=== PATIENT | female | born 1970 | race African-American/Black ===

== ENCOUNTER 2021-02-22 07:36 | Outpatient (CLI) | payer OTHER, SELFPAY | END 2021-02-22 07:37 | disposition home or self-care (01) | LOC: ANHAUDIO 07:39 | PROVIDERS: Visit Provider Nurse Practitioner Family | DX: H91.90 Unspecified hearing loss, unspecified ear (principal) | CPT/HCPCS: 92537; 92540; 92546; 92557; 92567 ==

== ENCOUNTER 2024-09-20 11:52 | Outpatient (CLI) | payer MEDICARE, MEDICAID, SELFPAY ==
--- NOTE | ~2024-09-20 | XR_ITS ---
Lumbosacral Spine: AP and lateral views Clinical History: Pain Findings: The normal lordotic curve is maintained. The vertebral bodies and posterior elements are i ntact. The intervertebral disc spaces are preserved. There is mild to moderate facet arthropathy at the lower lumbar spine. The sacroiliac joints are normally outlined. Impression: Facet arthropathy at the lower lumbar spine, as above. Reviewed, dictated and finalized at location . Impression: Facet arthropathy at the lower lumbar spine, as above.
--- OUTSIDE RECORDS SUMMARY | 2024-09-20 11:58 | XMS_ITS | Encounter Summary ---
Author Organization [facility] Address [address] [place] [address] Phone Care Team Providers Care Mammographer Name Role Phone Jackeline Dimas PROSTHETIC AIDES TEACHER, CORPORATE STRATEGY ASSOCIATE Primary Care Provider Fiona Martinez REVOLVING INVENTORY CLERK Unavailable Unavailab Phil Ellis MD Unavailable [phone] Rajiv Mccormack NP Unavailable Unavailable Renita Quezada RN Unavailable Unavailable Alize Acosta PROSTHETIC AIDES TEACHER, CORPORATE STRATEGY ASSOCIATE Unavailable [phone] Dayo Chaney MD Unavailable Juanita Hauser RN Unavailable Unavaila David Martinez MD Unavailable Emilia Tang MD Primary Care Provider [phone] Maurilio Farley MD Unavailable Candida Turner MD Unavailable Rebeka Trinidad MD Primary Care Provider + [phone] Dom Quiñonez MD Unavailable Rachelle Nava PROSTHETIC AIDES TEACHER, SHEET METAL FORMER Unavailable + [phone] Irais Naylor PROSTHETIC AIDES TEACHER, CORPORATE STRATEGY ASSOCIATE Unavailable + [phone] AhmetAngélicamando Littlejohn PROSTHETIC AIDES TEACHER, CORPORATE STRATEGY ASSOCIATE Primary Care Provider + [phone] Rebeka Trinidad MD Primary Care Provider + [phone] Lorri Leo PROSTHETIC AIDES TEACHER, CORPORATE STRATEGY ASSOCIATE Primary Care Provider [phone] Sharri Gaspar MD Unavailable Tani Biggs [facility] Primary Care Provider + [phone] Amber Aldrich PROSTHETIC AIDES TEACHER, CORPORATE STRATEGY ASSOCIATE Unavailable Reason for Visit * Reason Comments Medication Refill Encounter Details Date Type Department Care Team (Late Contact Info) Description 07/09/2020 Refill [facility] Primary [facility] - [place] [address] [place] [address] Jackeline Dimas, PROSTHETIC AIDES TEACHER, [facility] [address] [place] [address] Medication Refill Social History Tobacco Use Types Packs/Day Years Used Date Smoking Tobacco: Every Day Cigarettes 0.5 15 Smokeless Tobacco: Never Alcohol Use Standard Drinks/Week Comments Yes 0 (1 standard drink = 0.6 oz pur e alcohol) occasionally PHQ-2 Answer Date Recorded Total Score - Questions 1-9 0 08/09 Comments No Sex and Gender Information Value Date Recorded Sex Assigned at Female 10/21/2022 4:24 PM CDT Legal Sex Female 10:38 PM CDT Gender Identity Female 10/21/2022 4:24 PM CDT Sexual Orientation Not on file 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 No / Unsure 06/19/2020 1:57 PM CDT documented as of this encounter Plan of Treatment Upcoming Encounters Date Type Department Care Team (Late Contact Info) Description 09/21/2024 3:20 PM CDT Office Visit [facility] Oncology Services [address] [place] [id number] Melony Asif, ESTRELLITA [address] [place] [address] Discharge Disposition: Discharged to home or Selfcare 10/18/2024 1:00 PM CDT Office Visit [facility] - Pulmonology & Sleep Medicine - [place] [address] [place] [phone] Dom Quiñonez MD [address] [place] [address] 10/26/2024 1:00 PM CDT Office Visit [facility] - Cardiology - [place] [address] [place] [address] Amber Aldrich, PROSTHETIC AIDES TEACHER, CORPORATE STRATEGY ASSOCIATE [address] [place] [phone] 11/09/2024 2:00 PM CDT Telemedicine [facility] [address] [place] [address] Alize Acosta, PROSTHETIC AIDES TEACHER, CORPORATE STRATEGY ASSOCIATE [address] [place] [address] 11/18/2024 3:45 PM CDT Office Visit [facility] - Endocrinology - [place] [address] [place] [address] David Salmon MD [address] [address] 03/04/2025 3:10 PM TRANSPORTATION OFFICER Lab [facility] - Primary Care - [place] [facility] [place] [address] [place] [facility] 03/04/2025 3:30 PM TRANSPORTATION OFFICER [facility] - [facility] - [place] [address] [place] [address] Tani Biggs PAC [address] [place] [address] documented as of this encounter Visit Diagnoses Not on filedocumented in this encounter Additional Health Concerns Infection Onset Date Last Indicated Resolved Time COVID - 19 01/08/2021 01/08/2021 01/28/2021 12:1 6 AM TRANSPORTATION OFFICER COVID - 19 03/12/2021 03/12/2021 04/01/2021 12:1 6 AM TRANSPORTATION OFFICER COVID - 19 12/15/2021 12/15/2021 12/15/2021 7:26 PM CDT COVID - 19 Confirmed 12/15/2021 12/15/2021 022 12:16 AM CDT COVID - 19 04/18/2024 04/18/2024 04/18/2024 10:4 7 PM TRANSPORTATION OFFICER Respiratory Rule-Out 05/06/2024 05/06/2024 025 9:20 AM TRANSPORTATION OFFICER COVID - 19 05/06/2024 05/06/2024 05/06/2024 9:19 AM TRANSPORTATION OFFICER Assessment Noted Time PHQ-9 Depression Total Score: 0 09/01/19 20 11:58 AM CDT documented as of this encounter Care Teams Mammographer Relationship Specialty Start Date End Date Jackeline Dimas, PROSTHETIC AIDES TEACHER, CORPORATE STRATEGY ASSOCIATE [address] [place] [address] PCP - General Advanced Practice Nurse 07/31/17 Emilia Tang MD [address] [place], [place] [id number] PCP - General Family Medicine 06/07/22 03/25/23 Rebeka Trinidad MD [address] [place] [address] PCP - General Family Medicine 03/26/23 03/29/24 Lorri Leo APRN, CORPORATE STRATEGY ASSOCIATE [address] [place] [address] PCP - General Certified Nurse Practitioner 03/30/24 04/20/24 Rebeka Trinidad MD [address] [place] [address] PCP - General Family Medicine 04/21/24 04/21/24 Lorri Leo APRN, CORPORATE STRATEGY ASSOCIATE [address] [place] [address] PCP - General Certified Nurse Practitioner 04/22/24 05/30/24 Tani Biggs PAC [address] [place] [phone] PCP - General Physician Design Agent 05/31/24 Fiona Martinez LSW [place] Sales And Customer Relations Rep 03/01/21 08/23/21 Phil Jacobo MD [address] [place] [address] Consulting Physician Neurology 03/07/21 Rajiv Mccormack, INSTRUCTIONAL RESOURCE TEACHER [address] [place] [address] Nurse Practitioner Gastroenterology 03/07/21 Renita Quezada RN [place] Sales And Customer Relations Rep 05/09/21 08/23/21 Alize Acosta, PROSTHETIC AIDES TEACHER, CORPORATE STRATEGY ASSOCIATE [address] [place] [address] [facility] AIRCRAFT LANDING GEAR INSPECTOR Advanced Practice Nurse 08/30/21 Dayo Chaney MD [address] [place] [address] Tennis Director Cardiovascular Disease - Cardiology 09/20/21 02/12/24 Juanita Mercado RN [place] Registered Nurse Cardiology 12/24/21 02/12/24 David Salmon MD [address] [phone] Consulting Physician Endocrinology 01/15/22 Maurilio Farley MD [address] [address] Consulting Physician Colon and Rectal Surgery 09/20/22 Physician, Candida Davis MD [address] [place] [address] Family Medicine 01/25/22 03/18/23 Dom Quiñonez MD [address] [place] [phone] Consulting Physician Pulmonary Disease 11/19/21 Rachelle Nava, PROSTHETIC AIDES TEACHER, SHEET METAL FORMER [address] [place] [address] Nurse Practitioner Advanced Practice Nurse 07/19/22 Irais Naylor PROSTHETIC AIDES TEACHER, CORPORATE STRATEGY ASSOCIATE [address] [facility] [address] [place] [address] Nurse Practitioner Cardiology 06/27/23 07/29/24 Sharri Gaspar MD [address] [facility] [place] [address] Consulting Physician Cardiology 04/26/24 Amber Aldrich APRN, CORPORATE STRATEGY ASSOCIATE [address] [place] [address] Nurse Practitioner Cardiology 07/30/24 documented as of this encounter
--- OUTSIDE RECORDS SUMMARY | 2024-09-20 11:58 | XMS_ITS | Encounter Summary ---
Author Organization [facility] Address [address] [place] [address] Phone Care Team Providers Care Tool And Die Maker/Designer Name Role Phone Phil Jacobo MD Unavailable [phone] Rajiv Mccormack NP Unavailable Unavailable Alize Acosta APRN, JACKER Unavailable David Salmon MD Unavailable Maurilio Farley MD Unavailable Dom Quiñonez MD Unavailable Rachelle Nava TASSEL MAKER, INTERVENTION ANALYST Unavailable + [phone] Irais Naylor TASSEL MAKER, JACKER Unavailable + [phone] Lorri Leo APRN, JACKER Primary Care Provider + [phone] Rebeka Trinidad MD Primary Care Provider + [phone] Lorri Leo TASSEL MAKER, JACKER Primary Care Provider + [phone] Sharri Gaspar MD Unavailable Tani Biggs PAC Primary Care Provider [phone] Amber Aldrich TASSEL MAKER, JACKER Unavailable Reason for Referral * PT/OT/ST (Routine) - Open Specialty Diagnoses / Procedures Referred By Harika t Referred To Contact Physical Therapy Diagnoses Spinal stenosis, lumbar region without neurogenic claudication Li Castañeda APN, JACKER [address] [place] [address] Phone: tel: fax: [facility] [address] [facility], [address] [address] Phone: tel: fax: Referral ID Status Reason Start Date Expiration Date Visits Re quested Visits Authorized [id number] Open 04/08/2024 50 10 Scheduling Instructions RVISOR DELIVERY DEPARTMENT Encounter Details Date Type Department Care Team (Latest Contact Info) Description 04/08/2024 Transcribe Orders [facility] [address] [place] [id number] Li Castañeda APN, JACKER [address] [place] [address] Spinal stenosis, lumbar region without neurogenic claudication (Primary Dx) Social History Tobacco Use Types Packs/Day Years Used Date Smoking Tobacco: Every Day Cigarettes 1 37.1 Started: 1984; Last attempted to quit: 04/12/2021 Smokeless Tobacco: Never Alcohol Use Standard Drinks/Week Comments Not Currently 0 (1 standard drink = 0.6 oz pur e alcohol) Last drink in 2020 [facility] Utilities Answer Date Recorded In the past 12 months has [employer], gas, oil, or water Shock Treatment Management threatened to shut off services in your home? No 03/22/2024 Social Connection and Isolation Panel Answer Date Recorded In a typical week, how many times do you talk on the phone with family, friends, or neighbors? Once a week 03/22/19 How often do you get togethe r with friends or relatives? Never 03/22/2024 How often do you attend chur ch or alevism services? 1 to 4 times per year 03/22/2024 Do you belong to any clubs o r organizations such as mosque groups, unions, fraternal or athletic groups, or school groups? No 03/22/2024 How often do you attend meet ings of the clubs or organizations you belong to? Never 03/22/2024 Are you , , di vorced, , never , or living with a partner? 03/22/2024 AUDIT-C Answer Date Recorded Q1: How often do you have a drink containing alcohol? Never 03/22/2024 Q2: How many drinks containi ng alcohol do you have on a typical day when you are drinking? Patient does not drink Q3: How often do you have si x or more drinks on one occasion? Never 03/22/2024 Overall Financial Resource Strain (CARDIA) Answe r Date Recorded How hard is it for you to pa y for the very basics like food, housing, medical care, and heating? Very hard 03/22/2024 PHQ-2 Answer Date Recorded Total Score - Questions 1-9 21 03/10 [facility] - Occupational Stress Questionnaire Answer Date Recorded Do you feel stress - tense, restless, nervous, or anxious, or unable to sleep at night because your mind is troubled all the time - these days? Very much 03/22/2024 Exercise Vital Sign Answer Date Recorde d On average, how many days pe r week do you engage in moderate to strenuous exercise (like a brisk walk)? 7 days 03/22/2024 On average, how many minutes do you engage in exercise at this level? 20 min 03/22/2024 Hunger Vital Sign Answer Date Recorded Within the past 12 months, y ou worried that your food would run out before you got the money to buy more. Often true 03/22/19 25 Within the past 12 months, t he food you bought just didn't last and you didn't have money to get more. Often true 03/22/2024 PRAPARE - Transportation Answer Date Re corded In the past 12 months, has l ack of transportation kept you from medical appointments or from getting medications? Yes 03/10 In the past 12 months, has l ack of transportation kept you from meetings, work, or from getting things needed for daily living? Yes 03/22/2024 Housing Stability Vital Sign Answer Jovany e Recorded In the last 12 months, was t here a time when you were not able to pay the mortgage or rent on time? Yes 03/24/2023 In the last 12 months, how many places have you lived? 1 03/24/2023 In the last 12 months, was t here a time when you did not have a steady place to sleep or slept in a halfway (including now)? No 03/24/2023 Housing Stability Vital Sign Answer Jovany e Recorded In the last 12 months, was t here a time when you were not able to pay the mortgage or rent on time? Yes 03/22/2024 In the past 12 months, how m any times have you moved where you were living? 0 03/22/2024 At any time in the past 12 m [facility], were you homeless or living in a halfway (including now)? No 03/22/2024 Education Answer Date Recorded What is the highest level of school you have completed or the highest degree you have received? 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 [employer] Not on file Not on file Not on file documented as of this encounter Plan of Treatment Upcoming Encounters Date Type Department Care Team (Late st Contact Info) Description 09/21/2024 3:20 PM CDT [facility] [address] [place] [id number] Melony Asif Stacey, PAC [address] [place] [address] Discharge Disposition: Discharged to home or Selfcare 10/18/2024 1:00 PM CDT Office Visit [facility] - Pulmonology & [facility] Medicine - [address] [place] [phone] Dom Quiñonez MD [address] [place] [address] 10/26/2024 1:00 PM CDT [facility] [address] [place] [address] Amber Aldrich, TASSEL MAKER, JACKER [address] [place] [address] 11/09/2024 2:00 PM CDT Telemedicine [facility] [address] [place] [address] Alize Acosta, TASSEL MAKER, JACKER [address] [place] [address] 11/18/2024 3:45 PM CDT Office Visit [facility] - Endocrinology - [address] [place] [address] David Salmon MD [address] [address] 03/04/2025 3:10 PM SUPERVISOR DELIVERY DEPARTMENT Lab [facility] Primary Care - [place] [address] [place] [address] [place] Colon [facility] 03/04/2025 3:30 PM SUPERVISOR DELIVERY DEPARTMENT Office Visit [facility] Primary [facility] - [place] [address] [place] [address] Tani Biggs PAC [address] [place] [address] Scheduled Referrals Name Type Priority Associated Diagnoses Orde r Schedule PHYSICAL THERAPY REFERRAL Outpatient Referral Routine Spinal stenosis, lumbar region without neurogenic claudication Expected: 04/08/2024, Expires: 04/08/2025 documented as of this encounter Goals Goal Patient Goal Type Associated Problems Recent Progress Patient-Stated? Author ACTIVITY Activity No change(08/08 2:42 PM CDT) Yes Maritza Vanegas RN Note: Bonny will walk five days a week. Goal Reviewed with: Bonny Readiness to change: Department associated with goal: [facility] Steps to achieve goal: Walking 5 days a week I want to be able to be around people and feel less depressed. Behavioral Health Worsening(0 09/22/2023 3:12 PM CDT) Yes Hilda Tinajero [facility] Note: Goal/Objective: Decrease symptoms of depression and anxiety. Anticipated Time Frame for Goal Completion: 3 months Goal Reviewed with: patient Readiness to change: Thinking about making a change Department associated with goal: [facility] Steps to achieve goal: will attend counseling/psychotherapy sessions at least once monthly, at least 6 sessions, utilizing individual and/or group sessions to express thoughts and feelings. to identify, verbalize and process at least three contributing factors/triggers to anxiety and depression. to identify and verbalize at least three actions/skills to prevent and/or cope with anxiety and depression. to put into action, at least one time weekly, for one month, an action/skill to prevent and or cope with anxiety and depression. Chronic Disease Management Chronic Disease Management Improving(0 12/08/2023 2:39 PM CDT) No Renita Quezada RN Note: Goal: To manage my high blood pressure with medications and lower salt intake to prevent any setbacks. Anticipated Completion Date: August Patient's Preferred Goal: Standard Challenges/Barriers: Not watching salt intake. Readiness to change: Thinking about making a change Notify Care Team if: You develop a severe headache, nosebleed, dizziness, confusion, or drowsiness. You have chest pain/discomfort or shortness of breath. Your BP has been running high consistently. Short Term Goals: 1. I will take my Cardizem, Losartan, and Lasix as directed by my doctor. 2. I will report any symptoms of high blood pressure to my doctor as listed above. 3. I will decrease my salt (sodium) intake in my diet and avoid adding salt to my foods. 4. I will avoid processed foods and fried foods. 5. I will follow up with my doctors as recommended. Chronic Disease Management Chronic Disease Management On track(12/21 2:27 PM CDT) Xiomy Gunderson, RN Note: Goal: To effectively manage hypertension at <130/80 to reduce risk of ED usage and hospitalization [facility] Provider Review date: 02/06/23 Challenges/Barriers: Lack of Education Readiness to change: Ready to change Notify Care Team if: If systolic (top number) blood pressure is greater than 150 Any vision changes such as blurry or double vision; any headaches, any chest pain High blood pressure increases your risk of stroke: signs and symptoms of stroke such as: Sudden onset of numbness, tingling, weakness, or loss of movement on one side Sudden vision changes; trouble speaking, confusion Short Term Goals: I will check my blood pressure daily, and record my results in my tablet I will take my blood pressure and heart medications daily and as needed as ordered by my provider I will not add salt to my plated food. I will not eat foods that have a lot of salt. These include olives, pickles, smoked meats, and salted potato chips. I will limit how much caffeine I get in my diet. I will switch to caffeine-free products. I will reduce my weight by increasing exercise to 20 minutes at least twice a day, three times a week. I will eat fruits and vegetables at least twice a day I will reduce my salt intake by reading food labels and selecting reduced sodium labeled items that have 140 mg or less per serving I will keep my lipids at goal LDL <70 I will engage with healthy diet/exercise/sleep I will reduce stress by increasing activity Chronic Disease Management Chronic Disease Management Worsening(0 08/30/2024 1:58 PM CDT) Xiomy Gunderson RN Note: Goal: To manage my chronic heart failure by taking my medications, making healthy choices, and monitoring my vital signs to avoid ED use and hospitalization for heart failure [facility] Provider Review Date: 09/23/23 Challenges/Barriers: Lack of Education Readiness to change: Ready to change Notify Care Team if: I become shorter of breath with exertion or rest. I gain more than 3 lbs. in 1 day, and 5 lbs. in a week. Shortness of breath that wakes you up at night or when you are laying down. Shortness of breath that wakes you up at night or when you are laying down Short Term Goals: I will take my heart failure medications daily and as needed as my provider has ordered I will weigh myself daily at the same time, in the same clothes, and record my results in my tablet I will check my body daily for increased swelling and tightness, and if swollen more than usual, I will call my [facility] nurse. I will avoid NSAIDs (ibuprofen, Naproxen, Aleve, Advil, Motrin, Celebrex, Vioxx, Meloxicam) I will maintain a healthy weight I will avoid alcohol I will follow a 2000mg Low Sodium diet Depression Depression Improving(0 03/15/2022 2:27 PM SUPERVISOR DELIVERY DEPARTMENT) No Breanne Saldana, BOAT CLEANING SUPERVISOR Note: Goal/Objective: Decrease symptoms of depression associated with grief and loss as well as the increase of anxiety and panic with follow up with out patient counseling. Anticipated Time Frame for Goal Completion: 2 week Constipation General Improving(0 12/08/2023 2:41 PM CDT) Yes Xiomy Linda, RN Note: She has taken Senna, Colace, and Miralax (1 capful daily)--all daily for the past week and no bowel movement in the past 4 days. Recommended she increase her Miralax to 2 capfuls daily until she starts having regular bowel movements and then can titrate back if needed Advanced Care Goals Goal: I will decrease my risk of constipation by eating more fiber, increasing my activity, taking my medications, and avoiding dehydrating drinks. Provider Review Date: 02/06/23 Challenges/Barriers: I continue to be constipated though I take my medications for constipation Readiness to change: Ready to change Notify Care Team if: I see blood in my stool, I am losing weight unintentionally, I have constipation lasting more than 3 weeks, or I have severe pain outside of my baseline when having bowel movements Short Term Goals: I will eat a well balanced diet with lots of fiber- fruits, vegetables, legumes d whole grain breads and cereals. - Fiber and water help the colon pass stool. Most of the fiber in fruits is found in the skins, such as apples. Fruits with seeds you can eat, like strawberries, have the most fiber. I will exercise regularly by doing at least 15 minutes of either chair exercises or walking 3 times a day. I will avoid caffeine containing drinks and alcohol, which can cause dehydration. I will continue to take Miralax daily increasing my amount to 2 capfuls daily until I start having regular bowel movements, and then I can reduce back to 1 capful once my bowel movements are regular. 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 [facility] Program Engagement Healthy Lifestyle Improving(0 08/16/2024 1:04 PM CDT) No Meli Rosenthal, RN Note: Goal: monitor vitals 3 times per week and if symptomatic with [facility] supplied equipment Anticipated Completion Date: duration of program enrollment Patient's Preferred Goal: Standard Challenges/Barriers: technical issues Readiness to change: Making a change Notify Care Team if: technical issues arise Short Term Goals: monitor vitals 3 times per week and if symptomatic with [facility] supplied equipment 2000mg Sodium Daily Sodium Intake On track(08/24 2:42 PM CDT) No Xiomy Linda, SEBASTIAN Note: Goal: I will reduce my sodium intake by following a low sodium diet [facility] Provider Review Date: 02/06/23 Challenges/Barriers: Lack of Education Readiness to change: Ready to change Notify Care Team if: If systolic (top number) blood pressure is greater than 150 Any vision changes such as blurry or double vision; any headaches, any chest pain High blood pressure increases your risk of stroke: signs and symptoms of stroke such as: Sudden onset of numbness, tingling, weakness, or loss of movement on one side Sudden vision changes; trouble speaking, confusion Short Term Goals: I will read food labels for the amount of sodium also known a salt per serving I will choose foods that have less than 140 mg of sodium in each serving I will not eat more than 2,000 mg of sodium in a day I will look for foods that are labeled as sodium free. very low sodium or low sodium I will avoid adding salt when cooking by using salt free seasonings, spices, and herbs I will check the label of seasoning mixes to make sure they do not contain salt. I will limit my intake of processed, canned, or prepackaged foods as many of these foods are high I sodium which is salt. documented as of this encounter Visit Diagnoses Diagnosis Spinal stenosis, lumbar region without neurogenic claudication- Primary documented in this encounter Additional Health Concerns Infection Onset Date Last Indicated Resolved Time COVID - 19 04/18/2024 04/18/2024 04/18/2024 10:4 7 PM SUPERVISOR DELIVERY DEPARTMENT Respiratory Rule-Out 05/06/2024 05/06/2024 025 9:20 AM SUPERVISOR DELIVERY DEPARTMENT COVID - 05/06/2024 05/06/2024 05/06/2024 9:19 AM SUPERVISOR DELIVERY DEPARTMENT Assessment Noted Time PHQ-9 Depression Total Score: 21 025 4:05 PM SUPERVISOR DELIVERY DEPARTMENT documented as of this encounter Care Teams Tool And Die Maker/Designer Relationship Specialty Start Date End Date Lorri Leo APRN, JACKER [address] [place] [address] PCP - General Certified Nurse Practitioner 03/30/24 04/20/24 Rebeka Trinidad MD [address] [place] [address] PCP - General Family Medicine 04/21/24 04/21/24 Lorri Leo APRN, JACKER [address] [place], [place] [id number] PCP - General Certified Nurse Practitioner 04/22/24 05/30/24 Tani Biggs, PAC [address] [place] [address] PCP - General Physician Registered Representative 05/31/24 Phil Jacobo MD [address] [place] [address] Consulting Physician Neurology 03/07/21 Rajiv Mccormack, OPERATOR [address] [place] [address] Nurse Practitioner Gastroenterology 03/07/21 Alize Acosta APRN, JACKER [facility] [place] [address] [facility] ([facility] VISITOR SERVICES ASSOCIATE Advanced Practice Nurse 08/30/21 David Salmon MD [address] [address] Consulting Physician Endocrinology 01/15/22 Maurilio Farley MD [address] [id number] Consulting Physician Colon and Rectal Surgery 09/20/22 Dom Quiñonez MD [address] [place] [address] Consulting Physician Pulmonary Disease 11/19/21 Rachelle Nava APRN, INTERVENTION ANALYST [address] [facility] [address] Nurse Practitioner Advanced Practice Nurse 07/19/22 Irais Naylor APRN, JACKER [address] [facility] [address] [place] [address] Nurse Practitioner Cardiology 06/27/23 07/29/24 Sharri Gaspar MD [address] [place] [address] Consulting Physician Cardiology 04/26/24 Amber Aldrich APRN, JACKER [address] [facility] [place] [address] Nurse Practitioner Cardiology 07/30/24 documented as of this encounter
--- OUTSIDE RECORDS SUMMARY | 2024-09-20 11:58 | XMS_ITS | Encounter Summary ---
Author Organization [facility] Address [address] [place] [address] Phone Care Team Providers Care Landfill Grader Name Role Phone Jackeline Dimas SUPPLY CHAIN TECHNICIAN, CORPORATE PHYSICAL SECURITY SUPERVISOR Primary Care Provider Fiona Martinez PHOTOSTATIC COPY MAKER Unavailable Unavailab Phil Ellis MD Unavailable [phone] Rajiv Mccormack NP Unavailable Unavailable Renita Quezada RN Unavailable Unavailable Alize Acosta SUPPLY CHAIN TECHNICIAN, CORPORATE PHYSICAL SECURITY SUPERVISOR Unavailable [phone] Dayo Chaney MD Unavailable Juanita Hauser RN Unavailable Unavaila David Martinez MD Unavailable Emilia Tang MD Primary Care Provider [phone] Maurilio Farley MD Unavailable Candida Turner MD Unavailable Rebeka Trinidad MD Primary Care Provider + [phone] Dom Quiñonez MD Unavailable Rachelle Nava SUPPLY CHAIN TECHNICIAN, SENIOR SQL SERVER DBA Unavailable + [phone] Irais Naylor SUPPLY CHAIN TECHNICIAN, CORPORATE PHYSICAL SECURITY SUPERVISOR Unavailable + [phone] Lorri Leo Annetta SUPPLY CHAIN TECHNICIAN, CORPORATE PHYSICAL SECURITY SUPERVISOR Primary Care Provider + [phone] Rebeka Trinidad MD Primary Care Provider [phone] AhmetAngélicamando Littlejohn SUPPLY CHAIN TECHNICIAN, CORPORATE PHYSICAL SECURITY SUPERVISOR Primary Care Provider [phone] Sharri Gaspar MD Unavailable Tani Biggs [facility] Primary Care Provider + [phone] Amber Aldrich SUPPLY CHAIN TECHNICIAN, CORPORATE PHYSICAL SECURITY SUPERVISOR Unavailable Reason for Visit * Reason Comments Medication Refill Encounter Details Date Type Department Care Team (Late st Contact Info) Description 07/12/2020 Refill [facility] - [facility] - [place] [address] [place] [address] Jackeline Dimas, SUPPLY CHAIN TECHNICIAN, [facility] [address] [place] [address] Medication Refill Social History Tobacco [...] 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 No / Unsure 06/19/2020 1:57 PM CDT documented as of this encounter Miscellaneous Notes * Telephone Encounter - Yesi Sheth RN - 07/12/2020 9:21 AM CDT Medication approved and signed per standing order protocol. documented in this encounter Plan of Treatment Upcoming Encounters Date Type Department Care Team (Late st Contact Info) Description 09/21/2024 3:20 PM CDT [facility] [address] [place] [address] Melony Asif Stacey, PAC [address] [place] [address] Discharge Disposition: Discharged to home or Selfcare 10/18/2024 1:00 PM CDT Office Visit [facility] - Pulmonology & Sleep Medicine [facility] [address] [place] [address] Dom Quiñonez MD [address] [place] [address] 10/26/2024 1:00 PM CDT Office Visit [facility] - Cardiology - [place] [address] [place] [address] Amber Aldrich APRN, CORPORATE PHYSICAL SECURITY SUPERVISOR [address] [place] [address] 11/09/2024 2:00 PM CDT Telemedicine [facility] [address] [place] [address] Alize Acosta, SUPPLY CHAIN TECHNICIAN, CORPORATE PHYSICAL SECURITY SUPERVISOR [address] [place] [address] 11/18/2024 3:45 PM CDT Office Visit [facility] - Endocrinology - [place] [address] [place] [address] David Salmon MD #[address] [address] 03/04/2025 3:10 PM INVESTMENT BANKING ASSOCIATE [facility] [place] [address] [place] [address] [facility], [facility] 03/04/2025 3:30 PM INVESTMENT BANKING ASSOCIATE [facility] [place] [address] [place] [address] Tani Biggs PAC [address] [place] [address] documented as of this encounter Visit Diagnoses Not on filedocumented in this encounter Additional Health Concerns Infection Onset Date Last Indicated Resolved Time COVID - 19 01/08/2021 01/08/2021 01/28/2021 12:1 6 AM INVESTMENT BANKING ASSOCIATE COVID - 19 03/12/2021 03/12/2021 04/01/2021 12:1 6 AM INVESTMENT BANKING ASSOCIATE COVID - 19 12/15/2021 12/15/2021 12/15/2021 7:26 PM CDT COVID - 19 Confirmed 12/15/2021 12/15/2021 022 12:16 AM CDT COVID - 19 04/18/2024 04/18/2024 04/18/2024 10:4 7 PM INVESTMENT BANKING ASSOCIATE Respiratory Rule-Out 05/06/2024 05/06/2024 025 9:20 AM INVESTMENT BANKING ASSOCIATE COVID - 19 05/06/2024 05/06/2024 05/06/2024 9:19 AM INVESTMENT BANKING ASSOCIATE Assessment Noted Time PHQ-9 Depression Total Score: 0 09/01/19 20 11:58 AM CDT documented as of this encounter Care Teams Landfill Grader Relationship Specialty Start Date End Date Jackeline Dimas, SUPPLY CHAIN TECHNICIAN, CORPORATE PHYSICAL SECURITY SUPERVISOR [address] [place] [address] PCP - General Advanced Practice Nurse 07/31/17 Emilia Tang MD [address] [place] [address] PCP - General Family Medicine 06/07/22 03/25/23 Rebeka Trinidad MD [address] [place] [address] PCP - General Family Medicine 03/26/23 03/29/24 Lorri Loe APRN, CORPORATE PHYSICAL SECURITY SUPERVISOR [address] [place] [address] PCP - General Certified Nurse Practitioner 03/30/24 04/20/24 Rebeka Trinidad MD [address] [place] [address] PCP - General Family Medicine 04/21/24 04/21/24 Lorri Leo APRN, CORPORATE PHYSICAL SECURITY SUPERVISOR [address] [place] [address] PCP - General Certified Nurse Practitioner 04/22/24 05/30/24 Tani Biggs PAC [address] [place] [address] PCP - General Physician Hvac Tech 05/31/24 Fiona Martinez, PHOTOSTATIC COPY MAKER [place] Marketing Budget Analyst 03/01/21 08/23/21 Phil Jacobo MD [address] [place] [address] Consulting Physician Neurology 03/07/21 Rajiv Mccormack, RE RECORDING MIXER [address] [place] [address] Nurse Practitioner Gastroenterology 03/07/21 Renita Quezada, RN [place] Marketing Budget Analyst 05/09/21 08/23/21 Alize Acosta, SUPPLY CHAIN TECHNICIAN, CORPORATE PHYSICAL SECURITY SUPERVISOR [address] [place] [address] Virtual [facility] (VAC) HEALTH AND WELLNESS COORDINATOR Advanced Practice Nurse 08/30/21 Dayo Chaney MD [address] [place] [address] Milk Route Supervisor Cardiovascular Disease - Cardiology 09/20/21 02/12/24 Juanita Mercado RN [place] Registered Nurse Cardiology 12/24/21 02/12/24 David Salmon MD #[address] [phone] Consulting Physician Endocrinology 01/15/22 Maurilio Farley MD #[address] [address] Consulting Physician Colon and Rectal Surgery 09/20/22 Physician, Candida Davis MD [address] [place] [address] Family Medicine 01/25/22 03/18/23 Dom Quiñonez MD [address] [place] [address] Consulting Physician Pulmonary Disease 11/19/21 Rachelle Nava, SUPPLY CHAIN TECHNICIAN, SENIOR SQL SERVER DBA [address] [place] [address] Nurse Practitioner Advanced Practice Nurse 07/19/22 Irais Naylor APRN, CORPORATE PHYSICAL SECURITY SUPERVISOR [address] [facility], [facility] [address] [place] [address] Nurse Practitioner Cardiology 06/27/23 07/29/24 Sharri Gaspar MD 2 [facility] [place] [facility], [place] [place] [address] Consulting Physician Cardiology 04/26/24 Amber Aldrich APRN, CORPORATE PHYSICAL SECURITY SUPERVISOR [address] [facility] [place] [address] Nurse Practitioner Cardiology 07/30/24 documented as of this encounter
--- OUTSIDE RECORDS SUMMARY | 2024-09-20 11:58 | XMS_ITS | Encounter Summary ---
Author Organization [facility] Address [address] [place] [address] Phone Care Team Providers Care Digital Media Associate Name Role Phone Phil Jacobo MD Unavailable [phone] Rajiv Mccormack NP Unavailable Unavailable Alize Acosta COMPUTER EDUCATION TEACHER, VICE PRESIDENT TALENT MANAGEMENT Unavailable [phone] David Salmon MD Unavailable Maurilio Farley MD Unavailable Dom Quiñonez MD Unavailable Rachelle Nava COMPUTER EDUCATION TEACHER, AGRICULTURAL CONSULTANT Unavailable + [phone] Irais Naylor COMPUTER EDUCATION TEACHER, VICE PRESIDENT TALENT MANAGEMENT Unavailable + [phone] Rebeka Trinidad MD Primary Care Provider + [phone] Lorri Leo COMPUTER EDUCATION TEACHER, VICE PRESIDENT TALENT MANAGEMENT Primary Care Provider + [phone] Sharri Gaspar MD Unavailable Tani Biggs PAC Primary Care Provider [phone] Amber Aldrich COMPUTER EDUCATION TEACHER, VICE PRESIDENT TALENT MANAGEMENT Unavailable Encounter Details Date Type Department Care Team (Late st Contact Info) Description 04/21/2024 Telephone [facility] - Cancer Center Oncology Services [address] [place] [address] Melony Asif Stacey, PAC [address] [place] [address] Social History Tobacco Use Types Packs/Day Years Used Date Smoking Tobacco: Every Day Cigarettes 1 37.1 Started: 1984; Last attempted to quit: 04/12/2021 Smokeless Tobacco: Never Alcohol Use Standard Drinks/Week Comments Not Currently 0 (1 standard drink = 0.6 oz pur e alcohol) Last drink in 2020 [facility] Utilities Answer Date Recorded In the past 12 months has e electric, gas, oil, or water company threatened to shut off services in your home? No 03/22/2024 Social Connection and Isolation Panel Answer Date Recorded In a typical week, how many times do you talk on the phone with family, friends, or neighbors? Once a week 03/22/19 How often do you get togethe r with friends or relatives? Never 03/22/2024 How often do you attend chur ch or cheondoism services? 1 to 4 times per year 03/22/2024 Do you belong to any clubs o r organizations such as tenriism groups, unions, fraternal or athletic groups, or [...] Date Recorded Total Score - Questions 1-9 19 /0 06/2024 [facility] - Occupational Stress Questionnaire Answer Date Recorded [...] place to sleep or slept in a usp (including now)? No 03/24/2023 Housing Stability Vital Sign Answer Jovany e Recorded In the last 12 months, was t here a time when you were not able to pay the mortgage or rent on time? Yes 03/22/2024 In the past 12 months, how m any times have you moved where you were living? 0 03/22/2024 At any time in the past 12 m [facility], were you homeless or living in a usp (including now)? 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 I reached out to the patient after the PA reviewed her chart informing her to please complete ordered labs. The patient will contact the office to schedule a follow up 3-5 days after lab work. PSYCHIATRIC documented in this encounter Plan of Treatment Upcoming Encounters Date Type Department Care Team (Late st Contact Info) Description 09/21/2024 3:20 PM CDT Office Visit [facility] Oncology Services [address] [place] [address] Melony Asif, [facility] [address] [place] [address] Discharge Disposition: Discharged to home or Selfcare 10/18/2024 1:00 PM CDT Office Visit [facility] - Pulmonology & Sleep Medicine [facility] [address] [place] [address] Dom Quiñonez MD [address] [place] [address] 10/26/2024 1:00 PM CDT [facility] [place] [address] [place] [address] Amber Aldrich, COMPUTER EDUCATION TEACHER, VICE PRESIDENT TALENT MANAGEMENT [address] [place] [address] 11/09/2024 2:00 PM CDT [facility] [address] [place] [phone] Alize Acosta, COMPUTER EDUCATION TEACHER, VICE PRESIDENT TALENT MANAGEMENT [address] [place] [address] 11/18/2024 3:45 PM CDT Office Visit [facility] - Endocrinology - [place] [address] [place] [address] David Salmon MD [address] [address] 03/04/2025 3:10 PM RN PSYCHIATRIC Lab [facility] [place] [address] [place] [address] [facility] 03/04/2025 3:30 PM RN PSYCHIATRIC Office Visit [facility] - [place] [address] [place] [address] Tani Biggs PAC [address] [place] [address] documented as of this encounter Goals Goal Patient Goal Type Associated Problems Recent Progress Patient-Stated? Author ACTIVITY Activity No change(08/08 2:42 PM CDT) Yes Maritza Vanegas, RN Note: Bonny will walk five days a week. Goal Reviewed with: Bonny Readiness to change: Department associated with goal[facility] Steps to achieve goal: Walking 5 days a week I want to be able to be around people and feel less depressed. Behavioral Health Worsening(0 09/22/2023 3:12 PM CDT) Yes Hilda Tinajero [facility] Note: Goal/Objective: Decrease symptoms of depression and anxiety. Anticipated Time Frame for Goal Completion: 3 months Goal Reviewed with: patient Readiness to change: Thinking about making a change Department associated with goal: [facility] Steps to achieve goal: [...] Disease Management Improving(0 12/08/2023 2:39 PM CDT) Renita Spann, SEBASTIAN Note: Goal: To manage my high blood [...] Management On track(12/21 2:27 PM CDT) Xiomy Gunderson RN Note: Goal: To effectively manage hypertension [...] Management Worsening(0 08/30/2024 1:58 PM CDT) Xiomy Gunderson, RN Note: Goal: To manage my chronic [...] diet Depression Depression Improving(0 03/15/2022 2:27 PM RN PSYCHIATRIC) No Breanne Saldana, CARD FOLDER Note: Goal/Objective: Decrease symptoms of depression associated [...] Infection Onset Date Last Indicated Resolved Time Respiratory Rule-Out 05/06/2024 05/06/2024 025 9:20 AM RN PSYCHIATRIC COVID - 19 05/06/2024 05/06/2024 05/06/2024 9:19 AM RN PSYCHIATRIC Assessment Noted Time PHQ-9 Depression Total Score: 025 1:00 PM RN PSYCHIATRIC documented as of this encounter Care Teams Digital Media Associate Relationship Specialty Start Date End Date Rebeka Trinidad MD [address] [place] [address] PCP - General Family Medicine 04/21/24 04/21/24 Lorri Leo APRN, VICE PRESIDENT TALENT MANAGEMENT [address] [place], [place] [address] PCP - General Certified Nurse Practitioner 04/22/24 05/30/24 Tani Biggs, PAC [address] [place] [address] PCP - General Physician Bucket Pusher 05/31/24 Phil Jacobo MD [address] [place] [address] Consulting Physician Neurology 03/07/21 Rajiv Mccormack, PLANER STONE [address] [place] [address] Nurse Practitioner Gastroenterology 03/07/21 Alize Acosta, COMPUTER EDUCATION TEACHER, VICE PRESIDENT TALENT MANAGEMENT [address] [place] [address] Virtual [facility] (VAC) AUTOMATIC MACHINES SUPERVISOR Advanced Practice Nurse 08/30/21 David Salmon MD [address] [phone] Consulting Physician Endocrinology 01/15/22 Maurilio Farley MD #[address] [address] Consulting Physician Colon and Rectal Surgery 09/20/22 Dom Quiñonez MD [address] [place] [address] Consulting Physician Pulmonary Disease 11/19/21 Rachelle Nava, COMPUTER EDUCATION TEACHER, AGRICULTURAL CONSULTANT [address] [place] [address] Nurse Practitioner Advanced Practice Nurse 07/19/22 Irais Naylor, COMPUTER EDUCATION TEACHER, VICE PRESIDENT TALENT MANAGEMENT #[address] [address] Nurse Practitioner Cardiology 06/27/23 07/29/24 Sharri Gaspar MD [address] [address] Consulting Physician Cardiology 04/26/24 Amber Aldrich APRN, VICE PRESIDENT TALENT MANAGEMENT [address] [place] [address] Nurse Practitioner Cardiology 07/30/24 documented as of this encounter
--- OUTSIDE RECORDS SUMMARY | 2024-09-20 11:58 | XMS_ITS | Encounter Summary ---
Author Organization [facility] Address [address] [place] [address] Phone Care Team Providers Care Chlorobutadiene Scrubber Operator Name Role Phone Phil Jacobo MD Unavailable [phone] Rajiv Mccormack NP Unavailable Unavailable Alize Acosta APRN, TURBINE ATTENDANT Unavailable [phone] Dayo Chaney MD Unavailable Juanita Hauser RN Unavailable UnavailDavid Alexandre MD Unavailable Maurilio Farley MD Unavailable Rebeka Trinidad MD Primary Care Provider + [phone] Dom Quiñonez MD Unavailable Rachelle Nava QUALITY REP, BUSINESS LOAN PROCESSOR Unavailable + [phone] Irais Naylor QUALITY REP, TURBINE ATTENDANT Unavailable + [phone] Lorri Leo QUALITY REP, TURBINE ATTENDANT Primary Care Provider + [phone] Rebeka Trinidad MD Primary Care Provider + [phone] Lorri Leo QUALITY REP, TURBINE ATTENDANT Primary Care Provider + [phone] Sharri Gaspar MD Unavailable Tani Biggs PAC Primary Care Provider [phone] Amber Aldrich APRN, TURBINE ATTENDANT Unavailable Reason for Visit * Reason Comments Medication Refill Encounter Details Date Type Department Care Team (Late st Contact Info) Description 10/31/2023 Refill [facility] - Neurology [facility] [address] [place] [address] Rachelle Nava, RUSSELL, BUSINESS LOAN PROCESSOR [address] [place] [address] Medication Refill Social History Tobacco Use Types Packs/Day Years Used Date Smoking Tobacco: Former Cigarettes 1 37.1 1 985 - 04/12/2021 Smokeless Tobacco: Never Alcohol Use Standard Drinks/Week Comments Not Currently 0 (1 standard drink = 0.6 oz pur e alcohol) last drank 2020 [facility] Utilities Answer Date Recorded In the past 12 months has [employer] electric, gas, oil, or water company threatened to shut off services in your home? No 09/08/2023 Social Connection and Isolation Panel Answer Date Recorded In a typical week, how many times do you talk on the phone with family, friends, or neighbors? Once a week 09/08/19 24 How often do you get togethe r with friends or relatives? Never 09/08/2023 How often do you attend [facility] or episcopal services? 1 to 4 times per year 09/08/2023 Do you belong to any clubs o r organizations such as yazidi groups, unions, fraternal or athletic groups, or school groups? No 09/08/2023 How often do you attend meet ings of the clubs or organizations you belong to? Never 09/08/2023 Are you , , di vorced, , never , or living with a partner? Patient declined 09/08/2023 AUDIT-C Answer Date Recorded Q1: How often do you have a drink containing alcohol? Never 09/08/2023 Q2: How many drinks containi ng alcohol do you have on a typical day when you are drinking? Patient does not drink Q3: How often do you have si x or more drinks on one occasion? Never 09/08/2023 Overall Financial Resource Strain (CARDIA) Answe r Date Recorded How hard is it for you to pa y for the very basics like food, housing, medical care, and heating? Very hard 09/08/2023 PHQ-2 Answer Date Recorded Total Score - Questions 1-9 18 08/3 [facility] - Occupational Stress Questionnaire Answer Date Recorded Do you feel stress - tense, restless, nervous, or anxious, or unable to sleep at night because your mind is troubled all the time - these days? Very much 09/08/2023 Exercise Vital Sign Answer Date Recorde d On average, how many days pe r week do you engage in moderate to strenuous exercise (like a brisk walk)? 1 day 09/08/2023 On average, how many minutes do you engage in exercise at this level? 10 min 09/08/2023 Hunger Vital Sign Answer Date Recorded Within the past 12 months, y ou worried that your food would run out before you got the money to buy more. Often true 09/08/19 24 Within the past 12 months, t he food you bought just didn't last and you didn't have money to get more. Often true 09/08/2023 PRAPARE - Transportation Answer Date Re corded In the past 12 months, has l ack of transportation kept you from medical appointments or from getting medications? No 03/2023 In the past 12 months, has l ack of transportation kept you from meetings, work, or from getting things needed for daily living? Yes 09/08/2023 Housing Stability Vital Sign Answer Jovany e [...] place to sleep or slept in a long term (including now)? No 03/24/2023 Housing Stability Vital Sign Answer Jovany e Recorded In the last 12 months, was t here a time when you were not able to pay the mortgage or rent on time? Yes 09/08/2023 In the past 12 months, how m any times have you moved where you were living? 0 09/08/2023 At any time in the past 12 m onths, were you homeless or living in a long term (including now)? No 09/08/2023 Education Answer Date Recorded What is the [...] Industry Job Start Date Job End Date [employer] SAND[employer] Not on file Not on file Not on file documented as of this encounter Plan of Treatment Upcoming Encounters Date Type Department Care Team (Late st Contact Info) Description 09/21/2024 3:20 PM CDT [facility] [address] [place] [phone] Melony Asif, ESTRELLITA [address] [place], [place] [id number] Discharge Disposition: Discharged to home or Selfcare 10/18/2024 1:00 PM CDT Office Visit [facility] - Pulmonology & Sleep Medicine [facility] [address] [place] [address] Dom Quiñonez MD [address] [place] [address] 10/26/2024 1:00 PM CDT Office Visit [facility] - Cardiology - [place] [address] [place] [address] Amber Aldrich APRN, TURBINE ATTENDANT [address] [place] [address] 11/09/2024 2:00 PM CDT Telemedicine [facility] [address] [place] [address] Alize Acosta APRN, TURBINE ATTENDANT [address] [place] [address] 11/18/2024 3:45 PM CDT Office Visit [facility] Medical [facility] - Endocrinology - [place] [address] [place] [address] David Salmon MD [address] [address] 03/04/2025 3:10 PM FUNERAL HOME ASSISTANT [facility] Primary [facility] - [place] [address] [place] [address] [facility] 03/04/2025 3:30 PM FUNERAL HOME ASSISTANT Office Visit [facility] [place] [address] [place] [address] Tani Biggs PAC [address] [place] [address] documented as of this encounter Goals Goal Patient Goal Type Associated Problems Recent Progress Patient-Stated? Author ACTIVITY Activity No change(08/08 2:42 PM CDT) Yes Maritza Vanegas, RN Note: Bonny will walk five days a week. Goal Reviewed with: Bonny Readiness to change: Department associated with goal: [facility] Steps to achieve goal: Walking 5 days a week I want to be able to be around people and feel less depressed. Behavioral Health Worsening(0 09/22/2023 3:12 PM CDT) Yes Hilda Tinajero LCPC Note: Goal/Objective: Decrease symptoms of depression and anxiety. Anticipated Time Frame for Goal Completion: 3 months Goal Reviewed with: patient Readiness to change: Thinking about making a change Department associated with goal: [facility] Steps to achieve goal: [...] Improving(0 12/08/2023 2:39 PM CDT) Renita Spann, RN Note: Goal: To manage my high [...] diet Depression Depression Improving(0 03/15/2022 2:27 PM FUNERAL HOME ASSISTANT) No Breanne Saldana LCSW Note: Goal/Objective: Decrease symptoms of depression associated [...] On track(08/24 2:42 PM CDT) No Xiomy Linda RN Note: Goal: I will reduce my sodium [...] 19 04/18/2024 04/18/2024 04/18/2024 10:4 7 PM FUNERAL HOME ASSISTANT Respiratory Rule-Out 05/06/2024 05/06/2024 025 9:20 AM FUNERAL HOME ASSISTANT COVID - 19 05/06/2024 05/06/2024 05/06/2024 9:19 AM FUNERAL HOME ASSISTANT Assessment Noted Time PHQ-9 Depression Total Score: 18 023 9:24 AM CDT documented as of this encounter Care Teams Chlorobutadiene Scrubber Operator Relationship Specialty Start Date End Date Rebeka Trinidad MD [address] [place] [address] PCP - General Family Medicine 03/26/23 03/29/24 Lorri Leo APRN, TURBINE ATTENDANT [address] [place] [address] PCP - General Certified Nurse Practitioner 03/30/24 04/20/24 Rebeka Trinidad MD [address] [place] [address] PCP - General Family Medicine 04/21/24 04/21/24 Lorri Leo APRN, TURBINE ATTENDANT [address] [place] [address] PCP - General Certified Nurse Practitioner 04/22/24 05/30/24 Tani Biggs PAC [address] [place] [address] PCP - General Physician Information Systems Administrator 05/31/24 Phil Jacobo MD [address] [place] [address] Consulting Physician Neurology 03/07/21 Rajiv Mccormack, KELI [address] [place] [address] Nurse Practitioner Gastroenterology 03/07/21 Alize Acosta, RUSSELL, TURBINE ATTENDANT [address] [place] [address] [facility] ([facility]) CORPORATE LEARNING CONSULTANT Advanced Practice Nurse 08/30/21 Dayo Chaney MD [address] [place] [address] Deep Fat Cook Fry Cardiovascular Disease - Cardiology 09/20/21 02/12/24 Juanita Mercado RN [place] Registered Nurse Cardiology 12/24/21 02/12/24 David Salmon MD #[address] [address] Consulting Physician Endocrinology 01/15/22 Maurilio Farley MD #[address] [address] Consulting Physician Colon and Rectal Surgery 09/20/22 Dom Quiñonez MD [address] [place] [address] Consulting Physician Pulmonary Disease 11/19/21 Rachelle Nava APRN, BUSINESS LOAN PROCESSOR [address] [place] [address] Nurse Practitioner Advanced Practice Nurse 07/19/22 Irais Naylor APRN, TURBINE ATTENDANT [address]2 [facility] [address] [place] [address] Nurse Practitioner Cardiology 06/27/23 07/29/24 Sharri Gaspar MD 2 [facility] MAILE [address], LENI. [address] [place] [address] Consulting Physician Cardiology 04/26/24 Amber Aldrich APRN, TURBINE ATTENDANT [address] [place] [address] Nurse Practitioner Cardiology 07/30/24 documented as of this encounter
--- OUTSIDE RECORDS SUMMARY | 2024-09-20 11:58 | XMS_ITS | Encounter Summary ---
Author Organization [facility] Address [address] [place] [address] Phone Care Team Providers Care Molded Goods Operator Name Role Phone Jackeline Dimas FACILITATOR, ORE BRIDGE OPERATOR Primary Care Provider Fiona Martinez TOMBSTONE CARVER Unavailable Unavailab Phil Ellis MD Unavailable [phone] Rajiv Mccormack NP Unavailable Unavailable Renita Quezada RN Unavailable Unavailable Alize Acosta FACILITATOR, ORE BRIDGE OPERATOR Unavailable [phone] Dayo Chaney MD Unavailable Juanita Hauser RN Unavailable Unavaila David Martinez MD Unavailable Emilia Tang MD Primary Care Provider [phone] Maurilio Farley MD Unavailable Candida Turner MD Unavailable Rebeka Trinidad MD Primary Care Provider + [phone] Dom Quiñonez MD Unavailable Rachelle Nava FACILITATOR, PRINTING SUPERVISOR Unavailable + [phone] Irais Naylor FACILITATOR, ORE BRIDGE OPERATOR Unavailable + [phone] AhmetAngélicamando Littlejohn FACILITATOR, ORE BRIDGE OPERATOR Primary Care Provider + [phone] Rebeka Trinidad MD Primary Care Provider + [phone] Lorri Leo FACILITATOR, ORE BRIDGE OPERATOR Primary Care Provider [phone] Sharri Gaspar MD Unavailable Tani Biggs 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 No / Unsure 06/15/2020 6:45 PM CDT documented as of this encounter Plan of Treatment Upcoming Encounters Date Type Department Care Team (Late Contact Info) Description 09/21/2024 3:20 PM CDT Office Visit [facility] Cancer Center Oncology Services [address] [place] [address] Melony Asif, ESTRELLITA [address] [place] [address] Discharge Disposition: Discharged to home or Selfcare 10/18/2024 1:00 PM CDT Office Visit [facility] - Pulmonology & Sleep Medicine - [place] [address] [place] [address] Dom Quiñonez MD [address] [place] [address] 10/26/2024 1:00 PM CDT Office Visit [facility] - Cardiology - [place] [address] [place] [address] Amber Aldrich, FACILITATOR, ORE BRIDGE OPERATOR [address] [place] [address] 11/09/2024 2:00 PM CDT Telemedicine [facility] [address] [place] [address] Alize Acosta, FACILITATOR, ORE BRIDGE OPERATOR [address] [place] [address] 11/18/2024 3:45 PM CDT Office Visit [facility] - Endocrinology - [place] [address] [place] [address] David Salmon MD [address] [address] 03/04/2025 3:10 PM EVENT PLANNING MANAGER Lab [facility] - [facility] [place] [address] [place] [facility] 03/04/2025 3:30 PM EVENT PLANNING MANAGER [facility] - [place] [address] [place] [address] Tani Biggs PAC [address] [place] [address] documented as of this encounter Visit Diagnoses Not on filedocumented in this encounter Additional Health Concerns Infection Onset Date Last Indicated Resolved Time COVID - 19 01/08/2021 01/08/2021 01/28/2021 12:1 6 AM EVENT PLANNING MANAGER COVID - 19 03/12/2021 03/12/2021 04/01/2021 12:1 6 AM EVENT PLANNING MANAGER COVID - 19 12/15/2021 12/15/2021 12/15/2021 7:26 PM CDT COVID - 19 Confirmed 12/15/2021 12/15/2021 022 12:16 AM CDT COVID - 19 04/18/2024 04/18/2024 04/18/2024 10:4 7 PM EVENT PLANNING MANAGER Respiratory Rule-Out 05/06/2024 05/06/2024 025 9:20 AM EVENT PLANNING MANAGER COVID - 19 05/06/2024 05/06/2024 05/06/2024 9:19 AM EVENT PLANNING MANAGER Assessment Noted Time PHQ-9 Depression Total Score: 0 09/01/19 20 11:58 AM CDT documented as of this encounter Care Teams Molded Goods Operator Relationship Specialty Start Date End Date Jackeline Dimas, FACILITATOR, ORE BRIDGE OPERATOR [address] [place] [address] PCP - General Advanced Practice Nurse 07/31/17 Emilia Tang MD [address] [place], [place] [address] PCP - General Family Medicine 06/07/22 03/25/23 Rebeka Trinidad MD [address] [place] [address] PCP - General Family Medicine 03/26/23 03/29/24 Lorri Leo APRN, ORE BRIDGE OPERATOR [address] [place] [address] PCP - General Certified Nurse Practitioner 03/30/24 04/20/24 Rebeka Trinidad MD [address] [place] [address] PCP - General Family Medicine 04/21/24 04/21/24 Lorri Leo APRN, ORE BRIDGE OPERATOR [address] [place] [address] PCP - General Certified Nurse Practitioner 04/22/24 05/30/24 Tani Biggs PAC [address] [place] [address] PCP - General Physician Tin Pourer 05/31/24 Fiona Martinez LSW [place] Tub Operator 03/01/21 08/23/21 Phil Jacobo MD [address] [place] [address] Consulting Physician Neurology 03/07/21 Rajiv Mccormack, REGISTRATION COORDINATOR [address] [place] [address] Nurse Practitioner Gastroenterology 03/07/21 Renita Quezdaa RN [place] Tub Operator 05/09/21 08/23/21 Alize Acosta, FACILITATOR, ORE BRIDGE OPERATOR [address] [place] [address] Virtual [facility] (VAC) RADIOTELEGRAPH OPERATOR SERVICER Advanced Practice Nurse 08/30/21 Dayo Chaney MD [address] [place] [address] Coating Line Worker Cardiovascular Disease - Cardiology 09/20/21 02/12/24 Juanita Mercado RN [place] Registered Nurse Cardiology 12/24/21 02/12/24 Davdi Salmon MD #[address] [phone] Consulting Physician Endocrinology 01/15/22 Maurilio Farley MD #[address] [address] Consulting Physician Colon and Rectal Surgery 09/20/22 Physician, Candida Davis MD [address] [place] [address] Family Medicine 01/25/22 03/18/23 Dom Quiñonez MD [address] [place] [address] Consulting Physician Pulmonary Disease 11/19/21 Rachelle Nava, FACILITATOR, PRINTING SUPERVISOR [address] [place] [address] Nurse Practitioner Advanced Practice Nurse 07/19/22 Irais Naylor FACILITATOR, ORE BRIDGE OPERATOR [address]2 [facility] [address] [place] [address] Nurse Practitioner Cardiology 06/27/23 07/29/24 Sharri Gaspar MD 2 [facility] [address] [address] Consulting Physician Cardiology 04/26/24 Amber Aldrich APRN, ORE BRIDGE OPERATOR [address] [place] [address] Nurse Practitioner Cardiology 07/30/24 documented as of this encounter
--- OUTSIDE RECORDS SUMMARY | 2024-09-20 11:59 | XMS_ITS | Encounter Summary ---
Author Organization [facility] Address [address] [place] [address] Phone Care Team Providers Care Logistics And Planning Manager Name Role Phone Phil Jacobo MD Unavailable [phone] Rajiv Mccormack NP Unavailable Unavailable Alize Acosta APRN, CUSTOMER AGENT Unavailable [phone] Dayo Chaney MD Unavailable Juanita Hauser RN Unavailable UnavailDavid Alexandre MD Unavailable Maurilio Farley MD Unavailable Rebeka Trinidad MD Primary Care Provider + [phone] Dom Quiñonez MD Unavailable Rachelle Nava MECHANIC CHIEF, INSIDE SALES COORDINATOR Unavailable + [phone] Irais Naylor MECHANIC CHIEF, CUSTOMER AGENT Unavailable + [phone] Lorri Leo MECHANIC CHIEF, CUSTOMER AGENT Primary Care Provider + [phone] Rebeka Trinidad MD Primary Care Provider + [phone] Lorri Leo MECHANIC CHIEF, CUSTOMER AGENT Primary Care Provider + [phone] Sharri Gaspar MD Unavailable Tani Biggs [facility] Primary Care Provider + [phone] Amber Aldrich APRN, CNP Unavailable Reason for Visit * Reason Comments Medication Refill Encounter Details Date Type Department Care Team (Late st Contact Info) Description 07/18/2023 Refill [facility] - Primary Care - [place] [address] [place] [address] Rebeka Trinidad MD [address] [place] [address] Medication Refill Social History Tobacco Use Types Packs/Day Years Used Date Smoking Tobacco: Former Cigarettes 1 37.1 1 985 - 04/12/2021 Smokeless Tobacco: Never Alcohol Use Standard Drinks/Week Comments Not Currently 0 (1 standard drink = 0.6 oz pur e alcohol) last drank 2020 [facility] Utilities Answer Date Recorded In the past 12 months has [email or web address] electric, gas, oil, or water [place] threatened to shut off services in your home? No 03/24/2023 Social Connection and Isolation Panel Answer Date Recorded In a typical week, how many times do you talk on the phone with family, friends, or neighbors? Once a week 03/24/2023 How often do you get togethe r with friends or relatives? Never 03/24/2023 How often do you attend [facility] or rastafarian services? More than 4 times per year 03/24/2023 Do you belong to any clubs o r organizations such as sikh groups, unions, fraternal or athletic groups, or school groups? No 03/24/2023 How often do you attend meet ings of the clubs or organizations you belong to? Never 03/24/2023 Are you , , di vorced, , never , or living with a partner? 03/24/2023 AUDIT-C Answer Date Recorded Q1: How often do you have a drink containing alcohol? Never 03/24/2023 Q2: How many drinks containi ng alcohol do you have on a typical day when you are drinking? Patient does not drink Q3: How often do you have si x or more drinks on one occasion? Never 03/24/2023 Overall Financial Resource Strain (CARDIA) Answe r Date Recorded How hard is it for you to pa y for the very basics like food, housing, medical care, and heating? Somewhat hard 03/24/2023 PHQ-2 Answer Date Recorded Total Score - Questions 1-9 18 10/10 [facility] - Occupational Stress Questionnaire Answer Date Recorded Do you feel stress - tense, restless, nervous, or anxious, or unable to sleep at night because your mind is troubled all the time - these days? Very much 03/24/2023 Exercise Vital Sign Answer Date Recorde d On average, how many days pe r week do you engage in moderate to strenuous exercise (like a brisk walk)? 0 days 03/24/2023 On average, how many minutes do you engage in exercise at this level? 10 min 03/24/2023 Hunger Vital Sign Answer Date Recorded Within the past 12 months, y ou worried that your food would run out before you got the money to buy more. Never true 03/24/19 24 Within the past 12 months, t he food you bought just didn't last and you didn't have money to get more. Never true 03/24/2023 PRAPARE - Transportation Answer Date Re corded In the past 12 months, has l ack of transportation kept you from medical appointments or from getting medications? No 03/10 In the past 12 months, has l ack of transportation kept you from meetings, work, or from getting things needed for daily living? No 03/24/2023 Housing Stability Vital Sign Answer [...] place to sleep or slept in a nursing home (including now)? 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 documented in this encounter Plan of Treatment Upcoming Encounters Date Type Department Care Team (Late st Contact Info) Description 09/21/2024 3:20 PM CDT [facility] [address] [place] [address] Melony Asif Stacey, PAC [address] [place] [address] Discharge Disposition: Discharged to home or Selfcare 10/18/2024 1:00 PM CDT [facility] - Pulmonology & [facility] Medicine [facility] [address] [place] [address] Dom Quiñonez MD [address] [place] [address] 10/26/2024 1:00 PM CDT Office Visit [facility] - Cardiology - [place] [address] [place] [phone] Amber Aldrich APRN, CUSTOMER AGENT [address] [place] [address] 11/09/2024 2:00 PM CDT Telemedicine [facility] [address] [place] [address] Alize Acosta, MECHANIC CHIEF, CUSTOMER AGENT [address] [place] [address] 11/18/2024 3:45 PM CDT Office Visit [facility] - Endocrinology - [place] [address] [place] [address] David Salmon MD [address] [address] 03/04/2025 3:10 PM LATHER APPRENTICE Lab [facility] - [place] [address] [place] [address] [facility] 03/04/2025 3:30 PM LATHER APPRENTICE Office Visit [facility] - [place] [address] [place] [address] Tani Biggs, [facility] [address] [place] [address] documented as of this encounter [...] making a change Department associated with goal: [facility] Steps to achieve goal: [...] diet Depression Depression Improving(0 03/15/2022 2:27 PM LATHER APPRENTICE) No Breanne Saldana LCSW Note: Goal/Objective: Decrease [...] Improving(0 08/16/2024 1:04 PM CDT) No Meli Rosenthal RN Note: Goal: monitor vitals 3 times [...] as of this encounter Visit Diagnoses Diagnosis Depression, unspecified depression type documented in this encounter Additional Health Concerns Infection Onset Date Last Indicated Resolved Time COVID - 19 04/18/2024 04/18/2024 04/18/2024 10:4 7 PM LATHER APPRENTICE Respiratory Rule-Out 05/06/2024 05/06/2024 025 9:20 AM LATHER APPRENTICE COVID - 19 05/06/2024 05/06/2024 05/06/2024 9:19 AM LATHER APPRENTICE Assessment Noted Time PHQ-9 Depression Total Score: 18 023 9:24 AM CDT documented as of this encounter Care Teams Logistics And Planning Manager Relationship Specialty Start Date End Date Rebeka Trinidad MD [address] [place] [address] PCP - General Family Medicine 03/26/23 03/29/24 Lorri Leo APRN, CUSTOMER AGENT [address] [place] [address] PCP - General Certified Nurse Practitioner 03/30/24 04/20/24 Rebeka Trinidad MD [address] [place] [address] PCP - General Family Medicine 04/21/24 04/21/24 Lorri Leo APRN, CUSTOMER AGENT [address] [place] [address] PCP - General Certified Nurse Practitioner 04/22/24 05/30/24 Tani Biggs PAC [address] [place] [address] PCP - General Physician Axminster Rug Setter 05/31/24 Phil Jacobo MD [address] [place] [address] Consulting Physician Neurology 03/07/21 Rajiv Mccormack, KELI [address] [place] [address] Nurse Practitioner Gastroenterology 03/07/21 Alize Acosta APRN, CUSTOMER AGENT [address] [place] [address] [facility] ([facility]) LIAISON PLANNER Advanced Practice Nurse 08/30/21 Dayo Chaney MD [address] [place] [address] Machine Packager Cardiovascular Disease - Cardiology 09/20/21 02/12/24 Juanita Mercado RN [place] Registered Nurse Cardiology 12/24/21 02/12/24 David Salmon MD #[address] [address] Consulting Physician Endocrinology 01/15/22 Maurilio Farley MD #[address] [address] Consulting Physician Colon and Rectal Surgery 09/20/22 Dom Quiñonez MD [address] [place] [address] Consulting Physician Pulmonary Disease 11/19/21 Rachelle Nava APRN, INSIDE SALES COORDINATOR [address] [place] [address] Nurse Practitioner Advanced Practice Nurse 07/19/22 Irais Naylor APRN, CUSTOMER AGENT [address] [place] [address] Nurse Practitioner Cardiology 06/27/23 07/29/24 Sharri Gaspar MD 2 [facility] [address], [address] [place] [address] Consulting Physician Cardiology 04/26/24 Amber Aldrich APRN, CUSTOMER AGENT [address] [place] [address] Nurse Practitioner Cardiology 07/30/24 documented as of this encounter
--- OUTSIDE RECORDS SUMMARY | 2024-09-20 11:59 | XMS_ITS | Encounter Summary ---
Author Organization [facility] Address [address] [place] [address] Phone Care Team Providers Care Director Of Safety And Security Name Role Phone Phil Jacobo MD Unavailable [phone] Rajiv Mccormack NP Unavailable Unavailable Alize Acosta ACCOUNTING CLERKS SUPERVISOR, HARDWOOD FLOOR INSTALLER Unavailable [phone] Dayo Chaney MD Unavailable Juanita Hauser RN Unavailable Unavaila David Martinez MD Unavailable Emilia Tang MD Primary Care Provider [phone] Maurilio Farley MD Unavailable PhysicianCandida MD Unavailable Rebeka Trinidad MD Primary Care Provider + [phone] Dom Quiñonez MD Unavailable Rachelle Nava ACCOUNTING CLERKS SUPERVISOR, HOSTAGE NEGOTIATOR Unavailable + [phone] Irais Naylor ACCOUNTING CLERKS SUPERVISOR, HARDWOOD FLOOR INSTALLER Unavailable + [phone] Lorri Leo ACCOUNTING CLERKS SUPERVISOR, HARDWOOD FLOOR INSTALLER Primary Care Provider + [phone] Rebeka Trinidad MD Primary Care Provider + [phone] Lorri Leo ACCOUNTING CLERKS SUPERVISOR, HARDWOOD FLOOR INSTALLER Primary Care Provider + [phone] Sharri Gaspar MD Unavailable Tani Biggs Primary Care Provider + [phone] Valdemar Amber Louise ACCOUNTING CLERKS SUPERVISOR, HARDWOOD FLOOR INSTALLER Unavailable Reason for Visit * Reason Comments Medication Refill Encounter Details Date Type Department Care Team (Late st Contact Info) Description 10/21/2022 Refill [facility] - Primary Care - [place] [address] [place] [address] Jackeline Dimas, ACCOUNTING CLERKS SUPERVISOR, [facility] [address] [place] [address] Medication Refill Social History Tobacco Use Types Packs/Day Years Used Date Smoking Tobacco: Former Cigarettes 1 37.1 1 985 - 04/12/2021 Smokeless Tobacco: Never Alcohol Use Standard Drinks/Week Comments Not Currently 0 (1 standard drink = 0.6 oz pur e alcohol) last drank 2020 PHQ-2 Answer Date Recorded Total Score - Questions 1-9 24 10/2021 Education Answer Date Recorded What is the [...] 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 No / Unsure 10/24/2022 3:19 PM CDT documented as of this encounter Miscellaneous Notes * Telephone Encounter - Adina Barrientos RN - 10/21/2022 9:20 AM CDT Duplicate request. documented in this encounter Plan of Treatment Upcoming Encounters Date Type Department Care Team (Late st Contact Info) Description 09/21/2024 3:20 PM CDT [facility] [address] [place] [address] Melony Asif Stacey, PAC [address] [place] [address] Discharge Disposition: Discharged to home or Selfcare 10/18/2024 1:00 PM CDT [facility] - Pulmonology & Sleep Medicine - [place] [address] [place] [address] Dom Quiñonez MD [address] [place] [address] 10/26/2024 1:00 PM CDT Office Visit [facility] - Cardiology - [place] [address] [place] [address] Amber Aldrich APRN, HARDWOOD FLOOR INSTALLER [address] [place] [address] 11/09/2024 2:00 PM CDT Telemedicine [facility] [address] [place] [address] Alize Acosta, ACCOUNTING CLERKS SUPERVISOR, HARDWOOD FLOOR INSTALLER [address] [place] [address] 11/18/2024 3:45 PM CDT Office Visit [facility] - Endocrinology - [place] [address] [place] [address] David Salmon MD [address] [address] 03/04/2025 3:10 PM SIZER HAND Lab [facility] - [place] [address] [place] [address] Lab, [facility] 03/04/2025 3:30 PM SIZER HAND Office Visit [facility] - [place] [address] [place] [address] Tani Biggs, ESTRELLITA [address] [place] [address] documented as of this encounter Goals Goal Patient Goal Type Associated Problems Recent Progress Patient-Stated? Author Chronic Disease Management Chronic Disease Management Improving(0 [...] diet Depression Depression Improving(0 03/15/2022 2:27 PM SIZER HAND) No Breanne Saldana, SIX SIGMA BLACK TRAINER Note: Goal/Objective: Decrease symptoms of depression associated with grief and loss as well as the increase of anxiety and panic with follow up with out patient counseling. Anticipated Time Frame for Goal Completion: 2 week Constipation General Improving(0 12/08/2023 2:41 PM CDT) Yes Xiomy Linda RN Note: She has taken Senna, Colace, [...] capful once my bowel movements are regular. 2000mg Sodium Daily Sodium Intake On track(08/24 2:42 PM CDT) Xiomy Gunderson RN Note: Goal: I will reduce my [...] 19 04/18/2024 04/18/2024 04/18/2024 10:4 7 PM SIZER HAND Respiratory Rule-Out 05/06/2024 05/06/2024 025 9:20 AM SIZER HAND COVID - 19 05/06/2024 05/06/2024 05/06/2024 9:19 AM SIZER HAND Assessment Noted Time PHQ-9 Depression Total Score: 24 022 3:31 PM SIZER HAND documented as of this encounter Care Teams Director Of Safety And Security Relationship Specialty Start Date End Date Emilia Tang MD [address] [place] [address] PCP - General Family Medicine 06/07/22 03/25/23 Rebeka Trinidad MD [address] [place] [address] PCP - General Family Medicine 03/26/23 03/29/24 Lorri Leo APRN, HARDWOOD FLOOR INSTALLER [address] [place], [place] [address] PCP - General Certified Nurse Practitioner 03/30/24 04/20/24 Rebeka Trinidad MD [address] [place] [address] PCP - General Family Medicine 04/21/24 04/21/24 Lorri Leo APRN, HARDWOOD FLOOR INSTALLER [address] [place] [address] PCP - General Certified Nurse Practitioner 04/22/24 05/30/24 Tani Biggs, PAC [address] [place] [address] PCP - General Physician Mud Analysis Well Logging Operator 05/31/24 Phil Jacobo MD [address] [place] [address] Consulting Physician Neurology 03/07/21 Rjaiv Mccormack, OBSERVER GRAVITY PROSPECTING [address] [place] [address] Nurse Practitioner Gastroenterology 03/07/21 Alize Acosta, ACCOUNTING CLERKS SUPERVISOR, HARDWOOD FLOOR INSTALLER [address] [place] [address] [facility] ([facility]) C.O.D. BILLER Advanced Practice Nurse 08/30/21 Dayo Chaney MD [address] [place] [address] Elevated Guard Cardiovascular Disease - Cardiology 09/20/21 02/12/24 Juanita Mercado RN [place] Registered Nurse Cardiology 12/24/21 02/12/24 David Salmon MD [address] [phone] Consulting Physician Endocrinology 01/15/22 Maurilio Farley MD #[address] [address] Consulting Physician Colon and Rectal Surgery 09/20/22 Physician, Candida Davis MD [address] [place], [place] [address] Family Medicine 01/25/22 03/18/23 Dom Quiñonez MD [address] [place] [address] Consulting Physician Pulmonary Disease 11/19/21 Rachelle Nava, ACCOUNTING CLERKS SUPERVISOR, HOSTAGE NEGOTIATOR [address] [place] [address] Nurse Practitioner Advanced Practice Nurse 07/19/22 Irais Naylor, ACCOUNTING CLERKS SUPERVISOR, HARDWOOD FLOOR INSTALLER [address] [address] Nurse Practitioner Cardiology 06/27/23 07/29/24 Sharri Gaspar MD [address] [address] Consulting Physician Cardiology 04/26/24 Amber Aldrich APRN, HARDWOOD FLOOR INSTALLER [address] [place] [address] Nurse Practitioner Cardiology 07/30/24 documented as of this encounter
--- OUTSIDE RECORDS SUMMARY | 2024-09-20 11:59 | XMS_ITS ---
Author Organization [facility] Address [address] [place] [address] Care Team Providers Care Lead Rider Name Role Phone Tani Biggs Primary Care Provider [phone] Active Problems Problem Noted Date Diagnosed Date History of kidney cancer 10/06/2023 Overview (10/06/2023): Images from the original note were not included. 03/27/23: NC. Renal lesion. CT + MRI () - right kidney mass ([facility] in [place]). Creatinine 1.1. Hx of post-menopausal bleeding s/p endometrial bx. Hx of HTN, CHF, GERD, erosive gastritis, gastroparesis, constipation. 04/28/23: RP. S/p R robotic nephrectomy (04/15/23) [upper pole heminephrectomy, 37 min clamp time]; path - pT1b, ccRCC, margins negative. Post-operative course c/b bleeding, pain control. Plan - pain mgmt, 3m surveillance imaging (CXR, CT A w/). 10/06/23: RP. Imaging. Surveillance Schedule: Cancer of kidney 10/06/2023 Overview (04/12/2024): 03/27/23: NC. Renal lesion. CT + MRI () - right kidney mass ([facility] in [place]). Creatinine 1.1. Hx of post-menopausal bleeding s/p endometrial bx. Hx of HTN, CHF, GERD, erosive gastritis, gastroparesis, constipation. 04/28/23: RP. S/p R robotic nephrectomy (04/15/23) [upper pole heminephrectomy, 37 min clamp time]; path - pT1b, ccRCC, margins negative. Post-operative course c/b bleeding, pain control. Plan - pain mgmt, 3m surveillance imaging (CXR, CT A w/). 10/06/23: RP. 04/12/24: RP. CT A w/wo, CXR (04/12/24) - [facility]. Plan - 1y surveillance imaging. Surveillance Schedule: Renal mass 03/31/2023 Renal lesion 03/27/2023 Overview (04/12/2024): Images from the original note were not included. 03/27/23: NC. Renal lesion. CT + MRI () - right kidney mass ([facility] in [place]). Creatinine 1.1. Hx of post-menopausal bleeding s/p endometrial bx. Hx of HTN, CHF, GERD, erosive gastritis, gastroparesis, constipation. 04/28/23: RP. S/p R robotic nephrectomy (04/15/23) [upper pole heminephrectomy, 37 min clamp time]; path - pT1b, ccRCC, margins negative. Post-operative course c/b bleeding, pain control. Plan - pain mgmt, 3m surveillance imaging (CXR, CT A w/). 10/06/23: RP. Imaging. Surveillance Schedule: Red blood cell morphology abnormality 03/27/2023 Lupus 03/27/2023 Anxiety 01/21/2023 Abnormal 01/06/2023 Irritable bowel syndrome wit h both constipation and diarrhea 10/25/2022 Slow transit constipation 10/25/2022 Dysphagia 04/29/2022 Overview (04/29/2022): Added automatically from request for surgery [id number] Internal hemorrhoids 04/25/2022 Gastroparesis 05/23/2021 Erosive gastritis with hemorrhage 05/23/2021 Chronic superficial gastritis without bleeding 0 03/27/2021 Hypercalcemia 03/27/2021 ALT (SGPT) level raised 03/27/2021 Neck swelling 01/25/2021 Gastroesophageal reflux disease 01/25/2021 Nausea and vomiting 01/25/2021 Chronic constipation 01/25/2021 Bloating 01/25/2021 Dyspepsia 01/25/2021 Non morbid obesity 05/14/2018 EDDI (obstructive sleep apnea) 05/14/2018 Tobacco use disorder 05/14/2018 Diverticulosis 11/06/2017 Chronic combined systolic an d diastolic CHF (congestive heart failure) 11/06/2017 Acute diastolic CHF (congestive heart failure) 0 07/16/2017 Elevated liver enzymes 07/16/2017 Epigastric pain 07/16/2017 Hypertension, essential 07/16/2017 Microcytic anemia 07/16/2017 Neuropathy 07/16/2017 Non-intractable vomiting with nausea 07/16/2017 Type 2 diabetes mellitus wit h hyperglycemia, without long-term current use of insulin 07/16/2017 Precordial pain 07/16/2017 Current Treatment and Therapy Plans No current plan information found. Past Treatment and Therapy Plans No past plan information found. Lifetime Dose Tracking * Chemical Lifetime Dose Automatic Entry Manual Entr y Fluoro Time 0.39 minutes 0.39 minutes 0 minutes Air kerma at the reference point (Ka,r) 6.2 mGy 6 .2 mGy 0 mGy DLP 2,427 mGycm 2,427 mGycm 0 mGycm
--- OUTSIDE RECORDS SUMMARY | 2024-09-20 11:59 | XMS_ITS | Encounter Summary ---
Author Organization [facility] Address [address] [place] [address] Phone Care Team Providers Care Manager Bakery Name Role Phone Phil Jacobo MD Unavailable [phone] Rajiv Mccormack NP Unavailable Unavailable Alize Acosta APRN, OCCUPATIONAL HYGIENIST Unavailable [phone] Dayo Chaney MD Unavailable Juanita Hauser RN Unavailable UnavailDavid Alexandre MD Unavailable Maurilio Farley MD Unavailable Rebeka Trinidad MD Primary Care Provider + [phone] Dom Quiñonez MD Unavailable Rachelle Nava SALES OPERATIONS COORDINATOR, PROJECT DESIGN ENGINEER Unavailable + [phone] Irais Naylor SALES OPERATIONS COORDINATOR, OCCUPATIONAL HYGIENIST Unavailable + [phone] Lorri Leo SALES OPERATIONS COORDINATOR, OCCUPATIONAL HYGIENIST Primary Care Provider + [phone] Rebeka Trinidad MD Primary Care Provider + [phone] Lorri Leo SALES OPERATIONS COORDINATOR, OCCUPATIONAL HYGIENIST Primary Care Provider + [phone] Sharri Gaspar MD Unavailable Tani Biggs PAC Primary Care Provider + [phone] Amber Aldrich APRN, CNP Unavailable Encounter Details Date Type Department Care Team (Late st Contact Info) Description 07/23/2023 Telephone [facility] [address] [place] [address] Rebeka Trinidad MD [address] [place] [address] Social History Tobacco Use Types Packs/Day Years Used Date Smoking Tobacco: Former Cigarettes 1 37.1 1 985 - 04/12/2021 Smokeless Tobacco: Never Alcohol Use Standard Drinks/Week Comments Not Currently 0 (1 standard drink = 0.6 oz pur e alcohol) last drank 2020 [facility] Utilities Answer Date Recorded In the past 12 months has [employer], gas, oil, or water [employer] threatened to shut off services in your home? No 03/24/2023 Social Connection and Isolation Panel Answer Date Recorded In a typical week, how many times do you talk on the phone with family, friends, or neighbors? Once a week 03/24/2023 How often do you get togethe r with friends or relatives? Never 03/24/2023 How often do you attend [facility] or christianity services? More than 4 times per year 03/24/2023 Do you belong to any clubs o r organizations such as latter-day groups, unions, fraternal or athletic groups, or [...] Total Score - Questions 1-9 18 08/3 [facility] - Occupational Stress Questionnaire Answer Date [...] place to sleep or slept in a assisted (including now)? 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 Not on file Not on file documented as of this encounter Plan of Treatment Upcoming Encounters Date Type Department Care Team (Late st Contact Info) Description 09/21/2024 3:20 PM CDT [facility] [address] [place] [phone] Melony Asif, PAC [address] [place] [address] Discharge Disposition: Discharged to home or Selfcare 10/18/2024 1:00 PM CDT [facility] [address] [place] [phone] Dom Quiñonez MD [address] [place] [phone] 10/26/2024 1:00 PM CDT Office Visit [facility] - Cardiology [facility] [address] [place] [address] Amber Aldrich, SALES OPERATIONS COORDINATOR, OCCUPATIONAL HYGIENIST [address] [place] [address] 11/09/2024 2:00 PM CDT Telemedicine [facility] [address] [place] [address] Alize Acosta, SALES OPERATIONS COORDINATOR, OCCUPATIONAL HYGIENIST [address] [place] [phone] 11/18/2024 3:45 PM CDT [facility] - [place] [address] [place] [phone] David Salmon MD [address] [place] [phone] 03/04/2025 3:10 PM STUDENT ACCOUNTS COORDINATOR Lab [facility] [address] [place] [address] [facility] 03/04/2025 3:30 PM STUDENT ACCOUNTS COORDINATOR Office Visit [facility] [address] [place] [address] Tani Biggs PAC [address] [place] [address] documented as of this encounter Goals Goal Patient Goal Type Associated Problems Recent Progress Patient-Stated? Author ACTIVITY Activity No change(08/08 2:42 PM CDT) Yes Maritza Vanegas, RN Note: Bonny will walk five days a week. Goal Reviewed with: Bonny Readiness to change: Department associated with goal: [facility] Steps to achieve goal: Walking [...] making a change Department associated with goal: [facility] Steps to achieve [...] Management Improving(0 12/08/2023 2:39 PM CDT) Renita Spann RN Note: Goal: To manage my high [...] Disease Management Worsening(0 08/30/2024 1:58 PM CDT) No Xiomy Linda, RN Note: Goal: To manage my chronic [...] diet Depression Depression Improving(0 03/15/2022 2:27 PM STUDENT ACCOUNTS COORDINATOR) Breanne Barragan LCSW Note: Goal/Objective: Decrease symptoms of depression [...] to change Department associated with goal: [facility] Steps to achieve goal: Bonny [...] 19 04/18/2024 04/18/2024 04/18/2024 10:4 7 PM STUDENT ACCOUNTS COORDINATOR Respiratory Rule-Out 05/06/2024 05/06/2024 025 9:20 AM STUDENT ACCOUNTS COORDINATOR COVID - 19 05/06/2024 05/06/2024 05/06/2024 9:19 AM STUDENT ACCOUNTS COORDINATOR Assessment Noted Time PHQ-9 Depression Total Score: 18 023 9:24 AM CDT documented as of this encounter Care Teams Manager Bakery Relationship Specialty Start Date End Date Rebeka Trinidad MD [address] [place] [address] PCP - General Family Medicine 03/26/23 03/29/24 Lorri Leo APRN, OCCUPATIONAL HYGIENIST [address] [place] [address] PCP - General Certified Nurse Practitioner 03/30/24 04/20/24 Rebeka Trinidad MD [address] [place] [address] PCP - General Family Medicine 04/21/24 04/21/24 Lorri Leo APRN, OCCUPATIONAL HYGIENIST [address] [place] [address] PCP - General Certified Nurse Practitioner 04/22/24 05/30/24 Tani Biggs, [facility] [address] [place] [phone] PCP - General Physician Vice President Of Compliance 05/31/24 Phil Jacobo MD [address] [place] [phone] Consulting Physician Neurology 03/07/21 Rajiv Mccormack, KELI [address] [place] [address] Nurse Practitioner Gastroenterology 03/07/21 Alize Acosta APRN, OCCUPATIONAL HYGIENIST [address] [place] [place] [address] [facility] HOME STAGER Advanced Practice Nurse 08/30/21 Dayo Chaney MD [address] [place] [address] Sprayer Operator Cardiovascular Disease - Cardiology 09/20/21 02/12/24 Juanita Mercado RN [place] Registered Nurse Cardiology 12/24/21 02/12/24 David Salmon MD [address] [address] Consulting Physician Endocrinology 01/15/22 Maurilio Farley MD [address] [address] Consulting Physician Colon and Rectal Surgery 09/20/22 Dom Quiñonez MD [address] [place] [address] Consulting Physician Pulmonary Disease 11/19/21 Rachelle Nava APRN, PROJECT DESIGN ENGINEER [address] [place] [address] Nurse Practitioner Advanced Practice Nurse 07/19/22 Irais Naylor APRN, OCCUPATIONAL HYGIENIST [address] [address] Nurse Practitioner Cardiology 06/27/23 07/29/24 Sharri Gaspar MD [address] [address] Consulting Physician Cardiology 04/26/24 Amber Aldrich APRN, OCCUPATIONAL HYGIENIST [address] [place] [address] Nurse Practitioner Cardiology 07/30/24 documented as of this encounter
--- OUTSIDE RECORDS SUMMARY | 2024-09-20 11:59 | XMS_ITS | Clinical Summary ---
Author Organization [facility] Address [address] [place] [address] Care Team Providers Care Evp And Chief Operating Officer Name Role Phone Tani Biggs Primary Care Provider [phone] Allergies Active Allergy Reactions Criticality Noted Date Comments Venom-Honey Bee Swelling Medium 2022 Cephalexin Itching Low 04/30/2022 Patient denies swelling Patient denies swelling Patient denies swelling Hanson Swelling Medium 03/21/2020 Duloxetine Dizziness Low 10/25/2022 Ketorolac Tromethamine Rash Medium 12/07/2020 Meclizine Swelling Medium 12/08/2020 Meclizine Hcl Swelling Medium 12/12/2020 Nsaids (Non-Steroidal Anti-Inflammatory Drug) Other (See comments) Low 12/15/2021 Pt states GI doctor said she cant have them due to gastritis. Nutritional Supplements Swelling Medium 03/21/2020 Other Anaphylaxis High 01/12/2021 Mountain Dew Phenylephrine-Acetamino phen Hives Medium 03/07/2022 Shrimp Other (See comments) Low 2022 Tongue tingling Tongue tingling Medications ASPIRIN LOW DOSE ORAL Take 81 mg by mouth every morning Active atorvastatin (LIPITOR) 80 mg tablet Take 1 tablet (80 mg total) by mouth every morning 07/18/19 21 Active furosemide (LASIX) 20 mg tablet Take 1 tablet (20 mg total) by mouth daily 07/15/19 21 Active glimepiride (AMARYL) 2 mg tablet Take 1 tablet (2 mg total) by mouth designer before breakfast 08/01/19 21 Active allopurinoL (ZYLOPRIM) 100 mg tablet Take 1 tablet (100 mg total) by mouth every morning 12/02/19 21 Active azelastine (ASTELIN) 137 mcg (0.1 %) nasal spray Administer 2 sprays into each nostril 2 (two) times a day as needed for rhinitis or allergies 02/15/20 21 Active BD Ultra-Fine Short Pen Needle 31 gauge x 5/16 needle USE WITH BYETTA PEN TWICE DAILY 02/11/20 21 Active empagliflozin (JARDIANCE) 25 mg tablet Take 1 tablet (25 mg total) by mouth every morning 10/19/19 22 Active ferrous sulfate 325 mg (65 mg of elemental iron) tablet Take 1 tablet (325 mg total) by mouth daily with breakfast Active EPINEPHrine 0.3 mg/0.3 mL auto-injection syringe ADMINISTER 0.3 ML IN THE MUSCLE 1 TIME FOR UP TO 1 DAY NEEDED FOR ANAPHYLAXIS 02/07/20 22 Active albuterol HFA (PROVENTIL HFA,VENTOLIN HFA,PROAIR HFA) 90 mcg/actuation inhaler INHALE 2 PUFFS BY MOUTH EVERY 4 HOURS NEEDED FOR WHEEZING OR COUGH 04/23/19 23 Active montelukast (SINGULAIR) 10 mg tablet Take 1 tablet (10 mg total) by mouth nightly 03/11/19 23 Active spironolactone (ALDACTONE) 25 mg tablet Take 1 tablet (25 mg total) by mouth every morning 03/28/19 23 Active ascorbic acid (VITAMIN C) 500 mg tablet,chewable Take 1 tablet/chew tab (500 mg total) by mouth 2 (two) times a day Active cholecalciferol (VITAMIN D-3) 1,000 unit capsule Take 1 capsule (1,000 Units total) by mouth every morning Active hydrocortisone (ANUSOL-HC) 2.5 % rectal cream Insert small amount into rectum using applicator nightly to help with bleeding hemorrhoids. 30 g 5 04/25/19 23 Active Additional Information Patient taking differently: 1 Application rectal Daily PRN, hemorrhoids, Insert small amount into rectum using applicator nightly to help with bleeding hemorrhoids., Informant: Self, Reported on 09/09/2024 hydrOXYzine (ATARAX) 25 mg tablet Take 1 tablet (25 mg total) by mouth 2 (two) times a day 06/04/19 23 Active Qulipta 60 mg tablet Take 1 tablet by mouth nightly Active acetaminophen (TYLENOL) 500 mg tablet Take 2 tablets (1,000 mg total) by mouth every 4 (four) hours as needed Active OneTouch Verio test strips strip 2 (two) times a day TEST BLOOD SUGAR 09/25/19 23 Active buPROPion XL (WELLBUTRIN XL) 150 mg 24 hr tablet Take 1 tablet (150 mg total) by mouth nightly 09/07/19 23 Active carvediloL (COREG) 12.5 mg tablet Take 1 tablet (12.5 mg total) by mouth 2 (two) times a day 10/11/19 23 Active senna-docusate (PERICOLACE) 8.6-50 mg Take 1-2 pills up to twice daily as needed for problematic constipation. 360 tablet 3 12/07/19 23 Active venlafaxine XR (EFFEXOR-XR) 150 mg 24 hr capsule Take 1 capsule (150 mg total) by mouth nightly 11/07/19 Active polyethylene glycol (MIRALAX) 17 gram/dose bulk powderIndications: constipation Take 17 g by mouth daily 510 g 04/19/19 24 Active Additional Information Patient taking differently:17 g oralDaily PRN, constipation, Indications: constipation, Reported on 09/09/2024 budesonide-formote roL (SYMBICORT) 160-4.5 mcg/actuation inhaler Inhale 2 puffs 2 (two) times a day 06/23/19 24 Active ondansetron ODT (ZOFRAN-ODT) 4 mg disintegrating tablet Take 1 tablet (4 mg total) by mouth every 6 (six) hours as needed for nausea or vomiting 20 tablet 3 08/19/19 25 Active simethicone (MYLICON) 125 mg chewable tablet Take one tablet up to 4 times daily as needed for problematic gas issues and upper abdominal pain. 120 tablet 3 08/19/[address] (PROTONIX) 40 mg EC tablet Take 1 tablet (40 mg total) by mouth daily 90 tablet 3 08/24/19 25 Active Additional Information Patient taking differently:40 mg oralEvery morning, Informant: Self, Reported on 09/09/2024 famotidine (PEPCID) 40 mg tablet Take 1 tablet (40 mg total) by mouth daily 90 tablet 3 08/24/19 25 Active Additional Information Patient taking differently:40 mg oralEvery morning, Informant: Self, Reported on 09/09/2024 lubiprostone (AMITIZA) 24 mcg capsule Take 1 capsule (24 mcg total) by mouth 2 (two) times a day with meals 180 capsule 3 08/24/19 25 025 Active Mounjaro 15 mg/0.5 mL pen injector injection Inject 0.5 mL (15 mg total) under the skin every 7 days Q Friday07/16/19 25 Active insulin glargine (LANTUS) 100 unit/mL (3 mL) pen for injection Inject 30 Units under the skin designer before breakfast 04/17/19 22 025 Discontin ued(Thera py completed ) losartan (COZAAR) 50 mg tablet Take 1 tablet (50 mg total) by mouth daily 10/12/19 23 025 Discontin ued(Thera py completed ) olopatadine (PATANOL) 0.1 % ophthalmic solutionIndication s:Allergic Conjunctivitis Administer 1 drop into both eyes 2 (two) times a day 5 mL 1 04/19/19 24 025 Discontin ued(Thera py completed ) lubiprostone (AMITIZA) 24 mcg capsule Take 1 capsule (24 mcg total) by mouth 2 (two) times a day with meals 180 capsule 3 12/16/19 24 025 Discontin ued(Reord er) famotidine (PEPCID) 40 mg tablet Take 1 tablet (40 mg total) by mouth daily 90 tablet 3 05/11/19 25 025 Discontin ued(Reord er) pantoprazole DR (PROTONIX) 40 mg EC tablet Take 1 tablet (40 mg total) by mouth daily 90 tablet 3 08/19/19 25 025 Discontin ued(Reord er) Active Problems Problem Noted Date Diagnosed Date History of kidney cancer 10/06/2023 Overview (10/06/2023): Images from the original note were not included. 03/27/23: NC. Renal lesion. CT + MRI () - right kidney mass ([facility] [place]). Creatinine 1.1. Hx of post-menopausal bleeding s/p [...] + MRI () - right kidney mass ([facility] [place]). Creatinine 1.1. Hx of post-menopausal bleeding s/p [...] + MRI () - right kidney mass ([facility] [place]). Creatinine 1.1. Hx of post-menopausal bleeding s/p [...] (04/29/2022): Added automatically from request for surgery [id number] Internal hemorrhoids 04/25/2022 Gastroparesis 05/23/2021 Erosive gastritis [...] use of insulin 07/16/2017 Precordial pain 07/16/2017 Encounters Date Type Department Care Team Description 08/18/2024 2:30 PM CDT Office Visit [facility] at [address] [place] [address] Rajiv Sauceda NP Chronic superficial gastritis without bleeding (Primary Dx); Gastroesophageal reflux disease without esophagitis; History of GI bleed; Irritable bowel syndrome with both constipation and diarrhea; Slow transit constipation; Gastroparesis; Former smoker 07/01/2024 2:40 PM CDT Office Visit [facility] [address] [facility] Medical Office Building [address] [place] [address] Meli Dukes MD EDDI (obstructive sleep apnea) (Primary Dx); Intolerance of continuous positive airway pressure (CPAP) ventilation; Chronic combined systolic and diastolic CHF (congestive heart failure) (HCC); Type 2 diabetes mellitus with hyperglycemia, without long-term current use of insulin (HCC) from Last 3 Months Immunizations Immunization Administration Dates Next Due Influenza, Quadrivalent, Spl it, Preservative Free, Intramuscular 02/06/2023,11/13/2021,11/30/2020,12/15 Influenza, Trivalent, IM (MDV) 12/23/2019 Influenza, Unspecified 12/23/2019 Pneumococcal Conjugate Pcv20 06/07/2022 Pneumococcal Polysaccharide PPV23 05/29/2021 Tdap 06/07/2022 ZOSTER Recombinant 07/13/2022 Surgical History Surgery Date Site/Laterality Comments NEPHRECTOMY Right partial right removed VASCULAR SURGERY Left foot stent due to PVD Medical History Medical History Date Comments Asthma CHF (congestive heart failure) (HCC) Depression Type 2 diabetes mellitus (HCC) Hypertension GERD (gastroesophageal reflux disease) Arthritis Migraines Heart disease Sleep apnea Lymphoma (HCC) Anemia Coronary artery disease Chronic kidney disease COPD (chronic obstructive pulmonary disease) (HC C) PONV (postoperative nausea and vomiting) Motion sickness Arrhythmia Lung disease Irritable bowel syndrome Gastroparesis Chronic pain disorder History of kidney cancer removed part of right kidney Lupus (systemic lupus erythematosus) (HCC) Neuropathy Anxiety EDDI (obstructive sleep apnea) PVD (peripheral vascular disease) Family History Medical History Relation Name Comments Heart attack Father Heart disease Father Arthritis Mother Helensantos drew Asthma Mother Helensantos drew Diabetes Mother Helens[place]os drew Heart disease Mother Helens[place]os drew Hypertension Mother Helens[place]os drew Depression Sister Dariela yang Relation Name Status Comments Father Mother Helen drew Sister Dariela yang Social History Tobacco Use Types Packs/Day Years Used Date Smoking Tobacco: Former Cigarettes 0.3 36 0 03/10/1985 - 03/10/2021 Smokeless Tobacco: Former Quit: 05/07/2021 Tobacco Cessation:Counseling Given: Not Answered AUDIT-C Answer Date Recorded Q1: How often do you have a drink containing alc ohol? Never 08/18/2024 Average Number of Drinks Not on file 025 Frequency of Binge Drinking Not on file 08/08 Personal Safety Answer Date Recorded Have you ever been in or are you currently in a harmful physical or emotional relationship or is someone making you feel afraid or unsafe? Denies 04/16/2023 Comments No Sex and Gender Information Value Date Recorded Sex Assigned at Not on file Legal Sex Female 9:19 AM [facility] Gender Identity Female 06/03/2023 11:21 AM CDT Sexual Orientation Villegas 01/18/2021 9: 53 AM [facility] [facility] Obstetrics History Last Filed Vital Signs Vital Sign Reading Time Taken Comments Blood Pressure 115/78 08/18/2024 2:27 PM CDT Pulse 99 08/18/2024 2:27 PM CDT Temperature 36.6 C (97.9 F) 04/19/2023 11:55 AM [facility] Respiratory Rate 19 04/19/2023 8:16 AM [facility] [employer] [facility] Oxygen Saturation 96% 08/18/2024 2:27 PM CDT Inhaled Oxygen Concentration - - Weight 73.7 kg (162 lb 6.4 oz) 08/18/2024 2:27 P M CDT Height 160 cm (5' 3) 08/18/2024 2:27 PM CDT Body Mass Index 28.77 08/18/2024 2:27 PM CDT Plan of Treatment Upcoming Encounters Date Type Department Care Team (Late st Contact Info) Description 09/21/2024 8:00 AM CDT Hospital Encounter [facility] Operating Room [address] [place] [address] [place] [address] [facility] [address] [place] [address] 09/21/2024 8:00 AM CDT Anesthesia Event [facility] Operating Room [address] [place] [address] Serenity Nicole MD PhD [address] [place] [address] [place] [address] [facility] [address] [place] [address] 09/21/2024 8:00 AM CDT - 09/21/2024 8:30 AM CDT Surgery [facility] Operating Room [address] [place] [address] [place] [address] [facility] [address] [place] [address] DRUG INDUCED SLEEP ENDOSCOPY/15MIN Scheduled Procedures Name Priority Associated Diagnoses Date/Ti me DRUG INDUCED SLEEP ENDOSCOPY EVAL FLEX DIAG EDDI (obstructive sleep apnea) 09/21/2024 8:00 AM CDT Health Maintenance Due Date Last Done Comments Albumin Creatinine Ratio, Urine 1969 Colon Cancer Screening-Colonoscopy 1969 Depression Screening 1969 Hepatitis C Screening 1969 Dilated Eye Exam 1969 Foot Exam 1969 Meningococcal B Vaccine (1 o f 5 - Increased Risk) 06/01/1979 Hepatitis B Screening 06/01/1987 Regular Well Visit/Exam 18-64 06/01/1987 Zoster Vaccine (2 of 2) 09/07/2022 07/13/2022 Breast Cancer Screening-Mammogram 01/25/2024 01/24/2023, 06/19/2022, 06/19/2022, Additional history exists Lipid Panel 02/07/2024 02/06/2023, 02/07, 08/31/2016, Additional history exists Cervical Cancer Screening 02/14/2024 02/13/2023, 09/2022 eGFR 04/18/2024 04/18/2023, 02/0 10/2023, 04/16/2023, Additional history exists Hemoglobin A1C 07/24/2024 01/25/2024, 02/0 08/2023, 08/31/2016 Influenza Vaccine (#1) 2024 , 11/13/2021, 11/30/2020, Additional history exists DTaP/Tdap/Td Vaccine (2 - Td or Tdap) 06/07/2032 06/07/2022 Pneumococcal vaccine <65 Completed 06/07/2022, 05/09 Goals Goal Patient Goal Type Associated Problems Recent Progress Patient-Stated? Author CCM Chronic Pain Care Plan Chronic Care Management No Kelli Judd, RN Note: Problem: Chronic Pain Goals: 1. Minimize further functional decline 2. Maximize quality of life 3. Control pain Strategies: - Activity/exercise program recommendation - Conservative stepwise pain medicine strategy with multi-disciplinary approach - Recommend healthy lifestyle strategies and compensatory methods as needed Reduce the likelihood of falling Lifestyle No Kelli Judd, RN Note: Below are four things you can do to prevent falls: Begin an exercise program to improve your leg strength & balance Ask your doctor or pharmacist to review your medicines Get annual eye check-ups & update your eyeglasses Make your home safer by: Removing clutter & tripping hazards Putting railings on all stairs & adding grab bars in the bathroom Having good lighting, especially on stairs Contact your local community or [facility] for information on exercise, fall prevention programs, or options for improving home safety. Procedures Procedure Name Priority Date/Time Associated Diagnosis Comments EGFR Timed 04/18/2023 11:04 PM [facility] HEMOGLOBIN A1C STAT 04/15/2023 10:25 PM [facility] [employer] [facility] HIGH RISK HPV DNA DETECTION WITH GENOTYPING Routine 02/13/2023 1:39 PM [facility] [facility] Postmenopausal bleeding LIPID PANEL Routine 08/31/2016 6:28 AM CDT from Last 3 Months or Most Recently Relevant to Health Maintenance Results * eGFR (04/18/2023 11:04 PM [facility] [employer]) eGFR 65 >=60 mL/min/1. 73 m2 [facility] Comment: Interpretive Data Reference Interval Normal >/= 90 mL/min/1.73m2 Mildly decreased* 60 - 89 mL/min/1.73m2 Mildly to moderately decreased 45 - 59 mL/min/1.73m2 Moderately to severely decreased 30 - 44 mL/min/1.73m2 Severely decreased 15 - 29 mL/min/1.73m2 Kidney Failure < 15 mL/min/1.73m2 *Relative to young adult level Estimated glomerular filtration rate is determined by the 2020 CKD-EPI equation recommended by the National Kidney Foundation (A Unifying Approach to GFR Estimation: Recommendations of the NKF-ASK Task Force on Reassessing the Inclusion of Race in Diagnosing Kidney Disease, JASN 2020). The CKD-EPI equation should not be used for patients with unstable renal function and has not been validated in children and those over 70. Current interpretive data was last reviewed 2021. Blood 04/18/2023 11:0 4 PM [facility] 04/19/2023 12:33 AM [facility] Gerard Rodriguez MD LAB BLOOD ORDERABLES Fin al Result Performing Organization Address [facility] de Phone Number [facility] [place] [address] * (ABNORMAL) Hemoglobin A1c (04/15/2023 10:25 PM [facility] [employer]) Pathologist [facility] Hgb A1C 5.8(H) 4.0 - 5.6 % [facility] Estimated Average Glucose 120 mg/dL [facility] Comment: The ADA recommends reporting an estimated Average Glucose (eAG) with all Hemoglobin A1c results using the equation derived from a study of 507 normal and diabetic adults. Minority populations were underrepresented and children were not included. (Diabetes Care 2020; 43(S1): S66-S76). The eAG is not equivalent to a fasting glucose. Blood 04/15/2023 10:2 5 PM [facility] 04/15/2023 11:38 PM [facility] [employer] [facility] Gerard Rodriguez MD LAB BLOOD ORDERABLES Fin al Result Performing Organization Address [facility] Co de Phone Number [facility] [place] [address] * High Risk HPV DNA Detection with Genotyping (Molecular component) (02/13/2023 1:39 PM [facility] [employer]) [facility] HPV HR 16 Not Detected Not Detected [facility] HPV HR 18 Not Detected Not Detected [facility] HPV HR Non 16/18 Not Detected Not Detected [facility] Comment: Interpretive Data Nucleic acid amplification for detection of high-risk Human Papilloma virus (HPV) is performed by the Lu Theodore 6800 HPV test. This assay specifically detects HPV-16 and HPV-18 genotypes. The following HPV genotypes are detected as high-risk HPV: HPV-31, 33, 35, ,39, 45, 51, 52, 56, 58, 59, 66, and 68. This assay has been approved by the [place] Food and Drug Administration for detection of HPV in cervical specimens collected by a physician using an endocervical brush/spatula or cervical broom and placed in the ThinPrep Pap Test PreservCyt collection containers. The performance characteristics of this test have been verified by the [facility] laboratory. Correlate with separately reported cytology results, as applicable. Interpretive data last revised 22 Endocervical 02/13/2023 1:39 PM [facility] 02/14/2023 7:00 AM [facility]ative [facility] 02/15/2023 2:10 AM [facility] [facility] Clinical history and diagnosis->screening pap Testing type->Screening Last menstrual period (date if known)->2019 Maty Gilbert MD LAB BODY FLUIDS AND STOOLS OR DERABLES Final Result [facility] [address] [facility] Department [place] [address] * (ABNORMAL) Lipid panel (08/31/2016 6:28 AM CDT) Cholesterol 157 40 - 199 mg/dL [facility] ([place]) Comment: Interpretive Data Desirable: Less than 200 mg/dl Borderline High: 200 - 239 mg/dl High: Greater than 239 mg/dl Current interpretive data was last revised on 2014. Triglycerides 334.0(H) <=150.0 mg/dL [facility] ([place]) Comment: Interpretive Data Normal: Less than 150 mg/dl Borderline high: 150-199 mg/dl High: 200-499 mg/dl Very high: Greater than or equal to 500 mg/dl Current interpretive data was last revised on 2016. HDL 52 40 - 60 mg/dL [facility] ([place]) Comment: Interpretive Data Low HDL Cholesterol: Less than 40 mg/dl Normal HDL Cholesterol: 40-60 mg/dl High HDL Cholesterol: Greater than 60 mg/dl Current interpretive data was last revised on 2014. LDL, calculated 38 mg/dL [facility] ([place]) Comment: Interpretive Data Optimal Less than 100 mg/dL Near optimal/Above optimal 100 - 129 mg/dL Borderline high 130 - 159 mg/dL High 160 - 189 mg/dL Very high Greater than or = 190 mg/dL LDL values are not valid when the total Triglyceride is greater than 300 mg/dL. Current interpretive data was last revised on 2014. Non-HDL Cholesterol 105 mg/dL [facility] ([place]) Comment: Interpretive Data Optimal Less than 130 mg/dL Low Risk 130 - 159 mg/dL Moderate Risk 160 - 189 mg/dL High Risk Greater than or equal to 190 mg/dL Current interpretive data was last revised on 2014. Blood specimen (specimen) 08/31/2016 6:28 AM CDT 08/31/2016 6:47 AM CDT us Abdirahman Ball MD LAB BLOOD ORDERABLES Final Re sult [facility] ([place]) [address] [facility] Department [place] [address] from Last 3 Months or Most Recently Relevant to Health Maintenance Insurance [facility] MEDICARE ADVANTAGE [facility] Address: [facility] [id number] [place] [phone] [employer] [facility] MEDICARE ADVANTAGE [facility] Address: [facility] [address] [place] [address] [employer] [facility] MEDICARE ADVANTAGE [facility] Address: [facility] [address] [place] [address] Advance Directives For more information, please contact: [phone] * Full Code (Latest Code Status on File) Date Activated Date Inactivated Comments 04/15/2023 8:47 PM 04/19/2023 6:08 PM * Full Code Date Activated Date Inactivated Comments 05/07/2022 9:10 AM 05/07/2022 3:09 PM * Full Code Date Activated Date Inactivated Comments 05/07/2022 9:10 AM 05/07/2022 9:10 AM * Full Code Date Activated Date Inactivated Comments 02/27/2021 11:00 AM 02/27/2021 5:55 PM * Full Code Date Activated Date Inactivated Comments 02/27/2021 11:00 AM 02/27/2021 11:00 AM Care Teams Evp And Chief Operating Officer Relationship Specialty Start Date End Date Tani Biggs PA [address] [place] [address] PCP - General Orthopedic Surgery 09/13/24
--- OUTSIDE RECORDS SUMMARY | 2024-09-20 11:59 | XMS_ITS | Encounter Summary ---
Author Organization [facility] Address [address] [place] [address] Phone Care Team Providers Care Varnishing Unit Operator Name Role Phone Jackeline Dimas PUBLISHING MANAGER, BURN OUT SCARFING OPERATOR Primary Care Provider Fiona Martinez [facility] CENTER DIRECTOR Unavailable Unavailab Phil Ellis MD Unavailable +[phone] Rajiv Mccormack NP Unavailable Unavailable Renita Quezada RN Unavailable Unavailable Alize Acosta PUBLISHING MANAGER, BURN OUT SCARFING OPERATOR Unavailable +[phone] Dayo Chaney MD Unavailable Juanita Hauser RN Unavailable Unavaila David Martinez MD Unavailable Emilia Tang MD Primary Care Provider [phone] Maurilio Farley MD Unavailable Candida Turner MD Unavailable Rebeka Trinidad MD Primary Care Provider + [phone] Dom Quiñonez MD Unavailable Rachelle Nava PUBLISHING MANAGER, PORTFOLIO ARCHITECT Unavailable + [phone] Irais Naylor PUBLISHING MANAGER, BURN OUT SCARFING OPERATOR Unavailable + [phone] AhmetAngélica morrismando Littlejohn PUBLISHING MANAGER, BURN OUT SCARFING OPERATOR Primary Care Provider +[phone] Rebeka Trinidad MD Primary Care Provider [phone] Lorri Leo PUBLISHING MANAGER, BURN OUT SCARFING OPERATOR Primary Care Provider +[phone] Sharri Gaspar MD Unavailable Tani Biggs [facility] Primary Care Provider + [phone] Amber Aldrich PUBLISHING MANAGER, BURN OUT SCARFING OPERATOR Unavailable Reason for Visit * Reason Comments Medication Refill Encounter Details Date Type Department Care Team (Late st Contact Info) Description 09/25/2020 Refill [facility] Medical [facility] - Primary Care - [place] [address] [place] [address] Jackeline Dimas, PUBLISHING MANAGER, [facility] [address] [place] [address] Medication Refill Social History Tobacco [...] 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 No / Unsure 09/26/2020 7:30 AM CDT documented as of this encounter Miscellaneous Notes * Telephone Encounter - Adina Barrientos RN - 09/25/2020 4:07 PM CDT The original prescription was discontinued on 08/24/2020 by Jackeline Dimas APN, BURN OUT SCARFING OPERATOR for the following reason: Alternate therapy documented in this encounter Plan of Treatment Upcoming Encounters Date Type Department Care Team (Late st Contact Info) Description 09/21/2024 3:20 PM CDT [facility] [address] [place] [address] Melony Asif Stacey, PAC [address] [place], [place] [id number] Discharge Disposition: Discharged to home or Selfcare 10/18/2024 1:00 PM CDT [facility] #[address] [place] [address] Dom Quiñonez MD #[address] [place] [address] 10/26/2024 1:00 PM CDT Office Visit [facility] - Cardiology - [place] [address] [place] [address] Amber Aldrich APRN, BURN OUT SCARFING OPERATOR #[address] [place] [address] 11/09/2024 2:00 PM CDT Telemedicine [facility] [address] [place] [address] Alize Acosta APRN, BURN OUT SCARFING OPERATOR [address] [place] [address] 11/18/2024 3:45 PM CDT Office Visit [facility] - Endocrinology - [place] [address] [place] [address] David Salmon MD #[address] [facility] [address] [facility] [address] [place] [address] 03/04/2025 3:10 PM VETERINARY DENTIST Lab [facility] - [place] [address] [place] [address] [facility] 03/04/2025 3:30 PM VETERINARY DENTIST Office Visit [facility] [place] [address] [place] [address] Tani Biggs PAC [address] [place] [address] documented as of this encounter Visit Diagnoses Diagnosis Hypertension, essential Unspecified essential hypertension documented in this encounter Additional Health Concerns Infection Onset Date Last Indicated Resolved Time COVID - 19 01/08/2021 01/08/2021 01/28/2021 12:1 6 AM VETERINARY DENTIST COVID - 19 03/12/2021 03/12/2021 04/01/2021 12:1 6 AM VETERINARY DENTIST COVID - 19 12/15/2021 12/15/2021 12/15/2021 7:26 PM CDT COVID - 19 Confirmed 12/15/2021 12/15/2021 022 12:16 AM CDT COVID - 19 04/18/2024 04/18/2024 04/18/2024 10:4 7 PM VETERINARY DENTIST Respiratory Rule-Out 05/06/2024 05/06/2024 025 9:20 AM VETERINARY DENTIST COVID - 19 05/06/2024 05/06/2024 05/06/2024 9:19 AM VETERINARY DENTIST Assessment Noted Time PHQ-9 Depression Total Score: 0 09/01/19 20 11:58 AM CDT documented as of this encounter Care Teams Varnishing Unit Operator Relationship Specialty Start Date End Date Jackeline Dimas, PUBLISHING MANAGER, BURN OUT SCARFING OPERATOR [address] [place] [address] PCP - General Advanced Practice Nurse 07/31/17 Emilia Tang MD [address] [place] [address] PCP - General Family Medicine 06/07/22 03/25/23 Rebeka Trniidad MD [address] [place] [address] PCP - General Family Medicine 03/26/23 03/29/24 Lorri Leo APRN, BURN OUT SCARFING OPERATOR [address] [place] [address] PCP - General Certified Nurse Practitioner 03/30/24 04/20/24 Rebeka Trinidad MD [address] [place] [address] PCP - General Family Medicine 04/21/24 04/21/24 Lorri Leo, PUBLISHING MANAGER, BURN OUT SCARFING OPERATOR [address] [place] [address] PCP - General Certified Nurse Practitioner 04/22/24 05/30/24 Tani Biggs, PAC [address] [place] [address] PCP - General Physician Mds Coordinator 05/31/24 Fiona Martinez, MAR[place] Security Messenger 03/01/21 08/23/21 Phil Jacobo MD #[address] [place] [address] Consulting Physician Neurology 03/07/21 Rajiv Mccormack, KELI [address] [place] [address] Nurse Practitioner Gastroenterology 03/07/21 Renita Quezada RN [place] Security Messenger 05/09/21 08/23/21 Alize Acosta, PUBLISHING MANAGER, BURN OUT SCARFING OPERATOR [address] [place] [address] Virtual Advanced Care (VAC) CLINIC OFFICE ASSISTANT Advanced Practice Nurse 08/30/21 Dayo Chaney MD [address] [place] [address] Ribbon Cutter Cardiovascular Disease - Cardiology 09/20/21 02/12/24 Juanita Mercado RN [place] Registered Nurse Cardiology 12/24/21 02/12/24 David Salmon MD #[address] [address] Consulting Physician Endocrinology 01/15/22 Maurilio Farley MD #[address] [address] Consulting Physician Colon and Rectal Surgery 09/20/22 PhysicianCandida MD [address] [place] [address] Family Medicine 01/25/22 03/18/23 Dom Quiñonez MD #[address] [place] [address] Consulting Physician Pulmonary Disease 11/19/21 Rachelle Nava APRN, PORTFOLIO ARCHITECT #[address] [place] [address] Nurse Practitioner Advanced Practice Nurse 07/19/22 Irais Naylor APRN, BURN OUT SCARFING OPERATOR #2 [facility] [address] [place] [address] Nurse Practitioner Cardiology 06/27/23 07/29/24 Sharri Gaspar MD 2 [facility], [place] [place] [address] Consulting Physician Cardiology 04/26/24 Amber Aldrich APRN, BURN OUT SCARFING OPERATOR #[address] [place] [address] Nurse Practitioner Cardiology 07/30/24 documented as of this encounter
--- OUTSIDE RECORDS SUMMARY | 2024-09-20 11:59 | XMS_ITS | Encounter Summary ---
Author Organization [facility] Address [address] [place] [address] Phone Care Team Providers Care Stock Saw Operator Name Role Phone Phil Jacobo MD Unavailable [phone] Rajiv Mccormack NP Unavailable Unavailable Alize Acosta BUYER BROKER, POULTRY DRESSING WORKER Unavailable +[phone] Dayo Chaney MD Unavailable Juanita Hauser RN Unavailable Unavaila David Martinez MD Unavailable Emilia Tang MD Primary Care Provider [phone] Maurilio Farley MD Unavailable PhysicianCandida MD Unavailable Rebeka Trinidad MD Primary Care Provider + [phone] Dom Quiñonez MD Unavailable Rachelle Nava BUYER BROKER, OFFICE SYSTEM ANALYST Unavailable + [phone] Irais Naylor BUYER BROKER, POULTRY DRESSING WORKER Unavailable + [phone] Lorri Leo BUYER BROKER, POULTRY DRESSING WORKER Primary Care Provider + [phone] Rebeka Trinidad MD Primary Care Provider + [phone] Lorri Leo BUYER BROKER, POULTRY DRESSING WORKER Primary Care Provider + [phone] Sharri Gaspar MD Unavailable Tani Biggs Primary Care Provider + [phone] Valdemar Amber Dinora WELLS, POULTRY DRESSING WORKER Unavailable Reason for Visit * Reason Comments Medication Refill Encounter Details Date Type Department Care Team (Late st Contact Info) Description 09/04/2022 Refill [facility] - Endocr[facility]ology - [place] [address] [place] [address] David Salmon MD #[address] [address] Medication Refill Social History Tobacco Use Types Packs/Day Years Used Date Smoking Tobacco: Former Cigarettes 0.5 15 0 04/12/2006 - 04/12/2021 Smokeless Tobacco: Never Alcohol Use Standard Drinks/Week Comments Not Currently 0 (1 standard drink = 0.6 oz pur e alcohol) last drank 2 years ago PHQ-2 Answer Date Recorded Total Score - Questions 1-9 24 10/2021 Education Answer Date Recorded What is the highest level of school you have completed or the highest degree you have received? 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 No / Unsure 09/06/2022 8:44 AM CDT documented as of this encounter Miscellaneous Notes * Telephone Encounter - Yesi Leggett, RN - 09/04/2022 9:28 AM CDT Requested Prescriptions Pending Prescriptions Disp Refills ??? TRUEplus 5-Bevel Pen Baldwin 32G X 4 MM Misc [Pharmacy Med Name: TRUEPLUS 5- BEVEL PEN NEEDLE [id number]] 100 Each 1 Sig: USE DAILY DIRECTED. Next appt: 10/31/2022 documented in this encounter Plan of Treatment Upcoming Encounters Date Type Department Care Team (Late st Contact Info) Description 09/21/2024 3:20 PM CDT Office Visit [facility] Oncology Services [address] [place] [address] Melony Asif, [facility] [address] [place] [address] Discharge Disposition: Discharged to home or Selfcare 10/18/2024 1:00 PM CDT [facility] - Pulmonology & Sleep Medicine [facility] #[address] [place] [address] Dom Quiñonez MD #[address] [place] [address] 10/26/2024 1:00 PM CDT [facility] - Cardiology - [place] [address] [place] [address] Amber Aldrich, BUYER BROKER, POULTRY DRESSING WORKER #[address] [place] [address] 11/09/2024 2:00 PM CDT Telemedicine [facility] [address] [place] [address] Alize Acosta, BUYER BROKER, POULTRY DRESSING WORKER [address] [place] [address] 11/18/2024 3:45 PM CDT Office Visit [facility] - Endocrinology - [place] [address] [place] [address] David Salmon MD #[address] [address] 03/04/2025 3:10 PM CASING WORKER Lab [facility] [place] [address] [place] [address] [facility], [facility] 03/04/2025 3:30 PM CASING WORKER Office Visit [facility] [address] [place] [address] Tani Biggs PAC [address] [place] [address] documented as of this encounter [...] diet Depression Depression Improving(0 03/15/2022 2:27 PM CASING WORKER) No Breanne Saldana, FIRE EXTINGUISHER MECHANIC Note: Goal/Objective: Decrease symptoms of depression associated [...] 19 04/18/2024 04/18/2024 04/18/2024 10:4 7 PM CASING WORKER Respiratory Rule-Out 05/06/2024 05/06/2024 025 9:20 AM CASING WORKER COVID - 19 05/06/2024 05/06/2024 05/06/2024 9:19 AM CASING WORKER Assessment Noted Time PHQ-9 Depression Total Score: 24 022 3:31 PM CASING WORKER documented as of this encounter Care Teams Stock Saw Operator Relationship Specialty Start Date End Date Emilia Tang MD [address] [place] [address] PCP - General Family Medicine 06/07/22 03/25/23 Rebeka Trinidad MD [address] [place] [address] PCP - General Family Medicine 03/26/23 03/29/24 Lorri Leo APRN, POULTRY DRESSING WORKER [address] [place] [address] PCP - General Certified Nurse Practitioner 03/30/24 04/20/24 Rebeka Trinidad MD [address] [place] [address] PCP - General Family Medicine 04/21/24 04/21/24 Lorri Leo APRN, POULTRY DRESSING WORKER [address] [place] [address] PCP - General Certified Nurse Practitioner 04/22/24 05/30/24 Tani Biggs PAC [address] [place] [address] PCP - General Physician Skiagrapher 05/31/24 Phil Jacobo MD #[address] [place] [address] Consulting Physician Neurology 03/07/21 Rajiv Mccormack, HOG ROOM SUPERVISOR [address] [place] [address] Nurse Practitioner Gastroenterology 03/07/21 Alize Acosta, BUYER BROKER, POULTRY DRESSING WORKER [address] [place] [address] Virtual Advanced Care (VAC) CARD CHECKER Advanced Practice Nurse 08/30/21 Dayo Chaney MD [address] [place] [address] Shrink Pit Operator Cardiovascular Disease - Cardiology 09/20/21 02/12/24 Juanita Mercado RN [place] Registered Nurse Cardiology 12/24/21 02/12/24 David Salmon MD #[address] [address] Consulting Physician Endocrinology 01/15/22 Maurilio Farley MD #[address] [address] Consulting Physician Colon and Rectal Surgery 09/20/22 PhysicianCandida MD [address] [place] [address] Family Medicine 01/25/22 03/18/23 Dom Quiñonez MD #[address] [place] [address] Consulting Physician Pulmonary Disease 11/19/21 Rachelle Nava, BUYER BROKER, OFFICE SYSTEM ANALYST #[address] [place] [address] Nurse Practitioner Advanced Practice Nurse 07/19/22 Irais Naylor APRN, POULTRY DRESSING WORKER #2 [facility], [facility] [address] [place] [address] Nurse Practitioner Cardiology 06/27/23 07/29/24 Sharri Gaspar MD 2 [facility], [place]. [address] [place] [address] Consulting Physician Cardiology 04/26/24 Amber Aldrich APRN, POULTRY DRESSING WORKER #[address] [place] [address] Nurse Practitioner Cardiology 07/30/24 documented as of this encounter
--- OUTSIDE RECORDS SUMMARY | 2024-09-20 11:59 | XMS_ITS | Encounter Summary ---
Author Organization [facility] Address [address] [place] [address] Phone Care Team Providers Care Moss Gatherer Name Role Phone Jackeline Dimas MANAGER ACTION, SENIOR ANALYST MARKET INTELLIGENCE Primary Care Provider Phil Jacobo MD Unavailable [phone] Rajiv Mccormack NP Unavailable Unavailable Alize Acosta MANAGER ACTION, SENIOR ANALYST MARKET INTELLIGENCE Unavailable [phone] Dayo Chaney MD Unavailable Juanita Hauser RN Unavailable UnavailDavid Alexandre MD Unavailable Emilia Tang MD Primary Care Provider [phone] Maurilio Farley MD Unavailable Physician, Candida Davis MD Unavailable Rebeka Trinidad MD Primary Care Provider + [phone] Dom Quiñonez MD Unavailable Rachelle Nava MANAGER ACTION, WAREHOUSE ORDER PULLER Unavailable + [phone] Irais Naylor MANAGER ACTION, SENIOR ANALYST MARKET INTELLIGENCE Unavailable + [phone] Lorri Leo MANAGER ACTION, SENIOR ANALYST MARKET INTELLIGENCE Primary Care Provider [phone] Rebeka Trinidad MD Primary Care Provider + [phone] AhmetLorri Annetta MANAGER ACTION, [facility] Primary Care Provider + [phone] Sharri Gaspar MD Unavailable Tani Biggs [facility] Primary Care Provider [phone] Amber Aldrich MANAGER ACTION, [facility] Unavailable Reason for Visit * Reason Comments Medication Refill Encounter Details Date Type Department Care Team (Late st Contact Info) Description 01/13/2022 Refill [facility] - Primary Care - [place] [address] [place] [address] Jackeline Dimas MANAGER ACTION, [facility] [address] [place] [address] Medication Refill Social History Tobacco Use Types Packs/Day Years Used Date Smoking Tobacco: Former Cigarettes 0.5 15 0 04/12/2006 - 04/12/2021 Smokeless Tobacco: Never Alcohol Use Standard Drinks/Week Comments Not Currently 0 (1 standard drink = 0.6 oz pur e alcohol) last drank 2 years ago PHQ-2 Answer Date Recorded Total Score - Questions 1-9 24 10/2021 Sexually Active Control Partners Comments Not Currently Comments No Sex and Gender Information Value Date Recorded Sex Assigned at Female 10/21/2022 4:24 PM CDT Legal Sex Female 10:38 PM CDT Gender Identity Female 10/21/2022 4:24 PM CDT Sexual Orientation Not on file 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 Unable to assess 01/16/2022 3:15 PM SENIOR SSIS DEVELOPER documented as of this encounter Miscellaneous Notes * Telephone Encounter - Elizabeth Cabrales RN - 01/14/2022 10:14 AM CST Medication was discontinued on 11/13/21 OR SSIS DEVELOPER documented in this encounter Plan of Treatment Upcoming Encounters Date Type Department Care Team (Late st Contact Info) Description 09/21/2024 3:20 PM CDT [facility] [address] [place] [address] Melony Asif Stacey, PAC [address] [place] [address] Discharge Disposition: Discharged to home or Selfcare 10/18/2024 1:00 PM CDT Office Visit [facility] Medical [facility] - Pulmonology & Sleep Medicine [facility] #2 [place] [address] Dom Quiñonez MD #[address] [place] [address] 10/26/2024 1:00 PM CDT Office Visit [facility] - Cardiology - [place] [address] [place] [address] Amber Aldrich APRN, SENIOR ANALYST MARKET INTELLIGENCE #[address] [place] [address] 11/09/2024 2:00 PM CDT Telemedicine [facility] [address] [place] [address] Alize Acosta, MANAGER ACTION, SENIOR ANALYST MARKET INTELLIGENCE [address] [place] [address] 11/18/2024 3:45 PM CDT Office Visit [facility] - Endocrinology - [place] [address] [place] [address] David Salmon MD #[address] [address] 03/04/2025 3:10 PM SENIOR SSIS DEVELOPER Lab [facility] - [place] [address] [place] [address] Lab, [facility] 03/04/2025 3:30 PM SENIOR SSIS DEVELOPER Office [facility] [place] [address] [place] [address] Tani Biggs PAC [address] [place] [address] documented as of this encounter Goals Goal Patient Goal Type Associated Problems Recent Progress Patient-Stated? Author Chronic Disease Management Chronic Disease Management Improving( 2:39 PM CDT) Renita Spann RN Note: [...] follow up with my doctors as recommended. Depression Depression Improving( 2:27 PM SENIOR SSIS DEVELOPER) Breanne Barragan, OIL PROSPECTING OBSERVER Note: Goal/Objective: Decrease symptoms of depression associated with grief and loss as well as the increase of anxiety and panic with follow up with out patient counseling. Anticipated Time Frame for Goal Completion: 2 week Constipation General Improving( 2:41 PM CDT) Yes Xiomy Linda, RN [...] regular. 2000mg Sodium Daily Sodium Intake On track(2023 2:42 PM CDT) No Xiomy Linda, RN Note: Goal: I will reduce my [...] 19 04/18/2024 04/18/2024 04/18/2024 10:4 7 PM SENIOR SSIS DEVELOPER Respiratory Rule-Out 05/06/2024 05/06/2024 025 9:20 AM SENIOR SSIS DEVELOPER COVID - 19 05/06/2024 05/06/2024 05/06/2024 9:19 AM SENIOR SSIS DEVELOPER Assessment Noted Time PHQ-9 Depression Total Score: 0 09/01/19 20 11:58 AM CDT documented as of this encounter Care Teams Moss Gatherer Relationship Specialty Start Date End Date Jackeline Dimas, MANAGER ACTION, SENIOR ANALYST MARKET INTELLIGENCE [address] [place] [address] PCP - General Advanced Practice Nurse 07/31/17 Emilia Tang MD [address] [place] [address] PCP - General Family Medicine 06/07/22 03/25/23 Rebeka Trinidad [place] [address] [address] PCP - General Family Medicine 03/26/23 03/29/24 Lorri Leo APRN, SENIOR ANALYST MARKET INTELLIGENCE [address] [place] [address] PCP - General Certified Nurse Practitioner 03/30/24 04/20/24 Rebeka Trinidad MD [address] [place] [address] PCP - General Family Medicine 04/21/24 04/21/24 Lorri Leo APRN, SENIOR ANALYST MARKET INTELLIGENCE [address] [place] [address] PCP - General Certified Nurse Practitioner 04/22/24 05/30/24 Tani Biggs PAC [address] [place] [address] PCP - General Physician Elevator Installer Apprentice 05/31/24 Phil Jacobo MD #[address] [place] [address] Consulting Physician Neurology 03/07/21 Rajiv Mccormack, CULLET CRUSHER #[address] [place] [address] Nurse Practitioner Gastroenterology 03/07/21 Alize Acosta APRN, SENIOR ANALYST MARKET INTELLIGENCE [address] [place] [address] [place] [address] Virtual Advanced Care (VAC) PRODUCTION STAGE MANAGER Advanced Practice Nurse 08/30/21 Dayo Chaney MD [address] [place] [address] Oil Pipeline Dispatcher Cardiovascular Disease - Cardiology 09/20/21 02/12/24 Juanita Mercado, SEBASTIAN [place] Registered Nurse Cardiology 12/24/21 02/12/24 David Salmon MD #[address] [address] Consulting Physician Endocrinology 01/15/22 Maurilio Farley MD #[address] [address] Consulting Physician Colon and Rectal Surgery 09/20/22 PhysicianCandida MD [address] [place] [address] Family Medicine 01/25/22 03/18/23 Dom Quiñonez MD #[address] [place] [address] Consulting Physician Pulmonary Disease 11/19/21 Rachelle Nava APRN, WAREHOUSE ORDER PULLER #[address] [place] [address] Nurse Practitioner Advanced Practice Nurse 07/19/22 Irais Naylor APRN, SENIOR ANALYST MARKET INTELLIGENCE #[address] [address] Nurse Practitioner Cardiology 06/27/23 07/29/24 Sharri Gaspar MD [address] [address] Consulting Physician Cardiology 04/26/24 Amber Aldrich APRN, SENIOR ANALYST MARKET INTELLIGENCE #[address] [place] [address] Nurse Practitioner Cardiology 07/30/24 documented as of this encounter
--- OUTSIDE RECORDS SUMMARY | 2024-09-20 11:59 | XMS_ITS | Encounter Summary ---
Author Organization [facility] Address [address] [place] [address] Phone Care Team Providers Care Legal Secretary Receptionist Name Role Phone Jackeline Dimas TECHNICAL PRODUCER, CLAY PIGEON LOADER Primary Care Provider Fiona Martinez PREPARATOR Unavailable Unavailab Phil Ellis MD Unavailable [phone] Rajiv Mccormack NP Unavailable Unavailable Renita Quezada RN Unavailable Unavailable Alize Acosta TECHNICAL PRODUCER, CLAY PIGEON LOADER Unavailable +[phone] Dayo Chaney MD Unavailable Juanita Hauser RN Unavailable Unavaila David Martinez MD Unavailable Emilia Tang MD Primary Care Provider [phone] Maurilio Farley MD Unavailable Candida Turner MD Unavailable Rebeka Trinidad MD Primary Care Provider + [phone] Dom Quiñonez MD Unavailable Rachelle Nava TECHNICAL PRODUCER, MORTGAGE BRANCH MANAGER Unavailable + [phone] Irais Naylor TECHNICAL PRODUCER, CLAY PIGEON LOADER Unavailable + [phone] AhmetAngélicamando Littlejohn TECHNICAL PRODUCER, CLAY PIGEON LOADER Primary Care Provider + [phone] Rebeka Trinidad MD Primary Care Provider + [phone] Lorri Leo TECHNICAL PRODUCER, CLAY PIGEON LOADER Primary Care Provider [phone] Sharri Gaspar MD Unavailable Tani Biggs [facility] Primary Care Provider + [phone] Amber Aldrich TECHNICAL PRODUCER, CLAY PIGEON LOADER Unavailable Reason for Visit * Reason Comments Medication Refill Encounter Details Date Type Department Care Team (Late Contact Info) Description 10/12/2020 Refill [facility] Primary Care - [place] [address] [place] [address] Jackeline Dimas, TECHNICAL PRODUCER, [facility] [address] [place] [address] Medication Refill Social History Tobacco [...] 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 No / Unsure 09/26/2020 7:30 AM CDT documented as of this encounter Plan of Treatment Upcoming Encounters Date Type Department Care Team (Late Contact Info) Description 09/21/2024 3:20 PM CDT Office Visit [facility] On[facility] Services [address] [place] [phone] Melony Asif, ESTRELLITA [address] [place] [address] Discharge Disposition: Discharged to home or Selfcare 10/18/2024 1:00 PM CDT Office Visit [facility] - Pulmonology & Sleep Medicine - [place] [address] [place] [address] Dom Quiñonez MD [address] [place] [address] 10/26/2024 1:00 PM CDT Office Visit [facility] - Cardiology - [place] [address] [place] [address] Amber Aldrich, TECHNICAL PRODUCER, CLAY PIGEON LOADER [address] [place] [address] 11/09/2024 2:00 PM CDT Telemedicine [facility] [address] [place] [address] Alize Acosta, TECHNICAL PRODUCER, CLAY PIGEON LOADER [address] [place] [address] 11/18/2024 3:45 PM CDT Office Visit [facility] - Endocrinology - [place] [address] [place] [address] David Salmon MD [address] [address] 03/04/2025 3:10 PM GLUER MACHINE OPERATOR Lab [facility] - Primary Care - [place] [facility] [place] [address] [place] 03/04/2025 3:30 PM GLUER MACHINE OPERATOR Office Visit [facility] - Primary Care - [place] [address] [place] [address] Tani Biggs PAC [address] [place] [address] documented as of this encounter Visit Diagnoses Diagnosis Type 2 diabetes mellitus with hyperglycemia, without long-term current use of insulin (HCC) documented in this encounter Additional Health Concerns Infection Onset Date Last Indicated Resolved Time COVID - 19 01/08/2021 01/08/2021 01/28/2021 12:1 6 AM GLUER MACHINE OPERATOR COVID - 19 03/12/2021 03/12/2021 04/01/2021 12:1 6 AM GLUER MACHINE OPERATOR COVID - 19 12/15/2021 12/15/2021 12/15/2021 7:26 PM CDT COVID - 19 Confirmed 12/15/2021 12/15/2021 022 12:16 AM CDT COVID - 19 04/18/2024 04/18/2024 04/18/2024 10:4 7 PM GLUER MACHINE OPERATOR Respiratory Rule-Out 05/06/2024 05/06/2024 025 9:20 AM GLUER MACHINE OPERATOR COVID - 19 05/06/2024 05/06/2024 05/06/2024 9:19 AM GLUER MACHINE OPERATOR Assessment Noted Time PHQ-9 Depression Total Score: 0 09/01/19 20 11:58 AM CDT documented as of this encounter Care Teams Legal Secretary Receptionist Relationship Specialty Start Date End Date Jackeline Dimas, TECHNICAL PRODUCER, CLAY PIGEON LOADER [address] [place] [address] PCP - General Advanced Practice Nurse 07/31/17 Emilia Tang MD [address] [place], [place] [id number] PCP - General Family Medicine 06/07/22 03/25/23 Rebeka Trinidad MD [address] [place] [address] PCP - General Family Medicine 03/26/23 03/29/24 Lorri Leo APRN, CLAY PIGEON LOADER [address] [place] [address] PCP - General Certified Nurse Practitioner 03/30/24 04/20/24 Rebeka Trinidad MD [address] [place] [address] PCP - General Family Medicine 04/21/24 04/21/24 Lorri Leo APRN, CLAY PIGEON LOADER [address] [place] [address] PCP - General Certified Nurse Practitioner 04/22/24 05/30/24 Tani Biggs, PAC [address] [place] [address] PCP - General Physician Inspector Type 05/31/24 Fiona Martinez, MARSHA [place] Agronomist 03/01/21 08/23/21 Phil Jacobo MD [address] [place] [address] Consulting Physician Neurology 03/07/21 Rajiv Mccormack, PLANT CULTURE MANAGER [address] [place] [address] Nurse Practitioner Gastroenterology 03/07/21 Renita Quezada, SEBASTIAN [place] Agronomist 05/09/21 08/23/21 Alize Acosta, TECHNICAL PRODUCER, CLAY PIGEON LOADER [address] [place] [address] Virtual Advanced Care (VAC) MALE INFERTILITY SPECIALIST Advanced Practice Nurse 08/30/21 Dayo Chaney MD [address] [place] [address] Brim Flexer Cardiovascular Disease - Cardiology 09/20/21 02/12/24 Juanita Mercado RN [place] Registered Nurse Cardiology 12/24/21 02/12/24 David Salmon MD #[address] [phone] Consulting Physician Endocrinology 01/15/22 Maurilio Farley MD #[address] [address] Consulting Physician Colon and Rectal Surgery 09/20/22 Physician, Candida Davis MD [address] [place], [place] [address] Family Medicine 01/25/22 03/18/23 Dom Quiñonez MD [address] [place] [address] Consulting Physician Pulmonary Disease 11/19/21 Rachelle Nava APRN, MORTGAGE BRANCH MANAGER [address] [place] [address] Nurse Practitioner Advanced Practice Nurse 07/19/22 Irais Naylor APRN, CLAY PIGEON LOADER [address] [address] Nurse Practitioner Cardiology 06/27/23 07/29/24 Sharri Gaspar MD [address] [address] Consulting Physician Cardiology 04/26/24 Amber Aldrich APRN, CLAY PIGEON LOADER [address] [place] [address] Nurse Practitioner Cardiology 07/30/24 documented as of this encounter
--- OUTSIDE RECORDS SUMMARY | 2024-09-20 11:59 | XMS_ITS | Referral Summary ---
Author Organization [facility] Address [address] [place] [address] Care Team Providers Care Industrial Sweeper Cleaner Name Role Phone Tani Biggs Primary Care Provider [phone] Encounters Date Type Department Care Team Description 08/18/2024 2:30 PM CDT Office Visit [facility] Gastroenterology at [address] [place] [address] Rajiv Sauceda NP Chronic superficial gastritis without bleeding (Primary Dx); Gastroesophageal reflux disease without esophagitis; History of GI bleed; Irritable bowel syndrome with both constipation and diarrhea; Slow transit constipation; Gastroparesis; Former smoker 07/01/2024 2:40 PM CDT Office Visit [facility] ENT [address] [facility] Building [address] [place] [address] Meli Dukes MD EDDI (obstructive sleep apnea) (Primary Dx); Intolerance of continuous positive airway pressure (CPAP) ventilation; Chronic combined systolic and diastolic CHF (congestive heart failure) (HCC); Type 2 diabetes mellitus with hyperglycemia, without long-term current use of insulin (HCC) from Last 3 Months Allergies Active Allergy Reactions Criticality Noted Date [...] 1 tablet (2 mg total) by mouth diabetic educator before breakfast 08/01/19 21 Active allopurinoL (ZYLOPRIM) [...] (150 mg total) by mouth nightly 11/07/19 23 Active polyethylene glycol (MIRALAX) 17 gram/dose bulk [...] day with meals 180 capsule 3 08/24/19 025 Active Mounjaro 15 mg/0.5 mL pen injector injection Inject 0.5 mL (15 mg total) under the skin every 7 days Q Friday07/16/19 25 Active insulin glargine (LANTUS) 100 unit/mL (3 mL) pen for injection Inject 30 Units under the skin diabetic educator before breakfast 04/17/19 22 025 Discontin ued(Thera [...] + MRI () - right kidney mass ([facility] [place]). Creatinine 1.1. Hx of post-menopausal bleeding s/p [...] + MRI () - right kidney mass ([facility] [place]). Creatinine 1.1. Hx of post-menopausal bleeding s/p [...] + MRI () - right kidney mass ([facility] [place]). Creatinine 1.1. Hx of post-menopausal bleeding s/p [...] (04/29/2022): Added automatically from request for surgery [id number] Internal hemorrhoids 04/25/2022 Gastroparesis 05/23/2021 Erosive gastritis [...] use of insulin 07/16/2017 Precordial pain 07/16/2017 Immunizations Immunization Administration Dates Next Due Influenza, Quadrivalent, Spl it, Preservative Free, Intramuscular 02/06/2023,11/13/2021,11/30/2020,12/15 Influenza, Trivalent, IM (MDV) 12/23/2019 Influenza, Unspecified 12/23/2019 Pneumococcal Conjugate Pcv20 06/07/2022 Pneumococcal Polysaccharide PPV23 05/29/2021 Tdap 06/07/2022 ZOSTER Recombinant 07/13/2022 Social History Tobacco Use Types Packs/Day Years [...] on file Legal Sex Female 9:19 AM POLICE SUPERINTENDENT Gender Identity Female 06/03/2023 11:21 AM CDT Sexual Orientation Villegas 01/18/2021 9: 53 AM POLICE SUPERINTENDENT Last Filed Vital Signs Vital Sign Reading Time Taken Comments Blood Pressure 115/78 08/18/2024 2:27 PM CDT Pulse 99 08/18/2024 2:27 PM CDT Temperature 36.6 C (97.9 F) 04/19/2023 11:55 AM POLICE SUPERINTENDENT Respiratory Rate 19 04/19/2023 8:16 AM POLICE SUPERINTENDENT Oxygen Saturation 96% 08/18/2024 2:27 PM CDT Inhaled Oxygen Concentration - - Weight 73.7 kg (162 lb 6.4 oz) 08/18/2024 2:27 P M CDT Height 160 cm (5' 3) 08/18/2024 2:27 PM CDT Body Mass Index 28.77 08/18/2024 2:27 PM CDT Plan of Treatment Upcoming Encounters Date Type Department Care Team (Late st Contact Info) Description 09/21/2024 8:00 AM CDT Hospital Encounter [facility] Operating Room [id number] [place] [address] [place] [id number] [place] [address] 09/21/2024 8:00 AM CDT Anesthesia Event [facility] Operating Room [address] [place] [address] Serenity Nicole MD PhD [address] [place] [address] [place] [address] [address] 09/21/2024 8:00 AM CDT - 09/21/2024 8:30 AM CDT Surgery [facility] Operating Room [address] [place] [address] [place] [id number] [place] [address] [id number] DRUG INDUCED SLEEP ENDOSCOPY/15MIN Scheduled Procedures Name Priority Associated Diagnoses Date/Ti me DRUG INDUCED SLEEP ENDOSCOPY EVAL FLEX DIAG EDDI (obstructive sleep apnea) 09/21/2024 8:00 AM CDT Goals Goal Patient Goal Type Associated Problems Recent Progress Patient-Stated? Author CCM Chronic Pain Care Plan Chronic Care Management Kelli Rolle, RN Note: Problem: Chronic Pain Goals: 1. Minimize further functional decline 2. Maximize quality of life 3. Control pain Strategies: - Activity/exercise program recommendation - Conservative stepwise pain medicine strategy with multi-disciplinary approach - Recommend healthy lifestyle strategies and compensatory methods as needed Reduce the likelihood of falling Lifestyle Kelli Rolle, SEBASTIAN Note: Below are four things you can [...] on stairs Contact your local community or [facility] for information on exercise, fall prevention programs, or options for improving home safety. Procedures Procedure Name Priority Date/Time Associated Diagnosis Comments EGFR Timed 04/18/2023 11:04 PM POLICE SUPERINTENDENT HEMOGLOBIN A1C STAT 04/15/2023 10:25 PM POLICE SUPERINTENDENT HIGH RISK HPV DNA DETECTION WITH GENOTYPING Routine 02/13/2023 1:39 PM POLICE SUPERINTENDENT Postmenopausal bleeding LIPID PANEL Routine 08/31/2016 6:28 AM CDT from Last 3 Months or Most Recently Relevant to Health Maintenance Results * eGFR (04/18/2023 11:04 PM POLICE SUPERINTENDENT) eGFR 65 >=60 mL/min/1. 73 m2 [facility] Comment: Interpretive Data Reference Interval Normal >/= [...] reviewed 2021. Blood 04/18/2023 11:0 4 PM POLICE SUPERINTENDENT 04/19/2023 12:33 AM POLICE SUPERINTENDENT Gerard Rodriguez MD LAB BLOOD ORDERABLES Fin al Result Performing Organization Address [facility] [place] [address] * (ABNORMAL) Hemoglobin A1c (04/15/2023 10:25 PM POLICE SUPERINTENDENT) Hgb A1C 5.8(H) 4.0 - 5.6 % [facility] Estimated Average Glucose 120 mg/dL [facility] Comment: The ADA recommends reporting an estimated Average Glucose (eAG) with all Hemoglobin A1c results using the equation derived from a study of 507 normal and diabetic adults. Minority populations were underrepresented and children were not included. (Diabetes Care 2020; 43(S1): S66-S76). The eAG is not equivalent to a fasting glucose. Blood 04/15/2023 10:2 5 PM POLICE SUPERINTENDENT 04/15/2023 11:38 PM POLICE SUPERINTENDENT Gerard Rodriguez MD LAB BLOOD ORDERABLES Fin al Result Performing Organization Address [facility] [place] [address] * High Risk HPV DNA Detection with Genotyping (Molecular component) (02/13/2023 1:39 PM POLICE SUPERINTENDENT) HPV HR 16 Not Detected Not Detected [facility] HPV HR 18 Not Detected Not Detected [facility] HPV HR Non 16/18 Not Detected Not Detected [facility] Comment: Interpretive Data Nucleic acid amplification for [...] this test have been verified by the [facility] Molecular Infectious Disease laboratory. Correlate with separately reported cytology results, as applicable. Interpretive data last revised 22 [facility] 02/13/2023 1:39 PM POLICE SUPERINTENDENT 02/14/2023 7:00 AM POLICE SUPERINTENDENT Narrative [facility] 02/15/2023 2:10 AM POLICE SUPERINTENDENT Clinical history and diagnosis->screening pap Testing type->Screening Last menstrual period (date if known)->2020 Maty Gilbert MD LAB BODY FLUIDS AND STOOLS OR DERABLES Final Result [facility] Department [place] [address] * (ABNORMAL) Lipid panel (08/31/2016 6:28 AM [...] 6:28 AM CDT 08/31/2016 6:47 AM CDT Abdirahman Ball MD LAB BLOOD ORDERABLES Final Re sult [facility] ([place]) [facility] [place] [address] from Last 3 Months or Most Recently Relevant to Health Maintenance Insurance [facility] MEDICARE ADVANTAGE [facility] MEDICARE Address: [facility] [address] [place] [address] IDPA [facility] MEDICARE ADVANTAGE [facility] MEDICARE Address: [facility] [address] [place] [address] IDPA [facility] [place] [address] Advance Directives For more information, please contact: [phone] * Full Code (Latest Code Status on [...] 11:00 AM 02/27/2021 11:00 AM Care Teams Industrial Sweeper Cleaner Relationship Specialty Start Date End Date Tani Biggs PA [address] [place] [address] PCP - General Orthopedic Surgery 09/13/24
--- OUTSIDE RECORDS SUMMARY | 2024-09-20 11:59 | XMS_ITS | Encounter Summary ---
Author Organization [facility] Address [address] [place] [address] Phone Care Team Providers Care Load Manager Name Role Phone Phil Jacobo MD Unavailable [phone] Rajiv Mccormack NP Unavailable Unavailable Alize Acosta APRN, BOX SEALING MACHINE OPERATOR Unavailable [phone] Dayo Chaney MD Unavailable Juanita Hauser RN Unavailable UnavailDavid Alexandre MD Unavailable Maurilio Farley MD Unavailable Rebeka Trinidad MD Primary Care Provider + [phone] Dom Quiñonez MD Unavailable Rachelle Nava CHEMICAL PLANT WORKER, NETWORK INFRASTRUCTURE ARCHITECT Unavailable + [phone] Irais Naylor CHEMICAL PLANT WORKER, BOX SEALING MACHINE OPERATOR Unavailable + [phone] Lorri Leo CHEMICAL PLANT WORKER, BOX SEALING MACHINE OPERATOR Primary Care Provider + [phone] Rebeka Trinidad MD Primary Care Provider + [phone] Lorri Leo CHEMICAL PLANT WORKER, BOX SEALING MACHINE OPERATOR Primary Care Provider + [phone] Sharri Gaspar MD Unavailable Tani Biggs [facility] Primary Care Provider [phone] Amber Aldrich APRN, CNP Unavailable Reason for Visit * Reason Comments Medication Refill Encounter Details Date Type Department Care Team (Late st Contact Info) Description 06/20/2023 Refill [facility] - Endocrinology - [place] [address] [place] [address] David Salmon MD [address] [address] Medication Refill Social History Tobacco Use Types Packs/Day Years Used Date Smoking Tobacco: Former Cigarettes 1 37.1 1 985 - 04/12/2021 Smokeless Tobacco: Never Alcohol Use Standard Drinks/Week Comments Not Currently 0 (1 standard drink = 0.6 oz pur e alcohol) last drank 2020 [facility] Utilities Answer Date Recorded In the past 12 months has [employer] electric, gas, oil, or water company threatened [...] you attend [facility] or [facility] services? More than 4 times per year 03/24/2023 Do you belong to any clubs o r organizations such as episcopalian groups, unions, fraternal or athletic groups, or [...] Total Score - Questions 1-9 18 10/10 [facility] of Occupat ional [facility] - Occupational Stress Questionnaire Answer Date [...] place to sleep or slept in a residential (including now)? 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 documented in this encounter Plan of Treatment Upcoming Encounters Date Type Department Care Team (Late st Contact Info) Description 09/21/2024 3:20 PM CDT [facility] [address] [place] [address] Melony Asif, PAC [address] [place] [address] Discharge Disposition: Discharged to home or Selfcare 10/18/2024 1:00 PM CDT [facility] - Pulmonology & Sleep Medicine [facility] [address] [place] [address] Dom Quiñonez MD [address] [place] [address] 10/26/2024 1:00 PM CDT Office Visit [facility] - Cardiology - [place] [address] [place] [address] Amber Aldrich APRN, BOX SEALING MACHINE OPERATOR [address] [place] [address] 11/09/2024 2:00 PM CDT Telemedicine [facility] [address] [place] [address] Alize Acosta APRN, BOX SEALING MACHINE OPERATOR [address] [place] [address] 11/18/2024 3:45 PM CDT Office Visit [facility] Medical [facility] - Endocrinology - [place] [address] [place] [address] David Salmon MD [address] [address] 03/04/2025 3:10 PM CHIEF MATE Lab [facility] Primary [facility] - [address] [address] [place] [address] [facility] 03/04/2025 3:30 PM CHIEF MATE Office Visit [facility] - [place] [address] [place] [address] Tani Biggs PAC [address] [place] [address] documented as of this encounter [...] making a change Department associated with goal: [facility] Steps to achieve [...] diet Depression Depression Improving(0 03/15/2022 2:27 PM CHIEF MATE) No Breanne Saldana LCSW Note: Goal/Objective: Decrease [...] 19 04/18/2024 04/18/2024 04/18/2024 10:4 7 PM CHIEF MATE Respiratory Rule-Out 05/06/2024 05/06/2024 025 9:20 AM CHIEF MATE COVID - 19 05/06/2024 05/06/2024 05/06/2024 9:19 AM CHIEF MATE Assessment Noted Time PHQ-9 Depression Total Score: 18 023 9:24 AM CDT documented as of this encounter Care Teams Load Manager Relationship Specialty Start Date End Date Rebeka Trinidad MD [address] [place] [address] PCP - General Family Medicine 03/26/23 03/29/24 Lorri Leo APRN, BOX SEALING MACHINE OPERATOR [address] [place] [address] PCP - General Certified Nurse Practitioner 03/30/24 04/20/24 Rebeka Trinidad MD [address] [place] [address] PCP - General Family Medicine 04/21/24 04/21/24 Lorri Leo APRN, BOX SEALING MACHINE OPERATOR [address] [place] [address] PCP - General Certified Nurse Practitioner 04/22/24 05/30/24 Tani Biggs PAC [address] [place] [address] PCP - General Physician Drum Dyeing Machine Operator 05/31/24 Phil Jacobo MD [address] [place] [address] Consulting Physician Neurology 03/07/21 Rajiv Mccormack, KELI [address] [place] [address] Nurse Practitioner Gastroenterology 03/07/21 Alize Acosta, RUSSELL, BOX SEALING MACHINE OPERATOR [address] [place] [address] Virtual [facility] (VAC) ENTERPRISE MANAGER Advanced Practice Nurse 08/30/21 Dayo Chaney MD [address] [place] [address] Engine Testing Supervisor Cardiovascular Disease - Cardiology 09/20/21 02/12/24 Juanita Mercado RN [place] Registered Nurse Cardiology 12/24/21 02/12/24 David Salmon MD [address] [address] Consulting Physician Endocrinology 01/15/22 Maurilio Farley MD #[address] [address] Consulting Physician Colon and Rectal Surgery 09/20/22 Dom Quiñonez MD [address] [place] [address] Consulting Physician Pulmonary Disease 11/19/21 Rachelle Nava APRN, NETWORK INFRASTRUCTURE ARCHITECT [address] [place] [address] Nurse Practitioner Advanced Practice Nurse 07/19/22 Irais Naylor APRN, BOX SEALING MACHINE OPERATOR [address]2 [facility] [address] [place] [address] Nurse Practitioner Cardiology 06/27/23 07/29/24 Sharri Gaspar MD 2 [facility] [address] [place] [address] Consulting Physician Cardiology 04/26/24 Amber Aldrich APRN, BOX SEALING MACHINE OPERATOR [address] [place] [address] Nurse Practitioner Cardiology 07/30/24 documented as of this encounter
--- OUTSIDE RECORDS SUMMARY | 2024-09-20 11:59 | XMS_ITS | Encounter Summary ---
Author Organization [facility] Address [address] [place] [address] Phone Care Team Providers Care Saddle Maker Name Role Phone Phil Jacobo MD Unavailable [phone] Rajiv Mccormack NP Unavailable Unavailable Alize Acosta HOUSEKEEPING ASSOCIATE, OPERATIONS MGR Unavailable David Salmon MD Unavailable Maurilio Farley MD Unavailable Rebeka Trinidad MD Primary Care Provider + [phone] Dom Quiñonez MD Unavailable Rachelle Nava HOUSEKEEPING ASSOCIATE, SENIOR CYTOGENETICS LABORATORY DIRECTOR Unavailable + [phone] Irais Naylor HOUSEKEEPING ASSOCIATE, OPERATIONS MGR Unavailable + [phone] Lorri Leo APRN, OPERATIONS MGR Primary Care Provider + [phone] Rebeka Trinidad MD Primary Care Provider + [phone] Lorri Leo APRN, OPERATIONS MGR Primary Care Provider + [phone] Sharri Gaspar MD Unavailable Tani Biggs [facility] Primary Care Provider Amber Aldrichsweetie MOJICAN, OPERATIONS MGR Unavailable Encounter Details Date Type Department Care Team (Late st Contact Info) Description 02/25/2024 Telephone [facility] [address] [place] [address] Rebeka Trinidad MD [address] [place] [address] Social History Tobacco Use Types Packs/Day Years Used Date Smoking Tobacco: Every Day Cigarettes 1 37.1 Started: 1984; Last attempted to quit: 04/12/2021 Smokeless Tobacco: Never Alcohol Use Standard Drinks/Week Comments Not Currently 0 (1 standard drink = 0.6 oz pur e alcohol) Last drink in 2020 [facility] Utilities Answer Date Recorded In the past 12 months has [employer], gas, oil, or water company threatened to [...] Never 09/08/2023 How often do you attend [facility] or orthodox services? 1 to 4 times per year 09/08/2023 Do you belong to any clubs o r organizations such as denominational groups, unions, fraternal or athletic groups, or [...] Date Recorded Total Score - Questions 1-9 17 01/08 [facility] - Occupational Stress Questionnaire Answer Date Recorded [...] a nursing home (including now)? No 03/24/2023 Housing Stability Vital Sign Answer Jovany e Recorded In the last 12 months, was t here a time when you were not able to pay the mortgage or rent on time? Yes 09/08/2023 In the past 12 months, how m any times have you moved where you were living? 0 09/08/2023 At any time in the past 12 m [facility], were you homeless or living in a nursing home (including now)? 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 [address] [place] [phone] Melony Asif, ESTRELLITA [address] [place] [address] Discharge Disposition: Discharged to home or Selfcare 10/18/2024 1:00 PM CDT [facility] - [place] [address] [place] [address] Dom Quiñonez MD [address] [place] [address] 10/26/2024 1:00 PM CDT [facility] - [place] [address] [place] [address] Amber Aldrich APRN, OPERATIONS MGR [address] [place] [address] 11/09/2024 2:00 PM CDT Telemedicine [facility] [address] [place] [phone] Alize Acosta, HOUSEKEEPING ASSOCIATE, OPERATIONS MGR [address] [place] [address] 11/18/2024 3:45 PM CDT Office Visit [facility] - Endocrinology - [place] [address] [place] [address] David Salmon MD [address] [address] 03/04/2025 3:10 PM ORDER MANAGEMENT SPECIALIST Lab [facility] [address] [address] [place] [address] [facility] 03/04/2025 3:30 PM ORDER MANAGEMENT SPECIALIST Office Visit [facility] [place] [address] [place] [address] Tani Biggs, [facility] [address] [place] [address] documented as of this encounter Goals Goal Patient Goal Type Associated Problems Recent Progress Patient-Stated? Author ACTIVITY Activity No change(08/08 2:42 PM CDT) Yes Maritza Vanegas, RN Note: Bonny will walk five days a week. Goal Reviewed with: Bonny Readiness to change: Department associated with goal: [facility] Steps to achieve goal: [...] making a change Department associated with goal: [facility] Steps to achieve [...] diet Depression Depression Improving(0 03/15/2022 2:27 PM ORDER MANAGEMENT SPECIALIST) No Breanne Saldana LCSW Note: Goal/Objective: Decrease [...] Healthy Lifestyle Improving(0 08/16/2024 1:04 PM CDT) Meli Cotter, RN Note: Goal: monitor vitals 3 times [...] Intake On track(08/24 2:42 PM CDT) Xiomy Gundesron, RN Note: Goal: I will reduce my [...] 19 04/18/2024 04/18/2024 04/18/2024 10:4 7 PM ORDER MANAGEMENT SPECIALIST Respiratory Rule-Out 05/06/2024 05/06/2024 025 9:20 AM ORDER MANAGEMENT SPECIALIST COVID - 19 05/06/2024 05/06/2024 05/06/2024 9:19 AM ORDER MANAGEMENT SPECIALIST Assessment Noted Time PHQ-9 Depression Total Score: 17 024 9:00 AM ORDER MANAGEMENT SPECIALIST documented as of this encounter Care Teams Saddle Maker Relationship Specialty Start Date End Date Rebeka Trinidad MD [address] [place] [address] PCP - General Family Medicine 03/26/23 03/29/24 Lorri Leo APRN, OPERATIONS MGR [address] [place] [address] PCP - General Certified Nurse Practitioner 03/30/24 04/20/24 Rebeka Trinidad MD [address] [place] [address] PCP - General Family Medicine 04/21/24 04/21/24 Lorri Leo HOUSEKEEPING ASSOCIATE, OPERATIONS MGR [address] [place] [address] PCP - General Certified Nurse Practitioner 04/22/24 05/30/24 Tani Biggs PAC [address] [place] [address] PCP - General Physician Engineering Technical Analyst 05/31/24 Phil Jaocbo MD [address] [place] [address] Consulting Physician Neurology 03/07/21 Rajiv Mccormack, TUBE BLOWER [address] [place] [address] Nurse Practitioner Gastroenterology 03/07/21 Alize Acosta, HOUSEKEEPING ASSOCIATE, OPERATIONS MGR [address] [facility] [place] [address] Virtual Advanced Care (VAC) IRON ERECTOR Advanced Practice Nurse 08/30/21 David Salmon MD #[address] [address] Consulting Physician Endocrinology 01/15/22 Maurilio Farley MD #[address] [address] Consulting Physician Colon and Rectal Surgery 09/20/22 Dom Quiñonez MD [address] [place] [address] Consulting Physician Pulmonary Disease 11/19/21 Rachelle Nava, HOUSEKEEPING ASSOCIATE, SENIOR CYTOGENETICS LABORATORY DIRECTOR [address] [place] [address] Nurse Practitioner Advanced Practice Nurse 07/19/22 Irais Naylor, HOUSEKEEPING ASSOCIATE, OPERATIONS MGR [address] [address] Nurse Practitioner Cardiology 06/27/23 07/29/24 Sharri Gaspar MD [address] [address] Consulting Physician Cardiology 04/26/24 Amber Aldrich APRN, OPERATIONS MGR [address] [place] [address] Nurse Practitioner Cardiology 07/30/24 documented as of this encounter
--- OUTSIDE RECORDS SUMMARY | 2024-09-20 11:59 | XMS_ITS | Encounter Summary ---
Author Organization [facility] Address [address] [place] [address] Phone Care Team Providers Care Boat Hop Name Role Phone Jackeline Dimas PROGRAM TRAINER, EXTRACTOR MACHINE OPERATOR Primary Care Provider Fiona Martinez MATERNAL FETAL PHYSICIAN Unavailable Unavailab Phil Ellis MD Unavailable +[phone] Rajiv Mccormack NP Unavailable Unavailable Renita Quezada RN Unavailable Unavailable Alize Acosta PROGRAM TRAINER, EXTRACTOR MACHINE OPERATOR Unavailable +[phone] Dayo Chaney MD Unavailable Juanita Hauser RN Unavailable Unavaila David Martinez MD Unavailable Emilia Tang MD Primary Care Provider [phone] Maurilio Farley MD Unavailable Candida Turner MD Unavailable Rebeka Trinidad MD Primary Care Provider + [phone] Dom Quiñonez MD Unavailable Rachelle Nava PROGRAM TRAINER, FOUNDRY SUPERINTENDANT Unavailable + [phone] Irais Naylor PROGRAM TRAINER, EXTRACTOR MACHINE OPERATOR Unavailable + [phone] Lorri Leo PROGRAM TRAINER, EXTRACTOR MACHINE OPERATOR Primary Care Provider + [phone] Rebeka Trinidad MD Primary Care Provider [phone] Lorri Leo PROGRAM TRAINER, EXTRACTOR MACHINE OPERATOR Primary Care Provider [phone] Sharri Gaspar MD Unavailable Tani Biggs Primary Care Provider + [phone] Amber Aldrich PROGRAM TRAINER, EXTRACTOR MACHINE OPERATOR Unavailable Reason for Visit * Reason Comments Medication Refill Encounter Details Date Type Department Care Team ([facility] Contact Info) Description [facility] [place] [address] Jackeline Dimas, PROGRAM TRAINER, EXTRACTOR MACHINE OPERATOR [address] [place] [address] Medication Refill Social History Tobacco Use Types Packs/Day Years Used Date Smoking Tobacco: Every Day Cigarettes 0.5 15 Smokeless Tobacco: Never Alcohol Use Standard Drinks/Week Comments Yes 0 (1 standard drink = 0.6 oz pur e alcohol) occasionally PHQ-2 Answer Date Recorded Total Score - Questions 1-9 1 04/2021 Comments No Sex and Gender Information Value Date Recorded Sex Assigned at Female 10/21/2022 4:24 PM CDT Legal Sex Female 10:38 PM CDT Gender Identity Female 10/21/2022 4:24 PM CDT Sexual Orientation Not on file 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 No / Unsure 05/07/2021 2:03 PM RN CASE MANAGEMENT documented as of this encounter Plan of Treatment Upcoming Encounters Date Type Department Care Team ([facility] Contact Info) Description 09/21/2024 3:20 PM CDT Office Visit [facility] Oncology Services [address] [place] [address] Melony Asif, [facility] [address] [place], [place] [id number] Discharge Disposition: Discharged to home or Selfcare 10/18/2024 1:00 PM CDT Office Visit [facility] - Pulmonology & Sleep Medicine - [place] [address] [place] [address] Dom Quiñonez MD [address] [place] [address] 10/26/2024 1:00 PM CDT Office Visit [facility] - Cardiology - [place] [address] [place] [address] Amber Aldrich, PROGRAM TRAINER, EXTRACTOR MACHINE OPERATOR [address] [place] [address] 11/09/2024 2:00 PM CDT Telemedicine [facility] [address] [place] [address] Alize Acosta, PROGRAM TRAINER, EXTRACTOR MACHINE OPERATOR [address] [place] [address] 11/18/2024 3:45 PM CDT Office Visit [facility] - Endocrinology - [place] [address] [place] [address] David Salmon MD #[address] [address] 03/04/2025 3:10 PM RN CASE MANAGEMENT Lab [facility] - Primary Care - [place] [address] [place] [address] [facility] [place] 03/04/2025 3:30 PM RN CASE MANAGEMENT Office Visit [facility] - Primary Care - [place] [address] [place] [address] Tain Biggs, ESTRELLITA [address] [place] [address] documented as of this encounter Goals Goal Patient Goal Type Associated Problems Recent Progress Patient-Stated? Author Chronic Disease Management Chronic Disease Management Improving( 2:39 PM CDT) Renita Spann, RN Note: [...] follow up with my doctors as recommended. documented as of this encounter Visit Diagnoses Not on filedocumented in this encounter Additional Health Concerns Infection Onset Date Last Indicated Resolved Time COVID - 19 12/15/2021 12/15/2021 12/15/2021 7:26 PM CDT COVID - 19 Confirmed 12/15/2021 12/15/2021 022 12:16 AM CDT COVID - 19 04/18/2024 04/18/2024 04/18/2024 10:4 7 PM RN CASE MANAGEMENT Respiratory Rule-Out 05/06/2024 05/06/2024 025 9:20 AM RN CASE MANAGEMENT COVID - 19 05/06/2024 05/06/2024 05/06/2024 9:19 AM RN CASE MANAGEMENT Assessment Noted Time PHQ-9 Depression Total Score: 0 09/01/19 20 11:58 AM CDT documented as of this encounter Care Teams Boat Hop Relationship Specialty Start Date End Date Jackeline Dimas APRN, EXTRACTOR MACHINE OPERATOR [address] [place] [address] PCP - General Advanced Practice Nurse 07/31/17 Emilia Tang MD [address] [place] [address] PCP - General Family Medicine 06/07/22 03/25/23 Rebeka Trinidad MD [address] [place] [address] PCP - General Family Medicine 03/26/23 03/29/24 Lorri Leo APRN, EXTRACTOR MACHINE OPERATOR [address] [place] [address] PCP - General Certified Nurse Practitioner 03/30/24 04/20/24 Rebeka Trinidad MD [address] [place] [address] PCP - General Family Medicine 04/21/24 04/21/24 Lorri Leo APRN, EXTRACTOR MACHINE OPERATOR [address] [place] [address] PCP - General Certified Nurse Practitioner 04/22/24 05/30/24 Tani Biggs, PAC [address] [place] [address] PCP - General Physician Illuminator 05/31/24 Fiona Martinez, MAR[place] Embossing Tool Setter 03/01/21 08/23/21 Phil Jacobo MD [address] [place] [address] Consulting Physician Neurology 03/07/21 Rajiv Mccormack, KELI [address] [place] [address] Nurse Practitioner Gastroenterology 03/07/21 Renita Quezada, SEBASTIAN [place] Embossing Tool Setter 05/09/21 08/23/21 Alize Acosta APRN, EXTRACTOR MACHINE OPERATOR [address] [place] [address] Virtual Advanced Care (VAC) AUTOMATIC THREAD WINDER Advanced Practice Nurse 08/30/21 Dayo Chaney MD [address] [place] [address] Metal Stamper Cardiovascular Disease - Cardiology 09/20/21 02/12/24 Juanita Mercado, SEBAST[place] Registered Nurse Cardiology 12/24/21 02/12/24 David Salmon MD #[address] [address] Consulting Physician Endocrinology 01/15/22 Maurilio Farley MD #[address] [address] Consulting Physician Colon and Rectal Surgery 09/20/22 PhysicianCandida MD [address] [place] [address] Family Medicine 01/25/22 03/18/23 Dom Quiñonez MD [address] [facility] [place] [place] [address] Consulting Physician Pulmonary Disease 11/19/21 Rachelle Nava, PROGRAM TRAINER, FOUNDRY SUPERINTENDANT [address] [facility] [place] [place] [address] Nurse Practitioner Advanced Practice Nurse 07/19/22 Irais Naylor, PROGRAM TRAINER, EXTRACTOR MACHINE OPERATOR #2 [facility] [address] [facility] [address] [place] [address] Nurse Practitioner Cardiology 06/27/23 07/29/24 Sharri Gaspar MD [address] [facility] [place] [facility] [address] [place] [address] Consulting Physician Cardiology 04/26/24 Amber Aldrich, PROGRAM TRAINER, EXTRACTOR MACHINE OPERATOR [address] [place] [address] Nurse Practitioner Cardiology 07/30/24 documented as of this encounter
--- OUTSIDE RECORDS SUMMARY | 2024-09-20 11:59 | XMS_ITS | Encounter Summary ---
Author Organization [facility] Address [address] [place] [address] Phone Care Team Providers Care Sales Inspector Name Role Phone Phil Jacobo MD Unavailable [phone] Rajiv Mccormack NP Unavailable Unavailable Alize Acosta LEGAL ADMINISTRATOR, TOLL GATE TENDER Unavailable +[phone] Dayo Chaney MD Unavailable Juanita Hauser RN Unavailable Unavaila David Martinez MD Unavailable Emilia Tang MD Primary Care Provider [phone] Maurilio Farley MD Unavailable PhysicianaCndida MD Unavailable Rebeka Trinidad MD Primary Care Provider + [phone] Dom Quiñonez MD Unavailable Rachelle Nava LEGAL ADMINISTRATOR, IMPORT/EXPORT FREIGHT FORWARDER Unavailable + [phone] Irais Naylor LEGAL ADMINISTRATOR, TOLL GATE TENDER Unavailable + [phone] Lorri Leo LEGAL ADMINISTRATOR, TOLL GATE TENDER Primary Care Provider + [phone] Rebeka Trinidad MD Primary Care Provider + [phone] Lorri Leo LEGAL ADMINISTRATOR, TOLL GATE TENDER Primary Care Provider + [phone] Sharri Gaspar MD Unavailable Tani Biggs Primary Care Provider + [phone] Valdemar Amber Louise LEGAL ADMINISTRATOR, TOLL GATE TENDER Unavailable Reason for Visit * Reason Comments Medication Refill Encounter Details Date Type Department Care Team (Late st Contact Info) Description 07/25/2022 Refill 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 Unable to assess 07/25/2022 3:59 PM CDT documented as of this encounter Miscellaneous Notes * Telephone Encounter - Adina Barrientos RN - 07/25/2022 7:59 AM CDT The original prescription was discontinued on 05/05/2022 by David Salmon MD for the following reason:Med List Clean Up documented in this encounter Plan of Treatment Upcoming Encounters Date Type Department Care Team (Late st Contact Info) Description 09/21/2024 3:20 PM CDT [facility] [address] [place] [address] Melony Asif Stacey, PAC [address] [place], [place] [address] Discharge Disposition: Discharged to home or Selfcare 10/18/2024 1:00 PM CDT [facility] [address] [place] [address] Dom Quiñonez MD [address] [place] [address] 10/26/2024 1:00 PM CDT Office Visit [facility] - Cardiology [facility] [address] [place] [address] Amber Aldrich APRN, TOLL GATE TENDER [address] [place] [address] 11/09/2024 2:00 PM CDT Telemedicine [facility] [address] [place] [address] Alize Acosta, LEGAL ADMINISTRATOR, TOLL GATE TENDER [address] [place] [address] 11/18/2024 3:45 PM CDT Office Visit [facility] - Endocrinology - [place] [address] [place] [address] David Salmon MD #[address] [address] 03/04/2025 3:10 PM TIMBER SUPERVISOR Lab [facility] [place] [address] [place] [address] [facility] 03/04/2025 3:30 PM TIMBER SUPERVISOR Office Visit [facility] [place] [address] [place] [address] Tani Biggs PAC [address] [place] [address] documented as of this encounter [...] as recommended. Depression Depression Improving( 2:27 PM TIMBER SUPERVISOR) Breanne Barragan LCSW Note: Goal/Objective: Decrease symptoms [...] 19 04/18/2024 04/18/2024 04/18/2024 10:4 7 PM TIMBER SUPERVISOR Respiratory Rule-Out 05/06/2024 05/06/2024 025 9:20 AM TIMBER SUPERVISOR COVID - 19 05/06/2024 05/06/2024 05/06/2024 9:19 AM TIMBER SUPERVISOR Assessment Noted Time PHQ-9 Depression Total Score: 24 022 3:31 PM TIMBER SUPERVISOR documented as of this encounter Care Teams Sales Inspector Relationship Specialty Start Date End Date Emilia Tang MD [address] [place] [address] PCP - General Family Medicine 06/07/22 03/25/23 Rebeka Trinidad MD [address] [place] [address] PCP - General Family Medicine 03/26/23 03/29/24 Lorri Leo APRN, TOLL GATE TENDER [address] [place] [address] PCP - General Certified Nurse Practitioner 03/30/24 04/20/24 Rebeka Trinidad MD [address] [place] [address] PCP - General Family Medicine 04/21/24 04/21/24 Lorri Leo APRN, TOLL GATE TENDER [address] [place] [address] PCP - General Certified Nurse Practitioner 04/22/24 05/30/24 Tani Biggs, [facility] [address] [place] [address] PCP - General Physician Product Info Specialist 05/31/24 Phil Jacobo MD [address] [place] [address] Consulting Physician Neurology 03/07/21 Rajiv Mccormack, CONSTRUCTION CHECKER [address] [place] [address] Nurse Practitioner Gastroenterology 03/07/21 Alize Acosta APRN, TOLL GATE TENDER [address] [place] [address] Virtual Advanced Care (VAC) HARDWARE INSTALLER Advanced Practice Nurse 08/30/21 Dayo Chaney MD [address] [place] [address] Chief Order Dispatcher Cardiovascular Disease - Cardiology 09/20/21 02/12/24 Juanita Mercado RN [place] Registered Nurse Cardiology 12/24/21 02/12/24 David Salmon MD #[address] [address] Consulting Physician Endocrinology 01/15/22 Maurilio Farley MD #[address] [address] Consulting Physician Colon and Rectal Surgery 09/20/22 Physician, Candida Davis MD [address] [place] [address] Family Medicine 01/25/22 03/18/23 Dom Quiñonez MD #[address] [place] [address] Consulting Physician Pulmonary Disease 11/19/21 Rachelle Nava APRN, IMPORT/EXPORT FREIGHT FORWARDER [address] [place] [address] Nurse Practitioner Advanced Practice Nurse 07/19/22 Irais Naylor APRN, TOLL GATE TENDER #[address] [address] Nurse Practitioner Cardiology 06/27/23 07/29/24 Sharri Gaspar MD [address] [address] Consulting Physician Cardiology 04/26/24 Amber Aldrich LEGAL ADMINISTRATOR, TOLL GATE TENDER [address] [place] [address] Nurse Practitioner Cardiology 07/30/24 documented as of this encounter
--- OUTSIDE RECORDS SUMMARY | 2024-09-20 11:59 | XMS_ITS | Encounter Summary ---
Author Organization [facility] Address [address] [place] [address] Phone Care Team Providers Care Food Production Manager Name Role Phone Jackeline Dimas COUNTER CLERK FARM EQUIPMENT PARTS, CHARTER REPRESENTATIVE Primary Care Provider Phil Jacobo MD Unavailable [phone] Rajiv Mccormack NP Unavailable Unavailable Alize Acosta COUNTER CLERK FARM EQUIPMENT PARTS, CHARTER REPRESENTATIVE Unavailable +[phone] Dayo Chaney MD Unavailable Juanita Hauser RN Unavailable UnavailDavid Alexandre MD Unavailable Emilia Tang MD Primary Care Provider [phone] Maurilio Farley MD Unavailable Physician, Candida Davis MD Unavailable Rebeka Trinidad MD Primary Care Provider + [phone] Dom Quiñonez MD Unavailable Rachelle Nava COUNTER CLERK FARM EQUIPMENT PARTS, TIRE SHOP MANAGER Unavailable + [phone] Irais Naylor COUNTER CLERK FARM EQUIPMENT PARTS, CHARTER REPRESENTATIVE Unavailable + [phone] Lorri Leo COUNTER CLERK FARM EQUIPMENT PARTS, CHARTER REPRESENTATIVE Primary Care Provider [phone] Rebeka Trinidad MD Primary Care Provider + [phone] Ahmet Lorri Annetta COUNTER CLERK FARM EQUIPMENT PARTS, [facility] Primary Care Provider + [phone] Sharri Gaspar MD Unavailable Tani Biggs [facility] Primary Care Provider [phone] Amber Aldrich COUNTER CLERK FARM EQUIPMENT PARTS, [facility] Unavailable Reason for Visit * Reason Comments Medication Refill Encounter Details Date Type Department Care Team (Late Contact Info) Description 01/14/2022 [facility] [place] [address] [place] [address] Jackeline Dimas COUNTER CLERK FARM EQUIPMENT PARTS, [facility] [address] [place] [address] Medication Refill Social History Tobacco Use Types Packs/Day Years Used Date Smoking Tobacco: Former Cigarettes 0.5 15 0 04/12/2006 - 04/12/2021 Smokeless Tobacco: Never Alcohol Use Standard Drinks/Week Comments Not Currently 0 (1 standard drink = 0.6 oz pur e alcohol) last drank 2 years ago PHQ-2 Answer Date Recorded Total Score - Questions 1-9 24 1110/2021 Sexually Active Control Partners Comments Not Currently Comments No Sex and Gender Information Value Date Recorded Sex Assigned at Female 10/21/2022 4:24 PM CDT Legal Sex Female 10:38 PM CDT Gender Identity Female 10/21/2022 4:24 PM CDT Sexual Orientation Not on file 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 Unable to assess 01/16/2022 3:15 PM MACHINIST SUPERVISOR documented as of this encounter Plan of Treatment Upcoming Encounters Date Type Department Care Team (Late Contact Info) Description 09/21/2024 3:20 PM CDT Office Visit [facility] Oncology Services [address] [place] [phone] Melony Asif, [facility] [address] [place] [address] Discharge Disposition: Discharged to home or Selfcare 10/18/2024 1:00 PM CDT Office Visit [facility] - Pulmonology & Sleep Medicine - [place] [address] [place] [address] Dom Quiñonez MD [address] [place] [address] 10/26/2024 1:00 PM CDT Office Visit [facility] - Cardiology - [place] [address] [place] [address] Amber Aldrich, COUNTER CLERK FARM EQUIPMENT PARTS, CHARTER REPRESENTATIVE [address] [place] [address] 11/09/2024 2:00 PM CDT Telemedicine [facility] [address] [place] [address] Alize Acosta, COUNTER CLERK FARM EQUIPMENT PARTS, CHARTER REPRESENTATIVE [address] [place] [address] 11/18/2024 3:45 PM CDT Office Visit [facility] - Endocrinology - [place] [address] [place] [address] David Salmon MD #[address] [address] 03/04/2025 3:10 PM MACHINIST SUPERVISOR [facility] [place] [address] [place] [address] [facility] 03/04/2025 3:30 PM MACHINIST SUPERVISOR Office Visit [facility] - Primary Care - [place] [address] [place] [address] Tani Biggs, PAC [address] [place] [address] documented as of this encounter Goals Goal Patient Goal Type Associated Problems Recent Progress Patient-Stated? Author Chronic Disease Management Chronic Disease Management Improving( 2:39 PM CDT) No Renita Quezada, RN Note: Goal: To manage my high [...] as recommended. Depression Depression Improving( 2:27 PM MACHINIST SUPERVISOR) No Breanne Saldana LCSW Note: Goal/Objective: Decrease symptoms of depression associated with grief and loss as well as the increase of anxiety and panic with follow up with out patient counseling. Anticipated Time Frame for Goal Completion: 2 week Constipation General Improving( 2:41 PM CDT) Yes Xioym Linda, RN Note: She has taken Senna, [...] Sodium Intake On track(2023 2:42 PM CDT) Xiomy Gunderson, RN Note: Goal: I will reduce my [...] 19 04/18/2024 04/18/2024 04/18/2024 10:4 7 PM MACHINIST SUPERVISOR Respiratory Rule-Out 05/06/2024 05/06/2024 025 9:20 AM MACHINIST SUPERVISOR COVID - 05/06/2024 05/06/2024 05/06/2024 9:19 AM MACHINIST SUPERVISOR Assessment Noted Time PHQ-9 Depression Total Score: 0 09/01/19 11:58 AM CDT documented as of this encounter Care Teams Food Production Manager Relationship Specialty Start Date End Date Jackeline Dimas APRN, CHARTER REPRESENTATIVE [address] [place] [address] PCP - General Advanced Practice Nurse 07/31/17 Emilia Tang MD [address] [place] [address] PCP - General Family Medicine 06/07/22 03/25/23 Rebeka Trinidad MD [address] [place] [address] PCP - General Family Medicine 03/26/23 03/29/24 Lorri Leo APRN, CHARTER REPRESENTATIVE [address] [place] [address] PCP - General Certified Nurse Practitioner 03/30/24 04/20/24 Rebeka Trinidad MD [address] [place], [place] [id number] PCP - General Family Medicine 04/21/24 04/21/24 Lorri Leo APRN, CHARTER REPRESENTATIVE [address] [place] [address] PCP - General Certified Nurse Practitioner 04/22/24 05/30/24 Tani Biggs, ESTRELLITA [address] [place] [address] PCP - General Physician Custom Seamstress 05/31/24 Phil Jacobo MD [address] [place] [address] Consulting Physician Neurology 03/07/21 Rajiv Mccormack, KELI [address] [place] [address] Nurse Practitioner Gastroenterology 03/07/21 Alize Acosta, RUSSELL, CHARTER REPRESENTATIVE [address] [place] [address] Virtual Advanced Care (VAC) CLIENT EXECUTIVE Advanced Practice Nurse 08/30/21 Dayo Chaney MD [address] [place] [address] Title Agent Cardiovascular Disease - Cardiology 09/20/21 02/12/24 Juanita Mercado RN [place] Registered Nurse Cardiology 12/24/21 02/12/24 David Salmon MD #[address] [phone] Consulting Physician Endocrinology 01/15/22 Maurilio Farley MD #[address] [address] Consulting Physician Colon and Rectal Surgery 09/20/22 Physician, Candida Davis MD [address] [place] [address] Family Medicine 01/25/22 03/18/23 Dom Quiñonez MD #[address] [place] [address] Consulting Physician Pulmonary Disease 11/19/21 Rachelle Nava APRN, TIRE SHOP MANAGER #[address] [place] [address] Nurse Practitioner Advanced Practice Nurse 07/19/22 Irais Naylor APRN, CHARTER REPRESENTATIVE #[address] [address] Nurse Practitioner Cardiology 06/27/23 07/29/24 Sharri Gaspar MD 2 [facility] [place] [address] [address] Consulting Physician Cardiology 04/26/24 Amber Aldrich APRN, CHARTER REPRESENTATIVE [address] [place] [address] Nurse Practitioner Cardiology 07/30/24 documented as of this encounter
--- OUTSIDE RECORDS SUMMARY | 2024-09-20 11:59 | XMS_ITS | Encounter Summary ---
Author Organization [facility] Address [address] [place] [address] Phone Care Team Providers Care Senior Director Marketing Name Role Phone Phil Jacobo MD Unavailable [phone] Rajiv Mccormack NP Unavailable Unavailable Alize Acosta APRN, IUSS ANALYST Unavailable [phone] Dayo Chaney MD Unavailable Juanita Hauser RN Unavailable UnavailDavid Alexandre MD Unavailable Maurilio Farley MD Unavailable Rebeka Trinidad MD Primary Care Provider + [phone] Dom Quiñonez MD Unavailable Rachelle Nava FINAL FINISHER FORGING DIES, HEATING AND COOLING SYSTEMS ENGINEER Unavailable + [phone] Irais Naylor FINAL FINISHER FORGING DIES, IUSS ANALYST Unavailable + [phone] Lorri Leo FINAL FINISHER FORGING DIES, IUSS ANALYST Primary Care Provider + [phone] Rebeka Trinidad MD Primary Care Provider + [phone] Lorri Leo FINAL FINISHER FORGING DIES, IUSS ANALYST Primary Care Provider + [phone] Sharri Gaspar MD Unavailable Tani Biggs PAC Primary Care Provider [phone] Amber Aldrich APRN, IUSS ANALYST Unavailable Reason for Visit * Reason Comments Medication Refill Encounter Details Date Type Department Care Team (Late st Contact Info) Description 04/18/[address] - Neurology [facility] [address] [place] [address] Rachelle Nava, RUSSELL, HEATING AND COOLING SYSTEMS ENGINEER [address] [place] [address] Medication Refill Social History Tobacco Use Types Packs/Day Years Used Date Smoking Tobacco: Former Cigarettes 1 37.1 1 985 - 04/12/2021 Smokeless Tobacco: Never Alcohol Use Standard Drinks/Week Comments Not Currently 0 (1 standard drink = 0.6 oz pur e alcohol) last drank 2020 [facility] Utilities Answer Date Recorded In the past 12 months has [employer] electric, gas, oil, or water company threatened [...] Never 03/24/2023 How often do you attend [facility] or jehovah's witness services? 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 Requested Prescriptions Pending Prescriptions Disp Refills Qulipta 60 MG Tablet [Pharmacy Med Name: QULIPTA 60MG TABLETS] 30 Tablet 3 Sig: TAKE 1 TABLET BY MOUTH DAILY Not Delegated - Off Protocol Failed - 04/18/2023 3:32 AM Failed - This refill cannot be delegated Passed - Visit with relevant provider in past 12 months or upcoming 90 days Recent Visits Date Type Provider Dept 03/26/23 Office Visit Rebeka Trinidad MD [facility] 03/19/23 Office Visit Rachelle Nava APRN, CNS [facility] Neurology [facility] 02/06/23 Office Visit Emilia Tang MD [facility] 11/06/22 Office Visit Emilia Tang MD [facility] 10/10/22 Office Visit Emilia Tang MD [facility] 09/16/22 Office Visit Rachelle Nava APRN, CNS [facility] Neurology [facility] 09/06/22 Office Visit Emilia Tang MD [facility] 07/19/22 Office Visit Rachelle Nava APRN, CNS [facility] 06/07/22 Office Visit Emilia Tang MD [facility] Showing recent visits within past 365 days and meeting all other requirements Future Appointments Date Type Provider Dept 06/19/23 Appointment Phil Jacobo MD [facility] Neurology [facility] Showing future appointments within next 90 days and meeting all other requirements ONHOLE MAKER documented in this encounter Plan of Treatment Upcoming Encounters Date Type Department Care Team (Late st Contact Info) Description 09/21/2024 3:20 PM CDT Office Visit [facility] Oncology Services [address] [place] [phone] Melony Asif Stacey, PAC [address] [place] [address] Discharge Disposition: Discharged to home or Selfcare 10/18/2024 1:00 PM CDT Office Visit [facility] - Pulmonology & Sleep Medicine - [place] [address] [place] [address] Dom Quiñonez MD [address] [place] [address] 10/26/2024 1:00 PM CDT Office Visit [facility] - Cardiology - [place] [address] [place] [address] Amber Aldrich APRN, IUSS ANALYST [address] [place] [address] 11/09/2024 2:00 PM CDT Telemedicine [facility] [address] [place] [address] Alize Acosta, FINAL FINISHER FORGING DIES, IUSS ANALYST [address] [place] [address] 11/18/2024 3:45 PM CDT [facility] - Endocrinology - [place] [address] [place] [address] David Salmon MD [address] [address] 03/04/2025 3:10 PM BUTTONHOLE MAKER Lab [facility] [place] [address] [place] [address] Lab, [facility] 03/04/2025 3:30 PM BUTTONHOLE MAKER Office Visit [facility] [place] [address] [place] [address] Tani Biggs, [facility] [address] [place] [address] documented as of this encounter Goals Goal Patient Goal Type Associated Problems Recent Progress Patient-Stated? Author ACTIVITY Activity No change(08/08 2:42 PM CDT) Yes Maritza Vanegas, RN Note: Bonny will walk five days a week. Goal Reviewed with: Bonny Readiness to change: Department associated with goal: [facility] ADVANCED CARE Steps to achieve goal: Walking [...] making a change Department associated with goal: [facility] Steps to [...] On track(12/21 2:27 PM CDT) Xiomy Gunderson, SEBASTIAN Note: Goal: To effectively manage hypertension at [...] diet Depression Depression Improving(0 03/15/2022 2:27 PM BUTTONHOLE MAKER) No Breanne Saldana LCSW Note: Goal/Objective: Decrease [...] 19 04/18/2024 04/18/2024 04/18/2024 10:4 7 PM BUTTONHOLE MAKER Respiratory Rule-Out 05/06/2024 05/06/2024 025 9:20 AM BUTTONHOLE MAKER COVID - 19 05/06/2024 05/06/2024 05/06/2024 9:19 AM BUTTONHOLE MAKER Assessment Noted Time PHQ-9 Depression Total Score: 18 023 9:24 AM CDT documented as of this encounter Care Teams Senior Director Marketing Relationship Specialty Start Date End Date Rebeka Trinidad MD [address] [place] [address] PCP - General Family Medicine 03/26/23 03/29/24 Lorri Leo APRN, IUSS ANALYST [address] [place] [address] PCP - General Certified Nurse Practitioner 03/30/24 04/20/24 Rebeka Trinidad MD [address] [place] [address] PCP - General Family Medicine 04/21/24 04/21/24 Lorri Leo APRN, IUSS ANALYST [address] [place] [address] PCP - General Certified Nurse Practitioner 04/22/24 05/30/24 Tani Biggs PAC [address] [place] [address] PCP - General Physician Lacrosse Player 05/31/24 Phil Jacobo MD [address] [place] [address] Consulting Physician Neurology 03/07/21 Rajiv Mccormack, KELI [address] [place] [address] Nurse Practitioner Gastroenterology 03/07/21 Alize Acosta APRN, IUSS ANALYST [facility] [place] [address] Virtual Advanced Care (VAC) AUTOMOTIVE GENERAL SALES MANAGER Advanced Practice Nurse 08/30/21 Dayo Chaney MD [address] [place] [address] Melter Helper Cardiovascular Disease - Cardiology 09/20/21 02/12/24 Juanita Mercado, RN [place] Registered Nurse Cardiology 12/24/21 02/12/24 David Salmon MD #[address] [address] Consulting Physician Endocrinology 01/15/22 Maurilio Farley MD #[address] [address] Consulting Physician Colon and Rectal Surgery 09/20/22 Dom Quiñonez MD [address] [place] [address] Consulting Physician Pulmonary Disease 11/19/21 Rachelle Nava APRN, HEATING AND COOLING SYSTEMS ENGINEER [address] [place] [address] Nurse Practitioner Advanced Practice Nurse 07/19/22 Irais Naylor APRN, IUSS ANALYST #[address] [address] Nurse Practitioner Cardiology 06/27/23 07/29/24 Sharri Gaspar MD [address] [address] Consulting Physician Cardiology 04/26/24 Abmer Aldrich APRN, IUSS ANALYST [address] [place] [address] Nurse Practitioner Cardiology 07/30/24 documented as of this encounter
--- OUTSIDE RECORDS SUMMARY | 2024-09-20 11:59 | XMS_ITS | Encounter Summary ---
Author Organization [facility] Address [address] [place] [address] Phone Care Team Providers Care Variety Saw Operator Name Role Phone Phil Jacobo MD Unavailable [phone] Rajiv Mccormack NP Unavailable Unavailable Alize Acosta APRN, ENROLLED NURSE Unavailable Dayo Chaney MD Unavailable Juanita Hauser RN Unavailable UnavailDavid Alexandre MD Unavailable Maurilio Farley MD Unavailable Rebeka Trinidad MD Primary Care Provider + [phone] Dom Quiñonez MD Unavailable Rachelle Nava AUTOMOBILE UPHOLSTERER APPRENTICE, NEEDLE VALVE OPERATOR Unavailable + [phone] Irais Naylor AUTOMOBILE UPHOLSTERER APPRENTICE, ENROLLED NURSE Unavailable + [phone] Lorri Leo AUTOMOBILE UPHOLSTERER APPRENTICE, ENROLLED NURSE Primary Care Provider + [phone] Rebeka Trinidad MD Primary Care Provider + [phone] Lorri Leo AUTOMOBILE UPHOLSTERER APPRENTICE, ENROLLED NURSE Primary Care Provider + [phone] Sharri Gaspar MD Unavailable Tani Biggs [facility] Primary Care Provider + [phone] Amber Aldrich APRN, CNP Unavailable Reason for Visit * Reason Comments Medication Refill Encounter Details Date Type Department Care Team (Late st Contact Info) Description 07/18/2023 Refill [facility] - Primary Care - [place] [address] [place] [address] Emilia Tang MD [address] [place] [address] Medication Refill Social History Tobacco Use Types Packs/Day Years Used Date Smoking Tobacco: Former Cigarettes 1 37.1 1 985 - 04/12/2021 Smokeless Tobacco: Never Alcohol Use Standard Drinks/Week Comments Not Currently 0 (1 standard drink = 0.6 oz pur e alcohol) last drank 2020 [facility] Utilities Answer Date Recorded In the past 12 months has [employer] electric, gas, oil, or water company threatened [...] Never 03/24/2023 How often do you attend [facility] or confucianism services? More than 4 times per year 03/24/2023 Do you belong to any clubs o r organizations such as christian groups, unions, fraternal or athletic groups, or [...] Total Score - Questions 1-9 18 08/ [facility] of Occupat [facility] - Occupational Stress Questionnaire Answer Date [...] place to sleep or slept in a jail (including now)? 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 Not on file Not on file documented as of this encounter Plan of Treatment Upcoming Encounters Date Type Department Care Team (Late st Contact Info) Description 09/21/2024 3:20 PM CDT [facility] [address] [place] [address] Melony Asif, PAC [address] [place] [address] Discharge Disposition: Discharged to home or Selfcare 10/18/2024 1:00 PM CDT [facility] - Pul[facility]ology & [facility] #[address] [place] [address] Dom Quiñonez MD [address] [place] [address] 10/26/2024 1:00 PM CDT Office Visit [facility] - Cardiology - [place] [address] [place] [address] Amber Aldrich, AUTOMOBILE UPHOLSTERER APPRENTICE, ENROLLED NURSE [address] [place] [address] 11/09/2024 2:00 PM CDT Telemedicine [facility] [address] [place] [address] Alize Acosta, AUTOMOBILE UPHOLSTERER APPRENTICE, ENROLLED NURSE [address] [place] [address] 11/18/2024 3:45 PM CDT Office Visit [facility] Endocrinology - [place] [address] [place] [address] David Salmon MD #[address] [address] 03/04/2025 3:10 PM AUTOMOBILE DESIGNER Lab [facility] [place] [address] [place] [address] [facility], [facility] 03/04/2025 3:30 PM AUTOMOBILE DESIGNER Office Visit [facility] [place] [address] [place] [address] Tani Biggs PAC [address] [place] [address] documented as of this encounter Goals Goal Patient Goal Type Associated Problems Recent Progress Patient-Stated? Author ACTIVITY Activity No change(08/08 2:42 PM CDT) Yes Maritza Vanegas, RN Note: Bonny will walk five days a week. Goal Reviewed with: Bonny Readiness to change: Department associated with goal[facility] Steps to achieve [...] making a change Department associated with goal: [facility] Steps to achieve goal: [...] Management Worsening(0 08/30/2024 1:58 PM CDT) No Xioym Linda, RN Note: Goal: To manage my [...] diet Depression Depression Improving(0 03/15/2022 2:27 PM AUTOMOBILE DESIGNER) No Breanne Saldana LCSW Note: Goal/Objective: Decrease [...] Intake On track(08/24 2:42 PM CDT) Xiomy Gunderson, RN Note: [...] 19 04/18/2024 04/18/2024 04/18/2024 10:4 7 PM AUTOMOBILE DESIGNER Respiratory Rule-Out 05/06/2024 05/06/2024 025 9:20 AM AUTOMOBILE DESIGNER COVID - 19 05/06/2024 05/06/2024 05/06/2024 9:19 AM AUTOMOBILE DESIGNER Assessment Noted Time PHQ-9 Depression Total Score: 18 11/06/ 023 9:24 AM CDT documented as of this encounter Care Teams Variety Saw Operator Relationship Specialty Start Date End Date Rebeka Trinidad MD [address] [place] [address] PCP - General Family Medicine 03/26/23 03/29/24 Lorri Leo APRN, ENROLLED NURSE [address] [place] [address] PCP - General Certified Nurse Practitioner 03/30/24 04/20/24 Rebeka Trinidad MD [address] [place] [address] PCP - General Family Medicine 04/21/24 04/21/24 Lorri Leo APRN, ENROLLED NURSE [address] [place], [place] [id number] PCP - General Certified Nurse Practitioner 04/22/24 05/30/24 Tani Biggs, PAC [address] [place] [address] PCP - General Physician User Support Analyst 05/31/24 Phil Jacobo MD [address] [place] [address] Consulting Physician Neurology 03/07/21 Rajiv Mccormack, KELI [address] [place] [address] Nurse Practitioner Gastroenterology 03/07/21 Alize Acosta APRN, ENROLLED NURSE [address] [place] [address] Virtual Advanced Care (VAC) CUT AND COVER LINE WORKER Advanced Practice Nurse 08/30/21 Dayo Chaney MD [address] [place] [address] Maternity Nurse Cardiovascular Disease - Cardiology 09/20/21 02/12/24 Juanita Mercado, SEBAST[place] Registered Nurse Cardiology 12/24/21 02/12/24 David Salmon MD #[address] [phone] Consulting Physician Endocrinology 01/15/22 Maurilio Farley MD #[address] [address] Consulting Physician Colon and Rectal Surgery 09/20/22 Dom Quiñonez MD #[address] [place] [address] Consulting Physician Pulmonary Disease 11/19/21 Rachelle Nava, AUTOMOBILE UPHOLSTERER APPRENTICE, NEEDLE VALVE OPERATOR [address] [place] [address] Nurse Practitioner Advanced Practice Nurse 07/19/22 Irais Naylor, AUTOMOBILE UPHOLSTERER APPRENTICE, ENROLLED NURSE #2 [facility] [address] [place] [address] Nurse Practitioner Cardiology 06/27/23 07/29/24 Sharri Gaspar MD 2 [facility] [address] [place] [address] Consulting Physician Cardiology 04/26/24 Amber Aldrich APRN, ENROLLED NURSE [address] [place] [address] Nurse Practitioner Cardiology 07/30/24 documented as of this encounter
--- OUTSIDE RECORDS SUMMARY | 2024-09-20 11:59 | XMS_ITS | Encounter Summary ---
Author Organization [facility] Address [address] [place] [address] Phone Care Team Providers Care Public Address Servicer Name Role Phone Phil Jacobo MD Unavailable [phone] Rajiv Mccormack NP Unavailable Unavailable Alize Acosta PANTOGRAPH OPERATOR, CONTRACT AGENT Unavailable +[phone] Dayo Chaney MD Unavailable Juanita Hauser RN Unavailable Unavaila David Martinez MD Unavailable Emilia Tang MD Primary Care Provider +[phone] Maurilio Farley MD Unavailable PhysicianCandida MD Unavailable Rebeka Trinidad MD Primary Care Provider + [phone] Dom Quiñonez MD Unavailable Rachelle Nava PANTOGRAPH OPERATOR, INSPECTOR PENETRANT Unavailable + [phone] Irais Naylor PANTOGRAPH OPERATOR, CONTRACT AGENT Unavailable + [phone] Lorri Leo PANTOGRAPH OPERATOR, CONTRACT AGENT Primary Care Provider + [phone] Rebeka Trinidad MD Primary Care Provider + [phone] Lorri Leo PANTOGRAPH OPERATOR, CONTRACT AGENT Primary Care Provider + [phone] Sharri Gaspar MD Unavailable Tani Biggs Primary Care Provider + [phone] Amber Aldrich PANTOGRAPH OPERATOR, CONTRACT AGENT Unavailable Reason for Visit * Reason Comments Medication Refill Encounter Details Date Type Department Care Team (Late st Contact Info) Description 06/18/2022 Refill [facility] [address] [place] [address] Jackeline Dimas, PANTOGRAPH OPERATOR, CONTRACT AGENT [address] [place] [address] Medication Refill Social History Tobacco Use Types [...] Industry Job Start Date Job End Date [employer] Not on file Not on file Not on 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 No / Unsure 06/19/2022 2:31 PM CDT documented as of this encounter Miscellaneous Notes * Telephone Encounter - Adina Barrientos RN - 06/19/2022 8:10 AM CDT The original prescription was discontinued on 06/07/2022 by Emilia Tang MD documented in this encounter Plan of Treatment Upcoming Encounters Date Type Department Care Team (Late st Contact Info) Description 09/21/2024 3:20 PM CDT [facility] [address] [place] [address] Melony Asif Stacey, PAC [address] [place], [place] [id number] Discharge Disposition: Discharged to home or Selfcare 10/18/2024 1:00 PM CDT [facility] - Pulmonology & Sleep Medicine - [place] [address] [place] [address] Dom Quiñonez MD [address] [place] [address] 10/26/2024 1:00 PM CDT Office Visit [facility] - Cardiology - [place] [address] [place] [address] Amber Aldrich APRN, CONTRACT AGENT [address] [place] [address] 11/09/2024 2:00 PM CDT Telemedicine [facility] [address] [place] [address] Alize Acosta APRN, CONTRACT AGENT [address] [place] [phone] 11/18/2024 3:45 PM CDT Office Visit [facility] - Endocrinology - [place] [address] [place] [address] David Salmon MD [address] [place] [address] 03/04/2025 3:10 PM CLOTH SHRINKING TESTER [facility] [place] [facility] [address] [address] [facility], [facility] 03/04/2025 3:30 PM CLOTH SHRINKING TESTER Office Visit [facility] [place] [address] [place] [address] Tani Biggs PAC [address] [place] [address] documented as of this encounter [...] as recommended. Depression Depression Improving( 2:27 PM CLOTH SHRINKING TESTER) Breanne Barragan, SANDEEP Note: Goal/Objective: Decrease symptoms of depression associated [...] as of this encounter Visit Diagnoses Diagnosis Depression with anxiety Dysthymic disorder documented in this encounter Additional Health Concerns Infection Onset Date Last Indicated Resolved Time COVID - 19 04/18/2024 04/18/2024 04/18/2024 10:4 7 PM CLOTH SHRINKING TESTER Respiratory Rule-Out 05/06/2024 05/06/2024 025 9:20 AM CLOTH SHRINKING TESTER COVID - 19 05/06/2024 05/06/2024 05/06/2024 9:19 AM CLOTH SHRINKING TESTER Assessment Noted Time PHQ-9 Depression Total Score: 24 022 3:31 PM CLOTH SHRINKING TESTER documented as of this encounter Care Teams Public Address Servicer Relationship Specialty Start Date End Date Emilia Tang MD [address] [place] [address] PCP - General Family Medicine 06/07/22 03/25/23 Rebeka Trinidad MD [address] [place] [address] PCP - General Family Medicine 03/26/23 03/29/24 Lorri Leo APRN, CONTRACT AGENT [address] [place] [address] PCP - General Certified Nurse Practitioner 03/30/24 04/20/24 Rebeka Trinidad MD [address] [place], [place] [id number] PCP - General Family Medicine 04/21/24 04/21/24 Lorri Leo, PANTOGRAPH OPERATOR, CONTRACT AGENT [address] [place], [place] [id number] PCP - General Certified Nurse Practitioner 04/22/24 05/30/24 Tani Biggs [facility] [address] [place] [address] PCP - General Physician Military Police Officer 05/31/24 Phil Jacobo MD [address] [place] [address] Consulting Physician Neurology 03/07/21 Rajiv Mccormack, TOMOGRAPHY TECHNOLOGIST [address] [place] [address] Nurse Practitioner Gastroenterology 03/07/21 Alize Acosta, PANTOGRAPH OPERATOR, CONTRACT AGENT [address] [place] [address] Virtual [facility] (V[facility]) MARINE WELDER Advanced Practice Nurse 08/30/21 Dyao Chaney MD [address] [place] [address] Channel Cementer Cardiovascular Disease - Cardiology 09/20/21 02/12/24 Juanita Mercado RN [place] Registered Nurse Cardiology 12/24/21 02/12/24 David Salmon MD [address] [phone] Consulting Physician Endocrinology 01/15/22 Maurilio Farley MD #[address] [address] Consulting Physician Colon and Rectal Surgery 09/20/22 Physician, Candida Davis MD [address] [place] [address] Family Medicine 01/25/22 03/18/23 Dmo Quiñonez MD [address] [place] [address] Consulting Physician Pulmonary Disease 11/19/21 Rachelle Nava, PANTOGRAPH OPERATOR, INSPECTOR PENETRANT [address] [place] [address] Nurse Practitioner Advanced Practice Nurse 07/19/22 Irais Naylor, PANTOGRAPH OPERATOR, CONTRACT AGENT [address] [address] Nurse Practitioner Cardiology 06/27/23 07/29/24 Sharri Gaspar MD [address] [address] Consulting Physician Cardiology 04/26/24 Amber Aldrich APRN, CONTRACT AGENT [address] [place] [address] Nurse Practitioner Cardiology 07/30/24 documented as of this encounter
--- OUTSIDE RECORDS SUMMARY | 2024-09-20 11:59 | XMS_ITS | Encounter Summary ---
Author Organization [facility] Address [address] [place] [address] Phone Care Team Providers Care Preschool Lead Teacher Name Role Phone Phil Jacobo MD Unavailable [phone] Rajiv Mccormack NP Unavailable Unavailable Alize Acosta APRN, RN NEW GRAD Unavailable [phone] Dayo Chaney MD Unavailable Juanita Hauser RN Unavailable UnavailDavid Alexandre MD Unavailable Maurilio Farley MD Unavailable Rebeka Trinidad MD Primary Care Provider + [phone] Dom Quiñonez MD Unavailable Rachelle Nava FOOD WRITER, OB/GYN DOCTOR Unavailable + [phone] Irais Naylor FOOD WRITER, RN NEW GRAD Unavailable + [phone] Lorri Leo FOOD WRITER, RN NEW GRAD Primary Care Provider + [phone] Rebeka Trinidad MD Primary Care Provider + [phone] Lorri Leo FOOD WRITER, RN NEW GRAD Primary Care Provider + [phone] Sharri Gaspar MD Unavailable Tani Biggs PAC Primary Care Provider [phone] Amber Aldrich APRN, RN NEW GRAD Unavailable Reason for Visit * Reason Comments Medication Refill Encounter Details Date Type Department Care Team (Late st Contact Info) Description 07/07/2023 Refill [facility] - [facility]rology [facility] [address] [place] [address] Rachelle Nava, RUSSELL, OB/GYN DOCTOR [address] [place] [address] Medication Refill Social History Tobacco Use Types Packs/Day Years Used Date Smoking Tobacco: Former Cigarettes 1 37.1 1 985 - 04/12/2021 Smokeless Tobacco: Never Alcohol Use Standard Drinks/Week Comments Not Currently 0 (1 standard drink = 0.6 oz pur e alcohol) last drank 2020 [facility] Utilities Answer Date Recorded In the past 12 months has [employer] electric, gas, oil, or water company threatened [...] Never 03/24/2023 How often do you attend [facility] or [facility]? More than 4 times per year 03/24/2023 Do you belong to any clubs o r organizations such as yarsani groups, unions, fraternal or athletic groups, or [...] Total Score - Questions 1-9 18 08/ 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 Requested Prescriptions Pending Prescriptions Disp Refills Qulipta 60 MG Tablet [Pharmacy Med Name: QULIPTA 60MG TABLETS] 30 Tablet 3 Sig: TAKE 1 TABLET BY MOUTH DAILY Not Delegated - Off Protocol Failed - 07/07/2023 12:21 PM Failed - This refill cannot be delegated Passed - Visit with relevant provider in past 12 months or upcoming 90 days Recent Visits Date Type Provider Dept 06/19/23 Office Visit Phil Jacobo MD [facility] Neurology [facility] 06/04/23 Office Visit Rebeka Trinidad MD [facility] 05/09/23 Office Visit Rebeka Trinidad MD [facility] 03/26/23 Office Visit Rebeka Trinidad MD [facility] 03/19/23 Office Visit Rachelle Nava APRN, OB/GYN DOCTOR [facility] Neurology [facility] 02/06/23 Office Visit Emilia Tang MD [facility] 11/06/22 Office Visit Emilia Tang MD [facility] 10/10/22 Office Visit Emilia Tang MD [facility] 09/16/22 Office Visit Rachelle Nava APRN, OB/GYN DOCTOR [facility] Neurology [facility] 09/06/22 Office Visit [facility] Showing recent visits within past 365 days and meeting all other requirements Future Appointments No visits were found meeting these conditions. Showing future appointments within next 90 days and meeting all other requirements documented in this encounter Plan of Treatment Upcoming Encounters Date Type Department Care Team (Late st Contact Info) Description 09/21/2024 3:20 PM CDT [facility] [address] [place] [address] Melony Asif Stacey, PAC [address] [place], [place] [phone] Discharge Disposition: Discharged to home or Selfcare 10/18/2024 1:00 PM CDT Office Visit [facility] - Pulmonology & Sleep Medicine - [place] [address] [place] [address] Dom Quiñonez MD [address] [place] [address] 10/26/2024 1:00 PM CDT Office Visit [facility] - Cardiology - [place] [address] [place] [address] Amber Aldrich APRN, RN NEW GRAD [address] [place] [address] 11/09/2024 2:00 PM CDT Telemedicine [facility] [address] [place] [address] Alize Acosta APRN, RN NEW GRAD [address] [place] [address] 11/18/2024 3:45 PM CDT Office Visit [facility] - Endocrinology - [place] [address] [place] [address] David Salmon MD [address] [address] 03/04/2025 3:10 PM ANIMAL CAREGIVER Lab [facility] [place] [address] [place] [address] Lab, [facility] 03/04/2025 3:30 PM ANIMAL CAREGIVER Office Visit [facility] [place] [address] [place] [address] Tani Biggs PAC [address] [place] [address] documented as of this encounter Goals Goal Patient Goal Type Associated Problems Recent Progress Patient-Stated? Author ACTIVITY Activity No change(08/08 2:42 PM CDT) Yes Maritza Vanegas, RN Note: Bonny will walk five days a week. Goal Reviewed with: Bonny Readiness to change: Department associated with goal: [facility] AD[facility] Steps to achieve goal: Walking 5 days a week I want to be able to be around people and feel less depressed. Behavioral Health Worsening(0 09/22/2023 3:12 PM CDT) Yes Hilda Tinajero COMPUTER SYSTEMS AUDITOR Note: Goal/Objective: Decrease symptoms of depression and anxiety. Anticipated Time Frame for Goal Completion: 3 months Goal Reviewed with: patient Readiness to change: Thinking about making a change Department associated with goal: [facility] Steps to achieve goal: [...] diet Depression Depression Improving(0 03/15/2022 2:27 PM ANIMAL CAREGIVER) No Breanne Saldana LCSW Note: Goal/Objective: Decrease [...] 19 04/18/2024 04/18/2024 04/18/2024 10:4 7 PM ANIMAL CAREGIVER Respiratory Rule-Out 05/06/2024 05/06/2024 025 9:20 AM ANIMAL CAREGIVER COVID - 19 05/06/2024 05/06/2024 05/06/2024 9:19 AM ANIMAL CAREGIVER Assessment Noted Time PHQ-9 Depression Total Score: 18 023 9:24 AM CDT documented as of this encounter Care Teams Preschool Lead Teacher Relationship Specialty Start Date End Date Rebeka Trinidad MD [address] [place] [address] PCP - General Family Medicine 03/26/23 03/29/24 Lorri Leo APRN, RN NEW GRAD [address] [place] [address] PCP - General Certified Nurse Practitioner 03/30/24 04/20/24 Rebeka Trinidad MD [address] [place] [address] PCP - General Family Medicine 04/21/24 04/21/24 Lorri Leo APRN, RN NEW GRAD [address] [place] [address] PCP - General Certified Nurse Practitioner 04/22/24 05/30/24 Tani Biggs PAC [address] [place] [address] PCP - General Physician Cheese Cook 05/31/24 Phil Jacobo MD [address] [place] [address] Consulting Physician Neurology 03/07/21 Rajiv Mccormack, KELI [address] [place] [address] Nurse Practitioner Gastroenterology 03/07/21 Alize Acosta APRN, RN NEW GRAD [facility] [place] [address] Virtual Advanced Care (VAC) ENGRAVER APPRENTICE DECORATIVE Advanced Practice Nurse 08/30/21 Dayo Chaney MD [address] [place] [address] Waterproof Material Folder Cardiovascular Disease - Cardiology 09/20/21 02/12/24 Juanita Mercado, [place] Registered Nurse Cardiology 12/24/21 02/12/24 David Salmon MD [address] [address] Consulting Physician Endocrinology 01/15/22 Maurilio Farley MD #[address] [address] Consulting Physician Colon and Rectal Surgery 09/20/22 Dom Quiñonez MD [address] [place] [address] Consulting Physician Pulmonary Disease 11/19/21 Rachelle Nava APRN, OB/GYN DOCTOR [address] [place] [address] Nurse Practitioner Advanced Practice Nurse 07/19/22 Irais Naylor APRN, RN NEW GRAD #[address] [address] Nurse Practitioner Cardiology 06/27/23 07/29/24 Sharri Gaspar MD [address] [address] Consulting Physician Cardiology 04/26/24 Amber Aldrich APRN, RN NEW GRAD [address] [place] [address] Nurse Practitioner Cardiology 07/30/24 documented as of this encounter
--- OUTSIDE RECORDS SUMMARY | 2024-09-20 11:59 | XMS_ITS | Encounter Summary ---
Author Organization [facility] Address [address] [place] [address] Phone Care Team Providers Care Vein Access Technician Name Role Phone Phil Jacobo MD Unavailable [phone] Rajiv Mccormack NP Unavailable Unavailable Alize Acosta APRN, PRODUCTION SUPERINTENDENT Unavailable [phone] Dayo Chaney MD Unavailable Juanita Hauser RN Unavailable UnavailDavid Alexandre MD Unavailable Maurilio Farley MD Unavailable Rebeka Trinidad MD Primary Care Provider + [phone] Dom Quiñonez MD Unavailable Rachelle Nava CERTIFIED TEACHER ASSISTANT, WELT STITCH CLEANER Unavailable + [phone] Irais Naylor CERTIFIED TEACHER ASSISTANT, PRODUCTION SUPERINTENDENT Unavailable + [phone] Lorri Leo CERTIFIED TEACHER ASSISTANT, PRODUCTION SUPERINTENDENT Primary Care Provider + [phone] Rebeka Trinidad MD Primary Care Provider + [phone] Lorri Leo CERTIFIED TEACHER ASSISTANT, PRODUCTION SUPERINTENDENT Primary Care Provider + [phone] Sharri Gaspar MD Unavailable Tani Biggs PAC Primary Care Provider + [phone] Amber Aldrich APRN, PRODUCTION SUPERINTENDENT Unavailable Reason for Visit * Reason Comments Medication Refill Encounter Details Date Type Department Care Team (Late st Contact Info) Description 06/23/2023 Refill [facility] [address] [place] [address] Belkis Mcnair APRN, PRODUCTION SUPERINTENDENT [address] [place] [address] Medication Refill Social History Tobacco Use Types Packs/Day Years Used Date Smoking Tobacco: Former Cigarettes 1 37.1 1 985 - 04/12/2021 Smokeless Tobacco: Never Alcohol Use Standard Drinks/Week Comments Not Currently 0 (1 standard drink = 0.6 oz pur e alcohol) last drank 2020 [facility] Utilities Answer Date Recorded In the past 12 months has [employer] electric, gas, oil, or water [facility] threatened to shut off services in your home? No 03/24/2023 Social Connection and Isolation Panel Answer Date Recorded In a typical week, how many times do you talk on the phone with family, friends, or neighbors? Once a week 03/24/2023 How often do you get togethe r with friends or relatives? Never 03/24/2023 How often do you attend [facility] or adventist services? More than 4 times per year 03/24/2023 Do you belong to any clubs o r organizations such as confucianism groups, unions, fraternal or athletic groups, or [...] Total Score - Questions 1-9 18 10/10 [facility] - Occupational Stress Questionnaire Answer Date [...] place to sleep or slept in a detention (including now)? 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 Requested Prescriptions Pending Prescriptions Disp Refills EPINEPHrine (EPIPEN) 0.3 MG/0.3ML Solution Auto-injector [Pharmacy Med Name: EPINEPHRINE 0.3MG INJ 2 PACK] 2 mL 0 Sig: ADMINISTER 0.3 ML IN THE MUSCLE 1 TIME NEEDED FOR ANAPHYLAXIS Not Delegated - Anaphylaxis Therapy Agents Protocol Failed - 06/23/2023 2:01 PM Failed - This refill cannot be delegated Passed - Visit with relevant provider in past 12 months or upcoming 90 days Recent Visits Date Type Provider Dept 06/16/23 Appointment [facility] 06/04/23 Appointment [facility] 06/04/23 Office Visit Rebeka Trinidad MD [facility] 05/29/23 Appointment [facility] 05/19/23 App[facility] 05/09/23 Office Visit Rebeka Trinidad MD [facility] 05/05/23 Appointment [facility] 04/28/23 App[facility] 04/21/23 App[facility] 04/14/23 App[facility]ment [facility] Showing recent visits within past 365 days and meeting all other requirements Today's Visits Date Type Provider Dept 06/23/23 Appointment [facility] Show[facility] today's visits and meeting all other requirements Future Appointments Date Type Provider Dept 06/30/23 Appointment [facility] 07/14/23 Appointment [facility] 07/21/23 Appointment [facility] 07/28/23 App[facility]ment [facility] 08/11/23 Appointment [facility] 08/20/23 Appointment [facility] 08/25/23 Appointment Alize Acosta APRN, PRODUCTION SUPERINTENDENT [facility] 09/01/23 Appointment [facility] 09/08/23 Appointment [facility] 09/15/23 Appointment [facility] Showing future appointments within next 90 days and meeting all other requirements documented in this encounter Plan of Treatment Upcoming Encounters Date Type Department Care Team (Late st Contact Info) Description 09/21/2024 3:20 PM CDT Office Visit [facility] [address] [place] [phone] Melony Asif, PAC [address] [place] [address] Discharge Disposition: Discharged to home or Selfcare 10/18/2024 1:00 PM CDT Office Visit [facility] - Pulmonology & Sleep Medicine - [place] [address] [place] [phone] Dom Quiñonez MD [address] [place] [phone] 10/26/2024 1:00 PM CDT Office Visit [facility] - Cardiology - [place] [address] [place] [phone] Amber Aldrich APRN, PRODUCTION SUPERINTENDENT [address] [place] [phone] 11/09/2024 2:00 PM CDT Telemedicine [facility] [address] [place] [address] Alize Acosta, CERTIFIED TEACHER ASSISTANT, PRODUCTION SUPERINTENDENT [address] [place] [address] 11/18/2024 3:45 PM CDT Office Visit [facility] - Endocrinology - [place] [address] [place] [address] David Salmon MD [address] [phone] 03/04/2025 3:10 PM JET BLADE POLISHER Lab [facility] [address] [place] [address] [facility] 03/04/2025 3:30 PM JET BLADE POLISHER Office Visit [facility] [place] [address] [place] [address] Tani Biggs, [facility] [address] [place] [address] documented as of this encounter Goals Goal Patient Goal Type Associated Problems Recent Progress Patient-Stated? Author ACTIVITY Activity No change(08/08 2:42 PM CDT) Yes Maritza Vanegas, RN Note: Bonny will walk five days a week. Goal Reviewed with: Bonny Readiness to change: Department associated with goal: [facility] Steps to achieve goal: Walking 5 days a week I want to be able to be around people and feel less depressed. Behavioral Health Worsening(0 09/22/2023 3:12 PM CDT) [place] [facility] Note: Goal/Objective: Decrease symptoms of depression and anxiety. Anticipated Time Frame for Goal Completion: 3 months Goal Reviewed with: patient Readiness to change: Thinking about making a change Department associated with goal: [facility] Steps [...] diet Depression Depression Improving(0 03/15/2022 2:27 PM JET BLADE POLISHER) No Breanne Saldana LCSW Note: Goal/Objective: Decrease [...] track(08/24 2:42 PM CDT) No Xiomy Linda, RN [...] 19 04/18/2024 04/18/2024 04/18/2024 10:4 7 PM JET BLADE POLISHER Respiratory Rule-Out 05/06/2024 05/06/2024 025 9:20 AM JET BLADE POLISHER COVID - 19 05/06/2024 05/06/2024 05/06/2024 9:19 AM JET BLADE POLISHER Assessment Noted Time PHQ-9 Depression Total Score: 18 023 9:24 AM CDT documented as of this encounter Care Teams Vein Access Technician Relationship Specialty Start Date End Date Rebeka Trinidad MD [address] [place] [address] PCP - General Family Medicine 03/26/23 03/29/24 Lorri Leo APRN, PRODUCTION SUPERINTENDENT [address] [place] [address] PCP - General Certified Nurse Practitioner 03/30/24 04/20/24 Rebeka Trinidad MD [address] [place] [address] PCP - General Family Medicine 04/21/24 04/21/24 Lorri Leo APRN, PRODUCTION SUPERINTENDENT [address] [place] [address] PCP - General Certified Nurse Practitioner 04/22/24 05/30/24 Tani Biggs PAC [address] [place] [address] PCP - General Physician Loan Inspector 05/31/24 Phil Jacobo MD [address] [place] [address] Consulting Physician Neurology 03/07/21 Rajiv Mccormack, ADVERTISING STRATEGIST [address] [place] [address] Nurse Practitioner Gastroenterology 03/07/21 Alize Acosta, CERTIFIED TEACHER ASSISTANT, PRODUCTION SUPERINTENDENT [address] [place] [address] [facility] ONLINE ADVERTISING MANAGER Advanced Practice Nurse 08/30/21 Dayo Chaney MD [address] [place] [address] Sponge Press Operator Cardiovascular Disease - Cardiology 09/20/21 02/12/24 Juanita Mercado RN [place] Registered Nurse Cardiology 12/24/21 02/12/24 David Salmon MD [address] [phone] Consulting Physician Endocrinology 01/15/22 Maurilio Farley MD [address] [address] Consulting Physician Colon and Rectal Surgery 09/20/22 Dom Quiñonez MD [address] [place] [address] Consulting Physician Pulmonary Disease 11/19/21 Rachelle Nava, CERTIFIED TEACHER ASSISTANT, WELT STITCH CLEANER [address] [place] [address] Nurse Practitioner Advanced Practice Nurse 07/19/22 Irais Naylor, CERTIFIED TEACHER ASSISTANT, PRODUCTION SUPERINTENDENT [address] [facility] [address] [place] [address] Nurse Practitioner Cardiology 06/27/23 07/29/24 Sharri Gaspar MD [address] [facility] [place] [facility] [place] [place] [address] Consulting Physician Cardiology 04/26/24 Amber Aldrich APRN, PRODUCTION SUPERINTENDENT [address] [facility] [place] [address] Nurse Practitioner Cardiology 07/30/24 documented as of this encounter
--- OUTSIDE RECORDS SUMMARY | 2024-09-20 11:59 | XMS_ITS | Clinical Summary ---
Author Organization [facility] Address [address] [place] [address] Phone Care Team Providers Care Computational Linguist Name Role Phone Unavailable Primary Care Provider Unavailabl e Allergies Active Allergy Reactions Criticality Noted Date Comments Bee Venom Protein (Honey Bee) Hives High 01/25/2024 Cephalexin Itching Low 01/24/2024 Hanson Rash High 01/25/2024 Ketorolac Hives High 01/25/2024 Meclizine Swelling Low 01/24/2024 Nsaids (Non-Steroidal Anti-Inflammatory Drug) Other (See Comments) 01/24/2024 Gastritis Shrimp Nausea and Vomiting Low 01/25/2024 Tylenol Max Strength Sinus Rash Low 01/25/2024 Allergy to specific medication - ok to take tylenol Medications ALBUTEROL SULFATE INHALATION Take 2 Puffs by inhalation every 4 hours as needed for Other (See Comment) (wheezing). Active losartan (COZAAR) 100 mg tablet Take 1 Tablet by mouth daily. Active lubiprostone (AMITIZA) 24 mcg Capsule Take 24 mcg by mouth 2 times daily with meals. 4 Active montelukast (SINGULAIR) 10 mg tablet Take 10 mg by mouth daily at bedtime. 3 Active olopatadine (PATANOL) 0.1 % solution 1 Drop by Ophthalmic route 2 times daily. 4 Active oxyCODONE (ROXICODONE) 5 mg tablet Take 10 mg by mouth every 8 hours as needed. 4 Active pantoprazole (PROTONIX) 20 mg Tablet, Delayed Release (E.C.) Take 1 Tablet by mouth 2 times daily. Active Insulin [place], Disposable, (BD Ultra-Fine Short Pen Needle) 31 gauge x 5/16 Needle Inject 1 Each by subcutaneous injection every 4 hours as needed. 1 Active cetirizine-pse udoephedrine sr 12 hour (ZyrTEC-D) 5-120 mg tablet Take 1 Tablet by mouth 2 times daily. Active fluticasone propion-salmet Rosi (ADVAIR HFA) 230-21 mcg/actuation HFA Aerosol Inhaler Take 2 Puffs by inhalation every 12 hours. Active tamsulosin (FLOMAX) 0.4 mg capsule Take 0.4 mg by mouth daily. Active empagliflozin (JARDIANCE) 10 mg tablet Take 10 mg by mouth daily in the morning. Active ASCORBIC ACID, VITAMIN C, ORAL Take by mouth. Activ e galcanezumab-g nlm (Emgality Syringe) 120 mg/mL Syringe Inject 120 mg by subcutaneous injection every 28 days. Active ipratropium bromide (ATROVENT) 0.02 % Solution Take 0.5 mg by inhalation every 6 hours as needed for Shortness of Breath. Active tirzepatide (Mounjaro) 15 mg/0.5 mL Pen Injector Inject by subcutaneous injection. Active tiZANidine (ZANAFLEX) 2 mg Tablet Take 2 mg by mouth nightly as needed for Spasm. Active EPINEPHrine (EPIPEN) 0.3 mg/0.3 mL Auto-Injector Inject 0.3 mg by intramuscular injection 1 time daily as needed for Anaphylaxis. Active azelastine HCl (AZELASTINE BOTH NOSTRIL) Administer in each nostril 2 times daily. Active atorvastatin (LIPITOR) 80 mg tablet Take 80 mg by mouth daily. Active furosemide (LASIX) 40 mg tablet Take 40 mg by mouth daily. Active spironolactone (ALDACTONE) 25 mg tablet Take 25 mg by mouth daily. Active allopurinoL (ZYLOPRIM) 100 mg tablet Take 100 mg by mouth daily. Active buPROPion HCL (WELLBUTRIN XL) 150 mg Extended Release 24 hour tablet Take 150 mg by mouth daily in the morning. Active carvediloL (COREG) 12.5 mg tablet Take 12.5 mg by mouth 2 times daily with meals. Active venlafaxine 150 mg Extended Release 24 hour tablet Take 150 mg by mouth daily with breakfast. Active naloxone (NARCAN) 4 mg/spray [place], Non-Aerosol Administer 4 mg in one nostril (alternate nostril with each dose) one time as needed for Respiration. Push plunger to administer. Call 911. May repeat dose, every 2-3 minutes, if the person does not wake up or breathing is not improved. Active cetirizine (ZyrTEC) 10 mg tablet Take 10 mg by mouth 2 times daily. Active insulin glargine (LANTUS) 100 unit/mL injection Inject 40 Units by subcutaneous injection nightly as needed. Active multivitamin (DAILY-ALON) tablet Take 1 Tablet by mouth daily. Active fexofenadine (RAUL) 180 mg tablet Take 180 mg by mouth daily. Active aspirin (ECOTRIN EC) 81 mg Tablet, Delayed Release (E.C.) Take 81 mg by mouth daily. Active ondansetron (ZOFRAN) 4 mg Tablet Take 4 mg by mouth every 8 hours as needed for Nausea/Emesis. Active cholecalcifero l, Vitamin D3, (VITAMIN D3) 25 mcg (1,000 unit) Capsule Take 25 mcg by mouth daily. Active polyethylene glycol (MIRALAX) 17 gram Powder in Packet Take 17 Grams by mouth 1 time daily as needed for Constipation. Active famotidine (PEPCID) 40 mg tablet Take 40 mg by mouth daily. Active docusate sodium (COLACE) 100 mg capsule Take 100 mg by mouth nightly as needed for Constipation. Active Active Problems Problem Noted Date Diagnosed Date Acute blood loss anemia 01/25/2024 UGIB (upper gastrointestinal bleed) 01/25/2024 Melena 01/25/2024 Nausea and vomiting 01/25/2024 Beta thalassemia trait 01/12/2024 Migraine 07/29/2022 Internal hemorrhoids 04/25/2022 Erosive gastritis with hemorrhage 05/23/2021 Irritable bowel syndrome with constipation 01/25 Chronic combined systolic an d diastolic CHF (congestive heart failure) 11/06/2017 Hypertension, essential 07/16/2017 Microcytic anemia 07/16/2017 Type 2 diabetes mellitus wit h hyperglycemia, without long-term current use of insulin 07/16/2017 Encounters Date Type Department Care Team Description 08/10/2024 External Device Data [facility] Provider, Abstract 07/29/2024 External Device Data [facility] Provider, Abstract 07/27/2024 External Device Data [facility] Provider, Abstract 06/22/2024 External Device Data [facility] Provider, Abstract from Last 3 Months Social History Tobacco Use Types Packs/Day Years Used Date Smoking Tobacco: Never Assessed Feeling Safe Answer Date Recorded Are you in a relationship wi th someone who hurts you emotionally and/or physically? No 01/26/2024 Food Insecurity Answer Date Recorded Patient needs follow up regardin 07/17/2024 Transportation Needs Answer Date Record ed Patient needs follow up regardin 07/17/2024 Housing Stability Answer Date Recorded Social/Environmental Concerns No concerns Utility Needs Answer Date Recorded Patient needs follow up regardin 07/17/2024 Comments Unknown Sex and Gender Information Value Date Recorded Sex Assigned at Not on file Legal Sex Female 11:49 AM CDT Gender Identity Not on file Sexual Orientation Not on file Last Filed Vital Signs Vital Sign Reading Time Taken Comments Blood Pressure 115/66 01/28/2024 4:25 AM CHAR CONVEYOR TENDER CELLAR Pulse 79 01/28/2024 4:25 AM CHAR CONVEYOR TENDER CELLAR Temperature 36.9 C (98.4 F) 01/28/2024 4:25 AM CHAR CONVEYOR TENDER CELLAR Respiratory Rate 16 01/28/2024 4:25 AM CHAR CONVEYOR TENDER CELLAR Oxygen Saturation 100% 01/28/2024 4:25 AM CHAR CONVEYOR TENDER CELLAR Inhaled Oxygen Concentration - - Weight 77.9 kg (171 lb 11.2 oz) 01/25/2024 2:00 AM CHAR CONVEYOR TENDER CELLAR Height 162.6 cm (5' 4) 01/25/2024 2:00 AM CHAR CONVEYOR TENDER CELLAR Body Mass Index 29.47 01/25/2024 2:00 AM CHAR CONVEYOR TENDER CELLAR Plan of Treatment Health Maintenance Due Date Last Done Comments DIABETES MICROALBUMIN ANNUAL SCREEN 06/01/1987 LDL CHOLESTEROL ANNUAL 06/01/1987 HEPATITIS B VACCINES (1 of 3 - 19+ 3-dose series) 1988 HPV/Cotest (21-29) 1990 HPV/Cotest (30-65) 06/01/1999 FIT-DNA Q 3 years 2014 FIT/FOBT Q 1 year 2014 Flex Sig/CT Colonography Q 5 years 2014 ZOSTER VACCINE (2 of 2) 09/07/2022 07/13/2022 BREAST CANCER SCREENING 01/25/2024 01/25/20 23, 06/19/2022, 06/19/2022, Additional history exists DIABETES HBA1C Q 6 MONTHS 07/24/20244, 11/14/2023, 04/15/2023 CERVICAL CANCER SCREENING 09/26/2024 PAP SMEAR 09/26/2024 09/26/2021 INFLUENZA VACCINE (#1) 2024 , 11/13/2021, 11/30/2020, Additional history exists DIABETES ANNUAL FOOT EXAM 11/13/2024 11/14/2023 DIABETES ANNUAL RETINAL EXAM 11/30/2024 12/01/2023 DTAP/TDAP/TD VACCINES (2 - T d or Tdap) 06/07/2032 06/07/2022 COLORECTAL SCREENING 01/26/2034 01/27/2024, 01/27/2024, 10/29/2017 Colorectal Cancer Screening 01/26/2034 Procedures Procedure Name Priority Date/Time Associated Diagnosis Comments COLONOSCOPY REPORT 01/27/2024 10 :31 AM CHAR CONVEYOR TENDER CELLAR HEMOGLOBIN A1C Stat 01/25/2024 8:08 AM CHAR CONVEYOR TENDER CELLAR from Last 3 Months or Most Recently Relevant to Health Maintenance Results * COLONOSCOPY REPORT (01/27/2024 10:31 AM CHAR CONVEYOR TENDER CELLAR) Narrative Procedure Note Roman Pang MD - 01/27/2024 10:31 AM CST [facility] Endoscopy Patient Name: Jodie Sutton Procedure Date: 01/27/2024 Date of : 1970 Attending MD: Roman Pang , , Procedure: Colonoscopy Indications: Melena, Iron deficiency anemia secondary to chronic blood loss Providers: Roman Pang Referring MD: Medicines: See the Anesthesia note for documentation of the administered medications Complications: No immediate complications. Procedure: Informed consent was obtained for the procedure, including moderate sedation after risks were discussed. Based on the pre-procedure assessment, including review of the patient's medical history, medications, allergies, and review of systems, the patient was deemed to be an appropriate candidate for sedation. A timeout was performed. Continuous ECG monitoring, pulse oximetry, blood pressure monitoring, and direct observation were performed. The was introduced through the anus and advanced to the cecum, identified by appendiceal orifice and ileocecal valve. The colonoscopy was performed without difficulty. The quality of the bowel preparation was good. Estimated Blood Loss: Estimated blood loss: none. Findings: Multiple diverticula were found in the sigmoid colon. The exam was otherwise normal throughout the examined colon. Impression: - Diverticulosis in the sigmoid colon. - No specimens collected. Recommendation: Monitor Hgb. No additional inpatient GI investigation. Wait a week to resume Eliquis. Roman Pang, 01/27/2024 10:29:57 AM Number of Addenda: [address]; [place] [address] Roman Pang MD GI PROCEDURE ORDERABLES Final Re sult * HEMOGLOBIN A1C (01/25/2024 8:08 AM CHAR CONVEYOR TENDER CELLAR) HEMOGLOBIN A1C 5.3 <5.7 % 01/25/2024 2:20 PM CHAR CONVEYOR TENDER CELLAR [facility] EST. AVG GLUCOSE, A1C 105 mg/dL 01/25/2024 2:20 PM [facility] Blood Venipuncture / Unknown 01/25/2024 8:08 AM CHAR CONVEYOR TENDER CELLAR 01/25/2024 8:12 AM CHAR CONVEYOR TENDER CELLAR Narrative [facility] - 01/25/2024 2:20 PM CHAR CONVEYOR TENDER CELLAR HGB A1C INTERPRETATION NORMAL: <5.7% PRE-DIABETES: 5.7 - 6.4% DIABETES: 6.5% OR GREATER Scooter Whitley MD CHEMISTRY ORDERABLES Final Re sult [facility] [employer] CLIA# [id number] [address] [place] [address] from Last 3 Months or Most Recently Relevant to Health Maintenance Insurance [facility] MEDICAID [place] Advance Directives For more information, please contact: [phone] * Full Code (Latest Code Status on File) Date Activated Date Inactivated Comments 01/24/2024 11:01 PM 01/28/2024 4:29 PM
--- OUTSIDE RECORDS SUMMARY | 2024-09-20 11:59 | XMS_ITS | Encounter Summary ---
Author Organization [facility] Address [address] [place] [address] Phone Care Team Providers Care Employee Relations Advisor Name Role Phone Phil Jacobo MD Unavailable [phone] Rajiv Mccormack NP Unavailable Unavailable Alize Acosta SHOE SHINER, MECHANICAL EQUIPMENT SALES ENGINEER Unavailable [phone] David Salmon MD Unavailable Maurilio Farley MD Unavailable Dom Quiñonez MD Unavailable Rachelle Nava APRN, HARVEST SUPERVISOR Unavailable + [phone] Irais Naylor SHOE SHINER, MECHANICAL EQUIPMENT SALES ENGINEER Unavailable + [phone] Sharri Gaspar MD Unavailable Tani Biggs PAC Primary Care Provider [phone] Amber Aldrich SHOE SHINER, MECHANICAL EQUIPMENT SALES ENGINEER Unavailable Reason for Visit * Reason Onset Date Comments Medication Management 07/20/2024 Encounter Details Date Type Department Care Team (Late st Contact Info) Description 07/20/2024 Results Follow-Up [facility] - Cardiology - [place] [address]2 [place] [address] Amber Aldrich APRN, MECHANICAL EQUIPMENT SALES ENGINEER #2 [place] [address] THYROID STIMULATING HORMONE (TSH), THYROXINE (T4) FREE, MAGNESIUM (MG), Additional followed-up results: 2 Social History Tobacco Use Types Packs/Day Years Used Date Smoking Tobacco: Some Days Cigarettes 1 37.1 Started: 1984; Last attempted to quit: 04/12/2021 Passive Smoke Exposure: Never Smokeless Tobacco: Never Alcohol Use Standard Drinks/Week Comments Not Currently 0 (1 standard drink = 0.6 oz pur e alcohol) Last drink in [address] [facility] Utilities Answer Date Recorded In the [...] Never 03/22/2024 How often do you attend [facility] or [facility]astaf[facility] services? 1 to 4 times per year 03/22/2024 Do you belong to any clubs o r organizations such as congregation groups, unions, fraternal or athletic groups, or [...] Recorded Total Score - Questions 1-9 19 08/09 [facility] - Occupational Stress Questionnaire Answer Date [...] in a detention (including now)? No 03/24/2023 Housing Stability Vital Sign Answer Jovany e Recorded In the last 12 months, was t here a time when you were not able to pay the mortgage or rent on time? Yes 03/22/2024 In the past 12 months, how m any times have you moved where you were living? 0 03/22/2024 At any time in the past 12 m [facility], were you homeless or living in a detention (including now)? 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 Question Answer Date of Assessment Author Patient Health Questionnaire -2 Score 3 09/01/2024 3:55 PM CDT Angelic Phelan, Student documented as of this encounter Progress Notes * Amber Aldrich APRN, CNP - 07/27/2024 4:00 PM CDT May resume lasix. documented in this encounter Miscellaneous Notes * Telephone Encounter - Tonia Williamson RN - 07/27/2024 3:41 PM CDT See previous messages Patient calling States ever since stopping the lasix her BLE have been moderately swollen, leaving heath from her ankle socks and has went from 156-164lbs Elevates her feet, don't go all the way down in the morning No other symptoms Talked to PCP today and told her to call cardiology to see if she could go back on lasix Please advise documented in this encounter Plan of Treatment Upcoming Encounters Date Type Department Care Team (Late st Contact Info) Description 09/21/2024 3:20 PM CDT Office Visit [facility] Oncology Services [address] [place] [address] Melony Asif Stacey, PAC [address] [place] [address] Discharge Disposition: Discharged to home or Selfcare 10/18/2024 1:00 PM CDT Office Visit [facility] - Pulmonology & Sleep Medicine - [place] [address] [place] [address] Dom Quiñonez MD [address] [place] [address] 10/26/2024 1:00 PM CDT Office Visit [facility] - Cardiology - [place] [address] [place] [address] Ambre Aldrich, SHOE SHINER, MECHANICAL EQUIPMENT SALES ENGINEER [address] [place] [address] 11/09/2024 2:00 PM CDT Telemedicine [facility] [address] [place] [address] Alize Acosta, SHOE SHINER, MECHANICAL EQUIPMENT SALES ENGINEER [address] [place] [address] 11/18/2024 3:45 PM CDT Office Visit [facility] - Endocrinology - [place] [address] [place] [address] David Salmon MD #[address] [address] 03/04/2025 3:10 PM CUSTOMER EXPERIENCE ASSOCIATE Lab [facility] [place] [address] [place] [address] Lab, [facility] 03/04/2025 3:30 PM CUSTOMER EXPERIENCE ASSOCIATE Office Visit [facility] - [place] [address] [place] [address] Tani Biggs PAC [address] [address] Scheduled Orders Name Type Priority Associated Diagnoses Orde r Schedule BASIC METABOLIC PANEL W/ CALCIUM TOTAL Lab Routine Decreased GFR Expected: 09/20/2024, Expires: 11/21/2024 documented as of this encounter Goals Goal Patient Goal Type Associated Problems Recent Progress Patient-Stated? Author ACTIVITY Activity No change(08/08 2:42 PM CDT) Yes Maritza Vanegas, RN Note: Bonny will walk five days a week. Goal Reviewed with: Bonny Readiness to change: Department associated with goal[facility] Steps to achieve [...] change Department associated with goal: [facility] Steps to [...] diet Depression Depression Improving(0 03/15/2022 2:27 PM CUSTOMER EXPERIENCE ASSOCIATE) No Breanne Saldana LCSW Note: Goal/Objective: Decrease symptoms of depression associated with grief and loss as well as the increase of anxiety and panic with follow up with out patient counseling. Anticipated Time Frame for Goal Completion: 2 week Depression and Anxiety Depression On track(07/13 4:30 PM CDT) Yes Ariela Hurtado LCPC Note: I don't have no energy Goal/Objective: Decrease depression. Anticipated Time Frame for Goal Completion: 6 months Goal Reviewed with: patient Readiness to change: Ready to change Department associated with goal: [facility] Steps to [...] and or cope with anxiety and depression. Constipation General Improving(0 12/08/2023 2:41 PM CDT) [...] On track(05/18 1:50 PM CDT) Yes Maritza Vanegas, RN Note: Goal Reviewed with: Bonny Readiness [...] as of this encounter Visit Diagnoses Diagnosis Decreased GFR- Primary Nonspecific abnormal results of kidney function study documented in this encounter Additional Health Concerns Assessment Noted Time PHQ-9 Depression Total Score: 24 025 9:22 AM CDT documented as of this encounter Care Teams Employee Relations Advisor Relationship Specialty Start Date End Date Tani Biggs, [facility] [address] [place] [address] PCP - General Physician Hospital Clinic Assistant 05/31/24 Phil Jacobo MD [address] [place] [address] Consulting Physician Neurology 03/07/21 Rajiv Mccormack, KELI [address] [place] [address] Nurse Practitioner Gastroenterology 03/07/21 Alize Acosta APRN, MECHANICAL EQUIPMENT SALES ENGINEER [address] [place], [place] [address] [facility] (VAC) STRAIGHT TRUCK DRIVER Advanced Practice Nurse 08/30/21 David Salmon MD #[address] [phone] Consulting Physician Endocrinology 01/15/22 Maurilio Farley MD #[address] [id number] Consulting Physician Colon and Rectal Surgery 09/20/22 Dom Quiñonez MD #[address] [place] [address] Consulting Physician Pulmonary Disease 11/19/21 Rachelle Nava APRN, HARVEST SUPERVISOR [address] [place] [address] Nurse Practitioner Advanced Practice Nurse 07/19/22 Irais Naylor APRN, MECHANICAL EQUIPMENT SALES ENGINEER #2 [facility] [address] [place] [address] Nurse Practitioner Cardiology 06/27/23 07/29/24 Sharri Gaspar MD 2 [facility] [address] [place] [address] Consulting Physician Cardiology 04/26/24 Amber Aldrich APRN, MECHANICAL EQUIPMENT SALES ENGINEER [address] [place] [address] Nurse Practitioner Cardiology 07/30/24 documented as of this encounter
--- OUTSIDE RECORDS SUMMARY | 2024-09-20 11:59 | XMS_ITS | Encounter Summary ---
Author Organization [facility] Address [address] [place] [address] Phone Care Team Providers Care Biological Engineer Name Role Phone Jackeline Dimas BANBURY MIXER OPERATOR, MECHANICS SUPERVISOR Primary Care Provider Phil Jacobo MD Unavailable [phone] Rajiv Mccormack NP Unavailable Unavailable Alize Acosta [place] MIXER OPERATOR, MECHANICS SUPERVISOR Unavailable [phone] Dayo Chaney MD Unavailable Juanita Hauser RN Unavailable UnavailDavid Alexandre MD Unavailable Emilia Tang MD Primary Care Provider [phone] Maurilio Farley MD Unavailable Physician, Candida Davis MD Unavailable Rebeka Trinidad MD Primary Care Provider + [phone] Dom Quiñonez MD Unavailable Rachelle Nava [place] MIXER OPERATOR, HR ASSISTANT Unavailable + [phone] Irais Naylor [place] MIXER OPERATOR, MECHANICS SUPERVISOR Unavailable + [phone] Lorri Leo [place] MIXER OPERATOR, MECHANICS SUPERVISOR Primary Care Provider [phone] Rebeka Trinidad MD Primary Care Provider + [phone] Ahmet Lorri M [place]AN[place]Y MIXER OPERATOR, [facility] Primary Care Provider + [phone] Sharri Gaspar MD Unavailable Tani Biggs [facility] Primary Care Provider [phone] Amber Aldrich BANBURY MIXER OPERATOR, [facility] Unavailable Reason for Visit * Reason Comments Medication Refill Encounter Details Date Type Department Care Team (Late st Contact Info) Description 11/08/2021 Refill [facility] - Primary Care - [place] [address] [place] [address] Jackeline Dimas BANBURY MIXER OPERATOR, [facility] [address] [place] [address] Medication Refill Social History Tobacco Use Types Packs/Day Years Used Date Smoking Tobacco: Former Cigarettes 0.5 15 0 04/12/2006 - 04/12/2021 Smokeless Tobacco: Never Alcohol Use Standard Drinks/Week Comments Not Currently 0 (1 standard drink = 0.6 oz pur e alcohol) last drank 2 years ago PHQ-2 Answer Date Recorded Total Score - Questions 1-9 1 04/2021 Sexually Active Control Partners Comments Not Currently Comments No Sex and Gender Information Value Date Recorded Sex Assigned at Female 10/21/2022 4:24 PM CDT Legal Sex Female 10:38 PM CDT Gender Identity Female 10/21/2022 4:24 PM CDT Sexual Orientation Not on file 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 No / Unsure 10/18/2021 1:42 PM CDT documented as of this encounter Miscellaneous Notes * Telephone Encounter - Indira Lopez RN - 11/08/2021 9:36 AM CDT Medication discontinued 05/29/2021 documented in this encounter Plan of Treatment Upcoming Encounters Date Type Department Care Team (Late st Contact Info) Description 09/21/2024 3:20 PM CDT [facility] [address] [place] [address] Melony Asif Stacey, PAC [address] [place] [address] Discharge Disposition: Discharged to home or Selfcare 10/18/2024 1:00 PM CDT Office Visit [facility] - Pulmonology & Sleep Medicine - [place] [address] [place] [address] Dom Quiñonez MD [address] [place] [address] 10/26/2024 1:00 PM CDT [facility] - [facility]iology - [place] [address] [place] [address] Amber Aldrich APRN, MECHANICS SUPERVISOR [address] [place] [address] 11/09/2024 2:00 PM CDT Telemedicine [facility] [address] [place] [address] Alize Acosta APRN, MECHANICS SUPERVISOR [address] [place] [address] 11/18/2024 3:45 PM CDT Office Visit [facility] - Endocrinology - [place] [address] [place] [address] David Salmon MD [address] [address] 03/04/2025 3:[address] GRADER OPERATOR Lab [facility] [place] [address] [place] [address] [facility] 03/04/2025 3:[address] GRADER OPERATOR Office Visit [facility] [place] [address] [place] [address] Tani Biggs, ESTRELLITA [address] [place] [address] documented as of this encounter [...] 19 04/18/2024 04/18/2024 04/18/2024 10:[address] GRADER OPERATOR Respiratory Rule-Out 05/06/2024 05/06/2024 025 9:[address] GRADER OPERATOR COVID - 19 05/06/2024 05/06/2024 05/06/2024 9:[address] GRADER OPERATOR Assessment Noted Time PHQ-9 Depression Total Score: 0 09/01/19 20 11:58 AM CDT documented as of this encounter Care Teams Biological Engineer Relationship Specialty Start Date End Date Jackeline Dimas APRN, MECHANICS SUPERVISOR [address] [place] [address] PCP - General Advanced Practice Nurse 07/31/17 Emilia Tang MD [address] [place] [address] PCP - General Family Medicine 06/07/22 03/25/23 Rebeka Trinidad MD [address] [place] [address] PCP - General Family Medicine 03/26/23 03/29/24 Lorri Leo APRN, MECHANICS SUPERVISOR [address] [place] [address] PCP - General Certified Nurse Practitioner 03/30/24 04/20/24 Rebeka Trinidad MD [address] [place] [address] PCP - General Family Medicine 04/21/24 04/21/24 Lorri Leo APRN, MECHANICS SUPERVISOR [address] [place], [place] [phone] PCP - General Certified Nurse Practitioner 04/22/24 05/30/24 Tani Biggs, PAC [address] [place] [address] PCP - General Physician Draw Tender 05/31/24 Phil Jacobo MD [address] [place] [address] Consulting Physician Neurology 03/07/21 Rajiv Mccormack, KELI [address] [place] [address] Nurse Practitioner Gastroenterology 03/07/21 Alize Acosta, BANBURY MIXER OPERATOR, MECHANICS SUPERVISOR [address] [place] [address] Virtual [facility] Care (VAC) WEIGHT CALLER Advanced Practice Nurse 08/30/21 Dayo Chaney MD [address] [place] [address] Interior Systems Carpenter Cardiovascular Disease - Cardiology 09/20/21 02/12/24 Juanita Mercado RN [place] Registered Nurse Cardiology 12/24/21 02/12/24 David Salmon MD #[address] [address] Consulting Physician Endocrinology 01/15/22 Maurilio Farley MD #[address] [address] Consulting Physician Colon and Rectal Surgery 09/20/22 Physician, Candida Davis MD [address] [place] [address] Family Medicine 01/25/22 03/18/23 Dom Quiñonez MD #[address] [place] [address] Consulting Physician Pulmonary Disease 11/19/21 Rachelle Nava APRN, HR ASSISTANT [address] [place] [address] Nurse Practitioner Advanced Practice Nurse 07/19/22 Irais Naylor APRN, MECHANICS SUPERVISOR #[address] [address] Nurse Practitioner Cardiology 06/27/23 07/29/24 Sharri Gaspar MD [address] [address] Consulting Physician Cardiology 04/26/24 Amber Aldrich APRN, MECHANICS SUPERVISOR [address] [place] [address] Nurse Practitioner Cardiology 07/30/24 documented as of this encounter
--- OUTSIDE RECORDS SUMMARY | 2024-09-20 11:59 | XMS_ITS ---
Author Organization [facility] Address [address] [place] [address] Phone Care Team Providers Care Data Management Engineer Name Role Phone Phil Jacobo MD Unavailable [phone] Rajiv Mccormack NP Unavailable Unavailable Alize Acosta APRN, MEDICAL ASSISTANT DERMATOLOGY Unavailable David Salmon MD Unavailable Maurilio Farley MD Unavailable Dom Quiñonez MD Unavailable Rachelle Nava APRN, POOL INSTALLER Unavailable + [phone] Sharri Gaspar MD Unavailable Tani Biggs Primary Care Provider Amber Aldrich APRN, MEDICAL ASSISTANT DERMATOLOGY Unavailable [facility] Status:Enrolled (Active) Start date:01/25/2022 Enrollment date:02/19/2023 Continued Care and Services Coordination
--- OUTSIDE RECORDS SUMMARY | 2024-09-20 11:59 | XMS_ITS | Encounter Summary ---
Author Organization [facility] Address [address] [place] [address] Phone Care Team Providers Care Fire Extinguisher Technician Name Role Phone Phil Jacobo MD Unavailable [phone] Rajiv Mccormack NP Unavailable Unavailable Alize Acosta SUPERINTENDENT PIPELINES, COMMUNITY LEADER Unavailable [phone] Dayo Chaney MD Unavailable Juanita Hauser RN Unavailable Unavaila David Martinez MD Unavailable Emilia Tang MD Primary Care Provider [phone] Maurilio Farley MD Unavailable PhysicianCandida MD Unavailable Rebeka Trinidad MD Primary Care Provider + [phone] Dom Quiñonez MD Unavailable Rachelle Nava SUPERINTENDENT PIPELINES, NURSE EMERGENCY Unavailable + [phone] Irais Naylor SUPERINTENDENT PIPELINES, COMMUNITY LEADER Unavailable + [phone] Lorri Leo SUPERINTENDENT PIPELINES, COMMUNITY LEADER Primary Care Provider + [phone] Rebeka Trinidad MD Primary Care Provider + [phone] Lorri Leo SUPERINTENDENT PIPELINES, COMMUNITY LEADER Primary Care Provider + [phone] Sharri Gaspar MD Unavailable Tani Biggs Primary Care Provider + [phone] Valdemar Amber Dinora WELLS, COMMUNITY LEADER Unavailable Reason for Visit * Reason Comments Medication Refill Encounter Details Date Type Department Care Team (Late st Contact Info) Description 09/04/2022 Refill [facility] - Endocrinology - [place] [address] [place] [address] David Salmon MD [address] [address] Medication Refill Social History Tobacco [...] 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 No / Unsure 09/06/2022 8:44 AM CDT documented as of this encounter Miscellaneous Notes * Telephone Encounter - Yesi Leggett, RN - 09/04/2022 10:26 AM CDT Requested Prescriptions Pending Prescriptions Disp Refills ??? TRUEplus 5-Bevel Pen Curlew 32G X 4 MM Misc [Pharmacy Med Name: TRUEPLUS 5- BEVEL PEN NEEDLE [id number]] 100 Each 1 Sig: USE DAILY DIRECTED. Next appt: 10/31/2022 documented in this encounter Plan of Treatment Upcoming Encounters Date Type Department Care Team (Late st Contact Info) Description 09/21/2024 3:20 PM CDT Office Visit [facility] Oncology Services [address] [place] [address] Melony Asif, [facility] [address] [place] [address] Discharge Disposition: Discharged to home or Selfcare 10/18/2024 1:00 PM CDT [facility] - Pulmonology & Sleep Medicine [facility] [address] [place] [address] Dom Quiñonez MD [address] [place] [address] 10/26/2024 1:00 PM CDT [facility] - [facility] - [place] [address] [place] [address] Amber Aldrich, SUPERINTENDENT PIPELINES, COMMUNITY LEADER [address] [place] [address] 11/09/2024 2:00 PM CDT Telemedicine [facility] [address] [place] [address] Alize Acosta, SUPERINTENDENT PIPELINES, COMMUNITY LEADER [address] [place] [address] 11/18/2024 3:45 PM CDT Office Visit [facility] - Endocrinology - [place] [address] [place] [address] David Salmon MD #[address] [address] 03/04/2025 3:10 PM JOURNEYMAN MOLDER Lab [facility] [address] [place] [address] [facility] 03/04/2025 3:30 PM JOURNEYMAN MOLDER Office Visit [facility] [address] [place] [address] Tani Biggs PAC [address] [place] [address] documented as of this encounter [...] diet Depression Depression Improving(0 03/15/2022 2:27 PM JOURNEYMAN MOLDER) No Breanne Saldana, GROUNDSKEEPING MAINTENANCE Note: Goal/Objective: Decrease symptoms of depression associated [...] 19 04/18/2024 04/18/2024 04/18/2024 10:4 7 PM JOURNEYMAN MOLDER Respiratory Rule-Out 05/06/2024 05/06/2024 025 9:20 AM JOURNEYMAN MOLDER COVID - 19 05/06/2024 05/06/2024 05/06/2024 9:19 AM JOURNEYMAN MOLDER Assessment Noted Time PHQ-9 Depression Total Score: 24 022 3:31 PM JOURNEYMAN MOLDER documented as of this encounter Care Teams Fire Extinguisher Technician Relationship Specialty Start Date End Date Emilia Tang MD [address] [place] [address] PCP - General Family Medicine 06/07/22 03/25/23 Rebeka Trinidad MD [address] [place] [address] PCP - General Family Medicine 03/26/23 03/29/24 Lorri Leo APRN, COMMUNITY LEADER [address] [place] [address] PCP - General Certified Nurse Practitioner 03/30/24 04/20/24 Rebeka Trinidad MD [address] [place] [address] PCP - General Family Medicine 04/21/24 04/21/24 Lorri Leo APRN, COMMUNITY LEADER [address] [place] [address] PCP - General Certified Nurse Practitioner 04/22/24 05/30/24 Tani Biggs PAC [address] [place] [address] PCP - General Physician Reinforced Steel Placing Supervisor 05/31/24 Phil Jacobo MD [address] [place] [address] Consulting Physician Neurology 03/07/21 Rajiv Mccormack, CLAY MILLER [address] [place] [address] Nurse Practitioner Gastroenterology 03/07/21 Alize Acosta, SUPERINTENDENT PIPELINES, COMMUNITY LEADER [address] [place] [address] Virtual Advanced Care (VAC) LEATHER BELT MAKER Advanced Practice Nurse 08/30/21 Dayo Chaney MD [address] [place] [address] Thermostat Machine Tender Cardiovascular Disease - Cardiology 09/20/21 02/12/24 Juanita Mercado RN [place] Registered Nurse Cardiology 12/24/21 02/12/24 David Salmon MD #[address] [address] Consulting Physician Endocrinology 01/15/22 Maurilio Farley MD #[address] [address] Consulting Physician Colon and Rectal Surgery 09/20/22 PhysicianCandida MD [address] [place] [address] Family Medicine 01/25/22 03/18/23 Dom Quiñonez MD #[address] [place] [address] Consulting Physician Pulmonary Disease 11/19/21 Rachelle Nava, SUPERINTENDENT PIPELINES, NURSE EMERGENCY [address] [place] [address] Nurse Practitioner Advanced Practice Nurse 07/19/22 Irais Naylor APRN, COMMUNITY LEADER #2 [facility] [address] [place] [address] Nurse Practitioner Cardiology 06/27/23 07/29/24 Sharri Gaspar MD 2 [facility] [place] [place] [address] Consulting Physician Cardiology 04/26/24 Amber Aldrich APRN, COMMUNITY LEADER [address] [place] [address] Nurse Practitioner Cardiology 07/30/24 documented as of this encounter
--- OUTSIDE RECORDS SUMMARY | 2024-09-20 11:59 | XMS_ITS | Encounter Summary ---
Author Organization [facility] Address [address] [place] [address] Phone Care Team Providers Care Clother In Name Role Phone Jackeline Dimas SNACK BAR CASHIER, FIELD TECHNICAL SUPPORT CONSULTANT Primary Care Provider Fiona Martinez COAL TRIMMER Unavailable Unavailab Phil Ellis MD Unavailable [phone] Rajiv Mccormack NP Unavailable Unavailable Renita Quezada RN Unavailable Unavailable Alize Acosta SNACK BAR CASHIER, FIELD TECHNICAL SUPPORT CONSULTANT Unavailable +[phone] Dayo Chaney MD Unavailable Juanita Hauser RN Unavailable Unavaila David Martinez MD Unavailable Emilia Tang MD Primary Care Provider [phone] Maurilio Farley MD Unavailable Candida Turner MD Unavailable Rebeka Trinidad MD Primary Care Provider + [phone] Dom Quiñonez MD Unavailable Rachelle Nava SNACK BAR CASHIER, CAPTAIN WAITER Unavailable + [phone] Irais Naylor SNACK BAR CASHIER, FIELD TECHNICAL SUPPORT CONSULTANT Unavailable + [phone] AhmetAngélicamando Littlejohn SNACK BAR CASHIER, FIELD TECHNICAL SUPPORT CONSULTANT Primary Care Provider + [phone] Rebeka Trinidad MD Primary Care Provider + [phone] Lorri Leo SNACK BAR CASHIER, FIELD TECHNICAL SUPPORT CONSULTANT Primary Care Provider +[phone] Sharri Gaspar MD Unavailable Tani Biggs [facility] Primary Care Provider + [phone] Amber Aldrich SNACK BAR CASHIER, FIELD TECHNICAL SUPPORT CONSULTANT Unavailable Reason for Visit * Reason Comments Medication Refill Encounter Details Date Type Department Care Team (Late Contact Info) Description 10/12/2020 Refill [facility] Primary Care - [place] [address] [place] [address] Jackeline Dimas, SNACK BAR CASHIER, [facility] [address] [place] [address] Medication Refill Social History Tobacco [...] 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 Not [...] Description 09/21/2024 3:20 PM CDT Office Visit [facility] Oncology Services [address] [place] [phone] Melony Asif, ESTRELLITA [address] [place] [address] Discharge Disposition: Discharged to home or Selfcare 10/18/2024 1:00 PM CDT Office Visit [facility] - Pulmonology & Sleep Medicine - [place] #2 [place] [address] Dom Quiñonez MD #2 [place] [address] 10/26/2024 1:00 PM CDT Office Visit [facility] - Cardiology - [place] #2 [place] [address] Amber Aldrich, SNACK BAR CASHIER, FIELD TECHNICAL SUPPORT CONSULTANT #2 [place] [address] 11/09/2024 2:00 PM CDT Telemedicine [facility] [address] [place] [address] Alize Acosta, SNACK BAR CASHIER, FIELD TECHNICAL SUPPORT CONSULTANT [address] [place] [address] 11/18/2024 3:45 PM CDT Office Visit [facility] - Endocrinology - [place] #2 [place] [address] David Salmon MD #[address] [address] 03/04/2025 3:10 PM CAUSTIC PURIFICATION OPERATOR Lab [facility] - Primary Care - [place] [facility] [place] [address] [place] Colon [facility] 03/04/2025 3:30 PM CAUSTIC PURIFICATION OPERATOR [facility] - [place] [address] [place] [address] Tani Biggs PAC [address] [place] [address] documented as of this encounter Visit Diagnoses Not on filedocumented in this encounter Additional Health Concerns Infection Onset Date Last Indicated Resolved Time COVID - 19 01/08/2021 01/08/2021 01/28/2021 12:1 6 AM CAUSTIC PURIFICATION OPERATOR COVID - 19 03/12/2021 03/12/2021 04/01/2021 12:1 6 AM CAUSTIC PURIFICATION OPERATOR COVID - 19 12/15/2021 12/15/2021 12/15/2021 7:26 PM CDT COVID - 19 Confirmed 12/15/2021 12/15/2021 022 12:16 AM CDT COVID - 19 04/18/2024 04/18/2024 04/18/2024 10:4 7 PM CAUSTIC PURIFICATION OPERATOR Respiratory Rule-Out 05/06/2024 05/06/2024 025 9:20 AM CAUSTIC PURIFICATION OPERATOR COVID - 19 05/06/2024 05/06/2024 05/06/2024 9:19 AM CAUSTIC PURIFICATION OPERATOR Assessment Noted Time PHQ-9 Depression Total Score: 0 09/01/19 20 11:58 AM CDT documented as of this encounter Care Teams Clother In Relationship Specialty Start Date End Date Jackeline Dimas, SNACK BAR CASHIER, FIELD TECHNICAL SUPPORT CONSULTANT [address] [place] [address] PCP - General Advanced Practice Nurse 07/31/17 Emilia Tang MD [address] [place], [place] [id number] PCP - General Family Medicine 06/07/22 03/25/23 Rebeka Trinidad MD [address] [place] [address] PCP - General Family Medicine 03/26/23 03/29/24 Lorri Leo APRN, FIELD TECHNICAL SUPPORT CONSULTANT [address] [place] [address] PCP - General Certified Nurse Practitioner 03/30/24 04/20/24 Rebeka Trinidad MD [address] [place] [address] PCP - General Family Medicine 04/21/24 04/21/24 Lorri Leo APRN, FIELD TECHNICAL SUPPORT CONSULTANT [address] [place] [address] PCP - General Certified Nurse Practitioner 04/22/24 05/30/24 Tani Biggs PAC [address] [place] [address] PCP - General Physician Dominatrix 05/31/24 Fiona Martinez LSW [place] Commissioner Of Relocation Services 03/01/21 08/23/21 Phil Jacobo MD #[address] [place] [address] Consulting Physician Neurology 03/07/21 Rajiv Mccormack, DEPALLETIZER OPERATOR #[address] [place] [address] Nurse Practitioner Gastroenterology 03/07/21 Renita Quezada RN [place] Commissioner Of Relocation Services 05/09/21 08/23/21 Alize Acosta, SNACK BAR CASHIER, FIELD TECHNICAL SUPPORT CONSULTANT [address] [place] [address] Virtual Advanced Care (VAC) SOLE LAYER Advanced Practice Nurse 08/30/21 Dayo Chaney MD [address] [place] [address] Dance Critic Cardiovascular Disease - Cardiology 09/20/21 02/12/24 Juanita Mercado RN [place] Registered Nurse Cardiology 12/24/21 02/12/24 David Salmon MD #[address] [phone] Consulting Physician Endocrinology 01/15/22 Maurilio Farley MD #[address] [address] Consulting Physician Colon and Rectal Surgery 09/20/22 Physician, Candida Davis MD [address] [place] [address] Family Medicine 01/25/22 03/18/23 Dom Quiñonez MD #2 [place] [address] Consulting Physician Pulmonary Disease 11/19/21 Rachelle Nava, SNACK BAR CASHIER, CAPTAIN WAITER #[address] [place] [address] Nurse Practitioner Advanced Practice Nurse 07/19/22 Irais Naylor SNACK BAR CASHIER, FIELD TECHNICAL SUPPORT CONSULTANT #2 [facility] [address] [place] [address] Nurse Practitioner Cardiology 06/27/23 07/29/24 Sharri Gaspar MD 2 [facility] [address] [address] Consulting Physician Cardiology 04/26/24 Amber Aldrich APRN, FIELD TECHNICAL SUPPORT CONSULTANT #[address] [place] [address] Nurse Practitioner Cardiology 07/30/24 documented as of this encounter
--- OUTSIDE RECORDS SUMMARY | 2024-09-20 11:59 | XMS_ITS | Encounter Summary ---
Author Organization [facility] Address [address] [place] [address] Phone Care Team Providers Care Radio Director Name Role Phone Phil Jacobo MD Unavailable [phone] Rajiv Mccormack NP Unavailable Unavailable Alize Acosta TUB MENDER, LOSS PREVENTION AND SAFETY MANAGER Unavailable +[phone] Dayo Chaney MD Unavailable Juanita Hauser RN Unavailable Unavaila David Martinez MD Unavailable Emilia Tang MD Primary Care Provider [phone] Maurilio Farley MD Unavailable PhysicianCandida MD Unavailable Rebeka Trinidad MD Primary Care Provider + [phone] Dom Quiñonez MD Unavailable Rachelle Nava TUB MENDER, FLOOR SERVICE WORKER SPRING Unavailable + [phone] Irais Naylor TUB MENDER, LOSS PREVENTION AND SAFETY MANAGER Unavailable + [phone] Lorri Leo TUB MENDER, LOSS PREVENTION AND SAFETY MANAGER Primary Care Provider + [phone] Rebeka Trinidad MD Primary Care Provider + [phone] Lorri Leo TUB MENDER, LOSS PREVENTION AND SAFETY MANAGER Primary Care Provider + [phone] Sharri Gaspar MD Unavailable Tani Biggs Primary Care Provider + [phone] Valdemar Amber Dinora WELLS, LOSS PREVENTION AND SAFETY MANAGER Unavailable Reason for Visit * Reason Comments Medication Refill Encounter Details Date Type Department Care Team (Late st Contact Info) Description 09/09/2022 Refill [facility] - Endocrinology - [place] #[address] [place] [address] David Salmon MD #[address] [address] Medication Refill Social History Tobacco [...] 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 No / Unsure 09/06/2022 8:44 AM CDT documented as of this encounter Miscellaneous Notes * Telephone Encounter - Yesi Leggett, RN - 09/09/2022 9:10 AM CDT Requested Prescriptions Pending Prescriptions Disp Refills ??? glimepiride (AMARYL) 2 MG Tablet [Pharmacy Med Name: GLIMEPIRIDE 2MG TABLETS] 180 Tablet 1 Sig: TAKE 2 TABLETS BY MOUTH EVERY MORNING Next appt: 10/31/2022 documented in this encounter Plan of Treatment Upcoming Encounters Date Type Department Care Team (Late st Contact Info) Description 09/21/2024 3:20 PM CDT [facility] [address] [place] [address] Melony Asif Stacey, [facility] [address] [place] [address] Discharge Disposition: Discharged to home or Selfcare 10/18/2024 1:00 PM CDT [facility] - Pulmonology & [facility] Medicine [facility] #2 [place] [address] Dom Quiñonez MD #[address] [place] [address] 10/26/2024 1:00 PM CDT [facility] - [facility]iology - [place] #[address] [place] [address] Amber Aldrich, TUB MENDER, LOSS PREVENTION AND SAFETY MANAGER #[address] [place] [address] 11/09/2024 2:00 PM CDT Telemedicine [facility] [address] [place] [address] Alize Acosta, TUB MENDER, LOSS PREVENTION AND SAFETY MANAGER [address] [place] [address] 11/18/2024 3:45 PM CDT Office Visit [facility] - Endocrinology - [place] [address] [place] [address] David Salmon MD #[address] [address] 03/04/2025 3:10 PM PARTS SALESMAN Lab [facility] [place] [address] [place] [address] [facility], [facility] 03/04/2025 3:30 PM PARTS SALESMAN Office Visit [facility] - [place] [address] [place] [address] Tani Biggs, ESTRELLITA [address] [place] [address] documented as of this encounter [...] diet Depression Depression Improving(0 03/15/2022 2:27 PM PARTS SALESMAN) No Breanne Saldana, DIRECTOR OF REGULATORY AFFAIRS Note: Goal/Objective: Decrease symptoms of depression associated [...] 19 04/18/2024 04/18/2024 04/18/2024 10:4 7 PM PARTS SALESMAN Respiratory Rule-Out 05/06/2024 05/06/2024 025 9:20 AM PARTS SALESMAN COVID - 19 05/06/2024 05/06/202405/06/2024 9:19 AM PARTS SALESMAN Assessment Noted Time PHQ-9 Depression Total Score: 24 022 3:31 PM PARTS SALESMAN documented as of this encounter Care Teams Radio Director Relationship Specialty Start Date End Date Emilia Tang MD [address] [place] [address] PCP - General Family Medicine 06/07/22 03/25/23 Rebeka Trinidad MD [address] [place] [address] PCP - General Family Medicine 03/26/23 03/29/24 Lorri Leo APRN, LOSS PREVENTION AND SAFETY MANAGER [address] [place] [address] PCP - General Certified Nurse Practitioner 03/30/24 04/20/24 Rebeka Trinidad MD [address] [place] [address] PCP - General Family Medicine 04/21/24 04/21/24 Lorri Leo TUB MENDER, LOSS PREVENTION AND SAFETY MANAGER [address] [place] [address] PCP - General Certified Nurse Practitioner 04/22/24 05/30/24 Tani Biggs PAC [address] [place] [address] PCP - General Physician Inside Sales Trainer 05/31/24 Phil Jacobo MD #[address] [place] [address] Consulting Physician Neurology 03/07/21 Rajiv Mccormack, CONTINUOUS MINER OPERATOR HELPER #[address] [place] [address] Nurse Practitioner Gastroenterology 03/07/21 Alize Acosta, RUSSELL, LOSS PREVENTION AND SAFETY MANAGER [address] [place] [address] Virtual Advanced Care (VAC) BRINE PLANT OPERATOR Advanced Practice Nurse 08/30/21 Dayo Chaney MD [address] [place] [address] Casino Surveillance Officer Cardiovascular Disease - Cardiology 09/20/21 02/12/24 Juanita Mercado RN [place] Registered Nurse Cardiology 12/24/21 02/12/24 David Salmon MD #[address] [address] Consulting Physician Endocrinology 01/15/22 Maurilio Farley MD #[address] [address] Consulting Physician Colon and Rectal Surgery 09/20/22 Physician, Candida Davis MD [address] [place] [address] Family Medicine 01/25/22 03/18/23 Dom Quiñonez MD #[address] [place] [address] Consulting Physician Pulmonary Disease 11/19/21 Rachelle Nava APRN, FLOOR SERVICE WORKER [place] #[address] [place] [address] Nurse Practitioner Advanced Practice Nurse 07/19/22 Irais Naylor APRN, LOSS PREVENTION AND SAFETY MANAGER #2 [facility] [address] [place] [address] Nurse Practitioner Cardiology 06/27/23 07/29/24 Sharri Gaspar MD 2 [facility] [place] [facility], [place] [place] [address] Consulting Physician Cardiology 04/26/24 Amber Aldrich APRN, LOSS PREVENTION AND SAFETY MANAGER #[address] [place] [address] Nurse Practitioner Cardiology 07/30/24 documented as of this encounter
--- OUTSIDE RECORDS SUMMARY | 2024-09-20 12:00 | XMS_ITS | Encounter Summary ---
Author Organization [facility] Address [address] [place] [address] Phone Care Team Providers Care Escalator Installer Name Role Phone Phil Jacobo MD Unavailable [phone] Rajiv Mccormack NP Unavailable Unavailable Alize Acosta APRN, CHAINSTITCH ZIPPER SETTER Unavailable [phone] Dayo Chaney MD Unavailable Juanita Hauser RN Unavailable UnavailDavid Alexandre MD Unavailable Maurilio Farley MD Unavailable Rebeka Trinidad MD Primary Care Provider + [phone] Dom Quiñonez MD Unavailable Rachelle Nava RESTAURANT AREA DIRECTOR, INDUSTRIAL CLEANING TECHNICIAN Unavailable + [phone] Irais Naylor RESTAURANT AREA DIRECTOR, CHAINSTITCH ZIPPER SETTER Unavailable + [phone] Lorri Leo RESTAURANT AREA DIRECTOR, CHAINSTITCH ZIPPER SETTER Primary Care Provider + [phone] Rebeka Trinidad MD Primary Care Provider + [phone] Lorri Leo RESTAURANT AREA DIRECTOR, CHAINSTITCH ZIPPER SETTER Primary Care Provider + [phone] Sharri Gaspar MD Unavailable Tani Biggs PAC Primary Care Provider + [phone] Amber Aldrich APRN, CNP Unavailable Encounter Details Date Type Department Care Team (Late st Contact Info) Description 09/12/2023 Transcribe Orders [facility] Central Scheduling [address] [place] [address] Rebeka Trinidad MD [address] [place] [address] Social History Tobacco Use Types Packs/Day Years Used Date Smoking Tobacco: Former Cigarettes 1 37.1 1 985 - 04/12/2021 Smokeless Tobacco: Never Alcohol Use Standard Drinks/Week Comments Not Currently 0 (1 standard drink = 0.6 oz pur e alcohol) last drank [address] [facility] Utilities Answer Date Recorded In the past 12 months has [employer] electric, gas, oil, or water Prad[employer] threatened to shut off services in your home? No 09/08/2023 Social Connection and Isolation Panel Answer Date Recorded In a typical week, how many times do you talk on the phone with family, friends, or neighbors? Once a week 09/08/19 How often do you get togethe r with friends or relatives? Never 09/08/2023 How often do you attend [facility] or jehovah's witness services? 1 to 4 times per year 09/08/2023 Do you belong to any clubs o r organizations such as hoahaoism groups, unions, fraternal or athletic groups, or [...] Recorded Total Score - Questions 1-9 18 / [facility] - Occupational Stress Questionnaire Answer Date [...] place to sleep or slept in a fdc (including now)? No 03/24/2023 Housing Stability Vital Sign Answer Jovany e Recorded In the last 12 months, was t here a time when you were not able to pay the mortgage or rent on time? Yes 09/08/2023 In the past 12 months, how m any times have you moved where you were living? 0 09/08/2023 At any time in the past 12 m [facility], were you homeless or living in a fdc (including now)? 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 on file Not on file documented as of this encounter Plan of Treatment Upcoming Encounters Date Type Department Care Team (Late st Contact Info) Description 09/21/2024 3:20 PM CDT [facility] [address] [place] [address] Melony Asif Stacey, [facility] [address] [place] [address] Discharge Disposition: Discharged to home or Selfcare 10/18/2024 1:00 PM CDT [facility] - Pulmonology & Sleep Medicine - [place] [address] [place] [address] Dom Quiñonez MD #[address] [place] [address] 10/26/2024 1:00 PM CDT Office Visit [facility] - Cardiology - [place] [address] [place] [address] Amber Aldrich APRN, CHAINSTITCH ZIPPER SETTER #[address] [place] [address] 11/09/2024 2:00 PM CDT Telemedicine [facility] [address] [place] [address] Alize Acosta, RUSSELL, CHAINSTITCH ZIPPER SETTER [address] [place] [address] 11/18/2024 3:45 PM CDT Office Visit [facility] - Endocrinology - [place] #[address] [place] [address] David Salmon MD #[address] [address] 03/04/2025 3:10 PM PARLOR CHAPERONE Lab [facility] - [place] [address] [place] [address] Lab, [facility] 03/04/2025 3:30 PM PARLOR CHAPERONE Office [facility] - [place] [address] [place] [address] Tani Biggs PAC [address] [place] [address] documented as of this encounter [...] making a change Department associated with goal: [facility] [place] Steps to achieve goal: [...] diet Depression Depression Improving(0 03/15/2022 2:27 PM PARLOR CHAPERONE) No Breanne Saldana LCSW Note: Goal/Objective: Decrease [...] Lifestyle On track(05/18 1:50 PM CDT) Yes Vanegas, Maritza L, RN Note: Goal Reviewed with: Bonny Readiness [...] 19 04/18/2024 04/18/2024 04/18/2024 10:4 7 PM PARLOR CHAPERONE Respiratory Rule-Out 05/06/2024 05/06/2024 025 9:20 AM PARLOR CHAPERONE COVID - 19 05/06/2024 05/06/2024 05/06/2024 9:19 AM PARLOR CHAPERONE Assessment Noted Time PHQ-9 Depression Total Score: 18 023 9:24 AM CDT documented as of this encounter Care Teams Escalator Installer Relationship Specialty Start Date End Date Rebeka Trinidad MD [address] [place] [address] PCP - General Family Medicine 03/26/23 03/29/24 Lorri Leo APRN, CHAINSTITCH ZIPPER SETTER [address] [place] [address] PCP - General Certified Nurse Practitioner 03/30/24 04/20/24 Rebeka Trinidad MD [address] [place] [address] PCP - General Family Medicine 04/21/24 04/21/24 Lorri Leo APRN, CHAINSTITCH ZIPPER SETTER [address] [place] [address] PCP - General Certified Nurse Practitioner 04/22/24 05/30/24 Tani Biggs PAC [address] [place] [phone] PCP - General Physician Crematorium Operator 05/31/24 Phil Jacobo MD #[address] [place] [address] Consulting Physician Neurology 03/07/21 Rajiv Mccormack NP #[address] [place] [address] Nurse Practitioner Gastroenterology 03/07/21 Alize Acosta APRN, CHAINSTITCH ZIPPER SETTER [address] [place] [address] Virtual Advanced Care (VAC) VBA DEVELOPER Advanced Practice Nurse 08/30/21 Dayo Chaney MD [address] [place] [address] Study Director Cardiovascular Disease - Cardiology 09/20/21 02/12/24 Juanita Mercado RN [place] Registered Nurse Cardiology 12/24/21 02/12/24 David Salmon MD #[address] [address] Consulting Physician Endocrinology 01/15/22 Maurilio Farley MD #[address] [address] Consulting Physician Colon and Rectal Surgery 09/20/22 Dom Quiñonez MD #[address] [place] [address] Consulting Physician Pulmonary Disease 11/19/21 Rachelle Nava APRN, INDUSTRIAL CLEANING TECHNICIAN #[address] [place] [address] Nurse Practitioner Advanced Practice Nurse 07/19/22 Irais Naylor APRN, CHAINSTITCH ZIPPER SETTER #[address] [address] Nurse Practitioner Cardiology 06/27/23 07/29/24 Sharri Gaspar MD 2 [facility] [place] [address] [address] Consulting Physician Cardiology 04/26/24 Amber Aldrich APRN, CHAINSTITCH ZIPPER SETTER #[address] [place] [address] Nurse Practitioner Cardiology 07/30/24 documented as of this encounter
--- OUTSIDE RECORDS SUMMARY | 2024-09-20 12:00 | XMS_ITS | Encounter Summary ---
Author Organization [facility] Address [address] [place] [address] Phone Care Team Providers Care Cost Accounting Analyst Name Role Phone Jackeline Dimas CUSTOMS OFFICER, SERVER SECURITY ADMINISTRATOR Primary Care Provider Phil Jacobo MD Unavailable +[phone] Rajiv Mccormack NP Unavailable Unavailable Alize Acosta CUSTOMS OFFICER, SERVER SECURITY ADMINISTRATOR Unavailable +[phone] Dayo Chaney MD Unavailable Juanita Hauser RN Unavailable UnavailDavid Alexandre MD Unavailable Emilia Tang MD Primary Care Provider [phone] Maurilio Farley MD Unavailable Physician, Candida Davis MD Unavailable Rebeka Trinidad MD Primary Care Provider + [phone] Dom Quiñonez MD Unavailable Rachelle Nava CUSTOMS OFFICER, SLEEVE IRONER Unavailable + [phone] Irais Naylor CUSTOMS OFFICER, SERVER SECURITY ADMINISTRATOR Unavailable + [phone] Lorri Leo CUSTOMS OFFICER, SERVER SECURITY ADMINISTRATOR Primary Care Provider +[phone] Rebeka Trinidad MD Primary Care Provider + [phone] Ahmet Lorri M CUSTOMS OFFICER, [facility] Primary Care Provider + [phone] Sharri Gaspar MD Unavailable Tani Biggs [facility] Primary Care Provider + [phone] Amber Aldrich CUSTOMS OFFICER, [facility] Unavailable Reason for Visit * Reason Comments Medication Refill Encounter Details Date Type Department Care Team (Late st Contact Info) Description 03/30/2022 Refill [facility] - Primary Care - [place] [address] [place] [address] Jackeline Dimas CUSTOMS OFFICER, [facility] [address] [place] [address] Medication Refill Social History Tobacco Use Types Packs/Day Years Used Date Smoking Tobacco: Former Cigarettes 0.5 15 0 04/12/2006 - 04/12/2021 Smokeless Tobacco: Never Alcohol Use Standard Drinks/Week Comments Not Currently 0 (1 standard drink = 0.6 oz pur e alcohol) last drank 2 years ago PHQ-2 Answer Date Recorded Total Score - Questions 1-9 24 11/0 10/2021 Sexually Active Control Partners Comments Not Currently Comments No Sex and Gender Information Value Date Recorded Sex Assigned at Female 10/21/2022 4:24 PM CDT Legal Sex Female 10:38 PM CDT Gender Identity Female 10/21/2022 4:24 PM CDT Sexual Orientation Not on file 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 No / Unsure 04/01/2022 1:35 PM INDUSTRIAL ARTS PUBLIC SCHOOL TEACHER documented as of this encounter Miscellaneous Notes * Telephone Encounter - Indira Lopez RN - 04/01/2022 8:58 AM INDUSTRIAL ARTS PUBLIC SCHOOL TEACHER Refill requested too soon. STRIAL [employer]S PUBLIC SCHOOL TEACHER documented in this encounter Plan of Treatment Upcoming Encounters Date Type Department Care Team (Late st Contact Info) Description 09/21/2024 3:20 PM CDT [facility] [address] [place] [address] Melony Asif Stacey, PAC [address] [place] [address] Discharge Disposition: Discharged to home or Selfcare 10/18/2024 1:00 PM CDT [facility] - Pulmonology & Sleep Medicine [facility] [address] [place] [address] Dom Quiñonez MD #[address] [place] [address] 10/26/2024 1:00 PM CDT Office Visit [facility] - Cardiology - [place] #[address] [place] [address] Amber Aldrich APRN, SERVER SECURITY ADMINISTRATOR [address] [place] [address] 11/09/2024 2:00 PM CDT Telemedicine [facility] [address] [place] [address] Alize Acosta, CUSTOMS OFFICER, SERVER SECURITY ADMINISTRATOR [address] [place] [address] 11/18/2024 3:45 PM CDT Office Visit [facility] - Endocrinology - [place] [address] [place] [address] David Salmon MD #[address] [address] 03/04/2025 3:10 PM INDUSTRIAL ARTS PUBLIC SCHOOL TEACHER Lab [facility] [address] [place] [address] Lab, [facility] 03/04/2025 3:30 PM INDUSTRIAL ARTS PUBLIC SCHOOL TEACHER Office Visit [facility] [place] [address] [place] [address] Tani Biggs, ESTRELLITA [address] [place] [address] documented as of this encounter [...] as recommended. Depression Depression Improving( 2:27 PM INDUSTRIAL [employer]S PUBLIC SCHOOL TEACHER) Breanne Barragan, GRIPS Note: Goal/Objective: Decrease symptoms of depression associated [...] 19 04/18/2024 04/18/2024 04/18/2024 10:4 7 PM INDUSTRIAL ARTS PUBLIC SCHOOL TEACHER Respiratory Rule-Out 05/06/2024 05/06/2024 025 9:20 AM INDUSTRIAL ARTS PUBLIC SCHOOL TEACHER COVID - 19 05/06/2024 05/06/2024 05/06/2024 9:19 AM INDUSTRIAL ARTS PUBLIC SCHOOL TEACHER Assessment Noted Time PHQ-9 Depression Total Score: 24 022 3:31 PM INDUSTRIAL [employer]S PUBLIC SCHOOL TEACHER documented as of this encounter Care Teams Cost Accounting Analyst Relationship Specialty Start Date End Date Jackeline Dimas, CUSTOMS OFFICER, SERVER SECURITY ADMINISTRATOR [address] [place] [address] PCP - General Advanced Practice Nurse 07/31/17 Emilia Tang MD [address] [place] [address] PCP - General Family Medicine 06/07/22 03/25/23 Rebeka Trinidad [place] [address] [place] [address] [address] PCP - General Family Medicine 03/26/23 03/29/24 Lorri Leo APRN, SERVER SECURITY ADMINISTRATOR [address] [place] [address] PCP - General Certified Nurse Practitioner 03/30/24 04/20/24 Rebeka Trinidad MD [address] [place] [address] PCP - General Family Medicine 04/21/24 04/21/24 Lorri Leo APRN, SERVER SECURITY ADMINISTRATOR [address] [place] [address] PCP - General Certified Nurse Practitioner 04/22/24 05/30/24 Tani Biggs, PAC [address] [place] [address] PCP - General Physician Inventory Representative 05/31/24 Phil Jacobo MD #[address] [place] [address] Consulting Physician Neurology 03/07/21 Rajiv Mccormack, STITCHDOWN THREAD LASTER [address] [place] [address] Nurse Practitioner Gastroenterology 03/07/21 Alize Acosta APRN, SERVER SECURITY ADMINISTRATOR [address] [place] [address] [place] [address] Virtual Advanced Care (VAC) RESOLUTION ANALYST Advanced Practice Nurse 08/30/21 Dayo Chaney MD [address] [place] [address] Line Analyst Cardiovascular Disease - Cardiology 09/20/21 02/12/24 Juanita Mercado, [place] Registered Nurse Cardiology 12/24/21 02/12/24 David Salmon MD #[address] [address] Consulting Physician Endocrinology 01/15/22 Maurilio Farley MD #[address] [address] Consulting Physician Colon and Rectal Surgery 09/20/22 PhysicianCandida MD [address] [place] [address] Family Medicine 01/25/22 03/18/23 Dom Quiñonez MD #[address] [place] [address] Consulting Physician Pulmonary Disease 11/19/21 Rachelle Nava APRN, SLEEVE IRONER #[address] [place] [address] Nurse Practitioner Advanced Practice Nurse 07/19/22 Irais Naylor APRN, SERVER SECURITY ADMINISTRATOR #[address] [address] Nurse Practitioner Cardiology 06/27/23 07/29/24 Sharri Gaspar MD [address] [address] Consulting Physician Cardiology 04/26/24 Amber Aldrich APRN, SERVER SECURITY ADMINISTRATOR [address] [place] [address] Nurse Practitioner Cardiology 07/30/24 documented as of this encounter
--- OUTSIDE RECORDS SUMMARY | 2024-09-20 12:00 | XMS_ITS | Encounter Summary ---
Author Organization [facility] Address [address] [place] [address] Phone Care Team Providers Care Ammonium Sulfate Operator Name Role Phone Jackeline Dimas PATIENT PORTAL REPRESENTATIVE, AERIAL PHOTOGRAPHER Primary Care Provider Phil Jacobo MD Unavailable [phone] Rajiv Mccormack NP Unavailable Unavailable Alize Acosta PATIENT PORTAL REPRESENTATIVE, AERIAL PHOTOGRAPHER Unavailable +[phone] Dayo Chaney MD Unavailable Juanita Hauser RN Unavailable UnavailDavid Alexandre MD Unavailable Emilia Tang MD Primary Care Provider [phone] Maurilio Farley MD Unavailable Physician, Candida Davis MD Unavailable Rebeka Trinidad MD Primary Care Provider + [phone] Dom Quiñonez MD Unavailable Rachelle Nava PATIENT PORTAL REPRESENTATIVE, AIRCRAFT INSTRUMENT MECHANIC Unavailable + [phone] Irais Naylor PATIENT PORTAL REPRESENTATIVE, AERIAL PHOTOGRAPHER Unavailable + [phone] Lorri Leo PATIENT PORTAL REPRESENTATIVE, AERIAL PHOTOGRAPHER Primary Care Provider [phone] Rebeka Trinidad MD Primary Care Provider + [phone] AhmetLorri Annetta PATIENT PORTAL REPRESENTATIVE, [facility] Primary Care Provider + [phone] Sharri Gaspar MD Unavailable Kalyan Tani B [facility] Primary Care Provider [phone] Amber Aldrich APRN, [facility] Unavailable Reason for Visit * Reason Comments Medication Refill Encounter Details Date Type Department Care Team (Late st Contact Info) Description 05/18/2022 Refill [facility] - [facility]ocrinology - [place] [address] [place] [address] David Salmon MD #[address] [address] Medication Refill Social History Tobacco Use Types Packs/Day Years Used Date Smoking Tobacco: Former Cigarettes 0.5 15 0 04/12/2006 - 04/12/2021 Smokeless Tobacco: Never Alcohol Use Standard Drinks/Week Comments Not Currently 0 (1 standard drink = 0.6 oz pur e alcohol) last drank 2 years ago PHQ-2 Answer Date Recorded Total Score - Questions 1-9 24 11/10/2021 Sexually Active Control Partners Comments Not Currently Comments No Sex and Gender Information Value Date Recorded Sex Assigned at Female 10/21/2022 4:24 PM CDT Legal Sex Female 10:38 PM CDT Gender Identity Female 10/21/2022 4:24 PM CDT Sexual Orientation Not on file 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 Unable to assess 05/01/2022 2:58 PM ZONE MANAGER documented as of this encounter Miscellaneous Notes * Telephone Encounter - Yesi Leggett RN - 05/20/2022 8:26 AM CDT Requested Prescriptions Pending Prescriptions Disp Refills ??? Lancets (OneTouch Delica Plus [id number]) Misc [Pharmacy Med Name: ONE TOUCH DELICA PLUS 33G LANCETS] 200 Each Sig: USE TO TEST BLOOD GLUCOSE TWICE DAILY Next appt: 07/30/2022 documented in this encounter Plan of Treatment Upcoming Encounters Date Type Department Care Team (Late st Contact Info) Description 09/21/2024 3:20 PM CDT [facility] [address] [place] [address] Melony Asif, PAC [address] [place] [address] Discharge Disposition: Discharged to home or Selfcare 10/18/2024 1:00 PM CDT [facility] - Pulmonology & Sleep Medicine [facility] [address] [place] [address] Dom Quiñonez MD [address] [place] [address] 10/26/2024 1:00 PM CDT Office Visit [facility] - Cardiology - [place] #[address] [place] [address] Amber Aldrich, PATIENT PORTAL REPRESENTATIVE, AERIAL PHOTOGRAPHER [address] [place] [address] 11/09/2024 2:00 PM CDT Telemedicine [facility] [address] [place] [address] Alize Acosta, PATIENT PORTAL REPRESENTATIVE, AERIAL PHOTOGRAPHER [address] [place] [address] 11/18/2024 3:45 PM CDT Office Visit [facility] - Endocrinology - [place] #[address] [place] [address] David Salmon MD #[address] [address] 03/04/2025 3:10 PM ZONE MANAGER Lab [facility] [address] [place] [address] [facility], [facility] 03/04/2025 3:30 PM ZONE MANAGER Office Visit [facility] [place] [address] [place] [address] Tani Biggs PAC [address] [place] [address] documented as of this encounter [...] as recommended. Depression Depression Improving( 2:27 PM ZONE MANAGER) No Breanne Saldana LCSW Note: Goal/Objective: Decrease symptoms of depression associated with grief and loss as well as the increase of anxiety and panic with follow up with out patient counseling. Anticipated Time Frame for Goal Completion: 2 week Constipation General Improving( 2:41 PM CDT) Yes Xiomy Linda RN [...] On track(2023 2:42 PM CDT) No Xiomy Linda RN [...] 19 04/18/2024 04/18/2024 04/18/2024 10:4 7 PM ZONE MANAGER Respiratory Rule-Out 05/06/2024 05/06/2024 025 9:20 AM ZONE MANAGER COVID - 19 05/06/2024 05/06/2024 05/06/2024 9:19 AM ZONE MANAGER Assessment Noted Time PHQ-9 Depression Total Score: 24 022 3:31 PM ZONE MANAGER documented as of this encounter Care Teams Ammonium Sulfate Operator Relationship Specialty Start Date End Date Jackeline Dimas, PATIENT PORTAL REPRESENTATIVE, AERIAL PHOTOGRAPHER [address] [place] [address] PCP - General Advanced Practice Nurse 07/31/17 Emilia Tang MD [address] [place] [address] PCP - General Family Medicine 06/07/22 03/25/23 Rebeka Trinidad MD [address] [place] [address] PCP - General Family Medicine 03/26/23 03/29/24 Lorri Leo APRN, AERIAL PHOTOGRAPHER [address] [place] [address] PCP - General Certified Nurse Practitioner 03/30/24 04/20/24 Rebeka Trinidad MD [address] [place] [address] PCP - General Family Medicine 04/21/24 04/21/24 Lorri Leo APRN, AERIAL PHOTOGRAPHER [address] [place] [address] PCP - General Certified Nurse Practitioner 04/22/24 05/30/24 Tani Biggs PAC [address] [place] [address] PCP - General Physician Brasswind Instrument Repairer 05/31/24 Phil Jacobo MD #[address] [place] [address] Consulting Physician Neurology 03/07/21 Rajiv Mccormack, SPUD DRILLER [address] [place] [address] Nurse Practitioner Gastroenterology 03/07/21 Alize Acosta APRN, AERIAL PHOTOGRAPHER [address] [facility] [place] [address] Virtual Advanced Care (VAC) SLICE PLUG CUTTER OPERATOR HELPER Advanced Practice Nurse 08/30/21 Dayo Chaney MD [address] [place] [address] Guest Experience Representative Cardiovascular Disease - Cardiology 09/20/21 02/12/24 Juanita Mercado, [place] Registered Nurse Cardiology 12/24/21 02/12/24 David Salmon MD #[address] [address] Consulting Physician Endocrinology 01/15/22 Maurilio Farley MD #[address] [address] Consulting Physician Colon and Rectal Surgery 09/20/22 Physician, Candida Davis MD [address] [place] [address] Family Medicine 01/25/22 03/18/23 Dom Quiñonez MD #[address] [place] [address] Consulting Physician Pulmonary Disease 11/19/21 Rachelle Nava APRN, AIRCRAFT INSTRUMENT MECHANIC #[address] [place] [address] Nurse Practitioner Advanced Practice Nurse 07/19/22 Irais Naylor APRN, AERIAL PHOTOGRAPHER #[address] [address] Nurse Practitioner Cardiology 06/27/23 07/29/24 Sharri Gaspar MD [address] [address] Consulting Physician Cardiology 04/26/24 Amber lAdrich APRN, AERIAL PHOTOGRAPHER #[address] [place] [address] Nurse Practitioner Cardiology 07/30/24 documented as of this encounter
--- OUTSIDE RECORDS SUMMARY | 2024-09-20 12:00 | XMS_ITS | Encounter Summary ---
Author Organization [facility] Address [address] [place] [address] Phone Care Team Providers Care Admissions Specialist Name Role Phone Jackeline Dimas GROCERY SACKER, FINANCIAL MANAGEMENT ANALYST Primary Care Provider Phil Jacobo MD Unavailable [phone] Rajiv Mccormack NP Unavailable Unavailable Alize Acosta GROCERY SACKER, FINANCIAL MANAGEMENT ANALYST Unavailable [phone] Dayo Chaney MD Unavailable Juanita Hauser RN Unavailable UnavailDavid Alexandre MD Unavailable Emilia Tang MD Primary Care Provider [phone] Maurilio Farley MD Unavailable Physician, Candida Davis MD Unavailable Rebeka Trinidad MD Primary Care Provider + [phone] Dom Quiñonez MD Unavailable Rachelle Nava GROCERY SACKER, COMMAND AND CONTROL Unavailable + [phone] Irais Naylor GROCERY SACKER, FINANCIAL MANAGEMENT ANALYST Unavailable + [phone] Lorri Leo GROCERY SACKER, FINANCIAL MANAGEMENT ANALYST Primary Care Provider [phone] Rebeka Trinidad MD Primary Care Provider + [phone] Ahmet Lorri Annetta GROCERY SACKER, [facility] Primary Care Provider + [phone] Sharri Gaspar MD Unavailable Kalyan Tani B [facility] Primary Care Provider [phone] Amber Aldrich APRN, [facility] Unavailable Reason for Visit * Reason Comments Medication Refill Encounter Details Date Type Department Care Team (Late st Contact Info) Description 04/01/2022 Refill [facility] - [place] [address] [place] [address] David Salmon MD #[address] [address] Medication Refill Social History Tobacco [...] 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 No / Unsure 04/04/2022 4:01 PM ROLL MACHINE OPERATOR documented as of this encounter Miscellaneous Notes * Telephone Encounter - Yesi Leggett RN - 04/01/2022 1:19 PM ROLL MACHINE OPERATOR Requested Prescriptions Pending Prescriptions Disp Refills ??? Glucose Blood (OneTouch Verio) Strip [Pharmacy Med Name: ONE TOUCH VERIO TEST ST(NEW)100S] 200 Strip Sig: TEST BLOOD SUGAR TWICE DAILY Next appt: 04/30/2022 MACHINE OPERATOR documented in this encounter Plan of Treatment Upcoming Encounters Date Type Department Care Team (Late st Contact Info) Description 09/21/2024 3:20 PM CDT [facility] [address] [place] [address] Melony Asif, ESTRELLITA [address] [place] [address] Discharge Disposition: Discharged to home or Selfcare 10/18/2024 1:00 PM CDT [facility] - Pulmonology & [facility] [address] [place] [address] Dom Quiñonez MD [address] [place] [address] 10/26/2024 1:00 PM CDT Office Visit [facility] - Cardiology - [place] [address] [place] [address] Amber Aldrich, GROCERY SACKER, FINANCIAL MANAGEMENT ANALYST [address] [place] [address] 11/09/2024 2:00 PM CDT Telemedicine [facility] [address] [place] [address] Alize Aocsta, GROCERY SACKER, FINANCIAL MANAGEMENT ANALYST [address] [place] [address] 11/18/2024 3:45 PM CDT Office Visit [facility] - Endocrinology - [place] [address] [place] [address] David Salmon MD #[address] [phone] 03/04/2025 3:10 PM ROLL MACHINE OPERATOR Lab [facility] [place] [facility] [place] [address] [place] [address] [facility] 03/04/2025 3:30 PM ROLL MACHINE OPERATOR Office Visit [facility] [facility] [place] [address] [place] [address] Tani Biggs PAC [address] [place] [address] documented as of this encounter [...] as recommended. Depression Depression Improving( 2:27 PM ROLL MACHINE OPERATOR) No Breanne Saldana LCSW Note: Goal/Objective: Decrease [...] 19 04/18/2024 04/18/2024 04/18/2024 10:4 7 PM ROLL MACHINE OPERATOR Respiratory Rule-Out 05/06/2024 05/06/2024 025 9:20 AM ROLL MACHINE OPERATOR COVID - 19 05/06/2024 05/06/2024 05/06/2024 9:19 AM ROLL MACHINE OPERATOR Assessment Noted Time PHQ-9 Depression Total Score: 24 022 3:31 PM ROLL MACHINE OPERATOR documented as of this encounter Care Teams Admissions Specialist Relationship Specialty Start Date End Date Jackeline Dimas, GROCERY SACKER, FINANCIAL MANAGEMENT ANALYST [address] [place] [address] PCP - General Advanced Practice Nurse 07/31/17 Emilia Tang MD [address] [place] [address] PCP - General Family Medicine 06/07/22 03/25/23 Rebeka Trinidad MD [address] [place] [address] PCP - General Family Medicine 03/26/23 03/29/24 Lorri Leo APRN, FINANCIAL MANAGEMENT ANALYST [address] [place] [address] PCP - General Certified Nurse Practitioner 03/30/24 04/20/24 Rebeka Trinidad MD [address] [place] [address] PCP - General Family Medicine 04/21/24 04/21/24 Lorri Leo APRN, FINANCIAL MANAGEMENT ANALYST [address] [place] [address] PCP - General Certified Nurse Practitioner 04/22/24 05/30/24 Tani Biggs, [facility] [address] [place] [address] PCP - General Physician Chain Sales Consultant 05/31/24 Phil Jacobo MD [address] [place] [address] Consulting Physician Neurology 03/07/21 Rajiv Mccormack, KELI [address] [place] [address] Nurse Practitioner Gastroenterology 03/07/21 Alize Acosta APRN, FINANCIAL MANAGEMENT ANALYST [address] [place] [address] Virtual Advanced Care (VAC) MEDIA BUYER Advanced Practice Nurse 08/30/21 Dayo Chaney MD [address] [place] [address] Protective Signal Installer Cardiovascular Disease - Cardiology 09/20/21 02/12/24 Juanita Mercado, [place] Registered Nurse Cardiology 12/24/21 02/12/24 David Salmon MD #[address] [address] Consulting Physician Endocrinology 01/15/22 Maruilio Farley MD #[address] [address] Consulting Physician Colon and Rectal Surgery 09/20/22 Physician, Candida Davis MD [address] [place] [address] Family Medicine 01/25/22 03/18/23 Dom Quiñonez MD #[address] [place] [address] Consulting Physician Pulmonary Disease 11/19/21 Rachelle Nava APRN, COMMAND AND CONTROL [address] [place] [address] Nurse Practitioner Advanced Practice Nurse 07/19/22 Irais Naylor APRN, FINANCIAL MANAGEMENT ANALYST #[address] [address] Nurse Practitioner Cardiology 06/27/23 07/29/24 Sharri Gaspar MD [address] [address] Consulting Physician Cardiology 04/26/24 Amber Aldrich APRN, FINANCIAL MANAGEMENT ANALYST [address] [place] [address] Nurse Practitioner Cardiology 07/30/24 documented as of this encounter
--- OUTSIDE RECORDS SUMMARY | 2024-09-20 12:00 | XMS_ITS | Clinical Summary ---
Author Organization [facility] Address [address] [place] [address] Phone Care Team Providers Care Scraper Tender Name Role Phone Phil Jacobo MD Unavailable [phone] Rajiv Mccormack HEALTH PROMOTION SPECIALIST Unavailable Unavailable Alize Acosta APRN, WINE CELLAR STOCK CLERK Unavailable [phone] David Salmon MD Unavailable Maurilio Farley MD Unavailable Dom Quiñonez MD Unavailable Rachelle Nava LANDSCAPE DRAFTER, POT FIRER Unavailable + [phone] Sharri Gaspar MD Unavailable Tani Biggs PAC Primary Care Provider Amber Aldrich LANDSCAPE DRAFTER, WINE CELLAR STOCK CLERK Unavailable Allergies Active Allergy Reactions Criticality Noted Date Comments Jony Itching,Other (see Comments) Low 02/24/2024 Sneezing Bee Venom Swelling Medium 2022 Cephalexin Itching Low 04/30/2022 Patient denies swelling Patient denies swelling Patient denies swelling Patient denies swelling Patient denies swelling Hanson Swelling,Rash High 03/21/2020 Duloxetine Other (see Comments) Low 10/25/2022 Meclizine Hcl Swelling Medium 12/12/2020 Nsaids Other (see Comments) 12/15/2021 Pt states GI doctor said she cant have them due to gastritis. Other-Environmental Allergen (Not Found In Search) Other (see Comments) 05/09/2023 Dogs and Cats Other-Food Allergen (Not Found In Search) Anaphylaxis Medium 01/12/2021 Mountain Dew Shrimp Extract Other (see Comments) Low 2022 Tongue tingling Tongue tingling Tongue tingling Ketorolac Tromethamine Rash Medium 12/07/2020 Phenylephrine-Acetamino phen Hives Medium 03/07/2022 Medications docusate sodium 100 MG Capsule Take 1-2 pills every evening for management of chronic constipation Active famotidine (PEPCID) 40 MG Tablet Take 40 mg by mouth every morning. 022 Active polyethylene glycol (GLYCOLAX) 17 GM/SCOOP Powder Take 17 g by mouth daily as needed for Constipation - 1st line. 022 Active Vitamin D, Cholecalciferol, 25 MCG (1000 UT) Capsule Take 1 Capsule by mouth daily. Active TRUEplus 5-Bevel Pen Levering 32G X 4 MM Misc USE DAILY DIRECTED. 100 Each 1 023 Active aspirin EC 81 MG Tablet Delayed Response Aspirin Adult Low Dose 81 MG Oral Tablet Delayed Release QTY: 0 tablet Days: 0 Refills: 0 Written: 11/26/22 Patient Instructions: 023 Active insulin glargine (Lantus SoloStar) 100 UNIT/ML Solution Pen-injector 25 Units by Subcutaneous route daily as needed for Other (elevated glucose when on steroids). Active Multiple Vitamin (MULTI-VITAMIN PO) Take by mouth daily. Active Fluticasone-Salme terol (Advair HFA) 230-21 MCG/ACT Aerosol take 1 Puff by inhalation in the morning and at bedtime. 36 g 3 024 Active montelukast (SINGULAIR) 10 MG Tablet Take 1 Tablet by mouth every evening. 90 Tablet 3 024 Active azelastine (ASTELIN) 0.1 % SolutionIndicatio ns:Chronic pansinusitis 2 Sprays by Nasal route 2 times daily. 30 mL 6 024 Active lubiprostone (AMITIZA) 24 MCG Capsule Take 24 mcg by mouth 2 times daily (with meals). Active ipratropium (ATROVENT) 0.02 % Solution INHALE THE CONTENTS OF 1 VIAL VIA NEBULIZER EVERY 6 HOURS NEEDED FOR WHEEZING. 900 mL 024 Active Ascorbic Acid (VITAMIN C PO) Take by mouth daily. Active tamsulosin (FLOMAX) 0.4 MG CapsuleIndication s:Obstruction of right ureteropelvic junction (UPJ) due to stone TAKE 1 CAPSULE EVERY DAY 90 Capsule 3 Active Accu-Chek Softclix Lancets MiscIndications:T ype 2 diabetes mellitus with hyperglycemia, without long-term current use of insulin ([facility]) 1 Lancet by Does not apply route in the morning and at bedtime. Test blood glucose 2x daily, E11.65, insulin dependent 200 Each 3 Active Glucose Blood (Accu-Chek Guide) StripIndications: Type 2 diabetes mellitus with hyperglycemia, without long-term current use of insulin ([facility]) Test blood glucose 2x daily. E11.65, insulin dependent 200 Strip 3 Active cetirizine-pseudo ephedrine (ZYRTEC-D) 5-120 MG TABLET SR 12 HR Take 1 Tablet by mouth 2 times daily. Active naloxone HCl (Narcan) 4 MG/0.1ML Liquid 1 Quinby by Nasal route as needed for Opioid Reversal. Administer in one nostril for symptoms of overdose (severe sleepiness, breathing problems, not responsive). Call 911. May repeat 1 spray in alternate nostril in 2-3 minutes if needed. 2 Each Active metoprolol Succinate (TOPROL-XL) 25 MG TABLET SR 24 HR Take 1 Tablet by mouth daily. 90 Tablet 3 Active spironolactone (ALDACTONE) 25 MG Tablet Take 0.5 Tablets by mouth daily. 90 Tablet 3 025 Active atorvastatin (LIPITOR) 80 MG TabletIndications :Hyperlipidemia, unspecified hyperlipidemia type Take 1 Tablet by mouth daily. 90 Tablet 3 025 Active Emgality 120 MG/ML Solution Auto-injector INJECT THE CONTENTS OF 1 PEN UNDER THE SKIN ONE TIME MONTHLY 3 mL 3 025 Active metoclopramide (REGLAN) 10 MG Tablet Take 10 mg by mouth every 6 hours as needed for Nausea - 1st line. 025 Active buPROPion (WELLBUTRIN) 75 MG TabletIndications :Encounter for smoking cessation counseling TAKE 1 TABLET BY MOUTH TWICE DAILY AFTER BREAKFAST AND LUNCH 180 Tablet 025 Active pantoprazole (PROTONIX) 40 MG Tablet Delayed Response TAKE 1 TABLET BY MOUTH DAILY 30 Tablet 2 025 Active Blood Glucose Monitoring Suppl (Accu-Chek Guide) w/Device KitIndications:Ty pe 2 diabetes mellitus with hyperglycemia, without long-term current use of insulin (HCC) 1 Kit by Does not apply route 2 times daily. Test blood glucose 2x daily. E11.65, insulin dependent 1 Kit 3 025 Active albuterol 108 (90 Base) MCG/ACT Aerosol SolutionIndicatio ns:Subcutaneous emphysema resulting from a procedure, subsequent encounter INHALE 2 PUFFS EVERY 4 HOURS NEEDED FOR COUGH OR WHEEZING. 18 g 1 025 Active DULoxetine (CYMBALTA) [address] ParticlesIndicati ons:MDD (major depressive disorder), recurrent episode, moderate ([facility]) Take 1 Capsule by mouth daily. 90 Capsule 025 Active EPINEPHrine (EPIPEN) 0.3 MG/0.3ML Solution Auto-injectorIndi cations:Anaphylax is, subsequent encounter 0.3 mL by Intramuscular route once as needed for Anaphylaxis for up to 16 doses. 1.2 mL 3 025 Active glimepiride (AMARYL) 2 MG Tablet Take 1 Tablet by mouth every morning. 90 Tablet 1 025 Active ondansetron (ZOFRAN-ODT) 4 MG TABLET DISPERSIBLE Take 1 Tablet by mouth every 8 hours as needed for Nausea - 1st line. 10 Tablet 025 Active empagliflozin (Jardiance) 25 MG Tablet Take 1 Tablet by mouth daily. 100 Tablet 1 025 Active Tirzepatide (Mounjaro) 12.5 MG/0.5ML Solution Auto-injector 12.5 mg by Subcutaneous route once a week. 6 mL 025 Active allopurinol (ZYLOPRIM) 100 MG TabletIndications :Hyperuricemia TAKE 1 TABLET BY MOUTH DAILY 90 Tablet 025 Active allopurinol (ZYLOPRIM) 100 MG TabletIndications :Hyperuricemia Take 1 Tablet by mouth daily for 360 days. 90 Tablet 3 025 2024 Discontinued traMADol (ULTRAM) 50 MG TabletIndications :Osteoarthritis of right hand, unspecified osteoarthritis type Take 1 Tablet by mouth every 6 hours as needed for Severe pain. 10 Tablet 025 2024 Discontinued(T herapy completed) predniSONE (DELTASONE) 20 MG Tablet Take 2 Tablets by mouth daily for 5 days. 10 Tablet 025 2024 empagliflozin (Jardiance) 25 MG Tablet TAKE 1 TABLET BY MOUTH DAILY 100 Tablet 1 025 2024 Discontinued(R eorder) Tirzepatide (Mounjaro) 15 MG/0.5ML Solution Auto-injector 15 mg by Subcutaneous route once a week. 6 mL 1 025 2024 Discontinued(R eorder) Tirzepatide (Mounjaro) 15 MG/0.5ML Solution Auto-injector 15 mg by Subcutaneous route once a week. 6 mL 1 025 2024 Discontinued(R eorder) Tirzepatide (Mounjaro) 15 MG/0.5ML Solution Auto-injector 15 mg by Subcutaneous route once a week. 6 mL 1 025 2024 Discontinued(R eorder) Tirzepatide (Mounjaro) 15 MG/0.5ML Solution Auto-injector 15 mg by Subcutaneous route once a week. 6 mL 1 025 2024 Discontinued(D ose adjustment) Tirzepatide (Mounjaro) 12.5 MG/0.5ML Solution Auto-injector 12.5 mg by Subcutaneous route once a week. 6 mL 025 2024 Discontinued(R eorder) Active Problems Problem Noted Date Diagnosed Date MDD (major depressive disord er), recurrent episode, moderate 05/11/2024 JASKARAN (generalized anxiety disorder) 05/11/2024 Cardiomyopathy 04/23/2024 Hyperlipidemia 04/23/2024 Heart failure with mid-range ejection fraction ( HFmEF) 04/23/2024 PAD (peripheral artery disease) 04/23/2024 Beta thalassemia trait 01/12/2024 Cancer of kidney 10/06/2023 Overview (04/05/2024): 03/27/23: NC. Renal lesion. CT + MRI () - right kidney mass ([facility] in [place]). Creatinine 1.1. Hx of post-menopausal bleeding s/p endometrial bx. Hx of HTN, CHF, GERD, erosive gastritis, gastroparesis, constipation. 04/28/23: RP. S/p R robotic nephrectomy (04/15/23) [upper pole heminephrectomy, 37 min clamp time]; path - pT1b, ccRCC, margins negative. Post-operative course c/b bleeding, pain control. Plan - pain mgmt, 3m surveillance imaging (CXR, CT A w/). 10/06/23: RP. Imaging. Surveillance Schedule: History of kidney cancer 10/06/2023 Overview (04/05/2024): 03/27/23: NC. Renal lesion. CT + MRI () - right kidney mass ([facility] in [place]). Creatinine 1.1. Hx of post-menopausal bleeding s/p endometrial bx. Hx of HTN, CHF, GERD, erosive gastritis, gastroparesis, constipation. 04/28/23: RP. S/p R robotic nephrectomy (04/15/23) [upper pole heminephrectomy, 37 min clamp time]; path - pT1b, ccRCC, margins negative. Post-operative course c/b bleeding, pain control. Plan - pain mgmt, 3m surveillance imaging (CXR, CT A w/). 10/06/23: RP. Imaging. Surveillance Schedule: Lupus 03/27/2023 Hyperparathyroidism 03/27/2023 Migraine 07/29/2022 Internal hemorrhoids 04/25/2022 02/17/2023 Asthma 09/05/2021 Erosive gastritis with hemorrhage 05/23/2021 Gastroparesis 05/23/2021 Chronic superficial gastritis without bleeding 0 03/27/2021 Hypercalcemia 03/27/2021 Chronic right-sided low back pain with right-damir ed sciatica 02/28/2021 Irritable bowel syndrome with constipation 01/25 Gastroesophageal reflux disease 01/25/2021 Non morbid obesity 05/14/2018 EDDI (obstructive sleep apnea) 05/14/2018 Chronic combined systolic an d diastolic CHF (congestive heart failure) 11/06/2017 Diverticulosis 11/06/2017 Neuropathy 07/16/2017 Hypertension, essential 07/16/2017 Type 2 diabetes mellitus wit hout complication, without long-term current use of insulin 07/16/2017 Microcytic anemia 07/16/2017 Resolved Problems Problem Noted Date Diagnosed Date Resolved Date ALT (SGPT) level raised 03/27/2021 0611/2021 Bloating 01/25/2021 2024 Neck swelling 01/25/2021 09/05/2021 Nausea and vomiting 01/25/2021 06/01/19 Tobacco use disorder 05/14/2018 022 Precordial pain 07/16/2017 2024 Elevated liver enzymes 07/16/201709/05 Epigastric pain 07/16/2017 2024 Non-intractable vomiting with nausea 07/16/2017 2024 Type 2 diabetes mellitus wit h hyperglycemia, without long-term current use of insulin 07/16/2017 2024 Encounters Date Type Department Care Team Description 09/16/2024 Results Follow-Up [facility] [address] [place] [address] Melony Asif Stacey, PAC VITAMIN B12, FERRITIN, IRON,TRANSFERN,CALC. TIBC,%SAT, Additional followed-up results: 4 09/13/2024 10:30 AM CDT Lab [facility] [address] [place] [address] Melony Asif Stacey, PAC Anemia, unspecified type Discharge Disposition: Discharged to home or Selfcare 09/13/2024 Travel 09/06/2024 Travel 09/03/2024 11:00 AM CDT - 09/03/2024 11:59 PM CDT Hospital Encounter [facility] Ul[facility] [address] [facility] [place] [address] Tani Biggs, ESTRELLITA Discharge Disposition: Discharged to home or Selfcare 09/03/2024 Results Follow-Up [facility] [address] [place] [address] Tani Biggs, PAC US LEFT DUPLEX LOWER EXTREMITY VEINS 09/03/2024 Travel 09/03/2024 Telephone [facility] Central Call Center [address] [place] [phone] Tani Biggs, PAC Results 09/01/2024 4:00 PM CDT Office Visit [facility] [place] [place] [address] Tani Biggs, PAC Pain of left lower leg (Primary Dx); Chronic combined systolic and diastolic CHF (congestive heart failure) (HCC); Hypertension, essential; Hyperlipidemia, unspecified hyperlipidemia type; Type 2 diabetes mellitus without complication, without long-term current use of insulin; Chronic right-sided low back pain with right-sided sciatica Discharge Disposition: Discharged to home or Selfcare 09/01/2024 3:10 PM CDT Lab [facility] [place] [place] [phone] [address] [place] [facility] Chronic combined systolic and diastolic CHF (congestive heart failure) (HCC); Hypertension, essential; Type 2 diabetes mellitus without complication, without long-term current use of insulin; Hyperparathyroidism (HCC); Hyperlipidemia, unspecified hyperlipidemia type Discharge Disposition: Discharged to home or Selfcare 08/31/[address] [facility] [place] [address] [place] [phone] Lorri Leo APRN, WINE CELLAR STOCK CLERK Medication Refill 08/31/2024 Refill [facility] [address] [place] [address] David Salmon MD Medication Refill 08/30/2024 Telephone [facility] [address] [address] Cecilia Aguila, RN Patient Outreach ([facility] Every 2 Week Scheduled Call/) 08/30/2024 Travel 08/29/2024 Telephone [facility] [address] [address] Jodee Montoya, RN Weight Gain 08/27/2024 [facility] [place] [address] [place] [address] Tani Biggs, PAC 08/24/2024 [facility] [place] [address] [place] [address] David Salmon MD Medication Renewal Reviewed 08/23/2024 Travel 08/22/2024 [facility] [address] [place] [address] David Salmon MD Medication Renewal Reviewed 08/20/2024 Patient Outreach [facility] [address] [address] Patricia Dimas lab animal technician of Care 08/18/2024 9:17 PM CDT - 08/19/2024 12:57 AM CDT [facility] [address] [place] [phone] Zacarias Arellano MD Nausea and vomiting, unspecified vomiting type Discharge Disposition: Discharged to home or Selfcare 08/18/2024 Travel 08/18/2024 [facility] [place] [address] [place] [address] David Salmon MD Medication Refill 08/18/2024 MyChart RX Renewal [facility] [address] [place] [address] David Salmon MD Medication Renewal Declined 08/18/2024 Patient Outreach [address] [address] Patricia Dimas RN Transition of Care 08/17/2024 4:28 PM CDT - 08/17/2024 6:37 PM CDT Emergency [facility] Emergency [address] [place] [address] Donna Frost APRN, LIDA Osteoarthritis of right hand, unspecified osteoarthritis type Discharge Disposition: Discharged to home or Selfcare 08/17/2024 3:45 PM CDT Office Visit [facility] [address] [place] [address] David Salmon MD Type 2 diabetes mellitus with hyperglycemia, without long-term current use of insulin (HCC) (Primary Dx); New medication added; Medication dose changed; Overweight Discharge Disposition: Discharged to home or Selfcare 08/17/2024 Travel 08/16/[address] [address] Ayla Conte, RN Patient Outreach ([facility] Intentional Call) 08/15/2024 Travel 08/04/2024 [facility] [place] [address] [place] [phone] Tani Biggs, ESTRELLITA Medication Refill 08/03/2024 Refill [facility] [address] [place] [phone] David Salmon MD Medication Refill 07/27/2024 2:30 PM CDT Telemedicine [address] [address] Alize Acosta APRN, WINE CELLAR STOCK CLERK Hypertension, essential (Primary Dx); Chronic combined systolic and diastolic CHF (congestive heart failure) (HCC); Type 2 diabetes mellitus without complication, without long-term current use of insulin Discharge Disposition: Discharged to home or Selfcare 07/27/2024 Telephone [facility] Endocrinology - [place] [address] [place] [address] David Salmon MD Medication Management 07/27/2024 Documentation Only [address] [address] Alize Acosta APRN, CNP 07/26/2024 Travel 07/26/2024 Refill [facility] Endocrinology - [place] [address] [place] [address] David Salmon MD Medication Refill 07/23/2024 Refill [facility] [address] [place] [address] David Salmon MD Medication Refill 07/20/2024 3:30 PM CDT Telemedicine [address] [address] Alize Acosta APRN, CNP Hypertension, essential (Primary Dx); Chronic combined systolic and diastolic CHF (congestive heart failure) (HCC); Type 2 diabetes mellitus without complication, without long-term current use of insulin Discharge Disposition: Discharged to home or Selfcare 07/20/2024 11:00 AM CDT Office Visit [facility] Cardiology [facility] [address] [place] [address] Amber Aldrich APRN, CNP Palpitations (Primary Dx); Hypertension, essential; Chronic combined systolic and diastolic CHF (congestive heart failure) (HCC); Hyperlipidemia, unspecified hyperlipidemia type; Type 2 diabetes mellitus without complication, without long-term current use of insulin; EDDI (obstructive sleep apnea) Discharge Disposition: Discharged to home or Selfcare 07/20/2024 Results Follow-Up [facility] Cardiology - [place] [address] [place] [address] Amber Aldrich APRN, WINE CELLAR STOCK CLERK THYROID STIMULATING HORMONE (TSH), THYROXINE (T4) FREE, MAGNESIUM (MG), Additional followed-up results: 2 07/20/2024 Travel 07/14/2024 MyChart RX Renewal [facility] Endocrinology - [place] [address] [place] [phone] David Salmon MD Medication Renewal Reviewed 07/13/2024 3:00 PM CDT Telemedicine [facility] [address] [place] [phone] Ariela Hurtado, ONLINE USER EXPERIENCE STRATEGIST MDD (major depressive disorder), recurrent episode, moderate (HCC) (Primary Dx) Discharge Disposition: Discharged to home or Selfcare 07/11/2024 Travel 07/07/2024 1:45 PM CDT Office Visit [facility] [place] [address] [place] [address] Tani Biggs, PAC MDD (major depressive disorder), recurrent episode, moderate (HCC) (Primary Dx); Spinal stenosis of lumbar region with neurogenic claudication; Cervicalgia; Anaphylaxis, subsequent encounter Discharge Disposition: Discharged to home or Selfcare 07/07/2024 Telephone [facility] [place] [address] [place] [address] Tani Biggs PAC Medication Management 07/07/2024 Travel 07/06/2024 Telephone [facility] [address] [place] [address] Ayla Conte, RN Depression (PHQ9 survey elevated) 07/05/2024 MyChart RX Renewal [facility] [address] Tani Biggs, PAC Medication Renewal Reviewed 07/05/2024 Telephone [facility] [address] [address] Ayla Conte, RN Patient Outreach ([facility] Intentional Call) 07/03/2024 6:35 AM CDT - 07/03/2024 11:59 PM CDT Hospital Encounter [facility] MRI [address] [place] [phone] Tani Biggs, PAC Discharge Disposition: Discharged to home or Selfcare 07/02/2024 Refill [facility] [address] [place] [address] David Salmon MD Medication Refill 07/01/2024 Travel 06/29/2024 Telephone [facility] [address] [place] [phone] Maritza Vanegas, SEBASTIAN CH Scale ([facility] /) 06/29/2024 [facility] [address] [phone] Hue Balbuena, SEBASTIAN Smoking Cessation 06/23/2024 Patient Outreach [facility] [address] [address] Len Martino RN Social Concerns (Calling pt. To schedule appointment for new equipment set up.) 06/23/2024 Nurse Triage [facility] [address] [address] Patricia Dimas RN Weight Gain 06/21/2024 Telephone [facility] [address] [place] [phone] Jaylyn Mosqueda RN Patient Outreach ([facility] Scheduled Call/) 06/21/2024 Telephone [facility] Weight Management [address] [place] [address] Hue Balbuena RN Smoking Cessation from Last 3 Months Immunizations Immunization Administration Dates Next Due Influenza Vaccine greater than 3 yrs 12/23/2019 Influenza Vaccine, Quadrivalent, PF 11/,11/13/2021,11/30/2020,12/15 Influenza, Seasonal, Injecta ble, Undefined 12/23/2019 Pneumococcal Vaccine Adult - 23 Valent Pneumococcal conjugate PCV20 , polysaccharide [id number] conjugate, adjuvant, PF 06/07/2022 TDAP Vaccine 06/07/2022 Zoster Vaccine Recombinant 07/13/2022 Family History Medical History Relation Name Comments No Known Problems Brother 1 No Known Problems Brother 2 No Known Problems Brother 3 Heart Disease Father Hypertension Father No Known Problems Maternal Grandfather No Known Problems Maternal Grandmother Diabetes Mother Hypertension Mother No Known Problems Paternal Grandfather No Known Problems Paternal Grandmother Diabetes Sister 1 Hypertension Sister 1 Diabetes Sister 2 Hypertension Sister 2 Hypertension Sister 3 No Known Problems Sister 4 Relation Name Status Comments Brother 1 Brother 2 Alive Brother 3 Alive Father Maternal Grandfather Maternal Grandmother Mother Paternal Grandfather Paternal Grandmother Sister 1 Sister 2 Alive Sister 3 Alive Sister 4 Alive Social History Tobacco Use Types Packs/Day Years Used Date Smoking Tobacco: Some Days Cigarettes 1 37.1 Started: 1984; Last attempted to quit: 04/12/2021 Passive Smoke Exposure: Never Smokeless Tobacco: Never Tobacco Cessation:Ready to Q uit: Not Asked; Counseling Given: Not Answered Alcohol Use Standard Drinks/Week Comments Not Currently 0 (1 standard drink = 0.6 oz pur e alcohol) Last drink in 2020 [facility] Utilities Answer Date Recorded In the past 12 months has e Borqs, gas, oil, or water K121 threatened to shut off services in your home? No 03/22/2024 Social Connection and Isolation Panel Answer Date Recorded In a typical week, how many times do you talk on the phone with family, friends, or neighbors? Once a week 03/22/19 How often do you get togethe r with friends or relatives? Never 03/22/2024 How often do you attend chur ch or bahai services? 1 to 4 times per year 03/22/2024 Do you belong to any clubs o r organizations such as jehovah's witness groups, unions, fraternal or athletic groups, or [...] Total Score - Questions 1-9 19 08/09 [facility] - Occupational Stress Questionnaire Answer Date Recorded [...] money to buy more. Often true 03/22/19 Within the past 12 months, t he [...] place to sleep or slept in a mcc (including now)? No 03/24/2023 Housing Stability Vital Sign Answer Jovany e Recorded In the last 12 months, was t here a time when you were not able to pay the mortgage or rent on time? Yes 03/22/2024 In the past 12 months, how m any times have you moved where you were living? 0 03/22/2024 At any time in the past [address] [facility], were you homeless or living in a mcc (including now)? No 03/22/2024 Education Answer Date [...] Industry Job Start Date Job End Date [employer] Not on file Not on file Not on file Last Filed Vital Signs Vital Sign Reading Time Taken Comments Blood Pressure 120/70 09/01/2024 3:54 PM CDT Pulse 82 09/01/2024 3:54 PM CDT Temperature 36.4 C (97.5 F) 09/01/2024 3:54 PM CDT Respiratory Rate 18 09/01/2024 3:54 PM CDT Oxygen Saturation 97% 09/01/2024 3:54 PM CDT Inhaled Oxygen Concentration - - Weight 76.3 kg (168 lb 3.2 oz) 09/01/2024 3:54 P M CDT Height 160 cm (5' 3) 09/01/2024 3:54 PM CDT Body Mass Index 29.8 09/01/2024 3:54 PM CDT Plan of Treatment Upcoming Encounters Date Type Department Care Team (Late st Contact Info) Description 09/21/2024 3:20 PM CDT [facility] [address] [place] [address] Melony Asif, PAC [address] [place] [address] Discharge Disposition: Discharged to home or Selfcare 10/18/2024 1:00 PM CDT [facility] - Pul[facility]ology & [facility] Medicine - [address] [place] [address] Dom Quiñonez MD [address] [place] [address] 10/26/2024 1:00 PM CDT Office Visit [facility] - Cardiology - [address] [place] [address] Amber Aldrich LANDSCAPE DRAFTER, WINE CELLAR STOCK CLERK [address] [place] [address] 11/09/2024 2:00 PM CDT Telemedicine [facility] [address] [place] [address] Alize Acosta, LANDSCAPE DRAFTER, WINE CELLAR STOCK CLERK [address] [place] [address] 11/18/2024 3:45 PM CDT Office Visit [facility] - Endocrinology - [address] [place] [address] David Salmon MD [address] [address] 03/04/2025 3:10 PM MANAGER ENGLISH Lab [facility] [place] [address] [facility] 03/04/2025 3:30 PM MANAGER ENGLISH [facility] [place] [address] Tani Biggs, PAC [address] [place] [address] Health Maintenance Due Date Last Done Comments Meningococcal Immunization (ACWY) (1 - Risk 2-dose series) 06/01/1971 HPV/Cotest 06/01/1999 Cologuard 2014 Immunochemical Fecal Occult Blood 2014 Zoster Immunization (2 of 2) 09/07/2022 07/13/2022 Mammogram 06/20/2023 06/19/2022, 02/16/2020 Cervical Cancer Screening (CCS) 09/26/2024 Pap Smear 09/26/2024 09/26/2021, 03/29/2020 Lung Cancer Screening 10/21/2024 10/22/2023 , 10/22/2023, 06/18/2023 Influenza Immunization (#1) 11/08/202401/10, 11/13/2021, 11/30/2020, Additional history exists Diabetes: Foot Exam 11/13/2024 11/14/2023, 10/30/2022, 06/07/2022 Diabetes: Eye Exam 11/30/2024 12/01/2023, 0 10/19/2021, 10/09/2021 Diabetes: Hemoglobin A1c 02/16/2025 025, 01/25/2024, 11/14/2023, Additional history exists Diabetes: Nephropathy Screening 09/13/2025 09/13/2024, 08/18/2024, 07/20/2024, Additional history exists Colonoscopy 10/30/2027 10/29/2017, 10/29/2017 Colorectal Cancer Screening 10/30/2027 Td Immunization Every 10 Years (Adults With 1 Tdap) 06/07/2032 06/07/2022 Respiratory Syncytial Virus (RSV) Immunization (Adult) (1 - 1-dose 75+ series) 2044 Diabetes: Celiac Disease Screening Discontinued 11/30/2020, 11/30/2020 DTaP/Tdap/Td Immunization Discontinued 06/07/2022 Pneumococcal Immunization (50+ years) Completed 06/07/2022, 05/29/2021 Pneumococcal Immunization Combined Discontinued 06/07/2022, 05/29/2021 Hepatitis C Virus (HCV) Screening Completed 08/19/2022, 09/26/2020, 07/17/2017 SARS-COV-2 Immunization Discontinued 12/18/19 23, 10/11/2022, 06/20/2022 Hepatitis B Immunization Discontinued Human Papillomavirus (HPV) Immunization Aged Out No longer eligible based on patient's age to complete this topic Rotavirus Immunization Aged Out No lo nger eligible based on patient's age to complete this topic Goals Goal Patient Goal Type Associated Problems Recent Progress Patient-Stated? Author ACTIVITY Activity No change(08/08 2:42 PM CDT) Yes Maritza Vanegas, RN Note: Bonny will walk five days a week. Goal Reviewed with: Bonny Readiness to change: Department associated with goal: [facility] Steps to achieve goal: Walking 5 days a week I want to be able to be around people and feel less depressed. Behavioral Health Worsening(0 09/22/2023 3:12 PM CDT) Yes Hilda Tinajero [facility] Note: Goal/Objective: Decrease symptoms of depression and anxiety. Anticipated Time Frame for Goal Completion: 3 months Goal Reviewed with: patient Readiness to change: Thinking about making a change Department associated with goal: [facility] Steps to achieve goal: [...] diet Depression Depression Improving(0 03/15/2022 2:27 PM MANAGER ENGLISH) No Breanne Saldana LCSW Note: Goal/Objective: Decrease [...] Ready to change Department associated with goal: [facility] Steps to achieve goal: [...] Sodium Intake On track(08/24 2:42 PM CDT) Xioym Gunderson, RN Note: Goal: I will reduce [...] are high I sodium which is salt. Medical Devices Implanted Type Area Dental Specialist Device Identifier Shelf Expiration Date Model / Serial / Lot Device Clsr 6-7fr Mynxgrip Machine Straw Hat Presser Vasc Bln Cath Lock Syr Integrate Sealant 10ml Lf Disp - [id number] Implanted:Qty : 1 on 11/07/2017 by Divina Xie MD at [facility] IMPLANT Right: [employer] 10/08/2019 [id number] / / [id number] Procedures Procedure Name Priority Date/Time Associated Diagnosis Comments CBC WITH AUTO DIFFERENTIAL Routine 09/13/2024 10:54 AM CDT Anemia, unspecified type FREE KAPPA & LAMBDA LIGHT CHAINS SERUM Routine 09/13/2024 10:54 AM CDT Anemia, unspecified type IMMUNOFIXATION W/ ELECTROPHORESIS SERUM Routine 09/13/2024 10:54 AM CDT Anemia, unspecified type CMP (COMPREHENSIVE METABOLIC PANEL) Routine 09/13/2024 10:54 AM CDT Anemia, unspecified type IRON,TRANSFERN,CALC. TIBC,%SAT Routine 09/13/2024 10:54 AM CDT Anemia, unspecified type FERRITIN Routine 09/13/2024 10:54 AM CDT Anemia, unspecified type VITAMIN B12 Routine 09/13/2024 10:54 AM CDT Anemia, unspecified type COMPLETE BLOOD COUNT (CBC) WITH DIFF Routine 09/13/2024 10:54 AM CDT Anemia, unspecified type US LEFT DUPLEX LOWER EXTREMITY VEINS Stat with Interpretation 09/03/2024 11:42 AM CDT Pain of left lower leg THYROID SCREEN WITH REFLEX Routine 09/01/2024 3:21 PM CDT Hypertension, essential CBC WITH AUTO DIFFERENTIAL Routine 09/01/2024 3:21 PM CDT Chronic combined systolic and diastolic CHF (congestive heart failure) (HCC) Hypertension, essential THYROID SCREEN WITH REFLEX Routine 09/01/2024 3:21 PM CDT Hypertension, essential LIPID PANEL Routine 09/01/2024 3:21 PM CDT Hyperlipidemia, unspecified hyperlipidemia type BASIC METABOLIC PANEL W/ CALCIUM TOTAL Routine 09/01/2024 3:21 PM CDT Chronic combined systolic and diastolic CHF (congestive heart failure) (HCC) Hypertension, essential Type 2 diabetes mellitus without complication, without long-term current use of insulin Hyperparathyroidis m (HCC) COMPLETE BLOOD COUNT (CBC) WITH DIFF Routine 09/01/2024 3:21 PM CDT Chronic combined systolic and diastolic CHF (congestive heart failure) (HCC) Hypertension, essential EXTERNAL PAIN REFERRAL Routine 08/26/2024 12:[address] ABDOMEN PELVIS W/ CONTRAST Stat with Interpretation 08/18/2024 11:51 PM CDT CBC WITH AUTO DIFFERENTIAL STAT 08/18/2024 9:35 PM CDT LIPASE STAT 08/18/2024 9:35 PM CDT MAGNESIUM (MG) STAT 08/18/2024 9:35 PM CDT CMP (COMPREHENSIVE METABOLIC PANEL) STAT 08/18/2024 9:35 PM CDT COMPLETE BLOOD COUNT (CBC) WITH DIFF STAT 08/18/2024 9:35 PM CDT XR HAND 2 VIEWS RIGHT STAT 08/17/2024 4:54 PM CDT POCT GLYCOSYLATED HEMOGLOBIN Routine 08/17/2024 3:40 PM CDT Type 2 diabetes mellitus with hyperglycemia, without long-term current use of insulin (HCC) FAMILY MEDICINE CONSULT 07/27/2024 12:00 AM CDT NEUROSURGY CONSULT 07/21/2024 12:00 AM CDT CBC WITH AUTO DIFFERENTIAL Routine 07/20/2024 11:58 AM CDT Palpitations CMP (COMPREHENSIVE METABOLIC PANEL) Routine 07/20/2024 11:58 AM CDT Palpitations COMPLETE BLOOD COUNT (CBC) WITH DIFF Routine 07/20/2024 11:58 AM CDT Palpitations MAGNESIUM (MG) Routine 07/20/2024 11:58 AM CDT Palpitations THYROXINE (T4) FREE Routine 07/20/2024 11:58 AM CDT Palpitations THYROID STIMULATING HORMONE (TSH) Routine 07/20/2024 11:58 AM CDT Palpitations MRI C-SPINE W/O CONTRAST Routine 07/03/2024 7:11 AM CDT Chronic neck pain Cervical radiculopathy HM DILATED EYE EXAM 12/01/2023 12:[address] CHEST SCREENING WO Routine 06/18/2023 12:34 PM CDT Ground glass opacity present on imaging of lung HEPATITIS C ANTIBODY Routine 08/19/2022 12:26 PM CDT Gout, unspecified cause, unspecified chronicity, unspecified site Other specified abnormal immunological findings in serum Osteoarthritis of multiple joints, unspecified osteoarthritis type Allergy, initial encounter Other specified counseling Other custodial (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 YAZAN SCREENING BILATERAL DIGITAL W CAD W ROSEANN Routine 06/19/2022 3:15 PM CDT Encounter for screening mammogram for breast cancer PATHOLOGY CYTOLOGY ECDIS N NAVIGATION OPERATOR Routine 09/26/2021 9:23 AM CDT Vaginal odor CELIAC ANTIBODY PANEL Routine 11/30/2020 8:41 AM CDT SI (sacroiliac) pain Acute bilateral low back pain with bilateral sciatica Low lying conus medullaris (HCC) from Last 3 Months or Most Recently Relevant to Health Maintenance Results * IRON,TRANSFERN,CALC.TIBC,%SAT (09/13/2024 10:54 AM CDT) Pathologist [facility] IRON 74 25 - 156 mcg/dL 09/13/2024 11:40 AM CDT [facility] TRANSFERRIN 317 180 - 382 mg/dL 09/13/2024 11:40 AM CDT [facility] TIBC, CALCULATED 396 265 - 497 mcg/dL 09/13/2024 11:40 AM CDT [facility] % SATURATION * 19 15 - 62 % 09/13/2024 11:40 AM CDT [facility] Blood Venipuncture / Unknown 09/13/2024 10:54 AM CDT 09/13/2024 10:54 AM CDT Melony Asif PAC CHEMISTRY ORDERABLES Donna correa Result [facility] [address] [place] [address] * (ABNORMAL) CBC WITH AUTO DIFFERENTIAL (09/13/2024 10:54 AM CDT) Only the most recent of4 resultswithin the time period is included. Pathologist [facility] WBC 6.81 4.00 - 12.00 10(3)/mcL 09/13/2024 11:18 AM CDT [facility] RBC 5.56(H) 3.80 - 5.30 10(6)/mcL 09/13/2024 11:18 AM CDT [facility] HEMOGLOBIN (HGB) 13.5 12.0 - 15.8 g/dL 09/13/2024 11:18 AM CDT [facility] HEMATOCRIT (HCT) 43.0 36.0 - 47.0 % 09/13/2024 11:18 AM CDT [facility] MCV 77.3(L) 82.0 - 96.0 fL 09/13/2024 11:18 AM CDT [facility] MCH 24.3(L) 26.0 - 34.0 pg 09/13/2024 11:18 AM CDT [facility] MCHC 31.4 31.0 - 36.0 g/dL 09/13/2024 11:18 AM CDT [facility] PLATELET COUNT 237 140 - 440 10(3)/mcL 09/13/2024 11:18 AM CDT [facility] RDW 18.2(H) 11.8 - 15.5 % 09/13/2024 11:18 AM CDT [facility] MPV 11.8 9.7 - 12.4 fL 09/13/2024 11:18 AM CDT [facility] NEUTROPHILS 61.8 47.0 - 73.0 % 09/13/2024 11:18 AM CDT [facility] LYMPHOCYTES 25.4 18.0 - 42.0 % 09/13/2024 11:18 AM CDT [facility] MONOCYTES 7.9 4.0 - 12.0 % 09/13/2024 11:18 AM CDT [facility] EOSINOPHILS 3.7 0.0 - 5.0 % 09/13/2024 11:18 AM CDT [facility] BASOPHILS 0.6 0.0 - 1.0 % 09/13/2024 11:18 AM CDT [facility] IMMATURE GRANULOCYTE 0.6(H) 0.0 - 0.4 % 09/13/2024 11:18 AM CDT [facility] Comment:Immature Granulocyte s includes Metamyelocytes, Myelocytes, and Promyelocytes. ABSOLUTE NEUTROPHILS 4.21 1.60 - 7.70 10(3)/mcL 09/13/2024 11:18 AM CDT [facility] ABSOLUTE LYMPHOCYTES 1.73 1.30 - 3.20 10(3)/mcL 09/13/2024 11:18 AM CDT [facility] ABSOLUTE MONOCYTES 0.54 0.20 - 1.00 10(3)/mcL 09/13/2024 11:18 AM CDT [facility] ABSOLUTE EOSINOPHIL 0.25 0.00 - 0.40 10(3)/mcL 09/13/2024 11:18 AM CDT [facility] ABSOLUTE BASOPHILS 0.04 0.00 - 0.10 10(3)/mcL 09/13/2024 11:18 AM CDT [facility] ABSOLUTE IMMATURE GRANULOCYTE 0.04(H) 0.00 - 0.03 10 (3) mcL. 09/13/2024 11:18 AM CDT [facility] NRBC PER 100 WBC 0 09/14/19 25 11:18 AM CDT [facility] Blood Venipuncture / Unknown 09/13/2024 10:54 AM CDT 09/13/2024 10:54 AM CDT Melony Asif PAC HEMATOLOGY ORDERABLES Fin al Result [facility] [address] [place] [address] * (ABNORMAL) FREE KAPPA & LAMBDA LIGHT CHAINS SERUM (09/13/2024 10:54 AM CDT) Free [place] Lt Chn 26.34(H) 3.30 - 19.40 mg/L 09/15/2024 10:19 AM CDT [facility] Free Lambda Lt Chn 28.92(H) 5.71 - 26.30 mg/L 09/15/2024 10:19 AM CDT [facility] free toan pinto ratio 0.91 0.26 - 1.65 09/15/2024 10:19 AM CDT [facility] Blood Venipuncture / Unknown 09/13/2024 10:54 AM CDT 09/13/2024 10:54 AM CDT Melony Asif PAC CHEMISTRY ORDERABLES Donna l Result [facility] [address] [place] [address], [place] * VITAMIN B12 (09/13/2024 10:54 AM CDT) VITAMIN B12 451 213 - 816 pg/mL 09/13/2024 12:02 PM CDT [facility] Blood Venipuncture / Unknown 09/13/2024 10:54 AM CDT 09/13/2024 10:54 AM CDT Melony Asif PAC CHEMISTRY ORDERABLES Donna l Result [facility] [address] [place] [address] * (ABNORMAL) IMMUNOFIXATION W/ ELECTROPHORESIS SERUM (09/13/2024 10:54 AM CDT) Pathologist [facility] TOTAL PROTEIN 7.3 6.0 - 8.0 g/dL 09/15/2024 2:01 PM CDT [facility] % ALBUMIN 51.7(L) 55.8 - 66.7 % 09/15/2024 2:01 PM CDT [facility] ALBUMIN SERUM 3.8 2.5 - 5.4 g/dL 09/15/2024 2:01 PM CDT [facility] % ALPHA 1 GLOBULIN 3.2 2.9 - 4.9 % 09/15/2024 2:01 PM CDT [facility] ALPHA 1 0.2 0.2 - 0.4 g/dL 09/15/2024 2:01 PM CDT [facility] % ALPHA 2 GLOBULIN 12.2(H) 7.1 - 11.8 % 09/15/2024 2:01 PM CDT [facility] ALPHA 2 0.9 0.5 - 1.0 g/dL 09/15/2024 2:01 PM CDT [facility] % BETA 16.5(H) 8.4 - 13.1 % 09/15/2024 2:01 PM CDT [facility] BETA-GLOBULIN 1.2(H) 0.5 - 1.1 g/dL 09/15/2024 2:01 PM CDT [facility] % GAMMA GLOBULIN 16.4 11.1 - 18.8 % 09/15/2024 2:01 PM CDT [facility] GAMMA 1.2 0.7 - 1.5 g/dL 09/15/2024 2:01 PM CDT [facility] IMMUNOGLOBULIN G 1,113 552 - 1,631 mg/dL 09/15/2024 2:01 PM CDT [facility] IMMUNOGLOBULIN A 281 65 - 421 mg/dL 09/15/2024 2:01 PM CDT [facility] IMMUNOGLOBULIN M 140 33 - 293 mg/dL 09/15/2024 2:01 PM CDT [facility] INTERPRETATION SERUM No abnormal protein band is detected by serum protein electrophoresis. Serum immunofixation electrophoresis is negative for monoclonal immunoglobulins. Reviewed by Laura Nicholas, Ph.D. 09/15/2024 2:01 PM CDT [facility] A/G RATIO, SERUM 1.1 09/16/19 2:01 PM CDT [facility] Blood Venipuncture / Unknown 09/13/2024 10:54 AM CDT 09/13/2024 10:54 AM CDT Narrative [facility] - 09/15/2024 2:01 PM CDT Reviewed by Terrance Ellsworth Jr., M.D. [facility] PAC CHEMISTRY ORDERABLES Donna l Result Performing Organization Address City/[facility]/ZIP Co de Phone Number [facility] [address] [place] [address], * FERRITIN (09/13/2024 10:54 AM CDT) FERRITIN 31 5 - 204 ng/mL 09/13/2024 11:56 AM CDT [facility] Blood Venipuncture / Unknown 09/13/2024 10:54 AM CDT 09/13/2024 10:54 AM CDT [facility] PAC CHEMISTRY ORDERABLES Donna l Result [facility] [address] [place] [address] * (ABNORMAL) CMP (COMPREHENSIVE METABOLIC PANEL) (09/13/2024 10:54 AM CDT) Only the most recent of3 resultswithin the time period is included. SODIUM 137 136 - 145 mmol/L 09/13/2024 11:40 AM CDT [facility] POTASSIUM 4.6 3.5 - 5.1 mmol/L 09/13/2024 11:40 AM CDT [facility] CHLORIDE 112(H) 98 - 107 mmol/L 09/13/2024 11:40 AM CDT [facility] CO2, VENOUS 16(L) 22 - 30 mmol/L 09/13/2024 11:40 AM CDT [facility] ANION GAP 13.6 <18.0 mmol/L 09/13/2024 11:40 AM CDT [facility] GLUCOSE 150(H) 70 - 99 mg/dL 09/13/2024 11:40 AM CDT [facility] BUN 24(H) 10 - 20 mg/dL 09/13/2024 11:40 AM CDT [facility] CREATININE, BLOOD 1.13(H) 0.60 - 1.00 mg/dL 09/13/2024 11:40 AM CDT [facility] BUN/CREATININE RATIO 21(H) 12 - 20 ratio 09/13/2024 11:40 AM CDT [facility] TOTAL PROTEIN 7.7 6.0 - 8.0 g/dL 09/13/2024 11:40 AM CDT [facility] ALBUMIN 4.3 3.5 - 5.0 g/dL 09/13/2024 11:40 AM CDT [facility] A/G RATIO 1.3 1.0 - 2.2 09/13/2024 11:40 AM CDT [facility] CALCIUM 10.5 8.7 - 10.5 mg/dL 09/13/2024 11:40 AM CDT [facility] T BILI 0.3 0.2 - 1.2 mg/dL 09/13/2024 11:40 AM CDT [facility] SGOT (AST) 34 <43 U/L 09/13/2024 11:40 AM CDT [facility] SGPT (ALT) 26 <56 U/L 09/13/2024 11:40 AM CDT [facility] ALKALINE PHOSPHATASE 88 40 - 150 U/L 09/13/2024 11:40 AM CDT [facility] IS THE PATIENT REQUIRED TO BE FASTING? No 09/13/2024 11:40 AM CDT [facility] GFR, ESTIMATED 57(L) >=60 09/13/2024 11:40 AM CDT [facility] Comment: Creatinine Clearance is the preferred criteria for selecting drug dose adjustments in renally impaired patients. The GFR is provided as additional pertinent clinical information. GFR is reported in mL/min/1.73 sq m. Calculation based on the Chronic Kidney Disease Epidemiology Collaboration (CKD- EPI) equation refit without adjustment for race. GFR, EST. >60 >=60 025 11:40 AM CDT [facility] GFR, EST. NONAFRICAN 50(L) >=60 09/13/2024 11:40 AM CDT [facility] Blood Venipuncture / Unknown 09/13/2024 10:54 AM CDT 09/13/2024 10:54 AM CDT Melony Asif PAC CHEMISTRY ORDERABLES Donna l Result [facility] [address] [place] [address] * US LEFT DUPLEX LOWER EXTREMITY VEINS (09/03/2024 11:42 AM CDT) Anatomical Region Laterality Modality vascular Left Ultrasound 09/03/2024 1:07 PM CDT Impressions 09/03/2024 1:09 PM CDT IMPRESSION: 1. No lower extremity deep venous thrombosis. Narrative 09/03/2024 1:09 PM CDT EXAM DESCRIPTION: US LEFT DUPLEX LOWER EXTREMITY VEINS REASON FOR STUDY: pain and swelling in left lower leg . Left lower extremity pain for 1 week. TECHNIQUE: Duplex scan using the B-mode, spectral Doppler, and color-flow Doppler of the deep venous system of the left lower extremity was performed. Images stored on PACS. COMPARISON: None FINDINGS: The left common femoral, superficial femoral, and popliteal veins are readily compressible with no intraluminal thrombus on huerta scale images. There is normal color and spectral Doppler signal, including augmentation. The left greater saphenous vein appears patent. Visualized calf veins are patent. THIS IS AN ELECTRONICALLY VERIFIED FINAL REPORT 09/03/2024 1:07 PM - Electronically signed by Milagros Morris D.O. PS: PS Report ID: [id number] Reading Location: [id number] Procedure Note Milagros Morris DO - 09/03/2024 EXAM DESCRIPTION: US LEFT DUPLEX LOWER EXTREMITY VEINS REASON FOR STUDY: pain and swelling in left lower leg . Left lower extremity pain for 1 week. TECHNIQUE: Duplex scan using the B-mode, spectral Doppler, and color-flow Doppler of the deep venous system of the left lower extremity was performed. Images stored on PACS. COMPARISON: None FINDINGS: The left common femoral, superficial femoral, and popliteal veins are readily compressible with no intraluminal thrombus on huerta scale images. There is normal color and spectral Doppler signal, including augmentation. The left greater saphenous vein appears patent. Visualized calf veins are patent. THIS IS AN ELECTRONICALLY VERIFIED FINAL REPORT 09/03/2024 1:07 PM - Electronically signed by Milagros Morris D.O. PS: PS Report ID: [id number] Reading Location: [id number] IMPRESSION: 1. No lower extremity deep venous thrombosis. us Tani Biggs PAC IMG US ORDERABLES Final Resu lt * THYROID SCREEN WITH REFLEX (09/01/2024 3:21 PM CDT) TSH 2.167 0.300 - 5.000 mIU/L 09/02/2024 9:55 AM CDT [facility] Blood Venipuncture / Unknown 09/01/2024 3:21 PM CDT 09/01/2024 3:21 PM CDT us Tani Biggs PAC CHEMISTRY ORDERABLES Final R esult [facility] [address] [place] [address] * (ABNORMAL) LIPID PANEL (09/01/2024 3:21 PM CDT) CHOLESTEROL 151 <200 mg/dL 09/02/2024 9:31 AM CDT [facility] TRIGLYCERIDES 184(H) <150 mg/dL 09/02/2024 9:31 AM CDT [facility] HDL CHOLESTEROL 68 >40 mg/dL 9:31 AM CDT [facility] LDL 46 <130 mg/dL 09/02/2024 9:31 AM CDT [facility] VLDL 37 10 - 50 mg/dL 09/02/2024 9:31 AM CDT [facility] CHOL/HDL RATIO 2.2 0.0 - 4.4 09/02/2024 9:31 AM CDT [facility] NON-HDL CHOLESTEROL 83 <130 mg/dL 09/02/2024 9:31 AM CDT [facility] IS THE PATIENT REQUIRED TO BE FASTING? Yes 09/02/2024 9:31 AM CDT [facility] HAS THE PATIENT BEEN FASTING? Yes 09/02/2024 9:31 AM CDT [facility] Blood Venipuncture / Unknown 09/01/2024 3:21 PM CDT 09/01/2024 3:21 PM CDT us Tani Zepeda Kalyan PAC CHEMISTRY ORDERABLES Final R esult [facility] [address] [place] [address] * (ABNORMAL) BASIC METABOLIC PANEL W/ CALCIUM TOTAL (09/01/2024 3:21 PM CDT) SODIUM 138 136 - 145 mmol/L 09/02/2024 9:31 AM CDT [facility] POTASSIUM 4.9 3.5 - 5.1 mmol/L 09/02/2024 9:31 AM CDT [facility] CHLORIDE 106 98 - 107 mmol/L 09/02/2024 9:31 AM CDT [facility] CO2, VENOUS 26 22 - 30 mmol/L 09/02/2024 9:31 AM CDT [facility] ANION GAP 10.9 <18.0 mmol/L 09/02/2024 9:31 AM CDT [facility] GLUCOSE 108(H) 70 - 99 mg/dL 09/02/2024 9:31 AM CDT [facility] BUN 10 10 - 20 mg/dL 09/02/2024 9:31 AM CDT [facility] CREATININE, BLOOD 0.88 0.60 - 1.00 mg/dL 09/02/2024 9:31 AM CDT [facility] BUN/CREATININE RATIO 11(L) 12 - 20 ratio 09/02/2024 9:31 AM CDT [facility] CALCIUM 9.9 8.7 - 10.5 mg/dL 09/02/2024 9:31 AM CDT [facility] IS THE PATIENT REQUIRED TO BE FASTING? No 09/02/2024 9:31 AM CDT [facility] GFR, ESTIMATED >60 >=60 09/02/2024 9:31 AM CDT [facility] Comment: Creatinine Clearance is the preferred criteria for selecting drug dose adjustments in renally impaired patients. The GFR is provided as additional pertinent clinical information. GFR is reported in mL/min/1.73 sq m. Calculation based on the Chronic Kidney Disease Epidemiology Collaboration (CKD- EPI) equation refit without adjustment for race. GFR, EST. >60 >=60 025 9:31 AM CDT [facility] GFR, EST. NONAFRICAN >60 >=60 09/02/2024 9:31 AM CDT [facility] Blood Venipuncture / Unknown 09/01/2024 3:21 PM CDT 09/01/2024 3:21 PM CDT us Tani Biggs PAC CHEMISTRY ORDERABLES Final R esult Performing Organization Address City/[facility] Co de Phone Number [facility] [address] [place] [address] * EXTERNAL PAIN REFERRAL (08/26/2024 12:00 AM CDT) 08/26/2024 us Phil Jacobo MD OUTPT REFERRALS EXT/INT Donna l Result Performing Organization Address City/[facility] Co de Phone Number SCAN * CT ABDOMEN PELVIS W/ CONTRAST (08/18/2024 11:51 PM CDT) Anatomical Region Laterality Modality Abdomen N/A Computed Tomogra phy 08/19/2024 12:3 3 AM CDT Impressions 08/19/2024 12:36 AM CDT IMPRESSION: 1. Fatty infiltration of the liver. 2. Postoperative changes partial right nephrectomy. 3. Nonobstructing bilateral renal stones. 4. Diverticulosis. No evidence of diverticulitis. Narrative 08/19/2024 12:36 AM CDT EXAM DESCRIPTION: CT ABDOMEN PELVIS W/ CONTRAST REASON FOR STUDY: c/o epigastric burning/ pain with N/V x 1 day. HX: HTN, DM, GERD, Rt renal carcinoma, Rt partial nephrectomy TECHNIQUE: CT scan of the abdomen and pelvis performed with intravenous and without oral contrast using helical scanning technique with dynamic intravenous contrast injection. Reconstructed coronal and sagittal MPR images reviewed. All images stored on PACS. Automated exposure control was used as a dose optimization technique for this examination. CONTRAST TYPE/DOSE: 100mL of IOPAMIDOL 76 % IV SOLN injected via Intravenous COMPARISON: 01/24/2024 FINDINGS: LOWER CHEST: No significant pulmonary abnormalities. No effusion. LIVER: Decreased attenuation as seen with fibrofatty changes. GALLBLADDER: No stones identified. No wall thickening or inflammatory changes. BILE DUCTS: No intrahepatic or extrahepatic ductal dilatation. SPLEEN: Normal size. No focal lesions. PANCREAS: No identified cystic or solid masses. No significant calcifications. No adjacent inflammation or peripancreatic fluid collections. Pancreatic duct not dilated. ADRENALS: Normal. KIDNEYS/URINARY TRACT: Postoperative changes partial right nephrectomy. There are nonobstructing bilateral renal stones. No obstructing renal or ureteral calculus. Urinary bladder is unremarkable. GI: No dilated bowel loops. No obvious wall thickening. Normal appendix. Scattered diverticular disease without diverticulitis. PERITONEUM: No ascites or free air. RETROPERITONEUM: No mass or adenopathy. REPRODUCTIVE: No significant abnormality. VASCULATURE: No abdominal aortic aneurysm. MUSCULOSKELETAL: No significant abnormality. OTHER: No other abnormality. THIS IS AN ELECTRONICALLY VERIFIED FINAL REPORT 08/19/2024 12:33 AM - Electronically signed by Yury Rowe M.D. KT: ARASH Report ID: [id number] Reading Location: [place] [id number] Procedure Note Yury Rowe MD - 08/19/2024 EXAM DESCRIPTION: CT ABDOMEN PELVIS W/ CONTRAST REASON FOR STUDY: c/o epigastric burning/ pain with N/V x 1 day. HX: HTN, DM, GERD, Rt renal carcinoma, Rt partial nephrectomy TECHNIQUE: CT scan of the abdomen and pelvis performed with intravenous and without oral contrast using helical scanning technique with dynamic intravenous contrast injection. Reconstructed coronal and sagittal MPR images reviewed. All images stored on PACS. Automated exposure control was used as a dose optimization technique for this examination. CONTRAST TYPE/DOSE: 100mL of IOPAMIDOL 76 % IV SOLN injected via Intravenous COMPARISON: 01/24/2024 FINDINGS: LOWER CHEST: No significant pulmonary abnormalities. No effusion. LIVER: Decreased attenuation as seen with fibrofatty changes. GALLBLADDER: No stones identified. No wall thickening or inflammatory changes. BILE DUCTS: No intrahepatic or extrahepatic ductal dilatation. SPLEEN: Normal size. No focal lesions. PANCREAS: No identified cystic or solid masses. No significant calcifications. No adjacent inflammation or peripancreatic fluid collections. Pancreatic duct not dilated. ADRENALS: Normal. KIDNEYS/URINARY TRACT: Postoperative changes partial right nephrectomy. There are nonobstructing bilateral renal stones. No obstructing renal or ureteral calculus. Urinary bladder is unremarkable. GI: No dilated bowel loops. No obvious wall thickening. Normal appendix. Scattered diverticular disease without diverticulitis. PERITONEUM: No ascites or free air. RETROPERITONEUM: No mass or adenopathy. REPRODUCTIVE: No significant abnormality. VASCULATURE: No abdominal aortic aneurysm. MUSCULOSKELETAL: No significant abnormality. OTHER: No other abnormality. THIS IS AN ELECTRONICALLY VERIFIED FINAL REPORT 08/19/2024 12:33 AM - Electronically signed by Yury Rowe M.D. KT: ARASH Report ID: [id number] Reading Location: [id number] IMPRESSION: 1. Fatty infiltration of the liver. 2. Postoperative changes partial right nephrectomy. 3. Nonobstructing bilateral renal stones. 4. Diverticulosis. No evidence of diverticulitis. Zacarias rAellano MD IMG CT ORDERABLES Final R esult * Magnesium (08/18/2024 9:35 PM CDT) Only the most recent of2 resultswithin the time period is included. MAGNESIUM 2.3 1.6 - 2.6 mg/dL 08/18/2024 10:10 PM CDT [facility] Blood Venipuncture / Unknown 08/18/2024 9:35 PM CDT 08/18/2024 9:47 PM CDT Zacarias Arellano MD CHEMISTRY ORDERABLES Donna l Result [facility] [address] [place] [address] * Lipase (08/18/2024 9:35 PM CDT) LIPASE 59 8 - 78 U/L 08/18/2024 10:10 PM CDT [facility] Blood Venipuncture / Unknown 08/18/2024 9:35 PM CDT 08/18/2024 9:47 PM CDT us Zacarias Arellano MD CHEMISTRY ORDERABLES Donna l Result [facility] [address] [place] [address] * XR HAND 2 VIEWS RIGHT (08/17/2024 4:54 PM CDT) Anatomical Region Laterality Modality UPPER EXTREMITY, hand Right Digital Ra diography 08/17/2024 5:16 PM CDT Impressions 08/17/2024 5:19 PM CDT IMPRESSION: 1. Polyarticular osteoarthritis. Known erosive change at the head of the 3rd metacarpal on prior study is less well demonstrated on the current examination. 2. No acute fracture or dislocation. 3. Mild soft tissue swelling about the distal 3rd digit. No radiopaque foreign body Narrative 08/17/2024 5:19 PM CDT EXAM DESCRIPTION: XR HAND 2 VIEWS RIGHT REASON FOR STUDY: pain in right 3rd digit x 2 months, worse x 1 week. NKI. limited ROM. denies swelling TECHNIQUE: 2 radiographic view(s) of the right hand . COMPARISON: 08/19/2022. FINDINGS: There is no acute fracture or dislocation. Known erosive change at the head of the 3rd metacarpal is less well demonstrated on this study. There is polyarticular osteoarthritis involving the triscaphe and the interphalangeal joints. Involvement of the metacarpophalangeal joints, greatest at the 1st. The soft tissue structures reveal mild swelling about the distal 3rd digit. No radiopaque foreign body THIS IS AN ELECTRONICALLY VERIFIED FINAL REPORT 08/17/2024 5:16 PM - Electronically signed by Salima Smith M.D. TW: TW Report ID: [id number] Reading Location: [id number] Procedure Note Salima Smith MD - 08/17/2024 EXAM DESCRIPTION: XR HAND 2 VIEWS RIGHT REASON FOR STUDY: pain in right 3rd digit x 2 months, worse x 1 week. NKI. limited ROM. denies swelling TECHNIQUE: 2 radiographic view(s) of the right hand . COMPARISON: 08/19/2022. FINDINGS: There is no acute fracture or dislocation. Known erosive change at the head of the 3rd metacarpal is less well demonstrated on this study. There is polyarticular osteoarthritis involving the triscaphe and the interphalangeal joints. Involvement of the metacarpophalangeal joints, greatest at the 1st. The soft tissue structures reveal mild swelling about the distal 3rd digit. No radiopaque foreign body THIS IS AN ELECTRONICALLY VERIFIED FINAL REPORT 08/17/2024 5:16 PM - Electronically signed by Salima Smith M.D. TW: TW Report ID: [id number] Reading Location: [id number] IMPRESSION: 1. Polyarticular osteoarthritis. Known erosive change at the head of the 3rd metacarpal on prior study is less well demonstrated on the current examination. 2. No acute fracture or dislocation. 3. Mild soft tissue swelling about the distal 3rd digit. No radiopaque foreign body Donna Frost APRN, LIDA IMG DIAGNOSTIC ORD ERABLES Final Result * (ABNORMAL) POCT GLYCOSYLATED HEMOGLOBIN (08/17/2024 3:40 PM CDT) HGB-A1C 8.7(A) 4 - 6 % Blood 08/17/2024 3:40 PM CDT David Salmon MD POINT OF CARE TESTING (MANUAL) F inal Result * FAMILY MEDICINE CONSULT (07/27/2024 12:00 AM CDT) 07/27/2024 Provider Scan GENERIC SCAN ORDERS CONSULT Donna l Result SCAN * NEUROSURGY CONSULT (07/21/2024 12:00 AM CDT) 07/21/2024 Provider Scan GENERIC SCAN ORDERS CONSULT Donna l Result Performing Organization Address City/[facility]/ZIP Co de Phone Number SCAN * THYROXINE (T4) FREE (07/20/2024 11:58 AM CDT) T4 FREE 1.0 0.7 - 1.9 ng/dL 07/20/2024 1:43 PM CDT [facility] Blood Venipuncture / Unknown 07/20/2024 11:58 AM CDT 07/20/2024 12:27 PM CDT Amber Aldrich APRN, WINE CE[employer] STOCK CLERK CHEMISTRY ORDE RABLES Final Result Performing Organization Address [facility] de Phone Number [facility] [address] [place] [address] * THYROID STIMULATING HORMONE (TSH) (07/20/2024 11:58 AM CDT) TSH 1.466 0.300 - 5.000 mIU/L 07/20/2024 1:43 PM CDT [facility] Blood Venipuncture / Unknown 07/20/2024 11:58 AM CDT 07/20/2024 12:27 PM CDT Amber Aldrich APRN, WINE CELLAR STOCK CLERK CHEMISTRY ORDE RABLES Final Result Performing Organization Address City/[facility] Co de Phone Number [facility] [address] [place] [address] * MRI C-SPINE W/O CONTRAST (07/03/2024 7:11 AM CDT) Anatomical Region Laterality Modality Spine, C-spine N/A Magnetic Resonan ce 07/05/2024 9:00 AM CDT Impressions 07/05/2024 9:02 AM CDT IMPRESSION: Constellation of spondylolisthesis with straightening of the cervical lordosis, spondylosis, and degenerative disc disease of the cervical spine as detailed level by level above. Narrative 07/05/2024 9:02 AM CDT EXAM DESCRIPTION: MRI CERVICAL SPINE WITHOUT CONTRAST REASON FOR STUDY: Chronic nontraumatic predominantly right-sided neck pain radiating down the right arm since March 2024. No provided history of inciting and/or aggravating events. History of rheumatoid arthritis, asthma, CAD, diabetes, and hypertension. Per MRI screening form, history of unspecified cancer of unspecified date of diagnosis, therapeutic interventions, and metastatic, to include osseous metastatic, disease burden. No intracranial, vascular, or spinal surgeries. TECHNIQUE: Sagittal and axial imaging of the cervical spine includes T1, T2, STIR and gradient echo sequences. Images saved to PACS. COMPARISON: Cervical spine radiograph 2024 and 02/06/2023 FINDINGS: ALIGNMENT: Redemonstration of variable minimal to mild stair step anterolisthesis C3 on C4 and C4 on C5 in association with straightening of the cervical lordosis. VERTEBRAE: No MR evidence of acute-subacute fracture. Vertebral body heights maintained. Spondylosis. Marrow signal within normal limits. DISCS: Multilevel variable intervertebral disc desiccation without significant loss of intervertebral disc height. HARDWARE: None in the cervical spine. CORD: Normal in size and signal intensity. INDIVIDUAL LEVELS: C1-C2: No spinal canal stenosis. C2-C3: No diffuse disc bulge or focal herniation. No spinal canal stenosis. No neural foraminal stenosis C3-C4: Small central disc protrusion slightly indenting the ventral thecal sac. Bilateral facet arthropathy. No spinal canal stenosis. No neural foraminal stenosis. C4-C5: Tiny central disc protrusion slightly indenting the ventral thecal sac. Bilateral hypertrophic facet arthropathy. No spinal canal stenosis. No neural foraminal stenosis. C5-C6: Tiny central disc protrusion slightly indenting the ventral thecal sac. Bilateral hypertrophic facet arthropathy. No spinal canal stenosis. No neural foraminal stenosis. C6-C7: Tiny central disc protrusion slightly indenting the ventral thecal sac. Bilateral facet arthropathy. No spinal canal stenosis. No neural foraminal stenosis. C7-T1: No diffuse disc bulge or focal herniation. BASE OF BRAIN: There is mild patchy pontine T2/FLAIR hyperintense white matter disease, nonspecific, though can be seen secondary to chronic microvascular ischemia. UPPER THORACIC: Incompletely imaged. No significant spinal stenosis or foraminal stenosis. OTHER: No other significant finding. THIS IS AN ELECTRONICALLY VERIFIED FINAL REPORT 07/05/2024 9:00 AM - Electronically signed by Gerard Coyle M.D. MATTIE: MATTIE Report ID: [id number] Reading Location: [place] [id number] Procedure Note Gerard Coyle MD - 07/05/2024 EXAM DESCRIPTION: MRI CERVICAL SPINE WITHOUT CONTRAST REASON FOR STUDY: Chronic nontraumatic predominantly right-sided neck pain radiating down the right arm since March 2024. No provided history of inciting and/or aggravating events. History of rheumatoid arthritis, asthma, CAD, diabetes, and hypertension. Per MRI screening form, history of unspecified cancer of unspecified date of diagnosis, therapeutic interventions, and metastatic, to include osseous metastatic, disease burden. No intracranial, vascular, or spinal surgeries. TECHNIQUE: Sagittal and axial imaging of the cervical spine includes T1, T2, STIR and gradient echo sequences. Images saved to PACS. COMPARISON: Cervical spine radiograph 2024 and 02/06/2023 FINDINGS: ALIGNMENT: Redemonstration of variable minimal to mild stair step anterolisthesis C3 on C4 and C4 on C5 in association with straightening of the cervical lordosis. VERTEBRAE: No MR evidence of acute-subacute fracture. Vertebral body heights maintained. Spondylosis. Marrow signal within normal limits. DISCS: Multilevel variable intervertebral disc desiccation without significant loss of intervertebral disc height. HARDWARE: None in the cervical spine. CORD: Normal in size and signal intensity. INDIVIDUAL LEVELS: C1-C2: No spinal canal stenosis. C2-C3: No diffuse disc bulge or focal herniation. No spinal canal stenosis. No neural foraminal stenosis C3-C4: Small central disc protrusion slightly indenting the ventral thecal sac. Bilateral facet arthropathy. No spinal canal stenosis. No neural foraminal stenosis. C4-C5: Tiny central disc protrusion slightly indenting the ventral thecal sac. Bilateral hypertrophic facet arthropathy. No spinal canal stenosis. No neural foraminal stenosis. C5-C6: Tiny central disc protrusion slightly indenting the ventral thecal sac. Bilateral hypertrophic facet arthropathy. No spinal canal stenosis. No neural foraminal stenosis. C6-C7: Tiny central disc protrusion slightly indenting the ventral thecal sac. Bilateral facet arthropathy. No spinal canal stenosis. No neural foraminal stenosis. C7-T1: No diffuse disc bulge or focal herniation. BASE OF BRAIN: There is mild patchy pontine T2/FLAIR hyperintense white matter disease, nonspecific, though can be seen secondary to chronic microvascular ischemia. UPPER THORACIC: Incompletely imaged. No significant spinal stenosis or foraminal stenosis. OTHER: No other significant finding. THIS IS AN ELECTRONICALLY VERIFIED FINAL REPORT 07/05/2024 9:00 AM - Electronically signed by Gerard Coyle M.D. MATTIE: MATTIE Report ID: [id number] Reading Location: [id number] IMPRESSION: Constellation of spondylolisthesis with straightening of the cervical lordosis, spondylosis, and degenerative disc disease of the cervical spine as detailed level by level above. Tani Biggs [facility] IMG MR ORDERABLES Final Resu lt * HM DILATED EYE EXAM (12/01/2023 12:00 AM CDT) 12/01/2023 Provider Scan PROCEDURE/MINOR SURGICAL ORDERAB LES Final Result SCAN * CT CHEST SCREENING WO (06/18/2023 12:34 PM CDT) Anatomical Region Laterality Modality Chest N/A Computed Tomogra phy 06/21/2023 9:43 AM CDT Impressions 06/21/2023 9:46 AM CDT IMPRESSION: Unchanged bilateral patchy ground-glass opacities, greatest in the left upper lobe. No focal consolidation or suspicious pulmonary nodule. Lung-RADS category 2S: Benign appearance or behavior. Finding other than a pulmonary nodule which is potentially clinically significant. Recommendation: Low dose CT of chest in 3 months. Narrative 06/21/2023 9:46 AM CDT EXAM DESCRIPTION: CT CHEST SCREENING WO REASON FOR STUDY: Screening CT of the chest in a former smoker with a 27.75 pack year smoking history. Additional history: None. TECHNIQUE: Low dose CT scan of the chest was performed without intravenous contrast using helical scanning technique. The exam extends from the lung apices through the lung bases. Automatic exposure control was used as a dose optimization technique. NOTE: This study was performed for the specific purposes of lung cancer screening and is not an alternative to diagnostic chest CT. RADIATION DOSE: CT dose index volume (CTDIvol) = 3.62 mGy COMPARISON: 03/17/[address] FINDINGS: SMOKING RELATED LUNG DISEASE: Mild emphysema LUNG NODULES: No suspicious pulmonary nodule. CORONARY ARTERY CALCIFICATION: Multivessel coronary artery calcifications. OTHER: Redemonstration of bilateral ground-glass opacities, largest in the left upper lobe, unchanged from prior study. No focal consolidation, pleural effusion or pneumothorax. No acute findings in the visualized upper abdomen. THIS IS AN ELECTRONICALLY VERIFIED FINAL REPORT 06/21/2023 9:43 AM - Electronically signed by Pavithra Ledbetter M.D. FT: FT Report ID: [id number] Reading Location: [id number] Procedure Note Pavithra Pollock MD - 06/21/2023 EXAM DESCRIPTION: CT CHEST SCREENING WO REASON FOR STUDY: Screening CT of the chest in a former smoker with a 27.75 pack year smoking history. Additional history: None. TECHNIQUE: Low dose CT scan of the chest was performed without intravenous contrast using helical scanning technique. The exam extends from the lung apices through the lung bases. Automatic exposure control was used as a dose optimization technique. NOTE: This study was performed for the specific purposes of lung cancer screening and is not an alternative to diagnostic chest CT. RADIATION DOSE: CT dose index volume (CTDIvol) = 3.62 mGy COMPARISON: 03/17/[address] FINDINGS: SMOKING RELATED LUNG DISEASE: Mild emphysema LUNG NODULES: No suspicious pulmonary nodule. CORONARY ARTERY CALCIFICATION: Multivessel coronary artery calcifications. OTHER: Redemonstration of bilateral ground-glass opacities, largest in the left upper lobe, unchanged from prior study. No focal consolidation, pleural effusion or pneumothorax. No acute findings in the visualized upper abdomen. THIS IS AN ELECTRONICALLY VERIFIED FINAL REPORT 06/21/2023 9:43 AM - Electronically signed by Pavithra Ledbetter M.D. FT: FT Report ID: [id number] Reading Location: [id number] IMPRESSION: Unchanged bilateral patchy ground-glass opacities, greatest in the left upper lobe. No focal consolidation or suspicious pulmonary nodule. Lung-RADS category 2S: Benign appearance or behavior. Finding other than a pulmonary nodule which is potentially clinically significant. Recommendation: Low dose CT of chest in 3 months. Belkis Mcnair APRN, CNP IMNancy CT ORDERABL ES Final Result * HEPATITIS C ANTIBODY (08/19/2022 12:26 PM CDT) hepatitis C antibody 0.07 <1 S/CO [facility] ARCH [id number] 08/19/2022 9:49 PM CDT [facility] Comment: Signal/Cutoff ratio < 0.79 is Nondetected Signal/Cutoff ratio 0.80-0.99 is Grayzone Signal/Cutoff ratio > 0.99 is Detected Supplemental assays are recommended if signal/cutoff ratio is >/=1.00. Signal/cutoff ratio result >/= 5.00 is 97% predictive of positivity for recombinant immunoblot assay (RIBA) and will be reported to the [place] Department of Public Health as required. Blood Venipuncture / Unknown 08/19/2022 12:26 PM CDT 08/19/2022 12:38 PM CDT Tarsha Fernandez MD CHEMISTRY ORDERABLES Final Res ult [facility] [address] [place] [address], [place] * YAZAN SCREENING BILATERAL DIGITAL W CAD W ROSEANN (06/19/2022 3:15 PM CDT) Anatomical Region Laterality Modality breast Bilateral Mammography 06/19/2022 2:45 PM CDT Narrative 06/20/2022 2:44 PM CDT - YAZAN SCREENING BILATERAL DIGITAL W CAD W ROSEANN BILATERAL DIGITAL SCREENING MAMMOGRAM 3D/2D WITH CAD WITH MEDIOLATERAL OBLIQUE CRANIOCAUDAL: 06/19/2022 The study was acquired using digital technology and interpreted from soft copy. Current study was also evaluated with ICAD version 7.2. 2D digital mammographic views, as well as 3D digital tomosynthesis were performed in the CC and MLO projections. CLINICAL: Routine screening. Patient has no complaints. No personal history of cancer. No family history of breast cancer. COMPARISONS: Comparison is made to exam dated: 02/16/2020 [facility]. BREAST TISSUE:There are scattered fibroglandular densities in both breasts. FINDINGS: No significant masses, calcifications, or other findings are seen in either breast. There has been no significant interval change. IMPRESSION: BI-RAD 1 NEGATIVE There is no mammographic evidence of malignancy. A 1 year screening mammogram is recommended. A letter will be sent to the patient with these results. The patient will be entered into a reminder system with a target due date of 1 year for her next screening exam. Electronically signed by: Solange huynh/jeff:06/19/2022 16:18:35 Trauma Doctor(s): RT Tawny(R)(M), [facility] letter sent: Normal Exam Reading location: [facility] BI-RADS: 1 Negative Procedure Note Solange Evangelista MD - 06/20/2022 - YAZAN SCREENING BILATERAL DIGITAL W CAD W ROSEANN BILATERAL DIGITAL SCREENING MAMMOGRAM 3D/2D WITH CAD WITH MEDIOLATERAL OBLIQUE CRANIOCAUDAL: 06/19/2022 The study was acquired using digital technology and interpreted from soft copy. Current study was also evaluated with ICAD version 7.2. 2D digital mammographic views, as well as 3D digital tomosynthesis were performed in the CC and MLO projections. CLINICAL: Routine screening. Patient has no complaints. No personal history of cancer. No family history of breast cancer. COMPARISONS: Comparison is made to exam dated: 02/16/2020 [facility]. BREAST TISSUE:There are scattered fibroglandular densities in both breasts. FINDINGS: No significant masses, calcifications, or other findings are seen in either breast. There has been no significant interval change. IMPRESSION: BI-RAD 1 NEGATIVE There is no mammographic evidence of malignancy. A 1 year screening mammogram is recommended. A letter will be sent to the patient with these results. The patient will be entered into a reminder system with a target due date of 1 year for her next screening exam. Electronically signed by: Solange Evangelista M.D. ab/penrad:06/19/2022 16:18:35 Trauma Doctor(s): RT Tawny(R)(M), [facility] letter sent: Normal Exam Reading location: [facility] BI-RADS: 1 Negative us Emilia Tang MD IMG MAMMO ORDERABLES Final R esult * PATHOLOGY CYTOLOGY ECDIS N NAVIGATION OPERATOR (09/26/2021 9:23 AM CDT) SPECIMEN ADEQUACY Satisfactory for evaluation. Endocervical/transf ormation zone component is absent. 09/28/2021 9:05 AM CDT [facility] DESCRIPTIVE DIAGNOSIS NEGATIVE FOR INTRAEPITHELIAL LESIONS OR MALIGNANCY. 09/28/2021 9:05 AM CDT [facility] at 0905 CDT OTHER FINDINGS Fungal organisms present, morphologically consistent with Kristen species. 09/28/2021 9:05 AM CDT [facility] HPV Reflex if ASCUS? Yes 09/28/2021 9:05 AM CDT [facility] Automated Examination Analysis of this sample has been assisted by an automated imaging and review system ([employer], [employer], [place], [place]). This case is further evaluated and finalized by a event services manager and/or pathologist. 09/28/2021 9:05 AM CDT [facility] Disclaimer The PAP smear is a screening test designed to detect cancerous or precancerous cells of the uterine cervix. It is one of the best means available for detection of cervical cancer but still carries an inherent false-negative rate. The consequences of a false-negative PAP result can be minimized by adhering to current screening guidelines. The following are general guidelines recommended by the ACS, ASCP, ASCCP, and ACOG: PAP testing is recommended every three years for women 21-29, Co-Testing, a PAP test in conjunction with an HPV (Human Papillomavirus) test for women ages 30-65, and no PAP or HPV testing for women under the age of 21 or older than 65 unless clinically indicated. 09/28/2021 9:05 AM CDT [facility] Other SPECIMEN FROM CERVIX OR VAGINA / Unknown Non-Phlebotomy Collection / Unknown 09/26/2021 9:23 AM CDT 09/26/2021 9:23 AM CDT Jackeline Dimas APRN, CNP PATHOLOGY/CYTOLOGY ORDAlisa HAMMER Final Result Performing Organization Address City/State/[facility] Co de Phone Number [facility] [address] [place] [address], [place] from Last 3 Months or Most Recently Relevant to Health Maintenance Insurance MEDICAID [place] MEDICARE C [employer] MEDICARE C [facility] Advance Directives Documents on File Type Date Recorded Patient Sr Risk Management Consultant Expl anation Power of Build Technician for Health Care 05/23/2021 2:13 PM POA-HC 05/23/21 Advance Care Planning Discussion 05/23/2021 2:13 PM ACP Discussion Recor / 05/23/21 * Full Code (Latest Code Status on File) Date Activated Date Inactivated Comments 11/06/2017 12:44 PM 11/07/2017 7:47 PM CPR-Full Tr eatment: FULL ARREST: Attempt Resuscitation/CPR wit intubation and mechanical ventilation. PRE-ARREST: Use entire range of life support measures to stabilize the patient. * Full Code Date Activated Date Inactivated Comments 07/16/2017 1:11 PM 07/18/2017 8:21 PM CPR-Full Asiya tment: FULL ARREST: Attempt Resuscitation/CPR wit intubation and mechanical ventilation. PRE-ARREST: Use entire range of life support measures to stabilize the patient. Care Teams Scraper Tender Relationship Specialty Start Date End Date Tani Biggs, PAC [address] [place] [phone] PCP - General Physician Knocker Out 05/31/24 Phil Jacobo MD [address] [place] [address] Consulting Physician Neurology 03/07/21 Rajiv Mccormack, KELI [address] [place] [address] Nurse Practitioner Gastroenterology 03/07/21 Alize Acosta, RUSSELL, WINE CELLAR STOCK CLERK [address] [place] [address] Virtual Advanced Care (VAC) ROPE CUTTER Advanced Practice Nurse 08/30/21 David Salmon MD #[address] [phone] Consulting Physician Endocrinology 01/15/22 Maurilio Farley MD #[address] [id number] Consulting Physician Colon and Rectal Surgery 09/20/22 Dom Quiñonez MD #2 [place] [address] Consulting Physician Pulmonary Disease 11/19/21 Rachelle Nava APRN, POT FIRER [address] [place] [address] Nurse Practitioner Advanced Practice Nurse 07/19/22 Sharri Gaspar MD [address] [address] Consulting Physician Cardiology 04/26/24 Amber Aldrich APRN, WINE CELLAR STOCK CLERK [address] [place] [address] Nurse Practitioner Cardiology 07/30/24
--- OUTSIDE RECORDS SUMMARY | 2024-09-20 12:00 | XMS_ITS | Encounter Summary ---
Author Organization [facility] Address [address] [place] [address] Phone Care Team Providers Care Coding Compliance Manager Name Role Phone Phil Jacobo MD Unavailable [phone] Rajiv Mccormack NP Unavailable Unavailable Alize Acosta EDITORIAL CLERK, VICE PRESIDENT MEDICAL AFFAIRS Unavailable +[phone] Dayo Chaney MD Unavailable Juanita Hauser RN Unavailable Unavaila David Martinez MD Unavailable Emilia Tang MD Primary Care Provider +[phone] Maurilio Farley MD Unavailable PhysicianCandida MD Unavailable Rebeka Trinidad MD Primary Care Provider + [phone] Dom Quiñonez MD Unavailable Rachelle Nava EDITORIAL CLERK, BUNGHOLE BORER Unavailable + [phone] Irais Naylor EDITORIAL CLERK, VICE PRESIDENT MEDICAL AFFAIRS Unavailable + [phone] Lorri Leo EDITORIAL CLERK, VICE PRESIDENT MEDICAL AFFAIRS Primary Care Provider + [phone] Rebeka Trinidad MD Primary Care Provider +[phone] Lorri Leo EDITORIAL CLERK, VICE PRESIDENT MEDICAL AFFAIRS Primary Care Provider + [phone] Sharri Gaspar MD Unavailable Tani Biggs Primary Care Provider + [phone] Valdemar Amber Burnettee EDITORIAL CLERK, VICE PRESIDENT MEDICAL AFFAIRS Unavailable Reason for Visit * Reason Comments Medication Refill Encounter Details Date Type Department Care Team (Late st Contact Info) Description 12/19/2022 Refill [facility] - Neurology - [place] [address] [place] [address] Rachelle Nava, EDITORIAL CLERK, BUNGHOLE BORER [address] [place] [address] Medication Refill Social History Tobacco Use Types Packs/Day Years Used Date Smoking Tobacco: Former Cigarettes 1 37.1 1 985 - 04/12/2021 Smokeless Tobacco: Never Alcohol Use Standard Drinks/Week Comments Not Currently 0 (1 standard drink = 0.6 oz pur e alcohol) last drank 2020 PHQ-2 Answer Date Recorded Total Score - Questions 1-9 18 10/10 Education Answer Date Recorded What is the [...] Industry 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 No / Unsure 12/20/2022 9:44 AM CDT documented as of this encounter Miscellaneous Notes * Telephone Encounter - Renee Germain RN - 12/19/2022 10:30 AM CDT Medication failed the protocol, provider to review and approve the medication order if appropriate. Requested Prescriptions Pending Prescriptions Disp Refills Qulipta 60 MG Tablet [Pharmacy Med Name: QULIPTA 60MG TABLETS] 30 Tablet 3 Sig: TAKE 1 TABLET BY MOUTH DAILY Not Delegated - Off Protocol Failed - 12/19/2022 10:23 AM Failed - This refill cannot be delegated Passed - Visit with relevant provider in past 12 months or upcoming 90 days Recent Visits Date Type Provider Dept 11/06/22 Office Visit Emilia Tang MD [facility] 10/10/22 Office Visit Emilia Tang MD [facility] 09/16/22 Office Visit Rachelle Nava APRN, BUNGHOLE BORER [facility] 09/06/22 Office Visit Emilia Tang MD [facility] 07/19/22 Office Visit Rachelle Nava APRN, JUANITO [facility] 06/07/22 Office Visit Emilia Tang MD [facility] Showing recent visits within past 365 days and meeting all other requirements Future Appointments Date Type Provider Dept 02/06/23 Appointment Emilia Tang MD [facility] 03/19/23 Appointment Rachelle Nava APRN, [facility] Showing future appointments within next 90 days and meeting all other requirements documented in this encounter Plan of Treatment Upcoming Encounters Date Type Department Care Team (Late st Contact Info) Description 09/21/2024 3:20 PM CDT Office Visit [facility] Cancer Center Oncology Services [address] [place] [address] Melony Asif Stacey, PAC [address] [place] [address] Discharge Disposition: Discharged to home or Selfcare 10/18/2024 1:00 PM CDT Office Visit [facility] - Pulmonology & Sleep Medicine - [place] [address] [place] [address] Dom Quiñonez MD [address] [place] [address] 10/26/2024 1:00 PM CDT [facility] - [place] [address] [place] [address] Amber Aldrich APRN, VICE PRESIDENT MEDICAL AFFAIRS [address] [place] [address] 11/09/2024 2:00 PM CDT Telemedicine [facility] [address] [place] [address] Alize Acosta APRN, VICE PRESIDENT MEDICAL AFFAIRS [address] [place] [address] 11/18/2024 3:45 PM CDT Office Visit [facility] - Endocrinology - [place] [address] [place] [address] David Salmon MD #[address] [address] 03/04/2025 3:10 PM OUTPATIENT CASE MANAGER Lab [facility] [place] [address] [facility] 03/04/2025 3:30 PM OUTPATIENT CASE MANAGER Office Visit [facility] [place] [address] Tani Biggs, [facility] [address] [place] [address] documented as of this encounter Goals [...] diet Depression Depression Improving(0 03/15/2022 2:27 PM OUTPATIENT CASE MANAGER) No Breanne Saldana LCSW Note: Goal/Objective: [...] 19 04/18/2024 04/18/2024 04/18/2024 10:4 7 PM OUTPATIENT CASE MANAGER Respiratory Rule-Out 05/06/2024 05/06/2024 025 9:20 AM OUTPATIENT CASE MANAGER COVID - 19 05/06/2024 05/06/2024 05/06/2024 9:19 AM OUTPATIENT CASE MANAGER Assessment Noted Time PHQ-9 Depression Total Score: 18 023 9:24 AM CDT documented as of this encounter Care Teams Coding Compliance Manager Relationship Specialty Start Date End Date Emilia Tang MD [address] [place] [address] PCP - General Family Medicine 06/07/22 03/25/23 Rebeka Trinidad MD [address] [place] [address] PCP - General Family Medicine 03/26/23 03/29/24 Lorri Leo EDITORIAL CLERK, VICE PRESIDENT MEDICAL AFFAIRS [address] [address] [address] PCP - General Certified Nurse Practitioner 03/30/24 04/20/24 Rebeka Trinidad MD [address] [place] [employer], [place] [phone] PCP - General Family Medicine 04/21/24 04/21/24 Lorri Leo APRN, VICE PRESIDENT MEDICAL AFFAIRS [address] [place] [employer] [place] [place], [place] [phone] PCP - General Certified Nurse Practitioner 04/22/24 05/30/24 Tani Biggs PAC [address] [place] [address] PCP - General Physician Analytics Architect 05/31/24 Phil Jacobo MD [address] [place] [address] Consulting Physician Neurology 03/07/21 Rajiv Mccormack, KELI [address] [place] [address] Nurse Practitioner Gastroenterology 03/07/21 Alize Acosta APRN, VICE PRESIDENT MEDICAL AFFAIRS [address] [place] [address] Virtual Advanced Care (VAC) ACROBATIC DANCER Advanced Practice Nurse 08/30/21 Dayo Chaney MD [address] [place] [address] Engineering Leader Cardiovascular Disease - Cardiology 09/20/21 02/12/24 Juanita Mercado RN [place] Registered Nurse Cardiology 12/24/21 02/12/24 David Salmon MD #[address] [phone] Consulting Physician Endocrinology 01/15/22 Maurilio Farley MD #[address] [address] Consulting Physician Colon and Rectal Surgery 09/20/22 PhysicianCandida MD [address] [place] [address] Family Medicine 01/25/22 03/18/23 Dom Quiñonez MD [address] [place] [address] Consulting Physician Pulmonary Disease 11/19/21 Rachelle Nava APRN, BUNGHOLE BORER [address] [place] [address] Nurse Practitioner Advanced Practice Nurse 07/19/22 Irais Naylor APRN, VICE PRESIDENT MEDICAL AFFAIRS #[address] [address] Nurse Practitioner Cardiology 06/27/23 07/29/24 Sharri Gaspar MD [address] [address] Consulting Physician Cardiology 04/26/24 Amber Aldrich APRN, VICE PRESIDENT MEDICAL AFFAIRS [address] [place] [address] Nurse Practitioner Cardiology 07/30/24 documented as of this encounter
--- OUTSIDE RECORDS SUMMARY | 2024-09-20 12:00 | XMS_ITS | Encounter Summary ---
Author Organization [facility] Address [address] [place] [address] Phone Care Team Providers Care Patcher Wood Welder Name Role Phone Phil Jacobo MD Unavailable [phone] Rajiv Mccormack NP Unavailable Unavailable Alize Acosta APRN, CANDLES POURER Unavailable [phone] Dayo Chaney MD Unavailable Juanita Hauser RN Unavailable UnavailDavid Alexandre MD Unavailable Maurilio Farley MD Unavailable Rebeka Trinidad MD Primary Care Provider + [phone] Dom Quiñonez MD Unavailable Rachelle Nava BOMB SQUAD COMMANDER, TRIMMING INSPECTOR Unavailable + [phone] Irais Naylor BOMB SQUAD COMMANDER, CANDLES POURER Unavailable + [phone] Lorri Leo BOMB SQUAD COMMANDER, CANDLES POURER Primary Care Provider + [phone] Rebeka Trinidad MD Primary Care Provider + [phone] Lorri Leo BOMB SQUAD COMMANDER, CANDLES POURER Primary Care Provider + [phone] Sharri Gaspar MD Unavailable Tani Biggs [facility] Primary Care Provider + [phone] Amber Aldrich APRN, CNP Unavailable Reason for Visit * Reason Comments Medication Refill Encounter Details Date Type Department Care Team (Late st Contact Info) Description 08/05/2023 Refill [facility] - Primary Care - [place] [address] [place] [address] Rebeka Trinidad MD [address] [place] [address] Medication Refill Social History Tobacco Use Types Packs/Day Years Used Date Smoking Tobacco: Former Cigarettes 1 37.1 1 985 - 04/12/2021 Smokeless Tobacco: Never Alcohol Use Standard Drinks/Week Comments Not Currently 0 (1 standard drink = 0.6 oz pur e alcohol) last drank 2020 [facility] Utilities Answer Date Recorded In the past 12 months has [employer] electric, gas, oil, or water [employer] threatened to shut off services in your home? No 03/24/2023 Social Connection and Isolation Panel Answer Date Recorded In a typical week, how many times do you talk on the phone with family, friends, or neighbors? Once a week 03/24/2023 How often do you get togethe r with friends or relatives? Never 03/24/2023 How often do you attend [facility] or anglican services? More than 4 times per year 03/24/2023 Do you belong to any clubs o r organizations such as buddhism groups, unions, fraternal or athletic groups, or [...] Total Score - Questions 1-9 18 10/10 [facility] of Occupat ional [facility] - Occupational Stress Questionnaire Answer Date [...] place to sleep or slept in a half-way (including now)? 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 Requested Prescriptions Pending Prescriptions Disp Refills buPROPion (WELLBUTRIN) 150 MG XL tablet [Pharmacy Med Name: BUPROPION XL 150MG TABLETS (24 H)] 90 Tablet 0 Sig: Take 1 Tablet by mouth every morning. Bupropion (6 Month Refill Only) Protocol Failed - 08/05/2023 1:19 PM Failed - Patient has established therapy with Bupropion for at least 6 months Passed - No test in the past 12 months or most recent test was negative Passed - No active on record Passed - Visit with relevant provider in past 6 months or upcoming 90 days Recent Visits Date Type Provider Dept 06/04/23 Office Visit Rebeka Trinidad MD [facility] 05/09/23 Office Visit Rebeka Trinidad MD [facility] 03/26/23 Office Visit Rebeka Trinidad MD [facility] 02/06/23 Office Visit Emilia Tang MD [facility] Showing recent visits within past 182 days and meeting all other requirements Future Appointments No visits were found meeting these conditions. Showing future appointments within next 90 days and meeting all other requirements Passed - Has an encounter in the past 6 months with a depression or anxiety visit diagnosis documented in this encounter Plan of Treatment Upcoming Encounters Date Type Department Care Team (Late st Contact Info) Description 09/21/2024 3:20 PM CDT Office Visit [facility] Oncology Services [address] [place] [phone] Melony Asif, ESTRELLITA [address] [place] [address] Discharge Disposition: Discharged to home or Selfcare 10/18/2024 1:00 PM CDT Office Visit [facility] - Pulmonology & Sleep Medicine [facility] [address] [place] [address] Dom Quiñonez MD [address] [place] [address] 10/26/2024 1:00 PM CDT Office Visit [facility] - Cardiology - [place] [address] [place] [address] Amber Aldrich, BOMB SQUAD COMMANDER, CANDLES POURER [address] [place] [address] 11/09/2024 2:00 PM CDT Telemedicine [facility] [address] [place] [address] Alize Acosta, BOMB SQUAD COMMANDER, CANDLES POURER [address] [place] [address] 11/18/2024 3:45 PM CDT Office Visit [facility] - Endocrinology - [place] [address] [place] [address] David Salmon MD #[address] [address] 03/04/2025 3:10 PM STARTING GATE DRIVER [facility] [place] [place] [address] [place] Colon [place] 03/04/2025 3:30 PM STARTING GATE DRIVER Office Visit [facility] - Primary Care - [place] [address] [place] [address] Tani Biggs, PAC [address] [place] [address] documented as of this encounter Goals Goal Patient Goal Type Associated Problems Recent Progress Patient-Stated? Author ACTIVITY Activity No change(08/08 2:42 PM CDT) Yes Maritza Vanegas, RN Note: Bonny will walk five days a week. Goal Reviewed with: Bonny Readiness to change: Department associated with goal: [facility] Steps to achieve goal: Walking 5 days a week I want to be able to be around people and feel less depressed. Behavioral Health Worsening(0 09/22/2023 3:12 PM CDT) Yes Hilda Tinajero [facility] Note: Goal/Objective: Decrease symptoms of depression and anxiety. Anticipated Time Frame for Goal Completion: 3 months Goal Reviewed with: patient Readiness to change: Thinking about making a change Department associated with goal: [facility] Steps to achieve [...] Improving(0 12/08/2023 2:39 PM CDT) No Renita Quezada, RN [...] diet Depression Depression Improving(0 03/15/2022 2:27 PM STARTING GATE DRIVER) No Breanne Saldana LCSW Note: Goal/Objective: Decrease [...] 19 04/18/2024 04/18/2024 04/18/2024 10:4 7 PM STARTING GATE DRIVER Respiratory Rule-Out 05/06/2024 05/06/2024 025 9:20 AM STARTING GATE DRIVER COVID - 19 05/06/2024 05/06/2024 05/06/2024 9:19 AM STARTING GATE DRIVER Assessment Noted Time PHQ-9 Depression Total Score: 18 023 9:24 AM CDT documented as of this encounter Care Teams Patcher Wood Welder Relationship Specialty Start Date End Date Rebeka Trinidad MD [address] [place] [address] PCP - General Family Medicine 03/26/23 03/29/24 Lorri Leo, BOMB SQUAD COMMANDER, CANDLES POURER [address] [address] PCP - General Certified Nurse Practitioner 03/30/24 04/20/24 Rebeka Trinidad MD [address] [place], [place] [phone] PCP - General Family Medicine 04/21/24 04/21/24 Lorri Leo APRN, CANDLES POURER [address] [place], [place] [phone] PCP - General Certified Nurse Practitioner 04/22/24 05/30/24 Tani Biggs PAC [address] [place] [address] PCP - General Physician Sock Ironer 05/31/24 Phil Jacobo MD [address] [place] [address] Consulting Physician Neurology 03/07/21 Rajiv Mccormack, KELI [address] [place] [address] Nurse Practitioner Gastroenterology 03/07/21 Alize Acosta APRN, CANDLES POURER [address] [place] [address] Virtual Advanced Care (VAC) PHLEBOTOMY SERVICES REPRESENTATIVE Advanced Practice Nurse 08/30/21 Dayo Chaney MD [address] [place] [address] Microbiology Lab Technician Cardiovascular Disease - Cardiology 09/20/21 02/12/24 Juanita Mercado RN [place] Registered Nurse Cardiology 12/24/21 02/12/24 David Salmon MD [address] [facility] [address] [place] [address] Consulting Physician Endocrinology 01/15/22 Maurilio Farlye MD #[address] [facility] [address] [place] [address] Consulting Physician Colon and Rectal Surgery 09/20/22 Dom Quiñonez MD [address] [place] [address] Consulting Physician Pulmonary Disease 11/19/21 Rachelle Nava, BOMB SQUAD COMMANDER, TRIMMING INSPECTOR [address] [place] [address] Nurse Practitioner Advanced Practice Nurse 07/19/22 Irais Naylor, BOMB SQUAD COMMANDER, CANDLES POURER [address]2 [facility] [address] [place] [address] Nurse Practitioner Cardiology 06/27/23 07/29/24 Sharri Gaspar MD 2 [facility] [address] [place] [address] Consulting Physician Cardiology 04/26/24 Amber Aldrich, BOMB SQUAD COMMANDER, CANDLES POURER [address] [place] [address] Nurse Practitioner Cardiology 07/30/24 documented as of this encounter
--- OUTSIDE RECORDS SUMMARY | 2024-09-20 12:00 | XMS_ITS | Encounter Summary ---
Author Organization [facility] Address [address] [place] [address] Phone Care Team Providers Care Pile Driving Setter Name Role Phone Jackeline Dimas ADJUNCT BUSINESS INSTRUCTOR, EMBROIDERY DESIGNER Primary Care Provider Fiona Martinez MONOTYPE SETTER Unavailable Unavailab Phil Ellis MD Unavailable +[phone] Rajiv Mccormack NP Unavailable Unavailable Renita Quezada RN Unavailable Unavailable Alize Acosta ADJUNCT BUSINESS INSTRUCTOR, EMBROIDERY DESIGNER Unavailable +[phone] Dayo Chaney MD Unavailable Juanita Hauser RN Unavailable Unavaila David Martinez MD Unavailable Emilia Tang MD Primary Care Provider +[phone] Maurilio Farley MD Unavailable Candida Turner MD Unavailable Rebeka Trinidad MD Primary Care Provider + [phone] Dom Quiñonez MD Unavailable Rachelle Nava ADJUNCT BUSINESS INSTRUCTOR, MANAGER STORAGE Unavailable + [phone] Irais Naylor ADJUNCT BUSINESS INSTRUCTOR, EMBROIDERY DESIGNER Unavailable + [phone] Lorri Leo Annetta ADJUNCT BUSINESS INSTRUCTOR, EMBROIDERY DESIGNER Primary Care Provider + [phone] Rebeka Trinidad MD Primary Care Provider + [phone] AhmetAngélicamando Littlejohn ADJUNCT BUSINESS INSTRUCTOR, EMBROIDERY DESIGNER Primary Care Provider +[phone] Sharri Gaspar MD Unavailable Tani Biggs [facility] Primary Care Provider + [phone] Amber Aldrich ADJUNCT BUSINESS INSTRUCTOR, EMBROIDERY DESIGNER Unavailable Reason for Visit * Reason Comments Medication Refill Encounter Details Date Type Department Care Team (Late Contact Info) Description 02/02/2020 Refill [facility] - Primary Care - [place] [address] [place] [address] Belkis Mcnair APRN, [facility] [address] [place] [address] Medication Refill Social History Tobacco Use Types Packs/Day Years Used Date Smoking Tobacco: Every Day Cigarettes 0.5 15 Smokeless Tobacco: Never Comments:quit september 2016 Alcohol Use Standard Drinks/Week Comments Yes 0 (1 standard drink = 0.6 oz pure alcohol) drinks about once a week - 6 + drinks at a time PHQ-2 Answer Date Recorded Total Score - Questions 1-9 0 08/09 Comments No Sex and Gender Information Value Date Recorded Sex Assigned at Female 10/21/2022 4:24 PM CDT Legal Sex Female 10:38 PM CDT Gender Identity Female 10/21/2022 4:24 PM CDT Sexual Orientation Not on file 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 Yes 02/01/2020 11:29 AM TAPPER HAND documented as of this encounter Plan of Treatment Upcoming Encounters Date Type Department Care Team (Late st Contact Info) Description 09/21/2024 3:20 PM CDT Office Visit [facility] Oncology Services [address] [place] [address] Melony Asif, PAC [address] [place] [address] Discharge Disposition: Discharged to home or Selfcare 10/18/2024 1:00 PM CDT Office Visit [facility] - Pulmonology & Sleep Medicine - [place] [address] [place] [address] Dom Quioñnez MD [address] [place] [address] 10/26/2024 1:00 PM CDT Office Visit [facility] - Cardiology - [place] [address] [place] [address] Amber Aldrich, ADJUNCT BUSINESS INSTRUCTOR, EMBROIDERY DESIGNER [address] [place] [address] 11/09/2024 2:00 PM CDT Telemedicine [facility] [address] [place] [address] Alize Acosta, ADJUNCT BUSINESS INSTRUCTOR, EMBROIDERY DESIGNER [address] [place] [address] 11/18/2024 3:45 PM CDT Office Visit [facility] - Endocrinology - [place] [address] [place] [address] David Salmon MD #[address] [address] 03/04/2025 3:10 PM TAPPER HAND [facility] [place] [facility] [place] [address] Dwaine Colon [facility] 03/04/2025 3:30 PM TAPPER HAND Office Visit [facility] - Primary Care - [place] [address] [place] [address] Tani Biggs PAC [address] [place] [address] documented as of this encounter Visit Diagnoses Not on filedocumented in this encounter Additional Health Concerns Infection Onset Date Last Indicated Resolved Time COVID - 19 01/08/2021 01/08/2021 01/28/2021 12:1 6 AM TAPPER HAND COVID - 19 03/12/2021 03/12/2021 04/01/2021 12:1 6 AM TAPPER HAND COVID - 19 12/15/2021 12/15/2021 12/15/2021 7:26 PM CDT COVID - 19 Confirmed 12/15/2021 12/15/2021 022 12:16 AM CDT COVID - 19 04/18/2024 04/18/2024 04/18/2024 10:4 7 PM TAPPER HAND Respiratory Rule-Out 05/06/2024 05/06/2024 025 9:20 AM TAPPER HAND COVID - 19 05/06/2024 05/06/2024 05/06/2024 9:19 AM TAPPER HAND Assessment Noted Time PHQ-9 Depression Total Score: 0 09/01/19 20 11:58 AM CDT documented as of this encounter Care Teams Pile Driving Setter Relationship Specialty Start Date End Date Jackeline Dimas APRN, EMBROIDERY DESIGNER [address] [place], [place] [id number] PCP - General Advanced Practice Nurse 07/31/17 Emilia Tang MD [address] [place], [place] [id number] PCP - General Family Medicine 06/07/22 03/25/23 Rebeka Trinidad MD [address] [place] [address] PCP - General Family Medicine 03/26/23 03/29/24 Lorri Leo APRN, EMBROIDERY DESIGNER [address] [place] [address] PCP - General Certified Nurse Practitioner 03/30/24 04/20/24 Rebeka Trinidad MD [address] [place] [address] PCP - General Family Medicine 04/21/24 04/21/24 Lorri Leo APRN, EMBROIDERY DESIGNER [address] [place] [address] PCP - General Certified Nurse Practitioner 04/22/24 05/30/24 Tani Biggs, PAC [address] [place] [address] PCP - General Physician Accounts Receivable Clerk 05/31/24 Fiona Martinez, [place] Gang Ripsaw Operator 03/01/21 08/23/21 Phil Jacobo MD [address] [place] [address] Consulting Physician Neurology 03/07/21 Rajiv Mccormack, SOLUTIONS SPECIALIST [address] [place] [address] Nurse Practitioner Gastroenterology 03/07/21 Renita Quezada, [place] Gang Ripsaw Operator 05/09/21 08/23/21 Alize Acosta, ADJUNCT BUSINESS INSTRUCTOR, EMBROIDERY DESIGNER [address] [place] [address] Virtual Advanced Care (VAC) RESEARCH GEOLOGIST Advanced Practice Nurse 08/30/21 Dayo Chaney MD [address] [place] [address] Transformer Shop Supervisor Cardiovascular Disease - Cardiology 09/20/21 02/12/24 Juanita Mercado RN [place] Registered Nurse Cardiology 12/24/21 02/12/24 David Salmon MD #[address] [address] Consulting Physician Endocrinology 01/15/22 Maurilio Farley MD #[address] [address] Consulting Physician Colon and Rectal Surgery 09/20/22 Physician, Candida Davis MD [address] [place] [address] Family Medicine 01/25/22 03/18/23 Dom Quiñonez MD [address] [place] [address] Consulting Physician Pulmonary Disease 11/19/21 Rachelle Nava APRN, MANAGER STORAGE [address] [place] [address] Nurse Practitioner Advanced Practice Nurse 07/19/22 Irais Naylor APRN, EMBROIDERY DESIGNER #[address] [address] Nurse Practitioner Cardiology 06/27/23 07/29/24 Sharri Gaspar MD [address] [id number] Consulting Physician Cardiology 04/26/24 Amber Aldrich APRN, EMBROIDERY DESIGNER [address] [place] [address] Nurse Practitioner Cardiology 07/30/24 documented as of this encounter
--- OUTSIDE RECORDS SUMMARY | 2024-09-20 12:00 | XMS_ITS | Encounter Summary ---
Author Organization [facility] Address [address] [place] [address] Phone Care Team Providers Care Supervisor Fusing Room Name Role Phone Jackeline Dimas SPRING BENDER, LARD RENDERER Primary Care Provider Phil Jacobo MD Unavailable [phone] Rajiv Mccormack NP Unavailable Unavailable lAize Acosta SPRING BENDER, LARD RENDERER Unavailable +[phone] Dayo Chaney MD Unavailable Juanita Hauser RN Unavailable UnavailDavid Alexandre MD Unavailable Emilia Tang MD Primary Care Provider [phone] Maurilio Farley MD Unavailable Physician, Candida Davis MD Unavailable Rebeka Trinidad MD Primary Care Provider + [phone] Dom Quiñonez MD Unavailable Rachelle Nava SPRING BENDER, PRINTED CIRCUIT BOARD REWORKER Unavailable + [phone] Irais Naylor SPRING BENDER, LARD RENDERER Unavailable + [phone] Lorri Leo SPRING BENDER, LARD RENDERER Primary Care Provider [phone] Rebeka Trinidad MD Primary Care Provider + [phone] Ahmet Lorri Annetta SPRING BENDER, [facility] Primary Care Provider + [phone] Sahrri Gaspar MD Unavailable Kalyan Tani B [facility] Primary Care Provider [phone] Amber Aldrich APRN, [facility] Unavailable Reason for Visit * Reason Comments Medication Refill Encounter Details Date Type Department Care Team (Late st Contact Info) Description 03/31/2022 Refill [facility] - Endocrinology - [place] [address] [place] [address] David Salmon MD [address] [address] Medication Refill Social History Tobacco [...] 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 No / Unsure 04/01/2022 1:35 PM BRAZING MACHINE OPERATOR documented as of this encounter Miscellaneous Notes * Telephone Encounter - Yesi Leggett RN - 04/01/2022 9:43 AM BRAZING MACHINE OPERATOR Requested Prescriptions Pending Prescriptions Disp Refills ??? Glucose Blood (OneTouch Verio) Strip [Pharmacy Med Name: ONE TOUCH VERIO TEST ST(NEW)100S] 200 Strip Sig: TEST BLOOD SUGAR TWICE DAILY Next appt: 04/30/2022 ING MACHINE OPERATOR documented in this encounter Plan of Treatment Upcoming Encounters Date Type Department Care Team (Late st Contact Info) Description 09/21/2024 3:20 PM CDT [facility] [address] [place] [address] Melony Asif, ESTRELLITA [address] [place] [address] Discharge Disposition: Discharged to home or Selfcare 10/18/2024 1:00 PM CDT [facility] - Pulmonology & Sleep Medicine [facility] [address] [place] [address] Dom Quiñonez MD [address] [place] [address] 10/26/2024 1:00 PM CDT Office Visit [facility] - Cardiology - [place] [address] [place] [address] Amber Aldrich, SPRING BENDER, LARD RENDERER [address] [place] [address] 11/09/2024 2:00 PM CDT Telemedicine [facility] [address] [place] [address] Alize Acosta, SPRING BENDER, LARD RENDERER [address] [place] [address] 11/18/2024 3:45 PM CDT Office Visit [facility] - Endocrinology - [place] [address] [place] [address] David Salmon MD #[address] [phone] 03/04/2025 3:10 PM BRAZING MACHINE OPERATOR Lab [facility] [address] [place] [address] [facility] 03/04/2025 3:30 PM BRAZING MACHINE OPERATOR Office Visit [facility] [address] [place] [address] Tani Biggs PAC [address] [place] [address] documented as of this encounter [...] as recommended. Depression Depression Improving( 2:27 PM BRAZING MACHINE OPERATOR) No Breanne Saldana LCSW Note: [...] 19 04/18/2024 04/18/2024 04/18/2024 10:4 7 PM BRAZING MACHINE OPERATOR Respiratory Rule-Out 05/06/2024 05/06/2024 025 9:20 AM BRAZING MACHINE OPERATOR COVID - 19 05/06/2024 05/06/2024 05/06/2024 9:19 AM BRAZING MACHINE OPERATOR Assessment Noted Time PHQ-9 Depression Total Score: 24 022 3:31 PM BRAZING MACHINE OPERATOR documented as of this encounter Care Teams Supervisor Fusing Room Relationship Specialty Start Date End Date Jackeline Dimas, SPRING BENDER, LARD RENDERER [address] [place] [address] PCP - General Advanced Practice Nurse 07/31/17 Emilia Tang MD [address] [place] [address] PCP - General Family Medicine 06/07/22 03/25/23 Rebeka Trinidad MD [address] [place] [address] PCP - General Family Medicine 03/26/23 03/29/24 Lorri Leo APRN, LARD RENDERER [address] [place] [address] PCP - General Certified Nurse Practitioner 03/30/24 04/20/24 Rebeka Trinidad MD [address] [place] [address] PCP - General Family Medicine 04/21/24 04/21/24 Lorri Leo APRN, LARD RENDERER [address] [place] [address] PCP - General Certified Nurse Practitioner 04/22/24 05/30/24 Tani Biggs, [facility] [address] [place] [address] PCP - General Physician Nitro Worker 05/31/24 Phil Jacobo MD [address] [place] [address] Consulting Physician Neurology 03/07/21 Rajiv Mccormack, KELI [address] [place] [address] Nurse Practitioner Gastroenterology 03/07/21 Alize Acosta APRN, LARD RENDERER [address] [place] [address] Virtual Advanced Care (VAC) KINDER TEACHER Advanced Practice Nurse 08/30/21 Dayo Chaney MD [address] [place] [address] Community Health Worker Cardiovascular Disease - Cardiology 09/20/21 02/12/24 Juanita Mercado, [place] Registered Nurse Cardiology 12/24/21 02/12/24 David Salmon MD #[address] [address] Consulting Physician Endocrinology 01/15/22 Maurilio Farley MD #[address] [address] Consulting Physician Colon and Rectal Surgery 09/20/22 Physician, Candida Davis MD [address] [place] [address] Family Medicine 01/25/22 03/18/23 Dom Quiñonez MD [address] [place] [address] Consulting Physician Pulmonary Disease 11/19/21 Rachelle Nava APRN, PRINTED CIRCUIT BOARD REWORKER [address] [place] [address] Nurse Practitioner Advanced Practice Nurse 07/19/22 Irais Naylor APRN, LARD RENDERER #[address] [address] Nurse Practitioner Cardiology 06/27/23 07/29/24 Sharri Gaspar MD [address] [address] Consulting Physician Cardiology 04/26/24 Amber Aldrich APRN, LARD RENDERER [address] [place] [address] Nurse Practitioner Cardiology 07/30/24 documented as of this encounter
--- OUTSIDE RECORDS SUMMARY | 2024-09-20 12:00 | XMS_ITS | Encounter Summary ---
Author Organization [facility] Address [address] [place] [address] Phone Care Team Providers Care Cream Beater Name Role Phone Jackeline Dimas SIGNALLING AND COMMUNICATIONS ENGINEER, PIER MASTER Primary Care Provider Fiona Martinez RESTAURANT SERVICE MANAGER Unavailable Unavailab Phil Ellis MD Unavailable [phone] Rajiv Mccormack NP Unavailable Unavailable Renita Quezada RN Unavailable Unavailable Alize Acosta SIGNALLING AND COMMUNICATIONS ENGINEER, PIER MASTER Unavailable +[phone] Dayo Chaney MD Unavailable Juanita Hauser RN Unavailable Unavaila David Martinez MD Unavailable Emilia Tang MD Primary Care Provider [phone] Maurilio Farley MD Unavailable Candida Turner MD Unavailable Rebeka Triniadd MD Primary Care Provider + [phone] Dom Quiñonez MD Unavailable Rachelle Nava SIGNALLING AND COMMUNICATIONS ENGINEER, FRANCHISE SALES REPRESENTATIVE Unavailable + [phone] Irais Naylor SIGNALLING AND COMMUNICATIONS ENGINEER, PIER MASTER Unavailable + [phone] Lorri Leo Annetta SIGNALLING AND COMMUNICATIONS ENGINEER, PIER MASTER Primary Care Provider + [phone] Rebeka Trinidad MD Primary Care Provider + [phone] AhmetAngélicamando Littlejohn SIGNALLING AND COMMUNICATIONS ENGINEER, PIER MASTER Primary Care Provider [phone] Sharri Gaspar MD Unavailable Tani Biggs Primary Care Provider + [phone] Amber Aldrich SIGNALLING AND COMMUNICATIONS ENGINEER, PIER MASTER Unavailable Reason for Visit * Reason Comments Medication Refill Encounter Details Date Type Department Care Team (Late Contact Info) Description 02/08/2020 Refill [facility] - Primary Care - [place] [address] [place] [address] Jackeline Dimas, SIGNALLING AND COMMUNICATIONS ENGINEER, [facility] [address] [place] [address] Medication Refill Social History Tobacco [...] 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 No / Unsure 02/08/2020 7:30 AM BRANCH CREDIT COUNSELOR documented as of this encounter Plan of Treatment Upcoming Encounters Date Type Department Care Team (Late Contact Info) Description 09/21/2024 3:20 PM CDT Office Visit [facility] Oncology Services [address] [place] [address] Melony Asif, PAC [address] [place] [address] Discharge Disposition: Discharged to home or Selfcare 10/18/2024 1:00 PM CDT Office Visit [facility] - Pulmonology & Sleep Medicine - [place] [address] [place] [address] Dom Quiñonez MD [address] [place] [address] 10/26/2024 1:00 PM CDT Office Visit [facility] - Cardiology - [address] [place] [address] Amber Aldrich, SIGNALLING AND COMMUNICATIONS ENGINEER, PIER MASTER [address] [place] [address] 11/09/2024 2:00 PM CDT Telemedicine [facility] [address] [place] [address] Alize Acosta, SIGNALLING AND COMMUNICATIONS ENGINEER, PIER MASTER [address] [place] [address] 11/18/2024 3:45 PM CDT Office Visit [facility] - Endocrinology - [place] [address] [place] [address] David Salmon MD #[address] [address] 03/04/2025 3:10 PM BRANCH CREDIT COUNSELOR Lab [facility] - Primary Care - [place] [address] [place] [address] [place] Colon [facility] 03/04/2025 3:30 PM BRANCH CREDIT COUNSELOR Office Visit [facility] - Primary Care - [place] [address] [place] [address] Tani Biggs PAC [address] [place] [address] documented as of this encounter Visit Diagnoses Not on filedocumented in this encounter Additional Health Concerns Infection Onset Date Last Indicated Resolved Time COVID - 19 01/08/2021 01/08/2021 01/28/2021 12:1 6 AM BRANCH CREDIT COUNSELOR COVID - 19 03/12/2021 03/12/2021 04/01/2021 12:1 6 AM BRANCH CREDIT COUNSELOR COVID - 19 12/15/2021 12/15/2021 12/15/2021 7:26 PM CDT COVID - 19 Confirmed 12/15/2021 12/15/2021 022 12:16 AM CDT COVID - 19 04/18/2024 04/18/2024 04/18/2024 10:4 7 PM BRANCH CREDIT COUNSELOR Respiratory Rule-Out 05/06/2024 05/06/2024 025 9:20 AM BRANCH CREDIT COUNSELOR COVID - 19 05/06/2024 05/06/2024 05/06/2024 9:19 AM BRANCH CREDIT COUNSELOR Assessment Noted Time PHQ-9 Depression Total Score: 0 09/01/19 20 11:58 AM CDT documented as of this encounter Care Teams Cream Beater Relationship Specialty Start Date End Date Jackeline Dimas, SIGNALLING AND COMMUNICATIONS ENGINEER, PIER MASTER [address] [place], [place] [address] PCP - General Advanced Practice Nurse 07/31/17 Emilia Tang MD [address] [place], [place] [phone] PCP - General Family Medicine 06/07/22 03/25/23 Rebeka Trinidad MD [address] [place] [address] PCP - General Family Medicine 03/26/23 03/29/24 Lorri Leo APRN, PIER MASTER [address] [place] [address] PCP - General Certified Nurse Practitioner 03/30/24 04/20/24 Rebeka Trinidad MD [address] [place] [address] PCP - General Family Medicine 04/21/24 04/21/24 Lorri Leo APRN, PIER MASTER [address] [place] [address] PCP - General Certified Nurse Practitioner 04/22/24 05/30/24 Tani Biggs, PAC [address] [place] [address] PCP - General Physician Publications Distribution Clerk 05/31/24 Fiona Martinez, [place] Animal Husbandry Manager 03/01/21 08/23/21 Phil Jacobo MD [address] [place] [address] Consulting Physician Neurology 03/07/21 Rajiv Mccormack, HEAD MVA REACTOR OPERATOR [address] [place] [address] Nurse Practitioner Gastroenterology 03/07/21 Renita Quezada, [place] Animal Husbandry Manager 05/09/21 08/23/21 Alize Acosta, SIGNALLING AND COMMUNICATIONS ENGINEER, PIER MASTER [address] [place] [address] Virtual Advanced Care (VAC) PROCUREMENT PROFESSIONAL Advanced Practice Nurse 08/30/21 Dayo Chaney MD [address] [place] [address] Software Configuration Specialist Cardiovascular Disease - Cardiology 09/20/21 02/12/24 Juanita Mercado RN [place] Registered Nurse Cardiology 12/24/21 02/12/24 David Salmon MD #[address] [phone] Consulting Physician Endocrinology 01/15/22 Maurilio Farley MD #[address] [address] Consulting Physician Colon and Rectal Surgery 09/20/22 Physician, Candida Davis MD [address] [place], [place] [address] Family Medicine 01/25/22 03/18/23 Dom Quiñonez MD [address] [place] [address] Consulting Physician Pulmonary Disease 11/19/21 Rachelle Nava APRN, FRANCHISE SALES REPRESENTATIVE [address] [place] [address] Nurse Practitioner Advanced Practice Nurse 07/19/22 Irais Naylor APRN, PIER MASTER [address] [address] Nurse Practitioner Cardiology 06/27/23 07/29/24 Sharri Gaspar MD [address] [address] Consulting Physician Cardiology 04/26/24 Amber Aldrich APRN, PIER MASTER [address] [place] [address] Nurse Practitioner Cardiology 07/30/24 documented as of this encounter
--- OUTSIDE RECORDS SUMMARY | 2024-09-20 12:00 | XMS_ITS | Encounter Summary ---
Author Organization [facility] Address [address] [place] [address] Phone Care Team Providers Care Room Service Food Service Attendant Name Role Phone Jackeline Dimas CONSTRUCTION AREA MANAGER, COMMERCIAL INTERNSHIP Primary Care Provider Phil Jacobo MD Unavailable +[phone] Rajiv Mccormack NP Unavailable Unavailable Alize Acosta CONSTRUCTION AREA MANAGER, COMMERCIAL INTERNSHIP Unavailable +[phone] Dayo Chaney MD Unavailable Juanita Hauser RN Unavailable UnavailDavid Alexandre MD Unavailable Emilia Tang MD Primary Care Provider [phone] Maurilio Farley MD Unavailable Physician, Candida Davis MD Unavailable Rebeka Trinidad MD Primary Care Provider + [phone] Dom Quiñonez MD Unavailable Rachelle Nava CONSTRUCTION AREA MANAGER, MEAT SOAKER Unavailable + [phone] Irais Naylor CONSTRUCTION AREA MANAGER, COMMERCIAL INTERNSHIP Unavailable + [phone] Lorri Leo CONSTRUCTION AREA MANAGER, COMMERCIAL INTERNSHIP Primary Care Provider [phone] Rebeka Trinidad MD Primary Care Provider + [phone] Lorri Leo CONSTRUCTION AREA MANAGER, COMMERCIAL INTERNSHIP Primary Care Provider + [phone] Sharri Gaspar MD Unavailable Tani Biggs [facility] Primary Care Provider + [phone] Amber Aldrich CONSTRUCTION AREA MANAGER, COMMERCIAL INTERNSHIP Unavailable Reason for Visit * Reason Comments Medication Refill Encounter Details Date Type Department Care Team (Late st Contact Info) Description 05/22/2022 Refill [facility] [address] [place] [address] Jackeline Dimas, CONSTRUCTION AREA MANAGER, COMMERCIAL INTERNSHIP [address] [place] [address] Medication Refill Social History Tobacco [...] 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 Unable to assess 05/01/2022 2:58 PM PLANT OPERATOR/SHIFT SUPERVISOR documented as of this encounter Miscellaneous Notes * Telephone Encounter - Adina Barrientos RN - 05/22/2022 10:08 AM CDT Medication failed the protocol, provider to review and approve the medication order if appropriate. Requested Prescriptions Pending Prescriptions Disp Refills busPIRone (BUSPAR) 5 MG Tablet [Pharmacy Med Name: BUSPIRONE 5MG TABLETS] 90 Tablet 0 Sig: TAKE 1 TABLET BY MOUTH THREE TIMES DAILY Buspirone (6 Month Refill Only) Protocol Failed - 05/22/2022 9:59 AM Failed - Patient has established therapy with Buspirone for at least 6 months Passed - No test in the past 12 months or most recent test was negative Passed - No active on record Passed - Visit with relevant provider in past 6 months or upcoming 90 days Recent Visits Date Type Provider Dept 05/21/22 Appointment Alize Acosta APRN, LIDA [facility] 05/20/22 Appointment VIRTUAL ADVANCED CARE NURSE [facility] 05/13/22 Appointment VIRTUAL ADVANCED CARE NURSE [facility] 05/06/22 Appointment VIRTUAL ADVANCED CARE NURSE [facility] 05/01/22 Appointment Alize Acosta APRN, CNP [facility] 04/29/22 Appointment Alize Acosta APRN, LIDA [facility] 04/29/22 Appointment VIRTUAL ADVANCED CARE NURSE [facility] 04/22/22 Appointment VIRTUAL ADVANCED CARE NURSE [facility] 04/15/22 Appointment VIRTUAL ADVANCED CARE NURSE [facility] 04/11/22 Appointment VIRTUAL ADVANCED CARE NURSE [facility] Showing recent visits within past 182 days and meeting all other requirements Future Appointments Date Type Provider Dept 05/27/22 Appointment VIRTUAL ADVANCED CARE NURSE [facility] 06/03/22 Appointment VIRTUAL ADVANCED CARE NURSE [facility] 06/10/22 Appointment VIRTUAL ADVANCED CARE NURSE [facility] 06/17/22 Appointment VIRTUAL ADVANCED CARE NURSE [facility] Showing future appointments within next 90 days and meeting all other requirements Passed - Has an encounter in the past 6 months with a depression or anxiety visit diagnosis documented in this encounter Plan of Treatment Upcoming Encounters Date Type Department Care Team (Late st Contact Info) Description 09/21/2024 3:20 PM CDT Office Visit [facility] Services [address] [place] [address] Melony Asif, [facility] [address] [place] [address] Discharge Disposition: Discharged to home or Selfcare 10/18/2024 1:00 PM CDT [facility] [place] [address] [place] [phone] Dom Quiñonez MD [address] [place] [address] 10/26/2024 1:00 PM CDT [facility] [place] [address] [place] [address] Amber Aldrich, CONSTRUCTION AREA MANAGER, COMMERCIAL INTERNSHIP [address] [place] [address] 11/09/2024 2:00 PM CDT Telemedicine [facility] [address] [place] [address] Alize Acosta, CONSTRUCTION AREA MANAGER, COMMERCIAL INTERNSHIP [address] [place] [address] 11/18/2024 3:45 PM CDT Office Visit [facility] - Endocrinology - [place] [address] [place] [phone] David Salmon MD #[address] [address] 03/04/2025 3:10 PM PLANT OPERATOR/SHIFT SUPERVISOR Lab [facility] - Primary Care - [place] [facility] [place] [address] [facility] 03/04/2025 3:30 PM PLANT OPERATOR/SHIFT SUPERVISOR Office Visit [facility] - Primary Care - [place] [address] [place] [address] Tani Biggs, ESTRELLITA [address] [place] [address] documented as of this encounter Goals Goal Patient Goal Type Associated Problems Recent Progress Patient-Stated? Author Chronic Disease Management Chronic Disease Management Improving( 2:39 PM CDT) No Rneita Quezada, RN Note: Goal: To manage my [...] as recommended. Depression Depression Improving( 2:27 PM PLANT OPERATOR/SHIFT SUPERVISOR) No Breanne Saldana, TELECOMMUNICATIONS NETWORK ENGINEER Note: Goal/Objective: Decrease symptoms of depression associated [...] Intake On track(2023 2:42 PM CDT) Xiomy Gunderson RN Note: [...] 19 04/18/2024 04/18/2024 04/18/2024 10:4 7 PM PLANT OPERATOR/SHIFT SUPERVISOR Respiratory Rule-Out 05/06/2024 05/06/2024 025 9:20 AM PLANT OPERATOR/SHIFT SUPERVISOR COVID - 05/06/2024 05/06/2024 05/06/2024 9:19 AM PLANT OPERATOR/SHIFT SUPERVISOR Assessment Noted Time PHQ-9 Depression Total Score: 24 022 3:31 PM PLANT OPERATOR/SHIFT SUPERVISOR documented as of this encounter Care Teams Room Service Food Service Attendant Relationship Specialty Start Date End Date Jackeline Dimas APRN, COMMERCIAL INTERNSHIP [address] [place] [address] PCP - General Advanced Practice Nurse 07/31/17 Emilia Tang MD [address] [place] [address] PCP - General Family Medicine 06/07/22 03/25/23 Rebeka Trinidad MD [address] [place] [address] PCP - General Family Medicine 03/26/23 03/29/24 Lorri Leo APRN, COMMERCIAL INTERNSHIP [address] [place] [address] PCP - General Certified Nurse Practitioner 03/30/24 04/20/24 Rebeka Trinidad MD [address] [place], [place] [id number] PCP - General Family Medicine 04/21/24 04/21/24 Lorri Leo CONSTRUCTION AREA MANAGER, COMMERCIAL INTERNSHIP [address] [place], [place] [id number] PCP - General Certified Nurse Practitioner 04/22/24 05/30/24 Tani Biggs PAC [address] [place] [address] PCP - General Physician Safety Security Officer 05/31/24 Phil Jacobo MD [address] [place] [address] Consulting Physician Neurology 03/07/21 Rajiv Mccormack, KELI [address] [place] [address] Nurse Practitioner Gastroenterology 03/07/21 Alize Acosta APRN, COMMERCIAL INTERNSHIP [address] [place] [address] Virtual [facility] (VAC) WASHERY BOSS Advanced Practice Nurse 08/30/21 Dayo Chaney MD [address] [place] [address] Furnace Caretaker Cardiovascular Disease - Cardiology 09/20/21 02/12/24 Juanita Mercado, [place] Registered Nurse Cardiology 12/24/21 02/12/24 David Salmon MD #[address] [phone] Consulting Physician Endocrinology 01/15/22 Maurilio Farley MD [address] [address] Consulting Physician Colon and Rectal Surgery 09/20/22 Physician, Candida Davis MD [address] [place] [address] Family Medicine 01/25/22 03/18/23 Dmo Quiñonez MD [address] [place] [address] Consulting Physician Pulmonary Disease 11/19/21 Rachelle Nava CONSTRUCTION AREA MANAGER, MEAT SOAKER [address] [place] [address] Nurse Practitioner Advanced Practice Nurse 07/19/22 Irais Naylor, CONSTRUCTION AREA MANAGER, COMMERCIAL INTERNSHIP [address]2 [facility] [address] [address] Nurse Practitioner Cardiology 06/27/23 07/29/24 Sharri Gaspar MD 2 [facility] [address] [address] Consulting Physician Cardiology 04/26/24 Amber Aldrich, CONSTRUCTION AREA MANAGER, COMMERCIAL INTERNSHIP [address] [place] [address] Nurse Practitioner Cardiology 07/30/24 documented as of this encounter
--- OUTSIDE RECORDS SUMMARY | 2024-09-20 12:00 | XMS_ITS | Encounter Summary ---
Author Organization [facility] Address [address] [place] [address] Phone Care Team Providers Care Paper Maker Name Role Phone Phil Jacobo MD Unavailable [phone] Rajiv Mccormack NP Unavailable Unavailable Alize Acosta DIMENSION STONE QUARRY SUPERVISOR, INSPECTOR MISSILE Unavailable [phone] Dayo Chaney MD Unavailable Juanita Hauser RN Unavailable Unavaila David Martinez MD Unavailable Emilia Tang MD Primary Care Provider [phone] Maurilio Farley MD Unavailable PhysicianCandida MD Unavailable Rebeka Trinidad MD Primary Care Provider + [phone] Dom Quiñonez MD Unavailable Rachelle Nava DIMENSION STONE QUARRY SUPERVISOR, CDA TEACHER Unavailable + [phone] Irais Naylor DIMENSION STONE QUARRY SUPERVISOR, INSPECTOR MISSILE Unavailable + [phone] Lorri Leo DIMENSION STONE QUARRY SUPERVISOR, INSPECTOR MISSILE Primary Care Provider + [phone] Rebeka Trinidad MD Primary Care Provider + [phone] Lorri Leo DIMENSION STONE QUARRY SUPERVISOR, INSPECTOR MISSILE Primary Care Provider + [phone] Sharri Gaspar MD Unavailable Tani Biggs Primary Care Provider + [phone] ValdemarAmber Dinora WELLS, INSPECTOR MISSILE Unavailable Reason for Visit * Reason Comments Medication Refill Encounter Details Date Type Department Care Team (Late st Contact Info) Description 12/01/2022 Refill [facility] - Primary Care - [place] [address] [place] [address] Emilia Tang MD [address] [place] [address] Medication Refill Social History Tobacco [...] 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 Unable to assess 12/03/2022 1:23 PM CDT documented as of this encounter Miscellaneous Notes * Telephone Encounter - Adina Barrientos RN - 12/02/2022 8:48 AM CDT The original prescription was discontinued on 09/30/2022 by Tani Biggs PAC for the following reason: Alternate therapy. documented in this encounter Plan of Treatment Upcoming Encounters Date Type Department Care Team (Late st Contact Info) Description 09/21/2024 3:20 PM CDT [facility] [address] [place] [address] Melony Asif PAC [address] [place] [address] Discharge Disposition: Discharged to home or Selfcare 10/18/2024 1:00 PM CDT Office Visit [facility] - Pulmonology & Sleep Medicine - [place] [address] [place] [address] Dom Quiñonez MD [address] [place] [address] 10/26/2024 1:00 PM CDT [facility] - [place] [address] [place] [address] Amber Aldrich APRN, INSPECTOR MISSILE [address] [place] [address] 11/09/2024 2:00 PM CDT Telemedicine [facility] [address] [place] [address] Alize Acosta APRN, INSPECTOR MISSILE [address] [place] [address] 11/18/2024 3:45 PM CDT Office Visit [facility] - Endocrinology - [place] [address] [place] [address] David Salmon MD [address] [address] 03/04/2025 3:10 PM EMBEDDED PROCESSOR Lab [facility] [place] [address] [place] [address] [facility] 03/04/2025 3:30 PM EMBEDDED PROCESSOR Office [facility] [place] [address] [place] [address] Tani Biggs PAC [address] [place] [address] documented as of this encounter [...] Worsening(0 08/30/2024 1:58 PM CDT) Xiomy Gunderson, SEBASTIAN Note: Goal: To manage my chronic heart [...] diet Depression Depression Improving(0 03/15/2022 2:27 PM EMBEDDED PROCESSOR) No Breanne Saldana, ELECTRICIAN SHOP Note: Goal/Objective: Decrease symptoms of depression associated [...] as of this encounter Visit Diagnoses Diagnosis Anxiety and depression Dysthymic disorder documented in this encounter Additional Health Concerns Infection Onset Date Last Indicated Resolved Time COVID - 19 04/18/2024 04/18/2024 04/18/2024 10:4 7 PM EMBEDDED PROCESSOR Respiratory Rule-Out 05/06/2024 05/06/2024 025 9:20 AM EMBEDDED PROCESSOR COVID - 19 05/06/2024 05/06/2024 05/06/2024 9:19 AM EMBEDDED PROCESSOR Assessment Noted Time PHQ-9 Depression Total Score: 18 08/30/2 023 9:24 AM CDT documented as of this encounter Care Teams Paper Maker Relationship Specialty Start Date End Date Emilia Tang MD [address] [place] [address] PCP - General Family Medicine 06/07/22 03/25/23 Rebeka Trinidad MD [address] [place] [address] PCP - General Family Medicine 03/26/23 03/29/24 Lorri Leo APRN, INSPECTOR MISSILE [address] [place] [address] PCP - General Certified Nurse Practitioner 03/30/24 04/20/24 Rebeka Trinidad MD [address] [place] [address] PCP - General Family Medicine 04/21/24 04/21/24 Lorri Leo APRN, INSPECTOR MISSILE [address] [place] [address] PCP - General Certified Nurse Practitioner 04/22/24 05/30/24 aTni Biggs, PAC [address] [place] [address] PCP - General Physician Indoor Landscape Architect 05/31/24 Phil Jacobo MD [address] [place] [address] Consulting Physician Neurology 03/07/21 Rajiv Mccormack, RN HOUSE SUPERVISOR [address] [place] [address] Nurse Practitioner Gastroenterology 03/07/21 Alize Acosta APRN, INSPECTOR MISSILE [address] [place] [address] Virtual [facility] (VAC) REGIONAL INTERMODAL TRUCK DRIVER Advanced Practice Nurse 08/30/21 Dayo Chaney MD [address] [place] [address] Pbx Wire Chief Cardiovascular Disease - Cardiology 09/20/21 02/12/24 Juanita Mercado RN [place] Registered Nurse Cardiology 12/24/21 02/12/24 David Salmon MD #[address] [address] Consulting Physician Endocrinology 01/15/22 Maurilio Farley MD #[address] [address] Consulting Physician Colon and Rectal Surgery 09/20/22 Physician, Candida Davis MD [address] [place] [address] Family Medicine 01/25/22 03/18/23 Dom Quiñonez MD [address] [place] [address] Consulting Physician Pulmonary Disease 11/19/21 Rachelle Nava APRN, CDA TEACHER [address] [place] [address] Nurse Practitioner Advanced Practice Nurse 07/19/22 Irais Naylor APRN, INSPECTOR MISSILE [address] [address] Nurse Practitioner Cardiology 06/27/23 07/29/24 Sharri Gaspar MD 2 [facility] [address] [address] Consulting Physician Cardiology 04/26/24 Amber Aldrich APRN, INSPECTOR MISSILE [address] [place] [address] Nurse Practitioner Cardiology 07/30/24 documented as of this encounter
--- OUTSIDE RECORDS SUMMARY | 2024-09-20 12:00 | XMS_ITS | Encounter Summary ---
Author Organization [facility] Address [address] [place] [address] Phone Care Team Providers Care Special Effects Designer Name Role Phone Jackeline Dimas FINAL FINISHER, ACID ADJUSTER Primary Care Provider Phil Jacobo MD Unavailable [phone] Rajiv Mccormack NP Unavailable Unavailable Alize Acosta FINAL FINISHER, ACID ADJUSTER Unavailable [phone] Dayo Chaney MD Unavailable Juanita Hauser RN Unavailable UnavailDavid Alexandre MD Unavailable Emilia Tang MD Primary Care Provider [phone] Maurilio Farley MD Unavailable Physician, Candida Davis MD Unavailable Rebeka Trinidad MD Primary Care Provider + [phone] Dom Quiñonez MD Unavailable Rachelle Nava FINAL FINISHER, PHYSICIAN/ALLERGY/IMMUNOLOGY Unavailable + [phone] Irais Naylor FINAL FINISHER, ACID ADJUSTER Unavailable + [phone] Lorri Leo FINAL FINISHER, ACID ADJUSTER Primary Care Provider [phone] Rebeka Trinidad MD Primary Care Provider + [phone] Ahmet Lorri Annetta FINAL FINISHER, [facility] Primary Care Provider + [phone] Sharri Gaspar MD Unavailable Tani Biggs [facility] Primary Care Provider [phone] Amber Aldrich FINAL FINISHER, [facility] Unavailable Reason for Visit * Reason Comments Medication Refill Encounter Details Date Type Department Care Team (Late st Contact Info) Description 02/19/2022 [facility]ill 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 No / Unsure 02/22/2022 2:34 PM SENIOR TECHNOLOGIST documented as of this encounter Miscellaneous Notes * Telephone Encounter - Yoana Rojas, RN - 02/19/2022 2:49 PM CST Dosing changed to 50 mg 01/15/22. OR TECHNOLOGIST documented in this encounter Plan of Treatment Upcoming Encounters Date Type Department Care Team (Late st Contact Info) Description 09/21/2024 3:20 PM CDT [facility] [address] [place] [address] Melony Asif Stacey, PAC [address] [place] [address] Discharge Disposition: Discharged to home or Selfcare 10/18/2024 1:00 PM CDT [facility] - Pulmonology & Sleep Medicine - [place] [address] [place] [address] Dom Quiñonez MD [address] [place] [address] 10/26/2024 1:00 PM CDT Office Visit [facility] - Cardiology - [place] [address] [place] [address] Amber Aldrich APRN, ACID ADJUSTER [address] [place] [address] 11/09/2024 2:00 PM CDT Telemedicine [facility] [address] [place] [address] Alize Acosta APRN, ACID ADJUSTER [address] [place] [address] 11/18/2024 3:45 PM CDT Office Visit [facility] - Endocrinology - [place] [address] [place] [address] Dvaid Salmon MD #[address] [address] 03/04/2025 3:10 PM SENIOR TECHNOLOGIST Lab [facility] [place] [address] [place] [address] Lab, [facility] 03/04/2025 3:30 PM SENIOR TECHNOLOGIST Office Visit [facility] - [place] [address] [place] [address] Tani Biggs, ESTRELLITA [address] [place] [address] documented as of this encounter [...] recommended. Depression Depression Improving( 2:27 PM SENIOR TECHNOLOGIST) Breanne Barragan, PRIVATE HOUSEHOLD WORKER Note: Goal/Objective: Decrease symptoms of depression associated [...] 04/18/2024 04/18/2024 04/18/2024 10:4 7 PM SENIOR TECHNOLOGIST Respiratory Rule-Out 05/06/2024 05/06/2024 025 9:20 AM SENIOR TECHNOLOGIST COVID - 19 05/06/2024 05/06/2024 05/06/2024 9:19 AM SENIOR TECHNOLOGIST Assessment Noted Time PHQ-9 Depression Total Score: 24 022 3:31 PM SENIOR TECHNOLOGIST documented as of this encounter Care Teams Special Effects Designer Relationship Specialty Start Date End Date Jackeline Dimas, FINAL FINISHER, ACID ADJUSTER [address] [place] [address] PCP - General Advanced Practice Nurse 07/31/17 Emilia Tang MD [address] [place] [address] PCP - General Family Medicine 06/07/22 03/25/23 Rebeka Trinidad MD [address] [address] PCP - General Family Medicine 03/26/23 03/29/24 Lorri Leo APRN, ACID ADJUSTER [address] [place] [address] PCP - General Certified Nurse Practitioner 03/30/24 04/20/24 Rebeka Trinidad MD [address] [place] [address] PCP - General Family Medicine 04/21/24 04/21/24 Lorri Leo APRN, ACID ADJUSTER [address] [place] [address] PCP - General Certified Nurse Practitioner 04/22/24 05/30/24 Tani Biggs, PAC [address] [place] [address] PCP - General Physician Service Or Work Dispatcher 05/31/24 Phil Jacobo MD [address] [place] [address] Consulting Physician Neurology 03/07/21 Rajiv Mccormack, SCRAPER OPERATOR [address] [place] [address] Nurse Practitioner Gastroenterology 03/07/21 Alize Acosta APRN, ACID ADJUSTER [address] [place] [address] [place] [address] Virtual Advanced Care (VAC) TRUCKMAN Advanced Practice Nurse 08/30/21 Dayo Chaney MD [address] [place] [address] Regulatory Affairs Assistant Cardiovascular Disease - Cardiology 09/20/21 02/12/24 Juanita Mercado, [place] Registered Nurse Cardiology 12/24/21 02/12/24 David Salmon MD #[address] [address] Consulting Physician Endocrinology 01/15/22 Maurilio Farley MD #[address] [address] Consulting Physician Colon and Rectal Surgery 09/20/22 PhysicianCandida MD [address] [place] [address] Family Medicine 01/25/22 03/18/23 Dom Quiñonez MD [address] [place] [address] Consulting Physician Pulmonary Disease 11/19/21 Rachelle Nava APRN, PHYSICIAN/ALLERGY/IMMUNOLOGY [address] [place] [address] Nurse Practitioner Advanced Practice Nurse 07/19/22 Irais Naylor APRN, ACID ADJUSTER #[address] [address] Nurse Practitioner Cardiology 06/27/23 07/29/24 Sharri Gaspar MD [address] [address] Consulting Physician Cardiology 04/26/24 Amber Aldrich APRN, ACID ADJUSTER [address] [place] [address] Nurse Practitioner Cardiology 07/30/24 documented as of this encounter
--- OUTSIDE RECORDS SUMMARY | 2024-09-20 12:00 | XMS_ITS | Encounter Summary ---
Author Organization [facility] Address [address] [place] [address] Phone Care Team Providers Care Accountant Machine Processing Name Role Phone Phil Jacobo MD Unavailable [phone] Rajiv Mccormack NP Unavailable Unavailable Alize Acosta APRN, FAMILY PHYSICIAN Unavailable David Salmon MD Unavailable Maurilio Farley MD Unavailable Dom Quiñonez MD Unavailable Rachelle Nava APRN, FURNACE TENDER Unavailable + [phone] Sharri Gaspar MD Unavailable Tani Biggs PAC Primary Care Provider [phone] Amber Adlrich WEIGHMASTER LEAD, FAMILY PHYSICIAN Unavailable Encounter Details Date Type Department Care Team (Late st Contact Info) Description 09/16/2024 Results Follow-Up [facility] Oncology Services [address] [place] [address] Melony Asif Stacey, PAC [address] [place] [address] VITAMIN B12, FERRITIN, IRON,TRANSFERN,CALC. TIBC,%SAT, Additional followed-up results: 4 Social History Tobacco Use Types Packs/Day Years Used Date Smoking Tobacco: Some Days Cigarettes 1 37.1 Started: 1984; Last attempted to quit: 04/12/2021 Passive Smoke Exposure: Never Smokeless Tobacco: Never Alcohol Use Standard Drinks/Week Comments Not Currently 0 (1 standard drink = 0.6 oz pur e alcohol) Last drink in 2020 [facility] Utilities Answer Date Recorded In the [...] 03/22/2024 How often do you attend chur or yarsanism services? 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 on file Not on file documented as of this encounter Plan of Treatment Upcoming Encounters Date Type Department Care Team (Late st Contact Info) Description 09/21/2024 3:20 PM CDT [facility] [address] [place] [address] Melony Asif PAC [address] [place] [address] Discharge Disposition: Discharged to home or Selfcare 10/18/2024 1:00 PM CDT [facility] - Pulmonology & Sleep Medicine - [place] [employer] [address] [place] [address] Dom Quiñonez MD [address] [place] [address] 10/26/2024 1:00 PM CDT Office Visit [facility] - Cardiology - [place] [employer] [address] [place] [address] Amber Aldrich, WEIGHMASTER LEAD, FAMILY PHYSICIAN [address] [place] [address] 11/09/2024 2:00 PM CDT Telemedicine [facility] [address] [place] [address] Alize Acosta, WEIGHMASTER LEAD, FAMILY PHYSICIAN [address] [place] [address] 11/18/2024 3:45 PM CDT Office Visit [facility] - Endocrinology - [place] [employer] [address] [place] [address] David Salmon MD #[address] [place] [address] 03/04/2025 3:10 PM BINDER FIXER Lab [facility] Primary [facility] [place] [address] [place] [address] [facility], [facility] 03/04/2025 3:30 PM BINDER FIXER Office Visit [facility] - [place] [address] [place] [address] Tani Biggs PAC [address] [place] [address] documented as of this encounter Goals Goal Patient Goal Type Associated Problems Recent Progress Patient-Stated? Author ACTIVITY Activity No change(08/08 2:42 PM CDT) Yes Maritza Vanegas, RN Note: Bonny will walk five days a week. Goal Reviewed with: Bonny Readiness to change: Department associated with goal: [facility] Steps to achieve goal: [...] making a change Department associated with goal: [facility] Steps to [...] diet Depression Depression Improving(0 03/15/2022 2:27 PM BINDER FIXER) No Breanne Saldana LCSW Note: Goal/Objective: Decrease symptoms of depression associated with grief and loss as well as the increase of anxiety and panic with follow up with out patient counseling. Anticipated Time Frame for Goal Completion: 2 week Depression and Anxiety Depression On track(07/13 4:30 PM CDT) Yes rAiela Hurtado, DIET AID Note: I don't have no energy Goal/Objective: Decrease depression. Anticipated Time Frame for Goal Completion: 6 months Goal Reviewed with: patient Readiness to change: Ready to change Department associated with goal: [facility] Steps to [...] filedocumented in this encounter Additional Health Concerns Assessment Noted Time PHQ-9 Depression Total Score: 19 025 3:55 PM CDT documented as of this encounter Care Teams Accountant Machine Processing Relationship Specialty Start Date End Date Tani Biggs, PAC [address] [place] [address] PCP - General Physician Senior Web Services Developer 05/31/24 Phil Jacobo MD [address] [place] [address] Consulting Physician Neurology 03/07/21 Rajiv Mccormack, KELI [address] [place] [address] Nurse Practitioner Gastroenterology 03/07/21 Alize Acosta APRN, FAMILY PHYSICIAN [address] [place], [place] [address] Virtual Advanced Care (VAC) POLYMERIZATION ENGINEER Advanced Practice Nurse 08/30/21 David Salmon MD #[address] [address] Consulting Physician Endocrinology 01/15/22 Maurilio Farley MD #[address] [address] Consulting Physician Colon and Rectal Surgery 09/20/22 Dom Quiñonez MD [address] [place] [address] Consulting Physician Pulmonary Disease 11/19/21 Rachelle Nava APRN, FURNACE TENDER [address] [place] [address] Nurse Practitioner Advanced Practice Nurse 07/19/22 Sharri Gaspar MD [address] [address] Consulting Physician Cardiology 04/26/24 Amber Aldrich APRN, [facility] [address] [place] [address] Nurse Practitioner Cardiology 07/30/24 documented as of this encounter
--- OUTSIDE RECORDS SUMMARY | 2024-09-20 12:00 | XMS_ITS | Encounter Summary ---
Author Organization [facility] Address [address] [place] [address] Phone Care Team Providers Care Senior Software Manager Name Role Phone Jackeline Dimas PUBLIC POLICY ASSOCIATE, DIRECTOR OF CASINO Primary Care Provider Phil Jacobo MD Unavailable [phone] Rajiv Mccormack NP Unavailable Unavailable Alize Acosta PUBLIC POLICY ASSOCIATE, DIRECTOR OF CASINO Unavailable +[phone] Dayo Chaney MD Unavailable Juanita Hauser RN Unavailable UnavailDavid Alexadnre MD Unavailable Emilia Tang MD Primary Care Provider [phone] Maurilio Farley MD Unavailable Physician, Candida Davis MD Unavailable Rebeka Trinidad MD Primary Care Provider + [phone] Dom Quiñonez MD Unavailable Rachelle Nava PUBLIC POLICY ASSOCIATE, LEGAL PARAPROFESSIONAL Unavailable + [phone] Irais Naylor PUBLIC POLICY ASSOCIATE, DIRECTOR OF CASINO Unavailable + [phone] Lorri Leo PUBLIC POLICY ASSOCIATE, DIRECTOR OF CASINO Primary Care Provider [phone] Rebeka Trinidad MD Primary Care Provider + [phone] Ahmet Lorri M PUBLIC POLICY ASSOCIATE, [facility] Primary Care Provider + [phone] Sharri Gaspar MD Unavailable Kalyan Tani B [facility] Primary Care Provider [phone] Amber Aldrich APRN, [facility] Unavailable Reason for Visit * Reason Onset Date Comments Medication Refill 04/19/2022 Encounter Details Date Type Department Care Team (Late st Contact Info) Description 04/19/2022 Refill [facility] Advanced Care [address] [place] [phone] Meli Rosenthal, RN [place] Medication Refill Social History Tobacco Use Types [...] 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 No / Unsure 04/11/2022 12:32 PM WARHEAD MAINTENANCE SPECIALIST documented as of this encounter Miscellaneous Notes * Telephone Encounter - Meli Rosenthal, RN - 04/19/2022 4:27 PM WARHEAD MAINTENANCE SPECIALIST Patient requesting refill of hydroxyzine 25mg. Last filled on 03/23/22 for #60 with 0 refills. Last routine visit: 04/11/22 with [facility]/testin02/23/22 Upcoming visits: none currently scheduled with [facility] PUBLIC POLICY ASSOCIATE Refill pending for your review and approval. All questions and concerns were answered. Will await recommendations. EAD MAINTENANCE SPECIALIST documented in this encounter Plan of Treatment Upcoming Encounters Date Type Department Care Team (Late st Contact Info) Description 09/21/2024 3:20 PM CDT [facility] [address] [place] [address] Melony Asif PAC [address] [place] [address] Discharge Disposition: Discharged to home or Selfcare 10/18/2024 1:00 PM CDT [facility] - Pulmonology & Sleep Medicine - [place] [address] [place] [address] Dom Quiñonez MD [address] [place] [address] 10/26/2024 1:00 PM CDT Office Visit [facility] - Cardiology - [place] [address] [place] [address] Amber Aldrich, PUBLIC POLICY ASSOCIATE, DIRECTOR OF CASINO [address] [place] [address] 11/09/2024 2:00 PM CDT Telemedicine [facility] [address] [place] [address] Alize Acosta, PUBLIC POLICY ASSOCIATE, DIRECTOR OF CASINO [address] [place] [address] 11/18/2024 3:45 PM CDT Office Visit [facility] - Endocrinology - [place] [address] [place] [address] David Salmon MD #[address] [address] 03/04/2025 3:10 PM WARHEAD MAINTENANCE SPECIALIST Lab [facility] [place] [address] [place] [address] [facility], [facility] 03/04/2025 3:30 PM WARHEAD MAINTENANCE SPECIALIST Office Visit [facility] - [place] [address] [place] [address] Tani Biggs PAC [address] [place] [address] documented as of this encounter [...] as recommended. Depression Depression Improving( 2:27 PM WARHEAD MAINTENANCE SPECIALIST) No Breanne Saldana LCSW Note: Goal/Objective: [...] as of this encounter Visit Diagnoses Diagnosis Primary insomnia Persistent disorder of initiating or maintaining sleep documented in this encounter Additional Health Concerns Infection Onset Date Last Indicated Resolved Time COVID - 19 04/18/2024 04/18/2024 04/18/2024 10:4 7 PM WARHEAD MAINTENANCE SPECIALIST Respiratory Rule-Out 05/06/2024 05/06/2024 025 9:20 AM WARHEAD MAINTENANCE SPECIALIST COVID - 19 05/06/2024 05/06/2024 05/06/2024 9:19 AM WARHEAD MAINTENANCE SPECIALIST Assessment Noted Time PHQ-9 Depression Total Score: 24 022 3:31 PM WARHEAD MAINTENANCE SPECIALIST documented as of this encounter Care Teams Senior Software Manager Relationship Specialty Start Date End Date Jackeline Dimas, PUBLIC POLICY ASSOCIATE, DIRECTOR OF CASINO [address] [place] [address] PCP - General Advanced Practice Nurse 07/31/17 Emilia Tang MD [address] [place] [address] PCP - General Family Medicine 06/07/22 03/25/23 Rebeka Trinidad MD [address] [place] [address] PCP - General Family Medicine 03/26/23 03/29/24 Lorri Leo APRN, DIRECTOR OF CASINO [address] [place] [address] PCP - General Certified Nurse Practitioner 03/30/24 04/20/24 Rebeka Trinidad MD [address] [place] [address] PCP - General Family Medicine 04/21/24 04/21/24 Lorri Leo APRN, DIRECTOR OF CASINO [address] [place] [address] PCP - General Certified Nurse Practitioner 04/22/24 05/30/24 Tani Biggs, [facility] [address] [place] [address] PCP - General Physician Guide Plant 05/31/24 Phil Jacobo MD [address] [place] [address] Consulting Physician Neurology 03/07/21 Rajiv Mccormack, KELI [address] [place] [address] Nurse Practitioner Gastroenterology 03/07/21 Alize Acosta APRN, DIRECTOR OF CASINO [address] [place] [address] Virtual Advanced Care (VAC) ACID CONDENSER Advanced Practice Nurse 08/30/21 Dayo Chaney MD [address] [place] [address] Gas Line Servicer Cardiovascular Disease - Cardiology 09/20/21 02/12/24 Juanita Mercado, [place] Registered Nurse Cardiology 12/24/21 02/12/24 David Salmon MD #[address] [address] Consulting Physician Endocrinology 01/15/22 Maurilio Farley MD #[address] [address] Consulting Physician Colon and Rectal Surgery 09/20/22 PhysicianCandida MD [address] [place] [address] Family Medicine 01/25/22 03/18/23 Dom Quiñonez MD #[address] [place] [address] Consulting Physician Pulmonary Disease 11/19/21 Rachelle Nava APRN, LEGAL PARAPROFESSIONAL [address] [place] [address] Nurse Practitioner Advanced Practice Nurse 07/19/22 Irais Naylor APRN, DIRECTOR OF CASINO #[address] [address] Nurse Practitioner Cardiology 06/27/23 07/29/24 Sharri Gaspar MD 2 [facility] [address] [address] Consulting Physician Cardiology 04/26/24 Amber Aldrich APRN, DIRECTOR OF CASINO [address] [place] [address] Nurse Practitioner Cardiology 07/30/24 documented as of this encounter
--- OUTSIDE RECORDS SUMMARY | 2024-09-20 12:00 | XMS_ITS | Encounter Summary ---
Author Organization [facility] Address [address] [place] [address] Phone Care Team Providers Care Railroad Construction Director Name Role Phone Jcakeline Dimas GEAR HOBBER SET UP OPERATOR, FACE HARDENER Primary Care Provider Phil Jacobo MD Unavailable [phone] Rajiv Mccormack NP Unavailable Unavailable Alize Acosta GEAR HOBBER SET UP OPERATOR, FACE HARDENER Unavailable [phone] Dayo Chaney MD Unavailable Juanita Hauser RN Unavailable UnavailDavid Alexandre MD Unavailable Emilia Tang MD Primary Care Provider [phone] Maurilio Farley MD Unavailable Physician, Candida Davis MD Unavailable Rebeka Trinidad MD Primary Care Provider + [phone] Dom Quiñonez MD Unavailable Rachelle Nava GEAR HOBBER SET UP OPERATOR, NEUROPSYCHOLOGY SERVICE DIRECTOR Unavailable + [phone] Irais Naylor GEAR HOBBER SET UP OPERATOR, FACE HARDENER Unavailable + [phone] Lorri Leo GEAR HOBBER SET UP OPERATOR, FACE HARDENER Primary Care Provider [phone] Rebeka Trinidad MD Primary Care Provider + [phone] AhmetLorri Annetta GEAR HOBBER SET UP OPERATOR, [facility] Primary Care Provider + [phone] Sharri Gaspar MD Unavailable Kalyan Tani B [facility] Primary Care Provider [phone] Amber Aldrich APRN, [facility] Unavailable Reason for Visit * Reason Comments Medication Refill Encounter Details Date Type Department Care Team (Late st Contact Info) Description 02/09/2022 Refill [facility] - [facility] - [place] [address] [place] [address] David Salmon MD #[address] [address] Medication Refill Social History Tobacco [...] 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 No / Unsure 02/06/2022 3:43 PM ASSISTANT DEAN documented as of this encounter Miscellaneous Notes * Telephone Encounter - Yesi Leggett RN - 02/11/2022 8:37 AM ASSISTANT DEAN Requested Prescriptions Pending Prescriptions Disp Refills ??? TRUEplus 5-Bevel Pen [place] 32G X 4 MM Misc [Pharmacy Med Name: TRUEPLUS 5- BEVEL PEN NEEDLE [id number]] 100 Each 1 Sig: USE DAILY DIRECTED Next appt: 04/30/2022 STANT DEAN documented in this encounter Plan of Treatment Upcoming Encounters Date Type Department Care Team (Late st Contact Info) Description 09/21/2024 3:20 PM CDT [facility] [address] [place] [address] Melony Asif, PAC [address] [place] [address] Discharge Disposition: Discharged to home or Selfcare 10/18/2024 1:00 PM CDT [facility] - Pul[facility]ology & Sleep Medicine [facility] [address] [place] [address] Dom Quiñonez MD [address] [place] [address] 10/26/2024 1:00 PM CDT Office Visit [facility] - Cardiology - [place] [address] [place] [address] Amber Aldrich, GEAR HOBBER SET UP OPERATOR, FACE HARDENER [address] [place] [address] 11/09/2024 2:00 PM CDT Telemedicine [facility] [address] [place] [address] Alize Acosta, GEAR HOBBER SET UP OPERATOR, FACE HARDENER [address] [place] [address] 11/18/2024 3:45 PM CDT Office Visit [facility] - Endocrinology - [place] [address] [place] [address] David Salmon MD #[address] [address] 03/04/2025 3:10 PM ASSISTANT DEAN Lab [facility] [place] [address] [place] [address] [facility], [facility] 03/04/2025 3:30 PM ASSISTANT DEAN Office Visit [facility] [place] [address] [place] [address] Tani Biggs PAC [address] [place] [address] documented as of this encounter [...] as recommended. Depression Depression Improving( 2:27 PM ASSISTANT DEAN) No Breanne Saldana LCSW Note: Goal/Objective: Decrease [...] 19 04/18/2024 04/18/2024 04/18/2024 10:4 7 PM ASSISTANT DEAN Respiratory Rule-Out 05/06/2024 05/06/2024 025 9:20 AM ASSISTANT DEAN COVID - 19 05/06/2024 05/06/2024 05/06/2024 9:19 AM ASSISTANT DEAN Assessment Noted Time PHQ-9 Depression Total Score: 24 022 3:31 PM ASSISTANT DEAN documented as of this encounter Care Teams Railroad Construction Director Relationship Specialty Start Date End Date Jackeline Dimas, GEAR HOBBER SET UP OPERATOR, FACE HARDENER [address] [place] [address] PCP - General Advanced Practice Nurse 07/31/17 Emilia Tang MD [address] [place] [address] PCP - General Family Medicine 06/07/22 03/25/23 Rebeka Trinidad MD [address] [place] [address] PCP - General Family Medicine 03/26/23 03/29/24 Lorri Leo APRN, FACE HARDENER [address] [place] [address] PCP - General Certified Nurse Practitioner 03/30/24 04/20/24 Rebeka Trinidad MD [address] [place] [address] PCP - General Family Medicine 04/21/24 04/21/24 Lorri Leo APRN, FACE HARDENER [address] [place] [address] PCP - General Certified Nurse Practitioner 04/22/24 05/30/24 Tani Biggs PAC [address] [place] [address] PCP - General Physician Customs And Border Protection Officer 05/31/24 Phil Jacobo MD [address] [place] [address] Consulting Physician Neurology 03/07/21 Rajiv Mccormack, SOLAR SYSTEMS DESIGNER [address] [place] [address] Nurse Practitioner Gastroenterology 03/07/21 Alize Acosta, [place], FACE HARDENER [address] [place] [address] Virtual Advanced Care (VAC) CELL TENDER Advanced Practice Nurse 08/30/21 Dayo Chaney MD [address] [place] [address] Motor Equipment Sergeant Cardiovascular Disease - Cardiology 09/20/21 02/12/24 Juanita Mercado, [place] Registered Nurse Cardiology 12/24/21 02/12/24 David Salmon MD #[address] [address] Consulting Physician Endocrinology 01/15/22 Maurilio Farley MD #[address] [address] Consulting Physician Colon and Rectal Surgery 09/20/22 Physician, Candida Davis MD [address] [place] [address] Family Medicine 01/25/22 03/18/23 Dom Quiñonez MD [address] [place] [address] Consulting Physician Pulmonary Disease 11/19/21 Rachelle Nava APRN, NEUROPSYCHOLOGY SERVICE DIRECTOR [address] [place] [address] Nurse Practitioner Advanced Practice Nurse 07/19/22 Irais Naylor APRN, FACE HARDENER #[address] [address] Nurse Practitioner Cardiology 06/27/23 07/29/24 Sharri Gaspar MD 2 [facility] [address] [address] Consulting Physician Cardiology 04/26/24 Amber Aldrich APRN, FACE HARDENER [address] [place] [address] Nurse Practitioner Cardiology 07/30/24 documented as of this encounter
== END 2024-09-20 11:53 | disposition home or self-care (01) ==
PROVIDERS: Visit Provider Nurse Practitioner Adult Health
DX: M47.816 Spondylosis without myelopathy or radiculopathy, lumbar region (principal); M48.061 Spinal stenosis, lumbar region without neurogenic claudication
CPT/HCPCS: 72110

== ENCOUNTER 2024-11-11 14:34 | Outpatient (CLI) | payer MEDICARE, SELFPAY ==
--- NOTE | ~2024-11-11 | CT_ITS ---
EXAMINATION: [id number] DATE: 11/11/2024 14:55 INDICATION: Spinal stenosis, lumbar region. Surgical planning. TECHNIQUE: Computed tomography (CT) of the lumbar spine was performed without intravenous contrast. Automated exposure control and iterative reconstruction technique were employed. The dose-length product was 1010.80 mGy-cm. COMPARISON: Lumbar spine radiographs 09/20/2024 FINDINGS: There is a 3 mm stone in left kidney. There are surgical changes of right kidney. There is a 4 mm stone in right kidney. Alignment is normal. Vertebral body heights are normal. Intervertebral disc heights are normal. The following disc levels are specifically discussed: L1-L2: The disc does not extend beyond the endplate margin. There is mild bilateral facet joint osteoarthritis. There is no neural foraminal stenosis. There is no central canal stenosis. L2-L3: The disc does not extend beyond the endplate margin. There is mild bilateral facet joint osteoarthritis. There is no neural foraminal stenosis. There is no central canal stenosis. L3-L4: The disc is bulging. There is mild right and moderate left facet joint osteoarthritis. There is mild bilateral neural foraminal stenosis. There is mild central canal stenosis. L4-L5: The disc is bulging. There is severe bilateral facet joint osteoarthritis. There is mild bilateral neural foraminal stenosis. There is mild central canal stenosis. L5-S1: The disc is bulging. There is severe bilateral facet joint osteoarthritis. There is moderate bilateral neural foraminal stenosis. There is mild central canal stenosis. IMPRESSION: 1. Moderate lower lumbar spondylosis. Reviewed, dictated and finalized at location E.
--- OUTSIDE RECORDS SUMMARY | 2024-11-11 14:43 | XMS_ITS | Encounter Summary ---
Author Organization [facility] Address [address] [place] [address] Phone Care Team Providers Care Commander Internal Affairs Name Role Phone Jackeline Dimas SIMONIZER, BOILER ATTENDANT Primary Care Provider Fiona Martinez VIRTUAL ASSISTANT Unavailable Unavailab Phil Ellis MD Unavailable +[phone] Rajiv Mccormack NP Unavailable Unavailable Renita Quezada RN Unavailable Unavailable Alize Acosta SIMONIZER, BOILER ATTENDANT Unavailable +[phone] Dayo Chaney MD Unavailable Juanita Hauser RN Unavailable Unavaila David Martinez MD Unavailable Emilia Tang MD Primary Care Provider [phone] Maurilio Farley MD Unavailable Candida Turner MD Unavailable Rebeka Trinidad MD Primary Care Provider + [phone] Dom Quiñonez MD Unavailable Rachelle Nava SIMONIZER, WET INSPECTOR OPTICAL GLASS Unavailable + [phone] Irais Naylor SIMONIZER, BOILER ATTENDANT Unavailable +[phone] Lorri Leo SIMONIZER, BOILER ATTENDANT Primary Care Provider + [phone] Rebeka Trinidad MD Primary Care Provider [phone] Lorri Leo SIMONIZER, BOILER ATTENDANT Primary Care Provider +[phone] Sharri Gaspar MD Unavailable Tani Biggs Primary Care Provider + [phone] Amber Aldrich SIMONIZER, BOILER ATTENDANT Unavailable Reason for Visit * Reason Comments Medication Refill Encounter Details Date Type Department Care Team (Late st Contact Info) Description 05/09/2021 [facility] [place] #2 [place] [id number] Jackeline Dimas, SIMONIZER, BOILER ATTENDANT [address] [place] [address] Medication Refill Social History Tobacco Use Types [...] 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 No / Unsure 05/07/2021 2:03 PM PRODUCT TRANSFER PUMPER documented as of this encounter Plan of Treatment Upcoming Encounters Date Type Department Care Team (Latest Contact Info) Description 11/12/2024 9:00 AM CDT [facility] 1 [place] [address] Amber Aldrich APRN, BOILER ATTENDANT #2 [place] [address] Discharge Disposition: Discharged to home or Selfcare 11/12/2024 9:15 AM CDT [facility]ment [facility] 1 [place] [address] Amber Aldrich APRN, BOILER ATTENDANT #2 [place] [address] Discharge Disposition: Discharged to home or Selfcare 11/12/2024 9:30 AM CDT Hospital [facility] Cardiology Stress 1 [place] [address] Amber Aldrich APRN, BOILER ATTENDANT #2 [place] [address] 11/12/2024 10:00 AM CDT Appointment [facility] Nuclear Medicine 1 [place] [address] Amber Aldrich APRN, BOILER ATTENDANT #2 [place] [address] Discharge Disposition: Discharged to home or Selfcare 11/17/2024 2:00 PM CDT Telemedicine [facility] [address] [place] [address] Alize Acosta, SIMONIZER, BOILER ATTENDANT [address] [place] [address] 11/18/2024 3:45 PM CDT Office Visit [facility] - Endocrinology - [place] #2 [facility] [address] David Salmon MD #2 [facility] [address] [place] [address] 01/03/2025 11:30 AM CDT Office Visit [facility] - Neurology - [place] #2 [facility] [place] [address] Rachelle Nava, SIMONIZER, WET INSPECTOR OPTICAL GLASS #2 [place] [address] 03/04/2025 3:10 PM PRODUCT TRANSFER PUMPER Lab [facility] Primary Care - [place] [facility] [place] [address] [facility] 03/04/2025 3:30 PM PRODUCT TRANSFER PUMPER Office Visit [facility] Primary Care - [place] [address] [place] [address] Tani Biggs, ESTRELLITA [address] [place] [address] 03/17/2025 1:30 PM PRODUCT TRANSFER PUMPER [facility] [address] [place] [address] Melony Asif, PAC [address] [place] [address] Discharge Disposition: Discharged to home or Selfcare 03/25/2025 1:20 PM PRODUCT TRANSFER PUMPER [facility] [address] [place] [address] Melony Asif, PAC [address] [place] [address] Discharge Disposition: Discharged to home or Selfcare 04/25/2025 2:00 PM PRODUCT TRANSFER PUMPER Office [facility] Medical [facility] - Cardiology - [place] #[address] [place] [address] Laisha Griffin, DO 2 [facility] RA[address] [address] 07/18/2025 1:00 PM CDT Office Visit [facility] - Pulmonology & Sleep Medicine - [place] #2 [place] [address] Dom Quiñonez MD #2 [place] [address] documented as of this encounter Goals Goal [...] 19 04/18/2024 04/18/2024 04/18/2024 10:4 7 PM PRODUCT TRANSFER PUMPER Respiratory Rule-Out 05/06/2024 05/06/2024 025 9:20 AM PRODUCT TRANSFER PUMPER COVID - 19 05/06/2024 05/06/2024 05/06/2024 9:19 AM PRODUCT TRANSFER PUMPER Assessment Noted Time PHQ-9 Depression Total Score: 0 09/01/19 20 11:58 AM CDT documented as of this encounter Care Teams Commander Internal Affairs Relationship Specialty Start Date End Date Jackeline Dimas SIMONIZER, BOILER ATTENDANT [address] [place] [address] PCP - General Advanced Practice Nurse 07/31/17 Emilia Tang MD [address] [place] [address] PCP - General Family Medicine 06/07/22 03/25/23 Rebeka Trinidad MD [address] [place] [address] PCP - General Family Medicine 03/26/23 03/29/24 Lorri Leo APRN, BOILER ATTENDANT [address] [place] [address] PCP - General Certified Nurse Practitioner 03/30/24 04/20/24 Rebeka Trinidad MD [address] [place] [address] PCP - General Family Medicine 04/21/24 04/21/24 Lorri Leo, SIMONIZER, BOILER ATTENDANT [address] [place] [address] PCP - General Certified Nurse Practitioner 04/22/24 05/30/24 Tani Biggs, PAC [address] [place] [address] PCP - General Physician Program Administrator 05/31/24 Fiona Martinez, MAR[place] Eye Clinic Manager 03/01/21 08/23/21 Phil Jacobo MD #2 [place] [address] Consulting Physician Neurology 03/07/21 Rajiv Mccormack, KELI #2 [place] [address] Nurse Practitioner Gastroenterology 03/07/21 Renita Quezada, SEBA[place] Eye Clinic Manager 05/09/21 08/23/21 Alize Acosta, SIMONIZER, BOILER ATTENDANT [address] [place] [address] Virtual Advanced Care (VAC) DELIVERY DEPARTMENT SUPERVISOR Advanced Practice Nurse 08/30/21 Dayo Chaney MD [address] [place] [address] Category Manager Cardiovascular Disease - Cardiology 09/20/21 02/12/24 Juanita Mercado, [place] Registered Nurse Cardiology 12/24/21 02/12/24 David Salmon MD #[address] [address] Consulting Physician Endocrinology 01/15/22 Maurilio Farley MD #[address] [address] Consulting Physician Colon and Rectal Surgery 09/20/22 PhysicianCandida MD [address] [place] [address] Family Medicine 01/25/22 03/18/23 Dom Quiñonez MD #2 [place] [address] Consulting Physician Pulmonary Disease 11/19/21 Rachelle Nava APRN, WET INSPECTOR OPTICAL GLASS #2 [place] [address] Nurse Practitioner Advanced Practice Nurse 07/19/22 Irais Naylor, SIMONIZER, BOILER ATTENDANT #[address] [address] Nurse Practitioner Cardiology 06/27/23 07/29/24 Sharri Gaspar MD [address] [address] Consulting Physician Cardiology 04/26/24 Amber Aldrich APRN, BOILER ATTENDANT #2 [place] [address] Nurse Practitioner Cardiology 07/30/24 documented as of this encounter
--- OUTSIDE RECORDS SUMMARY | 2024-11-11 14:44 | XMS_ITS | Encounter Summary ---
Author Organization [facility] Address [address] [place] [address] Phone Care Team Providers Care Spent Grain Dryer Name Role Phone Phil Jacobo MD Unavailable [phone] Rajiv Mccormack NP Unavailable Unavailable Alize Acosta LINK ASSEMBLER, MUSEUM LIBRARIAN Unavailable [phone] Dayo Chaney MD Unavailable Juanita Hauser RN Unavailable Unavaila David Martinez MD Unavailable Emilia Tang MD Primary Care Provider [phone] Maurilio Farley MD Unavailable PhysicianCandida MD Unavailable Rebeka Trinidad MD Primary Care Provider + [phone] Dom Quiñonez MD Unavailable Rachelle Nava LINK ASSEMBLER, MED PEDS Unavailable + [phone] Irais Naylor LINK ASSEMBLER, MUSEUM LIBRARIAN Unavailable + [phone] Lorri Leo LINK ASSEMBLER, MUSEUM LIBRARIAN Primary Care Provider + [phone] Rebeka Trinidad MD Primary Care Provider + [phone] Lorri Leo LINK ASSEMBLER, MUSEUM LIBRARIAN Primary Care Provider + [phone] Sharri Gaspar MD Unavailable Tani Biggs Primary Care Provider + [phone] Valdemar Amber Louise LINK ASSEMBLER, MUSEUM LIBRARIAN Unavailable Reason for Visit * Reason Comments Medication Refill Encounter Details Date Type Department Care Team (Late st Contact Info) Description 07/25/2022 Refill [facility] Medical [facility] - Primary Care - [place] [address] [place] [address] Jackeline Dimas, LINK ASSEMBLER, [facility] [address] [place] [address] Medication Refill Social History Tobacco [...] 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 Nuclear Medicine [address] [place] [address] Amber Aldrich APRN, MUSEUM LIBRARIAN #2 [place] [address] Discharge Disposition: Discharged to home or Selfcare 11/12/2024 9:30 AM CDT Hospital Encounter [facility] Cardiology Stress [address] [place] [address] Amber Aldrich APRN, MUSEUM LIBRARIAN #2 [place] [address] 11/12/2024 10:00 AM CDT Appointment [facility] Nuclear Medicine [address] [place] [address] Amber Aldrich APRN, MUSEUM LIBRARIAN #[address] [place] [address] Discharge Disposition: Discharged to home or Selfcare 11/17/2024 2:00 PM CDT Telemedicine [facility] [address] [place] [address] Alize Acosta, RUSSELL, MUSEUM LIBRARIAN [address] [place] [address] 11/18/2024 3:45 PM CDT Office Visit [facility] Endocrinology [facility] #2 [place] [address] David Salmon MD #[address] [address] 01/03/2025 11:30 AM CDT Office Visit [facility] Neurology [facility] #2 [place] [address] Rachelle Nava, LINK ASSEMBLER, MED PEDS #2 [place] [address] 03/04/2025 3:10 PM EXTRUDER OPERATOR MULTIPLE Lab [facility] [place] [address] [place] [address] [facility] 03/04/2025 3:30 PM EXTRUDER OPERATOR MULTIPLE Office Visit [facility] - [place] [address] [place] [address] Tani Biggs, ESTRELLITA [address] [place] [address] 03/17/2025 1:30 PM EXTRUDER OPERATOR MULTIPLE Lab [facility] Oncology Services [address] [place] [address] Melony Asif PAC [address] [place] [address] Discharge Disposition: Discharged to home or Selfcare 03/25/2025 1:20 PM EXTRUDER OPERATOR MULTIPLE Office Visit [facility] Oncology Services [address] [place] [address] Melony Asif August, PAC [address] [place] [address] Discharge Disposition: Discharged to home or Selfcare 04/25/2025 2:00 PM EXTRUDER OPERATOR MULTIPLE Office Visit [facility] - Cardiology - [place] #2 [place] [address] Laisha Griffin, DO [address] [address] 07/18/2025 1:00 PM CDT Office Visit [facility] - Pulmonology & Sleep Medicine [facility] #2 [place] [address] Dom Quiñonez MD #2 [place] [address] documented as of this encounter Goals Goal [...] as recommended. Depression Depression Improving( 2:27 PM EXTRUDER OPERATOR MULTIPLE) No Breanne Saldana LCSW Note: Goal/Objective: Decrease [...] 19 04/18/2024 04/18/2024 04/18/2024 10:4 7 PM EXTRUDER OPERATOR MULTIPLE Respiratory Rule-Out 05/06/2024 05/06/2024 025 9:20 AM EXTRUDER OPERATOR MULTIPLE COVID - 19 05/06/2024 05/06/2024 05/06/2024 9:19 AM EXTRUDER OPERATOR MULTIPLE Assessment Noted Time PHQ-9 Depression Total Score: 24 022 3:31 PM EXTRUDER OPERATOR MULTIPLE documented as of this encounter Care Teams Spent Grain Dryer Relationship Specialty Start Date End Date Emilia Tang MD [address] [place] [address] PCP - General Family Medicine 06/07/22 03/25/23 Rebeka Trinidad MD [address] [place] [address] PCP - General Family Medicine 03/26/23 03/29/24 Lorri Leo APRN, MUSEUM LIBRARIAN [address] [place] [address] PCP - General Certified Nurse Practitioner 03/30/24 04/20/24 Rebeka Trinidad MD [address] [place] [address] PCP - General Family Medicine 04/21/24 04/21/24 Lorri Leo APRN, MUSEUM LIBRARIAN [address] [place] [address] PCP - General Certified Nurse Practitioner 04/22/24 05/30/24 Tani Biggs PAC [address] [place] [address] PCP - General Physician Rn Post Partum 05/31/24 Phil Jacobo MD #2 [place] [address] Consulting Physician Neurology 03/07/21 Rajiv Mccormack, GUIDE DOG MOBILITY INSTRUCTOR #[address] [place] [address] Nurse Practitioner Gastroenterology 03/07/21 Alize Acosta, RUSSELL, MUSEUM LIBRARIAN [address] [place] [address] Virtual Advanced Care (VAC) SHRIMP POND LABORER Advanced Practice Nurse 08/30/21 Dayo Chaney MD [address] [place] [address] Employee Communications Intern Cardiovascular Disease - Cardiology 09/20/21 02/12/24 Juanita Mercado, [place] Registered Nurse Cardiology 12/24/21 02/12/24 David Salmon MD #[address] [address] Consulting Physician Endocrinology 01/15/22 Maurilio Farley MD #[address] [address] Consulting Physician Colon and Rectal Surgery 09/20/22 Physician, Candida Davis MD [address] [place] [address] Family Medicine 01/25/22 03/18/23 Dom Quiñonez MD #2 [place] [address] Consulting Physician Pulmonary Disease 11/19/21 Rachelle Nava APRN, MED PEDS #2 [place] [address] Nurse Practitioner Advanced Practice Nurse 07/19/22 Irais Naylor APRN, MUSEUM LIBRARIAN #2 [facility] [address] [place] [address] Nurse Practitioner Cardiology 06/27/23 07/29/24 Sharri Gaspar, MD 2 [facility] [address] [address] Consulting Physician Cardiology 04/26/24 Amber Aldrich APRN, LIDA #2 [place] [address] Nurse Practitioner Cardiology 07/30/24 documented as of this encounter
--- OUTSIDE RECORDS SUMMARY | 2024-11-11 14:44 | XMS_ITS | Encounter Summary ---
Author Organization [facility] Address [address] [place] [address] Phone Care Team Providers Care Photo Tech Name Role Phone Jackeline Dimas BUSINESS OWNER/ENGINEER, CARPENTER ASSISTANT INSTALLER Primary Care Provider Fiona Martinez HAND IRONER Unavailable Unavailab Phil Ellis MD Unavailable [phone] Rajiv Mccormack NP Unavailable Unavailable Renita Quezada RN Unavailable Unavailable Alize Acosta BUSINESS OWNER/ENGINEER, CARPENTER ASSISTANT INSTALLER Unavailable [phone] Dayo Chaney MD Unavailable Juanita Hauser RN Unavailable Unavaila David Martinez MD Unavailable Emilia Tang MD Primary Care Provider [phone] Maurilio Farley MD Unavailable Candida Turner MD Unavailable Rebeka Trinidad MD Primary Care Provider + [phone] Dom Quiñonez MD Unavailable Rachelle Nava BUSINESS OWNER/ENGINEER, INSURANCE CLAIMS ADJUSTER Unavailable + [phone] Irais Naylor BUSINESS OWNER/ENGINEER, CARPENTER ASSISTANT INSTALLER Unavailable +[phone] Lorri Leo Annetta BUSINESS OWNER/ENGINEER, CARPENTER ASSISTANT INSTALLER Primary Care Provider + [phone] Rebeka Trinidad MD Primary Care Provider + [phone] AhmetAngélicamando Littlejohn BUSINESS OWNER/ENGINEER, CARPENTER ASSISTANT INSTALLER Primary Care Provider [phone] Sharri Gaspar MD Unavailable Tani Biggs [facility] Primary Care Provider + [phone] Amber Aldrich BUSINESS OWNER/ENGINEER, CARPENTER ASSISTANT INSTALLER Unavailable Reason for Visit * Reason Comments Medication Refill Encounter Details Date Type Department Care Team (Late st Contact Info) Description 02/08/2020 Refill [facility] - Primary Care - [place] [address] [place] [address] Jackeline Dimas, BUSINESS OWNER/ENGINEER, [facility] [address] [place] [address] Medication Refill Social History Tobacco [...] 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 No / Unsure 02/08/2020 7:30 AM PERSONAL COMPUTER NETWORK ENGINEER documented as of this encounter Plan of Treatment Upcoming Encounters Date Type Department Care Team (Latest Contact Info) Description 11/12/2024 9:00 AM CDT [facility] [address] [place] [address] Amber Aldrich APRN, CARPENTER ASSISTANT INSTALLER #[address] [place] [address] Discharge Disposition: Discharged to home or Selfcare 11/12/2024 9:15 AM CDT [facility] [address] [place] [address] Amber Aldrich APRN, CARPENTER ASSISTANT INSTALLER #2 [place] [address] Discharge Disposition: Discharged to home or Selfcare 11/12/2024 9:30 AM CDT [facility] Cardiology Stress [address] [place] [address] Amber Aldrich APRN, CARPENTER ASSISTANT INSTALLER #[address] [place] [address] 11/12/2024 10:00 AM CDT [facility] Nuclear Medicine [address] [place] [address] Amber Aldrich APRN, CARPENTER ASSISTANT INSTALLER #[address] [place] [address] Discharge Disposition: Discharged to home or Selfcare 11/17/2024 2:00 PM CDT Telemedicine [facility] [address] [place] [address] Alize Acosta, BUSINESS OWNER/ENGINEER, CARPENTER ASSISTANT INSTALLER [address] [place] [address] 11/18/2024 3:45 PM CDT Office Visit [facility] - Endocrinology - [place] [address] [place] [address] David Salmon MD #[address] [address] 01/03/2025 11:30 AM CDT Office Visit [facility] - Neurology - [place] [address] [place] [address] Rachelle Nava, BUSINESS OWNER/ENGINEER, INSURANCE CLAIMS ADJUSTER #[address] [place] [address] 03/04/2025 3:10 PM PERSONAL COMPUTER NETWORK ENGINEER Lab [facility] Primary Care - [place] [facility] [place] [address] [facility] 03/04/2025 3:30 PM PERSONAL COMPUTER NETWORK ENGINEER Office Visit [facility] Primary Care - [place] [address] [place] [address] Tani Biggs PAC [address] [place] [address] [address] 03/17/2025 1:30 PM PERSONAL COMPUTER NETWORK ENGINEER [facility] [address] [place] [address] Melony Asif PAC [address] [place] [address] Discharge Disposition: Discharged to home or Selfcare 03/25/2025 1:20 PM PERSONAL COMPUTER NETWORK ENGINEER [facility] [address] [place] [address] Melony Asif, PAC [address] [place] [address] Discharge Disposition: Discharged to home or Selfcare 04/25/2025 2:00 PM PERSONAL COMPUTER NETWORK ENGINEER [facility] - Cardiology - [place] #[address] [place] [address] Laisha Griffin, DO [address] [address] 07/18/2025 1:00 PM CDT Office Visit [facility] - Pulmonology & Sleep Medicine [facility] #2 [place] [address] Dom Quiñonez MD #2 [place] [address] documented as of this encounter Visit Diagnoses Not on filedocumented in this encounter Additional Health Concerns Infection Onset Date Last Indicated Resolved Time COVID - 19 01/08/2021 01/08/2021 01/28/2021 12:1 6 AM PERSONAL COMPUTER NETWORK ENGINEER COVID - 19 03/12/2021 03/12/2021 04/01/2021 12:1 6 AM PERSONAL COMPUTER NETWORK ENGINEER COVID - 19 12/15/2021 12/15/2021 12/15/2021 7:26 PM CDT COVID - 19 Confirmed 12/15/2021 12/15/2021 022 12:16 AM CDT COVID - 19 04/18/2024 04/18/2024 04/18/2024 10:4 7 PM PERSONAL COMPUTER NETWORK ENGINEER Respiratory Rule-Out 05/06/2024 05/06/2024 025 9:20 AM PERSONAL COMPUTER NETWORK ENGINEER COVID - 19 05/06/2024 05/06/2024 05/06/2024 9:19 AM PERSONAL COMPUTER NETWORK ENGINEER Assessment Noted Time PHQ-9 Depression Total Score: 0 09/01/19 20 11:58 AM CDT documented as of this encounter Care Teams Photo Tech Relationship Specialty Start Date End Date Jackeline Dimas, BUSINESS OWNER/ENGINEER, CARPENTER ASSISTANT INSTALLER [address] [place] [address] PCP - General Advanced Practice Nurse 07/31/17 Emilia Tang MD [address] [place] [address] PCP - General Family Medicine 06/07/22 03/25/23 Rebeka Trinidad MD [address] [place] [address] PCP - General Family Medicine 03/26/23 03/29/24 Lorri Leo, BUSINESS OWNER/ENGINEER, CARPENTER ASSISTANT INSTALLER [address] [place] [address] PCP - General Certified Nurse Practitioner 03/30/24 04/20/24 Rebeka Trinidad MD [address] [place] [address] PCP - General Family Medicine 04/21/24 04/21/24 Lorri Leo BUSINESS OWNER/ENGINEER, CARPENTER ASSISTANT INSTALLER [address] [place] [address] PCP - General Certified Nurse Practitioner 04/22/24 05/30/24 Tani Biggs, PAC [address] [place] [address] PCP - General Physician Clinical Education Specialist 05/31/24 Fiona Martinez, MARSHA [place] Floor Molder 03/01/21 08/23/21 Phil Jacobo MD #2 [place] [address] Consulting Physician Neurology 03/07/21 Rajiv Mccormack, SUBSTATION OPERATOR TRANSFORMING #2 [place] [address] Nurse Practitioner Gastroenterology 03/07/21 Renita Quezada, RN [place] Floor Molder 05/09/21 08/23/21 Alize Acosta, BUSINESS OWNER/ENGINEER, CARPENTER ASSISTANT INSTALLER [address] [place] [address] Virtual Advanced Care (VAC) PRESS HELPER Advanced Practice Nurse 08/30/21 Dayo Chaney MD [address] [place] [address] Specification Manager Cardiovascular Disease - Cardiology 09/20/21 02/12/24 Juanita Mercado RN [place] Registered Nurse Cardiology 12/24/21 02/12/24 David Salmon MD #[address] [address] Consulting Physician Endocrinology 01/15/22 Maurilio Farley MD #[address] [address] Consulting Physician Colon and Rectal Surgery 09/20/22 PhysicianCandida MD [address] [place], [place] [address] Family Medicine 01/25/22 03/18/23 Dom Quiñonez MD #2 [place] [address] Consulting Physician Pulmonary Disease 11/19/21 Rachelle Nava APRN, INSURANCE CLAIMS ADJUSTER #2 [place] [address] Nurse Practitioner Advanced Practice Nurse 07/19/22 Irais Naylor APRN, CARPENTER ASSISTANT INSTALLER #2 [facility] [address] [facility] [address] [place] [address] Nurse Practitioner Cardiology 06/27/23 07/29/24 Sharri Gaspar MD [address] [place] [address] Consulting Physician Cardiology 04/26/24 Amber Aldrich APRN, CARPENTER ASSISTANT INSTALLER #[address] [place] [address] Nurse Practitioner Cardiology 07/30/24 documented as of this encounter
--- OUTSIDE RECORDS SUMMARY | 2024-11-11 14:44 | XMS_ITS | Encounter Summary ---
Author Organization [facility] Address [address] [place] [address] Phone Care Team Providers Care Bilingual Inside Sales Representative Name Role Phone Jackeline Dimas TERMINAL MANAGER, STAFF TOXICOLOGIST Primary Care Provider Fiona Martinez LABORER VINEYARD Unavailable Unavailab Phil Ellis MD Unavailable +[phone] Rajiv Mccormack NP Unavailable Unavailable Renita Quezada RN Unavailable Unavailable Alize Acosta TERMINAL MANAGER, STAFF TOXICOLOGIST Unavailable +[phone] Dayo Chaney MD Unavailable Juanita Hauser RN Unavailable Unavaila David Martinez MD Unavailable Emilia Tang MD Primary Care Provider [phone] Maurilio Farley MD Unavailable Candida Turner MD Unavailable Rebeka Trinidad MD Primary Care Provider + [phone] Dom Quiñonez MD Unavailable Rachelle Nava TERMINAL MANAGER, BROOM HANDLE DIPPER Unavailable + [phone] Irais Naylor TERMINAL MANAGER, STAFF TOXICOLOGIST Unavailable +[phone] Lorri Leo Annetta TERMINAL MANAGER, STAFF TOXICOLOGIST Primary Care Provider + [phone] Rebeka Trinidad MD Primary Care Provider +[phone] AhmetAngélicamando Littlejohn TERMINAL MANAGER, STAFF TOXICOLOGIST Primary Care Provider +[phone] Sharri Gaspar MD Unavailable Tani Biggs 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 on file Not [...] Info) Description 11/12/2024 9:00 AM CDT [facility] [address] [place] [address] Amber Aldrich APRN, STAFF TOXICOLOGIST #2 [place] [address] Discharge Disposition: Discharged to home or Selfcare 11/12/2024 9:15 AM CDT Appointment [facility] Nuclear Medicine [address] [place] [address] Amber Aldrich APRN, STAFF TOXICOLOGIST #[address] [place] [address] Discharge Disposition: Discharged to home or Selfcare 11/12/2024 9:30 AM CDT Hospital Encounter [facility] Cardiology Stress [address] [place] [address] Amber Aldrich APRN, STAFF TOXICOLOGIST #[address] [place] [address] 11/12/2024 10:00 AM CDT Appointment [facility] Nuclear Medicine [address] [place] [address] Amber Aldrich APRN, STAFF TOXICOLOGIST #[address] [place] [address] Discharge Disposition: Discharged to home or Selfcare 11/17/2024 2:00 PM CDT Telemedicine [facility] [address] [place] [address] Alize Acosta, TERMINAL MANAGER, STAFF TOXICOLOGIST [address] [place] [address] 11/18/2024 3:45 PM CDT Office Visit [facility] - Endocrinology - [place] [address] [place] [address] David Salmon MD #[address] [address] 01/03/2025 11:30 AM CDT Office Visit [facility] Neurology - [place] [address] [place] [address] Rachelle Nava APRN, BROOM HANDLE DIPPER #2 [place] [address] 03/04/2025 3:10 PM CONTRACT ASSOCIATE MANAGER Lab [facility] Primary Care - [place] [address] [place] [address] [facility] 03/04/2025 3:30 PM CONTRACT ASSOCIATE MANAGER Office Visit [facility] Primary [facility] - [place] [address] [place] [address] Tani Biggs PAC [address] [place] [address] 03/17/2025 1:30 PM CONTRACT ASSOCIATE MANAGER Lab [facility] - Cancer Center Oncology Services [address] [place] [address] Melony Asif PAC [address] [place] [address] Discharge Disposition: Discharged to home or Selfcare 03/25/2025 1:20 PM CONTRACT ASSOCIATE MANAGER [facility] [address] [place] [address] Hanna Asife Stacey, [facility] [address] [place] [address] Discharge Disposition: Discharged to home or Selfcare 04/25/2025 2:00 PM CONTRACT ASSOCIATE MANAGER Office Visit [facility] Cardiology [facility] #2 [place] [address] Laisha Griffin, DO [address] [address] 07/18/2025 1:00 PM CDT Office Visit [facility] Pulmonology & Sleep Medicine [facility] #2 [place] [address] Dom Quiñonez MD #2 [place] [address] documented as of this encounter Visit Diagnoses Not on filedocumented in this encounter Additional Health Concerns Infection Onset Date Last Indicated Resolved Time COVID - 19 01/08/2021 01/08/2021 01/28/2021 12:1 6 AM CONTRACT ASSOCIATE MANAGER COVID - 19 03/12/2021 03/12/2021 04/01/2021 12:1 6 AM CONTRACT ASSOCIATE MANAGER COVID - 19 12/15/2021 12/15/2021 12/15/2021 7:26 PM CDT COVID - 19 Confirmed 12/15/2021 12/15/2021 022 12:16 AM CDT COVID - 19 04/18/2024 04/18/2024 04/18/2024 10:4 7 PM CONTRACT ASSOCIATE MANAGER Respiratory Rule-Out 05/06/2024 05/06/2024 025 9:20 AM CONTRACT ASSOCIATE MANAGER COVID - 19 05/06/2024 05/06/2024 05/06/2024 9:19 AM CONTRACT ASSOCIATE MANAGER Assessment Noted Time PHQ-9 Depression Total Score: 0 09/01/19 20 11:58 AM CDT documented as of this encounter Care Teams Bilingual Inside Sales Representative Relationship Specialty Start Date End Date Jackeline Dimas APRN, STAFF TOXICOLOGIST [address] [place] [address] PCP - General Advanced Practice Nurse 07/31/17 Emilia Tang MD [address] [place] [address] PCP - General Family Medicine 06/07/22 03/25/23 Rebeka Trinidad MD [address] [place] [address] PCP - General Family Medicine 03/26/23 03/29/24 Lorri Leo APRN, STAFF TOXICOLOGIST [address] [place] [address] PCP - General Certified Nurse Practitioner 03/30/24 04/20/24 Rebeka Trinidad MD [address] [place] [address] PCP - General Family Medicine 04/21/24 04/21/24 Lorri Leo APRN, STAFF TOXICOLOGIST [address] [place] [address] PCP - General Certified Nurse Practitioner 04/22/24 05/30/24 Tani Biggs, PAC [address] [place] [address] PCP - General Physician Food Services Manager 05/31/24 Fiona Martinez LSW [place] Real Estate Investor 03/01/21 08/23/21 Phil Jacobo MD #2 [place] [address] Consulting Physician Neurology 03/07/21 Rajiv Mccormack, KELI #[address] [place] [address] Nurse Practitioner Gastroenterology 03/07/21 Renita Quezada RN [place] Real Estate Investor 05/09/21 08/23/21 Alize Acosta APRN, STAFF TOXICOLOGIST [address] [place] [address] Virtual Advanced Care (VAC) MACHINE CHAIN MAKER Advanced Practice Nurse 08/30/21 Dayo Chaney MD [address] [place] [address] Supply Chain Manager Cardiovascular Disease - Cardiology 09/20/21 02/12/24 Juanita Mercado, SEBASTIAN [place] Registered Nurse Cardiology 12/24/21 02/12/24 David Salmon MD #[address] [address] Consulting Physician Endocrinology 01/15/22 Maurilio Farley MD #[address] [address] Consulting Physician Colon and Rectal Surgery 09/20/22 PhysicianCandida MD [address] [place] [address] Family Medicine 01/25/22 03/18/23 Dom Quiñonez MD #2 [place] [address] Consulting Physician Pulmonary Disease 11/19/21 Rachelle Nava, TERMINAL MANAGER, BROOM HANDLE DIPPER #2 [place] [address] Nurse Practitioner Advanced Practice Nurse 07/19/22 Irais Naylor, TERMINAL MANAGER, STAFF TOXICOLOGIST #2 [facility] [address] [place] [address] Nurse Practitioner Cardiology 06/27/23 07/29/24 Sharri Gaspar MD 2 [facility] [address] [place] [address] Consulting Physician Cardiology 04/26/24 Amber Aldrich, TERMINAL MANAGER, STAFF TOXICOLOGIST #[address] [place] [address] Nurse Practitioner Cardiology 07/30/24 documented as of this encounter
--- OUTSIDE RECORDS SUMMARY | 2024-11-11 14:44 | XMS_ITS | Encounter Summary ---
Author Organization [facility] Address [address] [place] [address] Phone Care Team Providers Care Splicing Machine Operator Automatic Name Role Phone Jackeline Dimas BUFFER MACHINE, SHOW JUMPING INSTRUCTOR Primary Care Provider Phil Jacobo MD Unavailable [phone] Rajiv Mccormack NP Unavailable Unavailable Alize Acosta BUFFER MACHINE, SHOW JUMPING INSTRUCTOR Unavailable [phone] Dayo Chaney MD Unavailable Juanita Hauser RN Unavailable UnavailDavid Alexandre MD Unavailable Emilia Tang MD Primary Care Provider [phone] Maurilio Farley MD Unavailable Physician, Candida Davis MD Unavailable Rebeka Trinidad MD Primary Care Provider + [phone] Dom Quiñonez MD Unavailable Rachelle Nava BUFFER MACHINE, INFANT LEAD TEACHER Unavailable + [phone] Irais Naylor BUFFER MACHINE, SHOW JUMPING INSTRUCTOR Unavailable + [phone] Lorri Leo BUFFER MACHINE, SHOW JUMPING INSTRUCTOR Primary Care Provider [phone] Rebeka Trinidad MD Primary Care Provider + [phone] AhmetLorri Annetta BUFFER MACHINE, [facility] Primary Care Provider + [phone] Sharri Gaspar MD Unavailable Tani Biggs [facility] Primary Care Provider [phone] Amber Aldrich BUFFER MACHINE, [facility] Unavailable Reason for Visit * Reason Comments Medication Refill Encounter Details Date Type Department Care Team (Late st Contact Info) Description 01/13/2022 Refill [facility] - Primary Care - [place] [address] [place] [address] Jackeline Dimas BUFFER MACHINE, [facility] [address] [place] [address] Medication Refill Social History Tobacco [...] 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 Unable to assess 01/16/2022 3:15 PM MANAGER VOICE documented as of this encounter Miscellaneous Notes * Telephone Encounter - Elizabeth Cabrales RN - 01/14/2022 10:14 AM CST Medication was discontinued on 11/13/21 GER VOICE documented in this encounter Plan of Treatment Upcoming Encounters Date Type Department Care Team (Latest Contact Info) Description 11/12/2024 9:00 AM CDT [facility] [address] [place] [address] Amber Aldrich APRN, SHOW JUMPING INSTRUCTOR [address] [place] [address] Discharge Disposition: Discharged to home or Selfcare 11/12/2024 9:15 AM CDT Appointment [facility] Nuclear Medicine [address] [place] [address] Amber Aldrich APRN, SHOW JUMPING INSTRUCTOR [address] [place] [address] Discharge Disposition: Discharged to home or Selfcare 11/12/2024 9:30 AM CDT Hospital Encounter [facility] Cardiology Stress [address] [place] [address] Amber Aldrich APRN, SHOW JUMPING INSTRUCTOR [address] [place] [address] 11/12/2024 10:00 AM CDT Appointment [facility] Nuclear Medicine [address] [place] [address] Amber Aldrich APRN, SHOW JUMPING INSTRUCTOR [address] [place] [address] Discharge Disposition: Discharged to home or Selfcare 11/17/2024 2:00 PM CDT Telemedicine [facility] [address] [place] [address] Alize Acosta, BUFFER MACHINE, SHOW JUMPING INSTRUCTOR [address] [place] [address] 11/18/2024 3:45 PM CDT Office Visit [facility] - Endocrinology - [place] [address] [place] [address] David Salmon MD #[address] [address] 01/03/2025 11:30 AM CDT Office Visit [facility] Neurology - [place] [address] [place] [address] Rachelle Nava APRN, INFANT LEAD TEACHER #[address] [place] [address] 03/04/2025 3:10 PM MANAGER VOICE Lab [facility] Primary Care - [place] [address] [place] [address] [facility] 03/04/2025 3:30 PM MANAGER VOICE Office Visit [facility] Primary [facility] - [place] [address] [place] [address] Tani Biggs PAC [address] [place] [address] 03/17/2025 1:30 PM MANAGER VOICE Lab [facility] - Cancer Center Oncology Services [address] [place] [address] Melony Asif PAC [address] [place] [address] Discharge Disposition: Discharged to home or Selfcare 03/25/2025 1:20 PM MANAGER VOICE Office Visit [facility] Cancer Center Oncology Services [address] [place] [address] Melony Asif Stacey, PAC [address] [place] [address] Discharge Disposition: Discharged to home or Selfcare 04/25/2025 2:00 PM MANAGER VOICE Office Visit [facility] Cardiology [facility] #2 [place] [address] Laisha Griffin, DO [address] [address] 07/18/2025 1:00 PM CDT Office Visit [facility] Pulmonology & Sleep Medicine [facility] #[address] [place] [address] Dom Quiñonez MD #[address] [place] [address] documented as of this encounter Goals Goal [...] as recommended. Depression Depression Improving( 2:27 PM MANAGER VOICE) No Breanne Saldana LCSW Note: Goal/Objective: Decrease [...] 19 04/18/2024 04/18/2024 04/18/2024 10:4 7 PM MANAGER VOICE Respiratory Rule-Out 05/06/2024 05/06/2024 025 9:20 AM MANAGER VOICE COVID - 19 05/06/2024 05/06/2024 05/06/2024 9:19 AM MANAGER VOICE Assessment Noted Time PHQ-9 Depression Total Score: 0 09/01/19 20 11:58 AM CDT documented as of this encounter Care Teams Splicing Machine Operator Automatic Relationship Specialty Start Date End Date Jackeline Dimas, BUFFER MACHINE, SHOW JUMPING INSTRUCTOR [address] [place] [address] PCP - General Advanced Practice Nurse 5/24/18 3/30/ 23 Emilia Tang MD [address] [place] [address] PCP - General Family Medicine 06/07/22 03/25/23 Rebeka Trinidad MD [address] [place] [address] PCP - General Family Medicine 03/26/23 03/29/24 Lorri Leo APRN, SHOW JUMPING INSTRUCTOR [address] [place] [address] PCP - General Certified Nurse Practitioner 03/30/24 04/20/24 Rebeka Trinidad MD [address] [place] [address] PCP - General Family Medicine 04/21/24 04/21/24 Lorri Leo APRN, SHOW JUMPING INSTRUCTOR [address] [place] [address] PCP - General Certified Nurse Practitioner 04/22/24 05/30/24 Tani Biggs, PAC [address] [place] [address] PCP - General Physician Explosives Engineer 05/31/24 Phil Jacobo MD #[address] [place] [address] Consulting Physician Neurology 03/07/21 Rajiv Mccormack, HOGSHEAD DUMPER #[address] [place] [address] Nurse Practitioner Gastroenterology 03/07/21 Alize Acosta, RUSSELL, SHOW JUMPING INSTRUCTOR [address] [place] [address] Virtual Advanced Care (VAC) CERTIFIED COURT/MEDICAL INTERPRETER Advanced Practice Nurse 08/30/21 Dayo Chaney MD [address] [place] [address] Blast Furnace Helper Cardiovascular Disease - Cardiology 09/20/21 02/12/24 Juanita Mercado RN [place] Registered Nurse Cardiology 12/24/21 02/12/24 David Salmon MD #[address] [address] Consulting Physician Endocrinology 01/15/22 Maurilio Farley MD #[address] [address] Consulting Physician Colon and Rectal Surgery 09/20/22 Physician, Candida Davis MD [address] [place] [address] Family Medicine 01/25/22 03/18/23 Dom Quiñonez MD #[address] [place] [address] Consulting Physician Pulmonary Disease 11/19/21 Rachelle Nava APRN, INFANT LEAD TEACHER #[address] [place] [address] Nurse Practitioner Advanced Practice Nurse 07/19/22 Irais Naylor APRN, SHOW JUMPING INSTRUCTOR #[address] [address] Nurse Practitioner Cardiology 06/27/23 07/29/24 Sharri Gaspar MD [address] [address] Consulting Physician Cardiology 04/26/24 Amber Aldrich APRN, SHOW JUMPING INSTRUCTOR #[address] [place] [address] Nurse Practitioner Cardiology 07/30/24 documented as of this encounter
--- OUTSIDE RECORDS SUMMARY | 2024-11-11 14:44 | XMS_ITS | Encounter Summary ---
Author Organization [facility] Address [address] [place] [address] Phone Care Team Providers Care Para Operator Name Role Phone Phil Jacobo MD Unavailable [phone] Rajiv Mccormack NP Unavailable Unavailable Alize Acosta OUTER DIAMETER TECHNICIAN, [employer] Unavailable [phone] Dayo Chaney MD Unavailable Junaita Hauser RN Unavailable Unavaila David Martinez MD Unavailable Emilia Tang MD Primary Care Provider [phone] Maurilio Farley MD Unavailable PhysicianCandida MD Unavailable Rebeka Trinidad MD Primary Care Provider + [phone] Dom Quiñonez MD Unavailable Rachelle Nava OUTER DIAMETER TECHNICIAN, PARTY PLAN DEMONSTRATOR Unavailable + [phone] Irais Naylor OUTER DIAMETER TECHNICIAN, [employer] Unavailable + [phone] Lorri Leo OUTER DIAMETER TECHNICIAN, [employer] Primary Care Provider + [phone] Rebeka Trinidad MD Primary Care Provider + [phone] Lorri Leo OUTER DIAMETER TECHNICIAN, [employer] Primary Care Provider + [phone] Sharri Gaspar MD Unavailable Tani Biggs Primary Care Provider + [phone] Valdemar Amber Dinora WELLS, [employer] Unavailable Reason for Visit * Reason Comments Medication Refill Encounter Details Date Type Department Care Team (Late st Contact Info) Description 09/04/2022 Refill [facility] - Endocrinology - [place] [address] [place] [address] David Salmon MD #[address] [address] Medication Refill Social History Tobacco [...] 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 TRUEplus 5-Bevel Pen [place] 32G X 4 MM Misc [Pharmacy Med Name: TRUEPLUS 5- BEVEL PEN NEEDLE 19KG1CE] 100 Each 1 Sig: USE DAILY DIRECTED. Next appt: 10/31/2022 documented in this encounter Plan of Treatment Upcoming Encounters Date Type Department Care Team (Latest Contact Info) Description 11/12/2024 9:00 AM CDT [facility] [address] [place] [address] Amber Aldrich APRN, [employer] [address] [place] [address] Discharge Disposition: Discharged to home or Selfcare 11/12/2024 9:15 AM CDT Appointment [facility] Nuclear Medicine [address] [place] [address] Amber Aldrich APRN, [employer] [address] [place] [address] Discharge Disposition: Discharged to home or Selfcare 11/12/2024 9:30 AM CDT [facility] Card[facility] Stress [address] [place] [address] Amber Aldrich APRN, [employer] [address] [place] [address] 11/12/2024 10:00 AM CDT [facility] Nuclear Medicine [address] [place] [address] Amber Aldrich, OUTER DIAMETER TECHNICIAN, [employer] [address] [place] [address] Discharge Disposition: Discharged to home or Selfcare 11/17/2024 2:00 PM CDT Telemedicine [facility] [address] [place] [address] Alize Acosta, OUTER DIAMETER TECHNICIAN, [employer] [address] [place] [address] 11/18/2024 3:45 PM CDT Office Visit [facility] - Endocrinology - [place] [address] [place] [address] David Salmon MD #[address] [address] 01/03/2025 11:30 AM CDT Office Visit [facility] Neurology - [place] [address] [place] [address] Rachelle Nava, OUTER DIAMETER TECHNICIAN, PARTY PLAN DEMONSTRATOR #[address] [place] [address] 03/04/2025 3:10 PM WHEELCHAIR DRIVER Lab [facility] Primary Care - [place] [address] [place] [address] [facility] 03/04/2025 3:30 PM WHEELCHAIR DRIVER Office Visit [facility] Primary [facility] - [place] [address] [place] [address] Tani Biggs PAC [address] [place] [address] 03/17/2025 1:30 PM WHEELCHAIR DRIVER [facility] [address] [place] [address] Melony Asif August, PAC [address] [place] [address] Discharge Disposition: Discharged to home or Selfcare 03/25/2025 1:20 PM WHEELCHAIR DRIVER Office Visit [facility] Oncology Services [address] [place] [address] Melony Asif August, PAC [address] [place] [address] Discharge Disposition: Discharged to home or Selfcare 04/25/2025 2:00 PM WHEELCHAIR DRIVER Office Visit [facility] - Cardiology - [place] [address] [place] [address] Laisha Griffin, DO [address] [address] 07/18/2025 1:00 PM CDT Office Visit [facility] - Pulmonology & Sleep Medicine [facility] #2 [place] [address] Dom Quiñonez MD #[address] [place] [address] documented as of this encounter Goals Goal [...] Worsening(0 08/30/2024 1:58 PM CDT) Xiomy Gunderson M, RN Note: Goal: To manage my chronic [...] diet Depression Depression Improving(0 03/15/2022 2:27 PM WHEELCHAIR DRIVER) No Breanne Saldana, CANVAS GOODS FABRICATOR Note: Goal/Objective: Decrease symptoms of depression associated [...] 19 04/18/2024 04/18/2024 04/18/2024 10:4 7 PM WHEELCHAIR DRIVER Respiratory Rule-Out 05/06/2024 05/06/2024 025 9:20 AM WHEELCHAIR DRIVER COVID - 19 05/06/2024 05/06/2024 05/06/2024 9:19 AM WHEELCHAIR DRIVER Assessment Noted Time PHQ-9 Depression Total Score: 24 022 3:31 PM WHEELCHAIR DRIVER documented as of this encounter Care Teams Para Operator Relationship Specialty Start Date End Date Emilia Tang MD [address] [place] [address] PCP - General Family Medicine 06/07/22 03/25/23 eRbeka Trinidad MD [address] [place] [address] PCP - General Family Medicine 03/26/23 03/29/24 Lorri Leo APRN, [employer] [address] [place] [address] PCP - General Certified Nurse Practitioner 03/30/24 04/20/24 Rebeka Trinidad MD [address] [place] [address] PCP - General Family Medicine 04/21/24 04/21/24 Lorri Leo APRN, [employer] [address] [place] [address] PCP - General Certified Nurse Practitioner 04/22/24 05/30/24 Tani Biggs, PAC [address] [place] [address] PCP - General Physician Circular Saw Filer 05/31/24 Phil Jacobo MD #[address] [place] [address] Consulting Physician Neurology 03/07/21 Rajiv Mccormack, AUSTRALIAN RULES FOOTBALLER #[address] [place] [address] Nurse Practitioner Gastroenterology 03/07/21 Alize Acosta, OUTER DIAMETER TECHNICIAN, [employer] [address] [place] [address] Virtual Advanced Care (VAC) EVAPORATOR SUPERVISOR Advanced Practice Nurse 08/30/21 Dayo Chaney MD [address] [place] [address] Campground Cleaning Attendant Cardiovascular Disease - Cardiology 09/20/21 02/12/24 Juanita Mercado, [place] Registered Nurse Cardiology 12/24/21 02/12/24 David Salmon MD #[address] [address] Consulting Physician Endocrinology 01/15/22 Maurilio Farley MD #[address] [address] Consulting Physician Colon and Rectal Surgery 09/20/22 PhysicianCandida MD [address] [place] [address] Family Medicine 01/25/22 03/18/23 Dom Quiñonez MD #2 [facility] [place] [address] Consulting Physician Pulmonary Disease 11/19/21 Rachelle Nava, OUTER DIAMETER TECHNICIAN, PARTY PLAN DEMONSTRATOR #[address] [place] [address] Nurse Practitioner Advanced Practice Nurse 07/19/22 Irais Naylor, OUTER DIAMETER TECHNICIAN, [employer] #2 [facility] [address] [place] [address] Nurse Practitioner Cardiology 06/27/23 07/29/24 Sharri Gaspar MD 2 [facility] [address] [place] [address] Consulting Physician Cardiology 04/26/24 Amber Aldrich, OUTER DIAMETER TECHNICIAN, [employer] #[address] [place] [address] Nurse Practitioner Cardiology 07/30/24 documented as of this encounter
--- OUTSIDE RECORDS SUMMARY | 2024-11-11 14:44 | XMS_ITS | Clinical Summary ---
Author Organization [facility] Address [address] [place] [address] Care Team Providers Care Mirror Fabrication Supervisor Name Role Phone Tani Biggs Primary Care Provider [phone] Allergies Active Allergy Reactions Criticality Noted Date [...] 1 tablet (2 mg total) by mouth business intelligence manager before breakfast 08/01/19 21 Active allopurinoL (ZYLOPRIM) [...] times a day TEST BLOOD SUGAR 09/25/19 Active buPROPion XL (WELLBUTRIN XL) 150 mg [...] mg oralEvery morning, Informant: Self, Reported on 09/21/2024 famotidine (PEPCID) 40 mg tablet Take 1 tablet (40 mg total) by mouth daily 90 tablet 3 08/24/19 25 Active Additional Information Patient taking differently:40 mg oralEvery morning, Informant: Self, Reported on 09/21/2024 lubiprostone (AMITIZA) 24 mcg capsule Take 1 capsule (24 mcg total) by mouth 2 (two) times a day with meals 180 capsule 3 08/24/19 25 Active Mounjaro 15 mg/0.5 mL pen injector injection Inject 0.5 mL (15 mg total) under the skin every 7 days Q Friday07/16/19 25 Active Active Problems Problem Noted Date Diagnosed Date History of kidney cancer 10/06/2023 Overview (10/06/2023): Images from the original note were not included. 03/27/23: NC. Renal lesion. CT + MRI () - right kidney mass ([facility] [place]). Creatinine 1.1. Hx of post-menopausal bleeding s/p [...] + MRI () - right kidney mass ([facility]). Creatinine 1.1. Hx of post-menopausal bleeding s/p [...] + MRI () - right kidney mass ([facility] [place]). Creatinine 1.1. Hx of post-menopausal bleeding s/p [...] (04/29/2022): Added automatically from request for surgery [id number] Internal hemorrhoids 04/25/2022 Gastroparesis 05/23/2021 Erosive gastritis [...] Encounters Date Type Department Care Team Description 10/04/2024 11:40 AM CDT Office Visit [facility] Medicine ENT [address] [facility] [address] [place] [phone] Meli Campos MD EDDI (obstructive sleep apnea) (Primary Dx); Intolerance of continuous positive airway pressure (CPAP) ventilation 09/21/2024 8:00 AM CDT - 09/21/2024 8:30 AM CDT Surgery [facility] Operating Room [id number] [place] [address] Meli Campos MD DRUG INDUCED SLEEP ENDOSCOPY 09/21/2024 7:43 AM CDT Anesthesia Event [facility] Operating Room [id number] [place] [address] Eryn Epstein MD PhD Oliva White NP 09/21/2024 6:12 AM CDT - 09/21/2024 10:27 AM CDT Hospital Encounter [facility] Operating Room [id number] [place] [address] Meli Campos MD EDDI (obstructive sleep apnea) (Primary Dx) Discharge Disposition: Discharge to home or self care 08/18/2024 2:30 PM CDT Office Visit [facility] Gastroenterology at [address] [place] [address] Rajiv Sauceda NP Chronic superficial gastritis without bleeding (Primary Dx); Gastroesophageal reflux disease without esophagitis; History of GI bleed; Irritable bowel syndrome with both constipation and diarrhea; Slow transit constipation; Gastroparesis; Former smoker from Last 3 Months Immunizations Immunization Administration [...] failure) (HCC) Depression Type 2 diabetes mellitus Hypertension GERD (gastroesophageal reflux disease) Arthritis Migraines Heart disease Sleep apnea Lymphoma (HCC) Anemia Coronary artery disease Chronic kidney disease COPD (chronic obstructive pulmonary disease) PONV (postoperative nausea and vomiting) Motion sickness Arrhythmia Lung disease Irritable bowel syndrome Gastroparesis Chronic pain disorder History of kidney cancer removed part of right kidney Lupus (systemic lupus erythematosus) (HCC) Neuropathy Anxiety EDDI (obstructive sleep apnea) PVD (peripheral vascular disease) Family History Medical History Relation Name Comments Heart attack Father Heart disease Father Arthritis Mother Helen drew Asthma Mother Helen drew Diabetes Mother Helen drew Heart disease Mother Helen drew Hypertension Mother Helen drew Depression Sister Dariela yang Relation Name Status Comments Father Mother Helen yang Social History Tobacco Use Types Packs/Day Years Used Date Smoking Tobacco: Former Cigarettes 0.3 36 0 03/10/1985 - 03/10/2021 Smokeless Tobacco: Former Quit: 05/07/2021 Tobacco Cessation:Counseling Given: Not Answered AUDIT-C Answer Date Recorded Q1: How often do you have a drink containing alcohol? Never 09/21/2024 Q2: How many drinks containi ng alcohol do you have on a typical day when you are drinking? Patient does not drink Q3: How often do you have si x or more drinks on one occasion? Never 09/21/2024 Personal Safety Answer Date Recorded Have you ever been in or are you currently in a harmful physical or emotional relationship or is someone making you feel afraid or unsafe? Denies 09/21/2024 Comments No Sex and Gender Information Value Date Recorded Sex Assigned at Not on file Legal Sex Female 9:19 AM STATION CAPTAIN Gender Identity Female 06/03/2023 11:21 AM CDT Sexual Orientation Villegas 01/18/2021 9: 53 AM STATION CAPTAIN Obstetrics History Last Filed Vital Signs Vital Sign Reading Time Taken Comments Blood Pressure 115/80 09/21/2024 8:47 AM CDT Pulse 80 09/21/2024 8:47 AM CDT Temperature 36.4 C (97.5 F) 09/21/2024 8:30 AM CDT Respiratory Rate 14 09/21/2024 8:30 AM CDT Oxygen Saturation 96% 09/21/2024 8:47 AM CDT Inhaled Oxygen Concentration - - Weight 75.3 kg (166 lb) 10/04/2024 12:00 PM CDT Height 162.6 cm (5' 4) 10/04/2024 12:00 PM CDT Body Mass Index 28.49 10/04/2024 12:00 PM CDT Plan of Treatment Upcoming Encounters Date Type Department Care Team (Latest Contact Info) Description 01/25/2025 9:30 AM STATION CAPTAIN Hospital Encounter [facility] Operating Room [address] [place] [address] [place]pos [place] [id number] [place] [address] 01/25/2025 9:30 AM STATION CAPTAIN - 01/25/2025 12:30 PM STATION CAPTAIN Surgery [facility] Operating Room [address] [place] [address] [place] [id number] [address] TONSILLECTOMY & UVULOPHARYNGOPLASTY/1 50 min Scheduled Procedures Name Priority Associated Diagnoses Date/Ti me TONSILLECTOMY. EDDI (obstructive sleep apnea) 01/25/2025 9:30 AM STATION CAPTAIN UVULOPHARYNGOPLASTY EDDI (obstructive sleep apnea) 01/25/2025 9:30 AM STATION CAPTAIN Health Maintenance Due Date Last Done Comments Albumin Creatinine Ratio, Urine 1969 Colon Cancer Screening-Colonoscopy 1969 Depression Screening 1969 Hepatitis C Screening 1969 Dilated Eye Exam 1969 Foot Exam 1969 Meningococcal B Vaccine (1 o f 4 - Increased Risk) 06/01/1979 Hepatitis B Screening 06/01/1987 Regular Well Visit/Exam 18-64 06/01/1987 Zoster Vaccine (2 of 2) 09/07/2022 07/13/2022 Breast Cancer Screening-Mammogram 01/25/2024 01/24/2023, 06/19/2022, 06/19/2022, Additional history exists Cervical Cancer Screening 02/14/2024 02/13/2023, 09/2022 eGFR 04/18/2024 04/18/2023, 02/0 10/2023, 04/16/2023, Additional history exists Hemoglobin A1C 07/24/2024 01/25/2024, 02/0 08/2023, 08/31/2016 Influenza Vaccine (#1) 2024 , 11/13/2021, 11/30/2020, Additional history exists Lipid Panel 09/01/2025 09/01/2024, 01/10, 02/23/2022, Additional history exists DTaP/Tdap/Td Vaccine (2 - [...] on stairs Contact your local community or senior center for information on exercise, fall prevention programs, or options for improving home safety. Procedures Procedure Name Priority Date/Time Associated Diagnosis Comments DRUG INDUCED SLEEP ENDOSCOPY. 09/21/2024 7:43 AM CDT EDDI (obstructive sleep apnea) Case Notes 07/03: Portal message sent. Special Needs DR CAMPOS REQUESTS 5 MINS FOR CASE/2 WEEK POST OP POCT HCG, URINE Routine 09/21/2024 7:02 AM CDT POCT GLUCOSE DEVICE Routine 09/21/2024 7:01 AM CDT EGFR Timed 04/18/2023 11:04 PM STATION CAPTAIN HEMOGLOBIN A1C STAT 04/15/2023 10:25 PM STATION CAPTAIN HIGH RISK HPV DNA DETECTION WITH GENOTYPING Routine 02/13/2023 1:39 PM STATION CAPTAIN Postmenopausal bleeding LIPID PANEL Routine 08/31/2016 6:28 AM CDT from Last 3 Months or Most Recently Relevant to Health Maintenance Results * POCT hCG, urine (09/21/2024 7:02 AM CDT) HCG, ur, POC Negative Negative Lot Number [id number] QC Backgroud Clear Acceptable QC Control Line Acceptable Urine 09/21/2024 7:02 AM CDT us Serenity Nicole MD PhD POINT OF CARE TEST ORD ERABLES Final Result * POCT glucose (09/21/2024 7:01 AM CDT) Glucose, POC 132 70 - 199 mg/dL POC Performer [id number] ERI WELCH Blood 09/21/2024 7:01 AM CDT 09/21/2024 7:01 AM CDT us Meli Campos MD LAB POCT ORDERABLES - DEVICE Final Result ERI [id number] [address] Department [place] [address] * eGFR (04/18/2023 11:04 PM STATION CAPTAIN) eGFR 65 >=60 mL/min/1. 73 m2 [facility] Comment: Interpretive Data Reference Interval Normal [...] reviewed 2021. Blood 04/18/2023 11:0 4 PM STATION CAPTAIN 04/19/2023 12:33 AM STATION CAPTAIN Gerard Rodriguez MD LAB BLOOD ORDERABLES Fin al Result [facility] Department [place] [address] * (ABNORMAL) Hemoglobin A1c (04/15/2023 10:25 PM STATION CAPTAIN) Hgb A1C 5.8(H) 4.0 - 5.6 % [facility] Estimated Average Glucose 120 mg/dL [facility] Comment: The ADA recommends reporting an estimated Average Glucose (eAG) with all Hemoglobin A1c results using the equation derived from a study of 507 normal and diabetic adults. Minority populations were underrepresented and children were not included. (Diabetes Care 2020; 43(S1): S66-S76). The eAG is not equivalent to a fasting glucose. Blood 04/15/2023 10:2 5 PM STATION CAPTAIN 04/15/2023 11:38 PM STATION CAPTAIN Gerard Rodriguez MD LAB BLOOD ORDERABLES Fin al Result [facility] Department [place] [address] * High Risk HPV DNA Detection with Genotyping (Molecular component) (02/13/2023 1:39 PM STATION CAPTAIN) HPV HR 16 Not Detected Not Detected [facility] HPV HR 18 Not Detected Not Detected [facility] HPV HR Non 16/18 Not Detected Not Detected [facility] Comment: Interpretive Data Nucleic acid amplification [...] this test have been verified by the [facility] Molecular Infectious Disease laboratory. Correlate with separately reported cytology results, as applicable. Interpretive data last revised 22 Endocervical 02/13/2023 1:39 PM STATION CAPTAIN 02/14/2023 7:00 AM STATION CAPTAIN Narrative [facility] - 02/15/2023 2:10 AM STATION CAPTAIN Clinical history and diagnosis->screening pap Testing type->Screening Last menstrual period (date if known)->2019 us Maty Gilbert MD LAB BODY FLUIDS AND STOOLS OR DERABLES Final Result Performing Organization Address [facility]/ZIP Co de Phone Number [facility] Department [place] [address] * (ABNORMAL) Lipid panel (08/31/2016 6:28 AM [...] Final Re sult ERI VANEGAS (DAIANA) 1 [facility] Department [place] [address] from Last 3 Months or Most Recently Relevant to Health Maintenance Insurance [facility] MEDICARE ADVANTAGE IDPA [facility] MEDICARE ADVANTAGE IDPA [facility] MEDICARE ADVANTAGE Advance Directives For more information, please contact: [phone] * Full Code (Latest Code Status on [...] 11:00 AM 02/27/2021 11:00 AM Care Teams Mirror Fabrication Supervisor Relationship Specialty Start Date End Date Tani Biggs PA [address] [place] [address] PCP - General Orthopedic Surgery 09/13/24
--- OUTSIDE RECORDS SUMMARY | 2024-11-11 14:44 | XMS_ITS | Encounter Summary ---
Author Organization [facility] Address [address] [place] [address] Phone Care Team Providers Care Signwriter Name Role Phone Phil Jacobo MD Unavailable [phone] Rajiv Mccormack NP Unavailable Unavailable Alize Acosta APRN, ANDROID PROGRAMMER Unavailable [phone] Dayo Chaney MD Unavailable Juanita Hauser RN Unavailable UnavailDavid Alexandre MD Unavailable Maurilio Farley MD Unavailable Rebeka Trinidad MD Primary Care Provider + [phone] Dom Quiñonez MD Unavailable Rachelle Nava GRINDER DRESSER, GRAPE CUTTER Unavailable + [phone] Irais Naylor GRINDER DRESSER, ANDROID PROGRAMMER Unavailable + [phone] Lorri Leo GRINDER DRESSER, ANDROID PROGRAMMER Primary Care Provider + [phone] Rebeka Trinidad MD Primary Care Provider + [phone] Lorri Leo GRINDER DRESSER, ANDROID PROGRAMMER Primary Care Provider + [phone] Sharri Gaspar MD Unavailable Tani Biggs PAC Primary Care Provider [phone] Amber Aldrich APRN, ANDROID PROGRAMMER Unavailable Reason for Visit * Reason Comments Medication Refill Encounter Details Date Type Department Care Team (Late st Contact Info) Description 04/18/2023 Refill [facility] - Neurology [facility] [address] [place] [address] Rachelle Nava, RUSSELL, GRAPE CUTTER [address] [place] [address] Medication Refill Social History Tobacco Use Types Packs/Day Years Used Date Smoking Tobacco: Former Cigarettes 1 37.1 1 985 - 04/12/2021 Smokeless Tobacco: Never Alcohol Use Standard Drinks/Week Comments Not Currently 0 (1 standard drink = 0.6 oz pur e alcohol) last drank 2020 [facility] Utilities Answer Date Recorded In the past 12 months has [employer], gas, oil, or water company threatened [...] Never 03/24/2023 How often do you attend [facility]? More than 4 times per year 03/24/2023 Do you belong to any clubs o r organizations such as bahai groups, unions, fraternal or athletic groups, or [...] Total Score - Questions 1-9 18 08/ [facility] Occupat critical access hospitalal [facility] - Occupational Stress Questionnaire Answer Date [...] place to sleep or slept in a intermediate (including now)? 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 file [...] Dept 03/26/23 Office Visit Rebeka Trinidad MD [facility] 03/19/23 Office Visit Rachelle Nava APRN, CNS [facility] 02/06/23 Office Visit Emilia Tang MD [facility] 11/06/22 Office Visit Emilia Tang MD [facility] 10/10/22 Office Visit Emilia Tang MD [facility] 09/16/22 Office Visit Rachelle Nava APRN, CNS [facility] Neu[facility] 09/06/22 Office Visit Emilia Tang MD [facility] 07/19/22 Office Visit Rachelle Nava APRN, CNS [facility] 06/07/22 Office Visit Emilia Tang MD [facility] Showing recent visits within past 365 days and meeting all other requirements Future Appointments Date Type Provider Dept 06/19/23 Appointment Phil Jacobo MD [facility] Showing future appointments within next 90 days and meeting all other requirements NALISM TEACHER documented in this encounter Plan of Treatment Upcoming Encounters Date Type Department Care Team (Latest Contact Info) Description 11/12/2024 9:00 AM CDT Appointment [facility] Nuclear Medicine [address] [place] [address] Amber Aldrich APRN, ANDROID PROGRAMMER [address] [place] [phone] Discharge Disposition: Discharged to home or Selfcare 11/12/2024 9:15 AM CDT Appointment [facility] Nuclear Medicine [address] [place] [address] Amber Aldrich APRN, ANDROID PROGRAMMER [address] [place] [address] Discharge Disposition: Discharged to home or Selfcare 11/12/2024 9:30 AM CDT Hospital Encounter [facility] Cardiology Stress [address] [place] [address] Amber Aldrich APRN, ANDROID PROGRAMMER [address] [place] [address] 11/12/2024 10:00 AM CDT Appointment [facility] Nuclear Medicine [address] [place] [address] Amber Aldrich APRN, ANDROID PROGRAMMER [address] [place] [phone] Discharge Disposition: Discharged to home or Selfcare 11/17/2024 2:00 PM CDT Telemedicine [facility] [address] [place] [address] Alize Acosta, GRINDER DRESSER, ANDROID PROGRAMMER [address] [place] [address] 11/18/2024 3:45 PM CDT Office Visit [facility] Endocrinology - [place] [address] [place] [address] David Salmon MD [address] [phone] 01/03/2025 11:30 AM CDT Office Visit [facility] Neurology [facility] [address] [place] [address] Rachelle Nava, GRINDER DRESSER, GRAPE CUTTER [address] [place] [address] 03/04/2025 3:10 PM JOURNALISM TEACHER Lab [facility] [place] [address] [place] [phone] [facility] 03/04/2025 3:30 PM JOURNALISM TEACHER Office Visit [facility] [place] [address] [place] [address] Tani Biggs PAC [address] [place] [address] 03/17/2025 1:30 PM JOURNALISM TEACHER Lab [facility] Oncology Services [address] [place] [address] Melony Asif PAC [address] [place] [address] Discharge Disposition: Discharged to home or Selfcare 03/25/2025 1:20 PM JOURNALISM TEACHER Office Visit [facility] Oncology Services [address] [place] [address] Melony Asif August, PAC [address] [place] [address] Discharge Disposition: Discharged to home or Selfcare 04/25/2025 2:00 PM JOURNALISM TEACHER Office Visit [facility] Cardiology - [place] [address] [place] [address] Laisha rGiffin, DO [address] [address] 07/18/2025 1:00 PM CDT Office Visit [facility] - Pulmonology & Sleep Medicine [facility] [address] [place] [address] Dom Quiñonez MD [address] [place] [address] documented as of this encounter Goals Goal [...] diet Depression Depression Improving(0 03/15/2022 2:27 PM JOURNALISM TEACHER) No Breanne Saldana LCSW Note: Goal/Objective: Decrease [...] 19 04/18/2024 04/18/2024 04/18/2024 10:4 7 PM JOURNALISM TEACHER Respiratory Rule-Out 05/06/2024 05/06/2024 025 9:20 AM JOURNALISM TEACHER COVID - 19 05/06/2024 05/06/2024 05/06/2024 9:19 AM JOURNALISM TEACHER Assessment Noted Time PHQ-9 Depression Total Score: 18 023 9:24 AM CDT documented as of this encounter Care Teams Signwriter Relationship Specialty Start Date End Date Rebeka Trinidad MD [address] [place] [address] PCP - General Family Medicine 03/26/23 03/29/24 Lorri Leo GRINDER DRESSER, ANDROID PROGRAMMER [address] [place] [address] PCP - General Certified Nurse Practitioner 03/30/24 04/20/24 Rebeka Trinidad MD [address] [place] [address] PCP - General Family Medicine 04/21/24 04/21/24 Lorri Leo GRINDER DRESSER, ANDROID PROGRAMMER [address] [place] [address] PCP - General Certified Nurse Practitioner 04/22/24 05/30/24 Tani Biggs PAC [address] [place] [phone] PCP - General Physician Inclusion Special Educator 05/31/24 Phil Jacobo MD [address] [place] [address] Consulting Physician Neurology 03/07/21 Rajiv Mccormack, KELI [address] [place] [address] Nurse Practitioner Gastroenterology 03/07/21 Alize Acosta, RUSSELL, ANDROID PROGRAMMER [address] [place] [address] [facility] EARLY LEARNING TEACHER Advanced Practice Nurse 08/30/21 Dayo Chaney MD [address] [place] [address] Android Architect Cardiovascular Disease - Cardiology 09/20/21 02/12/24 Juanita Mercado RN [place] Registered Nurse Cardiology 12/24/21 02/12/24 David Salmon MD #[address] [phone] Consulting Physician Endocrinology 01/15/22 Maurilio Farley MD #[address] [address] Consulting Physician Colon and Rectal Surgery 09/20/22 Dom Quiñonez MD [address] [place] [address] Consulting Physician Pulmonary Disease 11/19/21 Rachelle Nava, GRINDER DRESSER, GRAPE CUTTER [address] [place] [address] Nurse Practitioner Advanced Practice Nurse 07/19/22 Irais Naylor APRN, ANDROID PROGRAMMER [address] [address] Nurse Practitioner Cardiology 06/27/23 07/29/24 Sharri Gaspar MD [address] [facility] [facility] [address] [address] Consulting Physician Cardiology 04/26/24 Amber Aldrich APRN, ANDROID PROGRAMMER [address] [place] [address] Nurse Practitioner Cardiology 07/30/24 documented as of this encounter
--- OUTSIDE RECORDS SUMMARY | 2024-11-11 14:44 | XMS_ITS | Encounter Summary ---
Author Organization [facility] Address [address] [place] [address] Phone Care Team Providers Care Dietician Name Role Phone Jackeline Dimas ADULT SCHOOL TEACHER, NURSE WOUND CARE Primary Care Provider Fiona Martinez STONE HAND Unavailable Unavailab Phil Ellis MD Unavailable [phone] Rajiv Mccormack NP Unavailable Unavailable Renita Quezada RN Unavailable Unavailable Alize Acosta ADULT SCHOOL TEACHER, NURSE WOUND CARE Unavailable [phone] Dayo Chaney MD Unavailable Juanita Hauser RN Unavailable Unavaila David Martinez MD Unavailable Emilia Tang MD Primary Care Provider [phone] Maurilio Farley MD Unavailable Candida Turner MD Unavailable Rebeka Trinidad MD Primary Care Provider + [phone] Dom Quiñonez MD Unavailable Rachelle Nava ADULT SCHOOL TEACHER, SEALANT MIXER Unavailable + [phone] Irais Naylor ADULT SCHOOL TEACHER, NURSE WOUND CARE Unavailable [phone] AhmetAngélicamando Littlejohn ADULT SCHOOL TEACHER, NURSE WOUND CARE Primary Care Provider + [phone] Rebeka Trinidad MD Primary Care Provider [phone] Lorri Leo ADULT SCHOOL TEACHER, NURSE WOUND CARE Primary Care Provider [phone] Sharri Gaspar MD Unavailable Tani Biggs [facility] Primary Care Provider + [phone] Amber Aldrich ADULT SCHOOL TEACHER, NURSE WOUND CARE Unavailable Reason for Visit * Reason Comments Medication Refill Encounter Details Date Type Department Care Team (Late Contact Info) Description 06/15/2020 Refill [facility] Primary Care - [place] [address] [place] [address] Jackeline Dimas, ADULT SCHOOL TEACHER, [facility] [address] [place] [address] Medication Refill Social History Tobacco [...] 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 [...] Description 11/12/2024 9:00 AM CDT [facility] [address] [place] [address] Amber Aldrich APRN, NURSE WOUND CARE #[address] [place] [address] Discharge Disposition: Discharged to home or Selfcare 11/12/2024 9:15 AM CDT [facility] [address] [place] [address] Amber Aldrich APRN, NURSE WOUND CARE #2 [place] [address] Discharge Disposition: Discharged to home or Selfcare 11/12/2024 9:30 AM CDT [facility] Card[facility] Stress [address] [place] [address] Amber Aldrich APRN, NURSE WOUND CARE #[address] [place] [address] 11/12/2024 10:00 AM CDT Appointment [facility] Nuclear Medicine [address] [place] [address] Amber Aldrich APRN, NURSE WOUND CARE #[address] [place] [address] Discharge Disposition: Discharged to home or Selfcare 11/17/2024 2:00 PM CDT Telemedicine [facility] [address] [place] [address] Alize Acosta, ADULT SCHOOL TEACHER, NURSE WOUND CARE [address] [place] [address] 11/18/2024 3:45 PM CDT Office Visit [facility] - Endocrinology - [place] #[address] [facility] [facility] [place] [address] David Salmon MD #2 [facility] [address] [place] [address] 01/03/2025 11:30 AM CDT Office Visit [facility] - Neurology - [place] #2 [place] [address] Rachelle Nava, ADULT SCHOOL TEACHER, SEALANT MIXER #2 [facility] [address] 03/04/2025 3:10 PM REHAB TRAINER Lab [facility] Primary Care - [place] [address] [place] [address] [facility] 03/04/2025 3:30 PM REHAB TRAINER Office Visit [facility] Primary Care - [place] [address] [place] [address] Tani Biggs, ESTRELLITA [address] [place] [phone] 03/17/2025 1:30 PM REHAB TRAINER [facility] [address] [place] [address] Melony Asif, PAC [address] [place] [address] Discharge Disposition: Discharged to home or Selfcare 03/25/2025 1:20 PM REHAB TRAINER [facility] [address] [place] [address] Melony Asif, PAC [address] [place] [address] Discharge Disposition: Discharged to home or Selfcare 04/25/2025 2:00 PM REHAB TRAINER Office Visit [facility] Medical [facility] - Cardiology - [place] #2 [place] [address] Laisha Griffin, DO [address] [address] 07/18/2025 1:00 PM CDT [facility] - [place] #2 [place] [address] Dom Quiñonez MD #2 [place] [address] documented as of this encounter Visit Diagnoses Not on filedocumented in this encounter Additional Health Concerns Infection Onset Date Last Indicated Resolved Time COVID - 19 01/08/2021 01/08/2021 01/28/2021 12:1 6 AM REHAB TRAINER COVID - 19 03/12/2021 03/12/2021 04/01/2021 12:1 6 AM REHAB TRAINER COVID - 19 12/15/2021 12/15/2021 12/15/2021 7:26 PM CDT COVID - 19 Confirmed 12/15/2021 12/15/2021 022 12:16 AM CDT COVID - 19 04/18/2024 04/18/2024 04/18/2024 10:4 7 PM REHAB TRAINER Respiratory Rule-Out 05/06/2024 05/06/2024 025 9:20 AM REHAB TRAINER COVID - 19 05/06/2024 05/06/2024 05/06/2024 9:19 AM REHAB TRAINER Assessment Noted Time PHQ-9 Depression Total Score: 0 09/01/19 20 11:58 AM CDT documented as of this encounter Care Teams Dietician Relationship Specialty Start Date End Date Jackeline Dimas, ADULT SCHOOL TEACHER, NURSE WOUND CARE [address] [place] [address] PCP - General Advanced Practice Nurse 07/31/17 Emilia Tang MD [address] [place] [address] PCP - General Family Medicine 06/07/22 03/25/23 Rebeka Trinidad MD [address] [place] [address] PCP - General Family Medicine 03/26/23 03/29/24 Lorri Leo APRN, NURSE WOUND CARE [address] [place] [address] PCP - General Certified Nurse Practitioner 03/30/24 04/20/24 Rebeka Trinidad MD [address] [place] [address] PCP - General Family Medicine 04/21/24 04/21/24 Lorri Leo ADULT SCHOOL TEACHER, NURSE WOUND CARE [address] [place] [address] PCP - General Certified Nurse Practitioner 04/22/24 05/30/24 Tani Biggs, PAC [address] [place] [address] PCP - General Physician Utilization Review Coordinator 05/31/24 Fiona Martinez, STONE HAND [place] [facility] Home 03/01/21 08/23/21 Phil Jacobo MD #2 [place] [address] Consulting Physician Neurology 03/07/21 Rajiv Mccormack, KELI #2 [place] [address] Nurse Practitioner Gastroenterology 03/07/21 Renita Quezada RN [place] [facility] Home 05/09/21 08/23/21 Alize Acosta APRN, NURSE WOUND CARE [address] [place] [address] [facility] ([facility]) VP [employer]ANNING Advanced Practice Nurse 08/30/21 Dayo Chaney MD [address] [place] [address] White Metal Corrosion Proofer Cardiovascular Disease - Cardiology 09/20/21 02/12/24 Juanita Mercado RN [place] Registered Nurse Cardiology 12/24/21 02/12/24 David Salmon MD #[address] [address] Consulting Physician Endocrinology 01/15/22 Maurilio Farley MD #[address] [address] Consulting Physician Colon and Rectal Surgery 09/20/22 PhysicianCandida MD [address] [place], [place] [address] Family Medicine 01/25/22 03/18/23 Dom Quiñonez MD #2 [place] [address] Consulting Physician Pulmonary Disease 11/19/21 Rachelle Nava APRN, SEALANT MIXER #[address] [place] [address] Nurse Practitioner Advanced Practice Nurse 07/19/22 Irais Naylor APRN, NURSE WOUND CARE #[address] [facility] [place] [address] [place] [address] Nurse Practitioner Cardiology 06/27/23 07/29/24 Sharri Gaspar MD [address] [place] [address] Consulting Physician Cardiology 04/26/24 Amber Aldrich APRN, NURSE WOUND CARE #[address] [place] [address] Nurse Practitioner Cardiology 07/30/24 documented as of this encounter
--- OUTSIDE RECORDS SUMMARY | 2024-11-11 14:44 | XMS_ITS | Encounter Summary ---
Author Organization [facility] Address [address] [place] [address] Phone Care Team Providers Care Video Operator Name Role Phone Jackeline Dimas THREAD MILLING MACHINE SET UP OPERATOR, RIPRAP PLACING SUPERVISOR Primary Care Provider Fiona Martinez WEIGH MACHINE OPERATOR Unavailable Unavailab Phil Ellis MD Unavailable [phone] Rajiv Mccormack NP Unavailable Unavailable Renita Quezada RN Unavailable Unavailable Alize Acosta THREAD MILLING MACHINE SET UP OPERATOR, RIPRAP PLACING SUPERVISOR Unavailable [phone] Dayo Chaney MD Unavailable Juanita Hauser RN Unavailable Unavaila David Martinez MD Unavailable Emilia Tang MD Primary Care Provider [phone] Maurilio Farley MD Unavailable Candida Turner MD Unavailable Rebeka Trinidad MD Primary Care Provider + [phone] Dom Quiñonez MD Unavailable Rachelle Nava THREAD MILLING MACHINE SET UP OPERATOR, HOURLY SHIFT MANAGER Unavailable + [phone] Irais Naylor THREAD MILLING MACHINE SET UP OPERATOR, RIPRAP PLACING SUPERVISOR Unavailable [phone] AhmetAngélicamando Littlejohn THREAD MILLING MACHINE SET UP OPERATOR, RIPRAP PLACING SUPERVISOR Primary Care Provider + [phone] Rebeka Trinidad MD Primary Care Provider [phone] Lorri Leo THREAD MILLING MACHINE SET UP OPERATOR, RIPRAP PLACING SUPERVISOR Primary Care Provider [phone] Sharri Gaspar MD Unavailable Tani Biggs [facility] Primary Care Provider + [phone] Amber Aldrich THREAD MILLING MACHINE SET UP OPERATOR, RIPRAP PLACING SUPERVISOR Unavailable Reason for Visit * Reason Comments Medication Refill Encounter Details Date Type Department Care Team (Late Contact Info) Description 07/09/2020 Refill [facility] Primary Care - [place] [address] [place] [address] Jackeline Dimas, THREAD MILLING MACHINE SET UP OPERATOR, [facility] [address] [place] [address] Medication Refill Social History Tobacco [...] 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 [...] Info) Description 11/12/2024 9:00 AM CDT [facility] [address] [place] [address] Amber Aldrich APRN, RIPRAP PLACING SUPERVISOR #[address] [place] [address] Discharge Disposition: Discharged to home or Selfcare 11/12/2024 9:15 AM CDT [facility] [address] [place] [address] Amber Aldrich APRN, RIPRAP PLACING SUPERVISOR #[address] [place] [address] Discharge Disposition: Discharged to home or Selfcare 11/12/2024 9:30 AM CDT [facility] Stress [address] [place] [address] Amber Aldrich APRN, RIPRAP PLACING SUPERVISOR #[address] [place] [address] 11/12/2024 10:00 AM CDT Appointment [facility] Nuclear Medicine [address] [place] [address] Amber Aldrich APRN, RIPRAP PLACING SUPERVISOR #[address] [place] [address] Discharge Disposition: Discharged to home or Selfcare 11/17/2024 2:00 PM CDT Telemedicine [facility] [address] [place] [address] Alize Acosta, THREAD MILLING MACHINE SET UP OPERATOR, RIPRAP PLACING SUPERVISOR [address] [place] [address] 11/18/2024 3:45 PM CDT Office Visit [facility] - Endocrinology - [place] #[address] [facility] [address] David Salmon MD #2 [facility] [address] [place] [address] 01/03/2025 11:30 AM CDT Office Visit [facility] - Neurology - [place] #2 [facility] [place] [address] Racehlle Nava, THREAD MILLING MACHINE SET UP OPERATOR, HOURLY SHIFT MANAGER #2 [facility] [place] [address] 03/04/2025 3:10 PM UNDERWRITING SALES REPRESENTATIVE Lab [facility] Primary Care - [place] [address] [place] [address] [facility] 03/04/2025 3:30 PM UNDERWRITING SALES REPRESENTATIVE Office Visit [facility] Primary Care - [place] [address] [place] [address] Tani Biggs, ESTRELLITA [address] [place] [phone] 03/17/2025 1:30 PM UNDERWRITING SALES REPRESENTATIVE [facility] [address] [place] [address] Melony Asif, PAC [address] [place] [address] Discharge Disposition: Discharged to home or Selfcare 03/25/2025 1:20 PM UNDERWRITING SALES REPRESENTATIVE [facility] [address] [place] [address] Melony Asif, PAC [address] [place] [address] Discharge Disposition: Discharged to home or Selfcare 04/25/2025 2:00 PM UNDERWRITING SALES REPRESENTATIVE Office Visit [facility] Medical [facility] - Cardiology - [place] #2 [place] [address] Laisha Griffin, DO [address] [address] 07/18/2025 1:00 PM CDT [facility] - [place] #2 [place] [address] Dom Quiñonez MD #2 [place] [address] documented as of this encounter Visit Diagnoses Not on filedocumented in this encounter Additional Health Concerns Infection Onset Date Last Indicated Resolved Time COVID - 19 01/08/2021 01/08/2021 01/28/2021 12:1 6 AM UNDERWRITING SALES REPRESENTATIVE COVID - 19 03/12/2021 03/12/2021 04/01/2021 12:1 6 AM UNDERWRITING SALES REPRESENTATIVE COVID - 19 12/15/2021 12/15/2021 12/15/2021 7:26 PM CDT COVID - 19 Confirmed 12/15/2021 12/15/2021 022 12:16 AM CDT COVID - 19 04/18/2024 04/18/2024 04/18/2024 10:4 7 PM UNDERWRITING SALES REPRESENTATIVE Respiratory Rule-Out 05/06/2024 05/06/2024 025 9:20 AM UNDERWRITING SALES REPRESENTATIVE COVID - 19 05/06/2024 05/06/2024 05/06/2024 9:19 AM UNDERWRITING SALES REPRESENTATIVE Assessment Noted Time PHQ-9 Depression Total Score: 0 09/01/19 20 11:58 AM CDT documented as of this encounter Care Teams Video Operator Relationship Specialty Start Date End Date Jackeline Dimas, THREAD MILLING MACHINE SET UP OPERATOR, RIPRAP PLACING SUPERVISOR [address] [place] [address] PCP - General Advanced Practice Nurse 07/31/17 Emilia Tang MD [address] [place] [address] PCP - General Family Medicine 06/07/22 03/25/23 Rebeka Trinidad MD [address] [place] [address] PCP - General Family Medicine 03/26/23 03/29/24 Lorri Leo APRN, RIPRAP PLACING SUPERVISOR [address] [place] [address] PCP - General Certified Nurse Practitioner 03/30/24 04/20/24 Rebeka Trinidad MD [address] [place] [address] PCP - General Family Medicine 04/21/24 04/21/24 Lorri Leo THREAD MILLING MACHINE SET UP OPERATOR, RIPRAP PLACING SUPERVISOR [address] [place] [address] PCP - General Certified Nurse Practitioner 04/22/24 05/30/24 Tani Biggs, PAC [address] [place] [address] PCP - General Physician Employee Welfare Manager 05/31/24 Fiona Martinez, WEIGH MACHINE OPERATOR [place] Repairer Controller Tester 03/01/21 08/23/21 Phil Jacobo MD #[address] [place] [address] Consulting Physician Neurology 03/07/21 Rajiv Mccormack, KELI #[address] [place] [address] Nurse Practitioner Gastroenterology 03/07/21 Renita Quezada RN [place] Repairer Controller Tester 05/09/21 08/23/21 Alize Acosta APRN, RIPRAP PLACING SUPERVISOR [address] [place] [address] [facility] ([facility]) BEADING INSTALLER Advanced Practice Nurse 08/30/21 Dayo Chaney MD [address] [place] [address] Facial Operator Cardiovascular Disease - Cardiology 09/20/21 02/12/24 Juanita Mercado RN [place] Registered Nurse Cardiology 12/24/21 02/12/24 David Salmon MD #[address] [address] Consulting Physician Endocrinology 01/15/22 Maurilio Farley MD #[address] [address] Consulting Physician Colon and Rectal Surgery 09/20/22 PhysicianCandida MD [address] [place], [place] [address] Family Medicine 01/25/22 03/18/23 Dom Quiñonez MD #2 [place] [address] Consulting Physician Pulmonary Disease 11/19/21 Rachelle Nava APRN, HOURLY SHIFT MANAGER #[address] [place] [address] Nurse Practitioner Advanced Practice Nurse 07/19/22 Irais Naylor APRN, RIPRAP PLACING SUPERVISOR #[address] [facility] [address] [place] [address] Nurse Practitioner Cardiology 06/27/23 07/29/24 Sharri Gaspar MD [address] [place] [address] Consulting Physician Cardiology 04/26/24 Amber Aldrich APRN, RIPRAP PLACING SUPERVISOR #[address] [place] [address] Nurse Practitioner Cardiology 07/30/24 documented as of this encounter
--- OUTSIDE RECORDS SUMMARY | 2024-11-11 14:44 | XMS_ITS | Encounter Summary ---
Author Organization [facility] Address [address] [place] [address] Phone Care Team Providers Care Tire Center Manager Name Role Phone Phil Jacobo MD Unavailable [phone] Rajiv Mccormack NP Unavailable Unavailable Alize Acosta APRN, SCRAP KETTLE TENDER Unavailable [phone] Dayo Chaney MD Unavailable Juanita Hauser RN Unavailable UnavailDavid Alexandre MD Unavailable Maurilio Farley MD Unavailable Rebeka Trinidad MD Primary Care Provider + [phone] Dom Quiñonez MD Unavailable Rachelle Nava VIDEO CONTROL OPERATOR, COMMUNITY RELATIONS OFFICER Unavailable + [phone] Irais Naylor VIDEO CONTROL OPERATOR, SCRAP KETTLE TENDER Unavailable + [phone] Lorri Leo VIDEO CONTROL OPERATOR, SCRAP KETTLE TENDER Primary Care Provider + [phone] Rebeka Trinidad MD Primary Care Provider + [phone] Lorri Leo VIDEO CONTROL OPERATOR, SCRAP KETTLE TENDER Primary Care Provider + [phone] Sharri Gaspar MD Unavailable Tani Biggs PAC Primary Care Provider + [phone] Amber Aldrich APRN, CNP Unavailable Encounter Details Date Type Department Care Team (Late st Contact Info) Description 09/12/2023 Transcribe Orders [facility] Central Scheduling [address] [place] [address] Rebeka Trinidad MD [address] [place] [address] Social History Tobacco Use Types Packs/Day Years Used Date Smoking Tobacco: Former Cigarettes 1 37.1 1 985 - 04/12/2021 Smokeless Tobacco: Never Alcohol Use Standard Drinks/Week Comments Not Currently 0 (1 standard drink = 0.6 oz pur e alcohol) last drank 2020 [facility] Utilities Answer Date Recorded In the past 12 months has [employer] electric, gas, oil, or water [employer] threatened to shut off services in your home? No 09/08/2023 Social Connection and Isolation Panel Answer Date Recorded In a typical week, how many times do you talk on the phone with family, friends, or neighbors? Once a week 09/08/19 How often do you get togethe r with friends or relatives? Never 09/08/2023 How often do you attend [facility] or [facility] services? 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 file Not on file documented as of this encounter Plan of Treatment Upcoming Encounters Date Type Department Care Team (Latest Contact Info) Description 11/12/2024 9:00 AM CDT [facility] [address] [place] [address] Amber Aldrich APRN, SCRAP KETTLE TENDER [address] [place] [address] Discharge Disposition: Discharged to home or Selfcare 11/12/2024 9:15 AM CDT [facility]ment [facility] [address] [place] [address] Amber Aldrich APRN, SCRAP KETTLE TENDER [address] [place] [address] Discharge Disposition: Discharged to home or Selfcare 11/12/2024 9:30 AM CDT Hospital [facility] Cardiology Stress [address] [place] [address] Amber Aldrich APRN, SCRAP KETTLE TENDER [address] [place] [address] 11/12/2024 10:00 AM CDT [facility]ment [facility] Nuclear Medicine [address] [place] [address] Amber Aldrich, VIDEO CONTROL OPERATOR, SCRAP KETTLE TENDER [address] [place] [address] Discharge Disposition: Discharged to home or Selfcare 11/17/2024 2:00 PM CDT Telemedicine [facility] [address] [place] [address] Alize Acosta, VIDEO CONTROL OPERATOR, SCRAP KETTLE TENDER [address] [place] [address] 11/18/2024 3:45 PM CDT Office Visit [facility] - Endocrinology - [place] [address] [place] [address] David Salmon MD #[address] [address] 01/03/2025 11:30 AM CDT [facility] [place] [address] [place] [address] Rachelle Nava, VIDEO CONTROL OPERATOR, COMMUNITY RELATIONS OFFICER [address] [place] [address] 03/04/2025 3:10 PM OIL AGENT Lab [facility] [place] [place] [address] Lab, [facility] 03/04/2025 3:30 PM OIL AGENT Office Visit [facility] [place] [phone] Tani Biggs, [facility] [address] [place] [address] 03/17/2025 1:30 PM OIL AGENT Lab [facility] [address] [place] [address] AsifMelony Stacey, [facility] [address] [place] [address] Discharge Disposition: Discharged to home or Selfcare 03/25/2025 1:20 PM OIL AGENT Office Visit [facility] [address] [place] [address] [place] Melony June, [facility] [address] [place] [address] Discharge Disposition: Discharged to home or Selfcare 04/25/2025 2:00 PM OIL AGENT Office Visit [facility] - Cardiology - [place] [address] [place] [address] Laisha Griffin, DO [address] [address] 07/18/2025 1:00 PM CDT Office Visit [facility] - Pulmonology & Sleep Medicine [facility] #2 [place] [address] Dom Quiñonez MD #2 [place] [address] documented as of this encounter Goals Goal Patient Goal Type Associated Problems Recent Progress Patient-Stated? Author ACTIVITY Activity No change(08/08 2:42 PM CDT) Yes Maritza Vanegas, RN Note: Bonny will walk five days a week. Goal Reviewed with: Bonny Readiness to change: Department associated with goal: [facility] Steps to achieve goal: Walking 5 days a week I want to be able to be around people and feel less depressed. Behavioral Health Worsening(0 09/22/2023 3:12 PM CDT) Hilda Mesa, [facility] Note: Goal/Objective: Decrease symptoms of depression and anxiety. Anticipated Time Frame for Goal Completion: 3 months Goal Reviewed with: patient Readiness to change: Thinking about making a change Department associated with goal: [facility] Steps to achieve goal: [...] diet Depression Depression Improving(0 03/15/2022 2:27 PM OIL AGENT) No Breanne Saldana LCSW Note: Goal/Objective: Decrease [...] 19 04/18/2024 04/18/2024 04/18/2024 10:4 7 PM OIL AGENT Respiratory Rule-Out 05/06/2024 05/06/2024 025 9:20 AM OIL AGENT COVID - 05/06/2024 05/06/2024 05/06/2024 9:19 AM OIL AGENT Assessment Noted Time PHQ-9 Depression Total Score: 18 023 9:24 AM CDT documented as of this encounter Care Teams Tire Center Manager Relationship Specialty Start Date End Date Rebeka Trinidad MD [address] [place] [address] PCP - General Family Medicine 03/26/23 03/29/24 Lorri Leo APRN, SCRAP KETTLE TENDER [address] [place] [address] PCP - General Certified Nurse Practitioner 03/30/24 04/20/24 Rebeka Trinidad MD [address] [place] [address] PCP - General Family Medicine 04/21/24 04/21/24 Lorri Leo APRN, SCRAP KETTLE TENDER [address] [place] [address] PCP - General Certified Nurse Practitioner 04/22/24 05/30/24 Tani Biggs, PAC [address] [place] [address] PCP - General Physician Patient Care Associate 05/31/24 Phil Jacobo MD [address] [place] [address] Consulting Physician Neurology 03/07/21 Rajiv Mccormack, SHINGLE GRADER [address] [place] [address] Nurse Practitioner Gastroenterology 03/07/21 Alize Acosta, VIDEO CONTROL OPERATOR, SCRAP KETTLE TENDER [address] [place], [place] [phone] [facility] ([facility]) OIL WELL SERVICES DISPATCHER Advanced Practice Nurse 08/30/21 Dayo Chaney MD [address] [place] [address] Product Safety Engineer Cardiovascular Disease - Cardiology 09/20/21 02/12/24 Juanita Mercado, [place] Registered Nurse Cardiology 12/24/21 02/12/24 David Salmon MD #[address] [phone] Consulting Physician Endocrinology 01/15/22 Maurilio Farley MD #[address] [phone] Consulting Physician Colon and Rectal Surgery 09/20/22 Dom Quiñonez MD #[address] [place] [address] Consulting Physician Pulmonary Disease 11/19/21 Rachelle Nava, VIDEO CONTROL OPERATOR, COMMUNITY RELATIONS OFFICER [address] [place] [address] Nurse Practitioner Advanced Practice Nurse 07/19/22 Irais Naylor APRN, SCRAP KETTLE TENDER #2 [facility] [address] [place] [address] Nurse Practitioner Cardiology 06/27/23 07/29/24 Sharri Gaspar MD 2 [facility] [place] [facility] [address] [place] [address] Consulting Physician Cardiology 04/26/24 Amber Aldrich APRN, SCRAP KETTLE TENDER [address] [place] [address] Nurse Practitioner Cardiology 07/30/24 documented as of this encounter
--- OUTSIDE RECORDS SUMMARY | 2024-11-11 14:44 | XMS_ITS | Encounter Summary ---
Author Organization [facility] Address [address] [place] [address] Phone Care Team Providers Care Language Instructor Name Role Phone Jackeline Dimas FOOD SERVICE HOTEL RUNNER, BILLBOARD ERECTOR HELPER Primary Care Provider Phil Jacobo MD Unavailable [phone] Rajiv Mccormack NP Unavailable Unavailable Alize Acosta FOOD SERVICE HOTEL RUNNER, BILLBOARD ERECTOR HELPER Unavailable [phone] Dayo Chaney MD Unavailable Juanita Hauser RN Unavailable UnavailDavid Alexandre MD Unavailable Emilia Tang MD Primary Care Provider [phone] Maurilio Farley MD Unavailable Physician, Candida Davis MD Unavailable Rebeka Trinidad MD Primary Care Provider + [phone] Dom Quiñonez MD Unavailable Rachelle Nava FOOD SERVICE HOTEL RUNNER, CUSTOMS APPRAISER Unavailable + [phone] Irais Naylor FOOD SERVICE HOTEL RUNNER, BILLBOARD ERECTOR HELPER Unavailable + [phone] Lorri Leo FOOD SERVICE HOTEL RUNNER, BILLBOARD ERECTOR HELPER Primary Care Provider [phone] Rebeka Trinidad MD Primary Care Provider + [phone] Ahmet Lorri M FOOD SERVICE HOTEL RUNNER, [facility] Primary Care Provider + [phone] Sharri Gaspar MD Unavailable Tani Biggs [facility] Primary Care Provider [phone] Amber Aldrich FOOD SERVICE HOTEL RUNNER, [facility] Unavailable Reason for Visit * Reason Comments Medication Refill Encounter Details Date Type Department Care Team (Late st Contact Info) Description 11/08/2021 Refill [facility] - Primary Care - [place] [address] [place] [address] Jackeline Dimas FOOD SERVICE HOTEL RUNNER, [facility] [address] [place] [address] Medication Refill Social History Tobacco [...] 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 file [...] Info) Description 11/12/2024 9:00 AM CDT [facility] 1 [place] [address] Amber Aldrich APRN, BILLBOARD ERECTOR HELPER [address] [place] [address] Discharge Disposition: Discharged to home or Selfcare 11/12/2024 9:15 AM CDT Appointment [facility] Nuclear Medicine [address] [place] [address] Amber Aldrich APRN, BILLBOARD ERECTOR HELPER #[address] [place] [address] Discharge Disposition: Discharged to home or Selfcare 11/12/2024 9:30 AM CDT Hospital Encounter [facility] Cardiology Stress [address] [place] [address] Amber Aldrich APRN, BILLBOARD ERECTOR HELPER [address] [place] [address] 11/12/2024 10:00 AM CDT Appointment [facility] Nuclear Medicine [address] [place] [address] Amber Aldrich APRN, BILLBOARD ERECTOR HELPER [address] [place] [address] Discharge Disposition: Discharged to home or Selfcare 11/17/2024 2:00 PM CDT Telemedicine [facility] [address] [place] [phone] Alize Acosta, RUSSELL, BILLBOARD ERECTOR HELPER [address] [place] [address] 11/18/2024 3:45 PM CDT Office Visit [facility] Endocrinology - [place] [address] [place] [address] David Salmon MD #[address] [address] 01/03/2025 11:30 AM CDT Office Visit [facility] Neurology - [place] [address] [place] [address] Rachelle Nava APRN, CUSTOMS APPRAISER [address] [place] [address] 03/04/2025 3:10 PM RETAIL MAINTENANCE TECHNICIAN Lab [facility] Primary [facility] - [place] [address] [place] [address] [place] Colon [facility] 03/04/2025 3:30 PM RETAIL MAINTENANCE TECHNICIAN Office Visit [facility] Primary [facility] - [place] [address] [place] [address] Tani Biggs PAC [address] [place] [address] 03/17/2025 1:30 PM RETAIL MAINTENANCE TECHNICIAN Lab [facility] Oncology Services [address] [place] [address] Melony Asif PAC [address] [place] [address] Discharge Disposition: Discharged to home or Selfcare 03/25/2025 1:20 PM RETAIL MAINTENANCE TECHNICIAN Office Visit [facility] Oncology Services [address] [place] [address] Melony Asif Stacey, PAC [address] [place] [address] Discharge Disposition: Discharged to home or Selfcare 04/25/2025 2:00 PM RETAIL MAINTENANCE TECHNICIAN Office Visit [facility] Cardiology - [place] [address] [place] [address] Laisha Griffin, DO [address] [address] 07/18/2025 1:00 PM CDT Office Visit [facility] Pulmonology & Sleep Medicine [facility] #[address] [place] [address] Dom Quiñonez MD #[address] [place] [address] documented as of this encounter Goals Goal [...] 19 04/18/2024 04/18/2024 04/18/2024 10:4 7 PM RETAIL MAINTENANCE TECHNICIAN Respiratory Rule-Out 05/06/2024 05/06/2024 025 9:20 AM RETAIL MAINTENANCE TECHNICIAN COVID - 19 05/06/2024 05/06/2024 05/06/2024 9:19 AM RETAIL MAINTENANCE TECHNICIAN Assessment Noted Time PHQ-9 Depression Total Score: 0 09/01/19 20 11:58 AM CDT documented as of this encounter Care Teams Language Instructor Relationship Specialty Start Date End Date Jackeline Dimas APRN, BILLBOARD ERECTOR HELPER [address] [place] [address] PCP - General Advanced Practice Nurse 07/31/17 Emilia Tang MD [address] [place] [address] PCP - General Family Medicine 06/07/22 03/25/23 Rebeka Trinidad MD [address] [place] [address] PCP - General Family Medicine 03/26/23 03/29/24 Lorri Leo APRN, BILLBOARD ERECTOR HELPER [address] [place] [address] PCP - General Certified Nurse Practitioner 03/30/24 04/20/24 Rebeka Trinidad MD [address] [place], [place] [phone] PCP - General Family Medicine 04/21/24 04/21/24 Lorri Leo APRN, BILLBOARD ERECTOR HELPER [address] [place] [address] [place], [place] [phone] PCP - General Certified Nurse Practitioner 04/22/24 05/30/24 Tani Biggs PAC [address] [place] [address] PCP - General Physician 05/31/24 Phil Jacobo MD #[address] [place] [address] Consulting Physician Neurology 03/07/21 Rajiv Mccormack, KELI [address] [place] [address] Nurse Practitioner Gastroenterology 03/07/21 Alize Acosta APRN, BILLBOARD ERECTOR HELPER [address] [place] [address] [facility] ([facility]) [employer] Advanced Practice Nurse 08/30/21 Dayo Chaney MD [address] [place] [address] High [employer] Admissions Representative Cardiovascular Disease - Cardiology 09/20/21 02/12/24 Juanita Mercado RN [place] Registered Nurse Cardiology 12/24/21 02/12/24 David Salmon MD #2 [facility] [address] Consulting Physician Endocrinology 01/15/22 Maurilio Farley MD #[address] [address] Consulting Physician Colon and Rectal Surgery 09/20/22 Physician, Candida Davis MD [address] [place] [address] Family Medicine 01/25/22 03/18/23 Dom Quiñonez MD #[address] [place] [address] Consulting Physician Pulmonary Disease 11/19/21 Rachelle Nava APRN, CUSTOMS APPRAISER #[address] [place] [address] Nurse Practitioner Advanced Practice Nurse 07/19/22 Irais Naylor APRN, BILLBOARD ERECTOR HELPER #2 [facility] [place] [address] Nurse Practitioner Cardiology 06/27/23 07/29/24 Sharri Gaspar MD 2 [facility] [place] [address] [address] Consulting Physician Cardiology 04/26/24 Amber Aldrich APRN, BILLBOARD ERECTOR HELPER [address] [place] [address] Nurse Practitioner Cardiology 07/30/24 documented as of this encounter
--- OUTSIDE RECORDS SUMMARY | 2024-11-11 14:44 | XMS_ITS ---
Author Organization [facility] Address [address] [place] [address] Care Team Providers Care Commercial Review Appraiser Name Role Phone Tani Biggs Primary Care Provider [phone] Active Problems Problem Noted Date Diagnosed Date History of kidney cancer 10/06/2023 Overview (10/06/2023): Images from the original note were not included. 03/27/23: NC. Renal lesion. CT + MRI () - right kidney mass ([facility] [place]). Creatinine 1.1. Hx of post-menopausal bleeding s/p [...] + MRI () - right kidney mass ([facility] [place]). Creatinine 1.1. Hx of post-menopausal bleeding s/p [...] + MRI () - right kidney mass ([facility] [place]). Creatinine 1.1. Hx of post-menopausal bleeding s/p [...] (04/29/2022): Added automatically from request for surgery [id number] Internal hemorrhoids 04/25/2022 Gastroparesis 05/23/2021 Erosive gastritis [...]
--- OUTSIDE RECORDS SUMMARY | 2024-11-11 14:44 | XMS_ITS | Encounter Summary ---
Author Organization [facility] Address [address] [place] [address] Phone Care Team Providers Care Oil Well Service Operator Helper Name Role Phone Phil Jacobo MD Unavailable [phone] Rajiv Mccormack NP Unavailable Unavailable Alize Acosta CERTIFIED PERFORMANCE TECHNOLOGIST, FLORAL ARRANGER Unavailable +[phone] Dayo Chaney MD Unavailable Juanita Hauser RN Unavailable Unavaila David Martinez MD Unavailable Emilia Tang MD Primary Care Provider [phone] Maurilio Farley MD Unavailable PhysicianCandida MD Unavailable Rebeka Trinidad MD Primary Care Provider + [phone] Dom Quiñonez MD Unavailable Rachelle Nava CERTIFIED PERFORMANCE TECHNOLOGIST, TIRE MOLDER Unavailable + [phone] Irais Naylor CERTIFIED PERFORMANCE TECHNOLOGIST, FLORAL ARRANGER Unavailable + [phone] Lorri Leo CERTIFIED PERFORMANCE TECHNOLOGIST, FLORAL ARRANGER Primary Care Provider + [phone] Rebeka Trinidad MD Primary Care Provider + [phone] Lorri Leo CERTIFIED PERFORMANCE TECHNOLOGIST, FLORAL ARRANGER Primary Care Provider + [phone] Sharri Gaspar MD Unavailable Tani Biggs Primary Care Provider + [phone] Valdemar Amber Dinora WELLS, FLORAL ARRANGER Unavailable Reason for Visit * Reason Comments Medication Refill Encounter Details Date Type Department Care Team (Late st Contact Info) Description 09/09/2022 Refill [facility] - Endocrinology - [place] #2 [place] [address] David Salmon MD #[address] [address] Medication Refill Social History Tobacco [...] 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 [...] Info) Description 11/12/2024 9:00 AM CDT [facility] 1 [place] [address] Amber Aldrich APRN, FLORAL ARRANGER #2 [place] [address] Discharge Disposition: Discharged to home or Selfcare 11/12/2024 9:15 AM CDT [facility] 1 [place] [address] Amber Aldrich APRN, FLORAL ARRANGER #2 [place] [address] Discharge Disposition: Discharged to home or Selfcare 11/12/2024 9:30 AM CDT [facility] Cardiology Stress 1 [place] [address] Amber Aldrich APRN, FLORAL ARRANGER [address] [place] [address] 11/12/2024 10:00 AM CDT [facility] 1 [place] [address] Amber Aldrich CERTIFIED PERFORMANCE TECHNOLOGIST, FLORAL ARRANGER #2 [place] [address] Discharge Disposition: Discharged to home or Selfcare 11/17/2024 2:00 PM CDT Telemedicine [facility] [address] [place] [address] [phone] Alize Acosta, CERTIFIED PERFORMANCE TECHNOLOGIST, FLORAL ARRANGER [address] [place] [address] 11/18/2024 3:45 PM CDT Office Visit [facility] - Endocrinology - [place] #2 [place] [address] David Salmon MD #[address] [address] 01/03/2025 11:30 AM CDT Office Visit [facility] Neurology - [place] #2 [place] [address] Rachelle Nava, CERTIFIED PERFORMANCE TECHNOLOGIST, TIRE MOLDER #[address] [place] [address] 03/04/2025 3:10 PM CARDIAC TECH Lab [facility] Primary Care - [place] [address] [place] [address] [facility] 03/04/2025 3:30 PM CARDIAC TECH Office Visit [facility] Primary Care - [place] [address] [place] [address] Tani Biggs PAC [address] [place] [address] 03/17/2025 1:30 PM CARDIAC TECH Lab [facility] - Cancer Center Oncology Services [address] [place] [address] Melony Asif August, PAC [address] [place] [address] Discharge Disposition: Discharged to home or Selfcare 03/25/2025 1:20 PM CARDIAC TECH [facility] [address] [place] [address] Melony Asif August, PAC [address] [place] [address] Discharge Disposition: Discharged to home or Selfcare 04/25/2025 2:00 PM CARDIAC TECH Office Visit [facility] - Cardiology - [place] [address] [place] [address] Laisha Griffin, DO [address] [address] 07/18/2025 1:00 PM CDT Office Visit [facility] - Pulmonology & Sleep Medicine [facility] #2 [place] [address] Dom Quiñonez MD #2 [place] [address] documented as of this encounter Goals Goal [...] diet Depression Depression Improving(0 03/15/2022 2:27 PM CARDIAC TECH) No Breanne Saldana, TYPEWRITER MECHANIC Note: Goal/Objective: Decrease symptoms of depression [...] 19 04/18/2024 04/18/2024 04/18/2024 10:4 7 PM CARDIAC TECH Respiratory Rule-Out 05/06/2024 05/06/2024 025 9:20 AM CARDIAC TECH COVID - 05/06/2024 05/06/2024 05/06/2024 9:19 AM CARDIAC TECH Assessment Noted Time PHQ-9 Depression Total Score: 24 022 3:31 PM CARDIAC TECH documented as of this encounter Care Teams Oil Well Service Operator Helper Relationship Specialty Start Date End Date Emilia Tang MD [address] [place] [address] PCP - General Family Medicine 06/07/22 03/25/23 Rebeka Trinidad MD [address] [place] [address] PCP - General Family Medicine 03/26/23 03/29/24 Lorri Leo APRN, FLORAL ARRANGER [address] [place] [address] PCP - General Certified Nurse Practitioner 03/30/24 04/20/24 Rebeka Trinidad MD [address] [place] [address] PCP - General Family Medicine 04/21/24 04/21/24 Lorri Leo APRN, FLORAL ARRANGER [address] [place] [address] PCP - General Certified Nurse Practitioner 04/22/24 05/30/24 Tani Biggs, PAC [address] [place] [address] PCP - General Physician Buckle Sewer 05/31/24 Phil Jacobo MD #2 [place] [address] Consulting Physician Neurology 03/07/21 Rajiv Mccormack, KELI [address] [place] [address] Nurse Practitioner Gastroenterology 03/07/21 Alize Acosta, CERTIFIED PERFORMANCE TECHNOLOGIST, FLORAL ARRANGER [address] [place] [address] Virtual Advanced Care (VAC) SLINGER SEQUINS Advanced Practice Nurse 08/30/21 Dayo Chaney MD [address] [place] [address] Shop Supervisor Cardiovascular Disease - Cardiology 09/20/21 02/12/24 Juanita Mercado, [place] Registered Nurse Cardiology 12/24/21 02/12/24 David Salmon MD #[address] [address] Consulting Physician Endocrinology 01/15/22 Maurilio Farley MD #[address] [address] Consulting Physician Colon and Rectal Surgery 09/20/22 PhysicianCandida MD [address] [place] [address] Family Medicine 01/25/22 03/18/23 Dom Quiñonez MD #2 [place] [address] Consulting Physician Pulmonary Disease 11/19/21 Rachelle Nava, CERTIFIED PERFORMANCE TECHNOLOGIST, TIRE MOLDER #2 [place] [address] Nurse Practitioner Advanced Practice Nurse 07/19/22 Irais Naylor, CERTIFIED PERFORMANCE TECHNOLOGIST, FLORAL ARRANGER #2 [facility] [address] [place] [address] Nurse Practitioner Cardiology 06/27/23 07/29/24 Sharri Gaspar MD 2 [facility] [place] [facility] [address] [place] [address] Consulting Physician Cardiology 04/26/24 Amber Aldrich APRN, FLORAL ARRANGER [address] [place] [address] Nurse Practitioner Cardiology 07/30/24 documented as of this encounter
--- OUTSIDE RECORDS SUMMARY | 2024-11-11 14:44 | XMS_ITS | Encounter Summary ---
Author Organization [facility] Address [address] [place] [address] Phone Care Team Providers Care Commissary Manager Name Role Phone Phil Jacobo MD Unavailable [phone] Rajiv Mccormack NP Unavailable Unavailable Alize Acosta APRN, CALKER Unavailable David Salmon MD Unavailable Maurilio Farley MD Unavailable Dom Quiñonez MD Unavailable Rachelle Nava APRN, SOLAR FABRICATION TECHNICIAN Unavailable + [phone] Sharri Gaspar MD Unavailable Tani Biggs PAC Primary Care Provider [phone] Amber Aldrich SCRAPPER, CALKER Unavailable Encounter Details Date Type Department Care Team (Late st Contact Info) Description 09/16/2024 Results Follow-Up [facility] - Cancer Center Oncology Services [address] [place] [address] Melony Asif Stacey, PAC [address] [place] [address] VITAMIN B12, FERRITIN, IRON,TRANSFERN,CALC. TIBC,%SAT, Additional followed-up results: 4 Social History Tobacco Use Types Packs/Day Years Used Date Smoking Tobacco: Some Days Cigarettes 1 37.1 Started: 1984; Last attempted to quit: 04/12/2021 Passive Smoke Exposure: Never Smokeless Tobacco: Never Alcohol Use Standard Drinks/Week Comments Not Currently 0 (1 standard drink = 0.6 oz pur e alcohol) Last drink in 2020 [facility] Utilities Answer Date Recorded In the [...] How often do you attend chur or nondenominational services? 1 to 4 times per year 03/22/2024 Do you belong to any clubs o r organizations such as gnosticism groups, unions, fraternal or athletic groups, or [...] Total Score - Questions 1-9 19 08/09 [facility] - Occupational Stress [...] place to sleep or slept in a care home (including now)? No 03/24/2023 Housing Stability [...] any time in the past 12 [facility], were you homeless or living in a care home (including now)? 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 on file Not on file documented as of this encounter Plan of Treatment Upcoming Encounters Date Type Department Care Team (Latest Contact Info) Description 11/12/2024 9:00 AM CDT [facility] 1 [place] [address] Amber Aldrich APRN, CALKER [address] [place] [address] Discharge Disposition: Discharged to home or Selfcare 11/12/2024 9:15 AM CDT [facility] 1 [place] [address] Amber Aldrich APRN, CALKER [address] [place] [address] Discharge Disposition: Discharged to home or Selfcare 11/12/2024 9:30 AM CDT Hospital Encounter [facility] Cardiology Stress [address] [place] [address] Amber Aldrich APRN, CALKER [address] [place] [address] 11/12/2024 10:00 AM CDT Appointment [facility] Nuclear Medicine 1 [place] [address] Amber Aldrich APRN, CALKER [address] [place] [address] Discharge Disposition: Discharged to home or Selfcare 11/17/2024 2:00 PM CDT Telemedicine [facility] [address] [place] [address] Alize Acosta, SCRAPPER, CALKER [address] [place] [address] 11/18/2024 3:45 PM CDT Office Visit [facility] Endocrinology - [place] #[address] [place] [address] David Salmon MD #[address] [address] 01/03/2025 11:30 AM CDT Office Visit [facility] Neurology - [place] [address] [place] [address] Rachelle Nava, SCRAPPER, SOLAR FABRICATION TECHNICIAN #[address] [place] [address] 03/04/2025 3:10 PM SEAMSTRESS FITTER Lab [facility] - [place] [address] [place] [address] [facility] 03/04/2025 3:30 PM SEAMSTRESS FITTER Office Visit [facility] Primary [facility] - [place] [address] [place] [address] Tani Biggs PAC [address] [place] [address] 03/17/2025 1:30 PM SEAMSTRESS FITTER Lab [facility] - Cancer Center Oncology Services [address] [place] [address] Melony Asif August, PAC [address] [place] [address] Discharge Disposition: Discharged to home or Selfcare 03/25/2025 1:20 PM SEAMSTRESS FITTER Office Visit [facility] Cancer Center Oncology Services [address] [place] [address] Melony Asif Stacey, PAC [address] [place] [address] Discharge Disposition: Discharged to home or Selfcare 04/25/2025 2:00 PM SEAMSTRESS FITTER Office Visit [facility] - Cardiology - [place] #[address] [place] [address] Laisha Griffin, DO [address] [address] 07/18/2025 1:00 PM CDT Office Visit [facility] - Pulmonology & Sleep Medicine [facility] #2 [place] [address] Dom Quiñonez MD #2 [place] [address] documented as of this encounter Goals Goal [...] making a change Department associated with goal: [facility] Steps [...] diet Depression Depression Improving(0 03/15/2022 2:27 PM SEAMSTRESS FITTER) No Breanne Saldana LCSW Note: Goal/Objective: Decrease symptoms of depression associated with grief and loss as well as the increase of anxiety and panic with follow up with out patient counseling. Anticipated Time Frame for Goal Completion: 2 week Depression and Anxiety Depression On track(07/13 4:30 PM CDT) Yes Ariela Hurtado SOCIAL WORKER Note: I don't have no energy Goal/Objective: Decrease depression. Anticipated Time Frame for Goal Completion: 6 months Goal Reviewed with: patient Readiness to change: Ready to change Department associated with goal: [facility] Steps [...] On track(08/24 2:42 PM CDT) No Xiomy Lidna RN Note: Goal: I will reduce my [...] documented as of this encounter Care Teams Commissary Manager Relationship Specialty Start Date End Date Tani Biggs, PAC [address] [place] [address] PCP - General Physician Contact Clerk 05/31/24 Phil Jacobo MD #2 [place] [address] Consulting Physician Neurology 03/07/21 Rajiv Mccormack, KELI [address] [place] [address] Nurse Practitioner Gastroenterology 03/07/21 Alize Acosta APRN, CALKER [address] [place] [address] Virtual Advanced Care (VAC) LINEN ROOM CUSTODIAN Advanced Practice Nurse 08/30/21 David Salmon MD [address] [place] [address] Consulting Physician Endocrinology 01/15/22 Maurilio Farley MD #[address] [address] Consulting Physician Colon and Rectal Surgery 09/20/22 Dom Quiñonez MD #2 [facility] [place] [address] Consulting Physician Pulmonary Disease 11/19/21 Rachelle Nava APRN, SOLAR FABRICATION TECHNICIAN #[address] [place] [address] Nurse Practitioner Advanced Practice Nurse 07/19/22 Sharri Gaspar MD 2 [facility] [place] [address] [address] Consulting Physician Cardiology 04/26/24 Amber Aldrich APRN, CALKER [address] [place] [address] Nurse Practitioner Cardiology 07/30/24 documented as of this encounter
--- OUTSIDE RECORDS SUMMARY | 2024-11-11 14:44 | XMS_ITS | Encounter Summary ---
Author Organization [facility] Address [address] [place] [address] Phone Care Team Providers Care Mortgage Loan Processing Clerk Name Role Phone Jackeline Dimas SALES DEVELOPMENT COORDINATOR, EDUCATION PROGRAM ASSOCIATE Primary Care Provider Fiona Martinez GASTROENTEROLOGY TEACHER Unavailable Unavailab Phil Ellis MD Unavailable [phone] Rajiv Mccormack NP Unavailable Unavailable Renita Quezada RN Unavailable Unavailable Alize Acosta SALES DEVELOPMENT COORDINATOR, EDUCATION PROGRAM ASSOCIATE Unavailable [phone] Dayo Chaney MD Unavailable Juanita Hauser RN Unavailable Unavaila David Martinez MD Unavailable Emilia Tang MD Primary Care Provider [phone] Maurilio Farley MD Unavailable Candida Turner MD Unavailable Rebeka Trinidad MD Primary Care Provider + [phone] Dom Quiñonez MD Unavailable Rachelle Nava SALES DEVELOPMENT COORDINATOR, SCOOP FILLER Unavailable + [phone] Irais Naylor SALES DEVELOPMENT COORDINATOR, EDUCATION PROGRAM ASSOCIATE Unavailable [phone] Lorri Leo Annetta SALES DEVELOPMENT COORDINATOR, EDUCATION PROGRAM ASSOCIATE Primary Care Provider + [phone] Rebeka Trinidad MD Primary Care Provider [phone] AhmetAngélicamando Littlejohn SALES DEVELOPMENT COORDINATOR, EDUCATION PROGRAM ASSOCIATE Primary Care Provider [phone] Sharri Gaspar MD Unavailable Tani Biggs [facility] Primary Care Provider + [phone] Amber Aldrich SALES DEVELOPMENT COORDINATOR, EDUCATION PROGRAM ASSOCIATE Unavailable Reason for Visit * Reason Comments Medication Refill Encounter Details Date Type Department Care Team (Late st Contact Info) Description 02/02/2020 Refill [facility] - Primary Care - [place] [address] [place] [address] Belkis Mcnair APRN, [facility] [address] [place] [address] Medication Refill Social History Tobacco Use Types [...] 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 Yes 02/01/2020 11:29 AM SERVICE NOW DEVELOPER documented as of this encounter Plan of Treatment Upcoming Encounters Date Type Department Care Team (Latest Contact Info) Description 11/12/2024 9:00 AM CDT [facility] 1 [place] [address] Amber Aldrich APRN, EDUCATION PROGRAM ASSOCIATE [address] [place] [address] Discharge Disposition: Discharged to home or Selfcare 11/12/2024 9:15 AM CDT [facility] 1 [place] [address] Amber Aldrich APRN, EDUCATION PROGRAM ASSOCIATE #[address] [place] [address] Discharge Disposition: Discharged to home or Selfcare 11/12/2024 9:30 AM CDT Hospital [facility] Cardiology Stress [address] [place] [address] Amber Aldrich APRN, EDUCATION PROGRAM ASSOCIATE #[address] [place] [address] 11/12/2024 10:00 AM CDT [facility] [address] [place] [address] Amber Aldrich APRN, EDUCATION PROGRAM ASSOCIATE [address] [place] [address] Discharge Disposition: Discharged to home or Selfcare 11/17/2024 2:00 PM CDT Telemedicine [facility] [address] [place] [address] Alize Acosta, SALES DEVELOPMENT COORDINATOR, EDUCATION PROGRAM ASSOCIATE [address] [place] [address] 11/18/2024 3:45 PM CDT Office Visit [facility] - Endocrinology - [place] #[address] [place] [address] David Salmon MD #[address] [address] 01/03/2025 11:30 AM CDT Office Visit [facility] - Neurology - [place] #[address] [place] [address] Rachelle Nava APRN, SCOOP FILLER #2 [place] [address] 03/04/2025 3:10 PM SERVICE NOW DEVELOPER Lab [facility] Primary Care - [place] [facility] [place] [address] [facility] 03/04/2025 3:30 PM SERVICE NOW DEVELOPER Office Visit [facility] Primary Care - [place] [address] [place] [address] Tani Biggs PAC [facility] [place] [address] 03/17/2025 1:30 PM SERVICE NOW DEVELOPER [facility] [address] [place] [address] Melony Asif PAC [address] [place] [address] Discharge Disposition: Discharged to home or Selfcare 03/25/2025 1:20 PM SERVICE NOW DEVELOPER [facility] [address] [place] [address] Melony Asif, PAC [address] [place] [address] Discharge Disposition: Discharged to home or Selfcare 04/25/2025 2:00 PM SERVICE NOW DEVELOPER Office Visit [facility] - Cardiology - [place] [address] [place] [address] Laisha Griffin, DO [address] [address] 07/18/2025 1:00 PM CDT [facility] - Pulmonology & [facility] #[address] [place] [address] Dom Quiñonez MD #2 [place] [address] documented as of this encounter Visit Diagnoses Not on filedocumented in this encounter Additional Health Concerns Infection Onset Date Last Indicated Resolved Time COVID - 19 01/08/2021 01/08/2021 01/28/2021 12:1 6 AM SERVICE NOW DEVELOPER COVID - 19 03/12/2021 03/12/2021 04/01/2021 12:1 6 AM SERVICE NOW DEVELOPER COVID - 19 12/15/2021 12/15/2021 12/15/2021 7:26 PM CDT COVID - 19 Confirmed 12/15/2021 12/15/2021 022 12:16 AM CDT COVID - 19 04/18/2024 04/18/2024 04/18/2024 10:4 7 PM SERVICE NOW DEVELOPER Respiratory Rule-Out 05/06/2024 05/06/2024 025 9:20 AM SERVICE NOW DEVELOPER COVID - 19 05/06/2024 05/06/2024 05/06/2024 9:19 AM SERVICE NOW DEVELOPER Assessment Noted Time PHQ-9 Depression Total Score: 0 09/01/19 20 11:58 AM CDT documented as of this encounter Care Teams Mortgage Loan Processing Clerk Relationship Specialty Start Date End Date Jackeline Dimas, SALES DEVELOPMENT COORDINATOR, EDUCATION PROGRAM ASSOCIATE [address] [place] [address] PCP - General Advanced Practice Nurse 07/31/17 Emilia Tang MD [address] [place] [address] PCP - General Family Medicine 06/07/22 03/25/23 Rebeka Trinidad MD [address] [place] [address] PCP - General Family Medicine 03/26/23 03/29/24 Lorri Leo SALES DEVELOPMENT COORDINATOR, EDUCATION PROGRAM ASSOCIATE [address] [place] [address] PCP - General Certified Nurse Practitioner 03/30/24 04/20/24 Rebeka Trinidad MD [address] [place] [address] PCP - General Family Medicine 04/21/24 04/21/24 Lorri Leo SALES DEVELOPMENT COORDINATOR, EDUCATION PROGRAM ASSOCIATE [address] [place] [address] PCP - General Certified Nurse Practitioner 04/22/24 05/30/24 Tani Biggs, PAC [address] [place] [address] PCP - General Physician Residence Life Director 05/31/24 Fiona Martinez, MARSHA [place] Planning Consultant 03/01/21 08/23/21 Phil Jacobo MD #2 [place] [address] Consulting Physician Neurology 03/07/21 Rajiv Mccormack, KELI [address] [place] [address] Nurse Practitioner Gastroenterology 03/07/21 Renita Quezada RN [place] Planning Consultant 05/09/21 08/23/21 Alize Acosta, SALES DEVELOPMENT COORDINATOR, EDUCATION PROGRAM ASSOCIATE [address] [place] [address] Virtual Advanced Care (VAC) RESIDENTIAL CONCIERGE Advanced Practice Nurse 08/30/21 Dayo Chaney MD [address] [place] [address] Engineering Research Manager Cardiovascular Disease - Cardiology 09/20/21 02/12/24 Juanita Mercado RN [place] Registered Nurse Cardiology 12/24/21 02/12/24 David Salmon MD #[address] [address] Consulting Physician Endocrinology 01/15/22 Maurilio Farley MD #[address] [address] Consulting Physician Colon and Rectal Surgery 09/20/22 PhysicianCandida MD [address] [place] [address] Family Medicine 01/25/22 03/18/23 Dom Quiñonez MD #2 [place] [address] Consulting Physician Pulmonary Disease 11/19/21 Rachelle Nava APRN, SCOOP FILLER #[address] [facility] [address] Nurse Practitioner Advanced Practice Nurse 07/19/22 Irais Naylor, SALES DEVELOPMENT COORDINATOR, EDUCATION PROGRAM ASSOCIATE [address] [facility] [address] [place] [address] Nurse Practitioner Cardiology 06/27/23 07/29/24 Sharri Gaspar MD [address] [place] [address] Consulting Physician Cardiology 04/26/24 Amber Aldrich APRN, EDUCATION PROGRAM ASSOCIATE [address] [place] [address] Nurse Practitioner Cardiology 07/30/24 documented as of this encounter
--- OUTSIDE RECORDS SUMMARY | 2024-11-11 14:44 | XMS_ITS | Encounter Summary ---
Author Organization [facility] Address [address] [place] [address] Phone Care Team Providers Care Station Jailer Name Role Phone Phil Jacobo MD Unavailable [phone] Rajiv Mccormack NP Unavailable Unavailable Alize Acosta APRN, ROVING SIZER Unavailable [phone] Dayo Chaney MD Unavailable Juanita Hauser RN Unavailable UnavailDavid Alexandre MD Unavailable Maurilio Farley MD Unavailable Rebeka Trinidad MD Primary Care Provider + [phone] Dom Quiñonez MD Unavailable Rachelle Nava PARALEGALS, DRY ROOM OPERATOR Unavailable + [phone] Irais Naylor PARALEGALS, ROVING SIZER Unavailable + [phone] Lorri Leo PARALEGALS, ROVING SIZER Primary Care Provider + [phone] Rebeka Trinidad MD Primary Care Provider + [phone] Lorri Leo PARALEGALS, ROVING SIZER Primary Care Provider + [phone] Sharri Gaspar MD Unavailable Tani Biggs PAC Primary Care Provider [phone] Amber Aldrich APRN, ROVING SIZER Unavailable Reason for Visit * Reason Comments Medication Refill Encounter Details Date Type Department Care Team (Late st Contact Info) Description 10/31/2023 Refill [facility] - Neurology [facility] [address] [place] [address] Rachelle Nava, RUSSELL, DRY ROOM OPERATOR [address] [place] [address] Medication Refill Social History Tobacco Use Types Packs/Day Years Used Date Smoking Tobacco: Former Cigarettes 1 37.1 1 985 - 04/12/2021 Smokeless Tobacco: Never Alcohol Use Standard Drinks/Week Comments Not Currently 0 (1 standard drink = 0.6 oz pur e alcohol) last drank [facility] Utilities Answer Date Recorded In the past 12 months has [employer] electric, gas, oil, or water company threatened [...] Never 09/08/2023 How often do you attend [facility] or judaism services? 1 to 4 times per year 09/08/2023 Do you belong to any clubs o r organizations such as mu-ism groups, unions, fraternal or athletic groups, or [...] Total Score - Questions 1-9 18 08/3 [facility] Occupat community healthal [facility] - Occupational Stress Questionnaire Answer [...] place to sleep or slept in a fpc (including now)? No 03/24/2023 Housing Stability Vital [...] were you homeless or living in a fpc (including now)? 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 Not on file documented as of this encounter Plan of Treatment Upcoming Encounters Date Type Department Care Team (Latest Contact Info) Description 11/12/2024 9:00 AM CDT [facility] [address] [place] [address] Amber Aldrich APRN, ROVING SIZER [address] [place] [address] Discharge Disposition: Discharged to home or Selfcare 11/12/2024 9:15 AM CDT [facility] 1 [place] [address] Amber Aldrich APRN, ROVING SIZER [address] [place] [address] Discharge Disposition: Discharged to home or Selfcare 11/12/2024 9:30 AM CDT [facility] Card[facility] Stress 1 [place] [address] Amber Aldrich APRN, ROVING SIZER [address] [place] [address] 11/12/2024 10:00 AM CDT [facility] Nuclear Medicine 1 [place] [address] Amber Aldrich PARALEGALS, ROVING SIZER [address] [place] [address] Discharge Disposition: Discharged to home or Selfcare 11/17/2024 2:00 PM CDT Telemedicine [facility] [address] [place] [address] Alize Acosta, PARALEGALS, ROVING SIZER [address] [place] [address] 11/18/2024 3:45 PM CDT Office Visit [facility] - Endocrinology - [place] [address] [place] [address] David Salmon MD #[address] [address] 01/03/2025 11:30 AM CDT [facility] - [place] [address] [place] [address] Rachelle Nava PARALEGALS, DRY ROOM OPERATOR [address] [place] [address] 03/04/2025 3:10 PM RETURNED TELEPHONE EQUIPMENT APPRAISER Lab [facility] Primary Care - [address] [place] [address] [facility], [facility] 03/04/2025 3:30 PM RETURNED TELEPHONE EQUIPMENT APPRAISER [facility] [place] [address] Tani Biggs, [facility] [address] [place] [address] 03/17/2025 1:30 PM RETURNED TELEPHONE EQUIPMENT APPRAISER Lab [facility] Oncology Services [address] [place] [address] [facility], [facility] [address] [place] [address] Discharge Disposition: Discharged to home or Selfcare 03/25/2025 1:20 PM RETURNED TELEPHONE EQUIPMENT APPRAISER Office Visit [facility] Oncology Services [address] [place] [address] [facility], [facility] [address] [place] [address] Discharge Disposition: Discharged to home or Selfcare 04/25/2025 2:00 PM RETURNED TELEPHONE EQUIPMENT APPRAISER Office Visit [facility] - Cardiology - [place] [address] [place] [address] Laisha Griffin, DO [address] [address] 07/18/2025 1:00 PM CDT Office Visit [facility] - Pulmonology & Sleep Medicine [facility] [address] [place] [address] Dom Quiñonez MD [address] [place] [address] documented as of this encounter Goals Goal Patient Goal Type Associated Problems Recent Progress Patient-Stated? Author ACTIVITY Activity No change(08/08 2:42 PM CDT) Yes Maritza Vanegas, RN Note: Bonny will walk five days a week. Goal Reviewed with: Bonny Readiness to change: Department associated with goal: [facility] Steps to achieve goal: Walking 5 days a week I want to be able to be around people and feel less depressed. Behavioral Health Worsening(0 09/22/2023 3:12 PM CDT) Yes Hilda Tinajero [facility] Note: Goal/Objective: Decrease symptoms of depression and anxiety. Anticipated Time Frame for Goal Completion: 3 months Goal Reviewed with: patient Readiness to change: Thinking about making a change Department associated with goal: [facility] Steps to achieve goal: [...] diet Depression Depression Improving(0 03/15/2022 2:27 PM RETURNED TELEPHONE EQUIPMENT APPRAISER) No Breanne Saldana, LANDSCAPE LABORER Note: Goal/Objective: Decrease symptoms of depression associated [...] 19 04/18/2024 04/18/2024 04/18/2024 10:4 7 PM RETURNED TELEPHONE EQUIPMENT APPRAISER Respiratory Rule-Out 05/06/2024 05/06/2024 025 9:20 AM RETURNED TELEPHONE EQUIPMENT APPRAISER COVID - 05/06/2024 05/06/2024 05/06/2024 9:19 AM RETURNED TELEPHONE EQUIPMENT APPRAISER Assessment Noted Time PHQ-9 Depression Total Score: 18 023 9:24 AM CDT documented as of this encounter Care Teams Station Jailer Relationship Specialty Start Date End Date Rebeka Trinidad MD [address] [place] [address] PCP - General Family Medicine 03/26/23 03/29/24 Lorri Leo APRN, ROVING SIZER [address] [place] [address] PCP - General Certified Nurse Practitioner 03/30/24 04/20/24 Rebeka Trinidad MD [address] [place] [address] PCP - General Family Medicine 04/21/24 04/21/24 Lorri Leo APRN, ROVING SIZER [address] [place] [address] PCP - General Certified Nurse Practitioner 04/22/24 05/30/24 Tani Biggs, PAC [address] [place] [address] PCP - General Physician And Taxi Instructor Bus Trolley 05/31/24 Phil Jacobo MD [address] [place] [address] Consulting Physician Neurology 03/07/21 Rajiv Mccormack, KELI [address] [place] [address] Nurse Practitioner Gastroenterology 03/07/21 Alize Acosta, PARALEGALS, ROVING SIZER [address] [place] [address] [facility] (VAC) RESOURCE DEVELOPMENT MANAGER Advanced Practice Nurse 08/30/21 Dayo Chaney MD [address] [place] [address] Asl Interpreter Cardiovascular Disease - Cardiology 09/20/21 02/12/24 Juanita Mercado RN [place] Registered Nurse Cardiology 12/24/21 02/12/24 David Salmon MD #[address] [phone] Consulting Physician Endocrinology 01/15/22 Maurilio Farley MD #[address] [id number] Consulting Physician Colon and Rectal Surgery 09/20/22 Dom Quiñonez MD [address] [place] [address] Consulting Physician Pulmonary Disease 11/19/21 Rachelle Nava APRN, DRY ROOM OPERATOR [address] [place] [address] Nurse Practitioner Advanced Practice Nurse 07/19/22 Irais Naylor APRN, ROVING SIZER [address]2 [facility] [address] [place] [address] Nurse Practitioner Cardiology 06/27/23 07/29/24 Sharri Gaspar MD [address] [facility] [address] [place] [address] Consulting Physician Cardiology 04/26/24 Amber Aldrich APRN, ROVING SIZER [address] [place] [address] Nurse Practitioner Cardiology 07/30/24 documented as of this encounter
--- OUTSIDE RECORDS SUMMARY | 2024-11-11 14:44 | XMS_ITS ---
Author Organization [facility] Address [address] [place] [address] Phone Care Team Providers Care Agricultural Services Director Name Role Phone Phil Jacobo MD Unavailable [phone] Rajiv Mccormack NP Unavailable Unavailable Alize Acosta APRN, APPLICATIONS DEVELOPER Unavailable David Salmon MD Unavailable Maurilio Farley MD Unavailable Dom Quiñonez MD Unavailable Rachelle Nava APRN, HUMAN GEOGRAPHY INSTRUCTOR Unavailable + [phone] Sharri Gaspar MD Unavailable Tani Biggs Primary Care Provider [phone] Amber Aldrich APRN, APPLICATIONS DEVELOPER Unavailable [facility] Status:Enrolled (Active) Start date:01/25/2022 Enrollment date:02/19/2023 Continued Care and Services Coordination
--- OUTSIDE RECORDS SUMMARY | 2024-11-11 14:44 | XMS_ITS | Encounter Summary ---
Author Organization [facility] Address [address] [place] [address] Phone Care Team Providers Care Land Surveyor Name Role Phone Phil Jacobo MD Unavailable [phone] Rajiv Mccormack NP Unavailable Unavailable Alize Acosta STAFF RESEARCH SCIENTIST, CUTTER DOWN Unavailable [phone] Dayo Chaney MD Unavailable Juanita Hauser RN Unavailable Unavaila David Martinez MD Unavailable Emilia Tang MD Primary Care Provider [phone] Maurilio Farley MD Unavailable PhysicianCandida MD Unavailable Rebeka Trinidad MD Primary Care Provider + [phone] Dom Quiñonez MD Unavailable Rachelle Nava STAFF RESEARCH SCIENTIST, RCIS Unavailable + [phone] Irais Naylor STAFF RESEARCH SCIENTIST, CUTTER DOWN Unavailable + [phone] Lorri Leo STAFF RESEARCH SCIENTIST, CUTTER DOWN Primary Care Provider + [phone] Rebeka Trinidad MD Primary Care Provider + [phone] Lorri Leo STAFF RESEARCH SCIENTIST, CUTTER DOWN Primary Care Provider + [phone] Sharri Gaspar MD Unavailable Tani Biggs Primary Care Provider + [phone] ValdemarAmber Dinora WELLS, CUTTER DOWN Unavailable Reason for Visit * Reason Comments Medication Refill Encounter Details Date Type Department Care Team (Late st Contact Info) Description 12/01/2022 Refill [facility] - Primary Care - [place] [address] [place] [address] Emilia Tang MD [address] [place] [address] Medication Refill Social History Tobacco [...] 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 Nuclear Medicine [address] [place] [address] Amber Aldrich APRN, CUTTER DOWN [address] [place] [address] Discharge Disposition: Discharged to home or Selfcare 11/12/2024 9:30 AM CDT Hospital Encounter [facility] Cardiology Stress [address] [place] [address] Amber Aldrich APRN, CUTTER DOWN [address] [place] [address] 11/12/2024 10:00 AM CDT Appointment [facility] Nuclear Medicine [address] [place] [address] Amber Aldrich APRN, CUTTER DOWN [address] [place] [address] Discharge Disposition: Discharged to home or Selfcare 11/17/2024 2:00 PM CDT Telemedicine [facility] [address] [place] [address] Alize Acosta, STAFF RESEARCH SCIENTIST, CUTTER DOWN [address] [place] [address] 11/18/2024 3:45 PM CDT Office Visit [facility] Endocrinology - [place] [address] [place] [address] David Salmon MD #[address] [address] 01/03/2025 11:30 AM CDT Office [facility] Neurology [facility] [address] [place] [address] Rachelle Nava, STAFF RESEARCH SCIENTIST, RCIS [address] [place] [address] 03/04/2025 3:10 PM SPECIAL EDUCATION CURRICULUM SPECIALIST Lab [facility] - [place] [address] [place] [address] [facility] 03/04/2025 3:30 PM SPECIAL EDUCATION CURRICULUM SPECIALIST Office Visit [facility] - [place] [address] [place] [address] Tani Biggs [facility] [address] [place] [address] 03/17/2025 1:30 PM SPECIAL EDUCATION CURRICULUM SPECIALIST Lab [facility] - Cancer Center Oncology Services [address] [place] [address] Melony Asif PAC [address] [place] [address] Discharge Disposition: Discharged to home or Selfcare 03/25/2025 1:20 PM SPECIAL EDUCATION CURRICULUM SPECIALIST Office Visit [facility] Oncology Services [address] [place] [address] Melony Asif August, PAC [address] [place] [address] Discharge Disposition: Discharged to home or Selfcare 04/25/2025 2:00 PM SPECIAL EDUCATION CURRICULUM SPECIALIST Office Visit [facility] - Cardiology - [place] [address] [place] [address] Laisha Griffin, DO [address] [address] 07/18/2025 1:00 PM CDT Office Visit [facility] - Pulmonology & Sleep Medicine [facility] [address] [place] [address] Dom Quiñonez MD [address] [place] [address] documented as of this encounter Goals Goal [...] diet Depression Depression Improving(0 03/15/2022 2:27 PM SPECIAL EDUCATION CURRICULUM SPECIALIST) No Breanne Saldana LCSW Note: Goal/Objective: [...] 19 04/18/2024 04/18/2024 04/18/2024 10:4 7 PM SPECIAL EDUCATION CURRICULUM SPECIALIST Respiratory Rule-Out 05/06/2024 05/06/2024 025 9:20 AM SPECIAL EDUCATION CURRICULUM SPECIALIST COVID - 19 05/06/2024 05/06/2024 05/06/2024 9:19 AM SPECIAL EDUCATION CURRICULUM SPECIALIST Assessment Noted Time PHQ-9 Depression Total Score: 18 023 9:24 AM CDT documented as of this encounter Care Teams Land Surveyor Relationship Specialty Start Date End Date Emilia Tang MD [address] [place] [address] PCP - General Family Medicine 06/07/22 03/25/23 Rebeka Trinidad MD [address] [place] [address] PCP - General Family Medicine 03/26/23 03/29/24 Lorri Leo APRN, CUTTER DOWN [address] [place] [address] PCP - General Certified Nurse Practitioner 03/30/24 04/20/24 Rebeka Trinidad MD [address] [place] [address] PCP - General Family Medicine 04/21/24 04/21/24 Lorri Leo APRN, CUTTER DOWN [address] [place] [address] PCP - General Certified Nurse Practitioner 04/22/24 05/30/24 Tani Biggs PAC [address] [place] [address] PCP - General Physician Chief Quality Officer 05/31/24 Phil Jacobo MD #[address] [place] [address] Consulting Physician Neurology 03/07/21 Rajiv Mccormack, KELI [address] [place] [address] Nurse Practitioner Gastroenterology 03/07/21 Alize Acosta, STAFF RESEARCH SCIENTIST, CUTTER DOWN [address] [place], [place] [address] Virtual Advanced Care (VAC) BONE CHAR OPERATOR Advanced Practice Nurse 08/30/21 Dayo Chaney MD [address] [place] [address] Financial Sales Professional Cardiovascular Disease - Cardiology 09/20/21 02/12/24 Juanita Mercado RN [place] Registered Nurse Cardiology 12/24/21 02/12/24 Daivd Salmno MD #[address] [address] Consulting Physician Endocrinology 01/15/22 Maurilio Farley MD #[address] [address] Consulting Physician Colon and Rectal Surgery 09/20/22 Physician, Candida Davis MD [address] [place], [place] [address] Family Medicine 01/25/22 03/18/23 Dom Qiuñonez MD #[address] [place] [address] Consulting Physician Pulmonary Disease 11/19/21 Rachelle Nava APRN, RCIS [address] [place] [address] Nurse Practitioner Advanced Practice Nurse 07/19/22 Irais Naylor APRN, CUTTER DOWN [address]2 [facility] [address] [place] [address] Nurse Practitioner Cardiology 06/27/23 07/29/24 Sharri Gaspar MD 2 [facility] [address] [place] [address] Consulting Physician Cardiology 04/26/24 Amber Aldrich APRN, CUTTER DOWN [address] [place] [address] Nurse Practitioner Cardiology 07/30/24 documented as of this encounter
--- OUTSIDE RECORDS SUMMARY | 2024-11-11 14:44 | XMS_ITS | Encounter Summary ---
Author Organization [employer] Address [address] [place] [address] Care Team Providers Care Bowling Pin Setters Installer Name Role Phone Unavailable Primary Care Provider Unavailabl e Encounter Details Date Type Department Care Team (Late st Contact Info) Description 11/09/2024 External Device Data [place] ABSTRACTION Provider, Abstract NO ADDRESS ON FILE Social History Tobacco Use Types Packs/Day Years [...] on file Sexual Orientation Not on file documented as of this encounter Plan of Treatment Not on file documented as of this encounter Visit Diagnoses Not on filedocumented in this encounter
--- OUTSIDE RECORDS SUMMARY | 2024-11-11 14:44 | XMS_ITS | Encounter Summary ---
Author Organization [facility] Address [address] [place] [address] Phone Care Team Providers Care Logistics Team Lead Name Role Phone Phil Jacobo MD Unavailable [phone] Rajiv Mccormack NP Unavailable Unavailable Alize Acosta SPORTING GOODS SALES ASSOCIATE, HEAD CONTROL CLERK Unavailable +[phone] Dayo Chaney MD Unavailable Juanita Hauser RN Unavailable Unavaila David Martinez MD Unavailable Emilia Tang MD Primary Care Provider [phone] Maurilio Farley MD Unavailable PhysicianCandida MD Unavailable Rebeka Trinidad MD Primary Care Provider + [phone] Dom Quiñonez MD Unavailable Rachelle Nava SPORTING GOODS SALES ASSOCIATE, CONTENT STRATEGIST Unavailable + [phone] Irais Naylor SPORTING GOODS SALES ASSOCIATE, HEAD CONTROL CLERK Unavailable + [phone] Lorri Leo SPORTING GOODS SALES ASSOCIATE, HEAD CONTROL CLERK Primary Care Provider + [phone] Rebeka Trinidad MD Primary Care Provider + [phone] Lorri Leo SPORTING GOODS SALES ASSOCIATE, HEAD CONTROL CLERK Primary Care Provider + [phone] Sharri Gaspar MD Unavailable Tani Biggs Primary Care Provider + [phone] Valdemar Amber Louise SPORTING GOODS SALES ASSOCIATE, HEAD CONTROL CLERK Unavailable Reason for Visit * Reason Comments Medication Refill Encounter Details Date Type Department Care Team (Late st Contact Info) Description 10/21/2022 Refill [facility] - Primary Care - [place] [address] [place] [address] Jackeline Dimas, SPORTING GOODS SALES ASSOCIATE, [facility] [address] [place] [address] Medication Refill Social History Tobacco [...] 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 [...] Info) Description 11/12/2024 9:00 AM CDT [facility] [address] [place] [address] Amber Aldrich APRN, HEAD CONTROL CLERK [address] [place] [address] Discharge Disposition: Discharged to home or Selfcare 11/12/2024 9:15 AM CDT Appointment [facility] Nuclear Medicine [address] [place] [address] Amber Aldrich APRN, HEAD CONTROL CLERK [address] [place] [address] Discharge Disposition: Discharged to home or Selfcare 11/12/2024 9:30 AM CDT Hospital Encounter [facility] Cardiology Stress [address] [place] [address] Amber Aldrich APRN, HEAD CONTROL CLERK [address] [place] [address] 11/12/2024 10:00 AM CDT Appointment [facility] Nuclear Medicine [address] [place] [address] Amber Aldrich APRN, HEAD CONTROL CLERK [address] [place] [address] Discharge Disposition: Discharged to home or Selfcare 11/17/2024 2:00 PM CDT [facility] [address] [place] [address] Alize Acosta, RUSSELL, HEAD CONTROL CLERK [address] [place] [address] 11/18/2024 3:45 PM CDT Office Visit [facility] - Endocrinology - [place] [address] [place] [address] David Salmon MD #[address] [address] 01/03/2025 11:30 AM CDT Office Visit [facility] Neurology - [place] [address] [place] [address] Rachelle Nava, SPORTING GOODS SALES ASSOCIATE, CONTENT STRATEGIST #[address] [place] [address] 03/04/2025 3:10 PM FIRE INVESTIGATION LIEUTENANT Lab [facility] Primary Care - [place] [address] [place] [address] [place] Colon [facility] 03/04/2025 3:30 PM FIRE INVESTIGATION LIEUTENANT Office Visit [facility] Primary [facility] - [place] [address] [place] [address] Tani Biggs PAC [address] [place] [address] 03/17/2025 1:30 PM FIRE INVESTIGATION LIEUTENANT Lab [facility] - Cancer Center Oncology Services [address] [place] [address] Melony Asif, ESTRELLITA [address] [place] [address] Discharge Disposition: Discharged to home or Selfcare 03/25/2025 1:20 PM FIRE INVESTIGATION LIEUTENANT Office Visit [facility] Oncology Services [address] [place] [address] Melony Asif Stacey, PAC [address] [place] [address] Discharge Disposition: Discharged to home or Selfcare 04/25/2025 2:00 PM FIRE INVESTIGATION LIEUTENANT Office Visit [facility] Cardiology [facility] [address] [place] [address] Laisha Griffin, DO [address] [address] 07/18/2025 1:00 PM CDT Office Visit [facility] Pulmonology & Sleep Medicine [facility] #[address] [place] [address] Dom Quiñonez MD #[address] [place] [address] documented as of this encounter Goals Goal [...] diet Depression Depression Improving(0 03/15/2022 2:27 PM FIRE INVESTIGATION LIEUTENANT) No Breanne Saldana, EXECUTIVE RECRUITER Note: Goal/Objective: Decrease symptoms of depression associated [...] 19 04/18/2024 04/18/2024 04/18/2024 10:4 7 PM FIRE INVESTIGATION LIEUTENANT Respiratory Rule-Out 05/06/2024 05/06/2024 025 9:20 AM FIRE INVESTIGATION LIEUTENANT COVID - 19 05/06/2024 05/06/2024 05/06/2024 9:19 AM FIRE INVESTIGATION LIEUTENANT Assessment Noted Time PHQ-9 Depression Total Score: 24 022 3:31 PM FIRE INVESTIGATION LIEUTENANT documented as of this encounter Care Teams Logistics Team Lead Relationship Specialty Start Date End Date Emilia Tang MD [address] [place] [address] PCP - General Family Medicine 06/07/22 03/25/23 Rebeka Trinidad MD [address] [place] [address] PCP - General Family Medicine 03/26/23 03/29/24 Lorri Leo APRN, HEAD CONTROL CLERK [address] [place] [address] PCP - General Certified Nurse Practitioner 03/30/24 04/20/24 Rebeka Trinidad MD [address] [place] [address] PCP - General Family Medicine 04/21/24 04/21/24 Lorri Leo SPORTING GOODS SALES ASSOCIATE, HEAD CONTROL CLERK [address] [place] [address] PCP - General Certified Nurse Practitioner 04/22/24 05/30/24 Tani Biggs, PAC [address] [place] [address] PCP - General Physician Sales Executive 05/31/24 Phil Jacobo MD #[address] [place] [address] Consulting Physician Neurology 03/07/21 Rajiv Mccormack, DATA INTEGRATION ARCHITECT #[address] [place] [address] Nurse Practitioner Gastroenterology 03/07/21 Alize Acosta, SPORTING GOODS SALES ASSOCIATE, HEAD CONTROL CLERK [address] [place] [address] [facility] (VAC) PILE DRIVER OPERATOR Advanced Practice Nurse 08/30/21 Dayo Chaney MD [address] [place] [address] Elevator Technician Cardiovascular Disease - Cardiology 09/20/21 02/12/24 Juanita Mercado RN [place] Registered Nurse Cardiology 12/24/21 02/12/24 David Salmon MD #[address] [address] Consulting Physician Endocrinology 01/15/22 Maurilio Farley MD #[address] [address] Consulting Physician Colon and Rectal Surgery 09/20/22 PhysicianCandida MD [address] [place], [place] [phone] Family Medicine 01/25/22 03/18/23 Dom Quiñonez MD #[address] [place] [address] Consulting Physician Pulmonary Disease 11/19/21 Rachelle Nava APRN, CONTENT STRATEGIST #2 [facility] [place] [address] Nurse Practitioner Advanced Practice Nurse 07/19/22 Irais Naylor APRN, HEAD CONTROL CLERK #2 [facility] RAJ BROOKE, [facility] [address] [place] [address] Nurse Practitioner Cardiology 06/27/23 07/29/24 Sharri Gaspar MD [address] [place] [address] Consulting Physician Cardiology 04/26/24 Amber Aldrich APRN, HEAD CONTROL CLERK #2 [facility] [place] [address] Nurse Practitioner Cardiology 07/30/24 documented as of this encounter
--- OUTSIDE RECORDS SUMMARY | 2024-11-11 14:44 | XMS_ITS | Encounter Summary ---
Author Organization [facility] Address [address] [place] [address] Phone Care Team Providers Care Jalousies Installer Name Role Phone Phil Jacobo MD Unavailable [phone] Rajiv Mccormack NP Unavailable Unavailable Alize Acosta SUSTAINABILITY PROJECT COORDINATOR, CHIEF LEARNING OFFICER Unavailable David Salmon MD Unavailable Maurilio Farley MD Unavailable Rebeka Trinidad MD Primary Care Provider + [phone] Dom Quiñonez MD Unavailable Rachelle Nava SUSTAINABILITY PROJECT COORDINATOR, LINE OUT MAN Unavailable + [phone] Irais Naylor SUSTAINABILITY PROJECT COORDINATOR, CHIEF LEARNING OFFICER Unavailable + [phone] Lorri Leo APRN, CHIEF LEARNING OFFICER Primary Care Provider + [phone] Rebeka Trinidad MD Primary Care Provider + [phone] Lorri Leo APRN, CHIEF LEARNING OFFICER Primary Care Provider + [phone] Sharri Gaspar MD Unavailable Tani Biggs [facility] Primary Care Provider Amber Aldrichsweetie MOJICAN, CHIEF LEARNING OFFICER Unavailable Encounter Details Date Type Department Care Team (Late st Contact Info) Description 02/25/2024 Telephone [facility] [address] [place] [address] Rebeka Trinidad MD [address] [place] [address] Social History Tobacco Use Types Packs/Day Years Used Date Smoking Tobacco: Every Day Cigarettes 1 37.1 Started: 1984; Last attempted to quit: 04/12/2021 Smokeless Tobacco: Never Alcohol Use Standard Drinks/Week Comments Not Currently 0 (1 standard drink = 0.6 oz pur e alcohol) Last drink in 2020 [facility] Utilities Answer Date Recorded In the past 12 months has [employer], gas, oil, or water company threatened to [...] often do you attend [facility] or faith services? 1 to 4 times per year 09/08/2023 Do you belong to any clubs o r organizations such as oriental orthodox groups, unions, fraternal or athletic groups, or [...] Total Score - Questions 1-9 17 01/08 [facility] - Occupational Stress Questionnaire Answer [...] place to sleep or slept in a penitentiary (including now)? No 03/24/2023 Housing Stability Vital [...] time in the past 12 m [facility], were you homeless or living in a penitentiary (including now)? 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 on file Not on file documented as of this encounter Plan of Treatment Upcoming Encounters Date Type Department Care Team (Latest Contact Info) Description 11/12/2024 9:00 AM CDT [facility] [address] [place] [address] Amber Aldrich APRN, CHIEF LEARNING OFFICER [address] [place] [address] Discharge Disposition: Discharged to home or Selfcare 11/12/2024 9:15 AM CDT [facility] [address] [place] [address] Amber Aldrich APRN, CHIEF LEARNING OFFICER [address] [place] [address] Discharge Disposition: Discharged to home or Selfcare 11/12/2024 9:30 AM CDT [facility] Card[facility] Stress [address] [place] [address] Amber Aldrich APRN, CHIEF LEARNING OFFICER [address] [place] [address] 11/12/2024 10:00 AM CDT [facility] Nuclear [facility] [address] [place] [address] Amber Aldrich APRN, CHIEF LEARNING OFFICER [address] [place] [address] Discharge Disposition: Discharged to home or Selfcare 11/17/2024 2:00 PM CDT Telemedicine [facility] [address] [place] [address] Alize Acosta, RUSSELL, CHIEF LEARNING OFFICER [address] [place] [address] 11/18/2024 3:45 PM CDT Office Visit [facility] - Endocrinology - [place] [address] [place] [address] David Salmon MD #[address] [address] 01/03/2025 11:30 AM CDT Office Visit [facility] Neurology - [place] [address] [place] [address] Rachelle Nava, RUSSELL, LINE OUT MAN [address] [place] [address] 03/04/2025 3:10 PM PROJECT OFFICER Lab [facility] Primary [facility] - [place] [address] [place] [address] [place] Colon [facility] 03/04/2025 3:30 PM PROJECT OFFICER Office Visit [facility] Primary Care - [place] [address] [place] [address] Tani Biggs PAC [address] [place] [address] 03/17/2025 1:30 PM PROJECT OFFICER Lab [facility] Oncology Services [address] [place] [address] AsifMelony kumari August, PAC [address] [place] [address] Discharge Disposition: Discharged to home or Selfcare 03/25/2025 1:20 PM PROJECT OFFICER Office Visit [facility] Oncology Services [address] [place] [address] [place], Arlene August, PAC [address] [place] [address] Discharge Disposition: Discharged to home or Selfcare 04/25/2025 2:00 PM PROJECT OFFICER Office Visit [facility] Medical [facility] - Cardiology - [place] [address] [place] [address] Laisha Griffin, DO [address] [address] 07/18/2025 1:00 PM CDT Office Visit [facility] - Pulmonology & Sleep Medicine [facility] #[address] [place] [address] Dom Quiñonez MD #[address] [place] [address] documented as of this encounter Goals Goal [...] Worsening(0 09/22/2023 3:12 PM CDT) Hilda [place] [facility] Note: Goal/Objective: Decrease symptoms of depression and anxiety. Anticipated Time Frame for Goal Completion: 3 months Goal Reviewed with: patient Readiness to change: Thinking about making a change Department associated with goal: [facility] Steps to achieve goal: [...] diet Depression Depression Improving(0 03/15/2022 2:27 PM PROJECT OFFICER) No Breanne Saldana LCSW Note: Goal/Objective: Decrease [...] 19 04/18/2024 04/18/2024 04/18/2024 10:4 7 PM PROJECT OFFICER Respiratory Rule-Out 05/06/2024 05/06/2024 025 9:20 AM PROJECT OFFICER COVID - 05/06/2024 05/06/2024 05/06/2024 9:19 AM PROJECT OFFICER Assessment Noted Time PHQ-9 Depression Total Score: 17 024 9:00 AM PROJECT OFFICER documented as of this encounter Care Teams Jalousies Installer Relationship Specialty Start Date End Date Rebeka Trinidad MD [address] [place] [address] PCP - General Family Medicine 03/26/23 03/29/24 Lorri Leo APRN, CHIEF LEARNING OFFICER [address] [place] [address] PCP - General Certified Nurse Practitioner 03/30/24 04/20/24 Rebeka Trinidad MD [address] [place] [address] PCP - General Family Medicine 04/21/24 04/21/24 Lorri Leo APRN, CHIEF LEARNING OFFICER [address] [place] [address] PCP - General Certified Nurse Practitioner 04/22/24 05/30/24 Tani Biggs PAC [address] [place] [address] PCP - General Physician Change Analyst 05/31/24 Phil Jacobo MD #[address] [place] [address] Consulting Physician Neurology 03/07/21 Rajiv Mccormack, COMMUNICATIONS PLANNER #[address] [place] [address] Nurse Practitioner Gastroenterology 03/07/21 Alize Acosta APRN, CHIEF LEARNING OFFICER [facility] [place] [address] Virtual Advanced Care (VAC) SUPERVISOR AIRPLANE FLIGHT ATTENDANT Advanced Practice Nurse 08/30/21 David Salmon MD #[address] [address] Consulting Physician Endocrinology 01/15/22 Maurilio Farley MD #[address] [address] Consulting Physician Colon and Rectal Surgery 09/20/22 Dom Quiñonez MD #2 [place] [address] Consulting Physician Pulmonary Disease 11/19/21 Rachelle Nava APRN, LINE OUT MAN #[address] [place], [place] [address] Nurse Practitioner Advanced Practice Nurse 07/19/22 Irais Naylor APRN, CHIEF LEARNING OFFICER #[address] [address] Nurse Practitioner Cardiology 06/27/23 07/29/24 Sharri Gaspar MD [address] [place] [address] Consulting Physician Cardiology 04/26/24 Amber Aldrich APRN, CHIEF LEARNING OFFICER [address] [place] [address] Nurse Practitioner Cardiology 07/30/24 documented as of this encounter
--- OUTSIDE RECORDS SUMMARY | 2024-11-11 14:44 | XMS_ITS | Encounter Summary ---
Author Organization [facility] Address [address] [place] [address] Phone Care Team Providers Care Dental Biller Name Role Phone Jackeline Dimas PLATING TANK OPERATOR, LABOR MEDIATOR Primary Care Provider Phil Jacobo MD Unavailable [phone] Rajiv Mccormack NP Unavailable Unavailable Alize Acosta PLATING TANK OPERATOR, LABOR MEDIATOR Unavailable [phone] Dayo Chaney MD Unavailable Juanita Hauser RN Unavailable UnavailDavid Alexandre MD Unavailable Emilia Tang MD Primary Care Provider [phone] Maurilio Farley MD Unavailable Physician, Candida Davis MD Unavailable Rebeka Trinidad MD Primary Care Provider + [phone] Dom Quiñonez MD Unavailable Rachelle Nava PLATING TANK OPERATOR, OFFICE RN Unavailable + [phone] Irais Naylor PLATING TANK OPERATOR, LABOR MEDIATOR Unavailable + [phone] Lorri Leo PLATING TANK OPERATOR, LABOR MEDIATOR Primary Care Provider [phone] Rebeka Trinidad MD Primary Care Provider + [phone] AhmetLorri Annetta PLATING TANK OPERATOR, [facility] Primary Care Provider + [phone] Sharri Gaspar MD Unavailable Kalyan Tani B [facility] Primary Care Provider [phone] Amber Aldrich APRN, [facility] Unavailable Reason for Visit * Reason Comments Medication Refill Encounter Details Date Type Department Care Team (Late st Contact Info) Description 02/09/2022 Refill [facility] - Endocrinology - [place] [address] [place] [address] David Salmon MD [address] [address] Medication Refill Social History Tobacco [...] 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 No / Unsure 02/06/2022 3:43 PM APPAREL MANUFACTURE INSTRUCTOR documented as of this encounter Miscellaneous Notes * Telephone Encounter - Yesi Leggett RN - 02/11/2022 8:37 AM APPAREL MANUFACTURE INSTRUCTOR Requested Prescriptions Pending Prescriptions Disp Refills ??? TRUEplus 5-Bevel Pen [place] 32G X 4 MM Misc [Pharmacy Med Name: TRUEPLUS 5- BEVEL PEN NEEDLE 11EX5SN] 100 Each 1 Sig: USE DAILY DIRECTED Next appt: 04/30/2022 REL MANUFACTURE INSTRUCTOR documented in this encounter Plan of Treatment Upcoming Encounters Date Type Department Care Team (Latest Contact Info) Description 11/12/2024 9:00 AM CDT [facility] [address] [place] [address] Amber Aldrich APRN, LABOR MEDIATOR [address] [place] [address] Discharge Disposition: Discharged to home or Selfcare 11/12/2024 9:15 AM CDT [facility] [address] [place] [address] Amber Aldrich APRN, LABOR MEDIATOR [address] [place] [address] Discharge Disposition: Discharged to home or Selfcare 11/12/2024 9:30 AM CDT [facility] Cardiology Stress [address] [place] [address] Amber Aldrich APRN, LABOR MEDIATOR [address] [place] [phone] 11/12/2024 10:00 AM CDT [facility] [address] [place] [address] Amber Aldrich APRN, LABOR MEDIATOR [address] [place] [address] Discharge Disposition: Discharged to home or Selfcare 11/17/2024 2:00 PM CDT Telemedicine [facility] [address] [place] [address] Alize Acosta APRN, LABOR MEDIATOR [address] [place] [address] 11/18/2024 3:45 PM CDT Office Visit [facility] - Endocrinology - [place] [address] [place] [address] David Salmon MD #[address] [address] 01/03/2025 11:30 AM CDT Office Visit [facility] Neurology - [place] [address] [place] [address] Rachelle Nava, PLATING TANK OPERATOR, OFFICE RN [address] [place] [address] 03/04/2025 3:10 PM APPAREL MANUFACTURE INSTRUCTOR Lab [facility] Primary [facility] [place] [address] [place] [address] [facility] 03/04/2025 3:30 PM APPAREL MANUFACTURE INSTRUCTOR Office Visit [facility] Primary [facility] - [place] [address] [place] [address] Tani Biggs PAC [address] [place] [address] 03/17/2025 1:30 PM APPAREL MANUFACTURE INSTRUCTOR Lab [facility] Oncology Services [address] [place] [address] Melony Asif August, PAC [address] [place] [address] Discharge Disposition: Discharged to home or Selfcare 03/25/2025 1:20 PM APPAREL MANUFACTURE INSTRUCTOR Office Visit [facility] Oncology Services [address] [place] [address] Melony Asif August, PAC [address] [place] [address] Discharge Disposition: Discharged to home or Selfcare 04/25/2025 2:00 PM APPAREL MANUFACTURE INSTRUCTOR Office Visit [facility] - Cardiology - [place] [address] [place] [address] Laisha Griffin, DO [address] [address] 07/18/2025 1:00 PM CDT Office Visit [facility] - Pulmonology & Sleep Medicine [facility] #[address] [place] [address] Dom Quiñonez MD #[address] [place] [address] documented as of this encounter Goals Goal [...] as recommended. Depression Depression Improving( 2:27 PM APPAREL MANUFACTURE INSTRUCTOR) No Breanne Saldana LCSW Note: Goal/Objective: Decrease [...] 19 04/18/2024 04/18/2024 04/18/2024 10:4 7 PM APPAREL MANUFACTURE INSTRUCTOR Respiratory Rule-Out 05/06/2024 05/06/2024 025 9:20 AM APPAREL MANUFACTURE INSTRUCTOR COVID - 19 05/06/2024 05/06/2024 05/06/2024 9:19 AM APPAREL MANUFACTURE INSTRUCTOR Assessment Noted Time PHQ-9 Depression Total Score: 24 022 3:31 PM APPAREL MANUFACTURE INSTRUCTOR documented as of this encounter Care Teams Dental Biller Relationship Specialty Start Date End Date Jackeline Dimas, PLATING TANK OPERATOR, LABOR MEDIATOR [address] [place] [address] PCP - General Advanced Practice Nurse 07/31/17 Emilia Tang MD [address] [place] [address] PCP - General Family Medicine 06/07/22 03/25/23 Rebeka Trinidad MD [address] [place] [address] PCP - General Family Medicine 03/26/23 03/29/24 Lorri Leo APRN, LABOR MEDIATOR [address] [place] [address] PCP - General Certified Nurse Practitioner 03/30/24 04/20/24 Rebeka Trinidad MD [address] [place] [address] PCP - General Family Medicine 04/21/24 04/21/24 Lorri Leo PLATING TANK OPERATOR, LABOR MEDIATOR [address] [place] [address] PCP - General Certified Nurse Practitioner 04/22/24 05/30/24 Tani Biggs PAC [address] [place] [address] PCP - General Physician Adjunct Psychology Instructor 05/31/24 Phil Jacobo MD #[address] [place] [address] Consulting Physician Neurology 03/07/21 Rajiv Mccormack, KELI [address] [place] [address] Nurse Practitioner Gastroenterology 03/07/21 Alize Acosta, PLATING TANK OPERATOR, LABOR MEDIATOR [address] [place], [place] [address] [facility] (VAC) WORKERS' COMPENSATION COMMISSIONER Advanced Practice Nurse 08/30/21 Dayo Chaney MD [address] [place] [address] Forestry Pilot Cardiovascular Disease - Cardiology 09/20/21 02/12/24 Juanita Mercado RN [place] Registered Nurse Cardiology 12/24/21 02/12/24 David Salmon MD #[address] [address] Consulting Physician Endocrinology 01/15/22 Maurilio Farley MD #[address] [address] Consulting Physician Colon and Rectal Surgery 09/20/22 Physician, Candida Davis MD [address] [place] [address] Family Medicine 01/25/22 03/18/23 Dom Quiñonez MD #[address] [place] [address] Consulting Physician Pulmonary Disease 11/19/21 Rachelle Nava APRN, OFFICE RN #[address] [place] [address] Nurse Practitioner Advanced Practice Nurse 07/19/22 Irais Naylor APRN, LABOR MEDIATOR #2 [facility] [address] [place] [address] Nurse Practitioner Cardiology 06/27/23 07/29/24 Sharri Gaspar MD 2 [facility] [place] [facility], [place] [place] [address] Consulting Physician Cardiology 04/26/24 Amber Aldrich APRN, LABOR MEDIATOR [address] [place] [address] Nurse Practitioner Cardiology 07/30/24 documented as of this encounter
--- OUTSIDE RECORDS SUMMARY | 2024-11-11 14:44 | XMS_ITS | Encounter Summary ---
Author Organization [facility] Address [address] [place] [address] Phone Care Team Providers Care Computer Analyst Name Role Phone Jackeline Dimas SHUTTLE PREPARATION SUPERVISOR, OCCUPATIONAL HEALTH COORDINATOR Primary Care Provider Phil Jacobo MD Unavailable [phone] Rajiv Mccormack NP Unavailable Unavailable Alize Acosta SHUTTLE PREPARATION SUPERVISOR, OCCUPATIONAL HEALTH COORDINATOR Unavailable [phone] Dayo Chaney MD Unavailable Juanita Hauser RN Unavailable UnavailDavid Alexandre MD Unavailable Emilia Tang MD Primary Care Provider [phone] Maurilio Farley MD Unavailable Physician, Candida Davis MD Unavailable Rebeka Trinidad MD Primary Care Provider + [phone] Dom Quiñonez MD Unavailable Rachelle Nava SHUTTLE PREPARATION SUPERVISOR, HEALTH FACILITIES SURVEYOR Unavailable + [phone] Irais Naylor SHUTTLE PREPARATION SUPERVISOR, OCCUPATIONAL HEALTH COORDINATOR Unavailable + [phone] Lorri Leo SHUTTLE PREPARATION SUPERVISOR, OCCUPATIONAL HEALTH COORDINATOR Primary Care Provider [phone] Rebeka Trinidad MD Primary Care Provider + [phone] Ahmet Lorri M SHUTTLE PREPARATION SUPERVISOR, [facility] Primary Care Provider + [phone] Sharri Gaspar MD Unavailable Tani Biggs [facility] Primary Care Provider + [phone] Amber Aldrich SHUTTLE PREPARATION SUPERVISOR, [facility] Unavailable Reason for Visit * Reason Comments Medication Refill Encounter Details Date Type Department Care Team (Late st Contact Info) Description 01/14/2022 Refill [facility] - Primary Care - [place] [address] [place] [address] Jackeline Dimas SHUTTLE PREPARATION SUPERVISOR, [facility] [address] [place] [address] Medication Refill Social History Tobacco [...] 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 Unable to assess 01/16/2022 3:15 PM UNDERWRITING OPERATIONS MANAGER documented as of this encounter Plan of Treatment Upcoming Encounters Date Type Department Care Team (Latest Contact Info) Description 11/12/2024 9:00 AM CDT [facility] 1 [place] [address] Amber Aldrich APRN, OCCUPATIONAL HEALTH COORDINATOR [address] [place] [address] Discharge Disposition: Discharged to home or Selfcare 11/12/2024 9:15 AM CDT [facility] [address] [place] [address] Amber Aldrich APRN, OCCUPATIONAL HEALTH COORDINATOR [address] [place] [address] Discharge Disposition: Discharged to home or Selfcare 11/12/2024 9:30 AM CDT [facility] Stress [address] [place] [address] mAber Aldrich APRN, OCCUPATIONAL HEALTH COORDINATOR #[address] [place] [address] 11/12/2024 10:00 AM CDT Appointment [facility] Nuclear Medicine 1 [place] [address] Amber Aldrich APRN, OCCUPATIONAL HEALTH COORDINATOR [address] [place] [address] Discharge Disposition: Discharged to home or Selfcare 11/17/2024 2:00 PM CDT Telemedicine [facility] [address] [place] [address] [phone] Alize Acosta, SHUTTLE PREPARATION SUPERVISOR, OCCUPATIONAL HEALTH COORDINATOR [address] [place] [address] 11/18/2024 3:45 PM CDT Office Visit [facility] - Endocrinology - [place] [address] [place] [address] David Salmon MD #[address] [address] 01/03/2025 11:30 AM CDT Office Visit [facility] - Neurology - [place] [address] [place] [address] Rachelle Nava APRN, HEALTH FACILITIES SURVEYOR [address] [place] [address] 03/04/2025 3:10 PM UNDERWRITING OPERATIONS MANAGER Lab [facility] Primary Care - [place] [facility] [place] [address] [facility] 03/04/2025 3:30 PM UNDERWRITING OPERATIONS MANAGER Office Visit [facility] Primary [facility] - [place] [address] [place] [address] Tani Biggs PAC [facility] [place] [address] 03/17/2025 1:30 PM UNDERWRITING OPERATIONS MANAGER Lab [facility] On[facility] Services [address] [place] [address] Melony Asif PAC [address] [place] [address] Discharge Disposition: Discharged to home or Selfcare 03/25/2025 1:20 PM UNDERWRITING OPERATIONS MANAGER [facility] On[facility] [address] [place] [address] Melony Asif, PAC [address] [place] [address] Discharge Disposition: Discharged to home or Selfcare 04/25/2025 2:00 PM UNDERWRITING OPERATIONS MANAGER Office Visit [facility] Medical [facility] - Cardiology - [place] [address] [place] [address] Laisha Griffin, DO [address] [address] 07/18/2025 1:00 PM CDT Office Visit [facility] - Pulmonology & Sleep Medicine [facility] #[address] [place] [address] Dom Quiñonez MD [address] [place] [address] documented as of this encounter [...] as recommended. Depression Depression Improving( 2:27 PM UNDERWRITING OPERATIONS MANAGER) Breanne Barragan LCSW Note: Goal/Objective: Decrease symptoms [...] 04/18/2024 04/18/2024 04/18/2024 10:4 7 PM UNDERWRITING OPERATIONS MANAGER Respiratory Rule-Out 05/06/2024 05/06/2024 025 9:20 AM UNDERWRITING OPERATIONS MANAGER COVID - 19 05/06/2024 05/06/2024 05/06/2024 9:19 AM UNDERWRITING OPERATIONS MANAGER Assessment Noted Time PHQ-9 Depression Total Score: 0 09/01/19 20 11:58 AM CDT documented as of this encounter Care Teams Computer Analyst Relationship Specialty Start Date End Date Jackeline Dimas, SHUTTLE PREPARATION SUPERVISOR, OCCUPATIONAL HEALTH COORDINATOR [address] [place] [address] PCP - General Advanced Practice Nurse 07/31/17 Emilia Tang MD [address] [place] [address] PCP - General Family Medicine 06/07/22 03/25/23 Rebeka Trinidad MD [address] [place] [address] PCP - General Family Medicine 03/26/23 03/29/24 Lorri Leo APRN, OCCUPATIONAL HEALTH COORDINATOR [address] [place] [address] PCP - General Certified Nurse Practitioner 03/30/24 04/20/24 Rebeka Trinidad MD [address] [place] [address] PCP - General Family Medicine 04/21/24 04/21/24 Lorri Leo APRN, OCCUPATIONAL HEALTH COORDINATOR [address] [place] [address] PCP - General Certified Nurse Practitioner 04/22/24 05/30/24 Tani Biggs PAC [address] [place] [address] PCP - General Physician Sheriff 05/31/24 Phil Jacobo MD [address] [place] [address] Consulting Physician Neurology 03/07/21 Rajiv Mccormack, KELI [address] [place] [address] Nurse Practitioner Gastroenterology 03/07/21 Alize Acosta APRN, OCCUPATIONAL HEALTH COORDINATOR [address] [place] [address] [place] [address] Virtual Advanced Care (VAC) PLASTIC MOULD MAKER Advanced Practice Nurse 08/30/21 Dayo Chaney MD [address] [place] [address] Scrap Charger Cardiovascular Disease - Cardiology 09/20/21 02/12/24 Juanita Mercado, [place] Registered Nurse Cardiology 12/24/21 02/12/24 David Salmon MD #[address] [address] Consulting Physician Endocrinology 01/15/22 Maurilio Farley MD #[address] [address] Consulting Physician Colon and Rectal Surgery 09/20/22 Physician, Candida Davis MD [address] [place] [address] Family Medicine 01/25/22 03/18/23 Dom Quiñonez MD #[address] [place] [address] Consulting Physician Pulmonary Disease 11/19/21 Rachelle Nava APRN, HEALTH FACILITIES SURVEYOR #[address] [place] [address] Nurse Practitioner Advanced Practice Nurse 07/19/22 Irais Naylor, SHUTTLE PREPARATION SUPERVISOR, OCCUPATIONAL HEALTH COORDINATOR #2 [facility] [address] [place] [address] Nurse Practitioner Cardiology 06/27/23 07/29/24 Sharri Gaspar MD 2 [facility] [address] [place] [address] Consulting Physician Cardiology 04/26/24 Amber Aldrich APRN, OCCUPATIONAL HEALTH COORDINATOR [address] [place] [address] Nurse Practitioner Cardiology 07/30/24 documented as of this encounter
--- OUTSIDE RECORDS SUMMARY | 2024-11-11 14:44 | XMS_ITS | Encounter Summary ---
Author Organization [facility] Address [address] [place] [address] Phone Care Team Providers Care Evp Chief Exploration Officer Name Role Phone Phil Jacobo MD Unavailable [phone] Rajiv Mccormack NP Unavailable Unavailable Alize Acosta REDUCER, FINANCIAL PLANNING ASSISTANT Unavailable [phone] Dayo Chaney MD Unavailable Juanita Hauser RN Unavailable Unavaila David Martinez MD Unavailable Emilia Tang MD Primary Care Provider [phone] Maurilio Farley MD Unavailable PhysicianCandida MD Unavailable Rebeka Trinidad MD Primary Care Provider + [phone] Dmo Quiñonez MD Unavailable Rachelle Nava REDUCER, ETYMOLOGY TEACHER Unavailable + [phone] Irais Naylor REDUCER, FINANCIAL PLANNING ASSISTANT Unavailable + [phone] Lorri Leo REDUCER, FINANCIAL PLANNING ASSISTANT Primary Care Provider + [phone] Rebeka Trinidad MD Primary Care Provider [phone] Lorri Leo REDUCER, FINANCIAL PLANNING ASSISTANT Primary Care Provider + [phone] Sharri Gaspar MD Unavailable Tani Biggs Primary Care Provider + [phone] Valdemar Amber Burnettee REDUCER, FINANCIAL PLANNING ASSISTANT Unavailable Reason for Visit * Reason Comments Medication Refill Encounter Details Date Type Department Care Team (Late st Contact Info) Description 12/19/2022 Refill [facility] - Neurology - [place] [address] [place] [address] Rachelle Nava, REDUCER, ETYMOLOGY TEACHER [address] [place] [address] Medication Refill Social History Tobacco Use Types [...] Industry Job Start Date Job End Date [employer] Not on file Not on file Not [...] Dept 11/06/22 Office Visit Emilia Tang MD [facility] 10/10/22 Office Visit Emilia Tang MD [facility] 09/16/22 Office Visit Rachelle Nava APRN, ETYMOLOGY TEACHER [facility] Neurology [facility] 09/06/22 Office Visit Emilia Tang MD [facility] 07/19/22 Office Visit Rachelle Nava APRN, ETYMOLOGY TEACHER [facility] Neurology [facility] 06/07/22 Office Visit Emilia Tang MD [facility] Showing recent visits within past 365 days and meeting all other requirements Future Appointments Date Type Provider Dept 02/06/23 Appointment Emilia Tang MD [facility] 03/19/23 Appointment Rachelle Nava APRN, [facility] Showing future appointments within next 90 days and meeting all other requirements documented in this encounter Plan of Treatment Upcoming Encounters Date Type Department Care Team (Latest Contact Info) Description 11/12/2024 9:00 AM CDT [facility] Nuclear Medicine [address] [place] [address] Amber Aldrich APRN, FINANCIAL PLANNING ASSISTANT [address] [place] [address] Discharge Disposition: Discharged to home or Selfcare 11/12/2024 9:15 AM CDT Appointment [facility] Nuclear Medicine [address] [place] [address] Amber Aldrich APRN, FINANCIAL PLANNING ASSISTANT [address] [place] [address] Discharge Disposition: Discharged to home or Selfcare 11/12/2024 9:30 AM CDT Hospital Encounter [facility] Cardiology Stress [address] [place] [address] Amber Aldrich APRN, FINANCIAL PLANNING ASSISTANT [address] [place] [address] 11/12/2024 10:00 AM CDT Appointment [facility] Nuclear Medicine [address] [place] [address] Amber Aldrich APRN, FINANCIAL PLANNING ASSISTANT [address] [place] [address] Discharge Disposition: Discharged to home or Selfcare 11/17/2024 2:00 PM CDT Telemedicine [facility] [address] [place] [address] [phone] Alize Acosta, REDUCER, FINANCIAL PLANNING ASSISTANT [address] [place] [address] 11/18/2024 3:45 PM CDT [facility] - Endocrinology - [place] [address] [place] [address] David Salmon MD #[address] [phone] 01/03/2025 11:30 AM CDT Office Visit [facility] - Neurology - [place] [address] [place] [address] Rachelle Nava, REDUCER, ETYMOLOGY TEACHER [address] [place] [address] 03/04/2025 3:10 PM SHELTER SUPERVISOR Lab [facility] - [place] [address] [place] [address] [facility] 03/04/2025 3:30 PM SHELTER SUPERVISOR Office Visit [facility] - [place] [address] [place] [address] Tani Biggs, PAC [address] [place] [address] 03/17/2025 1:30 PM SHELTER SUPERVISOR [facility] [address] [place] [address] Melony Asif, PAC [address] [place] [address] Discharge Disposition: Discharged to home or Selfcare 03/25/2025 1:20 PM SHELTER SUPERVISOR Office Visit [facility] Oncology Services [address] [place] [phone] Melony Asif, PAC [address] [place] [address] Discharge Disposition: Discharged to home or Selfcare 04/25/2025 2:00 PM SHELTER SUPERVISOR Office Visit [facility] Cardiology - [place] [address] [place] [address] Laisha Griffin, DO [address] [address] 07/18/2025 1:00 PM CDT Office Visit [facility] - Pulmonology & Sleep Medicine - [place] [address] [place] [address] Dom Quiñonez MD #[address] [place] [address] documented as of this encounter Goals Goal [...] diet Depression Depression Improving(0 03/15/2022 2:27 PM SHELTER SUPERVISOR) No Breanne Saldana LCSW Note: Goal/Objective: [...] capful once my bowel movements are regular. 1999mg Sodium Daily Sodium Intake On track(08/24 2:42 [...] 19 04/18/2024 04/18/2024 04/18/2024 10:4 7 PM SHELTER SUPERVISOR Respiratory Rule-Out 05/06/2024 05/06/2024 025 9:20 AM SHELTER SUPERVISOR COVID - 19 05/06/2024 05/06/2024 05/06/2024 9:1 9 AM SHELTER SUPERVISOR Assessment Noted Time PHQ-9 Depression Total Score: 18 023 9:24 AM CDT documented as of this encounter Care Teams Evp Chief Exploration Officer Relationship Specialty Start Date End Date Emilia Tang MD [address] [place] [address] PCP - General Family Medicine 06/07/22 03/25/23 Rebeka Trinidad MD [address] [place] [address] PCP - General Family Medicine 03/26/23 03/29/24 Lorri Leo APRN, FINANCIAL PLANNING ASSISTANT [address] [place] [address] PCP - General Certified Nurse Practitioner 03/30/24 04/20/24 Rebeka Trinidad MD [address] [place] [address] PCP - General Family Medicine 04/21/24 04/21/24 Lorri Leo APRN, FINANCIAL PLANNING ASSISTANT [address] [place] [address] PCP - General Certified Nurse Practitioner 04/22/24 05/30/24 Tani Biggs, [facility] [address] [place] [address] PCP - General Physician Furniture Associate 05/31/24 Phil Jacobo MD [address] [place] [address] Consulting Physician Neurology 03/07/21 Rajiv Mccormack, KELI [address] [place] [address] Nurse Practitioner Gastroenterology 03/07/21 Alize Acosta APRN, FINANCIAL PLANNING ASSISTANT [address] [place] [address] [facility] (VAC) SIDE PANEL PADDER Advanced Practice Nurse 08/30/21 Dayo Chaney MD [address] [place] [address] Steel Division Supervisor Cardiovascular Disease - Cardiology 09/20/21 02/12/24 Juanita Mercado, [place] Registered Nurse Cardiology 12/24/21 02/12/24 David Salmon MD #[address] [address] Consulting Physician Endocrinology 01/15/22 Maurilio Farley MD #[address] [address] Consulting Physician Colon and Rectal Surgery 09/20/22 Physician, Candida Davis MD [address] [place] [address] Family Medicine 01/25/22 03/18/23 Dom Quiñonez MD #[address] [place] [address] Consulting Physician Pulmonary Disease 11/19/21 Rachelle Nava APRN, ETYMOLOGY TEACHER [address] [place] [address] Nurse Practitioner Advanced Practice Nurse 07/19/22 Irais Naylor APRN, FINANCIAL PLANNING ASSISTANT #[address] [address] Nurse Practitioner Cardiology 06/27/23 07/29/24 Sharri Gaspar MD [address] [address] Consulting Physician Cardiology 04/26/24 Amber Aldrich APRN, FINANCIAL PLANNING ASSISTANT [address] [place] [address] Nurse Practitioner Cardiology 07/30/24 documented as of this encounter
--- OUTSIDE RECORDS SUMMARY | 2024-11-11 14:44 | XMS_ITS | Encounter Summary ---
Author Organization [facility] Address [address] [place] [address] Phone Care Team Providers Care Right Of Way Agent Name Role Phone Phil Jacobo MD Unavailable [phone] Rajiv Mccormack NP Unavailable Unavailable Alize Acosta POSTULANT, MODEL MAKER SCALE Unavailable [phone] Dayo Chaney MD Unavailable Juanita Hauser RN Unavailable Unavaila David Martinez MD Unavailable Emilia Tang MD Primary Care Provider [phone] Maurilio Farley MD Unavailable PhysicianCandida MD Unavailable Rebeka Trinidad MD Primary Care Provider + [phone] Dom Quiñonez MD Unavailable Rachelle Nava POSTULANT, INCIDENT RESPONSE LEAD Unavailable + [phone] Irais Naylor POSTULANT, MODEL MAKER SCALE Unavailable + [phone] Lorri Leo POSTULANT, MODEL MAKER SCALE Primary Care Provider + [phone] Rebeka Trinidad MD Primary Care Provider + [phone] Lorri Leo POSTULANT, MODEL MAKER SCALE Primary Care Provider + [phone] Sharri Gaspar MD Unavailable Tani Biggs Primary Care Provider + [phone] Valdemar Amber Dinoar WELLS, MODEL MAKER SCALE Unavailable Reason for Visit * Reason Comments Medication Refill Encounter Details Date Type Department Care Team (Late st Contact Info) Description 09/04/2022 Refill [facility] - Endocrinology - [place] [address] [place] [address] David Salmon MD [address] [address] Medication Refill Social History Tobacco [...] 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 TRUEplus 5-Bevel Pen [place] 32G X 4 MM Misc [Pharmacy Med Name: TRUEPLUS 5- BEVEL PEN NEEDLE [id number]] 100 Each 1 Sig: USE DAILY DIRECTED. Next appt: 10/31/2022 documented in this encounter Plan of Treatment Upcoming Encounters Date Type Department Care Team (Latest Contact Info) Description 11/12/2024 9:00 AM CDT [facility]ment [facility] Nuclear Medicine [address] [place] [address] Amber Aldrich APRN, MODEL MAKER SCALE [address] [place] [address] Discharge Disposition: Discharged to home or Selfcare 11/12/2024 9:15 AM CDT Appointment [facility] Nuclear Medicine [address] [place] [address] Amber Aldrich APRN, MODEL MAKER SCALE [address] [place] [address] Discharge Disposition: Discharged to home or Selfcare 11/12/2024 9:30 AM CDT Hospital [facility] Cardiology Stress [address] [place] [address] Amber Aldrich APRN, MODEL MAKER SCALE [address] [place] [address] 11/12/2024 10:00 AM CDT [facility]ment [facility] Nuclear Medicine [address] [place] [address] Amber Aldrich, POSTULANT, MODEL MAKER SCALE [address] [place] [address] Discharge Disposition: Discharged to home or Selfcare 11/17/2024 2:00 PM CDT Telemedicine [facility] [address] [place] [address] Alize Acosta, POSTULANT, MODEL MAKER SCALE [address] [place] [address] 11/18/2024 3:45 PM CDT Office Visit [facility] - Endocrinology - [place] [address] [place] [address] David Salmon MD #[address] [address] 01/03/2025 11:30 AM CDT Office Visit [facility] Neurology - [place] [address] [place] [address] Rachelle Nava, POSTULANT, INCIDENT RESPONSE LEAD [address] [place] [address] 03/04/2025 3:10 PM INSULATION WORKER APPRENTICE Lab [facility] Primary Care - [place] [address] [place] [address] [facility] 03/04/2025 3:30 PM INSULATION WORKER APPRENTICE Office Visit [facility] Primary [facility] - [place] [address] [place] [address] Tani Biggs PAC [address] [place] [address] 03/17/2025 1:30 PM INSULATION WORKER APPRENTICE [facility] [address] [place] [address] Melony Asif August, PAC [address] [place] [address] Discharge Disposition: Discharged to home or Selfcare 03/25/2025 1:20 PM INSULATION WORKER APPRENTICE Office Visit [facility] Oncology Services [address] [place] [address] Melony Asif August, PAC [address] [place] [address] Discharge Disposition: Discharged to home or Selfcare 04/25/2025 2:00 PM INSULATION WORKER APPRENTICE Office Visit [facility] - Cardiology - [place] [address] [place] [address] Laisha Griffin, DO [address] [address] 07/18/2025 1:00 PM CDT Office Visit [facility] - Pulmonology & Sleep Medicine [facility] [address] [place] [address] Dom Quiñonez MD [address] [place] [address] documented as of this encounter Goals Goal [...] diet Depression Depression Improving(0 03/15/2022 2:27 PM INSULATION WORKER APPRENTICE) No Breanne Saldana, AUTOMATION ARCHITECT Note: Goal/Objective: Decrease symptoms of depression associated [...] 19 04/18/2024 04/18/2024 04/18/2024 10:4 7 PM INSULATION WORKER APPRENTICE Respiratory Rule-Out 05/06/2024 05/06/2024 025 9:20 AM INSULATION WORKER APPRENTICE COVID - 19 05/06/2024 05/06/2024 05/06/2024 9:19 AM INSULATION WORKER APPRENTICE Assessment Noted Time PHQ-9 Depression Total Score: 24 022 3:31 PM INSULATION WORKER APPRENTICE documented as of this encounter Care Teams Right Of Way Agent Relationship Specialty Start Date End Date Emilia Tang MD [address] [place] [address] PCP - General Family Medicine 06/07/22 03/25/23 Rebeka Trinidad MD [address] [place] [address] PCP - General Family Medicine 03/26/23 03/29/24 Lorri Leo APRN, MODEL MAKER SCALE [address] [place] [address] PCP - General Certified Nurse Practitioner 03/30/24 04/20/24 Rebeka Trinidad MD [address] [place] [address] PCP - General Family Medicine 04/21/24 04/21/24 Lorri Leo APRN, MODEL MAKER SCALE [address] [place] [address] PCP - General Certified Nurse Practitioner 04/22/24 05/30/24 Tani Biggs, PAC [address] [place] [address] PCP - General Physician Shank Tapper 05/31/24 Phil Jacobo MD #[address] [place] [address] Consulting Physician Neurology 03/07/21 Rajiv Mccormack, ABSTRACTER [address] [place] [address] Nurse Practitioner Gastroenterology 03/07/21 Alize Acosta, POSTULANT, MODEL MAKER SCALE [address] [place] [address] Virtual [facility] Care (VAC) ACADEMIC ADMINISTRATOR Advanced Practice Nurse 08/30/21 Dayo Chaney MD [address] [place] [address] Tank Insulator Rubber Cardiovascular Disease - Cardiology 09/20/21 02/12/24 Juanita Mercado, [place] Registered Nurse Cardiology 12/24/21 02/12/24 David Salmon MD #[address] [address] Consulting Physician Endocrinology 01/15/22 Maurilio Farley MD #[address] [address] Consulting Physician Colon and Rectal Surgery 09/20/22 PhysicianCandida MD [address] [place] [address] Family Medicine 01/25/22 03/18/23 Dom Quiñonez MD #2 [facility] [place] [address] Consulting Physician Pulmonary Disease 11/19/21 Rachelle Nava, POSTULANT, INCIDENT RESPONSE LEAD [address] [place] [address] Nurse Practitioner Advanced Practice Nurse 07/19/22 Irais Naylor, POSTULANT, MODEL MAKER SCALE #2 [facility] [address] [place] [address] Nurse Practitioner Cardiology 06/27/23 07/29/24 Sharri Gaspar MD 2 [facility] [address] [place] [address] Consulting Physician Cardiology 04/26/24 Amber Aldrich, POSTULANT, MODEL MAKER SCALE [address] [place] [address] Nurse Practitioner Cardiology 07/30/24 documented as of this encounter
--- OUTSIDE RECORDS SUMMARY | 2024-11-11 14:45 | XMS_ITS | Encounter Summary ---
Author Organization [facility] Address [address] [place] [address] Phone Care Team Providers Care Orthopedics Nurse Name Role Phone Jackeline Dimas SEXUAL ASSAULT COUNSELOR, PIE CRIMPING MACHINE OPERATOR Primary Care Provider Phil Jacobo MD Unavailable [phone] Rajiv Mccormack NP Unavailable Unavailable Alize Acosta SEXUAL ASSAULT COUNSELOR, PIE CRIMPING MACHINE OPERATOR Unavailable [phone] Dayo Chaney MD Unavailable Juanita Hauser RN Unavailable UnavailDavid Alexandre MD Unavailable Emilia Tang MD Primary Care Provider [phone] Maurilio Farley MD Unavailable Physician, Candida Davis MD Unavailable Rebeka Trinidad MD Primary Care Provider + [phone] Dom Quiñonez MD Unavailable Rachelle Nava SEXUAL ASSAULT COUNSELOR, SECOND CUTTER Unavailable + [phone] Irais Naylor SEXUAL ASSAULT COUNSELOR, PIE CRIMPING MACHINE OPERATOR Unavailable + [phone] Lorri Leo SEXUAL ASSAULT COUNSELOR, PIE CRIMPING MACHINE OPERATOR Primary Care Provider [phone] Rebeka Trinidad MD Primary Care Provider + [phone] Ahmet Lorri Annetta SEXUAL ASSAULT COUNSELOR, [facility] Primary Care Provider + [phone] Sharri Gaspar MD Unavailable Kalyan Tani B [facility] Primary Care Provider [phone] Amber Aldrich APRN, [facility] Unavailable Reason for Visit * Reason Comments Medication Refill Encounter Details Date Type Department Care Team (Late st Contact Info) Description 04/01/2022 Refill [facility] - Endocrinology - [place] #[address] [place] [address] David Salmon MD #[address] [address] Medication Refill Social History Tobacco [...] Industry Job Start Date Job End Date [employer] Not on file Not on file Not on 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 No / Unsure 04/04/2022 4:01 PM BUSINESS ANALYST documented as of this encounter Miscellaneous Notes * Telephone Encounter - Yesi Leggett RN - 04/01/2022 1:19 PM BUSINESS ANALYST Requested Prescriptions Pending Prescriptions Disp Refills ??? Glucose Blood (OneTouch Verio) Strip [Pharmacy Med Name: ONE TOUCH VERIO TEST ST(NEW)100S] 200 Strip Sig: TEST BLOOD SUGAR TWICE DAILY Next appt: 04/30/2022 NESS ANALYST documented in this encounter Plan of Treatment Upcoming Encounters Date Type Department Care Team (Latest Contact Info) Description 11/12/2024 9:00 AM CDT [facility]ointment [facility] Nuclear Medicine [address] [place] [address] Amber Aldrich APRN, PIE CRIMPING MACHINE OPERATOR [address] [place] [address] Discharge Disposition: Discharged to home or Selfcare 11/12/2024 9:15 AM CDT Appointment [facility] Nuclear Medicine [address] [place] [address] Amber Aldrich APRN, PIE CRIMPING MACHINE OPERATOR #[address] [place] [address] Discharge Disposition: Discharged to home or Selfcare 11/12/2024 9:30 AM CDT Hospital Encounter [facility] Cardiology Stress [address] [place] [address] Amber Aldrich APRN, PIE CRIMPING MACHINE OPERATOR [address] [place] [address] 11/12/2024 10:00 AM CDT Appointment [facility] Nuclear Medicine [address] [place] [address] Amber Aldrich APRN, PIE CRIMPING MACHINE OPERATOR [address] [place] [address] Discharge Disposition: Discharged to home or Selfcare 11/17/2024 2:00 PM CDT Telemedicine [facility] [address] [place] [address] Alize Acosta, RUSSELL, PIE CRIMPING MACHINE OPERATOR [address] [place] [address] 11/18/2024 3:45 PM CDT Office Visit [facility] - Endocrinology - [place] [address] [place] [address] David Salmon MD #[address] [address] 01/03/2025 11:30 AM CDT Office Visit [facility] Neurology - [place] [address] [place] [address] Rachelle Nava, SEXUAL ASSAULT COUNSELOR, SECOND CUTTER [address] [place] [address] 03/04/2025 3:10 PM BUSINESS ANALYST Lab [facility] Primary [facility] [place] [address] [place] [address] [facility] 03/04/2025 3:30 PM BUSINESS ANALYST Office Visit [facility] Primary [facility] [place] [address] [place] [address] Tani Biggs PAC [address] [place] [address] 03/17/2025 1:30 PM BUSINESS ANALYST [facility] [address] [place] [address] Melony Asif August, PAC [address] [place] [address] Discharge Disposition: Discharged to home or Selfcare 03/25/2025 1:20 PM BUSINESS ANALYST Office Visit [facility] Oncology Services [address] [place] [address] Melony Asif August, PAC [address] [place] [address] Discharge Disposition: Discharged to home or Selfcare 04/25/2025 2:00 PM BUSINESS ANALYST Office Visit [facility] - Cardiology - [place] [address] [place] [address] Laisha Griffin, DO [address] [address] 07/18/2025 1:00 PM CDT Office Visit [facility] - Pulmonology & Sleep Medicine [facility] #2 [place] [address] Dom Quiñonez MD #2 [place] [address] documented as of this encounter Goals Goal [...] as recommended. Depression Depression Improving( 2:27 PM BUSINESS ANALYST) No Breanne Saldana, SANDEEP Note: Goal/Objective: Decrease symptoms of depression [...] 19 04/18/2024 04/18/2024 04/18/2024 10:4 7 PM BUSINESS ANALYST Respiratory Rule-Out 05/06/2024 05/06/2024 025 9:20 AM BUSINESS ANALYST COVID - 19 05/06/2024 05/06/2024 05/06/2024 9:19 AM BUSINESS ANALYST Assessment Noted Time PHQ-9 Depression Total Score: 24 022 3:31 PM BUSINESS ANALYST documented as of this encounter Care Teams Orthopedics Nurse Relationship Specialty Start Date End Date Jackeline Dimas, SEXUAL ASSAULT COUNSELOR, PIE CRIMPING MACHINE OPERATOR [address] [place] [address] PCP - General Advanced Practice Nurse 07/31/17 Emilia Tang MD [address] [place] [address] PCP - General Family Medicine 06/07/22 03/25/23 Rebeka Trinidad MD [address] [place] [address] PCP - General Family Medicine 03/26/23 03/29/24 Lorri Leo SEXUAL ASSAULT COUNSELOR, PIE CRIMPING MACHINE OPERATOR [address] [place] [address] PCP - General Certified Nurse Practitioner 03/30/24 04/20/24 Rebeka Trinidad MD [address] [place] [address] PCP - General Family Medicine 04/21/24 04/21/24 Lorri Leo SEXUAL ASSAULT COUNSELOR, PIE CRIMPING MACHINE OPERATOR [address] [place] [address] PCP - General Certified Nurse Practitioner 04/22/24 05/30/24 Tani Biggs, PAC [address] [place] [address] PCP - General Physician Crepe Box Tender 05/31/24 Phil Jacobo MD #[address] [place] [address] Consulting Physician Neurology 03/07/21 Rajiv Mccormack, KELI #[address] [place] [address] Nurse Practitioner Gastroenterology 03/07/21 Alize Acosta, SEXUAL ASSAULT COUNSELOR, PIE CRIMPING MACHINE OPERATOR [address] [place] [address] [facility] ([facility]) GEOSPATIAL INFORMATION TECHNOLOGIST Advanced Practice Nurse 08/30/21 Dayo Chaney MD [address] [place] [address] Managing Partner Cardiovascular Disease - Cardiology 09/20/21 02/12/24 Juanita Mercado RN [place] Registered Nurse Cardiology 12/24/21 02/12/24 David Salmon MD #[address] [address] Consulting Physician Endocrinology 01/15/22 Maurilio Farley MD #[address] [address] Consulting Physician Colon and Rectal Surgery 09/20/22 Physician, Candida Davis MD [address] [place] [address] Family Medicine 01/25/22 03/18/23 Dom Quiñonez MD #2 [place] [address] Consulting Physician Pulmonary Disease 11/19/21 Rachelle Nava, SEXUAL ASSAULT COUNSELOR, SECOND CUTTER #[address] [place] [address] Nurse Practitioner Advanced Practice Nurse 07/19/22 Irais Naylor APRN, PIE CRIMPING MACHINE OPERATOR #2 [facility] [address] [place] [address] Nurse Practitioner Cardiology 06/27/23 07/29/24 Sharri Gaspar MD [address] [place] [address] Consulting Physician Cardiology 04/26/24 Amber Aldrich APRN, PIE CRIMPING MACHINE OPERATOR #[address] [facility] [place] [address] Nurse Practitioner Cardiology 07/30/24 documented as of this encounter
--- OUTSIDE RECORDS SUMMARY | 2024-11-11 14:45 | XMS_ITS | Encounter Summary ---
Author Organization [facility] Address [address] [place] [address] Phone Care Team Providers Care Senior Counsel Name Role Phone Jackeline Dimas CASH OFFICE WORKER, AUTO BODY MECHANIC APPRENTICE Primary Care Provider Phil Jacobo MD Unavailable [phone] Rajiv Mccormack NP Unavailable Unavailable Alize Acosta CASH OFFICE WORKER, AUTO BODY MECHANIC APPRENTICE Unavailable [phone] Dayo Chaney MD Unavailable Juanita Hauser RN Unavailable UnavailDavid Alexandre MD Unavailable Emilia Tang MD Primary Care Provider [phone] Maurilio Farley MD Unavailable Physician, Candida Davis MD Unavailable Rebeka Trinidad MD Primary Care Provider + [phone] Dom Quiñonez MD Unavailable Rachelle Nava CASH OFFICE WORKER, OPTICS TECHNICAL OFFICER Unavailable + [phone] Irais Naylor CASH OFFICE WORKER, AUTO BODY MECHANIC APPRENTICE Unavailable + [phone] Lorri Leo CASH OFFICE WORKER, AUTO BODY MECHANIC APPRENTICE Primary Care Provider [phone] Rebeka Trinidad MD Primary Care Provider + [phone] AhmetLorri Annetta CASH OFFICE WORKER, [facility] Primary Care Provider + [phone] Sharri Gaspar MD Unavailable Kalyan Tani B [facility] Primary Care Provider [phone] Amber Aldrich APRN, [facility] Unavailable Reason for Visit * Reason Comments Medication Refill Encounter Details Date Type Department Care Team (Late st Contact Info) Description 05/18/2022 Refill [facility] - Endocrinology - [place] [address] [place] [address] David Salmon MD #[address] [address] Medication Refill Social History Tobacco [...] 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 Unable to assess 05/01/2022 2:58 PM FISCAL ANALYST documented as of this encounter Miscellaneous Notes * Telephone Encounter - Yesi Leggett RN - 05/20/2022 8:26 AM CDT Requested Prescriptions Pending Prescriptions Disp Refills ??? Lancets (OneTouch Delica Plus [id number]) Misc [Pharmacy Med Name: ONE TOUCH DELICA PLUS 33G LANCETS] 200 Each Sig: USE TO TEST BLOOD GLUCOSE TWICE DAILY Next appt: 07/30/2022 documented in this encounter Plan of Treatment Upcoming Encounters Date Type Department Care Team (Latest Contact Info) Description 11/12/2024 9:00 AM CDT [facility] Nuclear Medicine [address] [place] [address] Amber Aldrich APRN, AUTO BODY MECHANIC APPRENTICE #[address] [place] [address] Discharge Disposition: Discharged to home or Selfcare 11/12/2024 9:15 AM CDT Appointment [facility] Nuclear Medicine [address] [place] [address] Amber Aldrich APRN, AUTO BODY MECHANIC APPRENTICE #[address] [place] [address] Discharge Disposition: Discharged to home or Selfcare 11/12/2024 9:30 AM CDT Hospital [facility] Cardiology Stress [address] [place] [address] Amber Aldrich APRN, AUTO BODY MECHANIC APPRENTICE #[address] [place] [address] 11/12/2024 10:00 AM CDT Appointment [facility] Nuclear Medicine [address] [place] [address] Amber Aldrich APRN, AUTO BODY MECHANIC APPRENTICE #[address] [place] [address] Discharge Disposition: Discharged to home or Selfcare 11/17/2024 2:00 PM CDT Telemedicine [facility] [address] [place] [address] Alize Acosta, RUSSELL, AUTO BODY MECHANIC APPRENTICE [address] [place] [address] 11/18/2024 3:45 PM CDT Office Visit [facility] - Endocrinology - [place] [address] [place] [address] David Salmon MD #[address] [address] 01/03/2025 11:30 AM CDT Office Visit [facility] Neurology - [place] [address] [place] [address] Rachelle Nava, CASH OFFICE WORKER, OPTICS TECHNICAL OFFICER #[address] [place] [address] 03/04/2025 3:10 PM FISCAL ANALYST Lab [facility] Primary Care - [place] [address] [place] [address] [facility] 03/04/2025 3:30 PM FISCAL ANALYST Office Visit [facility] Primary [facility] - [place] [address] [place] [address] Tani Biggs PAC [address] [place] [address] 03/17/2025 1:30 PM FISCAL ANALYST [facility] Oncology Services [address] [place] [address] Melony Asif August, PAC [address] [place] [address] Discharge Disposition: Discharged to home or Selfcare 03/25/2025 1:20 PM FISCAL ANALYST Office Visit [facility] Oncology Services [address] [place] [address] Melony Asif August, PAC [address] [place] [address] Discharge Disposition: Discharged to home or Selfcare 04/25/2025 2:00 PM FISCAL ANALYST Office Visit [facility] - Cardiology [facility] #2 [place] [address] Laisha Griffin, DO [address] [address] 07/18/2025 1:00 PM CDT Office Visit [facility] - Pulmonology & Sleep Medicine [facility] #2 [place] [address] Dom Quiñonez MD #[address] [place] [address] documented as of this encounter Goals Goal [...] as recommended. Depression Depression Improving( 2:27 PM FISCAL ANALYST) No Breanne Saldana LCSW Note: Goal/Objective: Decrease [...] 19 04/18/2024 04/18/2024 04/18/2024 10:4 7 PM FISCAL ANALYST Respiratory Rule-Out 05/06/2024 05/06/2024 025 9:20 AM FISCAL ANALYST COVID - 19 05/06/2024 05/06/2024 05/06/2024 9:19 AM FISCAL ANALYST Assessment Noted Time PHQ-9 Depression Total Score: 24 022 3:31 PM FISCAL ANALYST documented as of this encounter Care Teams Senior Counsel Relationship Specialty Start Date End Date Jackeline Dimas, CASH OFFICE WORKER, AUTO BODY MECHANIC APPRENTICE [address] [place] [address] PCP - General Advanced Practice Nurse 07/31/17 Emilia Tang MD [address] [place] [address] PCP - General Family Medicine 06/07/22 03/25/23 Rebeka Trinidad MD [address] [place] [address] PCP - General Family Medicine 03/26/23 03/29/24 Lorri Leo APRN, AUTO BODY MECHANIC APPRENTICE [address] [place] [address] PCP - General Certified Nurse Practitioner 03/30/24 04/20/24 Rebeka Trinidad MD [address] [place] [address] PCP - General Family Medicine 04/21/24 04/21/24 Lorri Leo APRN, AUTO BODY MECHANIC APPRENTICE [address] [place] [address] PCP - General Certified Nurse Practitioner 04/22/24 05/30/24 Tani Biggs PAC [address] [place] [address] PCP - General Physician Kaiako Kohanga Reo 05/31/24 Phil Jacobo MD #[address] [place] [address] Consulting Physician Neurology 03/07/21 Rajiv Mccormack, KELI [address] [place] [address] Nurse Practitioner Gastroenterology 03/07/21 Alize Acosta, CASH OFFICE WORKER, AUTO BODY MECHANIC APPRENTICE [address] [place] [address] [facility] ([facility]) ORACLE ETL DEVELOPER Advanced Practice Nurse 08/30/21 Dayo Chaney MD [address] [place] [address] Sharepoint Application Developer Cardiovascular Disease - Cardiology 09/20/21 02/12/24 Juanita Mercado RN [place] Registered Nurse Cardiology 12/24/21 02/12/24 David Salmon MD #[address] [address] Consulting Physician Endocrinology 01/15/22 Maurilio Farley MD #[address] [address] Consulting Physician Colon and Rectal Surgery 09/20/22 Physician, Candida Davis MD [address] [place] [address] Family Medicine 01/25/22 03/18/23 Dom Quiñonez MD #[address] [place] [address] Consulting Physician Pulmonary Disease 11/19/21 Rachelle Nava, CASH OFFICE WORKER, OPTICS TECHNICAL OFFICER #[address] [place] [address] Nurse Practitioner Advanced Practice Nurse 07/19/22 Irais Naylor APRN, AUTO BODY MECHANIC APPRENTICE #[address] [facility] [address] [place] [address] Nurse Practitioner Cardiology 06/27/23 07/29/24 Sharri Gaspar MD 2 [facility] [address] [facility], [address] [place] [address] Consulting Physician Cardiology 04/26/24 Amber Aldrich APRN, AUTO BODY MECHANIC APPRENTICE #[address] [facility] [place] [address] Nurse Practitioner Cardiology 07/30/24 documented as of this encounter
--- OUTSIDE RECORDS SUMMARY | 2024-11-11 14:45 | XMS_ITS | Encounter Summary ---
Author Organization [facility] Address [address] [place] [address] Phone Care Team Providers Care Metal Fabricator Name Role Phone Phil Jacobo MD Unavailable [phone] Rajiv Mccormack NP Unavailable Unavailable Alize Acosta APRN, DIRECTOR OF CONSERVATION Unavailable [phone] Dayo Chaney MD Unavailable Juanita Hauser RN Unavailable UnavailDavid Alexandre MD Unavailable Maurilio Farley MD Unavailable Rebeka Trinidad MD Primary Care Provider + [phone] Dom Quiñonez MD Unavailable Rachelle Nava BLAST FURNACE HELPER, CORONER TRANSPORT TECHNICIAN Unavailable + [phone] Irais Naylor BLAST FURNACE HELPER, DIRECTOR OF CONSERVATION Unavailable + [phone] Lorri Leo BLAST FURNACE HELPER, DIRECTOR OF CONSERVATION Primary Care Provider + [phone] Rebeka Trinidad MD Primary Care Provider + [phone] Lorri Leo BLAST FURNACE HELPER, DIRECTOR OF CONSERVATION Primary Care Provider + [phone] Sharri Gaspar MD Unavailable Tani Biggs PAC Primary Care Provider + [phone] Amber Aldrich APRN, CNP Unavailable Encounter Details Date Type Department Care Team (Late st Contact Info) Description 07/23/2023 Telephone [facility] [address] [place] [address] Rebeka Trinidad MD [address] [place] [address] Social History Tobacco Use Types Packs/Day Years Used Date Smoking Tobacco: Former Cigarettes 1 37.1 1 985 - 04/12/2021 Smokeless Tobacco: Never Alcohol Use Standard Drinks/Week Comments Not Currently 0 (1 standard drink = 0.6 oz pur e alcohol) last drank 2020 [facility] Utilities Answer Date Recorded In the past 12 months has [employer]lectual [employer]ments, gas, oil, or water [employer] threatened to shut off services in your home? No 03/24/2023 Social Connection and Isolation Panel Answer Date Recorded In a typical week, how many times do you talk on the phone with family, friends, or neighbors? Once a week 03/24/2023 How often do you get togethe r with friends or relatives? Never 03/24/2023 How often do you attend [facility] or gnosticism services? More than 4 times per year 03/24/2023 Do you belong to any clubs o r organizations such as protestant groups, unions, fraternal or athletic groups, or [...] Total Score - Questions 1-9 18 08/3 [facility] - Occupational Stress Questionnaire Answer Date [...] place to sleep or slept in a senior care (including now)? 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 Medicine [address] [place] [address] Amber Aldrich APRN, DIRECTOR OF CONSERVATION [address] [place] [address] Discharge Disposition: Discharged to home or Selfcare 11/12/2024 9:15 AM CDT [facility]ment [facility] Nuclear Medicine [address] [place] [address] Amber Aldrich APRN, DIRECTOR OF CONSERVATION [address] [place] [address] Discharge Disposition: Discharged to home or Selfcare 11/12/2024 9:30 AM CDT Hospital Encounter [facility] Stress [address] [place] [address] Amber Aldrich APRN, DIRECTOR OF CONSERVATION [address] [place] [address] 11/12/2024 10:00 AM CDT [facility] Nuclear Medicine [address] [place] [address] Amber Aldrich APRN, DIRECTOR OF CONSERVATION [address] [place] [address] Discharge Disposition: Discharged to home or Selfcare 11/17/2024 2:00 PM CDT Telemedicine [facility] [address] [place] [address] Alize Acosta, BLAST FURNACE HELPER, DIRECTOR OF CONSERVATION [address] [place] [address] 11/18/2024 3:45 PM CDT Office Visit [facility] Endocrinology [facility] #[address] [place] [address] David Salmon MD #[address] [address] 01/03/2025 11:30 AM CDT Office Visit [facility] Neurology [facility] #[address] [place] [address] Rachelle Nava, BLAST FURNACE HELPER, CORONER TRANSPORT TECHNICIAN [address] [place] [address] 03/04/2025 3:10 PM RISK MODELER Lab [facility] [place] [address] [place] [address] [facility] 03/04/2025 3:30 PM RISK MODELER Office Visit [facility] [place] [address] [place] [address] Tani Biggs PAC [address] [place] [address] 03/17/2025 1:30 PM RISK MODELER Lab [facility] Oncology Services [address] [place] [address] Melony Asif, PAC [address] [place] [address] Discharge Disposition: Discharged to home or Selfcare 03/25/2025 1:20 PM RISK MODELER Office Visit [facility] Oncology Services [address] [place] [place] [address] Melony Asif August, PAC [address] [facility] [place] [address] Discharge Disposition: Discharged to home or Selfcare 04/25/2025 2:00 PM RISK MODELER Office Visit [facility] - Cardiology - [place] #[address] [place] [address] Laisha Griffin, DO [address] [address] 07/18/2025 1:00 PM CDT Office Visit [facility] - Pulmonology & Sleep Medicine [facility] #[address] [place] [address] Dom Quiñonez MD #[address] [place] [address] documented as of this encounter Goals Goal [...] a change Department associated with goal: [facility] Steps to achieve [...] diet Depression Depression Improving(0 03/15/2022 2:27 PM RISK MODELER) No Breanne Saldana LCSW Note: Goal/Objective: Decrease [...] 19 04/18/2024 04/18/2024 04/18/2024 10:4 7 PM RISK MODELER Respiratory Rule-Out 05/06/2024 05/06/2024 025 9:20 AM RISK MODELER COVID - 19 05/06/2024 05/06/2024 05/06/2024 9:19 AM RISK MODELER Assessment Noted Time PHQ-9 Depression Total Score: 18 023 9:24 AM CDT documented as of this encounter Care Teams Metal Fabricator Relationship Specialty Start Date End Date Rebeka Trinidad MD [address] [place] [address] PCP - General Family Medicine 03/26/23 03/29/24 Lorri Leo BLAST FURNACE HELPER, DIRECTOR OF CONSERVATION [address] [place] [address] PCP - General Certified Nurse Practitioner 03/30/24 04/20/24 Rebeka Trinidad MD [address] [place] [address] PCP - General Family Medicine 04/21/24 04/21/24 Lorri Leo BLAST FURNACE HELPER, DIRECTOR OF CONSERVATION [address] [place] [address] PCP - General Certified Nurse Practitioner 04/22/24 05/30/24 Tani Biggs PAC [address] [place] [address] PCP - General Physician Jewish History Professor 05/31/24 Phil Jacobo MD #[address] [place] [address] Consulting Physician Neurology 03/07/21 Rajiv Mccormack NP #[address] [place] [address] Nurse Practitioner Gastroenterology 03/07/21 Alize Acosta APRN, DIRECTOR OF CONSERVATION [address] [place] [address] Virtual Advanced Care (VAC) SODA ROOM OPERATOR Advanced Practice Nurse 08/30/21 Dayo Chaney MD [address] [place] [address] Edge Bander Operator Cardiovascular Disease - Cardiology 09/20/21 02/12/24 Juanita Mercado RN [place] Registered Nurse Cardiology 12/24/21 02/12/24 David Salmon MD #[address] [address] Consulting Physician Endocrinology 01/15/22 Maurilio Farley MD #[address] [address] Consulting Physician Colon and Rectal Surgery 09/20/22 Dom Quiñonez MD #[address] [place] [address] Consulting Physician Pulmonary Disease 11/19/21 Rachelle Nava APRN, CORONER TRANSPORT TECHNICIAN #[address] [place] [address] Nurse Practitioner Advanced Practice Nurse 07/19/22 Irais Naylor APRN, DIRECTOR OF CONSERVATION #[address] [address] Nurse Practitioner Cardiology 06/27/23 07/29/24 Sharri Gaspar MD 2 [facility]. [address] [place] [address] Consulting Physician Cardiology 04/26/24 Amber Aldrich APRN, DIRECTOR OF CONSERVATION [address] [place] [address] Nurse Practitioner Cardiology 07/30/24 documented as of this encounter
--- OUTSIDE RECORDS SUMMARY | 2024-11-11 14:45 | XMS_ITS | Encounter Summary ---
Author Organization [facility] Address [address] [place] [address] Phone Care Team Providers Care Chief Merchandising Officer Name Role Phone Jackeline Dimas OIL AND GAS SUPERINTENDENT, LINUX UNIX ADMINISTRATOR Primary Care Provider Phil Jacobo MD Unavailable [phone] Rajiv Mccormack NP Unavailable Unavailable Alize Acosta OIL AND GAS SUPERINTENDENT, LINUX UNIX ADMINISTRATOR Unavailable [phone] Dayo Chaney MD Unavailable Juanita Hauser RN Unavailable UnavailDavid Alexandre MD Unavailable Emilia Tang MD Primary Care Provider [phone] Maurilio Farley MD Unavailable Physician, Candida Davis MD Unavailable Rebeka Trinidad MD Primary Care Provider + [phone] Dom Quiñonez MD Unavailable Rachelle Nava OIL AND GAS SUPERINTENDENT, CEMENT SACK BREAKER Unavailable + [phone] Irais Naylor OIL AND GAS SUPERINTENDENT, LINUX UNIX ADMINISTRATOR Unavailable + [phone] Lorri Leo OIL AND GAS SUPERINTENDENT, LINUX UNIX ADMINISTRATOR Primary Care Provider [phone] Rebeka Trinidad MD Primary Care Provider + [phone] Ahmet Lorri M OIL AND GAS SUPERINTENDENT, [facility] Primary Care Provider + [phone] Sharri Gaspar MD Unavailable Tani Biggs 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 No / Unsure 04/01/2022 1:35 PM STRUCTURAL STEEL TRADES WORKER documented as of this encounter Miscellaneous Notes * Telephone Encounter - Indira Lopez RN - 04/01/2022 8:58 AM STRUCTURAL STEEL TRADES WORKER Refill requested too soon. CTURAL STEEL TRADES WORKER documented in this encounter Plan of Treatment Upcoming Encounters Date Type Department Care Team (Latest Contact Info) Description 11/12/2024 9:00 AM CDT [facility] [address] [place] [address] Amber Aldrich APRN, LINUX UNIX ADMINISTRATOR [address] [place] [address] Discharge Disposition: Discharged to home or Selfcare 11/12/2024 9:15 AM CDT Appointment [facility] Nuclear Medicine [address] [place] [address] Amber Aldrich APRN, LINUX UNIX ADMINISTRATOR [address] [place] [address] Discharge Disposition: Discharged to home or Selfcare 11/12/2024 9:30 AM CDT Hospital Encounter [facility] Cardiology Stress [address] [place] [address] Amber Aldrich APRN, LINUX UNIX ADMINISTRATOR [address] [place] [address] 11/12/2024 10:00 AM CDT Appointment [facility] Nuclear Medicine [address] [place] [address] Amber Aldrich APRN, LINUX UNIX ADMINISTRATOR [address] [place] [address] Discharge Disposition: Discharged to home or Selfcare 11/17/2024 2:00 PM CDT [facility] [address] [place] [address] Alize Acosta, RUSSELL, LINUX UNIX ADMINISTRATOR [address] [place] [address] 11/18/2024 3:45 PM CDT Office Visit [facility] Endocrinology - [place] #[address] [place] [address] David Salmon MD #[address] [address] 01/03/2025 11:30 AM CDT Office Visit [facility] Neurology - [place] [address] [place] [address] Rachelle Nava APRN, CEMENT SACK BREAKER #[address] [place] [address] 03/04/2025 3:10 PM STRUCTURAL STEEL TRADES WORKER Lab [facility] [place] [address] [place] [address] [facility] 03/04/2025 3:30 PM STRUCTURAL STEEL TRADES WORKER Office Visit [facility] [place] [address] [place] [address] Tani Biggs PAC [address] [place] [address] 03/17/2025 1:30 PM STRUCTURAL STEEL TRADES WORKER Lab [facility] Oncology Services [address] [place] [address] Melony Asif PAC [address] [place] [address] Discharge Disposition: Discharged to home or Selfcare 03/25/2025 1:20 PM STRUCTURAL STEEL TRADES WORKER Office Visit [facility] Oncology Services [address] [place] [address] Melony Asif Stacey, PAC [address] [place] [address] Discharge Disposition: Discharged to home or Selfcare 04/25/2025 2:00 PM STRUCTURAL STEEL TRADES WORKER Office Visit [facility] Cardiology [facility] #[address] [place] [address] Laisha Griffin, DO [address] [address] 07/18/2025 1:00 PM CDT Office Visit [facility] Pulmonology & Sleep Medicine [facility] #[address] [place] [address] Dom Quiñonez MD #[address] [place] [address] documented as of this encounter Goals Goal [...] as recommended. Depression Depression Improving( 2:27 PM STRUCTURAL STEEL TRADES WORKER) No Breanne Saldana, TUBING TESTER Note: Goal/Objective: Decrease symptoms of depression associated [...] regular. 1999mg Sodium Daily Sodium Intake On track(2023 2:42 [...] 19 04/18/2024 04/18/2024 04/18/2024 10:4 7 PM STRUCTURAL STEEL TRADES WORKER Respiratory Rule-Out 05/06/2024 05/06/2024 025 9:20 AM STRUCTURAL STEEL TRADES WORKER COVID - 19 05/06/2024 05/06/2024 05/06/2024 9:19 AM STRUCTURAL STEEL TRADES WORKER Assessment Noted Time PHQ-9 Depression Total Score: 24 022 3:31 PM STRUCTURAL STEEL TRADES WORKER documented as of this encounter Care Teams Chief Merchandising Officer Relationship Specialty Start Date End Date Jackeline Dimas, OIL AND GAS SUPERINTENDENT, LINUX UNIX ADMINISTRATOR [address] [place] [address] PCP - General Advanced Practice Nurse 07/31/17 Emilia Tang MD [address] [place] [address] PCP - General Family Medicine 06/07/22 03/25/23 Rebeka Trinidad MD [address] [place] [address] PCP - General Family Medicine 03/26/23 03/29/24 Lorri Leo APRN, LINUX UNIX ADMINISTRATOR [address] [place] [address] PCP - General Certified Nurse Practitioner 03/30/24 04/20/24 Rebeka Trinidad MD [address] [place] [address] PCP - General Family Medicine 04/21/24 04/21/24 Lorri Leo APRN, LINUX UNIX ADMINISTRATOR [address] [place] [address] PCP - General Certified Nurse Practitioner 04/22/24 05/30/24 Tani Biggs, PAC [address] [place] [address] PCP - General Physician Concreting Supervisor 05/31/24 Phil Jacobo MD #[address] [place] [address] Consulting Physician Neurology 03/07/21 Rajiv Mccormack, CLINICAL NURSING INSTRUCTOR #[address] [place] [address] Nurse Practitioner Gastroenterology 03/07/21 Alize Acosta APRN, LINUX UNIX ADMINISTRATOR [address] [place] [address] Virtual Advanced Care (VAC) BRIM AND CROWN PRESSER Advanced Practice Nurse 08/30/21 Dayo Chaney MD [address] [place] [address] Parachute Accessories Attacher Cardiovascular Disease - Cardiology 09/20/21 02/12/24 Juanita Mercado RN [place] Registered Nurse Cardiology 12/24/21 02/12/24 David Salmon MD #[address] [address] Consulting Physician Endocrinology 01/15/22 Maurilio Farley MD #[address] [address] Consulting Physician Colon and Rectal Surgery 09/20/22 Physician, Candida Davis MD [address] [place] [address] Family Medicine 01/25/22 03/18/23 Dom Quiñonez MD #[address] [place] [address] Consulting Physician Pulmonary Disease 11/19/21 Rachelle Nava APRN, CEMENT SACK BREAKER #[address] [place] [address] Nurse Practitioner Advanced Practice Nurse 07/19/22 Irais Naylor APRN, LINUX UNIX ADMINISTRATOR #[address] [address] Nurse Practitioner Cardiology 06/27/23 07/29/24 Sharri Gaspar MD 2 [facility] [place] [address] [address] Consulting Physician Cardiology 04/26/24 Amber Aldrich APRN, LINUX UNIX ADMINISTRATOR #[address] [place] [address] Nurse Practitioner Cardiology 07/30/24 documented as of this encounter
--- OUTSIDE RECORDS SUMMARY | 2024-11-11 14:45 | XMS_ITS | Encounter Summary ---
Author Organization [facility] Address [address] [place] [address] Phone Care Team Providers Care Head Charrer Name Role Phone Phil Jacobo MD Unavailable [phone] Rajiv Mccormack NP Unavailable Unavailable Alize Acosta APRN, NITRATOR OPERATOR Unavailable [phone] Dayo Chaney MD Unavailable Juanita Hauser RN Unavailable UnavailDavid Alexandre MD Unavailable Maurilio Farley MD Unavailable Rebeka Trinidad MD Primary Care Provider + [phone] Dom Quiñonez MD Unavailable Rachelle Nava CONDITIONING YARD SUPERVISOR, LINE INSTALLER TROLLEY Unavailable + [phone] Irais Naylor CONDITIONING YARD SUPERVISOR, NITRATOR OPERATOR Unavailable + [phone] Lorri Leo CONDITIONING YARD SUPERVISOR, NITRATOR OPERATOR Primary Care Provider + [phone] Rebeka Trinidad MD Primary Care Provider + [phone] Lorri Leo CONDITIONING YARD SUPERVISOR, NITRATOR OPERATOR Primary Care Provider + [phone] Sharri Gaspar MD Unavailable Tani Biggs [facility] Primary Care Provider + [phone] Amber Aldrich APRN, CNP Unavailable Reason for Visit * Reason Comments Medication Refill Encounter Details Date Type Department Care Team (Late st Contact Info) Description 07/18/2023 Refill [facility] - Primary Care - [place] [address] [place] [address] Rebeka Trinidad MD [address] [place] [address] Medication Refill Social History Tobacco Use Types Packs/Day Years Used Date Smoking Tobacco: Former Cigarettes 1 37.1 1 985 - 04/12/2021 Smokeless Tobacco: Never Alcohol Use Standard Drinks/Week Comments Not Currently 0 (1 standard drink = 0.6 oz pur e alcohol) last drank 2020 [facility] Utilities Answer Date Recorded In the past 12 months has [employer] electric, gas, oil, or water [employer] threatened to shut off services in your home? No 03/24/2023 Social Connection and Isolation Panel Answer Date Recorded In a typical week, how many times do you talk on the phone with family, friends, or neighbors? Once a week 03/24/2023 How often do you get togethe r with friends or relatives? Never 03/24/2023 How often do you attend [facility] or mandaeism services? More than 4 times per year 03/24/2023 Do you belong to any clubs o r organizations such as scientologist groups, unions, fraternal or athletic groups, or [...] Total Score - Questions 1-9 18 10/10 [facility] of Occupat ional [facility] - Occupational Stress Questionnaire Answer Date Recorded [...] in a fdc (including now)? 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 [...] Info) Description 11/12/2024 9:00 AM CDT [facility]ment [facility] Nuclear Medicine [address] [place] [address] Amber Aldrich APRN, NITRATOR OPERATOR [address] [place] [address] Discharge Disposition: Discharged to home or Selfcare 11/12/2024 9:15 AM CDT [facility]ointment [facility] Nuclear Medicine [address] [place] [address] Amber Aldrich APRN, NITRATOR OPERATOR [address] [place] [address] Discharge Disposition: Discharged to home or Selfcare 11/12/2024 9:30 AM CDT Hospital [facility] Cardiology Stress [address] [place] [address] Amber Aldrich APRN, NITRATOR OPERATOR [address] [place] [address] 11/12/2024 10:00 AM CDT [facility]ment [facility] Nuclear Medicine [address] [place] [address] Amber Aldrich, CONDITIONING YARD SUPERVISOR, NITRATOR OPERATOR [address] [place] [address] Discharge Disposition: Discharged to home or Selfcare 11/17/2024 2:00 PM CDT Telemedicine [facility] [address] [place] [address] Alize Acosta, CONDITIONING YARD SUPERVISOR, NITRATOR OPERATOR [address] [place] [address] 11/18/2024 3:45 PM CDT Office Visit [facility] - Endocrinology - [place] [address] [place] [address] David Salmon MD #[address] [address] 01/03/2025 11:30 AM CDT Office Visit [facility] - Neurology - [place] [address] [place] [address] Rachelle Nava, CONDITIONING YARD SUPERVISOR, LINE INSTALLER TROLLEY [address] [place] [address] 03/04/2025 3:[address] SCAN SPECIAL PROCEDURES TECHNOLOGIST Lab [facility] [place] [phone] [facility] 03/04/2025 3:[address] SCAN SPECIAL PROCEDURES TECHNOLOGIST Office Visit [facility] [place] [phone] Tani Biggs, [facility] [address] [facility] [place] [address] 03/17/2025 1:[address] SCAN SPECIAL PROCEDURES TECHNOLOGIST Lab [facility] Oncology Services [address] [place] [address] Melony Asif Stacey, [facility] [address] [place] [address] Discharge Disposition: Discharged to home or Selfcare 03/25/2025 1:[address] SCAN SPECIAL PROCEDURES TECHNOLOGIST Office Visit [facility] Oncology Services [address] [place] [address] Melony Asif St[place], [facility] [address] [place] [address] Discharge Disposition: Discharged to home or Selfcare 04/25/2025 2:[address] SCAN SPECIAL PROCEDURES TECHNOLOGIST Office Visit [facility] - Cardiology - [place] [address] [place] [address] Laisha Griffin, DO [address] [address] 07/18/2025 1:00 PM CDT Office Visit [facility] - Pulmonology & Sleep Medicine [facility] [address] [place] [address] Dom Quiñonez MD [address] [place] [address] documented as of this encounter Goals Goal Patient Goal Type Associated Problems Recent Progress Patient-Stated? Author ACTIVITY Activity No change(08/08 2:42 PM CDT) Yes Maritza Vanegas, RN Note: Bonny will walk five days a week. Goal Reviewed with: Bonny Readiness to change: Department associated with goal: [facility] Steps to achieve goal: Walking 5 days a week I want to be able to be around people and feel less depressed. Behavioral Health Worsening(0 09/22/2023 3:12 PM CDT) Hilda Mesa, [facility] Note: Goal/Objective: Decrease symptoms of depression and anxiety. Anticipated Time Frame for Goal Completion: 3 months Goal Reviewed with: patient Readiness to change: Thinking about making a change Department associated with goal: [facility] Steps to achieve [...] diet Depression Depression Improving(0 03/15/2022 2:[address] SCAN SPECIAL PROCEDURES TECHNOLOGIST) No Breanne Saldana LCSW Note: Goal/Objective: Decrease [...] 19 04/18/2024 04/18/2024 04/18/2024 10:[address] SCAN SPECIAL PROCEDURES TECHNOLOGIST Respiratory Rule-Out 05/06/2024 05/06/2024 025 9:[address] SCAN SPECIAL PROCEDURES TECHNOLOGIST COVID - 05/06/2024 05/06/2024 05/06/2024 9:[address] SCAN SPECIAL PROCEDURES TECHNOLOGIST Assessment Noted Time PHQ-9 Depression Total Score: 18 023 9:24 AM CDT documented as of this encounter Care Teams Head Charrer Relationship Specialty Start Date End Date Rebeka Trinidad MD [address] [place] [address] PCP - General Family Medicine 03/26/23 03/29/24 Lorri Leo APRN, NITRATOR OPERATOR [address] [place] [address] [address] PCP - General Certified Nurse Practitioner 03/30/24 04/20/24 Rebeka Trinidad MD [address] [place] [address] PCP - General Family Medicine 04/21/24 04/21/24 Lorri Leo APRN, NITRATOR OPERATOR [address] [place] [address] [address] PCP - General Certified Nurse Practitioner 04/22/24 05/30/24 Tani Biggs, PAC [address] [place] [address] PCP - General Physician Kettle Fry Cook Operator 05/31/24 Phil Jacobo MD [address] [place] [address] Consulting Physician Neurology 03/07/21 Rajiv Mccormack, KELI [address] [place] [address] Nurse Practitioner Gastroenterology 03/07/21 Alize Acosta, CONDITIONING YARD SUPERVISOR, NITRATOR OPERATOR [address] [place] [address] [facility] ([facility]) PLAYER SERVICES REPRESENTATIVE Advanced Practice Nurse 08/30/21 Dayo Chaney MD [address] [place] [address] Magistrate Cardiovascular Disease - Cardiology 09/20/21 02/12/24 Juainta Mercado RN [place] Registered Nurse Cardiology 12/24/21 02/12/24 David Salmon MD #[address] [address] Consulting Physician Endocrinology 01/15/22 Maurilio Farley MD #[address] [id number] Consulting Physician Colon and Rectal Surgery 09/20/22 Dom Quiñonez MD #[address] [place] [address] Consulting Physician Pulmonary Disease 11/19/21 Rachelle Nava APRN, LINE INSTALLER TROLLEY [address] [place] [address] Nurse Practitioner Advanced Practice Nurse 07/19/22 Irais Naylor APRN, NITRATOR OPERATOR #2 [facility] [address] [place] [address] Nurse Practitioner Cardiology 06/27/23 07/29/24 Sharri Gaspar MD 2 [facility] [place] [facility] [address] [place] [address] Consulting Physician Cardiology 04/26/24 Amber Aldrich APRN, NITRATOR OPERATOR [address] [place] [address] Nurse Practitioner Cardiology 07/30/24 documented as of this encounter
--- OUTSIDE RECORDS SUMMARY | 2024-11-11 14:45 | XMS_ITS | Encounter Summary ---
Author Organization [facility] Address [address] [place] [address] Phone Care Team Providers Care Talent Acquisition Assistant Name Role Phone Jackeline Dimas CUSTODIAN SUPERVISOR, WIRE TINNER Primary Care Provider Phil Jacobo MD Unavailable [phone] Rajiv Mccormack NP Unavailable Unavailable Alize Acosta CUSTODIAN SUPERVISOR, WIRE TINNER Unavailable [phone] Dayo Chaney MD Unavailable Juanita Hauser RN Unavailable UnavailDavid Alexandre MD Unavailable Emilia Tang MD Primary Care Provider [phone] Maurilio Farley MD Unavailable Physician, Candida Davis MD Unavailable Rebeka Trinidad MD Primary Care Provider + [phone] Dom Quiñonez MD Unavailable Rachelle Nava CUSTODIAN SUPERVISOR, ENGAGEMENT LEAD Unavailable + [phone] Irais Naylor CUSTODIAN SUPERVISOR, WIRE TINNER Unavailable + [phone] Lorri Leo CUSTODIAN SUPERVISOR, WIRE TINNER Primary Care Provider [phone] Rebeka Trinidad MD Primary Care Provider + [phone] Ahmet Lorri Annetta CUSTODIAN SUPERVISOR, [facility] Primary Care Provider + [phone] Sharri Gaspar MD Unavailable Tani Biggs [facility] Primary Care Provider [phone] Amber Aldrich CUSTODIAN SUPERVISOR, [facility] Unavailable Reason for Visit * Reason Comments Medication Refill Encounter Details Date Type Department Care Team (Late st Contact Info) Description 02/19/2022 Refill [facility] - Primary Care - [place] [address] [place] [address] Jackleine Dimas CUSTODIAN SUPERVISOR, [facility] [address] [place] [address] Medication Refill Social History Tobacco [...] 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 No / Unsure 02/22/2022 2:34 PM CARTOGRAPHY/MAPPING TECHNICIAN documented as of this encounter Miscellaneous Notes * Telephone Encounter - Yoana Rojas, RN - 02/19/2022 2:49 PM CST Dosing changed to 50 mg 01/15/22. OGRAPHY/MAPPING TECHNICIAN documented in this encounter Plan of Treatment Upcoming Encounters Date Type Department Care Team (Latest Contact Info) Description 11/12/2024 9:00 AM CDT [facility]ointment [facility] Nuclear Medicine [address] [place] [address] Amber Aldrich APRN, WIRE TINNER [address] [place] [address] Discharge Disposition: Discharged to home or Selfcare 11/12/2024 9:15 AM CDT Appointment [facility] Nuclear Medicine [address] [place] [address] Amber Aldrich APRN, WIRE TINNER [address] [place] [address] Discharge Disposition: Discharged to home or Selfcare 11/12/2024 9:30 AM CDT Hospital Encounter [facility] Cardiology Stress [address] [place] [address] Amber Aldrich APRN, WIRE TINNER [address] [place] [address] 11/12/2024 10:00 AM CDT Appointment [facility] Nuclear Medicine [address] [place] [address] Amber Aldrich APRN, WIRE TINNER [address] [place] [address] Discharge Disposition: Discharged to home or Selfcare 11/17/2024 2:00 PM CDT Telemedicine [facility] [address] [place] [address] Alize Acosta, RUSSELL, WIRE TINNER [address] [place] [address] 11/18/2024 3:45 PM CDT Office Visit [facility] Endocrinology - [place] [address] [place] [address] David Salmon MD #[address] [address] 01/03/2025 11:30 AM CDT Office Visit [facility] Neurology - [place] [address] [place] [address] Rachelle Nava APRN, ENGAGEMENT LEAD [address] [place] [address] 03/04/2025 3:10 PM CARTOGRAPHY/MAPPING TECHNICIAN Lab [facility] Primary [facility] - [place] [address] [place] [address] [facility] 03/04/2025 3:30 PM CARTOGRAPHY/MAPPING TECHNICIAN Office Visit [facility] Primary [facility] - [place] [address] [place] [address] Tani Biggs PAC [address] [place] [address] 03/17/2025 1:30 PM CARTOGRAPHY/MAPPING TECHNICIAN Lab [facility] Oncology Services [address] [place] [address] Melony Asif PAC [address] [place] [address] Discharge Disposition: Discharged to home or Selfcare 03/25/2025 1:20 PM CARTOGRAPHY/MAPPING TECHNICIAN Office Visit [facility] Oncology Services [address] [place] [address] Melony Asif Stacey, PAC [address] [place] [address] Discharge Disposition: Discharged to home or Selfcare 04/25/2025 2:00 PM CARTOGRAPHY/MAPPING TECHNICIAN Office Visit [facility] Cardiology [facility] #[address] [place] [address] Laisha Griffin, DO [address] [address] 07/18/2025 1:00 PM CDT Office Visit [facility] Pulmonology & Sleep Medicine [facility] #[address] [place] [address] Dom Quiñonez MD [address] [place] [address] documented as of this encounter Goals Goal [...] as recommended. Depression Depression Improving( 2:27 PM CARTOGRAPHY/MAPPING TECHNICIAN) No Breanne Saldnaa, TREATING PLANT OPERATOR Note: Goal/Objective: Decrease symptoms of depression associated [...] 19 04/18/2024 04/18/2024 04/18/2024 10:4 7 PM CARTOGRAPHY/MAPPING TECHNICIAN Respiratory Rule-Out 05/06/2024 05/06/2024 025 9:20 AM CARTOGRAPHY/MAPPING TECHNICIAN COVID - 19 05/06/2024 05/06/2024 05/06/2024 9:19 AM CARTOGRAPHY/MAPPING TECHNICIAN Assessment Noted Time PHQ-9 Depression Total Score: 24 022 3:31 PM CARTOGRAPHY/MAPPING TECHNICIAN documented as of this encounter Care Teams Talent Acquisition Assistant Relationship Specialty Start Date End Date Jackeline Dimas, CUSTODIAN SUPERVISOR, WIRE TINNER [address] [place] [address] PCP - General Advanced Practice Nurse 07/31/17 Emilia Tang MD [address] [place] [address] PCP - General Family Medicine 06/07/22 03/25/23 Rebeka Trinidad MD [address] [place] [address] PCP - General Family Medicine 03/26/23 03/29/24 Lorri Leo APRN, WIRE TINNER [address] [place] [address] PCP - General Certified Nurse Practitioner 03/30/24 04/20/24 Rebeka Trinidad MD [address] [place] [address] PCP - General Family Medicine 04/21/24 04/21/24 Lorri Leo APRN, WIRE TINNER [address] [place] [address] PCP - General Certified Nurse Practitioner 04/22/24 05/30/24 Tani Biggs, PAC [address] [place] [address] PCP - General Physician Burner Tender 05/31/24 Phil Jacobo MD #[address] [place] [address] Consulting Physician Neurology 03/07/21 Rajiv Mccormack, INTERMODAL OWNER OPERATOR TRUCK DRIVER [address] [place] [address] Nurse Practitioner Gastroenterology 03/07/21 Alize Acosta APRN, WIRE TINNER [address] [place] [address] [facility] ([facility]AC) TYPING SECRETARY Advanced Practice Nurse 08/30/21 Dayo Chaney MD [address] [place] [address] Auto Battery Builder Cardiovascular Disease - Cardiology 09/20/21 02/12/24 Juanita Mercado RN [place] Registered Nurse Cardiology 12/24/21 02/12/24 David Salmon MD #[address] [address] Consulting Physician Endocrinology 01/15/22 Maurilio Farley MD #[address] [address] Consulting Physician Colon and Rectal Surgery 09/20/22 Physician, Candida Davis MD [address] [place] [address] Family Medicine 01/25/22 03/18/23 Dom Quiñonez MD #[address] [place] [address] Consulting Physician Pulmonary Disease 11/19/21 Rachelle Nava APRN, ENGAGEMENT LEAD #[address] [place] [address] Nurse Practitioner Advanced Practice Nurse 07/19/22 Irais Naylor APRN, WIRE TINNER #[address] [address] Nurse Practitioner Cardiology 06/27/23 07/29/24 Sharri Gaspar MD 2 [facility] [address] [address] Consulting Physician Cardiology 04/26/24 Amber Aldrich APRN, WIRE TINNER [address] [place] [address] Nurse Practitioner Cardiology 07/30/24 documented as of this encounter
--- OUTSIDE RECORDS SUMMARY | 2024-11-11 14:45 | XMS_ITS | Encounter Summary ---
Author Organization [facility] Address [address] [place] [address] Phone Care Team Providers Care Yard Engineer Name Role Phone Phil Jacobo MD Unavailable [phone] Rajiv Mccormack NP Unavailable Unavailable Alize Acosta SLATE CUTTER, NURSE WOUND Unavailable [phone] Dayo Chaney MD Unavailable Juanita Hauser RN Unavailable Unavaila David Martinez MD Unavailable Emilia Tang MD Primary Care Provider [phone] Maurilio Farley MD Unavailable PhysicianCandida MD Unavailable Rebeka Trinidad MD Primary Care Provider + [phone] Dom Quiñonez MD Unavailable Rachelle Nava SLATE CUTTER, INTRANET SPECIALIST Unavailable + [phone] Irais Naylor SLATE CUTTER, NURSE WOUND Unavailable + [phone] Lorri Leo SLATE CUTTER, NURSE WOUND Primary Care Provider + [phone] Rebeka Trinidad MD Primary Care Provider + [phone] Lorri Leo SLATE CUTTER, NURSE WOUND Primary Care Provider + [phone] Sharri Gaspar MD Unavailable Tani Biggs Primary Care Provider + [phone] Amber Adlrich SLATE CUTTER, NURSE WOUND Unavailable Reason for Visit * Reason Comments Medication Refill Encounter Details Date Type Department Care Team (Late st Contact Info) Description 06/18/2022 Refill [facility] [address] [place] [address] Jackeline Dimas, SLATE CUTTER, NURSE WOUND [address] [place] [address] Medication Refill Social History Tobacco Use Types [...] Industry Job Start Date Job End Date [employer] Not on file Not on file Not [...] 11/12/2024 9:00 AM CDT [facility] [address] [place] [address] Amber Aldrich APRN, NURSE WOUND #[address] [place] [phone] Discharge Disposition: Discharged to home or Selfcare 11/12/2024 9:15 AM CDT Appointment [facility] Nuclear Medicine [address] [place] [address] Amber Aldrich APRN, NURSE WOUND #[address] [place] [address] Discharge Disposition: Discharged to home or Selfcare 11/12/2024 9:30 AM CDT Hospital Encounter [facility] Cardiology Stress [address] [place] [address] Amber Aldrich APRN, NURSE WOUND [address] [place] [address] 11/12/2024 10:00 AM CDT Appointment [facility] Nuclear Medicine [address] [place] [address] Amber Aldrich APRN, NURSE WOUND [address] [place] [address] Discharge Disposition: Discharged to home or Selfcare 11/17/2024 2:00 PM CDT Telemedicine [facility] [address] [place] [address] Alize Acosta, SLATE CUTTER, NURSE WOUND [address] [place] [address] 11/18/2024 3:45 PM CDT Office Visit [facility] Endocrinology - [place] [address] [place] [address] David Salmon MD #[address] [address] 01/03/2025 11:30 AM CDT Office Visit [facility] Neurology - [place] [address] [place] [address] Rachelle Nava, SLATE CUTTER, INTRANET SPECIALIST [address] [place] [address] 03/04/2025 3:10 PM CONCRETE LAYER Lab [facility] Primary [facility] [address] [place] [address] [facility] 03/04/2025 3:30 PM CONCRETE LAYER Office Visit [facility] Primary [facility] [place] [address] [place] [address] Tani Biggs [facility] [address] [place] [address] 03/17/2025 1:30 PM CONCRETE LAYER Lab [facility] - Cancer Center Oncology Services [address] [place] [address] Melony Asif PAC [address] [place] [address] Discharge Disposition: Discharged to home or Selfcare 03/25/2025 1:20 PM CONCRETE LAYER Office Visit [facility] Cancer Center Oncology Services [address] [place] [address] Melony Asif Stacey, [facility] [address] [place] [address] Discharge Disposition: Discharged to home or Selfcare 04/25/2025 2:00 PM CONCRETE LAYER Office Visit [facility] Cardiology - [place] [address] [place] [address] Laisha Griffin, DO [address] [address] 07/18/2025 1:00 PM CDT Office Visit [facility] Pulmonology & Sleep Medicine [facility] #[address] [place] [address] Dom Quiñonez MD [address] [place] [address] documented as of this encounter Goals Goal [...] as recommended. Depression Depression Improving( 2:27 PM CONCRETE LAYER) No Breanne Saldana LCSW Note: Goal/Objective: Decrease [...] 19 04/18/2024 04/18/2024 04/18/2024 10:4 7 PM CONCRETE LAYER Respiratory Rule-Out 05/06/2024 05/06/2024 025 9:20 AM CONCRETE LAYER COVID - 19 05/06/2024 05/06/2024 05/06/2024 9:19 AM CONCRETE LAYER Assessment Noted Time PHQ-9 Depression Total Score: 24 022 3:31 PM CONCRETE LAYER documented as of this encounter Care Teams Yard Engineer Relationship Specialty Start Date End Date Emilia Tang MD [address] [place] [address] PCP - General Family Medicine 06/07/22 03/25/23 Rebeka Trinidad MD [address] [place] [address] PCP - General Family Medicine 03/26/23 03/29/24 Lorri Leo APRN, NURSE WOUND [address] [place] [address] PCP - General Certified Nurse Practitioner 03/30/24 04/20/24 Rebeka Trinidad MD [address] [place] [address] PCP - General Family Medicine 04/21/24 04/21/24 Lorri Leo APRN, NURSE WOUND [address] [place] [address] PCP - General Certified Nurse Practitioner 04/22/24 05/30/24 Tani Biggs, [facility] [address] [place] [address] PCP - General Physician Csm Consultant 05/31/24 Phil Jacobo MD [address] [place] [address] Consulting Physician Neurology 03/07/21 Rajiv Mccormack, JEWELRY SALES ASSOCIATE #[address] [place] [address] Nurse Practitioner Gastroenterology 03/07/21 Alize Acosta APRN, NURSE WOUND [address] [place] [address] Virtual [facility] (VAC) GASOLINE ENGINE INSPECTOR Advanced Practice Nurse 08/30/21 Dayo Chaney MD [address] [place] [address] [facility] Cardiovascular Disease - Cardiology 09/20/21 02/12/24 Juanita Mercado, [place] Registered Nurse Cardiology 12/24/21 02/12/24 David Salmon MD #[address] [address] Consulting Physician Endocrinology 01/15/22 Maurilio Farley MD #[address] [address] Consulting Physician Colon and Rectal Surgery 09/20/22 PhysicianCandida MD [address] [place] [address] Family Medicine 01/25/22 03/18/23 Dom Quiñonez MD #[address] [place] [address] Consulting Physician Pulmonary Disease 11/19/21 Rachelle Nava APRN, INTRANET SPECIALIST #[address] [place] [address] Nurse Practitioner Advanced Practice Nurse 07/19/22 Irais Naylor APRN, NURSE WOUND #[address] [address] Nurse Practitioner Cardiology 06/27/23 07/29/24 Sharri Gaspar MD [address] [address] Consulting Physician Cardiology 04/26/24 Amber Aldrich APRN, NURSE WOUND #[address] [place] [address] Nurse Practitioner Cardiology 07/30/24 documented as of this encounter
--- OUTSIDE RECORDS SUMMARY | 2024-11-11 14:45 | XMS_ITS | Encounter Summary ---
Author Organization [facility] Address [address] [place] [address] Phone Care Team Providers Care Job Analysis Manager Name Role Phone Phil Jacobo MD Unavailable [phone] Rajiv Mccormack NP Unavailable Unavailable Alize Acosta APRN, SHUTTLE CAR OPERATOR Unavailable [phone] Dayo Chaney MD Unavailable Juanita Hauser RN Unavailable UnavailDavid Alexandre MD Unavailable Maurilio Farley MD Unavailable Rebeka Trinidad MD Primary Care Provider + [phone] Dom Quiñonez MD Unavailable Rachelle Nava NETBACKUP ADMINISTRATOR, KILN LABOURER Unavailable + [phone] Irais Naylor NETBACKUP ADMINISTRATOR, SHUTTLE CAR OPERATOR Unavailable + [phone] Lorri Leo NETBACKUP ADMINISTRATOR, SHUTTLE CAR OPERATOR Primary Care Provider + [phone] Rebeka Trinidad MD Primary Care Provider + [phone] Lorri Leo NETBACKUP ADMINISTRATOR, SHUTTLE CAR OPERATOR Primary Care Provider + [phone] Sharri Gaspar MD Unavailable Tani Biggs [facility] Primary Care Provider [phone] Amber Aldrich APRN, CNP Unavailable Reason for Visit * Reason Comments Medication Refill Encounter Details Date Type Department Care Team (Late st Contact Info) Description 06/20/2023 Refill [facility] - Endocrinology - [place] [address] [place] [address] David Salmon MD #[address] [address] Medication Refill Social History Tobacco Use Types Packs/Day Years Used Date Smoking Tobacco: Former Cigarettes 1 37.1 1 985 - 04/12/2021 Smokeless Tobacco: Never Alcohol Use Standard Drinks/Week Comments Not Currently 0 (1 standard drink = 0.6 oz pur e alcohol) last drank [address] [facility] Utilities Answer Date Recorded In the past 12 months has [employer] electric, gas, oil, or water company threatened [...] Never 03/24/2023 How often do you attend [facility] or congregational services? More than 4 times per year 03/24/2023 Do you belong to any clubs o r organizations such as congregational groups, unions, fraternal or athletic groups, or [...] Total Score - Questions 1-9 18 10/10 [facility] - Occupational Stress Questionnaire Answer [...] place to sleep or slept in a longterm (including now)? 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 documented in this encounter Plan of Treatment Upcoming Encounters Date Type Department Care Team (Latest Contact Info) Description 11/12/2024 9:00 AM CDT [facility] Nuclear Medicine [address] [place] [address] Amber Aldrich APRN, SHUTTLE CAR OPERATOR [address] [place] [address] Discharge Disposition: Discharged to home or Selfcare 11/12/2024 9:15 AM CDT Appointment [facility] Nuclear Medicine [address] [place] [address] Amber Aldrich APRN, SHUTTLE CAR OPERATOR [address] [place] [address] Discharge Disposition: Discharged to home or Selfcare 11/12/2024 9:30 AM CDT Hospital Encounter [facility] Cardiology Stress [address] [place] [address] Amber Aldrich APRN, SHUTTLE CAR OPERATOR [address] [place] [address] 11/12/2024 10:00 AM CDT Appointment [facility] Nuclear Medicine [address] [place] [address] Amber Aldrich NETBACKUP ADMINISTRATOR, SHUTTLE CAR OPERATOR [address] [place] [address] Discharge Disposition: Discharged to home or Selfcare 11/17/2024 2:00 PM CDT Telemedicine [facility] [address] [place] [address] Alize Acosta, NETBACKUP ADMINISTRATOR, SHUTTLE CAR OPERATOR [address] [place] [address] 11/18/2024 3:45 PM CDT Office Visit [facility] - Endocrinology - [place] [address] [place] [address] David Salmon MD #[address] [address] 01/03/2025 11:30 AM CDT [facility] [place] [address] [place] [address] Rachelle Nava NETBACKUP ADMINISTRATOR, KILN LABOURER [address] [place] [address] 03/04/2025 3:10 PM PIECE JOBBER Lab [facility] Primary Care - [place] [address] [place] [address] [facility], [facility] 03/04/2025 3:30 PM PIECE JOBBER [facility] [place] [address] Tani Biggs, [facility] [address] [place] [address] 03/17/2025 1:30 PM PIECE JOBBER Lab [facility] Oncology Services [address] [place] [address] Melony Asif [facility], [facility] [address] [place] [address] Discharge Disposition: Discharged to home or Selfcare 03/25/2025 1:20 PM PIECE JOBBER Office Visit [facility] Oncology Services [address] [place] [address] Melony Asif [facility], [facility] [address] [place] [address] Discharge Disposition: Discharged to home or Selfcare 04/25/2025 2:00 PM PIECE JOBBER Office Visit [facility] - Cardiology - [place] [address] [place] [address] Laisha Griffin, DO [address] [address] 07/18/2025 1:00 PM CDT Office Visit [facility] - Pulmonology & Sleep Medicine [facility] #[address] [place] [address] Dom Quiñonez MD [address] [place] [address] documented as of this encounter Goals Goal Patient Goal Type Associated Problems Recent Progress Patient-Stated? Author ACTIVITY Activity No change(08/08 2:42 PM CDT) Yes Maritza Vanegas, RN Note: Bonny will walk five days a week. Goal Reviewed with: Bonny Readiness to change: Department associated with goal: [facility] Steps to achieve goal: Walking 5 days a week I want to be able to be around people and feel less depressed. Behavioral Health Worsening(0 09/22/2023 3:12 PM CDT) Yes Hilda Tinajero [facility] Note: Goal/Objective: Decrease symptoms of depression and anxiety. Anticipated Time Frame for Goal Completion: 3 months Goal Reviewed with: patient Readiness to change: Thinking about making a change Department associated with goal: [facility] Steps to achieve [...] diet Depression Depression Improving(0 03/15/2022 2:27 PM PIECE JOBBER) No Breanne Saldana, LENDING MANAGER Note: Goal/Objective: Decrease symptoms of depression associated [...] 19 04/18/2024 04/18/2024 04/18/2024 10:4 7 PM PIECE JOBBER Respiratory Rule-Out 05/06/2024 05/06/2024 025 9:20 AM PIECE JOBBER COVID - 05/06/2024 05/06/2024 05/06/2024 9:19 AM PIECE JOBBER Assessment Noted Time PHQ-9 Depression Total Score: 18 023 9:24 AM CDT documented as of this encounter Care Teams Job Analysis Manager Relationship Specialty Start Date End Date Rebeka Trinidad MD [address] [place] [address] PCP - General Family Medicine 03/26/23 03/29/24 Lorri Leo APRN, SHUTTLE CAR OPERATOR [address] [place] [address] PCP - General Certified Nurse Practitioner 03/30/24 04/20/24 Rebeka Trinidad MD [address] [place] [address] PCP - General Family Medicine 04/21/24 04/21/24 Lorri Leo APRN, SHUTTLE CAR OPERATOR [address] [place] [address] PCP - General Certified Nurse Practitioner 04/22/24 05/30/24 Tani Biggs, PAC [address] [place] [address] PCP - General Physician Double Needle Stitcher 05/31/24 Pihl Jacobo MD [address] [place] [address] Consulting Physician Neurology 03/07/21 Rajiv Mccormack, KELI [address] [place] [address] Nurse Practitioner Gastroenterology 03/07/21 lAize Acosta, NETBACKUP ADMINISTRATOR, SHUTTLE CAR OPERATOR [address] [place] [address] Virtual [facility] (VAC) CUFFER Advanced Practice Nurse 08/30/21 Dayo Chaney MD [address] [place] [address] Specification Consultant Cardiovascular Disease - Cardiology 09/20/21 02/12/24 Juanita Mercado RN [place] Registered Nurse Cardiology 12/24/21 02/12/24 David Salmon MD #[address] [address] Consulting Physician Endocrinology 01/15/22 Maurilio Farley MD #[address] [phone] Consulting Physician Colon and Rectal Surgery 09/20/22 Dom Quiñonez MD #[address] [place] [address] Consulting Physician Pulmonary Disease 11/19/21 Rachelle Nava APRN, KILN LABOURER [address] [place] [address] Nurse Practitioner Advanced Practice Nurse 07/19/22 Irais Naylor APRN, SHUTTLE CAR OPERATOR #2 [facility] [address] [place] [address] Nurse Practitioner Cardiology 06/27/23 07/29/24 Sharri Gaspar MD 2 [facility] [place] [address] [place] [address] Consulting Physician Cardiology 04/26/24 Amber Aldrich APRN, SHUTTLE CAR OPERATOR [address] [place] [address] Nurse Practitioner Cardiology 07/30/24 documented as of this encounter
--- OUTSIDE RECORDS SUMMARY | 2024-11-11 14:45 | XMS_ITS | Encounter Summary ---
Author Organization [facility] Address [address] [place] [address] Phone Care Team Providers Care School Library Media Program Director Name Role Phone Jackeline Dimas BIOLOGY ADJUNCT INSTRUCTOR, ETCH OPERATOR SEMICONDUCTOR WAFERS Primary Care Provider Fiona Martinez LETTER SORTING MACHINE OPERATOR Unavailable Unavailab Phil Ellis MD Unavailable [phone] Rajiv Mccormack NP Unavailable Unavailable Renita Quezada RN Unavailable Unavailable Alize Acosta BIOLOGY ADJUNCT INSTRUCTOR, ETCH OPERATOR SEMICONDUCTOR WAFERS Unavailable +[phone] Dayo Chaney MD Unavailable Juanita Hauser RN Unavailable Unavaila David Martinez MD Unavailable Emilia Tang MD Primary Care Provider [phone] Maurilio Farley MD Unavailable Candida Turner MD Unavailable Rebeka Trinidad MD Primary Care Provider + [phone] Dom Quiñonez MD Unavailable Rachelle Nava BIOLOGY ADJUNCT INSTRUCTOR, LABOR SPECIALIST Unavailable + [phone] Irais Naylor BIOLOGY ADJUNCT INSTRUCTOR, ETCH OPERATOR SEMICONDUCTOR WAFERS Unavailable [phone] AhmetAngélica morrismando Littlejohn BIOLOGY ADJUNCT INSTRUCTOR, ETCH OPERATOR SEMICONDUCTOR WAFERS Primary Care Provider [phone] Rebeka Trinidad MD Primary Care Provider [phone] Lorri Leo BIOLOGY ADJUNCT INSTRUCTOR, ETCH OPERATOR SEMICONDUCTOR WAFERS Primary Care Provider [phone] Sharri Gaspar MD Unavailable Tani Biggs [facility] Primary Care Provider + [phone] Amber Aldrich BIOLOGY ADJUNCT INSTRUCTOR, ETCH OPERATOR SEMICONDUCTOR WAFERS Unavailable Reason for Visit * Reason Comments Medication Refill Encounter Details Date Type Department Care Team (Late st Contact Info) Description 09/25/2020 Refill 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 Nuclear Medicine [address] [place] [address] Amber Aldrich APRN, ETCH OPERATOR SEMICONDUCTOR WAFERS [address] [place] [address] Discharge Disposition: Discharged to home or Selfcare 11/12/2024 9:15 AM CDT Appointment [facility] Nuclear Medicine [address] [place] [address] Amber Aldrich APRN, ETCH OPERATOR SEMICONDUCTOR WAFERS [address] [place] [address] Discharge Disposition: Discharged to home or Selfcare 11/12/2024 9:30 AM CDT Hospital Encounter [facility] Cardiology Stress [address] [place] [address] Amber Aldrich APRN, ETCH OPERATOR SEMICONDUCTOR WAFERS [address] [place] [address] 11/12/2024 10:00 AM CDT Appointment [facility] Nuclear Medicine [address] [place] [address] Amber Aldrich APRN, ETCH OPERATOR SEMICONDUCTOR WAFERS [address] [place] [address] Discharge Disposition: Discharged to home or Selfcare 11/17/2024 2:00 PM CDT Telemedicine [facility] [address] [place] [address] Alize Acosta, BIOLOGY ADJUNCT INSTRUCTOR, ETCH OPERATOR SEMICONDUCTOR WAFERS [address] [place] [address] 11/18/2024 3:45 PM CDT Office Visit [facility] Endocrinology - [place] [address] [place] [address] David Salmon MD #[address] [address] 01/03/2025 11:30 AM CDT Office Visit [facility] Neurology - [place] [address] [place] [address] Rachelle Nava, BIOLOGY ADJUNCT INSTRUCTOR, LABOR SPECIALIST [address] [place] [address] 03/04/2025 3:10 PM SENIOR UI DESIGNER Lab [facility] Primary [place] [facility] - [place] [address] [place] [address] [facility] 03/04/2025 3:30 PM SENIOR UI DESIGNER Office Visit [facility] Primary [place] [facility] - [place] [address] [place] [address] Tani Biggs [facility] [address] [place] [address] 03/17/2025 1:30 PM SENIOR UI DESIGNER Lab [facility] - Cancer Center Oncology Services [address] [place] [address] Mleony Asif PAC [address] [place] [address] Discharge Disposition: Discharged to home or Selfcare 03/25/2025 1:20 PM SENIOR UI DESIGNER [facility] [address] [place] [address] Melony Asif Stacey, [facility] [address] [place] [address] Discharge Disposition: Discharged to home or Selfcare 04/25/2025 2:00 PM SENIOR UI DESIGNER Office Visit [facility] - Cardiology - [place] [address] [place] [address] Laisha Griffin, DO [address] [address] 07/18/2025 1:00 PM CDT Office Visit [facility] - Pulmonology & Sleep Medicine [facility] [address] [place] [address] Dom Quiñonez MD [address] [place] [address] documented as of this encounter Visit Diagnoses Diagnosis Hypertension, essential Unspecified essential hypertension documented in this encounter Additional Health Concerns Infection Onset Date Last Indicated Resolved Time COVID - 19 01/08/2021 01/08/2021 01/28/2021 12:1 6 AM SENIOR UI DESIGNER COVID - 19 03/12/2021 03/12/2021 04/01/2021 12:1 6 AM SENIOR UI DESIGNER COVID - 19 12/15/2021 12/15/2021 12/15/2021 7:26 PM CDT COVID - 19 Confirmed 12/15/2021 12/15/2021 022 12:16 AM CDT COVID - 19 04/18/2024 04/18/2024 04/18/2024 10:4 7 PM SENIOR UI DESIGNER Respiratory Rule-Out 05/06/2024 05/06/2024 025 9:20 AM SENIOR UI DESIGNER COVID - 19 05/06/2024 05/06/2024 05/06/2024 9:19 AM SENIOR UI DESIGNER Assessment Noted Time PHQ-9 Depression Total Score: 0 09/01/19 20 11:58 AM CDT documented as of this encounter Care Teams School Library Media Program Director Relationship Specialty Start Date End Date Jackeline Dimas APRN, ETCH OPERATOR SEMICONDUCTOR WAFERS [address] [place] [address] PCP - General Advanced Practice Nurse 07/31/17 Emilia Tang MD [address] [place] [address] PCP - General Family Medicine 06/07/22 03/25/23 Rebeka Trinidad MD [address] [place] [address] PCP - General Family Medicine 03/26/23 03/29/24 Lorri Leo APRN, ETCH OPERATOR SEMICONDUCTOR WAFERS [address] [place] [address] PCP - General Certified Nurse Practitioner 03/30/24 04/20/24 Rebeka Trinidad MD [address] [place] [address] PCP - General Family Medicine 04/21/24 04/21/24 Lorri Leo APRN, ETCH OPERATOR SEMICONDUCTOR WAFERS [address] [place] [address] PCP - General Certified Nurse Practitioner 04/22/24 05/30/24 Tani Biggs, PAC [address] [place] [address] PCP - General Physician Solar Mechanical Engineer 05/31/24 Fiona Martinez, MARSHA [place] Solar Mechanical Engineer 03/01/21 08/23/21 Phil Jacobo MD [address] [place] [address] Consulting Physician Neurology 03/07/21 Rajiv Mccormack, KELI [address] [place] [address] Nurse Practitioner Gastroenterology 03/07/21 Renita Quezada, [place] Solar Mechanical Engineer 05/09/21 08/23/21 Alize Acosta, BIOLOGY ADJUNCT INSTRUCTOR, ETCH OPERATOR SEMICONDUCTOR WAFERS [facility] [place] [address] Virtual Advanced Care (VAC) EPIC ANALYST Advanced Practice Nurse 08/30/21 Dayo Chaney MD [address] [place] [address] Financial Service Professional Cardiovascular Disease - Cardiology 09/20/21 02/12/24 Juanita Mercado RN [place] Registered Nurse Cardiology 12/24/21 02/12/24 David Salmon MD #[address] [phone] Consulting Physician Endocrinology 01/15/22 Maurilio Farley MD #[address] [address] Consulting Physician Colon and Rectal Surgery 09/20/22 Physician, Candida Davis MD [address] [place], [place] [address] Family Medicine 01/25/22 03/18/23 Dom Quiñonez MD [address] [place] [address] Consulting Physician Pulmonary Disease 11/19/21 Rachelle Nava, BIOLOGY ADJUNCT INSTRUCTOR, LABOR SPECIALIST [address] [place] [address] Nurse Practitioner Advanced Practice Nurse 07/19/22 Irais Naylor, BIOLOGY ADJUNCT INSTRUCTOR, ETCH OPERATOR SEMICONDUCTOR WAFERS [address]2 [facility] [address] [address] Nurse Practitioner Cardiology 06/27/23 07/29/24 Sharri Gaspar MD [address] [address] Consulting Physician Cardiology 04/26/24 Amber Aldrich, BIOLOGY ADJUNCT INSTRUCTOR, ETCH OPERATOR SEMICONDUCTOR WAFERS [address] [place] [address] Nurse Practitioner Cardiology 07/30/24 documented as of this encounter
--- OUTSIDE RECORDS SUMMARY | 2024-11-11 14:45 | XMS_ITS | Encounter Summary ---
Author Organization [facility] Address [address] [place] [address] Phone Care Team Providers Care Broadband Engineer Name Role Phone Phil Jacobo MD Unavailable [phone] Rajiv Mccormack NP Unavailable Unavailable Alize Acosta APRN, CARBON GRINDER Unavailable Dayo Chaney MD Unavailable Juanita Hauser RN Unavailable UnavailDavid Alexandre MD Unavailable Maurilio Farley MD Unavailable Rebeka Trinidad MD Primary Care Provider + [phone] Dom Quiñonez MD Unavailable Rachelle Nava SKIDDER, FURNACE OPERATOR Unavailable + [phone] Irais Naylor SKIDDER, CARBON GRINDER Unavailable + [phone] Lorri Leo SKIDDER, CARBON GRINDER Primary Care Provider + [phone] Rebeka Trinidad MD Primary Care Provider + [phone] Lorri Leo SKIDDER, CARBON GRINDER Primary Care Provider + [phone] Sharri Gaspar MD Unavailable Tani Biggs PAC Primary Care Provider [phone] Amber Aldrich APRN, CARBON GRINDER Unavailable Reason for Visit * Reason Comments Medication Refill Encounter Details Date Type Department Care Team (Late st Contact Info) Description 07/07/2023 Refill [facility] - Neurology [facility] [address] [place] [address] Rachelle Nava, RUSSELL, FURNACE OPERATOR [address] [place] [address] Medication Refill Social History Tobacco Use Types Packs/Day Years Used Date Smoking Tobacco: Former Cigarettes 1 37.1 1 985 - 04/12/2021 Smokeless Tobacco: Never Alcohol Use Standard Drinks/Week Comments Not Currently 0 (1 standard drink = 0.6 oz pur e alcohol) last drank 2020 [facility] Utilities Answer Date Recorded In the past 12 months has [employer] electric, gas, oil, or water company threatened [...] Never 03/24/2023 How often do you attend [facility] or catholic services? More than 4 times per year 03/24/2023 Do you belong to any clubs o r organizations such as temple groups, unions, fraternal or athletic groups, or [...] Total Score - Questions 1-9 18 08/ [facility] - Occupational Stress Questionnaire Answer [...] a long term (including now)? 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 Not [...] Dept 06/19/23 Office Visit Phil Jacobo MD [facility] Neurology [facility] 06/04/23 Office Visit Rebeka Trinidad MD [facility] 05/09/23 Office Visit Rebeka Trinidad MD [facility] 03/26/23 Office Visit Rebeka Trinidad MD [facility] 03/19/23 Office Visit Rachelle Nava APRN, FURNACE OPERATOR [facility] Neurology [facility] 02/06/23 Office Visit Emilia Tang MD [facility] 11/06/22 Office Visit Emilia Tang MD [facility] 10/10/22 Office Visit Emilia Tang MD [facility] 09/16/22 Office Visit Rachelle Nava APRN, FURNACE OPERATOR [facility] Neurology [facility] 09/06/22 [facility] Showing recent visits within past 365 days and meeting all other requirements Future Appointments No visits were found meeting these conditions. Showing future appointments within next 90 days and meeting all other requirements documented in this encounter Plan of Treatment Upcoming Encounters Date Type Department Care Team (Latest Contact Info) Description 11/12/2024 9:00 AM CDT [facility] Nuclear Medicine [address] [place] [address] Amber Aldrich APRN, CARBON GRINDER [address] [place] [address] Discharge Disposition: Discharged to home or Selfcare 11/12/2024 9:15 AM CDT Appointment [facility] Nuclear Medicine [address] [place] [address] Amber Aldrich APRN, CARBON GRINDER [address] [place] [address] Discharge Disposition: Discharged to home or Selfcare 11/12/2024 9:30 AM CDT Hospital Encounter [facility] Cardiology Stress [address] [place] [address] Amber Aldrich APRN, CARBON GRINDER [address] [place] [address] 11/12/2024 10:00 AM CDT Appointment [facility] Nuclear Medicine [address] [place] [address] Amber Aldrich APRN, CARBON GRINDER [address] [place] [address] Discharge Disposition: Discharged to home or Selfcare 11/17/2024 2:00 PM CDT Telemedicine [facility] [address] [place] [address] Alize Acosta, SKIDDER, CARBON GRINDER [address] [place] [address] 11/18/2024 3:45 PM CDT Office Visit [facility] Endocrinology - [place] [address] [place] [address] David Salmon MD #[address] [address] 01/03/2025 11:30 AM CDT Office Visit [facility] Neurology - [place] [address] [place] [address] Rachelle Nava, SKIDDER, FURNACE OPERATOR [address] [place] [address] 03/04/2025 3:10 PM FINGERPRINT CLASSIFIER Lab [facility] Primary [facility] - [place] [address] [place] [address] [facility] 03/04/2025 3:30 PM FINGERPRINT CLASSIFIER Office Visit [facility] Primary [facility] - [place] [address] [place] [address] Tani Biggs PAC [address] [place] [address] 03/17/2025 1:30 PM FINGERPRINT CLASSIFIER Lab [facility] - Cancer Center Oncology Services [address] [place] [address] Melony Asif PAC [address] [place] [address] Discharge Disposition: Discharged to home or Selfcare 03/25/2025 1:20 PM FINGERPRINT CLASSIFIER Office Visit [facility] Cancer Center Oncology Services [address] [place] [address] Melony Asif Stacey, PAC [address] [place] [address] Discharge Disposition: Discharged to home or Selfcare 04/25/2025 2:00 PM FINGERPRINT CLASSIFIER Office Visit [facility] Cardiology - [place] [address] [place] [address] Laisha Griffin, DO [address] [address] 07/18/2025 1:00 PM CDT Office Visit [facility] Pulmonology & Sleep Medicine - [place] [address] [place] [address] Dom Quiñonez MD #[address] [place] [address] documented as of this encounter Goals Goal [...] 09/22/2023 3:12 PM CDT) Yes Hilda Tinajero PBX INSPECTOR Note: Goal/Objective: Decrease symptoms of depression and anxiety. Anticipated Time Frame for Goal Completion: 3 months Goal Reviewed with: patient Readiness to change: Thinking about making a change Department associated with goal: [facility] Steps to achieve goal: [...] diet Depression Depression Improving(0 03/15/2022 2:27 PM FINGERPRINT CLASSIFIER) No Breanne Saldana LCSW Note: Goal/Objective: Decrease [...] 19 04/18/2024 04/18/2024 04/18/2024 10:4 7 PM FINGERPRINT CLASSIFIER Respiratory Rule-Out 05/06/2024 05/06/2024 025 9:20 AM FINGERPRINT CLASSIFIER COVID - 05/06/2024 05/06/2024 05/06/2024 9:19 AM FINGERPRINT CLASSIFIER Assessment Noted Time PHQ-9 Depression Total Score: 18 023 9:24 AM CDT documented as of this encounter Care Teams Broadband Engineer Relationship Specialty Start Date End Date Rebeka Trinidad MD [address] [place] [address] PCP - General Family Medicine 03/26/23 03/29/24 Lorri Leo APRN, CARBON GRINDER [address] [place] [address] PCP - General Certified Nurse Practitioner 03/30/24 04/20/24 Rebeka Trinidad MD [address] [place] [address] PCP - General Family Medicine 04/21/24 04/21/24 Lorri Leo, SKIDDER, CARBON GRINDER [address] [place] [address] PCP - General Certified Nurse Practitioner 04/22/24 05/30/24 Tani Biggs PAC [address] [place] [address] PCP - General Physician Boat Outfitter 05/31/24 Phil Jacobo MD [address] [place] [address] Consulting Physician Neurology 03/07/21 Rajiv Mccormack, KELI [address] [place] [address] Nurse Practitioner Gastroenterology 03/07/21 Alize Acosta APRN, CARBON GRINDER [address] [place], [place] [address] Virtual Advanced Care (VAC) SALES DRIVER Advanced Practice Nurse 08/30/21 Dayo Chaney MD [address] [place] [address] Frame Cleaner Cardiovascular Disease - Cardiology 09/20/21 02/12/24 Juanita Mercado RN [place] Registered Nurse Cardiology 12/24/21 02/12/24 David Salmon MD #[address] [address] Consulting Physician Endocrinology 01/15/22 Maurilio Farley MD #[address] [address] Consulting Physician Colon and Rectal Surgery 09/20/22 Dom Quiñonez MD #[address] [place] [address] Consulting Physician Pulmonary Disease 11/19/21 Rachelle Nava APRN, FURNACE OPERATOR [address] [place] [address] Nurse Practitioner Advanced Practice Nurse 07/19/22 Irais Naylor APRN, CARBON GRINDER #[address] [address] Nurse Practitioner Cardiology 06/27/23 07/29/24 Sharri Gaspar MD [facility] [address] [place] [address] Consulting Physician Cardiology 04/26/24 Amber Aldrich APRN, CARBON GRINDER [address] [place] [address] Nurse Practitioner Cardiology 07/30/24 documented as of this encounter
--- OUTSIDE RECORDS SUMMARY | 2024-11-11 14:45 | XMS_ITS | Encounter Summary ---
Author Organization [facility] Address [address] [place] [address] Phone Care Team Providers Care Installation Drafter Name Role Phone Jackeline Dimas BAT PERSON, GRADE FOREMAN Primary Care Provider Phil Jacobo MD Unavailable [phone] Rajiv Mccormack NP Unavailable Unavailable Alize Acosta BAT PERSON, GRADE FOREMAN Unavailable +[phone] Dayo Chaney MD Unavailable Juanita Hauser RN Unavailable UnavailDavid Alexandre MD Unavailable Emilia Tang MD Primary Care Provider [phone] Maurilio Farley MD Unavailable Physician, Candida Davis MD Unavailable Rebeka Trinidad MD Primary Care Provider + [phone] Dom Quiñonez MD Unavailable Rachelle Nava BAT PERSON, AQUATICS MANAGER Unavailable + [phone] Irais Naylor BAT PERSON, GRADE FOREMAN Unavailable + [phone] Lorri Leo BAT PERSON, GRADE FOREMAN Primary Care Provider [phone] Rebeka Trinidad MD Primary Care Provider + [phone] Lorri Leo BAT PERSON, GRADE FOREMAN Primary Care Provider + [phone] Sharri Gaspar MD Unavailable Tani Biggs [facility] Primary Care Provider + [phone] Amber Aldrich BAT PERSON, GRADE FOREMAN Unavailable Reason for Visit * Reason Comments Medication Refill Encounter Details Date Type Department Care Team (Late st Contact Info) Description 05/22/2022 Refill [facility] [address] [place] [phone] Jackeline Dimas, BAT PERSON, GRADE FOREMAN [address] [place] [address] Medication Refill Social History Tobacco [...] 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 Unable to assess 05/01/2022 2:58 PM CABLE ARMORER OPERATOR documented as of this encounter Miscellaneous [...] Provider Dept 05/21/22 Appointment Alize Acosta APRN, CNP [facility] 05/20/22 Appointment VIRTUAL ADVANCED CARE NURSE [facility] 05/13/22 Appointment VIRTUAL ADVANCED CARE NURSE [facility] 05/06/22 Appointment VIRTUAL ADVANCED CARE NURSE [facility] 05/01/22 Appointment Alize Acosta APRN, CNP [facility] 04/29/22 Appointment Alize Acosta APRN, CNP [facility] 04/29/22 Appointment VIRTUAL [...] [facility]ment [facility] Nuclear Medicine [address] [place] [address] Amber Aldrich APRN, GRADE FOREMAN [address] [place] [address] Discharge Disposition: Discharged to home or Selfcare 11/12/2024 9:15 AM CDT [facility]ointment [facility] Nuclear Medicine [address] [place] [phone] Amber Aldrich APRN, GRADE FOREMAN [address] [place] [address] Discharge Disposition: Discharged to home or Selfcare 11/12/2024 9:30 AM CDT Hospital [facility] Cardiology Stress [address] [place] [phone] Amber Aldrich APRN, GRADE FOREMAN [address] [place] [address] 11/12/2024 10:00 AM CDT [facility]ment [facility] Nuclear Medicine [address] [place] [address] Amber Aldrich APRN, GRADE FOREMAN [address] [place] [address] Discharge Disposition: Discharged to home or Selfcare 11/17/2024 2:00 PM CDT [facility]medicine [facility] [address] [place] [phone] Alize Acosta APRN, GRADE FOREMAN [address] [place] [address] 11/18/2024 3:45 PM CDT [facility] #2 [place] [phone] David Salmon MD #[address] [phone] 01/03/2025 11:30 AM CDT [facility] [place] [address]2 [place] [address] Rachelle Nava, BAT PERSON, AQUATICS MANAGER [address] [place] [address] 03/04/2025 3:10 PM CABLE ARMORER OPERATOR Lab [facility] Primary Care - [place] [address] [place] [address] [facility] 03/04/2025 3:30 PM CABLE ARMORER OPERATOR Office Visit [facility] Primary Care - [place] [address] [place] [phone] Tani Biggs, [facility] [address] [place] [address] 03/17/2025 1:30 PM CABLE ARMORER OPERATOR Lab [facility] Oncology Services [address] [place] [phone] Melony Asif, PAC [address] [place] [address] Discharge Disposition: Discharged to home or Selfcare 03/25/2025 1:20 PM CABLE ARMORER OPERATOR [facility] [address] [place] [address] Melony Asif, PAC [address] [place] [address] Discharge Disposition: Discharged to home or Selfcare 04/25/2025 2:00 PM CABLE ARMORER OPERATOR Office Visit [facility] Medical [facility] - Cardiology - [place] [address] [place] [phone] Laisha Griffin, DO 2 [facility] [address] [id number] 07/18/2025 1:00 PM CDT [facility] - [facility]monology [facility] [place] #2 [facility] [place] [address] Dom Quiñonez MD #[address] [place] [address] documented as of this encounter [...] as recommended. Depression Depression Improving( 2:27 PM CABLE ARMORER OPERATOR) No Breanne Saldana LCSW Note: Goal/Objective: [...] 19 04/18/2024 04/18/2024 04/18/2024 10:4 7 PM CABLE ARMORER OPERATOR Respiratory Rule-Out 05/06/2024 05/06/2024 025 9:20 AM CABLE ARMORER OPERATOR COVID - 19 05/06/2024 05/06/2024 05/06/2024 9:19 AM CABLE ARMORER OPERATOR Assessment Noted Time PHQ-9 Depression Total Score: 24 022 3:31 PM CABLE ARMORER OPERATOR documented as of this encounter Care Teams Installation Drafter Relationship Specialty Start Date End Date Jackeline Dimas, RUSSELL, GRADE FOREMAN [address] [place] [address] PCP - General Advanced Practice Nurse 07/31/17 Emilia Tang MD [address] [place] [address] PCP - General Family Medicine 06/07/22 03/25/23 Rebeka Trinidad MD [address] [place] [address] PCP - General Family Medicine 03/26/23 03/29/24 Lorri Leo, BAT PERSON, GRADE FOREMAN [address] [place], [place] [phone] PCP - General Certified Nurse Practitioner 03/30/24 04/20/24 Rebeka Trinidad MD [address] [place], [place] [phone] PCP - General Family Medicine 04/21/24 04/21/24 Lorri Leo, BAT PERSON, GRADE FOREMAN [address] [place] [address] PCP - General Certified Nurse Practitioner 04/22/24 05/30/24 Tani Biggs PAC [address] [place] [address] PCP - General Physician Bricklayer Tender 05/31/24 Phil Jacobo MD [address] [place] [address] Consulting Physician Neurology 03/07/21 Rajiv Mccormack, WASHING MACHINE STRIPER [address] [place] [address] Nurse Practitioner Gastroenterology 03/07/21 Alize Acosta, BAT PERSON, GRADE FOREMAN [address] [place] [place] [address] Virtual Advanced Care (VAC) SECRET CODE EXPERT Advanced Practice Nurse 08/30/21 Dayo Chaney MD [address] [place] [address] Tape Recorder Mechanic Cardiovascular Disease - Cardiology 09/20/21 02/12/24 Juanita Mercado, [place] Registered Nurse Cardiology 12/24/21 02/12/24 David Salmon MD #[address] [phone] Consulting Physician Endocrinology 01/15/22 Maurilio Farley MD #[address] [address] Consulting Physician Colon and Rectal Surgery 09/20/22 PhysicianCandida MD [address] [place] [address] Family Medicine 01/25/22 03/18/23 Dom Quiñonez MD #2 [place] [address] Consulting Physician Pulmonary Disease 11/19/21 Rachelle Nava, BAT PERSON, AQUATICS MANAGER [address] [place] [address] Nurse Practitioner Advanced Practice Nurse 07/19/22 Irais Naylor, BAT PERSON, GRADE FOREMAN #2 [facility] [address] [place] [address] Nurse Practitioner Cardiology 06/27/23 07/29/24 Sharri Gaspar MD 2 [facility] [address] [place] [address] Consulting Physician Cardiology 04/26/24 Amber Aldrich APRN, LIDA [address] [place] [address] Nurse Practitioner Cardiology 07/30/24 documented as of this encounter
--- OUTSIDE RECORDS SUMMARY | 2024-11-11 14:45 | XMS_ITS | Encounter Summary ---
Author Organization [facility] Address [address] [place] [address] Phone Care Team Providers Care Confectionery Maker Name Role Phone Phil Jacobo MD Unavailable [phone] Rajiv Mccormack NP Unavailable Unavailable Alize Acosta APRN, YOUTH SERVICES LIBRARIAN Unavailable David Salmon MD Unavailable Maurilio Farley MD Unavailable Dom Quiñonez MD Unavailable Rachelle Nava BULL GANG SUPERVISOR, HADOOP ADMIN Unavailable + [phone] Irais Naylor BULL GANG SUPERVISOR, YOUTH SERVICES LIBRARIAN Unavailable + [phone] Lorri Leo APRN, YOUTH SERVICES LIBRARIAN Primary Care Provider + [phone] Rebeka Trinidad MD Primary Care Provider + [phone] Lorri Leo BULL GANG SUPERVISOR, YOUTH SERVICES LIBRARIAN Primary Care Provider + [phone] Sharri Gaspar MD Unavailable Tani Biggs PAC Primary Care Provider [phone] Amber Aldrich BULL GANG SUPERVISOR, YOUTH SERVICES LIBRARIAN Unavailable Reason for Referral * PT/OT/ST (Routine) - Open Specialty Diagnoses / Procedures Referred By Harika t Referred To Contact Physical Therapy Diagnoses Spinal stenosis, lumbar region without neurogenic claudication Li Castañeda APN, YOUTH SERVICES LIBRARIAN [address] [place] [address] Phone: tel: fax: [facility] [address] [facility], [address] [address] Phone: tel: fax: Referral ID Status Reason Start Date Expiration Date Visits Re quested Visits Authorized [id number] Open 04/08/2024 50 10 Scheduling Instructions ESS MAINTENANCE TECHNICIAN Encounter Details Date Type Department Care Team (Latest Contact Info) Description 04/08/2024 Transcribe Orders [facility] [address] [place] [phone] Li Castañeda APN, YOUTH SERVICES LIBRARIAN [address] [place] [address] Spinal stenosis, lumbar region without neurogenic claudication (Primary Dx) Social History Tobacco Use Types Packs/Day Years Used Date Smoking Tobacco: Every Day Cigarettes 1 37.1 Started: 1984; Last attempted to quit: 04/12/2021 Smokeless Tobacco: Never Alcohol Use Standard Drinks/Week Comments Not Currently 0 (1 standard drink = 0.6 oz pur e alcohol) Last drink in 2020 [facility] Utilities Answer Date Recorded In the past 12 months has [employer], gas, oil, or water [employer] threatened to shut off services in your home? No 03/22/2024 Social Connection and Isolation Panel Answer Date Recorded In a typical week, how many times do you talk on the phone with family, friends, or neighbors? Once a week 03/22/19 How often do you get togethe r with friends or relatives? Never 03/22/2024 How often do you attend chur ch or restoration services? 1 to 4 times per year 03/22/2024 Do you belong to any clubs o r organizations such as anabaptist groups, unions, fraternal or athletic groups, or [...] Total Score - Questions 1-9 21 03/10 [facility] - Occupational Stress Questionnaire Answer Date [...] place to sleep or slept in a retirement (including now)? No 03/24/2023 Housing Stability Vital Sign Answer Jovany e Recorded In the last 12 months, was t here a time when you were not able to pay the mortgage or rent on time? Yes 03/22/2024 In the past 12 months, how m any times have you moved where you were living? 0 03/22/2024 At any time in the past 12 m [facility], were you homeless or living in a retirement (including now)? 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 Not on file Not on file documented as of this encounter Plan of Treatment Upcoming Encounters Date Type Department Care Team (Latest Contact Info) Description 11/12/2024 9:00 AM CDT Appointment [facility] Nuclear Medicine [address] [place] [phone] Amber Aldrich, BULL GANG SUPERVISOR, YOUTH SERVICES LIBRARIAN [address] [place] [phone] Discharge Disposition: Discharged to home or Selfcare 11/12/2024 9:15 AM CDT [facility] [address] [place] [address] Amber Aldrich APRN, YOUTH SERVICES LIBRARIAN [address] [place] [address] Discharge Disposition: Discharged to home or Selfcare 11/12/2024 9:30 AM CDT [facility] Card[facility] Stress [address] [place] [address] Amber Aldrich APRN, YOUTH SERVICES LIBRARIAN [address] [place] [address] 11/12/2024 10:00 AM CDT Appointment [facility] Nuclear Medicine [address] [place] [phone] Amber Aldrich APRN, YOUTH SERVICES LIBRARIAN [address] [place] [address] Discharge Disposition: Discharged to home or Selfcare 11/17/2024 2:00 PM CDT Telemedicine [facility] [address] [place] [address] Alize Acosta, BULL GANG SUPERVISOR, YOUTH SERVICES LIBRARIAN [address] [place] [address] 11/18/2024 3:45 PM CDT Office Visit [facility] #[address] [place] [address] David Salmon MD #[address] [address] 01/03/2025 11:30 AM CDT [facility] - [facility]rology - [place] #[address] [place] [address] Rachelle Nava, BULL GANG SUPERVISOR, HADOOP ADMIN [address] [place] [address] 03/04/2025 3:10 PM PROCESS MAINTENANCE TECHNICIAN Lab [facility] Primary Care - [place] [address] [place] [address] [facility], [place] [facility] 03/04/2025 3:30 PM PROCESS MAINTENANCE TECHNICIAN Office Visit [facility] Primary [facility] - [place] [address] [place] [phone] Tani Biggs, ESTRELLITA [address] [place] [address] 03/17/2025 1:30 PM PROCESS MAINTENANCE TECHNICIAN Lab [facility] Oncology Services [address] [place] [phone] Melony Asif, PAC [address] [place] [address] Discharge Disposition: Discharged to home or Selfcare 03/25/2025 1:20 PM PROCESS MAINTENANCE TECHNICIAN [facility] [address] [place] [address] Melony Asif, PAC [address] [place] [address] Discharge Disposition: Discharged to home or Selfcare 04/25/2025 2:00 PM PROCESS MAINTENANCE TECHNICIAN Office Visit [facility] - Cardiology - [place] #[address] [place] [phone] Laisha Griffin, DO [address] [address] 07/18/2025 1:00 PM CDT Office Visit [facility] - Pulmonology & [facility] #[address] [place] [address] Dom Quiñonez MD [address] [place] [address] Scheduled Referrals Name Type Priority Associated Diagnoses [...] Readiness to change: Department associated with goal: [facility] ADVANCED CARE Steps to achieve goal: Walking 5 days a week I want to be able to be around people and feel less depressed. Behavioral Health Worsening(0 09/22/2023 3:12 PM CDT) Yes Hilda Tinajero INSPECTOR MATERIAL DISPOSITION Note: Goal/Objective: Decrease symptoms of depression and anxiety. Anticipated Time Frame for Goal Completion: 3 months Goal Reviewed with: patient Readiness to change: Thinking about making a change Department associated with goal: [facility] Steps to achieve goal: [...] diet Depression Depression Improving(0 03/15/2022 2:27 PM PROCESS MAINTENANCE TECHNICIAN) No Breanne Saldana LCSW Note: Goal/Objective: Decrease [...] 19 04/18/2024 04/18/2024 04/18/2024 10:4 7 PM PROCESS MAINTENANCE TECHNICIAN Respiratory Rule-Out 05/06/2024 05/06/2024 025 9:20 AM PROCESS MAINTENANCE TECHNICIAN COVID - 19 05/06/2024 05/06/2024 05/06/2024 9:19 AM PROCESS MAINTENANCE TECHNICIAN Assessment Noted Time PHQ-9 Depression Total Score: 21 025 4:05 PM PROCESS MAINTENANCE TECHNICIAN documented as of this encounter Care Teams Confectionery Maker Relationship Specialty Start Date End Date Lorri Leo, BULL GANG SUPERVISOR, YOUTH SERVICES LIBRARIAN [address] [place] [address] PCP - General Certified Nurse Practitioner 03/30/24 04/20/24 Rebeka Trinidad MD [address] [place] [address] PCP - General Family Medicine 04/21/24 04/21/24 Lorri Leo BULL GANG SUPERVISOR, YOUTH SERVICES LIBRARIAN [address] [place] [address] PCP - General Certified Nurse Practitioner 04/22/24 05/30/24 Tani Biggs PAC [address] [place] [phone] PCP - General Physician Vendor Relationship Manager 05/31/24 Pihl Jacobo MD [address] [place] [address] Consulting Physician Neurology 03/07/21 Rajiv Mccormack, CLAY CARMAN [address] [place] [address] Nurse Practitioner Gastroenterology 03/07/21 Alize Acosta, RUSSELL, YOUTH SERVICES LIBRARIAN [address] [place] [address] [place] [address] Virtual Advanced Care (VAC) LEGISLATIVE CORRESPONDENT Advanced Practice Nurse 08/30/21 David Salmon MD #[address] [phone] Consulting Physician Endocrinology 01/15/22 Maurilio Farley MD #[address] [phone] Consulting Physician Colon and Rectal Surgery 09/20/22 Dom Quiñonez MD [address] [place] [address] Consulting Physician Pulmonary Disease 11/19/21 Rachelle Nava, BULL GANG SUPERVISOR, HADOOP ADMIN [address] [place] [address] Nurse Practitioner Advanced Practice Nurse 07/19/22 Irais Naylor, BULL GANG SUPERVISOR, YOUTH SERVICES LIBRARIAN #2 [facility] [address] [place] [address] Nurse Practitioner Cardiology 06/27/23 07/29/24 Sharri Gaspar MD 2 [facility] [address] [place] [address] Consulting Physician Cardiology 04/26/24 Amber Aldrich APRN, YOUTH SERVICES LIBRARIAN [address] [place] [address] Nurse Practitioner Cardiology 07/30/24 documented as of this encounter
--- OUTSIDE RECORDS SUMMARY | 2024-11-11 14:45 | XMS_ITS | Encounter Summary ---
Author Organization [facility] Address [address] [place] [address] Phone Care Team Providers Care Clinical Medical Transcriptionist Name Role Phone Phil Jacobo MD Unavailable [phone] Rajiv Mccormack NP Unavailable Unavailable Alize Acosta APRN, TESTING CONSULTANT Unavailable [phone] Dayo Chaney MD Unavailable Juanita Hauser RN Unavailable UnavailDavid Alexandre MD Unavailable Maurilio Farley MD Unavailable Rebeka Trinidad MD Primary Care Provider + [phone] Dom Quiñonez MD Unavailable Rachelle Nava DIVISION ENGINEER, MATERIALS ANALYST Unavailable + [phone] Irais Naylor DIVISION ENGINEER, TESTING CONSULTANT Unavailable + [phone] Lorri Leo DIVISION ENGINEER, TESTING CONSULTANT Primary Care Provider + [phone] Rebeka Trinidad MD Primary Care Provider + [phone] Lorri Leo DIVISION ENGINEER, TESTING CONSULTANT Primary Care Provider + [phone] Sharri Gaspar MD Unavailable Tani Biggs [facility] Primary Care Provider + [phone] Amber Aldrich APRN, CNP Unavailable Reason for Visit * Reason Comments Medication Refill Encounter Details Date Type Department Care Team (Late st Contact Info) Description 07/18/2023 Refill [facility] - Primary Care - [place] [address] [place] [address] Emilia Tang MD [address] [place] [address] Medication Refill Social History Tobacco Use Types Packs/Day Years Used Date Smoking Tobacco: Former Cigarettes 1 37.1 1 985 - 04/12/2021 Smokeless Tobacco: Never Alcohol Use Standard Drinks/Week Comments Not Currently 0 (1 standard drink = 0.6 oz pur e alcohol) last drank 2020 [facility] Utilities Answer Date Recorded In the past 12 months has [employer] electric, gas, oil, or water company threatened [...] Never 03/24/2023 How often do you attend [facility] or holiness services? More than 4 times per year [...] Total Score - Questions 1-9 18 08/ [facility] - Occupational Stress Questionnaire Answer Date [...] place to sleep or slept in a skilled nursing (including now)? 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 on file Not on file documented as of this encounter Plan of Treatment Upcoming Encounters Date Type Department Care Team (Latest Contact Info) Description 11/12/2024 9:00 AM CDT Appointment [facility] Nuclear Medicine [address] [place] [address] Amber Aldrich APRN, TESTING CONSULTANT [address] [place] [phone] Discharge Disposition: Discharged to home or Selfcare 11/12/2024 9:15 AM CDT Appointment [facility] Nuclear Medicine [address] [place] [address] Amber Aldrich APRN, TESTING CONSULTANT [address] [place] [phone] Discharge Disposition: Discharged to home or Selfcare 11/12/2024 9:30 AM CDT Hospital Encounter [facility] Cardiology Stress [address] [place] [address] Amber Aldrich APRN, TESTING CONSULTANT [address] [place] [address] 11/12/2024 10:00 AM CDT Appointment [facility] Nuclear Medicine [address] [place] [address] Amber Aldrich APRN, TESTING CONSULTANT [address] [place] [address] Discharge Disposition: Discharged to home or Selfcare 11/17/2024 2:00 PM CDT Telemedicine [facility] [address] [place] [address] Alize Acosta APRN, TESTING CONSULTANT [address] [place] [address] 11/18/2024 3:45 PM CDT Office Visit [facility] - Endocrinology - [place] [address] [place] [address] David Salmon MD #[address] [address] 01/03/2025 11:30 AM CDT Office Visit [facility] Neurology - [place] [address] [place] [address] Rachelle Nava, RUSSELL, MATERIALS ANALYST [address] [place] [address] 03/04/2025 3:10 PM TRACTOR SWEEPER DRIVER Lab [facility] Primary [facility] - [place] [address] [place] [address] [facility] 03/04/2025 3:30 PM TRACTOR SWEEPER DRIVER Office Visit [facility] Primary [facility] - [place] [address] [place] [address] Tani Biggs PAC [address] [place] [address] 03/17/2025 1:30 PM TRACTOR SWEEPER DRIVER Lab [facility] - Cancer Center Oncology Services [address] [place] [address], [place] [phone] Melony Asif August, PAC [address] [place] [address] Discharge Disposition: Discharged to home or Selfcare 03/25/2025 1:20 PM TRACTOR SWEEPER DRIVER Office Visit [facility] Oncology Services [address] [place] [address] AsifMelony August, PAC [address] [place] [address] Discharge Disposition: Discharged to home or Selfcare 04/25/2025 2:00 PM TRACTOR SWEEPER DRIVER Office Visit [facility] Medical [facility] - Cardiology - [place] [address] [place] [address] Laisha Griffin, DO [address] [address] 07/18/2025 1:00 PM CDT Office Visit [facility] - Pulmonology & Sleep Medicine [facility] [address] [place] [address] Dom Quiñonez MD [address] [place] [address] documented as of this encounter Goals Goal [...] diet Depression Depression Improving(0 03/15/2022 2:27 PM TRACTOR SWEEPER DRIVER) No Breanne Saldana LCSW Note: Goal/Objective: [...] 19 04/18/2024 04/18/2024 04/18/2024 10:4 7 PM TRACTOR SWEEPER DRIVER Respiratory Rule-Out 05/06/2024 05/06/2024 025 9:20 AM TRACTOR SWEEPER DRIVER COVID - 19 05/06/2024 05/06/2024 05/06/2024 9:19 AM TRACTOR SWEEPER DRIVER Assessment Noted Time PHQ-9 Depression Total Score: 18 023 9:24 AM CDT documented as of this encounter Care Teams Clinical Medical Transcriptionist Relationship Specialty Start Date End Date Rebeka Trinidad MD [address] [place] [address] PCP - General Family Medicine 03/26/23 03/29/24 Lorri Leo APRN, TESTING CONSULTANT [address] [place] [address] PCP - General Certified Nurse Practitioner 03/30/24 04/20/24 Rebeka Trinidad MD [address] [place] [address] PCP - General Family Medicine 04/21/24 04/21/24 Lorri Leo APRN, TESTING CONSULTANT [address] [place] [address] PCP - General Certified Nurse Practitioner 04/22/24 05/30/24 Tani Biggs PAC [address] [place] [address] PCP - General Physician Hand Stamper 05/31/24 Phil Jacobo MD #[address] [place] [address] Consulting Physician Neurology 03/07/21 Rajiv Mccormack NP #[address] [place] [address] Nurse Practitioner Gastroenterology 03/07/21 Alize Acosta APRN, TESTING CONSULTANT [address] [place] [address] Virtual Advanced Care (VAC) REFINERY OPERATOR POLYMERIZATION PLANT Advanced Practice Nurse 08/30/21 Dayo Chaney MD [address] [place] [address] Pipe Crew Foreman Cardiovascular Disease - Cardiology 09/20/21 02/12/24 Juanita Mercado RN [place] Registered Nurse Cardiology 12/24/21 02/12/24 David Salmon MD #[address] [address] Consulting Physician Endocrinology 01/15/22 Maurilio Farley MD #[address] [address] Consulting Physician Colon and Rectal Surgery 09/20/22 Dom Quiñonez MD #[address] [place] [address] Consulting Physician Pulmonary Disease 11/19/21 Rachelle Nava APRN, MATERIALS ANALYST #[address] [place] [address] Nurse Practitioner Advanced Practice Nurse 07/19/22 Irais Naylor APRN, TESTING CONSULTANT #[address] [facility], [address] [place] [address] Nurse Practitioner Cardiology 06/27/23 07/29/24 Sharri Gaspar MD [address] [place] [address] Consulting Physician Cardiology 04/26/24 Amber Aldrich APRN, CNP [address] [place] [address] Nurse Practitioner Cardiology 07/30/24 documented as of this encounter
--- OUTSIDE RECORDS SUMMARY | 2024-11-11 14:45 | XMS_ITS | Encounter Summary ---
Author Organization [facility] Address [address] [place] [address] Phone Care Team Providers Care Legal Investigator Name Role Phone Jackeline Dimas BLANKET WINDER HELPER, CSR Primary Care Provider Fiona Martinez SIGNALER Unavailable Unavailab Phil Ellis MD Unavailable [phone] Rajiv Mccormack NP Unavailable Unavailable Renita Quezada RN Unavailable Unavailable Alize Acosta BLANKET WINDER HELPER, CSR Unavailable [phone] Dayo Chaney MD Unavailable Juanita Hauser RN Unavailable Unavaila David Martinez MD Unavailable Emilia Tang MD Primary Care Provider [phone] Maurilio Farley MD Unavailable Candida Turner MD Unavailable Rebeka Trinidad MD Primary Care Provider + [phone] Dom Quiñonez MD Unavailable Rachelle Nava BLANKET WINDER HELPER, NET WEB DEVELOPER Unavailable + [phone] Irais Naylor BLANKET WINDER HELPER, CSR Unavailable [phone] AhmetAngélicamando Littlejohn BLANKET WINDER HELPER, CSR Primary Care Provider + [phone] Rebeka Trinidad MD Primary Care Provider [phone] Lorri Leo BLANKET WINDER HELPER, CSR Primary Care Provider [phone] Sharri Gaspar MD Unavailable Tani Biggs [facility] Primary Care Provider + [phone] Amber Aldrich BLANKET WINDER HELPER, CSR Unavailable Reason for Visit * Reason Comments Medication Refill Encounter Details Date Type Department Care Team (Late Contact Info) Description 10/12/2020 Refill [facility] - [place] [address] [place] [address] Jackeline Dimas, BLANKET WINDER HELPER, [facility] [address] [place] [address] Medication Refill Social History Tobacco [...] 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 on file Not [...] Info) Description 11/12/2024 9:00 AM CDT [facility]ment [facility] Nuclear Medicine [address] [place] [address] Amber Aldrich APRN, CSR [address] [place] [address] Discharge Disposition: Discharged to home or Selfcare 11/12/2024 9:15 AM CDT [facility]ment [facility] Nuclear Medicine [address] [place] [address] Amber Aldrich APRN, CSR [address] [place] [address] Discharge Disposition: Discharged to home or Selfcare 11/12/2024 9:30 AM CDT Hospital [facility] Cardiology Stress [address] [place] [address] Amber Aldrich APRN, CSR [address] [place] [address] 11/12/2024 10:00 AM CDT Appointment [facility] Nuclear Medicine [address] [place] [address] Amber Aldrich APRN, CSR [address] [place] [address] Discharge Disposition: Discharged to home or Selfcare 11/17/2024 2:00 PM CDT Telemedicine [facility] [address] [place] [address] Alize Acosta, BLANKET WINDER HELPER, CSR [address] [place] [address] 11/18/2024 3:45 PM CDT Office Visit [facility] - Endocrinology - [place] [address]2 [facility] [place] [address] David Salmon MD #2 [facility] [address] [place] [address] 01/03/2025 11:30 AM CDT Office Visit [facility] - Neurology - [place] [address]2 [place] [address] Rachelle Nava, BLANKET WINDER HELPER, NET WEB DEVELOPER [address] [place] [address] 03/04/2025 3:10 PM INFECTION PREVENTION PRACTITIONER Lab [facility] Primary Care - [place] [address] [place] [address] [facility] 03/04/2025 3:30 PM INFECTION PREVENTION PRACTITIONER Office Visit [facility] Primary Care - [place] [address] [place] [address] Tani Biggs, ESTRELLITA [address] [place] [address] 03/17/2025 1:30 PM INFECTION PREVENTION PRACTITIONER Lab [facility] [address] [place] [address] Melony Asif, PAC [address] [place] [address] Discharge Disposition: Discharged to home or Selfcare 03/25/2025 1:20 PM INFECTION PREVENTION PRACTITIONER [facility] [address] [place] [address] Melony Asif, PAC [address] [place] [address] Discharge Disposition: Discharged to home or Selfcare 04/25/2025 2:00 PM INFECTION PREVENTION PRACTITIONER Office [facility] Medical [facility] - Cardiology - [place] [address] [place] [address] Laisha Griffin, DO [address] [address] 07/18/2025 1:00 PM CDT [facility] - [place] [address] [place] [address] Dom Quiñonez MD #[address] [place] [address] documented as of this encounter Visit Diagnoses Diagnosis Type 2 diabetes mellitus with hyperglycemia, without long-term current use of insulin (HCC) documented in this encounter Additional Health Concerns Infection Onset Date Last Indicated Resolved Time COVID - 19 01/08/2021 01/08/2021 01/28/2021 12:1 6 AM INFECTION PREVENTION PRACTITIONER COVID - 19 03/12/2021 03/12/2021 04/01/2021 12:1 6 AM INFECTION PREVENTION PRACTITIONER COVID - 19 12/15/2021 12/15/2021 12/15/2021 7:26 PM CDT COVID - 19 Confirmed 12/15/2021 12/15/2021 022 12:16 AM CDT COVID - 19 04/18/2024 04/18/2024 04/18/2024 10:4 7 PM INFECTION PREVENTION PRACTITIONER Respiratory Rule-Out 05/06/2024 05/06/2024 025 9:20 AM INFECTION PREVENTION PRACTITIONER COVID - 19 05/06/2024 05/06/2024 05/06/2024 9:19 AM INFECTION PREVENTION PRACTITIONER Assessment Noted Time PHQ-9 Depression Total Score: 0 09/01/19 20 11:58 AM CDT documented as of this encounter Care Teams Legal Investigator Relationship Specialty Start Date End Date Jackeline Dimas, BLANKET WINDER HELPER, CSR [address] [place] [address] PCP - General Advanced Practice Nurse 07/31/17 Emilia Tang MD [address] [place] [address] PCP - General Family Medicine 06/07/22 03/25/23 Rebeka Trinidad MD [address] [place] [address] PCP - General Family Medicine 03/26/23 03/29/24 Lorri Leo BLANKET WINDER HELPER, CSR [address] [place] [address] PCP - General Certified Nurse Practitioner 03/30/24 04/20/24 Rebeka Trinidad MD [address] [place] [address] PCP - General Family Medicine 04/21/24 04/21/24 Lorri Leo BLANKET WINDER HELPER, CSR [address] [place] [address] PCP - General Certified Nurse Practitioner 04/22/24 05/30/24 Tani Biggs, PAC [address] [place] [address] PCP - General Physician Machine Filler 05/31/24 Fiona Martinez, MARSHA [place] Software Test Manager 03/01/21 08/23/21 Phil Jacobo MD #[address] [place] [address] Consulting Physician Neurology 03/07/21 Rajiv Mccormack, KELI [address] [place] [address] Nurse Practitioner Gastroenterology 03/07/21 Renita Quezada RN [place] Software Test Manager 05/09/21 08/23/21 Alize Acosta, BLANKET WINDER HELPER, CSR [address] [place] [address] Virtual Advanced Care (VAC) PERFORMING ARTIST Advanced Practice Nurse 08/30/21 Dayo Chaney MD [address] [place] [address] Head Wood Grinder Cardiovascular Disease - Cardiology 09/20/21 02/12/24 Juanita Mercado RN [place] Registered Nurse Cardiology 12/24/21 02/12/24 David Salmon MD #[address] [address] Consulting Physician Endocrinology 01/15/22 Maurilio Farley MD #[address] [address] Consulting Physician Colon and Rectal Surgery 09/20/22 PhysicianCandida MD [address] [place], [place] [address] Family Medicine 01/25/22 03/18/23 Dom Quiñonez MD #[address] [place] [address] Consulting Physician Pulmonary Disease 11/19/21 Rachelle Nava APRN, NET WEB DEVELOPER #[address] [place] [address] Nurse Practitioner Advanced Practice Nurse 07/19/22 Irais Naylor APRN, CSR [address] [facility] [address] [address] [place] [address] Nurse Practitioner Cardiology 06/27/23 07/29/24 Sharri Gaspar MD [address] [facility] [address] [place] [address] Consulting Physician Cardiology 04/26/24 Amber Aldrich APRN, CSR #[address] [place] [address] Nurse Practitioner Cardiology 07/30/24 documented as of this encounter
--- OUTSIDE RECORDS SUMMARY | 2024-11-11 14:45 | XMS_ITS | Encounter Summary ---
Author Organization [facility] Address [address] [place] [address] Phone Care Team Providers Care Printed Circuit Boards Router Name Role Phone Jackeline Dimas HARBOR DEPARTMENT MANAGER, MANAGER TRAVEL Primary Care Provider Phil Jacobo MD Unavailable [phone] Rajiv Mccormack NP Unavailable Unavailable Alize Acosta HARBOR DEPARTMENT MANAGER, MANAGER TRAVEL Unavailable [phone] Dayo Chaney MD Unavailable Juanita Hauser RN Unavailable UnavailDavid Alexandre MD Unavailable Emilia Tang MD Primary Care Provider [phone] Maurilio Farley MD Unavailable Physician, Candida Davis MD Unavailable Rebeka Trinidad MD Primary Care Provider + [phone] Dom Quiñonez MD Unavailable Rachelle Nava HARBOR DEPARTMENT MANAGER, CERAMIC COATER Unavailable + [phone] Irais Naylor HARBOR DEPARTMENT MANAGER, MANAGER TRAVEL Unavailable + [phone] Lorri Leo HARBOR DEPARTMENT MANAGER, MANAGER TRAVEL Primary Care Provider [phone] Rebeka Trinidad MD Primary Care Provider + [phone] Ahmet Lorri Annetta HARBOR DEPARTMENT MANAGER, [facility] Primary Care Provider + [phone] Sharri Gaspar MD Unavailable Kalyan Tani B [facility] Primary Care Provider [phone] Amber Aldrich APRN, [facility] Unavailable Reason for Visit * Reason Comments Medication Refill Encounter Details Date Type Department Care Team (Late st Contact Info) Description 03/31/2022 Refill [facility] - Endocrinology - [place] [address] [place] [address] David Salmon MD [address] [address] Medication Refill Social History Tobacco [...] 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 No / Unsure 04/01/2022 1:35 PM MATHS TUTOR documented as of this encounter Miscellaneous Notes * Telephone Encounter - Yesi Leggett RN - 04/01/2022 9:43 AM MATHS TUTOR Requested Prescriptions Pending Prescriptions Disp Refills ??? Glucose Blood (OneTouch Verio) Strip [Pharmacy Med Name: ONE TOUCH VERIO TEST ST(NEW)100S] 200 Strip Sig: TEST BLOOD SUGAR TWICE DAILY Next appt: 04/30/2022 S TUTOR documented in this encounter Plan of Treatment Upcoming Encounters Date Type Department Care Team (Latest Contact Info) Description 11/12/2024 9:00 AM CDT [facility] [address] [place] [address] Amber Aldrich APRN, MANAGER TRAVEL [address] [place] [address] Discharge Disposition: Discharged to home or Selfcare 11/12/2024 9:15 AM CDT Appointment [facility] Nuclear Medicine [address] [place] [address] Amber Aldrich APRN, MANAGER TRAVEL #[address] [place] [address] Discharge Disposition: Discharged to home or Selfcare 11/12/2024 9:30 AM CDT [facility] Cardiology Stress [address] [place] [address] Amber Aldrich APRN, MANAGER TRAVEL [address] [place] [address] 11/12/2024 10:00 AM CDT Appointment [facility] Nuclear Medicine [address] [place] [address] Amber Aldrich APRN, MANAGER TRAVEL [address] [place] [address] Discharge Disposition: Discharged to home or Selfcare 11/17/2024 2:00 PM CDT Telemedicine [facility] [address] [place] [address] Alize Acosta, RUSSELL, MANAGER TRAVEL [address] [place] [address] 11/18/2024 3:45 PM CDT Office Visit [facility] - Endocrinology - [place] [address] [place] [address] David Salmon MD #[address] [phone] 01/03/2025 11:30 AM CDT Office Visit [facility] Neurology - [place] [address] [place] [address] Rachelle Nava, HARBOR DEPARTMENT MANAGER, CERAMIC COATER [address] [place] [address] 03/04/2025 3:10 PM MATHS TUTOR Lab [facility] Primary [facility] - [place] [address] [place] [address] [facility] 03/04/2025 3:30 PM MATHS TUTOR Office Visit [facility] Primary [facility] - [place] [address] [place] [address] Tani Biggs PAC [address] [place] [address] 03/17/2025 1:30 PM MATHS TUTOR Lab [facility] On[facility] [address] [place] [address] Melony Asif August, PAC [address] [place] [address] Discharge Disposition: Discharged to home or Selfcare 03/25/2025 1:20 PM MATHS TUTOR [facility] Oncology Services [address] [place] [address] Melony Asif August, PAC [address] [place] [address] Discharge Disposition: Discharged to home or Selfcare 04/25/2025 2:00 PM MATHS TUTOR Office Visit [facility] - Cardiology - [place] [address] [place] [address] Laisha Griffin, DO [address] [address] 07/18/2025 1:00 PM CDT Office Visit [facility] - Pulmonology & Sleep Medicine [facility] [address] [place] [address] Dom Quiñonez MD [address] [place] [address] documented as of this encounter Goals Goal [...] as recommended. Depression Depression Improving( 2:27 PM MATHS TUTOR) No Breanne Saldana, SANDEEP Note: Goal/Objective: Decrease [...] 19 04/18/2024 04/18/2024 04/18/2024 10:4 7 PM MATHS TUTOR Respiratory Rule-Out 05/06/2024 05/06/2024 025 9:20 AM MATHS TUTOR COVID - 19 05/06/2024 05/06/2024 05/06/2024 9:19 AM MATHS TUTOR Assessment Noted Time PHQ-9 Depression Total Score: 24 022 3:31 PM MATHS TUTOR documented as of this encounter Care Teams Printed Circuit Boards Router Relationship Specialty Start Date End Date Jackeline Dimas, HARBOR DEPARTMENT MANAGER, MANAGER TRAVEL [address] [place] [address] PCP - General Advanced Practice Nurse 07/31/17 Emilia Tang MD [address] [place] [address] PCP - General Family Medicine 06/07/22 03/25/23 Rebeka Trinidad MD [address] [place] [address] PCP - General Family Medicine 03/26/23 03/29/24 Lorri Leo HARBOR DEPARTMENT MANAGER, MANAGER TRAVEL [address] [place] [address] PCP - General Certified Nurse Practitioner 03/30/24 04/20/24 Rebeka Trinidad MD [address] [place] [address] PCP - General Family Medicine 04/21/24 04/21/24 Lorri Leo HARBOR DEPARTMENT MANAGER, MANAGER TRAVEL [address] [place] [address] PCP - General Certified Nurse Practitioner 04/22/24 05/30/24 Tani Biggs, PAC [address] [place] [address] PCP - General Physician Airframe And Power Plant Mechanic 05/31/24 Phil Jacobo MD #[address] [place] [address] Consulting Physician Neurology 03/07/21 Rajiv Mccormack, KELI [address] [place] [address] Nurse Practitioner Gastroenterology 03/07/21 Alize Acosta, HARBOR DEPARTMENT MANAGER, MANAGER TRAVEL [address] [place] [address] Virtual Advanced Care (VAC) CULINARY MANAGER Advanced Practice Nurse 08/30/21 Dayo Chaney MD [address] [place] [address] Survey Research Analyst Cardiovascular Disease - Cardiology 09/20/21 02/12/24 Juanita Mercado RN [place] Registered Nurse Cardiology 12/24/21 02/12/24 David Salmon MD #[address] [address] Consulting Physician Endocrinology 01/15/22 Maurilio Farley MD #[address] [address] Consulting Physician Colon and Rectal Surgery 09/20/22 Physician, Candida Davis MD [address] [place] [address] Family Medicine 01/25/22 03/18/23 Dom Quiñonez MD #[address] [place] [address] Consulting Physician Pulmonary Disease 11/19/21 Rachelle Nava, HARBOR DEPARTMENT MANAGER, CERAMIC COATER [address] [place] [address] Nurse Practitioner Advanced Practice Nurse 07/19/22 Irais Naylor APRN, MANAGER TRAVEL #2 [facility] [address] [place] [address] Nurse Practitioner Cardiology 06/27/23 07/29/24 Sharri Gaspar MD [address], [address] [place] [address] Consulting Physician Cardiology 04/26/24 Amber Aldrich APRN, MANAGER TRAVEL #2 [facility] [place] [place] [address] Nurse Practitioner Cardiology 07/30/24 documented as of this encounter
--- OUTSIDE RECORDS SUMMARY | 2024-11-11 14:45 | XMS_ITS | Clinical Summary ---
Author Organization [facility] Address [address] [place] [address] Phone Care Team Providers Care Electrical Instrument Technician Name Role Phone Unavailable Primary Care Provider [...] by mouth 2 times daily. Active Insulin [place], Disposable, (BD Ultra-Fine Short Pen Needle) 31 [...] with breakfast. Active naloxone (NARCAN) 4 mg/spray [place], Non-Aerosol Administer 4 mg in one nostril [...] Encounters Date Type Department Care Team Description 11/09/2024 External Device Data STL ABSTRACTION Provider, Abstract 11/09/2024 External Device Data STL ABSTRACTION Provider, Abstract 10/26/2024 External Device Data STL ABSTRACTION Provider, Abstract 10/19/2024 External Device Data STL ABSTRACTION Provider, Abstract 10/13/2024 External Device Data STL ABSTRACTION Provider, Abstract 10/12/2024 External Device Data STL ABSTRACTION Provider, Abstract 09/22/2024 External Device Data STL ABSTRACTION Provider, Abstract 09/21/2024 External Device Data STL ABSTRACTION Provider, Abstract [...] Comments Blood Pressure 115/66 01/28/2024 4:25 AM PRODUCT DEVELOPMENT WORKER Pulse 79 01/28/2024 4:25 AM PRODUCT DEVELOPMENT WORKER Temperature 36.9 C (98.4 F) 01/28/2024 4:25 AM PRODUCT DEVELOPMENT WORKER Respiratory Rate 16 01/28/2024 4:25 AM PRODUCT DEVELOPMENT WORKER Oxygen Saturation 100% 01/28/2024 4:25 AM PRODUCT DEVELOPMENT WORKER Inhaled Oxygen Concentration - - Weight 77.9 kg (171 lb 11.2 oz) 01/25/2024 2:00 AM PRODUCT DEVELOPMENT WORKER Height 162.6 cm (5' 4) 01/25/2024 2:00 AM PRODUCT DEVELOPMENT WORKER Body Mass Index 29.47 01/25/2024 2:00 AM PRODUCT DEVELOPMENT WORKER Plan of Treatment Health Maintenance Due Date [...] history exists DIABETES HBA1C Q 6 MONTHS 07/24/20242023, 11/14/2023, 04/15/2023 CERVICAL CANCER SCREENING 09/26/2024 PAP SMEAR 09/26/2024 09/26/2021 INFLUENZA VACCINE (#1) 2024 3, 11/13/2021, 11/30/2020, Additional history exists DIABETES ANNUAL FOOT EXAM 11/13/2024 11/14/2023 DIABETES ANNUAL RETINAL EXAM 11/30/2024 12/01/2023 DTAP/TDAP/TD VACCINES (2 - T d or Tdap) 06/07/2032 06/07/2022 COLORECTAL SCREENING 01/26/2034 01/27/2024, 01/27/2024, 10/29/2017 Colorectal Cancer Screening 01/26/2034 Procedures Procedure Name Priority Date/Time Associated Diagnosis Comments COLONOSCOPY REPORT 01/27/2024 10 :31 AM PRODUCT DEVELOPMENT WORKER HEMOGLOBIN A1C Stat 01/25/2024 8:08 AM PRODUCT DEVELOPMENT WORKER from Last 3 Months or Most Recently Relevant to Health Maintenance Results * COLONOSCOPY REPORT (01/27/2024 10:31 AM PRODUCT DEVELOPMENT WORKER) Narrative Procedure Note Roman Pang MD - 01/27/2024 10:31 AM CST [facility] Endoscopy Patient Name: Jodie Sutton Procedure Date: [...] of Addenda: [address]; [place] [address] Roman Pang MD GI PROCEDURE ORDERABLES Final Re sult * HEMOGLOBIN A1C (01/25/2024 8:08 AM PRODUCT DEVELOPMENT WORKER) HEMOGLOBIN A1C 5.3 <5.7 % 01/25/2024 2:20 PM PRODUCT DEVELOPMENT WORKER [facility] EST. AVG GLUCOSE, A1C 105 mg/dL 01/25/2024 2:20 PM [facility] Blood Venipuncture / Unknown 01/25/2024 8:08 AM PRODUCT DEVELOPMENT WORKER 01/25/2024 8:12 AM PRODUCT DEVELOPMENT WORKER Narrative [facility] - 01/25/2024 2:20 PM PRODUCT DEVELOPMENT WORKER HGB A1C INTERPRETATION NORMAL: <5.7% PRE-DIABETES: 5.7 - 6.4% DIABETES: 6.5% OR GREATER Scooter Whitley MD CHEMISTRY ORDERABLES Final Re sult [facility] CLIA# [id number] [address] [place] [address] from Last 3 Months or Most Recently Relevant to Health Maintenance Insurance MEDICAID [place] [facility] Advance Directives For more information, please contact: [phone] * Full Code (Latest Code Status on File) Date Activated Date Inactivated Comments 01/24/2024 11:01 PM 01/28/2024 4:29 PM
--- OUTSIDE RECORDS SUMMARY | 2024-11-11 14:45 | XMS_ITS | Encounter Summary ---
Author Organization [facility] Address [address] [place] [address] Phone Care Team Providers Care Training Engineer Name Role Phone Phil Jacobo MD Unavailable [phone] Rajiv Mccormack NP Unavailable Unavailable Alize Acosta APRN, HOSPITAL CHIEF EXECUTIVE OFFICER Unavailable [phone] Dayo Chaney MD Unavailable Juanita Hauser RN Unavailable UnavailDavid Alexandre MD Unavailable Maurilio Farley MD Unavailable Rebeka Trinidad MD Primary Care Provider + [phone] Dom Quiñonez MD Unavailable Rachelle Nava POWERTRAIN CALIBRATION ENGINEER, DONOR SERVICES MANAGER Unavailable + [phone] Irais Naylor POWERTRAIN CALIBRATION ENGINEER, HOSPITAL CHIEF EXECUTIVE OFFICER Unavailable + [phone] Lorri Leo POWERTRAIN CALIBRATION ENGINEER, HOSPITAL CHIEF EXECUTIVE OFFICER Primary Care Provider + [phone] Rebeka Trinidad MD Primary Care Provider + [phone] Lorri Leo POWERTRAIN CALIBRATION ENGINEER, HOSPITAL CHIEF EXECUTIVE OFFICER Primary Care Provider + [phone] Sharri Gaspar MD Unavailable Tani Biggs PAC Primary Care Provider + [phone] Amber Aldrich APRN, HOSPITAL CHIEF EXECUTIVE OFFICER Unavailable Reason for Visit * Reason Comments Medication Refill Encounter Details Date Type Department Care Team (Late st Contact Info) Description 06/23/2023 Refill [facility] [address] [place] [address] Belkis Mcnair APRN, HOSPITAL CHIEF EXECUTIVE OFFICER [address] [place] [address] Medication Refill Social History Tobacco Use Types Packs/Day Years Used Date Smoking Tobacco: Former Cigarettes 1 37.1 1 985 - 04/12/2021 Smokeless Tobacco: Never Alcohol Use Standard Drinks/Week Comments Not Currently 0 (1 standard drink = 0.6 oz pur e alcohol) last drank 2020 [facility] Utilities Answer Date Recorded In the past 12 months has [employer] electric, gas, oil, or water Up[employer] threatened to shut off services in your home? No 03/24/2023 Social Connection and Isolation Panel Answer Date Recorded In a typical week, how many times do you talk on the phone with family, friends, or neighbors? Once a week 03/24/2023 How often do you get togethe r with friends or relatives? Never 03/24/2023 How often do you attend memorial healthcare or jainism services? 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 Not [...] Care 06/04/23 Appointment [facility] NURSE [facility] 06/04/23 Office Visit Rebeka Trinidad MD [facility] 05/29/23 Appointment [facility] ADVANCED C[facility] NURSE [facility] 05/19/23 Appointment [facility] ADV[facility]ED [facility] NURSE [facility] 05/09/23 Office Visit Rebeka Trinidad MD [facility] 05/05/23 Appointment [facility] [...] 06/23/23 Appointment [facility] ADV[facility] NURSE [facility] Showing today's visits and meeting all other requirements Future Appointments Date Type Provider Dept 06/30/23 Appointment [facility] NURSE [facility] 07/14/23 Appointment ON[facility] AD[facility]ED CARE NURSE [facility] 07/21/23 Appointment ON[facility]ED C[facility] NURSE [facility] 07/28/23 Appointment [facility] NURSE [facility] 08/11/23 Appointment ONCALL AD[facility]ED CARE NURSE [facility] 08/20/23 Appointment [facility] PHARMACIST [facility] 08/25/23 Appointment Alize Acosta APRN, HOSPITAL CHIEF EXECUTIVE OFFICER [facility] 09/01/23 Appointment [facility] NURSE [facility] 09/08/23 Appointment ON[facility] NURSE [facility] 09/15/23 Appointment ON[facility] NURSE [facility] Showing future appointments within next 90 days and meeting all other requirements documented in this encounter Plan of Treatment Upcoming Encounters Date Type Department Care Team (Latest Contact Info) Description 11/12/2024 9:00 AM CDT Appointment [facility] Nuclear Medicine [address] [place] [address] Amber Aldrich APRN, HOSPITAL CHIEF EXECUTIVE OFFICER [address] [place] [address] Discharge Disposition: Discharged to home or Selfcare 11/12/2024 9:15 AM CDT [facility] [address] [place] [address] Amber Aldrich APRN, HOSPITAL CHIEF EXECUTIVE OFFICER [address] [place] [address] Discharge Disposition: Discharged to home or Selfcare 11/12/2024 9:30 AM CDT Hospital Encounter [facility] Cardiology Stress [address] [place] [address] Amber Aldrich, POWERTRAIN CALIBRATION ENGINEER, HOSPITAL CHIEF EXECUTIVE OFFICER [address] [place] [address] 11/12/2024 10:00 AM CDT [facility] [address] [place] [address] Amber Aldrich APRN, HOSPITAL CHIEF EXECUTIVE OFFICER #[address] [place] [address] Discharge Disposition: Discharged to home or Selfcare 11/17/2024 2:00 PM CDT Telemedicine [facility] [address] [place] [address] Alize Acosta APRN, HOSPITAL CHIEF EXECUTIVE OFFICER [address] [place] [address] 686- 11/18/2024 3:45 PM CDT Office Visit [facility] Medical [facility] - Endocrinology - [place] [address] [place] [address] David Salmon MD #[address] [address] 01/03/2025 11:30 AM CDT Office Visit [facility] - Neurology - [place] [address] [place] [address] Rachelle Nava APRN, DONOR SERVICES MANAGER [address] [place] [address] 03/04/2025 3:10 PM SPECIAL CLIENT BUS DRIVER Lab [facility] - Primary Care - [address] [place] [address] Lab, [facility] 03/04/2025 3:30 PM SPECIAL CLIENT BUS DRIVER Office Visit [facility] - Primary Care - [place] [address] [place] [address] Tani Biggs, ESTRELLITA [address] [place] [address] 03/17/2025 1:30 PM SPECIAL CLIENT BUS DRIVER [facility] [address] [place] [address] Melony Asif Stacey, [facility] [address] [place] [address] Discharge Disposition: Discharged to home or Selfcare 03/25/2025 1:20 PM SPECIAL CLIENT BUS DRIVER Office Visit [facility] Oncology Services [address] [place] [address] Melony Asif Stacey, [facility] [address] [place] [address] Discharge Disposition: Discharged to home or Selfcare 04/25/2025 2:00 PM SPECIAL CLIENT BUS DRIVER Office Visit [facility] - Cardiology - [place] [address] [place] [address] Laisha Griffin, DO [address] [address] 07/18/2025 1:00 PM CDT Office Visit [facility] - Pulmonology & Sleep Medicine [facility] #[address] [place] [address] Dom Quiñonez MD [address] [place] [address] documented as of this encounter Goals Goal Patient Goal Type Associated Problems Recent Progress Patient-Stated? Author ACTIVITY Activity No change(08/08 2:42 PM CDT) Yes Maritza Vanegas, RN Note: Bonny will walk five days a week. Goal Reviewed with: Bonny Readiness to change: Department associated with goal: [facility] ADVANCED CARE Steps to achieve goal: Walking 5 days a week I want to be able to be around people and feel less depressed. Behavioral Health Worsening(0 09/22/2023 3:12 PM CDT) Yes Hilda Tinajero [facility] Note: Goal/Objective: Decrease symptoms of [...] Depression Depression Improving(0 03/15/2022 2:27 PM SPECIAL CLIENT BUS DRIVER) No Breanne Saldana, TESTING AND REGULATING CHIEF Note: Goal/Objective: Decrease symptoms of depression associated [...] to change Department associated with goal: [facility] Steps to achieve goal: Bonny [...] 04/18/2024 04/18/2024 04/18/2024 10:4 7 PM SPECIAL CLIENT BUS DRIVER Respiratory Rule-Out 05/06/2024 05/06/2024 025 9:20 AM SPECIAL CLIENT BUS DRIVER COVID - 05/06/2024 05/06/2024 05/06/2024 9:19 AM SPECIAL CLIENT BUS DRIVER Assessment Noted Time PHQ-9 Depression Total Score: 18 023 9:24 AM CDT documented as of this encounter Care Teams Training Engineer Relationship Specialty Start Date End Date Rebeka Trinidad MD [address] [place] [address] PCP - General Family Medicine 03/26/23 03/29/24 Lorri Leo APRN, HOSPITAL CHIEF EXECUTIVE OFFICER [address] [address] PCP - General Certified Nurse Practitioner 03/30/24 04/20/24 Rebeka Trinidad MD [address] [place] [address] PCP - General Family Medicine 04/21/24 04/21/24 Lorri Leo APRN, HOSPITAL CHIEF EXECUTIVE OFFICER [address] [place] [id number] PCP - General Certified Nurse Practitioner 04/22/24 05/30/24 Tani Biggs, [facility] [address] [place] [address] PCP - General Physician Dirt Bike Mechanic 05/31/24 Phil Jacobo MD [address] [place] [address] Consulting Physician Neurology 03/07/21 Rajiv Mccormack, KELI [address] [place] [address] Nurse Practitioner Gastroenterology 03/07/21 Alize Acosta, POWERTRAIN CALIBRATION ENGINEER, HOSPITAL CHIEF EXECUTIVE OFFICER [address] [place] [address] Virtual Advanced Care (VAC) LOOP TACKER Advanced Practice Nurse 08/30/21 Dayo Chaney MD [facility] [place] [address] Equity Structurer Cardiovascular Disease - Cardiology 09/20/21 02/12/24 Juanita Mercado RN [place] Registered Nurse Cardiology 12/24/21 02/12/24 David Salmon MD #[address] [address] Consulting Physician Endocrinology 01/15/22 Maurilio Farley MD #[address] [address] Consulting Physician Colon and Rectal Surgery 09/20/22 Dom Quiñonez MD #2 [place] [address] Consulting Physician Pulmonary Disease 11/19/21 Rachelle Nava, POWERTRAIN CALIBRATION ENGINEER, DONOR SERVICES MANAGER [address] [place] [address] Nurse Practitioner Advanced Practice Nurse 07/19/22 Irais Naylor, POWERTRAIN CALIBRATION ENGINEER, HOSPITAL CHIEF EXECUTIVE OFFICER #2 [facility] [address] [place] [address] Nurse Practitioner Cardiology 06/27/23 07/29/24 Sharri Gaspar MD 2 [facility] [address] [place] [address] Consulting Physician Cardiology 04/26/24 Amber Aldrich APRN, HOSPITAL CHIEF EXECUTIVE OFFICER [address] [place] [address] Nurse Practitioner Cardiology 07/30/24 documented as of this encounter
--- OUTSIDE RECORDS SUMMARY | 2024-11-11 14:45 | XMS_ITS | Clinical Summary ---
Author Organization [facility] Address [address] [place] [address] Phone Care Team Providers Care Histology Specialist Name Role Phone Phil Jacobo MD Unavailable [phone] Rajiv Mccormack WASTE WATER WORKER Unavailable Unavailable Alize Acosta APRN, UNDERWRITING TECHNICIAN Unavailable [phone] David Salmon MD Unavailable Maurilio Farley MD Unavailable Dom Quiñonez MD Unavailable Rachelle Nava APPLIANCE FIXER, PLANE TENDER Unavailable + [phone] Sharri Gaspar MD Unavailable Tani Biggs PAC Primary Care Provider Amber Aldrich APPLIANCE FIXER, UNDERWRITING TECHNICIAN Unavailable Allergies Active Allergy Reactions Criticality Noted [...] In Search) Anaphylaxis Medium 01/12/2021 Mountain Dew Rivaroxaban Unknown High 10/18/2024 Shrimp Extract Other (see Comments) Low 2022 Tongue tingling Tongue tingling Tongue tingling Ketorolac Tromethamine Rash Medium 12/07/2020 Phenylephrine-Acetamino phen Hives Medium 03/07/2022 Medications famotidine (PEPCID) 40 MG Tablet Take 40 mg by mouth every morning. 09/27/19 22 Active polyethylene glycol (GLYCOLAX) 17 GM/SCOOP Powder Take 17 g by mouth daily as needed for Constipation - 1st line. 10/24/19 22 Active Vitamin D, Cholecalciferol, 25 MCG (1000 UT) Capsule Take 1 Capsule by mouth daily. Active TRUEplus 5-Bevel [place] 32G X 4 MM Misc USE DAILY DIRECTED. 100 Each 1 09/05/19 23 Active aspirin EC 81 MG Tablet Delayed Response Aspirin Adult Low Dose 81 MG Oral Tablet Delayed Release QTY: 0 tablet Days: 0 Refills: 0 Written: 11/26/22 Patient Instructions: 11/27/19 23 Active insulin glargine (Lantus SoloStar) 100 UNIT/ML Solution Pen-injector 25 Units by Subcutaneous route daily as needed for Other (elevated glucose when on steroids). Active Multiple Vitamin (MULTI-VITAMIN PO) Take by mouth daily. Active azelastine (ASTELIN) 0.1 % SolutionIndicatio ns:Chronic pansinusitis 2 Sprays by Nasal route 2 times daily. 30 mL 6 09/04/19 24 Active lubiprostone (AMITIZA) 24 MCG Capsule Take 24 mcg by mouth 2 times daily (with meals). Active ipratropium (ATROVENT) 0.02 % Solution INHALE THE CONTENTS OF 1 VIAL VIA NEBULIZER EVERY 6 HOURS NEEDED FOR WHEEZING. 900 mL 10/22/19 24 Active tamsulosin (FLOMAX) 0.4 MG CapsuleIndication s:Obstruction of right ureteropelvic junction (UPJ) due to stone TAKE 1 CAPSULE EVERY DAY 90 Capsule 3 01/02/20 24 Active Accu-Chek Softclix Lancets MiscIndications:T ype 2 diabetes mellitus with hyperglycemia, without long-term current use of insulin ([facility]) 1 Lancet by Does not apply route in the morning and at bedtime. Test blood glucose 2x daily, E11.65, insulin dependent 200 Each 3 01/19/20 24 Active Glucose Blood (Accu-Chek Guide) StripIndications: Type 2 diabetes mellitus with hyperglycemia, without long-term current use of insulin ([facility]) Test blood glucose 2x daily. E11.65, insulin dependent 200 Strip 3 01/19/20 Active cetirizine-pseudo ephedrine (ZYRTEC-D) 5-120 MG TABLET SR 12 HR Take 1 Tablet by mouth 2 times daily. Active naloxone HCl (Narcan) 4 MG/0.1ML Liquid 1 [place] by Nasal route as needed for Opioid Reversal. Administer in one nostril for symptoms of overdose (severe sleepiness, breathing problems, not responsive). Call 911. May repeat 1 spray in alternate nostril in 2-3 minutes if needed. 2 Each 02/24/20 24 Active metoprolol Succinate (TOPROL-XL) 25 MG TABLET SR 24 HR Take 1 Tablet by mouth daily. 90 Tablet 3 04/23/19 25 Active spironolactone (ALDACTONE) 25 MG Tablet Take 0.5 Tablets by mouth daily. 90 Tablet 3 04/23/19 25 Active atorvastatin (LIPITOR) 80 MG TabletIndications :Hyperlipidemia, unspecified hyperlipidemia type Take 1 Tablet by mouth daily. 90 Tablet 3 04/23/19 25 Active Emgality 120 MG/ML Solution Auto-injector INJECT THE CONTENTS OF 1 PEN UNDER THE SKIN ONE TIME MONTHLY 3 mL 3 05/04/19 25 Active metoclopramide (REGLAN) 10 MG Tablet Take 10 mg by mouth every 6 hours as needed for Nausea - 1st line. 03/25/19 25 Active pantoprazole (PROTONIX) 40 MG Tablet Delayed Response TAKE 1 TABLET BY MOUTH DAILY 30 Tablet 2 05/11/19 25 Active Blood Glucose Monitoring Suppl (Accu-Chek Guide) w/Device KitIndications:Ty pe 2 diabetes mellitus with hyperglycemia, without long-term current use of insulin (HCC) 1 Kit by Does not apply route 2 times daily. Test blood glucose 2x daily. E11.65, insulin dependent 1 Kit 3 05/28/19 25 Active albuterol 108 (90 Base) MCG/ACT Aerosol SolutionIndicatio ns:Subcutaneous emphysema resulting from a procedure, subsequent encounter INHALE 2 PUFFS EVERY 4 HOURS NEEDED FOR COUGH OR WHEEZING. 18 g 1 05/28/19 25 Active EPINEPHrine (EPIPEN) 0.3 MG/0.3ML Solution Auto-injectorIndi cations:Anaphylax is, subsequent encounter 0.3 mL by Intramuscular route once as needed for Anaphylaxis for up to 16 doses. 1.2 mL 3 07/08/19 25 Active glimepiride (AMARYL) 2 MG Tablet Take 1 Tablet by mouth every morning. 90 Tablet 1 08/18/19 25 Active ondansetron (ZOFRAN-ODT) 4 MG TABLET DISPERSIBLE Take 1 Tablet by mouth every 8 hours as needed for Nausea - 1st line. 10 Tablet 08/20/19 25 Active Tirzepatide (Mounjaro) 12.5 MG/0.5ML Solution Auto-injector 12.5 mg by Subcutaneous route once a week. 6 mL 09/01/19 25 Active allopurinol (ZYLOPRIM) 100 MG TabletIndications :Hyperuricemia TAKE 1 TABLET BY MOUTH DAILY 90 Tablet 09/01/19 25 Active buPROPion (WELLBUTRIN) 75 MG TabletIndications :Encounter for smoking cessation counseling Take 1 Tablet by mouth 2 times daily. 180 Tablet 10/01/19 25 Active DULoxetine (CYMBALTA) [address] Carranza ons:MDD (major depressive disorder), recurrent episode, moderate (HCC) TAKE 1 CAPSULE BY MOUTH DAILY 90 Capsule 10/05/19 25 Active ferrous sulfate 325 (65 Fe) MG Tablet Take 325 mg by mouth. Active methocarbamol (ROBAXIN) 500 MG Tablet TAKE 1 TABLET BY MOUTH THREE TIMES DAILY NEEDED Active simethicone (MYLICON) 125 MG Chewable Tablet CHEW ONE TABLET BY MOUTH UP TO FOUR TIMES DAILY NEEDED FOR PROBLEMATIC GAS AND UPPER ABDOMINAL PAIN Active nicotine (NICODERM CQ) 21 MG/24HR PATCH 24 HRIndications:Enc ounter for smoking cessation counseling 1 Patch by Transdermal route every 24 hours. 30 Patch 10/20/19 25 Active empagliflozin (Jardiance) 25 MG Tablet Take 1 Tablet by mouth daily. 100 Tablet 1 10/21/19 25 Active cyclobenzaprine (FLEXERIL) 10 MG Tablet Take 10 mg by mouth 3 times daily. 10/08/19 25 Active furosemide (LASIX) 20 MG Tablet Take 1 Tablet by mouth daily. 30 Tablet 10/27/19 25 Active montelukast (SINGULAIR) 10 MG Tablet Take 1 Tablet by mouth every evening. 90 Tablet 3 11/04/19 25 Active Fluticasone-Salme terol (Advair HFA) 230-21 MCG/ACT Aerosol take 1 Puff by inhalation every 12 hours. 36 g 3 11/04/19 25 Active docusate sodium 100 MG Capsule Take 1 Capsule by mouth 2 times daily as needed for Constipation - 1st line. 180 Capsule 1 11/04/19 25 Active ascorbic acid (VITAMIN C) 100 MG Tablet Take 1 Tablet by mouth daily. 90 Tablet 3 11/04/19 25 Active magnesium oxide (MAG-OX) 400 MG Tablet Take 1 Tablet by mouth daily. 90 Tablet 11/05/19 25 Active albuterol (PROVENTIL, VENTOLIN) (2.5 MG/3ML) 0.083% Nebulizer SolnIndications:U ncomplicated asthma, unspecified asthma severity, unspecified whether persistent 3 mL by Nebulization route every 4 hours as needed for Wheezing, Shortness of Breath or Cough. 75 mL 1 11/12/19 25 Active docusate sodium 100 MG Capsule Take 1-2 pills every evening for management of chronic constipation 01/26/20 21 025 Discontin ued(Reord er) Fluticasone-Salme terol (Advair HFA) 230-21 MCG/ACT Aerosol take 1 Puff by inhalation in the morning and at bedtime. 36 g 3 07/21/19 24 025 Discontin ued(Reord er) montelukast (SINGULAIR) 10 MG Tablet Take 1 Tablet by mouth every evening. 90 Tablet 3 08/15/19 24 025 Discontin ued(Reord er) Ascorbic Acid (VITAMIN C PO) Take by mouth daily. 025 Discontin ued(Reord er) empagliflozin (Jardiance) 25 MG Tablet Take 1 Tablet by mouth daily. 100 Tablet 1 09/01/19 25 025 Discontin ued(Reord er) Active Problems [...] + MRI () - right kidney mass ([facility] [place]). Creatinine 1.1. Hx of post-menopausal bleeding s/p [...] + MRI () - right kidney mass ([facility] [place]). Creatinine 1.1. Hx of post-menopausal bleeding s/p [...] Resolved Date ALT (SGPT) level raised 03/27/2021 06/2 11/2021 Bloating 01/25/2021 2024 Neck swelling 01/25/2021 09/05/2021 Nausea and vomiting 01/25/2021 06/01/19 25 Tobacco use disorder 05/14/2018 022 Precordial pain 07/16/2017 2024 Elevated liver enzymes 07/16/201709/05 Epigastric pain 07/16/2017 2024 Non-intractable vomiting with nausea 07/16/2017 2024 Type 2 diabetes mellitus wit h hyperglycemia, without long-term current use of insulin 07/16/2017 2024 Encounters Date Type Department Care Team Description 11/09/2024 2:00 PM CDT Telemedicine [facility] [address] [place] [address] Alize Acosta, APPLIANCE FIXER, UNDERWRITING TECHNICIAN Hypertension, essential (Primary Dx); Chronic combined systolic and diastolic CHF (congestive heart failure) (HCC); Type 2 diabetes mellitus without complication, without long-term current use of insulin; Uncomplicated asthma, unspecified asthma severity, unspecified whether persistent 11/07/2024 Travel 11/02/2024 Travel 11/01/2024 [facility] [address] [place] [address] Tani Biggs, PAC Medication Management 11/01/2024 [facility]ation [facility] [address], [place] [address] [phone] Gisell Espinoza, PT 10/26/2024 1:00 PM CDT [facility] [address] [place] [address] Amber Aldrich APRN, LIDA Chronic combined systolic and diastolic CHF (congestive heart failure) (HCC) (Primary Dx); Dyspnea on exertion Discharge Disposition: Discharged to home or Selfcare 10/25/2024 Travel 10/25/2024 Nurse Triage [facility] [address] [place] [address] Jodee Montoya RN High Blood Pressure 10/20/2024 [facility] [address] [place] [address] David Salmon MD Medication Refill 10/18/2024 1:00 PM CDT [facility] [address] [place] [phone] Dom Quiñonez MD EDDI (obstructive sleep apnea) (Primary Dx); Mild intermittent asthma without complication; Hypertension, essential; Non morbid obesity Discharge Disposition: Discharged to home or Selfcare 10/18/2024 Telephone [facility] [address] [place] [address] Patricia Dimas RN Hypertension 10/16/2024 Travel 10/11/2024 Patient Outreach [facility] [address] [place] [address] Navigator, Digital Health Patient Outreach; [facility] Equipment 10/07/[address] [facility] [address] [place] [address] Tani Biggs, PAC Medication Refill 10/06/2024 Patient Outreach [facility] [address] [place] [phone] Navigator, Digital Health Patient Outreach 10/03/[address] [facility] [address] [place] [address] Tani Biggs, PAC Medication Refill 10/01/2024 Telephone [facility] [address] [address] Jaylyn Mosqueda RN Alert for CHF survey score ([facility] ); Cough 09/30/2024 12:45 PM CDT E-Visit [facility] [address] [place] [address] Tani Biggs, PAC E-Visit for Back Pain 09/30/2024 Nurse Triage [facility] [address] [place] [phone] Tani Biggs, PAC Appointment 09/30/2024 Travel 09/30/2024 MyChart RX Renewal [facility] [address] [place] [address] Rebeka Trinidad MD Medication Renewal Reviewed 09/21/2024 3:20 PM CDT Office Visit [facility] Oncology Services [address] [place] [phone] Melony Asif, ESTRELLITA Anemia, unspecified type (Primary Dx); Beta thalassemia trait Discharge Disposition: Discharged to home or Selfcare 09/21/2024 Travel 09/20/2024 Travel 09/16/2024 Results Follow-Up [facility] On[facility] Services [address] [place] [address] Melony Asif, PAC VITAMIN B12, FERRITIN, IRON,TRANSFERN,CALC. TIBC,%SAT, Additional followed-up results: 4 09/13/2024 10:30 AM CDT [facility] [address] [place] [address] Melony Asif, PAC Anemia, unspecified type Discharge Disposition: Discharged to home or Selfcare 09/13/2024 Travel 09/06/2024 Travel 09/03/2024 11:00 AM CDT - 09/03/2024 11:59 PM CDT Hospital Encounter [facility] Ultrasound [address] [place] [address] Tani Biggs, PAC Discharge Disposition: Discharged to home or Selfcare 09/03/2024 Results Follow-Up [facility] [address] [place] [address] Tani Biggs, PAC US LEFT DUPLEX LOWER EXTREMITY VEINS 09/03/2024 Travel 09/03/2024 Telephone [facility] Call Center [address] [place] [phone] Tani Biggs, PAC Results 09/01/2024 4:00 PM CDT Office Visit [facility] [address] [place] [address] Tani Biggs, PAC Pain of left lower leg (Primary Dx); Chronic combined systolic and diastolic CHF (congestive heart failure) (HCC); Hypertension, essential; Hyperlipidemia, unspecified hyperlipidemia type; Type 2 diabetes mellitus without complication, without long-term current use of insulin; Chronic right-sided low back pain with right-sided sciatica Discharge Disposition: Discharged to home or Selfcare 09/01/2024 3:10 PM CDT Lab [facility] [address] [place] [address] [facility] Chronic combined systolic and diastolic CHF (congestive heart failure) (HCC); Hypertension, essential; Type 2 diabetes mellitus without complication, without long-term current use of insulin; Hyperparathyroidism (HCC); Hyperlipidemia, unspecified hyperlipidemia type Discharge Disposition: Discharged to home or Selfcare 08/31/2024 [facility] [address] [place] [phone] Lorri Leo APRN, LIDA Medication Refill 08/31/2024 [facility] [place] [address] [place] [phone] David Salmon MD Medication Refill 08/30/[address] [phone] Cecilia Aguila RN Patient Outreach ([facility] Every 2 Week Scheduled Call/) 08/30/2024 Travel 08/29/[address] [phone] Jodee Montoya RN Weight Gain 08/27/2024 [facility]phone [facility] [address] [place] [address] Tani Biggs, PAC 08/24/2024 MyChart [facility] [address] [place] [address] David Salmon MD Medication Renewal Reviewed 08/23/2024 Travel 08/22/2024 MyChart RX Renewal [facility] [place] [address] David Salmon MD Medication Renewal Reviewed 08/20/2024 Patient Outreach [facility] [address] Patricia Dimas, net trainer of Care 08/18/2024 9:17 PM CDT - 08/19/2024 12:57 AM CDT [facility] [address] [place] [address] Zacarias Arellano MD Nausea and vomiting, unspecified vomiting type Discharge Disposition: Discharged to home or Selfcare 08/18/2024 Travel 08/18/2024 [facility] [place] [address] David Salmon MD Medication Refill 08/18/2024 MyChart RX Renewal [facility] [address] [place] [address] David Salmon MD Medication Renewal Declined 08/18/2024 Patient Outreach [facility] [address] [address] Patricia Dimas RN Transition of Care 08/17/2024 4:28 PM CDT - 08/17/2024 6:37 PM CDT Emergency [facility] Emergency [address] [place] [address] Donna Frost APRN, CNP Osteoarthritis of right hand, unspecified osteoarthritis type Discharge Disposition: Discharged to home or Selfcare 08/17/2024 3:45 PM CDT Office Visit [facility] [address] [place] [phone] David Samlon MD Type 2 diabetes mellitus with hyperglycemia, without long-term current use of insulin (HCC) (Primary Dx); New medication added; Medication dose changed; Overweight Discharge Disposition: Discharged to home or Selfcare 08/17/2024 Travel 08/16/2024 Telephone [facility] [address] [place] [phone] Ayla Conte, RN Patient Outreach ([facility] Intentional Call) 08/15/2024 Travel from Last 3 Months Immunizations Immunization Administration Dates Next Due Influenza Vaccine greater than 3 yrs 12/23/2019 Influenza Vaccine, Quadrivalent, PF 11/3 ,11/13/2021,11/30/2020,12/15 Influenza, Seasonal, Injecta ble, Undefined 12/23/2019 Pneumococcal Vaccine Adult - 23 Valent Pneumococcal conjugate PCV20 , polysaccharide OXV106 conjugate, adjuvant, PF 06/07/2022 TDAP Vaccine 06/07/2022 [...] Tobacco: Never Tobacco Cessation:Ready to Q uit: No; Counseling Given: Yes Alcohol Use Standard Drinks/Week Comments Not Currently 0 (1 standard drink = 0.6 oz pur e alcohol) Last drink in 2020 [facility] Utilities Answer Date Recorded In the past 12 months has [employer], [place], oil, or water [employer] threatened to shut off services in your home? No 03/22/2024 Social Connection and Isolation Panel Answer Date Recorded In a typical week, how many times do you talk on the phone with family, friends, or neighbors? Once a week 03/22/19 How often do you get togethe r with friends or relatives? Never 03/22/2024 How often do you attend chur or protestant services? 1 to 4 times per year [...] Total Score - Questions 1-9 19 08/09 [facility] Occupat ional [facility] - Occupational Stress Questionnaire Answer [...] place to sleep or slept in a long-term (including now)? No 03/24/2023 Housing Stability Vital [...] in the past 12 m [facility], were you homeless or living in a long-term (including now)? 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 Not on file Not on file Last Filed Vital Signs Vital Sign Reading Time Taken Comments Blood Pressure 132/72 10/26/2024 1:20 PM CDT Pulse 88 10/26/2024 1:20 PM CDT Temperature 36.7 C (98 F) 10/26/2024 1:20 PM CDT Respiratory Rate 20 10/26/2024 1:20 PM CDT Oxygen Saturation 98% 10/26/2024 1:20 PM CDT Inhaled Oxygen Concentration - - Weight 78.1 kg (172 lb 3.2 oz) 10/26/2024 1:20 P M CDT Height 160 cm (5' 3) 10/18/2024 1:06 PM CDT Body Mass Index 30.5 10/18/2024 1:06 PM CDT Plan of Treatment Upcoming Encounters Date Type Department Care Team (Latest Contact Info) Description 11/12/2024 9:00 AM CDT [facility] [address] [place] [address] Amber Aldrich APRN, UNDERWRITING TECHNICIAN [address] [place] [phone] Discharge Disposition: Discharged to home or Selfcare 11/12/2024 9:15 AM CDT [facility] [address] [place] [address] Amber Aldrich APRN, UNDERWRITING TECHNICIAN [address] [place] [phone] Discharge Disposition: Discharged to home or Selfcare 11/12/2024 9:30 AM CDT [facility] Stress [address] [place] [address] Amber Aldrich APRN, UNDERWRITING TECHNICIAN [address] [place] [address] 11/12/2024 10:00 AM CDT Appointment [facility] Nuclear Medicine [address] [place] [address] Amber Aldrich APRN, UNDERWRITING TECHNICIAN [address] [place] [address] Discharge Disposition: Discharged to home or Selfcare 11/17/2024 2:00 PM CDT Telemedicine [facility] [address] [place] [phone] Alize Acosta, RUSSELL, UNDERWRITING TECHNICIAN [address] [place] [address] 11/18/2024 3:45 PM CDT [facility] [address] [place] [address] David Salmon MD [address] [phone] 01/03/2025 11:30 AM CDT Office Visit [facility] - Neurology - [place] [address] [place] [address] Rachelle Nava, APPLIANCE FIXER, PLANE TENDER [address] [place] [address] 03/04/2025 3:10 PM SPRINKLER FITTER HELPER Lab [facility] [place] [address] [place] [phone] [facility] 03/04/2025 3:30 PM SPRINKLER FITTER HELPER Office Visit [facility] - [place] [address] [place] [phone] Tani Biggs, PAC [address] [place] [address] 03/17/2025 1:30 PM SPRINKLER FITTER HELPER [facility] [address] [place] [phone] Melony Asif, PAC [address] [place] [address] Discharge Disposition: Discharged to home or Selfcare 03/25/2025 1:20 PM SPRINKLER FITTER HELPER [facility] [address] [place] [phone] Melony Asif, PAC [address] [place] [address] Discharge Disposition: Discharged to home or Selfcare 04/25/2025 2:00 PM SPRINKLER FITTER HELPER [facility] - [place] [address] [place] [phone] GriffinDebbie baezjali, DO [address] [address] 07/18/2025 1:00 PM CDT [facility] [place] [address] [place] [address] Dom Quiñonez MD [address] [place] [address] Health Maintenance Due Date Last Done Comments HPV/Cotest 06/01/1999 Cologuard 2014 Immunochemical Fecal Occult [...] Completed 08/19/2022, 09/26/2020, 07/17/2017 SARS-COV-2 Immunization Discontinued 12/18/19, 10/11/2022, 06/20/2022 Hepatitis B Immunization Discontinued Human Papillomavirus (HPV) Immunization Aged Out No longer eligible based on patient's age to complete this topic Meningococcal Immunization (ACWY) Aged Out No longer eligible based on [...] change: Department associated with goal: [facility] Steps to achieve [...] making a change Department associated with goal: [facility] Steps to achieve [...] diet Depression Depression Improving(0 03/15/2022 2:27 PM SPRINKLER FITTER HELPER) Breanne Barragan LCSW Note: Goal/Objective: Decrease symptoms [...] Ready to change Department associated with goal: [facility] Steps to achieve [...] Ready to change Department associated with goal: [facility] Steps to achieve goal: [...] is salt. Medical Devices Implanted Type Area Crab Picker Device Identifier Shelf Expiration Date Model / Serial / Lot Device Clsr 6-7fr Mynxgrip New Business Clerk Vasc Bln Cath Lock Syr Integrate Sealant 10ml Lf Disp - [id number] Implanted:Qty : 1 on 11/07/2017 by Divina Xie MD at [facility] IMPLANT Right: [employer] 10/08/2019 [id number] / / [id number] Procedures Procedure Name Priority Date/Time Associated Diagnosis Comments PAIN CONSULT 10/13/2024 12:00 AM CDT NEUROSURGY CONSULT 10/01/2024 12:00 AM CDT XR - SPINE 09/20/2024 12:00 AM CDT CBC WITH AUTO DIFFERENTIAL Routine 09/13/2024 10:54 [...] without long-term current use of insulin (HCC) HM DILATED EYE EXAM 12/01/2023 12:[address] CHEST SCREENING WO Routine 06/18/2023 12:34 PM CDT Ground glass opacity present on imaging of lung HEPATITIS C ANTIBODY Routine 08/19/2022 12:26 PM CDT Gout, unspecified cause, unspecified chronicity, unspecified site Other specified abnormal immunological findings in serum Osteoarthritis of multiple joints, unspecified osteoarthritis type Allergy, initial encounter Other specified counseling Other long term care pharmacist (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 YAZAN SCREENING BILATERAL DIGITAL W CAD W ROSEANN Routine 06/19/2022 3:15 PM CDT Encounter for screening mammogram for breast cancer PATHOLOGY CYTOLOGY DEBIT AGENT Routine 09/26/2021 9:23 AM CDT Vaginal odor CELIAC ANTIBODY PANEL Routine 11/30/2020 8:41 AM CDT SI (sacroiliac) pain Acute bilateral low back pain with bilateral sciatica Low lying conus medullaris (HCC) from Last 3 Months or Most Recently Relevant to Health Maintenance Results * PAIN CONSULT (10/13/2024 12:00 AM CDT) 10/13/2024 us Provider Scan GENERIC SCAN ORDERS CONSULT Donna l Result SCAN * NEUROSURGY CONSULT (10/01/2024 12:00 AM CDT) 10/01/2024 us Provider Scan GENERIC SCAN ORDERS CONSULT Donna l Result Performing Organization Address [facility]/ZIP Co de Phone Number SCAN * XR - SPINE (09/20/2024 12:00 AM CDT) 09/20/2024 Provider Scan IMG DIAGNOSTIC ORDERABLES Final Result Performing Organization Address [facility]/ZIP Co de Phone Number SCAN * IRON,TRANSFERN,CALC.TIBC,%SAT (09/13/2024 10:54 AM CDT) IRON 74 25 - 156 mcg/dL 09/13/2024 11:40 AM CDT [facility] TRANSFERRIN 317 180 - 382 mg/dL 09/13/2024 11:40 AM CDT [facility] TIBC, CALCULATED 396 265 - 497 mcg/dL 09/13/2024 11:40 AM CDT [facility] % SATURATION * 19 15 - 62 % 09/13/2024 11:40 AM CDT [facility] Blood Venipuncture / Unknown 09/13/2024 10:54 AM CDT 09/13/2024 10:54 AM CDT Melony Asif PAC CHEMISTRY ORDERABLES Donna l Result Performing Organization Address [facility] Co de Phone Number [facility] [address] [place] [address] * (ABNORMAL) CBC WITH AUTO DIFFERENTIAL (09/13/2024 10:54 AM CDT) Only the most recent of3 resultswithin the time period is included. WBC 6.81 4.00 - 12.00 10(3)/mcL 09/13/2024 11:18 AM CDT [facility] RBC 5.56(H) 3.80 - 5.30 10(6)/mcL 09/13/2024 11:18 AM CDT [facility] HEMOGLOBIN (HGB) 13.5 12.0 - 15.8 g/dL 09/13/2024 11:18 AM CDT [facility] HEMATOCRIT (HCT) 43.0 36.0 - 47.0 % 09/13/2024 11:18 AM CDT [facility] MCV 77.3(L) 82.0 - 96.0 fL 09/13/2024 11:18 AM CDT [facility] MCH 24.3(L) 26.0 - 34.0 pg 09/13/2024 11:18 AM CDT [facility] MCHC 31.4 31.0 - 36.0 g/dL 09/13/2024 11:18 AM CDT [facility] PLATELET COUNT 237 140 - 440 10(3)/[facility] 09/13/2024 11:18 AM CDT [facility] RDW 18.2(H) 11.8 - 15.5 % 09/13/2024 11:18 AM CDT [facility] MPV 11.8 9.7 - 12.4 fL 09/13/2024 11:18 AM CDT [facility] NEUTROPHILS 61.8 47.0 - 73.0 % 09/13/2024 11:18 AM CDT [facility] LYMPHOCYTES 25.4 18.0 - 42.0 % 09/13/2024 11:18 AM CDT [facility] MONOCYTES 7.9 4.0 - 12.0 % 09/13/2024 11:18 AM CDT [facility] EOSINOPHILS 3.7 0.0 - 5.0 % 09/13/2024 11:18 AM CDT [facility] BASOPHILS 0.6 0.0 - 1.0 % 09/13/2024 11:18 AM CDT [facility] IMMATURE GRANULOCYTE 0.6(H) 0.0 - 0.4 % 09/13/2024 11:18 AM CDT [facility] Comment:Immature Granulocyte s includes Metamyelocytes, Myelocytes, and Promyelocytes. ABSOLUTE NEUTROPHILS 4.21 1.60 - 7.70 10(3)/[facility] 09/13/2024 11:18 AM CDT [facility] ABSOLUTE LYMPHOCYTES 1.73 1.30 - 3.20 10(3)/[facility] 09/13/2024 11:18 AM CDT [facility] ABSOLUTE MONOCYTES 0.54 0.20 - 1.00 10(3)/[facility] 09/13/2024 11:18 AM CDT [facility] ABSOLUTE EOSINOPHIL 0.25 0.00 - 0.40 10(3)/[facility] 09/13/2024 11:18 AM CDT [facility] ABSOLUTE BASOPHILS 0.04 0.00 - 0.10 10(3)/[facility] 09/13/2024 11:18 AM CDT [facility] ABSOLUTE IMMATURE GRANULOCYTE 0.04(H) 0.00 - 0.03 10 (3) mcL. 09/13/2024 11:18 AM CDT [facility] NRBC PER 100 WBC 0 09/14/19 25 11:18 AM CDT [facility] Blood Venipuncture / Unknown 09/13/2024 10:54 AM CDT 09/13/2024 10:54 AM CDT Melony Asif PAC HEMATOLOGY ORDERABLES Fin al Result [facility] [address] [place] [address] * (ABNORMAL) FREE KAPPA & LAMBDA LIGHT CHAINS SERUM (09/13/2024 10:54 AM CDT) Free Trimountain Lt Chn 26.34(H) 3.30 - 19.40 mg/L 09/15/2024 10:19 AM CDT [facility] Free Lambda Lt Chn 28.92(H) 5.71 - 26.30 mg/L 09/15/2024 10:19 AM CDT [facility] free toan pinto ratio 0.91 0.26 - 1.65 09/15/2024 10:19 AM CDT [facility] Blood Venipuncture / Unknown 09/13/2024 10:54 AM CDT 09/13/2024 10:54 AM CDT [facility] PAC CHEMISTRY ORDERABLES Donna l Result [facility] [address] [place] [address], * VITAMIN B12 (09/13/2024 10:54 AM CDT) Pathologist [facility] [place] VITAMIN B12 451 213 - 816 pg/mL 09/13/2024 12:02 PM CDT [facility] Blood Venipuncture / Unknown 09/13/2024 10:54 AM CDT 09/13/2024 10:54 AM CDT [facility] PAC CHEMISTRY ORDERABLES Donna l Result [facility] [address] [place] [address] * (ABNORMAL) IMMUNOFIXATION W/ ELECTROPHORESIS SERUM (09/13/2024 10:54 AM CDT) TOTAL PROTEIN 7.3 6.0 - 8.0 g/dL 09/15/2024 2:01 PM CDT [facility] % ALBUMIN 51.7(L) 55.8 - 66.7 % 09/15/2024 2:01 PM CDT [facility] ALBUMIN SERUM 3.8 2.5 - 5.4 g/dL 09/15/2024 2:01 PM CDT [facility] % ALPHA 1 GLOBULIN 3.2 2.9 - 4.9 % 09/15/2024 2:01 PM CDT [facility] ALPHA 1 0.2 0.2 - 0.4 g/dL 09/15/2024 2:01 PM CDT [facility] % ALPHA 2 GLOBULIN 12.2(H) 7.1 - 11.8 % 09/15/2024 2:01 PM CDT [facility] ALPHA 2 0.9 0.5 - 1.0 g/dL 09/15/2024 2:01 PM CDT [facility] % BETA 16.5(H) 8.4 - 13.1 % 09/15/2024 2:01 PM CDT [facility] BETA-GLOBULIN 1.2(H) 0.5 - 1.1 g/dL 09/15/2024 2:01 PM CDT [facility] % GAMMA GLOBULIN 16.4 11.1 - 18.8 % 09/15/2024 2:01 PM CDT [facility] GAMMA 1.2 0.7 - 1.5 g/dL 09/15/2024 2:01 PM CDT [facility] IMMUNOGLOBULIN G 1,113 552 - 1,631 mg/dL 09/15/2024 2:01 PM CDT [facility] IMMUNOGLOBULIN A 281 65 - 421 mg/dL 09/15/2024 2:01 PM CDT [facility] IMMUNOGLOBULIN M 140 33 - 293 mg/dL 09/15/2024 2:01 PM CDT [facility] INTERPRETATION SERUM No abnormal protein band is detected by serum protein electrophoresis. Serum immunofixation electrophoresis is negative for monoclonal immunoglobulins. Reviewed by Laura Nicholas, Ph.D. 09/15/2024 2:01 PM T [facility] A/G RATIO, SERUM 1.1 09/16/19 25 2:01 PM [facility] Blood Venipuncture / Unknown 09/13/2024 10:54 AM CDT 09/13/2024 10:54 AM CDT [facility] - 09/15/2024 2:01 PM CDT Reviewed by Terrance Ellsworth Jr., M.D. Melony Asif PAC CHEMISTRY ORDERABLES Donna l Result [facility] [address] [place] [address], * FERRITIN (09/13/2024 10:54 AM CDT) FERRITIN 31 5 - 204 ng/mL 09/13/2024 11:56 AM CDT [facility] Blood Venipuncture / Unknown 09/13/2024 10:54 AM CDT 09/13/2024 10:54 AM CDT Melony Asif PAC CHEMISTRY ORDERABLES Donna l Result Performing Organization Address City/[facility]/ZIP Co de Phone Number [facility] [address] [place] [address] * (ABNORMAL) CMP (COMPREHENSIVE METABOLIC PANEL) (09/13/2024 10:54 AM CDT) Only the most recent of2 resultswithin the time period is included. Pathologist [facility] [place] SODIUM 137 136 - 145 mmol/L 09/13/2024 11:40 AM CDT [facility] POTASSIUM 4.6 3.5 - 5.1 mmol/L 09/13/2024 11:40 AM CDT [facility] CHLORIDE 112(H) 98 - 107 mmol/L 09/13/2024 11:40 AM CDT [facility] CO2, VENOUS 16(L) 22 - 30 mmol/L 09/13/2024 11:40 AM CDT [facility] ANION GAP 13.6 <18.0 mmol/L 09/13/2024 11:40 AM CDT [facility] GLUCOSE 150(H) 70 - 99 mg/dL 09/13/2024 11:40 AM CDT [facility] BUN 24(H) 10 - 20 mg/dL 09/13/2024 11:40 AM CDT [facility] CREATININE, BLOOD 1.13(H) 0.60 - 1.00 mg/dL 09/13/2024 11:40 AM [facility] BUN/CREATININE RATIO 21(H) 12 - 20 ratio 09/13/2024 11:40 AM T [facility] TOTAL PROTEIN 7.7 6.0 - 8.0 g/dL 09/13/2024 11:40 AM [facility] ALBUMIN 4.3 3.5 - 5.0 g/dL 09/13/2024 11:40 AM [facility] A/G RATIO 1.3 1.0 - 2.2 09/13/2024 11:40 AM [facility] CALCIUM 10.5 8.7 - 10.5 mg/dL 09/13/2024 11:40 AM [facility] T BILI 0.3 0.2 - 1.2 mg/dL 09/13/2024 11:40 AM [facility] SGOT (AST) 34 <43 U/L 09/13/2024 11:40 AM [facility] SGPT (ALT) 26 <56 U/L 09/13/2024 11:40 AM [facility] ALKALINE PHOSPHATASE 88 40 - 150 U/L 09/13/2024 11:40 AM [facility] IS THE PATIENT REQUIRED TO BE FASTING? No 09/13/2024 11:40 AM [facility] GFR, ESTIMATED 57(L) >=60 09/13/2024 11:40 AM [facility] Comment: Creatinine Clearance is the preferred criteria for selecting drug dose adjustments in renally impaired patients. The GFR is provided as additional pertinent clinical information. GFR is reported in mL/min/1.73 sq m. Calculation based on the Chronic Kidney Disease Epidemiology Collaboration (CKD- EPI) equation refit without adjustment for race. GFR, EST. >60 >=60 025 11:40 AM [facility] GFR, EST. NONAFRICAN 50(L) >=60 09/13/2024 11:40 AM [facility] Blood Venipuncture / Unknown 09/13/2024 10:54 AM CDT 09/13/2024 10:54 AM CDT Melony Asif PAC CHEMISTRY ORDERABLES Donna l Result [facility] [address] [place] [address] * US LEFT DUPLEX LOWER EXTREMITY VEINS [...] Electronically signed by Milagros Morris D.O. PS: MOSES Report ID: [id number] Reading Location: [id number] Procedure Note Milagros Morris DO - 09/03/2024 [...] Milagros Morris D.O. PS: PS Report ID: [id number] Reading Location: [id number] IMPRESSION: 1. No lower extremity deep venous thrombosis. us Tani Biggs PAC IMG US ORDERABLES Final Resu lt * THYROID SCREEN WITH REFLEX (09/01/2024 3:21 PM CDT) Pathologist [facility] [place] TSH 2.167 0.300 - 5.000 mIU/L 09/02/2024 9:55 AM CDT [facility] Blood Venipuncture / Unknown 09/01/2024 3:21 PM CDT 09/01/2024 3:21 PM CDT us Tani Biggs PAC CHEMISTRY ORDERABLES Final R esult [facility] [address] [place] [address] * (ABNORMAL) LIPID PANEL (09/01/2024 3:21 PM CDT) CHOLESTEROL 151 <200 mg/dL 09/02/2024 9:31 AM CDT [facility] TRIGLYCERIDES 184(H) <150 mg/dL 09/02/2024 9:31 AM CDT [facility] HDL CHOLESTEROL 68 >40 mg/dL 9:31 AM CDT [facility] LDL 46 <130 mg/dL 09/02/2024 9:31 AM CDT [facility] VLDL 37 10 - 50 mg/dL 09/02/2024 9:31 AM CDT [facility] CHOL/HDL RATIO 2.2 0.0 - 4.4 09/02/2024 9:31 AM CDT [facility] NON-HDL CHOLESTEROL 83 <130 mg/dL 09/02/2024 9:31 AM CDT [facility] IS THE PATIENT REQUIRED TO BE FASTING? Yes 09/02/2024 9:31 AM CDT [facility] HAS THE PATIENT BEEN FASTING? Yes 09/02/2024 9:31 AM CDT [facility] Blood Venipuncture / Unknown 09/01/2024 3:21 PM CDT 09/01/2024 3:21 PM CDT us Tani Biggs PAC CHEMISTRY ORDERABLES Final R esult [facility] [address] [place] [address] * (ABNORMAL) BASIC METABOLIC PANEL W/ CALCIUM TOTAL (09/01/2024 3:21 PM CDT) SODIUM 138 136 - 145 mmol/L 09/02/2024 9:31 AM CDT [facility] POTASSIUM 4.9 3.5 - 5.1 mmol/L 09/02/2024 9:31 AM CDT [facility] CHLORIDE 106 98 - 107 mmol/L 09/02/2024 9:31 AM CDT [facility] CO2, VENOUS 26 22 - 30 mmol/L 09/02/2024 9:31 AM CDT [facility] ANION GAP 10.9 <18.0 mmol/L 09/02/2024 9:31 AM CDT [facility] GLUCOSE 108(H) 70 - 99 mg/dL 09/02/2024 9:31 AM CDT [facility] BUN 10 10 - 20 mg/dL 09/02/2024 9:31 AM CDT [facility] CREATININE, BLOOD 0.88 0.60 - 1.00 mg/dL 09/02/2024 9:31 AM CDT [facility] BUN/CREATININE RATIO 11(L) 12 - 20 ratio 09/02/2024 9:31 AM CDT [facility] CALCIUM 9.9 8.7 - 10.5 mg/dL 09/02/2024 9:31 AM CDT [facility] IS THE PATIENT REQUIRED TO BE FASTING? No 09/02/2024 9:31 AM CDT [facility] GFR, ESTIMATED >60 >=60 09/02/2024 9:31 AM CDT [facility] Comment: Creatinine Clearance is the preferred criteria for selecting drug dose adjustments in renally impaired patients. The GFR is provided as additional pertinent clinical information. GFR is reported in mL/min/1.73 sq m. Calculation based on the Chronic Kidney Disease Epidemiology Collaboration (CKD- EPI) equation refit without adjustment for race. GFR, EST. >60 >=60 025 9:31 AM CDT [facility] GFR, EST. NONAFRICAN >60 >=60 09/02/2024 9:31 AM CDT [facility] Blood Venipuncture / Unknown 09/01/2024 3:21 PM CDT 09/01/2024 3:21 PM CDT us Tani Biggs PAC CHEMISTRY ORDERABLES Final R esult Performing Organization Address City/[facility]/ZIP Co de Phone Number [facility] [address] [place] [address] * EXTERNAL PAIN REFERRAL (08/26/2024 12:00 AM CDT) 08/26/2024 us Phil Jacobo MD OUTPT REFERRALS EXT/INT Donna l Result SCAN * CT ABDOMEN PELVIS W/ CONTRAST [...] Yury Rowe M.D. KT: ARASH Report ID: [id number] Reading Location: [id number] Procedure Note Yuyr Rowe MD - 08/19/2024 EXAM DESCRIPTION: CT [...] Electronically signed by Yury Rowe M.D. KT: KT Report ID: [id number] Reading Location: [id number] IMPRESSION: 1. Fatty infiltration of the liver. 2. Postoperative changes partial right nephrectomy. 3. Nonobstructing bilateral renal stones. 4. Diverticulosis. No evidence of diverticulitis. us Zacarias Arellano MD IMG CT ORDERABLES Final R esult * Magnesium (08/18/2024 9:35 PM CDT) MAGNESIUM 2.3 1.6 - 2.6 mg/dL 08/18/2024 10:10 PM CDT [facility] Blood Venipuncture / Unknown 08/18/2024 9:35 PM CDT 08/18/2024 9:47 PM CDT Zacarias Arellano MD CHEMISTRY ORDERABLES Donna l Result Performing Organization Address City/[facility]/ZIP Co de Phone Number [facility] [address] [place] [address] * Lipase (08/18/2024 9:35 PM CDT) LIPASE 59 8 - 78 U/L 08/18/2024 10:10 PM CDT [facility] Blood Venipuncture / Unknown 08/18/2024 9:35 PM CDT 08/18/2024 9:47 PM CDT Zacarias Arellano MD CHEMISTRY ORDERABLES Donna l Result Performing Organization Address City/[facility] Co de Phone Number [facility] [address] [place] [address] * XR HAND 2 VIEWS RIGHT (08/17/2024 [...] Salima Smith M.D. TW: TW Report ID: [id number] Reading Location: [id number] Procedure Note Salima Smith MD - 08/17/2024 [...] Salima Smith M.D. TW: TW Report ID: [id number] Reading Location: [id number] IMPRESSION: 1. Polyarticular osteoarthritis. Known erosive change at the head of the 3rd metacarpal on prior study is less well demonstrated on the current examination. 2. No acute fracture or dislocation. 3. Mild soft tissue swelling about the distal 3rd digit. No radiopaque foreign body us Donna Frost APPLIANCE FIXER, UNDERWRITING TECHNICIAN IMG DIAGNOSTIC ORD ERABLES Final Result * (ABNORMAL) POCT GLYCOSYLATED HEMOGLOBIN (08/17/2024 3:40 PM CDT) HGB-A1C 8.7(A) 4 - 6 % Blood 08/17/2024 3:40 PM CDT David Salmon MD POINT OF CARE TESTING (MANUAL) F inal Result * HM DILATED EYE EXAM (12/01/2023 12:00 AM CDT) 12/01/2023 us Provider Scan PROCEDURE/MINOR SURGICAL ORDERAB LES Final [...] Pavithra Ledbetter M.D. FT: FT Report ID: [id number] Reading Location: [id number] Procedure Note Pavithra Pollock MD - 06/21/2023 [...] Pavithra Ledbetter M.D. FT: FT Report ID: [id number] Reading Location: [id number] IMPRESSION: Unchanged bilateral patchy ground-glass opacities, greatest in the left upper lobe. No focal consolidation or suspicious pulmonary nodule. Lung-RADS category 2S: Benign appearance or behavior. Finding other than a pulmonary nodule which is potentially clinically significant. Recommendation: Low dose CT of chest in 3 months. us Belkis Mcnair APRN, CNP IMG CT ORDERABL ES Final Result * HEPATITIS C ANTIBODY (08/19/2022 12:26 PM CDT) hepatitis C antibody 0.07 <1 S/CO [facility] ARCH [id number] B 08/19/2022 9:49 PM CDT [facility] Comment: Signal/Cutoff ratio < 0.79 is Nondetected Signal/Cutoff ratio 0.80-0.99 is Grayzone Signal/Cutoff ratio > 0.99 is Detected Supplemental assays are recommended if signal/cutoff ratio is >/=1.00. Signal/cutoff ratio result >/= 5.00 is 97% predictive of positivity for recombinant immunoblot assay (RIBA) and will be reported to the [place] Department of Public Health as required. Blood Venipuncture / Unknown 08/19/2022 12:26 PM CDT 08/19/2022 12:38 PM CDT us Tarsha Fernandez MD CHEMISTRY ORDERABLES Final Res ult [facility] [address] [place] [address], [place] * YAZAN SCREENING BILATERAL DIGITAL W [...] Comparison is made to exam dated: 02/16/2020 [facility]. BREAST TISSUE:There are scattered fibroglandular densities in [...] exam. Electronically signed by: Solange huynh/jeff:06/19/2022 16:18:35 Child Development Assistant(s): RT Tawny(R)(M), [facility] letter sent: Normal Exam Reading location: [facility] BI-RADS: 1 Negative Procedure Note Solange Evangelista [...] Comparison is made to exam dated: 02/16/2020 [facility]. BREAST TISSUE:There are scattered fibroglandular densities in [...] next screening exam. Electronically signed by: Solange huynh/penrad:06/19/2022 16:18:35 Child Development Assistant(s): Hue Yao, RT(R)(M), [facility] letter sent: Normal Exam Reading location: [facility] BI-RADS: 1 Negative Emilia Tang MD IMNancy MAMMO ORDERABLES Final R esult * PATHOLOGY CYTOLOGY DEBIT AGENT (09/26/2021 9:23 AM CDT) SPECIMEN ADEQUACY Satisfactory for evaluation. Endocervical/transf ormation zone component is absent. 09/28/2021 9:05 AM CDT [facility] DESCRIPTIVE DIAGNOSIS NEGATIVE FOR INTRAEPITHELIAL LESIONS OR MALIGNANCY. 09/28/2021 9:05 AM CDT [facility] at 0905 CDT OTHER FINDINGS Fungal organisms present, morphologically consistent with Kristen species. 09/28/2021 9:05 AM CDT [facility] HPV Reflex if ASCUS? Yes 09/28/2021 9:05 AM CDT [facility] Automated Examination Analysis of this sample has been assisted by an automated imaging and review system ([employer] Imaging System, [employer], [place], [place]). This case is further evaluated and finalized by a blasting coal miner and/or pathologist. 09/28/2021 9:05 AM CDT [facility] Disclaimer The PAP smear is a screening [...] unless clinically indicated. 09/28/2021 9:05 AM CDT [facility] Other SPECIMEN FROM CERVIX OR VAGINA / Unknown Non-Phlebotomy Collection / Unknown 09/26/2021 9:23 AM CDT 09/26/2021 9:23 AM CDT Jackeline Dimas APRN, CNP PATHOLOGY/CYTOLOGY MYLENE HAMMER Final Result [facility] [address] [place] [address], [place] from Last 3 Months or Most Recently Relevant to Health Maintenance Insurance MEDICARE C [employer] MEDICARE C [employer] Advance Directives Documents on File Type Date Recorded Patient Retort Pre Cooker Expl anation Power of Director Of Direct Marketing for Health Care 05/23/2021 2:13 PM POA-HC 05/23/21 Advance Care Planning Discussion 05/23/2021 2:13 PM ACP Discussion Recor d/ 05/23/21 * Full Code (Latest Code Status [...] measures to stabilize the patient. Care Teams Histology Specialist Relationship Specialty Start Date End Date Tani Biggs PAC [address] [place] [address] PCP - General Physician Outboard Motorboat Rigger 05/31/24 Phil Jacobo MD [address] [place] [address] Consulting Physician Neurology 03/07/21 Rajiv Mccormack NP [address] [place] [address] Nurse Practitioner Gastroenterology 03/07/21 Alize Acosta, APPLIANCE FIXER, UNDERWRITING TECHNICIAN [address] [place] [address] [facility] (VAC) UROLOGY SURGEON Advanced Practice Nurse 08/30/21 David Salmon MD [address] [phone] Consulting Physician Endocrinology 01/15/22 Maurilio Farley MD [address] [facility] [address] Consulting Physician Colon and Rectal Surgery 09/20/22 Dom Quiñonez MD [address] [place] [address] Consulting Physician Pulmonary Disease 11/19/21 Rachelle Nava APRN, PLANE TENDER [address] [place] [address] Nurse Practitioner Advanced Practice Nurse 07/19/22 Sharri Gaspar MD 2 [facility] [place] [address] [address] Consulting Physician Cardiology 04/26/24 Amber Aldrich APRN, UNDERWRITING TECHNICIAN [address] [place] [phone] Nurse Practitioner Cardiology 07/30/24
--- OUTSIDE RECORDS SUMMARY | 2024-11-11 14:45 | XMS_ITS | Encounter Summary ---
Author Organization [facility] Address [address] [place] [address] Phone Care Team Providers Care Director Of Alumni Relations Name Role Phone Phil Jacobo MD Unavailable [phone] Rajiv Mccormack NP Unavailable Unavailable Alize Acosta APRN, MIDDLE SCHOOL TUTOR Unavailable [phone] Dayo Chaney MD Unavailable Juanita Hauser RN Unavailable UnavailDavid Alexandre MD Unavailable Maurilio Farley MD Unavailable Rebeka Trinidad MD Primary Care Provider + [phone] Dom Quiñonez MD Unavailable Rachelle Nava ASSISTED LIVING MANAGER, PAINTER Unavailable + [phone] Irais Naylor ASSISTED LIVING MANAGER, MIDDLE SCHOOL TUTOR Unavailable + [phone] Lorri Leo ASSISTED LIVING MANAGER, MIDDLE SCHOOL TUTOR Primary Care Provider + [phone] Rebeka Trinidad MD Primary Care Provider + [phone] Lorri Leo ASSISTED LIVING MANAGER, MIDDLE SCHOOL TUTOR Primary Care Provider + [phone] Sharri Gaspar MD Unavailable Tani Biggs [facility] Primary Care Provider + [phone] Amber Aldrich APRN, CNP Unavailable Reason for Visit * Reason Comments Medication Refill Encounter Details Date Type Department Care Team (Late st Contact Info) Description 08/05/2023 Refill [facility] - Primary Care - [place] [address] [place] [address] Rebeka Trinidad MD [address] [place] [address] Medication Refill Social History Tobacco Use Types Packs/Day Years Used Date Smoking Tobacco: Former Cigarettes 1 37.1 1 985 - 04/12/2021 Smokeless Tobacco: Never Alcohol Use Standard Drinks/Week Comments Not Currently 0 (1 standard drink = 0.6 oz pur e alcohol) last drank 2020 [facility] Utilities Answer Date Recorded In the past 12 months has [employer] electric, gas, oil, or water [employer] threatened to shut off services in your home? No 03/24/2023 Social Connection and Isolation Panel Answer Date Recorded In a typical week, how many times do you talk on the phone with family, friends, or neighbors? Once a week 03/24/2023 How often do you get togethe r with friends or relatives? Never 03/24/2023 How often do you attend [facility] or [facility] services? More than 4 times per year 03/24/2023 Do you belong to any clubs o r organizations such as holiness groups, unions, fraternal or athletic groups, or [...] Total Score - Questions 1-9 18 10/10 [facility] Occupat ional [facility] - Occupational Stress Questionnaire Answer Date [...] place to sleep or slept in a snf (including now)? 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 Not on file [...] Dept 06/04/23 Office Visit Rebeka Trinidad MD [facility] 05/09/23 Office Visit Rebeka Trinidad MD [facility] 03/26/23 Office Visit Rebeka Trinidad MD [facility] 02/06/23 Office Visit Emilia Tang MD [facility] Showing recent visits within past 182 [...] [facility] [address] [place] [address] Amber Aldrich APRN, MIDDLE SCHOOL TUTOR [address] [place] [address] Discharge Disposition: Discharged to home or Selfcare 11/12/2024 9:15 AM CDT [facility] 1 [place] [address] Amber Aldrich APRN, MIDDLE SCHOOL TUTOR [address] [place] [address] Discharge Disposition: Discharged to home or Selfcare 11/12/2024 9:30 AM CDT [facility] [address] [place] [address] Amber Aldrich APRN, MIDDLE SCHOOL TUTOR [address] [place] [address] 11/12/2024 10:00 AM CDT Appointment [facility] Nuclear Medicine 1 [place] [address] Amber Aldrich APRN, MIDDLE SCHOOL TUTOR [address] [place] [address] Discharge Disposition: Discharged to home or Selfcare 11/17/2024 2:00 PM CDT Telemedicine [facility] [address] [place] [address] Alize Acosta, ASSISTED LIVING MANAGER, MIDDLE SCHOOL TUTOR [address] [place] [address] 11/18/2024 3:45 PM CDT Office Visit [facility] - Endocrinology - [place] [address]2 [place] [address] David Salmon MD #[address] [facility] [facility] [address] [place] [address] 01/03/2025 11:30 AM CDT Office Visit [facility] - Neurology - [place] [address]2 [place] [address] Rachelle Nava, ASSISTED LIVING MANAGER, PAINTER [address] [place] [address] 03/04/2025 3:10 PM SUPERVISOR STAVE CUTTING Lab [facility] Primary Care - [place] [address] [place] [address] [facility] 03/04/2025 3:30 PM SUPERVISOR STAVE CUTTING Office Visit [facility] Primary Care - [place] [address] [place] [address] Tani Biggs, ESTRELLITA [address] [place] [address] 03/17/2025 1:30 PM SUPERVISOR STAVE CUTTING [facility] [address] [place] [address] Melony Asif, PAC [address] [place] [address] Discharge Disposition: Discharged to home or Selfcare 03/25/2025 1:20 PM SUPERVISOR STAVE CUTTING [facility] [address] [place] [address] Melony Asif, PAC [address] [place] [address] Discharge Disposition: Discharged to home or Selfcare 04/25/2025 2:00 PM SUPERVISOR STAVE CUTTING Office Visit [facility] - Cardiology - [place] [address] [place] [address] Laisha Griffin, DO [address] [address] 07/18/2025 1:00 PM CDT Office Visit [facility] - Pulmonology & Sleep Medicine - [place] [address] [place] [address] Dom Quiñonez MD [address] [place] [address] documented as of this encounter Goals Goal Patient Goal Type Associated Problems Recent Progress Patient-Stated? Author ACTIVITY Activity No change(08/08 2:42 PM CDT) Yes Maritza Vanegas, RN Note: Bonny will walk five days a week. Goal Reviewed with: Bonny Readiness to change: Department associated with goal: [facility] Steps to achieve goal: [...] making a change Department associated with goal: [facility] Steps to achieve [...] Depression Depression Improving(0 03/15/2022 2:27 PM SUPERVISOR STAVE CUTTING) No Breanne Saldana LCSW Note: Goal/Objective: Decrease [...] to change Department associated with goal: [facility] Steps to achieve goal: [...] 04/18/2024 04/18/2024 04/18/2024 10:4 7 PM SUPERVISOR STAVE CUTTING Respiratory Rule-Out 05/06/2024 05/06/2024 025 9:20 AM SUPERVISOR STAVE CUTTING COVID - 19 05/06/2024 05/06/2024 05/06/2024 9:19 AM SUPERVISOR STAVE CUTTING Assessment Noted Time PHQ-9 Depression Total Score: 18 023 9:24 AM CDT documented as of this encounter Care Teams Director Of Alumni Relations Relationship Specialty Start Date End Date Rebeka Trinidad MD [address] [place] [address] PCP - General Family Medicine 03/26/23 03/29/24 Lorri Leo APRN, MIDDLE SCHOOL TUTOR [address] [place] [address] PCP - General Certified Nurse Practitioner 03/30/24 04/20/24 Rebeka Trinidad MD [address] [place] [address] PCP - General Family Medicine 04/21/24 04/21/24 Lorri Leo APRN, MIDDLE SCHOOL TUTOR [address] [place] [address] PCP - General Certified Nurse Practitioner 04/22/24 05/30/24 Tani Biggs, [facility] [address] [place] [address] PCP - General Physician Shipping And Receiving Material Handler 05/31/24 Phil Jacobo MD [address] [place] [address] Consulting Physician Neurology 03/07/21 Rajiv Mccormack, KELI [address] [place] [address] Nurse Practitioner Gastroenterology 03/07/21 Alize Acosta APRN, MIDDLE SCHOOL TUTOR [address] [place] [place] [address] Virtual [facility] (VAC) SECURITY AMBASSADOR Advanced Practice Nurse 08/30/21 Dayo Chaney MD [address] [place] [address] Transportation Department Supervisor Cardiovascular Disease - Cardiology 09/20/21 02/12/24 Juanita Mercado, [place] Registered Nurse Cardiology 12/24/21 02/12/24 David Salmon MD #[address] [address] Consulting Physician Endocrinology 01/15/22 Maurilio Farley MD #[address] [address] Consulting Physician Colon and Rectal Surgery 09/20/22 Dom Quiñonez MD #[address] [place] [address] Consulting Physician Pulmonary Disease 11/19/21 Rachelle Nava APRN, PAINTER [address] [place] [address] Nurse Practitioner Advanced Practice Nurse 07/19/22 Irais Naylor APRN, MIDDLE SCHOOL TUTOR #[address] [address] Nurse Practitioner Cardiology 06/27/23 07/29/24 Sharri Gaspar MD [address] [address] Consulting Physician Cardiology 04/26/24 Amber Aldrich APRN, MIDDLE SCHOOL TUTOR [address] [place] [address] Nurse Practitioner Cardiology 07/30/24 documented as of this encounter
--- OUTSIDE RECORDS SUMMARY | 2024-11-11 14:45 | XMS_ITS | Encounter Summary ---
Author Organization [facility] Address [address] [place] [address] Phone Care Team Providers Care Conversion Worker Name Role Phone Jackeline Dimas CLIENT DELIVERY MANAGER, ROUGH RICE TENDER Primary Care Provider Fiona Martinez VP PATIENT Unavailable Unavailab Phil Ellis MD Unavailable [phone] Rajiv Mccormack NP Unavailable Unavailable Renita Quezada RN Unavailable Unavailable Alize Acosta CLIENT DELIVERY MANAGER, ROUGH RICE TENDER Unavailable [phone] Dayo Chaney MD Unavailable Juanita Hauser RN Unavailable Unavaila David Martinez MD Unavailable Emilia Tang MD Primary Care Provider [phone] Maurilio Farley MD Unavailable Candida Turner MD Unavailable Rebeka Trinidad MD Primary Care Provider + [phone] Dom Quiñonez MD Unavailable Rachelle Nava CLIENT DELIVERY MANAGER, ACUTE CARE REGISTERED NURSE Unavailable + [phone] Irais Naylor CLIENT DELIVERY MANAGER, ROUGH RICE TENDER Unavailable [phone] AhmetAngélicamando Littlejohn CLIENT DELIVERY MANAGER, ROUGH RICE TENDER Primary Care Provider + [phone] Rebeka Trinidad MD Primary Care Provider [phone] Lorri Leo CLIENT DELIVERY MANAGER, ROUGH RICE TENDER Primary Care Provider [phone] Sharri Gaspar MD Unavailable Tani Biggs [facility] Primary Care Provider + [phone] Amber Aldrich CLIENT DELIVERY MANAGER, ROUGH RICE TENDER Unavailable Reason for Visit * Reason Comments Medication Refill Encounter Details Date Type Department Care Team (Late Contact Info) Description 10/12/2020 Refill [facility] Primary Care - [place] [address] [place] [address] Jackeline Dimas, CLIENT DELIVERY MANAGER, [facility] [address] [place] [address] Medication Refill Social History Tobacco [...] 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 on file Not [...] Info) Description 11/12/2024 9:00 AM CDT [facility] [address] [place] [address] Amber Aldrich APRN, ROUGH RICE TENDER [address] [place] [address] Discharge Disposition: Discharged to home or Selfcare 11/12/2024 9:15 AM CDT [facility] [address] [place] [address] Amber Aldrich APRN, ROUGH RICE TENDER [address] [place] [address] Discharge Disposition: Discharged to home or Selfcare 11/12/2024 9:30 AM CDT Hospital [facility] Stress [address] [place] [address] Amber Aldrich APRN, ROUGH RICE TENDER [address] [place] [address] 11/12/2024 10:00 AM CDT Appointment [facility] Nuclear Medicine [address] [place] [address] Amber Aldrich APRN, ROUGH RICE TENDER [address] [place] [address] Discharge Disposition: Discharged to home or Selfcare 11/17/2024 2:00 PM CDT Telemedicine [facility] [address] [place] [address] Alize Acosta, CLIENT DELIVERY MANAGER, ROUGH RICE TENDER [address] [place] [address] 11/18/2024 3:45 PM CDT Office Visit [facility] - Endocrinology - [place] [address] [facility] [address] David Salmon MD #2 [facility] [address] [place] [address] 01/03/2025 11:30 AM CDT Office Visit [facility] - Neurology - [place] [address]2 [place] [address] Rachelle Nava, CLIENT DELIVERY MANAGER, ACUTE CARE REGISTERED NURSE #2 [facility] [place] [address] 03/04/2025 3:10 PM HAND ASSEMBLER FOR PULLER OVER Lab [facility] Primary Care - [place] [address] [place] [address] [facility] 03/04/2025 3:30 PM HAND ASSEMBLER FOR PULLER OVER Office Visit [facility] Primary Care - [place] [address] [place] [address] Tani Biggs, ESTRELLITA [address] [place] [address] 03/17/2025 1:30 PM HAND ASSEMBLER FOR PULLER OVER [facility] [address] [place] [address] Melony Asif, PAC [address] [place] [address] Discharge Disposition: Discharged to home or Selfcare 03/25/2025 1:20 PM HAND ASSEMBLER FOR PULLER OVER [facility] [address] [place] [address] Melony Asif, PAC [address] [place] [address] Discharge Disposition: Discharged to home or Selfcare 04/25/2025 2:00 PM HAND ASSEMBLER FOR PULLER OVER Office Visit [facility] - Cardiology - [place] [address] [place] [address] Laisha Griffin, DO [address] [address] 07/18/2025 1:00 PM CDT [facility] - [place] #2 [place] [address] Dom Quiñonez MD #[address] [place] [address] documented as of this encounter Visit Diagnoses Not on filedocumented in this encounter Additional Health Concerns Infection Onset Date Last Indicated Resolved Time COVID - 19 01/08/2021 01/08/2021 01/28/2021 12:1 6 AM HAND ASSEMBLER FOR PULLER OVER COVID - 19 03/12/2021 03/12/2021 04/01/2021 12:1 6 AM HAND ASSEMBLER FOR PULLER OVER COVID - 19 12/15/2021 12/15/2021 12/15/2021 7:26 PM CDT COVID - 19 Confirmed 12/15/2021 12/15/2021 022 12:16 AM CDT COVID - 19 04/18/2024 04/18/2024 04/18/2024 10:4 7 PM HAND ASSEMBLER FOR PULLER OVER Respiratory Rule-Out 05/06/2024 05/06/2024 025 9:20 AM HAND ASSEMBLER FOR PULLER OVER COVID - 19 05/06/2024 05/06/2024 05/06/2024 9:19 AM HAND ASSEMBLER FOR PULLER OVER Assessment Noted Time PHQ-9 Depression Total Score: 0 09/01/19 20 11:58 AM CDT documented as of this encounter Care Teams Conversion Worker Relationship Specialty Start Date End Date Jackeline Dimas, CLIENT DELIVERY MANAGER, ROUGH RICE TENDER [address] [place] [address] PCP - General Advanced Practice Nurse 07/31/17 Emilia Tang MD [address] [place] [address] PCP - General Family Medicine 06/07/22 03/25/23 Rebeka Trinidad MD [address] [place] [address] PCP - General Family Medicine 03/26/23 03/29/24 Lorri Leo APRN, ROUGH RICE TENDER [address] [place] [address] PCP - General Certified Nurse Practitioner 03/30/24 04/20/24 Rebeka Trinidad MD [address] [place] [address] PCP - General Family Medicine 04/21/24 04/21/24 Lorri Leo CLIENT DELIVERY MANAGER, ROUGH RICE TENDER [address] [place] [address] PCP - General Certified Nurse Practitioner 04/22/24 05/30/24 Tani Biggs, PAC [address] [place] [address] PCP - General Physician Applications Support Engineer 05/31/24 Fiona Martinez, VP PATIENT [place] Hoop Riveting Machine Operator Helper 03/01/21 08/23/21 Phil Jacobo MD #[address] [place] [address] Consulting Physician Neurology 03/07/21 Rajiv Mccormack, KLEI [address] [place] [address] Nurse Practitioner Gastroenterology 03/07/21 Renita Quezada RN [place] Hoop Riveting Machine Operator Helper 05/09/21 08/23/21 Alize Acosta APRN, ROUGH RICE TENDER [address] [place] [address] Virtual Advanced Care (VAC) AUTOMOBILE ASSEMBLY SUPERVISOR Advanced Practice Nurse 08/30/21 Dayo Chaney MD [address] [place] [address] Dinkey Brakeman Cardiovascular Disease - Cardiology 09/20/21 02/12/24 Juanita Mercado RN [place] Registered Nurse Cardiology 12/24/21 02/12/24 David Salmon MD #[address] [address] Consulting Physician Endocrinology 01/15/22 Maurilio Farley MD #[address] [address] Consulting Physician Colon and Rectal Surgery 09/20/22 PhysicianCandida MD [address] [place], [place] [address] Family Medicine 01/25/22 03/18/23 Dom Quiñonez MD #2 [place] [address] Consulting Physician Pulmonary Disease 11/19/21 Rachelle Nava APRN, ACUTE CARE REGISTERED NURSE #[address] [place] [address] Nurse Practitioner Advanced Practice Nurse 07/19/22 Irais Naylor APRN, ROUGH RICE TENDER [address] [facility] [place] [address] [place] [address] Nurse Practitioner Cardiology 06/27/23 07/29/24 Sharri Gaspar MD [address] [place] [address] Consulting Physician Cardiology 04/26/24 Amber Aldrich APRN, ROUGH RICE TENDER [address] [place] [address] Nurse Practitioner Cardiology 07/30/24 documented as of this encounter
--- OUTSIDE RECORDS SUMMARY | 2024-11-11 14:46 | XMS_ITS | Encounter Summary ---
Author Organization [facility] Address [address] [place] [address] Phone Care Team Providers Care Associate Professor Of Mathematics Name Role Phone Jackeline Dimas PROCESSING ASSISTANT, TISSUE TECHNICIAN Primary Care Provider Phil Jacobo MD Unavailable [phone] Rajiv Mccormack NP Unavailable Unavailable Alize Acosta PROCESSING ASSISTANT, TISSUE TECHNICIAN Unavailable [phone] Dayo Chaney MD Unavailable Juanita Hauser RN Unavailable UnavailDavid Alexandre MD Unavailable Emilia Tang MD Primary Care Provider [phone] Maurilio Farley MD Unavailable Physician, Candida Davis MD Unavailable Rebeka Trinidad MD Primary Care Provider + [phone] Dmo Quiñonez MD Unavailable Rachelle Nava PROCESSING ASSISTANT, AUTOMATIC HEMMER Unavailable + [phone] Irais Naylor PROCESSING ASSISTANT, TISSUE TECHNICIAN Unavailable + [phone] Lorri Leo PROCESSING ASSISTANT, TISSUE TECHNICIAN Primary Care Provider [phone] Rebeka Trinidad MD Primary Care Provider + [phone] Ahmet Lorri M PROCESSING ASSISTANT, [facility] Primary Care Provider + [phone] Sharri Gaspar MD Unavailable Kalyan Tani B [facility] Primary Care Provider [phone] Amber Aldrich APRN, [facility] Unavailable Reason for Visit * Reason Onset Date Comments Medication Refill 04/19/2022 Encounter Details Date Type Department Care Team (Late st Contact Info) Description 04/19/2022 Refill [facility] Advanced Care [address] [place] [phone] Meli Rosenthal, RN [place] Medication Refill Social [...] 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 No / Unsure 04/11/2022 12:32 PM AIRVEYOR OPERATOR documented as of this encounter Miscellaneous Notes * Telephone Encounter - Meli Rosenthal, RN - 04/19/2022 4:27 PM AIRVEYOR OPERATOR Patient requesting refill of hydroxyzine 25mg. Last filled on 03/23/22 for #60 with 0 refills. Last routine visit: 04/11/22 with [facility]testin02/23/22 Upcoming visits: none currently scheduled with [facility] PROCESSING ASSISTANT Refill pending for your review and approval. All questions and concerns were answered. Will await recommendations. EYOR OPERATOR documented in this encounter Plan of Treatment Upcoming Encounters Date Type Department Care Team (Latest Contact Info) Description 11/12/2024 9:00 AM CDT [facility] Medicine [address] [place] [address] Amber Aldrich APRN, TISSUE TECHNICIAN [address] [place] [address] Discharge Disposition: Discharged to home or Selfcare 11/12/2024 9:15 AM CDT Appointment [facility] Nuclear Medicine [address] [place] [address] Amber Aldrich APRN, TISSUE TECHNICIAN [address] [place] [address] Discharge Disposition: Discharged to home or Selfcare 11/12/2024 9:30 AM CDT Hospital Encounter [facility] Cardiology Stress [address] [place] [address] Amber Aldrich APRN, TISSUE TECHNICIAN [address] [place] [address] 11/12/2024 10:00 AM CDT Appointment [facility] Nuclear Medicine [address] [place] [address] Amber Aldrich APRN, TISSUE TECHNICIAN [address] [place] [address] Discharge Disposition: Discharged to home or Selfcare 11/17/2024 2:00 PM CDT Telemedicine [facility] Advanced Care [address] [place] [phone] Alize Acosta, PROCESSING ASSISTANT, TISSUE TECHNICIAN [address] [place] [address] 11/18/2024 3:45 PM CDT Office Visit [facility] Endocrinology - [place] [address] [place] [address] David Salmon MD #[address] [phone] 01/03/2025 11:30 AM CDT Office Visit [facility] Neurology - [place] [address] [place] [address] Rachelle Nava, PROCESSING ASSISTANT, AUTOMATIC HEMMER [address] [place] [address] 03/04/2025 3:10 PM AIRVEYOR OPERATOR Lab [facility] - [place] [address] [place] [address] [facility] 03/04/2025 3:30 PM AIRVEYOR OPERATOR Office Visit [facility] Primary [facility] - [place] [address] [place] [address] Tani Biggs PAC [address] [place] [address] 03/17/2025 1:30 PM AIRVEYOR OPERATOR Lab [facility] - Cancer Center Oncology Services [address] [place] [phone] Melony Asif August, PAC [address] [place] [address] Discharge Disposition: Discharged to home or Selfcare 03/25/2025 1:20 PM AIRVEYOR OPERATOR Office Visit [facility] Cancer Center Oncology Services [address] [facility] [place] [phone] Melony Asif Stacey, PAC [address] [place] [address] Discharge Disposition: Discharged to home or Selfcare 04/25/2025 2:00 PM AIRVEYOR OPERATOR Office Visit [facility] - Cardiology - [place] [address] [place] [address] Laisha Griffin, DO [address] [address] 07/18/2025 1:00 PM CDT Office Visit [facility] - Pulmonology & Sleep Medicine [facility] #[address] [place] [address] Dom Quiñonez MD [address] [place] [address] documented as of this encounter Goals Goal [...] as recommended. Depression Depression Improving( 2:27 PM AIRVEYOR OPERATOR) No Breanne Saldana LCSW Note: Goal/Objective: [...] 19 04/18/2024 04/18/2024 04/18/2024 10:4 7 PM AIRVEYOR OPERATOR Respiratory Rule-Out 05/06/2024 05/06/2024 025 9:20 AM AIRVEYOR OPERATOR COVID - 19 05/06/2024 05/06/2024 05/06/2024 9:19 AM AIRVEYOR OPERATOR Assessment Noted Time PHQ-9 Depression Total Score: 24 022 3:31 PM AIRVEYOR OPERATOR documented as of this encounter Care Teams Associate Professor Of Mathematics Relationship Specialty Start Date End Date Jackeline Dimas, PROCESSING ASSISTANT, TISSUE TECHNICIAN [address] [place] [address] PCP - General Advanced Practice Nurse 07/31/17 Emilia Tang MD [address] [place] [address] PCP - General Family Medicine 06/07/22 03/25/23 Rebeka Trinidad MD [address] [place] [address] PCP - General Family Medicine 03/26/23 03/29/24 Lorri Leo PROCESSING ASSISTANT, TISSUE TECHNICIAN [address] [place] [address] PCP - General Certified Nurse Practitioner 03/30/24 04/20/24 Rebeka Trinidad MD [address] [place] [address] PCP - General Family Medicine 04/21/24 04/21/24 Lorri Leo PROCESSING ASSISTANT, TISSUE TECHNICIAN [address] [place] [address] PCP - General Certified Nurse Practitioner 04/22/24 05/30/24 Tani Biggs, PAC [address] [place] [address] PCP - General Physician Proposal Review Analyst 05/31/24 Phil Jacobo MD #[address] [place] [phone] Consulting Physician Neurology 03/07/21 Rajiv Mccormack, KELI [address] [place] [address] Nurse Practitioner Gastroenterology 03/07/21 Alize Acosta, PROCESSING ASSISTANT, TISSUE TECHNICIAN [address] [place] [address] Virtual Advanced Care (VAC) PARTS CHASER Advanced Practice Nurse 08/30/21 Dayo Chaney MD [address] [place] [address] Round Cutter Operator Cardiovascular Disease - Cardiology 09/20/21 02/12/24 Juanita Mercado RN [place] Registered Nurse Cardiology 12/24/21 02/12/24 David Salmon MD #[address] [phone] Consulting Physician Endocrinology 01/15/22 Maurilio Farley MD #[address] [address] Consulting Physician Colon and Rectal Surgery 09/20/22 Physician, Candida Davis MD [address] [place] [address] Family Medicine 01/25/22 03/18/23 Dom Quiñonez MD #[address] [place] [address] Consulting Physician Pulmonary Disease 11/19/21 Rachelle Nava APRN, AUTOMATIC HEMMER #[address] [place] [address] Nurse Practitioner Advanced Practice Nurse 07/19/22 Irais Naylor APRN, TISSUE TECHNICIAN #2 [facility] [address] [place] [address] Nurse Practitioner Cardiology 06/27/23 07/29/24 Sharri Gaspar MD 2 [facility] [place] [facility], [place]. [address] [place] [address] Consulting Physician Cardiology 04/26/24 Amber Aldrich APRN, TISSUE TECHNICIAN [address] [place] [address] Nurse Practitioner Cardiology 07/30/24 documented as of this encounter
--- OUTSIDE RECORDS SUMMARY | 2024-11-11 14:46 | XMS_ITS | Encounter Summary ---
Author Organization [facility] Address [address] [place] [address] Phone Care Team Providers Care Punchboard Assembler Name Role Phone Phil Jacobo MD Unavailable [phone] Rajiv Mccormack NP Unavailable Unavailable Alize Acosta MICROFILMER, ACID CUTTER Unavailable David Salmon MD Unavailable Maurilio Farley MD Unavailable Dom Quiñonez MD Unavailable Rachelle Nava MICROFILMER, SCHEDULE CHECKER Unavailable + [phone] Irais Naylor MICROFILMER, ACID CUTTER Unavailable + [phone] Rebeka Trinidad MD Primary Care Provider + [phone] Lorri Leo MICROFILMER, ACID CUTTER Primary Care Provider + [phone] Sharri Gaspar MD Unavailable Tani Biggs Primary Care Provider [phone] Amber Aldrich MICROFILMER, ACID CUTTER Unavailable Encounter Details Date Type Department Care Team (Late st Contact Info) Description 04/21/2024 Telephone [facility] - Cancer Center Oncology Services [address] [place] [address] Melony Asif Stacey, PAC [address] [place] [address] Social History Tobacco Use Types Packs/Day Years Used Date Smoking Tobacco: Every Day Cigarettes 1 37.1 Started: 1984; Last attempted to quit: 04/12/2021 Smokeless Tobacco: Never Alcohol Use Standard Drinks/Week Comments Not Currently 0 (1 standard drink = 0.6 oz pur e alcohol) Last drink in 2020 [facility] Utilities Answer Date Recorded In the [...] often do you attend chur ch or spiritism services? 1 to 4 times per year [...] Score - Questions 1-9 19 /0 06/2024 [facility] - Occupational Stress Questionnaire Answer Date [...] place to sleep or slept in a alf (including now)? No 03/24/2023 Housing Stability Vital [...] time in the past 12 m [facility], were you homeless or living in a alf (including now)? 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 I reached out to the patient after the PA reviewed her chart informing her to please complete ordered labs. The patient will contact the office to schedule a follow up 3-5 days after lab work. E GAME PROTECTOR documented in this encounter Plan of Treatment Upcoming Encounters Date Type Department Care Team (Latest Contact Info) Description 11/12/2024 9:00 AM CDT Appointment [facility] Nuclear Medicine [address] [place] [address] Amber Aldrich APRN, ACID CUTTER [address] [place] [address] Discharge Disposition: Discharged to home or Selfcare 11/12/2024 9:15 AM CDT Appointment [facility] Nuclear Medicine [address] [place] [address] Amber Aldrich APRN, ACID CUTTER [address] [place] [address] Discharge Disposition: Discharged to home or Selfcare 11/12/2024 9:30 AM CDT Hospital Encounter [facility] Cardiology Stress [address] [place] [address] Amber Aldrich APRN, ACID CUTTER [address] [place] [address] 11/12/2024 10:00 AM CDT Appointment [facility] Nuclear Medicine [address] [place] [address] Amber Aldrich APRN, ACID CUTTER [address] [place] [address] Discharge Disposition: Discharged to home or Selfcare 11/17/2024 2:00 PM CDT Telemedicine [facility] [address] [place] [address] Alize Acosta APRN, ACID CUTTER [address] [place] [address] 11/18/2024 3:45 PM CDT Office Visit [facility] Medical [facility] - Endocrinology - [place] [address] [place] [address] David Salmon MD #[address] [address] 01/03/2025 11:30 AM CDT Office Visit [facility] - Neurology - [place] [address] [place] [address] Rachelle Nava, MICROFILMER, SCHEDULE CHECKER [address] [place] [address] 03/04/2025 3:10 PM STATE GAME PROTECTOR Lab [facility] Primary Care - [place] [address] [place] [phone] [place] [facility] 03/04/2025 3:30 PM STATE GAME PROTECTOR Office Visit [facility] Primary Care - [place] [address] [place] [address] Tani Biggs, [facility] [address] [place] [address] 03/17/2025 1:30 PM STATE GAME PROTECTOR Lab [facility] Oncology Services [address] [place] [address] Melony Asif, PAC [address] [place] [address] Discharge Disposition: Discharged to home or Selfcare 03/25/2025 1:20 PM STATE GAME PROTECTOR Office Visit [facility] Oncology Services [address] [place] [address] Melony Asif, PAC [address] [place] [address] Discharge Disposition: Discharged to home or Selfcare 04/25/2025 2:00 PM STATE GAME PROTECTOR Office Visit [facility] - Cardiology - [place] [address] [place] [address] Laisha Griffin, DO [address] [address] 07/18/2025 1:00 PM CDT Office Visit [facility] - Pulmonology & Sleep Medicine - [place] [address] [place] [address] Dom Quiñonez MD #[address] [place] [address] documented as of this encounter Goals Goal Patient Goal Type Associated Problems Recent Progress Patient-Stated? Author ACTIVITY Activity No change(08/08 2:42 PM CDT) Yes Maritza Vanegas RN Note: Bonny will walk five days a week. Goal Reviewed with: Bonny Readiness to change: Department associated with goal: [facility] Steps to achieve goal: Walking 5 days a week I want to be able to be around people and feel less depressed. Behavioral Health Worsening(0 09/22/2023 3:12 PM CDT) Yes Hilda Tinajero [facility] Note: Goal/Objective: Decrease symptoms of depression and anxiety. Anticipated Time Frame for Goal Completion: 3 months Goal Reviewed with: patient Readiness to change: Thinking about making a change Department associated with goal: [facility] Steps to achieve [...] diet Depression Depression Improving(0 03/15/2022 2:27 PM STATE GAME PROTECTOR) No Breanne Saldana, CHAR FILTER OPERATOR HELPER Note: Goal/Objective: Decrease symptoms of depression associated [...] Respiratory Rule-Out 05/06/2024 05/06/2024 025 9:20 AM STATE GAME PROTECTOR COVID - 19 05/06/2024 05/06/2024 05/06/2024 9:19 AM STATE GAME PROTECTOR Assessment Noted Time PHQ-9 Depression Total Score: 19 025 1:00 PM STATE GAME PROTECTOR documented as of this encounter Care Teams Punchboard Assembler Relationship Specialty Start Date End Date Rebeka Trinidad MD [address] [place] [address] PCP - General Family Medicine 04/21/24 04/21/24 Lorri Leo, MICROFILMER, ACID CUTTER [address] [place] [address] PCP - General Certified Nurse Practitioner 04/22/24 05/30/24 Tain Biggs PAC [address] [place] [address] PCP - General Physician Gravel Machine Operator 05/31/24 Phil Jacobo MD #[address] [place] [address] Consulting Physician Neurology 03/07/21 Rajiv Mccormack, NUCLEAR ENGINEER #[address] [place] [address] Nurse Practitioner Gastroenterology 03/07/21 Alize Acosta, RUSSELL, ACID CUTTER [facility] [place] [address] Virtual Advanced Care (VAC) TIMEKEEPING SUPERVISOR Advanced Practice Nurse 08/30/21 David Salmon MD #[address] [address] Consulting Physician Endocrinology 01/15/22 Maurilio Farley MD #[address] [address] Consulting Physician Colon and Rectal Surgery 09/20/22 Dom Quiñonez MD #2 [place] [address] Consulting Physician Pulmonary Disease 11/19/21 Rachelle Nava APRN, SCHEDULE CHECKER #[address] [place] [address] Nurse Practitioner Advanced Practice Nurse 07/19/22 Irais Naylor APRN, ACID CUTTER #[address] [address] Nurse Practitioner Cardiology 06/27/23 07/29/24 Sharri Gaspar MD [address] [address] Consulting Physician Cardiology 04/26/24 Amber Aldrich APRN, ACID CUTTER [address] [place] [address] Nurse Practitioner Cardiology 07/30/24 documented as of this encounter
== END 2024-11-11 14:35 | disposition home or self-care (01) ==
PROVIDERS: Visit Provider Neurological Surgery
DX: Z01.818 Encounter for other preprocedural examination (principal)
CPT/HCPCS: 72131

== ENCOUNTER 2024-11-16 11:20 | Outpatient (CLI) | payer MEDICARE, MEDICAID, SELFPAY ==
--- NOTE | 2024-11-16 12:33 | ECG_ITS ---
Test Date: 2024-11-16 12:50:31 Measurements Intervals [place] Rate: 77 P: 49 ID: [id number] QRS: -13 QRSD: 99 T: 83 QT: 385 QTc: 438 Interpretive Statements SINUS RHYTHM WITH SINUS ARRHYTHMIA POOR R-WAVE PROGRESSION POSSIBLE LEFT ATRIAL ENLARGEMENT [-0.1mV P WAVE IN V1/V2] NONSPECIFIC T-WAVE ABNORMALITY ABNORMAL ELECTROCARDIOGRAM No previous ECG available for comparison Electronically Signed On 11-17-2024 15:46:55 CDT by Julian Watts M.D.
[2024-11-16 13:00] LABS: Add Urine Microscopic? NO; Appearance Urine Clear (Clear); Glucose Urine UA 3+ mg/dL (Negative); Leukocyte Esterase Ur Negative LEU/UL (Negative); Nitrate Urine Negative (Negative); Specific Grav Ur 1.036 (1.001-1.035)
[2024-11-16 13:00] LABS: Hematocrit 40.2 % (37.0-47.0); Hemoglobin 12.6 g/dL (12.0-15.0); Mean Corpuscular HGB Conc 31.3 g/dl (32-36); Mean Corpuscular Hemoglobin 23.6 pg (26-34); Mean Corpuscular Volume 75.4 fl (80-100); Platelet Count Result 204 k/mm3 (150-375); Red Blood Count 5.33 M/mm3 (4.2-5.4); White Blood Count 5.3 K/mm3 (4.5-10.0)
[2024-11-16 13:13] LABS: INR 1.2; Prothrombin Time 15.1 Seconds (11.1-14.7)
[2024-11-16 13:14] LABS: Partial Thromboplastin Time 34.1 Seconds (22.3-36.8)
[2024-11-16 13:21] LABS: Anion Gap 6 mmol/L (4-12); Blood Urea Nitrogen 17 mg/dL (7-17); Calcium 10.2 mg/dL (8.4-10.2); Carbon Dioxide 26 mmol/L (22-30); Chloride 103 mmol/L (98-107); Estimated Glomerular Filt Rate 57; Glucose 195 mg/dL (65-110); Potassium 4.7 mmol/L (3.4-5.0); Sodium 135 mmol/L (137-145)
--- OUTSIDE RECORDS SUMMARY | 2024-11-16 13:24 | XMS_ITS | Encounter Summary ---
Author Organization [facility] Address [address] [place] [address] Phone Care Team Providers Care Slat Grader Name Role Phone Phil Jacobo MD Unavailable [phone] Rajiv Mccormack NP Unavailable Unavailable Alize Acosta APRN, CLEANING STAFF SUPERVISOR Unavailable [phone] David Salmon MD Unavailable Maurilio Farley MD Unavailable Dom Quiñonez MD Unavailable Rachelle Nava APRN, SALES PROGRAM MANAGER Unavailable + [phone] Sharri Gaspar MD Unavailable Tani Biggs PAC Primary Care Provider [phone] Amber Aldrich SPORTS EQUIPMENT RACKER, CLEANING STAFF SUPERVISOR Unavailable Encounter Details Date Type Department Care Team (Late st Contact Info) Description 09/16/2024 Results Follow-Up [facility] - [facility] Center Oncology Services [address] [place] [address] Melony Asif Stacey, PAC [address] [place] [address] VITAMIN B12, FERRITIN, IRON,TRANSFERN,CALC. TIBC,%SAT, Additional followed-up results: 4 Social History Tobacco Use Types Packs/Day Years Used Date Smoking Tobacco: Some Days Cigarettes 1 37.1 Started: 1984; Last attempted to quit: 04/12/2021 Passive Smoke Exposure: Never Smokeless Tobacco: Never Alcohol Use Standard Drinks/Week Comments Not Currently 0 (1 standard drink = 0.6 oz pur e alcohol) Last drink in 2020 [facility] Utilities Answer Date Recorded In [...] How often do you attend chur or tenriism services? 1 to 4 times per year 03/22/2024 Do you belong to any clubs o r organizations such as uatsdin groups, unions, fraternal or athletic groups, or [...] Total Score - Questions 1-9 19 08/09 [facility] - Occupational [...] in a snf (including now)? No 03/24/2023 Housing Stability Vital [...] time in the past 12 m [facility], were you homeless or living in a snf (including now)? 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 Not on file Not on file documented as of this encounter Plan of Treatment Upcoming Encounters Date Type Department Care Team (Late st Contact Info) Description 11/17/2024 2:00 PM CDT Telemedicine [facility] [address] [place] [address] Alize Acosta, SPORTS EQUIPMENT RACKER, CLEANING STAFF SUPERVISOR [address] [place] [address] 11/18/2024 3:45 PM CDT Office Visit [facility] - Endocrinology - [place] [address] [place] [address] David Salmon MD #[address] [address] 11/24/2024 2:40 PM CDT Telemedicine [facility] [address] [place] [address] 01/03/2025 11:30 AM CDT Office Visit [facility] - Neurology - [place] [address] [place] [address] Rachelle Nava APRN, SALES PROGRAM MANAGER [address] [place] [address] 03/04/2025 3:10 PM PALEOLOGY TEACHER Lab [facility] Primary Care - [place] [phone] [facility], [facility] 03/04/2025 3:30 PM PALEOLOGY TEACHER Office Visit [facility] Primary [facility] [place] [address] Tani Biggs, [facility] [address] [place] [address] 03/17/2025 1:30 PM PALEOLOGY TEACHER [facility] [address] [place] [address] Melony Asif Stacey, [facility] [address] [place] [address] Discharge Disposition: Discharged to home or Selfcare 03/25/2025 1:20 PM PALEOLOGY TEACHER Office Visit [facility] Oncology Services [address] [place] [address] Melony Asif Stacey, [facility] [address] [place] [address] Discharge Disposition: Discharged to home or Selfcare 04/25/2025 2:00 PM PALEOLOGY TEACHER Office Visit [facility] - Cardiology - [place] [address] [place] [address] Laisha Griffin, DO [address] [address] 07/18/2025 1:00 PM CDT Office Visit [facility] - Pulmonology & Sleep Medicine [facility] [address] [place] [address] Dom Quiñonez MD [address] [place] [address] documented as of this encounter Goals Goal Patient Goal Type Associated Problems Recent Progress Patient-Stated? Author ACTIVITY Activity No change(08/08 2:42 PM CDT) Yes Maritza Vanegas, RN Note: Bonny will walk five days a week. Goal Reviewed with: Bonny Readiness to change: Department associated with goal: [facility] Steps to achieve goal: Walking 5 days a week I want to be able to be around people and feel less depressed. Behavioral Health Worsening(0 09/22/2023 3:12 PM CDT) Hilda Mesa, [facility] Note: Goal/Objective: Decrease symptoms of depression and anxiety. Anticipated Time Frame for Goal Completion: 3 months Goal Reviewed with: patient Readiness to change: Thinking about making a change Department associated with goal: [facility] Steps to [...] diet Depression Depression Improving(0 03/15/2022 2:27 PM PALEOLOGY TEACHER) No Breanne Saldana LCSW Note: Goal/Objective: [...] to change Department associated with goal: [facility] Steps to [...] documented as of this encounter Care Teams Slat Grader Relationship Specialty Start Date End Date Tani Biggs PAC [address] [place] [address] PCP - General Physician Stull Installer 05/31/24 Phil Jacobo MD [address] [place] [address] Consulting Physician Neurology 03/07/21 Rajiv Mccormack NP [address] [place] [address] Nurse Practitioner Gastroenterology 03/07/21 Alize Acosta APRN, CLEANING STAFF SUPERVISOR [facility] [place] [address] [facility] (VAC) RELIGIOUS EDUCATION DIRECTOR Advanced Practice Nurse 08/30/21 David Salmon MD #[address] [phone] Consulting Physician Endocrinology 01/15/22 Maurilio Farley MD #[address] [address] Consulting Physician Colon and Rectal Surgery 09/20/22 Dom Quiñonez MD [address] [place] [address] Consulting Physician Pulmonary Disease 11/19/21 Rachelle Nava APRN, SALES PROGRAM MANAGER [address] [place] [address] Nurse Practitioner Advanced Practice Nurse 07/19/22 Sharri Gaspar MD 2 [facility] [place] [address] [address] Consulting Physician Cardiology 04/26/24 Amber Aldrich APRN, CLEANING STAFF SUPERVISOR [address] [place] [address] Nurse Practitioner Cardiology 07/30/24 documented as of this encounter
--- OUTSIDE RECORDS SUMMARY | 2024-11-16 13:24 | XMS_ITS | Encounter Summary ---
Author Organization [facility] Address [address] [place] [address] Phone Care Team Providers Care Tank Cooper Name Role Phone Phil Jacobo MD Unavailable [phone] Rajiv Mccormack NP Unavailable Unavailable Alize Acosta DATABASE MARKETING SPECIALIST, CUTCH CLEANER Unavailable [phone] Dayo Chaney MD Unavailable Juanita Hauser RN Unavailable Unavaila David Martinez MD Unavailable Emilia Tang MD Primary Care Provider [phone] Maurilio Farley MD Unavailable PhysicianCandida MD Unavailable Rebeka Trinidad MD Primary Care Provider + [phone] Dom Quiñonez MD Unavailable Rachelle Nava DATABASE MARKETING SPECIALIST, HAIR BALER Unavailable + [phone] Irais Naylor DATABASE MARKETING SPECIALIST, CUTCH CLEANER Unavailable + [phone] Lorri Leo DATABASE MARKETING SPECIALIST, CUTCH CLEANER Primary Care Provider + [phone] Rebeka Trinidad MD Primary Care Provider + [phone] Lorri Leo DATABASE MARKETING SPECIALIST, CUTCH CLEANER Primary Care Provider + [phone] Sharri Gaspar MD Unavailable Tani Biggs Primary Care Provider + [phone] Valdemar Amber Louise DATABASE MARKETING SPECIALIST, CUTCH CLEANER Unavailable Reason for Visit * Reason Comments Medication Refill Encounter Details Date Type Department Care Team (Late st Contact Info) Description 07/25/2022 Refill [facility] Medical [facility] - Primary Care - [place] [address] [place] [address] Jackeline Dimas, DATABASE MARKETING SPECIALIST, [facility] [address] [place] [address] Medication Refill Social History Tobacco [...] 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 on file [...] CDT Telemedicine [facility] [address] [place] [address] Alize Acosta, DATABASE MARKETING SPECIALIST, CUTCH CLEANER [address] [place] [address] 11/18/2024 3:45 PM CDT Office Visit [facility] - Endocrinology - [place] [address] [place] [address] David Salmon MD #[address] [address] 11/24/2024 2:40 PM CDT Telemedicine [facility] [address] [place] [address] 01/03/2025 11:30 AM CDT [facility] [place] [address] [place] [address] Rachelle Nava, DATABASE MARKETING SPECIALIST, HAIR BALER [address] [place] [address] 03/04/2025 3:10 PM BRAND EXECUTIVE [facility] - [address] [place] [address] Lab, [facility] 03/04/2025 3:30 PM BRAND EXECUTIVE [facility] [place] [address] Tani Biggs, [facility] [address] [place] [phone] 03/17/2025 1:30 PM BRAND EXECUTIVE Lab [facility] Oncology Services [address] [place] [address] AsifMelony kumari Stacey, PAC [address] [place] [address] Discharge Disposition: Discharged to home or Selfcare 03/25/2025 1:20 PM BRAND EXECUTIVE Office Visit [facility] Oncology Services [address] [place] [address] Melony Asif Stacey, [facility] [address] [place] [address] Discharge Disposition: Discharged to home or Selfcare 04/25/2025 2:00 PM BRAND EXECUTIVE Office Visit [facility] - Cardiology - [place] [address] [place] [address] Laisha Griffin, DO [address] [address] 07/18/2025 1:00 PM CDT Office Visit [facility] - Pulmonology & Sleep Medicine [facility] [address] [place] [address] Dom Quiñonez MD [address] [place] [address] documented as of this encounter [...] as recommended. Depression Depression Improving( 2:27 PM BRAND EXECUTIVE) No Breanne Saldana, FINANCIAL UNDERWRITER Note: Goal/Objective: Decrease symptoms of depression associated [...] 19 04/18/2024 04/18/2024 04/18/2024 10:4 7 PM BRAND EXECUTIVE Respiratory Rule-Out 05/06/2024 05/06/2024 025 9:20 AM BRAND EXECUTIVE COVID - 19 05/06/2024 05/06/2024 05/06/2024 9:19 AM BRAND EXECUTIVE Assessment Noted Time PHQ-9 Depression Total Score: 24 022 3:31 PM BRAND EXECUTIVE documented as of this encounter Care Teams Tank Cooper Relationship Specialty Start Date End Date Emilia Tang MD [address] [place] [address] PCP - General Family Medicine 06/07/22 03/25/23 Rebeka Trinidad MD [address] [place] [address] PCP - General Family Medicine 03/26/23 03/29/24 Lorri Leo APRN, CUTCH CLEANER [address] [place] [address] PCP - General Certified Nurse Practitioner 03/30/24 04/20/24 Rebeka Trinidad MD [address] [place] [address] PCP - General Family Medicine 04/21/24 04/21/24 Lorri Leo APRN, CUTCH CLEANER [address] [place] [address] PCP - General Certified Nurse Practitioner 04/22/24 05/30/24 Tani Biggs PAC [address] [place] [id number] PCP - General Physician Machine Steak Tenderizer 05/31/24 Phil Jacobo MD [address] [place] [address] Consulting Physician Neurology 03/07/21 Rajiv Mccormack, KELI [address] [place] [address] Nurse Practitioner Gastroenterology 03/07/21 Alize Acosta, DATABASE MARKETING SPECIALIST, CUTCH CLEANER [address] [place] [address] Virtual [facility] (VAC) PIGS FEET CLEANER Advanced Practice Nurse 08/30/21 Dayo Chaney MD [address] [place] [address] Accounting File Clerk Cardiovascular Disease - Cardiology 09/20/21 02/12/24 Juanita Mercado RN ID Registered Nurse Cardiology 12/24/21 02/12/24 David Salmon MD #[address] [phone] Consulting Physician Endocrinology 01/15/22 Maurilio Farley MD #[address] [address] Consulting Physician Colon and Rectal Surgery 09/20/22 PhysicianCandida MD [address] [place], [place] [address] Family Medicine 01/25/22 03/18/23 Dom Quiñonez MD [address] [place] [address] Consulting Physician Pulmonary Disease 11/19/21 Rachelle Nava APRN, HAIR BALER [address] [place] [address] Nurse Practitioner Advanced Practice Nurse 07/19/22 Irais Naylor APRN, CUTCH CLEANER [address] [place] [address] [place] [address] Nurse Practitioner Cardiology 06/27/23 07/29/24 Sharri Gaspar MD [address] [place] [place] [address] Consulting Physician Cardiology 04/26/24 Amber Aldrich APRN, CUTCH CLEANER [address] [place] [address] Nurse Practitioner Cardiology 07/30/24 documented as of this encounter
--- OUTSIDE RECORDS SUMMARY | 2024-11-16 13:24 | XMS_ITS | Clinical Summary ---
Author Organization [facility] Address [address] [place] [address] Care Team Providers Care Material Distributor Name Role Phone Tani Biggs Primary Care Provider [phone] Allergies Active Allergy Reactions Criticality Noted Date [...] 1 tablet (2 mg total) by mouth rn testing before breakfast 08/01/19 21 Active allopurinoL (ZYLOPRIM) [...] + MRI () - right kidney mass ([facility] [place]). Creatinine 1.1. Hx of post-menopausal bleeding s/p [...] + MRI () - right kidney mass ([facility] Creatinine 1.1. Hx of post-menopausal [...] + MRI () - right kidney mass ([facility] [place]). Creatinine 1.1. Hx of post-menopausal bleeding s/p [...] (04/29/2022): Added automatically from request for surgery [id number] Internal hemorrhoids 04/25/2022 Gastroparesis 05/23/2021 Erosive gastritis [...] Description 10/04/2024 11:40 AM CDT Office Visit [facility] Medicine ENT [address] [facility] Medical Office Building [address] [place] [address] Meli Campos MD EDDI (obstructive sleep apnea) (Primary Dx); Intolerance of continuous positive airway pressure (CPAP) ventilation 09/21/2024 8:00 AM CDT - 09/21/2024 8:30 AM CDT Surgery [facility] Operating Room [address] [place] [address] Meli Campos MD DRUG INDUCED SLEEP ENDOSCOPY 09/21/2024 7:43 AM CDT Anesthesia Event [facility] Operating Room [address] [place] [address] Eryn Epstein MD PhD Oliva White NP 09/21/2024 6:12 AM CDT - 09/21/2024 10:27 AM CDT Hospital Encounter [facility] Operating Room [address] [place] [address] Meli Campos MD EDDI (obstructive sleep apnea) (Primary Dx) Discharge Disposition: Discharge to home or self care 08/18/2024 2:30 PM CDT Office Visit [facility] Gastroenterology at [address] [place] [address] Rajiv Sauceda NP Chronic superficial [...] on file Legal Sex Female 9:19 AM DIRECTOR OF INVESTIGATIONS Gender Identity Female 06/03/2023 11:21 AM CDT Sexual Orientation Villegas 01/18/2021 9: 53 AM DIRECTOR OF INVESTIGATIONS Obstetrics History Last Filed Vital Signs Vital [...] (Latest Contact Info) Description 01/25/2025 9:30 AM DIRECTOR OF INVESTIGATIONS Hospital Encounter [facility] Operating Room [address] [place] [address] [place]pos [place] [id number] [place] [address] 01/25/2025 9:30 AM DIRECTOR OF INVESTIGATIONS - 01/25/2025 12:30 PM DIRECTOR OF INVESTIGATIONS Surgery [facility] Operating Room [address] [place] [address] [place] [address] [address] TONSILLECTOMY & UVULOPHARYNGOPLASTY/1 50 min Scheduled Procedures Name Priority Associated Diagnoses Date/Ti me TONSILLECTOMY. EDDI (obstructive sleep apnea) 01/25/2025 9:30 AM DIRECTOR OF INVESTIGATIONS UVULOPHARYNGOPLASTY EDDI (obstructive sleep apnea) 01/25/2025 9:30 AM DIRECTOR OF INVESTIGATIONS Health Maintenance Due Date Last Done Comments [...] AM CDT EGFR Timed 04/18/2023 11:04 PM DIRECTOR OF INVESTIGATIONS HEMOGLOBIN A1C STAT 04/15/2023 10:25 PM DIRECTOR OF INVESTIGATIONS HIGH RISK HPV DNA DETECTION WITH GENOTYPING Routine 02/13/2023 1:39 PM DIRECTOR OF INVESTIGATIONS Postmenopausal bleeding LIPID PANEL Routine 08/31/2016 6:28 [...] 132 70 - 199 mg/dL POC Performer [id number] ERI WELCH Blood 09/21/2024 7:01 AM CDT 09/21/2024 7:01 AM CDT us Meli Campos MD LAB POCT ORDERABLES - DEVICE Final Result ERI [address] [address] Department [place] [address] * eGFR (04/18/2023 11:04 PM DIRECTOR OF INVESTIGATIONS) eGFR 65 >=60 mL/min/1. 73 m2 [facility] Comment: Interpretive Data Reference Interval Normal [...] reviewed 2021. Blood 04/18/2023 11:0 4 PM DIRECTOR OF INVESTIGATIONS 04/19/2023 12:33 AM DIRECTOR OF INVESTIGATIONS Gerard Rodriguez MD LAB BLOOD ORDERABLES Fin al Result [facility] [place] [address] * (ABNORMAL) Hemoglobin A1c (04/15/2023 10:25 PM DIRECTOR OF INVESTIGATIONS) Hgb A1C 5.8(H) 4.0 - 5.6 % [facility] Estimated Average Glucose 120 mg/dL [facility] Comment: The ADA recommends reporting an estimated Average Glucose (eAG) with all Hemoglobin A1c results using the equation derived from a study of 507 normal and diabetic adults. Minority populations were underrepresented and children were not included. (Diabetes Care 2020; 43(S1): S66-S76). The eAG is not equivalent to a fasting glucose. Blood 04/15/2023 10:2 5 PM DIRECTOR OF INVESTIGATIONS 04/15/2023 11:38 PM DIRECTOR OF INVESTIGATIONS Gerard Rodriguez MD LAB BLOOD ORDERABLES Fin al Result [facility] [place] [address] * High Risk HPV DNA Detection with Genotyping (Molecular component) (02/13/2023 1:39 PM DIRECTOR OF INVESTIGATIONS) HPV HR 16 Not Detected Not Detected [facility] HPV HR 18 Not Detected Not Detected [facility] HPV HR Non 16/18 Not Detected Not Detected [facility] Comment: Interpretive Data Nucleic acid amplification [...] this test have been verified by the [facility] Molecular Infectious Disease laboratory. Correlate with separately reported cytology results, as applicable. Interpretive data last revised 22 End[facility]ical 02/13/2023 1:39 PM DIRECTOR OF INVESTIGATIONS 02/14/2023 7:00 AM DIRECTOR OF INVESTIGATIONS Narrative [facility] - 02/15/2023 2:10 AM DIRECTOR OF INVESTIGATIONS Clinical history and diagnosis->screening pap Testing type->Screening Last menstrual period (date if known)->2019 us Maty Gilbert MD LAB BODY FLUIDS AND STOOLS OR DERABLES Final Result Performing Organization Address [facility]/ZIP Co de Phone Number [facility] Department [place] [address] * (ABNORMAL) Lipid panel (08/31/2016 6:28 AM [...] Final Re sult ERI VANEGAS (DAIANA) [facility] [place] [address] from Last 3 Months or Most Recently Relevant to Health Maintenance Insurance [facility] MEDICARE ADVANTAGE IDPA [facility] MEDIC[facility] ADVANTAGE IDPA [facility] MEDICARE ADVANTAGE Advance Directives For more information, please contact: [phone] * Full Code (Latest Code Status on [...] 11:00 AM 02/27/2021 11:00 AM Care Teams Material Distributor Relationship Specialty Start Date End Date Tani Biggs PA [address] [place] [address] PCP - General Orthopedic Surgery 09/13/24
--- OUTSIDE RECORDS SUMMARY | 2024-11-16 13:24 | XMS_ITS ---
Author Organization [facility] Address [address] [place] [address] Care Team Providers Care Automatic Presser Name Role Phone Tani Biggs Primary Care Provider [phone] Active Problems Problem Noted Date Diagnosed Date History of kidney cancer 10/06/2023 Overview (10/06/2023): Images from the original note were not included. 03/27/23: NC. Renal lesion. CT + MRI () - right kidney mass ([facility] [place]). Creatinine 1.1. Hx of post-menopausal bleeding s/p [...] + MRI () - right kidney mass ([facility] [place]). Creatinine 1.1. Hx of post-menopausal bleeding s/p [...] + MRI () - right kidney mass ([facility] [place]). Creatinine 1.1. Hx of post-menopausal bleeding s/p [...] (04/29/2022): Added automatically from request for surgery [id number] Internal hemorrhoids 04/25/2022 Gastroparesis 05/23/2021 Erosive gastritis [...]
--- OUTSIDE RECORDS SUMMARY | 2024-11-16 13:24 | XMS_ITS | Encounter Summary ---
Author Organization [facility] Address [address] [place] [address] Phone Care Team Providers Care Tobacco Wrapping Machine Tender Name Role Phone Phil Jacobo MD Unavailable [phone] Rajiv Mccormack NP Unavailable Unavailable Alize Acosta MANAGER RESORT, LUMBER PILER Unavailable David Salmon MD Unavailable Maurilio Farley MD Unavailable Rebeka Trinidad MD Primary Care Provider + [phone] Dom Quiñonez MD Unavailable Rachelle Nava MANAGER RESORT, CHANNEL ACCOUNT MANAGER Unavailable + [phone] Irais Naylor MANAGER RESORT, LUMBER PILER Unavailable + [phone] Lorri Leo APRN, LUMBER PILER Primary Care Provider + [phone] Rebeka Trinidad MD Primary Care Provider + [phone] Lorri Leo APRN, LUMBER PILER Primary Care Provider + [phone] Sharri Gaspar MD Unavailable Tani Biggs [facility] Primary Care Provider Amber Aldrichsweetie MOJICAN, LUMBER PILER Unavailable Encounter Details Date Type Department Care Team (Late st Contact Info) Description 02/25/2024 Telephone [facility] [address] [place] [address] Rebeka Trinidad MD [address] [place] [address] Social History Tobacco Use Types Packs/Day Years Used Date Smoking Tobacco: Every Day Cigarettes 1 37.1 Started: 1984; Last attempted to quit: 04/12/2021 Smokeless Tobacco: Never Alcohol Use Standard Drinks/Week Comments Not Currently 0 (1 standard drink = 0.6 oz pur e alcohol) Last drink in 2020 [facility] Utilities Answer Date Recorded In the past 12 months has [place], gas, oil, or water company threatened to [...] Never 09/08/2023 How often do you attend [facility] or yazidi services? 1 to 4 times per year 09/08/2023 Do you belong to any clubs o r organizations such as pentecostal groups, unions, fraternal or athletic groups, or [...] Total Score - Questions 1-9 17 01/08 [facility] - Occupational Stress Questionnaire Answer Date [...] place to sleep or slept in a group home (including now)? No 03/24/2023 Housing Stability [...] were you homeless or living in a group home (including now)? 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 Not on file Not on file documented as of this encounter Plan of Treatment Upcoming Encounters Date Type Department Care Team (Late st Contact Info) Description 11/17/2024 2:00 PM CDT Telemedicine [facility] [address] [place] [address] Alize Acosta APRN, LUMBER PILER [address] [place] [address] 11/18/2024 3:45 PM CDT [facility] - [place] [address] [place] [address] David Salmon MD #[address] [address] 11/24/2024 2:40 PM CDT Telemedicine [facility] [address] [place] [address] 01/03/2025 11:30 AM CDT [facility] - Neurology - [place] [address] [place] [address] Rachelle Nava APRN, CHANNEL ACCOUNT MANAGER [address] [place] [address] 03/04/2025 3:10 PM SENIOR TECHNOLOGIST Lab [facility] Primary [facility] - [place] [address] [place] [address] [place] [facility] 03/04/2025 3:30 PM SENIOR TECHNOLOGIST Office Visit [facility] Primary [facility] - [place] [address] [place] [address] Tani Biggs, [facility] [address] [place] [address] 03/17/2025 1:30 PM SENIOR TECHNOLOGIST Lab [facility] Oncology Services [address] [place] [address] Melony Asif, PAC [address] [place] [address] Discharge Disposition: Discharged to home or Selfcare 03/25/2025 1:20 PM SENIOR TECHNOLOGIST Office Visit [facility] Oncology Services [address] [place] [address] Melony Asif Stacey, PAC [address] [place] [address] Discharge Disposition: Discharged to home or Selfcare 04/25/2025 2:00 PM SENIOR TECHNOLOGIST Office Visit [facility] - Cardiology - [place] [address] [place] [address] Laisha Griffin, DO [address] [address] 07/18/2025 1:00 PM CDT Office Visit [facility] - Pulmonology & Sleep Medicine - [place] [address] [place] [phone] Dom Quiñonez MD [address] [place] [address] documented as of this encounter Goals Goal Patient Goal Type Associated Problems Recent Progress Patient-Stated? Author ACTIVITY Activity No change(08/08 2:42 PM CDT) Yes Maritza Vanegas RN Note: Bonny will walk five days a week. Goal Reviewed with: Bonny Readiness to change: Department associated with goal: [facility] Steps to achieve goal: Walking 5 days a week I want to be able to be around people and feel less depressed. Behavioral Health Worsening(0 09/22/2023 3:12 PM CDT) Yes Hilda Tinajero [facility] Note: Goal/Objective: Decrease symptoms of depression and anxiety. Anticipated Time Frame for Goal Completion: 3 months Goal Reviewed with: patient Readiness to change: Thinking about making a change Department associated with goal: [facility] Steps to [...] 12/08/2023 2:39 PM CDT) No Renita Quezada, SEBASTIAN Note: Goal: To manage my high [...] diet Depression Depression Improving(0 03/15/2022 2:27 PM SENIOR TECHNOLOGIST) No Breanne Saldana, AGRICULTURE PROFESSOR Note: Goal/Objective: Decrease symptoms of depression associated [...] Depression Total Score: 17 024 9:00 AM SENIOR TECHNOLOGIST documented as of this encounter Care Teams Tobacco Wrapping Machine Tender Relationship Specialty Start Date End Date Rebeka Trinidad MD [address] [place] [address] PCP - General Family Medicine 03/26/23 03/29/24 Lorri Leo, MANAGER RESORT, LUMBER PILER [address] [place] [address] PCP - General Certified Nurse Practitioner 03/30/24 04/20/24 Rebeka Trinidad MD [address] [place] [address] PCP - General Family Medicine 04/21/24 04/21/24 Lorri Leo, MANAGER RESORT, LUMBER PILER [address] [place] [place], [place] [id number] PCP - General Certified Nurse Practitioner 04/22/24 05/30/24 Tani Biggs, PAC [address] [place] [address] PCP - General Physician Workers Compensation Legal Secretary 05/31/24 Phil Jacobo MD [address] [place] [address] Consulting Physician Neurology 03/07/21 Rajiv Mccormack, KELI [address] [place] [address] Nurse Practitioner Gastroenterology 03/07/21 Alize Acosta, MANAGER RESORT, LUMBER PILER [address] [place] [place], [place] [address] Virtual Advanced Care (VAC) BEHAVIORAL GENETICIST Advanced Practice Nurse 08/30/21 David Salmon MD #[address] [phone] Consulting Physician Endocrinology 01/15/22 Maurilio Farley MD #[address] [address] Consulting Physician Colon and Rectal Surgery 09/20/22 Dom Quiñonez MD #[address] [place] [address] Consulting Physician Pulmonary Disease 11/19/21 Rachelle Nava APRN, CHANNEL ACCOUNT MANAGER [address] [place] [address] Nurse Practitioner Advanced Practice Nurse 07/19/22 Irais Naylor APRN, LUMBER PILER #2 [facility] [address] [place] [address] Nurse Practitioner Cardiology 06/27/23 07/29/24 Sharri Gaspar MD 2 [facility] [place] [facility] [address] [place] [address] Consulting Physician Cardiology 04/26/24 Amber Aldrich APRN, LUMBER PILER [address] [place] [address] Nurse Practitioner Cardiology 07/30/24 documented as of this encounter
--- OUTSIDE RECORDS SUMMARY | 2024-11-16 13:24 | XMS_ITS | Encounter Summary ---
Author Organization [facility] Address [address] [place] [address] Phone Care Team Providers Care Unix Architect Name Role Phone Jackeline Dimas PROPELLER ENGINEER, BENCH PATTERNMAKER METAL Primary Care Provider Fiona Martinez BEEHIVE KILN CHARCOAL BURNER Unavailable Unavailab Phil Ellis MD Unavailable +[phone] Rajiv Mccormack NP Unavailable Unavailable Renita Quezada RN Unavailable Unavailable Alize Acosta PROPELLER ENGINEER, BENCH PATTERNMAKER METAL Unavailable +[phone] Dayo Chaney MD Unavailable Juanita Hauser RN Unavailable Unavaila David Martinez MD Unavailable Emilia Tang MD Primary Care Provider +[phone] Maurilio Farley MD Unavailable Candida Turner MD Unavailable Rebeka Trinidad MD Primary Care Provider + [phone] Dom Quiñonez MD Unavailable Rachelle Nava PROPELLER ENGINEER, IMPLEMENTATION ADVISOR Unavailable + [phone] Irais Naylor PROPELLER ENGINEER, BENCH PATTERNMAKER METAL Unavailable + [phone] Lorri Leo Annetta PROPELLER ENGINEER, BENCH PATTERNMAKER METAL Primary Care Provider + [phone] Rebeka Trinidad MD Primary Care Provider + [phone] AhmetAngélicamando Littlejohn PROPELLER ENGINEER, BENCH PATTERNMAKER METAL Primary Care Provider [phone] Sharri Gaspar MD Unavailable Tani Biggs Primary Care Provider + [phone] Amber Aldrich PROPELLER ENGINEER, BENCH PATTERNMAKER METAL Unavailable Reason for Visit * Reason Comments Medication Refill Encounter Details Date Type Department Care Team (Late Contact Info) Description 02/08/2020 Refill [facility] - Primary Care - [place] [address] [place] [address] Jackeline Dimas, PROPELLER ENGINEER, [facility] [address] [place] [address] Medication Refill Social History Tobacco [...] 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 No / Unsure 02/08/2020 7:30 AM SLOT FLOORMAN documented as of this encounter Plan of Treatment Upcoming Encounters Date Type Department Care Team (Late Contact Info) Description 11/17/2024 2:00 PM CDT Telemedicine [facility] [address] [place] [address] Alize Acosta, PROPELLER ENGINEER, BENCH PATTERNMAKER METAL [address] [place] [address] 11/18/2024 3:45 PM CDT Office Visit [facility] - Endocrinology - [place] [address] [place] [address] David Salmon MD #[address] [address] 11/24/2024 2:40 PM CDT Telemedicine [facility] [address] [place] [address] 01/03/2025 11:30 AM CDT Office [facility] - [place] [address] [place] [address] Rachelle Nava, PROPELLER ENGINEER, IMPLEMENTATION ADVISOR #[address] [place] [address] 03/04/2025 3:10 PM SLOT FLOORMAN Lab [facility] Primary Care - [place] [address] [place] [address] [facility] 03/04/2025 3:30 PM SLOT FLOORMAN Office Visit [facility] Primary Care - [place] [address] [place] [address] Tani Biggs PAC [address] [place] [address] 03/17/2025 1:30 PM SLOT FLOORMAN Lab [facility] Oncology Services [address] [place] [phone] Melony Asif [place], PAC [address] [place] [address] Discharge Disposition: Discharged to home or Selfcare 03/25/2025 1:20 PM SLOT FLOORMAN [facility] [address] [place] [address] Melony Asif [place], PAC [address] [place] [address] Discharge Disposition: Discharged to home or Selfcare 04/25/2025 2:00 PM SLOT FLOORMAN Office Visit [facility] - Cardiology - [place] [address] [place] [address] Laisha Griffin, DO [address] [address] 07/18/2025 1:00 PM CDT Office Visit [facility] - Pulmonology & Sleep Medicine [facility] #[address] [place] [address] Dom Quiñonez MD #[address] [place] [address] documented as of this encounter Visit Diagnoses Not on filedocumented in this encounter Additional Health Concerns Infection Onset Date Last Indicated Resolved Time COVID - 19 01/08/2021 01/08/2021 01/28/2021 12:1 6 AM SLOT FLOORMAN COVID - 19 03/12/2021 03/12/2021 04/01/2021 12:1 6 AM SLOT FLOORMAN COVID - 19 12/15/2021 12/15/2021 12/15/2021 7:26 PM CDT COVID - 19 Confirmed 12/15/2021 12/15/2021 022 12:16 AM CDT COVID - 19 04/18/2024 04/18/2024 04/18/2024 10:4 7 PM SLOT FLOORMAN Respiratory Rule-Out 05/06/2024 05/06/2024 025 9:20 AM SLOT FLOORMAN COVID - 19 05/06/2024 05/06/2024 05/06/2024 9:19 AM SLOT FLOORMAN Assessment Noted Time PHQ-9 Depression Total Score: 0 09/01/19 20 11:58 AM CDT documented as of this encounter Care Teams Unix Architect Relationship Specialty Start Date End Date Jackeline Dimas APRN, BENCH PATTERNMAKER METAL [address] [place] [address] PCP - General Advanced Practice Nurse 07/31/17 Emilia Tang MD [address] [place] [address] PCP - General Family Medicine 06/07/22 03/25/23 Rebeka Trinidad MD [address] [place] [address] PCP - General Family Medicine 03/26/23 03/29/24 Lorri Leo APRN, BENCH PATTERNMAKER METAL [address] [place] [address] PCP - General Certified Nurse Practitioner 03/30/24 04/20/24 Rebeka Trinidad MD [address] [place] [address] PCP - General Family Medicine 04/21/24 04/21/24 Lorri Leo APRN, BENCH PATTERNMAKER METAL [address] [place] [address] PCP - General Certified Nurse Practitioner 04/22/24 05/30/24 Tani Biggs, PAC [address] [place] [address] PCP - General Physician Clinical Pathologist 05/31/24 Fiona Martinez LSW [place] Forklift Technician 03/01/21 08/23/21 Phil Jacobo MD #[address] [place] [address] Consulting Physician Neurology 03/07/21 Rajiv Mccormack, KELI [address] [place] [address] Nurse Practitioner Gastroenterology 03/07/21 Renita Quezada RN [place] Forklift Technician 05/09/21 08/23/21 Alize Acosta APRN, BENCH PATTERNMAKER METAL [address] [place] [address] Virtual Advanced Care (VAC) CONTRACT SERVICEMAN Advanced Practice Nurse 08/30/21 Dayo Chaney MD [address] [place] [address] Mechanical Energy Engineer Cardiovascular Disease - Cardiology 09/20/21 02/12/24 Juanita Mercado, SEBASTIAN [place] Registered Nurse Cardiology 12/24/21 02/12/24 David Salmon MD #[address] [address] Consulting Physician Endocrinology 01/15/22 Maurilio Farley MD #[address] [address] Consulting Physician Colon and Rectal Surgery 09/20/22 PhysicianCandida MD [address] [place] [address] Family Medicine 01/25/22 03/18/23 Dom Quiñonez MD #[address] [place] [address] Consulting Physician Pulmonary Disease 11/19/21 Rachelle Nava, PROPELLER ENGINEER, IMPLEMENTATION ADVISOR #[address] [place] [address] Nurse Practitioner Advanced Practice Nurse 07/19/22 Irais Naylor, PROPELLER ENGINEER, BENCH PATTERNMAKER METAL #[address] [address] Nurse Practitioner Cardiology 06/27/23 07/29/24 Sharri Gaspar MD 2 [facility] [address] [address] Consulting Physician Cardiology 04/26/24 Amber Aldrich APRN, BENCH PATTERNMAKER METAL [address] [place] [address] Nurse Practitioner Cardiology 07/30/24 documented as of this encounter
--- OUTSIDE RECORDS SUMMARY | 2024-11-16 13:24 | XMS_ITS | Encounter Summary ---
Author Organization [facility] Address [address] [place] [address] Phone Care Team Providers Care Oriental Rug Repairer Name Role Phone Phil Jacobo MD Unavailable +[phone] Rajiv Mccormack NP Unavailable Unavailable Alize Acosta HOT BOX OPERATOR, MARKETING EDITOR Unavailable +[phone] Dayo Chaney MD Unavailable Juanita Hauser RN Unavailable Unavaila David Martinez MD Unavailable Emilia Tang MD Primary Care Provider [phone] Maurilio Farley MD Unavailable PhysicianCandida MD Unavailable Rebeka Trinidad MD Primary Care Provider + [phone] Dom Quiñonez MD Unavailable Rachelle Nava HOT BOX OPERATOR, AUTOMOBILE INSURANCE CLAIM EXAMINER Unavailable + [phone] Irais Naylor HOT BOX OPERATOR, MARKETING EDITOR Unavailable + [phone] Lorri Leo HOT BOX OPERATOR, MARKETING EDITOR Primary Care Provider + [phone] Rebeka Trinidad MD Primary Care Provider + [phone] Lorri Leo HOT BOX OPERATOR, MARKETING EDITOR Primary Care Provider + [phone] Sharri Gaspar MD Unavailable Tani Biggs Primary Care Provider + [phone] Valdemar Amber Louise HOT BOX OPERATOR, MARKETING EDITOR Unavailable Reason for Visit * Reason Comments Medication Refill Encounter Details Date Type Department Care Team (Late st Contact Info) Description 10/21/2022 Refill [facility] - Primary Care - [place] [address] [place] [address] Jackeline Dimas, HOT BOX OPERATOR, [facility] [address] [place] [address] Medication Refill Social History Tobacco [...] 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 on 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 Not [...] CDT Telemedicine [facility] [address] [place] [address] Alize Acosta, HOT BOX OPERATOR, MARKETING EDITOR [address] [place] [address] 11/18/2024 3:45 PM CDT Office Visit [facility] - Endocrinology - [place] [address] [place] [address] David Salmon MD #[address] [address] 11/24/2024 2:40 PM CDT Telemedicine [facility] [address] [place] [address] 01/03/2025 11:30 AM CDT Office Visit [facility] - Neurology - [place] [address] [place] [address] Rachelle Nava, HOT BOX OPERATOR, AUTOMOBILE INSURANCE CLAIM EXAMINER [address] [place] [address] 03/04/2025 3:10 PM OIL FIELD ROUSTABOUT Lab [facility] Primary Care - [place] [address] [place] [address] [facility] 03/04/2025 3:30 PM OIL FIELD ROUSTABOUT Office Visit [facility] Primary Care - [place] [address] [place] [address] Tani Biggs PAC [address] [place] [address] 03/17/2025 1:30 PM OIL FIELD ROUSTABOUT Lab [facility] Oncology Services [address] [place] [address] AsifMelony [place], PAC [address] [place] [address] Discharge Disposition: Discharged to home or Selfcare 03/25/2025 1:20 PM OIL FIELD ROUSTABOUT Office Visit [facility] Oncology Services [address] [place] [address] AsifMelony [place], PAC [address] [place] [address] Discharge Disposition: Discharged to home or Selfcare 04/25/2025 2:00 PM OIL FIELD ROUSTABOUT Office Visit [facility] - Cardiology - [place] [address] [place] [address] Laisha Griffin, DO [address] [address] 07/18/2025 1:00 PM CDT Office Visit [facility] - Pulmonology & Sleep Medicine [facility] #[address] [place] [address] Dom Quiñonez MD [address] [place] [address] documented as of this encounter Goals Goal [...] Depression Depression Improving(0 03/15/2022 2:27 PM OIL FIELD ROUSTABOUT) No Breanne Saldana, METAL BURNISHER Note: Goal/Objective: Decrease symptoms of depression associated [...] 04/18/2024 04/18/2024 04/18/2024 10:4 7 PM OIL FIELD ROUSTABOUT Respiratory Rule-Out 05/06/2024 05/06/2024 025 9:20 AM OIL FIELD ROUSTABOUT COVID - 05/06/2024 05/06/2024 05/06/2024 9:19 AM OIL FIELD ROUSTABOUT Assessment Noted Time PHQ-9 Depression Total Score: 24 022 3:31 PM OIL FIELD ROUSTABOUT documented as of this encounter Care Teams Oriental Rug Repairer Relationship Specialty Start Date End Date Emilia Tang MD [address] [place] [address] PCP - General Family Medicine 06/07/22 03/25/23 Rebeka Trinidad MD [address] [place] [address] PCP - General Family Medicine 03/26/23 03/29/24 Lorri Leo APRN, MARKETING EDITOR [address] [place] [address] PCP - General Certified Nurse Practitioner 03/30/24 04/20/24 Rebeka Trinidad MD [address] [place] [address] PCP - General Family Medicine 04/21/24 04/21/24 Lorri Leo APRN, MARKETING EDITOR [address] [place], [place] [address] PCP - General Certified Nurse Practitioner 04/22/24 05/30/24 Tani Biggs PAC [address] [place] [address] PCP - General Physician Salvage Clerk 05/31/24 Phil Jacobo MD #[address] [place] [address] Consulting Physician Neurology 03/07/21 Rajiv Mccormack, KELI [address] [place] [address] Nurse Practitioner Gastroenterology 03/07/21 Alize Acosat APRN, MARKETING EDITOR [facility] [place] [address] Virtual Advanced Care (VAC) COORDINATOR VOLUNTEER SERVICES Advanced Practice Nurse 08/30/21 Dayo Chaney MD [facility] [place] [address] Textiles Sales Representative Cardiovascular Disease - Cardiology 09/20/21 02/12/24 Juanita Mercado RN [place] Registered Nurse Cardiology 12/24/21 02/12/24 David Salmon MD #[address] [address] Consulting Physician Endocrinology 01/15/22 Maurilio Farley MD #[address] [address] Consulting Physician Colon and Rectal Surgery 09/20/22 PhysicianCandida MD [address] [place] [address] Family Medicine 01/25/22 03/18/23 Dom Quiñonez MD #[address] [place] [address] Consulting Physician Pulmonary Disease 11/19/21 Rachelle Nava, HOT BOX OPERATOR, AUTOMOBILE INSURANCE CLAIM EXAMINER #[address] [place] [address] Nurse Practitioner Advanced Practice Nurse 07/19/22 Irais Naylor HOT BOX OPERATOR, MARKETING EDITOR #2 [facility] [address] Nurse Practitioner Cardiology 06/27/23 07/29/24 Sharri Gaspar MD 2 [facility] [place] [address] [address] Consulting Physician Cardiology 04/26/24 Amber Aldrich APRN, MARKETING EDITOR #[address] [place] [address] Nurse Practitioner Cardiology 07/30/24 documented as of this encounter
--- OUTSIDE RECORDS SUMMARY | 2024-11-16 13:24 | XMS_ITS | Encounter Summary ---
Author Organization [facility] Address [address] [place] [address] Phone Care Team Providers Care Loan Processor Name Role Phone Phil Jacobo MD Unavailable [phone] Rajiv Mccormack NP Unavailable Unavailable Alize Acosta APRN, DIANETICIST Unavailable [phone] Dayo Chaney MD Unavailable Juanita Hauser RN Unavailable UnavailDavid Alexandre MD Unavailable Maurilio Farley MD Unavailable Rebeka Trinidad MD Primary Care Provider + [phone] Dom Quiñonez MD Unavailable Rachelle Nava IMPORT COORDINATION AND PRODUCTION HEAD, FACILITIES CUSTODIAN Unavailable + [phone] Irais Naylor IMPORT COORDINATION AND PRODUCTION HEAD, DIANETICIST Unavailable + [phone] Lorri Leo IMPORT COORDINATION AND PRODUCTION HEAD, DIANETICIST Primary Care Provider + [phone] Rebeka Trinidad MD Primary Care Provider + [phone] Lorri Leo IMPORT COORDINATION AND PRODUCTION HEAD, DIANETICIST Primary Care Provider + [phone] Sharri Gaspar MD Unavailable Tani Biggs PAC Primary Care Provider [phone] Amber Aldrich APRN, DIANETICIST Unavailable Reason for Visit * Reason Comments Medication Refill Encounter Details Date Type Department Care Team (Late st Contact Info) Description 10/31/2023 Refill [facility] - [facility]rology [facility] #2 [place] [address] Rachelle Nava, RUSSELL, FACILITIES CUSTODIAN [address] [place] [address] Medication Refill Social History Tobacco Use Types Packs/Day Years Used Date Smoking Tobacco: Former Cigarettes 1 37.1 1 985 - 04/12/2021 Smokeless Tobacco: Never Alcohol Use Standard Drinks/Week Comments Not Currently 0 (1 standard drink = 0.6 oz pur e alcohol) last drank 2020 [facility] Utilities Answer Date Recorded In the past 12 months has [employer] electric, gas, oil, or water company threatened [...] Never 09/08/2023 How often do you attend [facility] or [facility]? 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 Not on file Not on file documented as of this encounter Plan of Treatment Upcoming Encounters Date Type Department Care Team (Late st Contact Info) Description 11/17/2024 2:00 PM CDT Telemedicine [facility] [address] [place] [address] [phone] Alize Acosta APRN, DIANETICIST [address] [place] [address] 11/18/2024 3:45 PM CDT [facility] - [place] [address] [place] [address] David Salmon MD #[address] [address] 11/24/2024 2:40 PM CDT Telemedicine [facility] [address] [place] [address] [phone] 01/03/2025 11:30 AM CDT [facility] - [place] [address] [place] [address] Rachelle Nava APRN, FACILITIES CUSTODIAN [address] [place] [address] 03/04/2025 3:10 PM TOWBOAT PILOT Lab [facility] Primary Care - [place] [address] [place] [address] [place] [facility] 03/04/2025 3:30 PM TOWBOAT PILOT [facility] - [place] [address] [place] [address] Tani Biggs, [facility] [address] [place] [address] 03/17/2025 1:30 PM TOWBOAT PILOT Lab [facility] On[facility] Services [address] [place] [address] Melony Asif, [facility] [address] [place] [address] Discharge Disposition: Discharged to home or Selfcare 03/25/2025 1:20 PM TOWBOAT PILOT Office Visit [facility] [address] [place] [address] Melony Asif, [facility] [address] [place] [address] Discharge Disposition: Discharged to home or Selfcare 04/25/2025 2:00 PM TOWBOAT PILOT Office Visit [facility] - Cardiology - [place] [address] [place] [address] Laisha Griffin DO [address] [address] 07/18/2025 1:00 PM CDT Office Visit [facility] - Pulmonology & Sleep Medicine - [place] [address] [place] [address] Dom Quiñonez MD [address] [place] [address] documented as of this encounter Goals Goal Patient Goal Type Associated Problems Recent Progress Patient-Stated? Author ACTIVITY Activity No change(08/08 2:42 PM CDT) Yes Maritza Vanegas, RN Note: Bonny will walk five days a week. Goal Reviewed with: Bonny Readiness to change: Department associated with goal: [facility] Steps to achieve goal: Walking 5 days a week I want to be able to be around people and feel less depressed. Behavioral Health Worsening(0 09/22/2023 3:12 PM CDT) Yes Hilda Tinajero HEATING AND AIR CONDITIONING MECHANIC Note: Goal/Objective: Decrease symptoms of depression and anxiety. Anticipated Time Frame for Goal Completion: 3 months Goal Reviewed with: patient Readiness to change: Thinking about making a change Department associated with goal: [facility] Steps to achieve [...] diet Depression Depression Improving(0 03/15/2022 2:27 PM TOWBOAT PILOT) No Breanne Saldana, SUPERVISOR INTELLIGENCE ANALYST Note: Goal/Objective: Decrease symptoms of depression associated [...] 19 04/18/2024 04/18/2024 04/18/2024 10:4 7 PM TOWBOAT PILOT Respiratory Rule-Out 05/06/2024 05/06/2024 025 9:20 AM TOWBOAT PILOT COVID - 05/06/2024 05/06/2024 05/06/2024 9:19 AM TOWBOAT PILOT Assessment Noted Time PHQ-9 Depression Total Score: 18 023 9:24 AM CDT documented as of this encounter Care Teams Loan Processor Relationship Specialty Start Date End Date Rebeka Trinidad MD [address] [place] [address] PCP - General Family Medicine 03/26/23 03/29/24 Lorri Leo APRN, DIANETICIST [address] [place] [address] PCP - General Certified Nurse Practitioner 03/30/24 04/20/24 Rebeka Trinidad MD [address] [place] [place], [place] [id number] PCP - General Family Medicine 04/21/24 04/21/24 Lorri Leo, IMPORT COORDINATION AND PRODUCTION HEAD, DIANETICIST [address] [place] [place], [place] [id number] PCP - General Certified Nurse Practitioner 04/22/24 05/30/24 Tani Biggs, PAC [address] [place] [address] PCP - General Physician Extractor Filler 05/31/24 Phil Jacobo MD [address] [place] [address] Consulting Physician Neurology 03/07/21 Rajiv Mccormack, MIDLEVEL PROVIDER [address] [place] [address] Nurse Practitioner Gastroenterology 03/07/21 Alize Acosta, RUSSELL, DIANETICIST [address] [place], [place] [address] Virtual [facility] Care (VAC) NOVELTY MAKER Advanced Practice Nurse 08/30/21 Dayo Chaney MD [address] [place] [address] Vice President Digital Strategist Cardiovascular Disease - Cardiology 09/20/21 02/12/24 Juanita Mercado, [place] Registered Nurse Cardiology 12/24/21 02/12/24 David Salmon MD #[address] [address] Consulting Physician Endocrinology 01/15/22 Maurilio Farley MD #[address] [address] Consulting Physician Colon and Rectal Surgery 09/20/22 Dom Quiñonez MD #2 [facility] [place] [address] Consulting Physician Pulmonary Disease 11/19/21 Rachelle Nava, IMPORT COORDINATION AND PRODUCTION HEAD, FACILITIES CUSTODIAN [address] [place] [address] Nurse Practitioner Advanced Practice Nurse 07/19/22 Irais Naylor, IMPORT COORDINATION AND PRODUCTION HEAD, DIANETICIST #2 [facility] [place] [address] Nurse Practitioner Cardiology 06/27/23 07/29/24 Sharri Gaspar MD 2 [facility] [place] [address] [address] Consulting Physician Cardiology 04/26/24 Amber Aldrich APRN, DIANETICIST #[address] [place] [address] Nurse Practitioner Cardiology 07/30/24 documented as of this encounter
--- OUTSIDE RECORDS SUMMARY | 2024-11-16 13:24 | XMS_ITS | Encounter Summary ---
Author Organization [facility] Address [address] [place] [address] Phone Care Team Providers Care Roll Shop Supervisor Name Role Phone Jackeline Dimas LAND EXAMINER, SET UP INSPECTOR Primary Care Provider Fiona Martinez SOFTWARE ENGINEER KERNEL Unavailable Unavailab Phil Ellis MD Unavailable [phone] Rajiv Mccormack NP Unavailable Unavailable Renita Quezada RN Unavailable Unavailable Alize Acosta LAND EXAMINER, SET UP INSPECTOR Unavailable +[phone] Dayo Chaney MD Unavailable Juanita Hauser RN Unavailable Unavaila David Martinez MD Unavailable Emilia Tang MD Primary Care Provider [phone] Maurilio Farley MD Unavailable Candida Turner MD Unavailable Rebeka Trinidad MD Primary Care Provider + [phone] Dom Quiñonez MD Unavailable Rachelle Nava LAND EXAMINER, MACHINERY MECHANIC Unavailable + [phone] Irais Naylor LAND EXAMINER, SET UP INSPECTOR Unavailable + [phone] Lorri Leo Annetta LAND EXAMINER, SET UP INSPECTOR Primary Care Provider + [phone] Rebeka Trinidad MD Primary Care Provider +[phone] AhmetAngélicamando Littlejohn LAND EXAMINER, SET UP INSPECTOR Primary Care Provider +[phone] Sharri Gaspar MD Unavailable Tani Biggs [facility] Primary Care Provider + [phone] Amber Aldrich LAND EXAMINER, SET UP INSPECTOR Unavailable Reason for Visit * Reason Comments Medication Refill Encounter Details Date Type Department Care Team (Late st Contact Info) Description 07/12/2020 Refill [facility] - Primary Care - [place] [address] [place] [address] Jackeline Dimas, LAND EXAMINER, [facility] [address] [place] [address] Medication Refill Social History Tobacco [...] 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 [...] CDT Telemedicine [facility] [address] [place] [address] Alize Acosta, LAND EXAMINER, SET UP INSPECTOR [address] [place] [address] 11/18/2024 3:45 PM CDT [facility] - [place] [address] [place] [address] David Salmon MD #[address] [phone] 11/24/2024 2:40 PM CDT Telemedicine [facility] [address] [place] [address] 01/03/2025 11:30 AM CDT [facility] - [place] [address] [place] [address] Rachelle Nava, LAND EXAMINER, MACHINERY MECHANIC [address] [place] [address] 03/04/2025 3:10 PM LOSS PREVENTION OFFICER Lab [facility] - Primary Care - [place] [address] [place] [address] [facility] 03/04/2025 3:30 PM LOSS PREVENTION OFFICER Office Visit [facility] - Primary Care - [place] [address] [place] [address] Tani Biggs PAC [address] [place] [address] 03/17/2025 1:30 PM LOSS PREVENTION OFFICER [facility] [address] [place] [address] AsifMelony kumari August, PAC [address] [place] [address] Discharge Disposition: Discharged to home or Selfcare 03/25/2025 1:20 PM LOSS PREVENTION OFFICER [facility] [address] [place] [address] Asif Melony August, PAC [address] [place] [address] Discharge Disposition: Discharged to home or Selfcare 04/25/2025 2:00 PM LOSS PREVENTION OFFICER [facility] Visit [facility]iology - [place] [address] [place] [address] Laisha Griffin DO [address] [address] 07/18/2025 1:00 PM CDT [facility] - Pulmonology & Sleep Medicine [facility] #[address] [place] [address] Dmo Quiñonez MD #[address] [place] [address] documented as of this encounter Visit Diagnoses Not on filedocumented in this encounter Additional Health Concerns Infection Onset Date Last Indicated Resolved Time COVID - 19 01/08/2021 01/08/2021 01/28/2021 12:1 6 AM LOSS PREVENTION OFFICER COVID - 19 03/12/2021 03/12/2021 04/01/2021 12:1 6 AM LOSS PREVENTION OFFICER COVID - 19 12/15/2021 12/15/2021 12/15/2021 7:26 PM CDT COVID - 19 Confirmed 12/15/2021 12/15/2021 022 12:16 AM CDT COVID - 19 04/18/2024 04/18/2024 04/18/2024 10:4 7 PM LOSS PREVENTION OFFICER Respiratory Rule-Out 05/06/2024 05/06/2024 025 9:20 AM LOSS PREVENTION OFFICER COVID - 19 05/06/2024 05/06/2024 05/06/2024 9:19 AM LOSS PREVENTION OFFICER Assessment Noted Time PHQ-9 Depression Total Score: 0 09/01/19 20 11:58 AM CDT documented as of this encounter Care Teams Roll Shop Supervisor Relationship Specialty Start Date End Date Jackeline Dimas APRN, SET UP INSPECTOR [address] [place] [address] PCP - General Advanced Practice Nurse 07/31/17 Emilia Tang MD [address] [place] [address] PCP - General Family Medicine 06/07/22 03/25/23 Rebeka Trinidad MD [address] [place] [address] PCP - General Family Medicine 03/26/23 03/29/24 Lorri Leo APRN, SET UP INSPECTOR [address] [place] [address] PCP - General Certified Nurse Practitioner 03/30/24 04/20/24 Rebeka Trinidad MD [address] [place] [address] PCP - General Family Medicine 04/21/24 04/21/24 Lorri Leo, LAND EXAMINER, SET UP INSPECTOR [address] [place] [address] PCP - General Certified Nurse Practitioner 04/22/24 05/30/24 Tani Biggs, PAC [address] [place] [address] PCP - General Physician Mother Baby Rn 05/31/24 Fiona Martinez, [place] Stringed Instrument Tuner 03/01/21 08/23/21 Phil Jacobo MD #[address] [place] [address] Consulting Physician Neurology 03/07/21 Rajiv Mccormack, KELI [address] [place] [address] Nurse Practitioner Gastroenterology 03/07/21 Renita Quezada RN [place] Stringed Instrument Tuner 05/09/21 08/23/21 Alize Acosta APRN, SET UP INSPECTOR [address] [place], [place] [address] Virtual [facility] Care (VAC) TEMPORARY STAFF ACCOUNTANT Advanced Practice Nurse 08/30/21 Dayo Chaney MD [address] [place] [address] Patient Safety Attendant Cardiovascular Disease - Cardiology 09/20/21 02/12/24 Juanita Mercado, [place] Registered Nurse Cardiology 12/24/21 02/12/24 David Salmon MD #[address] [address] Consulting Physician Endocrinology 01/15/22 Maurilio Farley MD #[address] [address] Consulting Physician Colon and Rectal Surgery 09/20/22 PhysicianCandida MD [address] [place] [address] Family Medicine 01/25/22 03/18/23 Dom Quiñonez MD #[address] [place] [address] Consulting Physician Pulmonary Disease 11/19/21 Rachelle Nava APRN, MACHINERY MECHANIC [address] [place] [address] Nurse Practitioner Advanced Practice Nurse 07/19/22 Irais Naylor, LAND EXAMINER, SET UP INSPECTOR #2 [facility] [address] [place] [address] Nurse Practitioner Cardiology 06/27/23 07/29/24 Sharri Gaspar MD 2 [facility] [address] [address] Consulting Physician Cardiology 04/26/24 Amber Aldrich APRN, SET UP INSPECTOR [address] [place] [address] Nurse Practitioner Cardiology 07/30/24 documented as of this encounter
--- OUTSIDE RECORDS SUMMARY | 2024-11-16 13:24 | XMS_ITS | Encounter Summary ---
Author Organization [facility] Address [address] [place] [address] Phone Care Team Providers Care Business Intern Name Role Phone Phil Jacobo MD Unavailable [phone] Rajiv Mccormack NP Unavailable Unavailable Alize Acosta HEALTH SOCIAL WORK PROFESSOR, FILM CRITIC Unavailable [phone] Dayo Chaney MD Unavailable Juanita Hauser RN Unavailable Unavaila David Martinez MD Unavailable Emilia Tang MD Primary Care Provider [phone] Maurilio Farley MD Unavailable PhysicianCandida MD Unavailable Rebeka Trinidad MD Primary Care Provider + [phone] Dom Quiñonez MD Unavailable Rachelle Nava HEALTH SOCIAL WORK PROFESSOR, COMMERCIAL PRINT SALESMAN Unavailable + [phone] Irais Naylor HEALTH SOCIAL WORK PROFESSOR, FILM CRITIC Unavailable + [phone] Lorri Leo HEALTH SOCIAL WORK PROFESSOR, FILM CRITIC Primary Care Provider + [phone] Rebeka Trinidad MD Primary Care Provider [phone] Lorri Leo HEALTH SOCIAL WORK PROFESSOR, FILM CRITIC Primary Care Provider + [phone] Sharri Gaspar MD Unavailable Tani Biggs Primary Care Provider + [phone] Valdemar Amber Burnettee HEALTH SOCIAL WORK PROFESSOR, FILM CRITIC Unavailable Reason for Visit * Reason Comments Medication Refill Encounter Details Date Type Department Care Team (Late st Contact Info) Description 12/19/2022 Refill [facility] - Neurology - [place] [address] [place] [address] Rachelle Nava, HEALTH SOCIAL WORK PROFESSOR, COMMERCIAL PRINT SALESMAN [address] [place] [address] Medication Refill Social History Tobacco Use Types [...] 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 [...] Dept 11/06/22 Office Visit Emilia Tang MD [facility] 10/10/22 Office Visit Emilia Tang MD [facility] 09/16/22 Office Visit Rachelle Nava APRN, [facility] 09/06/22 Office Visit Emilia Tang MD [facility] 07/19/22 Office Visit Rachelle Nava APRN, COMMERCIAL PRINT SALESMAN [facility] 06/07/22 Office Visit Emilia Tang MD [facility] Showing recent visits within past 365 days and meeting all other requirements Future Appointments Date Type Provider Dept 02/06/23 Appointment Emilia Tang MD [facility] 03/19/23 Appointment Rachelle Nava APRN, [facility] Showing future appointments within next 90 days and meeting all other requirements documented in this encounter Plan of Treatment Upcoming Encounters Date Type Department Care Team (Late st Contact Info) Description 11/17/2024 2:00 PM CDT Telemedicine [facility] [address] [place] [address] Alize Acosta, HEALTH SOCIAL WORK PROFESSOR, FILM CRITIC [address] [place] [address] 11/18/2024 3:45 PM CDT Office Visit [facility] - Endocrinology - [place] [address] [place] [address] David Salmon MD #[address] [address] 11/24/2024 2:40 PM CDT Telemedicine [facility] [address] [place] [address] 01/03/2025 11:30 AM CDT [facility] [place] [address] [place] [address] Rachelle Nava, HEALTH SOCIAL WORK PROFESSOR, COMMERCIAL PRINT SALESMAN [address] [place] [address] 03/04/2025 3:10 PM AUTOMATIC SHIRRING MACHINE OPERATOR Lab [facility] Primary Care - [place] [address] [place] [address] [facility] 03/04/2025 3:30 PM AUTOMATIC SHIRRING MACHINE OPERATOR Office Visit [facility] Primary Care - [place] [address] [place] [address] Tani Biggs, [place] [address] [place] [address] 03/17/2025 1:30 PM AUTOMATIC SHIRRING MACHINE OPERATOR Lab [facility] Services [address] [place] [address] Melony Asif, ESTRELLITA [address] [place] [address] Discharge Disposition: Discharged to home or Selfcare 03/25/2025 1:20 PM AUTOMATIC SHIRRING MACHINE OPERATOR [facility] [address] [place] [address] Melony Asif Stacey, PAC [address] [place] [address] Discharge Disposition: Discharged to home or Selfcare 04/25/2025 2:00 PM AUTOMATIC SHIRRING MACHINE OPERATOR Office Visit [facility] - Cardiology - [place] [address] [place] [address] Laisha Griffin, DO [address] [address] 07/18/2025 1:00 PM CDT Office Visit [facility] - Pulmonology & Sleep Medicine [facility] #[address] [place] [address] Dom Quiñonez MD [address] [place] [address] documented as of this encounter Goals Goal [...] diet Depression Depression Improving(0 03/15/2022 2:27 PM AUTOMATIC SHIRRING MACHINE OPERATOR) No Breanne Saldana, SUPERVISOR ALUM PLANT Note: Goal/Objective: Decrease symptoms of depression associated [...] 19 04/18/2024 04/18/2024 04/18/2024 10:4 7 PM AUTOMATIC SHIRRING MACHINE OPERATOR Respiratory Rule-Out 05/06/2024 05/06/2024 025 9:20 AM AUTOMATIC SHIRRING MACHINE OPERATOR COVID - 19 05/06/2024 05/06/2024 05/06/2024 9:19 AM AUTOMATIC SHIRRING MACHINE OPERATOR Assessment Noted Time PHQ-9 Depression Total Score: 18 11/06/ 023 9:24 AM CDT documented as of this encounter Care Teams Business Intern Relationship Specialty Start Date End Date Emilia Tang MD [address] [place] [address] PCP - General Family Medicine 06/07/22 03/25/23 Rebeka Trinidad MD [address] [place] [address] PCP - General Family Medicine 03/26/23 03/29/24 Lorri Leo APRN, FILM CRITIC [address] [place] [address] PCP - General Certified Nurse Practitioner 03/30/24 04/20/24 Rebeka Trinidad MD [address] [place] [address] PCP - General Family Medicine 04/21/24 04/21/24 Lorri Leo APRN, FILM CRITIC [address] [place] [address] PCP - General Certified Nurse Practitioner 04/22/24 05/30/24 Tani Biggs PAC [address] [place] [address] PCP - General Physician Tmh Teacher 05/31/24 Phil Jacobo MD [address] [place] [address] Consulting Physician Neurology 03/07/21 Rajiv Mccormack, KELI [address] [place] [address] Nurse Practitioner Gastroenterology 03/07/21 Alize Acosta, HEALTH SOCIAL WORK PROFESSOR, FILM CRITIC [address] [place] [address] Virtual Advanced Care (VAC) WASTEWATER TREATMENT PLANT ATTENDANT Advanced Practice Nurse 08/30/21 Dayo Chaney MD [address] [place] [address] Setter Out Cardiovascular Disease - Cardiology 09/20/21 02/12/24 Juanita Mercado RN [place] Registered Nurse Cardiology 12/24/21 02/12/24 David Salmon MD #[address] [address] Consulting Physician Endocrinology 01/15/22 Maurilio Farley MD #[address] [address] Consulting Physician Colon and Rectal Surgery 09/20/22 Physician, Candida Davis MD [address] [place] [address] Family Medicine 01/25/22 03/18/23 Dom Quiñonez MD #[address] [place] [address] Consulting Physician Pulmonary Disease 11/19/21 Rachelle Nava APRN, COMMERCIAL PRINT SALESMAN [address] [place] [address] Nurse Practitioner Advanced Practice Nurse 07/19/22 Irais Naylor APRN, FILM CRITIC #2 [facility] [address] [place] [address] Nurse Practitioner Cardiology 06/27/23 07/29/24 Sharri Gaspar MD [address] [place] [place] [place] [address] Consulting Physician Cardiology 04/26/24 Amber Aldrich APRN, FILM CRITIC #2 [facility] [address] Nurse Practitioner Cardiology 07/30/24 documented as of this encounter
--- OUTSIDE RECORDS SUMMARY | 2024-11-16 13:24 | XMS_ITS | Encounter Summary ---
Author Organization [facility] Address [address] [place] [address] Phone Care Team Providers Care Turfgrass Technician Name Role Phone Phil Jacobo MD Unavailable [phone] Rajiv Mccormack NP Unavailable Unavailable Alize Acosta WELLNESS SPECIALIST, MATERIALS MANAGEMENT CLERK Unavailable [phone] Dayo Chaney MD Unavailable Juanita Hauser RN Unavailable Unavaila David Martinez MD Unavailable Emilia Tang MD Primary Care Provider [phone] Maurilio Farley MD Unavailable PhysicianCandida MD Unavailable Rebeka Trinidad MD Primary Care Provider + [phone] Dom Quiñonez MD Unavailable Rachelle Nava WELLNESS SPECIALIST, CEREAL MAKER Unavailable + [phone] Irais Naylor WELLNESS SPECIALIST, MATERIALS MANAGEMENT CLERK Unavailable + [phone] Lorri Leo WELLNESS SPECIALIST, MATERIALS MANAGEMENT CLERK Primary Care Provider + [phone] Rebeka Trinidad MD Primary Care Provider + [phone] Lorri Leo WELLNESS SPECIALIST, MATERIALS MANAGEMENT CLERK Primary Care Provider + [phone] Sharri Gaspar MD Unavailable Tani Biggs Primary Care Provider + [phone] Valdemar Amber Dinora WELLS, MATERIALS MANAGEMENT CLERK Unavailable Reason for Visit * Reason Comments Medication Refill Encounter Details Date Type Department Care Team (Late st Contact Info) Description 09/09/2022 Refill [facility] - Endocrinology - [place] #2 [place] [address] David Salmon MD #[address] [address] Medication Refill Social History Tobacco [...] 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 [...] PM CDT Telemedicine [facility] [address] [place] [phone] Alize Acosta APRN, MATERIALS MANAGEMENT CLERK [address] [place] [address] 11/18/2024 3:45 PM CDT Office Visit [facility] - Endocrinology - [place] #2 [place] [address] David Salmon MD #[address] [address] 11/24/2024 2:40 PM CDT [facility]icine [facility] [address] [place] [phone] 01/03/2025 11:30 AM CDT [facility] [place] #2 [place] [address] Rachelle Nava APRN, CEREAL MAKER #2 [place] [address] 03/04/2025 3:10 PM LOGISTICS AND PLANNING MANAGER Lab [facility] - Primary Care - [address] [phone] Lab, [facility] 03/04/2025 3:30 PM LOGISTICS AND PLANNING MANAGER [facility] - [place] [address] [place] [address] Tani Biggs, [facility] [address] [place] [address] 03/17/2025 1:30 PM LOGISTICS AND PLANNING MANAGER [facility] [address] [place] [phone] Melony Asif Stacey, [facility] [address] [place] [address] Discharge Disposition: Discharged to home or Selfcare 03/25/2025 1:20 PM LOGISTICS AND PLANNING MANAGER [facility] [address] [place] [address] Melony Asif Stacey, [facility] [address] [place] [address] Discharge Disposition: Discharged to home or Selfcare 04/25/2025 2:00 PM LOGISTICS AND PLANNING MANAGER Office Visit [facility] - Cardiology - [place] [address] [place] [address] Laisha Griffin, DO [address] [address] 07/18/2025 1:00 PM CDT Office Visit [facility] - Pulmonology & Sleep Medicine [facility] #2 [place] [address] Dom Quiñonez MD #2 [place] [address] documented as of this encounter Goals Goal [...] diet Depression Depression Improving(0 03/15/2022 2:27 PM LOGISTICS AND PLANNING MANAGER) No Breanne Saldana LCSW Note: Goal/Objective: [...] Date Last Indicated Resolved Time COVID - 04/18/2024 04/18/2024 04/18/2024 10:4 7 PM LOGISTICS AND PLANNING MANAGER Respiratory Rule-Out 05/06/2024 05/06/2024 025 9:20 AM LOGISTICS AND PLANNING MANAGER COVID - 05/06/2024 05/06/2024 05/06/2024 9:19 AM LOGISTICS AND PLANNING MANAGER Assessment Noted Time PHQ-9 Depression Total Score: 24 022 3:31 PM LOGISTICS AND PLANNING MANAGER documented as of this encounter Care Teams Turfgrass Technician Relationship Specialty Start Date End Date Emilia Tang MD [address] [place] [address] PCP - General Family Medicine 06/07/22 03/25/23 Rebeka Trinidad MD [address] [place] [address] PCP - General Family Medicine 03/26/23 03/29/24 Lorri Leo APRN, MATERIALS MANAGEMENT CLERK [address] [place] [address] PCP - General Certified Nurse Practitioner 03/30/24 04/20/24 Rebeka Trinidad MD [address] [place] [id number] PCP - General Family Medicine 04/21/24 04/21/24 Lorri Leo APRN, MATERIALS MANAGEMENT CLERK [address] [place], [place] [id number] PCP - General Certified Nurse Practitioner 04/22/24 05/30/24 Tani Biggs, PAC [address] [place] [address] PCP - General Physician Ice Cutter 05/31/24 Phil Jacobo MD #2 [place] [address] Consulting Physician Neurology 03/07/21 Rajiv Mccormack, KELI #2 [place] [address] Nurse Practitioner Gastroenterology 03/07/21 Alize Acosta APRN, MATERIALS MANAGEMENT CLERK [address] [place] [address] Virtual [facility] (VAC) DIRECTOR GLOBAL DEVELOPMENT Advanced Practice Nurse 08/30/21 Dayo Chaney MD [facility] [place] [address] Corporate Administrative Assistant Cardiovascular Disease - Cardiology 09/20/21 02/12/24 Juanita Mercado RN [place] Registered Nurse Cardiology 12/24/21 02/12/24 David Salmon MD #[address] [phone] Consulting Physician Endocrinology 01/15/22 Maurilio Farley MD #[address] [address] Consulting Physician Colon and Rectal Surgery 09/20/22 PhysicianCandida MD [address] [place] [address] Family Medicine 01/25/22 03/18/23 Dom Quiñonez MD #2 [place] [address] Consulting Physician Pulmonary Disease 11/19/21 Rachelle Nava, WELLNESS SPECIALIST, CEREAL MAKER #2 [place] [address] Nurse Practitioner Advanced Practice Nurse 07/19/22 Irais Naylor WELLNESS SPECIALIST, MATERIALS MANAGEMENT CLERK #[address] [address] Nurse Practitioner Cardiology 06/27/23 07/29/24 Sharri Gaspar MD [address] [address] Consulting Physician Cardiology 04/26/24 Amber Aldrich WELLNESS SPECIALIST, MATERIALS MANAGEMENT CLERK #2 [place] [phone] Nurse Practitioner Cardiology 07/30/24 documented as of this encounter
--- OUTSIDE RECORDS SUMMARY | 2024-11-16 13:24 | XMS_ITS | Encounter Summary ---
Author Organization [facility] Address [address] [place] [address] Phone Care Team Providers Care Military Education Coordinator Name Role Phone Phil Jacobo MD Unavailable [phone] Rajiv Mccormack NP Unavailable Unavailable Alize Acosta COMMERCIAL TECHNICIAN, COURIER Unavailable +[phone] Dayo Chaney MD Unavailable Juanita Hauser RN Unavailable Unavaila David Martinez MD Unavailable Emilia Tang MD Primary Care Provider [phone] Maurilio Farley MD Unavailable PhysicianCandida MD Unavailable Rebeka Trinidad MD Primary Care Provider + [phone] Dom Quiñonez MD Unavailable Rachelle Nava COMMERCIAL TECHNICIAN, PAPER CONE DRYING MACHINE OPERATOR Unavailable + [phone] Irais Naylor COMMERCIAL TECHNICIAN, COURIER Unavailable + [phone] Lorri Leo COMMERCIAL TECHNICIAN, COURIER Primary Care Provider + [phone] Rebeka Trinidad MD Primary Care Provider + [phone] Lorri Leo COMMERCIAL TECHNICIAN, COURIER Primary Care Provider + [phone] Sharri Gaspar MD Unavailable Tani Biggs Primary Care Provider + [phone] ValdemarAmber Dinora WELLS, COURIER Unavailable Reason for Visit * Reason Comments Medication Refill Encounter Details Date Type Department Care Team (Late st Contact Info) Description 12/01/2022 Refill [facility] - Primary Care - [place] [address] [place] [address] Emilia Tang MD [address] [place] [address] Medication Refill Social History Tobacco [...] 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 [...] CDT Telemedicine [facility] [address] [place] [address] Alize Acosta, COMMERCIAL TECHNICIAN, COURIER [address] [place] [address] 11/18/2024 3:45 PM CDT Office Visit [facility] Medical [facility] - Endocrinology - [place] #[address] [place] [address] David Salmon MD #[address] [address] 11/24/2024 2:40 PM CDT Telemedicine [facility] [address] [place] [address] 01/03/2025 11:30 AM CDT [facility] [place] #[address] [place] [address] Rachelle Nava, COMMERCIAL TECHNICIAN, PAPER CONE DRYING MACHINE OPERATOR #[address] [place] [address] 03/04/2025 3:10 PM REAL ESTATE PHOTOGRAPHER Lab [facility] Primary [place] [address] [facility], [facility] 03/04/2025 3:30 PM REAL ESTATE PHOTOGRAPHER Office Visit [facility] Primary [facility] [place] [phone] Tani Biggs, [facility] [address] [place] [address] 03/17/2025 1:30 PM REAL ESTATE PHOTOGRAPHER Lab [facility] Oncology Services [address] [place] [phone] AsifMelony kumari Stacey, [facility] [address] [place] [address] Discharge Disposition: Discharged to home or Selfcare 03/25/2025 1:20 PM REAL ESTATE PHOTOGRAPHER Office Visit [facility] [address] [place] [address] DawsonMelony Stacey, [facility] [address] [place] [address] Discharge Disposition: Discharged to home or Selfcare 04/25/2025 2:00 PM REAL ESTATE PHOTOGRAPHER Office Visit [facility] - Cardiology - [place] [address] [place] [address] Laisha Griffin, DO [address] [address] 07/18/2025 1:00 PM CDT Office Visit [facility] - Pulmonology & Sleep Medicine [facility] #[address] [place] [address] Dom Quiñonez MD [address] [place] [address] documented as of this encounter [...] diet Depression Depression Improving(0 03/15/2022 2:27 PM REAL ESTATE PHOTOGRAPHER) No Breanne Saldana LCSW Note: Goal/Objective: Decrease [...] 19 04/18/2024 04/18/2024 04/18/2024 10:4 7 PM REAL ESTATE PHOTOGRAPHER Respiratory Rule-Out 05/06/2024 05/06/2024 025 9:20 AM REAL ESTATE PHOTOGRAPHER COVID - 05/06/2024 05/06/2024 05/06/2024 9:19 AM REAL ESTATE PHOTOGRAPHER Assessment Noted Time PHQ-9 Depression Total Score: 18 023 9:24 AM CDT documented as of this encounter Care Teams Military Education Coordinator Relationship Specialty Start Date End Date Emilia Tang MD [address] [place] [address] PCP - General Family Medicine 06/07/22 03/25/23 Rebeka Trinidad MD [address] [place] [address] PCP - General Family Medicine 03/26/23 03/29/24 Lorri Leo, COMMERCIAL TECHNICIAN, COURIER [address] [place] [address] PCP - General Certified Nurse Practitioner 03/30/24 04/20/24 Rebeka Trinidad MD [address] [place] [address] PCP - General Family Medicine 04/21/24 04/21/24 Lorri Leo, COMMERCIAL TECHNICIAN, COURIER [address] [place] [address] PCP - General Certified Nurse Practitioner 04/22/24 05/30/24 Tani Biggs, PAC [address] [place] [address] PCP - General Physician Logistics Technician 05/31/24 Phil Jacobo MD #[address] [place] [phone] Consulting Physician Neurology 03/07/21 Rajiv Mccormack, SHIFT SUPERVISOR FILM PROCESSING #[address] [place] [address] Nurse Practitioner Gastroenterology 03/07/21 Alize Acosta, COMMERCIAL TECHNICIAN, COURIER [address] [place] [address] Virtual Advanced Care (VAC) COAL WASHER Advanced Practice Nurse 08/30/21 Dayo Chaney MD [address] [place] [address] Surveyor Chain Helper Cardiovascular Disease - Cardiology 09/20/21 02/12/24 Juanita Mercado RN [place] Registered Nurse Cardiology 12/24/21 02/12/24 David Salmon MD #[address] [phone] Consulting Physician Endocrinology 01/15/22 Maurilio Farley MD #[address] [address] Consulting Physician Colon and Rectal Surgery 09/20/22 Physician, Candida Davis MD [address] [place] [address] Family Medicine 01/25/22 03/18/23 Dom Quiñonez MD #[address] [place] [address] Consulting Physician Pulmonary Disease 11/19/21 Rachelle Nava, COMMERCIAL TECHNICIAN, PAPER CONE DRYING MACHINE OPERATOR #[address] [place] [address] Nurse Practitioner Advanced Practice Nurse 07/19/22 Irais Naylor, COMMERCIAL TECHNICIAN, COURIER #[address] [address] Nurse Practitioner Cardiology 06/27/23 07/29/24 Sharri Gaspar MD [address] [address] Consulting Physician Cardiology 04/26/24 Amber Aldrich APRN, COURIER #2 [place] [address] Nurse Practitioner Cardiology 07/30/24 documented as of this encounter
--- OUTSIDE RECORDS SUMMARY | 2024-11-16 13:24 | XMS_ITS | Encounter Summary ---
Author Organization [facility] Address [address] [place] [address] Phone Care Team Providers Care Shrimp Packer Name Role Phone Phil Jacobo MD Unavailable [phone] Rajiv Mccormack NP Unavailable Unavailable Alize Acosta FIELD OBSERVER, SERVICE OR WORK DISPATCHER CHIEF Unavailable +[phone] Dayo Chaney MD Unavailable Juanita Hauser RN Unavailable Unavaila David Martinez MD Unavailable Emilia Tang MD Primary Care Provider [phone] Maurilio Farley MD Unavailable PhysicianCandida MD Unavailable Rebeka Trinidad MD Primary Care Provider + [phone] Dom Quiñonez MD Unavailable Rachelle Nava FIELD OBSERVER, KNOCK UP ASSEMBLER Unavailable + [phone] Irais Naylor FIELD OBSERVER, SERVICE OR WORK DISPATCHER CHIEF Unavailable + [phone] Lorri Leo FIELD OBSERVER, SERVICE OR WORK DISPATCHER CHIEF Primary Care Provider + [phone] Rebeka Trinidad MD Primary Care Provider + [phone] Lorri Leo FIELD OBSERVER, SERVICE OR WORK DISPATCHER CHIEF Primary Care Provider + [phone] Sharri Gaspar MD Unavailable Tani Biggs Primary Care Provider + [phone] Valdemar Amber Dinora WELLS, SERVICE OR WORK DISPATCHER CHIEF Unavailable Reason for Visit * Reason Comments Medication Refill Encounter Details Date Type Department Care Team (Late st Contact Info) Description 09/04/2022 Refill [facility] - Endocrinology - [place] #[address] [place] [address] David Salmon MD #[address] [address] Medication Refill Social History Tobacco [...] 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 TRUEplus 5-Bevel Pen [place] 32G X 4 MM Misc [Pharmacy Med Name: TRUEPLUS 5- BEVEL PEN NEEDLE [id number]] 100 Each 1 Sig: USE DAILY DIRECTED. Next appt: 10/31/2022 documented in this encounter Plan of Treatment Upcoming Encounters Date Type Department Care Team (Late st Contact Info) Description 11/17/2024 2:00 PM CDT Telemedicine [facility] [address] [place] [phone] Alize Acosta APRN, SERVICE OR WORK DISPATCHER CHIEF [address] [place] [address] 11/18/2024 3:45 PM CDT Office Visit [facility] - Endocrinology - [place] #[address] [place] [address] David Salmon MD #[address] [address] 11/24/2024 2:40 PM CDT Telemedicine [facility] [address] [place] [address] 01/03/2025 11:30 AM CDT [facility] [place] #[address] [place] [address] Rachelle Nava APRN, KNOCK UP ASSEMBLER #[address] [place] [address] 03/04/2025 3:10 PM PRODUCT DEVELOPMENT CHEMIST Lab [facility] - Primary Care - [address] [phone] [facility] 03/04/2025 3:30 PM PRODUCT DEVELOPMENT CHEMIST Office Visit [facility] - Primary Care - [place] [address] [place] [address] Tani Biggs, PAC [address] [place] [address] 03/17/2025 1:30 PM PRODUCT DEVELOPMENT CHEMIST Lab [facility] Oncology Services [address] [place] [address] Melony Asif Stacey, PAC [address] [place] [address] Discharge Disposition: Discharged to home or Selfcare 03/25/2025 1:20 PM PRODUCT DEVELOPMENT CHEMIST Office Visit [facility] Oncology Services [address] [place] [address] Melony Asif Stacey, PAC [address] [place] [address] Discharge Disposition: Discharged to home or Selfcare 04/25/2025 2:00 PM PRODUCT DEVELOPMENT CHEMIST Office Visit [facility] - Cardiology - [place] #[address] [place] [address] Laisha Griffin, DO [address] [address] 07/18/2025 1:00 PM CDT Office Visit [facility] - Pulmonology & Sleep Medicine [facility] #2 [place] [address] Dom Quiñonez MD #[address] [place] [address] documented as of this encounter [...] diet Depression Depression Improving(0 03/15/2022 2:27 PM PRODUCT DEVELOPMENT CHEMIST) No Breanne Saldana LCSW Note: Goal/Objective: Decrease [...] - 04/18/2024 04/18/2024 04/18/2024 10:4 7 PM PRODUCT DEVELOPMENT CHEMIST Respiratory Rule-Out 05/06/2024 05/06/2024 025 9:20 AM PRODUCT DEVELOPMENT CHEMIST COVID - 05/06/2024 05/06/2024 05/06/2024 9:19 AM PRODUCT DEVELOPMENT CHEMIST Assessment Noted Time PHQ-9 Depression Total Score: 24 022 3:31 PM PRODUCT DEVELOPMENT CHEMIST documented as of this encounter Care Teams Shrimp Packer Relationship Specialty Start Date End Date Emilia Tang MD [address] [place] [address] PCP - General Family Medicine 06/07/22 03/25/23 Rebeka Trinidad MD [address] [place] [address] PCP - General Family Medicine 03/26/23 03/29/24 Lorri Leo APRN, SERVICE OR WORK DISPATCHER CHIEF [address] [place] [address] PCP - General Certified Nurse Practitioner 03/30/24 04/20/24 Rebeka Trinidad MD [address] [place] [address] PCP - General Family Medicine 04/21/24 04/21/24 Lorri Leo APRN, SERVICE OR WORK DISPATCHER CHIEF [address] [place], [place] [phone] PCP - General Certified Nurse Practitioner 04/22/24 05/30/24 Tani Biggs, PAC [address] [place] [address] PCP - General Physician Hydroelectric Plant Electrical Engineer 05/31/24 Phil Jacobo MD #[address] [place] [address] Consulting Physician Neurology 03/07/21 Rajiv Mccormack, TURRET PRESS OPERATOR #[address] [place] [address] Nurse Practitioner Gastroenterology 03/07/21 Alize Acosta, RUSSELL, SERVICE OR WORK DISPATCHER CHIEF [address] [place] [address] Virtual Advanced Care (VAC) DANCE COACH Advanced Practice Nurse 08/30/21 Dayo Chaney MD [address] [place] [address] Green Promotions Specialist Cardiovascular Disease - Cardiology 09/20/21 02/12/24 Juanita Mercado RN [place] Registered Nurse Cardiology 12/24/21 02/12/24 David Salmon MD #[address] [address] Consulting Physician Endocrinology 01/15/22 Maurilio Farley MD #[address] [address] Consulting Physician Colon and Rectal Surgery 09/20/22 PhysicianCandida MD [address] [place] [address] Family Medicine 01/25/22 03/18/23 Dom Quiñonez MD #2 [place] [address] Consulting Physician Pulmonary Disease 11/19/21 Rachelle Nava, FIELD OBSERVER, KNOCK UP ASSEMBLER #[address] [place] [address] Nurse Practitioner Advanced Practice Nurse 07/19/22 Irais Naylor, FIELD OBSERVER, SERVICE OR WORK DISPATCHER CHIEF #[address] [address] Nurse Practitioner Cardiology 06/27/23 07/29/24 Sharri Gaspar MD [address] [address] Consulting Physician Cardiology 04/26/24 Amber Aldrich APRN, SERVICE OR WORK DISPATCHER CHIEF #2 [place] [address] Nurse Practitioner Cardiology 07/30/24 documented as of this encounter
--- OUTSIDE RECORDS SUMMARY | 2024-11-16 13:24 | XMS_ITS | Encounter Summary ---
Author Organization [facility] Address [address] [place] [address] Phone Care Team Providers Care Electron Beam Operator Name Role Phone Jackeline Dimas PROFESSIONAL DEVELOPMENT DIRECTOR, ROLL TENSION TESTER Primary Care Provider Fiona Martinez TRAFFIC OPERATOR Unavailable Unavailab Phil Ellis MD Unavailable +[phone] Rajiv Mccormack NP Unavailable Unavailable Renita Quezada RN Unavailable Unavailable Alize Acosta PROFESSIONAL DEVELOPMENT DIRECTOR, ROLL TENSION TESTER Unavailable +[phone] Dayo Chaney MD Unavailable Juanita Hauser RN Unavailable Unavaila David Martinez MD Unavailable Emilia Tang MD Primary Care Provider [phone] Maurilio Farley MD Unavailable Candida Turner MD Unavailable Rebeka Trinidad MD Primary Care Provider + [phone] Dom Quiñonez MD Unavailable Rachelle Nava PROFESSIONAL DEVELOPMENT DIRECTOR, FIELD SERVICE REPRESENTATIVE Unavailable + [phone] Irais Naylor PROFESSIONAL DEVELOPMENT DIRECTOR, ROLL TENSION TESTER Unavailable + [phone] Lorri Leo Annetta PROFESSIONAL DEVELOPMENT DIRECTOR, ROLL TENSION TESTER Primary Care Provider + [phone] Rebeka Trinidad MD Primary Care Provider + [phone] AhmetAngélicamando Littlejohn PROFESSIONAL DEVELOPMENT DIRECTOR, ROLL TENSION TESTER Primary Care Provider +[phone] Sharri Gaspar MD Unavailable Tani Biggs [facility] Primary Care Provider + [phone] Amber Aldrich PROFESSIONAL DEVELOPMENT DIRECTOR, ROLL TENSION TESTER Unavailable Reason for Visit * Reason Comments Medication Refill Encounter Details Date Type Department Care Team (Late Contact Info) Description 02/02/2020 Refill [facility] - Primary Care - [place] [address] [place] [address] Belkis Mcnair APRN, [facility] [address] [place] [address] Medication Refill Social History Tobacco Use Types [...] 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 Yes 02/01/2020 11:29 AM DIRECTOR ORACLE documented as of this encounter Plan of Treatment Upcoming Encounters Date Type Department Care Team (Late st Contact Info) Description 11/17/2024 2:00 PM CDT Telemedicine [facility] [address] [place] [address] Alize Acosta, PROFESSIONAL DEVELOPMENT DIRECTOR, ROLL TENSION TESTER [address] [place] [address] 11/18/2024 3:45 PM CDT Office Visit [facility] Medical [facility] - Endocrinology - [place] #2 [place] [address] David Salmon MD #[address] [address] 11/24/2024 2:40 PM CDT Telemedicine [facility] [address] [place] [address] 01/03/2025 11:30 AM CDT [facility] [place] [facility] [place] #[address] [place] [address] Rachelle Nava, PROFESSIONAL DEVELOPMENT DIRECTOR, FIELD SERVICE REPRESENTATIVE [address] [place] [address] 03/04/2025 3:10 PM DIRECTOR ORACLE Lab [facility] Primary Care - [place] [address] [place] [address] [facility] 03/04/2025 3:30 PM DIRECTOR ORACLE Office Visit [facility] Primary [facility] - [place] [address] [place] [address] Tani Biggs PAC [address] [place] [address] 03/17/2025 1:30 PM DIRECTOR ORACLE Lab [facility] Oncology Services [address] [place] [address] Melony Asif August, PAC [address] [place] [address] Discharge Disposition: Discharged to home or Selfcare 03/25/2025 1:20 PM DIRECTOR ORACLE [facility] [address] [place] [address] Melony Asif August, PAC [address] [place] [address] Discharge Disposition: Discharged to home or Selfcare 04/25/2025 2:00 PM DIRECTOR ORACLE Office Visit [facility] - Cardiology - [place] #2 [place] [address] Laisha Griffin, DO [address] [address] 07/18/2025 1:00 PM CDT Office Visit [facility] - Pulmonology & Sleep Medicine [facility] #2 [place] [address] Dom Quiñonez MD #2 [place] [address] documented as of this encounter Visit Diagnoses Not on filedocumented in this encounter Additional Health Concerns Infection Onset Date Last Indicated Resolved Time COVID - 19 01/08/2021 01/08/2021 01/28/2021 12:1 6 AM DIRECTOR ORACLE COVID - 19 03/12/2021 03/12/2021 04/01/2021 12:1 6 AM DIRECTOR ORACLE COVID - 19 12/15/2021 12/15/2021 12/15/2021 7:26 PM CDT COVID - 19 Confirmed 12/15/2021 12/15/2021 022 12:16 AM CDT COVID - 19 04/18/2024 04/18/2024 04/18/2024 10:4 7 PM DIRECTOR ORACLE Respiratory Rule-Out 05/06/2024 05/06/2024 025 9:20 AM DIRECTOR ORACLE COVID - 19 05/06/2024 05/06/2024 05/06/2024 9:19 AM DIRECTOR ORACLE Assessment Noted Time PHQ-9 Depression Total Score: 0 09/01/19 11:58 AM CDT documented as of this encounter Care Teams Electron Beam Operator Relationship Specialty Start Date End Date Jackeline Dimas PROFESSIONAL DEVELOPMENT DIRECTOR, ROLL TENSION TESTER [address] [place] [address] PCP - General Advanced Practice Nurse 07/31/17 Emilia Tang MD [address] [place] [address] PCP - General Family Medicine 06/07/22 03/25/23 Rebeka Trinidad MD [address] [place] [address] PCP - General Family Medicine 03/26/23 03/29/24 Lorri Leo APRN, ROLL TENSION TESTER [address] [place] [address] PCP - General Certified Nurse Practitioner 03/30/24 04/20/24 Rebeka Trinidad MD [address] [place] [address] PCP - General Family Medicine 04/21/24 04/21/24 Lorri Leo APRN, ROLL TENSION TESTER [address] [place] [address] PCP - General Certified Nurse Practitioner 04/22/24 05/30/24 Tani Biggs, PAC [address] [place] [address] PCP - General Physician Press Operator Instant Print Shop 05/31/24 Fiona Martinez LSW [place] City Dispatch Supervisor 03/01/21 08/23/21 Phil Jacobo MD #2 [place] [address] Consulting Physician Neurology 03/07/21 Rajiv Mccormack, KELI [address] [place] [address] Nurse Practitioner Gastroenterology 03/07/21 Renita Quezada RN [place] City Dispatch Supervisor 05/09/21 08/23/21 Alize Acosta, PROFESSIONAL DEVELOPMENT DIRECTOR, ROLL TENSION TESTER [address] [place] [address] Virtual Advanced Care (VAC) PARALEGAL SPECIALIST Advanced Practice Nurse 08/30/21 Dayo Chaney MD [address] [place] [address] Binder Folder Operator Cardiovascular Disease - Cardiology 09/20/21 02/12/24 Juanita Mercado, [place] Registered Nurse Cardiology 12/24/21 02/12/24 David Salmon MD #[address] [phone] Consulting Physician Endocrinology 01/15/22 Maurilio Farley MD #[address] [address] Consulting Physician Colon and Rectal Surgery 09/20/22 PhysicianCandida MD [address] [place] [address] Family Medicine 01/25/22 03/18/23 Dom Quiñonez MD #2 [place] [address] Consulting Physician Pulmonary Disease 11/19/21 Rachelle Nava, PROFESSIONAL DEVELOPMENT DIRECTOR, FIELD SERVICE REPRESENTATIVE #2 [place] [address] Nurse Practitioner Advanced Practice Nurse 07/19/22 Irais Naylor, PROFESSIONAL DEVELOPMENT DIRECTOR, ROLL TENSION TESTER #[address] [address] Nurse Practitioner Cardiology 06/27/23 07/29/24 Sharri Gaspar MD [address] [address] Consulting Physician Cardiology 04/26/24 Amber Aldrich APRN, ROLL TENSION TESTER #2 [place] [address] Nurse Practitioner Cardiology 07/30/24 documented as of this encounter
--- OUTSIDE RECORDS SUMMARY | 2024-11-16 13:24 | XMS_ITS | Encounter Summary ---
Author Organization [facility] Address [address] [place] [address] Phone Care Team Providers Care Grounds Person Name Role Phone Jackeline Dimas ASBESTOS MICROSCOPIST, SYSTEMS PROJECT MANAGER Primary Care Provider Fiona Martinez STAFF FORESTER Unavailable Unavailab Phil Ellis MD Unavailable [phone] Rajiv Mccormack NP Unavailable Unavailable Renita Quezada RN Unavailable Unavailable Alize Acosta ASBESTOS MICROSCOPIST, SYSTEMS PROJECT MANAGER Unavailable +[phone] Dayo Chaney MD Unavailable Juanita Hauser RN Unavailable Unavaila David Martinez MD Unavailable Emilia Tang MD Primary Care Provider [phone] Maurilio Farley MD Unavailable Candida Turner MD Unavailable Rebeka Trinidad MD Primary Care Provider + [phone] Dom Quiñonez MD Unavailable Rachelle Nava ASBESTOS MICROSCOPIST, SMASHER Unavailable + [phone] Irais Naylor ASBESTOS MICROSCOPIST, SYSTEMS PROJECT MANAGER Unavailable + [phone] AhmetAngélicamando Littlejohn ASBESTOS MICROSCOPIST, SYSTEMS PROJECT MANAGER Primary Care Provider + [phone] Rebeka Trinidad MD Primary Care Provider + [phone] Lorri Leo ASBESTOS MICROSCOPIST, SYSTEMS PROJECT MANAGER Primary Care Provider [phone] Sharri Gaspar MD Unavailable Tani Biggs 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 [...] Description 11/17/2024 2:00 PM CDT [facility]medicine [facility] [address] [place] [address] Alize Acosta, ASBESTOS MICROSCOPIST, SYSTEMS PROJECT MANAGER [address] [place] [address] 11/18/2024 3:45 PM CDT Office Visit [facility] - Endocrinology - [place] [address] [place] [address] David Salmon MD #[address] [address] 11/24/2024 2:40 PM CDT Telemedicine [facility] [address] [place] [address] 01/03/2025 11:30 AM CDT [facility] [place] [address] [place] [address] Rachelle Nava, ASBESTOS MICROSCOPIST, SMASHER [address] [place] [address] 03/04/2025 3:10 PM PRODUCTION INSPECTOR Lab [facility] Emergency Department - [place] [address] [place] [address] [facility] 03/04/2025 3:30 PM PRODUCTION INSPECTOR Office Visit [facility] Emergency Department - [place] [address] [place] [address] Tani Biggs, [facility] [address] [place] [address] 03/17/2025 1:30 PM PRODUCTION INSPECTOR Lab [facility] Oncology Services [address] [place] [address] Melony Asif, PAC [address] [place] [address] Discharge Disposition: Discharged to home or Selfcare 03/25/2025 1:20 PM PRODUCTION INSPECTOR [facility] [address] [place] [address] Melony sAif August, PAC [address] [place] [address] Discharge Disposition: Discharged to home or Selfcare 04/25/2025 2:00 PM PRODUCTION INSPECTOR Office Visit [facility] - Cardiology - [place] [address] [place] [address] Laisha Griffin, DO [address] [address] 07/18/2025 1:00 PM CDT Office Visit [facility] - Pulmonology & Sleep Medicine [facility] #[address] [place] [address] Dom Quiñonez MD [address] [place] [address] documented as of this encounter Visit Diagnoses Not on filedocumented in this encounter Additional Health Concerns Infection Onset Date Last Indicated Resolved Time COVID - 19 01/08/2021 01/08/2021 01/28/2021 12:1 6 AM PRODUCTION INSPECTOR COVID - 19 03/12/2021 03/12/2021 04/01/2021 12:1 6 AM PRODUCTION INSPECTOR COVID - 19 12/15/2021 12/15/2021 12/15/2021 7:26 PM CDT COVID - 19 Confirmed 12/15/2021 12/15/2021 022 12:16 AM CDT COVID - 19 04/18/2024 04/18/2024 04/18/2024 10:4 7 PM PRODUCTION INSPECTOR Respiratory Rule-Out 05/06/2024 05/06/2024 025 9:20 AM PRODUCTION INSPECTOR COVID - 19 05/06/2024 05/06/2024 05/06/2024 9:19 AM PRODUCTION INSPECTOR Assessment Noted Time PHQ-9 Depression Total Score: 0 09/01/19 11:58 AM CDT documented as of this encounter Care Teams Grounds Person Relationship Specialty Start Date End Date Jackeline Dimas, ASBESTOS MICROSCOPIST, SYSTEMS PROJECT MANAGER [address] [place] [address] PCP - General Advanced Practice Nurse 07/31/17 Emilia Tang MD [address] [place] [address] PCP - General Family Medicine 06/07/22 03/25/23 Rebeka Trinidad MD [address] [place] [address] PCP - General Family Medicine 03/26/23 03/29/24 Lorri Leo APRN, SYSTEMS PROJECT MANAGER [address] [place] [address] PCP - General Certified Nurse Practitioner 03/30/24 04/20/24 Rebeka Trinidad MD [address] [place] [address] PCP - General Family Medicine 04/21/24 04/21/24 Lorri Leo APRN, SYSTEMS PROJECT MANAGER [address] [place] [address] PCP - General Certified Nurse Practitioner 04/22/24 05/30/24 Tani Biggs, PAC [address] [place] [address] PCP - General Physician Consumer Loan Processor 05/31/24 Fiona Martinez, STAFF FORESTER [place] Principal Bioinformatics Specialist 03/01/21 08/23/21 Phil Jacobo MD #[address] [place] [address] Consulting Physician Neurology 03/07/21 Rajiv Mccormack, KELI [address] [place] [address] Nurse Practitioner Gastroenterology 03/07/21 Renita Quezada RN [place] Principal Bioinformatics Specialist 05/09/21 08/23/21 Alize Acosta, ASBESTOS MICROSCOPIST, SYSTEMS PROJECT MANAGER [facility] [place] [address] Virtual Advanced Care (VAC) INVENTORY MANAGER Advanced Practice Nurse 08/30/21 Dayo Chaney MD [address] [place] [address] Supervisor Photoengraving Cardiovascular Disease - Cardiology 09/20/21 02/12/24 Juanita Mercado, SEBA[place] Registered Nurse Cardiology 12/24/21 02/12/24 David Salmon MD #[address] [address] Consulting Physician Endocrinology 01/15/22 Maurilio Farley MD #[address] [address] Consulting Physician Colon and Rectal Surgery 09/20/22 PhysicianCandida MD [address] [place] [address] Family Medicine 01/25/22 03/18/23 Dom Quiñonez MD #[address] [place] [address] Consulting Physician Pulmonary Disease 11/19/21 Rachelle Nava APRN, SMASHER #[address] [place] [address] Nurse Practitioner Advanced Practice Nurse 07/19/22 Irais Naylor APRN, SYSTEMS PROJECT MANAGER #2 [facility] [address] [place] [address] Nurse Practitioner Cardiology 06/27/23 07/29/24 Sharri Gaspar MD 2 [facility] [address] [place] [address] Consulting Physician Cardiology 04/26/24 Amber Aldrich APRN, SYSTEMS PROJECT MANAGER #[address] [place] [address] Nurse Practitioner Cardiology 07/30/24 documented as of this encounter
--- OUTSIDE RECORDS SUMMARY | 2024-11-16 13:24 | XMS_ITS | Encounter Summary ---
Author Organization [facility] Address [address] [place] [address] Phone Care Team Providers Care Newswriter Name Role Phone Jackeline Dimas SUPERVISOR BEATER ROOM, ADVISORY INTERN Primary Care Provider Phil Jacobo MD Unavailable [phone] Rajiv Mccormack NP Unavailable Unavailable Alize Acosta SUPERVISOR BEATER ROOM, ADVISORY INTERN Unavailable +[phone] Dayo Chaney MD Unavailable Juanita Hauser RN Unavailable UnavailDavid Alexandre MD Unavailable Emilia Tang MD Primary Care Provider [phone] Maurilio Farley MD Unavailable Physician, Candida Davis MD Unavailable Rebeka Trinidad MD Primary Care Provider + [phone] Dom Quiñonez MD Unavailable Rachelle Nava SUPERVISOR BEATER ROOM, SWITCHBOARD TROUBLESHOOTER Unavailable + [phone] Irais Naylor SUPERVISOR BEATER ROOM, ADVISORY INTERN Unavailable + [phone] Lorri Leo SUPERVISOR BEATER ROOM, ADVISORY INTERN Primary Care Provider [phone] Rebeka Trinidad MD Primary Care Provider + [phone] Ahmet Lorri M SUPERVISOR BEATER ROOM, [facility] Primary Care Provider + [phone] Sharri Gaspar MD Unavailable Tani Biggs [facility] Primary Care Provider +[phone] Amber Aldrich SUPERVISOR BEATER ROOM, [facility] Unavailable Reason for Visit * Reason Comments Medication Refill Encounter Details Date Type Department Care Team (Late st Contact Info) Description 11/08/2021 Refill [facility] - Primary Care - [place] [address] [place] [address] Jackeline Dimas SUPERVISOR BEATER ROOM, [facility] [address] [place] [address] Medication Refill Social History Tobacco [...] 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 [...] CDT Telemedicine [facility] [address] [place] [address] 645- [phone] Alize Acosta, SUPERVISOR BEATER ROOM, ADVISORY INTERN [address] [place] [address] 11/18/2024 3:45 PM CDT Office Visit [facility] - Endocrinology - [place] [address] [place] [address] David Salmon MD #[address] [address] 11/24/2024 2:40 PM CDT Telemedicine [facility] [address] [place] [address] 01/03/2025 11:30 AM CDT Office Visit [facility] - Neurology - [place] [address] [place] [address] Rachelle Nava, SUPERVISOR BEATER ROOM, SWITCHBOARD TROUBLESHOOTER #[address] [place] [address] 03/04/2025 3:10 PM CHIEF MERCHANDISING OFFICER Lab [facility] - Primary Care - [place] [address] [place] [address] [facility] 03/04/2025 3:30 PM CHIEF MERCHANDISING OFFICER Office Visit [facility] - Primary Care - [place] [address] [place] [address] Tani Biggs PAC [address] [place] [address] 03/17/2025 1:30 PM CHIEF MERCHANDISING OFFICER [facility] [address] [place] [address] AsifMelony August, PAC [address] [place] [address] Discharge Disposition: Discharged to home or Selfcare 03/25/2025 1:20 PM CHIEF MERCHANDISING OFFICER Office Visit [facility] Oncology Services [address] [place] [address] [facility] August, [facility] [address] [place] [address] Discharge Disposition: Discharged to home or Selfcare 04/25/2025 2:00 PM CHIEF MERCHANDISING OFFICER Office Visit [facility] - Cardiology - [place] [address] [place] [address] Laisha Griffin DO [address] [address] 07/18/2025 1:00 PM CDT Office Visit [facility] - Pulmonology & Sleep Medicine [facility] #[address] [place] [address] Dom Quiñonez MD #[address] [place] [address] documented as of this encounter Goals Goal [...] 04/18/2024 04/18/2024 04/18/2024 10:4 7 PM CHIEF MERCHANDISING OFFICER Respiratory Rule-Out 05/06/2024 05/06/2024 025 9:20 AM CHIEF MERCHANDISING OFFICER COVID - 19 05/06/2024 05/06/2024 05/06/2024 9:19 AM CHIEF MERCHANDISING OFFICER Assessment Noted Time PHQ-9 Depression Total Score: 0 09/01/19 20 11:58 AM CDT documented as of this encounter Care Teams Newswriter Relationship Specialty Start Date End Date Jackeline Dimas APRN, ADVISORY INTERN [address] [place] [address] PCP - General Advanced Practice Nurse 07/31/17 Emilia Tang MD [address] [place] [address] PCP - General Family Medicine 06/07/22 03/25/23 Rebeka Trinidad MD [address] [place] [address] PCP - General Family Medicine 03/26/23 03/29/24 Lorri Leo APRN, ADVISORY INTERN [address] [place] [address] PCP - General Certified Nurse Practitioner 03/30/24 04/20/24 Rebeka Trinidad MD [address] [place] [address] PCP - General Family Medicine 04/21/24 04/21/24 Lorri Leo APRN, ADVISORY INTERN [address] [place] [address] PCP - General Certified Nurse Practitioner 04/22/24 05/30/24 Tani Biggs [facility] [address] [place] [address] PCP - General Physician Instant Powder Supervisor 05/31/24 Phil Jacobo MD #[address] [place] [address] Consulting Physician Neurology 03/07/21 Rajiv Mccormack, KELI [address] [place] [address] Nurse Practitioner Gastroenterology 03/07/21 Alize Acosta APRN, ADVISORY INTERN [address] [place] [place] [address] Virtual Advanced Care (VAC) TRACK WALKER Advanced Practice Nurse 08/30/21 Dayo Chaney MD [address] [place] [address] Kitchen Utility Associate Cardiovascular Disease - Cardiology 09/20/21 02/12/24 Juanita Mercado, SEBAST[place] Registered Nurse Cardiology 12/24/21 02/12/24 David Salmon MD #[address] [address] Consulting Physician Endocrinology 01/15/22 Maurilio Farley MD #[address] [address] Consulting Physician Colon and Rectal Surgery 09/20/22 PhysicianCandida MD [address] [place] [address] Family Medicine 01/25/22 03/18/23 Dom Quiñonez MD #2 [place] [address] Consulting Physician Pulmonary Disease 11/19/21 Rachelle Nava APRN, SWITCHBOARD TROUBLESHOOTER #[address] [place] [address] Nurse Practitioner Advanced Practice Nurse 07/19/22 Irais Naylor APRN, ADVISORY INTERN #[address] [address] Nurse Practitioner Cardiology 06/27/23 07/29/24 Sharri Gaspar MD [address] [address] Consulting Physician Cardiology 04/26/24 Amber Aldrich APRN, ADVISORY INTERN #[address] [place] [address] Nurse Practitioner Cardiology 07/30/24 documented as of this encounter
--- OUTSIDE RECORDS SUMMARY | 2024-11-16 13:24 | XMS_ITS | Encounter Summary ---
Author Organization [facility] Address [address] [place] [address] Phone Care Team Providers Care Wildlife Manager Name Role Phone Phil Jacobo MD Unavailable [phone] Rajiv Mccormack NP Unavailable Unavailable Alize Acosta WEAVING MACHINE OPERATOR, RECORDS AND INFORMATION MANAGER Unavailable +[phone] Dayo Chaney MD Unavailable Juanita Hauser RN Unavailable Unavaila David Martinez MD Unavailable Emilia Tang MD Primary Care Provider [phone] Maurilio Farley MD Unavailable PhysicianCandida MD Unavailable Rebeka Trinidad MD Primary Care Provider + [phone] Dom Quiñonez MD Unavailable Rachelle Nava WEAVING MACHINE OPERATOR, MOLD STACKER Unavailable + [phone] Irais Naylor WEAVING MACHINE OPERATOR, RECORDS AND INFORMATION MANAGER Unavailable + [phone] Lorri Leo WEAVING MACHINE OPERATOR, RECORDS AND INFORMATION MANAGER Primary Care Provider + [phone] Rebeka Trinidad MD Primary Care Provider + [phone] Lorri Leo WEAVING MACHINE OPERATOR, RECORDS AND INFORMATION MANAGER Primary Care Provider + [phone] Sharri Gaspar MD Unavailable Tani Biggs Primary Care Provider + [phone] Valdemar Amber Dinora WELLS, RECORDS AND INFORMATION MANAGER Unavailable Reason for Visit * Reason Comments Medication Refill Encounter Details Date Type Department Care Team (Late st Contact Info) Description 09/04/2022 Refill [facility] - Endocrinology - [place] [address] [place] [address] David Salmon MD #[address] [address] Medication Refill Social History Tobacco [...] 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 TRUEplus 5-Bevel Pen [place] 32G X 4 MM Misc [Pharmacy Med Name: TRUEPLUS 5- BEVEL PEN NEEDLE [id number]] 100 Each 1 Sig: USE DAILY DIRECTED. Next appt: 10/31/2022 documented in this encounter Plan of Treatment Upcoming Encounters Date Type Department Care Team (Late st Contact Info) Description 11/17/2024 2:00 PM CDT Telemedicine [facility] [address] [place] [address] Alize Acosta APRN, RECORDS AND INFORMATION MANAGER [address] [place] [address] 11/18/2024 3:45 PM CDT Office Visit [facility] - Endocrinology - [place] [address] [place] [address] David Salmon MD #[address] [address] 11/24/2024 2:40 PM CDT Telemedicine [facility] [address] [place] [address] 01/03/2025 11:30 AM CDT [facility] [place] [address] [place] [address] Rachelle Nava APRN, MOLD STACKER [address] [place] [address] 03/04/2025 3:10 PM ROD POINTER Lab [facility] - Primary Care - [address] [phone] [facility] 03/04/2025 3:30 PM ROD POINTER Office Visit [facility] - Primary Care - [place] [address] [place] [address] Tani Biggs, PAC [address] [facility] [place] [address] 03/17/2025 1:30 PM ROD POINTER Lab [facility] Oncology Services [address] [place] [address] Melony Asif Stacey, PAC 0 [place] [address] Discharge Disposition: Discharged to home or Selfcare 03/25/2025 1:20 PM ROD POINTER Office Visit [facility] Oncology Services [address] [place] [address] Melony Asif Stacey, PAC 0 [place] [address] Discharge Disposition: Discharged to home or Selfcare 04/25/2025 2:00 PM ROD POINTER Office Visit [facility] - Cardiology - [place] [address] [place] [address] Laisha Griffin, DO [address] [address] 07/18/2025 1:00 PM CDT Office Visit [facility] - Pulmonology & Sleep Medicine [facility] #2 [place] [address] Dom Quiñonez MD #2 [place] [address] documented as of this encounter [...] diet Depression Depression Improving(0 03/15/2022 2:27 PM ROD POINTER) No Breanne Saldana LCSW Note: Goal/Objective: Decrease [...] - 04/18/2024 04/18/2024 04/18/2024 10:4 7 PM ROD POINTER Respiratory Rule-Out 05/06/2024 05/06/2024 025 9:20 AM ROD POINTER COVID - 05/06/2024 05/06/2024 05/06/2024 9:19 AM ROD POINTER Assessment Noted Time PHQ-9 Depression Total Score: 24 022 3:31 PM ROD POINTER documented as of this encounter Care Teams Wildlife Manager Relationship Specialty Start Date End Date Emilia Tang MD [address] [place] [address] PCP - General Family Medicine 06/07/22 03/25/23 Rebeka Trinidad MD [address] [place] [address] PCP - General Family Medicine 03/26/23 03/29/24 Lorri Leo APRN, RECORDS AND INFORMATION MANAGER [address] [place] [address] PCP - General Certified Nurse Practitioner 03/30/24 04/20/24 Rebeka Trinidad MD [address] [place] [address] PCP - General Family Medicine 04/21/24 04/21/24 Lorri Leo APRN, RECORDS AND INFORMATION MANAGER [address] [place], [place] [address] PCP - General Certified Nurse Practitioner 04/22/24 05/30/24 Tani Biggs, PAC [address] [place] [address] PCP - General Physician Hims Coder 05/31/24 Phil Jacobo MD [address]2 [place] [address] Consulting Physician Neurology 03/07/21 Rajiv Mccormack, INFORMATION TECHNOLOGY MANAGER #[address] [place] [address] Nurse Practitioner Gastroenterology 03/07/21 Ailze Acosta, RUSSELL, RECORDS AND INFORMATION MANAGER [address] [place] [address] [facility] (VAC) SUPERINTENDENT SALES Advanced Practice Nurse 08/30/21 Dayo Chaney MD [address] [place] [address] Warehouse Puller Cardiovascular Disease - Cardiology 09/20/21 02/12/24 Juanita Mercado RN [place] Registered Nurse Cardiology 12/24/21 02/12/24 David Salmon MD #[address] [address] Consulting Physician Endocrinology 01/15/22 Maurilio Farley MD #[address] [address] Consulting Physician Colon and Rectal Surgery 09/20/22 PhysicianCandida MD [address] [place] [address] Family Medicine 01/25/22 03/18/23 Dom Quiñonez MD #2 [place] [address] Consulting Physician Pulmonary Disease 11/19/21 Rachelle Nava, WEAVING MACHINE OPERATOR, MOLD STACKER [address] [place] [address] Nurse Practitioner Advanced Practice Nurse 07/19/22 Irais Naylor, WEAVING MACHINE OPERATOR, RECORDS AND INFORMATION MANAGER #[address] [address] Nurse Practitioner Cardiology 06/27/23 07/29/24 Sharri Gaspar MD [address] [address] Consulting Physician Cardiology 04/26/24 Amber Aldrich APRN, RECORDS AND INFORMATION MANAGER #[address] [place] [address] Nurse Practitioner Cardiology 07/30/24 documented as of this encounter
--- OUTSIDE RECORDS SUMMARY | 2024-11-16 13:24 | XMS_ITS | Encounter Summary ---
Author Organization [facility] Address [address] [place] [address] Phone Care Team Providers Care Truck Driver Salesperson Name Role Phone Phil Jacobo MD Unavailable [phone] Rajiv Mccormack NP Unavailable Unavailable Alize Acosta APRN, MANAGER LOCATION Unavailable [phone] Dayo Chaney MD Unavailable Juanita Hauser RN Unavailable UnavailDavid Alexandre MD Unavailable Maurilio Farley MD Unavailable Rebeka Trinidad MD Primary Care Provider + [phone] Dom Quiñonez MD Unavailable Rachelle Nava AUDIOVISUAL EQUIPMENT OPERATOR, CLAM TREADER Unavailable + [phone] Irais Naylor AUDIOVISUAL EQUIPMENT OPERATOR, MANAGER LOCATION Unavailable + [phone] Lorri Leo AUDIOVISUAL EQUIPMENT OPERATOR, MANAGER LOCATION Primary Care Provider + [phone] Rebeka Trinidad MD Primary Care Provider + [phone] Lorri Leo AUDIOVISUAL EQUIPMENT OPERATOR, MANAGER LOCATION Primary Care Provider + [phone] Sharri Gaspar MD Unavailable Tani Biggs PAC Primary Care Provider + [phone] Amber Aldrich APRN, CNP Unavailable Encounter Details Date Type Department Care Team (Late st Contact Info) Description 09/12/2023 Transcribe Orders [facility] Central Scheduling [address] [place] [address] Rebeka Trinidad MD [address] [place] [address] Social History Tobacco Use Types Packs/Day Years Used Date Smoking Tobacco: Former Cigarettes 1 37.1 1 985 - 04/12/2021 Smokeless Tobacco: Never Alcohol Use Standard Drinks/Week Comments Not Currently 0 (1 standard drink = 0.6 oz pur e alcohol) last drank 2020 [facility] Utilities Answer Date Recorded In the past 12 months has [employer] electric, gas, oil, or water [employer] threatened to shut off services in your home? No 09/08/2023 Social Connection and Isolation Panel Answer Date Recorded In a typical week, how many times do you talk on the phone with family, friends, or neighbors? Once a week 09/08/19 How often do you get togethe r with friends or relatives? Never 09/08/2023 How often do you attend [facility] or taoist services? 1 to 4 times per year 09/08/2023 Do you belong to any clubs o r organizations such as mormonism groups, unions, fraternal or athletic groups, or [...] Total Score - Questions 1-9 18 / [facility] - Occupational Stress Questionnaire Answer Date Recorded [...] time in the past 12 m [facility], were you homeless or living in a halfway (including now)? 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 file Not on file documented as of this encounter Plan of Treatment Upcoming Encounters Date Type Department Care Team (Late st Contact Info) Description 11/17/2024 2:00 PM CDT Telemedicine [facility] [address] [place] [address] [phone] Alize Acosta, RUSSELL, MANAGER LOCATION [address] [place] [address] 728- 11/18/2024 3:45 PM CDT [facility] - End[facility]ology - [place] [address] [place] [address] David Salmon MD #[address] [address] 11/24/2024 2:40 PM CDT Telemedicine [facility] [address] [place] [address] 01/03/2025 11:30 AM CDT [facility] - Neurology - [place] [address] [place] [address] Rachelle Nava APRN, CLAM TREADER [address] [place] [address] 03/04/2025 3:10 PM TOY ELECTRIC TRAIN REPAIRER Lab [facility] Primary Care - [place] [address] [place] [address] [place] [facility] 03/04/2025 3:30 PM TOY ELECTRIC TRAIN REPAIRER Office Visit [facility] - [place] [address] [place] [address] Tani Biggs PAC [address] [place] [address] 03/17/2025 1:30 PM TOY ELECTRIC TRAIN REPAIRER Lab [facility] Oncology Services [address] [place] [address] Melony Asif, PAC [address] [place] [address] Discharge Disposition: Discharged to home or Selfcare 03/25/2025 1:20 PM TOY ELECTRIC TRAIN REPAIRER Office Visit [facility] Oncology Services [address] [place] [address] Melony Asif, [facility] [address] [place] [address] Discharge Disposition: Discharged to home or Selfcare 04/25/2025 2:00 PM TOY ELECTRIC TRAIN REPAIRER Office Visit [facility] - Cardiology - [place] [address] [place] [address] Laisha Griffin DO [address] [address] 07/18/2025 1:00 PM CDT Office Visit [facility] - Pulmonology & Sleep Medicine - [place] [address] [place] [address] Dom Quiñonez MD #[address] [place] [address] documented as of this encounter Goals Goal Patient Goal Type Associated Problems Recent Progress Patient-Stated? Author ACTIVITY Activity No change(08/08 2:42 PM CDT) Yes Maritza Vanegas, RN Note: Bonny will walk five days a week. Goal Reviewed with: Bonny Readiness to change: Department associated with goal: [facility] Steps to achieve goal: Walking 5 days a week I want to be able to be around people and feel less depressed. Behavioral Health Worsening(0 09/22/2023 3:12 PM CDT) Yes Hilda Tinajero, [facility] Note: Goal/Objective: Decrease symptoms of depression and anxiety. Anticipated Time Frame for Goal Completion: 3 months Goal Reviewed with: patient Readiness to change: Thinking about making a change Department associated with goal: [facility] Steps to [...] diet Depression Depression Improving(0 03/15/2022 2:27 PM TOY ELECTRIC TRAIN REPAIRER) No Breanne Saldana, RELATIONS COORDINATOR Note: Goal/Objective: Decrease symptoms of depression associated [...] Lifestyle Improving(0 08/16/2024 1:04 PM CDT) No Mlei Rosenthal, RN Note: Goal: monitor vitals 3 [...] 19 04/18/2024 04/18/2024 04/18/2024 10:4 7 PM TOY ELECTRIC TRAIN REPAIRER Respiratory Rule-Out 05/06/2024 05/06/2024 025 9:20 AM TOY ELECTRIC TRAIN REPAIRER COVID - 19 05/06/2024 05/06/2024 05/06/2024 9:19 AM TOY ELECTRIC TRAIN REPAIRER Assessment Noted Time PHQ-9 Depression Total Score: 18 023 9:24 AM CDT documented as of this encounter Care Teams Truck Driver Salesperson Relationship Specialty Start Date End Date Rebeka Trinidad MD [address] [place] [address] PCP - General Family Medicine 03/26/23 03/29/24 Lorri Leo APRN, MANAGER LOCATION [address] [place] [address] PCP - General Certified Nurse Practitioner 03/30/24 04/20/24 Rebeka Trinidad MD [address] [place] [address] PCP - General Family Medicine 04/21/24 04/21/24 Lorri Leo, AUDIOVISUAL EQUIPMENT OPERATOR, MANAGER LOCATION [address] [place], [place] [phone] PCP - General Certified Nurse Practitioner 04/22/24 05/30/24 Tani Biggs, PAC [address] [place] [address] PCP - General Physician Manager Of Learning 05/31/24 Phil Jacobo MD #[address] [place] [address] Consulting Physician Neurology 03/07/21 Rajiv Mccormcak, MULTIPLE SLIDE OPERATOR #[address] [place] [address] Nurse Practitioner Gastroenterology 03/07/21 Alize Acosta, RUSSELL, MANAGER LOCATION [facility] [place] [address] Virtual [facility] (VAC) MAT WEAVER Advanced Practice Nurse 08/30/21 Dayo Chaney MD [address] [place] [address] Development And Housing Director Cardiovascular Disease - Cardiology 09/20/21 02/12/24 Juanita Mercado RN [place] Registered Nurse Cardiology 12/24/21 02/12/24 David Salmon MD #[address] [address] Consulting Physician Endocrinology 01/15/22 Maurilio Farley MD [address] [address] Consulting Physician Colon and Rectal Surgery 09/20/22 Dom Quiñonez MD #[address] [place] [address] Consulting Physician Pulmonary Disease 11/19/21 Rachelle Nava, AUDIOVISUAL EQUIPMENT OPERATOR, CLAM TREADER #[address] [place] [address] Nurse Practitioner Advanced Practice Nurse 07/19/22 Irais Naylor, AUDIOVISUAL EQUIPMENT OPERATOR, MANAGER LOCATION #2 [facility] [place] [address] [address] Nurse Practitioner Cardiology 06/27/23 07/29/24 Sharri Gaspar MD 2 [facility] [place] [address] [address] Consulting Physician Cardiology 04/26/24 Amber Aldrich APRN, MANAGER LOCATION #[address] [place] [address] Nurse Practitioner Cardiology 07/30/24 documented as of this encounter
--- OUTSIDE RECORDS SUMMARY | 2024-11-16 13:24 | XMS_ITS | Encounter Summary ---
Author Organization [facility] Address [address] [place] [address] Phone Care Team Providers Care Domestic Maid Name Role Phone Jackeline Dimas HEAD CLEANING PORTER, LOW EMISSION AUTOMOBILE DESIGNER Primary Care Provider Fiona Martinez DIESEL TECHNOLOGY INSTRUCTOR Unavailable Unavailab Phil Ellis MD Unavailable [phone] Rajiv Mccormack NP Unavailable Unavailable Renita Quezada RN Unavailable Unavailable Alize Acosta HEAD CLEANING PORTER, LOW EMISSION AUTOMOBILE DESIGNER Unavailable [phone] Dayo Chaney MD Unavailable Juanita Hauser RN Unavailable Unavaila David Martinez MD Unavailable Emilia Tang MD Primary Care Provider [phone] Maurilio Farley MD Unavailable Candida Turner MD Unavailable Rebeka Trinidad MD Primary Care Provider + [phone] Dom Quiñonez MD Unavailable Rachelle Nava HEAD CLEANING PORTER, ESCORT PATIENTS Unavailable + [phone] Irais Naylor HEAD CLEANING PORTER, LOW EMISSION AUTOMOBILE DESIGNER Unavailable + [phone] Lorri Leo HEAD CLEANING PORTER, LOW EMISSION AUTOMOBILE DESIGNER Primary Care Provider + [phone] Rebeka Trinidad MD Primary Care Provider [phone] Lorri Leo HEAD CLEANING PORTER, LOW EMISSION AUTOMOBILE DESIGNER Primary Care Provider [phone] Sharri Gaspar MD Unavailable Tani Biggs Primary Care Provider + [phone] Amber Aldrich HEAD CLEANING PORTER, LOW EMISSION AUTOMOBILE DESIGNER Unavailable Reason for Visit * Reason Comments Medication Refill Encounter Details Date Type Department Care Team ([facility] Contact Info) Description 05/09/2021 Refill [facility] - Family [facility] #[address] [place] [address] Jackeline Dimas, HEAD CLEANING PORTER, LOW EMISSION AUTOMOBILE DESIGNER [address] [place] [address] Medication Refill Social History Tobacco Use Types [...] 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 No / Unsure 05/07/2021 2:03 PM DRIVER LICENSE REVIEWING OFFICER documented as of this encounter Plan of Treatment Upcoming Encounters Date Type Department Care Team (Late Contact Info) Description 11/17/2024 2:00 PM CDT Telemedicine [facility] [address] [place] [address] Alize Acosta, HEAD CLEANING PORTER, LOW EMISSION AUTOMOBILE DESIGNER [address] [place] [address] 11/18/2024 3:45 PM CDT Office Visit [facility] Endocrinology - [place] [address] [place] [address] David Salmon MD #[address] [address] 11/24/2024 2:40 PM CDT Telemedicine [facility] [address] [place] [address] 01/03/2025 11:30 AM CDT Office Visit [facility] Neurology - [place] [address] [place] [address] Rachelle Nava, HEAD CLEANING PORTER, ESCORT PATIENTS #[address] [place] [address] 03/04/2025 3:10 PM DRIVER LICENSE REVIEWING OFFICER Lab [facility] Primary [facility] - [place] [address] [place] [address] [facility] 03/04/2025 3:30 PM DRIVER LICENSE REVIEWING OFFICER Office Visit [facility] Primary [facility] - [place] [address] [place] [address] Tani Biggs PAC [address] [place] [address] 03/17/2025 1:30 PM DRIVER LICENSE REVIEWING OFFICER Lab [facility] Oncology Services [address] [place] [address] Melony Asif PAC [address] [place] [address] Discharge Disposition: Discharged to home or Selfcare 03/25/2025 1:20 PM DRIVER LICENSE REVIEWING OFFICER Office Visit [facility] Oncology Services [address] [place] [address] Melony Asif August, PAC [address] [place] [address] Discharge Disposition: Discharged to home or Selfcare 04/25/2025 2:00 PM DRIVER LICENSE REVIEWING OFFICER Office Visit [facility] - Cardiology - [place] [address] [place] [address] Laisha Griffin, DO [address] [address] 07/18/2025 1:00 PM CDT Office Visit [facility] - Pulmonology & Sleep Medicine [facility] #2 [place] [address] Dom Quiñonez MD #[address] [place] [address] documented as of this encounter Goals Goal [...] 19 04/18/2024 04/18/2024 04/18/2024 10:4 7 PM DRIVER LICENSE REVIEWING OFFICER Respiratory Rule-Out 05/06/2024 05/06/2024 025 9:20 AM DRIVER LICENSE REVIEWING OFFICER COVID - 19 05/06/2024 05/06/2024 05/06/2024 9:19 AM DRIVER LICENSE REVIEWING OFFICER Assessment Noted Time PHQ-9 Depression Total Score: 0 09/01/19 20 11:58 AM CDT documented as of this encounter Care Teams Domestic Maid Relationship Specialty Start Date End Date Jackeline Dimas APRN, LOW EMISSION AUTOMOBILE DESIGNER [address] [place] [address] PCP - General Advanced Practice Nurse 07/31/17 Emilia Tang MD [address] [place] [address] PCP - General Family Medicine 06/07/22 03/25/23 Rebeka Trinidad MD [address] [place] [address] PCP - General Family Medicine 03/26/23 03/29/24 Lorri Leo APRN, LOW EMISSION AUTOMOBILE DESIGNER [address] [place] [address] PCP - General Certified Nurse Practitioner 03/30/24 04/20/24 Rebeka Trinidad MD [address] [place], [place] [phone] PCP - General Family Medicine 04/21/24 04/21/24 Lorri Leo, HEAD CLEANING PORTER, LOW EMISSION AUTOMOBILE DESIGNER [address] [place], [place] [phone] PCP - General Certified Nurse Practitioner 04/22/24 05/30/24 Tani Biggs, PAC [address] [place] [address] PCP - General Physician Occupational Therapist'S Assistant 05/31/24 Fiona Martinez, MARSHA [place] Information Services Assistant 03/01/21 08/23/21 Phil Jacobo MD #[address] [place] [address] Consulting Physician Neurology 03/07/21 Rajiv Mccormack, PICKER OPERATOR [address] [place] [address] Nurse Practitioner Gastroenterology 03/07/21 Renita Quezada RN [place] Information Services Assistant 05/09/21 08/23/21 Alize Acosta, HEAD CLEANING PORTER, LOW EMISSION AUTOMOBILE DESIGNER [facility] [place] [address] Virtual [facility] Care (VAC) DISASTER DIRECTOR Advanced Practice Nurse 08/30/21 Dayo Chaney MD [address] [place] [address] English Language Arts Teacher Cardiovascular Disease - Cardiology 09/20/21 02/12/24 Juanita Mercado, [place] Registered Nurse Cardiology 12/24/21 02/12/24 David Salmon MD #[address] [address] Consulting Physician Endocrinology 01/15/22 Maurilio Farley MD #[address] [address] Consulting Physician Colon and Rectal Surgery 09/20/22 PhysicianCandida MD [address] [place] [address] Family Medicine 01/25/22 03/18/23 Dom Quiñonez MD #2 [place] [address] Consulting Physician Pulmonary Disease 11/19/21 Rachelle Nava APRN, ESCORT PATIENTS #2 [place] [address] Nurse Practitioner Advanced Practice Nurse 07/19/22 Irais Naylor APRN, LOW EMISSION AUTOMOBILE DESIGNER #[address] [address] Nurse Practitioner Cardiology 06/27/23 07/29/24 Sharri Gaspar MD 2 [facility] [place] [address] [address] Consulting Physician Cardiology 04/26/24 Amber Aldrich APRN, LOW EMISSION AUTOMOBILE DESIGNER #[address] [place] [address] Nurse Practitioner Cardiology 07/30/24 documented as of this encounter
--- OUTSIDE RECORDS SUMMARY | 2024-11-16 13:24 | XMS_ITS ---
Author Organization [facility] Address [address] [place] [address] Phone Care Team Providers Care Cloth Tester Quality Name Role Phone Phil Jacobo MD Unavailable [phone] Rajiv Mccormack NP Unavailable Unavailable Alize Acosta APRN, REMNANTS CUTTER Unavailable [phone] David Salmon MD Unavailable Maurilio Farley MD Unavailable Dom Quiñnoez MD Unavailable Rachelle Nava APRN, FOOD SCIENCE TECHNICIAN Unavailable + [phone] Sharri Gaspar MD Unavailable Tani Biggs Primary Care Provider [phone] Amber Aldrich APRN, REMNANTS CUTTER Unavailable [facility] Status:Enrolled (Active) Start date:01/25/2022 Enrollment date:02/19/2023 Continued Care and Services Coordination
--- OUTSIDE RECORDS SUMMARY | 2024-11-16 13:25 | XMS_ITS | Encounter Summary ---
Author Organization [facility] Address [address] [place] [address] Phone Care Team Providers Care Bus Info Consultant Name Role Phone Phil Jacobo MD Unavailable [phone] Rajiv Mccormack NP Unavailable Unavailable Alize Acosta APRN, LAST TRIMMER Unavailable [phone] Dayo Chaney MD Unavailable Juanita Hauser RN Unavailable UnavailDavid Alexandre MD Unavailable Maurilio Farley MD Unavailable Rebeka Trinidad MD Primary Care Provider + [phone] Dom Quiñonez MD Unavailable Rachelle Nava SHOPPING INVESTIGATOR, PIANO REGULATOR Unavailable + [phone] Irais Naylor SHOPPING INVESTIGATOR, LAST TRIMMER Unavailable + [phone] Lorri Leo SHOPPING INVESTIGATOR, LAST TRIMMER Primary Care Provider + [phone] Rebeka Trinidad MD Primary Care Provider + [phone] Lorri Leo SHOPPING INVESTIGATOR, LAST TRIMMER Primary Care Provider + [phone] Sharri Gaspar MD Unavailable Tani Biggs PAC Primary Care Provider [phone] Amber Aldrich APRN, LAST TRIMMER Unavailable Reason for Visit * Reason Comments Medication Refill Encounter Details Date Type Department Care Team (Late st Contact Info) Description 04/18/2023 Refill [facility] - Neurology [facility] [address] [place] [address] Rachelle Nava, RUSSELL, PIANO REGULATOR [address] [place] [address] Medication Refill Social History Tobacco Use Types Packs/Day Years Used Date Smoking Tobacco: Former Cigarettes 1 37.1 1 985 - 04/12/2021 Smokeless Tobacco: Never Alcohol Use Standard Drinks/Week Comments Not Currently 0 (1 standard drink = 0.6 oz pur e alcohol) last drank 2020 [facility] Utilities Answer Date Recorded In the past 12 months has [employer], gas, oil, or water company threatened [...] How often do you attend [facility] or pentecostalism services? 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 03/19/23 Office Visit Rachelle Nava APRN, CNS [facility] Neurology [facility] 02/06/23 Office Visit Emilia Tang MD [facility] 11/06/22 Office Visit Emilia Tang MD [facility] 10/10/22 Office Visit Emilia Tang MD [facility] 09/16/22 Office Visit Rachelle Nava APRN, CNS [facility] Neurology [facility] 09/06/22 Office Visit Emilia Tang MD [facility] 07/19/22 Office Visit Rachelle Nava APRN, CNS [facility] Neu[facility] 06/07/22 Office Visit Emilia Tang MD [facility] Showing recent visits within past 365 days and meeting all other requirements Future Appointments Date Type Provider Dept 06/19/23 Appointment Phil Jacobo MD [facility] Neurology [facility] Showing future appointments within next 90 days and meeting all other requirements NNA INSTALLER documented in this encounter Plan of Treatment Upcoming Encounters Date Type Department Care Team (Late st Contact Info) Description 11/17/2024 2:00 PM CDT Telemedicine [facility] [address] [place] [address] Alize Acosta, SHOPPING INVESTIGATOR, LAST TRIMMER [address] [place] [address] 11/18/2024 3:45 PM CDT Office Visit [facility] - Endocrinology - [place] [address] [place] [address] David Salmon MD [address] [address] 11/24/2024 2:40 PM CDT Telemedicine [facility] [address] [place] [address] 01/03/2025 11:30 AM CDT Office Visit [facility] - Neurology - [place] [address] [place] [address] Rachelle Nava, SHOPPING INVESTIGATOR, PIANO REGULATOR [address] [place] [address] 03/04/2025 3:10 PM ANTENNA INSTALLER Lab [facility] [address] [facility], [facility] 03/04/2025 3:30 PM ANTENNA INSTALLER Office Visit [facility] [phone] Tani Biggs, [facility] [address] [place] [address] 03/17/2025 1:30 PM ANTENNA INSTALLER Lab [facility] On[facility] Services [address] [place] [address], [facility] [address] [place] [address] Discharge Disposition: Discharged to home or Selfcare 03/25/2025 1:20 PM ANTENNA INSTALLER Office Visit [facility] [address] [place] [address] [facility], [facility] [address] [place] [address] Discharge Disposition: Discharged to home or Selfcare 04/25/2025 2:00 PM ANTENNA INSTALLER Office Visit [facility] - Cardiology - [place] [address] [place] [address] Laisha Griffin DO [address] [address] 07/18/2025 1:00 PM CDT Office Visit [facility] - Pulmonology & Sleep Medicine - [place] [address] [place] [address] Dom Quiñonez MD [address] [place] [address] documented as of this encounter Goals Goal Patient Goal Type Associated Problems Recent Progress Patient-Stated? Author ACTIVITY Activity No change(08/08 2:42 PM CDT) Yes Maritza Vanegas, RN Note: Bonny will walk five days a week. Goal Reviewed with: Bonny Readiness to change: Department associated with goal: [facility] Steps to achieve goal: Walking 5 days a week I want to be able to be around people and feel less depressed. Behavioral Health Worsening(0 09/22/2023 3:12 PM CDT) Hilda Mesa [facility] Note: Goal/Objective: Decrease symptoms of depression and anxiety. Anticipated Time Frame for Goal Completion: 3 months Goal Reviewed with: patient Readiness to change: Thinking about making a change Department associated with goal: [facility] Steps to achieve [...] diet Depression Depression Improving(0 03/15/2022 2:27 PM ANTENNA INSTALLER) No Breanne Saldana, SHIPPING ROOM SUPERVISOR Note: Goal/Objective: Decrease symptoms of depression [...] 19 04/18/2024 04/18/2024 04/18/2024 10:4 7 PM ANTENNA INSTALLER Respiratory Rule-Out 05/06/2024 05/06/2024 025 9:20 AM ANTENNA INSTALLER COVID - 05/06/2024 05/06/2024 05/06/2024 9:19 AM ANTENNA INSTALLER Assessment Noted Time PHQ-9 Depression Total Score: 18 023 9:24 AM CDT documented as of this encounter Care Teams Bus Info Consultant Relationship Specialty Start Date End Date Rebeka Trinidad MD [address] [place] [address] PCP - General Family Medicine 03/26/23 03/29/24 Lorri Leo APRN, LAST TRIMMER [address] [place] [address] PCP - General Certified Nurse Practitioner 03/30/24 04/20/24 Rebeka Trinidad MD [address] [place] [address] PCP - General Family Medicine 04/21/24 04/21/24 Lorri Leo APRN, LAST TRIMMER [address] [place] [address] PCP - General Certified Nurse Practitioner 04/22/24 05/30/24 Tani Biggs, PAC [address] [place] [address] PCP - General Physician Concrete Laborer 05/31/24 Phil Jacobo MD [address] [place] [address] Consulting Physician Neurology 03/07/21 Rajiv Mccormack, SALES AND MARKETING ASSOCIATE [address] [place] [address] Nurse Practitioner Gastroenterology 03/07/21 Alize Acosta, SHOPPING INVESTIGATOR, LAST TRIMMER [address] [place] [address] [facility] MOLECULAR BIOLOGY DIRECTOR Advanced Practice Nurse 08/30/21 Dayo Chaney MD [address] [place] [address] Supervisor Poultry Hatchery Cardiovascular Disease - Cardiology 09/20/21 02/12/24 Juanita Mercado, RN [place] Registered Nurse Cardiology 12/24/21 02/12/24 David Salmon MD #[address] [phone] Consulting Physician Endocrinology 01/15/22 Maurilio Farley MD #[address] [id number] Consulting Physician Colon and Rectal Surgery 09/20/22 Dom Quiñonez MD [address] [place] [address] Consulting Physician Pulmonary Disease 11/19/21 Rachelle Nava, SHOPPING INVESTIGATOR, PIANO REGULATOR [address] [place] [address] Nurse Practitioner Advanced Practice Nurse 07/19/22 Irais Naylor, SHOPPING INVESTIGATOR, LAST TRIMMER #2 [facility], [facility] [address] [place] [address] Nurse Practitioner Cardiology 06/27/23 07/29/24 Sharri Gaspar MD 2 [facility] [place] [facility] [address] [place] [address] Consulting Physician Cardiology 04/26/24 Amber Aldrich APRN, LAST TRIMMER [address] [place] [address] Nurse Practitioner Cardiology 07/30/24 documented as of this encounter
--- OUTSIDE RECORDS SUMMARY | 2024-11-16 13:25 | XMS_ITS | Encounter Summary ---
Author Organization [facility] Address [address] [place] [address] Phone Care Team Providers Care Acid Leveler Name Role Phone Phil Jacobo MD Unavailable [phone] Rajiv Mccormack NP Unavailable Unavailable Alize Acosta APRN, PANCAKE PROFESSIONAL Unavailable [phone] Dayo Chaney MD Unavailable Juanita Hauser RN Unavailable UnavailDavid Alexandre MD Unavailable Maurilio Farley MD Unavailable Rebeka Trinidad MD Primary Care Provider + [phone] Dom Quiñonez MD Unavailable Rachelle Nava PIPE CHIPPER, ANTI TANK MISSILEMAN Unavailable + [phone] Irais Naylor PIPE CHIPPER, PANCAKE PROFESSIONAL Unavailable + [phone] Lorri Leo PIPE CHIPPER, PANCAKE PROFESSIONAL Primary Care Provider + [phone] Rebeka Trinidad MD Primary Care Provider + [phone] Lorri Leo PIPE CHIPPER, PANCAKE PROFESSIONAL Primary Care Provider + [phone] Sharri Gaspar MD Unavailable Tani Biggs PAC Primary Care Provider + [phone] Amber Aldrich APRN, CNP Unavailable Encounter Details Date Type Department Care Team (Late st Contact Info) Description 07/23/2023 Telephone [facility] [address] [place] [address] Rebeka Trinidad MD [address] [place] [address] Social History Tobacco Use Types Packs/Day Years Used Date Smoking Tobacco: Former Cigarettes 1 37.1 1 985 - 04/12/2021 Smokeless Tobacco: Never Alcohol Use Standard Drinks/Week Comments Not Currently 0 (1 standard drink = 0.6 oz pur e alcohol) last drank 2020 [facility] Utilities Answer Date Recorded In the past 12 months has [employer], gas, oil, or water [employer] threatened to shut off services in your home? No 03/24/2023 Social Connection and Isolation Panel Answer Date Recorded In a typical week, how many times do you talk on the phone with family, friends, or neighbors? Once a week 03/24/2023 How often do you get togethe r with friends or relatives? Never 03/24/2023 How often do you attend [facility] or druze services? More than 4 times per year 03/24/2023 Do you belong to any clubs o r organizations such as islam groups, unions, fraternal or athletic groups, or [...] Total Score - Questions 1-9 18 08/3 [facility] - Occupational Stress Questionnaire Answer Date [...] in a long-term (including now)? 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 Not on file documented as of this encounter Plan of Treatment Upcoming Encounters Date Type Department Care Team (Late st Contact Info) Description 11/17/2024 2:00 PM CDT Telemedicine [facility] [address] [place] [address] Alize Acosta, PIPE CHIPPER, PANCAKE PROFESSIONAL [address] [place] [address] 11/18/2024 3:45 PM CDT Office Visit [facility] - Endocrinology - [place] [address] [place] [address] David Salmon MD [address] [address] 11/24/2024 2:40 PM CDT Telemedicine [facility] [address] [place] [address] 01/03/2025 11:30 AM CDT Office Visit [facility] - Neurology - [place] [address] [place] [address] Rachelle Nava, PIPE CHIPPER, ANTI TANK MISSILEMAN [address] [place] [address] 03/04/2025 3:10 PM RN LONG TERM CARE Lab [facility] [place] [address] [facility], [facility] 03/04/2025 3:30 PM RN LONG TERM CARE Office Visit [facility] [place] [address] Tani Biggs, [facility] [address] [place] [address] 03/17/2025 1:30 PM RN LONG TERM CARE Lab [facility] Oncology Services [address] [place] [address] AsifMelony kumari Stacey, [facility] [address] [place] [address] Discharge Disposition: Discharged to home or Selfcare 03/25/2025 1:20 PM RN LONG TERM CARE Office Visit [facility] Oncology Services [address] [place] [address] Melony Asif Stacey, [facility] [address] [place] [address] Discharge Disposition: Discharged to home or Selfcare 04/25/2025 2:00 PM RN LONG TERM CARE Office Visit [facility] - Cardiology - [place] [address] [place] [address] Laisha Griffin, DO [address] [address] 07/18/2025 1:00 PM CDT Office Visit [facility] - Pulmonology & Sleep Medicine [facility] [address] [place] [address] Dom Quiñonez MD [address] [place] [address] documented as of this encounter [...] Worsening(0 09/22/2023 3:12 PM CDT) Hilda Mesa SOAP CHIPPER Note: Goal/Objective: Decrease symptoms of depression and anxiety. Anticipated Time Frame for Goal Completion: 3 months Goal Reviewed with: patient Readiness to change: Thinking about making a change Department associated with goal: [facility] Steps to achieve [...] Depression Depression Improving(0 03/15/2022 2:27 PM RN LONG TERM CARE) No Breanne Saldana LCSW Note: Goal/Objective: Decrease [...] 04/18/2024 04/18/2024 04/18/2024 10:4 7 PM RN LONG TERM CARE Respiratory Rule-Out 05/06/2024 05/06/2024 025 9:20 AM RN LONG TERM CARE COVID - 05/06/2024 05/06/2024 05/06/2024 9:19 AM RN LONG TERM CARE Assessment Noted Time PHQ-9 Depression Total Score: 18 023 9:24 AM CDT documented as of this encounter Care Teams Acid Leveler Relationship Specialty Start Date End Date Rebeka Trinidad MD [address] [place] [address] PCP - General Family Medicine 03/26/23 03/29/24 Lorri Leo APRN, PANCAKE PROFESSIONAL [address] [place] [address] PCP - General Certified Nurse Practitioner 03/30/24 04/20/24 Rebeka Trinidad MD [address] [place] [address] [address] PCP - General Family Medicine 04/21/24 04/21/24 Lorri Leo APRN, PANCAKE PROFESSIONAL [address] [place] [address] PCP - General Certified Nurse Practitioner 04/22/24 05/30/24 Tani Biggs, PAC [address] [place] [address] PCP - General Physician Heeler Machine 05/31/24 Phil Jacoob MD [address] [place] [address] Consulting Physician Neurology 03/07/21 Rajiv Mccormack, KELI [address] [place] [address] Nurse Practitioner Gastroenterology 03/07/21 Alize Acosta, PIPE CHIPPER, PANCAKE PROFESSIONAL [address] [place], [place] [address] [facility]) AUXILIARY EQUIPMENT TENDER Advanced Practice Nurse 08/30/21 Dayo Chaney MD [address] [place] [address] Seismograph Operator Cardiovascular Disease - Cardiology 09/20/21 02/12/24 Juanita Mercado, [place] Registered Nurse Cardiology 12/24/21 02/12/24 David Salmon MD #[address] [address] Consulting Physician Endocrinology 01/15/22 Maurilio Farley MD #[address] [address] Consulting Physician Colon and Rectal Surgery 09/20/22 Dom Quiñonez MD [address] [place] [address] Consulting Physician Pulmonary Disease 11/19/21 Rachelle Nava APRN, ANTI TANK MISSILEMAN [address] [place] [address] Nurse Practitioner Advanced Practice Nurse 07/19/22 Irais aNylor APRN, PANCAKE PROFESSIONAL [address]2 [facility] [address] [place] [address] Nurse Practitioner Cardiology 06/27/23 07/29/24 Sharri Gaspar MD 2 [facility] [place] [address] [address] Consulting Physician Cardiology 04/26/24 Amber Aldrich APRN, PANCAKE PROFESSIONAL [address] [place] [address] Nurse Practitioner Cardiology 07/30/24 documented as of this encounter
--- OUTSIDE RECORDS SUMMARY | 2024-11-16 13:25 | XMS_ITS | Clinical Summary ---
Author Organization [facility] Address [address] [place] [address] Phone Care Team Providers Care Tableau Report Developer Name Role Phone Phil Jacobo MD Unavailable Rajiv Mccormack BACKHAUL DRIVER Unavailable Unavailable Alize Acosta APRN, PHARMACY MANAGER Unavailable [phone] David Salmon MD Unavailable Maurilio Farley MD Unavailable Dom Quiñonez MD Unavailable Rachelle Nava POWER PLANT ELECTRICIAN, THERMAL CUTTING MACHINE OPERATOR Unavailable + [phone] Sharri Gaspar MD Unavailable Tani Biggs PAC Primary Care Provider Amber Aldrich POWER PLANT ELECTRICIAN, PHARMACY MANAGER Unavailable Allergies Active Allergy Reactions Criticality Noted [...] by mouth daily. Active TRUEplus 5-Bevel Pen [place] 32G X 4 MM Misc USE DAILY [...] long-term current use of insulin ([facility]) 1 Lancet by Does not apply route in the morning and at bedtime. Test blood glucose 2x daily, E11.65, insulin dependent 200 Each 3 01/19/20 24 Active Glucose Blood (Accu-Chek Guide) StripIndications: Type 2 diabetes mellitus with hyperglycemia, without long-term current use of insulin ([facility]) Test blood glucose 2x daily. E11.65, insulin dependent 200 Strip 3 01/19/20 Active cetirizine-pseudo ephedrine (ZYRTEC-D) 5-120 MG TABLET SR 12 HR Take 1 Tablet by mouth 2 times daily. Active naloxone HCl (Narcan) 4 MG/0.1ML Liquid 1 [place] by Nasal route as needed for Opioid [...] Active Problems Problem Noted Date Diagnosed Date OLGA positive 11/12/2024 MDD (major depressive disord er), recurrent episode, moderate 05/11/2024 JASKARAN (generalized anxiety disorder) 05/11/2024 Cardiomyopathy 04/23/2024 Hyperlipidemia 04/23/2024 Heart failure with mid-range ejection fraction ( HFmEF) 04/23/2024 PAD (peripheral artery disease) 04/23/2024 Beta thalassemia trait 01/12/2024 Cancer of kidney 10/06/2023 Overview (04/05/2024): 03/27/23: NC. Renal lesion. CT + MRI () - right kidney mass ([facility] [place]). Creatinine 1.1. Hx of post-menopausal bleeding s/p [...] + MRI () - right kidney mass ([facility]). Creatinine 1.1. Hx of post-menopausal bleeding s/p [...] Encounters Date Type Department Care Team Description 11/16/2024 Documentation Only [facility] [address] [place] [address] Alize Acosta, POWER PLANT ELECTRICIAN, PHARMACY MANAGER 11/15/2024 Travel 11/13/2024 Telephone [facility] [address] [place] [address] Panda, Jaylyn A, RN HTN alert - 145/91, survey alert - coughing worse than norm ([facility] ) 11/12/2024 1:00 PM CDT Office Visit [facility] - Primary Care - [place] [address] [place] [address] Tani Biggs, PAC ERRONEOUS ENCOUNTER--DISREGARD (Primary Dx); Anaphylaxis, subsequent encounter Discharge Disposition: Discharged to home or Selfcare 11/12/2024 10:40 AM CDT Urgent Care Visit [facility] - [place] [address] [facility] [place] [address] Charmaine Cordova APRN, LIDA Primary osteoarthritis of right hand (Primary Dx); Heart failure with mid-range ejection fraction (HFmEF) (HCC); Type 2 diabetes mellitus without complication, without long-term current use of insulin Discharge Disposition: Discharged to home or Selfcare 11/12/2024 9:39 AM CDT - 11/12/2024 11:59 PM CDT [facility] [address] [place] [phone] Amber Aldrich APRN, LIDA Discharge Disposition: Discharged to home or Selfcare 11/12/2024 9:05 AM CDT - 11/12/2024 9:38 AM CDT [facility] [address] [place] [phone] Amber Aldrich APRN, LIDA Discharge Disposition: Discharged to home or Selfcare 11/12/2024 8:56 AM CDT - 11/12/2024 9:04 AM CDT [facility] [address] [place] [address] Amber Aldrich APRN, LIDA Discharge Disposition: Discharged to home or Selfcare 11/12/2024 8:40 AM CDT - 11/12/2024 8:55 AM CDT [facility] Card[facility] Stress [address] [place] [address] Amber Aldrich APRN, LIDA Discharge Disposition: Discharged to home or Selfcare 11/12/2024 Telephone [facility] [place] [facility] [address] [place] [address] Monica Dimas RN Hand Pain 11/12/2024 Travel 11/09/2024 2:00 PM CDT [facility] [address] [place] [address] Alize Acosta APRN, LIDA Hypertension, essential (Primary Dx); Chronic combined systolic and diastolic CHF (congestive heart failure) (HCC); Type 2 diabetes mellitus without complication, without long-term current use of insulin; Uncomplicated asthma, unspecified asthma severity, unspecified whether persistent 11/07/2024 Travel 11/02/2024 Travel 11/01/2024 [facility] [address] [place] [address] Tani Biggs, ESTRELLITA Medication Management 11/01/2024 Documentation Only [facility] at [address], [address] [phone] Gisell Espinoza, PT 10/26/2024 1:00 PM CDT Office Visit [facility] Cardiology [facility] [address] [place] [address] Amber Aldrich APRN, LIDA Chronic combined systolic and diastolic CHF (congestive heart failure) (HCC) (Primary Dx); Dyspnea on exertion Discharge Disposition: Discharged to home or Selfcare 10/25/2024 Travel 10/25/2024 Nurse [facility] [address] [place] [phone] Jodee Montoya RN High Blood Pressure 10/20/2024 [facility] [address] [place] [address] David Salmon MD Medication Refill 10/18/2024 1:00 PM CDT Office Visit [facility] Pulmonology & Sleep Medicine [facility] [address] [place] [address] Dom Quiñonez MD EDDI (obstructive sleep apnea) (Primary Dx); Mild intermittent asthma without complication; Hypertension, essential; Non morbid obesity Discharge Disposition: Discharged to home or Selfcare 10/18/[address] [phone] Patricia Dimas RN Hypertension 10/16/2024 Travel 10/11/2024 Patient Outreach [facility] [address] Navigator, Digital Health Patient Outreach; [facility] Equipment 10/07/2024 [facility] [place] [address] [place] [address] Tani Biggs, PAC Medication Refill 10/06/2024 Patient Outreach [facility] [address] [phone] Navigator, Digital Health Patient Outreach 10/03/2024 Refill [facility] [place] [address] [place] [address] Tani Biggs, PAC Medication Refill 10/01/[address] [address] Jaylyn Mosqueda RN Alert for CHF survey score ([facility] ); Cough 09/30/2024 12:45 PM CDT E-Visit [facility] [place] [address] [place] [address] Tani Biggs, PAC E-Visit for Back Pain 09/30/2024 Nurse Triage [facility] [address] [place] [address] Tani Biggs, PAC Appointment 09/30/2024 Travel 09/30/2024 MyChart RX Renewal [facility] Primary [place] [facility] - [place] [address] [place] [address] Rebeka Trinidad MD Medication Renewal Reviewed 09/21/2024 3:20 PM CDT Office Visit [facility] Oncology Services [address] [place] [address] Melony Asif, PAC Anemia, unspecified type (Primary Dx); Beta thalassemia trait Discharge Disposition: Discharged to home or Selfcare 09/21/2024 Travel 09/20/2024 Travel 09/16/2024 Results Follow-Up [facility] On[facility] [address] [place] [address] Melony Asif, PAC VITAMIN B12, FERRITIN, IRON,TRANSFERN,CALC. TIBC,%SAT, Additional followed-up results: 4 09/13/2024 10:30 AM CDT [facility] [address] [place] [address] Melony Asif, PAC Anemia, unspecified type Discharge Disposition: Discharged to home or Selfcare 09/13/2024 Travel 09/06/2024 Travel 09/03/2024 11:00 AM CDT - 09/03/2024 11:59 PM CDT Hospital Encounter [facility] Ultrasound [address] [place] [address] Tani Biggs, ESTRELLITA Discharge Disposition: Discharged to home or Selfcare 09/03/2024 Results Follow-Up [facility] Primary [place] [facility] - [place] [address] [place] [address] Tani Biggs, PAC US LEFT DUPLEX LOWER EXTREMITY VEINS 09/03/2024 Travel 09/03/2024 [facility] [address] [place] [phone] Tani Biggs, PAC Results 09/01/2024 4:00 PM CDT Office Visit [place] [address] [place] [address] Tani Biggs, PAC Pain of left lower leg (Primary Dx); Chronic combined systolic and diastolic CHF (congestive heart failure) (HCC); Hypertension, essential; Hyperlipidemia, unspecified hyperlipidemia type; Type 2 diabetes mellitus without complication, without long-term current use of insulin; Chronic right-sided low back pain with right-sided sciatica Discharge Disposition: Discharged to home or Selfcare 09/01/2024 3:10 PM CDT Lab [place] [address] [place] [phone] Lab, [facility] Chronic combined systolic and diastolic CHF (congestive heart failure) (HCC); Hypertension, essential; Type 2 diabetes mellitus without complication, without long-term current use of insulin; Hyperparathyroidism (HCC); Hyperlipidemia, unspecified hyperlipidemia type Discharge Disposition: Discharged to home or Selfcare 08/31/[address] [address] Lorri Leo APRN, LIDA Medication Refill 08/31/2024 Refill [facility] [address] [place] [address] David Salmon MD Medication Refill 08/30/2024 Telephone [facility] [address] [phone] Cecilia Aguila RN Patient Outreach ([facility] Every 2 Week Scheduled Call/) 08/30/2024 Travel 08/29/2024 Telephone [facility] [address] [phone] Jodee Montoya RN Weight Gain 08/27/2024 Telephone [facility] - [place] [address] [place] [address] Tani Biggs, PAC 08/24/2024 MyChart RX Renewal [facility] [address] [place] [phone] David Salmon MD Medication Renewal Reviewed 08/23/2024 Travel 08/22/2024 MyChart RX Renewal [facility] [address] [place] [phone] David Salmon MD Medication Renewal Reviewed 08/20/2024 Patient Outreach [address] [phone] Patricia Dimas RN Transition of Care 08/18/2024 9:17 PM CDT - 08/19/2024 12:57 AM CDT Emergency [facility] [address] [place] [phone] Zacarias Arellano MD Nausea and vomiting, unspecified vomiting type Discharge Disposition: Discharged to home or Selfcare 08/18/2024 Travel 08/18/2024 Refill [facility] [address] [place] [address] David Salmon MD Medication Refill 08/18/2024 MyChart RX Renewal [facility] [address] [place] [phone] David Salmon MD Medication Renewal Declined 08/18/2024 Patient Outreach [address] [phone] Patricia Dimas RN Transition of Care 08/17/2024 4:28 PM CDT - 08/17/2024 6:37 PM CDT Emergency [facility] [address] [place] [address] Donna Frost APRN, LIDA Osteoarthritis of right hand, unspecified osteoarthritis type Discharge Disposition: Discharged to home or Selfcare 08/17/2024 3:45 PM CDT [facility] [place] [address] [place] [address] David Salmon MD Type 2 diabetes mellitus with hyperglycemia, without long-term current use of insulin (HCC) (Primary Dx); New medication added; Medication dose changed; Overweight Discharge Disposition: Discharged to home or Selfcare 08/17/2024 Travel 08/16/2024 Telephone [facility] [address] [place] [address] Ayla Conte, RN Patient Outreach ([facility] Intentional Call) from Last 3 Months Immunizations Immunization Administration Dates Next Due Influenza Vaccine greater than 3 yrs 12/23/2019 Influenza Vaccine, Quadrivalent, PF 11/3 ,11/13/2021,11/30/2020,12/15 Influenza, Seasonal, Injecta ble, Undefined 12/23/2019 Pneumococcal Vaccine Adult - 23 Valent Pneumococcal conjugate PCV20 , polysaccharide [id number] conjugate, adjuvant, PF 06/07/2022 TDAP Vaccine 06/07/2022 [...] pur e alcohol) Last drink in 2020 [facility] Utilities Answer Date Recorded In the [...] often do you attend chur ch or temple services? 1 to 4 times per year 03/22/2024 Do you belong to any clubs o r organizations such as hindu groups, unions, fraternal or athletic groups, or [...] Recorded Total Score - Questions 1-9 24 09/0 07/2024 [facility] - Occupational Stress Questionnaire Answer [...] place to sleep or slept in a [place] health care facility (including now)? No 03/24/2023 Housing Stability Vital Sign Answer Jovany e Recorded In the last 12 months, was t here a time when you were not able to pay the mortgage or rent on time? Yes 03/22/2024 In the past 12 months, how m any times have you moved where you were living? 0 03/22/2024 At any time in the past 12 m [facility], were you homeless or living in a [place] health care facility (including now)? 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 Not on file Not on file Last Filed Vital Signs Vital Sign Reading Time Taken Comments Blood Pressure 122/81 11/12/2024 10:59 AM CDT Pulse 83 11/12/2024 10:59 AM CDT Temperature 36.4 C (97.5 F) 11/12/2024 10:59 AM CDT Respiratory Rate 17 11/12/2024 10:59 AM CDT Oxygen Saturation 100% 11/12/2024 10:59 AM CDT Inhaled Oxygen Concentration - - Weight 78 kg (172 lb) 11/12/2024 9:39 AM CDT Height 160 cm (5' 3) 11/12/2024 9:39 AM CDT Body Mass Index 30.47 11/12/2024 9:39 AM CDT Plan of Treatment Upcoming Encounters Date Type Department Care Team (Late st Contact Info) Description 11/17/2024 2:00 PM CDT Telemedicine [facility] [address] [place] [address] Alize Acosta APRN, PHARMACY MANAGER [address] [place] [address] 11/18/2024 3:45 PM CDT Office Visit [facility] - Endocrinology - [place] [address] [place] [address] David Salmon MD [address] [address] 11/24/2024 2:40 PM CDT Telemedicine [facility] [address] [place] [phone] 01/03/2025 11:30 AM CDT Office Visit [facility] - Neurology - [place] [address] [place] [address] Rachelle Nava APRN, THERMAL CUTTING MACHINE OPERATOR [address] [place] [address] 03/04/2025 3:10 PM HYDRAULIC PUNCH PRESS OPERATOR Lab [facility] - Primary Care - [place] [facility] [place] [phone] Dwaien Colon [facility] 03/04/2025 3:30 PM HYDRAULIC PUNCH PRESS OPERATOR [facility] [place] [address] [place] [phone] Tani Biggs, PAC [address] [place] [address] 03/17/2025 1:30 PM HYDRAULIC PUNCH PRESS OPERATOR Lab [facility] Oncology Services [address] [place] [phone] Melony Asif, PAC [address] [place] [address] Discharge Disposition: Discharged to home or Selfcare 03/25/2025 1:20 PM HYDRAULIC PUNCH PRESS OPERATOR [facility] [address] [place] [phone] Melony Asif, PAC [address] [place] [address] Discharge Disposition: Discharged to home or Selfcare 04/25/2025 2:00 PM HYDRAULIC PUNCH PRESS OPERATOR Office Visit [facility] - Cardiology - [place] [address] [place] [phone] Laisha Griffin, DO [address] [address] 07/18/2025 1:00 PM CDT Office Visit [facility] - Pulmonology & Sleep Medicine - [place] [address] [place] [phone] Dom Quiñonez MD [address] [place] [phone] Health Maintenance Due Date Last Done Comments [...] 3:12 PM CDT) Yes Hilda Tinajero [facility] Note: Goal/Objective: Decrease symptoms of depression and anxiety. Anticipated Time Frame for Goal Completion: 3 months Goal Reviewed with: patient Readiness to change: Thinking about making a change Department associated with goal: [facility] Steps to [...] Disease Management On track(12/21 2:27 PM CDT) No Xiomy Linda RN Note: Goal: To effectively manage hypertension [...] diet Depression Depression Improving(0 03/15/2022 2:27 PM HYDRAULIC PUNCH PRESS OPERATOR) No Breanne Saldana LCSW Note: Goal/Objective: [...] Ready to change Department associated with goal: [facility] Steps to [...] is salt. Medical Devices Implanted Type Area Technician Inventory Specialist Device Identifier Shelf Expiration Date Model / Serial / Lot Device Clsr 6-7fr Mynxgrip Director Of Oncology Vasc Bln Cath Lock Syr Integrate Sealant 10ml Lf Disp - [id number] Implanted:Qty : 1 on 11/07/2017 by Divina Xie MD at [facility] IMPLANT Right: Groin [employer] 10/08/2019 [id number] / / [id number] Procedures Procedure Name Priority Date/Time Associated Diagnosis Comments NM CARD MULTI SPECT WITH WALL MOTION AND EJECTION FRACTION Routine 11/12/2024 9:46 AM CDT Chronic combined systolic and diastolic CHF (congestive heart failure) (HCC) Dyspnea on exertion PAIN CONSULT 10/13/2024 12:00 AM CDT NEUROSURGY [...] Allergy, initial encounter Other specified counseling Other fpc (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 YAZAN SCREENING BILATERAL DIGITAL W CAD W ROSEANN Routine 06/19/2022 3:15 PM CDT Encounter for screening mammogram for breast cancer PATHOLOGY CYTOLOGY BUSINESS ADMINISTRATION INSTRUCTOR Routine 09/26/2021 9:23 AM CDT Vaginal odor CELIAC ANTIBODY PANEL Routine 11/30/2020 8:41 AM CDT SI (sacroiliac) pain Acute bilateral low back pain with bilateral sciatica Low lying conus medullaris (HCC) from Last 3 Months or Most Recently Relevant to Health Maintenance Results * NM CARD MULTI SPECT WITH WALL MOTION AND EJECTION FRACTION (11/12/2024 9:46 AM CDT) Anatomical Region Laterality Modality CARDIO N/A Nuclear Medicine Narrative 11/12/2024 3:36 PM CDT Nuclear stress test report Exam description: NM cardiac multi SPECT with wall motion and ejection fraction Reason for exam: Chest heaviness, CHF, exertional dyspnea, preoperative clearance Radiopharmaceutical: Rest: 11 mCi Myoview at 8:50 AM Stress: 32.6 mCi Myoview at 9:23 AM Injection site: Right AC vein Technique: Standard myocardial perfusion images were obtained after resting a tracer injection. Subsequently, an intravenous infusion of 0.4 mg Lexiscan was performed. Standard myocardial perfusion images were obtained after tracer injection at peak effect of the drug. Findings: Stress images with evidence of mild mid inferior defect with minimal changes at stress could be consistent with diaphragmatic attenuation artifact versus less likely true ischemia. Normal LV size and systolic function with calculated LVEF at 51%. Impression: 1. Normal LV size and systolic function. Calculated LVEF 51% 2. Mild defect in the mid inferior wall that is likely consistent with diaphragmatic attenuation artifact and less likely true ischemia. Sharri Gaspar MD, [facility] Interventional and Structural Cardiology [facility] Reflesherteen counselor [facility] [employer] Email: [email or web address] Office phone: [phone] [place] ([place]) Office: [phone]' us Amber Aldrich APRN, PHARMACY MANAGER IMG NM CARDIAC NI ORDERABLES Final Result * PAIN CONSULT (10/13/2024 12:00 AM CDT) 10/13/2024 us Provider Scan GENERIC SCAN ORDERS CONSULT Donna l Result Performing Organization Address [facility] Co de Phone Number SCAN * NEUROSURGY CONSULT (10/01/2024 12:00 AM CDT) 10/01/2024 us Provider Scan GENERIC SCAN ORDERS CONSULT Donna l Result Performing Organization Address [facility] Co de Phone Number SCAN * XR - SPINE (09/20/2024 12:00 AM CDT) 09/20/2024 us Provider Scan IMG DIAGNOSTIC ORDERABLES Final Result Performing Organization Address City/[facility] Co de Phone Number SCAN * IRON,TRANSFERN,CALC.TIBC,%SAT (09/13/2024 10:54 AM CDT) IRON 74 25 - 156 mcg/dL 09/13/2024 11:40 AM CDT [facility] TRANSFERRIN 317 180 - 382 mg/dL 09/13/2024 11:40 AM CDT [facility] TIBC, CALCULATED 396 265 - 497 mcg/dL 09/13/2024 11:40 AM CDT [facility] % SATURATION * 19 15 - 62 % 09/13/2024 11:40 AM CDT [facility] Blood Venipuncture / Unknown 09/13/2024 10:54 AM CDT 09/13/2024 10:54 AM CDT us Melony Asif PAC CHEMISTRY ORDERABLES Donna correa Result [facility] [address] [place] [address] * (ABNORMAL) CBC WITH AUTO DIFFERENTIAL (09/13/2024 10:54 AM CDT) Only the most recent of3 resultswithin the time period is included. WBC 6.81 4.00 - 12.00 10(3)/mcL 09/13/2024 11:18 AM CDT [facility] RBC 5.56(H) 3.80 - 5.30 10(6)/[facility] 09/13/2024 11:18 AM CDT [facility] HEMOGLOBIN (HGB) 13.5 12.0 - 15.8 g/dL 09/13/2024 11:18 AM CDT [facility] HEMATOCRIT (HCT) 43.0 36.0 - 47.0 % 09/13/2024 11:18 AM CDT [facility] MCV 77.3(L) 82.0 - 96.0 fL 09/13/2024 11:18 AM CDT [facility] MCH 24.3(L) 26.0 - 34.0 pg 09/13/2024 11:18 AM CDT [facility] MCHC 31.4 31.0 - 36.0 g/dL 09/13/2024 11:18 AM CDT [facility] PLATELET COUNT 237 140 - 440 10(3)/mcL 09/13/2024 11:18 AM CDT [facility] RDW 18.2(H) 11.8 - 15.5 % 09/13/2024 11:18 AM CDT [facility] MPV 11.8 9.7 - 12.4 fL 09/13/2024 11:18 AM CDT [facility] NEUTROPHILS 61.8 47.0 - 73.0 % 09/13/2024 11:18 AM CDT [facility] LYMPHOCYTES 25.4 18.0 - 42.0 % 09/13/2024 11:18 AM CDT [facility] MONOCYTES 7.9 4.0 - 12.0 % 09/13/2024 11:18 AM CDT [facility] EOSINOPHILS 3.7 0.0 - 5.0 % 09/13/2024 11:18 AM CDT [facility] BASOPHILS 0.6 0.0 - 1.0 % 09/13/2024 11:18 AM CDT [facility] IMMATURE GRANULOCYTE 0.6(H) 0.0 - 0.4 % 09/13/2024 11:18 AM CDT [facility] Comment:Immature Granulocyte s includes Metamyelocytes, Myelocytes, and Promyelocytes. ABSOLUTE NEUTROPHILS 4.21 1.60 - 7.70 10(3)/mcL 09/13/2024 11:18 AM CDT [facility] ABSOLUTE LYMPHOCYTES 1.73 1.30 - 3.20 10(3)/[facility] 09/13/2024 11:18 AM CDT [facility] ABSOLUTE MONOCYTES 0.54 0.20 - 1.00 10(3)/[facility] 09/13/2024 11:18 AM CDT [facility] ABSOLUTE EOSINOPHIL 0.25 0.00 - 0.40 10(3)/mcL 09/13/2024 11:18 AM CDT [facility] ABSOLUTE BASOPHILS 0.04 0.00 - 0.10 10(3)/[facility] 09/13/2024 11:18 AM CDT [facility] ABSOLUTE IMMATURE GRANULOCYTE 0.04(H) 0.00 - 0.03 10 (3) mcL. 09/13/2024 11:18 AM CDT [facility] NRBC PER 100 WBC 0 09/14/19 11:18 AM CDT [facility] Blood Venipuncture / Unknown 09/13/2024 10:54 AM CDT 09/13/2024 10:54 AM CDT [facility] PAC HEMATOLOGY ORDERABLES Fin al Result [facility] [address] [place] [address] * (ABNORMAL) FREE KAPPA & LAMBDA LIGHT CHAINS SERUM (09/13/2024 10:54 AM CDT) Free [place] [facility] 26.34(H) 3.30 - 19.40 mg/L 09/15/2024 10:19 AM CDT [facility] Free Lambda Lt Chn 28.92(H) 5.71 - 26.30 mg/L 09/15/2024 10:19 AM CDT [facility] free toan pinto ratio 0.91 0.26 - 1.65 09/15/2024 10:19 AM CDT [facility] Blood Venipuncture / Unknown 09/13/2024 10:54 AM CDT 09/13/2024 10:54 AM CDT [facility] PAC CHEMISTRY ORDERABLES Donna l Result [facility] [address] [place] [address], * VITAMIN B12 (09/13/2024 10:54 AM CDT) VITAMIN B12 451 213 - 816 pg/mL 09/13/2024 12:02 PM CDT [facility] Blood Venipuncture / Unknown 09/13/2024 10:54 AM CDT 09/13/2024 10:54 AM CDT Melony Asif PAC CHEMISTRY ORDERABLES Donna l Result [facility] [facility] [place] [address] * (ABNORMAL) IMMUNOFIXATION W/ ELECTROPHORESIS SERUM (09/13/2024 10:54 AM CDT) TOTAL PROTEIN 7.3 6.0 - 8.0 g/dL 09/15/2024 2:01 PM CDT [facility] % ALBUMIN 51.7(L) 55.8 - 66.7 % 09/15/2024 2:01 PM CDT [facility] ALBUMIN SERUM 3.8 2.5 - 5.4 g/dL 09/15/2024 2:01 PM CDT [facility] % ALPHA 1 GLOBULIN 3.2 2.9 - 4.9 % 09/15/2024 2:01 PM CDT [facility] ALPHA 1 0.2 0.2 - 0.4 g/dL 09/15/2024 2:01 PM CDT [facility] % ALPHA 2 GLOBULIN 12.2(H) 7.1 - 11.8 % 09/15/2024 2:01 PM CDT [facility] ALPHA 2 0.9 0.5 - 1.0 g/dL 09/15/2024 2:01 PM CDT [facility] % BETA 16.5(H) 8.4 - 13.1 % 09/15/2024 2:01 PM CDT [facility] BETA-GLOBULIN 1.2(H) 0.5 - 1.1 g/dL 09/15/2024 2:01 PM CDT [facility] % GAMMA GLOBULIN 16.4 11.1 - 18.8 % 09/15/2024 2:01 PM CDT [facility] GAMMA 1.2 0.7 - 1.5 g/dL 09/15/2024 2:01 PM CDT [facility] IMMUNOGLOBULIN G 1,113 552 - 1,631 mg/dL 09/15/2024 2:01 PM CDT [facility] IMMUNOGLOBULIN A 281 65 - 421 mg/dL 09/15/2024 2:01 PM CDT [facility] IMMUNOGLOBULIN M 140 33 - 293 mg/dL 09/15/2024 2:01 PM CDT [facility] INTERPRETATION SERUM No abnormal protein band is detected by serum protein electrophoresis. Serum immunofixation electrophoresis is negative for monoclonal immunoglobulins. Reviewed by Laura Nicholas, Ph.D. 09/15/2024 2:01 PM CDT [facility] A/G RATIO, SERUM 1.1 09/16/19 2:01 PM CDT [facility] Blood Venipuncture / Unknown 09/13/2024 10:54 AM CDT 09/13/2024 10:54 AM CDT Narrative [facility] - 09/15/2024 2:01 PM CDT Reviewed by Terrance Ellsworth Jr., M.D. [facility] PAC CHEMISTRY ORDERABLES Donna l Result [facility] [address] [place] [address], [place] * FERRITIN (09/13/2024 10:54 AM CDT) FERRITIN 31 5 - 204 ng/mL 09/13/2024 11:56 AM CDT [facility] Blood Venipuncture / Unknown 09/13/2024 10:54 AM CDT 09/13/2024 10:54 AM CDT [facility] PAC CHEMISTRY ORDERABLES Donna l Result [facility] [address] [place] [address] * (ABNORMAL) CMP (COMPREHENSIVE METABOLIC PANEL) (09/13/2024 10:54 AM CDT) Only the most recent of2 resultswithin the time period is included. SODIUM 137 136 - 145 mmol/L 09/13/2024 11:40 AM CDT [facility] POTASSIUM 4.6 3.5 - 5.1 mmol/L 09/13/2024 11:40 AM CDT [facility] CHLORIDE 112(H) 98 - 107 mmol/L 09/13/2024 11:40 AM CDT [facility] CO2, VENOUS 16(L) 22 - 30 mmol/L 09/13/2024 11:40 AM CDT [facility] ANION GAP 13.6 <18.0 mmol/L 09/13/2024 11:40 AM CDT [facility] GLUCOSE 150(H) 70 - 99 mg/dL 09/13/2024 11:40 AM CDT [facility] BUN 24(H) 10 - 20 mg/dL 09/13/2024 11:40 AM CDT [facility] CREATININE, BLOOD 1.13(H) 0.60 - 1.00 mg/dL 09/13/2024 11:40 AM CDT [facility] BUN/CREATININE RATIO 21(H) 12 - 20 ratio 09/13/2024 11:40 AM CDT [facility] TOTAL PROTEIN 7.7 6.0 - 8.0 g/dL 09/13/2024 11:40 AM CDT [facility] ALBUMIN 4.3 3.5 - 5.0 g/dL 09/13/2024 11:40 AM CDT [facility] A/G RATIO 1.3 1.0 - 2.2 09/13/2024 11:40 AM CDT [facility] CALCIUM 10.5 8.7 - 10.5 mg/dL 09/13/2024 11:40 AM CDT [facility] T BILI 0.3 0.2 - 1.2 mg/dL 09/13/2024 11:40 AM CDT [facility] SGOT (AST) 34 <43 U/L 09/13/2024 11:40 AM CDT [facility] SGPT (ALT) 26 <56 U/L 09/13/2024 11:40 AM CDT [facility] ALKALINE PHOSPHATASE 88 40 - 150 U/L 09/13/2024 11:40 AM CDT [facility] IS THE PATIENT REQUIRED TO BE FASTING? No 09/13/2024 11:40 AM CDT [facility] GFR, ESTIMATED 57(L) >=60 09/13/2024 11:40 AM CDT [facility] Comment: Creatinine Clearance is the preferred criteria for selecting drug dose adjustments in renally impaired patients. The GFR is provided as additional pertinent clinical information. GFR is reported in mL/min/1.73 sq m. Calculation based on the Chronic Kidney Disease Epidemiology Collaboration (CKD- EPI) equation refit without adjustment for race. GFR, EST. >60 >=60 025 11:40 AM CDT [facility] GFR, EST. NONAFRICAN 50(L) >=60 09/13/2024 11:40 AM CDT [facility] Blood Venipuncture / Unknown 09/13/2024 10:54 AM CDT 09/13/2024 10:54 AM CDT Melony Asif PAC CHEMISTRY ORDERABLES Donna l Result [facility] [address] [place] [address] * US LEFT DUPLEX LOWER EXTREMITY VEINS [...] Milagros Morris D.O. PS: PS Report ID: [id number] Reading Location: [id number] Procedure Note Milagros Morris DO - 09/03/2024 [...] Milagros Morris D.O. PS: MOSES Report ID: [id number] Reading Location: [id number] IMPRESSION: 1. No lower extremity deep venous thrombosis. Tani Biggs PAC IMG US ORDERABLES Final Resu lt * THYROID SCREEN WITH REFLEX (09/01/2024 3:21 PM CDT) TSH 2.167 0.300 - 5.000 mIU/L 09/02/2024 9:55 AM CDT [facility] Blood Venipuncture / Unknown 09/01/2024 3:21 PM CDT 09/01/2024 3:21 PM CDT Tani Biggs PAC CHEMISTRY ORDERABLES Final R esult Performing Organization Address City/[facility]/ZIP Co de Phone Number [facility] [address] [place] [address] * (ABNORMAL) LIPID PANEL (09/01/2024 3:21 PM CDT) CHOLESTEROL 151 <200 mg/dL 09/02/2024 9:31 AM CDT [facility] TRIGLYCERIDES 184(H) <150 mg/dL 09/02/2024 9:31 AM CDT [facility] HDL CHOLESTEROL 68 >40 mg/dL 9:31 AM CDT [facility] LDL 46 <130 mg/dL 09/02/2024 9:31 AM CDT [facility] VLDL 37 10 - 50 mg/dL 09/02/2024 9:31 AM CDT [facility] CHOL/HDL RATIO 2.2 0.0 - 4.4 09/02/2024 9:31 AM CDT [facility] NON-HDL CHOLESTEROL 83 <130 mg/dL 09/02/2024 9:31 AM CDT [facility] IS THE PATIENT REQUIRED TO BE FASTING? Yes 09/02/2024 9:31 AM CDT [facility] HAS THE PATIENT BEEN FASTING? Yes 09/02/2024 9:31 AM CDT [facility] Blood Venipuncture / Unknown 09/01/2024 3:21 PM CDT 09/01/2024 3:21 PM CDT Tani Biggs PAC CHEMISTRY ORDERABLES Final R esult [facility] [place] [address] * (ABNORMAL) BASIC METABOLIC PANEL W/ CALCIUM TOTAL (09/01/2024 3:21 PM CDT) SODIUM 138 136 - 145 mmol/L 09/02/2024 9:31 AM CDT [facility] POTASSIUM 4.9 3.5 - 5.1 mmol/L 09/02/2024 9:31 AM CDT [facility] CHLORIDE 106 98 - 107 mmol/L 09/02/2024 9:31 AM CDT [facility] CO2, VENOUS 26 22 - 30 mmol/L 09/02/2024 9:31 AM CDT [facility] ANION GAP 10.9 <18.0 mmol/L 09/02/2024 9:31 AM CDT [facility] GLUCOSE 108(H) 70 - 99 mg/dL 09/02/2024 9:31 AM CDT [facility] BUN 10 10 - 20 mg/dL 09/02/2024 9:31 AM CDT [facility] CREATININE, BLOOD 0.88 0.60 - 1.00 mg/dL 09/02/2024 9:31 AM T [facility] BUN/CREATININE RATIO 11(L) 12 - 20 ratio 09/02/2024 9:31 AM CDT [facility] CALCIUM 9.9 8.7 - 10.5 mg/dL 09/02/2024 9:31 AM CDT [facility] IS THE PATIENT REQUIRED TO BE FASTING? No 09/02/2024 9:31 AM CDT [facility] GFR, ESTIMATED >60 >=60 09/02/2024 9:31 AM CDT [facility] Comment: Creatinine Clearance is the preferred criteria for selecting drug dose adjustments in renally impaired patients. The GFR is provided as additional pertinent clinical information. GFR is reported in mL/min/1.73 sq m. Calculation based on the Chronic Kidney Disease Epidemiology Collaboration (CKD- EPI) equation refit without adjustment for race. GFR, EST. >60 >=60 025 9:31 AM CDT [facility] GFR, EST. NONAFRICAN >60 >=60 09/02/2024 9:31 AM CDT [facility] Blood Venipuncture / Unknown 09/01/2024 3:21 PM CDT 09/01/2024 3:21 PM CDT Tani Biggs PAC CHEMISTRY ORDERABLES Final R esult Performing Organization Address City/[facility]/ZIP Co de Phone Number [facility] [address] [place] [address] * EXTERNAL PAIN REFERRAL (08/26/2024 12:00 AM CDT) 08/26/2024 Phil Jacobo MD OUTPT REFERRALS EXT/INT Donna l Result Performing Organization Address City/[facility] Co de Phone Number SCAN * CT [...] Yury Rowe M.D. KT: ARASH Report ID: [id number] Reading Location: [id number] Procedure Note Yury Rowe MD - 08/19/2024 [...] Yury Rowe M.D. KT: KT Report ID: [id number] Reading Location: [place] [address] IMPRESSION: 1. Fatty infiltration of the liver. 2. Postoperative changes partial right nephrectomy. 3. Nonobstructing bilateral renal stones. 4. Diverticulosis. No evidence of diverticulitis. Zacarias Arellano MD IMG CT ORDERABLES Final R esult * Magnesium (08/18/2024 9:35 PM CDT) [facility] MAGNESIUM 2.3 1.6 - 2.6 mg/dL 08/18/2024 10:10 PM CDT [facility] Blood Venipuncture / Unknown 08/18/2024 9:35 PM CDT 08/18/2024 9:47 PM CDT Zacarias Arellano MD CHEMISTRY ORDERABLES Donna l Result [facility] [address] [place] [address] * Lipase (08/18/2024 9:35 PM CDT) Pathologist [facility] LIPASE 59 8 - 78 U/L 08/18/2024 10:10 PM CDT [facility] Blood Venipuncture / Unknown 08/18/2024 9:35 PM CDT 08/18/2024 9:47 PM CDT us Zacarias Arellano MD CHEMISTRY ORDERABLES Donna l Result [facility] [address] [place] [address] * XR HAND 2 VIEWS RIGHT (08/17/2024 [...] Electronically signed by Salima Smith M.D. TW: AIME Report ID: [id number] Reading Location: [id number] Procedure Note Salima Smith MD - 08/17/2024 [...] Salima Smith M.D. TW: TW Report ID: [id number] Reading Location: [id number] IMPRESSION: 1. Polyarticular osteoarthritis. Known erosive change [...] Pavithra Ledbetter M.D. FT: FT Report ID: [id number] Reading Location: [id number] Procedure Note Pavithra Pollock MD - 06/21/2023 [...] Pavithra Ledbetter M.D. FT: FT Report ID: [id number] Reading Location: [id number] IMPRESSION: Unchanged bilateral patchy ground-glass opacities, greatest in the left upper lobe. No focal consolidation or suspicious pulmonary nodule. Lung-RADS category 2S: Benign appearance or behavior. Finding other than a pulmonary nodule which is potentially clinically significant. Recommendation: Low dose CT of chest in 3 months. Belkis Mcnair APRN, CNP [facility] CT ORDERABL ES Final Result * HEPATITIS C ANTIBODY (08/19/2022 12:26 PM CDT) hepatitis C antibody 0.07 <1 S/CO [facility] ARCH [id number] B 08/19/2022 9:49 PM CDT [facility] Comment: Signal/Cutoff ratio < 0.79 is Nondetected Signal/Cutoff ratio 0.80-0.99 is Grayzone Signal/Cutoff ratio > 0.99 is Detected Supplemental assays are recommended if signal/cutoff ratio is >/=1.00. Signal/cutoff ratio result >/= 5.00 is 97% predictive of positivity for recombinant immunoblot assay (RIBA) and will be reported to the [place] Department of Public [facility] as required. Blood Venipuncture / Unknown 08/19/2022 12:26 PM CDT 08/19/2022 12:38 PM CDT us Tarsha Fernandez MD CHEMISTRY ORDERABLES Final Res ult [facility] [address] [place] [address], [place] * YAZAN SCREENING BILATERAL DIGITAL W [...] Comparison is made to exam dated: 02/16/2020 [facility]. BREAST TISSUE:There are scattered fibroglandular densities [...] exam. Electronically signed by: Solange huynh/jeff:06/19/2022 16:18:35 Manager Terminal(s): RT Tawny(R)(M), [facility] letter sent: Normal Exam Reading location: [facility] BI-RADS: 1 Negative Procedure Note [...] Comparison is made to exam dated: 02/16/2020 [facility]. BREAST TISSUE:There are scattered fibroglandular densities [...] exam. Electronically signed by: Solange huynh/jeff:06/19/2022 16:18:35 Manager Terminal(s): RT Tawny(R)(M), [facility] letter sent: Normal Exam Reading location: [facility] BI-RADS: 1 Negative Emilia Tang MD IMG MAMMO ORDERABLES Final R esult * PATHOLOGY CYTOLOGY BUSINESS ADMINISTRATION INSTRUCTOR (09/26/2021 9:23 AM CDT) SPECIMEN ADEQUACY Satisfactory for evaluation. Endocervical/transf ormation zone component is absent. 09/28/2021 9:05 AM CDT [facility] DESCRIPTIVE DIAGNOSIS NEGATIVE FOR INTRAEPITHELIAL LESIONS OR MALIGNANCY. 09/28/2021 9:05 AM CDT [facility] at 0905 CDT OTHER FINDINGS Fungal organisms present, morphologically consistent with Kristen species. 09/28/2021 9:05 AM CDT [facility] HPV Reflex if ASCUS? Yes 09/28/2021 9:05 AM CDT [facility] Automated Examination Analysis of this sample has been assisted by an automated imaging and review system ([employer] Imaging System, [employer], [place], [place]). This case is further evaluated and finalized by a television repairman and/or pathologist. 09/28/2021 9:05 AM CDT [facility] Disclaimer The PAP smear is a screening [...] unless clinically indicated. 09/28/2021 9:05 AM CDT [facility] Other SPECIMEN FROM CERVIX OR VAGINA / Unknown Non-Phlebotomy Collection / Unknown 09/26/2021 9:23 AM CDT 09/26/2021 9:23 AM CDT Jackeline Dimas APRN, CNP PATHOLOGY/CYTOLOGY MYLENE HAMMER Final Result [facility] [address] [place] [address], [place] from Last 3 Months or Most Recently Relevant to Health Maintenance Insurance MEDICARE C [facility] [employer] Advance Directives Documents on File Type Date Recorded Patient National Coverage Specialist Expl anation Power of Process Improvement Consultant for Health Care 05/23/2021 2:13 PM POA-HC [...] measures to stabilize the patient. Care Teams Tableau Report Developer Relationship Specialty Start Date End Date Kalyan Tani B, PAC [address] [place] [address] PCP - General Physician Screenplay Writer 05/31/24 Phil Jcaobo MD [address] [place] [address] Consulting Physician Neurology 03/07/21 Rajiv Mccormack, BACKHAUL DRIVER [address] [place] [address] Nurse Practitioner Gastroenterology 03/07/21 Alize Acosta APRN, PHARMACY MANAGER [facility] [place] [address] Virtual [facility] (VAC) MANAGER TRACK Advanced Practice Nurse 08/30/21 David Salmon MD #[address] [address] Consulting Physician Endocrinology 01/15/22 Maurilio Farley MD #[address] [id number] Consulting Physician Colon and Rectal Surgery 09/20/22 Dom Quiñonez MD [address] [place] [address] Consulting Physician Pulmonary Disease 11/19/21 Rachelle Nava APRN, THERMAL CUTTING MACHINE OPERATOR [address] [place] [address] Nurse Practitioner Advanced Practice Nurse 07/19/22 Sharri Gaspar MD 2 [facility] [address] [address] Consulting Physician Cardiology 04/26/24 Amber Aldrich APRN, PHARMACY MANAGER [address] [place] [address] Nurse Practitioner Cardiology 07/30/24
--- OUTSIDE RECORDS SUMMARY | 2024-11-16 13:25 | XMS_ITS | Encounter Summary ---
Author Organization [facility] Address [address] [place] [address] Phone Care Team Providers Care Chemical Engraver Name Role Phone Jackeline Dimas CONE WORKER, BONE CHAR OPERATOR Primary Care Provider Fiona Martinez CLOUD OPERATIONS ENGINEER Unavailable Unavailab Phil Ellis MD Unavailable [phone] Rajiv Mccormack NP Unavailable Unavailable Renita Quezada RN Unavailable Unavailable Alize Acosta CONE WORKER, BONE CHAR OPERATOR Unavailable [phone] Dayo Chaney MD Unavailable Juanita Hauser RN Unavailable Unavaila David Martinez MD Unavailable Emilia Tang MD Primary Care Provider [phone] Maurilio Farley MD Unavailable Candida Turner MD Unavailable Rebeka Trinidad MD Primary Care Provider + [phone] Dom Quiñonez MD Unavailable Rachelle Nava CONE WORKER, PHYSICAL SCIENCE AIDE Unavailable + [phone] Irais Naylor CONE WORKER, BONE CHAR OPERATOR Unavailable + [phone] AhmetAngélicamando Littlejohn CONE WORKER, BONE CHAR OPERATOR Primary Care Provider + [phone] Rebeka Trinidad MD Primary Care Provider + [phone] Lorri Leo CONE WORKER, BONE CHAR OPERATOR Primary Care Provider [phone] Sharri Gaspar MD Unavailable Tani Biggs [facility] Primary Care Provider + [phone] Amber Aldrich CONE WORKER, BONE CHAR OPERATOR Unavailable Reason for Visit * Reason Comments Medication Refill Encounter Details Date Type Department Care Team (Late Contact Info) Description 06/15/2020 Refill [facility] - Primary Care - [place] [address] [place] [address] Jackeline Dimas, CONE WORKER, [facility] [address] [place] [address] Medication Refill Social History Tobacco [...] 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 Not on file Not [...] Description 11/17/2024 2:00 PM CDT Telemedicine [facility] [address] [place] [address] Alize Acosta, CONE WORKER, BONE CHAR OPERATOR [address] [place] [address] 11/18/2024 3:45 PM CDT Office Visit [facility] - Endocrinology - [place] [address] [place] [address] David Salmon MD #[address] [address] 11/24/2024 2:40 PM CDT Telemedicine [facility] [address] [place] [address] 01/03/2025 11:30 AM CDT [facility] [place] [address] [place] [id number] Rachelle Nava, CONE WORKER, PHYSICAL SCIENCE AIDE [address] [place] [address] 03/04/2025 3:10 PM CREW TRAINER Lab [facility] Primary [facility] [place] [facility] [place] [address] [place] [address] [facility] 03/04/2025 3:30 PM CREW TRAINER Office Visit [facility] Primary [facility] [place] [facility] [place] [address] [place] [address] Tani Biggs, [facility] [address] [place] [address] 03/17/2025 1:30 PM CREW TRAINER Lab [facility] [address] [place] [phone] Melony Asif, PAC [address] [place] [address] Discharge Disposition: Discharged to home or Selfcare 03/25/2025 1:20 PM CREW TRAINER [facility] [address] [facility] [phone] Melony Asif August, PAC [address] [place] [address] Discharge Disposition: Discharged to home or Selfcare 04/25/2025 2:00 PM CREW TRAINER Office Visit [facility] - Cardiology - [place] [address] [place] [address] Laisha Griffin, DO [address] [address] 07/18/2025 1:00 PM CDT [facility] [address] [place] [address] Dom Quiñonez MD [address] [place] [address] documented as of this encounter Visit Diagnoses Not on filedocumented in this encounter Additional Health Concerns Infection Onset Date Last Indicated Resolved Time COVID - 19 01/08/2021 01/08/2021 01/28/2021 12:1 6 AM CREW TRAINER COVID - 19 03/12/2021 03/12/2021 04/01/2021 12:1 6 AM CREW TRAINER COVID - 19 12/15/2021 12/15/2021 12/15/2021 7:26 PM CDT COVID - 19 Confirmed 12/15/2021 12/15/2021 022 12:16 AM CDT COVID - 19 04/18/2024 04/18/2024 04/18/2024 10:4 7 PM CREW TRAINER Respiratory Rule-Out 05/06/2024 05/06/2024 025 9:20 AM CREW TRAINER COVID - 19 05/06/2024 05/06/2024 05/06/2024 9:19 AM CREW TRAINER Assessment Noted Time PHQ-9 Depression Total Score: 0 09/01/19 11:58 AM CDT documented as of this encounter Care Teams Chemical Engraver Relationship Specialty Start Date End Date Jackeline Dimas, CONE WORKER, BONE CHAR OPERATOR [address] [place] [address] PCP - General Advanced Practice Nurse 07/31/17 Emilia Tang MD [address] [place] [address] PCP - General Family Medicine 06/07/22 03/25/23 Rebeka Trinidad MD [address] [place] [address] PCP - General Family Medicine 03/26/23 03/29/24 Lorri Leo APRN, BONE CHAR OPERATOR [address] [place] [address] PCP - General Certified Nurse Practitioner 03/30/24 04/20/24 Rebeka Trinidad MD [address] [place] [address] PCP - General Family Medicine 04/21/24 04/21/24 Lorri Leo APRN, BONE CHAR OPERATOR [address] [place] [address] PCP - General Certified Nurse Practitioner 04/22/24 05/30/24 Tani Biggs, PAC [address] [place] [phone] PCP - General Physician Senior Mobile Web Developer 05/31/24 Fiona Martinez, CLOUD OPERATIONS ENGINEER [place] Calender Roll Operator 03/01/21 08/23/21 Phil Jacobo MD [address] [place] [phone] Consulting Physician Neurology 03/07/21 Rajiv Mccormack, KELI [address] [place] [address] Nurse Practitioner Gastroenterology 03/07/21 Renita Quezada RN [place] Calender Roll Operator 05/09/21 08/23/21 Alize Acosta, CONE WORKER, BONE CHAR OPERATOR [facility] [place] [address] Virtual Advanced Care (VAC) GLOBAL SECURITY ARCHITECT Advanced Practice Nurse 08/30/21 Dayo Chaney MD [address] [place] [address] Semiconductor Technician Cardiovascular Disease - Cardiology 09/20/21 02/12/24 Juanita Mercado, [place] Registered Nurse Cardiology 12/24/21 02/12/24 David Salmon MD #[address] [phone] Consulting Physician Endocrinology 01/15/22 Maurilio Farley MD #[address] [address] Consulting Physician Colon and Rectal Surgery 09/20/22 PhysicianCandida MD [address] [place] [address] Family Medicine 01/25/22 03/18/23 Dom Quiñonez MD [address] [place] [address] Consulting Physician Pulmonary Disease 11/19/21 Rachelle Nava APRN, PHYSICAL SCIENCE AIDE [address] [place] [address] Nurse Practitioner Advanced Practice Nurse 07/19/22 Irais Naylor APRN, BONE CHAR OPERATOR [address]2 [facility] [address] [place] [address] Nurse Practitioner Cardiology 06/27/23 07/29/24 Sharri Gaspar MD 2 [facility] [address] [place] [address] Consulting Physician Cardiology 04/26/24 Amber Aldrich APRN, BONE CHAR OPERATOR [address] [place] [address] Nurse Practitioner Cardiology 07/30/24 documented as of this encounter
--- OUTSIDE RECORDS SUMMARY | 2024-11-16 13:25 | XMS_ITS | Encounter Summary ---
Author Organization [facility] Address [address] [place] [address] Phone Care Team Providers Care Parts Designer Name Role Phone Jackeline Dimas BOATBUILDER SUPERVISOR, PUTTY AND PATCH WORKER Primary Care Provider Phil Jacobo MD Unavailable +[phone] Rajiv Mccormack NP Unavailable Unavailable Alize Acosta BOATBUILDER SUPERVISOR, PUTTY AND PATCH WORKER Unavailable +[phone] Dayo Chaney MD Unavailable Juanita Hauser RN Unavailable UnavailDavid Alexandre MD Unavailable Emilia Tang MD Primary Care Provider [phone] Maurilio Farley MD Unavailable Physician, Candida Davis MD Unavailable Rebeka Trinidad MD Primary Care Provider + [phone] Dom Quiñonez MD Unavailable Rachelle Nava BOATBUILDER SUPERVISOR, TOMBSTONE SETTER Unavailable + [phone] Irais Naylor BOATBUILDER SUPERVISOR, PUTTY AND PATCH WORKER Unavailable + [phone] Lorri Leo BOATBUILDER SUPERVISOR, PUTTY AND PATCH WORKER Primary Care Provider [phone] Rebeka Trinidad MD Primary Care Provider + [phone] AhmetLorri Annetta BOATBUILDER SUPERVISOR, [facility] Primary Care Provider + [phone] Sharri Gaspar MD Unavailable Kalyan Tani B [facility] Primary Care Provider [phone] Amber Aldrich APRN, [facility] Unavailable Reason for Visit * Reason Comments Medication Refill Encounter Details Date Type Department Care Team (Late st Contact Info) Description 02/09/2022 Refill [facility] - Endocrinology - [place] [address] [place] [address] David Salmon MD [address] [address] Medication Refill Social History Tobacco [...] 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 No / Unsure 02/06/2022 3:43 PM IT HELP DESK ANALYST documented as of this encounter Miscellaneous Notes * Telephone Encounter - Yesi Leggett RN - 02/11/2022 8:37 AM IT HELP DESK ANALYST Requested Prescriptions Pending Prescriptions Disp Refills ??? TRUEplus 5-Bevel Pen Blanchard 32G X 4 MM Misc [Pharmacy Med Name: TRUEPLUS 5- BEVEL PEN NEEDLE [id number]] 100 Each 1 Sig: USE DAILY DIRECTED Next appt: 04/30/2022 HELP DESK ANALYST documented in this encounter Plan of Treatment Upcoming Encounters Date Type Department Care Team (Late st Contact Info) Description 11/17/2024 2:00 PM CDT Telemedicine [facility] [address] [place] [address] Alize Acosta, BOATBUILDER SUPERVISOR, PUTTY AND PATCH WORKER [address] [place] [address] 11/18/2024 3:45 PM CDT Office Visit [facility] - Endocrinology - [place] [address] [place] [address] David Salmon MD #[address] [address] 11/24/2024 2:40 PM CDT [facility] [address] [place] [address] 01/03/2025 11:30 AM CDT [facility] [place] [address] [place] [address] Rachelle Nava APRN, TOMBSTONE SETTER #[address] [place] [address] 03/04/2025 3:10 PM IT HELP DESK ANALYST [facility] [address] [address] Lab, [facility] 03/04/2025 3:30 PM IT HELP DESK ANALYST Office Visit [facility] - Primary Care - [place] [address] [place] [address] Tani Bigsg, PAC [address] [place] [address] 03/17/2025 1:30 PM IT HELP DESK ANALYST [facility] [address] [place] [address] Melony Asif, PAC [address] [place] [address] Discharge Disposition: Discharged to home or Selfcare 03/25/2025 1:20 PM IT HELP DESK ANALYST [facility] [address] [place] [address] Melony Asif Stacey, PAC [address] [place] [address] Discharge Disposition: Discharged to home or Selfcare 04/25/2025 2:00 PM IT HELP DESK ANALYST Office Visit [facility] - Cardiology - [place] [address] [place] [address] Laisha Griffin, DO [address] [address] 07/18/2025 1:00 PM CDT Office Visit [facility] - Pulmonology & Sleep Medicine - [place] [address] [place] [address] Dom Quiñonez MD #2 [place] [address] documented as of this encounter Goals Goal [...] as recommended. Depression Depression Improving( 2:27 PM IT HELP DESK ANALYST) No Breanne Saldana, BASEBALL WINDER Note: Goal/Objective: Decrease symptoms of depression associated [...] 19 04/18/2024 04/18/2024 04/18/2024 10:4 7 PM IT HELP DESK ANALYST Respiratory Rule-Out 05/06/2024 05/06/2024 025 9:20 AM IT HELP DESK ANALYST COVID - 19 05/06/2024 05/06/2024 05/06/2024 9:19 AM IT HELP DESK ANALYST Assessment Noted Time PHQ-9 Depression Total Score: 24 022 3:31 PM IT HELP DESK ANALYST documented as of this encounter Care Teams Parts Designer Relationship Specialty Start Date End Date Jackeline Dimas, BOATBUILDER SUPERVISOR, PUTTY AND PATCH WORKER [address] [place] [address] PCP - General Advanced Practice Nurse 07/31/17 Emilia Tang MD [address] [place] [address] PCP - General Family Medicine 06/07/22 03/25/23 Rebeka Trinidad MD [address] [place] [address] PCP - General Family Medicine 03/26/23 03/29/24 Lorri Leo APRN, PUTTY AND PATCH WORKER [address] [place] [address] PCP - General Certified Nurse Practitioner 03/30/24 04/20/24 Rebeka Trinidad MD [address] [place] [address] PCP - General Family Medicine 04/21/24 04/21/24 Lorri Leo APRN, PUTTY AND PATCH WORKER [address] [place] [address] PCP - General Certified Nurse Practitioner 04/22/24 05/30/24 Tani Biggs, PAC [address] [place] [address] PCP - General Physician Technical Testing Engineer 05/31/24 hPil Jacobo MD #2 [place] [address] Consulting Physician Neurology 03/07/21 Rajiv Mccormack, KELI [address] [place] [address] Nurse Practitioner Gastroenterology 03/07/21 Alize Acosta, BOATBUILDER SUPERVISOR, PUTTY AND PATCH WORKER [address] [place] [address] Virtual Advanced Care (VAC) PARTY DIRECTOR Advanced Practice Nurse 08/30/21 Dayo Chaney MD [address] [place] [address] Containers Sales Representative Cardiovascular Disease - Cardiology 09/20/21 02/12/24 Juanita Mercado, [place] Registered Nurse Cardiology 12/24/21 02/12/24 David Salmon MD #[address] [address] Consulting Physician Endocrinology 01/15/22 Maurilio Farley MD #[address] [address] Consulting Physician Colon and Rectal Surgery 09/20/22 PhysicianCandida MD [address] [place], [place] [address] Family Medicine 01/25/22 03/18/23 Dom Quiñonez MD #2 [facility] [place] [address] Consulting Physician Pulmonary Disease 11/19/21 Rachelle Nava, BOATBUILDER SUPERVISOR, TOMBSTONE SETTER #[address] [facility] [place] [address] Nurse Practitioner Advanced Practice Nurse 07/19/22 Irais Naylor, BOATBUILDER SUPERVISOR, PUTTY AND PATCH WORKER #2 [facility] [address] [place] [address] Nurse Practitioner Cardiology 06/27/23 07/29/24 Sharri Gaspar MD 2 [facility] MAILE [facility] [address] [place] [address] Consulting Physician Cardiology 04/26/24 Amber Aldrich APRN, PUTTY AND PATCH WORKER #[address] [place] [address] Nurse Practitioner Cardiology 07/30/24 documented as of this encounter
--- OUTSIDE RECORDS SUMMARY | 2024-11-16 13:25 | XMS_ITS | Encounter Summary ---
Author Organization [facility] Address [address] [place] [address] Phone Care Team Providers Care Black Top Raker Name Role Phone Jackeline Dimas PAYROLL EXAMINER, SYSTEMS ARCHITECTURE ANALYST Primary Care Provider Fiona Martinez PAINT FACTORY WORKER Unavailable Unavailab Phil Ellis MD Unavailable [phone] Rajiv Mccormack NP Unavailable Unavailable Renita Quezada RN Unavailable Unavailable Alize Acosta PAYROLL EXAMINER, SYSTEMS ARCHITECTURE ANALYST Unavailable +[phone] Dayo Chaney MD Unavailable Juanita Hauser RN Unavailable Unavaila David Martinez MD Unavailable Emilia Tang MD Primary Care Provider [phone] Maurilio Farley MD Unavailable Candida Turner MD Unavailable Rebeka Trinidad MD Primary Care Provider + [phone] Dom Quiñonez MD Unavailable Rachelle Nava PAYROLL EXAMINER, SPINNING FRAME CHANGER Unavailable + [phone] Irais Naylor PAYROLL EXAMINER, SYSTEMS ARCHITECTURE ANALYST Unavailable + [phone] AhmetAngélica morrismando Littlejohn PAYROLL EXAMINER, SYSTEMS ARCHITECTURE ANALYST Primary Care Provider [phone] Rebeka Trinidad MD Primary Care Provider [phone] Lorri Leo PAYROLL EXAMINER, SYSTEMS ARCHITECTURE ANALYST Primary Care Provider +[phone] Sharri Gaspar MD Unavailable Tani Biggs [facility] Primary Care Provider + [phone] Amber Aldrich PAYROLL EXAMINER, SYSTEMS ARCHITECTURE ANALYST Unavailable Reason for Visit * Reason Comments Medication Refill Encounter Details Date Type Department Care Team (Late st Contact Info) Description 09/25/2020 Refill [facility] - [facility] Care - [place] [address] [place] [address] Jackeline Dimas, PAYROLL EXAMINER, [facility] [address] [place] [address] Medication Refill Social History Tobacco [...] 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 on 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 Not [...] prescription was discontinued on 08/24/2020 by Jackeline Dimas, LINUX SUPPORT ENGINEER, SYSTEMS ARCHITECTURE ANALYST for the following reason: Alternate therapy documented in this encounter Plan of Treatment Upcoming Encounters Date Type Department Care Team (Late st Contact Info) Description 11/17/2024 2:00 PM CDT Telemedicine [facility] [address] [place] [address] Alize Acosta, PAYROLL EXAMINER, SYSTEMS ARCHITECTURE ANALYST [address] [place] [address] 11/18/2024 3:45 PM CDT [facility] - [facility] - [place] [address] [place] [address] David Salmon MD #[address] [address] 11/24/2024 2:40 PM CDT Telemedicine [facility] [address] [place] [address] 01/03/2025 11:30 AM CDT Office Visit [facility] - Neurology - [place] [address] [place] [address] Rachelle Nava APRN, SPINNING FRAME CHANGER [address] [place] [address] 03/04/2025 3:[address] [facility] [place] [address] [facility] 03/04/2025 3:30 PM STEAMFITTER Office Visit [facility] Primary [facility] [place] [address] Tani Biggs, [facility] [address] [place] [address] 03/17/2025 1:30 PM STEAMFITTER [facility] [address] [place] [address] Asif, Melony Stacey, [facility] [address] [place] [address] Discharge Disposition: Discharged to home or Selfcare 03/25/2025 1:20 PM STEAMFITTER Office Visit [facility] Oncology Services [address] [place] [address] Melony Asif Stacey, [facility] [address] [place] [address] Discharge Disposition: Discharged to home or Selfcare 04/25/2025 2:00 PM STEAMFITTER [facility] - [place] [address] [place] [address] Laisha Griffin, DO [address] [address] 07/18/2025 1:00 PM CDT [facility] - [place] [address] [place] [address] Dom Quiñonez MD #[address] [place] [address] documented as of this encounter Visit Diagnoses Diagnosis Hypertension, essential Unspecified essential hypertension documented in this encounter Additional Health Concerns Infection Onset Date Last Indicated Resolved Time COVID - 19 01/08/2021 01/08/2021 01/28/2021 12:1 6 AM STEAMFITTER COVID - 19 03/12/2021 03/12/2021 04/01/2021 12:1 6 AM STEAMFITTER COVID - 19 12/15/2021 12/15/2021 12/15/2021 7:26 PM CDT COVID - 19 Confirmed 12/15/2021 12/15/2021 022 12:16 AM CDT COVID - 19 04/18/2024 04/18/2024 04/18/2024 10:4 7 PM STEAMFITTER Respiratory Rule-Out 05/06/2024 05/06/2024 025 9:20 AM STEAMFITTER COVID - 19 05/06/2024 05/06/2024 05/06/2024 9:19 AM STEAMFITTER Assessment Noted Time PHQ-9 Depression Total Score: 0 09/01/19 11:58 AM CDT documented as of this encounter Care Teams Black Top Raker Relationship Specialty Start Date End Date Jackeline Dimas PAYROLL EXAMINER, SYSTEMS ARCHITECTURE ANALYST [address] [place] [address] PCP - General Advanced Practice Nurse 07/31/17 Emilia Tang MD [address] [place] [address] PCP - General Family Medicine 06/07/22 03/25/23 Rebeka Trinidad MD [address] [place] [address] PCP - General Family Medicine 03/26/23 03/29/24 Lorri Leo APRN, SYSTEMS ARCHITECTURE ANALYST [address] [place] [address] PCP - General Certified Nurse Practitioner 03/30/24 04/20/24 Rebeka Trinidad MD [address] [place] [address] PCP - General Family Medicine 04/21/24 04/21/24 Lorri Leo, PAYROLL EXAMINER, SYSTEMS ARCHITECTURE ANALYST [address] [place], [place] [address] PCP - General Certified Nurse Practitioner 04/22/24 05/30/24 Tani Biggs, PAC [address] [place] [address] PCP - General Physician Cushion Padder 05/31/24 Fiona Martinez, [place] Methods And Procedures Analyst 03/01/21 08/23/21 Phil Jacobo MD #[address] [place] [address] Consulting Physician Neurology 03/07/21 Rajiv Mccormack, KELI [address] [place] [address] Nurse Practitioner Gastroenterology 03/07/21 Renita Quezada, RN [place] Methods And Procedures Analyst 05/09/21 08/23/21 Alize Acotsa APRN, SYSTEMS ARCHITECTURE ANALYST [address] [place] [address] Virtual Advanced Care (VAC) LINUX SUPPORT ENGINEER Advanced Practice Nurse 08/30/21 Dayo Chaney MD [address] [place] [address] Coin Machine Supervisor Cardiovascular Disease - Cardiology 09/20/21 02/12/24 Juanita Mercado, RN [place] Registered Nurse Cardiology 12/24/21 02/12/24 David Salmon MD #[address] [address] Consulting Physician Endocrinology 01/15/22 Maurilio Farley MD #2 [facility] [address] [address] Consulting Physician Colon and Rectal Surgery 09/20/22 Physician, Candida Davis MD [address] [place] [address] Family Medicine 01/25/22 03/18/23 Dom Quiñonez MD #2 [place] [address] Consulting Physician Pulmonary Disease 11/19/21 Rachelle Nava, PAYROLL EXAMINER, SPINNING FRAME CHANGER #[address] [place] [address] Nurse Practitioner Advanced Practice Nurse 07/19/22 Irais Naylor, PAYROLL EXAMINER, SYSTEMS ARCHITECTURE ANALYST #2 [facility] MAILENiko [address] [address] Nurse Practitioner Cardiology 06/27/23 07/29/24 Sharri Gaspar MD 2 [facility] MAILE [address] [address] Consulting Physician Cardiology 04/26/24 Amber Aldrich, PAYROLL EXAMINER, SYSTEMS ARCHITECTURE ANALYST #[address] [place] [address] Nurse Practitioner Cardiology 07/30/24 documented as of this encounter
--- OUTSIDE RECORDS SUMMARY | 2024-11-16 13:25 | XMS_ITS | Encounter Summary ---
Author Organization [facility] Address [address] [place] [address] Phone Care Team Providers Care Heat Treatment Technician Name Role Phone Phil Jacobo MD Unavailable [phone] Rajiv Mccormack NP Unavailable Unavailable Alize Acosta APRN, PULMONARY CARE NURSE Unavailable Dayo Chaney MD Unavailable Juanita Hauser RN Unavailable UnavailDavid Alexandre MD Unavailable Maurilio Farley MD Unavailable Rebeka Trinidad MD Primary Care Provider + [phone] Dom Quiñonez MD Unavailable Rachelle Nava SUPERVISOR CARBON ELECTRODES, VERIFYING MACHINE OPERATOR Unavailable + [phone] Irais Naylor SUPERVISOR CARBON ELECTRODES, PULMONARY CARE NURSE Unavailable + [phone] Lorri Leo SUPERVISOR CARBON ELECTRODES, PULMONARY CARE NURSE Primary Care Provider + [phone] Rebeka Trinidad MD Primary Care Provider + [phone] Lorri Leo SUPERVISOR CARBON ELECTRODES, PULMONARY CARE NURSE Primary Care Provider + [phone] Sharri Gaspar MD Unavailable Tani Biggs [facility] Primary Care Provider + [phone] Amber Aldrich APRN, CNP Unavailable Reason for Visit * Reason Comments Medication Refill Encounter Details Date Type Department Care Team (Late st Contact Info) Description 07/18/2023 Refill [facility] - Primary Care - [place] [address] [place] [address] Rebeka Trinidad MD [address] [place] [address] Medication Refill Social History Tobacco Use Types Packs/Day Years Used Date Smoking Tobacco: Former Cigarettes 1 37.1 1 985 - 04/12/2021 Smokeless Tobacco: Never Alcohol Use Standard Drinks/Week Comments Not Currently 0 (1 standard drink = 0.6 oz pur e alcohol) last drank 2020 [facility] Utilities Answer Date Recorded In the past 12 months has [employer] electric, gas, oil, or water [employer] threatened to shut off services in your home? No 03/24/2023 Social Connection and Isolation Panel Answer Date Recorded In a typical week, how many times do you talk on the phone with family, friends, or neighbors? Once a week 03/24/2023 How often do you get togethe r with friends or relatives? Never 03/24/2023 How often do you attend [facility] or hindu services? 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 [...] CDT Telemedicine [facility] [address] [place] [address] Alize Acosta, SUPERVISOR CARBON ELECTRODES, PULMONARY CARE NURSE [address] [place] [address] 11/18/2024 3:45 PM CDT [facility] - Endocrinology - [place] [address] [place] [address] David Salmon MD #[address] [address] 11/24/2024 2:40 PM CDT Telemedicine [facility] [address] [place] [address] 01/03/2025 11:30 AM CDT Office Visit [facility] - Neurology - [place] [address] [place] [address] Rachelle Nava APRN, VERIFYING MACHINE OPERATOR [address] [place] [address] 03/04/2025 3:10 PM TRANSLATOR/INTERPRETER [facility] - [place] [address] [place] [address] [place] [facility] 03/04/2025 3:30 PM TRANSLATOR/INTERPRETER [facility] [place] [address] [place] [address] Tani Biggs, [facility] [address] [place] [address] 03/17/2025 1:30 PM TRANSLATOR/INTERPRETER Lab [facility] Oncology Services [address] [place] [address] Melony Asif, PAC [address] [place] [address] Discharge Disposition: Discharged to home or Selfcare 03/25/2025 1:20 PM TRANSLATOR/INTERPRETER Office Visit [facility] Oncology Services [address] [place] [address] Melony Asif, [facility] [address] [place] [address] Discharge Disposition: Discharged to home or Selfcare 04/25/2025 2:00 PM TRANSLATOR/INTERPRETER Office Visit [facility] - Cardiology - [place] [address] [place] [address] Laisha Griffin DO [address] [address] 07/18/2025 1:00 PM CDT Office Visit [facility] - Pulmonology & Sleep Medicine - [place] [address] [place] [address] Dom Quiñonez MD [address] [place] [address] documented as of this encounter Goals Goal Patient Goal Type Associated Problems Recent Progress Patient-Stated? Author ACTIVITY Activity No change(08/08 2:42 PM CDT) Yes Maritza Vanegas, RN Note: Bonny will walk five days a week. Goal Reviewed with: Bonny Readiness to change: Department associated with goal: [facility] ADVANCED CARE Steps to achieve goal: Walking 5 days a week I want to be able to be around people and feel less depressed. Behavioral Health Worsening(0 09/22/2023 3:12 PM CDT) Yes Hilda Tinajero [facility] Note: Goal/Objective: Decrease symptoms of depression and anxiety. Anticipated Time Frame for Goal Completion: 3 months Goal Reviewed with: patient Readiness to change: Thinking about making a change Department associated with goal: [facility] BE[facility]AVIORAL HEALTH SERVICES Steps to [...] diet Depression Depression Improving(0 03/15/2022 2:27 PM TRANSLATOR/INTERPRETER) No Breanne Saldana LCSW Note: Goal/Objective: Decrease [...] Improving(0 08/16/2024 1:04 PM CDT) No Meli Rosnethal, RN Note: Goal: monitor vitals 3 times [...] 19 04/18/2024 04/18/2024 04/18/2024 10:4 7 PM TRANSLATOR/INTERPRETER Respiratory Rule-Out 05/06/2024 05/06/2024 025 9:20 AM TRANSLATOR/INTERPRETER COVID - 19 05/06/2024 05/06/2024 05/06/2024 9:19 AM TRANSLATOR/INTERPRETER Assessment Noted Time PHQ-9 Depression Total Score: 18 023 9:24 AM CDT documented as of this encounter Care Teams Heat Treatment Technician Relationship Specialty Start Date End Date Rebeka Trinidad MD [address] [place] [address] PCP - General Family Medicine 03/26/23 03/29/24 Lorri Leo APRN, PULMONARY CARE NURSE [address] [place] [address] PCP - General Certified Nurse Practitioner 03/30/24 04/20/24 Rebeka Trinidad MD [address] [place], [place] [address] PCP - General Family Medicine 04/21/24 04/21/24 Lorri Leo APRN, PULMONARY CARE NURSE [address] [place], [place] [address] PCP - General Certified Nurse Practitioner 04/22/24 05/30/24 Tani Biggs, PAC [address] [place] [address] PCP - General Physician Foreign Banknote Teller 05/31/24 Phil Jacobo MD [address] [place] [address] Consulting Physician Neurology 03/07/21 Rajiv Mccormack, KELI [address] [place] [address] Nurse Practitioner Gastroenterology 03/07/21 Alize Acosta, RUSSELL, PULMONARY CARE NURSE [address] [place], [place] [address] Virtual Advanced Care (VAC) CHILD NEUROLOGIST Advanced Practice Nurse 08/30/21 Dayo Chaney MD [address] [place] [address] Odd Job Laborer Cardiovascular Disease - Cardiology 09/20/21 02/12/24 Juanita Mercado, [place] Registered Nurse Cardiology 12/24/21 02/12/24 David Salmon MD #[address] [address] Consulting Physician Endocrinology 01/15/22 Maurilio Farley MD #[address] [address] Consulting Physician Colon and Rectal Surgery 09/20/22 Dom Quiñonez MD #[address] [place] [address] Consulting Physician Pulmonary Disease 11/19/21 Rachelle Nava SUPERVISOR CARBON ELECTRODES, VERIFYING MACHINE OPERATOR #[address] [place] [address] Nurse Practitioner Advanced Practice Nurse 07/19/22 Irais Naylor SUPERVISOR CARBON ELECTRODES, PULMONARY CARE NURSE #[address] [address] Nurse Practitioner Cardiology 06/27/23 07/29/24 Sharri Gaspar MD 2 [facility] MAILE [address] [address] Consulting Physician Cardiology 04/26/24 Amber Aldrich APRN, PULMONARY CARE NURSE [address] [place] [address] Nurse Practitioner Cardiology 07/30/24 documented as of this encounter
--- OUTSIDE RECORDS SUMMARY | 2024-11-16 13:25 | XMS_ITS | Encounter Summary ---
Author Organization [facility] Address [address] [place] [address] Phone Care Team Providers Care Hydraulic Miner Name Role Phone Jackeline Dimas MANAGER GARDEN, DRY WALL PLASTERER Primary Care Provider Phil Jacobo MD Unavailable [phone] Rajiv Mccormack NP Unavailable Unavailable Alize Acosta MANAGER GARDEN, DRY WALL PLASTERER Unavailable [phone] Dayo Chaney MD Unavailable Juanita Hauser RN Unavailable UnavailDavid Alexandre MD Unavailable Emilia Tang MD Primary Care Provider [phone] Maurilio Farley MD Unavailable Physician, Candida Davis MD Unavailable Rebeka Trinidad MD Primary Care Provider + [phone] Dom Quiñonez MD Unavailable Rachelle Nava MANAGER GARDEN, FOUNTAIN ROLLER ASSEMBLER Unavailable + [phone] Irais Naylor MANAGER GARDEN, DRY WALL PLASTERER Unavailable + [phone] Lorri Leo MANAGER GARDEN, DRY WALL PLASTERER Primary Care Provider [phone] Rebeka Trinidad MD Primary Care Provider + [phone] AhmetLorri Annetta MANAGER GARDEN, [facility] Primary Care Provider + [phone] Sharri Gaspar MD Unavailable Tani Biggs [facility] Primary Care Provider [phone] Amber Aldrich MANAGER GARDEN, [facility] Unavailable Reason for Visit * Reason Comments Medication Refill Encounter Details Date Type Department Care Team (Late st Contact Info) Description 01/13/2022 Refill [facility] - Primary Care - [place] [address] [place] [address] Jackeline Dimas MANAGER GARDEN, [facility] [address] [place] [address] Medication Refill Social History Tobacco [...] 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 Unable to assess 01/16/2022 3:15 PM TAKE OUT WAITER documented as of this encounter Miscellaneous Notes * Telephone Encounter - Elizabeth Cabrales RN - 01/14/2022 10:14 AM CST Medication was discontinued on 11/13/21 OUT WAITER documented in this encounter Plan of Treatment Upcoming Encounters Date Type Department Care Team (Late st Contact Info) Description 11/17/2024 2:00 PM CDT Telemedicine [facility] [address] [place] [address] Alize Acosta, MANAGER GARDEN, DRY WALL PLASTERER [address] [place] [address] 11/18/2024 3:45 PM CDT Office Visit [facility] Medical Group - Endocrinology - [place] [address] [place] [phone] David Salmon MD #[address] [phone] 11/24/2024 2:40 PM CDT Telemedicine [facility] [address] [place] [address] 01/03/2025 11:30 AM CDT [facility] [place] [address] [place] [address] Rachelle Nava, MANAGER GARDEN, FOUNTAIN ROLLER ASSEMBLER [address] [place] [address] 03/04/2025 3:10 PM TAKE OUT WAITER Lab [facility] - Primary Care - [place] [address] [place] [address] [facility] 03/04/2025 3:30 PM TAKE OUT WAITER [facility] [place] [address] [place] [address] Tani Biggs PAC [address] [place] [address] 03/17/2025 1:30 PM TAKE OUT WAITER [facility] [address] [place] [address] Melony Asif August, PAC [address] [place] [address] Discharge Disposition: Discharged to home or Selfcare 03/25/2025 1:20 PM TAKE OUT WAITER Office Visit [facility] Oncology Services [address] [place] [address] AsifMelony August, PAC [address] [place] [address] Discharge Disposition: Discharged to home or Selfcare 04/25/2025 2:00 PM TAKE OUT WAITER Office Visit [facility] Medical [facility] - Cardiology - [place] [address] [place] [address] Laisha Griffin, DO [address] [address] 07/18/2025 1:00 PM CDT Office Visit [facility] - Pulmonology & Sleep Medicine [facility] [address] [place] [address] Dom Quiñonez MD [address] [place] [address] documented as of this encounter Goals Goal [...] as recommended. Depression Depression Improving( 2:27 PM TAKE OUT WAITER) No Breanne Saldana LCSW Note: Goal/Objective: Decrease [...] 19 04/18/2024 04/18/2024 04/18/2024 10:4 7 PM TAKE OUT WAITER Respiratory Rule-Out 05/06/2024 05/06/2024 025 9:20 AM TAKE OUT WAITER COVID - 19 05/06/2024 05/06/2024 05/06/2024 9:19 AM TAKE OUT WAITER Assessment Noted Time PHQ-9 Depression Total Score: 0 09/01/19 20 11:58 AM CDT documented as of this encounter Care Teams Hydraulic Miner Relationship Specialty Start Date End Date Jackeline Dimas APRN, DRY WALL PLASTERER [address] [place] [address] PCP - General Advanced Practice Nurse 07/31/17 Emilia Tang MD [address] [place] [address] PCP - General Family Medicine 06/07/22 03/25/23 Rebeka Trinidad MD [address] [place] [address] PCP - General Family Medicine 03/26/23 03/29/24 Lorri Leo APRN, DRY WALL PLASTERER [address] [place] [address] PCP - General Certified Nurse Practitioner 03/30/24 04/20/24 Rebeka Trinidad MD [address] [place] [address] PCP - General Family Medicine 04/21/24 04/21/24 Lorri Leo APRN, DRY WALL PLASTERER [address] [place] [address] PCP - General Certified Nurse Practitioner 04/22/24 05/30/24 Tnai Biggs, PAC [address] [place] [address] PCP - General Physician Long Wall Shear Operator 05/31/24 Phil Jacobo MD [address] [place] [address] Consulting Physician Neurology 03/07/21 Rajiv Mccormack, KELI [address] [place] [address] Nurse Practitioner Gastroenterology 03/07/21 Alize Acosta, MANAGER GARDEN, DRY WALL PLASTERER [address] [place] [address] Virtual [facility] (VAC) MANAGER CULTURE Advanced Practice Nurse 08/30/21 Dayo Chaney MD [address] [place] [address] Floor Polisher Cardiovascular Disease - Cardiology 09/20/21 02/12/24 Juanita Mercado RN [place] Registered Nurse Cardiology 12/24/21 02/12/24 David Salmon MD #[address] [phone] Consulting Physician Endocrinology 01/15/22 Maurilio Farley MD #[address] [address] Consulting Physician Colon and Rectal Surgery 09/20/22 Physician, Candida Davis MD [address] [place] [address] Family Medicine 01/25/22 03/18/23 Dom Quiñonez MD [address] [place] [address] Consulting Physician Pulmonary Disease 11/19/21 Rachelle Nava APRN, FOUNTAIN ROLLER ASSEMBLER [address] [place] [address] Nurse Practitioner Advanced Practice Nurse 07/19/22 Irais Naylor APRN, DRY WALL PLASTERER #2 [facility] [address] [place] [address] Nurse Practitioner Cardiology 06/27/23 07/29/24 Sharri Gaspar MD 2 [facility] [place] [facility] [address] [place] [address] Consulting Physician Cardiology 04/26/24 Amber Aldrich APRN, DRY WALL PLASTERER [address] [place] [address] Nurse Practitioner Cardiology 07/30/24 documented as of this encounter
--- OUTSIDE RECORDS SUMMARY | 2024-11-16 13:25 | XMS_ITS | Encounter Summary ---
Author Organization [facility] Address [address] [place] [address] Phone Care Team Providers Care Desktop Architect Name Role Phone Phil Jacobo MD Unavailable [phone] Rajiv Mccormack NP Unavailable Unavailable Alize Acosta APRN, SUPERVISOR LABORATORY Unavailable [phone] Dayo Chaney MD Unavailable Juanita Hauser RN Unavailable UnavailDavid Alexandre MD Unavailable Maurilio Farley MD Unavailable Rebeka Trinidad MD Primary Care Provider + [phone] Dom Quiñonez MD Unavailable Rachelle Nava COMMERCIAL REAL ESTATE SALES MANAGER, MUTUAL FUND SALES AGENT Unavailable + [phone] Irais Naylor COMMERCIAL REAL ESTATE SALES MANAGER, SUPERVISOR LABORATORY Unavailable + [phone] Lorri Leo COMMERCIAL REAL ESTATE SALES MANAGER, SUPERVISOR LABORATORY Primary Care Provider + [phone] Rebeka Trinidad MD Primary Care Provider + [phone] Lorri Leo COMMERCIAL REAL ESTATE SALES MANAGER, SUPERVISOR LABORATORY Primary Care Provider + [phone] Sharri Gaspar MD Unavailable Tani Biggs PAC Primary Care Provider + [phone] Amber Aldrich APRN, SUPERVISOR LABORATORY Unavailable Reason for Visit * Reason Comments Medication Refill Encounter Details Date Type Department Care Team (Late st Contact Info) Description 06/23/2023 Refill [facility] [address] [place] [address] Belkis Mcnair APRN, SUPERVISOR LABORATORY [address] [place] [address] Medication Refill Social History Tobacco Use Types Packs/Day Years Used Date Smoking Tobacco: Former Cigarettes 1 37.1 1 985 - 04/12/2021 Smokeless Tobacco: Never Alcohol Use Standard Drinks/Week Comments Not Currently 0 (1 standard drink = 0.6 oz pur e alcohol) last drank 2020 [facility] Utilities Answer Date Recorded In the past 12 months has [employer] electric, gas, oil, or water deltamethod threatened to shut off services in your home? No 03/24/2023 Social Connection and Isolation Panel Answer Date Recorded In a typical week, how many times do you talk on the phone with family, friends, or neighbors? Once a week 03/24/2023 How often do you get togethe r with friends or relatives? Never 03/24/2023 How often do you attend [facility] or pentecostalism services? More than 4 times per year 03/24/2023 Do you belong to any clubs o r organizations such as moravian groups, unions, fraternal or athletic groups, or [...] Total Score - Questions 1-9 18 10/[address] 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.] Advanced Care 08/25/23 Appointment Alize Acosta APRN, SUPERVISOR LABORATORY [facility] 09/01/23 Appointment ONCALL ADVANCED CARE NURSE [facility] 09/08/23 Appointment ONCALL ADVANCED CARE NURSE [facility] 09/15/23 Appointment ONCALL ADVANCED CARE NURSE [facility] Advanced Care Showing future appointments within next 90 days and meeting all other requirements documented in this encounter Plan of Treatment Upcoming Encounters Date Type Department Care Team (Late st Contact Info) Description 11/17/2024 2:00 PM CDT Telemedicine [facility] [address] [place] [address] Alize Acosta APRN, SUPERVISOR LABORATORY [address] [place] [address] 11/18/2024 3:45 PM CDT Office Visit [facility] Group - Endocrinology - [place] [address] [place] [address] David Salmon MD #[address] [address] 11/24/2024 2:40 PM CDT Telemedicine [facility] [address] [place] [address] 01/03/2025 11:30 AM CDT [facility] - [place] [address] [place] [address] Rachelle Nava, COMMERCIAL REAL ESTATE SALES MANAGER, MUTUAL FUND SALES AGENT [address] [place] [address] 03/04/2025 3:10 PM CHANNEL PROCESS PLANT OPERATOR Lab [facility] - [place] [address] [place] [address] [facility] [place] [facility] 03/04/2025 3:30 PM CHANNEL PROCESS PLANT OPERATOR Office Visit [facility] - [place] [address] [place] [address] Tani Biggs, [facility] [address] [place] [address] 03/17/2025 1:30 PM CHANNEL PROCESS PLANT OPERATOR Lab [facility] Oncology Services [address] [place] [address] Melony Asif Stacey, PAC [address] [place] [address] Discharge Disposition: Discharged to home or Selfcare 03/25/2025 1:20 PM CHANNEL PROCESS PLANT OPERATOR Office Visit [facility] Oncology Services [address] [place] [address] Melony Asif Stacey, [facility] [address] [place] [address] Discharge Disposition: Discharged to home or Selfcare 04/25/2025 2:00 PM CHANNEL PROCESS PLANT OPERATOR Office Visit [facility] Cardiology [facility] [address] [place] [address] Laisha Griffin, DO [address] [address] 07/18/2025 1:00 PM CDT Office Visit [facility] Medical Group - Pulmonology & Sleep Medicine [facility] [address] [place] [address] Dom Quiñonez MD [address] [place] [address] documented as of this encounter Goals Goal Patient Goal Type Associated Problems Recent Progress Patient-Stated? Author ACTIVITY Activity No change(08/08 2:42 PM CDT) Yes Maritza Vanegas, RN Note: Bonny will walk five days a week. Goal Reviewed with: Bonny Readiness to change: Department associated with goal: [facility] ADVANCED CARE Steps to achieve goal: Walking 5 days a week I want to be able to be around people and feel less depressed. Behavioral Health Worsening(0 09/22/2023 3:12 PM CDT) Yes Hilda Tinajero [facility] Note: Goal/Objective: Decrease symptoms of depression and anxiety. Anticipated Time Frame for Goal Completion: 3 months Goal Reviewed with: patient Readiness to change: Thinking about making a change Department associated with goal: [facility] Steps to achieve [...] diet Depression Depression Improving(0 03/15/2022 2:27 PM CHANNEL PROCESS PLANT OPERATOR) No Breanne Saldana, PHYSICIAN SPECIALIST Note: Goal/Objective: Decrease symptoms of depression associated [...] 19 04/18/2024 04/18/2024 04/18/2024 10:4 7 PM CHANNEL PROCESS PLANT OPERATOR Respiratory Rule-Out 05/06/2024 05/06/2024 025 9:20 AM CHANNEL PROCESS PLANT OPERATOR COVID - 19 05/06/2024 05/06/2024 05/06/2024 9:19 AM CHANNEL PROCESS PLANT OPERATOR Assessment Noted Time PHQ-9 Depression Total Score: 18 023 9:24 AM CDT documented as of this encounter Care Teams Desktop Architect Relationship Specialty Start Date End Date Rebeka Trinidad MD [address] [place] [address] PCP - General Family Medicine 03/26/23 03/29/24 Lorri Leo COMMERCIAL REAL ESTATE SALES MANAGER, SUPERVISOR LABORATORY [address] [place] [address] PCP - General Certified Nurse Practitioner 03/30/24 04/20/24 Rebeka Trinidad MD [address] [place], [place] [id number] PCP - General Family Medicine 04/21/24 04/21/24 Lorri Leo APRN, SUPERVISOR LABORATORY [address] [place] [place], [place] [id number] PCP - General Certified Nurse Practitioner 04/22/24 05/30/24 Tani Biggs PAC [address] [place] [address] PCP - General Physician Ornamental Metal Worker Helper 05/31/24 Phil Jacobo MD [address] [place] [address] Consulting Physician Neurology 03/07/21 Rajiv Mccormack, KELI [address] [place] [address] Nurse Practitioner Gastroenterology 03/07/21 Alize Acosta APRN, SUPERVISOR LABORATORY [address] [place] [address] Virtual Advanced Care (VAC) FISH AND GAME CLUB MANAGER Advanced Practice Nurse 08/30/21 Dayo Chaney MD [address] [place] [address] Dairy Processing Supervisor Cardiovascular Disease - Cardiology 09/20/21 02/12/24 Juanita Mercado RN [place] Registered Nurse Cardiology 12/24/21 02/12/24 David Salmon MD #[address] [address] Consulting Physician Endocrinology 01/15/22 Maurilio Farley MD #[address] [address] Consulting Physician Colon and Rectal Surgery 09/20/22 Dom Quiñonez MD [address] [place] [address] Consulting Physician Pulmonary Disease 11/19/21 Rachelle Nava, COMMERCIAL REAL ESTATE SALES MANAGER, MUTUAL FUND SALES AGENT [address] [place] [address] Nurse Practitioner Advanced Practice Nurse 07/19/22 Irais Naylor COMMERCIAL REAL ESTATE SALES MANAGER, SUPERVISOR LABORATORY #[address] [address] Nurse Practitioner Cardiology 06/27/23 07/29/24 Sharri Gaspar MD [address] [address] Consulting Physician Cardiology 04/26/24 Amber Aldrich APRN, SUPERVISOR LABORATORY [address] [place] [address] Nurse Practitioner Cardiology 07/30/24 documented as of this encounter
--- OUTSIDE RECORDS SUMMARY | 2024-11-16 13:25 | XMS_ITS | Encounter Summary ---
Author Organization [facility] Address [address] [place] [address] Phone Care Team Providers Care New Car Get Ready Mechanic Name Role Phone Phil Jacobo MD Unavailable [phone] Rajiv Mccormack NP Unavailable Unavailable Alize Acosta APRN, BAG END SEWER Unavailable [phone] Dayo Chaney MD Unavailable Juanita Hauser RN Unavailable UnavailDavid Alexandre MD Unavailable Maurilio Farley MD Unavailable Rebeka Trinidad MD Primary Care Provider + [phone] Dom Quiñonez MD Unavailable Rachelle Nava ALMOND BLANCHER HAND, DEPARTMENT SALES MANAGER Unavailable + [phone] Irais Naylor ALMOND BLANCHER HAND, BAG END SEWER Unavailable + [phone] Lorri Leo ALMOND BLANCHER HAND, BAG END SEWER Primary Care Provider + [phone] Rebeka Trinidad MD Primary Care Provider + [phone] Lorri Leo ALMOND BLANCHER HAND, BAG END SEWER Primary Care Provider + [phone] Sharri Gaspar MD Unavailable Tani Biggs [facility] Primary Care Provider + [phone] Amber Aldrich APRN, CNP Unavailable Reason for Visit * Reason Comments Medication Refill Encounter Details Date Type Department Care Team (Late st Contact Info) Description 07/18/2023 Refill [facility] - Primary Care - [place] [address] [place] [address] Emilia Tang MD [address] [place] [address] Medication Refill Social History Tobacco Use Types Packs/Day Years Used Date Smoking Tobacco: Former Cigarettes 1 37.1 1 985 - 04/12/2021 Smokeless Tobacco: Never Alcohol Use Standard Drinks/Week Comments Not Currently 0 (1 standard drink = 0.6 oz pur e alcohol) last drank 2020 [facility] Utilities Answer Date Recorded In the past 12 months has [employer] electric, gas, oil, or water company threatened [...] Never 03/24/2023 How often do you attend [facility] or spiritism services? More than 4 times per year 03/24/2023 Do you belong to any clubs o r organizations such as jainism groups, unions, fraternal or athletic groups, or [...] Score - Questions 1-9 18 08/ 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 on file Not on file documented as of this encounter Plan of Treatment Upcoming Encounters Date Type Department Care Team (Late st Contact Info) Description 11/17/2024 2:00 PM CDT Telemedicine [facility] [address] [place] [address] Alize Acosta, ALMOND BLANCHER HAND, BAG END SEWER [address] [place] [address] 11/18/2024 3:45 PM CDT Office Visit [facility] - Endocrinology - [place] [address] [place] [address] David Salmon MD #[address] [address] 11/24/2024 2:40 PM CDT Telemedicine [facility] [address] [place] [address] 01/03/2025 11:30 AM CDT Office Visit [facility] - Neurology - [place] [address] [place] [address] Rachelle Nava APRN, DEPARTMENT SALES MANAGER [address] [place] [address] 03/04/2025 3:10 PM K9 HANDLER Lab [facility] - Primary Care - [address] [phone] [facility], [facility] 03/04/2025 3:30 PM K9 HANDLER Office Visit [facility] - Primary Care - [place] [address] [place] [address] Tani Biggs, PAC [address] [place] [address] 03/17/2025 1:30 PM K9 HANDLER [facility] [address] [place] [address] Melony Asif, PAC [address] [place] [address] Discharge Disposition: Discharged to home or Selfcare 03/25/2025 1:20 PM K9 HANDLER [facility] [address] [place] [address] Melony Asif Stacey, PAC [address] [place] [address] Discharge Disposition: Discharged to home or Selfcare 04/25/2025 2:00 PM K9 HANDLER Office Visit [facility] - Cardiology - [place] [address] [place] [address] Laisha Griffin, DO [address] [address] 07/18/2025 1:00 PM CDT Office Visit [facility] - Pulmonology & Sleep Medicine - [place] [address] [place] [address] Dom Quiñonez MD #2 [place] [address] documented as of this encounter Goals Goal Patient Goal Type Associated Problems Recent Progress Patient-Stated? Author ACTIVITY Activity No change(08/08 2:42 PM CDT) Yes Maritza Vanegas, RN Note: Bonny will walk five days a week. Goal Reviewed with: Bonny Readiness to change: Department associated with goal: [facility] ADV[facility]ED [facility] Steps to achieve goal: Walking 5 days a week I want to be able to be around people and feel less depressed. Behavioral Health Worsening(0 09/22/2023 3:12 PM CDT) Yes Hilda Tinajero [facility] Note: Goal/Objective: Decrease symptoms of depression and anxiety. Anticipated Time Frame for Goal Completion: 3 months Goal Reviewed with: patient Readiness to change: Thinking about making a change Department associated with goal: [facility] SERVICES Steps [...] diet Depression Depression Improving(0 03/15/2022 2:27 PM K9 HANDLER) No Breanne Saldana, BALLAST REGULATOR OPERATOR Note: Goal/Objective: Decrease symptoms of depression [...] 19 04/18/2024 04/18/2024 04/18/2024 10:4 7 PM K9 HANDLER Respiratory Rule-Out 05/06/2024 05/06/2024 025 9:20 AM K9 HANDLER COVID - 05/06/2024 05/06/2024 05/06/2024 9:19 AM K9 HANDLER Assessment Noted Time PHQ-9 Depression Total Score: 18 023 9:24 AM CDT documented as of this encounter Care Teams New Car Get Ready Mechanic Relationship Specialty Start Date End Date Rebeka Trinidad MD [address] [place] [address] PCP - General Family Medicine 03/26/23 03/29/24 Lorri Leo APRN, BAG END SEWER [address] [place] [address] PCP - General Certified Nurse Practitioner 03/30/24 04/20/24 Rebeka Trinidad MD [address] [place] [address] PCP - General Family Medicine 04/21/24 04/21/24 Lorri Leo APRN, BAG END SEWER [address] [place] [id number] PCP - General Certified Nurse Practitioner 04/22/24 05/30/24 Tani Biggs, PAC [address] [place] [address] PCP - General Physician Radiation Engineer 05/31/24 Phil Jacobo MD #[address] [place] [address] Consulting Physician Neurology 03/07/21 Rajiv Mccormack, KLEI [address] [place] [address] Nurse Practitioner Gastroenterology 03/07/21 Alize Acosta APRN, BAG END SEWER [address] [place] [address] Virtual [facility] (VAC) IN STORE MARKETING REPRESENTATIVE Advanced Practice Nurse 08/30/21 Dayo Chaney MD [facility] [place] [address] [place] Cardiovascular Disease - Cardiology 09/20/21 02/12/24 Juanita Mercado RN [place] Registered Nurse Cardiology 12/24/21 02/12/24 David Salmon MD #[address] [address] Consulting Physician Endocrinology 01/15/22 Maurilio Farley MD #[address] [address] Consulting Physician Colon and Rectal Surgery 09/20/22 Dom Quiñonez MD #2 [place] [address] Consulting Physician Pulmonary Disease 11/19/21 Rachelle Nava, ALMOND BLANCHER HAND, DEPARTMENT SALES MANAGER #[address] [place] [address] Nurse Practitioner Advanced Practice Nurse 07/19/22 Irais Naylor, ALMOND BLANCHER HAND, BAG END SEWER #2 [facility], [facility] [address] [place] [address] Nurse Practitioner Cardiology 06/27/23 07/29/24 Sharri Gaspar MD 2 [facility] [place] [facility] [place] [address] [place] [address] Consulting Physician Cardiology 04/26/24 Amber Aldrich, ALMOND BLANCHER HAND, BAG END SEWER [address] [place] [address] Nurse Practitioner Cardiology 07/30/24 documented as of this encounter
--- OUTSIDE RECORDS SUMMARY | 2024-11-16 13:25 | XMS_ITS | Encounter Summary ---
Author Organization [facility] Address [address] [place] [address] Phone Care Team Providers Care Wind Operations Manager Name Role Phone Jackeline Dimas STORM WINDOW INSTALLER, NEEDLE MAKER Primary Care Provider Phil Jacobo MD Unavailable [phone] Rajiv Mccormack NP Unavailable Unavailable Alize cAosta STORM WINDOW INSTALLER, NEEDLE MAKER Unavailable +[phone] Dayo Chaney MD Unavailable Juanita Hauser RN Unavailable UnavailDavid Alexandre MD Unavailable Emilia Tang MD Primary Care Provider [phone] Maurilio Farley MD Unavailable Physician, Candida Davis MD Unavailable Rebeka Trinidad MD Primary Care Provider + [phone] Dom Quiñonez MD Unavailable Rachelle Nava STORM WINDOW INSTALLER, WARE FINISHER Unavailable + [phone] Irais Naylor STORM WINDOW INSTALLER, NEEDLE MAKER Unavailable + [phone] Lorri Leo STORM WINDOW INSTALLER, NEEDLE MAKER Primary Care Provider [phone] Rebeka Trinidad MD Primary Care Provider + [phone] Lorri Leo STORM WINDOW INSTALLER, NEEDLE MAKER Primary Care Provider + [phone] Sharri Gaspar MD Unavailable Tani Biggs [facility] Primary Care Provider + [phone] Amber Aldrich STORM WINDOW INSTALLER, NEEDLE MAKER Unavailable Reason for Visit * Reason Comments Medication Refill Encounter Details Date Type Department Care Team (Late st Contact Info) Description 05/22/2022 Refill [facility] [address] [place] [address] Jackeline Dimas, STORM WINDOW INSTALLER, NEEDLE MAKER [address] [place] [address] Medication Refill Social History Tobacco [...] 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 Unable to assess 05/01/2022 2:58 PM INDUSTRIAL MAINTENANCE MANAGER documented as of this encounter Miscellaneous [...] Dept 05/21/22 Appointment Alize Acosta APRN, LIDA [facility] 05/20/22 Appointment VIRTUAL ADVANCED CARE NURSE [facility] 05/13/22 Appointment VIRTUAL ADVANCED CARE NURSE [facility] 05/06/22 Appointment VIRTUAL ADVANCED CARE NURSE [facility] 05/01/22 Appointment Alize Acosta APRN, LIDA [facility] 04/29/22 Appointment Alize [...] PM CDT Telemedicine [facility] [address] [place] [address] Alize Acosta, STORM WINDOW INSTALLER, NEEDLE MAKER [address] [place] [address] 11/18/2024 3:45 PM CDT Office Visit [facility] - Endocrinology - [place] [address] [place] [address] David Salmon MD #[address] [address] 11/24/2024 2:40 PM CDT Telemedicine [facility] [address] [place] [address] 01/03/2025 11:30 AM CDT Office Visit [facility] Neurology - [place] [address] [place] [address] Rachelle Nava, STORM WINDOW INSTALLER, WARE FINISHER [address] [place] [address] 03/04/2025 3:10 PM INDUSTRIAL MAINTENANCE MANAGER Lab [facility] Primary Care - [place] [address] [place] [address] [facility] 03/04/2025 3:30 PM INDUSTRIAL MAINTENANCE MANAGER Office Visit [facility] Primary Care - [place] [address] [place] [address] Tani Biggs [facility] [address] [place] [address] 03/17/2025 1:30 PM INDUSTRIAL MAINTENANCE MANAGER Lab [facility] Oncology Services [address] [place] [address] Melony Asif PAC [address] [place] [address] Discharge Disposition: Discharged to home or Selfcare 03/25/2025 1:20 PM INDUSTRIAL MAINTENANCE MANAGER Office Visit [facility] Oncology Services [address] [place] [address] Melony Asif Stacey, [facility] [address] [place] [address] Discharge Disposition: Discharged to home or Selfcare 04/25/2025 2:00 PM INDUSTRIAL MAINTENANCE MANAGER Office Visit [facility] Cardiology - [place] [address] [place] [address] Laisha Griffin, DO [address] [address] 07/18/2025 1:00 PM CDT Office Visit [facility] Pulmonology & Sleep Medicine [facility] [address] [place] [address] Dom Quiñonez MD [address] [place] [address] documented as of this encounter Goals Goal [...] recommended. Depression Depression Improving( 2:27 PM INDUSTRIAL MAINTENANCE MANAGER) No Breanne Saldana LCSW Note: Goal/Objective: [...] 04/18/2024 04/18/2024 04/18/2024 10:4 7 PM INDUSTRIAL MAINTENANCE MANAGER Respiratory Rule-Out 05/06/2024 05/06/2024 025 9:20 AM INDUSTRIAL MAINTENANCE MANAGER COVID - 19 05/06/2024 05/06/2024 05/06/2024 9:19 AM INDUSTRIAL MAINTENANCE MANAGER Assessment Noted Time PHQ-9 Depression Total Score: 24 022 3:31 PM INDUSTRIAL MAINTENANCE MANAGER documented as of this encounter Care Teams Wind Operations Manager Relationship Specialty Start Date End Date Jackeline Dimas, STORM WINDOW INSTALLER, NEEDLE MAKER [address] [place] [address] PCP - General Advanced Practice Nurse 07/31/17 Emilia Tang MD [address] [place] [address] PCP - General Family Medicine 06/07/22 03/25/23 Rebeka Trinidad MD [address] [place] [address] PCP - General Family Medicine 03/26/23 03/29/24 Lorri Leo APRN, NEEDLE MAKER [address] [place] [address] PCP - General Certified Nurse Practitioner 03/30/24 04/20/24 Rebeka Trinidad MD [address] [place] [address] PCP - General Family Medicine 04/21/24 04/21/24 Lorri Leo APRN, NEEDLE MAKER [address] [place] [address] PCP - General Certified Nurse Practitioner 04/22/24 05/30/24 Tani Biggs PAC [address] [place] [address] PCP - General Physician Finance Mgr 05/31/24 Phil Jacobo MD #[address] [place] [address] Consulting Physician Neurology 03/07/21 Rajiv Mccormack, KELI [address] [place] [address] Nurse Practitioner Gastroenterology 03/07/21 Alize Acosta, RUSSELL, NEEDLE MAKER [address] [place] [address] Virtual [facility] (VAC) MAIL PROCESSING MACHINE OPERATOR Advanced Practice Nurse 08/30/21 Dayo Chaney MD [address] [place] [address] Land Surveyor Assistant Cardiovascular Disease - Cardiology 09/20/21 02/12/24 Juanita Mercado RN [place] Registered Nurse Cardiology 12/24/21 02/12/24 David Salmon MD #[address] [address] Consulting Physician Endocrinology 01/15/22 Maurilio Farley MD #[address] [address] Consulting Physician Colon and Rectal Surgery 09/20/22 PhysicianCandida MD [address] [place] [address] Family Medicine 01/25/22 03/18/23 Dom Quiñonez MD #[address] [place] [address] Consulting Physician Pulmonary Disease 11/19/21 Rachelle Nava APRN, WARE FINISHER [address] [place] [address] Nurse Practitioner Advanced Practice Nurse 07/19/22 Irais Naylor APRN, NEEDLE MAKER #2 [facility] [address] [place] [address] Nurse Practitioner Cardiology 06/27/23 07/29/24 Sharri Gaspar MD 2 [facility] [place], [place] [place] [address] Consulting Physician Cardiology 04/26/24 Amber Aldrich APRN, NEEDLE MAKER [address] [place] [address] Nurse Practitioner Cardiology 07/30/24 documented as of this encounter
--- OUTSIDE RECORDS SUMMARY | 2024-11-16 13:25 | XMS_ITS | Encounter Summary ---
Author Organization [facility] Address [address] [place] [address] Phone Care Team Providers Care Job Honer Name Role Phone Phil Jacobo MD Unavailable [phone] Rajiv Mccormack NP Unavailable Unavailable Alize Acosta POLICY SERVICE COORDINATOR, COMMISSIONS SPECIALIST Unavailable +[phone] Dayo Chaney MD Unavailable Juanita Hauser RN Unavailable Unavaila David Martinez MD Unavailable Emilia Tang MD Primary Care Provider [phone] Maurilio Farley MD Unavailable PhysicianCandida MD Unavailable Rebeka Trinidad MD Primary Care Provider + [phone] Dom Quiñonez MD Unavailable Rachelle Nava POLICY SERVICE COORDINATOR, SHEEP OR CALF GRADER Unavailable + [phone] Irais Naylor POLICY SERVICE COORDINATOR, COMMISSIONS SPECIALIST Unavailable + [phone] Lorri Leo POLICY SERVICE COORDINATOR, COMMISSIONS SPECIALIST Primary Care Provider + [phone] Rebeka Trinidad MD Primary Care Provider + [phone] Lorri Leo POLICY SERVICE COORDINATOR, COMMISSIONS SPECIALIST Primary Care Provider + [phone] Sharri Gaspar MD Unavailable Tani Biggs Primary Care Provider + [phone] Amber Aldrich POLICY SERVICE COORDINATOR, COMMISSIONS SPECIALIST Unavailable Reason for Visit * Reason Comments Medication Refill Encounter Details Date Type Department Care Team (Late st Contact Info) Description 06/18/2022 Refill [facility] [address] [place] [address] Jackeline Dimas, POLICY SERVICE COORDINATOR, COMMISSIONS SPECIALIST [address] [place] [address] Medication Refill Social History Tobacco Use Types [...] 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 [...] CDT Telemedicine [facility] [address] [place] [address] Alize Acosta, POLICY SERVICE COORDINATOR, COMMISSIONS SPECIALIST [address] [place] [address] 11/18/2024 3:45 PM CDT [facility] - Endocrinology - [place] [address] [place] [address] David Salmon MD #[address] [address] 11/24/2024 2:40 PM CDT Telemedicine [facility] [address] [place] [address] 01/03/2025 11:30 AM CDT [facility] [place] [address] [place] [address] Rachelle Nava, POLICY SERVICE COORDINATOR, SHEEP OR CALF GRADER [address] [place] [address] 03/04/2025 3:10 PM COMBAT SYSTEMS OPERATOR [employer] Lab [facility] [place] [address] [facility] 03/04/2025 3:30 PM COMBAT SYSTEMS OPERATOR [employer] Office Visit [facility] [place] [address] Tani Biggs, [facility] [address] [place] [address] 03/17/2025 1:30 PM COMBAT SYSTEMS OPERATOR [employer] Lab [facility] Oncology Services [address] [place] [address] Asif, Melony Stacey, [facility] [address] [place] [address] Discharge Disposition: Discharged to home or Selfcare 03/25/2025 1:20 PM COMBAT SYSTEMS OPERATOR [employer] Office Visit [facility] Oncology Services [address] [place] [address] AsifMelony Stacey, [facility] [address] [place] [address] Discharge Disposition: Discharged to home or Selfcare 04/25/2025 2:00 PM COMBAT SYSTEMS OPERATOR [employer] Office Visit [facility] - Cardiology - [place] [address] [place] [address] Laisha Griffin, DO [address] [address] 07/18/2025 1:00 PM CDT Office Visit [facility] - Pulmonology & Sleep Medicine - [place] [address] [place] [address] Dom Quiñonez MD [address] [place] [address] documented as of this encounter [...] as recommended. Depression Depression Improving( 2:27 PM COMBAT SYSTEMS OPERATOR [employer]) No Breanne Saldana, MERCHANDISE PRESENTATION MANAGER Note: Goal/Objective: Decrease symptoms of depression [...] 19 04/18/2024 04/18/2024 04/18/2024 10:4 7 PM COMBAT SYSTEMS OPERATOR [employer] Respiratory Rule-Out 05/06/2024 05/06/2024 025 9:20 AM COMBAT SYSTEMS OPERATOR [employer] COVID - 19 05/06/2024 05/06/2024 05/06/2024 9:19 AM COMBAT SYSTEMS OPERATOR [employer] Assessment Noted Time PHQ-9 Depression Total Score: 24 022 3:31 PM COMBAT SYSTEMS OPERATOR [employer] documented as of this encounter Care Teams Job Honer Relationship Specialty Start Date End Date Emilia Tang MD [address] [place] [address] PCP - General Family Medicine 06/07/22 03/25/23 Rebeka Trinidad MD [address] [place] [address] PCP - General Family Medicine 03/26/23 03/29/24 Lorri Leo APRN, COMMISSIONS SPECIALIST [address] [place] [address] PCP - General Certified Nurse Practitioner 03/30/24 04/20/24 Rebeka Trinidad MD [address] [place] [address] PCP - General Family Medicine 04/21/24 04/21/24 Lorri Loe APRN, COMMISSIONS SPECIALIST [address] [place] [address] PCP - General Certified Nurse Practitioner 04/22/24 05/30/24 Tani Biggs [facility] [address] [place] [address] PCP - General Physician Warp Spinner 05/31/24 Phil Jacobo MD #[address] [place] [address] Consulting Physician Neurology 03/07/21 Rajiv Mccormack, SUPERVISOR CELL EFFICIENCY #[address] [place] [address] Nurse Practitioner Gastroenterology 03/07/21 Alize Acosta, POLICY SERVICE COORDINATOR, COMMISSIONS SPECIALIST [address] [place] [address] Virtual [facility] Care (VAC) NUCLEAR LOGGING ENGINEER Advanced Practice Nurse 08/30/21 Dayo Chaney MD [facility] [place] [address] Supervisor Tan Room Cardiovascular Disease - Cardiology 09/20/21 02/12/24 Juanita Mercado RN [place] Registered Nurse Cardiology 12/24/21 02/12/24 David Salmon MD #[address] [address] Consulting Physician Endocrinology 01/15/22 Maurilio Farley MD #[address] [address] Consulting Physician Colon and Rectal Surgery 09/20/22 Physician, Candida Davis MD [address] [place] [address] Family Medicine 01/25/22 03/18/23 Dom Quiñonez MD #[address] [place] [address] Consulting Physician Pulmonary Disease 11/19/21 Rachelle Nava APRN, SHEEP OR CALF GRADER [address] [place] [address] Nurse Practitioner Advanced Practice Nurse 07/19/22 Irais Naylor APRN, COMMISSIONS SPECIALIST #2 [facility] [address] [place] [address] Nurse Practitioner Cardiology 06/27/23 07/29/24 Sharri Gaspar MD 2 [facility], [place] [place] [address] Consulting Physician Cardiology 04/26/24 Amber Aldrich APRN, COMMISSIONS SPECIALIST [address] [place] [address] Nurse Practitioner Cardiology 07/30/24 documented as of this encounter
--- OUTSIDE RECORDS SUMMARY | 2024-11-16 13:25 | XMS_ITS | Encounter Summary ---
Author Organization [facility] Address [address] [place] [address] Phone Care Team Providers Care Shelter Director Name Role Phone Jackeline Dimas BUDGET SPECIALIST, COACH WIRER Primary Care Provider Fiona Martinez MANAGER MONEY Unavailable Unavailab Phil Ellis MD Unavailable +[phone] Rajiv Mccormack NP Unavailable Unavailable Renita Quezada RN Unavailable Unavailable Alize Acosta BUDGET SPECIALIST, COACH WIRER Unavailable +[phone] Dayo Chaney MD Unavailable Juanita Hauser RN Unavailable Unavaila David Martinez MD Unavailable Emilia Tang MD Primary Care Provider [phone] Maurilio Farley MD Unavailable Candida Turner MD Unavailable Rebeka Trinidad MD Primary Care Provider + [phone] Dom Quiñonez MD Unavailable Rachelle Nava BUDGET SPECIALIST, DIE CAST TECHNICIAN Unavailable + [phone] Irais Naylor BUDGET SPECIALIST, COACH WIRER Unavailable + [phone] AhmetAngélicamando Littlejohn BUDGET SPECIALIST, COACH WIRER Primary Care Provider + [phone] Rebeka Trinidad MD Primary Care Provider + [phone] Lorri Leo BUDGET SPECIALIST, COACH WIRER Primary Care Provider +[phone] Sharri Gaspar MD Unavailable Tani Biggs [facility] Primary Care Provider + [phone] Amber Aldrich BUDGET SPECIALIST, COACH WIRER Unavailable Reason for Visit * Reason Comments Medication Refill Encounter Details Date Type Department Care Team (Late Contact Info) Description 10/12/[address] 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 [...] Description 11/17/2024 2:00 PM CDT [facility]icine [facility] [address] [place] [address] Alize Acosta, BUDGET SPECIALIST, COACH WIRER [address] [place] [address] 11/18/2024 3:45 PM CDT Office Visit [facility] - Endocrinology - [place] [address] [place] [address] David Salmon MD #[address] [address] 11/24/2024 2:40 PM CDT Telemedicine [facility] [address] [place] [address] 01/03/2025 11:30 AM CDT Office [facility] Neurology - [place] [address] [place] [address] Rachelle Nava, BUDGET SPECIALIST, DIE CAST TECHNICIAN #[address] [place] [address] 03/04/2025 3:10 PM CASINO CASHIER MANAGER Lab [facility] Primary [facility] [place] [address] [place] [address] [facility] 03/04/2025 3:30 PM CASINO CASHIER MANAGER Office Visit [facility] Primary [facility] [place] [address] [place] [address] Tani Biggs, [facility] [address] [place] [address] 03/17/2025 1:30 PM CASINO CASHIER MANAGER Lab [facility] Oncology Services [address] [place] [address] Melony Asif, PAC [address] [place] [address] Discharge Disposition: Discharged to home or Selfcare 03/25/2025 1:20 PM CASINO CASHIER MANAGER [facility] [address] [place] [address] Melony Asif August, PAC [address] [place] [address] Discharge Disposition: Discharged to home or Selfcare 04/25/2025 2:00 PM CASINO CASHIER MANAGER Office Visit [facility] - Cardiology - [place] [address] [place] [address] Laisha Griffin, DO [address] [address] 07/18/2025 1:00 PM CDT Office Visit [facility] - Pulmonology & Sleep Medicine [facility] #2 [place] [address] Dom Quiñonez MD #2 [place] [address] documented as of this encounter Visit Diagnoses Diagnosis Type 2 diabetes mellitus with hyperglycemia, without long-term current use of insulin (HCC) documented in this encounter Additional Health Concerns Infection Onset Date Last Indicated Resolved Time COVID - 19 01/08/2021 01/08/2021 01/28/2021 12:1 6 AM CASINO CASHIER MANAGER COVID - 19 03/12/2021 03/12/2021 04/01/2021 12:1 6 AM CASINO CASHIER MANAGER COVID - 19 12/15/2021 12/15/2021 12/15/2021 7:26 PM CDT COVID - 19 Confirmed 12/15/2021 12/15/2021 022 12:16 AM CDT COVID - 19 04/18/2024 04/18/2024 04/18/2024 10:4 7 PM CASINO CASHIER MANAGER Respiratory Rule-Out 05/06/2024 05/06/2024 025 9:20 AM CASINO CASHIER MANAGER COVID - 19 05/06/2024 05/06/2024 05/06/2024 9:19 AM CASINO CASHIER MANAGER Assessment Noted Time PHQ-9 Depression Total Score: 0 09/01/19 11:58 AM CDT documented as of this encounter Care Teams Shelter Director Relationship Specialty Start Date End Date Jackeline Dimas BUDGET SPECIALIST, COACH WIRER [address] [place] [address] PCP - General Advanced Practice Nurse 07/31/17 Emilia Tang MD [address] [place] [address] PCP - General Family Medicine 06/07/22 03/25/23 Rebeka Trinidad MD [address] [place] [address] PCP - General Family Medicine 03/26/23 03/29/24 Lorri Leo APRN, COACH WIRER [address] [place] [address] PCP - General Certified Nurse Practitioner 03/30/24 04/20/24 Rebeka Trinidad MD [address] [place] [address] PCP - General Family Medicine 04/21/24 04/21/24 Lorri Leo APRN, COACH WIRER [address] [place] [address] PCP - General Certified Nurse Practitioner 04/22/24 05/30/24 Tani Biggs, PAC [address] [place] [address] PCP - General Physician River Boat Captain 05/31/24 Fiona Martinez LSW [place] Cdl A Driver 03/01/21 08/23/21 Phil Jacobo MD #2 [place] [address] Consulting Physician Neurology 03/07/21 Rajiv Mccormack, KELI [address] [place] [address] Nurse Practitioner Gastroenterology 03/07/21 Renita Quezada RN [place] Cdl A Driver 05/09/21 08/23/21 Alize Acosta, BUDGET SPECIALIST, COACH WIRER [address] [place] [address] Virtual Advanced Care (VAC) COMMUNITY RELATIONS REP Advanced Practice Nurse 08/30/21 Dayo Chaney MD [address] [place] [address] Insurance Follow Up Representative Cardiovascular Disease - Cardiology 09/20/21 02/12/24 Juanita Mercado, [place] Registered Nurse Cardiology 12/24/21 02/12/24 David Salmon MD #[address] [address] Consulting Physician Endocrinology 01/15/22 Maurilio Farley MD #[address] [address] Consulting Physician Colon and Rectal Surgery 09/20/22 PhysicianCandida MD [address] [place] [address] Family Medicine 01/25/22 03/18/23 Dom Quiñonez MD #2 [place] [address] Consulting Physician Pulmonary Disease 11/19/21 Rachelle Nava, BUDGET SPECIALIST, DIE CAST TECHNICIAN #[address] [place] [address] Nurse Practitioner Advanced Practice Nurse 07/19/22 Irais Naylor, BUDGET SPECIALIST, COACH WIRER #[address] [address] Nurse Practitioner Cardiology 06/27/23 07/29/24 Sharri Gaspar MD [address] [address] Consulting Physician Cardiology 04/26/24 Amber Aldrich APRN, COACH WIRER #[address] [place] [address] Nurse Practitioner Cardiology 07/30/24 documented as of this encounter
--- OUTSIDE RECORDS SUMMARY | 2024-11-16 13:25 | XMS_ITS | Encounter Summary ---
Author Organization [facility] Address [address] [place] [address] Phone Care Team Providers Care Tax Accountant Name Role Phone Phil Jacobo MD Unavailable [phone] Rajiv Mccormack NP Unavailable Unavailable Alize Acosta APRN, HEEL ATTACHER Unavailable [phone] Dayo Chaney MD Unavailable Juanita Hauser RN Unavailable UnavailDavid Alexandre MD Unavailable Maurilio Farley MD Unavailable Rebeka Trinidad MD Primary Care Provider + [phone] Dom Quiñonez MD Unavailable Rachelle Nava SOFTWARE SECURITY CONSULTANT, MEAT CUTTER Unavailable + [phone] Irais Naylor SOFTWARE SECURITY CONSULTANT, HEEL ATTACHER Unavailable + [phone] Lorri Leo SOFTWARE SECURITY CONSULTANT, HEEL ATTACHER Primary Care Provider + [phone] Rebeka Trinidad MD Primary Care Provider + [phone] Lorri Leo SOFTWARE SECURITY CONSULTANT, HEEL ATTACHER Primary Care Provider + [phone] Sharri Gaspar MD Unavailable Tani Biggs [facility] Primary Care Provider [phone] Amber Aldrich APRN, CNP Unavailable Reason for Visit * Reason Comments Medication Refill Encounter Details Date Type Department Care Team (Late st Contact Info) Description 06/20/2023 Refill [facility] - Endocrinology - [place] [address] [place] [address] David Salmon MD #[address] [address] Medication Refill Social History Tobacco Use Types Packs/Day Years Used Date Smoking Tobacco: Former Cigarettes 1 37.1 1 985 - 04/12/2021 Smokeless Tobacco: Never Alcohol Use Standard Drinks/Week Comments Not Currently 0 (1 standard drink = 0.6 oz pur e alcohol) last drank 2020 [facility] Utilities Answer Date Recorded In the past 12 months has [employer] electric, gas, oil, or water company threatened [...] Never 03/24/2023 How often do you attend [facility] or voodoo services? 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 documented in this encounter Plan of Treatment Upcoming Encounters Date Type Department Care Team (Late st Contact Info) Description 11/17/2024 2:00 PM CDT Telemedicine [facility] [address] [place] [address] [phone] Alize Acosta APRN, HEEL ATTACHER [address] [place] [address]- 11/18/2024 3:45 PM CDT [facility] - Endocrinology - [place] [address] [place] [address] David Salmon MD #[address] [address] 11/24/2024 2:40 PM CDT Telemedicine [facility] [address] [place] [address] 01/03/2025 11:30 AM CDT [facility] - Neurology - [place] [address] [place] [address] Rachelle Nava APRN, MEAT CUTTER [address] [place] [address] 03/04/2025 3:10 PM RECEPTION CENTRE MANAGER Lab [facility] Primary Care - [place] [address] [place] [address] [place] [facility] 03/04/2025 3:30 PM RECEPTION CENTRE MANAGER Office Visit [facility] [place] [address] [place] [address] Tani Biggs, [facility] [address] [place] [address] 03/17/2025 1:30 PM RECEPTION CENTRE MANAGER Lab [facility] Oncology Services [address] [place] [address] Melony Asif, [facility] [address] [place] [address] Discharge Disposition: Discharged to home or Selfcare 03/25/2025 1:20 PM RECEPTION CENTRE MANAGER Office Visit [facility] Oncology Services [address] [place] [address] Melony Asif, [facility] [address] [place] [address] Discharge Disposition: Discharged to home or Selfcare 04/25/2025 2:00 PM RECEPTION CENTRE MANAGER Office Visit [facility] - Cardiology - [place] [address] [place] [address] Laisha Griffin DO [address] [address] 07/18/2025 1:00 PM CDT Office Visit [facility] - Pulmonology & Sleep Medicine - [place] [address] [place] [address] Dom Quiñonez MD #[address] [place] [address] documented as of this encounter Goals Goal Patient Goal Type Associated Problems Recent Progress Patient-Stated? Author ACTIVITY Activity No change(08/08 2:42 PM CDT) Yes Maritza Vanegas, RN Note: Bonny will walk five days a week. Goal Reviewed with: Bonny Readiness to change: Department associated with goal: [facility] Steps to achieve goal: Walking 5 days a week I want to be able to be around people and feel less depressed. Behavioral Health Worsening(0 09/22/2023 3:12 PM CDT) Yes Hilda Tinajero BUSINESS EXCELLENCE LEADER Note: Goal/Objective: Decrease symptoms of depression and anxiety. Anticipated Time Frame for Goal Completion: 3 months Goal Reviewed with: patient Readiness to change: Thinking about making a change Department associated with goal: [facility] Steps to [...] diet Depression Depression Improving(0 03/15/2022 2:27 PM RECEPTION CENTRE MANAGER) No Breanne Saldana, DATA PROCESSING CONTROL CLERK Note: Goal/Objective: Decrease symptoms of depression associated [...] 19 04/18/2024 04/18/2024 04/18/2024 10:4 7 PM RECEPTION CENTRE MANAGER Respiratory Rule-Out 05/06/2024 05/06/2024 025 9:20 AM RECEPTION CENTRE MANAGER COVID - 05/06/2024 05/06/2024 05/06/2024 9:19 AM RECEPTION CENTRE MANAGER Assessment Noted Time PHQ-9 Depression Total Score: 18 023 9:24 AM CDT documented as of this encounter Care Teams Tax Accountant Relationship Specialty Start Date End Date Rebeka Trinidad MD [address] [place] [address] PCP - General Family Medicine 03/26/23 03/29/24 Lorri Leo APRN, HEEL ATTACHER [address] [place] [address] PCP - General Certified Nurse Practitioner 03/30/24 04/20/24 Rebeka Trinidad MD [address] [place] [place], [place] [id number] PCP - General Family Medicine 04/21/24 04/21/24 Lorri Leo, SOFTWARE SECURITY CONSULTANT, HEEL ATTACHER [address] [place], [place] [id number] PCP - General Certified Nurse Practitioner 04/22/24 05/30/24 Tani Biggs, PAC [address] [place] [address] PCP - General Physician Pumpman 05/31/24 Phil Jacobo MD #[address] [place] [address] Consulting Physician Neurology 03/07/21 Rajiv Mccormack, MILLED RICE BROKER [address] [place] [address] Nurse Practitioner Gastroenterology 03/07/21 Alize Acosta, RUSSELL, HEEL ATTACHER [address] [place], [place] [address] Virtual Advanced Care (VAC) WIND TURBINE ELECTRICAL ENGINEER Advanced Practice Nurse 08/30/21 Dayo Chaney MD [address] [place] [address] Piledriver Carpenter Cardiovascular Disease - Cardiology 09/20/21 02/12/24 Juanita Mercado, [place] Registered Nurse Cardiology 12/24/21 02/12/24 David Salmon MD #[address] [address] Consulting Physician Endocrinology 01/15/22 Maurilio Farley MD [address] [address] Consulting Physician Colon and Rectal Surgery 09/20/22 Dom Quiñonez MD #2 [facility] [place] [address] Consulting Physician Pulmonary Disease 11/19/21 Rachelle Nava, SOFTWARE SECURITY CONSULTANT, MEAT CUTTER #[address] [place] [address] Nurse Practitioner Advanced Practice Nurse 07/19/22 Irais Naylor, SOFTWARE SECURITY CONSULTANT, HEEL ATTACHER #2 [facility] [place] [address] Nurse Practitioner Cardiology 06/27/23 07/29/24 Sharri Gaspar MD [address] [address] Consulting Physician Cardiology 04/26/24 Amber Aldrich APRN, HEEL ATTACHER #[address] [place] [address] Nurse Practitioner Cardiology 07/30/24 documented as of this encounter
--- OUTSIDE RECORDS SUMMARY | 2024-11-16 13:25 | XMS_ITS | Encounter Summary ---
Author Organization [facility] Address [address] [place] [address] Phone Care Team Providers Care Overlay Plastician Name Role Phone Jackeline Dimas LIFT MECHANIC, SADDLE MECHANIC Primary Care Provider Phil Jacobo MD Unavailable [phone] Rajiv Mccormack NP Unavailable Unavailable Alize Acosta LIFT MECHANIC, SADDLE MECHANIC Unavailable [phone] Dayo Chaney MD Unavailable Juanita Hauser RN Unavailable UnavailDavid Alexandre MD Unavailable Emilia Tang MD Primary Care Provider [phone] Maurilio Farley MD Unavailable Physician, Candida Davis MD Unavailable Rebeka Trinidad MD Primary Care Provider + [phone] Dom Quiñonez MD Unavailable Rachelle Nava LIFT MECHANIC, DOG BEAUTICIAN Unavailable + [phone] Irais Naylor LIFT MECHANIC, SADDLE MECHANIC Unavailable + [phone] Lorri Leo LIFT MECHANIC, SADDLE MECHANIC Primary Care Provider [phone] Rebeka Trinidad MD Primary Care Provider + [phone] Ahmet Lorri Annetta LIFT MECHANIC, [facility] Primary Care Provider + [phone] Sharri Gaspar MD Unavailable Tani Biggs [facility] Primary Care Provider [phone] Amber Aldrich LIFT MECHANIC, [facility] Unavailable Reason for Visit * Reason Comments Medication Refill Encounter Details Date Type Department Care Team (Late st Contact Info) Description 02/19/2022 Refill [facility] - Primary Care - [place] [address] [place] [address] Jackeline Dimas LIFT MECHANIC, [facility] [address] [place] [address] Medication Refill Social History Tobacco [...] 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 No / Unsure 02/22/2022 2:34 PM PATIENT ACCESS MANAGER documented as of this encounter Miscellaneous Notes * Telephone Encounter - Yoana Rojas, RN - 02/19/2022 2:49 PM CST Dosing changed to 50 mg 01/15/22. ENT ACCESS MANAGER documented in this encounter Plan of Treatment Upcoming Encounters Date Type Department Care Team (Late st Contact Info) Description 11/17/2024 2:00 PM CDT Telemedicine [facility] [address] [place] [address] Alize Acosta, LIFT MECHANIC, SADDLE MECHANIC [address] [place] [address] 11/18/2024 3:45 PM CDT Office Visit [facility] Group - Endocrinology - [place] #[address] [place] [address] David Salmon MD #[address] [address] 11/24/2024 2:40 PM CDT Telemedicine [facility] [address] [place] [address] 01/03/2025 11:30 AM CDT Office Visit [facility] - Neurology - [place] [address] [place] [address] Rachelle Nava, LIFT MECHANIC, DOG BEAUTICIAN [address] [place] [address] 03/04/2025 3:10 PM PATIENT ACCESS MANAGER Lab [facility] - Primary Care - [place] [address] [place] [address] [facility] 03/04/2025 3:30 PM PATIENT ACCESS MANAGER Office Visit [facility] - Primary Care - [place] [address] [place] [address] Tani Biggs PAC [address] [place] [address] 03/17/2025 1:30 PM PATIENT ACCESS MANAGER Lab [facility] Oncology Services [address] [place] [address] AsifMelony August, PAC [address] [place] [address] Discharge Disposition: Discharged to home or Selfcare 03/25/2025 1:20 PM PATIENT ACCESS MANAGER Office Visit [facility] Oncology Services [address] [place] [address] AsifMelony August, PAC [address] [place] [address] Discharge Disposition: Discharged to home or Selfcare 04/25/2025 2:00 PM PATIENT ACCESS MANAGER Office Visit [facility] Medical [facility] - Cardiology - [place] [address] [place] [address] Laisha Griffin, DO [address] [address] 07/18/2025 1:00 PM CDT Office Visit [facility] - Pulmonology & Sleep Medicine [facility] #2 [place] [address] Dom Quiñonez MD #[address] [place] [address] documented as of this encounter Goals Goal [...] as recommended. Depression Depression Improving( 2:27 PM PATIENT ACCESS MANAGER) No Breanne Saldana LCSW Note: Goal/Objective: [...] 19 04/18/2024 04/18/2024 04/18/2024 10:4 7 PM PATIENT ACCESS MANAGER Respiratory Rule-Out 05/06/2024 05/06/2024 025 9:20 AM PATIENT ACCESS MANAGER COVID - 19 05/06/2024 05/06/2024 05/06/2024 9:19 AM PATIENT ACCESS MANAGER Assessment Noted Time PHQ-9 Depression Total Score: 24 022 3:31 PM PATIENT ACCESS MANAGER documented as of this encounter Care Teams Overlay Plastician Relationship Specialty Start Date End Date Jackeline Dimas APRN, SADDLE MECHANIC [address] [place] [address] PCP - General Advanced Practice Nurse 07/31/17 Emilia Tang MD [address] [place] [address] PCP - General Family Medicine 06/07/22 03/25/23 Rebeka Trinidad MD [address] [place] [address] PCP - General Family Medicine 03/26/23 03/29/24 Lorri Leo APRN, SADDLE MECHANIC [address] [place] [address] PCP - General Certified Nurse Practitioner 03/30/24 04/20/24 Rebeka Trinidad MD [address] [place] [address] PCP - General Family Medicine 04/21/24 04/21/24 Lorri Leo APRN, SADDLE MECHANIC [address] [place] [address] PCP - General Certified Nurse Practitioner 04/22/24 05/30/24 Tani Biggs, PAC [address] [place] [address] PCP - General Physician Music Autographer 05/31/24 Phil Jacobo MD #[address] [place] [address] Consulting Physician Neurology 03/07/21 Rajiv Mccormack, KELI [address] [place] [address] Nurse Practitioner Gastroenterology 03/07/21 Alize Acosta, LIFT MECHANIC, SADDLE MECHANIC [address] [place], [place] [address] Virtual Advanced Care (VAC) ELECTRICAL DISCHARGE MACHINE OPERATOR Advanced Practice Nurse 08/30/21 Dayo Chaney MD [address] [place] [address] Boat Operator Cardiovascular Disease - Cardiology 09/20/21 02/12/24 Juanita Mercado RN [place] Registered Nurse Cardiology 12/24/21 02/12/24 David Salmon MD #[address] [address] Consulting Physician Endocrinology 01/15/22 Maurilio Farley MD #[address] [address] Consulting Physician Colon and Rectal Surgery 09/20/22 Physician, Candida Davis MD [address] [place], [place] [phone] Family Medicine 01/25/22 03/18/23 Dom Quiñonez MD #2 [place] [address] Consulting Physician Pulmonary Disease 11/19/21 Rachelle Nava APRN, DOG BEAUTICIAN #[address] [place] [address] Nurse Practitioner Advanced Practice Nurse 07/19/22 Irais Naylor APRN, SADDLE MECHANIC #2 [facility] [facility] [address] [place] [address] Nurse Practitioner Cardiology 06/27/23 07/29/24 Sharri Gaspar MD 2 [facility] [address] [facility] [address] [place] [address] Consulting Physician Cardiology 04/26/24 Amber Aldrich APRN, SADDLE MECHANIC [address] [place] [address] Nurse Practitioner Cardiology 07/30/24 documented as of this encounter
--- OUTSIDE RECORDS SUMMARY | 2024-11-16 13:25 | XMS_ITS | Encounter Summary ---
Author Organization [facility] Address [address] [place] [address] Phone Care Team Providers Care Dispatch Clerk Name Role Phone Jackeline Dimas TRANSITIONAL LIVING SPECIALIST, DATA ENTRY EMAIL PROCESSOR Primary Care Provider Phil Jacobo MD Unavailable +[phone] Rajiv Mccormack NP Unavailable Unavailable Alize Acosta TRANSITIONAL LIVING SPECIALIST, DATA ENTRY EMAIL PROCESSOR Unavailable +[phone] Dayo Chaney MD Unavailable Juanita Hauser RN Unavailable UnavailDavid Alexandre MD Unavailable Emilia Tang MD Primary Care Provider [phone] Maurilio Farley MD Unavailable Physician, Candida Davis MD Unavailable Rebeka Trinidad MD Primary Care Provider + [phone] Dom Quiñonez MD Unavailable Rachelle Nava TRANSITIONAL LIVING SPECIALIST, FIRE WATCHMAN Unavailable + [phone] Irais Naylor TRANSITIONAL LIVING SPECIALIST, DATA ENTRY EMAIL PROCESSOR Unavailable + [phone] Lorri Leo TRANSITIONAL LIVING SPECIALIST, DATA ENTRY EMAIL PROCESSOR Primary Care Provider [phone] Rebeka Trinidad MD Primary Care Provider + [phone] AhmetLorri Annetta TRANSITIONAL LIVING SPECIALIST, [facility] Primary Care Provider + [phone] Sharri Gaspar MD Unavailable Kalyan Tani B [facility] Primary Care Provider [phone] Amber Aldrich APRN, [facility] Unavailable Reason for Visit * Reason Comments Medication Refill Encounter Details Date Type Department Care Team (Late st Contact Info) Description 05/18/2022 Refill [facility] - Endocrinology - [place] [address] [place] [address] David Salmon MD #[address] [address] Medication Refill Social History Tobacco [...] 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 Unable to assess 05/01/2022 2:58 PM FINANCIAL INSTITUTION PRESIDENT documented as of this encounter Miscellaneous Notes * Telephone Encounter - Yesi Leggett RN - 05/20/2022 8:26 AM CDT Requested Prescriptions Pending Prescriptions Disp Refills ??? Lancets (OneTouch Delica Plus [id number]) Misc [Pharmacy Med Name: ONE TOUCH DELICA PLUS 33G LANCETS] 200 Each Sig: USE TO TEST BLOOD GLUCOSE TWICE DAILY Next appt: 07/30/2022 documented in this encounter Plan of Treatment Upcoming Encounters Date Type Department Care Team (Late st Contact Info) Description 11/17/2024 2:00 PM CDT Telemedicine [facility] [address] [place] [address] Alize Acosta APRN, DATA ENTRY EMAIL PROCESSOR [address] [place] [address] 11/18/2024 3:45 PM CDT Office Visit [facility] - Endocrinology - [place] [address] [place] [address] David Salmon MD #[address] [address] 11/24/2024 2:40 PM CDT [facility] [address] [place] [address] 01/03/2025 11:30 AM CDT Office Visit [facility] - Neurology - [place] [address] [place] [address] Rachelle Nava APRN, FIRE WATCHMAN [address] [place] [address] 03/04/2025 3:10 PM FINANCIAL INSTITUTION PRESIDENT Lab [facility] - Primary Care - [address] [address] Lab, [facility] 03/04/2025 3:30 PM FINANCIAL INSTITUTION PRESIDENT Office Visit [facility] - Primary Care - [place] [address] [place] [address] Tani Biggs, [facility] [address] [place] [address] 03/17/2025 1:30 PM FINANCIAL INSTITUTION PRESIDENT Lab [facility] [address] [place] [address] Melony Asif, PAC [address] [place] [address] Discharge Disposition: Discharged to home or Selfcare 03/25/2025 1:20 PM FINANCIAL INSTITUTION PRESIDENT [facility] [address] [place] [address] Melony Asif Stacey, PAC [address] [place] [address] Discharge Disposition: Discharged to home or Selfcare 04/25/2025 2:00 PM FINANCIAL INSTITUTION PRESIDENT Office Visit [facility] - Cardiology - [place] [address] [place] [address] Laisha Griffin, DO [address] [address] 07/18/2025 1:00 PM CDT Office Visit [facility] - Pulmonology & Sleep Medicine - [place] [address] [place] [address] Dom Quiñonez MD #[address] [place] [address] documented as of this encounter [...] as recommended. Depression Depression Improving( 2:27 PM FINANCIAL INSTITUTION PRESIDENT) No Breanne Saldana LCSW Note: Goal/Objective: Decrease [...] 19 04/18/2024 04/18/2024 04/18/2024 10:4 7 PM FINANCIAL INSTITUTION PRESIDENT Respiratory Rule-Out 05/06/2024 05/06/2024 025 9:20 AM FINANCIAL INSTITUTION PRESIDENT COVID - 19 05/06/2024 05/06/2024 05/06/2024 9:19 AM FINANCIAL INSTITUTION PRESIDENT Assessment Noted Time PHQ-9 Depression Total Score: 24 022 3:31 PM FINANCIAL INSTITUTION PRESIDENT documented as of this encounter Care Teams Dispatch Clerk Relationship Specialty Start Date End Date Jackeline Dimas, TRANSITIONAL LIVING SPECIALIST, DATA ENTRY EMAIL PROCESSOR [address] [place] [address] PCP - General Advanced Practice Nurse 07/31/17 Emilia Tang MD [address] [place] [address] PCP - General Family Medicine 06/07/22 03/25/23 Rebeka Trinidad MD [address] [place] [address] PCP - General Family Medicine 03/26/23 03/29/24 Lorri Leo APRN, DATA ENTRY EMAIL PROCESSOR [address] [place] [address] PCP - General Certified Nurse Practitioner 03/30/24 04/20/24 Rebeka Trinidad MD [address] [place] [address] PCP - General Family Medicine 04/21/24 04/21/24 Lorri Leo APRN, DATA ENTRY EMAIL PROCESSOR [address] [place] [address] PCP - General Certified Nurse Practitioner 04/22/24 05/30/24 Tani Biggs, PAC [address] [place] [address] PCP - General Physician Scheduling Clerk 05/31/24 Phil Jacobo MD #[address] [place] [address] Consulting Physician Neurology 03/07/21 Rajiv Mccormack, KELI [address] [place] [address] Nurse Practitioner Gastroenterology 03/07/21 Alize Acosta, TRANSITIONAL LIVING SPECIALIST, DATA ENTRY EMAIL PROCESSOR [address] [place] [address] Virtual Advanced Care (VAC) ENDOSCOPY TECHNICAN Advanced Practice Nurse 08/30/21 Dayo Chaney MD [address] [place] [address] Service Restorer Emergency Cardiovascular Disease - Cardiology 09/20/21 02/12/24 Juanita Mercado RN [place] Registered Nurse Cardiology 12/24/21 02/12/24 David Salmon MD #[address] [address] Consulting Physician Endocrinology 01/15/22 Maurilio Farley MD #[address] [address] Consulting Physician Colon and Rectal Surgery 09/20/22 PhysicianCandida MD [address] [place], [place] [address] Family Medicine 01/25/22 03/18/23 Dom Quiñonez MD #[address] [facility] [place] [address] Consulting Physician Pulmonary Disease 11/19/21 Rachelle Nava, TRANSITIONAL LIVING SPECIALIST, FIRE WATCHMAN [address] [place] [address] Nurse Practitioner Advanced Practice Nurse 07/19/22 Irais Naylor, TRANSITIONAL LIVING SPECIALIST, DATA ENTRY EMAIL PROCESSOR #2 [facility] [address] [place] [address] Nurse Practitioner Cardiology 06/27/23 07/29/24 Sharri Gaspar MD 2 [facility] [address] [place] [address] Consulting Physician Cardiology 04/26/24 Amber Aldrich APRN, DATA ENTRY EMAIL PROCESSOR #[address] [place] [address] Nurse Practitioner Cardiology 07/30/24 documented as of this encounter
--- OUTSIDE RECORDS SUMMARY | 2024-11-16 13:25 | XMS_ITS | Encounter Summary ---
Author Organization [facility] Address [address] [place] [address] Phone Care Team Providers Care Technical Business Systems Analyst Name Role Phone Jackeline Dimas ONLINE EDUCATION MANAGER, GOVERNOR ASSEMBLER HYDRAULIC Primary Care Provider Fiona Martinez REGISTERED NURSE TEACHER Unavailable Unavailab Phil Ellis MD Unavailable [phone] Rajiv Mccormack NP Unavailable Unavailable Renita Quezada RN Unavailable Unavailable Alize Acosta ONLINE EDUCATION MANAGER, GOVERNOR ASSEMBLER HYDRAULIC Unavailable [phone] Dayo Chaney MD Unavailable Juanita Hauser RN Unavailable Unavaila David Martinez MD Unavailable Emilia Tang MD Primary Care Provider [phone] Maurilio Farley MD Unavailable Candida Turner MD Unavailable Rebeka Trinidad MD Primary Care Provider + [phone] Dom Quiñonez MD Unavailable Rachelle Nava ONLINE EDUCATION MANAGER, CHALK EXTRUDING MACHINE OPERATOR Unavailable + [phone] Irais Naylor ONLINE EDUCATION MANAGER, GOVERNOR ASSEMBLER HYDRAULIC Unavailable + [phone] AhmetAngélicamando Littlejohn ONLINE EDUCATION MANAGER, GOVERNOR ASSEMBLER HYDRAULIC Primary Care Provider + [phone] Rebeka Trinidad MD Primary Care Provider + [phone] Lorri Leo ONLINE EDUCATION MANAGER, GOVERNOR ASSEMBLER HYDRAULIC Primary Care Provider [phone] Sharri Gaspar MD Unavailable Tani Biggs [facility] Primary Care Provider + [phone] Amber Aldrich ONLINE EDUCATION MANAGER, GOVERNOR ASSEMBLER HYDRAULIC Unavailable Reason for Visit * Reason Comments Medication Refill Encounter Details Date Type Department Care Team (Late Contact Info) Description 10/12/2020 Refill [facility] - Primary Care - [place] [address] [place] [address] Jackeline Dimas, ONLINE EDUCATION MANAGER, [facility] [address] [place] [address] Medication Refill Social History Tobacco [...] 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 [...] Description 11/17/2024 2:00 PM CDT Telemedicine [facility] [address] [place] [address] Alize Acosta, ONLINE EDUCATION MANAGER, GOVERNOR ASSEMBLER HYDRAULIC [address] [place] [address] 11/18/2024 3:45 PM CDT Office Visit [facility] - Endocrinology - [place] [address] [place] [address] David Salmon MD #[address] [address] 11/24/2024 2:40 PM CDT Telemedicine [facility] [address] [place] [address] 01/03/2025 11:30 AM CDT [facility] [place] [address] [place] [address] Rachelle Nava, ONLINE EDUCATION MANAGER, CHALK EXTRUDING MACHINE OPERATOR [address] [place] [address] 03/04/2025 3:10 PM MUCK MINER Lab [facility] Primary [facility] Emergency Department - [place] [address] [place] [address] [facility] 03/04/2025 3:30 PM MUCK MINER Office Visit [facility] Primary [facility] Emergency Department - [place] [address] [place] [address] Tani Biggs, [facility] [address] [place] [address] 03/17/2025 1:30 PM MUCK MINER Lab [facility] Oncology Services [address] [place] [address] Melony Asif, PAC [address] [place] [address] Discharge Disposition: Discharged to home or Selfcare 03/25/2025 1:20 PM MUCK MINER [facility] [address] [facility] [place] [address] Melony Asif August, PAC [address] [place] [address] Discharge Disposition: Discharged to home or Selfcare 04/25/2025 2:00 PM MUCK MINER Office Visit [facility] - Cardiology - [place] [address] [place] [address] Laisha Griffin, DO [address] [address] 07/18/2025 1:00 PM CDT Office Visit [facility] - Pulmonology & Sleep Medicine [facility] #[address] [place] [address] Dom Quiñonez MD #[address] [place] [address] documented as of this encounter Visit Diagnoses Not on filedocumented in this encounter Additional Health Concerns Infection Onset Date Last Indicated Resolved Time COVID - 19 01/08/2021 01/08/2021 01/28/2021 12:1 6 AM MUCK MINER COVID - 19 03/12/2021 03/12/2021 04/01/2021 12:1 6 AM MUCK MINER COVID - 19 12/15/2021 12/15/2021 12/15/2021 7:26 PM CDT COVID - 19 Confirmed 12/15/2021 12/15/2021 022 12:16 AM CDT COVID - 19 04/18/2024 04/18/2024 04/18/2024 10:4 7 PM MUCK MINER Respiratory Rule-Out 05/06/2024 05/06/2024 025 9:20 AM MUCK MINER COVID - 19 05/06/2024 05/06/2024 05/06/2024 9:19 AM MUCK MINER Assessment Noted Time PHQ-9 Depression Total Score: 0 09/01/19 11:58 AM CDT documented as of this encounter Care Teams Technical Business Systems Analyst Relationship Specialty Start Date End Date Jackeline Dimas, ONLINE EDUCATION MANAGER, GOVERNOR ASSEMBLER HYDRAULIC [address] [place] [address] PCP - General Advanced Practice Nurse 07/31/17 Emilia Tang MD [address] [place] [address] PCP - General Family Medicine 06/07/22 03/25/23 Rebeka Trinidad MD [address] [place] [address] PCP - General Family Medicine 03/26/23 03/29/24 Lorri Leo APRN, GOVERNOR ASSEMBLER HYDRAULIC [address] [place] [address] PCP - General Certified Nurse Practitioner 03/30/24 04/20/24 Rebeka Trinidad MD [address] [place] [address] PCP - General Family Medicine 04/21/24 04/21/24 Lorri Leo APRN, GOVERNOR ASSEMBLER HYDRAULIC [address] [place] [address] PCP - General Certified Nurse Practitioner 04/22/24 05/30/24 Tani Biggs, PAC [address] [place] [address] PCP - General Physician Calibration Tester 05/31/24 Fiona Martinez, REGISTERED NURSE TEACHER [place] Rrt 03/01/21 08/23/21 Phil Jacobo MD #[address] [place] [address] Consulting Physician Neurology 03/07/21 Rajiv Mccormack, KELI [address] [place] [address] Nurse Practitioner Gastroenterology 03/07/21 Renita Quezada RN [place] Rrt 05/09/21 08/23/21 Alize Acosta, ONLINE EDUCATION MANAGER, GOVERNOR ASSEMBLER HYDRAULIC [facility] [place] [address] Virtual Advanced Care (VAC) BRICK WASHER Advanced Practice Nurse 08/30/21 Dayo Chaney MD [address] [place] [address] Conference Center Manager Cardiovascular Disease - Cardiology 09/20/21 02/12/24 Juanita Mercado, [place] Registered Nurse Cardiology 12/24/21 02/12/24 David Salmon MD #[address] [address] Consulting Physician Endocrinology 01/15/22 Maurilio Farley MD #[address] [address] Consulting Physician Colon and Rectal Surgery 09/20/22 PhysicianCandida MD [address] [place] [address] Family Medicine 01/25/22 03/18/23 Dom Quiñonez MD #[address] [place] [address] Consulting Physician Pulmonary Disease 11/19/21 Rachelle Nava APRN, CHALK EXTRUDING MACHINE OPERATOR #[address] [place] [address] Nurse Practitioner Advanced Practice Nurse 07/19/22 Irais Naylor APRN, GOVERNOR ASSEMBLER HYDRAULIC #2 [facility] [address] [place] [address] Nurse Practitioner Cardiology 06/27/23 07/29/24 Sharri Gaspar MD 2 [facility] [address] [place] [address] Consulting Physician Cardiology 04/26/24 Amber Aldrich APRN, GOVERNOR ASSEMBLER HYDRAULIC #[address] [place] [address] Nurse Practitioner Cardiology 07/30/24 documented as of this encounter
--- OUTSIDE RECORDS SUMMARY | 2024-11-16 13:25 | XMS_ITS | Encounter Summary ---
Author Organization [facility] Address [address] [place] [address] Phone Care Team Providers Care Aviation Safety Officer Name Role Phone Phil Jacobo MD Unavailable [phone] Rajiv Mccormack NP Unavailable Unavailable Alize Acosta APRN, SPECIAL CRIMES INVESTIGATOR Unavailable [phone] Dayo Chaney MD Unavailable Juanita Hauser RN Unavailable UnavailDavid Alexandre MD Unavailable Maurilio Farley MD Unavailable Rebeka Trinidad MD Primary Care Provider + [phone] Dom Quiñonez MD Unavailable Rachelle Nava PORCELAIN FINISH SPRAYER, IMPROVEMENT INTERN Unavailable + [phone] Irias Naylor PORCELAIN FINISH SPRAYER, SPECIAL CRIMES INVESTIGATOR Unavailable + [phone] Lorri Leo PORCELAIN FINISH SPRAYER, SPECIAL CRIMES INVESTIGATOR Primary Care Provider + [phone] Rebeka Trinidad MD Primary Care Provider + [phone] Lorri Leo PORCELAIN FINISH SPRAYER, SPECIAL CRIMES INVESTIGATOR Primary Care Provider + [phone] Sharri Gaspar MD Unavailable Tani Biggs PAC Primary Care Provider [phone] Amber Aldrich APRN, SPECIAL CRIMES INVESTIGATOR Unavailable Reason for Visit * Reason Comments Medication Refill Encounter Details Date Type Department Care Team (Late st Contact Info) Description 07/07/[address] [facility] - Neurology [facility] [address] [place] [address] Rachelle Nava, RUSSELL, IMPROVEMENT INTERN [address] [place] [address] Medication Refill Social History Tobacco Use Types Packs/Day Years Used Date Smoking Tobacco: Former Cigarettes 1 37.1 1 985 - 04/12/2021 Smokeless Tobacco: Never Alcohol Use Standard Drinks/Week Comments Not Currently 0 (1 standard drink = 0.6 oz pur e alcohol) last drank 2020 [facility] Utilities Answer Date Recorded In the past 12 months has [employer] electric, gas, oil, or water company threatened [...] you attend [facility] or scientology services? More than 4 times per year [...] 18 08/ [facility] - Occupational Stress [...] to sleep or slept in a senior living (including now)? 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 [...] Dept 06/19/23 Office Visit Phil Jacobo MD [facility] Neurology [facility] 06/04/23 Office Visit Rebeka Trinidad MD [facility] 05/09/23 Office Visit Rebeka Trinidad MD [facility] 03/26/23 Office Visit Rebeka Trinidad MD [facility] 03/19/23 Office Visit Rachelle Nava APRN, IMPROVEMENT INTERN [facility] Neurology [facility] 02/06/23 Office Visit Emilia Tang MD [facility] 11/06/22 Office Visit Emilia Tang MD [facility] 10/10/22 Office Visit Emilia Tang MD [facility] 09/16/22 Office Visit Rachelle Nava APRN, IMPROVEMENT INTERN [facility] Neurology [facility] 09/06/22 Office Visit [facility] Showing recent visits within past [...] CDT Telemedicine [facility] [address] [place] [address] Alize Acosta, RUSSELL, SPECIAL CRIMES INVESTIGATOR [address] [place] [address] 11/18/2024 3:45 PM CDT Office Visit [facility] Group - Endocrinology - [place] [address] [place] [address] David Salmon MD #[address] [address] 11/24/2024 2:40 PM CDT Telemedicine [facility] [address] [place] [address] 01/03/2025 11:30 AM CDT [facility] - [place] [address] [place] [address] Rachelle Nava APRN, IMPROVEMENT INTERN [address] [place] [address] 03/04/2025 3:10 PM RAILWAY EQUIPMENT OPERATOR Lab [facility] [place] [address] [facility] 03/04/2025 3:30 PM RAILWAY EQUIPMENT OPERATOR Office Visit [facility] Primary [facility] [place] [address] Tani Biggs, [facility] [address] [place] [address] 03/17/2025 1:30 PM RAILWAY EQUIPMENT OPERATOR Lab [facility] Oncology Services [address] [place] [address] [place] Melony Stacey, [facility] [address] [place] [address] Discharge Disposition: Discharged to home or Selfcare 03/25/2025 1:20 PM RAILWAY EQUIPMENT OPERATOR Office Visit [facility] Oncology Services [address] [place] [address] [facility], [facility] [address] [place] [address] Discharge Disposition: Discharged to home or Selfcare 04/25/2025 2:00 PM RAILWAY EQUIPMENT OPERATOR Office Visit [facility] - Cardiology - [place] [address] [place] [address] Laisha Griffin, DO [address] [address] 07/18/2025 1:00 PM CDT Office Visit [facility] - Pulmonology & Sleep Medicine - [place] [address] [place] [address] Dom Quiñonez MD [address] [place] [address] documented as of this encounter Goals Goal Patient Goal Type Associated Problems Recent Progress Patient-Stated? Author ACTIVITY Activity No change(08/08 2:42 PM CDT) Yes Maritza Vanegas, RN Note: Bonny will walk five days a week. Goal Reviewed with: Bonny Readiness to change: Department associated with goal: [facility] Steps to achieve goal: Walking 5 days a week I want to be able to be around people and feel less depressed. Behavioral Health Worsening(0 09/22/2023 3:12 PM CDT) Hilda Mesa [facility] Note: Goal/Objective: Decrease symptoms of depression and anxiety. Anticipated Time Frame for Goal Completion: 3 months Goal Reviewed with: patient Readiness to change: Thinking about making a change Department associated with goal: [facility] Steps to achieve [...] diet Depression Depression Improving(0 03/15/2022 2:27 PM RAILWAY EQUIPMENT OPERATOR) No Breanne Saldana LCSW Note: Goal/Objective: [...] 19 04/18/2024 04/18/2024 04/18/2024 10:4 7 PM RAILWAY EQUIPMENT OPERATOR Respiratory Rule-Out 05/06/2024 05/06/2024 025 9:20 AM RAILWAY EQUIPMENT OPERATOR COVID - 05/06/2024 05/06/2024 05/06/2024 9:19 AM RAILWAY EQUIPMENT OPERATOR Assessment Noted Time PHQ-9 Depression Total Score: 18 023 9:24 AM CDT documented as of this encounter Care Teams Aviation Safety Officer Relationship Specialty Start Date End Date Rebeka Trinidad MD [address] [place] [address] PCP - General Family Medicine 03/26/23 03/29/24 Lorri Leo APRN, SPECIAL CRIMES INVESTIGATOR [address] [place] [address] PCP - General Certified Nurse Practitioner 03/30/24 04/20/24 Rebeka Trinidad MD [address] [place] [address] PCP - General Family Medicine 04/21/24 04/21/24 Lorri Leo APRN, SPECIAL CRIMES INVESTIGATOR [address] [place] [address] PCP - General Certified Nurse Practitioner 04/22/24 05/30/24 Tani Biggs, PAC [address] [place] [address] PCP - General Physician Drive Man 05/31/24 Phil Jacobo MD #[address] [place] [address] Consulting Physician Neurology 03/07/21 Rajiv Mccormack, YELLOW PAGES SPACE SALESPERSON [address] [place] [address] Nurse Practitioner Gastroenterology 03/07/21 Alize Acosta, PORCELAIN FINISH SPRAYER, SPECIAL CRIMES INVESTIGATOR [address] [place] [address] Virtual Advanced Care (VAC) ETCH OPERATOR SEMICONDUCTOR WAFERS Advanced Practice Nurse 08/30/21 Dayo Chaney MD [address] [place] [address] Trainer Cardiovascular Disease - Cardiology 09/20/21 02/12/24 Juanita Mercado, [place] Registered Nurse Cardiology 12/24/21 02/12/24 David Salmon MD #[address] [address] Consulting Physician Endocrinology 01/15/22 Maurilio Farley MD #[address] [address] Consulting Physician Colon and Rectal Surgery 09/20/22 Dom Quiñonez MD #[address] [place] [address] Consulting Physician Pulmonary Disease 11/19/21 Rachelle Nava APRN, IMPROVEMENT INTERN #[address] [place] [address] Nurse Practitioner Advanced Practice Nurse 07/19/22 Irais Naylor APRN, SPECIAL CRIMES INVESTIGATOR #2 [facility] [address] [place] [address] Nurse Practitioner Cardiology 06/27/23 07/29/24 Sharri Gaspar MD [address] [facility] [address] [place] [address] Consulting Physician Cardiology 04/26/24 Amber Aldrich APRN, SPECIAL CRIMES INVESTIGATOR [address] [place] [address] Nurse Practitioner Cardiology 07/30/24 documented as of this encounter
--- OUTSIDE RECORDS SUMMARY | 2024-11-16 13:25 | XMS_ITS | Encounter Summary ---
Author Organization [employer] Care Team Providers Care Tag Maker Name Role Phone Phil Jacobo MD Unavailable [phone] Rajiv Mccormack NP Unavailable Unavailable Alize Acosta SANITATION WORKER HOSING MACHINERY, MONITORING MANAGER Unavailable David Salmon MD Unavailable Maurilio Farley MD Unavailable Dom Quiñonez MD Unavailable Rachelle Nava SANITATION WORKER HOSING MACHINERY, COMPACT ASSEMBLER Unavailable + [phone] Sharri Gaspar MD Unavailable Tani Biggs [facility] Primary Care Provider [phone] Amber Aldrich SANITATION WORKER HOSING MACHINERY, MONITORING MANAGER Unavailable Encounter Details Date Type Department Care Team (Latest Contact Info) Description 11/15/2024 Travel Social History Tobacco Use Types Packs/Day Years Used Date Smoking Tobacco: Some Days Cigarettes 1 37.1 Started: 1984; Last attempted to quit: 04/12/2021 Passive Smoke Exposure: Never Smokeless Tobacco: Never Alcohol Use Standard Drinks/Week Comments Not Currently 0 (1 standard drink = 0.6 oz pur e alcohol) Last drink in 2020 [facility] Utilities Answer Date Recorded In the past 12 months has th e electric, gas, oil, or water company [...] often do you attend chur ch or nondenominational services? 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 - Endocrinology - [place] [address] [place] [address] David Salmon MD #[address] [address] 11/24/2024 2:40 PM CDT Telemedicine [facility] [address] [place] [address] 01/03/2025 11:30 AM CDT Office Visit [facility] Neurology - [place] [address] [place] [address] Rachelle Nava, SANITATION WORKER HOSING MACHINERY, COMPACT ASSEMBLER [address] [place] [address] 03/04/2025 3:10 PM MINE EXPLORATION ENGINEER Lab [facility] Primary Care - [place] [address] [place] [address] [facility] 03/04/2025 3:30 PM MINE EXPLORATION ENGINEER Office Visit [facility] Primary Care - [place] [address] [place] [address] Tani Biggs, [facility] [address] [place] [address] 03/17/2025 1:30 PM MINE EXPLORATION ENGINEER [facility] [address] [place] [phone] Melony Asif PAC [address] [place] [address] Discharge Disposition: Discharged to home or Selfcare 03/25/2025 1:20 PM MINE EXPLORATION ENGINEER Office Visit [facility] Cancer Center Oncology Services [address] [place] [phone] Melony Asif Stacey, PAC [address] [place] [address] Discharge Disposition: Discharged to home or Selfcare 04/25/2025 2:00 PM MINE EXPLORATION ENGINEER Office Visit [facility] Cardiology - [place] [address] [place] [address] Laisha Griffin, DO [address] [address] 07/18/2025 1:00 PM CDT Office Visit [facility] Pulmonology & Sleep Medicine [facility] [address] [place] [address] Dom Quiñonez MD [address] [place] [address] documented as of this encounter Goals Goal [...] change Department associated with goal: [facility] Steps to achieve goal: [...] diet Depression Depression Improving(0 03/15/2022 2:27 PM MINE EXPLORATION ENGINEER) No Breanne Saldana LCSW Note: Goal/Objective: Decrease [...] change Department associated with goal: [facility] Steps to achieve goal: [...] PHQ-9 Depression Total Score: 025 1:00 PM CDT documented as of this encounter Care Teams Tag Maker Relationship Specialty Start Date End Date Tani Biggs, [facility] [address] [place] [address] PCP - General Physician Assistant Project Manager 05/31/24 Phil Jacobo MD [address] [place] [address] Consulting Physician Neurology 03/07/21 Rajiv Mccormack, KELI [address] [place] [address] Nurse Practitioner Gastroenterology 03/07/21 Alize Acosta APRN, MONITORING MANAGER [address] [place], [place] [phone] [facility] ([facility]AC) WOOL BROKER Advanced Practice Nurse 08/30/21 David Salmon MD #[address] [address] Consulting Physician Endocrinology 01/15/22 [facility] MD [facility] [address] [address] Consulting Physician Colon and Rectal Surgery 09/20/22 Dom Quiñonez MD [address] [place] [address] Consulting Physician Pulmonary Disease 11/19/21 Rachelle Nava APRN, COMPACT ASSEMBLER [address] [place] [address] Nurse Practitioner Advanced Practice Nurse 07/19/22 Sharri Gaspar MD 2 [facility] [place] [address] [address] Consulting Physician Cardiology 04/26/24 Amber Aldrich APRN, MONITORING MANAGER [address] [place] [address] Nurse Practitioner Cardiology 07/30/24 documented as of this encounter
--- OUTSIDE RECORDS SUMMARY | 2024-11-16 13:25 | XMS_ITS | Clinical Summary ---
Author Organization [facility] Address [address] [place] [address] Phone Care Team Providers Care Fish Butcher Name Role Phone Unavailable Primary Care Provider [...] by mouth 2 times daily. Active Insulin [place], Disposable, (BD Ultra-Fine Short Pen Needle) 31 [...] with breakfast. Active naloxone (NARCAN) 4 mg/spray [place], Non-Aerosol Administer 4 mg in one nostril [...] Comments Blood Pressure 115/66 01/28/2024 4:25 AM CASTING DIRECTOR Pulse 79 01/28/2024 4:25 AM CASTING DIRECTOR Temperature 36.9 C (98.4 F) 01/28/2024 4:25 AM CASTING DIRECTOR Respiratory Rate 16 01/28/2024 4:25 AM CASTING DIRECTOR Oxygen Saturation 100% 01/28/2024 4:25 AM CASTING DIRECTOR Inhaled Oxygen Concentration - - Weight 77.9 kg (171 lb 11.2 oz) 01/25/2024 2:00 AM CASTING DIRECTOR Height 162.6 cm (5' 4) 01/25/2024 2:00 AM CASTING DIRECTOR Body Mass Index 29.47 01/25/2024 2:00 AM CASTING DIRECTOR Plan of Treatment Health Maintenance Due Date [...] Comments COLONOSCOPY REPORT 01/27/2024 10 :31 AM CASTING DIRECTOR HEMOGLOBIN A1C Stat 01/25/2024 8:08 AM CASTING DIRECTOR from Last 3 Months or Most Recently Relevant to Health Maintenance Results * COLONOSCOPY REPORT (01/27/2024 10:31 AM CASTING DIRECTOR) Narrative Procedure Note Roman Pang MD - 01/27/2024 10:31 AM CST [facility] Endoscopy Patient Name: Jodie Sutton Procedure [...] of Addenda: [address]; [place] [address] Roman Pang MD GI PROCEDURE ORDERABLES Final Re sult * HEMOGLOBIN A1C (01/25/2024 8:08 AM CASTING DIRECTOR) HEMOGLOBIN A1C 5.3 <5.7 % 01/25/2024 2:20 PM CASTING DIRECTOR [facility] EST. AVG GLUCOSE, A1C 105 mg/dL 01/25/2024 2:20 PM [facility] Blood Venipuncture / Unknown 01/25/2024 8:08 AM CASTING DIRECTOR 01/25/2024 8:12 AM CASTING DIRECTOR Narrative [facility] - 01/25/2024 2:20 PM CASTING DIRECTOR HGB A1C INTERPRETATION NORMAL: <5.7% PRE-DIABETES: 5.7 - 6.4% DIABETES: 6.5% OR GREATER Scooter Whitley MD CHEMISTRY ORDERABLES Final Re sult [facility] CLIA# [id number] [address] [place] [address] from Last 3 Months or Most Recently Relevant to Health Maintenance Insurance MEDICAID [place] [facility] Advance Directives For more information, please contact: [phone] * Full Code (Latest Code Status on File) Date Activated Date Inactivated Comments 01/24/2024 11:01 PM 01/28/2024 4:29 PM
--- OUTSIDE RECORDS SUMMARY | 2024-11-16 13:25 | XMS_ITS | Encounter Summary ---
Author Organization [facility] Address [address] [place] [address] Phone Care Team Providers Care Radiation Control Worker Name Role Phone Jackeline Dimas TUBE BUILDING MACHINE OPERATOR, PRINCIPAL JAVA DEVELOPER Primary Care Provider Phil Jacobo MD Unavailable [phone] Rajiv Mccormack NP Unavailable Unavailable Alize Acosta TUBE BUILDING MACHINE OPERATOR, PRINCIPAL JAVA DEVELOPER Unavailable [phone] Dayo Chaney MD Unavailable Juanita Hauser RN Unavailable UnavailDavid Alexandre MD Unavailable Emilia Tang MD Primary Care Provider [phone] Maurilio Farley MD Unavailable Physician, Candida Davis MD Unavailable Rebeka Trinidad MD Primary Care Provider + [phone] Dom Quiñonez MD Unavailable Rachelle Nava TUBE BUILDING MACHINE OPERATOR, SPIN INSTRUCTOR Unavailable + [phone] Irais Naylor TUBE BUILDING MACHINE OPERATOR, PRINCIPAL JAVA DEVELOPER Unavailable + [phone] Lorri Leo TUBE BUILDING MACHINE OPERATOR, PRINCIPAL JAVA DEVELOPER Primary Care Provider [phone] Rebeka Trinidad MD Primary Care Provider + [phone] AhmetLorri Annetta TUBE BUILDING MACHINE OPERATOR, [facility] Primary Care Provider + [phone] Sharri Gaspar MD Unavailable Tani Biggs [facility] Primary Care Provider [phone] Amber Aldrich TUBE BUILDING MACHINE OPERATOR, [facility] Unavailable Reason for Visit * Reason Comments Medication Refill Encounter Details Date Type Department Care Team (Late Contact Info) Description 01/14/2022 Refill [facility] - Primary Care - [place] [address] [place] [address] Jackeline Dimas TUBE BUILDING MACHINE OPERATOR, [facility] [address] [place] [address] Medication Refill Social History Tobacco [...] 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 Unable to assess 01/16/2022 3:15 PM TONGUE AND GROOVE MACHINE FEEDER documented as of this encounter Plan of Treatment Upcoming Encounters Date Type Department Care Team (Late Contact Info) Description 11/17/2024 2:00 PM CDT Telemedicine [facility] [address] [place] [address] Alize Acosta, TUBE BUILDING MACHINE OPERATOR, PRINCIPAL JAVA DEVELOPER [address] [place] [address] 11/18/2024 3:45 PM CDT Office Visit [facility] - Endocrinology - [place] [address] [place] [address] David Salmon MD #[address] [address] 11/24/2024 2:40 PM CDT Telemedicine [facility] [address] [place] [address] 01/03/2025 11:30 AM CDT Office Visit [facility] Neurology - [place] [address] [place] [phone] Rachelle Nava, TUBE BUILDING MACHINE OPERATOR, SPIN INSTRUCTOR [address] [place] [address] 03/04/2025 3:10 PM TONGUE AND GROOVE MACHINE FEEDER Lab [facility] Primary [facility] - [place] [address] [place] [address] [facility] 03/04/2025 3:30 PM TONGUE AND GROOVE MACHINE FEEDER Office Visit [facility] Primary [facility] - [place] [address] [place] [address] Tani Biggs PAC [address] [place] [address] 03/17/2025 1:30 PM TONGUE AND GROOVE MACHINE FEEDER Lab [facility] Cancer Center Oncology Services [address] [place] [address] Melony Asif August, PAC [address] [place] [address] Discharge Disposition: Discharged to home or Selfcare 03/25/2025 1:20 PM TONGUE AND GROOVE MACHINE FEEDER Office Visit [facility] Cancer Center Oncology Services [address] [facility] [place] [address] Melony Asif Stacey, PAC [address] [place] [address] Discharge Disposition: Discharged to home or Selfcare 04/25/2025 2:00 PM TONGUE AND GROOVE MACHINE FEEDER Office Visit [facility] - Cardiology - [place] [address] [place] [address] Laisha Griffin, DO [address] [address] 07/18/2025 1:00 PM CDT Office Visit [facility] - Pulmonology & Sleep Medicine [facility] [address] [place] [address] Dom Quiñonez MD [address] [place] [address] documented as of this encounter Goals Goal [...] as recommended. Depression Depression Improving( 2:27 PM TONGUE AND GROOVE MACHINE FEEDER) No Breanne Saldana LCSW Note: Goal/Objective: Decrease [...] 19 04/18/2024 04/18/2024 04/18/2024 10:4 7 PM TONGUE AND GROOVE MACHINE FEEDER Respiratory Rule-Out 05/06/2024 05/06/2024 025 9:20 AM TONGUE AND GROOVE MACHINE FEEDER COVID - 19 05/06/2024 05/06/2024 05/06/2024 9:19 AM TONGUE AND GROOVE MACHINE FEEDER Assessment Noted Time PHQ-9 Depression Total Score: 0 09/01/19 20 11:58 AM CDT documented as of this encounter Care Teams Radiation Control Worker Relationship Specialty Start Date End Date Jackeline Dimas, TUBE BUILDING MACHINE OPERATOR, PRINCIPAL JAVA DEVELOPER [address] [place] [address] PCP - General Advanced Practice Nurse 07/31/17 Emilia Tang MD [address] [place] [address] PCP - General Family Medicine 06/07/22 03/25/23 Rebeka Trinidad MD [address] [place] [address] PCP - General Family Medicine 03/26/23 03/29/24 Lorri Leo APRN, PRINCIPAL JAVA DEVELOPER [address] [place] [address] PCP - General Certified Nurse Practitioner 03/30/24 04/20/24 Rebeka Trinidad MD [address] [place] [address] PCP - General Family Medicine 04/21/24 04/21/24 Lorri Leo TUBE BUILDING MACHINE OPERATOR, PRINCIPAL JAVA DEVELOPER [address] [place] [address] PCP - General Certified Nurse Practitioner 04/22/24 05/30/24 Tani Biggs PAC [address] [place] [address] PCP - General Physician Cvt Tech 05/31/24 Phil Jacobo MD [address] [place] [address] Consulting Physician Neurology 03/07/21 Rajiv Mccormack, LAMINATION OPERATOR [address] [place] [address] Nurse Practitioner Gastroenterology 03/07/21 Alize Acosta, TUBE BUILDING MACHINE OPERATOR, PRINCIPAL JAVA DEVELOPER [address] [place] [address] Virtual Advanced Care (VAC) MANAGER SALT Advanced Practice Nurse 08/30/21 Dayo Chaney MD [address] [place] [address] Baking Assistant Cardiovascular Disease - Cardiology 09/20/21 02/12/24 Juanita Mercado RN [place] Registered Nurse Cardiology 12/24/21 02/12/24 David Salmon MD #[address] [address] Consulting Physician Endocrinology 01/15/22 Maurilio Farley MD #[address] [address] Consulting Physician Colon and Rectal Surgery 09/20/22 Physician, Candida Davis MD [address] [place] [address] Family Medicine 01/25/22 03/18/23 Dom Quiñonez MD [address] [place] [address] Consulting Physician Pulmonary Disease 11/19/21 Rachelle Nava, TUBE BUILDING MACHINE OPERATOR, SPIN INSTRUCTOR [address] [place] [address] Nurse Practitioner Advanced Practice Nurse 07/19/22 Irais Naylor APRN, PRINCIPAL JAVA DEVELOPER #[address] [facility] [address] [place] [address] Nurse Practitioner Cardiology 06/27/23 07/29/24 Sharri Gaspar MD 2 [facility] [facility] [address] [place] [address] Consulting Physician Cardiology 04/26/24 Amber Aldrich APRN, PRINCIPAL JAVA DEVELOPER #2 [facility] [place] [address] Nurse Practitioner Cardiology 07/30/24 documented as of this encounter
--- OUTSIDE RECORDS SUMMARY | 2024-11-16 13:25 | XMS_ITS | Encounter Summary ---
Author Organization [facility] Address [address] [place] [address] Phone Care Team Providers Care Distribution Specialist Name Role Phone Phil Jacobo MD Unavailable [phone] Rajiv Mccormack ADVISOR TO COMMAND IN COMBAT Unavailable Unavailable Alize Acosta APRN, METAL RIVET MACHINE OPERATOR Unavailable David Salmon MD Unavailable Maurilio Farley MD Unavailable Dom Quiñonez MD Unavailable Rachelle Nava APRN, REFERRAL MANAGEMENT LIAISON Unavailable + [phone] Sharri Gaspar MD Unavailable Tani Biggs PAC Primary Care Provider [phone] Amber Aldrich RETAIL RECEIVING CLERK, METAL RIVET MACHINE OPERATOR Unavailable Encounter Details Date Type Department Care Team (Late st Contact Info) Description 11/16/2024 Documentation Only [facility] [address] [place] [address] Alize Acosta APRN, METAL RIVET MACHINE OPERATOR [address] [place] [address] Social History Tobacco Use Types Packs/Day Years Used Date Smoking Tobacco: Some Days Cigarettes 1 37.1 Started: 1984; Last attempted to quit: 04/12/2021 Passive Smoke Exposure: Never Smokeless Tobacco: Never Alcohol Use Standard Drinks/Week Comments Not Currently 0 (1 standard drink = 0.6 oz pur e alcohol) Last drink in 2020 [facility] Utilities Answer Date Recorded In the past 12 months has e [employer], gas, oil, or water [employer] threatened to shut off services in your home? No 03/22/2024 Social Connection and Isolation Panel Answer Date Recorded In a typical week, how many times do you talk on the phone with family, friends, or neighbors? Once a week 03/22/19 How often do you get togethe r with friends or relatives? Never 03/22/2024 How often do you attend chur ch or gnosticist services? 1 to 4 times per year 03/22/2024 Do you belong to any clubs o r organizations such as orthodoxy groups, unions, fraternal or athletic groups, or [...] Recorded Total Score - Questions 1-9 24 07/[address] [facility] of Occupat ional Health - Occupational Stress [...] any time in the past 12 m [facility], were you homeless or living in a group home (including now)? 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 Followed by Cardiology. CPM. Low-salt diet. Daily weights- to notify the office if 2-3lb weight gain overnight or 5lbs in a week. Importance of medication compliance and BP control. --Concern for recent weight gain/orthopnea. Cardiology aware. Furosemide recently restarted. Due for BMP (to get done cedrick). Upcoming tests as scheduled. --Can consider adding a BNP/chest xray for evaluation. Type 2 diabetes mellitus without complication, without long-term current use of insulin Last A1C uncontrolled. Recent blood sugars appear well-controlled. Followed by Endo--upcoming appt. CPM. Monitor for S&S of hypoglycemia. Healthy diet/exercise. Uncomplicated asthma, unspecified asthma severity, unspecified whether persistent - albuterol (PROVENTIL, VENTOLIN) (2.5 MG/3ML) 0.083% Nebulizer Soln; 3 mL by Nebulization route every 4 hours as needed for Wheezing, Shortness of Breath or Cough. Barriers/SDoH - none Concerns - none Vitals Parameters reviewed - yes Scheduled [facility] calls-- RN Calls occurring - Every other week ; IDT Meeting - 3 month documented in this encounter Plan of Treatment Upcoming Encounters Date Type Department Care Team (Late st Contact Info) Description 11/17/2024 2:00 PM CDT Telemedicine [facility] [address] [place] [address] Alize Acosta APRN, CNP [address] [place] [address] 11/18/2024 3:45 PM CDT Office Visit [facility] Medical [facility] - Endocrinology - [place] [address] [place] [address] David Salmon MD #[address] [phone] 11/24/2024 2:40 PM CDT Telemedicine [facility] [address] [place] [address] 01/03/2025 11:30 AM CDT [facility] [place] [address] [place] [address] Rachelle Nava, RETAIL RECEIVING CLERK, REFERRAL MANAGEMENT LIAISON [address] [place] [address] 03/04/2025 3:10 PM SENIOR BIOINFORMATICS SCIENTIST Lab [facility] Primary Care - [place] [address] [place] [address] [facility] 03/04/2025 3:30 PM SENIOR BIOINFORMATICS SCIENTIST Office Visit [facility] Primary Care - [place] [address] [place] [address] Tani Biggs, [place] [address] [place] [address] 03/17/2025 1:30 PM SENIOR BIOINFORMATICS SCIENTIST Lab [facility] Oncology Services [address] [place] [phone] Melony Asif, ESTRELLITA [address] [place] [address] Discharge Disposition: Discharged to home or Selfcare 03/25/2025 1:20 PM SENIOR BIOINFORMATICS SCIENTIST [facility] [address] [place] [address] Asif Melony Stacey, PAC [address] [place] [address] Discharge Disposition: Discharged to home or Selfcare 04/25/2025 2:00 PM SENIOR BIOINFORMATICS SCIENTIST Office Visit [facility] - Cardiology - [place] [address] [place] [address] Laisha Griffin, DO [address] [address] 07/18/2025 1:00 PM CDT Office Visit [facility] - Pulmonology & Sleep Medicine [facility] [address] [place] [address] Dom Quiñonez MD [address] [place] [address] documented as of this encounter Goals Goal Patient Goal Type Associated Problems Recent Progress Patient-Stated? Author ACTIVITY Activity No change(08/08 2:42 PM CDT) Yes Maritza Vanegas, RN Note: Bonny will walk five days a week. Goal Reviewed with: Bonny Readiness to change: Department associated with goal: [facility] ONCALL ADVANCED CARE Steps to achieve goal: Walking 5 days a week I want to be able to be around people and feel less depressed. Behavioral Health Worsening(0 09/22/2023 3:12 PM CDT) Yes Hilda Tinajero SCREEN TACKER Note: Goal/Objective: Decrease symptoms of depression and anxiety. Anticipated Time Frame for Goal Completion: 3 months Goal Reviewed with: patient Readiness to change: Thinking about making a change Department associated with goal: [facility] SERVICES Steps to [...] Depression Depression Improving(0 03/15/2022 2:27 PM SENIOR BIOINFORMATICS SCIENTIST) No Breanne Saldana LCSW Note: Goal/Objective: Decrease symptoms of depression associated with grief and loss as well as the increase of anxiety and panic with follow up with out patient counseling. Anticipated Time Frame for Goal Completion: 2 week Depression and Anxiety Depression On track(07/13 4:30 PM CDT) Yes Ariela Hurtado SCREEN TACKER Note: I don't have no energy Goal/Objective: Decrease depression. Anticipated Time Frame for Goal Completion: 6 months Goal Reviewed with: patient Readiness to change: Ready to change Department associated with goal: [facility] Steps to [...] documented as of this encounter Care Teams Distribution Specialist Relationship Specialty Start Date End Date Tani Biggs, PAC [address] [place] [phone] PCP - General Physician Business Operations Manager 05/31/24 Phil Jacobo MD #[address] [place] [address] Consulting Physician Neurology 03/07/21 Rajiv Mccormack NP #[address] [place] [address] Nurse Practitioner Gastroenterology 03/07/21 Alize Acosta, RETAIL RECEIVING CLERK, METAL RIVET MACHINE OPERATOR [facility] [place] [address] Virtual Advanced Care (VAC) CORRECTIONAL COUNSELOR Advanced Practice Nurse 08/30/21 David Salmon MD #[address] [phone] Consulting Physician Endocrinology 01/15/22 Maurilio Farley MD #[address] [phone] Consulting Physician Colon and Rectal Surgery 09/20/22 Dom Quiñonez MD #2 [place] [address] Consulting Physician Pulmonary Disease 11/19/21 Rachelle Nava APRN, REFERRAL MANAGEMENT LIAISON [address] [place] [address] Nurse Practitioner Advanced Practice Nurse 07/19/22 Sharri Gaspar MD [address] [address] Consulting Physician Cardiology 04/26/24 Amber Aldrich APRN, METAL RIVET MACHINE OPERATOR [address] [place] [address] Nurse Practitioner Cardiology 07/30/24 documented as of this encounter
--- OUTSIDE RECORDS SUMMARY | 2024-11-16 13:26 | XMS_ITS | Encounter Summary ---
Author Organization [facility] Address [address] [place] [address] Phone Care Team Providers Care Cutter Grind Tool Technician Name Role Phone Phil Jacobo MD Unavailable [phone] Rajiv Mccormack NP Unavailable Unavailable Alize Acosta APRN, CYLINDER BATCHER Unavailable [phone] David Salmon MD Unavailable Maurilio Farley MD Unavailable Dom Quiñonez MD Unavailable Rachelle Nava HAND BOBBIN CLEANER, AEROPHYSICIST Unavailable + [phone] Irais Naylor HAND BOBBIN CLEANER, CYLINDER BATCHER Unavailable + [phone] Lorri Leo APRN, CYLINDER BATCHER Primary Care Provider + [phone] Rebeka Trinidad MD Primary Care Provider + [phone] Lorri Leo HAND BOBBIN CLEANER, CYLINDER BATCHER Primary Care Provider + [phone] Sharri Gaspar MD Unavailable Tani Biggs PAC Primary Care Provider [phone] Amber Aldrich HAND BOBBIN CLEANER, CYLINDER BATCHER Unavailable Reason for Referral * PT/OT/ST (Routine) - Open Specialty Diagnoses / Procedures Referred By Harika t Referred To Contact Physical Therapy Diagnoses Spinal stenosis, lumbar region without neurogenic claudication Li Castañeda APN, CYLINDER BATCHER [address] [place] [address] Phone: tel: fax: [facility] [address] [facility], [address] [address] Phone: tel: fax: Referral ID Status Reason Start Date Expiration Date Visits Re quested Visits Authorized [id number] Open 04/08/2024 50 10 Scheduling Instructions EN MACHINERY MECHANIC Encounter Details Date Type Department Care Team (Latest Contact Info) Description 04/08/2024 Transcribe Orders [facility] [address] [place] [address] Li Castañeda APN, CYLINDER BATCHER [address] [place] [address] Spinal stenosis, lumbar region without neurogenic claudication (Primary Dx) Social History Tobacco Use Types Packs/Day Years Used Date Smoking Tobacco: Every Day Cigarettes 1 37.1 Started: 1984; Last attempted to quit: 04/12/2021 Smokeless Tobacco: Never Alcohol Use Standard Drinks/Week Comments Not Currently 0 (1 standard drink = 0.6 oz pur e alcohol) Last drink in 2020 [facility] Utilities Answer Date Recorded In the past 12 months has [employer], gas, oil, or water [employer] threatened to shut off services in your [...] any clubs o r organizations such as nondenominational groups, unions, fraternal or athletic groups, or [...] Total Score - Questions 1-9 21 03/10 [facility] - Occupational Stress Questionnaire Answer Date [...] in a longterm (including now)? No 03/24/2023 Housing Stability Vital Sign Answer Jovany e Recorded In the last 12 months, was t here a time when you were not able to pay the mortgage or rent on time? Yes 03/22/2024 In the past 12 months, how m any times have you moved where you were living? 0 03/22/2024 At any time in the past 12 m [facility], were you homeless or living in a longterm (including now)? 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 on file Not on file documented as of this encounter Plan of Treatment Upcoming Encounters Date Type Department Care Team (Late st Contact Info) Description 11/17/2024 2:00 PM CDT Telemedicine [facility] [address] [place] [address] Alize Acosta, RUSSELL, CYLINDER BATCHER [address] [place] [address] 11/18/2024 3:45 PM CDT [facility] - Endocrinology - [place] [address] [place] [address] David Salmon MD #[address] [phone] 11/24/2024 2:40 PM CDT Telemedicine [facility] [address] [place] [address] 01/03/2025 11:30 AM CDT [facility] #[address] [place] [address] Rachelle Nava APRN, AEROPHYSICIST [address] [place] [address] 03/04/2025 3:10 PM GARDEN MACHINERY MECHANIC Lab [facility] Primary Care - [place] [facility] [place] [address] [facility] 03/04/2025 3:30 PM GARDEN MACHINERY MECHANIC Office Visit [facility] Primary Care - [place] [address] [place] [address] Tani Biggs, ESTRELLITA [address] [place] [address] 03/17/2025 1:30 PM GARDEN MACHINERY MECHANIC [facility] [address] [place] [address] Melony Asif PAC [address] [place] [address] Discharge Disposition: Discharged to home or Selfcare 03/25/2025 1:20 PM GARDEN MACHINERY MECHANIC [facility] [address] [place] [address] Melony Asif, PAC [address] [place] [address] Discharge Disposition: Discharged to home or Selfcare 04/25/2025 2:00 PM GARDEN MACHINERY MECHANIC Office Visit [facility] Medical [facility] - Cardiology - [place] [address] [place] [address] Laisha Griffin, DO [address] [address] 07/18/2025 1:00 PM CDT Office Visit [facility] Pulmonology & Sleep Medicine [facility] [address] [place] [address] Dom Quiñonez MD [address] [place] [address] Scheduled Referrals Name Type Priority Associated Diagnoses [...] Readiness to change: Department associated with goal: [facility] ONCALL ADVANCED CARE Steps to achieve goal: [...] diet Depression Depression Improving(0 03/15/2022 2:27 PM GARDEN MACHINERY MECHANIC) No Les, Breanne A, BINDERY MACHINE SETTER Note: Goal/Objective: Decrease symptoms of depression associated [...] 19 04/18/2024 04/18/2024 04/18/2024 10:4 7 PM GARDEN MACHINERY MECHANIC Respiratory Rule-Out 05/06/2024 05/06/2024 025 9:20 AM GARDEN MACHINERY MECHANIC COVID - 19 05/06/2024 05/06/2024 05/06/2024 9:19 AM GARDEN MACHINERY MECHANIC Assessment Noted Time PHQ-9 Depression Total Score: 21 025 4:05 PM GARDEN MACHINERY MECHANIC documented as of this encounter Care Teams Cutter Grind Tool Technician Relationship Specialty Start Date End Date Lorri Leo APRN, CYLINDER BATCHER [address] [place] [address] PCP - General Certified Nurse Practitioner 03/30/24 04/20/24 Rebeka Trinidad MD [address] [place] [address] PCP - General Family Medicine 04/21/24 04/21/24 Lorri Leo APRN, CYLINDER BATCHER [address] [place] [address] PCP - General Certified Nurse Practitioner 04/22/24 05/30/24 Tani Biggs PAC [address] [place] [address] PCP - General Physician Director Of Digital Marketing 05/31/24 Phil Jacobo MD #[address] [place] [address] Consulting Physician Neurology 03/07/21 Rajiv Mccormack, KELI [address] [place] [address] Nurse Practitioner Gastroenterology 03/07/21 Alize Acosta APRN, CYLINDER BATCHER [address] [place] [address] Virtual Advanced Care (VAC) APPLICATION SPEC Advanced Practice Nurse 08/30/21 David Salmon MD #[address] [phone] Consulting Physician Endocrinology 01/15/22 Maurilio Farley MD [address] [address] Consulting Physician Colon and Rectal Surgery 09/20/22 Dom Quiñonez MD #2 [place] [address] Consulting Physician Pulmonary Disease 11/19/21 Rachelle Nava APRN, AEROPHYSICIST #[address] [place] [address] Nurse Practitioner Advanced Practice Nurse 07/19/22 Irais Naylor APRN, CYLINDER BATCHER #2 [facility] [address] Nurse Practitioner Cardiology 06/27/23 07/29/24 Sharri Gaspar MD 2 [facility] [address] [address] Consulting Physician Cardiology 04/26/24 Amber Aldrich APRN, CYLINDER BATCHER [address] [place] [address] Nurse Practitioner Cardiology 07/30/24 documented as of this encounter
--- OUTSIDE RECORDS SUMMARY | 2024-11-16 13:26 | XMS_ITS | Encounter Summary ---
Author Organization [facility] Address [address] [place] [address] Phone Care Team Providers Care District Resource Officer Name Role Phone Phil Jacobo MD Unavailable [phone] Rajiv Mccormack NP Unavailable Unavailable Alize Acosta APRN, SEWER CLEANER Unavailable [phone] Dayo Chaney MD Unavailable Juanita Hauser RN Unavailable UnavailDavid Alexandre MD Unavailable Maurilio Farley MD Unavailable Rebeka Trinidad MD Primary Care Provider + [phone] Dom Quiñonez MD Unavailable Rachelle Nava CHILD CARE DIRECTOR, POT FLUXER Unavailable + [phone] Irais Naylor CHILD CARE DIRECTOR, SEWER CLEANER Unavailable + [phone] Lorri Leo CHILD CARE DIRECTOR, SEWER CLEANER Primary Care Provider + [phone] Rebeka Trinidad MD Primary Care Provider + [phone] Lorri Leo CHILD CARE DIRECTOR, SEWER CLEANER Primary Care Provider + [phone] Sharri Gaspar MD Unavailable Tani Biggs [facility] Primary Care Provider + [phone] Amber Aldrich APRN, CNP Unavailable Reason for Visit * Reason Comments Medication Refill Encounter Details Date Type Department Care Team (Late st Contact Info) Description 08/05/2023 Refill [facility] - Primary Care - [place] [address] [place] [address] Rebeka Trinidad MD [address] [place] [address] Medication Refill Social History Tobacco Use Types Packs/Day Years Used Date Smoking Tobacco: Former Cigarettes 1 37.1 1 985 - 04/12/2021 Smokeless Tobacco: Never Alcohol Use Standard Drinks/Week Comments Not Currently 0 (1 standard drink = 0.6 oz pur e alcohol) last drank 2020 [facility] Utilities Answer Date Recorded In the past 12 months has [employer] electric, gas, oil, or water [employer] threatened to shut off services in your home? No 03/24/2023 Social Connection and Isolation Panel Answer Date Recorded In a typical week, how many times do you talk on the phone with family, friends, or neighbors? Once a week 03/24/2023 How often do you get togethe r with friends or relatives? Never 03/24/2023 How often do you attend [facility] or orthodoxy services? 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 file Not [...] Dept 06/04/23 Office Visit Rebeka Trinidad MD [facility] 05/09/23 Office Visit Rebeka Trinidad MD [facility] 03/26/23 Office Visit Rebeka Trinidad MD [facility] 02/06/23 Office Visit Eimlia Tang MD [facility] Showing recent visits within past 182 days [...] CDT Telemedicine [facility] [address] [place] [address] Alize Acosta, CHILD CARE DIRECTOR, SEWER CLEANER [address] [place] [address] 11/18/2024 3:45 PM CDT Office Visit [facility] - Endocrinology - [place] [address] [place] [address] David Salmon MD #[address] [address] 11/24/2024 2:40 PM CDT Telemedicine [facility] [address] [place] [address] 01/03/2025 11:30 AM CDT Office Visit [facility] Neurology - [place] [address] [place] [address] Rachelle Nava, CHILD CARE DIRECTOR, POT FLUXER [address] [place] [address] 03/04/2025 3:10 PM CW OPERATOR Lab [facility] Primary [facility] - [place] [address] [place] [address] [facility] 03/04/2025 3:30 PM CW OPERATOR Office Visit [facility] Primary [facility] - [place] [address] [place] [address] Tani Biggs PAC [address] [place] [address] 03/17/2025 1:30 PM CW OPERATOR Lab [facility] Oncology Services [address] [place] [address] Melony Asif PAC [address] [place] [address] Discharge Disposition: Discharged to home or Selfcare 03/25/2025 1:20 PM CW OPERATOR Office Visit [facility] Oncology Services [address] [place] [address] Melony Asif August, PAC [address] [place] [address] Discharge Disposition: Discharged to home or Selfcare 04/25/2025 2:00 PM CW OPERATOR Office Visit [facility] - Cardiology - [place] [address]2 [place] [address] Laisha Griffin, DO [address] [address] 07/18/2025 1:00 PM CDT Office Visit [facility] - Pulmonology & Sleep Medicine - [place] [address]2 [place] [address] Dom Quiñonez MD #2 [place] [address] documented as of this encounter Goals Goal [...] change Department associated with goal: [facility] Steps to achieve [...] diet Depression Depression Improving(0 03/15/2022 2:27 PM CW OPERATOR) No Breanne Saldana LCSW Note: Goal/Objective: [...] 19 04/18/2024 04/18/2024 04/18/2024 10:4 7 PM CW OPERATOR Respiratory Rule-Out 05/06/2024 05/06/2024 025 9:20 AM CW OPERATOR COVID - 19 05/06/2024 05/06/2024 05/06/2024 9:19 AM CW OPERATOR Assessment Noted Time PHQ-9 Depression Total Score: 18 023 9:24 AM CDT documented as of this encounter Care Teams District Resource Officer Relationship Specialty Start Date End Date Rebeka Trinidad MD [address] [place] [address] PCP - General Family Medicine 03/26/23 03/29/24 Lorri Leo CHILD CARE DIRECTOR, SEWER CLEANER [address] [place] [address] PCP - General Certified Nurse Practitioner 03/30/24 04/20/24 Rebeka Trinidad MD [address] [place] [address] PCP - General Family Medicine 04/21/24 04/21/24 Lorri Leo APRN, SEWER CLEANER [address] [place] [address] PCP - General Certified Nurse Practitioner 04/22/24 05/30/24 Tani Biggs PAC [address] [place] [address] PCP - General Physician Passenger Booking Clerk 05/31/24 Phil Jacobo MD #2 [place] [address] Consulting Physician Neurology 03/07/21 Rajiv Mccormack NP #2 [place] [address] Nurse Practitioner Gastroenterology 03/07/21 Alize Acosta APRN, SEWER CLEANER [address] [place] [address] Virtual Advanced Care (VAC) CONCILIATOR Advanced Practice Nurse 08/30/21 Dayo Chaney MD [address] [place] [address] Sweatband Separator Cardiovascular Disease - Cardiology 09/20/21 02/12/24 Juanita Mercado RN [place] Registered Nurse Cardiology 12/24/21 02/12/24 David Salmon MD #[address] [address] Consulting Physician Endocrinology 01/15/22 Maurilio Farley MD #[address] [address] Consulting Physician Colon and Rectal Surgery 09/20/22 Dom Quiñonez MD #2 [place] [address] Consulting Physician Pulmonary Disease 11/19/21 Rachelle Nava APRN, POT FLUXER #[address] [place] [address] Nurse Practitioner Advanced Practice Nurse 07/19/22 Irais Naylor APRN, SEWER CLEANER #[address] [address] Nurse Practitioner Cardiology 06/27/23 07/29/24 Sharri Gaspar MD 2 [facility] [place] [facility]. [address] [place] [address] Consulting Physician Cardiology 04/26/24 Amber Aldrich APRN, SEWER CLEANER [address] [place] [address] Nurse Practitioner Cardiology 07/30/24 documented as of this encounter
--- OUTSIDE RECORDS SUMMARY | 2024-11-16 13:26 | XMS_ITS | Encounter Summary ---
Author Organization [facility] Address [address] [place] [address] Phone Care Team Providers Care Makeup Editor Name Role Phone Jackeline Dimas SLICE PLUG CUTTER OPERATOR, MEDICAL INSURANCE VERIFIER Primary Care Provider Phil Jacobo MD Unavailable +[phone] Rajiv Mccormack NP Unavailable Unavailable Alize Acosta SLICE PLUG CUTTER OPERATOR, MEDICAL INSURANCE VERIFIER Unavailable +[phone] Dayo Chaney MD Unavailable Juanita Hauser RN Unavailable UnavailDavid Alexandre MD Unavailable Emilia Tang MD Primary Care Provider [phone] Maurilio Farley MD Unavailable Physician, Candida Davis MD Unavailable Rebeka Trinidad MD Primary Care Provider + [phone] Dom Quiñonez MD Unavailable Rachelle Nava SLICE PLUG CUTTER OPERATOR, LANGUAGE INSTRUCTOR Unavailable + [phone] Irais Naylor SLICE PLUG CUTTER OPERATOR, MEDICAL INSURANCE VERIFIER Unavailable + [phone] Lorri Leo SLICE PLUG CUTTER OPERATOR, MEDICAL INSURANCE VERIFIER Primary Care Provider [phone] Rebeka Trinidad MD Primary Care Provider + [phone] Ahmet Lorri Annetta SLICE PLUG CUTTER OPERATOR, [facility] Primary Care Provider + [phone] Sharri Gaspar MD Unavailable Kalyan Tani B [facility] Primary Care Provider [phone] Amber Aldrich APRN, [facility] Unavailable Reason for Visit * Reason Comments Medication Refill Encounter Details Date Type Department Care Team (Late st Contact Info) Description 03/31/2022 Refill [facility] - Endocrinology - [place] #[address] [place] [address] David Salmon MD #[address] [address] Medication Refill Social History Tobacco [...] 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 No / Unsure 04/01/2022 1:35 PM JACK WINDER documented as of this encounter Miscellaneous Notes * Telephone Encounter - Yesi Leggett RN - 04/01/2022 9:43 AM JACK WINDER Requested Prescriptions Pending Prescriptions Disp Refills ??? Glucose Blood (OneTouch Verio) Strip [Pharmacy Med Name: ONE TOUCH VERIO TEST ST(NEW)100S] 200 Strip Sig: TEST BLOOD SUGAR TWICE DAILY Next appt: 04/30/2022 WINDER documented in this encounter Plan of Treatment Upcoming Encounters Date Type Department Care Team (Late st Contact Info) Description 11/17/2024 2:00 PM CDT Telemedicine [facility] [address] [place] [address] Alize Acosta, SLICE PLUG CUTTER OPERATOR, MEDICAL INSURANCE VERIFIER [address] [place] [address] 11/18/2024 3:45 PM CDT Office Visit [facility] Medical [facility] - Endocrinology - [place] [address] [place] [address] David Salmon MD #[address] [address] 11/24/2024 2:40 PM CDT Telemedicine [facility] [address] [place] [address] 01/03/2025 11:30 AM CDT Office Visit [facility] - Neurology [facility] #2 [place] [address] Rachelle Nava APRN, LANGUAGE INSTRUCTOR #2 [place] [address] 03/04/2025 3:10 PM JACK WINDER Lab [facility] Primary Care - [address] [phone] Lab, [facility] 03/04/2025 3:30 PM JACK WINDER [facility] [place] [address] [place] [address] Tani Biggs, PAC [address] [place] [address] 03/17/2025 1:30 PM JACK WINDER Lab [facility] Oncology Services [address] [place] [address] Melony Asif Stacey, [facility] [address] [place] [address] Discharge Disposition: Discharged to home or Selfcare 03/25/2025 1:20 PM JACK WINDER Office Visit [facility] Oncology Services [address] [place] [address] Melony Asif Stacey, [facility] [address] [place] [address] Discharge Disposition: Discharged to home or Selfcare 04/25/2025 2:00 PM JACK WINDER Office Visit [facility] - Cardiology - [place] [address] [place] [address] Laisha Griffin, DO [address] [address] 07/18/2025 1:00 PM CDT Office Visit [facility] - Pulmonology & Sleep Medicine - [place] [address] [place] [address] Dom Quiñonez MD #2 [place] [address] documented as of this encounter Goals Goal [...] as recommended. Depression Depression Improving( 2:27 PM JACK WINDER) No Breanne Saldana LCSW Note: Goal/Objective: Decrease [...] 19 04/18/2024 04/18/2024 04/18/2024 10:4 7 PM JACK WINDER Respiratory Rule-Out 05/06/2024 05/06/2024 025 9:20 AM JACK WINDER COVID - 19 05/06/2024 05/06/2024 05/06/2024 9:19 AM JACK WINDER Assessment Noted Time PHQ-9 Depression Total Score: 24 022 3:31 PM JACK WINDER documented as of this encounter Care Teams Makeup Editor Relationship Specialty Start Date End Date Jackeline Dimas APRN, MEDICAL INSURANCE VERIFIER [address] [place] [address] PCP - General Advanced Practice Nurse 07/31/17 Emilia Tang MD [address] [place] [address] PCP - General Family Medicine 06/07/22 03/25/23 Rebeka Trinidad MD [address] [place] [address] PCP - General Family Medicine 03/26/23 03/29/24 Lorri Leo APRN, MEDICAL INSURANCE VERIFIER [address] [place] [address] PCP - General Certified Nurse Practitioner 03/30/24 04/20/24 Rebeka Trinidad MD [address] [place] [address] PCP - General Family Medicine 04/21/24 04/21/24 Lorri Leo APRN, MEDICAL INSURANCE VERIFIER [address] [place] [address] PCP - General Certified Nurse Practitioner 04/22/24 05/30/24 Tani Biggs, PAC [address] [place] [address] PCP - General Physician Viticulture Teacher 05/31/24 Phil Jacobo MD #2 [place] [address] Consulting Physician Neurology 03/07/21 Rajiv Mccormack, KELI #[address] [place] [address] Nurse Practitioner Gastroenterology 03/07/21 Alize Acosta, SLICE PLUG CUTTER OPERATOR, MEDICAL INSURANCE VERIFIER [address] [place] [address] Virtual [facility] Care (VAC) SENIOR MEDICAL DIRECTOR Advanced Practice Nurse 08/30/21 Dayo Chaney MD [address] [place] [address] Shingle Cutter Cardiovascular Disease - Cardiology 09/20/21 02/12/24 Juanita Mercado, [place] Registered Nurse Cardiology 12/24/21 02/12/24 David Salmon MD #[address] [phone] Consulting Physician Endocrinology 01/15/22 Maurilio Farley MD #[address] [address] Consulting Physician Colon and Rectal Surgery 09/20/22 PhysicianCandida MD [address] [place] [address] Family Medicine 01/25/22 03/18/23 Dom Quiñonez MD #2 [facility] [place] [address] Consulting Physician Pulmonary Disease 11/19/21 Rachelle Nava, SLICE PLUG CUTTER OPERATOR, LANGUAGE INSTRUCTOR #2 [facility] [place] [address] Nurse Practitioner Advanced Practice Nurse 07/19/22 Irais Naylor, SLICE PLUG CUTTER OPERATOR, MEDICAL INSURANCE VERIFIER #2 [facility], [place] [address] [place] [address] Nurse Practitioner Cardiology 06/27/23 07/29/24 Sharri Gaspar MD 2 [facility] [address] [place] [address] Consulting Physician Cardiology 04/26/24 Amber Aldrich, SLICE PLUG CUTTER OPERATOR, MEDICAL INSURANCE VERIFIER #[address] [place] [address] Nurse Practitioner Cardiology 07/30/24 documented as of this encounter
--- OUTSIDE RECORDS SUMMARY | 2024-11-16 13:26 | XMS_ITS | Encounter Summary ---
Author Organization [facility] Address [address] [place] [address] Phone Care Team Providers Care Night Filler Name Role Phone Jackeline Dimas OUTSIDE MEDICAL SALES REPRESENTATIVE, JOURNEYMAN GLAZIER Primary Care Provider Phil Jacobo MD Unavailable [phone] Rajiv Mccormack NP Unavailable Unavailable Alize Acosta OUTSIDE MEDICAL SALES REPRESENTATIVE, JOURNEYMAN GLAZIER Unavailable [phone] Dayo Chaney MD Unavailable Juanita Hauser RN Unavailable UnavailDavid Alexandre MD Unavailable Emilia Tang MD Primary Care Provider [phone] Maurilio Farley MD Unavailable Physician, Candida Davis MD Unavailable Rebeka Trinidad MD Primary Care Provider + [phone] Dom Quiñonez MD Unavailable Rachelle Nava OUTSIDE MEDICAL SALES REPRESENTATIVE, STUDENT DEVELOPMENT COORDINATOR Unavailable + [phone] Irais Naylor OUTSIDE MEDICAL SALES REPRESENTATIVE, JOURNEYMAN GLAZIER Unavailable + [phone] Lorri Leo OUTSIDE MEDICAL SALES REPRESENTATIVE, JOURNEYMAN GLAZIER Primary Care Provider [phone] Rebeka Trinidad MD Primary Care Provider + [phone] Ahmet Lorri M OUTSIDE MEDICAL SALES REPRESENTATIVE, [facility] Primary Care Provider + [phone] Sharri Gaspar MD Unavailable Tani Biggs [facility] Primary Care Provider + [phone] Amber Aldrich OUTSIDE MEDICAL SALES REPRESENTATIVE, [facility] Unavailable Reason for Visit * Reason Comments Medication Refill Encounter Details Date Type Department Care Team (Late st Contact Info) Description 03/30/[address] 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 No / Unsure 04/01/2022 1:35 PM RENEWABLE ENERGY TRADER documented as of this encounter Miscellaneous Notes * Telephone Encounter - Indira Lopez RN - 04/01/2022 8:58 AM RENEWABLE ENERGY TRADER Refill requested too soon. WABLE ENERGY TRADER documented in this encounter Plan of Treatment Upcoming Encounters Date Type Department Care Team (Late st Contact Info) Description 11/17/2024 2:00 PM CDT Telemedicine [facility] [address] [place] [address] Alize Acosta, OUTSIDE MEDICAL SALES REPRESENTATIVE, JOURNEYMAN GLAZIER [address] [place] [address] 11/18/2024 3:45 PM CDT [facility] - Endocrinology - [place] #[address] [place] [address] David Salmon MD #[address] [address] 11/24/2024 2:40 PM CDT Telemedicine [facility] [address] [place] [address] 01/03/2025 11:30 AM CDT [facility] [place] [address] [place] [address] Rachelle Nava, OUTSIDE MEDICAL SALES REPRESENTATIVE, STUDENT DEVELOPMENT COORDINATOR #[address] [place] [address] 03/04/2025 3:10 PM RENEWABLE ENERGY TRADER Lab [facility] - Primary Care - [place] [address] [place] [address] [facility] 03/04/2025 3:30 PM RENEWABLE ENERGY TRADER Office Visit [facility] - Primary Care - [place] [address] [place] [address] Tani Biggs PAC [address] [place] [address] 03/17/2025 1:30 PM RENEWABLE ENERGY TRADER Lab [facility] Oncology Services [address] [place] [address] AsifMelony August, PAC [address] [place] [address] Discharge Disposition: Discharged to home or Selfcare 03/25/2025 1:20 PM RENEWABLE ENERGY TRADER Office Visit [facility] Oncology Services [address] [place] [address] AsifMelony August, PAC [address] [place] [address] Discharge Disposition: Discharged to home or Selfcare 04/25/2025 2:00 PM RENEWABLE ENERGY TRADER Office Visit [facility] Medical [facility] - Cardiology - [place] [address] [place] [address] Laisha Griffin, DO [address] [address] 07/18/2025 1:00 PM CDT Office Visit [facility] - Pulmonology & Sleep Medicine [facility] #[address] [place] [address] Dom Quiñonez MD #2 [place] [address] documented as of this encounter Goals Goal [...] as recommended. Depression Depression Improving( 2:27 PM RENEWABLE ENERGY TRADER) No Breanne Saldana LCSW Note: Goal/Objective: Decrease [...] 19 04/18/2024 04/18/2024 04/18/2024 10:4 7 PM RENEWABLE ENERGY TRADER Respiratory Rule-Out 05/06/2024 05/06/2024 025 9:20 AM RENEWABLE ENERGY TRADER COVID - 19 05/06/2024 05/06/2024 05/06/2024 9:19 AM RENEWABLE ENERGY TRADER Assessment Noted Time PHQ-9 Depression Total Score: 24 022 3:31 PM RENEWABLE ENERGY TRADER documented as of this encounter Care Teams Night Filler Relationship Specialty Start Date End Date Jackeline Dimas APRN, JOURNEYMAN GLAZIER [address] [place] [address] PCP - General Advanced Practice Nurse 07/31/17 Emilia Tang MD [address] [place] [address] PCP - General Family Medicine 06/07/22 03/25/23 Rebeka Trinidad MD [address] [place] [address] PCP - General Family Medicine 03/26/23 03/29/24 Lorri Leo APRN, JOURNEYMAN GLAZIER [address] [place] [address] PCP - General Certified Nurse Practitioner 03/30/24 04/20/24 Rebeka Trinidad MD [address] [place] [address] PCP - General Family Medicine 04/21/24 04/21/24 Lorri Leo APRN, JOURNEYMAN GLAZIER [address] [place] [address] PCP - General Certified Nurse Practitioner 04/22/24 05/30/24 Tani Biggs, PAC [address] [place] [address] PCP - General Physician Property Assistant 05/31/24 Phil Jacobo MD #2 [place] [address] Consulting Physician Neurology 03/07/21 Rajiv Mccormack, KELI #[address] [place] [address] Nurse Practitioner Gastroenterology 03/07/21 Alize Acosta, OUTSIDE MEDICAL SALES REPRESENTATIVE, JOURNEYMAN GLAZIER [address] [place], [place] [address] Virtual Advanced Care (VAC) MUSIC PRODUCER Advanced Practice Nurse 08/30/21 Dayo Chaney MD [address] [place] [address] [facility]eder Thinner Cardiovascular Disease - Cardiology 09/20/21 02/12/24 Juanita Mercado RN [place] Registered Nurse Cardiology 12/24/21 02/12/24 David Salmon MD #[address] [address] Consulting Physician Endocrinology 01/15/22 Maurilio Farley MD #[address] [address] Consulting Physician Colon and Rectal Surgery 09/20/22 Physician, Candida Davis MD [address] [place] [address] Family Medicine 01/25/22 03/18/23 Dom Quiñonez MD #2 [place] [address] Consulting Physician Pulmonary Disease 11/19/21 Rachelle Nava APRN, STUDENT DEVELOPMENT COORDINATOR #[address] [place] [address] Nurse Practitioner Advanced Practice Nurse 07/19/22 Irais Naylor APRN, JOURNEYMAN GLAZIER #2 [facility] [address] [place] [address] Nurse Practitioner Cardiology 06/27/23 07/29/24 Sharri Gaspar MD 2 [facility] [address] [place] [address] Consulting Physician Cardiology 04/26/24 Amber Aldrich APRN, JOURNEYMAN GLAZIER #[address] [place] [address] Nurse Practitioner Cardiology 07/30/24 documented as of this encounter
--- OUTSIDE RECORDS SUMMARY | 2024-11-16 13:26 | XMS_ITS | Encounter Summary ---
Author Organization [facility] Address [address] [place] [address] Phone Care Team Providers Care Direct Marketing Executive Name Role Phone Phil Jacobo MD Unavailable [phone] Rajiv Mccormack NP Unavailable Unavailable Alize Acosta BLUEPRINT MAKER, PROP SAWYER Unavailable David Salmon MD Unavailable Maurilio Farley MD Unavailable Dom Quiñonez MD Unavailable Rachelle Nava BLUEPRINT MAKER, REMEDIAL READING TEACHER Unavailable + [phone] Irais Naylor BLUEPRINT MAKER, PROP SAWYER Unavailable + [phone] Rebeka Trinidad MD Primary Care Provider + [phone] Lorri Leo BLUEPRINT MAKER, PROP SAWYER Primary Care Provider + [phone] Sharri Gaspar MD Unavailable Tani Biggs Primary Care Provider [phone] Amber Aldrich BLUEPRINT MAKER, PROP SAWYER Unavailable Encounter Details Date Type Department Care Team (Late st Contact Info) Description 04/21/2024 Telephone [facility] Oncology Services [address] [place] [address] Melony Asif Stacey, PAC [address] [place] [address] Social History Tobacco Use Types Packs/Day Years Used Date Smoking Tobacco: Every Day Cigarettes 1 37.1 Started: 1984; Last attempted to quit: 04/12/2021 Smokeless Tobacco: Never Alcohol Use Standard Drinks/Week Comments Not Currently 0 (1 standard drink = 0.6 oz pur e alcohol) Last drink in 2020 [facility] Utilities Answer Date Recorded In the [...] often do you attend chur ch or mormonism services? 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 I reached out to the patient after the PA reviewed her chart informing her to please complete ordered labs. The patient will contact the office to schedule a follow up 3-5 days after lab work. HOUSE VAT WORKER documented in this encounter Plan of Treatment Upcoming Encounters Date Type Department Care Team (Late st Contact Info) Description 11/17/2024 2:00 PM CDT Telemedicine [facility] [address] [place] [address] [phone] Alize Acosta, BLUEPRINT MAKER, PROP SAWYER [address] [place] [address] 11/18/2024 3:45 PM CDT [facility] - End[facility]ology - [place] [address] [place] [address] David Salmon MD [facility] [address] 11/24/2024 2:40 PM CDT Telemedicine [facility] [address] [place] [address] 01/03/2025 11:30 AM CDT [facility] [place] #[address] [place] [address] Rachelle Nava, BLUEPRINT MAKER, REMEDIAL READING TEACHER #[address] [place] [address] 03/04/2025 3:10 PM DYE HOUSE VAT WORKER [facility] - [place] [address] [place] [address] [facility], [facility] 03/04/2025 3:30 PM DYE HOUSE VAT WORKER Office Visit [facility] Primary Care - [place] [address] [place] [address] Tani Biggs, [facility] [address] [place] [address] 03/17/2025 1:30 PM DYE HOUSE VAT WORKER [facility] [address] [place] [address] Melony Asif Stacey, PAC [address] [place] [address] Discharge Disposition: Discharged to home or Selfcare 03/25/2025 1:20 PM DYE HOUSE VAT WORKER [facility] [address] [place] [address] Melony Asif Stacey, PAC [address] [place] [address] Discharge Disposition: Discharged to home or Selfcare 04/25/2025 2:00 PM DYE HOUSE VAT WORKER [facility] [place] #[address] [place] [address] Laisha Griffin, DO [address] [address] 07/18/2025 1:00 PM CDT Office Visit [facility] - Pulmonology & Sleep Medicine [facility] #2 [place] [address] Dom Quiñonez MD #[address] [place] [address] documented as of this encounter Goals Goal Patient Goal Type Associated Problems Recent Progress Patient-Stated? Author ACTIVITY Activity No change(08/08 2:42 PM CDT) Yes Maritza Vanegas RN Note: Bonny will walk five days a week. Goal Reviewed with: Bonny Readiness to change: Department associated with goal: [facility] Steps to achieve goal: Walking 5 days a week I want to be able to be around people and feel less depressed. Behavioral Health Worsening(0 09/22/2023 3:12 PM CDT) Yes Hilda Tinajero HEAT PUMP INSTALLER Note: Goal/Objective: Decrease symptoms of depression and anxiety. Anticipated Time Frame for Goal Completion: 3 months Goal Reviewed with: patient Readiness to change: Thinking about making a change Department associated with goal: [facility] Steps to achieve goal: [...] diet Depression Depression Improving(0 03/15/2022 2:27 PM DYE HOUSE VAT WORKER) No Breanne Saldana, HEMODIALYSIS LAB TECHNICIAN Note: Goal/Objective: Decrease symptoms of depression associated [...] equipment 2000mg Sodium Daily Sodium Intake On track(06/17 /2024 2:42 PM CDT) Xiomy Gunderson, RN Note: [...] Respiratory Rule-Out 05/06/2024 05/06/2024 025 9:20 AM DYE HOUSE VAT WORKER COVID - 19 05/06/2024 05/06/2024 05/06/2024 9:19 AM DYE HOUSE VAT WORKER Assessment Noted Time PHQ-9 Depression Total Score: 025 1:00 PM DYE HOUSE VAT WORKER documented as of this encounter Care Teams Direct Marketing Executive Relationship Specialty Start Date End Date Rebeka Trinidad MD [address] [place] [address] PCP - General Family Medicine 04/21/24 04/21/24 Lorri Leo, BLUEPRINT MAKER, PROP SAWYER [address] [place] [address] PCP - General Certified Nurse Practitioner 04/22/24 05/30/24 Tani Biggs, PAC [address] [place] [address] PCP - General Physician Routeman 05/31/24 Phil Jacobo MD #[address] [place] [address] Consulting Physician Neurology 03/07/21 Rajiv Mccormack, GROUND SURVEILLANCE SYSTEMS OPERATOR #[address] [place] [address] Nurse Practitioner Gastroenterology 03/07/21 Alize Acosta, RUSSELL, PROP SAWYER [address] [place], [place] [address] Virtual Advanced Care (VAC) PIPE FITTER APPRENTICE Advanced Practice Nurse 08/30/21 David Salmon MD #[address] [address] Consulting Physician Endocrinology 01/15/22 Maurilio Farley MD #[address] [id number] Consulting Physician Colon and Rectal Surgery 09/20/22 Dom Quiñonez MD #[address] [place] [address] Consulting Physician Pulmonary Disease 11/19/21 Rachelle Nava APRN, REMEDIAL READING TEACHER #[address] [place], [place] [phone] Nurse Practitioner Advanced Practice Nurse 07/19/22 Irais Naylor APRN, PROP SAWYER #2 [facility] [address] [place] [address] Nurse Practitioner Cardiology 06/27/23 07/29/24 Sharri Gaspar MD [address] [facility] [place] [place] [address] Consulting Physician Cardiology 04/26/24 Amber Aldrich APRN, PROP SAWYER #[address] [place] [address] Nurse Practitioner Cardiology 07/30/24 documented as of this encounter
--- OUTSIDE RECORDS SUMMARY | 2024-11-16 13:26 | XMS_ITS | Encounter Summary ---
Author Organization [facility] Address [address] [place] [address] Phone Care Team Providers Care Armored Car Messenger Name Role Phone Jackeline Dimas QUALITY IMPROVEMENT ENGINEER, TRUST MAIL CLERK Primary Care Provider Phil Jacobo MD Unavailable +[phone] Rajiv Mccormack NP Unavailable Unavailable Alize Acosta QUALITY IMPROVEMENT ENGINEER, TRUST MAIL CLERK Unavailable +[phone] Dayo Chaney MD Unavailable Juanita Hauser RN Unavailable UnavailDavid Alexandre MD Unavailable Emilia Tang MD Primary Care Provider [phone] Maurilio Farley MD Unavailable Physician, Candida Davis MD Unavailable Rebeka Trinidad MD Primary Care Provider + [phone] Dom Quiñonez MD Unavailable Rachelle Nava QUALITY IMPROVEMENT ENGINEER, SQL SSIS DEVELOPER Unavailable + [phone] Irais Naylor QUALITY IMPROVEMENT ENGINEER, TRUST MAIL CLERK Unavailable + [phone] Lorri Leo QUALITY IMPROVEMENT ENGINEER, TRUST MAIL CLERK Primary Care Provider [phone] Rebeka Trinidad MD Primary Care Provider + [phone] Ahmet Lorri M QUALITY IMPROVEMENT ENGINEER, [facility] Primary Care Provider + [phone] Sharri Gaspar MD Unavailable Kalyan Tani B [facility] Primary Care Provider +[phone] Amber Aldrich APRN, [facility] Unavailable Reason for Visit * Reason Onset Date Comments Medication Refill 04/19/2022 Encounter Details Date Type Department Care Team (Late st Contact Info) Description 04/19/2022 Refill [facility] [address] [place] [phone] Meli Rosenthal, RN [place] Medication Refill Social [...] 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 No / Unsure 04/11/2022 12:32 PM SPOON MAKER documented as of this encounter Miscellaneous Notes * Telephone Encounter - Meli Rosenthal, RN - 04/19/2022 4:27 PM SPOON MAKER Patient requesting refill of hydroxyzine 25mg. Last filled on 03/23/22 for #60 with 0 refills. Last routine visit: 04/11/22 with [facility]/testin02/23/22 Upcoming visits: none currently scheduled with [facility] QUALITY IMPROVEMENT ENGINEER Refill pending for your review and approval. All questions and concerns were answered. Will await recommendations. N MAKER documented in this encounter Plan of Treatment Upcoming Encounters Date Type Department Care Team (Late st Contact Info) Description 11/17/2024 2:00 PM CDT Telemedicine [facility] [address] [place] [address] Alize Acosta APRN, TRUST MAIL CLERK [address] [place] [address] 11/18/2024 3:45 PM CDT Office Visit [facility] Medical [facility] - Endocrinology - [place] [address] [place] [address] David Salmon MD #[address] [address] 11/24/2024 2:40 PM CDT Telemedicine [facility] [address] [place] [address] 01/03/2025 11:30 AM CDT [facility] [place] #[address] [place] [address] Rachelle Nava APRN, SQL SSIS DEVELOPER #[address] [place] [address] 03/04/2025 3:10 PM SPOON MAKER Lab [facility] Primary Care - [place] [facility] [place] [address] [facility], [facility] 03/04/2025 3:30 PM SPOON MAKER [facility] [address] [place] [address] Tani Biggs, [facility] [address] [place] [address] 03/17/2025 1:30 PM SPOON MAKER Lab [facility] [address] [place] [address] [facility], [facility] [address] [place] [address] Discharge Disposition: Discharged to home or Selfcare 03/25/2025 1:20 PM SPOON MAKER Office Visit [facility] Oncology Services [address] [place] [address] [facility], [facility] [address] [place] [address] Discharge Disposition: Discharged to home or Selfcare 04/25/2025 2:00 PM SPOON MAKER Office Visit [facility] Medical [facility] - Cardiology - [place] [address] [place] [address] Laisha Griffin, DO [address] [address] 07/18/2025 1:00 PM CDT Office Visit [facility] - Pulmonology & Sleep Medicine [facility] #[address] [place] [address] Dom Quiñonez MD #[address] [place] [address] documented as of this encounter Goals Goal [...] as recommended. Depression Depression Improving( 2:27 PM SPOON MAKER) No Breanne Saldana LCSW Note: Goal/Objective: [...] Sodium Intake On track(2023 2:42 PM CDT) Ximoy Gunderson, RN Note: Goal: I will reduce [...] Indicated Resolved Time COVID - 19 04/18/2024 04/18/202404/18/2024 10:4 7 PM SPOON MAKER Respiratory Rule-Out 05/06/2024 05/06/2024 025 9:20 AM SPOON MAKER COVID - 19 05/06/2024 05/06/2024 05/06/2024 9:19 AM SPOON MAKER Assessment Noted Time PHQ-9 Depression Total Score: 24 022 3:31 PM SPOON MAKER documented as of this encounter Care Teams Armored Car Messenger Relationship Specialty Start Date End Date Jackeline Dimas, QUALITY IMPROVEMENT ENGINEER, TRUST MAIL CLERK [address] [place] [address] PCP - General Advanced Practice Nurse 07/31/17 Emilia Tang MD [address] [place] [address] PCP - General Family Medicine 06/07/22 03/25/23 Rebeka Trinidad MD [address] [place] [address] PCP - General Family Medicine 03/26/23 03/29/24 Lorri Leo APRN, TRUST MAIL CLERK [address] [place] [address] PCP - General Certified Nurse Practitioner 03/30/24 04/20/24 Rebeka Trinidad MD [address] [place] [address] PCP - General Family Medicine 04/21/24 04/21/24 Lorri Leo APRN, TRUST MAIL CLERK [address] [place] [address] PCP - General Certified Nurse Practitioner 04/22/24 05/30/24 Tani Biggs, PAC [address] [place] [address] PCP - General Physician Functional Consultant 05/31/24 Phil Jacobo MD #[address] [place] [address] Consulting Physician Neurology 03/07/21 Rajiv Mccormack, KELI #[address] [place] [address] Nurse Practitioner Gastroenterology 03/07/21 Alize Acosta APRN, TRUST MAIL CLERK [address] [place] [address] Virtual Advanced Care (VAC) CLASSIFICATION COUNSELOR Advanced Practice Nurse 08/30/21 Dayo Chaney MD [address] [place] [address] Mainframe Software Developer Cardiovascular Disease - Cardiology 09/20/21 02/12/24 Juanita Mercado, [place] Registered Nurse Cardiology 12/24/21 02/12/24 David Salmon MD #[address] [phone] Consulting Physician Endocrinology 01/15/22 Maurilio Farley MD #[address] [address] Consulting Physician Colon and Rectal Surgery 09/20/22 PhysicianCandida MD [address] [place], [place] [address] Family Medicine 01/25/22 03/18/23 Dom Quiñonez MD #[address] [place] [address] Consulting Physician Pulmonary Disease 11/19/21 Rachelle Nava, QUALITY IMPROVEMENT ENGINEER, SQL SSIS DEVELOPER #[address] [facility] [place] [address] Nurse Practitioner Advanced Practice Nurse 07/19/22 Irais Naylor, QUALITY IMPROVEMENT ENGINEER, TRUST MAIL CLERK #2 [facility] [address] [place] [address] Nurse Practitioner Cardiology 06/27/23 07/29/24 Sharri Gaspar MD 2 [facility] [address] [place] [address] Consulting Physician Cardiology 04/26/24 Amber Aldrich, QUALITY IMPROVEMENT ENGINEER, TRUST MAIL CLERK #[address] [place] [address] Nurse Practitioner Cardiology 07/30/24 documented as of this encounter
--- OUTSIDE RECORDS SUMMARY | 2024-11-16 13:26 | XMS_ITS | Encounter Summary ---
Author Organization [facility] Address [address] [place] [address] Phone Care Team Providers Care System Programmer Name Role Phone Jackeline Dimas LIME KILN WORKER, EXCHANGE TELLER Primary Care Provider Phil Jacobo MD Unavailable +[phone] Rajiv Mccormack NP Unavailable Unavailable Alize Acosta LIME KILN WORKER, EXCHANGE TELLER Unavailable +[phone] Dayo Chaney MD Unavailable Juanita Hauser RN Unavailable UnavailDavid Alexandre MD Unavailable Emilia Tang MD Primary Care Provider [phone] Maurilio Farley MD Unavailable Physician, Candida Davis MD Unavailable Rebeka Trinidad MD Primary Care Provider + [phone] Dom Quiñonez MD Unavailable Rachelle Nava LIME KILN WORKER, STUDENT MINISTRIES DIRECTOR Unavailable + [phone] Irais Naylor LIME KILN WORKER, EXCHANGE TELLER Unavailable + [phone] Lorri Leo LIME KILN WORKER, EXCHANGE TELLER Primary Care Provider [phone] Rebeka Trinidad MD Primary Care Provider + [phone] Ahmet Lorri Annetta LIME KILN WORKER, [facility] Primary Care Provider + [phone] Sharri Gaspar MD Unavailable Kalyan Tani B [facility] Primary Care Provider [phone] Amber Aldrich APRN, [facility] Unavailable Reason for Visit * Reason Comments Medication Refill Encounter Details Date Type Department Care Team (Late st Contact Info) Description 04/01/2022 Refill [facility] - Endocrinology - [place] [address] [place] [address] David Salmon MD #[address] [address] Medication Refill Social History Tobacco [...] 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 No / Unsure 04/04/2022 4:01 PM MINE SUPERVISOR documented as of this encounter Miscellaneous Notes * Telephone Encounter - Yesi Leggett RN - 04/01/2022 1:19 PM MINE SUPERVISOR Requested Prescriptions Pending Prescriptions Disp Refills ??? Glucose Blood (OneTouch Verio) Strip [Pharmacy Med Name: ONE TOUCH VERIO TEST ST(NEW)100S] 200 Strip Sig: TEST BLOOD SUGAR TWICE DAILY Next appt: 04/30/2022 SUPERVISOR documented in this encounter Plan of Treatment Upcoming Encounters Date Type Department Care Team (Late st Contact Info) Description 11/17/2024 2:00 PM CDT Telemedicine [facility] [address] [place] [address] Alize Acosta, LIME KILN WORKER, EXCHANGE TELLER [address] [place] [address] 11/18/2024 3:45 PM CDT Office [facility] Medical [facility] - Endocrinology - [place] [address] [place] [address] David Salmon MD #[address] [address] 11/24/2024 2:40 PM CDT [facility] [address] [place] [address] 01/03/2025 11:30 AM CDT Office Visit [facility] - Neurology [facility] #[address] [place] [address] Rachelle Nava APRN, STUDENT MINISTRIES DIRECTOR #[address] [place] [address] 03/04/2025 3:10 PM MINE SUPERVISOR Lab [facility] Primary Care - [address] [phone] Lab, [facility] 03/04/2025 3:30 PM MINE SUPERVISOR Office Visit [facility] - [place] [address] [place] [address] Tani Biggs, PAC [address] [place] [address] 03/17/2025 1:30 PM MINE SUPERVISOR Lab [facility] Oncology Services [address] [place] [address] Melony Asif Stacey, [facility] [address] [place] [address] Discharge Disposition: Discharged to home or Selfcare 03/25/2025 1:20 PM MINE SUPERVISOR Office Visit [facility] Oncology Services [address] [place] [address] Melony Asif Stacey, [facility] [address] [place] [address] Discharge Disposition: Discharged to home or Selfcare 04/25/2025 2:00 PM MINE SUPERVISOR Office Visit [facility] - Cardiology - [place] [address] [place] [address] Laisha Griffin, DO [address] [address] 07/18/2025 1:00 PM CDT Office Visit [facility] - Pulmonology & Sleep Medicine - [place] [address] [place] [address] Dom Quiñonez MD #[address] [place] [address] documented as of this encounter Goals Goal [...] as recommended. Depression Depression Improving( 2:27 PM MINE SUPERVISOR) No Breanne Saldana LCSW Note: Goal/Objective: [...] 19 04/18/2024 04/18/2024 04/18/2024 10:4 7 PM MINE SUPERVISOR Respiratory Rule-Out 05/06/2024 05/06/2024 025 9:20 AM MINE SUPERVISOR COVID - 19 05/06/2024 05/06/2024 05/06/2024 9:19 AM MINE SUPERVISOR Assessment Noted Time PHQ-9 Depression Total Score: 24 022 3:31 PM MINE SUPERVISOR documented as of this encounter Care Teams System Programmer Relationship Specialty Start Date End Date Jackeline Dimas APRN, EXCHANGE TELLER [address] [place] [address] PCP - General Advanced Practice Nurse 07/31/17 Emilia Tang MD [address] [place] [address] PCP - General Family Medicine 06/07/22 03/25/23 Rebeka Trinidad MD [address] [place] [address] PCP - General Family Medicine 03/26/23 03/29/24 Lorir Leo APRN, EXCHANGE TELLER [address] [place] [address] PCP - General Certified Nurse Practitioner 03/30/24 04/20/24 Rebeka Trinidad MD [address] [place] [address] PCP - General Family Medicine 04/21/24 04/21/24 Lorri Leo APRN, EXCHANGE TELLER [address] [place] [address] PCP - General Certified Nurse Practitioner 04/22/24 05/30/24 Tani Biggs, PAC [address] [place] [address] PCP - General Physician Induction Coordination Engineer 05/31/24 Phil Jacobo MD #[address] [place] [address] Consulting Physician Neurology 03/07/21 Rajiv Mccormack, KELI #[address] [place] [address] Nurse Practitioner Gastroenterology 03/07/21 Alize Acosta, LIME KILN WORKER, EXCHANGE TELLER [address] [place] [address] Virtual Advanced Care (VAC) POOL HAND Advanced Practice Nurse 08/30/21 Dayo Chaney MD [address] [place] [address] Microsoft Systems Engineer Cardiovascular Disease - Cardiology 09/20/21 02/12/24 Juanita Mercado, [place] Registered Nurse Cardiology 12/24/21 02/12/24 David Salmon MD #[address] [address] Consulting Physician Endocrinology 01/15/22 Maurilio Farley MD #[address] [address] Consulting Physician Colon and Rectal Surgery 09/20/22 PhysicianCandida MD [address] [place] [address] Family Medicine 01/25/22 03/18/23 Dom Quiñonez MD #2 [place] [address] Consulting Physician Pulmonary Disease 11/19/21 Rachelle Nava, LIME KILN WORKER, STUDENT MINISTRIES DIRECTOR #2 [place] [address] Nurse Practitioner Advanced Practice Nurse 07/19/22 Irais Naylor, LIME KILN WORKER, EXCHANGE TELLER #2 [facility] [address] [place] [address] Nurse Practitioner Cardiology 06/27/23 07/29/24 Sharri Gaspar MD 2 [facility] [address] [place] [address] Consulting Physician Cardiology 04/26/24 Amber Aldrich, LIME KILN WORKER, EXCHANGE TELLER #[address] [place] [address] Nurse Practitioner Cardiology 07/30/24 documented as of this encounter
[2024-11-16 14:34] LABS: Hemoglobin A1C 7.3 % (<5.7)
== END 2024-11-16 11:21 | disposition home or self-care (01) ==
PROVIDERS: Visit Provider Neurological Surgery
DX: Z01.818 Encounter for other preprocedural examination (principal); E78.5 Hyperlipidemia, unspecified; M48.061 Spinal stenosis, lumbar region without neurogenic claudication; R94.31 Abnormal electrocardiogram [ECG] [EKG]
CPT/HCPCS: 36415; 80048; 81003; 83036; 85027; 85610; 85730; 93005

== ENCOUNTER 2024-12-04 16:08 | Inpatient (IN) | payer MEDICARE, SELFPAY ==
[2024-11-16 12:05] VITALS: BP 110/72; PULSE 82; RESP 16; TEMP 36.7; O2SAT 100; BMI 30.5
--- NOTE | 2024-11-16 12:24 | PC.NURSE ---
Report to the Outpatient Waiting Room, entrance under the green pavilion located off [facility], at time ___0600am____ on date _12/03/24 . Planned Procedure Time: _0730am .? Time changes happen often and if your time is changed the preop area will call you the afternoon before. - You and your visitor will be asked to self-screen and do not enter if you have any COVID symptoms. Please call surgeon if you need to reschedule. - A mask is optional within the hospital at this time. Patients may have clear liquids (water, carbonated beverages, clear teas, apple juice) until 3 hours prior to surgery with a maximum of 20 ounces. - No food from midnight until time of surgery and no smoking, or chewing tobacco (or any form of nicotine). No chewing gum, candy or mints. (0430am) Take only the following medications with a SIP of water on the morning of surgery: __Bupropion, Gabapentin, Venlafaxine, Inhalers, and Tizanidine as needed. DO NOT STOP ANY OF YOUR OTHER PRESCRIPTION MEDICATIONS PRIOR TO SURGERY EXCEPT THE FOLLOWING Hold all vitamins and supplements for 3 days per anesthesiologist. Date of last dose is 11/29/24 Medications to discontinue per physician Hold Aspirin for [address] Beal Date to take last dose 11/25/24 Please no make-up, nail filipino, hairspray, perfume, deodorant, or body powder the day of surgery.? No jewelry (including any body piercings) or valuables the day of surgery, leave them at home.? Please take a shower or bath the night before, or the morning of, surgery with an antibacterial soap.? Wear comfortable, loose fitting clothing.? Overnight, good shoes, cell phone/revenue research analyst, Robe - Jewelry must be removed prior to entering the operating room.? Rings and piercings that are not removed may be cut off. - The hospital will not accept responsibility for valuables.? - Please leave all valuables, including medications, at home the day of surgery. If you are going home after surgery, a licensed otr flatbed driver must drive you home.? - NO public transportation without another adult if you receive anesthesia. - We recommend that an adult stay with you for 24 hours following discharge. - We also recommend that you do not drive, make important decision, drink alcoholic beverages, or take any drugs that were not prescribed by your health care provider for at least 24 hours after your discharge time. Follow any additional instructions given to you from your surgeon. Telephone instructions given to ___Patient and MITCHELL Swann and asked if any additional questions and then verbalized understanding. Patient advised to call surgeon office or pre surgery nurse liaison [phone] if any additional questions.
[2024-12-03] VITALS (18 sets, daily range): BP systolic 93–125; BP diastolic 66–84; PULSE 78–109; RESP 12–20; TEMP 36.1–37; O2SAT 90–100; BMI 29.7
--- OUTSIDE RECORDS SUMMARY | 2024-12-03 01:26 | XMS_ITS | Encounter Summary ---
Author Organization [facility] Address [address] [place] [address] Phone Care Team Providers Care Railroad Baggage Porter Name Role Phone Phil Jacobo MD Unavailable [phone] Rajiv Mccormack NP Unavailable Unavailable Alize Acosta ELECTRICIAN TELEPHONE, GLOVE TURNER AND FORMER AUTOMATIC Unavailable [phone] Dayo Chaney MD Unavailable Juanita Hauser RN Unavailable Unavaila David Martinez MD Unavailable Emilia Tang MD Primary Care Provider [phone] Maurilio Farley MD Unavailable PhysicianCandida MD Unavailable Rebeka Trinidad MD Primary Care Provider + [phone] Dom Quiñonez MD Unavailable Rachelle Nava ELECTRICIAN TELEPHONE, PLAYGROUND DIRECTOR Unavailable + [phone] Irais Naylor ELECTRICIAN TELEPHONE, GLOVE TURNER AND FORMER AUTOMATIC Unavailable + [phone] Lorri eLo ELECTRICIAN TELEPHONE, GLOVE TURNER AND FORMER AUTOMATIC Primary Care Provider + [phone] Rebeka Trinidad MD Primary Care Provider + [phone] Lorri Leo ELECTRICIAN TELEPHONE, GLOVE TURNER AND FORMER AUTOMATIC Primary Care Provider + [phone] Sharri Gaspar MD Unavailable Tani Biggs Primary Care Provider + [phone] Valdemar Amber Dinora WELLS, GLOVE TURNER AND FORMER AUTOMATIC Unavailable Reason for Visit * Reason Comments Medication Refill Encounter Details Date Type Department Care Team (Late st Contact Info) Description 09/04/2022 Refill [facility] - Endocrinology - [place] [address] [place] [address] David Salmon MD #[address] [address] Medication Refill Social History Tobacco [...] 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 TRUEplus 5-Bevel Pen [place] 32G X 4 MM Misc [Pharmacy Med Name: TRUEPLUS 5- BEVEL PEN NEEDLE 03TV3AT] 100 Each 1 Sig: USE DAILY DIRECTED. Next appt: 10/31/2022 documented in this encounter Plan of Treatment Upcoming Encounters Date Type Department Care Team (Late st Contact Info) Description 12/10/2024 2:40 PM CDT Telemedicine [facility] [address] [place] [address] 01/03/2025 11:30 AM CDT Office Visit [facility] - Neurology - [place] [address] [place] [address] Rachelle Nava APRN, PLAYGROUND DIRECTOR #[address] [place] [address] 02/11/2025 2:00 PM MACERATOR OPERATOR Telemedicine [facility] [address] [place] [address] 02/16/2025 2:00 PM MACERATOR OPERATOR Telemedicine [facility] [address] [place] [address] Alize Acosta, ELECTRICIAN TELEPHONE, GLOVE TURNER AND FORMER AUTOMATIC [address] [place] [address] 02/21/2025 3:45 PM MACERATOR OPERATOR Office Visit [facility] Medical [facility] - Endocrinology - [place] [address] [place] [address] David Salmon MD #[address] [address] 03/04/2025 3:10 PM MACERATOR OPERATOR Lab [facility] Primary Care - [place] [address] [place] [address] 03/04/2025 3:30 PM MACERATOR OPERATOR Office Visit [facility] Primary Care - [place] [address] [place] [address] Tani Biggs, [facility] [address] [place] [address] 03/17/2025 1:30 PM MACERATOR OPERATOR Lab [facility] Oncology Services [address] [place] [address] Melony Asif, PAC [address] [place] [address] Discharge Disposition: Discharged to home or Selfcare 03/25/2025 1:20 PM MACERATOR OPERATOR Office Visit [facility] Oncology Services [address] [place] [address] Melony Asif, PAC [address] [place] [address] Discharge Disposition: Discharged to home or Selfcare 04/25/2025 2:00 PM MACERATOR OPERATOR Office Visit [facility] - Cardiology - [place] [address] [place] [address] Laisha Griffin, DO [address] [address] 07/18/2025 1:00 PM CDT Office Visit [facility] - Pulmonology & Sleep Medicine - [place] [address] [place] [address] Dom Quiñonez MD #2 [place] [address] documented as of this encounter Goals Goal [...] diet Depression Depression Improving(0 03/15/2022 2:27 PM MACERATOR OPERATOR) No Breanne Saldana LCSW Note: Goal/Objective: [...] 19 04/18/2024 04/18/2024 04/18/2024 10:4 7 PM MACERATOR OPERATOR Respiratory Rule-Out 05/06/2024 05/06/2024 025 9:20 AM MACERATOR OPERATOR COVID - 19 05/06/2024 05/06/2024 05/06/2024 9:19 AM MACERATOR OPERATOR Assessment Noted Time PHQ-9 Depression Total Score: 24 022 3:31 PM MACERATOR OPERATOR documented as of this encounter Care Teams Railroad Baggage Porter Relationship Specialty Start Date End Date Emilia Tang MD [address] [place] [address] PCP - General Family Medicine 06/07/22 03/25/23 Rebeka Trinidad MD [address] [place] [address] PCP - General Family Medicine 03/26/23 03/29/24 Lorri Leo APRN, GLOVE TURNER AND FORMER AUTOMATIC [address] [place] [address] PCP - General Certified Nurse Practitioner 03/30/24 04/20/24 Rebeka Trinidad MD [address] [place], [place] [address] PCP - General Family Medicine 04/21/24 04/21/24 Lorri Leo ELECTRICIAN TELEPHONE, GLOVE TURNER AND FORMER AUTOMATIC [address] [place], [place] [address] PCP - General Certified Nurse Practitioner 04/22/24 05/30/24 Tani Biggs, PAC [address] [place] [address] PCP - General Physician Obstetrics Gynecology Physician 05/31/24 Phil Jacobo MD #[address] [place] [address] Consulting Physician Neurology 03/07/21 Rajiv Mccormack, KELI #[address] [place] [address] Nurse Practitioner Gastroenterology 03/07/21 Alize Acosta, RUSSELL, GLOVE TURNER AND FORMER AUTOMATIC [address] [place] [address] Virtual Advanced Care (VAC) INTERNAL MEDICINE VETERINARY TECHNICIAN Advanced Practice Nurse 08/30/21 Dayo Chaney MD [address] [facility] [address] Sales And Service Engineer Cardiovascular Disease - Cardiology 09/20/21 02/12/24 Juanita Mercado, [place] Registered Nurse Cardiology 12/24/21 02/12/24 David Salmon MD #[address] [address] Consulting Physician Endocrinology 01/15/22 Maurilio Farley MD #[address] [address] Consulting Physician Colon and Rectal Surgery 09/20/22 PhysicianCandida MD [address] [place] [address] Family Medicine 01/25/22 03/18/23 Dom Quiñonez MD #2 [place] [address] Consulting Physician Pulmonary Disease 11/19/21 Rachelle Nava, ELECTRICIAN TELEPHONE, PLAYGROUND DIRECTOR #[address] [place] [address] Nurse Practitioner Advanced Practice Nurse 07/19/22 Irais Naylor, ELECTRICIAN TELEPHONE, GLOVE TURNER AND FORMER AUTOMATIC #2 [facility] [address] [address] Nurse Practitioner Cardiology 06/27/23 07/29/24 Sharri Gaspar MD 2 [facility] MA[place] [address] [address] Consulting Physician Cardiology 04/26/24 Amber Aldrich, ELECTRICIAN TELEPHONE, GLOVE TURNER AND FORMER AUTOMATIC #[address] [place] [address] Nurse Practitioner Cardiology 07/30/24 documented as of this encounter
--- OUTSIDE RECORDS SUMMARY | 2024-12-03 01:26 | XMS_ITS | Encounter Summary ---
Author Organization [facility] Address [address] [place] [address] Phone Care Team Providers Care Garnett Machine Operator Helper Name Role Phone Phil Jacobo MD Unavailable [phone] Rajiv Mccormack NP Unavailable Unavailable Alize Acosta COLLEGE ADMISSIONS COUNSELOR, CERAMIC TILE INSTALLER Unavailable +[phone] Dayo Chaney MD Unavailable Juanita Hauser RN Unavailable Unavaila David Martinez MD Unavailable Emilia Tang MD Primary Care Provider +[phone] Maurilio Farley MD Unavailable PhysicianCandida MD Unavailable Rebeka Trinidad MD Primary Care Provider + [phone] Dom Quiñonez MD Unavailable Rachelle Nava COLLEGE ADMISSIONS COUNSELOR, DIRECTOR TREASURER Unavailable + [phone] Irais Naylor COLLEGE ADMISSIONS COUNSELOR, CERAMIC TILE INSTALLER Unavailable + [phone] Lorri Leo COLLEGE ADMISSIONS COUNSELOR, CERAMIC TILE INSTALLER Primary Care Provider + [phone] Rebeka Trinidad MD Primary Care Provider + [phone] Lorri Leo COLLEGE ADMISSIONS COUNSELOR, CERAMIC TILE INSTALLER Primary Care Provider + [phone] Sharri Gaspar MD Unavailable Tani Biggs Primary Care Provider + [phone] Valdemar Amber Dinora WELLS, CERAMIC TILE INSTALLER Unavailable Reason for Visit * Reason Comments Medication Refill Encounter Details Date Type Department Care Team (Late st Contact Info) Description 09/09/2022 Refill [facility] - Endocrinology - [place] [address] [place] [address] David Salmon MD #[address] [address] Medication Refill Social History Tobacco [...] 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 [...] PM CDT Telemedicine [facility] [address] [place] [address] 01/03/2025 11:30 AM CDT Office Visit [facility] - Neurology - [place] [address] [place] [address] Rachelle Nava APRN, DIRECTOR TREASURER [address] [place] [address] 02/11/2025 2:00 PM FAMILY CONSULTANT Telemedicine [facility] [address] [place] [address] 02/16/2025 2:00 PM FAMILY CONSULTANT Telemedicine [facility] [address] [place] [address] Alize Acosta, COLLEGE ADMISSIONS COUNSELOR, CERAMIC TILE INSTALLER [address] [place] [address] 02/21/2025 3:45 PM FAMILY CONSULTANT Office Visit [facility] Medical [facility] - Endocrinology - [place] [address] [place] [address] David Salmon MD #[address] [address] 03/04/2025 3:10 PM FAMILY CONSULTANT Lab [facility] - Primary Care - [place] [address] [place] [address] 03/04/2025 3:30 PM FAMILY CONSULTANT [facility] - Primary Care - [place] [address] [place] [address] Tani Biggs, PAC [address] [place] [address] 03/17/2025 1:30 PM FAMILY CONSULTANT [facility] [address] [place] [address] Melony Asif, PAC [address] [place] [address] Discharge Disposition: Discharged to home or Selfcare 03/25/2025 1:20 PM FAMILY CONSULTANT [facility] [address] [place] [address] Melony Asif Stacey, PAC [address] [place] [address] Discharge Disposition: Discharged to home or Selfcare 04/25/2025 2:00 PM FAMILY CONSULTANT [facility] [place] [address] [place] [address] Laisha Griffin, DO [address] [address] 07/18/2025 1:00 PM CDT Office [facility] - Pulmonology & Sleep Medicine - [place] [address] [place] [address] Dom Quiñonez MD #[address] [place] [address] documented as of this encounter Goals Goal [...] diet Depression Depression Improving(0 03/15/2022 2:27 PM FAMILY CONSULTANT) No Breanne Saldana LCSW Note: Goal/Objective: Decrease [...] 19 04/18/2024 04/18/2024 04/18/2024 10:4 7 PM FAMILY CONSULTANT Respiratory Rule-Out 05/06/2024 05/06/2024 025 9:20 AM FAMILY CONSULTANT COVID - 05/06/2024 05/06/2024 05/06/2024 9:19 AM FAMILY CONSULTANT Assessment Noted Time PHQ-9 Depression Total Score: 24 022 3:31 PM FAMILY CONSULTANT documented as of this encounter Care Teams Garnett Machine Operator Helper Relationship Specialty Start Date End Date Emilia Tang MD [address] [place] [address] PCP - General Family Medicine 06/07/22 03/25/23 Rebeka Trinidad MD [address] [place] [address] PCP - General Family Medicine 03/26/23 03/29/24 Lorri Leo APRN, CERAMIC TILE INSTALLER [address] [place] [address] PCP - General Certified Nurse Practitioner 03/30/24 04/20/24 Rebeka Trinidad MD [address] [place], [place] [id number] PCP - General Family Medicine 04/21/24 04/21/24 Lorri Leo COLLEGE ADMISSIONS COUNSELOR, CERAMIC TILE INSTALLER [address] [place] [place], [place] [address] PCP - General Certified Nurse Practitioner 04/22/24 05/30/24 Tani Biggs, ESTRELLITA [address] [place] [address] PCP - General Physician Press Tool Maker 05/31/24 Phil Jacobo MD #[address] [place] [address] Consulting Physician Neurology 03/07/21 Rajiv Mccormack, CLINICAL LEADER #[address] [place] [address] Nurse Practitioner Gastroenterology 03/07/21 Alize Acosta, COLLEGE ADMISSIONS COUNSELOR, CERAMIC TILE INSTALLER [address] [place] [address] Virtual [facility] (VAC) HYDROELECTRIC MACHINERY MECHANIC HELPER Advanced Practice Nurse 08/30/21 Dayo Chaney MD [address] [place] [address] It Application Administrator Cardiovascular Disease - Cardiology 09/20/21 02/12/24 Juanita Mercado, [place] Registered Nurse Cardiology 12/24/21 02/12/24 David Salmon MD #[address] [address] Consulting Physician Endocrinology 01/15/22 Maurilio Farley MD #2 [facility] [address] [address] Consulting Physician Colon and Rectal Surgery 09/20/22 Physician, Candida Davis MD [address] [place] [address] Family Medicine 01/25/22 03/18/23 Dom Quiñonez MD #[address] [place] [address] Consulting Physician Pulmonary Disease 11/19/21 Rachelle Nava COLLEGE ADMISSIONS COUNSELOR, DIRECTOR TREASURER #[address] [place] [address] Nurse Practitioner Advanced Practice Nurse 07/19/22 Irais Naylor, COLLEGE ADMISSIONS COUNSELOR, CERAMIC TILE INSTALLER #[address] [address] Nurse Practitioner Cardiology 06/27/23 07/29/24 Sharri Gaspar MD 2 [facility] [place] [address] [address] Consulting Physician Cardiology 04/26/24 Amber Aldrich, COLLEGE ADMISSIONS COUNSELOR, CERAMIC TILE INSTALLER #[address] [place] [address] Nurse Practitioner Cardiology 07/30/24 documented as of this encounter
--- OUTSIDE RECORDS SUMMARY | 2024-12-03 01:26 | XMS_ITS | Encounter Summary ---
Author Organization [facility] Address [address] [place] [address] Phone Care Team Providers Care Merchandising Specialist Name Role Phone Jackeline Dimas BROWNING PROCESSOR, SNOWMOBILE MECHANIC Primary Care Provider Fiona Martinez PIANO BENCH ASSEMBLER Unavailable Unavailab Phil Ellis MD Unavailable [phone] Rajiv Mccormack NP Unavailable Unavailable Renita Quezada RN Unavailable Unavailable Alize Acosta BROWNING PROCESSOR, SNOWMOBILE MECHANIC Unavailable [phone] Dayo Chaney MD Unavailable Juanita Hauser RN Unavailable Unavaila David [place] MD Unavailable Emilia Tang MD Primary Care Provider [phone] Maurilio Farley MD Unavailable Candida Turner MD Unavailable Rebeka Trinidad MD Primary Care Provider + [phone] Dom Quiñonez MD Unavailable Rachelle Nava BROWNING PROCESSOR, TANK ERECTOR Unavailable + [phone] Irais Naylor BROWNING PROCESSOR, SNOWMOBILE MECHANIC Unavailable + [phone] Lorri Leo Annetta BROWNING PROCESSOR, SNOWMOBILE MECHANIC Primary Care Provider + [phone] Rebeka Trinidad MD Primary Care Provider + [phone] AhmetAngélicamando Littlejohn BROWNING PROCESSOR, SNOWMOBILE MECHANIC Primary Care Provider [phone] Sharri Gaspar MD Unavailable Tani Biggs [facility] Primary Care Provider + [phone] Amber Aldrich BROWNING PROCESSOR, SNOWMOBILE MECHANIC Unavailable Reason for Visit * Reason Comments Medication Refill Encounter Details Date Type Department Care Team (Late Contact Info) Description 02/02/2020 Refill 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 Yes 02/01/2020 11:29 AM PEDIATRIC PHYSICAL THERAPY ASSISTANT documented as of this encounter Plan of Treatment Upcoming Encounters Date Type Department Care Team (Late st Contact Info) Description 12/10/2024 2:40 PM CDT Telemedicine [facility] [address] [place] [address] 01/03/2025 11:30 AM CDT [facility] - Neurology - [place] [address] [place] [address] Rachelle Nava, BROWNING PROCESSOR, TANK ERECTOR [address] [place] [address] 02/11/2025 2:00 PM PEDIATRIC PHYSICAL THERAPY ASSISTANT Telemedicine [facility] [address] [place] [address] 02/16/2025 2:00 PM PEDIATRIC PHYSICAL THERAPY ASSISTANT Telemedicine [facility] [address] [place] [address] Alize Acosta, BROWNING PROCESSOR, SNOWMOBILE MECHANIC [address] [place] [address] 02/21/2025 3:45 PM PEDIATRIC PHYSICAL THERAPY ASSISTANT Office Visit [facility] - Endocrinology - [place] [address] [place] [address] David Salmon MD #[address] [address] 03/04/2025 3:10 PM PEDIATRIC PHYSICAL THERAPY ASSISTANT Lab [facility] - [facility] Care - [place] [address] [place] [address] 03/04/2025 3:30 PM PEDIATRIC PHYSICAL THERAPY ASSISTANT Office Visit [facility] - Primary Care - [place] [address] [place] [address] Tani Biggs PAC [address] [place] [address] 03/17/2025 1:30 PM PEDIATRIC PHYSICAL THERAPY ASSISTANT [facility] [address] [place] [address] Melony Asif August, PAC [address] [place] [address] Discharge Disposition: Discharged to home or Selfcare 03/25/2025 1:20 PM PEDIATRIC PHYSICAL THERAPY ASSISTANT [facility] [address] [place] [address] Melony Asif August, PAC [address] [place] [address] Discharge Disposition: Discharged to home or Selfcare 04/25/2025 2:00 PM PEDIATRIC PHYSICAL THERAPY ASSISTANT Office Visit [facility] - Cardiology - [place] [address] [place] [address] Laisha Griffin, DO [address] [address] 07/18/2025 1:00 PM CDT Office [facility] - Pulmonology & Sleep Medicine [facility] #[address] [place] [address] Dom Quiñonez MD #[address] [place] [address] documented as of this encounter Visit Diagnoses Not on filedocumented in this encounter Additional Health Concerns Infection Onset Date Last Indicated Resolved Time COVID - 19 01/08/2021 01/08/2021 01/28/2021 12:1 6 AM PEDIATRIC PHYSICAL THERAPY ASSISTANT COVID - 19 03/12/2021 03/12/2021 04/01/2021 12:1 6 AM PEDIATRIC PHYSICAL THERAPY ASSISTANT COVID - 19 12/15/2021 12/15/2021 12/15/2021 7:26 PM CDT COVID - 19 Confirmed 12/15/2021 12/15/2021 022 12:16 AM CDT COVID - 04/18/2024 04/18/2024 04/18/2024 10:4 7 PM PEDIATRIC PHYSICAL THERAPY ASSISTANT Respiratory Rule-Out 05/06/2024 05/06/2024 025 9:20 AM PEDIATRIC PHYSICAL THERAPY ASSISTANT COVID - 19 05/06/2024 05/06/2024 05/06/2024 9:19 AM PEDIATRIC PHYSICAL THERAPY ASSISTANT Assessment Noted Time PHQ-9 Depression Total Score: 0 09/01/19 20 11:58 AM CDT documented as of this encounter Care Teams Merchandising Specialist Relationship Specialty Start Date End Date Jackeline Dimas, BROWNING PROCESSOR, SNOWMOBILE MECHANIC [address] [place] [address] PCP - General Advanced Practice Nurse 07/31/17 Emilia Tang MD [address] [place] [address] PCP - General Family Medicine 06/07/22 03/25/23 Rebeka Trinidad MD [address] [place] [address] PCP - General Family Medicine 03/26/23 03/29/24 Lorri Leo APRN, SNOWMOBILE MECHANIC [address] [place] [address] PCP - General Certified Nurse Practitioner 03/30/24 04/20/24 Rebeka Trinidad MD [address] [place] [address] PCP - General Family Medicine 04/21/24 04/21/24 Lorri Leo APRN, SNOWMOBILE MECHANIC [address] [place] [address] PCP - General Certified Nurse Practitioner 04/22/24 05/30/24 Tani Biggs PAC [address] [place] [address] PCP - General Physician Inventory Analyst 05/31/24 Fiona Martinez, MAR[place] Mine Analyst 03/01/21 08/23/21 Phil Jacobo MD #2 [place] [address] Consulting Physician Neurology 03/07/21 Rajiv Mccormack, KELI [address] [place] [address] Nurse Practitioner Gastroenterology 03/07/21 Renita Quezada, [place] Mine Analyst 05/09/21 08/23/21 Alize Acosta, BROWNING PROCESSOR, SNOWMOBILE MECHANIC [address] [place] [address] Virtual Advanced Care (VAC) MUCKER COFFERDAM Advanced Practice Nurse 08/30/21 Dayo hCaney MD [facility] [place] [address] Noodle Maker Cardiovascular Disease - Cardiology 09/20/21 02/12/24 Juanita Mercado RN [place] Registered Nurse Cardiology 12/24/21 02/12/24 David Salmon MD #[address] [address] Consulting Physician Endocrinology 01/15/22 Maurilio Farley MD #[address] [address] Consulting Physician Colon and Rectal Surgery 09/20/22 Physician, Candida Davis MD [address] [place] [address] Family Medicine 01/25/22 03/18/23 Dom Quiñonez MD #2 [place] [address] Consulting Physician Pulmonary Disease 11/19/21 Rachelle Nava APRN, TANK ERECTOR #2 [place] [address] Nurse Practitioner Advanced Practice Nurse 07/19/22 Irais Naylor APRN, SNOWMOBILE MECHANIC #[address] [address] Nurse Practitioner Cardiology 06/27/23 07/29/24 Sharri Gaspar MD [address] [address] Consulting Physician Cardiology 04/26/24 Amber Aldrich APRN, SNOWMOBILE MECHANIC #[address] [place] [address] Nurse Practitioner Cardiology 07/30/24 documented as of this encounter
--- OUTSIDE RECORDS SUMMARY | 2024-12-03 01:26 | XMS_ITS | Encounter Summary ---
Author Organization [facility] Address [address] [place] [address] Phone Care Team Providers Care Vp Information Technology Name Role Phone Jackeline Dimas SKIN CARE TECHNICIAN, DRY PAN OPERATOR Primary Care Provider Fiona Martinez TECHNICAL DESIGNER Unavailable Unavailab Phil Ellis MD Unavailable [phone] Rajiv Mccormack NP Unavailable Unavailable Renita Quezada RN Unavailable Unavailable Alize Acosta SKIN CARE TECHNICIAN, DRY PAN OPERATOR Unavailable +[phone] Dayo Chaney MD Unavailable Juanita Hauser RN Unavailable Unavaila David [place] MD Unavailable Emilia Tang MD Primary Care Provider [phone] Maurilio Farley MD Unavailable Candida Turner MD Unavailable Rebeka Trinidad MD Primary Care Provider + [phone] Dom Quiñonez MD Unavailable Rachelle Nava SKIN CARE TECHNICIAN, DATA WAREHOUSE ADMINISTRATOR Unavailable + [phone] Irais Naylor SKIN CARE TECHNICIAN, DRY PAN OPERATOR Unavailable + [phone] Lorri Leo Annetta SKIN CARE TECHNICIAN, DRY PAN OPERATOR Primary Care Provider + [phone] Rebeka Trinidad MD Primary Care Provider [phone] AhmetAngélicamando Littlejohn SKIN CARE TECHNICIAN, DRY PAN OPERATOR Primary Care Provider [phone] Sharri Gaspar MD Unavailable Tani Biggs [facility] Primary Care Provider + [phone] Amber Aldrich SKIN CARE TECHNICIAN, DRY PAN OPERATOR Unavailable Reason for Visit * Reason Comments Medication Refill Encounter Details Date Type Department Care Team (Late st Contact Info) Description 07/12/[address] 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 [...] CDT Telemedicine [facility] [address] [place] [address] 01/03/2025 11:30 AM CDT Office Visit [facility] - Neurology - [place] [address] [place] [address] Rachelle Nava APRN, DATA WAREHOUSE ADMINISTRATOR [address] [place] [address] 02/11/2025 2:00 PM STOCK ROLLER Telemedicine [facility] [address] [place] [address] 02/16/2025 2:00 PM STOCK ROLLER Telemedicine [facility] [address] [place] [address] Alize Acosta, RUSSELL, DRY PAN OPERATOR [address] [place] [address] 02/21/2025 3:45 PM STOCK ROLLER Office Visit [facility] - Endocrinology - [place] [address] [place] [address] David Salmon MD #[address] [address] 03/04/2025 3:10 PM STOCK ROLLER Lab [facility] [place] [address] 03/04/2025 3:30 PM STOCK ROLLER Office Visit [facility] [place] [address] Tani Biggs, PAC [address] [place] [address] 03/17/2025 1:30 PM STOCK ROLLER Lab [facility] [address] [place] [address] AsifMelony kumari August, PAC [address] [place] [address] Discharge Disposition: Discharged to home or Selfcare 03/25/2025 1:20 PM STOCK ROLLER Office Visit [facility] Oncology Services [address] [place] [address] AsifMelony kumari August, [facility] [address] [place] [address] Discharge Disposition: Discharged to home or Selfcare 04/25/2025 2:00 PM STOCK ROLLER Office Visit [facility] Medical [facility] - Cardiology - [place] [address] [place] [address] Laisha Griffin, DO [address] [address] 07/18/2025 1:00 PM CDT [facility] - Pulmonology & Sleep Medicine - [place] [address] [place] [address] Dom Quiñonez MD #[address] [place] [address] documented as of this encounter Visit Diagnoses Not on filedocumented in this encounter Additional Health Concerns Infection Onset Date Last Indicated Resolved Time COVID - 19 01/08/2021 01/08/2021 01/28/2021 12:1 6 AM STOCK ROLLER COVID - 19 03/12/2021 03/12/2021 04/01/2021 12:1 6 AM STOCK ROLLER COVID - 19 12/15/2021 12/15/2021 12/15/2021 7:26 PM CDT COVID - 19 Confirmed 12/15/2021 12/15/2021 022 12:16 AM CDT COVID - 19 04/18/2024 04/18/2024 04/18/2024 10:4 7 PM STOCK ROLLER Respiratory Rule-Out 05/06/2024 05/06/2024 025 9:20 AM STOCK ROLLER COVID - 19 05/06/2024 05/06/2024 05/06/2024 9:19 AM STOCK ROLLER Assessment Noted Time PHQ-9 Depression Total Score: 0 09/01/19 20 11:58 AM CDT documented as of this encounter Care Teams Vp Information Technology Relationship Specialty Start Date End Date Jackeline Dimas APRN, DRY PAN OPERATOR [address] [place] [address] PCP - General Advanced Practice Nurse 07/31/17 Emilia Tang MD [address] [place] [address] PCP - General Family Medicine 06/07/22 03/25/23 Rebeka Trinidad MD [address] [place] [address] PCP - General Family Medicine 03/26/23 03/29/24 Lorri Leo APRN, DRY PAN OPERATOR [address] [place] [address] PCP - General Certified Nurse Practitioner 03/30/24 04/20/24 Rebeka Trinidad MD [address] [place] [address] PCP - General Family Medicine 04/21/24 04/21/24 Lorri Leo APRN, DRY PAN OPERATOR [address] [place] [address] PCP - General Certified Nurse Practitioner 04/22/24 05/30/24 Tani Biggs, PAC [address] [place] [address] PCP - General Physician Bathhouse Keeper 05/31/24 Fiona Martinez LSW [place] Hvac Lead 03/01/21 08/23/21 Phil Jacobo MD #[address] [place] [address] Consulting Physician Neurology 03/07/21 Raijv Mccormack, KELI [address] [place] [address] Nurse Practitioner Gastroenterology 03/07/21 Renita Quezada RN [place] Hvac Lead 05/09/21 08/23/21 Alize Acosta, RUSSELL, DRY PAN OPERATOR [address] [place] [address] Virtual Advanced Care (VAC) JEEP MECHANIC Advanced Practice Nurse 08/30/21 Dayo Chaney MD [address] [place] [address] Invoice Clerk Cardiovascular Disease - Cardiology 09/20/21 02/12/24 Juanita Mercado RN [place] Registered Nurse Cardiology 12/24/21 02/12/24 David Salmon MD #[address] [address] Consulting Physician Endocrinology 01/15/22 Maurilio Farley MD #[address] [address] Consulting Physician Colon and Rectal Surgery 09/20/22 Physician, Candida Davis MD [address] [place] [address] Family Medicine 01/25/22 03/18/23 Dom Quiñonez MD #2 [place] [address] Consulting Physician Pulmonary Disease 11/19/21 Rachelle Nava APRN, DATA WAREHOUSE ADMINISTRATOR #[address] [place] [address] Nurse Practitioner Advanced Practice Nurse 07/19/22 Irais Naylor APRN, DRY PAN OPERATOR #[address] [address] Nurse Practitioner Cardiology 06/27/23 07/29/24 Sharri Gaspar MD 2 [facility] [address] [address] Consulting Physician Cardiology 04/26/24 Amber Aldrich APRN, DRY PAN OPERATOR [address] [place] [address] Nurse Practitioner Cardiology 07/30/24 documented as of this encounter
--- OUTSIDE RECORDS SUMMARY | 2024-12-03 01:26 | XMS_ITS | Encounter Summary ---
Author Organization [facility] Address [address] [place] [address] Phone Care Team Providers Care Global Director Air And Climate Change Name Role Phone Phil Jacobo MD Unavailable [phone] Rajiv Mccormack NP Unavailable Unavailable Alize Acosta RAG BOILER, ASSOCIATE FIELD SERVICE ENGINEER Unavailable +[phone] Dayo Chaney MD Unavailable Juanita Hauser RN Unavailable Unavaila David Martinez MD Unavailable Emilia Tang MD Primary Care Provider +[phone] Maurilio Farley MD Unavailable PhysicianCandida MD Unavailable Rebeka Trinidad MD Primary Care Provider + [phone] Dom Quiñonez MD Unavailable Rachelle Nava RAG BOILER, PERMIT REVIEW ASSISTANT Unavailable + [phone] Irais Naylor RAG BOILER, ASSOCIATE FIELD SERVICE ENGINEER Unavailable + [phone] Lorri Leo RAG BOILER, ASSOCIATE FIELD SERVICE ENGINEER Primary Care Provider + [phone] Rebeka Trinidad MD Primary Care Provider + [phone] Lorri Leo RAG BOILER, ASSOCIATE FIELD SERVICE ENGINEER Primary Care Provider + [phone] Sharri Gaspar MD Unavailable Tani Biggs Primary Care Provider + [phone] Valdemar Amber Louise RAG BOILER, ASSOCIATE FIELD SERVICE ENGINEER Unavailable Reason for Visit * Reason Comments Medication Refill Encounter Details Date Type Department Care Team (Late st Contact Info) Description 07/25/2022 Refill [facility] - Primary Care - [place] [address] [place] [address] Jackeline Dimas, RAG BOILER, [facility] [address] [place] [address] Medication Refill Social History Tobacco [...] 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 [...] CDT Telemedicine [facility] [address] [place] [address] 01/03/2025 11:30 AM CDT [facility] [place] #[address] [place] [address] Rachelle Nava APRN, PERMIT REVIEW ASSISTANT #2 [place] [address] 02/11/2025 2:00 PM ROUSTABOUT CREW Telemedicine [facility] [address] [place] [address] 02/16/2025 2:00 PM ROUSTABOUT CREW Telemedicine [facility] [address] [place] [address] Alize Acosta, RAG BOILER, ASSOCIATE FIELD SERVICE ENGINEER [address] [place] [address] 02/21/2025 3:45 PM ROUSTABOUT CREW Office Visit [facility] - Endocrinology - [place] #[address] [place] [address] David Salmon MD #[address] [address] 03/04/2025 3:10 PM ROUSTABOUT CREW [facility] [place] [facility] [place] [address] 03/04/2025 3:30 PM ROUSTABOUT CREW [facility] [place] [address] [place] [address] Tani Biggs, PAC [address] [place] [address] 03/17/2025 1:30 PM ROUSTABOUT CREW Lab [facility] Services [address] [place] [address] Melony Asif Stacey, [facility] [address] [place] [address] Discharge Disposition: Discharged to home or Selfcare 03/25/2025 1:20 PM ROUSTABOUT CREW [facility] [address] [place] [address] Melony Asif Stacey, [facility] [address] [place] [address] Discharge Disposition: Discharged to home or Selfcare 04/25/2025 2:00 PM ROUSTABOUT CREW Office Visit [facility] - Cardiology - [place] [address] [place] [address] Laisha Griffin, DO [address] [address] 07/18/2025 1:00 PM CDT Office Visit [facility] - Pulmonology & Sleep Medicine [facility] #[address] [place] [address] Dom Quiñonez MD #2 [place] [address] documented as of this encounter Goals Goal Patient Goal Type Associated Problems Recent Progress Patient-Stated? Author Chronic Disease Management Chronic Disease Management Improving( 2:39 PM CDT) No Renita Quezada RN [...] as recommended. Depression Depression Improving( 2:27 PM ROUSTABOUT CREW) No Breanne Saldana LCSW Note: Goal/Objective: Decrease [...] 19 04/18/2024 04/18/2024 04/18/2024 10:4 7 PM ROUSTABOUT CREW Respiratory Rule-Out 05/06/2024 05/06/2024 025 9:20 AM ROUSTABOUT CREW COVID - 19 05/06/2024 05/06/2024 05/06/2024 9:19 AM ROUSTABOUT CREW Assessment Noted Time PHQ-9 Depression Total Score: 24 022 3:31 PM ROUSTABOUT CREW documented as of this encounter Care Teams Global Director Air And Climate Change Relationship Specialty Start Date End Date Emilia Tang MD [address] [place] [address] PCP - General Family Medicine 06/07/22 03/25/23 Rebeka Trinidad MD [address] [place] [address] PCP - General Family Medicine 03/26/23 03/29/24 Lorri Leo APRN, ASSOCIATE FIELD SERVICE ENGINEER [address] [place] [address] PCP - General Certified Nurse Practitioner 03/30/24 04/20/24 Rebeka Trinidad MD [address] [place] [address] PCP - General Family Medicine 04/21/24 04/21/24 Lorri Leo APRN, ASSOCIATE FIELD SERVICE ENGINEER [address] [place] [address] PCP - General Certified Nurse Practitioner 04/22/24 05/30/24 Tani Biggs PAC [address] [place] [address] PCP - General Physician Sergeant Of Officers 05/31/24 Phil Jacobo MD #[address] [place] [address] Consulting Physician Neurology 03/07/21 Rajiv Mccormack, KELI [address] [place] [address] Nurse Practitioner Gastroenterology 03/07/21 Alize Acosta, RAG BOILER, ASSOCIATE FIELD SERVICE ENGINEER [address] [place] [address] Virtual Advanced Care (VAC) MACHINE PACKAGER Advanced Practice Nurse 08/30/21 Dayo Chaney MD [address] [place] [address] Vp Strategic Planning Cardiovascular Disease - Cardiology 09/20/21 02/12/24 Juanita Mercado RN [place] Registered Nurse Cardiology 12/24/21 02/12/24 David Salmon MD #[address] [address] Consulting Physician Endocrinology 01/15/22 Maurilio Farley MD #[address] [address] Consulting Physician Colon and Rectal Surgery 09/20/22 PhysicianCandida MD [address] [place] [address] Family Medicine 01/25/22 03/18/23 Dom Quiñonez MD #2 [place] [address] Consulting Physician Pulmonary Disease 11/19/21 Rachelle Nava APRN, PERMIT REVIEW ASSISTANT #[address] [place] [address] Nurse Practitioner Advanced Practice Nurse 07/19/22 Irais Naylor APRN, ASSOCIATE FIELD SERVICE ENGINEER #2 [facility] [address] [place] [address] Nurse Practitioner Cardiology 06/27/23 07/29/24 Sharri Gaspar MD 2 [facility] [address] [place] [address] Consulting Physician Cardiology 04/26/24 Amber Aldrich APRN, ASSOCIATE FIELD SERVICE ENGINEER #[address] [place] [address] Nurse Practitioner Cardiology 07/30/24 documented as of this encounter
--- OUTSIDE RECORDS SUMMARY | 2024-12-03 01:26 | XMS_ITS | Encounter Summary ---
Author Organization [facility] Address [address] [place] [address] Phone Care Team Providers Care Avionics Test Technician Name Role Phone Phil Jacobo MD Unavailable [phone] Rajiv Mccormack NP Unavailable Unavailable Alize Acosta GEAR STRAIGHTENER, CURTAIN DRIER Unavailable +[phone] Dayo Chaney MD Unavailable Juanita Hauser RN Unavailable Unavaila David Martinez MD Unavailable Emilia Tang MD Primary Care Provider [phone] Maurilio Farley MD Unavailable PhysicianCandida MD Unavailable Rebeka Trinidad MD Primary Care Provider + [phone] Dom Quiñonez MD Unavailable Rachelle Nava GEAR STRAIGHTENER, LINUX PROGRAMMER Unavailable + [phone] Irais Naylor GEAR STRAIGHTENER, CURTAIN DRIER Unavailable + [phone] Lorri Leo GEAR STRAIGHTENER, CURTAIN DRIER Primary Care Provider + [phone] Rebeka Trinidad MD Primary Care Provider [phone] Lorri Leo GEAR STRAIGHTENER, CURTAIN DRIER Primary Care Provider + [phone] Sharri Gaspar MD Unavailable Tani Biggs Primary Care Provider + [phone] Valdemar Amber Burnettee GEAR STRAIGHTENER, CURTAIN DRIER Unavailable Reason for Visit * Reason Comments Medication Refill Encounter Details Date Type Department Care Team (Late st Contact Info) Description 12/19/2022 Refill [facility] - Neurology - [place] [address] [place] [address] Rachelle Nava, GEAR STRAIGHTENER, LINUX PROGRAMMER #[address] [place] [address] Medication Refill Social History Tobacco Use Types [...] 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 [...] Dept 11/06/22 Office Visit Emilia Tang MD [facility] 10/10/22 Office Visit Emilia Tang MD [facility] 09/16/22 Office Visit Rachelle Nava APRN, LINUX PROGRAMMER [facility] Neurology [facility] 09/06/22 Office Visit Emilia Tang MD [facility] 07/19/22 Office Visit Rachelle Nava APRN, LINUX PROGRAMMER [facility] Neurology [facility] 06/07/22 Office Visit Emilia Tang MD [facility] Showing recent visits within past 365 days and meeting all other requirements Future Appointments Date Type Provider Dept 02/06/23 Appointment Emilia Tang MD [facility] 03/19/23 Appointment Rachelle Nava APRN, LINUX PROGRAMMER [facility] Neurology [facility] Showing future appointments within next 90 days and meeting all other requirements documented in this encounter Plan of Treatment Upcoming Encounters Date Type Department Care Team (Late st Contact Info) Description 12/10/2024 2:40 PM CDT Telemedicine [facility] [address] [place] [address] 01/03/2025 11:30 AM CDT Office Visit [facility] - Neurology - [place] [address] [place] [address] Rachelle Nava, GEAR STRAIGHTENER, LINUX PROGRAMMER #[address] [place] [address] 02/11/2025 2:00 PM DEPUTY SHERIFF CHIEF Telemedicine [facility] [address] [place] [address] 02/16/2025 2:00 PM DEPUTY SHERIFF CHIEF Telemedicine [facility] [address] [place] [address] Alize Acosta, GEAR STRAIGHTENER, CURTAIN DRIER [address] [place] [address] 02/21/2025 3:45 PM DEPUTY SHERIFF CHIEF Office [facility] #[address] [place] [address] David Salmon MD #[address] [address] 03/04/2025 3:10 PM DEPUTY SHERIFF CHIEF [facility] [place] [address] [place] [address] 03/04/2025 3:30 PM DEPUTY SHERIFF CHIEF Office Visit [facility] Primary Care - [place] [address] [place] [address] Tani Biggs, [facility] [address] [place] [address] 03/17/2025 1:30 PM DEPUTY SHERIFF CHIEF [facility] [address] [place] [address] Melony Asif, PAC [address] [place] [address] Discharge Disposition: Discharged to home or Selfcare 03/25/2025 1:20 PM DEPUTY SHERIFF CHIEF Office Visit [facility] Oncology Services [address] [place] [address] Melony Asif August, [address] [place] [address] Discharge Disposition: Discharged to home or Selfcare 04/25/2025 2:00 PM DEPUTY SHERIFF CHIEF Office Visit [facility] Card[facility] [address] [place] [address] Laisha Griffin, DO [address] [address] 07/18/2025 1:00 PM CDT Office Visit [facility] Pulmonology & Sleep Medicine [facility] [address] [place] [address] Dom Quiñonez MD #[address] [place] [address] documented as of this encounter Goals Goal [...] diet Depression Depression Improving(0 03/15/2022 2:27 PM DEPUTY SHERIFF CHIEF) No Breanne Saldana, ASSOCIATE ATTORNEY Note: Goal/Objective: Decrease symptoms of depression associated [...] 19 04/18/2024 04/18/2024 04/18/2024 10:4 7 PM DEPUTY SHERIFF CHIEF Respiratory Rule-Out 05/06/2024 05/06/2024 025 9:20 AM DEPUTY SHERIFF CHIEF COVID - 19 05/06/2024 05/06/2024 05/06/2024 9:19 AM DEPUTY SHERIFF CHIEF Assessment Noted Time PHQ-9 Depression Total Score: 18 023 9:24 AM CDT documented as of this encounter Care Teams Avionics Test Technician Relationship Specialty Start Date End Date Emilia Tang MD [address] [place] [address] PCP - General Family Medicine 06/07/22 03/25/23 Rebeka Trinidad MD [address] [place] [address] PCP - General Family Medicine 03/26/23 03/29/24 Lorri Leo APRN, CURTAIN DRIER [address] [place] [address] PCP - General Certified Nurse Practitioner 03/30/24 04/20/24 Rebeka Trinidad MD [address] [place] [address] PCP - General Family Medicine 04/21/24 04/21/24 Lorri Leo APRN, CURTAIN DRIER [address] [place] [address] PCP - General Certified Nurse Practitioner 04/22/24 05/30/24 Tani Biggs PAC [address] [place] [address] PCP - General Physician Travel Assistant 05/31/24 Phil Jacobo MD #[address] [place] [address] Consulting Physician Neurology 03/07/21 Rajiv Mccormack, KELI [address] [place] [address] Nurse Practitioner Gastroenterology 03/07/21 Alize Acosta, GEAR STRAIGHTENER, CURTAIN DRIER [address] [place] [address] Virtual Advanced Care (VAC) TOE PUNCHER Advanced Practice Nurse 08/30/21 Dayo Chaney MD [address] [place] [address] Ict Systems Test Engineer Cardiovascular Disease - Cardiology 09/20/21 02/12/24 Juanita Mercado RN [place] Registered Nurse Cardiology 12/24/21 02/12/24 David Salmon MD #[address] [address] Consulting Physician Endocrinology 01/15/22 Maurilio Farley MD #[address] [address] Consulting Physician Colon and Rectal Surgery 09/20/22 Physician, Candida Davis MD [address] [place], [place] [address] Family Medicine 01/25/22 03/18/23 Dom Quiñonez MD #[address] [place] [address] Consulting Physician Pulmonary Disease 11/19/21 Rachelle Nava APRN, LINUX PROGRAMMER #[address] [place] [address] Nurse Practitioner Advanced Practice Nurse 07/19/22 Irais Naylor APRN, CURTAIN DRIER [address] [facility] [address] [place] [address] Nurse Practitioner Cardiology 06/27/23 07/29/24 Sharri Gaspar MD [address] [place] [address] Consulting Physician Cardiology 04/26/24 Amber Aldrich APRN, CURTAIN DRIER #[address] [place] [address] Nurse Practitioner Cardiology 07/30/24 documented as of this encounter
--- OUTSIDE RECORDS SUMMARY | 2024-12-03 01:26 | XMS_ITS | Encounter Summary ---
Author Organization [facility] Address [address] [place] [address] Phone Care Team Providers Care Rn Mobile Name Role Phone Jackeline Dimas BODYWORK THERAPIST, ART PROFESSOR Primary Care Provider Phil Jacobo MD Unavailable [phone] Rajiv Mccormack NP Unavailable Unavailable Alize Acosta BODYWORK THERAPIST, ART PROFESSOR Unavailable [phone] Dayo Chaney MD Unavailable Juanita Hauser RN Unavailable UnavailDavid Alexandre MD Unavailable Emilia Tang MD Primary Care Provider [phone] Maurilio Farley MD Unavailable Physician, Candida Davis MD Unavailable Rebeka Trinidad MD Primary Care Provider + [phone] Dom Quiñonez MD Unavailable Rachelle Nava BODYWORK THERAPIST, PURCHASING MANAGER/SALES Unavailable + [phone] Irais Naylor BODYWORK THERAPIST, ART PROFESSOR Unavailable + [phone] Lorri Leo BODYWORK THERAPIST, ART PROFESSOR Primary Care Provider [phone] Rebeka Trinidad MD Primary Care Provider + [phone] Ahmet Lorri M BODYWORK THERAPIST, [facility] Primary Care Provider + [phone] Sharri Gaspar MD Unavailable Tani Biggs [facility] Primary Care Provider [phone] Amber Aldrich BODYWORK THERAPIST, [facility] Unavailable Reason for Visit * Reason Comments Medication Refill Encounter Details Date Type Department Care Team (Late st Contact Info) Description 11/08/2021 Refill [facility] - Primary Care - [place] [address] [place] [address] Jackeline Dimas BODYWORK THERAPIST, [facility] [address] [place] [address] Medication Refill Social History Tobacco [...] 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 Not [...] CDT Telemedicine [facility] [address] [place] [address] 01/03/2025 11:30 AM CDT Office Visit [facility] - Neurology - [place] [address] [place] [address] Rachelle Nava APRN, PURCHASING MANAGER/SALES [address] [place] [address] 02/11/2025 2:00 PM FLUTE GRINDER Telemedicine [facility] [address] [place] [address] 02/16/2025 2:00 PM FLUTE GRINDER Telemedicine [facility] [address] [place] [address] Alize Acosta, BODYWORK THERAPIST, ART PROFESSOR [address] [place] [address] 02/21/2025 3:45 PM FLUTE GRINDER Office Visit [facility] - Endocrinology - [place] [address] [place] [address] David Samlon MD #[address] [address] 03/04/2025 3:10 PM FLUTE GRINDER Lab [facility] [place] [address] 03/04/2025 3:30 PM FLUTE GRINDER Office Visit [facility] - Primary Care - [place] [address] [place] [address] Tani Biggs, [facility] [address] [place] [address] 03/17/2025 1:30 PM FLUTE GRINDER [facility] [address] [place] [address] Melony Asif Stacey, [facility] [address] [place] [address] Discharge Disposition: Discharged to home or Selfcare 03/25/2025 1:20 PM FLUTE GRINDER Office Visit [facility] Oncology Services [address] [place] [address] Melony Asif Stacey, [facility] [address] [place] [address] Discharge Disposition: Discharged to home or Selfcare 04/25/2025 2:00 PM FLUTE GRINDER Office Visit [facility] Medical [facility] - Cardiology - [place] [address] [place] [address] Laisha Griffin, DO [address] [address] 07/18/2025 1:00 PM CDT Office Visit [facility] - Pulmonology & Sleep Medicine [facility] #[address] [place] [address] Dom Quiñonez MD [address] [place] [address] documented as of this encounter [...] 19 04/18/2024 04/18/2024 04/18/2024 10:4 7 PM FLUTE GRINDER Respiratory Rule-Out 05/06/2024 05/06/2024 025 9:20 AM FLUTE GRINDER COVID - 19 05/06/2024 05/06/2024 05/06/2024 9:19 AM FLUTE GRINDER Assessment Noted Time PHQ-9 Depression Total Score: 0 09/01/19 20 11:58 AM CDT documented as of this encounter Care Teams Rn Mobile Relationship Specialty Start Date End Date Jackeline Dimas, BODYWORK THERAPIST, ART PROFESSOR [address] [place] [address] PCP - General Advanced Practice Nurse 07/31/17 Emilia Tang MD [address] [place] [address] PCP - General Family Medicine 06/07/22 03/25/23 Rebeka Trinidad MD [address] [place] [address] PCP - General Family Medicine 03/26/23 03/29/24 Lorri Leo APRN, ART PROFESSOR [address] [place] [address] PCP - General Certified Nurse Practitioner 03/30/24 04/20/24 Rebeka Trinidad MD [address] [place] [address] PCP - General Family Medicine 04/21/24 04/21/24 Lorri Leo APRN, ART PROFESSOR [address] [place] [address] PCP - General Certified Nurse Practitioner 04/22/24 05/30/24 Tani Biggs PAC [address] [place] [address] PCP - General Physician Stock Feeder 05/31/24 Phil Jcaobo MD #[address] [place] [address] Consulting Physician Neurology 03/07/21 Rajiv Mccormack, RN BARIATRIC #[address] [place] [address] Nurse Practitioner Gastroenterology 03/07/21 Alize Acosta, RUSSELL, ART PROFESSOR [address] [place] [address] Virtual Advanced Care (VAC) DOOR GLASS INSTALLER Advanced Practice Nurse 08/30/21 Dayo Chaney MD [address] [place] [address] Arbor Press Operator Cardiovascular Disease - Cardiology 09/20/21 02/12/24 Juanita Mercado, [place] Registered Nurse Cardiology 12/24/21 02/12/24 David Salmon MD #[address] [address] Consulting Physician Endocrinology 01/15/22 Maurilio Farley MD #[address] [address] Consulting Physician Colon and Rectal Surgery 09/20/22 Physician, Candida Davis MD [address] [place] [address] Family Medicine 01/25/22 03/18/23 Dom Quiñonez MD #[address] [place] [address] Consulting Physician Pulmonary Disease 11/19/21 Rachelle Nava APRN, PURCHASING MANAGER/SALES #[address] [place] [address] Nurse Practitioner Advanced Practice Nurse 07/19/22 Irais Naylor APRN, ART PROFESSOR #2 [facility] [address] [place] [address] Nurse Practitioner Cardiology 06/27/23 07/29/24 Sharri Gaspar, MD [address] [address] Consulting Physician Cardiology 04/26/24 Amber Aldrich APRN, ART PROFESSOR #[address] [place] [address] Nurse Practitioner Cardiology 07/30/24 documented as of this encounter
--- OUTSIDE RECORDS SUMMARY | 2024-12-03 01:26 | XMS_ITS | Encounter Summary ---
Author Organization [facility] Address [address] [place] [address] Phone Care Team Providers Care Plow Mechanic Name Role Phone Phil Jacobo MD Unavailable [phone] Rajiv Mccormack NP Unavailable Unavailable Alize Acosta MECHANICAL ENGINEERING PROFESSOR, BODY SHOP ESTIMATOR Unavailable +[phone] Dayo Chaney MD Unavailable Juanita Hauser RN Unavailable Unavaila David Martinez MD Unavailable Emilia Tang MD Primary Care Provider [phone] Maurilio Farley MD Unavailable PhysicianCandida MD Unavailable Rebeka Trinidad MD Primary Care Provider + [phone] Dom Quiñonez MD Unavailable Rachelle Nava MECHANICAL ENGINEERING PROFESSOR, PLATE AND FRAME FILTER OPERATOR Unavailable + [phone] Irais Naylor MECHANICAL ENGINEERING PROFESSOR, BODY SHOP ESTIMATOR Unavailable + [phone] Lorri Leo MECHANICAL ENGINEERING PROFESSOR, BODY SHOP ESTIMATOR Primary Care Provider + [phone] Rebeka Trinidad MD Primary Care Provider + [phone] Lorri Leo MECHANICAL ENGINEERING PROFESSOR, BODY SHOP ESTIMATOR Primary Care Provider + [phone] Sharri Gaspar MD Unavailable Tani Biggs Primary Care Provider + [phone] ValdemarAmber Dinora WELLS, BODY SHOP ESTIMATOR Unavailable Reason for Visit * Reason Comments Medication Refill Encounter Details Date Type Department Care Team (Late st Contact Info) Description 12/01/2022 Refill [facility] - Primary Care - [place] [address] [place] [address] Emilia Tang MD [address] [place] [address] Medication Refill Social History Tobacco [...] 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 Not [...] CDT Telemedicine [facility] [address] [place] [address] 01/03/2025 11:30 AM CDT [facility] [place] [address] [place] [address] Rachelle Nava APRN, PLATE AND FRAME FILTER OPERATOR #[address] [place] [address] 02/11/2025 2:00 PM OVEN DUMPER Telemedicine [facility] [address] [place] [address] 02/16/2025 2:00 PM OVEN DUMPER Telemedicine [facility] [address] [place] [address] Alize Acosta, MECHANICAL ENGINEERING PROFESSOR, BODY SHOP ESTIMATOR [address] [place] [address] 02/21/2025 3:45 PM OVEN DUMPER Office Visit [facility] - Endocrinology - [place] [address] [place] [address] David Salmon MD #[address] [phone] 03/04/2025 3:10 PM OVEN DUMPER [facility] [place] [address] [place] [address] 03/04/2025 3:30 PM OVEN DUMPER Office Visit [facility] - Primary Care - [place] [address] [place] [address] Tani Biggs, PAC [address] [place] [address] 03/17/2025 1:30 PM OVEN DUMPER [facility] [address] [place] [phone] Melony Asif, PAC [address] [place] [address] Discharge Disposition: Discharged to home or Selfcare 03/25/2025 1:20 PM OVEN DUMPER [facility] [address] [place] [address] Melony Asif Stacey, PAC [address] [place] [address] Discharge Disposition: Discharged to home or Selfcare 04/25/2025 2:00 PM OVEN DUMPER Office Visit [facility] - Cardiology - [place] [address] [place] [address] Laisha Griffin, DO [address] [address] 07/18/2025 1:00 PM CDT Office Visit [facility] - Pulmonology & Sleep Medicine - [place] [address] [place] [address] Dom Quiñonez MD #[address] [place] [address] documented as of this encounter [...] diet Depression Depression Improving(0 03/15/2022 2:27 PM OVEN DUMPER) No Breanne Saldana LCSW Note: Goal/Objective: Decrease [...] - 04/18/2024 04/18/2024 04/18/2024 10:4 7 PM OVEN DUMPER Respiratory Rule-Out 05/06/2024 05/06/2024 025 9:20 AM OVEN DUMPER COVID - 05/06/2024 05/06/2024 05/06/2024 9:19 AM OVEN DUMPER Assessment Noted Time PHQ-9 Depression Total Score: 18 023 9:24 AM CDT documented as of this encounter Care Teams Plow Mechanic Relationship Specialty Start Date End Date Emilia Tang MD [address] [place] [address] PCP - General Family Medicine 06/07/22 03/25/23 Rebeka Trinidad MD [address] [place] [address] PCP - General Family Medicine 03/26/23 03/29/24 Lorri Leo APRN, BODY SHOP ESTIMATOR [address] [place] [address] PCP - General Certified Nurse Practitioner 03/30/24 04/20/24 Rebeka Trinidad MD [address] [place] [address] PCP - General Family Medicine 04/21/24 04/21/24 Lorri Leo APRN, BODY SHOP ESTIMATOR [address] [place], [place] [phone] PCP - General Certified Nurse Practitioner 04/22/24 05/30/24 Tani Biggs, PAC [address] [place] [address] PCP - General Physician Residential Recycle Driver 05/31/24 Phil Jacobo MD [address] [place] [address] Consulting Physician Neurology 03/07/21 Rajiv Mccormack, RN PROCEDURES [address] [place] [address] Nurse Practitioner Gastroenterology 03/07/21 Alize Acosta APRN, BODY SHOP ESTIMATOR [address] [place] [address] Virtual Advanced Care (VAC) POWER STATION OPERATOR Advanced Practice Nurse 08/30/21 Dayo Chaney MD [facility] [place] [address] Director Of Player Personnel Cardiovascular Disease - Cardiology 09/20/21 02/12/24 Juanita Mercado, [place] Registered Nurse Cardiology 12/24/21 02/12/24 David Salmon MD #[address] [phone] Consulting Physician Endocrinology 01/15/22 Maurilio Farley MD #[address] [address] Consulting Physician Colon and Rectal Surgery 09/20/22 PhysicianCandida MD [address] [place] [address] Family Medicine 01/25/22 03/18/23 Dom Quiñonez MD #[address] [place] [address] Consulting Physician Pulmonary Disease 11/19/21 Rachelle Nava, MECHANICAL ENGINEERING PROFESSOR, PLATE AND FRAME FILTER OPERATOR [address] [place] [address] Nurse Practitioner Advanced Practice Nurse 07/19/22 Irais Naylor MECHANICAL ENGINEERING PROFESSOR, BODY SHOP ESTIMATOR #[address] [address] Nurse Practitioner Cardiology 06/27/23 07/29/24 Sharri Gaspar MD [address] [address] Consulting Physician Cardiology 04/26/24 Amber Aldrich APRN, BODY SHOP ESTIMATOR [address] [place] [address] Nurse Practitioner Cardiology 07/30/24 documented as of this encounter
--- OUTSIDE RECORDS SUMMARY | 2024-12-03 01:26 | XMS_ITS | Encounter Summary ---
Author Organization [facility] Address [address] [place] [address] Phone Care Team Providers Care Crepe Maker Name Role Phone Phil Jacobo MD Unavailable [phone] Rajiv Mccormack NP Unavailable Unavailable Alize Acosta FURNITURE AND BEDDING INSPECTOR, MACHINE ETCHER Unavailable [phone] Dayo Chaney MD Unavailable Juanita Hauser RN Unavailable Unavaila David Martinez MD Unavailable Emilia Tang MD Primary Care Provider [phone] Maurilio Farley MD Unavailable PhysicianCandida MD Unavailable Rebeka Trinidad MD Primary Care Provider + [phone] Dom Quiñonez MD Unavailable Rachelle Nava FURNITURE AND BEDDING INSPECTOR, MARKETING RESEARCHER Unavailable + [phone] Irais Naylor FURNITURE AND BEDDING INSPECTOR, MACHINE ETCHER Unavailable + [phone] Lorri Leo FURNITURE AND BEDDING INSPECTOR, MACHINE ETCHER Primary Care Provider + [phone] Rebeka Trinidad MD Primary Care Provider + [phone] Lorri Leo FURNITURE AND BEDDING INSPECTOR, MACHINE ETCHER Primary Care Provider + [phone] Sharri Gaspar MD Unavailable Tani Biggs Primary Care Provider + [phone] Valdemar Amber Dinora WELLS, MACHINE ETCHER Unavailable Reason for Visit * Reason Comments Medication Refill Encounter Details Date Type Department Care Team (Late st Contact Info) Description 09/04/2022 Refill [facility] - Endocrinology - [place] [address] [place] [address] David Salmon MD #[address] [address] Medication Refill Social History Tobacco [...] 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 TRUEplus 5-Bevel Pen Crab Orchard 32G X 4 MM Misc [Pharmacy Med Name: TRUEPLUS 5- BEVEL PEN NEEDLE [id number]] 100 Each 1 Sig: USE DAILY DIRECTED. Next appt: 10/31/2022 documented in this encounter Plan of Treatment Upcoming Encounters Date Type Department Care Team (Late st Contact Info) Description 12/10/2024 2:40 PM CDT Telemedicine [facility] [address] [place] [address] 01/03/2025 11:30 AM CDT Office Visit [facility] - Neurology - [place] [address] [place] [address] Rachelle Nava APRN, MARKETING RESEARCHER [address] [place] [address] 02/11/2025 2:00 PM PROFILE TRIMMER Telemedicine [facility] [address] [place] [address] 02/16/2025 2:00 PM PROFILE TRIMMER Telemedicine [facility] [address] [place] [address] Alize Acosta, FURNITURE AND BEDDING INSPECTOR, MACHINE ETCHER [address] [place] [address] 02/21/2025 3:45 PM PROFILE TRIMMER Office Visit [facility] - Endocrinology - [place] [address] [place] [address] David Salmon MD #[address] [address] 03/04/2025 3:10 PM PROFILE TRIMMER Lab [facility] Primary Care - [place] [address] [place] [address] 03/04/2025 3:30 PM PROFILE TRIMMER Office Visit [facility] Primary Care - [place] [address] [place] [address] Tani Biggs, [facility] [address] [place] [address] 03/17/2025 1:30 PM PROFILE TRIMMER Lab [facility] Oncology Services [address] [place] [address] Melony Asif, PAC [address] [place] [address] Discharge Disposition: Discharged to home or Selfcare 03/25/2025 1:20 PM PROFILE TRIMMER Office Visit [facility] Oncology Services [address] [place] [address] Melony Asif, PAC [address] [place] [address] Discharge Disposition: Discharged to home or Selfcare 04/25/2025 2:00 PM PROFILE TRIMMER Office Visit [facility] - Cardiology - [place] [address] [place] [address] Laisha Griffin, DO [address] [address] 07/18/2025 1:00 PM CDT Office Visit [facility] - Pulmonology & Sleep Medicine - [place] [address] [place] [address] Dom Quiñonez MD [address] [place] [address] documented as of this encounter Goals Goal [...] diet Depression Depression Improving(0 03/15/2022 2:27 PM PROFILE TRIMMER) No Breanne Saldana LCSW Note: Goal/Objective: Decrease [...] 19 04/18/2024 04/18/2024 04/18/2024 10:4 7 PM PROFILE TRIMMER Respiratory Rule-Out 05/06/2024 05/06/2024 025 9:20 AM PROFILE TRIMMER COVID - 19 05/06/2024 05/06/2024 05/06/2024 9:19 AM PROFILE TRIMMER Assessment Noted Time PHQ-9 Depression Total Score: 24 022 3:31 PM PROFILE TRIMMER documented as of this encounter Care Teams Crepe Maker Relationship Specialty Start Date End Date Emilia Tang MD [address] [place] [address] PCP - General Family Medicine 06/07/22 03/25/23 Rebeka Trinidad MD [address] [place] [address] PCP - General Family Medicine 03/26/23 03/29/24 Lorri Leo APRN, MACHINE ETCHER [address] [place] [address] PCP - General Certified Nurse Practitioner 03/30/24 04/20/24 Rebeka Trinidad MD [address] [place], [place] [phone] PCP - General Family Medicine 04/21/24 04/21/24 Lorri Leo FURNITURE AND BEDDING INSPECTOR, MACHINE ETCHER [address] [place], [place] [phone] PCP - General Certified Nurse Practitioner 04/22/24 05/30/24 Tani Biggs, PAC [address] [place] [address] PCP - General Physician Sustainable Development Policy Analyst 05/31/24 Phil Jacobo MD [address] [place] [address] Consulting Physician Neurology 03/07/21 Rajiv Mccormack, KELI [address] [place] [address] Nurse Practitioner Gastroenterology 03/07/21 Alize Acosta, RUSSELL, MACHINE ETCHER [address] [place] [address] Virtual Advanced Care (VAC) JET MECHANIC Advanced Practice Nurse 08/30/21 Dayo Chaney MD [address] [facility] [place] [address] Tractor Trailer Mechanic Cardiovascular Disease - Cardiology 09/20/21 02/12/24 Juanita Mercado, [place] Registered Nurse Cardiology 12/24/21 02/12/24 David Salmon MD #[address] [phone] Consulting Physician Endocrinology 01/15/22 Maurilio Farley MD #[address] [address] Consulting Physician Colon and Rectal Surgery 09/20/22 PhysicianCandida MD [address] [place] [address] Family Medicine 01/25/22 03/18/23 Dom Quiñonez MD #[address] [place] [address] Consulting Physician Pulmonary Disease 11/19/21 Rachelle Nava, FURNITURE AND BEDDING INSPECTOR, MARKETING RESEARCHER [address] [place] [address] Nurse Practitioner Advanced Practice Nurse 07/19/22 Irais Naylor, FURNITURE AND BEDDING INSPECTOR, MACHINE ETCHER #2 [facility] [address] [address] Nurse Practitioner Cardiology 06/27/23 07/29/24 Sharri Gaspar MD 2 [facility] [place] [address] [address] Consulting Physician Cardiology 04/26/24 Amber Aldrich, FURNITURE AND BEDDING INSPECTOR, MACHINE ETCHER [address] [place] [address] Nurse Practitioner Cardiology 07/30/24 documented as of this encounter
--- OUTSIDE RECORDS SUMMARY | 2024-12-03 01:26 | XMS_ITS | Encounter Summary ---
Author Organization [facility] Address [address] [place] [address] Phone Care Team Providers Care Fashion Design Professor Name Role Phone Phil Jacobo MD Unavailable [phone] Rajiv Mccormack NP Unavailable Unavailable Alize Acosta APRN, PEDIATRIC ANESTHESIOLOGIST Unavailable [phone] Dayo Chaney MD Unavailable Juanita Hauser RN Unavailable UnavailDavid Alexandre MD Unavailable Maurilio Farley MD Unavailable Rebeka Trinidad MD Primary Care Provider + [phone] Dom Quiñonez MD Unavailable Rachelle Nava SUPPLY AND DISTRIBUTION MANAGER, BREAKER MACHINE OPERATOR Unavailable + [phone] Irais Naylor SUPPLY AND DISTRIBUTION MANAGER, PEDIATRIC ANESTHESIOLOGIST Unavailable + [phone] Lorri Leo SUPPLY AND DISTRIBUTION MANAGER, PEDIATRIC ANESTHESIOLOGIST Primary Care Provider + [phone] Rebeka Trinidad MD Primary Care Provider + [phone] Lorri Leo SUPPLY AND DISTRIBUTION MANAGER, PEDIATRIC ANESTHESIOLOGIST Primary Care Provider + [phone] Sharri Gaspar MD Unavailable Tani Biggs PAC Primary Care Provider + [phone] Amber Aldrich APRN, CNP Unavailable Encounter Details Date Type Department Care Team (Late st Contact Info) Description 09/12/2023 Transcribe Orders [facility] Central Scheduling [address] [place] [address] Rebeka Trinidad MD [address] [place] [address] Social History Tobacco Use Types Packs/Day Years Used Date Smoking Tobacco: Former Cigarettes 1 37.1 1 985 - 04/12/2021 Smokeless Tobacco: Never Alcohol Use Standard Drinks/Week Comments Not Currently 0 (1 standard drink = 0.6 oz pur e alcohol) last drank 2020 [facility] Utilities Answer Date Recorded In the past 12 months has [employer] [place] electric, gas, oil, or water [place] threatened to shut off services in your home? No 09/08/2023 Social Connection and Isolation Panel Answer Date Recorded In a typical week, how many times do you talk on the phone with family, friends, or neighbors? Once a week 09/08/19 How often do you get togethe r with friends or relatives? Never 09/08/2023 How often do you attend [facility] or sikh services? 1 to 4 times per year 09/08/2023 Do you belong to any clubs o r organizations such as mandaen groups, unions, fraternal or athletic groups, or [...] Total Score - Questions 1-9 18 / [facility] - Occupational Stress Questionnaire Answer Date Recorded [...] in the past 12 m [facility], were you homeless or living in a detention (including now)? 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 Not on file documented as of this encounter Plan of Treatment Upcoming Encounters Date Type Department Care Team (Late st Contact Info) Description 12/10/2024 2:40 PM CDT Telemedicine [facility] [address] [place] [address] 01/03/2025 11:30 AM CDT [facility] - Neurology - [place] [address] [place] [address] Rachelle Nava APRN, BREAKER MACHINE OPERATOR [address] [place] [address] 02/11/2025 2:00 PM AUTO RENTAL CLERK Telemedicine [facility] [address] [place] [address] 02/16/2025 2:00 PM AUTO RENTAL CLERK Telemedicine [facility] [address] [place] [address] Alize Acosta, RUSSELL, PEDIATRIC ANESTHESIOLOGIST [address] [place] [address] 02/21/2025 3:45 PM AUTO RENTAL CLERK [facility] - Endocrinology - [place] [address] [place] [address] David Salmon MD #[address] [address] 03/04/2025 3:10 PM AUTO RENTAL CLERK Lab [facility] Primary Care - [place] [address] [place] [address] 03/04/2025 3:30 PM AUTO RENTAL CLERK Office Visit [facility] - [place] [address] [place] [address] Tani Biggs, PAC [address] [place] [address] 03/17/2025 1:30 PM AUTO RENTAL CLERK Lab [facility] Oncology Services [address] [place] [address] Melony Asif, PAC [address] [place] [address] Discharge Disposition: Discharged to home or Selfcare 03/25/2025 1:20 PM AUTO RENTAL CLERK Office Visit [facility] Oncology Services [address] [place] [address] Melony Asif Stacey, PAC [address] [place] [address] Discharge Disposition: Discharged to home or Selfcare 04/25/2025 2:00 PM AUTO RENTAL CLERK Office Visit [facility] Cardiology [facility] [address] [place] [phone] Laisha Griffin, DO [address] [address] 07/18/2025 1:00 PM CDT [facility] - Pulmonology & Sleep Medicine - [place] [address] [place] [address] Dom Quiñonez MD [address] [place] [address] documented as of this encounter Goals Goal Patient Goal Type Associated Problems Recent Progress Patient-Stated? Author ACTIVITY Activity No change(08/08 2:42 PM CDT) Yes Maritza Vanegas, RN Note: Bonny will walk five days a week. Goal Reviewed with: Bonny Readiness to change: Department associated with goal: [facility] ADVANCED CARE Steps to achieve goal: Walking 5 days a week I want to be able to be around people and feel less depressed. Behavioral Health Worsening(0 09/22/2023 3:12 PM CDT) Yes Hilda Tinajero [facility] Note: Goal/Objective: Decrease symptoms of depression and anxiety. Anticipated Time Frame for Goal Completion: 3 months Goal Reviewed with: patient Readiness to change: Thinking about making a change Department associated with goal: [facility] Steps to achieve [...] diet Depression Depression Improving(0 03/15/2022 2:27 PM AUTO RENTAL CLERK) No Breanne Saldana, COKE WORKER Note: Goal/Objective: Decrease symptoms of depression [...] 19 04/18/2024 04/18/2024 04/18/2024 10:4 7 PM AUTO RENTAL CLERK Respiratory Rule-Out 05/06/2024 05/06/2024 025 9:20 AM AUTO RENTAL CLERK COVID - 19 05/06/2024 05/06/2024 05/06/2024 9:19 AM AUTO RENTAL CLERK Assessment Noted Time PHQ-9 Depression Total Score: 18 023 9:24 AM CDT documented as of this encounter Care Teams Fashion Design Professor Relationship Specialty Start Date End Date Rebeka Trinidad MD [address] [place] [address] PCP - General Family Medicine 03/26/23 03/29/24 Lorri Leo SUPPLY AND DISTRIBUTION MANAGER, PEDIATRIC ANESTHESIOLOGIST [address] [place] [address] [address] PCP - General Certified Nurse Practitioner 03/30/24 04/20/24 Rebeka Trinidad MD [address] [place], [place] [id number] PCP - General Family Medicine 04/21/24 04/21/24 Lorri Leo APRN, PEDIATRIC ANESTHESIOLOGIST [address] [place], [place] [id number] PCP - General Certified Nurse Practitioner 04/22/24 05/30/24 Tani Biggs PAC [address] [place] [address] PCP - General Physician Trainmaster 05/31/24 Phil Jacobo MD [address] [place] [address] Consulting Physician Neurology 03/07/21 Rajiv Mccormack, KELI [address] [place] [address] Nurse Practitioner Gastroenterology 03/07/21 Alize Acosta APRN, PEDIATRIC ANESTHESIOLOGIST [address] [place] [address] Virtual Advanced Care (VAC) TECHNICAL ILLUSTRATIONS MAP INKER Advanced Practice Nurse 08/30/21 Dayo Chaney MD [address] [place] [address] Commercial Insurance Underwriter Cardiovascular Disease - Cardiology 09/20/21 02/12/24 Juanita Mercado RN [place] Registered Nurse Cardiology 12/24/21 02/12/24 David Salmon MD #[address] [address] Consulting Physician Endocrinology 01/15/22 Maurilio Farley MD #[address] [address] Consulting Physician Colon and Rectal Surgery 09/20/22 Dom Quiñonez MD #[address] [place] [address] Consulting Physician Pulmonary Disease 11/19/21 Rachelle Nava, SUPPLY AND DISTRIBUTION MANAGER, BREAKER MACHINE OPERATOR [address] [place] [address] Nurse Practitioner Advanced Practice Nurse 07/19/22 Irais Naylor, SUPPLY AND DISTRIBUTION MANAGER, PEDIATRIC ANESTHESIOLOGIST #[address] [address] Nurse Practitioner Cardiology 06/27/23 07/29/24 Sharri Gaspar MD 2 [facility] [place] [address] [address] Consulting Physician Cardiology 04/26/24 Amber Aldrich, SUPPLY AND DISTRIBUTION MANAGER, PEDIATRIC ANESTHESIOLOGIST [address] [place] [address] Nurse Practitioner Cardiology 07/30/24 documented as of this encounter
--- OUTSIDE RECORDS SUMMARY | 2024-12-03 01:26 | XMS_ITS | Clinical Summary ---
Author Organization [facility] Address [address] [place] [address] Care Team Providers Care Crystal Flat Grinder Name Role Phone Tani Biggs Primary Care Provider [phone] Allergies Active Allergy Reactions Criticality Noted Date [...] 1 tablet (2 mg total) by mouth sample sawyer before breakfast 08/01/19 21 Active allopurinoL (ZYLOPRIM) [...] + MRI () - right kidney mass ([facility] [place]). Creatinine 1.1. Hx of post-menopausal bleeding s/p [...] MRI () - right kidney mass ([facility] Creatinine 1.1. Hx of post-menopausal bleeding s/p [...] + MRI () - right kidney mass ([facility] [place]). Creatinine 1.1. Hx of post-menopausal bleeding s/p [...] (04/29/2022): Added automatically from request for surgery [id number] Internal hemorrhoids 04/25/2022 Gastroparesis 05/23/2021 Erosive gastritis [...] Description 10/04/2024 11:40 AM CDT Office Visit [facility] Medicine ENT [address] [facility] Medical Office Building [address] [place] [address] Meli Campos MD EDDI (obstructive sleep apnea) (Primary Dx); Intolerance of continuous positive airway pressure (CPAP) ventilation 09/21/2024 8:00 AM CDT - 09/21/2024 8:[address] [facility] Operating Room [address] [place] [address] Meli Capmos MD DRUG INDUCED SLEEP ENDOSCOPY 09/21/2024 7:43 AM CDT Anesthesia Event [facility] Operating Room [address] [place] [address] Eryn Epstein MD PhD Oliva White, WEIGHT INSPECTOR 09/21/2024 6:12 AM CDT - 09/21/2024 10:27 AM CDT Hospital Encounter [facility] Operating Room [address] [place] [address] Meli Campos MD EDDI (obstructive sleep apnea) (Primary Dx) Discharge Disposition: Discharge to home or self care from Last 3 Months Immunizations Immunization Administration [...] on file Legal Sex Female 9:19 AM SEX WORKER OR ESCORT Gender Identity Female 06/03/2023 11:21 AM CDT Sexual Orientation Villegas 01/18/2021 9: 53 AM SEX WORKER OR ESCORT Obstetrics History Last Filed Vital Signs Vital [...] (Latest Contact Info) Description 01/25/2025 9:30 AM SEX WORKER OR ESCORT Hospital Encounter [facility] Operating Room [id number] [place] [address] [place] [address] [address] 01/25/2025 9:30 AM SEX WORKER OR ESCORT - 01/25/2025 12:30 PM SEX WORKER OR ESCORT Surgery [facility] Operating Room [address] [place] [address] [place] [address] [id number] TONSILLECTOMY & UVULOPHARYNGOPLASTY/1 50 min Scheduled Procedures Name Priority Associated Diagnoses Date/Ti me TONSILLECTOMY. EDDI (obstructive sleep apnea) 01/25/2025 9:30 AM SEX WORKER OR ESCORT UVULOPHARYNGOPLASTY EDDI (obstructive sleep apnea) 01/25/2025 9:30 AM SEX WORKER OR ESCORT Health Maintenance Due Date Last Done Comments [...] Additional history exists Hemoglobin A1C 07/24/2024 01/25/2024, 02/08/2023, 08/31/2016 Influenza Vaccine (#1) 2024 , 11/13/2021, [...] AM CDT EGFR Timed 04/18/2023 11:04 PM SEX WORKER OR ESCORT HEMOGLOBIN A1C STAT 04/15/2023 10:25 PM SEX WORKER OR ESCORT HIGH RISK HPV DNA DETECTION WITH GENOTYPING Routine 02/13/2023 1:39 PM SEX WORKER OR ESCORT Postmenopausal bleeding LIPID PANEL Routine 08/31/2016 6:28 [...] 132 70 - 199 mg/dL POC Performer [id number] ERI WELCH Blood 09/21/2024 7:01 AM CDT 09/21/2024 7:01 AM CDT Meli Campos MD LAB POCT ORDERABLES - DEVICE Final Result ERI [id number] [address] Department [place] [address] * eGFR (04/18/2023 11:04 PM SEX WORKER OR ESCORT) eGFR 65 >=60 mL/min/1. 73 m2 ERI [facility] Comment: Interpretive Data Reference Interval Normal [...] reviewed 2021. Blood 04/18/2023 11:0 4 PM SEX WORKER OR ESCORT 04/19/2023 12:33 AM SEX WORKER OR ESCORT Gerard Rodriguez MD LAB BLOOD ORDERABLES Fin al Result Performing Organization Address [facility] de Phone Number [facility] [place] [address] * (ABNORMAL) Hemoglobin A1c (04/15/2023 10:25 PM SEX WORKER OR ESCORT) [facility] Hgb A1C 5.8(H) 4.0 - 5.6 % [facility] Estimated Average Glucose 120 mg/dL [facility] Comment: The ADA recommends reporting an estimated Average Glucose (eAG) with all Hemoglobin A1c results using the equation derived from a study of 507 normal and diabetic adults. Minority populations were underrepresented and children were not included. (Diabetes Care 2020; 43(S1): S66-S76). The eAG is not equivalent to a fasting glucose. Blood 04/15/2023 10:2 5 PM SEX WORKER OR ESCORT 04/15/2023 11:38 PM SEX WORKER OR ESCORT Gerard Rodriguez MD LAB BLOOD ORDERABLES Fin al Result Performing Organization Address [facility] de Phone Number [facility] [place] [address] * High Risk HPV DNA Detection with Genotyping (Molecular component) (02/13/2023 1:39 PM SEX WORKER OR ESCORT) HPV HR 16 Not Detected Not Detected [facility] HPV HR 18 Not Detected Not Detected [facility] HPV HR Non 16/18 Not Detected Not Detected [facility] Comment: Interpretive Data Nucleic acid [...] test have been verified by the [facility] Molecular Infectious Disease laboratory. Correlate with separately reported cytology results, as applicable. Interpretive data last revised 22 Endocervical 02/13/2023 1:39 PM SEX WORKER OR ESCORT 02/14/2023 7:00 AM SEX WORKER OR ESCORT Narrative [facility] - 02/15/2023 2:10 AM SEX WORKER OR ESCORT Clinical history and diagnosis->screening pap Testing type->Screening Last menstrual period (date if known)->2019 Maty Gilbert MD LAB BODY FLUIDS AND STOOLS OR DERABLES Final Result [facility] Department [place] [address] * (ABNORMAL) Lipid panel (08/31/2016 6:28 AM [...] Final Re sult ERI VANEGAS (DAIANA) 1 [facility] Department [place] [address] from Last 3 Months or Most Recently Relevant to Health Maintenance Insurance [facility] MEDICARE ADVANTAGE [facility] Address: [address] [address] [place] [address] [employer]PA [facility] MEDICARE ADVANTAGE ID[employer] [facility] MEDICARE ADVANTAGE [facility]IC[facility] Address: [address] [address] Advance Directives For more information, please contact: [phone] * Full Code (Latest Code Status on [...] 11:00 AM 02/27/2021 11:00 AM Care Teams Crystal Flat Grinder Relationship Specialty Start Date End Date Tani Biggs PA [address] [place] [address] PCP - General Orthopedic Surgery 09/13/24
--- OUTSIDE RECORDS SUMMARY | 2024-12-03 01:26 | XMS_ITS ---
Author Organization [facility] Address [address] [place] [address] Phone Care Team Providers Care Display Mechanic Name Role Phone Phil Jacobo MD Unavailable [phone] Rajiv Mccormack NP Unavailable Unavailable Alize Acosta APRN, PRECISION AGRICULTURE SPECIALIST Unavailable David Salmon MD Unavailable Maurilio Farley MD Unavailable Dom Quiñonez MD Unavailable Rachelle Nava APRN, WELT STITCHER Unavailable + [phone] Sharri Gaspar MD Unavailable Tani Biggs Primary Care Provider [phone] Amber Aldrich APRN, PRECISION AGRICULTURE SPECIALIST Unavailable [facility] Status:Enrolled (Active) Start date:01/25/2022 Enrollment date:02/19/2023 Continued Care and Services Coordination
--- OUTSIDE RECORDS SUMMARY | 2024-12-03 01:26 | XMS_ITS | Encounter Summary ---
Author Organization [facility] Address [address] [place] [address] Phone Care Team Providers Care Tutor Coordinator Name Role Phone Jackeline Dimas CHARTER COACH DRIVER, WINDOW MACHINE OPERATOR Primary Care Provider Fiona Martinez ETL ANALYST Unavailable Unavailab Phil Ellis MD Unavailable [phone] Rajiv Mccormack NP Unavailable Unavailable Renita Quezada RN Unavailable Unavailable Alize Acosta CHARTER COACH DRIVER, WINDOW MACHINE OPERATOR Unavailable [phone] Dayo Chaney MD Unavailable Juanita Hauser RN Unavailable Unavaila David Martinez MD Unavailable Emilia Tang MD Primary Care Provider [phone] Maurilio Farley MD Unavailable Candida Turner MD Unavailable Rebeka Trinidad MD Primary Care Provider + [phone] Dom Quiñonez MD Unavailable Rachelle Nava CHARTER COACH DRIVER, SCREENER OPERATOR Unavailable + [phone] Irais Naylor CHARTER COACH DRIVER, WINDOW MACHINE OPERATOR Unavailable + [phone] Lorri Leo CHARTER COACH DRIVER, WINDOW MACHINE OPERATOR Primary Care Provider + [phone] Rebeka Trinidad MD Primary Care Provider [phone] Lorri Leo CHARTER COACH DRIVER, WINDOW MACHINE OPERATOR Primary Care Provider [phone] Sharri Gaspar MD Unavailable Tani Biggs Primary Care Provider + [phone] Amber Aldrich CHARTER COACH DRIVER, WINDOW MACHINE OPERATOR Unavailable Reason for Visit * Reason Comments Medication Refill Encounter Details Date Type Department Care Team ([facility] Contact Info) Description 05/09/2021 Refill [facility] [address] [place] [id number] Jackeline Dimas, CHARTER COACH DRIVER, WINDOW MACHINE OPERATOR [address] [place] [address] Medication Refill Social History Tobacco Use Types [...] 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 No / Unsure 05/07/2021 2:03 PM POLYMER ENGINEER documented as of this encounter Plan of Treatment Upcoming Encounters Date Type Department Care Team (Late Contact Info) Description 12/10/2024 2:40 PM CDT Telemedicine [facility] [address] [place] [address] 01/03/2025 11:30 AM CDT Office Visit [facility] - Neurology - [place] [address] [place] [address] Rachelle Nava, CHARTER COACH DRIVER, SCREENER OPERATOR [address] [place] [address] 02/11/2025 2:00 PM POLYMER ENGINEER Telemedicine [facility] [address] [place] [address] 02/16/2025 2:00 PM POLYMER ENGINEER Telemedicine [facility] [address] [place] [address] Alize Acosta, CHARTER COACH DRIVER, WINDOW MACHINE OPERATOR [address] [place] [address] 02/21/2025 3:45 PM POLYMER ENGINEER Office Visit [facility] - Endocrinology - [place] [address] [place] [address] David Salmon MD [address] [address] 03/04/2025 3:10 PM POLYMER ENGINEER [facility] [place] [address] [place] [address] 03/04/2025 3:30 PM POLYMER ENGINEER Office Visit [facility] - Primary Care - [place] [address] [place] [address] Tani Biggs PAC [address] [place] [address] 03/17/2025 1:30 PM POLYMER ENGINEER [facility] [address] [place] [address] Melony Asif August, PAC [address] [place] [address] Discharge Disposition: Discharged to home or Selfcare 03/25/2025 1:20 PM POLYMER ENGINEER Office Visit [facility] Oncology Services [address] [place] [address] Melony Asif August, PAC [address] [place] [address] Discharge Disposition: Discharged to home or Selfcare 04/25/2025 2:00 PM POLYMER ENGINEER Office Visit [facility] - Cardiology - [place] [address] [place] [address] Laisha Griffin, DO [address] [address] 07/18/2025 1:00 PM CDT Office Visit [facility] - Pulmonology & Sleep Medicine [facility] [address] [place] [address] Dom Quiñonez MD [address] [place] [address] documented as of this encounter Goals Goal [...] 19 04/18/2024 04/18/2024 04/18/2024 10:4 7 PM POLYMER ENGINEER Respiratory Rule-Out 05/06/2024 05/06/2024 025 9:20 AM POLYMER ENGINEER COVID - 19 05/06/2024 05/06/2024 05/06/2024 9:19 AM POLYMER ENGINEER Assessment Noted Time PHQ-9 Depression Total Score: 0 09/01/19 20 11:58 AM CDT documented as of this encounter Care Teams Tutor Coordinator Relationship Specialty Start Date End Date Jackeline Dimas, CHARTER COACH DRIVER, WINDOW MACHINE OPERATOR [address] [place] [address] PCP - General Advanced Practice Nurse 07/31/17 Emilia Tang MD [address] [place] [address] PCP - General Family Medicine 06/07/22 03/25/23 Rebeka Trinidad MD [address] [place] [address] PCP - General Family Medicine 03/26/23 03/29/24 Lorri Leo APRN, WINDOW MACHINE OPERATOR [address] [place] [address] PCP - General Certified Nurse Practitioner 03/30/24 04/20/24 Rebeka Trinidad MD [address] [place] [address] PCP - General Family Medicine 04/21/24 04/21/24 Lorri Leo APRN, WINDOW MACHINE OPERATOR [address] [place] [address] PCP - General Certified Nurse Practitioner 04/22/24 05/30/24 Tani Biggs, [facility] [address] [place] [address] PCP - General Physician Photograph Inspector 05/31/24 Fiona Martinez, [place] Tool And Die Machinist 03/01/21 08/23/21 Phil Jacoob MD [address] [place] [address] Consulting Physician Neurology 03/07/21 Rajiv Mccormack, AMERICAN BOARD CERTIFIED ORTHOTIST [address] [place] [address] Nurse Practitioner Gastroenterology 03/07/21 Renita Quezada, [place] Tool And Die Machinist 05/09/21 08/23/21 Alize Acosta APRN, WINDOW MACHINE OPERATOR [address] [place] [address] Virtual [facility] (VAC) CODER OPERATOR Advanced Practice Nurse 08/30/21 Dayo Chaney MD [address] [place] [address] Flying Teacher Cardiovascular Disease - Cardiology 09/20/21 02/12/24 Juanita Mercado, [place] Registered Nurse Cardiology 12/24/21 02/12/24 David Salmon MD #[address] [address] Consulting Physician Endocrinology 01/15/22 Maurilio Farley MD #[address] [address] Consulting Physician Colon and Rectal Surgery 09/20/22 PhysicianCandida MD [address] [place] [address] Family Medicine 01/25/22 03/18/23 Dom Quiñonez MD [address] [place] [address] Consulting Physician Pulmonary Disease 11/19/21 Rachelle Nava APRN, SCREENER OPERATOR [address] [place] [address] Nurse Practitioner Advanced Practice Nurse 07/19/22 Irais Naylor, CHARTER COACH DRIVER, WINDOW MACHINE OPERATOR #[address] [address] Nurse Practitioner Cardiology 06/27/23 07/29/24 Sharri Gaspar MD 2 [facility] [place] [address] [address] Consulting Physician Cardiology 04/26/24 Amber Aldrich APRN, WINDOW MACHINE OPERATOR [address] [place] [address] Nurse Practitioner Cardiology 07/30/24 documented as of this encounter
--- OUTSIDE RECORDS SUMMARY | 2024-12-03 01:26 | XMS_ITS | Encounter Summary ---
Author Organization [facility] Address [address] [place] [address] Phone Care Team Providers Care Ski Topper Name Role Phone Jackeline Dimas RECORDING ENGINEER, SHAFTING WORKER Primary Care Provider Fiona Martinez PROJECT SAFETY MANAGER Unavailable Unavailab Phil Ellis MD Unavailable [phone] Rajiv Mccormack NP Unavailable Unavailable Renita Quezada RN Unavailable Unavailable Alize Acosta RECORDING ENGINEER, SHAFTING WORKER Unavailable +[phone] Dayo Chaney MD Unavailable Juanita Hauser RN Unavailable Unavaila David Martinez MD Unavailable Emilia Tang MD Primary Care Provider [phone] Maurilio Farley MD Unavailable Candida Turner MD Unavailable Rebeka Trinidad MD Primary Care Provider + [phone] Dom Quiñonez MD Unavailable Rachelle Nava RECORDING ENGINEER, COASTAL TUG MATE Unavailable + [phone] Irais Naylor RECORDING ENGINEER, SHAFTING WORKER Unavailable + [phone] AhmetAngélciamando Littlejohn RECORDING ENGINEER, SHAFTING WORKER Primary Care Provider + [phone] Rebeka Trinidad MD Primary Care Provider + [phone] Lorri Leo RECORDING ENGINEER, SHAFTING WORKER Primary Care Provider [phone] Sharri Gaspar MD Unavailable Tani Biggs [facility] Primary Care Provider + [phone] Amber Aldrich RECORDING ENGINEER, SHAFTING WORKER Unavailable Reason for Visit * Reason Comments Medication Refill Encounter Details Date Type Department Care Team (Late Contact Info) Description 07/09/2020 Refill [facility] - Primary Care - [place] [address] [place] [address] Jackeline Dimas, RECORDING ENGINEER, [facility] [address] [place] [address] Medication Refill Social History Tobacco [...] 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 [...] Description 12/10/2024 2:40 PM CDT Telemedicine [facility] [address] [place] [address] 01/03/2025 11:30 AM CDT [facility] - [place] [address] [place] [address] Rachelle Nava, RECORDING ENGINEER, COASTAL TUG MATE [address] [place] [address] 02/11/2025 2:00 PM GRAINING MACHINE OPERATOR Telemedicine [facility] [address] [place] [address] 02/16/2025 2:00 PM GRAINING MACHINE OPERATOR Telemedicine [facility] [address] [place] [address] Alize Acosta, RECORDING ENGINEER, SHAFTING WORKER [address] [place] [address] 02/21/2025 3:45 PM GRAINING MACHINE OPERATOR [facility] [place] [address] [place] [address] David Salmon MD [address] [address] 03/04/2025 3:10 PM GRAINING MACHINE OPERATOR Lab [facility] - [place] [address] [place] [address] 03/04/2025 3:30 PM GRAINING MACHINE OPERATOR Office Visit [facility] - Primary Care - [place] [address] [place] [address] Tani Biggs PAC [address] [place] [address] 03/17/2025 1:30 PM GRAINING MACHINE OPERATOR [facility] [address] [place] [address] Melony Asif August, PAC [address] [place] [address] Discharge Disposition: Discharged to home or Selfcare 03/25/2025 1:20 PM GRAINING MACHINE OPERATOR [facility] [address] [place] [address] AsifMelony August, PAC [address] [place] [address] Discharge Disposition: Discharged to home or Selfcare 04/25/2025 2:00 PM GRAINING MACHINE OPERATOR [facility] - [place] [address] [place] [address] Laisha Griffin, DO [address] [address] 07/18/2025 1:00 PM CDT Office Visit [facility] - Pulmonology & Sleep Medicine [facility] [address] [place] [address] Dom Quiñonez MD [address] [place] [address] documented as of this encounter Visit Diagnoses Not on filedocumented in this encounter Additional Health Concerns Infection Onset Date Last Indicated Resolved Time COVID - 19 01/08/2021 01/08/2021 01/28/2021 12:1 6 AM GRAINING MACHINE OPERATOR COVID - 19 03/12/2021 03/12/2021 04/01/2021 12:1 6 AM GRAINING MACHINE OPERATOR COVID - 19 12/15/2021 12/15/2021 12/15/2021 7:26 PM CDT COVID - 19 Confirmed 12/15/2021 12/15/2021 022 12:16 AM CDT COVID - 04/18/2024 04/18/2024 04/18/2024 10:4 7 PM GRAINING MACHINE OPERATOR Respiratory Rule-Out 05/06/2024 05/06/2024 025 9:20 AM GRAINING MACHINE OPERATOR COVID - 19 05/06/2024 05/06/2024 05/06/2024 9:19 AM GRAINING MACHINE OPERATOR Assessment Noted Time PHQ-9 Depression Total Score: 0 09/01/19 20 11:58 AM CDT documented as of this encounter Care Teams Ski Topper Relationship Specialty Start Date End Date Jackeline Dimas APRN, SHAFTING WORKER [address] [place] [address] PCP - General Advanced Practice Nurse 07/31/17 Emilia Tang MD [address] [place] [address] PCP - General Family Medicine 06/07/22 03/25/23 Rebeka Trinidad MD [address] [place] [address] PCP - General Family Medicine 03/26/23 03/29/24 Lorri Leo APRN, SHAFTING WORKER [address] [place] [address] PCP - General Certified Nurse Practitioner 03/30/24 04/20/24 Rebeka Trinidad MD [address] [place] [address] PCP - General Family Medicine 04/21/24 04/21/24 Lorri Leo APRN, SHAFTING WORKER [address] [place] [address] PCP - General Certified Nurse Practitioner 04/22/24 05/30/24 Tani Biggs, ESTRELLITA [address] [place] [address] PCP - General Physician Precision Inspector 05/31/24 Fiona Martinez, [place] Wireworker Supervisor 03/01/21 08/23/21 Phil Jacobo MD [address] [place] [address] Consulting Physician Neurology 03/07/21 Rajiv Mccormack, KELI [address] [place] [address] Nurse Practitioner Gastroenterology 03/07/21 Renita Quezada RN [place] Wireworker Supervisor 05/09/21 08/23/21 Alize Acosta, RECORDING ENGINEER, SHAFTING WORKER [address] [place] [address] Virtual Advanced Care (VAC) TELEVISION AUDIO ENGINEER Advanced Practice Nurse 08/30/21 Dayo Chaney MD [address] [place] [address] Residential Sales Consultant Cardiovascular Disease - Cardiology 09/20/21 02/12/24 Juanita Mercado, SEBA[place] Registered Nurse Cardiology 12/24/21 02/12/24 David Salmon MD [address] [address] Consulting Physician Endocrinology 01/15/22 Maurilio Farley MD #[address] [address] Consulting Physician Colon and Rectal Surgery 09/20/22 Physician, Candida Davis MD [address] [place] [address] Family Medicine 01/25/22 03/18/23 Dom Quiñonez MD [address] [place] [address] Consulting Physician Pulmonary Disease 11/19/21 Rachelle Nava, RECORDING ENGINEER, COASTAL TUG MATE [address] [place] [address] Nurse Practitioner Advanced Practice Nurse 07/19/22 Irais Naylor, RECORDING ENGINEER, SHAFTING WORKER #[address] [address] Nurse Practitioner Cardiology 06/27/23 07/29/24 Sharri Gaspar MD [address] [address] Consulting Physician Cardiology 04/26/24 Amber Aldrich APRN, SHAFTING WORKER [address] [place] [address] Nurse Practitioner Cardiology 07/30/24 documented as of this encounter
--- OUTSIDE RECORDS SUMMARY | 2024-12-03 01:26 | XMS_ITS | Encounter Summary ---
Author Organization [facility] Address [address] [place] [address] Phone Care Team Providers Care Pole Shaver Name Role Phone Phil Jacobo MD Unavailable [phone] Rajiv Mccormack NP Unavailable Unavailable Alize Acosta RINKMAN, DATA ENTRY MACHINE OPERATOR Unavailable David Salmon MD Unavailable Maurilio Farley MD Unavailable Rebeka Trinidad MD Primary Care Provider + [phone] Dom Quiñonez MD Unavailable Rachelle Nava RINKMAN, MANAGEMENT AND BUDGET ANALYST Unavailable + [phone] Irais Naylor RINKMAN, DATA ENTRY MACHINE OPERATOR Unavailable + [phone] Lorri Leo APRN, DATA ENTRY MACHINE OPERATOR Primary Care Provider + [phone] Rebeka Trinidad MD Primary Care Provider + [phone] Lorri Leo APRN, DATA ENTRY MACHINE OPERATOR Primary Care Provider + [phone] Sharri Gaspar MD Unavailable Tani Biggs [facility] Primary Care Provider Amber Aldrichsweetie MOJICAN, DATA ENTRY MACHINE OPERATOR Unavailable Encounter Details Date Type Department Care Team (Late st Contact Info) Description 02/25/2024 Telephone [facility] [address] [place] [address] Rebeka Trinidad MD [address] [place] [address] Social History Tobacco Use Types Packs/Day Years Used Date Smoking Tobacco: Every Day Cigarettes 1 37.1 Started: 1984; Last attempted to quit: 04/12/2021 Smokeless Tobacco: Never Alcohol Use Standard Drinks/Week Comments Not Currently 0 (1 standard drink = 0.6 oz pur e alcohol) Last drink in 2020 [facility] Utilities Answer Date Recorded In the past 12 months has [employer], gas, oil, or water company threatened to [...] Never 09/08/2023 How often do you attend [facility] or [facility] services? 1 to 4 times per year 09/08/2023 Do you belong to any clubs o r organizations such as yazdanism groups, unions, fraternal or athletic groups, or [...] Total Score - Questions 1-9 17 01/08 [facility] - Occupational Stress Questionnaire Answer Date [...] place to sleep or slept in a fci (including now)? No 03/24/2023 Housing Stability Vital [...] in the past 12 m [facility], were you homeless or living in a fci (including now)? 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 Not on file Not on file documented as of this encounter Plan of Treatment Upcoming Encounters Date Type Department Care Team (Late st Contact Info) Description 12/10/2024 2:40 PM CDT Telemedicine [facility] [address] [place] [address] 01/03/2025 11:30 AM CDT [facility] [place] #[address] [place] [address] Rachelle Nava APRN, MANAGEMENT AND BUDGET ANALYST #2 [place] [address] 02/11/2025 2:00 PM WIRE BRUSH MAKER Telemedicine [facility] [address] [place] [address] 02/16/2025 2:00 PM WIRE BRUSH MAKER Telemedicine [facility] [address] [place] [address] Alize Acosta, RINKMAN, DATA ENTRY MACHINE OPERATOR [address] [place] [address] 02/21/2025 3:45 PM WIRE BRUSH MAKER Office Visit [facility] Medical Group - Endocrinology - [place] [address] [place] [address] David Salmon MD #[address] [address] 03/04/2025 3:10 PM WIRE BRUSH MAKER [facility] [place] [address] [place] [address] 03/04/2025 3:30 PM WIRE BRUSH MAKER [facility] [place] [address] [place] [address] Tani Biggs PAC [address] [place] [address] 03/17/2025 1:30 PM WIRE BRUSH MAKER [facility] [address] [place] [address] Melony Asif, PAC [address] [place] [address] Discharge Disposition: Discharged to home or Selfcare 03/25/2025 1:20 PM WIRE BRUSH MAKER Office Visit [facility] Oncology Services [address] [place] [address] Melony Asif, PAC [address] [place] [address] Discharge Disposition: Discharged to home or Selfcare 04/25/2025 2:00 PM WIRE BRUSH MAKER [facility] [place] #[address] [place] [address] Laisha Griffin DO [address] [address] 07/18/2025 1:00 PM CDT [facility] - [place] [address] [place] [address] Dmo Quiñonez MD #2 [place] [address] documented as of this encounter Goals Goal [...] 09/22/2023 3:12 PM CDT) Yes Hilda Tinajero, [facility] Note: Goal/Objective: Decrease symptoms of depression and anxiety. Anticipated Time Frame for Goal Completion: 3 months Goal Reviewed with: patient Readiness to change: Thinking about making a change Department associated with goal: [facility] Steps to achieve [...] diet Depression Depression Improving(0 03/15/2022 2:27 PM WIRE BRUSH MAKER) No Breanne Saldana, ACTION FINISHER Note: Goal/Objective: Decrease symptoms of depression associated [...] 19 04/18/2024 04/18/2024 04/18/2024 10:4 7 PM WIRE BRUSH MAKER Respiratory Rule-Out 05/06/2024 05/06/2024 025 9:20 AM WIRE BRUSH MAKER COVID - 19 05/06/2024 05/06/2024 05/06/2024 9:19 AM WIRE BRUSH MAKER Assessment Noted Time PHQ-9 Depression Total Score: 17 024 9:00 AM WIRE BRUSH MAKER documented as of this encounter Care Teams Pole Shaver Relationship Specialty Start Date End Date Rebeka Trinidad MD [address] [place] [address] PCP - General Family Medicine 03/26/23 03/29/24 Lorri Leo APRN, DATA ENTRY MACHINE OPERATOR [address] [place] [address] PCP - General Certified Nurse Practitioner 03/30/24 04/20/24 Rebeka Trinidad MD [address] [place] [address] PCP - General Family Medicine 04/21/24 04/21/24 Lorri Leo, RINKMAN, DATA ENTRY MACHINE OPERATOR [address] [place], [place] [phone] PCP - General Certified Nurse Practitioner 04/22/24 05/30/24 Tani Biggs, PAC [address] [place] [address] PCP - General Physician Economic Geographer 05/31/24 Phil Jacobo MD #2 [place] [address] Consulting Physician Neurology 03/07/21 Rajiv Mccormack, BAR MACHINE OPERATOR MULTIPLE SPINDLE #[address] [place] [address] Nurse Practitioner Gastroenterology 03/07/21 Alize Acosta, RUSSELL, DATA ENTRY MACHINE OPERATOR [facility] [place] [address] Virtual Advanced Care (VAC) SULFONATOR OPERATOR Advanced Practice Nurse 08/30/21 David Salmon MD #[address] [address] Consulting Physician Endocrinology 01/15/22 Maurilio Farley MD #[address] [address] Consulting Physician Colon and Rectal Surgery 09/20/22 Dom Quiñonez MD #[address] [facility] [place] [address] Consulting Physician Pulmonary Disease 11/19/21 Rachelle Nava, RINKMAN, MANAGEMENT AND BUDGET ANALYST #[address] [facility] [place] [address] Nurse Practitioner Advanced Practice Nurse 07/19/22 Irais Naylor, RINKMAN, DATA ENTRY MACHINE OPERATOR #2 [facility] [address] [place] [address] Nurse Practitioner Cardiology 06/27/23 07/29/24 Sharri Gaspar MD 2 [facility] [place] [facility] [address] [place] [address] Consulting Physician Cardiology 04/26/24 Amber Aldrich, RINKMAN, DATA ENTRY MACHINE OPERATOR #[address] [place] [address] Nurse Practitioner Cardiology 07/30/24 documented as of this encounter
--- OUTSIDE RECORDS SUMMARY | 2024-12-03 01:26 | XMS_ITS | Encounter Summary ---
Author Organization [facility] Address [address] [place] [address] Phone Care Team Providers Care Manager Package Name Role Phone Jackeline Dimas DIRECTOR OF QUALITY CONTROL, BENZENE WASHER Primary Care Provider Fiona Martinez FLIGHT SERVICE SPECIALIST Unavailable Unavailab Phil Ellis MD Unavailable [phone] Rajiv Mccormack NP Unavailable Unavailable Renita Quezada RN Unavailable Unavailable Alize Acosta DIRECTOR OF QUALITY CONTROL, BENZENE WASHER Unavailable +[phone] Dayo Chaney MD Unavailable Juanita Hauser RN Unavailable Unavaila David Martinez MD Unavailable Emilia Tang MD Primary Care Provider [phone] Maurilio Farley MD Unavailable Candida Turner MD Unavailable Rebeka Trinidad MD Primary Care Provider + [phone] Dom Quiñonez MD Unavailable Rachelle Nava DIRECTOR OF QUALITY CONTROL, MANAGER NICU Unavailable + [phone] Irais Naylor DIRECTOR OF QUALITY CONTROL, BENZENE WASHER Unavailable + [phone] Lorri Leo Annetta DIRECTOR OF QUALITY CONTROL, BENZENE WASHER Primary Care Provider + [phone] Rebeka Trinidad MD Primary Care Provider + [phone] AhmetAngélicamando Littlejohn DIRECTOR OF QUALITY CONTROL, BENZENE WASHER Primary Care Provider [phone] Sharri Gaspar MD Unavailable Tnai Biggs Primary Care Provider + [phone] Amber Aldrich DIRECTOR OF QUALITY CONTROL, BENZENE WASHER Unavailable Reason for Visit * Reason Comments Medication Refill Encounter Details Date Type Department Care Team (Late Contact Info) Description 02/08/2020 Refill [facility] - Primary Care - [place] [address] [place] [address] Jackeline Dimas, DIRECTOR OF QUALITY CONTROL, [facility] [address] [place] [address] Medication Refill Social History Tobacco [...] 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 No / Unsure 02/08/2020 7:30 AM CLINICAL UNIT COORDINATOR documented as of this encounter Plan of Treatment Upcoming Encounters Date Type Department Care Team (Late Contact Info) Description 12/10/2024 2:40 PM CDT Telemedicine [facility] [address] [place] [address] 01/03/2025 11:30 AM CDT [facility] [place] [address] [place] [address] Rachelle Nava APRN, MANAGER NICU #[address] [place] [address] 02/11/2025 2:00 PM CLINICAL UNIT COORDINATOR Telemedicine [facility] [address] [place] [address] 02/16/2025 2:00 PM CLINICAL UNIT COORDINATOR Telemedicine [facility] [address] [place] [address] Alize Acosta, RUSSELL, BENZENE WASHER [address] [place] [address] 02/21/2025 3:45 PM CLINICAL UNIT COORDINATOR Office Visit [facility] - Endocrinology - [place] [address] [place] [address] David Salmon MD #[address] [address] 03/04/2025 3:10 PM CLINICAL UNIT COORDINATOR Lab [facility] Primary Care - [place] [address] [place] [address] 03/04/2025 3:30 PM CLINICAL UNIT COORDINATOR Office Visit [facility] Primary Care - [place] [address] [place] [address] Tani Biggs PAC [address] [place] [address] 03/17/2025 1:30 PM CLINICAL UNIT COORDINATOR [facility] [address] [place] [address] Melony Asif August, PAC [address] [place] [address] Discharge Disposition: Discharged to home or Selfcare 03/25/2025 1:20 PM CLINICAL UNIT COORDINATOR [facility] [address] [place] [address] Melony Asif August, PAC [address] [place] [address] Discharge Disposition: Discharged to home or Selfcare 04/25/2025 2:00 PM CLINICAL UNIT COORDINATOR Office Visit [facility] Medical [facility] - Cardiology - [place] [address] [place] [address] Laisha Griffin, DO [address] [address] 07/18/2025 1:00 PM CDT Office Visit [facility] - Pulmonology & Sleep Medicine [facility] #[address] [place] [address] Dom Quiñonez MD #[address] [place] [address] documented as of this encounter Visit Diagnoses Not on filedocumented in this encounter Additional Health Concerns Infection Onset Date Last Indicated Resolved Time COVID - 19 01/08/2021 01/08/2021 01/28/2021 12:1 6 AM CLINICAL UNIT COORDINATOR COVID - 19 03/12/2021 03/12/2021 04/01/2021 12:1 6 AM CLINICAL UNIT COORDINATOR COVID - 19 12/15/2021 12/15/2021 12/15/2021 7:26 PM CDT COVID - 19 Confirmed 12/15/2021 12/15/2021 022 12:16 AM CDT COVID - 19 04/18/2024 04/18/2024 04/18/2024 10:4 7 PM CLINICAL UNIT COORDINATOR Respiratory Rule-Out 05/06/2024 05/06/2024 025 9:20 AM CLINICAL UNIT COORDINATOR COVID - 19 05/06/2024 05/06/2024 05/06/2024 9:19 AM CLINICAL UNIT COORDINATOR Assessment Noted Time PHQ-9 Depression Total Score: 0 09/01/19 11:58 AM CDT documented as of this encounter Care Teams Manager Package Relationship Specialty Start Date End Date Jackeline Dimas, DIRECTOR OF QUALITY CONTROL, BENZENE WASHER [address] [place] [address] PCP - General Advanced Practice Nurse 07/31/17 Emilia Tang MD [address] [place] [address] PCP - General Family Medicine 06/07/22 03/25/23 Rebeka Trinidad MD [address] [place] [address] PCP - General Family Medicine 03/26/23 03/29/24 Lorri Leo APRN, BENZENE WASHER [address] [place] [address] PCP - General Certified Nurse Practitioner 03/30/24 04/20/24 Rebeka Trinidad MD [address] [place] [address] PCP - General Family Medicine 04/21/24 04/21/24 Lorri Leo APRN, BENZENE WASHER [address] [place] [address] PCP - General Certified Nurse Practitioner 04/22/24 05/30/24 Tani Biggs, PAC [address] [place] [address] PCP - General Physician Lead Supply Worker 05/31/24 Fiona Martinez, MAR[place] Mri Supervisor 03/01/21 08/23/21 Phil Jacobo MD #2 [place] [address] Consulting Physician Neurology 03/07/21 Rajiv Mccormack, KELI [address] [place] [address] Nurse Practitioner Gastroenterology 03/07/21 Renita Quezada, [place] Mri Supervisor 05/09/21 08/23/21 Alize Acosta, DIRECTOR OF QUALITY CONTROL, BENZENE WASHER [address] [place] [address] Virtual Advanced Care (VAC) RELAY WORKER Advanced Practice Nurse 08/30/21 Dayo Chaney MD [facility]6 [place] [address] Rib Knitter Cardiovascular Disease - Cardiology 09/20/21 02/12/24 Juanita Mercado RN [place] Registered Nurse Cardiology 12/24/21 02/12/24 David Salmon MD #[address] [address] Consulting Physician Endocrinology 01/15/22 Maurilio Farley MD #[address] [address] Consulting Physician Colon and Rectal Surgery 09/20/22 Physician, Candida Davis MD [address] [place] [address] Family Medicine 01/25/22 03/18/23 Dom Quiñonez MD #2 [place] [address] Consulting Physician Pulmonary Disease 11/19/21 Rachelle Nava APRN, MANAGER NICU #2 [place] [address] Nurse Practitioner Advanced Practice Nurse 07/19/22 Irais Naylor DIRECTOR OF QUALITY CONTROL, BENZENE WASHER #[address] [address] Nurse Practitioner Cardiology 06/27/23 07/29/24 Sharri Gaspar MD [address] [address] Consulting Physician Cardiology 04/26/24 Amber Aldrich APRN, BENZENE WASHER #[address] [place] [address] Nurse Practitioner Cardiology 07/30/24 documented as of this encounter
--- OUTSIDE RECORDS SUMMARY | 2024-12-03 01:26 | XMS_ITS | Encounter Summary ---
Author Organization [facility] Address [address] [place] [address] Phone Care Team Providers Care Movie Actor Name Role Phone Phil Jacobo MD Unavailable [phone] Rajiv Mccormack NP Unavailable Unavailable Alize Acosta ADJUNCT PSYCHOLOGY PROFESSOR, SUPERVISOR QUALITY CONTROL Unavailable [phone] Dayo Chaney MD Unavailable Juanita Hauser RN Unavailable Unavaila David Martinez MD Unavailable Emilia Tang MD Primary Care Provider [phone] Maurilio Farley MD Unavailable PhysicianCandida MD Unavailable Rebeka Trinidad MD Primary Care Provider + [phone] Dom Quiñonez MD Unavailable Rachelle Nava ADJUNCT PSYCHOLOGY PROFESSOR, RESOLUTE PROFESSIONAL Unavailable + [phone] Irais Naylor ADJUNCT PSYCHOLOGY PROFESSOR, SUPERVISOR QUALITY CONTROL Unavailable + [phone] Lorri Leo ADJUNCT PSYCHOLOGY PROFESSOR, SUPERVISOR QUALITY CONTROL Primary Care Provider + [phone] Rebeka Trinidad MD Primary Care Provider + [phone] Lorri Leo ADJUNCT PSYCHOLOGY PROFESSOR, SUPERVISOR QUALITY CONTROL Primary Care Provider + [phone] Sharri Gaspar MD Unavailable Tani Biggs Primary Care Provider + [phone] Valdemar Amber Louise ADJUNCT PSYCHOLOGY PROFESSOR, SUPERVISOR QUALITY CONTROL Unavailable Reason for Visit * Reason Comments Medication Refill Encounter Details Date Type Department Care Team (Late st Contact Info) Description 10/21/2022 Refill [facility] - Primary Care - [place] [address] [place] [address] Jackeline Dimas, ADJUNCT PSYCHOLOGY PROFESSOR, [facility] [address] [place] [address] Medication Refill Social History Tobacco [...] 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 Not [...] CDT Telemedicine [facility] [address] [place] [address] 01/03/2025 11:30 AM CDT Office Visit [facility] - Neurology - [place] [address] [place] [address] Rachelle Nava APRN, RESOLUTE PROFESSIONAL [address] [place] [address] 02/11/2025 2:00 PM SPIRITS MODEL Telemedicine [facility] [address] [place] [address] 02/16/2025 2:00 PM SPIRITS MODEL Telemedicine [facility] [address] [place] [address] Alize Acosta, ADJUNCT PSYCHOLOGY PROFESSOR, SUPERVISOR QUALITY CONTROL [address] [place] [address] 02/21/2025 3:45 PM SPIRITS MODEL Office Visit [facility] Medical [facility] - Endocrinology - [place] [address] [place] [address] David Salmon MD #[address] [address] 03/04/2025 3:10 PM SPIRITS MODEL Lab [facility] - [place] [address] [place] [address] 03/04/2025 3:30 PM SPIRITS MODEL Office Visit [facility] - [place] [address] Tani Biggs, PAC [address] [place] [address] 03/17/2025 1:30 [address] SPIRITS MODEL Lab [facility] Oncology Services [address] [place] [address] AsifMelony kumari Stacey, [facility] [address] [place] [address] Discharge Disposition: Discharged to home or Selfcare 03/25/2025 1:20 PM SPIRITS MODEL Office Visit [facility] Oncology Services [address] [place] [address] Melony Asif Stacey, [facility] [address] [place] [address] Discharge Disposition: Discharged to home or Selfcare 04/25/2025 2:00 PM SPIRITS MODEL Office Visit [facility] - Cardiology - [place] [address] [place] [address] Laisha Griffin, DO [address] [address] 07/18/2025 1:00 PM CDT Office Visit [facility] - Pulmonology & Sleep Medicine [facility] #[address] [place] [address] Dom Quiñonez MD #[address] [place] [address] documented as of this encounter [...] diet Depression Depression Improving(0 03/15/2022 2:27 PM SPIRITS MODEL) No Breanne Saldana LCSW Note: Goal/Objective: Decrease [...] 19 04/18/2024 04/18/2024 04/18/2024 10:4 7 PM SPIRITS MODEL Respiratory Rule-Out 05/06/2024 05/06/2024 025 9:20 AM SPIRITS MODEL COVID - 05/06/2024 05/06/2024 05/06/2024 9:19 AM SPIRITS MODEL Assessment Noted Time PHQ-9 Depression Total Score: 24 022 3:31 PM SPIRITS MODEL documented as of this encounter Care Teams Movie Actor Relationship Specialty Start Date End Date Emilia Tang MD [address] [place] [address] PCP - General Family Medicine 06/07/22 03/25/23 Rebeka Trinidad MD [address] [place] [address] PCP - General Family Medicine 03/26/23 03/29/24 Lorri Leo, ADJUNCT PSYCHOLOGY PROFESSOR, SUPERVISOR QUALITY CONTROL [address] [place] [address] PCP - General Certified Nurse Practitioner 03/30/24 04/20/24 Rebeka Trinidad MD [address] [place] [address] PCP - General Family Medicine 04/21/24 04/21/24 Lorri Leo, ADJUNCT PSYCHOLOGY PROFESSOR, SUPERVISOR QUALITY CONTROL [address] [place], [place] [address] PCP - General Certified Nurse Practitioner 04/22/24 05/30/24 Tani Biggs, PAC [address] [place] [address] PCP - General Physician Surveyor Helper 05/31/24 Phil Jacobo MD #[address] [place] [address] Consulting Physician Neurology 03/07/21 Rajiv Mccormack, KELI [address] [place] [address] Nurse Practitioner Gastroenterology 03/07/21 Alize Acosta, ADJUNCT PSYCHOLOGY PROFESSOR, SUPERVISOR QUALITY CONTROL [address] [place] [address] Virtual Advanced Care (VAC) GLASS WASHER Advanced Practice Nurse 08/30/21 Dayo Chaney MD [address] [place] [address] Manager Leasing Cardiovascular Disease - Cardiology 09/20/21 02/12/24 Juanita Mercado RN [place] Registered Nurse Cardiology 12/24/21 02/12/24 David Salmon MD #[address] [phone] Consulting Physician Endocrinology 01/15/22 Maurilio Farley MD #[address] [address] Consulting Physician Colon and Rectal Surgery 09/20/22 PhysicianCandida MD [address] [place] [phone] Family Medicine 01/25/22 03/18/23 Dom Quiñonez MD #[address] [place] [address] Consulting Physician Pulmonary Disease 11/19/21 Rachelle Nava APRN, RESOLUTE PROFESSIONAL #[address] [place] [address] Nurse Practitioner Advanced Practice Nurse 07/19/22 Irais Naylor APRN, SUPERVISOR QUALITY CONTROL #[address] [address] Nurse Practitioner Cardiology 06/27/23 07/29/24 Sharri Gaspar MD [address] [address] Consulting Physician Cardiology 04/26/24 Amber Aldrich APRN, SUPERVISOR QUALITY CONTROL #[address] [place] [address] Nurse Practitioner Cardiology 07/30/24 documented as of this encounter
--- OUTSIDE RECORDS SUMMARY | 2024-12-03 01:26 | XMS_ITS | Encounter Summary ---
Author Organization [facility] Address [address] [place] [address] Phone Care Team Providers Care Travel Clerk Name Role Phone Phil Jacobo MD Unavailable [phone] Rajiv Mccormack NP Unavailable Unavailable Alize Acosta APRN, QUALIFICATIONS EXAMINER Unavailable [phone] Dayo Chaney MD Unavailable Juanita Hauser RN Unavailable UnavailDavid Alexandre MD Unavailable Maurilio Farley MD Unavailable Rebeka Trinidad MD Primary Care Provider + [phone] Dom Quiñonez MD Unavailable Rachelle Nava CAR CARDER, MASTER CERTIFIED RV TECHNICIAN Unavailable + [phone] Irais Naylor CAR CARDER, QUALIFICATIONS EXAMINER Unavailable + [phone] Lorri Leo CAR CARDER, QUALIFICATIONS EXAMINER Primary Care Provider + [phone] Rebeka Trinidad MD Primary Care Provider + [phone] Lorri Leo CAR CARDER, QUALIFICATIONS EXAMINER Primary Care Provider + [phone] Sharri Gaspar MD Unavailable Tani Biggs PAC Primary Care Provider [phone] Amber Aldrich APRN, QUALIFICATIONS EXAMINER Unavailable Reason for Visit * Reason Comments Medication Refill Encounter Details Date Type Department Care Team (Late st Contact Info) Description 10/31/2023 Refill [facility] - Neurology [facility] [address] [place] [address] Rachelle Nava, RUSSELL, MASTER CERTIFIED RV TECHNICIAN [address] [place] [address] Medication Refill Social History Tobacco Use Types Packs/Day Years Used Date Smoking Tobacco: Former Cigarettes 1 37.1 1 985 - 04/12/2021 Smokeless Tobacco: Never Alcohol Use Standard Drinks/Week Comments Not Currently 0 (1 standard drink = 0.6 oz pur e alcohol) last drank 2020 [facility] Utilities Answer Date Recorded In the past 12 months has [employer] electric, gas, oil, or water company threatened [...] Never 09/08/2023 How often do you attend [facility] services? 1 to 4 times [...] Total Score - Questions 1-9 18 08/3 [facility] alexander campusal [facility] - Occupational Stress Questionnaire Answer Date [...] any time in the past 12 m ont, were you homeless or living in a longterm (including now)? 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 file Not on file Not on file documented as of this encounter Plan of Treatment Upcoming Encounters Date Type Department Care Team (Late st Contact Info) Description 12/10/2024 2:40 PM CDT Telemedicine [facility] [address] [place] [address] 01/03/2025 11:30 AM CDT [facility] - [place] [address] [place] [address] Rachelle Nava APRN, MASTER CERTIFIED RV TECHNICIAN [address] [place] [address] 02/11/2025 2:00 PM RETURN CHECKER Telemedicine [facility] [address] [place] [address] 02/16/2025 2:00 PM RETURN CHECKER Telemedicine [facility] [address] [place] [address] Alize Acosta, CAR CARDER, QUALIFICATIONS EXAMINER [address] [place] [address] 02/21/2025 3:45 PM RETURN CHECKER [facility] - Endocrinology - [place] [address] [place] [address] David Salmon MD [address] [address] 03/04/2025 3:10 PM RETURN CHECKER [facility] [place] [address] [place] [address] 03/04/2025 3:30 PM RETURN CHECKER Office Visit [facility] Primary Care - [place] [address] [place] [address] Tani Biggs, PAC [address] [place] [facility] [place] [place] [address] 03/17/2025 1:30 PM RETURN CHECKER [facility] [address] [place] [address] Melony Asif, PAC [address] [place] [address] Discharge Disposition: Discharged to home or Selfcare 03/25/2025 1:20 PM RETURN CHECKER [facility] [address] [place] [address] Melony Asif, PAC [address] [place] [address] Discharge Disposition: Discharged to home or Selfcare 04/25/2025 2:00 PM RETURN CHECKER [facility] [place] [address] [place] [address] Laisha Griffin, DO [address] [address] 07/18/2025 1:00 PM CDT Office [facility] - Pulmonology & Sleep Medicine [facility] [address] [place] [address] Dom Quiñonez MD [address] [place] [address] documented as of this encounter Goals Goal Patient Goal Type Associated Problems Recent Progress Patient-Stated? Author ACTIVITY Activity No change(08/08 2:42 PM CDT) Yes Maritza Vanegas, RN Note: Bonny will walk five days a week. Goal Reviewed with: Bonny Readiness to change: Department associated with goal: [facility] Steps to achieve goal: Walking 5 days a week I want to be able to be around people and feel less depressed. Behavioral Health Worsening(0 09/22/2023 3:12 PM CDT) Yes Hilda Tinajero [facility] Note: Goal/Objective: Decrease symptoms of depression and anxiety. Anticipated Time Frame for Goal Completion: 3 months Goal Reviewed with: patient Readiness to change: Thinking about making a change Department associated with goal: [facility] Steps to [...] diet Depression Depression Improving(0 03/15/2022 2:27 PM RETURN CHECKER) No Breanne Saldana LCSW Note: Goal/Objective: Decrease [...] 19 04/18/2024 04/18/2024 04/18/2024 10:4 7 PM RETURN CHECKER Respiratory Rule-Out 05/06/2024 05/06/2024 025 9:20 AM RETURN CHECKER COVID - 19 05/06/2024 05/06/2024 05/06/2024 9:19 AM RETURN CHECKER Assessment Noted Time PHQ-9 Depression Total Score: 18 023 9:24 AM CDT documented as of this encounter Care Teams Travel Clerk Relationship Specialty Start Date End Date Rebeka Trinidad MD [address] [place] [address] PCP - General Family Medicine 03/26/23 03/29/24 Lorri Leo, CAR CARDER, QUALIFICATIONS EXAMINER [address] [place] [address] PCP - General Certified Nurse Practitioner 03/30/24 04/20/24 Rebeka Trinidad MD [address] [place] [address] PCP - General Family Medicine 04/21/24 04/21/24 Lorri Leo APRN, QUALIFICATIONS EXAMINER [address] [place] [address] PCP - General Certified Nurse Practitioner 04/22/24 05/30/24 Tani Biggs PAC [address] [place] [address] PCP - General Physician Otr Driver 05/31/24 Phil Jacobo MD [address] [place] [address] Consulting Physician Neurology 03/07/21 Rajiv Mccormack, PAYMENT MANAGER [address] [place] [address] Nurse Practitioner Gastroenterology 03/07/21 Alize Acosta, RUSSELL, QUALIFICATIONS EXAMINER [facility] [place] [address] Virtual Advanced Care (VAC) GAS PUMPING STATION HELPER Advanced Practice Nurse 08/30/21 Dayo Chaney MD [facility] [place] [address] Sales And Service Agent Cardiovascular Disease - Cardiology 09/20/21 02/12/24 Juanita Mercado RN [place] Registered Nurse Cardiology 12/24/21 02/12/24 David Salmon MD #[address] [address] Consulting Physician Endocrinology 01/15/22 Maurilio Farley MD #[address] [facility] [facility] [address] [facility] [address] Consulting Physician Colon and Rectal Surgery 09/20/22 Dom Quiñonez MD #[address] [place] [address] Consulting Physician Pulmonary Disease 11/19/21 Rachelle Nava, CAR CARDER, MASTER CERTIFIED RV TECHNICIAN [address] [place] [address] Nurse Practitioner Advanced Practice Nurse 07/19/22 Irais Naylor, CAR CARDER, QUALIFICATIONS EXAMINER #[address] [address] Nurse Practitioner Cardiology 06/27/23 07/29/24 Sharri Gaspar MD [address] [facility] [address] [address] Consulting Physician Cardiology 04/26/24 Amber Aldrich, CAR CARDER, QUALIFICATIONS EXAMINER [address] [place] [address] Nurse Practitioner Cardiology 07/30/24 documented as of this encounter
--- OUTSIDE RECORDS SUMMARY | 2024-12-03 01:26 | XMS_ITS ---
Author Organization [facility] Address [address] [place] [address] Care Team Providers Care Analytical Research Chemist Name Role Phone Tani Biggs Primary Care Provider [phone] Active Problems Problem Noted Date Diagnosed Date History of kidney cancer 10/06/2023 Overview (10/06/2023): Images from the original note were not included. 03/27/23: [place]. Renal lesion. CT + MRI () - right kidney mass ([facility] [place]). Creatinine 1.1. Hx of post-menopausal bleeding s/p [...] + MRI () - right kidney mass ([facility] [place]). Creatinine 1.1. Hx of post-menopausal bleeding s/p [...] + MRI () - right kidney mass ([facility] [place]). Creatinine 1.1. Hx of post-menopausal bleeding s/p [...] (04/29/2022): Added automatically from request for surgery [id number] Internal hemorrhoids 04/25/2022 Gastroparesis 05/23/2021 Erosive gastritis [...]
--- OUTSIDE RECORDS SUMMARY | 2024-12-03 01:27 | XMS_ITS | Encounter Summary ---
Author Organization [facility] Address [address] [place] [address] Phone Care Team Providers Care Fountain Server Name Role Phone Jackeline Dimas MATERIAL SCHEDULER, CV/CVN CV TSC SYSTEM OPERATOR Primary Care Provider Phil Jacobo MD Unavailable [phone] Rajiv Mccormack NP Unavailable Unavailable Alize Acosta MATERIAL SCHEDULER, CV/CVN CV TSC SYSTEM OPERATOR Unavailable [phone] Dayo Chaney MD Unavailable Juanita Hauser RN Unavailable UnavailDavid Alexandre MD Unavailable Emilia Tang MD Primary Care Provider [phone] Maurilio Farley MD Unavailable Physician, Candida Davis MD Unavailable Rebeka Trinidad MD Primary Care Provider + [phone] Dom Quiñonez MD Unavailable Rachelle Nava MATERIAL SCHEDULER, ACTIVITIES OFFICER Unavailable + [phone] Irais Naylor MATERIAL SCHEDULER, CV/CVN CV TSC SYSTEM OPERATOR Unavailable + [phone] Lorri Leo MATERIAL SCHEDULER, CV/CVN CV TSC SYSTEM OPERATOR Primary Care Provider [phone] Rebeka Trinidad MD Primary Care Provider + [phone] AhmetLorri Annetta MATERIAL SCHEDULER, [facility] Primary Care Provider + [phone] Sharri Gaspar MD Unavailable Tani Biggs [facility] Primary Care Provider [phone] Amber Aldrich MATERIAL SCHEDULER, [facility] Unavailable Reason for Visit * Reason Comments Medication Refill Encounter Details Date Type Department Care Team (Late st Contact Info) Description 01/13/2022 Refill [facility] - Primary Care - [place] [address] [place] [address] Jackeline Dimas MATERIAL SCHEDULER, [facility] [address] [place] [address] Medication Refill Social History Tobacco [...] 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 Unable to assess 01/16/2022 3:15 PM DISPLAY MECHANIC documented as of this encounter Miscellaneous Notes * Telephone Encounter - Elizabeth Cabrales RN - 01/14/2022 10:14 AM CST Medication was discontinued on 11/13/21 LAY MECHANIC documented in this encounter Plan of Treatment Upcoming Encounters Date Type Department Care Team (Late st Contact Info) Description 12/10/2024 2:40 PM CDT Telemedicine [facility] [address] [place] [address] 01/03/2025 11:30 AM CDT Office Visit [facility] - Neurology - [place] [address] [place] [address] Rachelle Nava APRN, ACTIVITIES OFFICER [address] [place] [address] 02/11/2025 2:00 PM DISPLAY MECHANIC Telemedicine [facility] [address] [place] [address] 02/16/2025 2:00 PM DISPLAY MECHANIC Telemedicine [facility] [address] [place] [address] Alize Acosta, RUSSELL, CV/CVN CV TSC SYSTEM OPERATOR [address] [place] [address] 02/21/2025 3:45 PM DISPLAY MECHANIC Office Visit [facility] - Endocrinology - [place] [address] [place] [address] David Salmon MD #[address] [address] 03/04/2025 3:10 PM DISPLAY MECHANIC Lab [facility] [place] [address] 03/04/2025 3:30 PM DISPLAY MECHANIC Office Visit [facility] - [place] [address] Tani Biggs, [facility] [address] [place] [address] 03/17/2025 1:30 PM DISPLAY MECHANIC Lab [facility] Oncology Services [address] [place] [address] AsifMelony kumari Stacey, [facility] [address] [place] [address] Discharge Disposition: Discharged to home or Selfcare 03/25/2025 1:20 PM DISPLAY MECHANIC Office Visit [facility] Oncology Services [address] [place] [address] KailuaMelony Stacey, [facility] [address] [place] [address] Discharge Disposition: Discharged to home or Selfcare 04/25/2025 2:00 PM DISPLAY MECHANIC Office Visit [facility] - Cardiology - [place] [address] [place] [address] Laisha Griffin, DO [address] [address] 07/18/2025 1:00 PM CDT Office Visit [facility] - Pulmonology & Sleep Medicine [facility] #[address] [place] [address] Dom Quiñonez MD [address] [place] [address] documented as of this encounter [...] as recommended. Depression Depression Improving( 2:27 PM DISPLAY MECHANIC) No Breanne Saldana, CLINICAL STATISTICS MANAGER Note: Goal/Objective: Decrease symptoms of depression [...] 19 04/18/2024 04/18/2024 04/18/2024 10:4 7 PM DISPLAY MECHANIC Respiratory Rule-Out 05/06/2024 05/06/2024 025 9:20 AM DISPLAY MECHANIC COVID - 19 05/06/2024 05/06/2024 05/06/2024 9:19 AM DISPLAY MECHANIC Assessment Noted Time PHQ-9 Depression Total Score: 0 09/01/19 11:58 AM CDT documented as of this encounter Care Teams Fountain Server Relationship Specialty Start Date End Date Jackeline Dimas APRN, CV/CVN CV TSC SYSTEM OPERATOR [address] [place] [address] PCP - General Advanced Practice Nurse 07/31/17 Emilia Tang MD [address] [place] [address] PCP - General Family Medicine 06/07/22 03/25/23 Rebeka Trinidad MD [address] [place] [address] PCP - General Family Medicine 03/26/23 03/29/24 Lorri Leo APRN, CV/CVN CV TSC SYSTEM OPERATOR [address] [place] [address] PCP - General Certified Nurse Practitioner 03/30/24 04/20/24 Rebeka Trinidad MD [address] [place] [address] PCP - General Family Medicine 04/21/24 04/21/24 Lorri Leo APRN, CV/CVN CV TSC SYSTEM OPERATOR [address] [place] [address] PCP - General Certified Nurse Practitioner 04/22/24 05/30/24 Tani Biggs, [facility] [address] [place] [address] PCP - General Physician Cabin Worker 05/31/24 Phil Jacobo MD [address] [place] [address] Consulting Physician Neurology 03/07/21 Rajiv Mccormack, KELI [address] [place] [address] Nurse Practitioner Gastroenterology 03/07/21 Alize Acosta APRN, CV/CVN CV TSC SYSTEM OPERATOR [address] [place] [address] Virtual Advanced Care (VAC) SEDIMENT REMEDIATION CONSULTANT Advanced Practice Nurse 08/30/21 Dayo Chaney MD [address] [place] [address] Custodian Supervisor Cardiovascular Disease - Cardiology 09/20/21 02/12/24 Juanita Mercado RN [place] Registered Nurse Cardiology 12/24/21 02/12/24 David Salmon MD #[address] [phone] Consulting Physician Endocrinology 01/15/22 Maurilio Farley MD #[address] [address] Consulting Physician Colon and Rectal Surgery 09/20/22 PhysicianCandida MD [address] [place], [place] [address] Family Medicine 01/25/22 03/18/23 Dom Quiñonez MD #[address] [place] [address] Consulting Physician Pulmonary Disease 11/19/21 Rachelle Nava, MATERIAL SCHEDULER, ACTIVITIES OFFICER [address] [place] [address] Nurse Practitioner Advanced Practice Nurse 07/19/22 Irais Naylor, MATERIAL SCHEDULER, CV/CVN CV TSC SYSTEM OPERATOR [address]2 [facility] [place] [facility] [address] [place] [address] Nurse Practitioner Cardiology 06/27/23 07/29/24 Sharri Gaspar MD 2 [facility] [address] [address] Consulting Physician Cardiology 04/26/24 Amber Aldrich, MATERIAL SCHEDULER, CV/CVN CV TSC SYSTEM OPERATOR [address] [place] [address] Nurse Practitioner Cardiology 07/30/24 documented as of this encounter
--- OUTSIDE RECORDS SUMMARY | 2024-12-03 01:27 | XMS_ITS | Clinical Summary ---
Author Organization [facility] Address [address] [place] [address] Phone Care Team Providers Care Accounts Administrator Name Role Phone Phil Jacobo MD Unavailable Rajiv Mccormack HOME ECONOMICS EXTENSION WORKER Unavailable Unavailable Alize Acosta APRN, FRONT MAKER Unavailable [phone] David Salmon MD Unavailable Maurilio Farley MD Unavailable Dom Quiñonez MD Unavailable Rachelle Nava CAGE/VAULT SUPERVISOR, BUILDING CONSTRUCTION INSPECTOR Unavailable + [phone] Sharri Gaspar MD Unavailable Tani Biggs PAC Primary Care Provider Amber Aldrich CAGE/VAULT SUPERVISOR, FRONT MAKER Unavailable Allergies Active Allergy Reactions Criticality Noted [...] by mouth daily. Active TRUEplus 5-Bevel Pen [place] 32G X 4 MM Misc USE DAILY [...] hyperglycemia, without long-term current use of insulin 1 Lancet by Does not apply route in the morning and at bedtime. Test blood glucose 2x daily, E11.65, insulin dependent 200 Each 3 01/19/20 24 Active Glucose Blood (Accu-Chek Guide) StripIndications: Type 2 diabetes mellitus with hyperglycemia, without long-term current use of insulin Test blood glucose 2x daily. E11.65, insulin dependent 200 Strip 3 01/19/20 24 Active cetirizine-pseudo ephedrine (ZYRTEC-D) 5-120 MG TABLET SR 12 HR Take 1 Tablet by mouth 2 times daily. Active naloxone HCl (Narcan) 4 MG/0.1ML Liquid 1 [place] by Nasal route as needed for Opioid [...] hyperglycemia, without long-term current use of insulin 1 Kit by Does not apply route [...] doses. 1.2 mL 3 07/08/19 25 Active ondansetron (ZOFRAN-ODT) 4 MG TABLET [...] ons:MDD (major depressive disorder), recurrent episode, moderate TAKE 1 CAPSULE BY MOUTH DAILY 90 [...] mouth 3 times daily. 10/08/19 25 Active montelukast (SINGULAIR) 10 MG Tablet [...] Cough. 75 mL 1 11/12/19 25 Active glimepiride (AMARYL) 2 MG Tablet Take 2 Tablets by mouth every morning. 180 Tablet 1 11/19/19 25 Active furosemide (LASIX) 20 MG Tablet Take 1 Tablet by mouth daily. 30 Tablet 11/23/19 25 Active glimepiride (AMARYL) 2 MG Tablet Take 1 Tablet by mouth every morning. 90 Tablet 1 08/18/19 25 025 Discontin ued(Reord er) furosemide (LASIX) 20 MG Tablet Take 1 Tablet by mouth daily. 30 Tablet 10/27/19 25 025 Discontin ued(Reord er) Active Problems [...] + MRI () - right kidney mass ([facility] [place]). Creatinine 1.1. Hx of post-menopausal bleeding s/p [...] + MRI () - right kidney mass ([facility] [place]). Creatinine 1.1. Hx of post-menopausal bleeding s/p [...] Resolved Date ALT (SGPT) level raised 03/27/2021 062 11/2021 Bloating 01/25/2021 2024 Neck swelling 01/25/2021 09/05/2021 Nausea and vomiting 01/25/2021 06/01/19 25 Tobacco use disorder 05/14/2018 022 Precordial pain 07/16/2017 2024 Elevated liver enzymes 07/16/201709/05 Epigastric pain 07/16/2017 2024 Non-intractable vomiting with nausea 07/16/2017 2024 Type 2 diabetes mellitus wit h hyperglycemia, without long-term current use of insulin 07/16/2017 2024 Encounters Date Type Department Care Team Description 11/24/2024 Telephone [facility] [address] [place] [address] Cecilia Aguila RN High Blood Pressure (149/84) 11/23/2024 Travel 11/22/2024 Refill [facility] [place] [address] [place] [address] Amber Aldrich APRN, LIDA Medication Refill 11/22/2024 Refill [facility] [place] [address] [place] [address] Amber Aldrich APRN, LIDA Medication Refill 11/22/2024 Results Follow-Up [facility] [address] [place] [address] Alize Acosta APRN, FRONT MAKER N-TERMINAL- PRO B TYPE NATRIURETIC PEPTIDE 11/19/2024 Results Follow-Up [facility] Cardiology - [place] [address] [place] [address] Amber Aldrich APRN, CNP BASIC METABOLIC PANEL W/ CALCIUM TOTAL 11/18/2024 3:45 PM CDT Office Visit [facility] Endocrinology - [place] [address] [place] [address] David Salmon MD Type 2 diabetes mellitus with hyperglycemia, without long-term current use of insulin (HCC) (Primary Dx); Medication dose changed; Class 1 obesity due to excess calories with serious comorbidity and body mass index (BMI) of 31.0 to 31.9 in adult Discharge Disposition: Discharged to home or Selfcare 11/17/2024 2:00 PM CDT Telemedicine [facility] [address] [place] [address] Alize Acosta APRN, CNP Hypertension, essential (Primary Dx); Chronic combined systolic and diastolic CHF (congestive heart failure) (HCC); Type 2 diabetes mellitus without complication, without long-term current use of insulin; Shortness of breath Discharge Disposition: Discharged to home or Selfcare 11/16/2024 Results Follow-Up [facility] Adult Pediatric Inpatient Virtual [address] [place] [address] Amber Aldrich APRN, CNP NM CARD MULTI SPECT WITH WALL MOTION AND EJECTION FRACTION 11/16/2024 Travel 11/16/2024 Documentation Only [facility] [address] [place] [address] Alize Acosta APRN, CNP 11/15/2024 Travel 11/13/2024 Telephone [facility] [address] [address] Jaylyn Mosqueda RN HTN alert - 145/91, survey alert - coughing worse than norm ([facility] ) 11/12/2024 1:00 PM CDT Office Visit [facility] Primary Care - [place] [address] [place] [phone] Tani Biggs, PAC ERRONEOUS ENCOUNTER--DISREGARD (Primary Dx); Anaphylaxis, subsequent encounter Discharge Disposition: Discharged to home or Selfcare 11/12/2024 10:40 AM CDT Urgent Care Visit [facility] [address] [facility] [place] [phone] Charmaine Cordova APRN, LIDA Primary osteoarthritis of right hand (Primary Dx); Heart failure with mid-range ejection fraction (HFmEF) (HCC); Type 2 diabetes mellitus without complication, without long-term current use of insulin Discharge Disposition: Discharged to home or Selfcare 11/12/2024 9:39 AM CDT - 11/12/2024 11:59 PM CDT Hospital Encounter [facility] Nuclear Medicine [address] [place] [address] Amber Aldrich APRN, LIDA Discharge Disposition: Discharged to home or Selfcare 11/12/2024 9:05 AM CDT - 11/12/2024 9:38 AM CDT [facility] [address] [place] [address] Amber Aldrich APRN, LIDA Discharge Disposition: Discharged to home or Selfcare 11/12/2024 8:56 AM CDT - 11/12/2024 9:04 AM CDT [facility] [address] [place] [address] Amber Aldrich APRN, LIDA Discharge Disposition: Discharged to home or Selfcare 11/12/2024 8:40 AM CDT - 11/12/2024 8:55 AM CDT Hospital [facility] Stress [address] [place] [address] Amber Aldrich APRN, LIDA Discharge Disposition: Discharged to home or Selfcare 11/12/2024 Telephone [facility] [address] [place] [phone] Monica Dimas RN Hand Pain 11/12/2024 Travel 11/09/2024 2:00 PM CDT [facility] [address] [place] [phone] Alize Acosta APRN, FRONT MAKER Hypertension, essential (Primary Dx); Chronic combined systolic and diastolic CHF (congestive heart failure) (HCC); Type 2 diabetes mellitus without complication, without long-term current use of insulin; Uncomplicated asthma, unspecified asthma severity, unspecified whether persistent 11/07/2024 Travel 11/02/2024 Travel 11/01/2024 Telephone [facility] Family Medicine [facility] [address] [place] [phone] Tani Biggs PAC Medication Management 11/01/2024 Documentation Only [facility] [address] [place] [phone] Gisell Espinoza, PT 10/26/2024 1:00 PM CDT Office Visit [facility] Cardiology [facility] [address] [place] [phone] Amber Aldrich APRN, LIDA Chronic combined systolic and diastolic CHF (congestive heart failure) (HCC) (Primary Dx); Dyspnea on exertion Discharge Disposition: Discharged to home or Selfcare 10/25/2024 Travel 10/25/2024 [facility] [address] [place] [phone] Jodee Montoya RN High Blood Pressure 10/20/2024 [facility] [address] [place] [phone] David Salmon MD Medication Refill 10/18/2024 1:00 PM CDT Office Visit [facility] Pulmonology & Sleep Medicine [facility] [address] [place] [address] Dom Quiñonez MD EDDI (obstructive sleep apnea) (Primary Dx); Mild intermittent asthma without complication; Hypertension, essential; Non morbid obesity Discharge Disposition: Discharged to home or Selfcare 10/18/[address] [phone] Patricia Dimas RN Hypertension 10/16/2024 Travel 10/11/2024 Patient Outreach [facility] [address] [place] [phone] Navigator, Digital Health Patient Outreach; OC[employer] Equipment 10/07/2024 Telephone [facility] [place] [phone] [place] [address] Tani Biggs, PAC Medication Refill 10/06/2024 Patient Outreach [facility] [address] [place] [phone] Navigator, Digital Health Patient Outreach 10/03/2024 Refill [facility] [place] [address] [place] [address] Tani Biggs, PAC Medication Refill 10/01/[address] [phone] Jaylyn Mosqueda RN Alert for [facility]F survey score ([facility] ); Cough 09/30/2024 12:45 PM CDT E-Visit [facility] [place] [address] [place] [address] Tani Biggs, PAC E-Visit for Back Pain 09/30/2024 Nurse Triage [facility] [address] [place] [phone] Tani Biggs, PAC Appointment 09/30/2024 Travel 09/30/2024 MyChart RX Renewal [facility] [place] [address] [place] [address] Rebeka Trinidad MD Medication Renewal Reviewed 09/21/2024 3:20 PM CDT Office Visit [facility] On[facility] Services [address] [place] [address] Melony Asif Stacey, PAC Anemia, unspecified type (Primary Dx); Beta thalassemia trait Discharge Disposition: Discharged to home or Selfcare 09/21/2024 Travel 09/20/2024 Travel 09/16/2024 Results Follow-Up [facility] On[facility] Services [address] [place] [address] Melony Asif Stacey, PAC VITAMIN B12, FERRITIN, IRON,TRANSFERN,CALC. TIBC,%SAT, Additional followed-up results: 4 09/13/2024 10:30 AM CDT Lab [facility] [address] [place] [address] Melony Asif Stacey, PAC Anemia, unspecified type Discharge Disposition: Discharged to home or Selfcare 09/13/2024 Travel 09/06/2024 Travel 09/03/2024 11:00 AM CDT - 09/03/2024 11:59 PM CDT Hospital Encounter [facility] Ultrasound [address] [place] [address] Tani Biggs PAC Discharge Disposition: Discharged to home or Selfcare 09/03/2024 Results Follow-Up [facility] Primary [facility] [place] [address] [place] [address] Tani Biggs PAC US LEFT DUPLEX LOWER EXTREMITY VEINS 09/03/2024 Travel 09/03/2024 Telephone [facility] [address] [place] [phone] Tani Biggs PAC Results from Last 3 Months Immunizations Immunization Administration Dates Next Due Influenza Vaccine greater than 3 yrs 12/23/2019 Influenza Vaccine, Quadrivalent, PF 11/3 ,11/13/2021,11/30/2020,12/15 Influenza, Seasonal, Injecta ble, Undefined 12/23/2019 Pneumococcal Vaccine Adult - 23 Valent Pneumococcal conjugate PCV20 , polysaccharide HDL191 conjugate, adjuvant, PF 06/07/2022 TDAP Vaccine 06/07/2022 [...] alcohol) Last drink in 2020 [facility] Utilities Answer Date Recorded In the past 12 months has [employer], [employer], oil, or water [employer] threatened to shut off services in your [...] any clubs o r organizations such as cheondoism groups, unions, fraternal or athletic groups, or [...] Total Score - Questions 1-9 24 07/2024 [employer] of Occupat ional Health - Occupational Stress [...] in a residential (including now)? No 03/24/2023 Housing Stability Vital Sign Answer Jovany e Recorded In the last 12 months, was t here a time when you were not able to pay the mortgage or rent on time? Yes 03/22/2024 In the past 12 months, how m any times have you moved where you were living? 0 03/22/2024 At any time in the past [address] [facility], were you homeless or living in a residential (including now)? 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 Not on file Not on file Last Filed Vital Signs Vital Sign Reading Time Taken Comments Blood Pressure 126/68 11/18/2024 3:50 PM CDT Pulse 88 11/18/2024 3:50 PM CDT Temperature 36.6 C (97.8 F) 11/18/2024 3:50 PM CDT Respiratory Rate 22 11/18/2024 3:50 PM CDT Oxygen Saturation 98% 11/18/2024 3:50 PM CDT Inhaled Oxygen Concentration - - Weight 80.1 kg (176 lb 9.6 oz) 11/18/2024 3:50 P M CDT Height 160 cm (5' 3) 11/12/2024 9:39 AM CDT Body Mass Index 31.28 11/12/2024 9:39 AM CDT Plan of Treatment Upcoming Encounters Date Type Department Care Team (Late st Contact Info) Description 12/10/2024 2:40 PM CDT Telemedicine [facility] [address] [place] [phone] 01/03/2025 11:30 AM CDT [facility] [place] [address] [place] [address] Rachelle Nava, CAGE/VAULT SUPERVISOR, BUILDING CONSTRUCTION INSPECTOR [address] [place] [address] 02/11/2025 2:00 PM ENVIRONMENTAL SERVICES WORKER Telemedicine [facility] [address] [place] [address] 02/16/2025 2:00 PM ENVIRONMENTAL SERVICES WORKER Telemedicine [facility] [address] [place] [address] Alize Acosta, CAGE/VAULT SUPERVISOR, FRONT MAKER [address] [place] [address] 02/21/2025 3:45 PM ENVIRONMENTAL SERVICES WORKER Office Visit [facility] Medical [facility] - Endocrinology - [place] [address] [place] [phone] David Salmon MD [address] [phone] 03/04/2025 3:10 PM ENVIRONMENTAL SERVICES WORKER Lab [facility] [place] [address] [place] [address] 03/04/2025 3:30 PM ENVIRONMENTAL SERVICES WORKER Office Visit [facility] - Primary Care - [place] [address] [place] [address] Tani Biggs PAC [address] [place] [address] 03/17/2025 1:30 PM ENVIRONMENTAL SERVICES WORKER Lab [facility] [address] [place] [phone] Melony Asif August, PAC [address] [place] [address] Discharge Disposition: Discharged to home or Selfcare 03/25/2025 1:20 PM ENVIRONMENTAL SERVICES WORKER [facility] [address] [place] [phone] Melony Asif Stacey, PAC [address] [place] [address] Discharge Disposition: Discharged to home or Selfcare 04/25/2025 2:00 PM ENVIRONMENTAL SERVICES WORKER Office Visit [facility] - Cardiology - [place] [address] [place] [phone] Laisha Griffin, DO [address] [address] 07/18/2025 1:00 PM CDT Office Visit [facility] - Pulmonology & Sleep Medicine - [place] [address] [place] [phone] Dom Quiñonez MD [address] [place] [address] Health Maintenance Due Date Last Done Comments HPV/Cotest 06/01/1999 Cologuard 2014 Immunochemical Fecal Occult Blood 2014 Zoster Immunization (2 of 2) 09/07/2022 07/13/2022 Mammogram 06/20/2023 06/19/2022, 02/16/2020 Medicare Initial AWV [id number] 11/09/2023 Cervical Cancer Screening ([facility]S) 09/26/2024 Pap Smear 09/26/2024 09/26/2021, 03/29/2020 Lung Cancer Screening 10/21/2024 10/22/2023 , 10/22/2023, 06/18/2023 Influenza Immunization (#1) 11/08/202401/10, 11/13/2021, 11/30/2020, Additional history exists Diabetes: Foot Exam 11/13/2024 11/14/2023, 10/30/2022, 06/07/2022 Diabetes: Eye Exam 11/30/2024 12/01/2023, 0 10/19/2021, 10/09/2021 Diabetes: Hemoglobin A1c 05/18/2025 025, 08/17/2024, 01/25/2024, Additional history exists Diabetes: Nephropathy Screening 09/13/2025 [...] to change: Department associated with goal[facility] Steps to achieve goal: Walking 5 days a week I want to be able to be around people and feel less depressed. Behavioral Health Worsening(0 09/22/2023 3:12 PM CDT) Yes Hilda Tinajero MOTORIZED [place] Note: Goal/Objective: Decrease symptoms of depression and anxiety. Anticipated Time Frame for Goal Completion: 3 months Goal Reviewed with: patient Readiness to change: Thinking about making a change Department associated with goal: [facility] Steps to achieve goal: [...] diet Depression Depression Improving(0 03/15/2022 2:27 PM ENVIRONMENTAL SERVICES WORKER) No Breanne Saldana LCSW Note: Goal/Objective: Decrease [...] Ready to change Department associated with goal: [facility] Steps to achieve goal: [...] is salt. Medical Devices Implanted Type Area Fibre Composite Technician Device Identifier Shelf Expiration Date Model / Serial / Lot Device Clsr 6-7fr Mynxgrip Associate Marketing Manager Vasc Bln Cath Lock Syr Integrate Sealant 10ml Lf Disp - [id number] Implanted:Qty : 1 on 11/07/2017 by Divina Xie MD at [facility] IMPLANT Right: Groin [employer] 10/08/2019 [id number] / / [id number] Procedures Procedure Name Priority Date/Time Associated Diagnosis Comments POCT GLYCOSYLATED HEMOGLOBIN Routine 11/18/2024 3:56 PM CDT Type 2 diabetes mellitus with hyperglycemia, without long-term current use of insulin (HCC) BASIC METABOLIC PANEL W/ CALCIUM TOTAL Routine 11/18/2024 3:15 PM CDT Decreased GFR N-TERMINAL- PRO B TYPE NATRIURETIC PEPTIDE Routine 11/18/2024 3:15 PM CDT Hypertension, essential Chronic combined systolic and diastolic CHF (congestive heart failure) ([facility]) NM CARD MULTI SPECT WITH WALL MOTION AND EJECTION FRACTION Routine 11/12/2024 9:46 AM CDT Chronic combined systolic and diastolic CHF (congestive heart failure) ([facility]) Dyspnea on exertion ADULT CV STRESS PHARMACOLOGIC W NUC MED Routine 11/12/2024 9:25 AM CDT Chronic combined systolic and diastolic CHF (congestive heart failure) ([facility]) Dyspnea on exertion PAIN CONSULT 10/13/2024 12:00 [...] AM CDT Pain of left lower leg HM DILATED EYE EXAM 12/01/2023 12:[address] CHEST SCREENING WO Routine 06/18/2023 12:34 PM CDT Ground glass opacity present on imaging of lung HEPATITIS C ANTIBODY Routine 08/19/2022 12:26 PM CDT Gout, unspecified cause, unspecified chronicity, unspecified site Other specified abnormal immunological findings in serum Osteoarthritis of multiple joints, unspecified osteoarthritis type Allergy, initial encounter Other specified counseling Other nursing home (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 YAZAN SCREENING BILATERAL DIGITAL W CAD W ROSEANN Routine 06/19/2022 3:15 PM CDT Encounter for screening mammogram for breast cancer PATHOLOGY CYTOLOGY ADMINISTRATIVE APPEALS [employer]BER Routine 09/26/2021 9:23 AM CDT Vaginal odor CELIAC ANTIBODY PANEL Routine 11/30/2020 8:41 AM CDT SI (sacroiliac) pain Acute bilateral low back pain with bilateral sciatica Low lying conus medullaris (HCC) from Last 3 Months or Most Recently Relevant to Health Maintenance Results * (ABNORMAL) POCT GLYCOSYLATED HEMOGLOBIN (11/18/2024 3:56 PM CDT) HGB-A1C 7.7(A) 4 - 6 % Blood 11/18/2024 3:56 PM CDT David Salmon MD POINT OF CARE TESTING (MANUAL) F inal Result * N-TERMINAL- PRO B TYPE NATRIURETIC PEPTIDE (11/18/2024 3:15 PM CDT) NT PROBNP 91.4 <450.0 pg/mL 11/18/2024 5:02 PM CDT [facility] Comment: AGE pg/mL INTERPRETATION All <300 Negative: HF (Heart Failure) unlikely 18 to <50 >=300.0 to <450.0 Indeterminate. Consider other causes of NT-proBNP elevation 50 to 75 >=300.0 to <900.0 Indeterminate. Consider other causes of NT-proBNP elevation >75 >=300.0 to <1800.0 Indeterminate. Consider other causes of NT-proBNP elevation 18 to <50 >=450.0 Positive: HF likely 50 to 75 >=900.0 Positive: HF likely >75 >=1800.0 Positive: HF likely Total protein levels at or above 12.6 mg/dl may falsely decrease NT-proBNP values. Blood Venipuncture / Unknown 11/18/2024 3:15 PM CDT 11/18/2024 4:34 PM CDT us Alize Acosta APRN, CNP CHEMISTRY ORDERABLES Final Result [facility] [address] [place] [address] * (ABNORMAL) BASIC METABOLIC PANEL W/ CALCIUM TOTAL (11/18/2024 3:15 PM CDT) SODIUM 137 136 - 145 mmol/L 11/18/2024 5:02 PM CDT [facility] POTASSIUM 4.3 3.5 - 5.1 mmol/L 11/18/2024 5:02 PM CDT [facility] CHLORIDE 103 98 - 107 mmol/L 11/18/2024 5:02 PM CDT [facility] CO2, VENOUS 23 22 - 30 mmol/L 11/18/2024 5:02 PM CDT [facility] ANION GAP 15.3 <18.0 mmol/L 11/18/2024 5:02 PM CDT [facility] GLUCOSE 159(H) 70 - 99 mg/dL 11/18/2024 5:02 PM CDT [facility] BUN 17 10 - 20 mg/dL 11/18/2024 5:02 PM CDT [facility] CREATININE, BLOOD 1.04(H) 0.60 - 1.00 mg/dL 11/18/2024 5:02 PM CDT [facility] BUN/CREATININE RATIO 16 12 - 20 ratio 11/18/2024 5:02 PM CDT [facility] CALCIUM 10.3 8.7 - 10.5 mg/dL 11/18/2024 5:02 PM CDT [facility] IS THE PATIENT REQUIRED TO BE FASTING? No 11/18/2024 5:02 PM CDT [facility] GFR, ESTIMATED >60 >=60 11/18/2024 5:02 PM CDT [facility] Comment: Creatinine Clearance is the preferred criteria for selecting drug dose adjustments in renally impaired patients. The GFR is provided as additional pertinent clinical information. GFR is reported in mL/min/1.73 sq m. Calculation based on the 2020 Chronic Kidney Disease Epidemiology Collaboration (CKD-EPI) equation refit without adjustment for race. GFR, EST. >60 >=60 025 5:02 PM CDT [facility] Comment: Creatinine Clearance is the preferred criteria for selecting drug dose adjustments in renally impaired patients. The GFR is provided as additional pertinent clinical information. GFR is reported in mL/min/1.73 sq m. Calculation based on the 2009 Chronic Kidney Disease Epidemiology Collaboration (CKD-EPI). GFR, EST. NONAFRICAN 55(L) >=60 11/18/2024 5:02 PM CDT [facility] Comment: Creatinine Clearance is the preferred criteria for selecting drug dose adjustments in renally impaired patients. The GFR is provided as additional pertinent clinical information. GFR is reported in mL/min/1.73 sq m. Calculation based on the 2009 Chronic Kidney Disease Epidemiology Collaboration (CKD-EPI). Blood Venipuncture / Unknown 11/18/2024 3:15 PM CDT 11/18/2024 4:34 PM CDT Amber Aldrich APRN, LIDA CHEMISTRY MYLENE HAMMER Final Result [facility] [address] [place] [address] * NM CARD MULTI SPECT WITH WALL [...] less likely true ischemia. Sharri Gaspar MD, [facility], [facility] Interventional and Structural Cardiology [facility] Millinery Designerpipe washer [facility] [employer] Email: [email or web address] Office phone: [phone] [facility]) Office: [phone] Amber Aldrich CAGE/VAULT SUPERVISOR, FRONT MAKER IMG NM CARDIAC NI ORDERABLES Final Result * ADULT CV STRESS PHARMACOLOGIC W NUC MED (11/12/2024 9:25 AM CDT) Anatomical Region Laterality Modality CARDIO N/A Electrocardiogra phy Narrative 11/16/2024 4:02 PM CDT Non-Imaging Stress Test Patient Name HANNAH BONNY Sanchez 1970 Patient ID ([facility]) [id number] Indications: Chest pain. Study Date11/12/2024 Type of Study: Non-Imaging Stress Test: Pharmacological. Conclusions Rest ECG Normal sinus rhythm. No ST segment changes diagnostic of ischemia. Standing HR:74 bpmStanding BP:123/98 mmHg Results ECG No ST segment changes diagnostic of ischemia. Nonspecific ST segment changes. Please refer to nulcear stress report for full details Stress Stress Type - Protocol:Pharmacologic - Lexiscan Protocol Peak HR: 99 bpm [id number] Peak BP: 125/87 mmHg Predicted HR: 165 bpm % of predicted HR: 60 Test Duration: 5:00 min Reason for Termination: Completed Stress Protocol:Pharmacologic - Lexiscan Protocol +-----+---------+-----+------+-----+ +------+--------+--+--------+----+ ----- -+ !Stage!Stage !Time !Dosage!Heart!Other !Dosage!Blood !CP!Pain !Pain!Pain ! !# !Name ! ! !Rate !Medication! !Pressure! !Location!Type!Action! +-----+---------+-----+------+-----+ +------+--------+--+--------+----+ ----- -+ !0.0 !PREINFSN !03:24! !74 ! ! !123/98 ! ! ! ! ! ! !SUPINE ! ! ! ! ! ! ! ! ! ! ! +-----+---------+-----+------+-----+ +------+--------+--+--------+----+ ----- -+ !1.0 !INFUSION !00:29! !70 ! ! ! ! ! ! ! ! ! !DOSE 1 ! ! ! ! ! ! ! ! ! ! ! +-----+---------+-----+------+-----+ +------+--------+--+--------+----+ ----- -+ !2.0 !POSTINFSN!03:35! !88 ! ! !120/85 ! ! ! ! ! +-----+---------+-----+------+-----+ +------+--------+--+--------+----+ ----- -+ Demographics Age 54 Gender Female Race Black Height 62.99 in. Weight 172 lbs. BMI 30.48 kg/m^2 Stress Director Design Nurse Albert Ibarra RN Interpreting Hubert Referring Physician Sharri Physician Procedure Note Sharri Gaspar MD - 11/16/2024 Non-Imaging Stress Test Patient Name HANNAH Littlejohn Laura 1970 Patient ID ([facility]) [id number] Indications: Chest pain. Study Date11/12/2024 Type of Study: Non-Imaging Stress Test: Pharmacological. Conclusions Rest ECG Normal sinus rhythm. No ST segment changes diagnostic of ischemia. Standing HR:74 bpmStanding BP:123/98 mmHg Results ECG No ST segment changes diagnostic of ischemia. Nonspecific ST segment changes. Please refer to nulcear stress report for full details Stress Stress Type - Protocol:Pharmacologic - Lexiscan Protocol Peak HR: 99 bpm [id number] Peak BP: 125/87 mmHg Predicted HR: 165 bpm % of predicted HR: 60 Test Duration: 5:00 min Reason for Termination: Completed Stress Protocol:Pharmacologic - Lexiscan Protocol +-----+---------+-----+------+-----+ +------+--------+--+--------+----+ ----- -+ !Stage!Stage !Time !Dosage!Heart!Other !Dosage!Blood !CP!Pain!Pain!Pain ! !# !Name ! ! !Rate !Medication! !Pressure!!Location!Type!Action! +-----+---------+-----+------+-----+ +------+--------+--+--------+----+ ----- -+ !0.0 !PREINFSN !03:24! !74 ! ! !123/98 ! !! ! ! ! !SUPINE ! ! ! ! ! ! ! !! ! ! +-----+---------+-----+------+-----+ +------+--------+--+--------+----+ ----- -+ !1.0 !INFUSION !00:29! !70 ! ! ! ! !! ! ! ! !DOSE 1 ! ! ! ! ! ! ! !! ! ! +-----+---------+-----+------+-----+ +------+--------+--+--------+----+ ----- -+ !2.0 !POSTINFSN!03:35! !88 ! ! !120/85 ! !! ! ! +-----+---------+-----+------+-----+ +------+--------+--+--------+----+ ----- -+ Demographics Age 54 Gender Female Race Black Height 62.99 in. Weight 172 lbs. BMI 30.48 kg/m^2 Stress Director Design Nurse Albert Ibarra RN Interpreting Hubert Referring Physician Sharri Physician us Amber Aldrich APRN, CNP IMG STRESS Final Result * PAIN CONSULT (10/13/2024 12:00 AM CDT) 10/13/2024 us Provider Scan GENERIC SCAN ORDERS CONSULT Donna l Result Performing Organization Address [facility] Co de Phone Number SCAN * NEUROSURGY CONSULT (10/01/2024 12:00 AM CDT) 10/01/2024 us Provider Scan GENERIC SCAN ORDERS CONSULT Donna l Result Performing Organization Address [facility] de Phone Number SCAN * XR - SPINE (09/20/2024 12:00 AM CDT) 09/20/2024 us Provider Scan IMG DIAGNOSTIC ORDERABLES Final Result Performing Organization Address [facility] de Phone Number SCAN * IRON,TRANSFERN,CALC.TIBC,%SAT (09/13/2024 10:54 AM CDT) IRON 74 25 - 156 mcg/dL 09/13/2024 11:40 AM CDT [facility] TRANSFERRIN 317 180 - 382 mg/dL 09/13/2024 11:40 AM CDT [facility] TIBC, CALCULATED 396 265 - 497 mcg/dL 09/13/2024 11:40 AM CDT [facility] % SATURATION * 19 15 - 62 % 09/13/2024 11:40 AM CDT [facility] Blood Venipuncture / Unknown 09/13/2024 10:54 AM CDT 09/13/2024 10:54 AM CDT us Melony Asif PAC CHEMISTRY ORDERABLES Donna l Result [facility] [address] [place] [address] * (ABNORMAL) CBC WITH AUTO DIFFERENTIAL (09/13/2024 10:54 AM CDT) WBC 6.81 4.00 - 12.00 10(3)/mcL 09/13/2024 11:18 AM CDT [facility] RBC 5.56(H) 3.80 - 5.30 10(6)/[facility] 09/13/2024 11:18 AM CDT [facility] HEMOGLOBIN (HGB) 13.5 12.0 - 15.8 g/dL 09/13/2024 11:18 AM CDT [facility] HEMATOCRIT (HCT) 43.0 36.0 - 47.0 % 09/13/2024 11:18 AM CDT [facility] MCV 77.3(L) 82.0 - 96.0 fL 09/13/2024 11:18 AM CDT [facility] MCH 24.3(L) 26.0 - 34.0 pg 09/13/2024 11:18 AM CDT [facility] MCHC 31.4 31.0 - 36.0 g/dL 09/13/2024 11:18 AM CDT [facility] PLATELET COUNT 237 140 - 440 10(3)/[facility] 09/13/2024 11:18 AM CDT [facility] RDW 18.2(H) 11.8 - 15.5 % 09/13/2024 11:18 AM CDT [facility] MPV 11.8 9.7 - 12.4 fL 09/13/2024 11:18 AM CDT [facility] NEUTROPHILS 61.8 47.0 - 73.0 % 09/13/2024 11:18 AM CDT [facility] LYMPHOCYTES 25.4 18.0 - 42.0 % 09/13/2024 11:18 AM CDT [facility] MONOCYTES 7.9 4.0 - 12.0 % 09/13/2024 11:18 AM CDT [facility] EOSINOPHILS 3.7 0.0 - 5.0 % 09/13/2024 11:18 AM CDT [facility] BASOPHILS 0.6 0.0 - 1.0 % 09/13/2024 11:18 AM CDT [facility] IMMATURE GRANULOCYTE 0.6(H) 0.0 - 0.4 % 09/13/2024 11:18 AM CDT [facility] Comment:Immature Granulocyte s includes Metamyelocytes, Myelocytes, and Promyelocytes. ABSOLUTE NEUTROPHILS 4.21 1.60 - 7.70 10(3)/mcL 09/13/2024 11:18 AM CDT [facility] ABSOLUTE LYMPHOCYTES 1.73 1.30 - 3.20 10(3)/[facility] 09/13/2024 11:18 AM CDT [facility] ABSOLUTE MONOCYTES 0.54 0.20 - 1.00 10(3)/[facility] 09/13/2024 11:18 AM CDT [facility] ABSOLUTE EOSINOPHIL 0.25 0.00 - 0.40 10(3)/[facility] 09/13/2024 11:18 AM CDT [facility] ABSOLUTE BASOPHILS 0.04 0.00 - 0.10 10(3)/[facility] 09/13/2024 11:18 AM CDT [facility] ABSOLUTE IMMATURE GRANULOCYTE 0.04(H) 0.00 - 0.03 10 (3) mcL. 09/13/2024 11:18 AM CDT [facility] NRBC PER 100 WBC 0 09/14/19 11:18 AM CDT [facility] Blood Venipuncture / Unknown 09/13/2024 10:54 AM CDT 09/13/2024 10:54 AM CDT Melony Asif PAC HEMATOLOGY ORDERABLES Fin al Result [facility] [address] [place] [address] * (ABNORMAL) FREE KAPPA & LAMBDA LIGHT CHAINS SERUM (09/13/2024 10:54 AM CDT) Pathologist [facility] Free [place] Lt Ch[place] 26.34(H) 3.30 - 19.40 mg/L 09/15/2024 10:19 AM CDT [facility] Free Lambda Lt Chn 28.92(H) 5.71 - 26.30 mg/L 09/15/2024 10:19 AM CDT [facility] free toan pinto ratio 0.91 0.26 - 1.65 09/15/2024 10:19 AM CDT [facility] Blood Venipuncture / Unknown 09/13/2024 10:54 AM CDT 09/13/2024 10:54 AM CDT [facility] PAC CHEMISTRY ORDERABLES Donna l Result Performing Organization Address [facility] Co de Phone Number [facility] [address] [place] [address], * VITAMIN B12 (09/13/2024 10:54 AM CDT) [facility] VITAMIN B12 451 213 - 816 pg/mL 09/13/2024 12:02 PM CDT [facility] Blood Venipuncture / Unknown 09/13/2024 10:54 AM CDT 09/13/2024 10:54 AM CDT [facility] PAC CHEMISTRY ORDERABLES Donna l Result Performing Organization Address City/[facility]/ZIP Co de Phone Number [facility] [address] [place] [address] * (ABNORMAL) IMMUNOFIXATION W/ ELECTROPHORESIS SERUM (09/13/2024 10:54 AM CDT) TOTAL PROTEIN 7.3 6.0 - 8.0 g/dL 09/15/2024 2:01 PM [facility] % ALBUMIN 51.7(L) 55.8 - 66.7 % 09/15/2024 2:01 PM [facility] ALBUMIN SERUM 3.8 2.5 - 5.4 g/dL 09/15/2024 2:01 PM [facility] % ALPHA 1 GLOBULIN 3.2 2.9 - 4.9 % 09/15/2024 2:01 PM [facility] ALPHA 1 0.2 0.2 - 0.4 g/dL 09/15/2024 2:01 PM [facility] % ALPHA 2 GLOBULIN 12.2(H) 7.1 - 11.8 % 09/15/2024 2:01 PM [facility] ALPHA 2 0.9 0.5 - 1.0 g/dL 09/15/2024 2:01 PM [facility] % BETA 16.5(H) 8.4 - 13.1 % 09/15/2024 2:01 PM [facility] BETA-GLOBULIN 1.2(H) 0.5 - 1.1 g/dL 09/15/2024 2:01 PM [facility] % GAMMA GLOBULIN 16.4 11.1 - 18.8 % 09/15/2024 2:01 PM [facility] GAMMA 1.2 0.7 - 1.5 g/dL 09/15/2024 2:01 PM [facility] IMMUNOGLOBULIN G 1,113 552 - 1,631 mg/dL 09/15/2024 2:01 PM [facility] IMMUNOGLOBULIN A 281 65 - 421 mg/dL 09/15/2024 2:01 PM [facility] IMMUNOGLOBULIN M 140 33 - 293 mg/dL 09/15/2024 2:01 PM [facility] INTERPRETATION SERUM No abnormal protein band is detected by serum protein electrophoresis. Serum immunofixation electrophoresis is negative for monoclonal immunoglobulins. Reviewed by Laura Nicholas, Ph.D. 09/15/2024 2:01 PM CDT [facility] A/G RATIO, SERUM 1.1 09/16/19 2:01 PM CDT [facility] Blood Venipuncture / Unknown 09/13/2024 10:54 AM CDT 09/13/2024 10:54 AM CDT Narrative [facility] - 09/15/2024 2:01 PM CDT Reviewed by Terrance Ellsworth Jr., M.D. [facility] PAC CHEMISTRY ORDERABLES Donna l Result [facility] [address] [place] [address], * FERRITIN (09/13/2024 10:54 AM CDT) FERRITIN 31 5 - 204 ng/mL 09/13/2024 11:56 AM CDT [facility] Blood Venipuncture / Unknown 09/13/2024 10:54 AM CDT 09/13/2024 10:54 AM CDT [facility] PAC CHEMISTRY ORDERABLES Donna l Result [facility] [address] [place] [address] * (ABNORMAL) CMP (COMPREHENSIVE METABOLIC PANEL) (09/13/2024 10:54 AM CDT) SODIUM 137 136 - 145 mmol/L 09/13/2024 11:40 AM CDT [facility] POTASSIUM 4.6 3.5 - 5.1 mmol/L 09/13/2024 11:40 AM CDT [facility] CHLORIDE 112(H) 98 - 107 mmol/L 09/13/2024 11:40 AM CDT [facility] CO2, VENOUS 16(L) 22 - 30 mmol/L 09/13/2024 11:40 AM CDT [facility] ANION GAP 13.6 <18.0 mmol/L 09/13/2024 11:40 AM CDT [facility] GLUCOSE 150(H) 70 - 99 mg/dL 09/13/2024 11:40 AM CDT [facility] BUN 24(H) 10 - 20 mg/dL 09/13/2024 11:40 AM T [facility] CREATININE, BLOOD 1.13(H) 0.60 - 1.00 mg/dL 09/13/2024 11:40 AM CDT [facility] BUN/CREATININE RATIO 21(H) 12 - 20 ratio 09/13/2024 11:40 AM T [facility] TOTAL PROTEIN 7.7 6.0 - 8.0 g/dL 09/13/2024 11:40 AM T [facility] ALBUMIN 4.3 3.5 - 5.0 g/dL 09/13/2024 11:40 AM T [facility] A/G RATIO 1.3 1.0 - 2.2 09/13/2024 11:40 AM T [facility] CALCIUM 10.5 8.7 - 10.5 mg/dL 09/13/2024 11:40 AM T [facility] T BILI 0.3 0.2 - 1.2 mg/dL 09/13/2024 11:40 AM [facility] SGOT (AST) 34 <43 U/L 09/13/2024 11:40 AM T [facility] SGPT (ALT) 26 <56 U/L 09/13/2024 11:40 AM T [facility] ALKALINE PHOSPHATASE 88 40 - 150 U/L 09/13/2024 11:40 AM [facility] IS THE PATIENT REQUIRED TO BE FASTING? No 09/13/2024 11:40 AM [facility] GFR, ESTIMATED 57(L) >=60 09/13/2024 11:40 AM T [facility] Comment: Creatinine Clearance is the preferred criteria for selecting drug dose adjustments in renally impaired patients. The GFR is provided as additional pertinent clinical information. GFR is reported in mL/min/1.73 sq m. Calculation based on the Chronic Kidney Disease Epidemiology Collaboration (CKD- EPI) equation refit without adjustment for race. GFR, EST. >60 >=60 025 11:40 AM CDT [facility] GFR, EST. NONAFRICAN 50(L) >=60 09/13/2024 11:40 AM CDT [facility] Blood Venipuncture / Unknown 09/13/2024 10:54 AM CDT 09/13/2024 10:54 AM CDT Melony Asif PAC CHEMISTRY ORDERABLES Donna correa Result [facility] [address] [place] [address] * US LEFT DUPLEX LOWER EXTREMITY VEINS [...] Milagros Morris D.O. PS: PS Report ID: [id number] Reading Location: [id number] Procedure Note Milagros Morris DO - 09/03/2024 [...] Milagros Morris D.O. PS: PS Report ID: [id number] Reading Location: [id number] IMPRESSION: 1. No lower extremity deep venous thrombosis. Tani Biggs PAC IMG US ORDERABLES Final Resu lt * HM DILATED [...] Pavithra Ledbetter M.D. FT: FT Report ID: [id number] Reading Location: [id number] Procedure Note Pavithra Pollock MD - 06/21/2023 [...] Pavithra Ledbetter M.D. FT: FT Report ID: [id number] Reading Location: [id number] IMPRESSION: Unchanged bilateral patchy ground-glass opacities, greatest in the left upper lobe. No focal consolidation or suspicious pulmonary nodule. Lung-RADS category 2S: Benign appearance or behavior. Finding other than a pulmonary nodule which is potentially clinically significant. Recommendation: Low dose CT of chest in 3 months. Belkis Mcnair APRN, CNP IMG CT ORDERABL ES Final Result * HEPATITIS C ANTIBODY (08/19/2022 12:26 PM CDT) hepatitis C antibody 0.07 <1 S/CO [facility] ARCH [id number] B 08/19/2022 9:49 PM CDT [facility] Comment: Signal/Cutoff ratio < 0.79 is Nondetected Signal/Cutoff ratio 0.80-0.99 is Grayzone Signal/Cutoff ratio > 0.99 is Detected Supplemental assays are recommended if signal/cutoff ratio is >/=1.00. Signal/cutoff ratio result >/= 5.00 is 97% predictive of positivity for recombinant immunoblot assay (RIBA) and will be reported to the [place] Department of Public Health as required. Blood Venipuncture / Unknown 08/19/2022 12:26 PM CDT 08/19/2022 12:38 PM CDT Tarsha Fernandez MD CHEMISTRY ORDERABLES Final Res ult [facility] [address] [place] [address], [place] * YAZAN SCREENING BILATERAL DIGITAL W [...] Comparison is made to exam dated: 02/16/2020 [facility]. BREAST TISSUE:There are scattered fibroglandular densities [...] exam. Electronically signed by: Solange huynh/jeff:06/19/2022 16:18:35 Infantry Operations Specialist(s): RT Tawny(R)(M), [facility] letter sent: Normal Exam Reading location: [facility] BI-RADS: 1 Negative Procedure Note [...] Comparison is made to exam dated: 02/16/2020 [facility]. BREAST TISSUE:There are scattered fibroglandular densities [...] signed by: Solange Evangelista M.D. ab/penrad:06/19/2022 16:18:35 Infantry Operations Specialist(s): RT Tawny(R)(M), [facility] letter sent: Normal Exam Reading location: [facility] BI-RADS: 1 Negative Emilia Tang MD IMG MAMMO ORDERABLES Final R esult * PATHOLOGY CYTOLOGY ADMINISTRATIVE APPEALS TRIBUNAL MEMBER (09/26/2021 9:23 AM CDT) SPECIMEN ADEQUACY Satisfactory for evaluation. Endocervical/transf ormation zone component is absent. 09/28/2021 9:05 AM CDT [facility] DESCRIPTIVE DIAGNOSIS NEGATIVE FOR INTRAEPITHELIAL LESIONS OR MALIGNANCY. 09/28/2021 9:05 AM CDT [facility] at 0905 CDT OTHER FINDINGS Fungal organisms present, morphologically consistent with Kristen species. 09/28/2021 9:05 AM CDT [facility] HPV Reflex if ASCUS? Yes 09/28/2021 9:05 AM CDT [facility] Automated Examination Analysis of this sample has been assisted by an automated imaging and review system ([employer] System, [employer], [place], [place]). This case is further evaluated and finalized by a graphic coordinator and/or pathologist. 09/28/2021 9:05 AM CDT [facility] Disclaimer The PAP smear is a screening [...] unless clinically indicated. 09/28/2021 9:05 AM CDT [facility] Other SPECIMEN FROM CERVIX OR VAGINA / Unknown Non-Phlebotomy Collection / Unknown 09/26/2021 9:23 AM CDT 09/26/2021 9:23 AM CDT Jackeline Dimas APRN, CNP PATHOLOGY/CYTOLOGY ORDAlisa HAMMER Final Result Performing Organization Address City/State/[facility] Co de Phone Number [facility] [address] [place] [address], [place] from Last 3 Months or Most Recently Relevant to Health Maintenance Insurance MEDICARE [facility] MEDICARE C [facility] Advance Directives Documents on File Type Date Recorded Patient Dice Manager Expl anation Power of Software Development Test Engineer for Health Care 05/23/2021 2:13 PM POA-HC [...] measures to stabilize the patient. Care Teams Accounts Administrator Relationship Specialty Start Date End Date Tani Biggs, PAC [address] [place] [phone] PCP - General Physician Machine Cage Maker 05/31/24 Phil Jacobo MD [address] [place] [phone] Consulting Physician Neurology 03/07/21 Rajiv Mccormack, KELI [address] [place] [address] Nurse Practitioner Gastroenterology 03/07/21 Alize Acosta, RUSSELL, FRONT MAKER [address] [place] [address] Virtual Advanced Care (VAC) HOOKER MACHINE TENDER Advanced Practice Nurse 08/30/21 David Salmon MD [address] [phone] Consulting Physician Endocrinology 01/15/22 Maurilio Farley MD [address] [address] Consulting Physician Colon and Rectal Surgery 09/20/22 Dom Quiñonez MD [address] [place] [phone] Consulting Physician Pulmonary Disease 11/19/21 Rachelle Nava APRN, BUILDING CONSTRUCTION INSPECTOR [address] [place] [address] Nurse Practitioner Advanced Practice Nurse 07/19/22 Sharri Gaspar MD [address] [address] Consulting Physician Cardiology 04/26/24 Amber Aldrich APRN, FRONT MAKER [address] [place] [address] Nurse Practitioner Cardiology 07/30/24
--- OUTSIDE RECORDS SUMMARY | 2024-12-03 01:27 | XMS_ITS | Encounter Summary ---
Author Organization [facility] Address [address] [place] [address] Phone Care Team Providers Care Yarn Comber Name Role Phone Phil Jacobo MD Unavailable [phone] Rajiv Mccormack NP Unavailable Unavailable Alize Acosta APRN, TOASTER OPERATOR Unavailable [phone] Dayo Chaney MD Unavailable Juanita Hauser RN Unavailable UnavailDavid Alexandre MD Unavailable Maurilio Farley MD Unavailable Rebeka Trinidad MD Primary Care Provider + [phone] Dom Quiñonez MD Unavailable Rachelle Nava STAFF DEVELOPMENT COORDINATOR, CRISIS CLINICIAN Unavailable + [phone] Irais Naylro STAFF DEVELOPMENT COORDINATOR, TOASTER OPERATOR Unavailable + [phone] Lorri Leo STAFF DEVELOPMENT COORDINATOR, TOASTER OPERATOR Primary Care Provider + [phone] Rebeka Trinidad MD Primary Care Provider + [phone] Lorri Leo STAFF DEVELOPMENT COORDINATOR, TOASTER OPERATOR Primary Care Provider + [phone] Sharri Gaspar MD Unavailable Tani Biggs [facility] Primary Care Provider + [phone] Amber Aldrich APRN, CNP Unavailable Reason for Visit * Reason Comments Medication Refill Encounter Details Date Type Department Care Team (Late st Contact Info) Description 07/18/2023 Refill [facility] - Primary Care - [place] [address] [place] [address] Emilia Tang MD [address] [place] [address] Medication Refill Social History Tobacco Use Types Packs/Day Years Used Date Smoking Tobacco: Former Cigarettes 1 37.1 1 985 - 04/12/2021 Smokeless Tobacco: Never Alcohol Use Standard Drinks/Week Comments Not Currently 0 (1 standard drink = 0.6 oz pur e alcohol) last drank 2020 [facility] Utilities Answer Date Recorded In the past 12 months has [employer] electric, gas, oil, or water company threatened [...] 03/24/2023 How often do you attend [facility] or anglican services? More than 4 times per year 03/24/2023 Do you belong to any clubs o r organizations such as taoism groups, unions, fraternal or athletic groups, or [...] Total Score - Questions 1-9 18 08/ [facility] - Occupational Stress Questionnaire Answer Date [...] in a penitentiary (including now)? 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 Not on file Not on file documented as of this encounter Plan of Treatment Upcoming Encounters Date Type Department Care Team (Late st Contact Info) Description 12/10/2024 2:40 PM CDT Telemedicine [facility] [address] [place] [address] 01/03/2025 11:30 AM CDT Office Visit [facility] - Neurology - [place] [address] [place] [address] Rachelle Nava APRN, CRISIS CLINICIAN #[address] [place] [address] 02/11/2025 2:00 PM LIFE SKILLS COORDINATOR VOLUNTEER Telemedicine [facility] [address] [place] [address] 02/16/2025 2:00 PM LIFE SKILLS COORDINATOR VOLUNTEER Telemedicine [facility] [address] [place] [address] Alize Acosta, STAFF DEVELOPMENT COORDINATOR, TOASTER OPERATOR [address] [place] [address] 02/21/2025 3:45 PM LIFE SKILLS COORDINATOR VOLUNTEER Office Visit [facility] Medical [facility] - Endocrinology - [place] [address] [place] [address] David Salmon MD #[address] [address] 03/04/2025 3:10 PM LIFE SKILLS COORDINATOR VOLUNTEER [facility] - Primary Care - [place] [address] [place] [address] 03/04/2025 3:30 PM LIFE SKILLS COORDINATOR VOLUNTEER [facility] [place] [address] [place] [address] Tani Biggs, PAC [address] [place] [address] 03/17/2025 1:30 PM LIFE SKILLS COORDINATOR VOLUNTEER [facility] [address] [place] [address] Melony Asif, PAC [address] [place] [address] Discharge Disposition: Discharged to home or Selfcare 03/25/2025 1:20 PM LIFE SKILLS COORDINATOR VOLUNTEER [facility] [address] [place] [address] Melony Asif Stacey, PAC [address] [place] [address] Discharge Disposition: Discharged to home or Selfcare 04/25/2025 2:00 PM LIFE SKILLS COORDINATOR VOLUNTEER Office Visit [facility] - Cardiology - [place] [address] [place] [address] Laisha Griffin, DO [address] [address] 07/18/2025 1:00 PM CDT Office Visit [facility] - Pulmonology & Sleep Medicine - [place] [address] [place] [address] Dom Quiñonez MD #[address] [place] [address] documented as of this encounter Goals Goal Patient Goal Type Associated Problems Recent Progress Patient-Stated? Author ACTIVITY Activity No change(08/08 2:42 PM CDT) Yes Maritza Vanegas RN Note: Bonny will walk five days a week. Goal Reviewed with: Bonny Readiness to change: Department associated with goal: [facility] Steps to achieve goal: Walking 5 days a week I want to be able to be around people and feel less depressed. Behavioral Health Worsening(0 09/22/2023 3:12 PM CDT) Yes Hilda Tinajero, [facility] Note: Goal/Objective: Decrease symptoms of depression and anxiety. Anticipated Time Frame for Goal Completion: 3 months Goal Reviewed with: patient Readiness to change: Thinking about making a change Department associated with goal: [facility] Steps to achieve goal: [...] diet Depression Depression Improving(0 03/15/2022 2:27 PM LIFE SKILLS COORDINATOR VOLUNTEER) No Breanne Saldana, MACHINE CELL TUBER Note: Goal/Objective: Decrease symptoms of depression associated [...] 19 04/18/2024 04/18/2024 04/18/2024 10:4 7 PM LIFE SKILLS COORDINATOR VOLUNTEER Respiratory Rule-Out 05/06/2024 05/06/2024 025 9:20 AM LIFE SKILLS COORDINATOR VOLUNTEER COVID - 05/06/2024 05/06/2024 05/06/2024 9:19 AM LIFE SKILLS COORDINATOR VOLUNTEER Assessment Noted Time PHQ-9 Depression Total Score: 18 023 9:24 AM CDT documented as of this encounter Care Teams Yarn Comber Relationship Specialty Start Date End Date Rebeka Trinidad MD [address] [place] [address] PCP - General Family Medicine 03/26/23 03/29/24 Lorri Leo, STAFF DEVELOPMENT COORDINATOR, TOASTER OPERATOR [address] [place] [address] PCP - General Certified Nurse Practitioner 03/30/24 04/20/24 Rebeka Trinidad MD [address] [place] [address] PCP - General Family Medicine 04/21/24 04/21/24 Lorri Leo, STAFF DEVELOPMENT COORDINATOR, TOASTER OPERATOR [address] [place], [place] [id number] PCP - General Certified Nurse Practitioner 04/22/24 05/30/24 Tani Biggs, PAC [address] [place] [address] PCP - General Physician System Support Developer 05/31/24 Phil Jacobo MD #[address] [place] [address] Consulting Physician Neurology 03/07/21 Rajiv Mccormack, FIRER BISQUE KILN [address] [place] [address] Nurse Practitioner Gastroenterology 03/07/21 Alize Acosta, STAFF DEVELOPMENT COORDINATOR, TOASTER OPERATOR [address] [place] [address] Virtual Advanced Care (VAC) APPRAISAL SPECIALIST Advanced Practice Nurse 08/30/21 Dayo Chaney MD [address] [place] [address] Grain Receiver Cardiovascular Disease - Cardiology 09/20/21 02/12/24 Juanita Mercado RN [place] Registered Nurse Cardiology 12/24/21 02/12/24 David Salmon MD #[address] [phone] Consulting Physician Endocrinology 01/15/22 Maurilio Farley MD #[address] [address] Consulting Physician Colon and Rectal Surgery 09/20/22 Dom Quiñonez MD #2 [facility] [place] [address] Consulting Physician Pulmonary Disease 11/19/21 Rachelle Nava, STAFF DEVELOPMENT COORDINATOR, CRISIS CLINICIAN #[address] [place] [address] Nurse Practitioner Advanced Practice Nurse 07/19/22 Irais Naylor, STAFF DEVELOPMENT COORDINATOR, TOASTER OPERATOR #2 [facility], [facility] [address] [place] [address] Nurse Practitioner Cardiology 06/27/23 07/29/24 Sharri Gaspar MD 2 [facility] [place] [facility] [address] [place] [address] Consulting Physician Cardiology 04/26/24 Amber Aldrich APRN, TOASTER OPERATOR #[address] [place] [address] Nurse Practitioner Cardiology 07/30/24 documented as of this encounter
--- OUTSIDE RECORDS SUMMARY | 2024-12-03 01:27 | XMS_ITS | Encounter Summary ---
Author Organization [facility] Address [address] [place] [address] Phone Care Team Providers Care Water Resource Project Manager Name Role Phone Jackeline Dimas EDUCATIONAL TECHNOLOGIST, GRADE CHECKER Primary Care Provider Phil Jacobo MD Unavailable [phone] Rajiv Mccormack NP Unavailable Unavailable Alize Acosta EDUCATIONAL TECHNOLOGIST, GRADE CHECKER Unavailable [phone] Dayo Chaney MD Unavailable Juanita Hauser RN Unavailable UnavailDavid Alexandre MD Unavailable Emilia Tang MD Primary Care Provider [phone] Maurilio Farley MD Unavailable Physician, Candida Davis MD Unavailable Rebeka Trinidad MD Primary Care Provider + [phone] Dom Quiñonez MD Unavailable Rachelle Nava EDUCATIONAL TECHNOLOGIST, SAMPLE BOOK MAKER Unavailable + [phone] Irais Naylor EDUCATIONAL TECHNOLOGIST, GRADE CHECKER Unavailable + [phone] Lorri Leo EDUCATIONAL TECHNOLOGIST, GRADE CHECKER Primary Care Provider [phone] Rebeka Trinidad MD Primary Care Provider + [phone] Ahmet Lorri Annetta EDUCATIONAL TECHNOLOGIST, [facility] Primary Care Provider + [phone] Sharri Gaspar MD Unavailable Tani Biggs [facility] Primary Care Provider [phone] Amber Aldrich EDUCATIONAL TECHNOLOGIST, [facility] Unavailable Reason for Visit * Reason Comments Medication Refill Encounter Details Date Type Department Care Team (Late st Contact Info) Description 02/19/2022 Refill [facility] - Primary Care - [place] [address] [place] [address] Jackeline Dimas EDUCATIONAL TECHNOLOGIST, [facility] [address] [place] [address] Medication Refill Social History Tobacco [...] 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 No / Unsure 02/22/2022 2:34 PM MILL LABORER documented as of this encounter Miscellaneous Notes * Telephone Encounter - Yoana Rojas, RN - 02/19/2022 2:49 PM CST Dosing changed to 50 mg 01/15/22. LABORER documented in this encounter Plan of Treatment Upcoming Encounters Date Type Department Care Team (Late st Contact Info) Description 12/10/2024 2:40 PM CDT Telemedicine [facility] [address] [place] [address] 01/03/2025 11:30 AM CDT Office Visit [facility] - Neurology - [place] [address] [place] [address] Rachelle Nava APRN, SAMPLE BOOK MAKER [address] [place] [address] 02/11/2025 2:00 PM MILL LABORER Telemedicine [facility] [address] [place] [address] 02/16/2025 2:00 PM MILL LABORER Telemedicine [facility] [address] [place] [address] Alize Acosta, EDUCATIONAL TECHNOLOGIST, GRADE CHECKER [address] [place] [address] 02/21/2025 3:45 PM MILL LABORER Office Visit [facility] - Endocrinology - [place] [address] [place] [address] David Salmon MD #[address] [address] 03/04/2025 3:10 PM MILL LABORER Lab [facility] - [place] [address] 03/04/2025 3:30 PM MILL LABORER Office Visit [facility] - [place] [address] Tani Biggs, [facility] [address] [place] [address] 03/17/2025 1:30 PM MILL LABORER Lab [facility] Oncology Services [address] [place] [address] AsifMelony kumari Stacey, PAC [address] [place] [address] Discharge Disposition: Discharged to home or Selfcare 03/25/2025 1:20 PM MILL LABORER Office Visit [facility] Oncology Services [address] [place] [address] Melony Asif Stacey, [facility] [address] [place] [address] Discharge Disposition: Discharged to home or Selfcare 04/25/2025 2:00 PM MILL LABORER Office Visit [facility] - Cardiology - [place] [address] [place] [address] Laisha Griffin, DO [address] [address] 07/18/2025 1:00 PM CDT Office Visit [facility] - Pulmonology & Sleep Medicine [facility] [address] [place] [address] Dom Quiñonez MD #[address] [place] [address] documented as of this encounter [...] as recommended. Depression Depression Improving( 2:27 PM MILL LABORER) No Breanne Saldana, REVENUE FIELD AGENT Note: Goal/Objective: Decrease symptoms of depression associated [...] 19 04/18/2024 04/18/2024 04/18/2024 10:4 7 PM MILL LABORER Respiratory Rule-Out 05/06/2024 05/06/2024 025 9:20 AM MILL LABORER COVID - 19 05/06/2024 05/06/2024 05/06/2024 9:19 AM MILL LABORER Assessment Noted Time PHQ-9 Depression Total Score: 24 022 3:31 PM MILL LABORER documented as of this encounter Care Teams Water Resource Project Manager Relationship Specialty Start Date End Date Jackeline Dimas APRN, GRADE CHECKER [address] [place] [address] PCP - General Advanced Practice Nurse 07/31/17 Emilia Tang MD [address] [place] [address] PCP - General Family Medicine 06/07/22 03/25/23 Rebeka Trinidad MD [address] [place] [address] PCP - General Family Medicine 03/26/23 03/29/24 Lorri Leo APRN, GRADE CHECKER [address] [place] [address] PCP - General Certified Nurse Practitioner 03/30/24 04/20/24 Rebeka Trinidad MD [address] [place] [address] PCP - General Family Medicine 04/21/24 04/21/24 Lorri Leo APRN, GRADE CHECKER [address] [place] [address] PCP - General Certified Nurse Practitioner 04/22/24 05/30/24 Tani Biggs, PAC [address] [place] [address] PCP - General Physician Trucking Manager 05/31/24 Phil Jacobo MD #[address] [place] [address] Consulting Physician Neurology 03/07/21 Rajiv Mccormack, KELI [address] [place] [address] Nurse Practitioner Gastroenterology 03/07/21 Alize Acosta APRN, GRADE CHECKER [address] [place] [address] Virtual Advanced Care (VAC) OPENING MACHINE CLEANER Advanced Practice Nurse 08/30/21 Dayo Chaney MD [address] [place] [address] Tanning Solution Maker Cardiovascular Disease - Cardiology 09/20/21 02/12/24 Juanita Mercado, [place] Registered Nurse Cardiology 12/24/21 02/12/24 aDvid Salmon MD #[address] [address] Consulting Physician Endocrinology 01/15/22 Maurilio Farley MD #[address] [address] Consulting Physician Colon and Rectal Surgery 09/20/22 PhysicianCandida MD [address] [place] [address] Family Medicine 01/25/22 03/18/23 Dom Quiñonez MD #[address] [place] [address] Consulting Physician Pulmonary Disease 11/19/21 Rachelle Nava, EDUCATIONAL TECHNOLOGIST, SAMPLE BOOK MAKER #2 [facility] [place] [address] Nurse Practitioner Advanced Practice Nurse 07/19/22 Irais Naylor, EDUCATIONAL TECHNOLOGIST, GRADE CHECKER #2 [facility] [address] [place] [address] Nurse Practitioner Cardiology 06/27/23 07/29/24 Sharri Gaspar MD 2 [facility] [place] [facility] [address] [place] [address] Consulting Physician Cardiology 04/26/24 Amber Aldrich APRN, GRADE CHECKER #[address] [place] [address] Nurse Practitioner Cardiology 07/30/24 documented as of this encounter
--- OUTSIDE RECORDS SUMMARY | 2024-12-03 01:27 | XMS_ITS | Encounter Summary ---
Author Organization [facility] Address [address] [place] [address] Phone Care Team Providers Care Cable Lacer Name Role Phone Jackeline Dimas OCCUPATIONAL THERAPY ASSIST, HOME AID Primary Care Provider Phil Jacobo MD Unavailable [phone] Rajiv Mccormack NP Unavailable Unavailable Alize Acosta OCCUPATIONAL THERAPY ASSIST, HOME AID Unavailable [phone] Dayo Chaney MD Unavailable Juanita Hauser RN Unavailable UnavailDavid Alexandre MD Unavailable Emilia Tang MD Primary Care Provider [phone] Maurilio Farley MD Unavailable Physician, Candida Davis MD Unavailable Rebeka Trinidad MD Primary Care Provider + [phone] Dom Quiñonez MD Unavailable Rachelle Nava OCCUPATIONAL THERAPY ASSIST, [facility] Unavailable + [phone] Irais Naylor OCCUPATIONAL THERAPY ASSIST, HOME AID Unavailable + [phone] Lorri Leo OCCUPATIONAL THERAPY ASSIST, HOME AID Primary Care Provider [phone] Rebeka Trinidad MD Primary Care Provider + [phone] AhmetLorri Annetta OCCUPATIONAL THERAPY ASSIST, [facility] Primary Care Provider + [phone] Sharri Gaspar MD Unavailable Kalyan Tani B [facility] Primary Care Provider [phone] Amber Aldrich APRN, [facility] Unavailable Reason for Visit * Reason Comments Medication Refill Encounter Details Date Type Department Care Team (Late st Contact Info) Description 05/18/2022 Refill [facility] - Endocrinology - [place] [address] [place] [address] David Salmon MD #[address] [address] Medication Refill Social History Tobacco [...] 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 Unable to assess 05/01/2022 2:58 PM ORGANIC GARDENING TEACHER documented as of this encounter Miscellaneous Notes * Telephone Encounter - Yesi Leggett RN - 05/20/2022 8:26 AM CDT Requested Prescriptions Pending Prescriptions Disp Refills ??? Lancets (OneTouch Delica Plus [id number]) Misc [Pharmacy Med Name: ONE TOUCH DELICA PLUS 33G LANCETS] 200 Each Sig: USE TO TEST BLOOD GLUCOSE TWICE DAILY Next appt: 07/30/2022 documented in this encounter Plan of Treatment Upcoming Encounters Date Type Department Care Team (Late st Contact Info) Description 12/10/2024 2:40 PM CDT Telemedicine [facility] [address] [place] [address] 01/03/2025 11:30 AM CDT Office Visit [facility] - Neurology - [place] [address] [place] [address] Rachelle Nava APRN, VP LAB #[address] [place] [address] 02/11/2025 2:00 PM ORGANIC GARDENING TEACHER Telemedicine [facility] [address] [place] [address] 02/16/2025 2:00 PM ORGANIC GARDENING TEACHER Telemedicine [facility] [address] [place] [address] Alize Acosta, OCCUPATIONAL THERAPY ASSIST, HOME AID [address] [place] [address] 02/21/2025 3:45 PM ORGANIC GARDENING TEACHER Office Visit [facility] - Endocrinology - [place] [address] [place] [address] David Salmon MD #[address] [address] 03/04/2025 3:10 PM ORGANIC GARDENING TEACHER Lab [facility] - Primary Care - [place] [address] [place] [address] 03/04/2025 3:30 PM ORGANIC GARDENING TEACHER Office Visit [facility] - Primary Care - [place] [address] [place] [address] Tani Biggs, [facility] [address] [place] [address] 03/17/2025 1:30 PM ORGANIC GARDENING TEACHER [facility] [address] [place] [address] Melony Asif, PAC [address] [place] [address] Discharge Disposition: Discharged to home or Selfcare 03/25/2025 1:20 PM ORGANIC GARDENING TEACHER [facility] [address] [place] [address] Melony Asif Stacey, [facility] [address] [place] [address] Discharge Disposition: Discharged to home or Selfcare 04/25/2025 2:00 PM ORGANIC GARDENING TEACHER Office Visit [facility] - Cardiology - [place] [address] [place] [address] Laisha Griffin, DO [address] [address] 07/18/2025 1:00 PM CDT Office Visit [facility] - Pulmonology & Sleep Medicine - [place] [address] [place] [address] Dom Quiñonez MD #[address] [place] [address] documented as of this encounter Goals Goal [...] as recommended. Depression Depression Improving( 2:27 PM ORGANIC GARDENING TEACHER) No Breanne Saldana, SACK LIFTER Note: Goal/Objective: Decrease symptoms of depression associated [...] 19 04/18/2024 04/18/2024 04/18/2024 10:4 7 PM ORGANIC GARDENING TEACHER Respiratory Rule-Out 05/06/2024 05/06/2024 025 9:20 AM ORGANIC GARDENING TEACHER COVID - 19 05/06/2024 05/06/2024 05/06/2024 9:19 AM ORGANIC GARDENING TEACHER Assessment Noted Time PHQ-9 Depression Total Score: 24 022 3:31 PM ORGANIC GARDENING TEACHER documented as of this encounter Care Teams Cable Lacer Relationship Specialty Start Date End Date Jackeline Dimas APRN, HOME AID [address] [place] [address] PCP - General Advanced Practice Nurse 07/31/17 Emilia Tang MD [address] [place] [address] PCP - General Family Medicine 06/07/22 03/25/23 Rebeka Trinidad MD [address] [place] [address] PCP - General Family Medicine 03/26/23 03/29/24 Lorri Leo APRN, HOME AID [address] [place] [address] PCP - General Certified Nurse Practitioner 03/30/24 04/20/24 Rebeka Trinidad MD [address] [place] [address] PCP - General Family Medicine 04/21/24 04/21/24 Lorri Leo APRN, HOME AID [address] [place] [address] PCP - General Certified Nurse Practitioner 04/22/24 05/30/24 Tani Biggs PAC [address] [place] [address] PCP - General Physician Reed Polisher 05/31/24 Phil Jacobo MD #[address] [place] [address] Consulting Physician Neurology 03/07/21 Rajiv Mccormack, KELI [address] [place] [address] Nurse Practitioner Gastroenterology 03/07/21 Alize Acosta APRN, HOME AID [address] [place] [address] Virtual Advanced Care (VAC) TELECOM ENGINEER Advanced Practice Nurse 08/30/21 Dayo Chaney MD [facility] [place] [address] Microbiological Laboratory Technician Cardiovascular Disease - Cardiology 09/20/21 02/12/24 Juanita Mercado RN [place] Registered Nurse Cardiology 12/24/21 02/12/24 David Salmon MD #[address] [address] Consulting Physician Endocrinology 01/15/22 Maurilio Farley MD #[address] [address] Consulting Physician Colon and Rectal Surgery 09/20/22 PhysicianCandida MD [address] [place] [address] Family Medicine 01/25/22 03/18/23 Dom Quiñonez MD #[address] [place] [address] Consulting Physician Pulmonary Disease 11/19/21 Rachelle Nava, OCCUPATIONAL THERAPY ASSIST, VP [facility] [address] [place] [address] Nurse Practitioner Advanced Practice Nurse 07/19/22 Irais Naylor, OCCUPATIONAL THERAPY ASSIST, HOME AID #[address] [address] Nurse Practitioner Cardiology 06/27/23 07/29/24 Sharri Gaspar MD 2 [facility] [place] [address] [address] Consulting Physician Cardiology 04/26/24 Amber Aldrich APRN, HOME AID #[address] [place] [address] Nurse Practitioner Cardiology 07/30/24 documented as of this encounter
--- OUTSIDE RECORDS SUMMARY | 2024-12-03 01:27 | XMS_ITS | Encounter Summary ---
Author Organization [facility] Address [address] [place] [address] Phone Care Team Providers Care Mechanical Operator Name Role Phone Phil Jacobo MD Unavailable [phone] Rajiv Mccormack NP Unavailable Unavailable Alize Acosta CYLINDER BLOCK MECHANIC, DINING SERVICE SUPERVISOR Unavailable +[phone] Dayo Chaney MD Unavailable Juanita Hasuer RN Unavailable Unavaila David Martinez MD Unavailable Emilia Tang MD Primary Care Provider +[phone] Maurilio Farley MD Unavailable PhysicianCandida MD Unavailable Rebeka Trinidad MD Primary Care Provider + [phone] Dom Quiñonez MD Unavailable Rachelle Nava CYLINDER BLOCK MECHANIC, HEAVY LINE TECHNICIAN Unavailable + [phone] Irais Naylor CYLINDER BLOCK MECHANIC, DINING SERVICE SUPERVISOR Unavailable + [phone] Lorri Leo CYLINDER BLOCK MECHANIC, DINING SERVICE SUPERVISOR Primary Care Provider + [phone] Rebeka Trinidad MD Primary Care Provider + [phone] Lorri Leo CYLINDER BLOCK MECHANIC, DINING SERVICE SUPERVISOR Primary Care Provider + [phone] Sharri Gaspar MD Unavailable Tani Biggs Primary Care Provider + [phone] Amber Aldrich CYLINDER BLOCK MECHANIC, DINING SERVICE SUPERVISOR Unavailable Reason for Visit * Reason Comments Medication Refill Encounter Details Date Type Department Care Team (Late st Contact Info) Description 06/18/2022 Refill [facility] [address] [place] [address] Jackeline Dimas, CYLINDER BLOCK MECHANIC, DINING SERVICE SUPERVISOR [address] [place] [address] Medication Refill Social History Tobacco Use Types [...] 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 [...] CDT Telemedicine [facility] [address] [place] [address] 01/03/2025 11:30 AM CDT Office Visit [facility] - Neurology - [place] [address] [place] [address] Rachelle Nava APRN, HEAVY LINE TECHNICIAN [address] [place] [address] 02/11/2025 2:00 PM SAWMILL MANAGER Telemedicine [facility] [address] [place] [address] 02/16/2025 2:00 PM SAWMILL MANAGER Telemedicine [facility] [address] [place] [address] Alize Acosta, CYLINDER BLOCK MECHANIC, DINING SERVICE SUPERVISOR [address] [place] [address] 02/21/2025 3:45 PM SAWMILL MANAGER Office Visit [facility] Medical [facility] - Endocrinology - [place] [address] [place] [address] David Salmon MD #[address] [address] 03/04/2025 3:10 PM SAWMILL MANAGER Lab [facility] - Primary Care - [place] [address] [place] [address] 03/04/2025 3:30 PM SAWMILL MANAGER Office Visit [facility] - Primary Care - [place] [address] [place] [address] Tani Biggs, [facility] [address] [place] [address] 03/17/2025 1:30 PM SAWMILL MANAGER Lab [facility] Oncology Services [address] [place] [address] Melony Asif Stacey, [facility] [address] [place] [address] Discharge Disposition: Discharged to home or Selfcare 03/25/2025 1:20 PM SAWMILL MANAGER Office Visit [facility] Oncology Services [address] [place] [address] Melony Asif Stacey, [facility] [address] [place] [address] Discharge Disposition: Discharged to home or Selfcare 04/25/2025 2:00 PM SAWMILL MANAGER Office Visit [facility] - Cardiology - [place] [address] [place] [address] Laisha Griffin, DO [address] [address] 07/18/2025 1:00 PM CDT Office Visit [facility] - Pulmonology & Sleep Medicine - [place] [address] [place] [address] Dom Quiñonez MD [address] [place] [address] documented as of this encounter Goals Goal [...] as recommended. Depression Depression Improving( 2:27 PM SAWMILL MANAGER) No Breanne Saldana LCSW Note: Goal/Objective: [...] 19 04/18/2024 04/18/2024 04/18/2024 10:4 7 PM SAWMILL MANAGER Respiratory Rule-Out 05/06/2024 05/06/2024 025 9:20 AM SAWMILL MANAGER COVID - 19 05/06/2024 05/06/2024 05/06/2024 9:19 AM SAWMILL MANAGER Assessment Noted Time PHQ-9 Depression Total Score: 24 022 3:31 PM SAWMILL MANAGER documented as of this encounter Care Teams Mechanical Operator Relationship Specialty Start Date End Date Emilia Tang MD [address] [place] [address] PCP - General Family Medicine 06/07/22 03/25/23 Rebeka Trinidad MD [address] [place] [address] PCP - General Family Medicine 03/26/23 03/29/24 Lorri Leo APRN, DINING SERVICE SUPERVISOR [address] [place] [address] PCP - General Certified Nurse Practitioner 03/30/24 04/20/24 Rebeka Trinidad MD [address] [place] [address] PCP - General Family Medicine 04/21/24 04/21/24 Lorri Leo CYLINDER BLOCK MECHANIC, DINING SERVICE SUPERVISOR [address] [place] [address] PCP - General Certified Nurse Practitioner 04/22/24 05/30/24 Tani Biggs, PAC [address] [place] [address] PCP - General Physician Cad Intern 05/31/24 Phil Jacobo MD [address] [place] [address] Consulting Physician Neurology 03/07/21 Rajiv Mccormack, OIM CONSULTANT [address] [place] [address] Nurse Practitioner Gastroenterology 03/07/21 Alize Acosta, CYLINDER BLOCK MECHANIC, DINING SERVICE SUPERVISOR [address] [place], [place] [address] Virtual Advanced Care (VAC) SUPERVISOR PHOSPHATIC FERTILIZER Advanced Practice Nurse 08/30/21 Dayo Chaney MD [address] [place] [address] Chocolate Coater Cardiovascular Disease - Cardiology 09/20/21 02/12/24 Juanita Mercado RN [place] Registered Nurse Cardiology 12/24/21 02/12/24 David Salmon MD #[address] [address] Consulting Physician Endocrinology 01/15/22 Maurilio Farley MD #[address] [address] Consulting Physician Colon and Rectal Surgery 09/20/22 PhysicianCandida MD [address] [place] [address] Family Medicine 01/25/22 03/18/23 Dom Quiñonez MD #[address] [place] [address] Consulting Physician Pulmonary Disease 11/19/21 Rachelle Nava APRN, HEAVY LINE TECHNICIAN #[address] [facility] [address] Nurse Practitioner Advanced Practice Nurse 07/19/22 Irais Naylor, CYLINDER BLOCK MECHANIC, DINING SERVICE SUPERVISOR [address] [facility] [address] [place] [address] Nurse Practitioner Cardiology 06/27/23 07/29/24 Sharri Gaspar MD [address] [facility] [address] [place] [address] Consulting Physician Cardiology 04/26/24 Amber Aldrich, CYLINDER BLOCK MECHANIC, DINING SERVICE SUPERVISOR [address] [place] [address] Nurse Practitioner Cardiology 07/30/24 documented as of this encounter
--- OUTSIDE RECORDS SUMMARY | 2024-12-03 01:27 | XMS_ITS | Encounter Summary ---
Author Organization [facility] Address [address] [place] [address] Phone Care Team Providers Care Procedures Analyst Name Role Phone Jackeline Dimas RANGE MANAGEMENT SPECIALIST, POLICE DEPARTMENT SECRETARY Primary Care Provider Fiona Martinez SUBSTANCE ABUSE PREVENTION COORDINATOR Unavailable Unavailab Phil Ellis MD Unavailable [phone] Rajiv Mccormack NP Unavailable Unavailable Renita Quezada RN Unavailable Unavailable Alize Acosta RANGE MANAGEMENT SPECIALIST, POLICE DEPARTMENT SECRETARY Unavailable +[phone] Dayo Chaney MD Unavailable Juanita Hauser RN Unavailable Unavaila David Martinez MD Unavailable Emilia Tang MD Primary Care Provider +[phone] Maurilio Farley MD Unavailable Candida Turner MD Unavailable Rebeka Trinidad MD Primary Care Provider + [phone] Dom Quiñonez MD Unavailable Rachelle Nava RANGE MANAGEMENT SPECIALIST, PRODUCTION MATERIAL HANDLER Unavailable + [phone] Irais Naylor RANGE MANAGEMENT SPECIALIST, POLICE DEPARTMENT SECRETARY Unavailable + [phone] AhmetAngélicamando Littlejohn RANGE MANAGEMENT SPECIALIST, POLICE DEPARTMENT SECRETARY Primary Care Provider + [phone] Rebeka Trinidad MD Primary Care Provider + [phone] Lorri Leo RANGE MANAGEMENT SPECIALIST, POLICE DEPARTMENT SECRETARY Primary Care Provider [phone] Sharri Gaspar MD Unavailable Tani Biggs [facility] Primary Care Provider + [phone] Amber Aldrich RANGE MANAGEMENT SPECIALIST, POLICE DEPARTMENT SECRETARY Unavailable Reason for Visit * Reason Comments Medication Refill Encounter Details Date Type Department Care Team (Late Contact Info) Description 10/12/2020 Refill [facility] - Primary Care - [place] [address] [place] [address] Jackeline Dimas, RANGE MANAGEMENT SPECIALIST, [facility] [address] [place] [address] Medication Refill Social History [...] 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 [...] Description 12/10/2024 2:40 PM CDT [facility]medicine [facility] [address] [place] [address] 01/03/2025 11:30 AM CDT [facility] - [place] [address] [place] [address] Rachelle Nava, RANGE MANAGEMENT SPECIALIST, PRODUCTION MATERIAL HANDLER [address] [place] [address] 02/11/2025 2:00 PM PRICING LEAD Telemedicine [facility] [address] [place] [address] 02/16/2025 2:00 PM PRICING LEAD Telemedicine [facility] [address] [place] [address] Alize Acosta, RANGE MANAGEMENT SPECIALIST, POLICE DEPARTMENT SECRETARY [address] [place] [address] 02/21/2025 3:45 PM PRICING LEAD [facility] - [place] [address] [place] [address] David Salmon MD #[address] [address] 03/04/2025 3:10 PM PRICING LEAD Lab [facility] - [place] [address] [place] [address] 03/04/2025 3:30 PM PRICING LEAD [facility] - [place] [address] [place] [address] Tani Biggs PAC [address] [place] [address] 03/17/2025 1:30 PM PRICING LEAD [facility] [address] [place] [address] Melony Asif August, PAC [address] [place] [address] Discharge Disposition: Discharged to home or Selfcare 03/25/2025 1:20 PM PRICING LEAD [facility] [address] [place] [address] AsifMelony August, PAC [address] [place] [address] Discharge Disposition: Discharged to home or Selfcare 04/25/2025 2:00 PM PRICING LEAD Office Visit [facility] Medical [facility] - Cardiology - [place] [address] [place] [address] Laisha Griffin, DO [address] [address] 07/18/2025 1:00 PM CDT Office Visit [facility] - Pulmonology & Sleep Medicine [facility] [address] [place] [address] Dom Quiñonez MD [address] [place] [address] documented as of this encounter Visit Diagnoses Not on filedocumented in this encounter Additional Health Concerns Infection Onset Date Last Indicated Resolved Time COVID - 19 01/08/2021 01/08/2021 01/28/2021 12:1 6 AM PRICING LEAD COVID - 19 03/12/2021 03/12/2021 04/01/2021 12:1 6 AM PRICING LEAD COVID - 19 12/15/2021 12/15/2021 12/15/2021 7:26 PM CDT COVID - 19 Confirmed 12/15/2021 12/15/2021 022 12:16 AM CDT COVID - 04/18/2024 04/18/2024 04/18/2024 10:4 7 PM PRICING LEAD Respiratory Rule-Out 05/06/2024 05/06/2024 025 9:20 AM PRICING LEAD COVID - 19 05/06/2024 05/06/2024 05/06/2024 9:19 AM PRICING LEAD Assessment Noted Time PHQ-9 Depression Total Score: 0 09/01/19 20 11:58 AM CDT documented as of this encounter Care Teams Procedures Analyst Relationship Specialty Start Date End Date Jackeline Dimas APRN, POLICE DEPARTMENT SECRETARY [address] [place] [address] PCP - General Advanced Practice Nurse 07/31/17 Emilia Tang MD [address] [place] [address] PCP - General Family Medicine 06/07/22 03/25/23 Rebeka Trinidad MD [address] [place] [address] PCP - General Family Medicine 03/26/23 03/29/24 Lorri Leo APRN, POLICE DEPARTMENT SECRETARY [address] [place] [address] PCP - General Certified Nurse Practitioner 03/30/24 04/20/24 Rebeka Trinidad MD [address] [place] [address] PCP - General Family Medicine 04/21/24 04/21/24 Lorri Leo APRN, POLICE DEPARTMENT SECRETARY [address] [place] [address] PCP - General Certified Nurse Practitioner 04/22/24 05/30/24 Tani Biggs, ESTRELLITA [address] [place] [address] PCP - General Physician Recording Studio Intern 05/31/24 Fiona Martinez, MAR[place] Global Process Owner 03/01/21 08/23/21 Phil Jacobo MD #[address] [place] [address] Consulting Physician Neurology 03/07/21 Rajiv Mccormack, KELI [address] [place] [address] Nurse Practitioner Gastroenterology 03/07/21 Renita Quezada RN [place] Global Process Owner 05/09/21 08/23/21 Alize Acosta, RANGE MANAGEMENT SPECIALIST, POLICE DEPARTMENT SECRETARY [address] [place] [address] Virtual Advanced Care (VAC) GROCERY CLERK SELLING Advanced Practice Nurse 08/30/21 Dayo Chaney MD [address] [place] [address] Train Attendant Cardiovascular Disease - Cardiology 09/20/21 02/12/24 Juanita Mercado, [place] Registered Nurse Cardiology 12/24/21 02/12/24 David Salmon MD #[address] [address] Consulting Physician Endocrinology 01/15/22 Maurilio Farley MD #[address] [address] Consulting Physician Colon and Rectal Surgery 09/20/22 Physician, Candida Davis MD [address] [place] [address] Family Medicine 01/25/22 03/18/23 Dom Quiñonez MD #[address] [place] [address] Consulting Physician Pulmonary Disease 11/19/21 Rachelle Nava, RANGE MANAGEMENT SPECIALIST, PRODUCTION MATERIAL HANDLER [address] [place] [address] Nurse Practitioner Advanced Practice Nurse 07/19/22 Irais Naylor, RANGE MANAGEMENT SPECIALIST, POLICE DEPARTMENT SECRETARY #[address] [address] Nurse Practitioner Cardiology 06/27/23 07/29/24 Sharri Gaspar MD [address] [address] Consulting Physician Cardiology 04/26/24 Amber Aldrich APRN, POLICE DEPARTMENT SECRETARY [address] [place] [address] Nurse Practitioner Cardiology 07/30/24 documented as of this encounter
--- OUTSIDE RECORDS SUMMARY | 2024-12-03 01:27 | XMS_ITS | Encounter Summary ---
Author Organization [facility] Address [address] [place] [address] Phone Care Team Providers Care [employer] Special Education Teacher Name Role Phone Jackeline Dimas FIELD MARKETING DIRECTOR, ELECTRICAL PROSPECTING OPERATOR Primary Care Provider Fiona Martinez INDUSTRIAL RELATIONS COMMISSIONER Unavailable Unavailab Phil Ellis MD Unavailable [phone] Rajiv Mccormack NP Unavailable Unavailable Renita Quezada RN Unavailable Unavailable Alize Acosta FIELD MARKETING DIRECTOR, ELECTRICAL PROSPECTING OPERATOR Unavailable +[phone] Dayo Chaney MD Unavailable Juanita Hauser RN Unavailable Unavaila David Martinez MD Unavailable Emilia Tang MD Primary Care Provider [phone] Maurilio Farley MD Unavailable Candida Turner MD Unavailable Rebeka Trinidad MD Primary Care Provider + [phone] Dom Quiñonez MD Unavailable Rachelle Nava FIELD MARKETING DIRECTOR, LAUNDRY OPERATOR WASH ROOM Unavailable + [phone] Irais Naylor FIELD MARKETING DIRECTOR, ELECTRICAL PROSPECTING OPERATOR Unavailable + [phone] AhmetAngélicamando Littlejohn FIELD MARKETING DIRECTOR, ELECTRICAL PROSPECTING OPERATOR Primary Care Provider + [phone] Rebeka Trinidad MD Primary Care Provider + [phone] Lorri Leo FIELD MARKETING DIRECTOR, ELECTRICAL PROSPECTING OPERATOR Primary Care Provider [phone] Sharri Gaspar MD Unavailable Tani Biggs [facility] Primary Care Provider + [phone] Amber Aldrich FIELD MARKETING DIRECTOR, ELECTRICAL PROSPECTING OPERATOR Unavailable Reason for Visit * Reason Comments Medication Refill Encounter Details Date Type Department Care Team (Late Contact Info) Description 06/15/2020 Refill [facility] - Primary Care - [place] [address] [place] [address] Jackeline Dimas, FIELD MARKETING DIRECTOR, [facility] [address] [place] [address] Medication Refill Social History Tobacco [...] 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 [...] Description 12/10/2024 2:40 PM CDT [facility]icine [facility] [address] [place] [address] 01/03/2025 11:30 AM CDT [facility] [place] [address] [place] [address] Rachelle Nava, FIELD MARKETING DIRECTOR, LAUNDRY OPERATOR WASH ROOM [address] [place] [address] 02/11/2025 2:00 PM DIETIST Telemedicine [facility] [address] [place] [address] 02/16/2025 2:00 PM DIETIST Telemedicine [facility] [address] [place] [address] Alize Acosta, FIELD MARKETING DIRECTOR, ELECTRICAL PROSPECTING OPERATOR [address] [place] [address] 02/21/2025 3:45 PM DIETIST [facility] - [place] [address] [place] [address] David Salmon MD #[address] [address] 03/04/2025 3:10 PM DIETIST [facility] [place] [address] [place] [address] 03/04/2025 3:30 PM DIETIST [facility] [place] [address] [place] [address] Tani Biggs PAC [address] [place] [address] 03/17/2025 1:30 PM DIETIST [facility] [address] [place] [address] Melony Asif August, PAC [address] [place] [address] Discharge Disposition: Discharged to home or Selfcare 03/25/2025 1:20 PM DIETIST [facility] [address] [place] [address] AsifMelony August, PAC [address] [place] [address] Discharge Disposition: Discharged to home or Selfcare 04/25/2025 2:00 PM DIETIST Office Visit [facility] Medical [facility] - Cardiology - [place] [address] [place] [address] Laisha Griffin, DO [address] [address] 07/18/2025 1:00 PM CDT Office Visit [facility] - Pulmonology & Sleep Medicine [facility] [address] [place] [address] Dom Quiñonez MD [address] [place] [address] documented as of this encounter Visit Diagnoses Not on filedocumented in this encounter Additional Health Concerns Infection Onset Date Last Indicated Resolved Time COVID - 19 01/08/2021 01/08/2021 01/28/2021 12:1 6 AM DIETIST COVID - 19 03/12/2021 03/12/2021 04/01/2021 12:1 6 AM DIETIST COVID - 19 12/15/2021 12/15/2021 12/15/2021 7:26 PM CDT COVID - 19 Confirmed 12/15/2021 12/15/2021 022 12:16 AM CDT COVID - 04/18/2024 04/18/2024 04/18/2024 10:4 7 PM DIETIST Respiratory Rule-Out 05/06/2024 05/06/2024 025 9:20 AM DIETIST COVID - 19 05/06/2024 05/06/2024 05/06/2024 9:19 AM DIETIST Assessment Noted Time PHQ-9 Depression Total Score: 0 09/01/19 20 11:58 AM CDT documented as of this encounter Care Teams [employer] Special Education Teacher Relationship Specialty Start Date End Date Jackeline Dimas APRN, ELECTRICAL PROSPECTING OPERATOR [address] [place] [address] PCP - General Advanced Practice Nurse 07/31/17 Emilia Tang MD [address] [place] [address] PCP - General Family Medicine 06/07/22 03/25/23 Rebeka Trinidad MD [address] [place] [address] PCP - General Family Medicine 03/26/23 03/29/24 Lorri Leo APRN, ELECTRICAL PROSPECTING OPERATOR [address] [place] [address] PCP - General Certified Nurse Practitioner 03/30/24 04/20/24 Rebeka Trinidad MD [address] [place] [address] PCP - General Family Medicine 04/21/24 04/21/24 Lorri Leo APRN, ELECTRICAL PROSPECTING OPERATOR [address] [place] [address] PCP - General Certified Nurse Practitioner 04/22/24 05/30/24 Tani Biggs, ESTRELLITA [address] [place] [address] PCP - General Physician Proced Tech 05/31/24 Fiona Martinez, [place] Laundry Folder 03/01/21 08/23/21 Phil Jacobo MD [address] [place] [address] Consulting Physician Neurology 03/07/21 Rajiv Mccormack, KELI [address] [place] [address] Nurse Practitioner Gastroenterology 03/07/21 Renita Quezada RN [place] Laundry Folder 05/09/21 08/23/21 Alize Acosta, FIELD MARKETING DIRECTOR, ELECTRICAL PROSPECTING OPERATOR [address] [place] [address] Virtual Advanced Care (VAC) MICA MACHINE OPERATOR Advanced Practice Nurse 08/30/21 Dayo Chaney MD [address] [place] [address] [employer]ward[employer]Steward[employer] Cardiovascular Disease - Cardiology 09/20/21 02/12/24 Juanita Mercado, [place] Registered Nurse Cardiology 12/24/21 02/12/24 David Salmon MD #[address] [address] Consulting Physician Endocrinology 01/15/22 Maurilio Farley MD #[address] [address] Consulting Physician Colon and Rectal Surgery 09/20/22 Physician, Candida Davis MD [address] [place] [address] Family Medicine 01/25/22 03/18/23 Dom Quiñonez MD #[address] [place] [address] Consulting Physician Pulmonary Disease 11/19/21 Rachelle Nava, FIELD MARKETING DIRECTOR, LAUNDRY OPERATOR WASH ROOM [address] [place] [address] Nurse Practitioner Advanced Practice Nurse 07/19/22 Irais Naylor, FIELD MARKETING DIRECTOR, ELECTRICAL PROSPECTING OPERATOR #[address] [address] Nurse Practitioner Cardiology 06/27/23 07/29/24 Sharri Gaspar MD [address] [address] Consulting Physician Cardiology 04/26/24 Amber Aldrich APRN, ELECTRICAL PROSPECTING OPERATOR #[address] [place] [address] Nurse Practitioner Cardiology 07/30/24 documented as of this encounter
--- OUTSIDE RECORDS SUMMARY | 2024-12-03 01:27 | XMS_ITS | Encounter Summary ---
Author Organization [facility] Address [address] [place] [address] Phone Care Team Providers Care Claim Processing Specialist Name Role Phone Phil Jacobo MD Unavailable [phone] Rajiv Mccormack NP Unavailable Unavailable Alize Acosta APRN, TELEVISION AUDIO ENGINEER Unavailable [phone] Dayo Chaney MD Unavailable Juanita Hauser RN Unavailable UnavailDavid Alexandre MD Unavailable Maurilio Farley MD Unavailable Rebeka Trinidad MD Primary Care Provider + [phone] Dom Quiñonez MD Unavailable Rachelle Nava CHIEF CONTROLLER TOWER, VEGETABLE I FARMWORKER Unavailable + [phone] Irais Naylor CHIEF CONTROLLER TOWER, TELEVISION AUDIO ENGINEER Unavailable + [phone] Lorri Leo CHIEF CONTROLLER TOWER, TELEVISION AUDIO ENGINEER Primary Care Provider + [phone] Rebeka Trinidad MD Primary Care Provider + [phone] Lorri Leo CHIEF CONTROLLER TOWER, TELEVISION AUDIO ENGINEER Primary Care Provider + [phone] Sharri Gaspar MD Unavailable Tani Biggs PAC Primary Care Provider + [phone] Amber Aldrich APRN, TELEVISION AUDIO ENGINEER Unavailable Reason for Visit * Reason Comments Medication Refill Encounter Details Date Type Department Care Team (Late st Contact Info) Description 06/23/2023 Refill [facility] [address] [place] [address] Belkis Mcnair APRN, TELEVISION AUDIO ENGINEER [address] [place] [address] Medication Refill Social History Tobacco Use Types Packs/Day Years Used Date Smoking Tobacco: Former Cigarettes 1 37.1 1 985 - 04/12/2021 Smokeless Tobacco: Never Alcohol Use Standard Drinks/Week Comments Not Currently 0 (1 standard drink = 0.6 oz pur e alcohol) last drank 2020 [facility] Utilities Answer Date Recorded In the past 12 months has [employer] electric, gas, oil, or water [employer] threatened to shut off services in your home? No 03/24/2023 Social Connection and Isolation Panel Answer Date Recorded In a typical week, how many times do you talk on the phone with family, friends, or neighbors? Once a week 03/24/2023 How often do you get togethe r with friends or relatives? Never 03/24/2023 How often do you attend [facility] or worship services? More than 4 times per year 03/24/2023 Do you belong to any clubs o r organizations such as gnosticist groups, unions, fraternal or athletic groups, or [...] Score - Questions 1-9 18 10/10 [facility] - Occupational Stress Questionnaire Answer Date [...] in a halfway (including now)? 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..] Advanced Care 08/25/23 Appointment Alize Acosta APRN, TELEVISION AUDIO ENGINEER [facility] 09/01/23 Appointment ONCALL [...] CDT Telemedicine [facility] [address] [place] [address] [phone] 01/03/2025 11:30 AM CDT Office Visit [facility] - Neurology - [place] [address] [place] [address] Rachelle Nava APRN, VEGETABLE I FARMWORKER [address] [place] [address] 02/11/2025 2:00 PM CORN GRINDER Telemedicine [facility] [address] [place] [address] 02/16/2025 2:00 PM CORN GRINDER Telemedicine [facility] [address] [place] [address] Alize Acosta APRN, TELEVISION AUDIO ENGINEER [address] [place] [address] 02/21/2025 3:45 PM CORN GRINDER Office Visit [facility] - Endocrinology - [place] [address]2 [place] [address] David Salmon MD #2 [facility] [address] [place] [address] 03/04/2025 3:10 PM CORN GRINDER [facility] [place] [address] [place] [address] 03/04/2025 3:30 PM CORN GRINDER [facility] [place] [address] [place] [address] Tani Biggs, PAC [address] [place] [address] 03/17/2025 1:30 PM CORN GRINDER [facility] [address] [place] [address] Melony Asif, PAC [address] [place] [address] Discharge Disposition: Discharged to home or Selfcare 03/25/2025 1:20 PM CORN GRINDER [facility] [address] [place] [address] Melony Asif, PAC [address] [place] [address] Discharge Disposition: Discharged to home or Selfcare 04/25/2025 2:00 PM CORN GRINDER [facility] [place] [address] [place] [phone] Laisha Griffin, DO [address] [address] 07/18/2025 1:00 PM CDT Office Visit [facility] - Pulmonology & Sleep Medicine - [place] [address] [place] [address] Dom Quiñonez MD [address] [place] [address] documented as of this encounter Goals Goal Patient Goal Type Associated Problems Recent Progress Patient-Stated? Author ACTIVITY Activity No change(08/08 2:42 PM CDT) Yes Maritza Vanegas, RN Note: Bonny will walk five days a week. Goal Reviewed with: Bonny Readiness to change: Department associated with goal: [facility] ADV[facility] CARE Steps to achieve goal: Walking 5 days a week I want to be able to be around people and feel less depressed. Behavioral Health Worsening(0 09/22/2023 3:12 PM CDT) Yes Hilda Tinajero [facility] Note: Goal/Objective: Decrease symptoms of depression and anxiety. Anticipated Time Frame for Goal Completion: 3 months Goal Reviewed with: patient Readiness to change: Thinking about making a change Department associated with goal: [facility] BEHAVIOR[facility] HE[facility] SERVICES Steps to achieve [...] diet Depression Depression Improving(0 03/15/2022 2:27 PM CORN GRINDER) No Breanne Saldana LCSW Note: Goal/Objective: Decrease [...] 19 04/18/2024 04/18/2024 04/18/2024 10:4 7 PM CORN GRINDER Respiratory Rule-Out 05/06/2024 05/06/2024 025 9:20 AM CORN GRINDER COVID - 19 05/06/2024 05/06/2024 05/06/2024 9:19 AM CORN GRINDER Assessment Noted Time PHQ-9 Depression Total Score: 18 023 9:24 AM CDT documented as of this encounter Care Teams Claim Processing Specialist Relationship Specialty Start Date End Date Rebeka Trinidad MD [address] [place] [address] PCP - General Family Medicine 03/26/23 03/29/24 Lorri Leo, CHIEF CONTROLLER TOWER, TELEVISION AUDIO ENGINEER [address] [address] PCP - General Certified Nurse Practitioner 03/30/24 04/20/24 Rebeka Trinidad MD [address] [place] [address] PCP - General Family Medicine 04/21/24 04/21/24 Lorri eLo APRN, TELEVISION AUDIO ENGINEER [address] [place], [place] [id number] PCP - General Certified Nurse Practitioner 04/22/24 05/30/24 Tani Biggs, [facility] [address] [place] [address] PCP - General Physician Yeast Washer 05/31/24 Phil Jacobo MD [address] [place] [address] Consulting Physician Neurology 03/07/21 Rajiv Mccormack, KELI [address] [place] [address] Nurse Practitioner Gastroenterology 03/07/21 Alize Acosta, RUSSELL, TELEVISION AUDIO ENGINEER [address] [place] [address] [facility] (VAC) RESIDENTIAL DIRECT SUPPORT PROFESSIONAL Advanced Practice Nurse 08/30/21 Dayo Chaney MD [address] [place] [address] Nutrition Intern Cardiovascular Disease - Cardiology 09/20/21 02/12/24 Juanita Mercado RN [place] Registered Nurse Cardiology 12/24/21 02/12/24 David Salmon MD [address] [facility] [facility] [address] [place] [address] Consulting Physician Endocrinology 01/15/22 Maurilio Farley MD #2 [facility] [address] [place] [address] Consulting Physician Colon and Rectal Surgery 09/20/22 Dom Quiñonez MD [address] [facility] [place] [address] Consulting Physician Pulmonary Disease 11/19/21 Rachelle Nava, CHIEF CONTROLLER TOWER, VEGETABLE I FARMWORKER [address] [place] [address] Nurse Practitioner Advanced Practice Nurse 07/19/22 Irais Naylor, CHIEF CONTROLLER TOWER, TELEVISION AUDIO ENGINEER #2 [facility] [address] [place] [address] Nurse Practitioner Cardiology 06/27/23 07/29/24 Sharri Gaspar MD [address] [address] Consulting Physician Cardiology 04/26/24 Amber Aldrich, CHIEF CONTROLLER TOWER, TELEVISION AUDIO ENGINEER [address] [place] [address] Nurse Practitioner Cardiology 07/30/24 documented as of this encounter
--- OUTSIDE RECORDS SUMMARY | 2024-12-03 01:27 | XMS_ITS | Encounter Summary ---
Author Organization [facility] Address [address] [place] [address] Phone Care Team Providers Care Gummed Tape Press Operator Name Role Phone Phil Jacobo MD Unavailable [phone] Rajiv Mccormack NP Unavailable Unavailable Alize Acosta APRN, COMMAND AND CONTROL Unavailable [phone] Dayo Chaney MD Unavailable Juanita Hauser RN Unavailable UnavailDavid Alexandre MD Unavailable Maurilio Farley MD Unavailable Rebeka Trinidad MD Primary Care Provider + [phone] Dom Quiñonez MD Unavailable Rachelle Nava JOINT MACHINE OPERATOR, DIRT SUPERVISOR Unavailable + [phone] Irais Naylor JOINT MACHINE OPERATOR, COMMAND AND CONTROL Unavailable + [phone] Lorri Leo JOINT MACHINE OPERATOR, COMMAND AND CONTROL Primary Care Provider + [phone] Rebeka Trinidad MD Primary Care Provider + [phone] Lorri Leo JOINT MACHINE OPERATOR, COMMAND AND CONTROL Primary Care Provider + [phone] Sharri Gaspar MD Unavailable Tani Biggs PAC Primary Care Provider [phone] Amber Aldrich APRN, COMMAND AND CONTROL Unavailable Reason for Visit * Reason Comments Medication Refill Encounter Details Date Type Department Care Team (Late st Contact Info) Description 04/18/2023 Refill [facility] - [facility] [address] [place] [address] Rachelle Nava, RUSSELL, DIRT SUPERVISOR [address] [place] [address] Medication Refill Social History Tobacco Use Types Packs/Day Years Used Date Smoking Tobacco: Former Cigarettes 1 37.1 1 985 - 04/12/2021 Smokeless Tobacco: Never Alcohol Use Standard Drinks/Week Comments Not Currently 0 (1 standard drink = 0.6 oz pur e alcohol) last drank 2020 [facility] Utilities Answer Date Recorded In the past 12 months has [employer] electric, gas, oil, or water company threatened [...] Never 03/24/2023 How often do you attend [facility] or alevism services? 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 file Not [...] Dept 03/26/23 Office Visit Rebeka Trinidad MD [facility] 03/19/23 Office Visit Rachelle Nava APRN, CNS [facility] Neurology [facility] 02/06/23 Office Visit Emilia Tang MD [facility] 11/06/22 Office Visit Emilia Tang MD [facility] 10/10/22 Office Visit Emilia Tang MD [facility] 09/16/22 Office Visit Rachelle Nava APRN, CNS [facility] Neurology [facility] 09/06/22 Office Visit Emilia Tang MD [facility] 07/19/22 Office Visit Rachelle Nava APRN, CNS [facility] 06/07/22 Office Visit Emilia Tang MD [facility] Showing recent visits within past 365 days and meeting all other requirements Future Appointments Date Type Provider Dept 06/19/23 Appointment Phil Jacobo MD [facility] Showing future appointments within next 90 days and meeting all other requirements ENTRY REPRESENTATIVE documented in this encounter Plan of Treatment Upcoming Encounters Date Type Department Care Team (Late st Contact Info) Description 12/10/2024 2:40 PM CDT Telemedicine [facility] [address] [place] [address] 01/03/2025 11:30 AM CDT Office Visit [facility] - Neurology - [place] [address] [place] [address] Rachelle Nava, JOINT MACHINE OPERATOR, DIRT SUPERVISOR [address] [place] [address] 02/11/2025 2:00 PM DATA ENTRY REPRESENTATIVE Telemedicine [facility] [address] [place] [address] 02/16/2025 2:00 PM DATA ENTRY REPRESENTATIVE Telemedicine [facility] [address] [place] [address] Alize Acosta, JOINT MACHINE OPERATOR, COMMAND AND CONTROL [address] [place] [address] 02/21/2025 3:45 PM DATA ENTRY REPRESENTATIVE Office Visit [facility] - Endocrinology - [place] [address] [place] [address] David Salmon MD #[address] [address] 03/04/2025 3:10 PM DATA ENTRY REPRESENTATIVE [facility] - [place] [place] [address] 03/04/2025 3:30 PM DATA ENTRY REPRESENTATIVE Office Visit [facility] - Primary Care - [place] [address] [place] [address] Tani Biggs, PAC [address] [place] [address] 03/17/2025 1:30 PM DATA ENTRY REPRESENTATIVE [facility] [address] [place] [address] Melony Asif, PAC [address] [place] [address] Discharge Disposition: Discharged to home or Selfcare 03/25/2025 1:20 PM DATA ENTRY REPRESENTATIVE [facility] [address] [place] [address] Melony Asif Stacey, PAC [address] [place] [address] Discharge Disposition: Discharged to home or Selfcare 04/25/2025 2:00 PM DATA ENTRY REPRESENTATIVE Office Visit [facility] - Cardiology - [place] [address] [place] [address] Laisha Griffin, DO [address] [address] 07/18/2025 1:00 PM CDT Office Visit [facility] - Pulmonology & Sleep Medicine - [place] [address] [place] [address] Dom Quiñonez MD [address] [place] [address] documented as of this encounter Goals Goal Patient Goal Type Associated Problems Recent Progress Patient-Stated? Author ACTIVITY Activity No change(08/08 2:42 PM CDT) Yes Maritza Vanegas, RN Note: Bonny will walk five days a week. Goal Reviewed with: Bonny Readiness to change: Department associated with goal: [facility] CARE Steps to achieve goal: Walking 5 days a week I want to be able to be around people and feel less depressed. Behavioral Health Worsening(0 09/22/2023 3:12 PM CDT) Yes Hilda Tinajero [facility] Note: Goal/Objective: Decrease symptoms of depression and anxiety. Anticipated Time Frame for Goal Completion: 3 months Goal Reviewed with: patient Readiness to change: Thinking about making a change Department associated with goal: [facility] BE[facility]AVIORAL HEALTH SERVICES Steps to [...] diet Depression Depression Improving(0 03/15/2022 2:27 PM DATA ENTRY REPRESENTATIVE) No Breanne Saldana, BUILDING MECHANIC Note: Goal/Objective: Decrease symptoms of depression [...] 19 04/18/2024 04/18/2024 04/18/2024 10:4 7 PM DATA ENTRY REPRESENTATIVE Respiratory Rule-Out 05/06/2024 05/06/2024 025 9:20 AM DATA ENTRY REPRESENTATIVE COVID - 05/06/2024 05/06/2024 05/06/2024 9:19 AM DATA ENTRY REPRESENTATIVE Assessment Noted Time PHQ-9 Depression Total Score: 18 023 9:24 AM CDT documented as of this encounter Care Teams Gummed Tape Press Operator Relationship Specialty Start Date End Date Rebeka Trinidad MD [address] [place] [address] PCP - General Family Medicine 03/26/23 03/29/24 Lorri Leo APRN, COMMAND AND CONTROL [address] [place] [address] PCP - General Certified Nurse Practitioner 03/30/24 04/20/24 Rebeka Trinidad MD [address] [place] [address] PCP - General Family Medicine 04/21/24 04/21/24 Lorri Leo APRN, COMMAND AND CONTROL [address] [place] [id number] PCP - General Certified Nurse Practitioner 04/22/24 05/30/24 Tani Biggs, PAC [address] [place] [address] PCP - General Physician Tugboat Dispatcher 05/31/24 Phil Jacobo MD [address] [place] [address] Consulting Physician Neurology 03/07/21 Rajiv Mccormack, KELI [address] [place] [address] Nurse Practitioner Gastroenterology 03/07/21 Alize Acosta APRN, COMMAND AND CONTROL [address] [place] [address] Virtual [facility] (VAC) FRONT OFFICE DEVELOPER Advanced Practice Nurse 08/30/21 Dayo Chaney MD [facility] [place] [address] Dock Guard Cardiovascular Disease - Cardiology 09/20/21 02/12/24 Juanita Mercado RN [place] Registered Nurse Cardiology 12/24/21 02/12/24 David Salmon MD #[address] [phone] Consulting Physician Endocrinology 01/15/22 Maurilio Farley MD #[address] [address] Consulting Physician Colon and Rectal Surgery 09/20/22 Dom Quiñonez MD #[address] [place] [address] Consulting Physician Pulmonary Disease 11/19/21 Rachelle Nava, JOINT MACHINE OPERATOR, DIRT SUPERVISOR [address] [place] [address] Nurse Practitioner Advanced Practice Nurse 07/19/22 Irais Naylor, JOINT MACHINE OPERATOR, COMMAND AND CONTROL #2 [facility] [address] [place] [address] Nurse Practitioner Cardiology 06/27/23 07/29/24 Sharri Gaspar MD 2 [facility] [place] [facility] [address] [place] [address] Consulting Physician Cardiology 04/26/24 Amber Aldrich, JOINT MACHINE OPERATOR, COMMAND AND CONTROL [address] [place] [address] Nurse Practitioner Cardiology 07/30/24 documented as of this encounter
--- OUTSIDE RECORDS SUMMARY | 2024-12-03 01:27 | XMS_ITS | Encounter Summary ---
Author Organization [facility] Address [address] [place] [address] Phone Care Team Providers Care Catering Staff Member Name Role Phone Jackeline Dimas TECHNICAL TESTING ENGINEER, SUPPLIER MANAGER Primary Care Provider Phil Jacobo MD Unavailable +[phone] Rajiv Mccormack NP Unavailable Unavailable Alize Acosta TECHNICAL TESTING ENGINEER, SUPPLIER MANAGER Unavailable +[phone] Dayo Chaney MD Unavailable Juanita Hauser RN Unavailable UnavailDavid Alexandre MD Unavailable Emilia Tang MD Primary Care Provider [phone] Maurilio Farley MD Unavailable Physician, Candida Davis MD Unavailable Rebeka Trinidad MD Primary Care Provider + [phone] Dom Quiñonez MD Unavailable Rachelle Nava TECHNICAL TESTING ENGINEER, KINESIOLOGY PROFESSOR Unavailable + [phone] Irais Naylor TECHNICAL TESTING ENGINEER, SUPPLIER MANAGER Unavailable + [phone] Lorri Leo TECHNICAL TESTING ENGINEER, SUPPLIER MANAGER Primary Care Provider [phone] Rebeka Trinidad MD Primary Care Provider + [phone] Lorri Leo TECHNICAL TESTING ENGINEER, SUPPLIER MANAGER Primary Care Provider + [phone] Sharri Gaspar MD Unavailable Tani Biggs [facility] Primary Care Provider + [phone] Amber Aldrich TECHNICAL TESTING ENGINEER, SUPPLIER MANAGER Unavailable Reason for Visit * Reason Comments Medication Refill Encounter Details Date Type Department Care Team (Late st Contact Info) Description 05/22/2022 Refill [facility] [address] [place] [address] Jackeline Dimas, TECHNICAL TESTING ENGINEER, SUPPLIER MANAGER [address] [place] [address] Medication Refill Social History Tobacco [...] 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 Unable to assess 05/01/2022 2:58 PM MENTAL HEALTH PROGRAM DIRECTOR documented as of this encounter Miscellaneous Notes [...] PM CDT Telemedicine [facility] [address] [place] [address] 01/03/2025 11:30 AM CDT [facility] [place] [address] [place] [address] Rachelle Nava, TECHNICAL TESTING ENGINEER, KINESIOLOGY PROFESSOR #2 [place] [address] 02/11/2025 2:00 PM MENTAL HEALTH PROGRAM DIRECTOR Telemedicine [facility] [address] [place] [address] 02/16/2025 2:00 PM MENTAL HEALTH PROGRAM DIRECTOR Telemedicine [facility] [address] [place] [address] Alize Acosat, TECHNICAL TESTING ENGINEER, SUPPLIER MANAGER [address] [place] [address] 02/21/2025 3:45 PM MENTAL HEALTH PROGRAM DIRECTOR Office Visit [facility] - Endocrinology - [place] [address] [place] [address] David Salmon MD #[address] [address] 03/04/2025 3:10 PM MENTAL HEALTH PROGRAM DIRECTOR Lab [facility] - Primary Care - [place] [address] [place] [address] 03/04/2025 3:30 PM MENTAL HEALTH PROGRAM DIRECTOR Office Visit [facility] - Primary Care - [place] [address] [place] [address] Tani Biggs PAC [address] [place] [address] 03/17/2025 1:30 PM MENTAL HEALTH PROGRAM DIRECTOR [facility] [address] [place] [address] Melony Asif August, PAC [address] [place] [address] Discharge Disposition: Discharged to home or Selfcare 03/25/2025 1:20 PM MENTAL HEALTH PROGRAM DIRECTOR Office Visit [facility] Oncology Services [address] [place] [address] Melony Asif Stacey, PAC [address] [place] [address] Discharge Disposition: Discharged to home or Selfcare 04/25/2025 2:00 PM MENTAL HEALTH PROGRAM DIRECTOR Office Visit [facility] - Cardiology - [place] [address] [place] [address] Laisha Griffin, DO [address] [address] 07/18/2025 1:00 PM CDT Office Visit [facility] - Pulmonology & Sleep Medicine [facility] #[address] [place] [address] Dom Quiñonez MD #2 [place] [address] documented as of this encounter Goals Goal [...] as recommended. Depression Depression Improving( 2:27 PM MENTAL HEALTH PROGRAM DIRECTOR) No Breanne Saldana, SANDEEP Note: Goal/Objective: Decrease [...] 19 04/18/2024 04/18/2024 04/18/2024 10:4 7 PM MENTAL HEALTH PROGRAM DIRECTOR Respiratory Rule-Out 05/06/2024 05/06/2024 025 9:20 AM MENTAL HEALTH PROGRAM DIRECTOR COVID - 19 05/06/2024 05/06/2024 05/06/2024 9:19 AM MENTAL HEALTH PROGRAM DIRECTOR Assessment Noted Time PHQ-9 Depression Total Score: 24 022 3:31 PM MENTAL HEALTH PROGRAM DIRECTOR documented as of this encounter Care Teams Catering Staff Member Relationship Specialty Start Date End Date Jackeline Dimas, TECHNICAL TESTING ENGINEER, SUPPLIER MANAGER [address] [place] [address] PCP - General Advanced Practice Nurse 07/31/17 Emilia Tang MD [address] [place] [address] PCP - General Family Medicine 06/07/22 03/25/23 Rebeka Trinidad MD [address] [place] [address] PCP - General Family Medicine 03/26/23 03/29/24 Lorri Leo TECHNICAL TESTING ENGINEER, SUPPLIER MANAGER [address] [place] [address] PCP - General Certified Nurse Practitioner 03/30/24 04/20/24 Rebeka Trinidad MD [address] [place] [address] PCP - General Family Medicine 04/21/24 04/21/24 Lorri Leo TECHNICAL TESTING ENGINEER, SUPPLIER MANAGER [address] [place] [address] PCP - General Certified Nurse Practitioner 04/22/24 05/30/24 Tani Biggs, PAC [address] [place] [address] PCP - General Physician Mailing Jogger 05/31/24 Phil Jacobo MD [address]2 [place] [address] Consulting Physician Neurology 03/07/21 Rajiv Mccormack, KELI [address] [place] [address] Nurse Practitioner Gastroenterology 03/07/21 Alize Acosta, TECHNICAL TESTING ENGINEER, SUPPLIER MANAGER [address] [place] [address] Virtual [facility] (VAC) IT SALES EXECUTIVE Advanced Practice Nurse 08/30/21 Dayo Chaney MD [address] [place] [address] Guitar Technician Cardiovascular Disease - Cardiology 09/20/21 02/12/24 Juanita Mercado RN [place] Registered Nurse Cardiology 12/24/21 02/12/24 David Salmon MD #[address] [address] Consulting Physician Endocrinology 01/15/22 Maurilio Farley MD #[address] [address] Consulting Physician Colon and Rectal Surgery 09/20/22 Physician, Candida Davis MD [address] [place] [address] Family Medicine 01/25/22 03/18/23 Dom Quiñonez MD #2 [place] [address] Consulting Physician Pulmonary Disease 11/19/21 Rachelle Nava, TECHNICAL TESTING ENGINEER, KINESIOLOGY PROFESSOR #[address] [place] [address] Nurse Practitioner Advanced Practice Nurse 07/19/22 Irais Naylor APRN, SUPPLIER MANAGER #2 [facility] [address] [place] [address] Nurse Practitioner Cardiology 06/27/23 07/29/24 Sharri Gaspar MD 2 [facility] [place] [facility], [place] [place] [address] Consulting Physician Cardiology 04/26/24 Amber Aldrich APRN, SUPPLIER MANAGER #[address] [place] [address] Nurse Practitioner Cardiology 07/30/24 documented as of this encounter
--- OUTSIDE RECORDS SUMMARY | 2024-12-03 01:27 | XMS_ITS | Encounter Summary ---
Author Organization [facility] Address [address] [place] [address] Phone Care Team Providers Care Tow Bar Driver Name Role Phone Jackeline Dimas PECAN GATHERER, SOLE LAYER HAND Primary Care Provider Phil Jacobo MD Unavailable +[phone] Rajiv Mccormack NP Unavailable Unavailable Alize Acosta PECAN GATHERER, SOLE LAYER HAND Unavailable [phone] Dayo Chaney MD Unavailable Juanita Hauser RN Unavailable UnavailDavid Alexandre MD Unavailable Emilia Tang MD Primary Care Provider [phone] Maurilio Farley MD Unavailable Physician, Candida Davis MD Unavailable Rebeka Trinidad MD Primary Care Provider + [phone] Dom Quiñonez MD Unavailable Rachelle Nava PECAN GATHERER, WOOD EXPERIMENTAL MECHANIC Unavailable + [phone] Irais Naylor PECAN GATHERER, SOLE LAYER HAND Unavailable + [phone] Lorri Leo PECAN GATHERER, SOLE LAYER HAND Primary Care Provider [phone] Rebeka Trinidad MD Primary Care Provider + [phone] AhmetLorri Annetta PECAN GATHERER, [facility] Primary Care Provider + [phone] Sharri Gaspar MD Unavailable Kalyan Tani B [facility] Primary Care Provider [phone] Amber Aldrich APRN, [facility] Unavailable Reason for Visit * Reason Comments Medication Refill Encounter Details Date Type Department Care Team (Late st Contact Info) Description 02/09/2022 Refill [facility] - Endocrinology - [place] [address] [place] [address] David Salmon MD #[address] [address] Medication Refill Social History Tobacco [...] 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 No / Unsure 02/06/2022 3:43 PM SENIOR ELECTRICAL ENGINEER documented as of this encounter Miscellaneous Notes * Telephone Encounter - Yesi Leggett RN - 02/11/2022 8:37 AM SENIOR ELECTRICAL ENGINEER Requested Prescriptions Pending Prescriptions Disp Refills ??? TRUEplus 5-Bevel Pen [place] 32G X 4 MM Misc [Pharmacy Med Name: TRUEPLUS 5- BEVEL PEN NEEDLE [id number]] 100 Each 1 Sig: USE DAILY DIRECTED Next appt: 04/30/2022 OR ELECTRICAL ENGINEER documented in this encounter Plan of Treatment Upcoming Encounters Date Type Department Care Team (Late st Contact Info) Description 12/10/2024 2:40 PM CDT Telemedicine [facility] [address] [place] [address] 01/03/2025 11:30 AM CDT Office Visit [facility] - Neurology - [place] [address] [place] [address] Rachelle Nava APRN, WOOD EXPERIMENTAL MECHANIC [address] [place] [address] 02/11/2025 2:00 PM SENIOR ELECTRICAL ENGINEER Telemedicine [facility] [address] [place] [address] 02/16/2025 2:00 PM SENIOR ELECTRICAL ENGINEER Telemedicine [facility] [address] [place] [address] Alize Acosta, PECAN GATHERER, SOLE LAYER HAND [address] [place] [address] 02/21/2025 3:45 PM SENIOR ELECTRICAL ENGINEER Office Visit [facility] Medical [facility] - Endocrinology - [place] [address] [place] [phone] David Salmon MD #[address] [address] 03/04/2025 3:10 PM SENIOR ELECTRICAL ENGINEER [facility] - [place] [address] [place] [address] 03/04/2025 3:30 PM SENIOR ELECTRICAL ENGINEER Office Visit [facility] - Primary Care - [place] [address] [place] [address] Tani Biggs, PAC [address] [place] [address] 03/17/2025 1:30 PM SENIOR ELECTRICAL ENGINEER [facility] [address] [place] [address] Melony Asif, PAC [address] [place] [address] Discharge Disposition: Discharged to home or Selfcare 03/25/2025 1:20 PM SENIOR ELECTRICAL ENGINEER [facility] [address] [place] [address] Melony Asif Stacey, [facility] [address] [place] [address] Discharge Disposition: Discharged to home or Selfcare 04/25/2025 2:00 PM SENIOR ELECTRICAL ENGINEER Office Visit [facility] - Cardiology - [place] [address] [place] [address] Laisha Griffin, DO [address] [address] 07/18/2025 1:00 PM CDT Office Visit [facility] - Pulmonology & Sleep Medicine - [place] [address] [place] [address] Dom Quiñonez MD #[address] [place] [address] documented as of this encounter [...] recommended. Depression Depression Improving( 2:27 PM SENIOR ELECTRICAL ENGINEER) No Breanne Saldana, PASTE WORKER Note: Goal/Objective: Decrease symptoms of depression [...] 04/18/2024 04/18/2024 04/18/2024 10:4 7 PM SENIOR ELECTRICAL ENGINEER Respiratory Rule-Out 05/06/2024 05/06/2024 025 9:20 AM SENIOR ELECTRICAL ENGINEER COVID - 19 05/06/2024 05/06/2024 05/06/2024 9:19 AM SENIOR ELECTRICAL ENGINEER Assessment Noted Time PHQ-9 Depression Total Score: 24 022 3:31 PM SENIOR ELECTRICAL ENGINEER documented as of this encounter Care Teams Tow Bar Driver Relationship Specialty Start Date End Date Jackeline Dimas PECAN GATHERER, SOLE LAYER HAND [address] [address] PCP - General Advanced Practice Nurse 07/31/17 Emilia Tang MD [address] [place] [address] PCP - General Family Medicine 06/07/22 03/25/23 Rebeka Trinidad MD [address] [place] [address] PCP - General Family Medicine 03/26/23 03/29/24 Lorri Leo APRN, SOLE LAYER HAND [address] [place] [address] PCP - General Certified Nurse Practitioner 03/30/24 04/20/24 Rebeka Trinidad MD [address] [address] PCP - General Family Medicine 04/21/24 04/21/24 Lorri Leo APRN, SOLE LAYER HAND [address] [place] [address] PCP - General Certified Nurse Practitioner 04/22/24 05/30/24 Tani Biggs, PAC [address] [place] [address] PCP - General Physician Timber Trimmer 05/31/24 Phil Jacobo MD #[address] [place] [address] Consulting Physician Neurology 03/07/21 Rajiv Mccormack, KELI [address] [place] [address] Nurse Practitioner Gastroenterology 03/07/21 Alize Acosta APRN, SOLE LAYER HAND [address] [place] [address] Virtual [facility] (VAC) SCRAP CHARGER Advanced Practice Nurse 08/30/21 Dayo Chaney MD [facility]6 [place] [address] Delivery Driver/Customer Service Cardiovascular Disease - Cardiology 09/20/21 02/12/24 Juanita Mercado RN [place] Registered Nurse Cardiology 12/24/21 02/12/24 David Salmon MD #[address] [address] Consulting Physician Endocrinology 01/15/22 Maurilio Farley MD #[address] [address] Consulting Physician Colon and Rectal Surgery 09/20/22 PhysicianCandida MD [address] [place] [address] Family Medicine 01/25/22 03/18/23 Dom Quiñonez MD #[address] [place] [address] Consulting Physician Pulmonary Disease 11/19/21 Rachelle Nava, PECAN GATHERER, WOOD EXPERIMENTAL MECHANIC #[address] [place] [address] Nurse Practitioner Advanced Practice Nurse 07/19/22 Irais Naylor, PECAN GATHERER, SOLE LAYER HAND [address] [facility] [address] Nurse Practitioner Cardiology 06/27/23 07/29/24 Sharri Gaspar MD 2 [facility] [place] [address] [address] Consulting Physician Cardiology 04/26/24 Amber Aldrich APRN, SOLE LAYER HAND #[address] [place] [address] Nurse Practitioner Cardiology 07/30/24 documented as of this encounter
--- OUTSIDE RECORDS SUMMARY | 2024-12-03 01:27 | XMS_ITS | Encounter Summary ---
Author Organization [facility] Address [address] [place] [address] Phone Care Team Providers Care Econometrician Name Role Phone Jackeline Dimas SEA AIR LAND OFFICER, NATUROPATHIC DOCTOR Primary Care Provider Phil Jcaobo MD Unavailable [phone] Rajiv Mccormack NP Unavailable Unavailable Alize Acosta SEA AIR LAND OFFICER, NATUROPATHIC DOCTOR Unavailable [phone] Dayo Chaney MD Unavailable Juanita Hauser RN Unavailable UnavailDavid Alexandre MD Unavailable Emilia Tang MD Primary Care Provider [phone] Maurilio Farley MD Unavailable Physician, Candida Davis MD Unavailable Rebeka Trinidad MD Primary Care Provider + [phone] Dom Quiñonez MD Unavailable Rachelle Nava SEA AIR LAND OFFICER, CLINICAL STAFF ANESTHESIOLOGIST Unavailable + [phone] Irais Naylor SEA AIR LAND OFFICER, NATUROPATHIC DOCTOR Unavailable + [phone] Lorri Leo SEA AIR LAND OFFICER, NATUROPATHIC DOCTOR Primary Care Provider [phone] Rebeka Trinidad MD Primary Care Provider + [phone] AhmetLorri Annetta SEA AIR LAND OFFICER, [facility] Primary Care Provider + [phone] Sharri Gaspar MD Unavailable Tani Biggs [facility] Primary Care Provider [phone] Ambre Aldrich SEA AIR LAND OFFICER, [facility] Unavailable Reason for Visit * Reason Comments Medication Refill Encounter Details Date Type Department Care Team (Late Contact Info) Description 01/14/2022 Refill [facility] - Primary Care - [place] [address] [place] [address] Jackeline Dimas SEA AIR LAND OFFICER, [facility] [address] [place] [address] Medication Refill Social History Tobacco [...] 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 Unable to assess 01/16/2022 3:15 PM STEWARD DISHWASHER documented as of this encounter Plan of Treatment Upcoming Encounters Date Type Department Care Team (Late Contact Info) Description 12/10/2024 2:40 PM CDT Telemedicine [facility] [address] [place] [address] 01/03/2025 11:30 AM CDT [facility] - [place] [address] [place] [address] Rachelle Nava, SEA AIR LAND OFFICER, CLINICAL STAFF ANESTHESIOLOGIST #[address] [place] [address] 02/11/2025 2:00 PM STEWARD DISHWASHER Telemedicine [facility] [address] [place] [address] 02/16/2025 2:00 PM STEWARD DISHWASHER Telemedicine [facility] [address] [place] [address] Alize Acosta, SEA AIR LAND OFFICER, NATUROPATHIC DOCTOR [address] [place] [address] 02/21/2025 3:45 PM STEWARD DISHWASHER Office Visit [facility] - Endocrinology - [place] [address] [place] [address] David Salmon MD #[address] [address] 03/04/2025 3:10 PM STEWARD DISHWASHER [facility] - [place] [address] [place] [address] 03/04/2025 3:30 PM STEWARD DISHWASHER Office Visit [facility] - Primary Care - [place] [address] [place] [address] Tani Biggs PAC [address] [place] [address] 03/17/2025 1:30 PM STEWARD DISHWASHER [facility] [address] [place] [address] Melony Asif August, PAC [address] [place] [address] Discharge Disposition: Discharged to home or Selfcare 03/25/2025 1:20 PM STEWARD DISHWASHER Office Visit [facility] Oncology Services [address] [place] [address] Melony Asif August, PAC [address] [place] [address] Discharge Disposition: Discharged to home or Selfcare 04/25/2025 2:00 PM STEWARD DISHWASHER Office Visit [facility] - Cardiology - [place] [address] [place] [address] Laisha Griffin, DO [address] [address] 07/18/2025 1:00 PM CDT Office Visit [facility] - Pulmonology & Sleep Medicine [facility] #2 [place] [address] Dom Quiñonez MD #[address] [place] [address] documented as of this encounter Goals Goal [...] as recommended. Depression Depression Improving( 2:27 PM STEWARD DISHWASHER) No Breanne Saldaan, PHARMACY ANALYST Note: Goal/Objective: Decrease symptoms of depression [...] 19 04/18/2024 04/18/2024 04/18/2024 10:4 7 PM STEWARD DISHWASHER Respiratory Rule-Out 05/06/2024 05/06/2024 025 9:20 AM STEWARD DISHWASHER COVID - 19 05/06/2024 05/06/2024 05/06/2024 9:19 AM STEWARD DISHWASHER Assessment Noted Time PHQ-9 Depression Total Score: 0 09/01/19 20 11:58 AM CDT documented as of this encounter Care Teams Econometrician Relationship Specialty Start Date End Date Jackeline Dimas, SEA AIR LAND OFFICER, NATUROPATHIC DOCTOR [address] [place] [address] PCP - General Advanced Practice Nurse 07/31/17 Emilia Tang MD [address] [place] [address] PCP - General Family Medicine 06/07/22 03/25/23 Rebeka Trinidad MD [address] [place] [address] PCP - General Family Medicine 03/26/23 03/29/24 Lorri Leo APRN, NATUROPATHIC DOCTOR [address] [place] [address] PCP - General Certified Nurse Practitioner 03/30/24 04/20/24 Rebeka Trinidad MD [address] [place] [address] PCP - General Family Medicine 04/21/24 04/21/24 Lorri Leo APRN, NATUROPATHIC DOCTOR [address] [place] [address] PCP - General Certified Nurse Practitioner 04/22/24 05/30/24 Tani Biggs PAC [address] [place] [address] PCP - General Physician Precipitator 05/31/24 Phil Jacobo MD #[address] [place] [address] Consulting Physician Neurology 03/07/21 Rajiv Mccormack NP #[address] [place] [address] Nurse Practitioner Gastroenterology 03/07/21 Alize Acosta, SEA AIR LAND OFFICER, NATUROPATHIC DOCTOR [address] [place] [address] Virtual Advanced Care (VAC) TRAINING MGR Advanced Practice Nurse 08/30/21 Dayo Chaney MD [address] [place] [address] Hogshead Liner Cardiovascular Disease - Cardiology 09/20/21 02/12/24 Juanita Mercado RN [place] Registered Nurse Cardiology 12/24/21 02/12/24 David Salmon MD #[address] [address] Consulting Physician Endocrinology 01/15/22 Maurilio Farley MD #[address] [address] Consulting Physician Colon and Rectal Surgery 09/20/22 PhysicianCandida MD [address] [place], [place] [address] Family Medicine 01/25/22 03/18/23 Dom Quiñonez MD #2 [place] [address] Consulting Physician Pulmonary Disease 11/19/21 Rachelle Nava APRN, CLINICAL STAFF ANESTHESIOLOGIST #[address] [place] [address] Nurse Practitioner Advanced Practice Nurse 07/19/22 Irais Naylor APRN, NATUROPATHIC DOCTOR #2 [facility] [address] [place] [address] Nurse Practitioner Cardiology 06/27/23 07/29/24 Sharri Gaspar MD 2 [facility] [place] [place] [address] Consulting Physician Cardiology 04/26/24 Amber Aldrich APRN, NATUROPATHIC DOCTOR #[address] [place] [address] Nurse Practitioner Cardiology 07/30/24 documented as of this encounter
--- OUTSIDE RECORDS SUMMARY | 2024-12-03 01:27 | XMS_ITS | Encounter Summary ---
Author Organization [facility] Address [address] [place] [address] Phone Care Team Providers Care Process Engineer Name Role Phone Phil Jacobo MD Unavailable [phone] Rajiv Mccormack NP Unavailable Unavailable Alize Acosta APRN, ADVERTISING ACCOUNT REPRESENTATIVE Unavailable [phone] Dayo Chaney MD Unavailable Juanita Hauser RN Unavailable UnavailDavid Alexandre MD Unavailable Maurilio Farley MD Unavailable Rebeka Trinidad MD Primary Care Provider + [phone] Dom Quiñonez MD Unavailable Rachelle Nava CAR CLEANING SUPERVISOR, AIRPORT BAGGAGE SCREENER Unavailable + [phone] Irais Naylor CAR CLEANING SUPERVISOR, ADVERTISING ACCOUNT REPRESENTATIVE Unavailable + [phone] Lorri Leo CAR CLEANING SUPERVISOR, ADVERTISING ACCOUNT REPRESENTATIVE Primary Care Provider + [phone] Rebeka Trinidad MD Primary Care Provider + [phone] Lorri Leo CAR CLEANING SUPERVISOR, ADVERTISING ACCOUNT REPRESENTATIVE Primary Care Provider + [phone] Sharri Gaspar MD Unavailable Tani Biggs [facility] Primary Care Provider [phone] Amber Aldrich APRN, CNP Unavailable Reason for Visit * Reason Comments Medication Refill Encounter Details Date Type Department Care Team (Late st Contact Info) Description 06/20/2023 Refill [facility] - Endocr[facility]ology - [place] [address] [place] [address] David Salmon MD #[address] [address] Medication Refill Social History Tobacco Use Types Packs/Day Years Used Date Smoking Tobacco: Former Cigarettes 1 37.1 1 985 - 04/12/2021 Smokeless Tobacco: Never Alcohol Use Standard Drinks/Week Comments Not Currently 0 (1 standard drink = 0.6 oz pur e alcohol) last drank 2020 [facility] Utilities Answer Date Recorded In the past 12 months has [employer] electric, gas, oil, or water company threatened [...] Never 03/24/2023 How often do you attend [facility] or yazdanism services? 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 file Not [...] Telemedicine [facility] [address] [place] [address] 01/03/2025 11:30 AM CDT [facility]rology - [place] #2 [place] [address] Rachelle Nava APRN, AIRPORT BAGGAGE SCREENER #2 [place] [address] 02/11/2025 2:00 PM TRACTOR TRAILER TECHNICIAN Telemedicine [facility] [address] [place] [address] 02/16/2025 2:00 PM TRACTOR TRAILER TECHNICIAN Telemedicine [facility] [address] [place] [address] Alize Acosta, CAR CLEANING SUPERVISOR, ADVERTISING ACCOUNT REPRESENTATIVE [address] [place] [address] 02/21/2025 3:45 PM TRACTOR TRAILER TECHNICIAN [facility] - [place] #2 [place] [address] David Salmon MD #[address] [address] 03/04/2025 3:10 PM TRACTOR TRAILER TECHNICIAN [facility] [place] [address] [place] [address] 03/04/2025 3:30 PM TRACTOR TRAILER TECHNICIAN Office Visit [facility] Primary Care - [place] [address] [place] [address] Tani Biggs, PAC [address] [place] [address] 03/17/2025 1:30 PM TRACTOR TRAILER TECHNICIAN [facility] [address] [place] [address] Melony Asif, PAC [address] [place] [address] Discharge Disposition: Discharged to home or Selfcare 03/25/2025 1:20 PM TRACTOR TRAILER TECHNICIAN [facility] [address] [place] [address] Melony Asif, PAC [address] [place] [address] Discharge Disposition: Discharged to home or Selfcare 04/25/2025 2:00 PM TRACTOR TRAILER TECHNICIAN [facility] [place] #2 [place] [address] Laisha Griffin, DO [address] [address] 07/18/2025 1:00 PM CDT Office Visit [facility] - [facility] #2 [place] [address] Dom Quiñonez MD #2 [place] [address] documented as of this encounter Goals Goal [...] 09/22/2023 3:12 PM CDT) Yes Hilda Tinajero [facility] Note: Goal/Objective: Decrease symptoms of depression and anxiety. Anticipated Time Frame for Goal Completion: 3 months Goal Reviewed with: patient Readiness to change: Thinking about making a change Department associated with goal: [facility] Steps to [...] Depression Depression Improving(0 03/15/2022 2:27 PM TRACTOR TRAILER TECHNICIAN) No Breanne Saldana LCSW Note: Goal/Objective: [...] 04/18/2024 04/18/2024 04/18/2024 10:4 7 PM TRACTOR TRAILER TECHNICIAN Respiratory Rule-Out 05/06/2024 05/06/2024 025 9:20 AM TRACTOR TRAILER TECHNICIAN COVID - 19 05/06/2024 05/06/2024 05/06/2024 9:19 AM TRACTOR TRAILER TECHNICIAN Assessment Noted Time PHQ-9 Depression Total Score: 18 023 9:24 AM CDT documented as of this encounter Care Teams Process Engineer Relationship Specialty Start Date End Date Rebeka Trinidad MD [address] [place] [address] [address] PCP - General Family Medicine 03/26/23 03/29/24 Lorri Leo, CAR CLEANING SUPERVISOR, ADVERTISING ACCOUNT REPRESENTATIVE [address] [place] [address] PCP - General Certified Nurse Practitioner 03/30/24 04/20/24 Rebeka Trinidad MD [address] [place] [address] PCP - General Family Medicine 04/21/24 04/21/24 Lorri Leo APRN, ADVERTISING ACCOUNT REPRESENTATIVE [address] [place] [address] PCP - General Certified Nurse Practitioner 04/22/24 05/30/24 Tani Biggs PAC [address] [place] [address] PCP - General Physician Resident Care Manager Rn 05/31/24 Phil Jacobo MD #2 [place] [address] Consulting Physician Neurology 03/07/21 Rajiv Mccormack, PHYSICIAN GENERAL INTERNAL MEDICINE #2 [place] [address] Nurse Practitioner Gastroenterology 03/07/21 Alize Acosta, RUSSELL, ADVERTISING ACCOUNT REPRESENTATIVE [facility] [place] [address] Virtual Advanced Care (VAC) AWS ARCHITECT Advanced Practice Nurse 08/30/21 Dayo Chaney MD [facility] [place] [address] Solid Waste Facility Supervisor Cardiovascular Disease - Cardiology 09/20/21 02/12/24 Juanita Mercado RN [place] Registered Nurse Cardiology 12/24/21 02/12/24 David Salmon MD #[address] [address] Consulting Physician Endocrinology 01/15/22 Maurilio Farley MD #2 [facility] [address] Consulting Physician Colon and Rectal Surgery 09/20/22 Dom Quiñonez MD #2 [place] [address] Consulting Physician Pulmonary Disease 11/19/21 Rachelle Nava, CAR CLEANING SUPERVISOR, AIRPORT BAGGAGE SCREENER #2 [place] [address] Nurse Practitioner Advanced Practice Nurse 07/19/22 Irais Naylor, CAR CLEANING SUPERVISOR, ADVERTISING ACCOUNT REPRESENTATIVE #[address] [address] Nurse Practitioner Cardiology 06/27/23 07/29/24 Sharri Gaspar MD 2 [facility] [address] [address] Consulting Physician Cardiology 04/26/24 Amber Aldrich, CAR CLEANING SUPERVISOR, ADVERTISING ACCOUNT REPRESENTATIVE #2 [place] [address] Nurse Practitioner Cardiology 07/30/24 documented as of this encounter
--- OUTSIDE RECORDS SUMMARY | 2024-12-03 01:27 | XMS_ITS | Encounter Summary ---
Author Organization [facility] Address [address] [place] [address] Phone Care Team Providers Care Bat Person Name Role Phone Phil Jacobo MD Unavailable [phone] Rajiv Mccormack NP Unavailable Unavailable Alize Acosta APRN, PLANT QUALITY MANAGER Unavailable [phone] Dayo Chaney MD Unavailable Juanita Hauser RN Unavailable UnavailDavid Alexandre MD Unavailable Maurilio Farley MD Unavailable Rebeka Trinidad MD Primary Care Provider + [phone] Dom Quiñonez MD Unavailable Rachelle Nava SUPERVISOR ELECTRONICS PROCESSING, VEGETABLE GROWER Unavailable + [phone] Irais Naylor SUPERVISOR ELECTRONICS PROCESSING, PLANT QUALITY MANAGER Unavailable + [phone] Lorri Leo SUPERVISOR ELECTRONICS PROCESSING, PLANT QUALITY MANAGER Primary Care Provider + [phone] Rebeka Trinidad MD Primary Care Provider + [phone] Lorri Leo SUPERVISOR ELECTRONICS PROCESSING, PLANT QUALITY MANAGER Primary Care Provider + [phone] Sharri Gaspar MD Unavailable Tani Biggs PAC Primary Care Provider + [phone] Amber Aldrich APRN, CNP Unavailable Encounter Details Date Type Department Care Team (Late st Contact Info) Description 07/23/2023 Telephone [facility] [address] [place] [address] Rebeka Trinidad MD [address] [place] [address] Social History Tobacco Use Types Packs/Day Years Used Date Smoking Tobacco: Former Cigarettes 1 37.1 1 985 - 04/12/2021 Smokeless Tobacco: Never Alcohol Use Standard Drinks/Week Comments Not Currently 0 (1 standard drink = 0.6 oz pur e alcohol) last drank [address] [facility] Utilities Answer Date Recorded In the past 12 months has [employer], gas, oil, or water [employer] threatened to shut off services in your home? No 03/24/2023 Social Connection and Isolation Panel Answer Date Recorded In a typical week, how many times do you talk on the phone with family, friends, or neighbors? Once a week 03/24/2023 How often do you get togethe r with friends or relatives? Never 03/24/2023 How often do you attend [facility] or christianity services? 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 Not on file documented as of this encounter Plan of Treatment Upcoming Encounters Date Type Department Care Team (Late st Contact Info) Description 12/10/2024 2:40 PM CDT Telemedicine [facility] [address] [place] [address] 01/03/2025 11:30 AM CDT [facility] [place] [address] [place] [address] Rachelle Nava, SUPERVISOR ELECTRONICS PROCESSING, VEGETABLE GROWER #[address] [place] [address] 02/11/2025 2:00 PM RETAIL DEPARTMENT SUPERVISOR Telemedicine [facility] [address] [place] [address] 02/16/2025 2:00 PM RETAIL DEPARTMENT SUPERVISOR Telemedicine [facility] [address] [place] [address] Alize Acosta, SUPERVISOR ELECTRONICS PROCESSING, PLANT QUALITY MANAGER [address] [place] [address] 02/21/2025 3:45 PM RETAIL DEPARTMENT SUPERVISOR Office Visit [facility] Medical [facility] - Endocrinology - [place] [address] [place] [address] David Salmon MD #[address] [address] 03/04/2025 3:10 PM RETAIL DEPARTMENT SUPERVISOR Lab [facility] - [place] [facility] [place] [address] 03/04/2025 3:30 PM RETAIL DEPARTMENT SUPERVISOR Office [facility] - Primary Care - [place] [address] [place] [address] Tani Biggs, [facility] [address] [place] [address] 03/17/2025 1:30 PM RETAIL DEPARTMENT SUPERVISOR Lab [facility] [address] [place] [address] Melony Asif Stacey, [facility] [address] [place] [address] Discharge Disposition: Discharged to home or Selfcare 03/25/2025 1:20 PM RETAIL DEPARTMENT SUPERVISOR Office [facility] Oncology Services [address] [place] [address] Melony Asif Stacey, [facility] [address] [place] [address] Discharge Disposition: Discharged to home or Selfcare 04/25/2025 2:00 PM RETAIL DEPARTMENT SUPERVISOR Office Visit [facility] - Cardiology - [place] [address] [place] [address] Laisha Griffin, DO [address] [address] 07/18/2025 1:00 PM CDT Office Visit [facility] - Pulmonology & Sleep Medicine [facility] #2 [place] [address] Dom Quiñonez MD #2 [place] [address] documented as of this encounter Goals Goal Patient Goal Type Associated Problems Recent Progress Patient-Stated? Author ACTIVITY Activity No change(08/08 2:42 PM CDT) Yes Maritza Vanegas, RN Note: Bonny will walk five days a week. Goal Reviewed with: Bonny Readiness to change: Department associated with goal: [facility] CARE Steps to achieve goal: Walking 5 days a week I want to be able to be around people and feel less depressed. Behavioral Health Worsening(0 09/22/2023 3:12 PM CDT) Yes Hilda Tinajero [facility] Note: Goal/Objective: Decrease symptoms of depression and anxiety. Anticipated Time Frame for Goal Completion: 3 months Goal Reviewed with: patient Readiness to change: Thinking about making a change Department associated with goal: [facility] Steps to achieve [...] diet Depression Depression Improving(0 03/15/2022 2:27 PM RETAIL DEPARTMENT SUPERVISOR) No Breanne Saldana, ANIMAL ATTENDANT Note: Goal/Objective: Decrease symptoms of depression associated [...] 04/18/2024 04/18/2024 04/18/2024 10:4 7 PM RETAIL DEPARTMENT SUPERVISOR Respiratory Rule-Out 05/06/2024 05/06/2024 025 9:20 AM RETAIL DEPARTMENT SUPERVISOR COVID - 05/06/2024 05/06/2024 05/06/2024 9:19 AM RETAIL DEPARTMENT SUPERVISOR Assessment Noted Time PHQ-9 Depression Total Score: 18 023 9:24 AM CDT documented as of this encounter Care Teams Bat Person Relationship Specialty Start Date End Date Rebeka Trinidad MD [address] [place] [address] PCP - General Family Medicine 03/26/23 03/29/24 Lorri Leo APRN, PLANT QUALITY MANAGER [address] [place] [address] PCP - General Certified Nurse Practitioner 03/30/24 04/20/24 Rebeka Trinidad MD [address] [place] [address] PCP - General Family Medicine 04/21/24 04/21/24 Lorri Leo APRN, PLANT QUALITY MANAGER [address] [place] [address] PCP - General Certified Nurse Practitioner 04/22/24 05/30/24 Tani Biggs, PAC [address] [place] [address] PCP - General Physician Managed Care Specialist 05/31/24 Phil Jacobo MD #2 [place] [address] Consulting Physician Neurology 03/07/21 Rajiv Mccormack, KELI #[address] [place] [address] Nurse Practitioner Gastroenterology 03/07/21 Alize Acosta, SUPERVISOR ELECTRONICS PROCESSING, PLANT QUALITY MANAGER [address] [place] [address] Virtual Advanced Care (VAC) MACHINE COREMAKER Advanced Practice Nurse 08/30/21 Dayo Chaney MD [facility] [place] [address] Inside Meter Tester Cardiovascular Disease - Cardiology 09/20/21 02/12/24 Juanita Mercado RN [place] Registered Nurse Cardiology 12/24/21 02/12/24 David Salmon MD #[address] [address] Consulting Physician Endocrinology 01/15/22 Maurilio Farley MD #[address] [address] Consulting Physician Colon and Rectal Surgery 09/20/22 Dom Quiñonez MD #2 [place] [address] Consulting Physician Pulmonary Disease 11/19/21 Rachelle Nava, SUPERVISOR ELECTRONICS PROCESSING, VEGETABLE GROWER #[address] [place] [address] Nurse Practitioner Advanced Practice Nurse 07/19/22 Irais Naylor, SUPERVISOR ELECTRONICS PROCESSING, PLANT QUALITY MANAGER #2 [facility] [address] [place] [address] Nurse Practitioner Cardiology 06/27/23 07/29/24 Sharri Gaspar MD 2 [facility] [address] [place] [address] Consulting Physician Cardiology 04/26/24 Amber Aldrich SUPERVISOR ELECTRONICS PROCESSING, PLANT QUALITY MANAGER #2 [place] [address] Nurse Practitioner Cardiology 07/30/24 documented as of this encounter
--- OUTSIDE RECORDS SUMMARY | 2024-12-03 01:27 | XMS_ITS | Encounter Summary ---
Author Organization [facility] Address [address] [place] [address] Phone Care Team Providers Care Fellmongery Worker Name Role Phone Phil Jacobo MD Unavailable [phone] Rajiv Mccormack NP Unavailable Unavailable Alize Acosta APRN, PERIODONTAL ASSISTANT Unavailable [phone] Dayo Chaney MD Unavailable Juanita Hauser RN Unavailable UnavailDavid Alexandre MD Unavailable Maurilio Farley MD Unavailable Rebeka Trinidad MD Primary Care Provider + [phone] Dom Quiñonez MD Unavailable Rachelle Nava DIRECTOR OF PUPIL PERSONNEL PROGRAM, RETAIL SELLING SPECIALIST Unavailable + [phone] Irais Naylor DIRECTOR OF PUPIL PERSONNEL PROGRAM, PERIODONTAL ASSISTANT Unavailable + [phone] Lorri Leo DIRECTOR OF PUPIL PERSONNEL PROGRAM, PERIODONTAL ASSISTANT Primary Care Provider + [phone] Rebeka [place] MD Primary Care Provider + [phone] Lorri Leo DIRECTOR OF PUPIL PERSONNEL PROGRAM, PERIODONTAL ASSISTANT Primary Care Provider + [phone] Sharri Gaspar MD Unavailable Tani Biggs [facility] Primary Care Provider + [phone] Amber Aldrich APRN, CNP Unavailable Reason for Visit * Reason Comments Medication Refill Encounter Details Date Type Department Care Team (Late st Contact Info) Description 07/18/2023 Refill [facility] - Primary Care - [place] [address] [place] [address] Rebeka [place] MD [address] [place] [address] Medication Refill Social History Tobacco Use Types Packs/Day Years Used Date Smoking Tobacco: Former Cigarettes 1 37.1 1 985 - 04/12/2021 Smokeless Tobacco: Never Alcohol Use Standard Drinks/Week Comments Not Currently 0 (1 standard drink = 0.6 oz pur e alcohol) last drank 2020 [facility] Utilities Answer Date Recorded In the past 12 months has [employer], gas, oil, or water [email or web address] threatened to shut off services in your home? No 03/24/2023 Social Connection and Isolation Panel Answer Date Recorded In a typical week, how many times do you talk on the phone with family, friends, or neighbors? Once a week 03/24/2023 How often do you get togethe r with friends or relatives? Never 03/24/2023 How often do you attend [facility] or advent services? 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 on file Not [...] CDT Telemedicine [facility] [address] [place] [address] 01/03/2025 11:30 AM CDT [facility] - [place] #[address] [place] [address] Rachelle Nava APRN, RETAIL SELLING SPECIALIST #[address] [place] [address] 02/11/2025 2:00 PM NUCLEAR AUXILIARY OPERATOR Telemedicine [facility] [address] [place] [address] 02/16/2025 2:00 PM NUCLEAR AUXILIARY OPERATOR Telemedicine [facility] [address] [place] [address] Alize Acosta, DIRECTOR OF PUPIL PERSONNEL PROGRAM, PERIODONTAL ASSISTANT [address] [place] [address] 02/21/2025 3:45 PM NUCLEAR AUXILIARY OPERATOR [facility] Visit [facility] - Endocrinology - [place] #[address] [place] [address] David Salmon MD #[address] [phone] 03/04/2025 3:10 PM NUCLEAR AUXILIARY OPERATOR [facility] [place] [address] [place] [address] 03/04/2025 3:30 PM NUCLEAR AUXILIARY OPERATOR Office Visit [facility] - [place] [address] [place] [address] Tani Biggs, PAC [address] [place] [address] 03/17/2025 1:30 PM NUCLEAR AUXILIARY OPERATOR [facility] [address] [place] [address] Melony Asif, PAC [address] [place] [address] Discharge Disposition: Discharged to home or Selfcare 03/25/2025 1:20 PM NUCLEAR AUXILIARY OPERATOR [facility] [address] [place] [address] Melony Asif, PAC [address] [place] [address] Discharge Disposition: Discharged to home or Selfcare 04/25/2025 2:00 PM NUCLEAR AUXILIARY OPERATOR Office Visit [facility] Card[facility] #2 [place] [address] Laisha Griffin, DO [address] [address] 07/18/2025 1:00 PM CDT Office Visit [facility] Medical [facility] - Pulmonology & Sleep Medicine - [place] #[address] [place] [address] Dom Quiñonez MD #[address] [place] [address] documented as of this encounter Goals Goal Patient Goal Type Associated Problems Recent Progress Patient-Stated? Author ACTIVITY Activity No change(08/08 2:42 PM CDT) Yes Maritza Vanegas, RN Note: Bonny will walk five days a week. Goal Reviewed with: Bonny Readiness to change: Department associated with goal: [facility] Steps to achieve goal: Walking 5 days a week I want to be able to be around people and feel less depressed. Behavioral Health Worsening(0 09/22/2023 3:12 PM CDT) Yes Hilda Tinajero [facility] Note: Goal/Objective: Decrease symptoms of depression and anxiety. Anticipated Time Frame for Goal Completion: 3 months Goal Reviewed with: patient Readiness to change: Thinking about making a change Department associated with goal: [facility] Steps to [...] diet Depression Depression Improving(0 03/15/2022 2:27 PM NUCLEAR AUXILIARY OPERATOR) No Breanne Saldana LCSW Note: Goal/Objective: [...] 19 04/18/2024 04/18/2024 04/18/2024 10:4 7 PM NUCLEAR AUXILIARY OPERATOR Respiratory Rule-Out 05/06/2024 05/06/2024 025 9:20 AM NUCLEAR AUXILIARY OPERATOR COVID - 19 05/06/2024 05/06/2024 05/06/2024 9:19 AM NUCLEAR AUXILIARY OPERATOR Assessment Noted Time PHQ-9 Depression Total Score: 18 023 9:24 AM CDT documented as of this encounter Care Teams Fellmongery Worker Relationship Specialty Start Date End Date Rebeka Trinidad MD [address] [place] [address] PCP - General Family Medicine 03/26/23 03/29/24 Lorri Leo, DIRECTOR OF PUPIL PERSONNEL PROGRAM, PERIODONTAL ASSISTANT [address] [place] [address] PCP - General Certified Nurse Practitioner 03/30/24 04/20/24 Rebeka [place] MD [address] [place] [address] PCP - General Family Medicine 04/21/24 04/21/24 Lorri Leo APRN, PERIODONTAL ASSISTANT [address] [place] [address] PCP - General Certified Nurse Practitioner 04/22/24 05/30/24 Tani Biggs PAC [address] [place] [address] PCP - General Physician Track Superintendent 05/31/24 Phil Jacobo MD #2 [place] [address] Consulting Physician Neurology 03/07/21 Rajiv Mccormack, KELI [address] [place] [address] Nurse Practitioner Gastroenterology 03/07/21 Alize Acosta, RUSSELL, PERIODONTAL ASSISTANT [address] [place] [address] Virtual Advanced Care (VAC) EDITORIAL MANAGER Advanced Practice Nurse 08/30/21 Dayo Chaney MD [address] [place] [address] Photographic Equipment Technician Cardiovascular Disease - Cardiology 09/20/21 02/12/24 Juanita Mercado RN [place] Registered Nurse Cardiology 12/24/21 02/12/24 David Salmon MD #[address] [address] Consulting Physician Endocrinology 01/15/22 Maurilio Farley MD #2 [facility] [address] Consulting Physician Colon and Rectal Surgery 09/20/22 Dom Quiñonez MD #2 [place] [address] Consulting Physician Pulmonary Disease 11/19/21 Rachelle Nava, DIRECTOR OF PUPIL PERSONNEL PROGRAM, RETAIL SELLING SPECIALIST #[address] [place] [address] Nurse Practitioner Advanced Practice Nurse 07/19/22 Irais Naylor, DIRECTOR OF PUPIL PERSONNEL PROGRAM, PERIODONTAL ASSISTANT #[address] [address] Nurse Practitioner Cardiology 06/27/23 07/29/24 Sharri Gaspar MD 2 [facility] [address] [address] Consulting Physician Cardiology 04/26/24 Amber Aldrich, DIRECTOR OF PUPIL PERSONNEL PROGRAM, PERIODONTAL ASSISTANT #[address] [place] [address] Nurse Practitioner Cardiology 07/30/24 documented as of this encounter
--- OUTSIDE RECORDS SUMMARY | 2024-12-03 01:27 | XMS_ITS | Clinical Summary ---
Author Organization [facility] Address [address] [place] [address] Phone Care Team Providers Care Passenger Brakeman Name Role Phone Unavailable Primary Care Provider [...] by mouth 2 times daily. Active Insulin [place], Disposable, (BD Ultra-Fine Short Pen Needle) 31 [...] with breakfast. Active naloxone (NARCAN) 4 mg/spray [place], Non-Aerosol Administer 4 mg in one nostril [...] Encounters Date Type Department Care Team Description 11/30/2024 External Device Data ST[facility] ABSTRACTION Provider, Abstract [...] Comments Blood Pressure 115/66 01/28/2024 4:25 AM COGNOS TM1 DEVELOPER Pulse 79 01/28/2024 4:25 AM [facility] TM1 DEVELOPER Temperature 36.9 C (98.4 F) 01/28/2024 4:25 AM COGNOS TM1 DEVELOPER Respiratory Rate 16 01/28/2024 4:25 AM COGNOS TM1 DEVELOPER Oxygen Saturation 100% 01/28/2024 4:25 AM COGNOS TM1 DEVELOPER Inhaled Oxygen Concentration - - Weight 77.9 kg (171 lb 11.2 oz) 01/25/2024 2:00 AM COGNOS TM1 DEVELOPER Height 162.6 cm (5' 4) 01/25/2024 2:00 AM COGNOS TM1 DEVELOPER Body Mass Index 29.47 01/25/2024 2:00 AM COGNOS TM1 DEVELOPER Plan of Treatment Health Maintenance Due Date [...] Comments COLONOSCOPY REPORT 01/27/2024 10 :31 AM COGNOS TM1 DEVELOPER HEMOGLOBIN A1C Stat 01/25/2024 8:08 AM COG[facility] TM1 DEVELOPER from Last 3 Months or Most Recently Relevant to Health Maintenance Results * COLONOSCOPY REPORT (01/27/2024 10:31 AM COGNOS TM1 DEVELOPER) Narrative Procedure Note Roman Pang MD - 01/27/2024 10:31 AM CST [facility] Endoscopy Patient Name: Jodie Sutton Procedure Date: [...] of Addenda: [address]; [place] [address] Roman Pang MD GI PROCEDURE ORDERABLES Final Re sult * HEMOGLOBIN A1C (01/25/2024 8:08 AM COGNOS TM1 DEVELOPER) HEMOGLOBIN A1C 5.3 <5.7 % 01/25/2024 2:20 PM COGNOS TM1 DEVELOPER [facility] EST. AVG GLUCOSE, A1C 105 mg/dL 01/25/2024 2:20 PM [facility] Blood Venipuncture / Unknown 01/25/2024 8:08 AM COGNOS TM1 DEVELOPER 01/25/2024 8:12 AM [facility]GNOS TM1 DEVELOPER Narrative [facility] - 01/25/2024 2:20 PM [facility] TM1 DEVELOPER HGB A1C INTERPRETATION NORMAL: <5.7% PRE-DIABETES: 5.7 - 6.4% DIABETES: 6.5% OR GREATER Scooter Whitley MD CHEMISTRY ORDERABLES Final Re sult [facility] [employer] [facility] CLIA# [id number] [address] [place] [address] from Last 3 Months or Most Recently Relevant to Health Maintenance Insurance MEDICAID [place] [facility] Advance Directives For more information, please contact: [phone] * Full Code (Latest Code Status on File) Date Activated Date Inactivated Comments 01/24/2024 11:01 PM 01/28/2024 4:29 PM
--- OUTSIDE RECORDS SUMMARY | 2024-12-03 01:27 | XMS_ITS | Encounter Summary ---
Author Organization [facility] Address [address] [place] [address] Phone Care Team Providers Care Offset Platemaker Name Role Phone Jackeline Dimas BODY AND FRAME MAN, ELASTIC ATTACHER CHAINSTITCH Primary Care Provider Fiona Martinez WEBFOCUS DEVELOPER Unavailable Unavailab Phil Ellis MD Unavailable [phone] Rajiv Mccormack NP Unavailable Unavailable Renita Quezada RN Unavailable Unavailable Alize Acosta BODY AND FRAME MAN, ELASTIC ATTACHER CHAINSTITCH Unavailable [phone] Dayo Chaney MD Unavailable Juanita Hauser RN Unavailable Unavaila David Martinez MD Unavailable Emilia Tang MD Primary Care Provider [phone] Maurilio Farley MD Unavailable Candida Turner MD Unavailable Rebeka Trinidad MD Primary Care Provider + [phone] Dom Quiñonez MD Unavailable Rachelle Nava BODY AND FRAME MAN, PLANT CHANGER Unavailable + [phone] Irais Naylor BODY AND FRAME MAN, ELASTIC ATTACHER CHAINSTITCH Unavailable + [phone] AhmetAngélica morrismando Littlejohn BODY AND FRAME MAN, ELASTIC ATTACHER CHAINSTITCH Primary Care Provider [phone] Rebeka Trinidad MD Primary Care Provider [phone] Lorri Leo BODY AND FRAME MAN, ELASTIC ATTACHER CHAINSTITCH Primary Care Provider [phone] Sharri Gaspar MD Unavailable aTni Biggs [facility] Primary Care Provider + [phone] Amber Aldrich BODY AND FRAME MAN, ELASTIC ATTACHER CHAINSTITCH Unavailable Reason for Visit * Reason Comments Medication Refill Encounter Details Date Type Department Care Team (Late st Contact Info) Description 09/25/2020 Refill [facility] - Primary Care - [place] [address] [place] [address] Jackeline Dimas, BODY AND FRAME MAN, [facility] [address] [place] [address] Medication Refill Social History Tobacco [...] 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 on 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 Not [...] was discontinued on 08/24/2020 by Jackeline Dimas, [employer]UP, ELASTIC ATTACHER CHAINSTITCH for the following reason: Alternate therapy documented in this encounter Plan of Treatment Upcoming Encounters Date Type Department Care Team (Late st Contact Info) Description 12/10/2024 2:40 PM CDT Telemedicine [facility] [address] [place] [address] 01/03/2025 11:30 AM CDT Office Visit [facility] - Neurology - [place] [place] [address] Rachelle Nava APRN, PLANT CHANGER [address] [place] [address] 02/11/2025 2:00 PM CORPORATE COMPLIANCE OFFICER Telemedicine [facility] [address] [place] [address] 02/16/2025 2:00 PM CORPORATE COMPLIANCE OFFICER Telemedicine [facility] [address] [address] Alize Acosta, BODY AND FRAME MAN, ELASTIC ATTACHER CHAINSTITCH [address] [place] [address] 02/21/2025 3:45 PM CORPORATE COMPLIANCE OFFICER Office Visit [facility] - Endocrinology - [address] [place] [phone] David [place] MD [address] [phone] 03/04/2025 3:10 PM CORPORATE COMPLIANCE OFFICER [facility] [place] [address] [place] [phone] 03/04/2025 3:30 PM CORPORATE COMPLIANCE OFFICER Office Visit [facility] - Primary Care - [place] [address] [place] [phone] Tani Biggs, PAC [address] [place] [phone] 03/17/2025 1:30 PM CORPORATE COMPLIANCE OFFICER Lab [facility] [address] [place] [phone] Melony Asif Stacey, [facility] [address] [place] [address] Discharge Disposition: Discharged to home or Selfcare 03/25/2025 1:20 PM CORPORATE COMPLIANCE OFFICER Office Visit [facility] [address] [place] [phone] Melony Asif Stacey, [facility] [address] [place] [address] Discharge Disposition: Discharged to home or Selfcare 04/25/2025 2:00 PM CORPORATE COMPLIANCE OFFICER Office Visit [facility] - Cardiology - [address] [place] [phone] Laisha Griffin, DO [address] [address] 07/18/2025 1:00 PM CDT Office Visit [facility] - Pulmonology & Sleep Medicine - [address] [place] [phone] Dom Quiñonez MD [address] [place] [phone] documented as of this encounter Visit Diagnoses Diagnosis Hypertension, essential Unspecified essential hypertension documented in this encounter Additional Health Concerns Infection Onset Date Last Indicated Resolved Time COVID - 19 01/08/2021 01/08/2021 01/28/2021 12:1 6 AM CORPORATE COMPLIANCE OFFICER COVID - 19 03/12/2021 03/12/2021 04/01/2021 12:1 6 AM CORPORATE COMPLIANCE OFFICER COVID - 19 12/15/2021 12/15/2021 12/15/2021 7:26 PM CDT COVID - 19 Confirmed 12/15/2021 12/15/2021 022 12:16 AM CDT COVID - 19 04/18/2024 04/18/2024 04/18/2024 10:4 7 PM CORPORATE COMPLIANCE OFFICER Respiratory Rule-Out 05/06/2024 05/06/2024 025 9:20 AM CORPORATE COMPLIANCE OFFICER COVID - 19 05/06/2024 05/06/2024 05/06/2024 9:19 AM CORPORATE COMPLIANCE OFFICER Assessment Noted Time PHQ-9 Depression Total Score: 0 09/01/19 11:58 AM CDT documented as of this encounter Care Teams Offset Platemaker Relationship Specialty Start Date End Date Jackeline Dimas APRN, ELASTIC ATTACHER CHAINSTITCH [address] [place] [id number] PCP - General Advanced Practice Nurse 07/31/17 Emilia Tang MD [address] [place] [id number] PCP - General Family Medicine 06/07/22 03/25/23 Rebeka Trinidad MD [address] [place] [id number] PCP - General Family Medicine 03/26/23 03/29/24 Lorri Leo APRN, ELASTIC ATTACHER CHAINSTITCH [address] [place] [id number] PCP - General Certified Nurse Practitioner 03/30/24 04/20/24 Rebeka Trinidad MD [address] [place], [place] [id number] PCP - General Family Medicine 04/21/24 04/21/24 Lorri Leo APRN, ELASTIC ATTACHER CHAINSTITCH [address] [place], [place] [id number] PCP - General Certified Nurse Practitioner 04/22/24 05/30/24 Tani Biggs, PAC [address] [place] [phone] PCP - General Physician Platen Builder Up 05/31/24 Fiona Martinez LSW [place] Fire Supervisor 03/01/21 08/23/21 Phil Jacobo MD [address] [place] [phone] Consulting Physician Neurology 03/07/21 Rajiv Mccormack, KELI [address] [place] [address] Nurse Practitioner Gastroenterology 03/07/21 Renita Quezada RN [place] Fire Supervisor 05/09/21 08/23/21 Alize Acosta APRN, ELASTIC ATTACHER CHAINSTITCH [address] [place] [address] [facility] ([facility]) COOKER SYRUP Advanced Practice Nurse 08/30/21 Dayo hCaney MD [address] [place] [address] Review Consultant Cardiovascular Disease - Cardiology 09/20/21 02/12/24 Juanita Mercado RN [place] Registered Nurse Cardiology 12/24/21 02/12/24 David [place] MD [address] [phone] Consulting Physician Endocrinology 01/15/22 Maurilio Farley MD [address] [address] Consulting Physician Colon and Rectal Surgery 09/20/22 PhysicianCandida MD [address] [place] [address] Family Medicine 01/25/22 03/18/23 Dom Quiñonez MD [address] [place] [phone] Consulting Physician Pulmonary Disease 11/19/21 Rachelle Nava APRN, PLANT CHANGER [address] [place] [address] Nurse Practitioner Advanced Practice Nurse 07/19/22 Irais Naylor APRN, ELASTIC ATTACHER CHAINSTITCH [address] [address] Nurse Practitioner Cardiology 06/27/23 07/29/24 Sharri Gaspar MD [address] [address] Consulting Physician Cardiology 04/26/24 Amber Aldrich APRN, ELASTIC ATTACHER CHAINSTITCH [address] [place] [phone] Nurse Practitioner Cardiology 07/30/24 documented as of this encounter
--- OUTSIDE RECORDS SUMMARY | 2024-12-03 01:27 | XMS_ITS | Data Portability ---
Author Organization [facility] GURJITGildardo Address [address] [place] [address] Assessment No assessment recorded. Plan of Treatment Reminders Order Date Submit Date Provider Last Modified By Organization Details Last Modified Time Details Appointments None recorded. Lab biopsy, endometrial 2022 023 [facility], [address], [address] [address], [place], [address], 3 12:07:56 test, urine 2022 023 [email or web address] In-Office Order, Internal Use Only DO Not Attach Compendium DO Not Attach Compendium, Do Not Delete/merge, [id number] 3 12:07:52 cytology report, thin prep, smear or scraping, cervical or vaginal - cervical and endocervica l. [place] and broom 2022 023 [facility], [address] [place] [address], [address], [place], [address], 3 11:15:42 TSH + free T4, serum 2022 023 [facility], [address] [place] [address], [address], [place], [address], 3 11:14:06 prolactin, serum 2022 023 [facility], [address] [place] [address], [address], [place], [address], 3 11:14:07 test, urine 2022 023 [email or web address] In-Office Order, Internal Use Only DO Not Attach Compendium DO Not Attach Compendium, Do Not Delete/merge, [id number] 3 09:37:07 Referral gynecologis t referral 2022 [facility], [address] [place], [address], 3 12:10:15 Procedures None recorded. Surgeries None recorded. Imaging US, breast, unilateral - inner lower quadrant 2022 [facility] ([facility]) Scheduling, [address] [place], [address], 3 16:58:35 MAMMO, diagnostic, tomosynthes is, bilateral 2022 [facility] ([facility]) Scheduling, [address] [place], [address], 16:54:06 Medication Orders None recorded. Patient TargetsNo targets recorded. 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 Not Available [facility] ([facility]) [address] [facility], [place], [address], 01/09/2023 11:15:42 01/07/2001/07/2023 IGP,C TNGTV ,APT HPV,R FX16/ 18,45 chlamydia, nuc. acid amp Negati ve negati ve Not Available [facility] ([facility]) [address] [place], [address], 01/09/2023 11:15:42 01/07/2001/07/2023 IGP,C TNGTV ,APT HPV,R FX16/ 18,45 gonococcus, nuc. acid amp Negati ve negati ve Not Available [facility] ([facility]) [address] [facility], [place], [address], 01/09/2023 11:15:42 01/07/2001/07/2023 IGP,C TNGTV ,APT HPV,R FX16/ 18,45 trich vag by GWENDOLYN Negati ve negati ve Not Available [facility] ([facility]) [address] [place], [address], 01/09/2023 11:15:42 01/07/2001/09/2023 IGP,C TNGTV ,APT HPV,R FX16/ 18,45 diagnosis: Commen t NEGAT ALEC FOR INTRA EPITH ELIAL LESIO N OR MALIG RICHARD . Not Available [facility] ([facility]) [address] [place], [address], 01/09/2023 11:15:42 10/30/20 23 01/09/2023 IGP,C TNGTV ,APT HPV,R FX16/ 18,45 specimen adequacy: Alex tobar Satis facto ry for evalu ation . No endoc ervic al compo nent is ident ified . Not Available [facility] ([facility]) [address] [facility], [place], [address], 01/09/2023 11:15:42 01/07/2001/09/2023 IGP,C TNGTV ,APT HPV,R FX16/ 18,45 clinician provided ICD10: Alex tobar N95.0 Z01.4 19 Not Available [facility] ([facility]) [address] [facility], [place], [address], 01/09/2023 11:15:42 01/07/2001/09/2023 IGP,C TNGTV ,APT HPV,R FX16/ 18,45 performed by: Alex luu, Trista tobar (ASCP ) Not Available [facility] ([facility]) [address] [facility], [place], [address], 01/09/2023 11:15:42 01/07/20 23 01/09/2023 IGP,C TNGTV ,APT HPV,R FX16/ 18,45 . . Not Available [facility] ([facility]) [address] [place], [address], 01/09/2023 11:15:42 01/07/2001/09/2023 IGP,C TNGTV ,APT HPV,R FX16/ 18,45 note: Alex tobar The Pap smear is a scree nguyễn test desig lia to aid in the detec tion of karine ligna nt and malig nant condi tions of the uteri ne cervi x. It is not a diagn ostic proce dure and shoul d not be used as the sole means of detec ting cervi nara cance r. Both false -posi tive and false -nega tive repor ts do occur . Not Available [facility] ([facility]) [address] [facility], [place], [address], 01/09/2023 11:15:42 01/07/20 23 01/09/2023 IGP,C TNGTV ,APT HPV,R FX16/ 18,45 test methodology: Commen t This liqui d based ThinP rep(R ) pap test was kimberly fitzgerald with the use of an image guide kailey segura Not Available [facility] ([facility]) [address] [facility], [place], [address], 01/09/2023 11:15:42 01/07/20 23 01/09/2023 IGP,C TNGTV ,APT HPV,R FX16/ 18,45 HPV genotype reflex Commen t Crite conchita not met, HPV Genot ype not perfo rmed. Not Available [facility] ([facility]) [address] [facility], [place], [address], 01/09/2023 11:15:42 01/07/20 23 01/06/2023 pregn huber test, urine HCG negati ve Not Available In-Office Order Internal Use Only DO Not Attach Compendium DO Not Attach Compendium, Do Not Delete/merge, [id number] 01/06/2023 09:37:01 01/22/2001/22/2023 TSH+F REE T4 TSH 2.210 uIU/m L 0.450- 4.500 Not Available [facility] ([facility]) [address] [place], [address], 01/22/2023 11:14:06 01/22/2001/22/2023 TSH+F REE T4 T4,free(dire ct) 1.40 NG/dL 0.82-1 .77 Not Available [facility] ([facility]) [address] [place], [address], 01/22/2023 11:14:06 01/22/20 23 01/22/2023 PROLA CTIN prolactin 46.0 NG/mL 4.8-23 .3 above high normal Not Available [facility] ([facility]) [address] [facility], [place], [address], 01/22/2023 11:14:07 01/22/2001/24/2023 PATHO LOGY REPOR T . Commen t Mater ial submi tted: . endom etriu m - ENDOM ETRIA L BIOPS Y Not Available [facility] ([facility]) [address] [facility], [place], [address], 01/24/2023 16:13:40 01/22/2001/24/2023 PATHO LOGY REPOR T . Commen t Diagn osis: ENDOM ETRIA L BIOPS Y: ATROP HIC ENDOM ETRIU M. NO HYPER PLASI A OR CARCI NOMA. NDA 01/24 1224 Local Not Available [facility] ([facility]) [address] [facility], [place], [address], 01/24/2023 16:13:40 01/22/2001/24/2023 PATHO LOGY REPOR T . Commen t Albino barrientos d: . [facility], Patho logis t Not Available [facility] ([facility]) [address] [facility], [place], [address], 01/24/2023 16:13:40 01/22/2001/24/2023 PATHO LOGY REPOR T . Commsang t Gross descr iptio n: . 1 Conta iner, forma toyin-f illed , label ed with patie nt ident ifica tion. ENDOM ETRIA L BIOPS Y: MULTI PLE FRAGM ENT(S ) OF SOFT MATER IAL, BLOOD , AND MUCUS MEASU RING 1.5 X 0.1 X 0.1 CM IN AGGRE GATE. FILTE RED AND SUBMI TTED IN CASSE TTE(S ) A1. ROB/D RA 01/23 0142 Local Not Available [facility] ([facility]) [address] [facility], [place], [address], 01/24/2023 16:13:40 01/22/20 23 01/24/2023 PATHO LOGY REPOR T . Alex t Patho logis t provi ded ICD-1 0: N85.8 Not Available [facility] ([facility]) [address] [facility], [place], [address], 01/24/2023 16:13:40 01/22/20 23 01/24/2023 PATHO LOGY REPOR T . Alex tobar CPT . 06434 1 Not Available [facility] ([facility]) [address] [facility], [place], [address], 01/24/2023 16:13:40 01/22/20 23 01/21/2023 pregn huber test, urine HCG negati ve Not Available In-Office Order Internal Use Only DO Not Attach Compendium DO Not Attach Compendium, Do Not Delete/merge, [id number] 01/21/2023 11:39:42 11/14/1911/14/2023 Cobal beavers (Silva min B12) [Mass /volu me] in Serum or Plasm a cobalamin (vitamin B12) [mass/volume ] in serum or plasma 411 pg/mL low: 213pg/ mLhigh : 816pg/ mL Not Available Not Available 08/25/2024 13:31:57 11/14/19 24 11/14/2023 Cobal beavers (Silva min B12) [Mass /volu me] in Serum or Plasm a interpretati on and review of laboratory results Normal Not Available Not Available 08/08 13:31:57 11/14/19 24 11/14/2023 Barbara tin [Mass /volu me] in Serum or Plasm a ferritin [mass/volume ] in serum or plasma 36 NG/mL low: 5NG/mL high: 204NG/ mL Not Available Not Available 08/25/2024 13:31:57 11/14/19 24 11/14/2023 Barbara tin [Mass /volu me] in Serum or Plasm a interpretati on and review of laboratory results Normal Not Available Not Available 08/08 13:31:57 11/14/19 24 11/14/2023 Iron panel - Serum or Plasm a iron [mass/volume ] in serum or plasma 97 text: 25 - 156 mcg/dL Not Available Not Available 08/25/2024 13:31:57 11/14/19 24 11/14/2023 Iron panel - Serum or Plasm a transferrin [mass/volume ] in serum or plasma 273 mg/dL low: 180mg/ dLhigh : 382mg/ dL Not Available Not Available 08/25/2024 13:31:57 11/14/19 24 11/14/2023 Iron panel - Serum or Plasm a iron binding capacity [mass/volume ] in serum or plasma 341 text: 265 - 497 mcg/dL Not Available Not Available 08/25/2024 13:31:57 11/14/19 24 11/14/2023 Iron panel - Serum or Plasm a iron saturation [mass fraction] in serum or plasma 28 % low: 15%hig h: 62% Not Available Not Available 08/25/2024 13:31:57 11/14/19 24 11/14/2023 Iron panel - Serum or Plasm a interpretati on and review of laboratory results Normal Not Available Not Available 08/08 13:31:57 11/14/19 24 11/14/2023 Folat e [Mass /volu me] in Serum or Plasm a folate [mass/volume ] in serum or plasma 8.5 NG/mL low: 7NG/mL high: 31.4NG /mL Not Available Not Available 08/25/2024 13:31:57 11/14/19 24 11/14/2023 Folat e [Mass /volu me] in Serum or Plasm a thermoactino myces vulgaris IgG Ab [mass/volume ] in serum No Not Available Not Available 0 08/25/2024 13:31:57 01/24/20 24 01/24/2024 Lacta te [Mole s/vol ume] in Serum or Plasm a lactate [moles/volum e] in serum or plasma 2.2 mmol/ L low: 0.7mmo l/Lhig h: 2mmol/ L high Not Available Not Available 08/25/2024 13:31:55 01/24/20 24 01/24/2024 Lacta te [Mole s/vol ume] in Serum or Plasm a interpretati on and review of laboratory results Abnorm al Not Available Not Available 13:31:55 01/24/20 24 01/24/2024 Blood type and Cross match panel - Blood ABO group [type] in blood O Not Available Not Available 08/08 13:31:55 01/24/20 24 01/24/2024 Blood type and Cross match panel - Blood Rh [type] in blood Positi ve Not Available Not Available 13:31:55 01/24/20 24 01/24/2024 Blood type and Cross match panel - Blood blood group antibody screen [presence] in serum or plasma Negati ve Not Available Not Available 13:31:55 01/24/20 24 01/29/2024 Bacte conchita ident ified in Blood by Cultu re bacteria identified in blood by culture NO GROWTH WITHIN 5 DAYS, FINAL RESULT Not Available Not Available 13:31:55 01/24/20 24 01/24/2024 Fibri n D-dim er FEU [Mass /volu me] in Plate let poor plasm a fibrin D-dimer feu [mass/volume ] in platelet poor plasma text: <0.50 mcg/mL feu Not Available Not Available 08/25/2024 13:31:55 01/24/20 24 01/24/2024 Fibri n D-dim er FEU [Mass /volu me] in Plate let poor plasm a Unknown Analyte The FDA has approv ed this method to exclud e the diagno sis of DVT and/or PE at the cutoff value of <0.50 mcg/mL FEU. Not Available Not Available 13:31:55 01/24/2001/24/2024 Fibri n D-dim er FEU [Mass /volu me] in Plate let poor plasm a interpretati on and review of laboratory results Normal Not Available Not Available 08/08 13:31:55 01/24/20 24 01/24/2024 CBC W Auto Diffe renti al panel - Blood leukocytes [#/volume] in blood by automated count 11.9 text: 4.00 - 12.00 10(3)/ mcL Not Available Not Available 08/25/2024 13:31:55 01/24/2001/24/2024 CBC W Auto Diffe renti al panel - Blood erythrocytes [#/volume] in blood by automated count 2.21 text: 3.80 - 5.30 10(6)/ mcL low Not Available Not Available 08/25/2024 13:31:55 01/24/20 24 01/24/2024 CBC W Auto Diffe renti al panel - Blood hemoglobin [mass/volume ] in blood 5.4 g/dL low: 12g/dL high: 15.8g/ dL critical low Not Available Not Available 08/25/2024 13:31:55 01/24/20 24 01/24/2024 CBC W Auto Diffe renti al panel - Blood hematocrit [volume fraction] of blood by automated count 17.4 % low: 36%hig h: 47% low Not Available Not Available 08/25/2024 13:31:55 01/24/20 24 01/24/2024 CBC W Auto Diffe renti al panel - Blood MCV [entitic mean volume] in red blood cells by automated count 78.7 fL low: 82fLhi gh: 96fL low Not Available Not Available 08/25/2024 13:31:55 01/24/20 24 01/24/2024 CBC W Auto Diffe renti al panel - Blood MCH [entitic mass] by automated count 24.4 pg low: 26pghi gh: 34pg low Not Available Not Available 08/25/2024 13:31:55 01/24/20 24 01/24/2024 CBC W Auto Diffe renti al panel - Blood MCHC [entitic mass/volume] in red blood cells by automated count 31 g/dL low: 31g/dL high: 36g/dL Not Available Not Available 08/25/2024 13:31:55 01/24/20 24 01/24/2024 CBC W Auto Diffe renti al panel - Blood platelets [#/volume] in blood 270 text: 140 - 440 10(3)/ mcL Not Available Not Available 08/25/2024 13:31:55 01/24/20 24 01/24/2024 CBC W Auto Diffe renti al panel - Blood erythrocyte [distwidth] in red blood cells by automated count 18.7 % low: 11.8%h igh: 15.5% high Not Available Not Available 08/25/2024 13:31:55 01/24/20 24 01/24/2024 CBC W Auto Diffe renti al panel - Blood platelet [entitic mean volume] in blood by automated count 10.7 fL low: 9.7fLh igh: 12.4fL Not Available Not Available 08/25/2024 13:31:55 01/24/20 24 01/24/2024 CBC W Auto Diffe renti al panel - Blood neutrophils/ leukocytes in blood by automated count 70.1 % low: 47%hig h: 73% Not Available Not Available 08/25/2024 13:31:55 01/24/20 24 01/24/2024 CBC W Auto Diffe renti al panel - Blood lymphocytes/ leukocytes in blood by automated count 23.5 % low: 18%hig h: 42% Not Available Not Available 08/25/2024 13:31:55 01/24/20 24 01/24/2024 CBC W Auto Diffe renti al panel - Blood monocytes/le ukocytes in blood by automated count 5 % low: 4%high : 12% Not Available Not Available 08/25/2024 13:31:55 01/24/20 24 01/24/2024 CBC W Auto Diffe renti al panel - Blood eosinophils/ leukocytes in blood by automated count 1 % low: 0%high : 5% Not Available Not Available 08/25/2024 13:31:55 01/24/20 24 01/24/2024 CBC W Auto Diffe renti al panel - Blood basophils/le ukocytes in blood by automated count 0.4 % low: 0%high : 1% Not Available Not Available 08/25/2024 13:31:55 01/24/2001/24/2024 CBC W Auto Diffe renti al panel - Blood neutrophils [#/volume] in blood by automated count 8.34 text: 1.60 - 7.70 10(3)/ mcL high Not Available Not Available 08/25/2024 13:31:55 01/24/20 24 01/24/2024 CBC W Auto Diffe renti al panel - Blood lymphocytes [#/volume] in blood by automated count 2.8 text: 1.30 - 3.20 10(3)/ mcL Not Available Not Available 08/25/2024 13:31:55 01/24/20 24 01/24/2024 CBC W Auto Diffe renti al panel - Blood monocytes [#/volume] in blood by automated count 0.59 text: 0.20 - 1.00 10(3)/ mcL Not Available Not Available 08/25/2024 13:31:55 01/24/20 24 01/24/2024 CBC W Auto Diffe renti al panel - Blood eosinophils [#/volume] in blood by automated count 0.12 text: 0.00 - 0.40 10(3)/ mcL Not Available Not Available 08/25/2024 13:31:55 01/24/20 24 01/24/2024 CBC W Auto Diffe renti al panel - Blood basophils [#/volume] in blood by automated count 0.05 text: 0.00 - 0.10 10(3)/ mcL Not Available Not Available 08/25/2024 13:31:55 01/24/20 24 01/24/2024 CBC W Auto Diffe renti al panel - Blood nucleated erythrocytes /leukocytes [ratio] in blood 0 Not Available Not Available 08/08 13:31:55 01/24/20 24 01/24/2024 CBC W Auto Diffe renti al panel - Blood job service consultant review of results Yes Not Available Not Available 08/08 13:31:55 01/24/20 24 01/24/2024 CBC W Auto Diffe renti al panel - Blood poikilocytos is [presence] in blood by light microscopy 1+ Not Available Not Available 0 08/25/2024 13:31:55 01/24/20 24 01/24/2024 CBC W Auto Diffe renti al panel - Blood target cells [presence] in blood by light microscopy Presen t Not Available Not Available 13:31:55 01/24/20 24 01/24/2024 CBC W Auto Diffe renti al panel - Blood ovalocytes [presence] in blood by light microscopy Presen t Not Available Not Available 13:31:55 01/24/20 24 01/24/2024 CBC W Auto Diffe renti al panel - Blood polychromasi a [presence] in blood by light microscopy 1+ Not Available Not Available 0 08/25/2024 13:31:55 01/24/20 24 01/24/2024 CBC W Auto Diffe renti al panel - Blood interpretati on and review of laboratory results Abnorm al Not Available Not Available 13:31:55 01/24/20 24 01/24/2024 Lipas e [Enzy matic activ ity/v olume ] in Serum or Plasm a lipase [enzymatic activity/vol ume] in serum or plasma 26 U/L low: 8U/Lhi gh: 78U/L Not Available Not Available 08/25/2024 13:31:55 01/24/20 24 01/24/2024 Lipas e [Enzy matic activ ity/v olume ] in Serum or Plasm a interpretati on and review of laboratory results Normal Not Available Not Available 08/08 13:31:55 01/24/20 24 01/24/2024 Compr ehens alec metab olic 1999 panel - Serum or Plasm a sodium [moles/volum e] in serum or plasma 137 mmol/ L low: 136mmo l/Lhig h: 145mmo l/L Not Available Not Available 08/25/2024 13:31:55 01/24/20 24 01/24/2024 Compr ehens alec metab olic 2000 panel - Serum or Plasm a potassium [moles/volum e] in serum or plasma 4.1 mmol/ L low: 3.5mmo l/Lhig h: 5.1mmo l/L Not Available Not Available 08/25/2024 13:31:55 01/24/20 24 01/24/2024 [facility] [employer] olic 1999 panel - Serum or Plasm a chloride [moles/volum e] in serum or plasma 110 mmol/ L low: 98mmol /Lhigh : 107mmo l/L high Not Available Not Available 08/25/2024 13:31:55 01/24/20 24 01/24/2024 [facility] [employer] olic 1999 panel - Serum or Plasm a carbon dioxide, total [moles/volum e] in serum or plasma 15 mmol/ L low: 22mmol /Lhigh : 30mmol /L low Not Available Not Available 08/25/2024 13:31:55 01/24/20 24 01/24/2024 [facility] [employer] ic 1999 panel - Serum or Plasm a anion gap in serum or plasma by calculation 16.1 mmol/ L high: 18mmol /L Not Available Not Available 08/25/2024 13:31:55 01/24/20 24 01/24/2024 [facility] [employer] [facility] 1999 panel - Serum or Plasm a glucose [mass/volume ] in serum or plasma 312 mg/dL low: 70mg/d Lhigh: 99mg/d L high Not Available Not Available 08/25/2024 13:31:55 01/24/20 24 01/24/2024 [facility] [employer] ic 1999 panel - Serum or Plasm a urea nitrogen [mass/volume ] in serum or plasma 46 mg/dL low: 10mg/d Lhigh: 20mg/d L high Not Available Not Available 08/25/2024 13:31:55 01/24/20 24 01/24/2024 [facility] [employer] ic 1999 panel - Serum or Plasm a creatinine [mass/volume ] in serum or plasma 1.08 mg/dL low: 0.6mg/ dLhigh : 1mg/dL high Not Available Not Available 08/25/2024 13:31:55 01/24/20 24 01/24/2024 [facility] [employer] olic 1999 panel - Serum or Plasm a urea nitrogen/cre atinine [mass ratio] in serum or plasma 43 text: 12 - 20 ratio high Not Available Not Available 08/25/2024 13:31:55 01/24/20 24 01/24/2024 [facility] [employer] [facility] 1999 panel - Serum or Plasm a protein [mass/volume ] in serum or plasma 5.4 g/dL low: 6.3g/d Lhigh: 8.2g/d L low Not Available Not Available 08/25/2024 13:31:55 01/24/20 24 01/24/2024 [facility] 1999 panel - Serum or Plasm a albumin [mass/volume ] in serum or plasma 3 g/dL low: 3.5g/d Lhigh: 5g/dL low Not Available Not Available 08/25/2024 13:31:55 01/24/20 24 01/24/2024 [facility] [employer] [facility] 1999 panel - Serum or Plasm a albumin/glob ulin [mass ratio] in serum or plasma 1.3 low: 1high: 2.2 Not Available Not Available 08/25/2024 13:31:55 01/24/20 24 01/24/2024 [facility] 1999 panel - Serum or Plasm a calcium [mass/volume ] in serum or plasma 9 mg/dL low: 8.7mg/ dLhigh : 10.5mg /dL Not Available Not Available 08/25/2024 13:31:55 01/24/20 24 01/24/2024 [facility] 1999 panel - Serum or Plasm a bilirubin.to christian [mass/volume ] in serum or plasma 0.2 mg/dL low: 0.2mg/ dLhigh : 1.2mg/ dL Not Available Not Available 08/25/2024 13:31:55 01/24/20 24 01/24/2024 [facility] [employer] [facility] 1999 panel - Serum or Plasm a aspartate aminotransfe rase [enzymatic activity/vol ume] in serum or plasma 9 U/L low: 5U/Lhi gh: 34U/L Not Available Not Available 08/25/2024 13:31:55 01/24/20 24 01/24/2024 [facility] [employer] [facility] 1999 panel - Serum or Plasm a alanine aminotransfe rase [enzymatic activity/vol ume] in serum or plasma 6 U/L low: 0U/Lhi gh: 55U/L Not Available Not Available 08/25/2024 13:31:55 01/24/20 24 01/24/2024 Compr ehens alec metab olic 1999 panel - Serum or Plasm a alkaline phosphatase [enzymatic activity/vol ume] in serum or plasma 52 U/L low: 40U/Lh igh: 150U/L Not Available Not Available 08/25/2024 13:31:55 01/24/20 24 01/24/2024 Compr ehens alec metab olic 1999 panel - Serum or Plasm a glomerular filtration rate [volume rate/area] in serum, plasma or blood by creatinine-b ased formula (MDRD)/1.73 sq M among non black population low: 60 Creat inine Clear ance is the prefe rred crite conchita for selec ting drug dose adjus tment s in renal ly impai red patie nts. The GFR is provi ded as addit ional perti nent clini nara infor matio n. GFR is repor paula in mL/mi n/1.7 3 sq m. Calcu latio n based on the Chron ic Kidne y Disea se Epide miolo gy Colla borat ion (CKD- EPI) equat ion refit witho ut adjus tment for race. Not Available Not Available 08/25/2024 13:31:55 01/24/20 24 01/24/2024 Compr ehens alec metab olic 1999 panel - Serum or Plasm a glomerular filtration rate [volume rate/area] in serum, plasma or blood by creatinine-b ased formula (MDRD)/1.73 sq M among black population low: 60 Not Available Not Available 08/25/2024 13:31:55 01/24/20 24 01/24/2024 Compr ehens alec metab olic 1999 panel - Serum or Plasm a glomerular filtration rate [volume rate/area] in serum, plasma or blood by creatinine-b ased formula (MDRD)/1.73 sq M among non black population 53 low: 60 low Not Available Not Available 08/25/2024 13:31:55 01/24/20 24 01/24/2024 Compr ehens alec metab olic 2000 panel - Serum or Plasm a interpretati on and review of laboratory results Abnorm al Not Available Not Available 13:31:55 06/05/19 25 06/04/2024 Iron panel - Serum or Plasm a iron [mass/volume ] in serum or plasma 59 text: 25 - 156 mcg/dL Not Available Not Available 08/25/2024 13:31:22 06/05/19 25 06/04/2024 Iron panel - Serum or Plasm a transferrin [mass/volume ] in serum or plasma 304 mg/dL low: 180mg/ dLhigh : 382mg/ dL Not Available Not Available 08/25/2024 13:31:22 06/05/19 25 06/04/2024 Iron panel - Serum or Plasm a iron binding capacity [mass/volume ] in serum or plasma 380 text: 265 - 497 mcg/dL Not Available Not Available 08/25/2024 13:31:22 06/05/19 25 06/04/2024 Iron panel - Serum or Plasm a iron saturation [mass fraction] in serum or plasma 16 % low: 15%hig h: 62% Not Available Not Available 08/25/2024 13:31:22 06/05/19 25 06/04/2024 Iron panel - Serum or Plasm a interpretati on and review of laboratory results Normal Not Available Not Available 08/08 13:31:22 06/05/19 25 06/08/2024 Eryth ropoi etin (EPO) [Unit s/vol ume] in Serum or Plasm a erythropoiet in (epo) [units/volum e] in serum or plasma 24.3 text: 2.6 - 18.5 mIU/mL high Test Perfo rmed by: [facility] [place] [address] , [place] [address] Lab Direc tor: Cameron Castellano nn Ph.D. ; CLIA# [id number] Not Available Not Available 08/25/2024 13:31:22 06/05/19 25 06/08/2024 Eryth ropoi etin (EPO) [Unit s/vol ume] in Serum or Plasm a interpretati on and review of laboratory results Abnorm al Not Available Not Available 13:31:22 06/05/19 25 06/07/2024 Immun oglob ulin light chain s.eben e panel - Serum kappa light chains.free [mass/volume ] in serum 33.1 mg/L low: 3.3mg/ Lhigh: 19.4mg /L high Not Available Not Available 08/25/2024 13:31:22 06/05/19 25 06/07/2024 Immun oglob ulin light chain s.eben e panel - Serum lambda light chains.free [mass/volume ] in serum or plasma 33 mg/L low: 5.71mg /Lhigh : 26.3mg /L high Not Available Not Available 08/25/2024 13:31:22 06/05/19 25 06/07/2024 Immun oglob ulin light chain s.eben e panel - Serum kappa light chains.free/ lambda light chains.free [mass ratio] in serum 1 low: 0.26hi gh: 1.65 Not Available Not Available 08/25/2024 13:31:22 06/05/19 25 06/07/2024 Immun oglob ulin light chain s.eben e panel - Serum interpretati on and review of laboratory results Abnorm al Not Available Not Available 13:31:22 06/05/19 25 06/04/2024 Cobal beavers (Silva min B12) [Mass /volu me] in Serum or Plasm a cobalamin (vitamin B12) [mass/volume ] in serum or plasma 493 pg/mL low: 213pg/ mLhigh : 816pg/ mL Not Available Not Available 08/25/2024 13:31:22 06/05/19 25 06/04/2024 Cobal beavers (Silva min B12) [Mass /volu me] in Serum or Plasm a interpretati on and review of laboratory results Normal Not Available Not Available 08/08 13:31:22 06/05/19 25 06/04/2024 Lacta te dehyd rogen ase [Enzy matic activ ity/v olume ] in Serum or Plasm a by Lacta te to pyruv ate react ion lactate dehydrogenas e [enzymatic activity/vol ume] in serum or plasma by lactate to pyruvate reaction 200 U/L low: 125U/L high: 220U/L Not Available Not Available 08/25/2024 13:31:22 06/05/19 25 06/04/2024 Lacta te dehyd rogen ase [Enzy matic activ ity/v olume ] in Serum or Plasm a by Lacta te to pyruv ate react ion interpretati on and review of laboratory results Normal Not Available Not Available 08/08 13:31:22 06/05/19 25 06/07/2024 Prote in elect ropho resis and Immun oglob ulins panel - Serum protein [mass/volume ] in serum or plasma 7 g/dL low: 6g/dLh igh: 8g/dL Not Available Not Available 08/25/2024 13:31:21 06/05/19 25 06/07/2024 Prote in elect ropho resis and Immun oglob ulins panel - Serum albumin/prot ein.total in serum or plasma by electrophore sis 50.7 % low: 55.8%h igh: 66.7% low Not Available Not Available 08/25/2024 13:31:21 06/05/19 25 06/07/2024 Prote in elect ropho resis and Immun oglob ulins panel - Serum albumin [mass/volume ] in serum or plasma by electrophore sis 3.6 g/dL low: 2.5g/d Lhigh: 5.4g/d L Not Available Not Available 08/25/2024 13:31:21 06/05/19 25 06/07/2024 Prote in elect ropho resis and Immun oglob ulins panel - Serum alpha 1 globulin/pro tein.total in serum or plasma by electrophore sis 3.7 % low: 2.9%hi gh: 4.9% Not Available Not Available 08/25/2024 13:31:21 06/05/19 25 06/07/2024 Prote in elect ropho resis and Immun oglob ulins panel - Serum alpha 1 globulin [mass/volume ] in serum or plasma by electrophore sis 0.3 g/dL low: 0.2g/d Lhigh: 0.4g/d L Not Available Not Available 08/25/2024 13:31:21 06/05/19 25 06/07/2024 Prote in elect ropho resis and Immun oglob ulins panel - Serum alpha 2 globulin/pro tein.total in serum or plasma by electrophore sis 11.4 % low: 7.1%hi gh: 11.8% Not Available Not Available 08/25/2024 13:31:21 06/05/19 25 06/07/2024 Prote in elect ropho resis and Immun oglob ulins panel - Serum alpha 2 globulin [mass/volume ] in serum or plasma by electrophore sis 0.8 g/dL low: 0.5g/d Lhigh: 1g/dL Not Available Not Available 08/25/2024 13:31:21 06/05/19 25 06/07/2024 Prote in elect ropho resis and Immun oglob ulins panel - Serum beta globulin/pro tein.total in serum or plasma by electrophore sis 15.6 % low: 8.4%hi gh: 13.1% high Not Available Not Available 08/25/2024 13:31:21 06/05/19 25 06/07/2024 Prote in elect ropho resis and Immun oglob ulins panel - Serum beta globulin [mass/volume ] in serum or plasma by electrophore sis 1.1 g/dL low: 0.5g/d Lhigh: 1.1g/d L Not Available Not Available 08/25/2024 13:31:21 06/05/19 25 06/07/2024 Prote in elect ropho resis and Immun oglob ulins panel - Serum gamma globulin/pro tein.total in serum or plasma by electrophore sis 18.7 % low: 11.1%h igh: 18.8% Not Available Not Available 08/25/2024 13:31:21 06/05/19 25 06/07/2024 Prote in elect ropho resis and Immun oglob ulins panel - Serum gamma globulin [mass/volume ] in serum or plasma by electrophore sis 1.3 g/dL low: 0.7g/d Lhigh: 1.5g/d L Not Available Not Available 08/25/2024 13:31:21 06/05/19 25 06/07/2024 Prote in elect ropho resis and Immun oglob ulins panel - Serum IgG [mass/volume ] in serum or plasma 1194 mg/dL low: 552mg/ dLhigh : 1631mg /dL Not Available Not Available 08/25/2024 13:31:21 06/05/19 25 06/07/2024 Prote in elect ropho resis and Immun oglob ulins panel - Serum IgA [mass/volume ] in serum or plasma 272 mg/dL low: 65mg/d Lhigh: 421mg/ dL Not Available Not Available 08/25/2024 13:31:21 06/05/19 25 06/07/2024 Prote in elect ropho resis and Immun oglob ulins panel - Serum IgM [mass/volume ] in serum or plasma 146 mg/dL low: 33mg/d Lhigh: 293mg/ dL Not Available Not Available 08/25/2024 13:31:21 06/05/19 25 06/07/2024 Prote in elect ropho resis and Immun oglob ulins panel - Serum protein fractions [interpretat ion] in serum or plasma by immunofixati on No abnorm al protei n band is detect ed by serum protei n electr ophore sis. Serum immuno fixati on electr ophore sis is negati ve for monocl onal immuno globul ins. Review ed by Laura Nicholas, Ph.D. Not Available Not Available 13:31:21 06/05/19 25 06/07/2024 Prote in elect ropho resis and Immun oglob ulins panel - Serum albumin/glob ulin [mass ratio] in serum or plasma by electrophore sis 1 Not Available Not Available 08/08 13:31:21 06/05/19 25 06/07/2024 Prote in elect ropho resis and Immun oglob ulins panel - Serum Unknown Analyte Review ed by Ganga Goins M.D. Not Available Not Available 13:31:21 06/05/19 25 06/07/2024 Prote in elect ropho resis and Immun oglob ulins panel - Serum interpretati on and review of laboratory results Abnorm al Not Available Not Available 13:31:21 06/05/19 25 06/04/2024 Folat e [Mass /volu me] in Serum or Plasm a folate [mass/volume ] in serum or plasma 10 NG/mL low: 7NG/mL high: 31.4NG /mL Not Available Not Available 08/25/2024 13:31:21 06/05/19 25 06/04/2024 Folat e [Mass /volu me] in Serum or Plasm a thermoactino myces vulgaris IgG Ab [mass/volume ] in serum No Not Available Not Available 0 08/25/2024 13:31:21 06/05/19 25 06/04/2024 Barbara tin [Mass /volu me] in Serum or Plasm a ferritin [mass/volume ] in serum or plasma 45 NG/mL low: 5NG/mL high: 204NG/ mL Not Available Not Available 08/25/2024 13:31:21 06/05/19 25 06/04/2024 Barbara tin [Mass /volu me] in Serum or Plasm a interpretati on and review of laboratory results Normal Not Available Not Available 08/08 13:31:21 07/21/19 25 07/20/2024 Thyro xine (T4) free [Mass /volu me] in Serum or Plasm a thyroxine (T4) free [mass/volume ] in serum or plasma 1 NG/dL low: 0.7NG/ dLhigh : 1.9NG/ dL Not Available Not Available 08/25/2024 13:31:22 07/21/19 25 07/20/2024 Thyro xine (T4) free [Mass /volu me] in Serum or Plasm a interpretati on and review of laboratory results Normal Not Available Not Available 08/08 13:31:22 07/21/19 25 07/20/2024 Thyro tropi n [Unit s/vol ume] in Serum or Plasm a thyrotropin [units/volum e] in serum or plasma 1.466 text: 0.300 - 5.000 mIU/L Not Available Not Available 08/25/2024 13:31:22 07/21/19 25 07/20/2024 Thyro tropi n [Unit s/vol ume] in Serum or Plasm a interpretati on and review of laboratory results Normal Not Available Not Available 08/08 13:31:22 08/18/19 25 08/17/2024 Hemog lobin A1c/H emogl obin. total in Blood hemoglobin A1C/hemoglob in.total in blood 8.7 % low: 4%high : 6% abnormal Not Available Not Available 08/25/2024 13:31:22 08/18/19 25 08/17/2024 Hemog lobin A1c/H emogl obin. total in Blood interpretati on and review of laboratory results Abnorm al Not Available Not Available 13:31:22 08/19/19 25 08/18/2024 CBC W Auto Diffe renti al panel - Blood leukocytes [#/volume] in blood by automated count 6.46 text: 4.00 - 12.00 10(3)/ mcL Not Available Not Available 08/25/2024 13:31:22 08/19/19 25 08/18/2024 CBC W Auto Diffe renti al panel - Blood erythrocytes [#/volume] in blood by automated count 5.68 text: 3.80 - 5.30 10(6)/ mcL high Not Available Not Available 08/25/2024 13:31:22 08/19/19 25 08/18/2024 CBC W Auto Diffe renti al panel - Blood hemoglobin [mass/volume ] in blood 13.7 g/dL low: 12g/dL high: 15.8g/ dL Not Available Not Available 08/25/2024 13:31:22 08/19/19 25 08/18/2024 CBC W Auto Diffe renti al panel - Blood hematocrit [volume fraction] of blood by automated count 42.3 % low: 36%hig h: 47% Not Available Not Available 08/25/2024 13:31:22 08/19/19 25 08/18/2024 CBC W Auto Diffe renti al panel - Blood MCV [entitic mean volume] in red blood cells by automated count 74.5 fL low: 82fLhi gh: 96fL low Not Available Not Available 08/25/2024 13:31:22 08/19/19 25 08/18/2024 CBC W Auto Diffe renti al panel - Blood MCH [entitic mass] by automated count 24.1 pg low: 26pghi gh: 34pg low Not Available Not Available 08/25/2024 13:31:22 08/19/19 25 08/18/2024 CBC W Auto Diffe renti al panel - Blood MCHC [entitic mass/volume] in red blood cells by automated count 32.4 g/dL low: 31g/dL high: 36g/dL Not Available Not Available 08/25/2024 13:31:22 08/19/19 25 08/18/2024 CBC W Auto Diffe renti al panel - Blood platelets [#/volume] in blood 207 text: 140 - 440 10(3)/ mcL Not Available Not Available 08/25/2024 13:31:22 08/19/19 25 08/18/2024 CBC W Auto Diffe renti al panel - Blood erythrocyte [distwidth] in red blood cells by automated count 16.9 % low: 11.8%h igh: 15.5% high Not Available Not Available 08/25/2024 13:31:22 08/19/19 25 08/18/2024 CBC W Auto Diffe renti al panel - Blood platelet [entitic mean volume] in blood by automated count 11.4 fL low: 9.7fLh igh: 12.4fL Not Available Not Available 08/25/2024 13:31:22 08/19/19 25 08/18/2024 CBC W Auto Diffe renti al panel - Blood neutrophils/ leukocytes in blood by automated count 83.6 % low: 47%hig h: 73% high Not Available Not Available 08/25/2024 13:31:22 08/19/19 25 08/18/2024 CBC W Auto Diffe renti al panel - Blood lymphocytes/ leukocytes in blood by automated count 14.7 % low: 18%hig h: 42% low Not Available Not Available 08/25/2024 13:31:22 08/19/19 25 08/18/2024 CBC W Auto Diffe renti al panel - Blood monocytes/le ukocytes in blood by automated count 1.5 % low: 4%high : 12% low Not Available Not Available 08/25/2024 13:31:22 08/19/19 25 08/18/2024 CBC W Auto Diffe renti al panel - Blood eosinophils/ leukocytes in blood by automated count 0 % low: 0%high : 5% Not Available Not Available 08/25/2024 13:31:22 08/19/19 25 08/18/2024 CBC W Auto Diffe renti al panel - Blood basophils/le ukocytes in blood by automated count 0.2 % low: 0%high : 1% Not Available Not Available 08/25/2024 13:31:22 08/19/19 25 08/18/2024 CBC W Auto Diffe renti al panel - Blood neutrophils [#/volume] in blood by automated count 5.4 text: 1.60 - 7.70 10(3)/ mcL Not Available Not Available 08/25/2024 13:31:22 08/19/19 25 08/18/2024 CBC W Auto Diffe renti al panel - Blood lymphocytes [#/volume] in blood by automated count 0.95 text: 1.30 - 3.20 10(3)/ mcL low Not Available Not Available 08/25/2024 13:31:22 08/19/19 25 08/18/2024 CBC W Auto Diffe renti al panel - Blood monocytes [#/volume] in blood by automated count 0.1 text: 0.20 - 1.00 10(3)/ mcL low Not Available Not Available 08/25/2024 13:31:22 08/19/19 25 08/18/2024 CBC W Auto Diffe renti al panel - Blood eosinophils [#/volume] in blood by automated count 0 text: 0.00 - 0.40 10(3)/ mcL Not Available Not Available 08/25/2024 13:31:22 08/19/19 25 08/18/2024 CBC W Auto Diffe renti al panel - Blood basophils [#/volume] in blood by automated count 0.01 text: 0.00 - 0.10 10(3)/ mcL Not Available Not Available 08/25/2024 13:31:22 08/19/19 25 08/18/2024 CBC W Auto Diffe renti al panel - Blood nucleated erythrocytes /leukocytes [ratio] in blood 0 Not Available Not Available 08/08 13:31:22 08/19/19 25 08/18/2024 CBC W Auto Diffe renti al panel - Blood job service consultant review of results Yes Not Available Not Available 08/08 13:31:22 08/19/19 25 08/18/2024 CBC W Auto Diffe renti al panel - Blood erythrocytes [morphology] in blood by automated count Yes Not Available Not Available 08/08 13:31:22 08/19/19 25 08/18/2024 CBC W Auto Diffe renti al panel - Blood interpretati on and review of laboratory results Abnorm al Not Available Not Available 13:31:22 08/19/19 25 08/18/2024 Magne sium [Mass /volu me] in Serum or Plasm a magnesium [mass/volume ] in serum or plasma 2.3 mg/dL low: 1.6mg/ dLhigh : 2.6mg/ dL Not Available Not Available 08/25/2024 13:31:22 08/19/19 25 08/18/2024 Magne sium [Mass /volu me] in Serum or Plasm a interpretati on and review of laboratory results Normal Not Available Not Available 08/08 13:31:22 08/19/19 25 08/18/2024 Lipas e [Enzy matic activ ity/v olume ] in Serum or Plasm a lipase [enzymatic activity/vol ume] in serum or plasma 59 U/L low: 8U/Lhi gh: 78U/L Not Available Not Available 08/25/2024 13:31:22 08/19/19 25 08/18/2024 Lipas e [Enzy matic activ ity/v olume ] in Serum or Plasm a interpretati on and review of laboratory results Normal Not Available Not Available 08/08 13:31:22 08/19/19 25 08/18/2024 Compr ehens alec metab olic 1999 panel - Serum or Plasm a sodium [moles/volum e] in serum or plasma 136 mmol/ L low: 136mmo l/Lhig h: 145mmo l/L Not Available Not Available 08/25/2024 13:31:21 08/19/19 25 08/18/2024 Compr ehens alec metab olic 1999 panel - Serum or Plasm a potassium [moles/volum e] in serum or plasma 4.7 mmol/ L low: 3.5mmo l/Lhig h: 5.1mmo l/L Not Available Not Available 08/25/2024 13:31:21 08/19/19 25 08/18/2024 Compr ehens alec metab olic 1999 panel - Serum or Plasm a chloride [moles/volum e] in serum or plasma 106 mmol/ L low: 98mmol /Lhigh : 107mmo l/L Not Available Not Available 08/25/2024 13:31:21 08/19/19 25 08/18/2024 [facility] [employer] alec [employer] [facility] 1999 panel - Serum or Plasm a carbon dioxide, total [moles/volum e] in serum or plasma 19 mmol/ L low: 22mmol /Lhigh : 30mmol /L low Not Available Not Available 08/25/2024 13:31:21 08/19/19 25 08/18/2024 [facility] [employer] [facility] 1999 panel - Serum or Plasm a anion gap in serum or plasma by calculation 15.7 mmol/ L high: 18mmol /L Not Available Not Available 08/25/2024 13:31:21 08/19/19 25 08/18/2024 [facility] [employer] [facility] 1999 panel - Serum or Plasm a glucose [mass/volume ] in serum or plasma 240 mg/dL low: 70mg/d Lhigh: 99mg/d L high Not Available Not Available 08/25/2024 13:31:21 08/19/19 25 08/18/2024 [facility] [employer] [facility] 1999 panel - Serum or Plasm a urea nitrogen [mass/volume ] in serum or plasma 24 mg/dL low: 10mg/d Lhigh: 20mg/d L high Not Available Not Available 08/25/2024 13:31:21 08/19/19 25 08/18/2024 [facility] [employer] [place] [address] panel - Serum or Plasm a creatinine [mass/volume ] in serum or plasma 1.19 mg/dL low: 0.6mg/ dLhigh : 1mg/dL high Not Available Not Available 08/25/2024 13:31:21 08/19/19 25 08/18/2024 [facility] [employer] [facility] 1999 panel - Serum or Plasm a urea nitrogen/cre atinine [mass ratio] in serum or plasma 20 text: 12 - 20 ratio Not Available Not Available 08/25/2024 13:31:21 08/19/19 25 08/18/2024 [facility] [employer] [facility] 2000 panel - Serum or Plasm a protein [mass/volume ] in serum or plasma 8.2 g/dL low: 6g/dLh igh: 8g/dL high Not Available Not Available 08/25/2024 13:31:21 08/19/19 25 08/18/[address] [facility] panel - Serum or Plasm a albumin [mass/volume ] in serum or plasma 4.4 g/dL low: 3.5g/d Lhigh: 5g/dL Not Available Not Available 08/25/2024 13:31:21 08/19/19 25 08/18/2024 [facility] 1999 panel - Serum or Plasm a albumin/glob ulin [mass ratio] in serum or plasma 1.2 low: 1high: 2.2 Not Available Not Available 08/25/2024 13:31:21 08/19/19 25 08/18/2024 [facility] 1999 panel - Serum or Plasm a calcium [mass/volume ] in serum or plasma 10.6 mg/dL low: 8.7mg/ dLhigh : 10.5mg /dL high Not Available Not Available 08/25/2024 13:31:21 08/19/19 25 08/18/2024 [facility] alec [place] [address] panel - Serum or Plasm a bilirubin.to christian [mass/volume ] in serum or plasma 0.4 mg/dL low: 0.2mg/ dLhigh : 1.2mg/ dL Not Available Not Available 08/25/2024 13:31:21 08/19/19 25 08/18/2024 [facility] [place] [address] panel - Serum or Plasm a aspartate aminotransfe rase [enzymatic activity/vol ume] in serum or plasma 36 U/L high: 43U/L Not Available Not Available 08/25/2024 13:31:21 08/19/19 25 08/18/2024 [facility] [place] [address] panel - Serum or Plasm a alanine aminotransfe rase [enzymatic activity/vol ume] in serum or plasma 36 U/L high: 56U/L Not Available Not Available 08/25/2024 13:31:21 08/19/19 25 08/18/2024 [facility] [place] [address] panel - Serum or Plasm a alkaline phosphatase [enzymatic activity/vol ume] in serum or plasma 118 U/L low: 40U/Lh igh: 150U/L Not Available Not Available 08/25/2024 13:31:21 08/19/19 25 08/18/2024 Compr ehens alec metab olic 2000 panel - Serum or Plasm a glomerular filtration rate [volume rate/area] in serum, plasma or blood by creatinine-b ased formula (CKD-epi 2020)/1.73 sq M 54 low: 60 low Creat inine Clear ance is the prefe rred crite conchita for selec ting drug dose adjus tment s in renal ly impai red patie nts. The GFR is provi ded as addit ional perti nent clini nara infor matio n. GFR is repor paula in mL/mi n/1.7 3 sq m. Calcu latio n based on the Chron ic Kidne y Disea se Epide miolo gy Colla borat ion (CKD- EPI) equat ion refit witho ut adjus tment for race. Not Available Not Available 08/25/2024 13:31:21 08/19/19 25 08/18/2024 Compr ehens alec metab olic 2000 panel - Serum or Plasm a glomerular filtration rate [volume rate/area] in serum, plasma or blood by creatinine-b ased formula (MDRD)/1.73 sq M among black population 57 low: 60 low Not Available Not Available 08/25/2024 13:31:21 08/19/19 25 08/18/2024 Compr ehens alec metab olic 2000 panel - Serum or Plasm a glomerular filtration rate [volume rate/area] in serum, plasma or blood by creatinine-b ased formula (MDRD)/1.73 sq M among non black population 47 low: 60 low Not Available Not Available 08/25/2024 13:31:21 08/19/19 25 08/18/2024 Compr ehens alec metab olic 2000 panel - Serum or Plasm a interpretati on and review of laboratory results Abnorm al Not Available Not Available 13:31:21 01/07/2001/02/2023 US, pelvi s, trans abdom inal + trans vagin al No observ ation record ed. BARCODE Not Available 2022 09:08:57 01/07/20 23 06/20/2022 MAMMO , scree nguyễn, digit al, bilat eral No observ ation record ed. BARCODE Not Available 2022 10:44:39 01/25/20 23 01/24/2023 MAMMO , diagn ostic , tomos ynthe sis, bilat eral No observ ation record ed. [facility] (Radiology) [address] [place], [address], 01/27/2023 10:06:53 01/25/20 23 01/24/2023 US, breas t, unila teral No observ ation record ed. [address], [address], 01/27/2023 10:06:54 Result Notes None recorded. Problems Name Problem SNOMED Code Status Onset Date Resolution Date Notes Provider Name and Address Organization Details Recorded Time Abnormal 42466836 Active 023 TOBIAS Rodriguez [place] - [facility] 09:16:46 Problem Notes None recorded. Procedures Surgical History Date Name Laterality Status Provider Name and Address Organization Details Recorded Time 01/22/20 Endometrial Biopsy completed JOSEY Clark Attn: [id number] [place], [address], [place] - [facility] 01/21/2023 12:07:45 10/12/19 22 cardiac catheterization completed TOBIAS [place] - [facility] 01/06/2023 09:01:07 11/08/19 18 cardiac catheterization completed TOBIAS [place] [facility] 01/06/2023 09:00:47 10/30/19 18 colonoscopy completed TOBIAS [place] [facility] 01/06/2023 09:01:29 07/19/19 18 Upper gi endoscopy performed completed TOBIAS Rodriguez - [facility] 01/06/2023 09:02:28 Imaging Results None recorded. Procedure Notes None recorded. Medical Equipment None Reported. Allergies Allergen ID Allergen Name Allergen Category Reaction Reaction Severity Criticality Documentation Date Start Date Code Code System Note Provider Name and Address Organization Details Recorded Time 369817 honey bee venom medicatio n Not available Not available Not available 01/06/2023 45473 7 RxNorm Selena Tang RMA null, [place] - [facility] 3 08:57:17 936128 meclizine medicatio n swelling Not available Not available 01/06/2023 6676 RxNorm Selena Tang RMA [place], [place] [facility] 3 08:57:35 303134 Toradol medicatio n rash Not available Not available 01/06/2023 81355 RxNorm Selena Tang, RMA [place] [facility] 3 08:57:56 874358 acetamino phen / guaifenes in / phenyleph rine medicatio n Not available Not available Not available 01/06/2023 84056 8 RxNorm Selena Tang, RMA [place], [place] - [facility] 3 08:59:14 160037 Non-stero idal anti-infl ammatory agent (substanc e) medicatio n Not available Not available Not available 01/06/2023 98252 5008 SNOMED Selena Tang RMA [place], [place] - [facility] 3 08:59:28 896205 cephalexi n medicatio n itching Not available Not available 01/06/2023 2231 RxNorm Selena Tang, RMA [place] [facility] 3 08:59:44 968447 duloxetin e medicatio n Not available Not available Not available 01/06/2023 59986 RxNorm Selena Tang, RMA [place] - [facility] 3 08:59:55 Medications Name Sig Start Date Stop Date Status Note LastModified by Organization Details LastModified Time losartan 50 mg tablet TAKE 1 TABLET BY MOUTH DAILY active Not Available Not Available No t Available furosemide 40 mg tablet TAKE 1 TABLET BY MOUTH DAILY active Not Available Not Available No t Available methocarbam ol 500 mg tablet TAKE 1 TABLET BY MOUTH TWICE DAILY NEEDED active Not Available Not Available No t Available buspirone 5 mg tablet TAKE 1 TABLET BY MOUTH THREE TIMES DAILY active Not Available Not Available No t Available atorvastati n 80 mg tablet TAKE 1 TABLET BY MOUTH DAILY active Not Available Not Available No t Available carvedilol 25 mg tablet TAKE 1 TABLET BY MOUTH TWICE DAILY active Not Available Not Available No t Available nystatin 100,000 unit/mL oral suspension SHAKE WELL AND APPLY TO INSIDE OF EACH CHEEK 5MLS BY MOUTH FOUR TIMES DAILY X 10 DAYS active Not Available Not Available No t Available prednisone 10 mg tablet 01/06 completed Not Available Not Available Not Available venlafaxine ER 75 mg capsule,ext ended release 24 hr TAKE 1 CAPSULE BY MOUTH DAILY active Not Available Not Available No t Available doxycycline hyclate 100 mg capsule TAKE 1 CAPSULE BY MOUTH TWICE DAILY FOR 10 DAYS active Not Available Not Available No t Available carvedilol 12.5 mg tablet TAKE 1 TABLET BY MOUTH TWICE DAILY active Not Available Not Available No t Available clindamycin HCl 300 mg capsule TAKE 1 CAPSULE BY MOUTH EVERY 8 HOURS 01/06 completed Not Available Not Available Not Available cetirizine 10 mg tablet TAKE 1 TABLET BY MOUTH TWICE DAILY active Not Available Not Available No t Available azithromyci n 250 mg tablet TAKE 2 TABLETS BY MOUTH FOR 1 DAY THEN TAKE 1 TABLET BY MOUTH DAILY FOR 4 DAYS 01/06 completed Not Available Not Available Not Available fluconazole 150 mg tablet TAKE 1 TABLET BY MOUTH NOW. REPEAT DOSE IN 72 HOURS NEEDED active Not Available Not Available No t Available hydrocodone 5 mg-acetamin ophen 325 mg tablet TAKE 1 TABLET BY MOUTH EVERY 6 HOURS NEEDED FOR MODERATE TO SEVERE PAIN active Not Available Not Available No t Available famotidine 40 mg tablet active Not Available Not Available Not Available prednisone 20 mg tablet TAKE 1 TABLET BY MOUTH DAILY FOR 5 DAYS 01/06 completed Not Available Not Available Not Available venlafaxine ER 150 mg capsule,ext ended release 24 hr TAKE 1 CAPSULE BY MOUTH DAILY active Not Available Not Available No t Available diphenoxyla te-atropine 2.5 mg-0.025 mg tablet TAKE 1 TABLET BY MOUTH FOUR TIMES DAILY NEEDED FOR DIARRHEA active Not Available Not Available No t Available topiramate 25 mg tablet TAKE 1 TABLET BY MOUTH TWICE DAILY active Not Available Not Available No t Available metronidazo le 500 mg tablet TAKE 1 TABLET BY MOUTH EVERY 8 HOURS 01/06 completed Not Available Not Available Not Available fexofenadin e 180 mg tablet TAKE 1 TABLET BY MOUTH DAILY active Not Available Not Available No t Available allopurinol 100 mg tablet TAKE 1 TABLET BY MOUTH DAILY active Not Available Not Available No t Available tramadol 50 mg tablet TAKE 1 TO 2 TABLETS BY MOUTH EVERY 8 HOURS NEEDED FOR MODERATE TO SEVERE PAIN active Not Available Not Available No t Available spironolact one 25 mg tablet TAKE 1 TABLET BY MOUTH DAILY active Not Available Not Available No t Available amoxicillin 500 mg tablet TAKE 1 TABLET BY MOUTH THREE TIMES DAILY 8 HOURS APART DIRECTED 01/06 completed Not Available Not Available Not Available glimepiride 2 mg tablet TAKE 2 TABLETS BY MOUTH EVERY MORNING active Not Available Not Available No t Available pantoprazol e 20 mg tablet,diana yed release TAKE 1 TABLET BY MOUTH TWICE DAILY active Not Available Not Available No t Available hydrocortis one 2.5 % topical cream with perineal applicator INSERT SMALL AMOUNT INTO RECTUM USING APPLICATO R NIGHTLY TO HELP WITH BLEEDING HEMORRHOI DS active Not Available Not Available No t Available amoxicillin 875 mg tablet TAKE 1 TABLET BY MOUTH TWICE DAILY FOR 10 DAYS 01/06 completed Not Available Not Available Not Available cephalexin 500 mg capsule TAKE 1 CAPSULE BY MOUTH THREE TIMES DAILY FOR 7 DAYS 01/06 completed Not Available Not Available Not Available pantoprazol e 40 mg tablet,diana yed release TAKE 1 TABLET BY MOUTH ONCE DAILY active Not Available Not Available No t Available lidocaine 5 % topical patch APPLY TO THE AFFECTED AREA TOPICALLY FOR 12 HOURS AND REMOVE FOR 12 HOURS active Not Available Not Available No t Available polymyxin B sulfate 10,000 unit-trimet hoprim 1 mg/mL eye drops INSTILL 1 DROP IN BOTH EYES FOUR TIMES DAILY FOR 7 DAYS active Not Available Not Available No t Available montelukast 10 mg tablet TAKE 1 TABLET BY MOUTH EVERY EVENING active Not Available Not Available No t Available hydroxyzine HCl 25 mg tablet TAKE 2 TABLETS BY MOUTH EVERY NIGHT active Not Available Not Available No t Available furosemide 20 mg tablet TAKE 1 TABLET BY MOUTH DAILY active Not Available Not Available No t Available azelastine 137 mcg (0.1 %) nasal spray USE 2 SPRAYS IN EACH NOSTRIL TWICE DAILY active Not Available Not Available No t Available hydroxychlo roquine 200 mg tablet TAKE 2 TABLETS BY MOUTH DAILY active Not Available Not Available No t Available epinephrine 0.3 mg/0.3 mL injection, auto-inject or ADMINISTE R 0.3 ML IN THE MUSCLE 1 TIME NEEDED FOR ANAPHYLAX IS active Not Available Not Available No t Available methylpredn isolone 4 mg tablets in a dose pack FOLLOW PACKAGE DIRECTION S active Not Available Not Available No t Available albuterol sulfate HFA 90 mcg/actuati on aerosol inhaler INHALE 2 PUFFS BY MOUTH EVERY 4 HOURS NEEDED FOR WHEEZING OR COUGH active Not Available Not Available No t Available ondansetron 4 mg disintegrat ing tablet DISSOLVE 1 TABLET BY MOUTH EVERY 8 HOURS NEEDED FOR NAUSEA active Not Available Not Available No t Available losartan 100 mg tablet TAKE 1 TABLET BY MOUTH DAILY active Not Available Not Available No t Available sertraline 50 mg tablet TAKE 1 TABLET BY MOUTH DAILY 01/06 completed Not Available Not Available Not Available metoclopram john 10 mg tablet TAKE 1 TABLET BY MOUTH UP TO TWICE DAILY FOR PROBLEMAT IC NAUSEA AND POSTPRAND IAL BLOATING active Not Available Not Available No t Available amoxicillin 875 mg-potassiu m clavulanate 125 mg tablet TAKE 1 TABLET BY MOUTH TWICE DAILY FOR 10 DAYS 01/06 completed Not Available Not Available Not Available oxycodone 5 mg tablet active Not Available Not Available No t Available cholecalcif lisha (vitamin D3) 25 mcg (1,000 unit) capsule Take by oral route. active Not Available Not Available No t Available bupropion HCl XL 150 mg 24 hr tablet, extended release TAKE 1 TABLET BY MOUTH EVERY MORNING active Not Available Not Available No t Available duloxetine 60 mg capsule,del ayed release TAKE 1 CAPSULE BY MOUTH DAILY active Not Available Not Available No t Available pregabalin 75 mg capsule TAKE 1 CAPSULE BY MOUTH EVERY NIGHT AT BEDTIME X 7 DAYS THEN TAKE 1 CAPSULE BY MOUTH TWICE DAILY active Not Available Not Available No t Available FeroSul 325 mg (65 mg iron) tablet TAKE 1 TABLET BY MOUTH TWICE DAILY active Not Available Not Available No t Available Lantus Solostar U-100 Insulin 100 unit/mL (3 mL) subcutaneou s pen INJECT 40 UNITS UNDER THE SKIN NIGHTLY active Not Available Not Available No t Available lubiproston e 8 mcg capsule active Not Available Not Available Not Available OneTouch Verio test strips TEST BLOOD SUGAR TWICE DAILY active Not Available Not Available No t Available Stimulant Laxative Plus 8.6 mg-50 mg tablet TAKE 1-2 TABLETS BY MOUTH TWICE DAILY NEEDED FOR CONSTIPAT ION active Not Available Not Available No t Available Jardiance 25 mg tablet TAKE 1 TABLET BY MOUTH DAILY active Not Available Not Available No t Available TRUEplus Pen Needle 32 gauge x 5/32 USE DAILY DIRECTED. active Not Available Not Available No t Available OneTouch Delica Plus Lancet 33 gauge TEST BLOOD GLUCOSE TWICE DAILY active Not Available Not Available No t Available Qulipta 60 mg tablet TAKE 1 TABLET BY MOUTH DAILY active Not Available Not Available No t Available Qulipta 30 mg tablet TAKE ONE TABLET BY MOUTH DAILY active Not Available Not Available No t Available Mounjaro 7.5 mg/0.5 mL subcutaneou s pen injector ADMINISTE R 7.5MG UNDER THE SKIN 1 TIME A WEEK active Not Available Not Available No t Available Mounjaro 5 mg/0.5 mL subcutaneou s pen injector active Not Available Not Available Not Available Mounjaro 10 mg/0.5 mL subcutaneou s pen injector ADMINISTE R 10 MG UNDER THE SKIN 1 TIME A WEEK active Not Available Not Available No t Available Mounjaro 2.5 mg/0.5 mL subcutaneou s pen injector ADMINISTE R 2.5MG UNDER THE SKIN 1 TIME A WEEK active Not Available Not Available No t Available Vitals Date Recorded Body height Body mass index (BMI) Body weight Systolic And Diastolic Provider Name and Address Organization Details Last Updated DateTime 01/06/2023 162.56 cm 27.3 kg/m2 49034.19 g 124/82 mm[Hg] TOBIAS Rodriguez [facility] 01/06/2023 09:16:26 Date Recorded Body height Body mass index (BMI) Body weight Systolic And Diastolic Provider Name and Address Organization Details Last Updated DateTime 01/21/2023 162.56 cm 27.5 kg/m2 52394.78 g 105/68 mm[Hg] TOBIAS Rodriguez [facility] 01/21/2023 11:53:58 Social History Question Answer Notes LastModified by Organizat ion Details LastModified Time Tobacco Smoking Status Former Smoker TOBIAS Rodriguez [facility] 01/06/2023 08:49:25 What Is Your Level Of Caffeine Consumption? Occasional Information not available 01/06/2023 What Was The Date Of Your Most Recent Tobacco Screening? 01/06/2023 Information not available 01/06/2023 Has Tobacco Cessation Counseling Been Provided? Yes Information not available 01/06/2023 On What Date Was Tobacco Cessation Counseling Provided? 01/06/2023 Information not available 01/06/2023 Sex: Female Functional Status Question Answer Note LastModified by Organizat ion Details LastModified Time Do you use any illicit or recreational drugs? No Information not available 01/06/2023 Do you or have you ever used any other forms of tobacco or nicotine? No Information not available 01/06/2023 What is your level of alcohol consumption? None quit 2020 Information not available 01/06/2023 Mental Status None recorded. Family History Relationship Description Onset Age of this Age Resolved Age Notes LastModified by Organization Details LastModified Time Mother Diabetes mellitus [email or web address] Not available 01/06 09:17:47 Mother Hypertensive disorder [email or web address] Not available 01/06 09:17:57 Mother Heart disease [email or web address] Not available 01/06 09:18:06 Medical History Condition Response Diabetes Y High Blood Pressure Y Anemia Y Gynecological History Statement/Question Response If Post Menopausal, Age at Menopause 48 LMP Sexually Active? Y Obstetrics History GPAL:G 2 P 0 2 0 0 Type Value Premature 2 Living 0 Total 2 Past Encounters Encounter ID Performer Location Encounter Start Date Encounter Closed Date Diagnosis/Indication Diagnosis SNOMED-CT Code Diagnosis ICD10 Code Diagnosis IMO Codes Diagnosis Note [id number] Osmin Rider MD [place] [address] [facility] [address] [place] [address] 01/06/2023 08:49:23 01/07/2023 08:57:30 Postmenopausal bleeding 11395397 N95.0 Pap completed. Pelvic US showed small fibroid. CBC negative of anemia in ER. Pt educated on need for EMB. Pt educated on risks. Pt verbalized understand ing and schedule EMB. pt educated on importance of follow up. Uterine leiomyoma 846998 05 D25.9 Discussed management options. pt undecided. Routine gy necologic examination done [id number] 9168 Z01.419 -Educated on the importance of SBE and awareness. -Discussed the importance of cervical cancer screenings -Educated osteoporos is prevention including calcium rich foods, weight bearing exercise.- Discussed the importance of exercise.- Nutrition discussed and the importance of a diet rich in fruits, vegetable, whole grains, and lean proteins.- Counseled regarding prevention of STD's and screening options, condom use and prevention .-Advised avoidance of tobacco, alcohol, and drugs.-Dis cussed sun safety and the importance of sunscreen. Positive s creening for depression on PHQ-9 (Patient Health Questionnaire 9) [id number] 93549 Z13.31 Pt educated on resources. Pt notified to follow up with her counselor and psychiatri st. Pt educated on importance of follow up. Pt given Er precaution s. Mass of left breast 1224 561752 2911481 N63.20 Imaging ordered. pt educated on importance of follow up. Body mass index 25-29 - overweight 737012016 Z68.27 Pt educated on risks and importance of lifestyle modificati ons. Pt reports will continue to follow up with PCP. [id number] Osmin Rider MD [place] [address] OB 4 [facility] [address] [place] [address] 01/21/2023 11:24:46 01/22/2023 08:46:46 Abnormal uterine bleeding [id number] 9100 N93.9 EMB completed. Pt educated on after care and precaution s. Discussed management options for bleeding. Pt not interested in medical management and would be interest in surgical options. Referral ordered. pt educated on importance of follow up. Pt reminded to complete blood work from last visit. pt notified to call office if issues occur. Uterine leiomyoma 178964 05 D25.9 Discussed management options for bleeding. Pt not interested in medical management and would be interest in surgical options. Pt opts for referral to [facility]. Referral ordered. pt educated on importance of follow up. Health Concerns Section Related Observation LastModified by Organization Detai ls LastModified Time None Recorded Concern Status LastModified by Organization Details LastModified Time None Recorded Advance Directives Directive None Recorded Payers Insurance Date Sequence Insurance Name Policy Number Policy Singh Covered Member ID Singh Member ID Guarantor Name 04/08/2024 [place] [facility] Bonny Sutton [id number] Bonny Sutton 04/08/2024 2 *SELF PAY* Virginia Sutton 04/08/2024 3 [place] [employer] [place] [employer] Bonny Sutton [id number] Bonny Sutton 05/17/2024 1 [place] Bonny Sutton [id number] Bonny Sutton 04/08/2024 1 [facility] - DOS ON OR AFTER 20 (MEDICAID REPLACEMENT - HMO) Bonny Sutton [id number] Bonny Sutton 02/09/2024 2 [place] Bonny Sutton [id number] Bonny Sutton 02/09/2024 2 [place] [employer] Bonny Sutton [id number] Bonny Sutton Notes Date Note Type Note Provider Name and Address Organization Details Recorded Time 3 text/html Breast MassReported by PatientHPIFor location, patient reportsleftandlower inner quadrant. For onset/timing, patient reports1-4 months. For duration, patient reportsintermittent. For associated symptoms, patient reportsno fever,no skin redness,no nipple discharge,no breast swelling,no arm pain,no arm swelling, andno chest pain. For quality, (tender at times). Annual [employer] Post-MenopausalReported by PatientGenitourinary symptomsFor vaginal bleeding, patient reportspost menopausal bleeding. For menopausal symptoms, patient reportsno menopausal symptomsandnormal vaginal lubrication. For urinary symptoms, patient reportsno hematuria,no incontinence,no nocturia, andno urinary frequency. For vulva, patient reportsno genital lesionandno vulvar atrophy. For vagina, patient reportsnormal vaginal dischargeandno vaginal atrophy.Breast symptomsFor breast, patient reportsbreast lumpandbreast painbut reportsno nipple discharge.Psychological symptomsFor sexual complaints, patient reportsno sexual complaints. For psychological symptoms, patient reportsno depressionandno anxiety.Preventative measuresFor preventive measures, patient reportsencourage regular mammograms starting age 40,encourage self breast examination,encourage regular exercise,encourage no tobacco use,mammogram performed within the past year, andhistory of recent colonoscopy. Pt is here for ER follow up for post menopausal bleeding. pt went to ER 01/02/23 related to vaginal bleeding. Pt reports bleeding is very light. Pt reports menopause occur 2 years ago. Pt denies pelvic pain. Pelvic US in ER showed small uterine fibroid. CBC was negative for anemia. PT reports notice small tender lump in left breast in lower inner quadrants. PHQ score 21. Pt denies SI or HI. Pt reports seeing psychiatry and counselor at [facility]. Pt reports good support system. Pt denies any other complaints. JOSEY Clark Attn: Accounting,[address], [place], [address], [facility] 01/06/2023 10:40:33 3 text/html Pt is here for EMB for abnormal bleeding. pt reports bleeding has stopped. pt denies any complaints. JOSEY Clark Attn: Accounting,[address], [place], [address], [facility] 01/21/2023 12:52:46 OBGyn Episode No OBEpisode recorded.
--- OUTSIDE RECORDS SUMMARY | 2024-12-03 01:27 | XMS_ITS | Encounter Summary ---
Author Organization [facility] Address [address] [place] [address] Phone Care Team Providers Care Flight Engineer Manager Name Role Phone Phil Jacobo MD Unavailable [phone] Rajiv Mccormack NP Unavailable Unavailable Alize Acosta APRN, LANDING SIGNAL OFFICER Unavailable [phone] Dayo Chaney MD Unavailable Juanita Hauser RN Unavailable UnavailDavid Alexandre MD Unavailable Maurilio Farley MD Unavailable Rebeka Trinidad MD Primary Care Provider + [phone] Dom Quiñonez MD Unavailable Rachelle Nava MOUNTAIN OR GLACIER GUIDE, MELON PACKER Unavailable + [phone] Irais Naylor MOUNTAIN OR GLACIER GUIDE, LANDING SIGNAL OFFICER Unavailable + [phone] Lorri Leo MOUNTAIN OR GLACIER GUIDE, LANDING SIGNAL OFFICER Primary Care Provider + [phone] Rebeka Trinidad MD Primary Care Provider + [phone] Lorri Leo MOUNTAIN OR GLACIER GUIDE, LANDING SIGNAL OFFICER Primary Care Provider + [phone] Sharri Gaspar MD Unavailable Tani Biggs PAC Primary Care Provider [phone] Amber Aldrich APRN, LANDING SIGNAL OFFICER Unavailable Reason for Visit * Reason Comments Medication Refill Encounter Details Date Type Department Care Team (Late st Contact Info) Description 07/07/2023 Refill [facility] - Neurology [facility] #2 [place] [address] Rachelle Nava, RUSSELL, MELON PACKER [address] [place] [address] Medication Refill Social History Tobacco Use Types Packs/Day Years Used Date Smoking Tobacco: Former Cigarettes 1 37.1 1 985 - 04/12/2021 Smokeless Tobacco: Never Alcohol Use Standard Drinks/Week Comments Not Currently 0 (1 standard drink = 0.6 oz pur e alcohol) last drank 2020 [facility] Utilities Answer Date Recorded In the past 12 months has [employer], gas, oil, or water company threatened [...] Never 03/24/2023 How often do you attend [facility] health system or christianity services? More than 4 times [...] Total Score - Questions 1-9 18 08/ [facility] - Occupational Stress Questionnaire Answer Date [...] in a alf (including now)? 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 Not [...] Dept 06/19/23 Office Visit Phil Jacobo MD [facility] Neurology [facility] 06/04/23 Office Visit Rebeka Trinidad MD [facility] 05/09/23 Office Visit Rebeka Trinidad MD [facility] 03/26/23 Office Visit Rebeka Trinidad MD [facility] 03/19/23 Office Visit Rachelle Nava APRN, MELON PACKER [facility] Neurology [facility] 02/06/23 Office Visit Emilia Tang MD [facility] 11/06/22 Office Visit Emilia Tang MD [facility] 10/10/22 Office Visit Emilia Tang MD [facility] 09/16/22 Office Visit Rachelle Nava APRN, MELON PACKER [facility] Neurology [facility] 09/06/22 [facility] Show[facility] recent visits within past 365 [...] [facility] [address] [place] [address] 01/03/2025 11:30 AM CDT Office Visit [facility] - Neurology - [place] [address] [place] [address] Rachelle Nava APRN, MELON PACKER [address] [place] [address] 02/11/2025 2:00 PM MASON TENDER Telemedicine [facility] [address] [place] [address] 02/16/2025 2:00 PM MASON TENDER Telemedicine [facility] [address] [place] [address] Alize Acosta, MOUNTAIN OR GLACIER GUIDE, LANDING SIGNAL OFFICER [address] [place] [address] 02/21/2025 3:45 PM MASON TENDER Office Visit [facility] Medical Group - Endocrinology - [place] [address] [place] [address] David Salmon MD #[address] [address] 03/04/2025 3:10 PM MASON TENDER Lab [facility] - Primary Care - [place] [address] [place] [address] 03/04/2025 3:30 PM MASON TENDER Office Visit [facility] - Primary Care - [place] [address] [place] [address] Tani Biggs, PAC [address] [place] [address] 03/17/2025 1:30 PM MASON TENDER Lab [facility] [address] [place] [address] Melony Asif Stacey, PAC [address] [place] [address] Discharge Disposition: Discharged to home or Selfcare 03/25/2025 1:20 PM MASON TENDER Office Visit [facility] Oncology Services [address] [place] [address] Melony Asif Stacey, [facility] [address] [place] [address] Discharge Disposition: Discharged to home or Selfcare 04/25/2025 2:00 PM MASON TENDER Office Visit [facility] - Cardiology - [place] [address] [place] [address] Laisha Griffin, DO [address] [address] 07/18/2025 1:00 PM CDT Office Visit [facility] - Pulmonology & Sleep Medicine - [place] [address] [place] [address] Dom Quiñonez MD [address] [place] [address] documented as of this encounter Goals Goal Patient Goal Type Associated Problems Recent Progress Patient-Stated? Author ACTIVITY Activity No change(08/08 2:42 PM CDT) Yes Maritza Vanegas, RN Note: Bonny will walk five days a week. Goal Reviewed with: Bonny Readiness to change: Department associated with goal: [facility] Steps to achieve goal: Walking 5 days a week I want to be able to be around people and feel less depressed. Behavioral Health Worsening(0 09/22/2023 3:12 PM CDT) Yes Hilda Tinajero [facility] Note: Goal/Objective: Decrease symptoms of depression and anxiety. Anticipated Time Frame for Goal Completion: 3 months Goal Reviewed with: patient Readiness to change: Thinking about making a change Department associated with goal: [facility] Steps to achieve [...] diet Depression Depression Improving(0 03/15/2022 2:27 PM MASON TENDER) No Breanne Saldana LCSW Note: Goal/Objective: Decrease [...] 19 04/18/2024 04/18/2024 04/18/2024 10:4 7 PM MASON TENDER Respiratory Rule-Out 05/06/2024 05/06/2024 025 9:20 AM MASON TENDER COVID - 05/06/2024 05/06/2024 05/06/2024 9:19 AM MASON TENDER Assessment Noted Time PHQ-9 Depression Total Score: 18 023 9:24 AM CDT documented as of this encounter Care Teams Flight Engineer Manager Relationship Specialty Start Date End Date Rebeka Trinidad MD [address] [place] [address] PCP - General Family Medicine 03/26/23 03/29/24 Lorri Leo APRN, LANDING SIGNAL OFFICER [address] [place] [address] PCP - General Certified Nurse Practitioner 03/30/24 04/20/24 Rebeka Trinidad MD [address] [place] [address] PCP - General Family Medicine 04/21/24 04/21/24 Lorri Leo APRN, LANDING SIGNAL OFFICER [address] [place] [id number] PCP - General Certified Nurse Practitioner 04/22/24 05/30/24 Tani Biggs PAC [address] [place] [address] PCP - General Physician Compress Engineer 05/31/24 Phil Jacobo MD #[address] [place] [address] Consulting Physician Neurology 03/07/21 Rajiv Mccormack, KELI [address] [place] [address] Nurse Practitioner Gastroenterology 03/07/21 Alize Acosta APRN, LANDING SIGNAL OFFICER [address] [place] [address] Virtual Advanced Care (VAC) CLINICAL NURSING COORDINATOR Advanced Practice Nurse 08/30/21 Dayo Chaney MD [facility] [place] [address] Lookback Coordinator Cardiovascular Disease - Cardiology 09/20/21 02/12/24 Juanita Mercado RN [place] Registered Nurse Cardiology 12/24/21 02/12/24 David Salmon MD #[address] [phone] Consulting Physician Endocrinology 01/15/22 Maurilio Farley MD #[address] [address] Consulting Physician Colon and Rectal Surgery 09/20/22 Dom Quiñonez MD #[address] [place] [address] Consulting Physician Pulmonary Disease 11/19/21 Rachelle Nava, MOUNTAIN OR GLACIER GUIDE, MELON PACKER [address] [facility] [place] [address] Nurse Practitioner Advanced Practice Nurse 07/19/22 Irais Naylor, MOUNTAIN OR GLACIER GUIDE, LANDING SIGNAL OFFICER #2 [facility] [address] [place] [address] Nurse Practitioner Cardiology 06/27/23 07/29/24 Sharri Gaspar MD 2 [facility] [address] [place] [address] Consulting Physician Cardiology 04/26/24 Amber Aldrich, MOUNTAIN OR GLACIER GUIDE, LANDING SIGNAL OFFICER [address] [place] [address] Nurse Practitioner Cardiology 07/30/24 documented as of this encounter
--- OUTSIDE RECORDS SUMMARY | 2024-12-03 01:27 | XMS_ITS | Encounter Summary ---
Author Organization [facility] Address [address] [place] [address] Phone Care Team Providers Care Thoroughbred Horse Farm Manager Name Role Phone Jackeline Dimas TOOLING INSPECTOR, TRANSACTION MANAGER Primary Care Provider Fiona Martinez VARNISH MELTER HELPER Unavailable Unavailab Phil Ellis MD Unavailable [phone] Rajiv Mccormack NP Unavailable Unavailable Renita Quezada RN Unavailable Unavailable Alize Acosta TOOLING INSPECTOR, TRANSACTION MANAGER Unavailable [phone] Dayo Chaney MD Unavailable Juanita Hauser RN Unavailable Unavaila David Martinez MD Unavailable Emilia Tang MD Primary Care Provider [phone] Maurilio Farley MD Unavailable Candida Turner MD Unavailable Rebeka Trinidad MD Primary Care Provider + [phone] Dom Quiñonez MD Unavailable Rachelle Nava TOOLING INSPECTOR, NEWS REPORTER Unavailable + [phone] Irais Naylor TOOLING INSPECTOR, TRANSACTION MANAGER Unavailable + [phone] AhmetAngélicamando Littlejohn TOOLING INSPECTOR, TRANSACTION MANAGER Primary Care Provider + [phone] Rebeka Trinidad MD Primary Care Provider + [phone] Lorri Leo TOOLING INSPECTOR, TRANSACTION MANAGER Primary Care Provider [phone] Sharri Gaspar MD Unavailable Tani Biggs [facility] Primary Care Provider + [phone] Amber Aldrich TOOLING INSPECTOR, TRANSACTION MANAGER Unavailable Reason for Visit * Reason Comments Medication Refill Encounter Details Date Type Department Care Team (Late Contact Info) Description 10/12/2020 Refill [facility] - Primary Care - [place] [address] [place] [address] Jackeline Dimas, TOOLING INSPECTOR, [facility] [address] [place] [address] Medication Refill Social History Tobacco [...] Industry Job Start Date Job End Date [employer] Not on file Not on file Not [...] Description 12/10/2024 2:40 PM CDT Telemedicine [facility] [address] [place] [address] 01/03/2025 11:30 AM CDT [facility] [place] [address] [place] [address] Rachelle Nava, TOOLING INSPECTOR, NEWS REPORTER [address] [place] [address] 02/11/2025 2:00 PM GEM SETTER Telemedicine [facility] [address] [place] [address] 02/16/2025 2:00 PM GEM SETTER Telemedicine [facility] [address] [place] [address] Alize Acosta, TOOLING INSPECTOR, TRANSACTION MANAGER [address] [place] [address] 02/21/2025 3:45 PM GEM SETTER [facility] [place] [address] [place] [address] David Salmon MD #[address] [address] 03/04/2025 3:10 PM GEM SETTER [facility] [place] [address] [place] [address] 03/04/2025 3:30 PM GEM SETTER [facility] [place] [address] [place] [address] Tani Biggs PAC [address] [place] [address] 03/17/2025 1:30 PM GEM SETTER [facility] [address] [place] [address] Melony Asif August, PAC [address] [place] [address] Discharge Disposition: Discharged to home or Selfcare 03/25/2025 1:20 PM GEM SETTER [facility] [address] [place] [address] Melony Asif August, PAC [address] [place] [address] Discharge Disposition: Discharged to home or Selfcare 04/25/2025 2:00 PM GEM SETTER Office [facility] - Cardiology - [place] [address] [place] [address] Laisha Griffin, DO [address] [address] 07/18/2025 1:00 PM CDT Office Visit [facility] - Pulmonology & Sleep Medicine [facility] #[address] [place] [address] Dom Quiñonez MD #[address] [place] [address] documented as of this encounter Visit Diagnoses Diagnosis Type 2 diabetes mellitus with hyperglycemia, without long-term current use of insulin documented in this encounter Additional Health Concerns Infection Onset Date Last Indicated Resolved Time COVID - 19 01/08/2021 01/08/2021 01/28/2021 12:1 6 AM GEM SETTER COVID - 19 03/12/2021 03/12/2021 04/01/2021 12:1 6 AM GEM SETTER COVID - 19 12/15/2021 12/15/2021 12/15/2021 7:26 PM CDT COVID - 19 Confirmed 12/15/2021 12/15/2021 022 12:16 AM CDT COVID - 19 04/18/2024 04/18/2024 04/18/2024 10:4 7 PM GEM SETTER Respiratory Rule-Out 05/06/2024 05/06/2024 025 9:20 AM GEM SETTER COVID - 19 05/06/2024 05/06/2024 05/06/2024 9:19 AM GEM SETTER Assessment Noted Time PHQ-9 Depression Total Score: 0 09/01/19 11:58 AM CDT documented as of this encounter Care Teams Thoroughbred Horse Farm Manager Relationship Specialty Start Date End Date Jackeline Dimas, TOOLING INSPECTOR, TRANSACTION MANAGER [address] [place] [address] PCP - General Advanced Practice Nurse 07/31/17 Emilia Tang MD [address] [place] [address] PCP - General Family Medicine 06/07/22 03/25/23 Rebeka Trinidad MD [address] [place] [address] PCP - General Family Medicine 03/26/23 03/29/24 Lorri Leo APRN, TRANSACTION MANAGER [address] [place] [address] PCP - General Certified Nurse Practitioner 03/30/24 04/20/24 Rebeka Trinidad MD [address] [place] [address] PCP - General Family Medicine 04/21/24 04/21/24 Lorri Leo APRN, TRANSACTION MANAGER [address] [place] [address] PCP - General Certified Nurse Practitioner 04/22/24 05/30/24 Tani Biggs, PAC [address] [place] [address] PCP - General Physician Ferry Engineer 05/31/24 Fiona Martinez, [place] Orthopaedic Physician Assistant 03/01/21 08/23/21 Phil Jacobo MD [address] [place] [address] Consulting Physician Neurology 03/07/21 Rajiv Mccormack, KELI [address] [place] [address] Nurse Practitioner Gastroenterology 03/07/21 Renita Quezada, [place] Orthopaedic Physician Assistant 05/09/21 08/23/21 Alize Acosta, TOOLING INSPECTOR, TRANSACTION MANAGER [address] [place] [address] Virtual Advanced Care (VAC) PATTERNMAKER Advanced Practice Nurse 08/30/21 Dayo Chaney MD [facility]6 [place] [address] Teacher Tutor Cardiovascular Disease - Cardiology 09/20/21 02/12/24 Juanita Mercado, [place] Registered Nurse Cardiology 12/24/21 02/12/24 David Salmon MD #[address] [address] Consulting Physician Endocrinology 01/15/22 Maurilio Farley MD #[address] [address] Consulting Physician Colon and Rectal Surgery 09/20/22 Physician, Candida Davis MD [address] [place] [address] Family Medicine 01/25/22 03/18/23 Dom Quiñonez MD #[address] [place] [address] Consulting Physician Pulmonary Disease 11/19/21 Rachelle Nava APRN, NEWS REPORTER #[address] [place] [address] Nurse Practitioner Advanced Practice Nurse 07/19/22 Irais Naylor TOOLING INSPECTOR, TRANSACTION MANAGER #[address] [address] Nurse Practitioner Cardiology 06/27/23 07/29/24 Sharri Gaspar MD 2 [facility] [address] [address] Consulting Physician Cardiology 04/26/24 Amber Aldrich APRN, TRANSACTION MANAGER #[address] [place] [address] Nurse Practitioner Cardiology 07/30/24 documented as of this encounter
--- OUTSIDE RECORDS SUMMARY | 2024-12-03 01:28 | XMS_ITS | Encounter Summary ---
Author Organization [facility] Address [address] [place] [address] Phone Care Team Providers Care Glass Calibrator Name Role Phone Jackeline Dimas SALES PRODUCT MANAGER, ARMATURE BANDER Primary Care Provider Phil Jacobo MD Unavailable [phone] Rajiv Mccormack NP Unavailable Unavailable Alize Acosta SALES PRODUCT MANAGER, ARMATURE BANDER Unavailable +[phone] Dayo Chaney MD Unavailable Juanita Hauser RN Unavailable UnavailDavid Alexandre MD Unavailable Emilia Tang MD Primary Care Provider [phone] Maurilio Farley MD Unavailable Physician, Candida Davis MD Unavailable Rebeka Trinidad MD Primary Care Provider + [phone] Dom Quiñonez MD Unavailable Rachelle Nava SALES PRODUCT MANAGER, CBX OPERATOR Unavailable + [phone] Irais Naylor SALES PRODUCT MANAGER, ARMATURE BANDER Unavailable + [phone] Lorri Leo SALES PRODUCT MANAGER, ARMATURE BANDER Primary Care Provider [phone] Rebeka Trinidad MD Primary Care Provider + [phone] Ahmet Lorri Annetta SALES PRODUCT MANAGER, [facility] Primary Care Provider + [phone] Sharri Gaspar MD Unavailable Kalyan Tani B [facility] Primary Care Provider [phone] Amber Aldrich APRN, [facility] Unavailable Reason for Visit * Reason Comments Medication Refill Encounter Details Date Type Department Care Team (Late st Contact Info) Description 04/01/2022 Refill [facility] - Endocrinology - [place] [address] [place] [address] David Salmon MD [address] [address] Medication Refill Social History Tobacco [...] 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 No / Unsure 04/04/2022 4:01 PM REAL ESTATE SITE ANALYST documented as of this encounter Miscellaneous Notes * Telephone Encounter - Yesi Leggett RN - 04/01/2022 1:19 PM REAL ESTATE SITE ANALYST Requested Prescriptions Pending Prescriptions Disp Refills ??? Glucose Blood (OneTouch Verio) Strip [Pharmacy Med Name: ONE TOUCH VERIO TEST ST(NEW)100S] 200 Strip Sig: TEST BLOOD SUGAR TWICE DAILY Next appt: 04/30/2022 ESTATE SITE ANALYST documented in this encounter Plan of Treatment Upcoming Encounters Date Type Department Care Team (Late st Contact Info) Description 12/10/2024 2:40 PM CDT Telemedicine [facility] [address] [place] [address] 01/03/2025 11:30 AM CDT Office Visit [facility] - Neurology - [place] [address] [place] [address] Rachelle Nava APRN, CBX OPERATOR [address] [place] [address] 02/11/2025 2:00 PM REAL ESTATE SITE ANALYST Telemedicine [facility] [address] [place] [address] 02/16/2025 2:00 PM REAL ESTATE SITE ANALYST Telemedicine [facility] [address] [place] [address] Alize Acosta, RUSSELL, ARMATURE BANDER [address] [place] [address] 02/21/2025 3:45 PM REAL ESTATE SITE ANALYST Office Visit [facility] - Endocrinology - [place] [address] [place] [address] David Salmon MD #[address] [address] 03/04/2025 3:10 PM REAL ESTATE SITE ANALYST Lab [facility] - Primary Care - [facility] [place] [address] 03/04/2025 3:30 PM REAL ESTATE SITE ANALYST [facility] [place] [address] [place] [address] Tani Biggs PAC [address] [place] [address] 03/17/2025 1:30 PM REAL ESTATE SITE ANALYST [facility] [address] [place] [address] Melony Asif, PAC [address] [place] [address] Discharge Disposition: Discharged to home or Selfcare 03/25/2025 1:20 PM REAL ESTATE SITE ANALYST [facility] [address] [place] [address] Melony Asif, PAC [address] [place] [address] Discharge Disposition: Discharged to home or Selfcare 04/25/2025 2:00 PM REAL ESTATE SITE ANALYST [facility] [place] [address] [place] [address] Laisha Griffin, DO [address] [address] 07/18/2025 1:00 PM CDT Office Visit [facility] - Pulmonology & Sleep Medicine - [place] [address] [place] [address] Dom Quiñonez MD [address] [place] [address] documented as of this encounter Goals Goal [...] as recommended. Depression Depression Improving( 2:27 PM REAL ESTATE SITE ANALYST) No Breanne Saldana, NURSING EDUCATOR Note: Goal/Objective: Decrease symptoms of depression associated [...] 04/18/2024 04/18/2024 10:4 7 PM REAL ESTATE SITE ANALYST Respiratory Rule-Out 05/06/2024 05/06/2024 025 9:20 AM REAL ESTATE SITE ANALYST COVID - 19 05/06/2024 05/06/2024 05/06/2024 9:19 AM REAL ESTATE SITE ANALYST Assessment Noted Time PHQ-9 Depression Total Score: 24 022 3:31 PM REAL ESTATE SITE ANALYST documented as of this encounter Care Teams Glass Calibrator Relationship Specialty Start Date End Date Jackeline Dimas, SALES PRODUCT MANAGER, ARMATURE BANDER [address] [place] [address] PCP - General Advanced Practice Nurse 07/31/17 Emilia Tang MD [address] [place] [address] PCP - General Family Medicine 06/07/22 03/25/23 Rebeka Trinidad MD [address] [place] [address] PCP - General Family Medicine 03/26/23 03/29/24 Lorri Leo APRN, ARMATURE BANDER [address] [place] [address] PCP - General Certified Nurse Practitioner 03/30/24 04/20/24 Rebeka Trinidad MD [address] [place] [address] PCP - General Family Medicine 04/21/24 04/21/24 Lorri Leo APRN, ARMATURE BANDER [address] [place] [address] PCP - General Certified Nurse Practitioner 04/22/24 05/30/24 Tani Biggs, PAC [address] [place] [address] PCP - General Physician Water Resource Engineering Specialist 05/31/24 Phil Jacobo MD [address] [place] [address] Consulting Physician Neurology 03/07/21 Rajiv Mccormack, KELI [address] [place] [address] Nurse Practitioner Gastroenterology 03/07/21 Alize Acosta, SALES PRODUCT MANAGER, ARMATURE BANDER [facility] [place] [address] Virtual Advanced Care (VAC) ENVIRONMENTAL EPIDEMIOLOGIST Advanced Practice Nurse 08/30/21 Dayo Chaney MD [address] [place] [address] Orthodontic Technician Assistant Cardiovascular Disease - Cardiology 09/20/21 02/12/24 Juanita Mercado RN [place] Registered Nurse Cardiology 12/24/21 02/12/24 David Salmon MD #[address] [address] Consulting Physician Endocrinology 01/15/22 Maurilio Farley MD #[address] [address] Consulting Physician Colon and Rectal Surgery 09/20/22 PhysicianCandida MD [address] [place] [address] Family Medicine 01/25/22 03/18/23 Dom Quiñonez MD #[address] [place] [address] Consulting Physician Pulmonary Disease 11/19/21 Rachelle Nava APRN, CBX OPERATOR [address] [place] [address] Nurse Practitioner Advanced Practice Nurse 07/19/22 Irais Naylor APRN, ARMATURE BANDER #2 [facility] [address] [place] [address] Nurse Practitioner Cardiology 06/27/23 07/29/24 Sharri Gaspar MD 2 [facility] [place] [facility] [address] [place] [address] Consulting Physician Cardiology 04/26/24 Amber Aldrich APRN, ARMATURE BANDER [address] [place] [address] Nurse Practitioner Cardiology 07/30/24 documented as of this encounter
--- OUTSIDE RECORDS SUMMARY | 2024-12-03 01:28 | XMS_ITS | Encounter Summary ---
Author Organization [facility] Address [address] [place] [address] Phone Care Team Providers Care Roofing Machine Operator Name Role Phone Phil Jacobo MD Unavailable [phone] Rajiv Mccormack NP Unavailable Unavailable Alize Acosta APRN, HEALTH AND HUMAN PERFORMANCE PROFESSOR Unavailable [phone] Dayo Chaney MD Unavailable Juanita Hauser RN Unavailable UnavailDavid Alexandre MD Unavailable Maurilio Farley MD Unavailable Rebeka Trinidad MD Primary Care Provider + [phone] Dom Quiñonez MD Unavailable Rachelle Nava CONTENT MANAGER, GRADER MARKER Unavailable + [phone] Irais Naylor CONTENT MANAGER, HEALTH AND HUMAN PERFORMANCE PROFESSOR Unavailable + [phone] Lorri Leo CONTENT MANAGER, HEALTH AND HUMAN PERFORMANCE PROFESSOR Primary Care Provider + [phone] Rebeka Trinidad MD Primary Care Provider + [phone] Lorri Leo CONTENT MANAGER, HEALTH AND HUMAN PERFORMANCE PROFESSOR Primary Care Provider + [phone] Sharri Gaspar MD Unavailable Tani Biggs [facility] Primary Care Provider + [phone] Amber Aldrich APRN, CNP Unavailable Reason for Visit * Reason Comments Medication Refill Encounter Details Date Type Department Care Team (Late st Contact Info) Description 08/05/2023 Refill [facility] - Primary Care - [place] [address] [place] [address] Rebeka Trinidad MD [address] [place] [address] Medication Refill Social History Tobacco Use Types Packs/Day Years Used Date Smoking Tobacco: Former Cigarettes 1 37.1 1 985 - 04/12/2021 Smokeless Tobacco: Never Alcohol Use Standard Drinks/Week Comments Not Currently 0 (1 standard drink = 0.6 oz pur e alcohol) last drank 2020 [facility] Utilities Answer Date Recorded In the past 12 months has [employer] electric, gas, oil, or water [employer] threatened to shut off services in your home? No 03/24/2023 Social Connection and Isolation Panel Answer Date Recorded In a typical week, how many times do you talk on the phone with family, friends, or neighbors? Once a week 03/24/2023 How often do you get togethe r with friends or relatives? Never 03/24/2023 How often do you attend [facility] or mandaeism services? 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 file [...] Dept 06/04/23 Office Visit Rebeka Trinidad MD [facility] 05/09/23 Office Visit Rebeka Trinidad MD [facility] 03/26/23 Office Visit Rebeka Trinidad MD [facility] 02/06/23 Office Visit Emilia Tang MD [facility] Showing recent visits within past [...] CDT Telemedicine [facility] [address] [place] [address] 01/03/2025 11:30 AM CDT [facility] [place] [address] [place] [address] Rachelle Nava, CONTENT MANAGER, GRADER MARKER [address] [place] [address] 02/11/2025 2:00 PM TRAINING ASSISTANT Telemedicine [facility] [address] [place] [address] 02/16/2025 2:00 PM TRAINING ASSISTANT Telemedicine [facility] [address] [place] [address] Alize Acosta, CONTENT MANAGER, HEALTH AND HUMAN PERFORMANCE PROFESSOR [address] [place] [address] 02/21/2025 3:45 PM TRAINING ASSISTANT [facility] [place] [address] [place] [address] David Salmon MD #[address] [address] 03/04/2025 3:10 PM TRAINING ASSISTANT [facility] - [place] [address] [place] [address] 03/04/2025 3:30 PM TRAINING ASSISTANT [facility] - [place] [address] [place] [address] Tani Biggs PAC [address] [place] [address] 03/17/2025 1:30 PM TRAINING ASSISTANT [facility] [address] [place] [address] Melony Asif August, PAC [address] [place] [address] Discharge Disposition: Discharged to home or Selfcare 03/25/2025 1:20 PM TRAINING ASSISTANT [facility] [address] [place] [address] AsifMelony August, PAC [address] [place] [address] Discharge Disposition: Discharged to home or Selfcare 04/25/2025 2:00 PM TRAINING ASSISTANT Office Visit [facility] - Cardiology - [place] [address] [place] [address] Laisha Griffin, DO [address] [address] 07/18/2025 1:00 PM CDT Office Visit [facility] - Pulmonology & [facility] Medicine [facility] #[address] [place] [address] Dom Quiñonez MD [address] [place] [address] documented as of this encounter Goals Goal [...] Worsening(0 09/22/2023 3:12 PM CDT) Hilda Mesa [facility] Note: Goal/Objective: Decrease symptoms of depression and [...] diet Depression Depression Improving(0 03/15/2022 2:27 PM TRAINING ASSISTANT) No Breanne Saldana LCSW Note: Goal/Objective: [...] 19 04/18/2024 04/18/2024 04/18/2024 10:4 7 PM TRAINING ASSISTANT Respiratory Rule-Out 05/06/2024 05/06/2024 025 9:20 AM TRAINING ASSISTANT COVID - 05/06/2024 05/06/2024 05/06/2024 9:19 AM TRAINING ASSISTANT Assessment Noted Time PHQ-9 Depression Total Score: 18 023 9:24 AM CDT documented as of this encounter Care Teams Roofing Machine Operator Relationship Specialty Start Date End Date Rebeka Trinidad MD [address] [place] [address] PCP - General Family Medicine 03/26/23 03/29/24 Lorri Leo APRN, HEALTH AND HUMAN PERFORMANCE PROFESSOR [address] [place] [address] PCP - General Certified Nurse Practitioner 03/30/24 04/20/24 Rebeka Trinidad MD [address] [place] [address] PCP - General Family Medicine 04/21/24 04/21/24 Lorri Leo APRN, HEALTH AND HUMAN PERFORMANCE PROFESSOR [address] [place] [address] PCP - General Certified Nurse Practitioner 04/22/24 05/30/24 Tani Biggs PAC [address] [place] [address] PCP - General Physician Autocad Designer 05/31/24 Phil Jacobo MD [address] [place] [address] Consulting Physician Neurology 03/07/21 Rajiv Mccormack, LICENSED ESTHETICIAN [address] [place] [address] Nurse Practitioner Gastroenterology 03/07/21 Alize Acosta, CONTENT MANAGER, HEALTH AND HUMAN PERFORMANCE PROFESSOR [address] [place] [address] [facility] (VAC) DETECTIVE NARCOTICS AND VICE Advanced Practice Nurse 08/30/21 Dayo Chaney MD [address] [place] [address] Mailing Clerk Cardiovascular Disease - Cardiology 09/20/21 02/12/24 Juanita Mercado RN [place] Registered Nurse Cardiology 12/24/21 02/12/24 David Salmon MD #[address] [address] Consulting Physician Endocrinology 01/15/22 Maurilio Farley MD #[address] [address] Consulting Physician Colon and Rectal Surgery 09/20/22 Dom Quiñonez MD #2 [place] [address] Consulting Physician Pulmonary Disease 11/19/21 Rachelle Nava, CONTENT MANAGER, GRADER MARKER [address] [place] [address] Nurse Practitioner Advanced Practice Nurse 07/19/22 Irais Naylor, CONTENT MANAGER, HEALTH AND HUMAN PERFORMANCE PROFESSOR [address] [place] [facility] [address] [place] [address] Nurse Practitioner Cardiology 06/27/23 07/29/24 Sharri Gaspar MD 2 [facility] [place] [facility], [place] [place] [address] Consulting Physician Cardiology 04/26/24 Amber Aldrich APRN, HEALTH AND HUMAN PERFORMANCE PROFESSOR #[address] [place] [address] Nurse Practitioner Cardiology 07/30/24 documented as of this encounter
--- OUTSIDE RECORDS SUMMARY | 2024-12-03 01:28 | XMS_ITS | Encounter Summary ---
Author Organization [facility] Address [address] [place] [address] Phone Care Team Providers Care Racing Board Marker Name Role Phone Phil Jacobo MD Unavailable [phone] Rajiv Mccormack NP Unavailable Unavailable Alize Acosta APRN, BROACH TROUBLE SHOOTER Unavailable David Salmon MD Unavailable Maurilio Farley MD Unavailable Dom Quiñonez MD Unavailable Rachelle Nava BATCH OPERATOR, TEN PIN BOWLING CENTRE MANAGER Unavailable + [phone] Irais Naylor BATCH OPERATOR, BROACH TROUBLE SHOOTER Unavailable + [phone] Lorri Leo APRN, BROACH TROUBLE SHOOTER Primary Care Provider + [phone] Rebeka Trinidad MD Primary Care Provider + [phone] Lorri Leo BATCH OPERATOR, BROACH TROUBLE SHOOTER Primary Care Provider + [phone] Sharri Gaspar MD Unavailable Tani Biggs PAC Primary Care Provider [phone] Amber Aldrich BATCH OPERATOR, BROACH TROUBLE SHOOTER Unavailable Reason for Referral * PT/OT/ST (Routine) - Open Specialty Diagnoses / Procedures Referred By Harika t Referred To Contact Physical Therapy Diagnoses Spinal stenosis, lumbar region without neurogenic claudication Li Castañead APN, BROACH TROUBLE SHOOTER [address] [place] [address] Phone: tel: fax: [facility] [address] [facility], [address] [address] Phone: tel: fax: Referral ID Status Reason Start Date Expiration Date Visits Re quested Visits Authorized [id number] Open 04/08/2024 50 10 Scheduling Instructions [facility] Encounter Details Date Type Department Care Team (Latest Contact Info) Description 04/08/2024 Transcribe Orders [facility] [address] [place] [address] Li Castañeda APN, BROACH TROUBLE SHOOTER [address] [place] [address] Spinal stenosis, lumbar region without neurogenic claudication (Primary Dx) Social History Tobacco Use Types Packs/Day Years Used Date Smoking Tobacco: Every Day Cigarettes 1 37.1 Started: 1984; Last attempted to quit: 04/12/2021 Smokeless Tobacco: Never Alcohol Use Standard Drinks/Week Comments Not Currently 0 (1 standard drink = 0.6 oz pur e alcohol) Last drink in 2020 [facility] Utilities Answer Date Recorded In the past 12 months has [employer], gas, oil, or water [employer] threatened to shut off services in your home? No 03/22/2024 Social Connection and Isolation Panel Answer Date Recorded In a typical week, how many times do you talk on the phone with family, friends, or neighbors? Once a week 03/22/19 How often do you get togethe r with friends or relatives? Never 03/22/2024 How often do you attend chur ch or baptist services? 1 to 4 times [...] Total Score - Questions 1-9 21 03/10 [facility] - Occupational Stress Questionnaire Answer Date Recorded [...] place to sleep or slept in a prison (including now)? No 03/24/2023 Housing Stability Vital Sign Answer Jovany e Recorded In the last 12 months, was t here a time when you were not able to pay the mortgage or rent on time? Yes 03/22/2024 In the past 12 months, how m any times have you moved where you were living? 0 03/22/2024 At any time in the past 12 m [facility], were you homeless or living in a prison (including now)? 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 Not on file Not on file documented as of this encounter Plan of Treatment Upcoming Encounters Date Type Department Care Team (Late st Contact Info) Description 12/10/2024 2:40 PM CDT Telemedicine [facility] [address] [place] [address] 01/03/2025 11:30 AM CDT Office Visit [facility] - Neurology [facility] [address] [place] [address] Rachelle Nava, BATCH OPERATOR, TEN PIN BOWLING CENTRE MANAGER [address] [place] [address] 02/11/2025 2:00 PM CHAPLAINCY Telemedicine [facility] [address] [place] [address] 02/16/2025 2:00 PM CHAPLAINCY Telemedicine [facility] [address] [place] [address] Alize Acosta, BATCH OPERATOR, BROACH TROUBLE SHOOTER [address] [place] [address] 02/21/2025 3:45 PM CHAPLAINCY Office Visit [facility] Medical [facility] - Endocrinology - [place] [address] [place] [address] David Salmon MD #[address] [address] 03/04/2025 3:10 PM [facility]LAINCY [facility] [place] [address] [place] [address] 03/04/2025 3:30 PM CHAPLAINCY Office Visit [facility] - Primary Care - [place] [address] [place] [address] Tani Biggs, [facility] [address] [place] [address] 03/17/2025 1:30 PM [facility]INCY [facility] [address] [place] [address] Melony Asif PAC [address] [place] [address] Discharge Disposition: Discharged to home or Selfcare 03/25/2025 1:20 PM [facility]LAINCY [facility] [address] [place] [address] Melony Asif Stacey, PAC [address] [place] [address] Discharge Disposition: Discharged to home or Selfcare 04/25/2025 2:00 PM CHAPLAINCY Office Visit [facility] - Cardiology - [place] [address] [place] [address] Laisha Griffin, DO [address] [address] 07/18/2025 1:00 PM CDT Office Visit [facility] - Pulmonology & Sleep Medicine [facility] [address] [place] [address] Dom Quiñonez MD [address] [place] [address] Scheduled Referrals Name Type Priority Associated Diagnoses [...] Readiness to change: Department associated with goal: [facility]VANC[facility] CARE Steps to achieve goal: Walking 5 days a week I want to be able to be around people and feel less depressed. Behavioral Health Worsening(0 09/22/2023 3:12 PM CDT) Yes Hilda Tinajero ASSOCIATE PRODUCER Note: Goal/Objective: Decrease symptoms of depression and [...] diet Depression Depression Improving(0 03/15/2022 2:27 PM CHAPLAINCY) No Breanne Saldana LCSW Note: Goal/Objective: Decrease [...] 19 04/18/2024 04/18/2024 04/18/2024 10:4 7 PM CHAPLAINCY Respiratory Rule-Out 05/06/2024 05/06/2024 025 9:20 AM CHAPLAINCY COVID - 19 05/06/2024 05/06/2024 05/06/2024 9:19 AM CHAPLAINCY Assessment Noted Time PHQ-9 Depression Total Score: 21 025 4:05 PM CHAPLAINCY documented as of this encounter Care Teams Racing Board Marker Relationship Specialty Start Date End Date Lorri Leo APRN, BROACH TROUBLE SHOOTER [address] [place] [address] PCP - General Certified Nurse Practitioner 03/30/24 04/20/24 Rebeka Trinidad MD [address] [place] [address] PCP - General Family Medicine 04/21/24 04/21/24 Lorri Leo APRN, BROACH TROUBLE SHOOTER [address] [place], [place] [address] PCP - General Certified Nurse Practitioner 04/22/24 05/30/24 Tani Biggs, PAC [address] [place] [address] PCP - General Physician Wood Casket Assembler 05/31/24 Phil Jacobo MD [address] [place] [address] Consulting Physician Neurology 03/07/21 Rajiv Mccormack, BUILDING MAINTENANCE ENGINEER [address] [place] [address] Nurse Practitioner Gastroenterology 03/07/21 Alize Acosta APRN, BROACH TROUBLE SHOOTER [address] [place] [address] Virtual [facility] (VAC) DIALYSIS REGISTERED NURSE Advanced Practice Nurse 08/30/21 David Salmon MD #[address] [address] Consulting Physician Endocrinology 01/15/22 Maurilio Farley MD #[address] [address] Consulting Physician Colon and Rectal Surgery 09/20/22 Dom Quiñonez MD #[address] [place] [address] Consulting Physician Pulmonary Disease 11/19/21 Rachelle Nava, BATCH OPERATOR, TEN PIN BOWLING CENTRE MANAGER [address] [place] [address] Nurse Practitioner Advanced Practice Nurse 07/19/22 Irais Naylor, BATCH OPERATOR, BROACH TROUBLE SHOOTER #[address] [address] Nurse Practitioner Cardiology 06/27/23 07/29/24 Sharri Gaspar MD [address] [address] Consulting Physician Cardiology 04/26/24 Amber Aldrich APRN, BROACH TROUBLE SHOOTER [address] [place] [address] Nurse Practitioner Cardiology 07/30/24 documented as of this encounter
--- OUTSIDE RECORDS SUMMARY | 2024-12-03 01:28 | XMS_ITS | Encounter Summary ---
Author Organization [facility] Address [address] [place] [address] Phone Care Team Providers Care Maintenance Tech Name Role Phone Jackeline Dimas CANDLEMAKING LABORER, INTERIOR ASSEMBLIES DEVELOPER PROVER Primary Care Provider Phil Jacobo MD Unavailable [phone] Rajiv Mccormack NP Unavailable Unavailable Alize Acosta CANDLEMAKING LABORER, INTERIOR ASSEMBLIES DEVELOPER PROVER Unavailable [phone] Dayo Chaney MD Unavailable Juanita Hauser RN Unavailable UnavailDavid Alexandre MD Unavailable Emilia Tang MD Primary Care Provider [phone] Maurilio Farley MD Unavailable Physician, Candida Davis MD Unavailable Rebeka Trinidad MD Primary Care Provider + [phone] Dom Quiñonez MD Unavailable Rachelle Nava CANDLEMAKING LABORER, PROFESSIONAL SECURITY OFFICER Unavailable + [phone] Irais Naylor CANDLEMAKING LABORER, INTERIOR ASSEMBLIES DEVELOPER PROVER Unavailable + [phone] Lorri Leo CANDLEMAKING LABORER, INTERIOR ASSEMBLIES DEVELOPER [place] Primary Care Provider [phone] Rebeka Trinidad MD Primary Care Provider + [phone] Ahmet Lorri M CANDLEMAKING LABORER, [facility] Primary Care Provider + [phone] Sharri Gaspar MD Unavailable Kalyan Tani B [facility] Primary Care Provider [phone] Amber Aldrich APRN, [facility] Unavailable Reason for Visit * Reason Onset Date Comments Medication Refill 04/19/2022 Encounter Details Date Type Department Care Team (Late st Contact Info) Description 04/19/2022 Refill [facility] Advanced Care [address] [place] [phone] Meli Rosenthal, RN [place] Medication Refill Social [...] 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 No / Unsure 04/11/2022 12:32 PM SEISMIC INTERPRETER documented as of this encounter Miscellaneous Notes * Telephone Encounter - Meli Rosenthal, RN - 04/19/2022 4:27 PM SEISMIC INTERPRETER Patient requesting refill of hydroxyzine 25mg. Last filled on 03/23/22 for #60 with 0 refills. Last routine visit: 04/11/22 with [facility]/testin02/23/22 Upcoming visits: none currently scheduled with [facility] CANDLEMAKING LABORER Refill pending for your review and approval. All questions and concerns were answered. Will await recommendations. MIC INTERPRETER documented in this encounter Plan of Treatment Upcoming Encounters Date Type Department Care Team (Late st Contact Info) Description 12/10/2024 2:40 PM CDT Telemedicine [facility] [address] [place] [address] 01/03/2025 11:30 AM CDT Office [facility] - Neurology - [place] [address] [place] [address] Rachelle Nava APRN, PROFESSIONAL SECURITY OFFICER [address] [place] [address] 02/11/2025 2:00 PM SEISMIC INTERPRETER Telemedicine [facility] [address] [place] [address] 02/16/2025 2:00 PM SEISMIC INTERPRETER Telemedicine [facility] [address] [place] [address] Alize Acosta APRN, INTERIOR ASSEMBLIES DEVELOPER [place] [address] [place] [address] 02/21/2025 3:45 PM SEISMIC INTERPRETER Office Visit [facility] - Endocrinology - [place] [address] [place] [address] David Salmon MD #[address] [address] 03/04/2025 3:10 PM SEISMIC INTERPRETER [facility] - [place] [address] [place] [address] 03/04/2025 3:30 PM SEISMIC INTERPRETER Office [facility] - Primary Care - [place] [address] [place] [address] Tani Biggs, PAC [address] [place] [address] 03/17/2025 1:30 PM SEISMIC INTERPRETER [facility] [address] [place] [address] Melony Asif Stacey, PAC [address] [place] [address] Discharge Disposition: Discharged to home or Selfcare 03/25/2025 1:20 PM SEISMIC INTERPRETER Office Visit [facility] Oncology Services [address] [place] [address] Melony Asif Stacey, PAC [address] [place] [address] Discharge Disposition: Discharged to home or Selfcare 04/25/2025 2:00 PM SEISMIC INTERPRETER [facility] - Cardiology - [place] [address] [place] [address] Laisha Griffin DO [address] [address] 07/18/2025 1:00 PM CDT Office Visit [facility] - Pulmonology & Sleep Medicine [facility] #[address] [place] [address] Dom Quiñonez MD [address] [place] [address] documented as of this encounter Goals Goal [...] as recommended. Depression Depression Improving( 2:27 PM SEISMIC INTERPRETER) No Breanne Saldana LCSW Note: Goal/Objective: Decrease [...] 19 04/18/2024 04/18/2024 04/18/2024 10:4 7 PM SEISMIC INTERPRETER Respiratory Rule-Out 05/06/2024 05/06/2024 025 9:20 AM SEISMIC INTERPRETER COVID - 19 05/06/2024 05/06/2024 05/06/2024 9:19 AM SEISMIC INTERPRETER Assessment Noted Time PHQ-9 Depression Total Score: 24 022 3:31 PM SEISMIC INTERPRETER documented as of this encounter Care Teams Maintenance Tech Relationship Specialty Start Date End Date Jackeline Dimas CANDLEMAKING LABORER, INTERIOR ASSEMBLIES DEVELOPER [place] [address] [place] [address] PCP - General Advanced Practice Nurse 07/31/17 Emilia Tang MD [address] [place] [address] PCP - General Family Medicine 06/07/22 03/25/23 Rebeka Trinidad MD [address] [place] [address] PCP - General Family Medicine 03/26/23 03/29/24 Lorri Leo APRN, INTERIOR ASSEMBLIES DEVELOPER [place] [address] [place] [address] PCP - General Certified Nurse Practitioner 03/30/24 04/20/24 Rebeka Trinidad MD [address] [place] [address] PCP - General Family Medicine 04/21/24 04/21/24 Lorri Leo APRN, INTERIOR ASSEMBLIES DEVELOPER [place] [address] [place] [id number] PCP - General Certified Nurse Practitioner 04/22/24 05/30/24 Tani Biggs, PAC [address] [place] [address] PCP - General Physician Coating Inspector 05/31/24 Phil Jacobo MD [address] [place] [address] Consulting Physician Neurology 03/07/21 Rajiv Mccormack, KELI [address] [place] [address] Nurse Practitioner Gastroenterology 03/07/21 Alize Acosta, CANDLEMAKING LABORER, INTERIOR ASSEMBLIES DEVELOPER [place] [address] [place] [address] Virtual [facility] Care (VAC) SUPPLY CHAIN PROJECT MANAGER Advanced Practice Nurse 08/30/21 Dayo Chaney MD [address] [place] [address] [employer] Cardiovascular Disease - Cardiology 09/20/21 02/12/24 Juanita Mercado RN [place] Registered Nurse Cardiology 12/24/21 02/12/24 David Salmon MD #[address] [phone] Consulting Physician Endocrinology 01/15/22 Maurilio Farley MD #[address] [address] Consulting Physician Colon and Rectal Surgery 09/20/22 Physician, Candida Davis MD [address] [place], [place] [address] Family Medicine 01/25/22 03/18/23 Dom Quiñonez MD #[address] [place] [address] Consulting Physician Pulmonary Disease 11/19/21 Rachelle Nava APRN, PROFESSIONAL SECURITY OFFICER [address] [place] [address] Nurse Practitioner Advanced Practice Nurse 07/19/22 Irais Naylor APRN, INTERIOR ASSEMBLIES DEVELOPER [place] #[address] [address] Nurse Practitioner Cardiology 06/27/23 07/29/24 Sharri Gaspar MD 2 [facility] [place] [address] [address] Consulting Physician Cardiology 04/26/24 Amber Aldrich APRN, INTERIOR ASSEMBLIES DEVELOPER [place] [address] [place] [address] Nurse Practitioner Cardiology 07/30/24 documented as of this encounter
--- OUTSIDE RECORDS SUMMARY | 2024-12-03 01:28 | XMS_ITS | Encounter Summary ---
Author Organization [facility] Address [address] [place] [address] Phone Care Team Providers Care Ore Roaster Name Role Phone Phil Jacobo MD Unavailable [phone] Rajiv Mccormack NP Unavailable Unavailable Alize Acosta COMMERCIAL REAL ESTATE ATTORNEY, SERVICE STATION ATTENDANT Unavailable [phone] David Salmon MD Unavailable Maurilio Farley MD Unavailable Dom Quiñonez MD Unavailable Rachelle Nava COMMERCIAL REAL ESTATE ATTORNEY, PUBLISHING MANAGER Unavailable + [phone] Irais Naylor COMMERCIAL REAL ESTATE ATTORNEY, SERVICE STATION ATTENDANT Unavailable + [phone] Rebeka Trinidad MD Primary Care Provider + [phone] Lorri Leo COMMERCIAL REAL ESTATE ATTORNEY, SERVICE STATION ATTENDANT Primary Care Provider + [phone] Sharri Gaspar MD Unavailable Tani Biggs Primary Care Provider [phone] Amber Aldrich COMMERCIAL REAL ESTATE ATTORNEY, SERVICE STATION ATTENDANT Unavailable Encounter Details Date Type Department Care Team (Late st Contact Info) Description 04/21/2024 Telephone [facility] Oncology Services [address] [place] [address] Melony Asif Stacey, PAC [address] [place] [address] Social History Tobacco Use Types Packs/Day Years Used Date Smoking Tobacco: Every Day Cigarettes 1 37.1 Started: 1984; Last attempted to quit: 04/12/2021 Smokeless Tobacco: Never Alcohol Use Standard Drinks/Week Comments Not Currently 0 (1 standard drink = 0.6 oz pur e alcohol) Last drink in 2020 [facility] Utilities Answer Date Recorded In [...] often do you attend chur ch or jainism services? 1 to 4 times per year 03/22/2024 Do you belong to any clubs o r organizations such as buddhist groups, unions, fraternal or athletic groups, or [...] Score - Questions 1-9 19 /0 06/2024 [facility] - Occupational Stress Questionnaire Answer Date Recorded [...] in a assisted (including now)? No 03/24/2023 Housing Stability Vital [...] time in the past 12 m [facility], were you homeless or living in a assisted (including now)? 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 I reached out to the patient after the PA reviewed her chart informing her to please complete ordered labs. The patient will contact the office to schedule a follow up 3-5 days after lab work. RTMENT OF MATHEMATICS CHAIR documented in this encounter Plan of Treatment Upcoming Encounters Date Type Department Care Team (Late st Contact Info) Description 12/10/2024 2:40 PM CDT Telemedicine [facility] [address] [place] [address] 01/03/2025 11:30 AM CDT [facility] - [place] [address] [place] [address] Rachelle Nava APRN, PUBLISHING MANAGER #[address] [place] [address] 02/11/2025 2:00 PM DEPARTMENT OF MATHEMATICS CHAIR Telemedicine [facility] [address] [place] [address] 02/16/2025 2:00 PM DEPARTMENT OF MATHEMATICS CHAIR Telemedicine [facility] [address] [place] [address] Alize Acosta APRN, SERVICE STATION ATTENDANT [address] [place] [address] 02/21/2025 3:45 PM DEPARTMENT OF MATHEMATICS CHAIR [facility] End[facility]inology - [place] [address] [place] [address] David Salmon MD #[address] [address] 03/04/2025 3:10 PM DEPARTMENT OF MATHEMATICS CHAIR Lab [facility] Primary Care - [place] [address] [place] [address] 03/04/2025 3:30 PM DEPARTMENT OF MATHEMATICS CHAIR Office Visit [facility] Primary Care - [place] [address] [place] [address] Tani Biggs, PAC [address] [place] [address] 03/17/2025 1:30 PM DEPARTMENT OF MATHEMATICS CHAIR [facility] [address] [place] [address] Melony Asif, PAC [address] [place] [address] Discharge Disposition: Discharged to home or Selfcare 03/25/2025 1:20 PM DEPARTMENT OF MATHEMATICS CHAIR Office Visit [facility] Oncology Services [address] [place] [address] Melony Asif, PAC [address] [place] [address] Discharge Disposition: Discharged to home or Selfcare 04/25/2025 2:00 PM DEPARTMENT OF MATHEMATICS CHAIR [facility] [place] [address] [place] [address] GriffinLaisha baez, DO 2 [facility] [address] [address] 07/18/2025 1:00 PM CDT Office [facility] Medical [facility] - Pulmonology & Sleep Medicine [facility] [address] [place] [address] Dom Quiñonez MD #[address] [place] [address] documented as of this encounter Goals Goal Patient Goal Type Associated Problems Recent Progress Patient-Stated? Author ACTIVITY Activity No change(08/08 2:42 PM CDT) Yes Maritza Vanegas, RN Note: Bonny will walk five days a week. Goal Reviewed with: Bonny Readiness to change: Department associated with goal: [facility] Steps to achieve goal: Walking 5 days a week I want to be able to be around people and feel less depressed. Behavioral Health Worsening(0 09/22/2023 3:12 PM CDT) Yes Hilda Tinajero BRAND MGR Note: Goal/Objective: Decrease symptoms of depression and [...] diet Depression Depression Improving(0 03/15/2022 2:27 PM DEPARTMENT OF MATHEMATICS CHAIR) No Breanne Saldana LCSW Note: Goal/Objective: Decrease [...] Respiratory Rule-Out 05/06/2024 05/06/2024 025 9:20 AM DEPARTMENT OF MATHEMATICS CHAIR COVID - 19 05/06/2024 05/06/2024 05/06/2024 9:19 AM DEPARTMENT OF MATHEMATICS CHAIR Assessment Noted Time PHQ-9 Depression Total Score: 19 025 1:00 PM DEPARTMENT OF MATHEMATICS CHAIR documented as of this encounter Care Teams Ore Roaster Relationship Specialty Start Date End Date Rebeka Trinidad MD [address] [place] [address] PCP - General Family Medicine 04/21/24 04/21/24 Lorri Leo, COMMERCIAL REAL ESTATE ATTORNEY, SERVICE STATION ATTENDANT [address] [place] [address] PCP - General Certified Nurse Practitioner 04/22/24 05/30/24 Tani Biggs, PAC [address] [place] [address] PCP - General Physician Cable Tv Installer 05/31/24 Phil Jacobo MD #[address] [place] [address] Consulting Physician Neurology 03/07/21 Rajiv Mccormack, BRANCH ASSOCIATE [address] [place] [address] Nurse Practitioner Gastroenterology 03/07/21 Alize Acosta, RUSSELL, SERVICE STATION ATTENDANT [facility] [place] [address] Virtual Advanced Care (VAC) MANAGER SALES SUPPORT Advanced Practice Nurse 08/30/21 David Salmon MD #[address] [address] Consulting Physician Endocrinology 01/15/22 Maurilio Farley MD #[address] [id number] Consulting Physician Colon and Rectal Surgery 09/20/22 Dom Quiñonez MD #2 [place] [address] Consulting Physician Pulmonary Disease 11/19/21 Rachelle Nava, COMMERCIAL REAL ESTATE ATTORNEY, PUBLISHING MANAGER #[address] [place] [address] Nurse Practitioner Advanced Practice Nurse 07/19/22 Irais Naylor APRN, SERVICE STATION ATTENDANT #2 [facility] [address] [place] [address] Nurse Practitioner Cardiology 06/27/23 07/29/24 Sharri Gaspar MD [address] [facility] [address] [place] [address] Consulting Physician Cardiology 04/26/24 Amber Aldrich APRN, SERVICE STATION ATTENDANT #[address] [place] [address] Nurse Practitioner Cardiology 07/30/24 documented as of this encounter
--- OUTSIDE RECORDS SUMMARY | 2024-12-03 01:28 | XMS_ITS | Encounter Summary ---
Author Organization [facility] Address [address] [place] [address] Phone Care Team Providers Care Fancy Stitcher Name Role Phone Jackeline Dimas MACHINE SETTER AND REPAIRER, SUPERVISOR COATING Primary Care Provider Phil Jacobo MD Unavailable [phone] Rajiv Mccormack NP Unavailable Unavailable Alize Acosta MACHINE SETTER AND REPAIRER, SUPERVISOR COATING Unavailable +[phone] Dayo Chaney MD Unavailable Juanita Hauser RN Unavailable UnavailDavid Alexandre MD Unavailable Emilia Tang MD Primary Care Provider [phone] Maurilio Farley MD Unavailable Physician, Candida Davis MD Unavailable Rebeka Trinidad MD Primary Care Provider + [phone] Dom Quiñonez MD Unavailable Rachelle Nava MACHINE SETTER AND REPAIRER, LEAD DESIGNER Unavailable + [phone] Irais Naylor MACHINE SETTER AND REPAIRER, SUPERVISOR COATING Unavailable + [phone] Lorri Leo MACHINE SETTER AND REPAIRER, SUPERVISOR COATING Primary Care Provider [phone] Rebeka Trinidad MD Primary Care Provider + [phone] Ahmet Lorri M MACHINE SETTER AND REPAIRER, [facility] Primary Care Provider + [phone] Sharri Gaspar MD Unavailable Tani Biggs [facility] Primary Care Provider + [phone] Amber Aldrich MACHINE SETTER AND REPAIRER, [facility] Unavailable Reason for Visit * Reason Comments Medication Refill Encounter Details Date Type Department Care Team (Late st Contact Info) Description 03/30/2022 Refill [facility] - Primary Care - [place] [address] [place] [address] Jackeline Dimas MACHINE SETTER AND REPAIRER, [facility] [address] [place] [address] Medication Refill Social History Tobacco [...] 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 No / Unsure 04/01/2022 1:35 PM SALES PROJECT ENGINEER documented as of this encounter Miscellaneous Notes * Telephone Encounter - Indira Lopez RN - 04/01/2022 8:58 AM SALES PROJECT ENGINEER Refill requested too soon. S PROJECT ENGINEER documented in this encounter Plan of Treatment Upcoming Encounters Date Type Department Care Team (Late st Contact Info) Description 12/10/2024 2:40 PM CDT Telemedicine [facility] [address] [place] [address] 01/03/2025 11:30 AM CDT Office Visit [facility] - Neurology - [place] [address] [place] [address] Rachelle Nava APRN, LEAD DESIGNER [address] [place] [address] 02/11/2025 2:00 PM SALES PROJECT ENGINEER Telemedicine [facility] [address] [place] [address] 02/16/2025 2:00 PM SALES PROJECT ENGINEER Telemedicine [facility] [address] [place] [address] Alize Acosta, MACHINE SETTER AND REPAIRER, SUPERVISOR COATING [address] [place] [address] 02/21/2025 3:45 PM SALES PROJECT ENGINEER Office Visit [facility] Medical [facility] - Endocrinology - [place] [address] [place] [address] David Salmon MD #[address] [address] 03/04/2025 3:10 PM SALES PROJECT ENGINEER Lab [facility] - Primary Care - [place] [address] [place] [address] 03/04/2025 3:30 PM SALES PROJECT ENGINEER Office Visit [facility] - [place] [address] Tani Biggs, [facility] [address] [place] [address] 03/17/2025 1:30 PM SALES PROJECT ENGINEER Lab [facility] Oncology Services [address] [place] [address] AsifMelony kumari Stacey, PAC [address] [place] [address] Discharge Disposition: Discharged to home or Selfcare 03/25/2025 1:20 PM SALES PROJECT ENGINEER Office Visit [facility] Oncology Services [address] [place] [address] Melony Asif Stacey, [facility] [address] [place] [address] Discharge Disposition: Discharged to home or Selfcare 04/25/2025 2:00 PM SALES PROJECT ENGINEER Office Visit [facility] - Cardiology - [place] [address] [place] [address] Laisha Griffin, DO [address] [address] 07/18/2025 1:00 PM CDT Office Visit [facility] - Pulmonology & Sleep Medicine [facility] #[address] [place] [address] Dom Quiñonez MD #[address] [place] [address] documented as of this encounter [...] as recommended. Depression Depression Improving( 2:27 PM SALES PROJECT ENGINEER) No Breanne Saldana, METALSMITH APPRENTICE Note: Goal/Objective: Decrease symptoms of depression associated [...] 19 04/18/2024 04/18/2024 04/18/2024 10:4 7 PM SALES PROJECT ENGINEER Respiratory Rule-Out 05/06/2024 05/06/2024 025 9:20 AM SALES PROJECT ENGINEER COVID - 19 05/06/2024 05/06/2024 05/06/2024 9:19 AM SALES PROJECT ENGINEER Assessment Noted Time PHQ-9 Depression Total Score: 24 022 3:31 PM SALES PROJECT ENGINEER documented as of this encounter Care Teams Fancy Stitcher Relationship Specialty Start Date End Date Jackeline Dimas APRN, SUPERVISOR COATING [address] [place] [address] PCP - General Advanced Practice Nurse 07/31/17 Emilia Tang MD [address] [place] [address] PCP - General Family Medicine 06/07/22 03/25/23 Rebeka Trinidad MD [address] [place] [address] PCP - General Family Medicine 03/26/23 03/29/24 Lorri Leo APRN, SUPERVISOR COATING [address] [place] [address] PCP - General Certified Nurse Practitioner 03/30/24 04/20/24 Rebeka Trinidad MD [address] [place] [address] PCP - General Family Medicine 04/21/24 04/21/24 Lorri Leo APRN, SUPERVISOR COATING [address] [place] [address] PCP - General Certified Nurse Practitioner 04/22/24 05/30/24 Tani Biggs, PAC [address] [place] [address] PCP - General Physician Complaint Analyst 05/31/24 Phil Jacobo MD #[address] [place] [address] Consulting Physician Neurology 03/07/21 Rajiv Mccormack, KELI [address] [place] [address] Nurse Practitioner Gastroenterology 03/07/21 Alize Acosta APRN, SUPERVISOR COATING [address] [place] [address] Virtual Advanced Care (VAC) XEROX MACHINE ASSEMBLER Advanced Practice Nurse 08/30/21 Dayo Chaney MD [address] [place] [address] Sap Pi Architect Cardiovascular Disease - Cardiology 09/20/21 02/12/24 Juanita Mercado, SE[place]STIAN [place] Registered Nurse Cardiology 12/24/21 02/12/24 David Salmon MD #[address] [address] Consulting Physician Endocrinology 01/15/22 Maurilio Farley MD #[address] [address] Consulting Physician Colon and Rectal Surgery 09/20/22 PhysicianCandida MD [address] [place] [address] Family Medicine 01/25/22 03/18/23 Dom Quiñonez MD #[address] [place] [address] Consulting Physician Pulmonary Disease 11/19/21 Rachelle Nava, MACHINE SETTER AND REPAIRER, LEAD DESIGNER #[address] [place] [address] Nurse Practitioner Advanced Practice Nurse 07/19/22 Irais Naylor, MACHINE SETTER AND REPAIRER, SUPERVISOR COATING #2 [facility] [address] [place] [address] Nurse Practitioner Cardiology 06/27/23 07/29/24 Sharri Gaspar MD 2 [facility] [address] [place] [address] Consulting Physician Cardiology 04/26/24 Amber Aldrich APRN, SUPERVISOR COATING #[address] [place] [address] Nurse Practitioner Cardiology 07/30/24 documented as of this encounter
--- OUTSIDE RECORDS SUMMARY | 2024-12-03 01:28 | XMS_ITS | Encounter Summary ---
Author Organization [facility] Address [address] [place] [address] Phone Care Team Providers Care Electrical/Instrument Technician Name Role Phone Jackeline Dimas CARDIOPULMONARY TECHNOLOGIST CHIEF, SOA INTEGRATION DEVELOPER Primary Care Provider Phil Jacobo MD Unavailable [phone] Rajiv Mccormack NP Unavailable Unavailable Alize Acosta CARDIOPULMONARY TECHNOLOGIST CHIEF, SOA INTEGRATION DEVELOPER Unavailable [phone] Dayo Chaney MD Unavailable Juanita Hauser RN Unavailable UnavailDavid Alexandre MD Unavailable Emilia Tang MD Primary Care Provider [phone] Maurilio Farley MD Unavailable Physician, Candida Davis MD Unavailable Rebeka Trinidad MD Primary Care Provider + [phone] Dom Quiñonez MD Unavailable Rachelle Nava CARDIOPULMONARY TECHNOLOGIST CHIEF, PHYSICIAN Unavailable + [phone] Irais Naylor CARDIOPULMONARY TECHNOLOGIST CHIEF, SOA INTEGRATION DEVELOPER Unavailable + [phone] Lorri Leo CARDIOPULMONARY TECHNOLOGIST CHIEF, SOA INTEGRATION DEVELOPER Primary Care Provider [phone] Rebeka Trinidad MD Primary Care Provider + [phone] Ahmet Lorri Annetta CARDIOPULMONARY TECHNOLOGIST CHIEF, [facility] Primary Care Provider + [phone] Sharri Gaspar MD Unavailable Kalyan Tani B [facility] Primary Care Provider [phone] Amber Aldrich APRN, [facility] Unavailable Reason for Visit * Reason Comments Medication Refill Encounter Details Date Type Department Care Team (Late st Contact Info) Description 03/31/2022 Refill [facility] - Endocr[facility]ology - [place] [address] [place] [address] David Salmon MD #[address] [address] Medication Refill Social History Tobacco [...] 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 No / Unsure 04/01/2022 1:35 PM CANDLE CUTTER documented as of this encounter Miscellaneous Notes * Telephone Encounter - Yesi Leggett RN - 04/01/2022 9:43 AM CANDLE CUTTER Requested Prescriptions Pending Prescriptions Disp Refills ??? Glucose Blood (OneTouch Verio) Strip [Pharmacy Med Name: ONE TOUCH VERIO TEST ST(NEW)100S] 200 Strip Sig: TEST BLOOD SUGAR TWICE DAILY Next appt: 04/30/2022 LE CUTTER documented in this encounter Plan of Treatment Upcoming Encounters Date Type Department Care Team (Late st Contact Info) Description 12/10/2024 2:40 PM CDT Telemedicine [facility] [address] [place] [address] 01/03/2025 11:30 AM CDT Office Visit [facility] - Neurology - [place] [address] [place] [address] Rachelle Nava APRN, PHYSICIAN #[address] [place] [address] 02/11/2025 2:00 PM CANDLE CUTTER Telemedicine [facility] [address] [place] [address] 02/16/2025 2:00 PM CANDLE CUTTER Telemedicine [facility] [address] [place] [address] Alize Acosta, RUSSELL, SOA INTEGRATION DEVELOPER [address] [place] [address] 02/21/2025 3:45 PM CANDLE CUTTER Office Visit [facility] Medical [facility] - Endocrinology - [place] [address] [place] [address] David Salmon MD #[address] [address] 03/04/2025 3:10 PM CANDLE CUTTER Lab [facility] - Primary Care - [place] [facility] [place] [address] 03/04/2025 3:30 PM CANDLE CUTTER [facility] - [place] [address] [place] [address] Tani Biggs PAC [address] [place] [address] 03/17/2025 1:30 PM CANDLE CUTTER [facility] [address] [place] [address] Melony Asif, PAC [address] [place] [address] Discharge Disposition: Discharged to home or Selfcare 03/25/2025 1:20 PM CANDLE CUTTER [facility] [address] [place] [address] Melony Asif, PAC [address] [place] [address] Discharge Disposition: Discharged to home or Selfcare 04/25/2025 2:00 PM CANDLE CUTTER [facility] [place] [address] [place] [address] Laisha Griffin, DO [address] [address] 07/18/2025 1:00 PM CDT Office Visit [facility] - Pulmonology & Sleep Medicine - [place] #[address] [place] [address] Dmo Quiñonez MD #[address] [place] [address] documented as of this encounter Goals Goal [...] as recommended. Depression Depression Improving( 2:27 PM CANDLE CUTTER) No Breanne Saldana, DIRECTOR COMMUNICATIONS Note: Goal/Objective: Decrease symptoms of depression associated [...] 19 04/18/2024 04/18/2024 04/18/2024 10:4 7 PM CANDLE CUTTER Respiratory Rule-Out 05/06/2024 05/06/2024 025 9:20 AM CANDLE CUTTER COVID - 19 05/06/2024 05/06/2024 05/06/2024 9:19 AM CANDLE CUTTER Assessment Noted Time PHQ-9 Depression Total Score: 24 022 3:31 PM CANDLE CUTTER documented as of this encounter Care Teams Electrical/Instrument Technician Relationship Specialty Start Date End Date Jackeline Dimas, CARDIOPULMONARY TECHNOLOGIST CHIEF, SOA INTEGRATION DEVELOPER [address] [place] [address] PCP - General Advanced Practice Nurse 07/31/17 Emilia Tang MD [address] [place] [address] PCP - General Family Medicine 06/07/22 03/25/23 Rebeka Trinidad MD [address] [place] [address] PCP - General Family Medicine 03/26/23 03/29/24 Lorri Leo APRN, SOA INTEGRATION DEVELOPER [address] [place] [address] PCP - General Certified Nurse Practitioner 03/30/24 04/20/24 Rebeka Trinidad MD [address] [place] [address] PCP - General Family Medicine 04/21/24 04/21/24 Lorri Leo APRN, SOA INTEGRATION DEVELOPER [address] [place] [address] PCP - General Certified Nurse Practitioner 04/22/24 05/30/24 Tani Biggs, PAC [address] [place] [address] PCP - General Physician Aerial Lineman 05/31/24 Phil Jacobo MD #[address] [place] [address] Consulting Physician Neurology 03/07/21 Rajiv Mccormack, KELI [address] [place] [address] Nurse Practitioner Gastroenterology 03/07/21 Alize Acosta, CARDIOPULMONARY TECHNOLOGIST CHIEF, SOA INTEGRATION DEVELOPER [facility]6 [place] [address] Virtual Advanced Care (VAC) SEASONAL RECRUITER Advanced Practice Nurse 08/30/21 Dayo Chaney MD [address] [place] [address] [place] Cardiovascular Disease - Cardiology 09/20/21 02/12/24 Juanita Mercado RN [place] Registered Nurse Cardiology 12/24/21 02/12/24 David Salmon MD #[address] [address] Consulting Physician Endocrinology 01/15/22 Maurilio Farley MD #[address] [address] Consulting Physician Colon and Rectal Surgery 09/20/22 PhysicianCandida MD [address] [place] [address] Family Medicine 01/25/22 03/18/23 Dom Quiñonez MD #[address] [place] [address] Consulting Physician Pulmonary Disease 11/19/21 Rachelle Nava APRN, PHYSICIAN #[address] [place] [address] Nurse Practitioner Advanced Practice Nurse 07/19/22 Irais Naylor APRN, SOA INTEGRATION DEVELOPER #2 [facility] [address] [place] [address] Nurse Practitioner Cardiology 06/27/23 07/29/24 Sharri Gaspar MD 2 [facility] [address] [place] [address] Consulting Physician Cardiology 04/26/24 Amber Aldrich APRN, SOA INTEGRATION DEVELOPER #[address] [place] [address] Nurse Practitioner Cardiology 07/30/24 documented as of this encounter
--- NOTE | 2024-12-03 06:50 | WPDANESEPPF ---
Anes - Initial Pre Proc Eval Procedure: Operation Date: 12/03/24 07:30 Proposed Procedures p Stereotactic Computer Assisted 7-D Posterior Lumbar Interbody Fusion at L5-S1 - Parmjit Beal MD Date/Time: 12/03/24 06:50 Surgeon: Parmjit Beal MD Pre Op Diagnosis: lumbar stenosis Patient Data Age: 54 Gender: F Height: 1.63 m Weight: 80.8 kg Last Vital Signs Temp 36.7 C 11/16/24 12:05 Pulse 82 11/16/24 12:05 Resp 16 11/16/24 12:05 BP 110/72 11/16/24 12:05 Pulse Ox 100 11/16/24 12:05 O2 Del Method Room Air 11/16/24 12:05 Allergies Allergy/AdvReac Type Severity Reaction Status Date / Time Penicillins Allergy Severe Difficulty Verified 11/16/24 11:59 Breathing bernabe Allergy Swelling Verified 11/16/24 11:59 of Lip/Tongue/Throat ketorolac (From Toradol) AdvReac Intermediate Unknown Verified 11/16/24 11:59 meclizine AdvReac Intermediate Unknown Verified 11/16/24 11:59 shrimp AdvReac Intermediate tingling Verified 11/16/24 11:59 in mouth moutain dew Allergy Other Uncoded 10/01/24 11:24 Home Medications ?Medication ?Instructions ?Recorded ?Confirmed ?Type albuterol sulfate 90 mcg/actuation 1 inh inhalation Q4H 08/19/22 11/16/24 History aerosol inhaler atorvastatin 80 mg tablet 80 mg PO DAILY 08/19/22 11/16/24 History cholecalciferol (vitamin D3) 25 25 mcg PO DAILY 08/19/22 11/16/24 History mcg (1,000 unit) capsule docusate sodium 100 mg capsule 100 mg PO DAILY 08/19/22 11/16/24 History epinephrine 0.3 mg/0.3 mL 0.3 mg IM ONCE 08/19/22 11/16/24 History injection, auto-injector furosemide 20 mg tablet 20 mg PO QAM 08/19/22 11/16/24 History pantoprazole 40 mg tablet,delayed 40 mg PO QAM 08/19/22 11/16/24 History release spironolactone 25 mg tablet 25 mg PO DAILY 08/19/22 11/16/24 History tirzepatide 5 mg/0.5 mL 5 mg subcut WEEKLY 08/19/22 11/16/24 History subcutaneous pen injector (Mounjaro) allopurinol 100 mg tablet 100 mg PO DAILY 04/07/24 11/16/24 History ascorbic acid (vitamin C) 500 mg 500 mg PO DAILY 04/07/24 11/16/24 History tablet aspirin 81 mg tablet,delayed 81 mg PO DAILY 04/07/24 11/16/24 History release famotidine 40 mg tablet 40 mg PO DAILY 04/07/24 11/16/24 History fexofenadine 180 mg tablet 180 mg PO DAILY 04/07/24 11/16/24 History ipratropium bromide 0.02 % 2.5 ml inhalation Q6H PRN 04/07/24 11/16/24 History solution for inhalation shortness of breath or wheezing naloxone 4 mg/actuation nasal 4 mg intranasal Q2-3M PRN opioid 04/07/24 11/16/24 History spray (Narcan) overdose tamsulosin 0.4 mg capsule 0.4 mg PO DAILY 04/07/24 11/16/24 History tizanidine 2 mg tablet 2 mg PO TID PRN muscle spasticity 04/07/24 11/16/24 History bupropion HCl 150 mg 24 hr tablet, 150 mg PO QAM 06/07/24 11/16/24 History extended release (Wellbutrin XL) empagliflozin 10 mg tablet 10 mg PO DAILY 06/07/24 11/16/24 History (Jardiance) venlafaxine 150 mg tablet,extended 150 mg PO DAILY 06/07/24 11/16/24 History release 24 hr glimepiride 2 mg tablet 2 mg PO DAILY 11/16/24 11/16/24 History Patient hx anesthesia problems: none Family hx anesthesia problems: none Results Review: All pre-operative results and documents have been reviewed as part of the pre-operative evaluation. [facility] Past Medical History Medical History Undifferentiated connective tissue disease Allergies Generalized osteoarthritis of multiple sites OLGA positive Gout Hypertension Heart disease Headache Diabetes CHF (congestive heart failure) Arthritis Asthma Family History Family History Mother Hypertension Diabetes mellitus Heart disease Sibling Heart disease Social History Social History (Updated 12/03/24 @ 06:54 by Cesar Bell MD) Smoking packs per day: 0.3 Smoking cigarettes per day: 6.0 Years smoked: 40 Smoking pack-years: 12.00 Smoking status: Current every day smoker Tobacco type: cigarettes Additional smoking assessment comments: Just restarted, had quit for 3 yrs, encouraged to quit again. Alcohol intake: never Substance use: never Substance use type: does not use Do You Feel Safe in your Home?: Yes Lack of Transportation: No Lack of Food: Sometimes True Current Housing: I Have Housing Concerned About Future Housing: No Difficulty Paying Gas/Electric Bills: No Difficulty Paying for Meds: No Currently Unemployed: No Education: High School Diploma/GED Difficulty w/ Childcare or Family Care: No Living arrangements: alone Spiritual care concerns: No Anes - Eval Final PreProcedure Day of Procedure 12/03/24 06:50 Patient weight: obese Heart: regular rate and rhythm Lungs: clear to auscultation Airway: Mallampati scale class II Last oral intake: >/= 8 hours ASA classification: IV Emergent: no Anesthetic plan: proceed Anesthesia type and monitoring: general ETT and standard monitoring Results Review: All pre-operative results and documents have been reviewed as part of the pre-operative evaluation. Informed Consent: The patient's anesthetic plan and its attendant risks and benefits were discussed with the patient/family/POA. Questions were solicited and answers provided to the satisfaction of the patient/family/POA.
[2024-12-03] MEDS: LACTATED RINGERS 1,000 ML 30 ML IV CONT ×2 (07:00→12:52)
[2024-12-03 07:09] LABS: INR 1.2; Prothrombin Time 15.0 Seconds (11.1-14.7)
--- NOTE | 2024-12-03 07:22 | WPDHPUPDATE1 ---
History and Physical Update Update Date/Time: 12/03/24 07:22 History and Physical has been reviewed, including an updated exam of the patient. There are NO changes in the patient's condition. Risks, benefits, and alternatives have been discussed and questions answered. Patient agrees to proceed with procedure.
--- NOTE | 2024-12-03 07:22 | PM.IMHP ---
H&P: HPI History of Present Illness Date/Time: 12/03/24 07:22 Chief Complaint: This is a 54-year-old female with L5-S1 significant lumbar spondylosis with severe arthritis bilaterally and moderate to severe foraminal narrowing bilaterally. She has failed conservative measures and I think may benefit from an L5-S1 posterior lumbar interbody fusion. [facility] Past Medical History Medical History Undifferentiated connective tissue disease Allergies Generalized osteoarthritis of multiple sites OLGA positive Gout Hypertension Heart disease Headache Diabetes CHF (congestive heart failure) Arthritis Asthma Family History Family History Mother Hypertension Diabetes mellitus Heart disease Sibling Heart disease Social History Social History (Updated 12/03/24 @ 06:54 by Cesar Bell MD) Smoking packs per day: 0.3 Smoking cigarettes per day: 6.0 Years smoked: 40 Smoking pack-years: 12.00 Smoking status: Current every day smoker Tobacco type: cigarettes Additional smoking assessment comments: Just restarted, had quit for 3 yrs, encouraged to quit again. Alcohol intake: never Substance use: never Substance use type: does not use Do You Feel Safe in your Home?: Yes Lack of Transportation: No Lack of Food: Sometimes True Current Housing: I Have Housing Concerned About Future Housing: No Difficulty Paying Gas/Electric Bills: No Difficulty Paying for Meds: No Currently Unemployed: No Education: High School Diploma/GED Difficulty w/ Childcare or Family Care: No Living arrangements: alone Spiritual care concerns: No Meds Home Medications and Allergies Home Medications ?Medication ?Instructions ?Recorded ?Confirmed ?Type albuterol sulfate 90 mcg/actuation 1 inh inhalation Q4H 08/19/22 11/16/24 History aerosol inhaler atorvastatin 80 mg tablet 80 mg PO DAILY 08/19/22 11/16/24 History cholecalciferol (vitamin D3) 25 25 mcg PO DAILY 08/19/22 11/16/24 History mcg (1,000 unit) capsule docusate sodium 100 mg capsule 100 mg PO DAILY 08/19/22 11/16/24 History epinephrine 0.3 mg/0.3 mL 0.3 mg IM ONCE 08/19/22 11/16/24 History injection, auto-injector furosemide 20 mg tablet 20 mg PO QAM 08/19/22 11/16/24 History pantoprazole 40 mg tablet,delayed 40 mg PO QAM 08/19/22 11/16/24 History release spironolactone 25 mg tablet 25 mg PO DAILY 08/19/22 11/16/24 History tirzepatide 5 mg/0.5 mL 5 mg subcut WEEKLY 08/19/22 11/16/24 History subcutaneous pen injector (Mounjaro) allopurinol 100 mg tablet 100 mg PO DAILY 04/07/24 11/16/24 History ascorbic acid (vitamin C) 500 mg 500 mg PO DAILY 04/07/24 11/16/24 History tablet aspirin 81 mg tablet,delayed 81 mg PO DAILY 04/07/24 11/16/24 History release famotidine 40 mg tablet 40 mg PO DAILY 04/07/24 11/16/24 History fexofenadine 180 mg tablet 180 mg PO DAILY 04/07/24 11/16/24 History ipratropium bromide 0.02 % 2.5 ml inhalation Q6H PRN 04/07/24 11/16/24 History solution for inhalation shortness of breath or wheezing naloxone 4 mg/actuation nasal 4 mg intranasal Q2-3M PRN opioid 04/07/24 11/16/24 History spray (Narcan) overdose tamsulosin 0.4 mg capsule 0.4 mg PO DAILY 04/07/24 11/16/24 History tizanidine 2 mg tablet 2 mg PO TID PRN muscle spasticity 04/07/24 11/16/24 History bupropion HCl 150 mg 24 hr tablet, 150 mg PO QAM 06/07/24 11/16/24 History extended release (Wellbutrin XL) empagliflozin 10 mg tablet 10 mg PO DAILY 06/07/24 11/16/24 History (Jardiance) venlafaxine 150 mg tablet,extended 150 mg PO DAILY 06/07/24 11/16/24 History release 24 hr glimepiride 2 mg tablet 2 mg PO DAILY 11/16/24 11/16/24 History Allergies Allergy/AdvReac Type Severity Reaction Status Date / Time Penicillins Allergy Severe Difficulty Verified 11/16/24 11:59 Breathing bernabe Allergy Swelling Verified 11/16/24 11:59 of Lip/Tongue/Throat ketorolac (From Toradol) AdvReac Intermediate Unknown Verified 11/16/24 11:59 meclizine AdvReac Intermediate Unknown Verified 11/16/24 11:59 shrimp AdvReac Intermediate tingling Verified 11/16/24 11:59 in mouth moutain dew Allergy Other Uncoded 10/01/24 11:24 Exam Chest: Other: normal respirations Cardio: Other: regular rate Neuro: Other: awake alert no acute distress moves BLE well 07/12 Assessment and Plan Assessment and plan (1) Lumbar stenosis: Code(s): M48.061 - Spinal stenosis, lumbar region without neurogenic claudication Status: Acute Plan This is a 54-year-old female with L5-S1 significant lumbar spondylosis with severe arthritis bilaterally and moderate to severe foraminal narrowing bilaterally. She has failed conservative measures and I think may benefit from an L5-S1 posterior lumbar interbody fusion.
[2024-12-03] MEDS: ceFAZolin 2 GM in SODIUM CHLORIDE 0.9% IV 50 ML 100 ML IVPB ×2 (07:38→17:25)
[2024-12-03] MEDS: BUPIVACAINE/EPINEPHRINE 0.5% 50 ML VIAL 30 ML INFILTRATE (08:24)
--- NOTE | 2024-12-03 12:08 | W.PM.PROC2 ---
Procedure Note - Detailed Date of Procedure 12/03/24 Pre-op Diagnosis lumbar neural foraminal stenosis Post-op Diagnosis Same Procedure Performed L5-S1 transforaminal lumbar interbody fusion L5-S1 bilateral lumbar laminectomy L5-S1 complete facetectomy bilaterally Diskectomy at left L5-S1 via transforaminal approach Arthrodesis from L5-S1 using local morselized autograft and Magnetos Posterolateral fusion from L5-S1 Use of neuro navigation Surgeon Parmjit Beal MD Anesthesia General Indications Severe bilateral foraminal stenosis Findings Severe bilateral foraminal stenosis Description of Procedure Once the patient is intubated the patient was positioned prone onto the open Aashish table. All bony prominences were padded. The patient was then marked terms of an incision from L5-S1 using lateral fluoroscopy as a guide. The patient was then prepped and draped in the usual sterile fashion. Final time-out was performed to indicate the correct patient procedure and site. Local an anesthetic was injected along the incision line. I made incision with a 10 blade down to the fascia. Hemostasis was obtained self-retaining retractors were placed. I then opened the fascia in the midline and performed a subperiosteal dissection off the spinous processes and lamina from L4-S1 this was so that I would have enough retraction of the tissues in order to visualize the L5-S1 level. Of note there was a significant amount of bleeding during the exposure despite being periosteum subperiosteal with dissection. The patient's blood pressure was noted to be systolic of 150s. The bleeding improved once the blood pressure was brought down. Hemostasis was obtained self-retaining retractors were placed. At this point we brought in the navigation 7 D system and placed the marker array onto the spinous process of the S1 level. A flash was obtained and good landmarks were obtained. I then used the navigation probe to place a starting point in line with what the navigation stated however unfortunately this appeared to be incorrect as I confirmed with a lateral fluoroscopy the shot that it was lower than anticipated. We then plate replaced the retractors and did additional exposure of the bone to get better visualization of landmarks and repeat set up the navigation. I marked were again confirmed and everything was identified to be accurate. I then placed my pedicle screws using navigation guidance in a standard fashion with the navigated 8 ball, navigated tap, navigated screw. Prior to placement of the screw all holes were felt with a ball-tipped Feeler and no medial breach was identified. Once all the screws were placed lateral and AP lateral fluoroscopy was obtained which indicated proper placement of implants. I placed 6.5 x 45 screw length that left L5 6.5 x 50 at right L5 and 6.5 x 40 at bilateral S1. Once the screws were placed the navigation system was removed the retractors were placed and proceeded to the decompression portion of the case. I used a combination of a high-speed bur as well as Kerrison Oakley to remove the lamina bilaterally. I used a bur to drill through the pars bilaterally. I then used an upgoing curette to lift off a portion of the facet joint the bilateral L5-S1. At this point I used a [place] to feel out into the foramen bilaterally and identify that there was significant compression of the nerves. I then used a Kerrison rongeur to remove bone up to the pedicles of L5 and S1 bilaterally. At this point the decompression was good and I moved on to the diskectomy portion of the case. I placed a nerve root retractor then my assistant professor of german helped to retract the thecal sac on the left-sided L5-S1. The disc was identified and all venous bleeding was controlled with bipolar electrocautery. At this point I cut into the disc with an 11 blade and used a series of Noah and curettes to remove the disc. Lateral fluoroscopy was then brought in and a trial was placed and confirmed to be in good position. At this point I prepared the endplates by decorticating them using curettes and packing it with the patient's autograft as well as Magnetos. This was sweeps over to the contralateral side and space was left for the cage. Cage was packed tightly with bone and inserted under fluoroscopic guidance. Lateral fluoroscopy confirmed that it was in good position. At this point I removed the license registration examiner irrigations obtained hemostasis was obtained. I then moved on to the arthrodesis portion case where I decorticated the transverse processes bilaterally L5-S1 and layered allograft and autograft over the bone. I then placed the heads onto the screws followed by yara and set screws. The S1 set screws were final tightened bilaterally the L4 set screws were compressed onto the S1 slightly to provide some compression across the cage plates final tightened bilaterally. This point I placed a drain underneath the fascia to the skin and this was layered over the lamina. I placed a Ray-Brianna over the thecal sac and obtained additional hemostasis this point there was significant bleeding and the wound was then closed in layers. The patient was flipped supine and turned over to Anesthesia for extubation Estimated Blood Loss 400 Drains Yes Complications No immediate complications Condition Stable Disposition PACU [facility] Billing Surgery - Charge Forward: Surgery Billing
[2024-12-03] MEDS: INSULIN HUMAN REGULAR (*BKC) 100 UNITS/ML 10 UNITS IV PUSH (12:33)
[2024-12-03] MEDS: fentaNYL CITRATE INJ (*CRX) 100 MCG/2 ML VIAL 25 MCG IV PUSH ×8 (12:52→13:55)
--- NOTE | 2024-12-03 13:53 | SUR.PHASEI ---
1230: DILAUDID 0.5MG IVP GIVEN THAT WAS LTC FROM RORY SOOD CRNA
--- NOTE | 2024-12-03 14:33 | ADMGEN ---
This patient, Bonny Sutton, was admitted to 3 [facility] Surg Room 309-01. Patient/family oriented to hospital policies and general routines including ID bracelet, bed and alarms, visiting hours, pain management, procedures, bathroom and other care routines, personal items, smoking policy, room service/diet, and visiting hours. Information on how to activate the Rapid Response Team has been discussed. Patient/Family are encouraged to report perceived risks to care and to ask questions if they do not understand what they are told or what they should do.
[2024-12-03] MEDS: ALBUTEROL SULFATE (*SP) AEROSOL 1 PUFF INHALATION ×2 (15:23→20:07)
[2024-12-03] MEDS: ONDANSETRON INJ 4 MG/2 ML VIAL IV PUSH (15:23)
[2024-12-03] MEDS: HYDROcodone/acetaminophen (*CRX) 10-325 MG TABLET 1 TAB PO ×2 (15:50→20:18)
[2024-12-03] MEDS: INSULIN ASPART (*BKC) 100 UNITS/ML SUB-Q (17:23)
[2024-12-03] MEDS: MORPHINE SULFATE (*CRX) 4 MG/ML INJ 2 MG IV PUSH (17:35)
[2024-12-03] MEDS: CYCLOBENZAPRINE HCL 10 MG TABLET PO (18:32)
[2024-12-03] MEDS: DOCUSATE SODIUM 100 MG CAPSULE PO (20:19)
[2024-12-04] VITALS (12 sets, daily range): BP systolic 99–129; BP diastolic 56–76; PULSE 95–118; RESP 16–20; TEMP 36.2–36.6; O2SAT 97–100
--- NOTE | ~2024-12-04 | XR_ITS ---
XR fluoroscopy no charge Indication:posterior lumbar interbody fusion at L5-S1. TECHNIQUE: Fluoroscopy used during posterior lumbar interbody fusion at L5-S1. performed by [Parmjit Beal MD] on 12/03/2024. 35 seconds of fluoroscopy with one fluoroscopic images captured. FINDINGS: Correlate with procedure note. IMPRESSION: Fluoroscopy used during posterior lumbar interbody fusion at L5-S1.. Reviewed, dictated and finalized at location O. IMPRESSION: Fluoroscopy used during posterior lumbar interbody fusion at L5-S1. .
[2024-12-04] MEDS: ALBUTEROL SULFATE (*SP) AEROSOL 1 PUFF INHALATION ×7 (00:18→23:52)
--- NOTE | 2024-12-04 02:49 | PM.IMCN ---
Assessment and Plan Assessment and plan (1) Type 2 diabetes mellitus with hyperglycemia, without long-term current use of insulin: Code(s): E11.65 - Type 2 diabetes mellitus with hyperglycemia Status: Acute (2) S/P laminectomy with spinal fusion: Onset Date: 12/03/24 Code(s): Z98.1 - Arthrodesis status Status: Acute (3) Continuous dependence on cigarette smoking: Code(s): F17.210 - Nicotine dependence, cigarettes, uncomplicated Status: Acute Plan The patient having hyperglycemia postoperative likely due to combination of acute stress from surgical procedure and recent cessation of Mounjaro. The patient reports that her blood glucoses at home have been running between 140 and 180 for the most part. Glucoses have improved since patient's sliding scale insulin was changed from low-dose to moderate dose. But some hyperglycemia persisting. The patient wants to try low-dose Lantus for improved glucose control as she is aware that optimize glycemic control will improve wound healing. Will start the patient on Lantus 10 units subQ daily. Will switch diet to consistent carbohydrate. Postoperative/pain management per primary service. Smoking cessation education provided. MEDICAL DECISION MAKING NARRATIVE -Spoke with the ED provider in detail regarding patient's evaluation, workup and management -Patient seen and examined at bedside -Collaborated with patient's nurse at the bedside in detail and addressed all concerns -Labs, electrolytes, radiology, investigations and test results personally reviewed and interpreted unless otherwise specified -ED/Consult/Nursing/Ancilliary notes on the chart reviewed and appreciated -Spoke with patient at bedside and diagnosis and plan of care was discussed. All questions answered. HPI Date of Consult Consult date: 12/04/24 Requesting Physician: Parmjit Beal MD Primary Care Provider: Tani Biggs Consult Narrative Reason for consult: Hyperglycemia Narrative: Bonny Sutton is a 54 year old female with a past medical history of CHF, essential hypertension, hyperlipidemia, peripheral vascular disease with left lower extremity stent, COPD with continued tobacco use, obstructive sleep apnea intolerant to CPAP, chronic tonsillar hypertrophy, GERD, chronic kidney disease, partial right nephrectomy due to renal cell carcinoma, gout, type 2 diabetes mellitus not on insulin therapy and lumbar stenosis who underwent L4-L5 laminectomy/facetectomy/diskectomy with transforaminal interbody fusion 12/03/2024 her developed postoperative hyperglycemia. The patient had a hemoglobin A1c preoperatively that was 7.3% (11/16/2024). Evidently preoperatively the patient was hyperglycemic state as anesthesia gave the patient 10 units of IV insulin. She did not receive any dextrose containing fluids, steroids intraoperatively. She does state that her Mounjaro has been on hold for 4 weeks in anticipation of anesthesia but she has otherwise not had any changes in her diabetes regimen. She reported that before she was started on the Mounjaro she had to be on Lantus but has not needed it for the last year. She reports that she is chronically nauseated due to her gastroparesis but has had a fair appetite since surgery. She has not had any nausea or vomiting. She reports that her pain is uncontrolled. Review of Systems Review of Systems: 12 systems were reviewed with pertinent positives and negatives per HPI. Except as documented in the HPI, all other systems were reviewed and are negative. [facility] Past Medical History Medical History (Updated 12/04/24 @ 03:03 by Alma Chapa DO) Renal cell carcinoma Chronic kidney disease GERD (gastroesophageal reflux disease) Continuous dependence on cigarette smoking COPD (chronic obstructive pulmonary disease) Peripheral artery disease Obstructive sleep apnea Allergic rhinitis Undifferentiated connective tissue disease Generalized osteoarthritis of multiple sites OLGA positive Gout Hypertension Heart disease Headache Diabetes CHF (congestive heart failure) Arthritis Asthma Surgical History Surgical History (Updated 12/04/24 @ 03:09 by Alma Chapa DO) S/P laminectomy with spinal fusion (12/03/24) L4-L5 laminectomy with bilateral facetectomy and diskectomy with transforaminal interbody fusion History of partial nephrectomy Due to right renal cell carcinoma S/P peripheral artery angioplasty with stent placement Left lower extremity Family History Family History Mother Hypertension Diabetes mellitus Heart disease Sibling Heart disease Social History Social History Smoking packs per day: 0.3 Smoking cigarettes per day: 6.0 Years smoked: 40 Smoking pack-years: 12.00 Smoking status: Current every day smoker Tobacco type: cigarettes Additional smoking assessment comments: Just restarted, had quit for 3 yrs, encouraged to quit again. Alcohol intake: never Substance use: never Substance use type: does not use Do You Feel Safe in your Home?: Yes Lack of Transportation: No Lack of Food: Sometimes True Current Housing: I Have Housing Concerned About Future Housing: No Difficulty Paying Gas/Electric Bills: No Difficulty Paying for Meds: No Currently Unemployed: No Education: High School Diploma/GED Difficulty w/ Childcare or Family Care: No Living arrangements: alone Spiritual care concerns: No Meds Home Medications and Allergies Home Medications ?Medication ?Instructions ?Recorded ?Confirmed ?Type albuterol sulfate 90 mcg/actuation 1 inh inhalation Q4H 08/19/22 11/16/24 History aerosol inhaler atorvastatin 80 mg tablet 80 mg PO DAILY 08/19/22 11/16/24 History cholecalciferol (vitamin D3) 25 25 mcg PO DAILY 08/19/22 12/03/24 History mcg (1,000 unit) capsule docusate sodium 100 mg capsule 100 mg PO DAILY 08/19/22 11/16/24 History epinephrine 0.3 mg/0.3 mL 0.3 mg IM ONCE 08/19/22 11/16/24 History injection, auto-injector furosemide 20 mg tablet 20 mg PO QAM 08/19/22 11/16/24 History pantoprazole 40 mg tablet,delayed 40 mg PO QAM 08/19/22 11/16/24 History release spironolactone 25 mg tablet 25 mg PO DAILY 08/19/22 11/16/24 History tirzepatide 5 mg/0.5 mL 5 mg subcut WEEKLY 08/19/22 11/16/24 History subcutaneous pen injector (Babita) allopurinol 100 mg tablet 100 mg PO DAILY 04/07/24 11/16/24 History ascorbic acid (vitamin C) 500 mg 500 mg PO DAILY 04/07/24 12/03/24 History tablet aspirin 81 mg tablet,delayed 81 mg PO DAILY 04/07/24 12/03/24 History release famotidine 40 mg tablet 40 mg PO DAILY 04/07/24 11/16/24 History fexofenadine 180 mg tablet 180 mg PO DAILY 04/07/24 11/16/24 History ipratropium bromide 0.02 % 2.5 ml inhalation Q6H PRN 04/07/24 11/16/24 History solution for inhalation shortness of breath or wheezing naloxone 4 mg/actuation nasal 4 mg intranasal Q2-3M PRN opioid 04/07/24 11/16/24 History spray (Narcan) overdose tamsulosin 0.4 mg capsule 0.4 mg PO DAILY 04/07/24 11/16/24 History tizanidine 2 mg tablet 2 mg PO TID PRN muscle spasticity 04/07/24 11/16/24 History bupropion HCl 150 mg 24 hr tablet, 150 mg PO QAM 06/07/24 11/16/24 History extended release (Wellbutrin XL) empagliflozin 10 mg tablet 10 mg PO DAILY 06/07/24 11/16/24 History (Jardiance) venlafaxine 150 mg tablet,extended 150 mg PO DAILY 06/07/24 11/16/24 History release 24 hr glimepiride 2 mg tablet 2 mg PO DAILY 11/16/24 11/16/24 History oxycodone 5 mg tablet 5 mg PO Q4H PRN pain #32 tabs 12/03/24 Rx Allergies Allergy/AdvReac Type Severity Reaction Status Date / Time Penicillins Allergy Severe Difficulty Verified 12/03/24 08:46 Breathing bernabe Allergy Swelling Verified 12/03/24 08:46 of Lip/Tongue/Throat ketorolac (From Toradol) AdvReac Intermediate Unknown Verified 12/03/24 08:46 meclizine AdvReac Intermediate Unknown Verified 12/03/24 08:46 shrimp AdvReac Intermediate tingling Verified 12/03/24 08:46 in mouth moutain dew Allergy Other Uncoded 10/01/24 11:24 Vital Signs Vital Signs - 24 hr 12/03/24 07:00 12/03/24 12:17 12/03/24 12:30 Temperature 97 F L 97.2 F L Pulse Rate 78 97 100 Respiratory Rate 14 20 16 Blood Pressure 125/84 93/78 L 101/79 Pulse Oximetry 100 100 100 Oxygen Delivery Room Air Simple Face Mask Simple Face Mask Oxygen Flow Rate 8 8 12/03/24 12:45 12/03/24 13:00 12/03/24 13:15 Temperature Pulse Rate 102 H 109 H 108 H Respiratory Rate 13 14 12 Blood Pressure 112/78 106/66 108/71 Pulse Oximetry 100 100 96 Oxygen Delivery Simple Face Mask Room Air Room Air Oxygen Flow Rate 8 12/03/24 13:30 12/03/24 13:45 12/03/24 14:00 Temperature 97.5 F L Pulse Rate 107 H 107 H 100 Respiratory Rate 12 16 16 Blood Pressure 105/71 107/77 105/78 Pulse Oximetry 96 96 95 Oxygen Delivery Room Air Room Air Room Air Oxygen Flow Rate 12/03/24 14:22 12/03/24 14:37 12/03/24 14:53 Temperature 97.6 F 97.9 F Pulse Rate 104 H 107 H 107 H Respiratory Rate 18 20 20 Blood Pressure 101/71 103/79 Pulse Oximetry 100 100 100 Oxygen Delivery Room Air Oxygen Flow Rate 12/03/24 15:07 12/03/24 17:09 12/03/24 17:22 Temperature 98.6 F 97.2 F L 98.6 F Pulse Rate 98 98 98 Respiratory Rate 16 16 16 Blood Pressure 99/77 L 107/76 99/77 L Pulse Oximetry 100 100 100 Oxygen Delivery Oxygen Flow Rate 12/03/24 20:00 12/03/24 21:04 12/03/24 22:00 Temperature 97.4 F L 97.1 F L Pulse Rate 98 104 H 98 Respiratory Rate 18 18 18 Blood Pressure 101/70 103/71 Pulse Oximetry 90 100 90 Oxygen Delivery Room Air Oxygen Flow Rate 12/04/24 01:20 Temperature 97.9 F Pulse Rate 105 H Respiratory Rate 18 Blood Pressure 129/76 Pulse Oximetry 100 Oxygen Delivery Oxygen Flow Rate Exam Narrative: Weight 78.5 kg BMI 29.7 Const: Other: No acute distress, lying in the rate semi flower position, appears stated age HENMT: Other: Head is normocephalic atraumatic, mucous membranes are moist Neck: Other: Large neck circumference, no JVD Resp: Other: Clear to auscultation bilaterally, no increased work of breathing Cardio: Other: Mildly tachycardic, 2+ bilateral radial pedal pulses GI: Other: Soft, distended, nontender, positive bowel sounds Back/Spine/Pelvis: Other: Surgical site not directly inspected due to dressings and patient positioning, mild thoracic kyphosis Skin: Other: No pallor, non jaundice Neuro: Other: Alert oriented, speech is clear Extrem: Other: No clubbing, cyanosis or edema, no foot wounds Psych: Other: Appropriate mood and affect, pleasant and cooperative, judgment and insight intact Results Labs 12/04/24 06:17 Labs: Hemoglobin A1c NovemberNovember 2024 7.3% BMP 11/16/2024 sodium 135 potassium 4.7 chloride 103 CO2 26 BUN 17 creatinine 1.01 GFR 57 glucose 195 calcium 10.2 CBC 11/16/2024 WBC 5.3 hemoglobin 12.6 platelet count 204 Preop EKG: Test Date: 2024-11-16 12:50:31 Measurements Intervals [place] Rate: 77 P: 49 FL: 165 QRS: -13 QRSD: 99 T: 83 QT: 385 QTc: 438 Interpretive Statements SINUS RHYTHM WITH SINUS ARRHYTHMIA POOR R-WAVE PROGRESSION POSSIBLE LEFT ATRIAL ENLARGEMENT [-0.1mV P WAVE IN V1/V2] NONSPECIFIC T-WAVE ABNORMALITY ABNORMAL ELECTROCARDIOGRAM Quality VTE Prophylaxis VTE prophylaxis: mechanical ordered (SCDs) Hospitalist MIPS Advance Care Plan I have confirmed that the patient's Advanced Care Plan is present, code status is documented, or surrogate decision maker is listed in patient medical record.: Yes Medication Reconciliation I have utilized all available resources to obtain, update and review the patients current medications (includes all prescriptions, OTC, herbals, cannabis, and nutritional supplements).: Yes
[2024-12-04] MEDS: HYDROcodone/acetaminophen (*CRX) 10-325 MG TABLET 1 TAB PO ×4 (05:14→23:53)
[2024-12-04] MEDS: ceFAZolin 2 GM in SODIUM CHLORIDE 0.9% IV 50 ML 100 ML IVPB ×2 (06:20→17:03)
[2024-12-04] MEDS: MORPHINE SULFATE (*CRX) 4 MG/ML INJ 2 MG IV PUSH ×4 (06:44→21:21)
[2024-12-04 07:16] LABS: Anion Gap 6 mmol/L (4-12); Blood Urea Nitrogen 28 mg/dL (7-17); Calcium 9.1 mg/dL (8.4-10.2); Carbon Dioxide 22 mmol/L (22-30); Chloride 103 mmol/L (98-107); Estimated CRCL calculation 56 ml/min; Estimated Glomerular Filt Rate 56; Glucose 200 mg/dL (65-110); Potassium 4.3 mmol/L (3.4-5.0); Sodium 131 mmol/L (137-145)
[2024-12-04] MEDS: INSULIN ASPART (*BKC) 100 UNITS/ML SUB-Q ×6 (08:45→21:23)
[2024-12-04] MEDS: INSULIN GLARGINE (*BKC) 100 UNITS/ML 10 UNITS SUB-Q (08:46)
[2024-12-04] MEDS: TAMSULOSIN HCL 0.4 MG CAPSULE PO (08:48)
[2024-12-04] MEDS: LORATADINE 10 MG TABLET PO (08:48)
[2024-12-04] MEDS: PANTOPRAZOLE 40 MG TABLET PO (08:48)
[2024-12-04] MEDS: FUROSEMIDE 20 MG TABLET PO (08:48)
[2024-12-04] MEDS: ATORVASTATIN 40 MG TABLET 80 MG PO (08:48)
[2024-12-04] MEDS: FAMOTIDINE 20 MG TABLET 40 MG PO (08:49)
[2024-12-04] MEDS: SPIRONOLACTONE 25 MG TABLET PO (08:49)
[2024-12-04] MEDS: ASCORBIC ACID 500 MG TABLET PO (08:49)
[2024-12-04] MEDS: buPROPion HCL XL (24 HR) 150 MG TABCR PO (08:49)
[2024-12-04] MEDS: VENLAFAXINE HCL XR 75 MG CAP.ER.24H 150 MG PO (08:49)
[2024-12-04] MEDS: CHOLECALCIFEROL (VITAMIN D3) 25 MCG (1,000 UNITS) TABLET PO (08:50)
[2024-12-04] MEDS: DOCUSATE SODIUM 100 MG CAPSULE PO ×2 (08:50→21:17)
--- NOTE | 2024-12-04 09:08 | PCOTNOTE ---
Attempted OT evaluation, patient up in chair and eating breakfast. Will follow.
--- NOTE | 2024-12-04 10:55 | P.PNIM_ITS ---
Progress Note: A&P Assessment and Plan (1) Type 2 diabetes mellitus with hyperglycemia, without long-term current use of insulin: Code(s): E11.65 - Type 2 diabetes mellitus with hyperglycemia Status: Acute (2) S/P laminectomy with spinal fusion: Onset Date: 12/03/24 Code(s): Z98.1 - Arthrodesis status Status: Acute (3) Continuous dependence on cigarette smoking: Code(s): F17.210 - Nicotine dependence, cigarettes, uncomplicated Status: Acute Plan DMII Hyperglycemia Home meds: Mounjaro, Glimeperide, & Empagliflozin 10mg on hold Home blood sugars usually 140-180 --Started Lantus 10 units daily. Increase to 15 units in AM --Add lispro 2< 4units TID with meals --Moderate dose SSI --Diet consistent carb --Restart empagliflozin today --Reports she has a glucometer and supplies at home Current smoker Smoking cessation education provided. Lumbar Neural Foraminal stenosis s/p L5-S1 Laminectomy/Fusion --Postoperative/pain management per primary service. --SCD's --Gee was discontinued --Pain control --Added a lidocaine patch for neck pain. MEDICAL DECISION MAKING NARRATIVE -Spoke with the ED provider in detail regarding patient's evaluation, workup and management -Patient seen and examined at bedside -Collaborated with patient's nurse at the bedside in detail and addressed all concerns -Labs, electrolytes, radiology, investigations and test results personally reviewed and interpreted unless otherwise specified -ED/Consult/Nursing/Ancilliary notes on the chart reviewed and appreciated -Spoke with patient at bedside and diagnosis and plan of care was discussed. All questions answered. Time Spent With Patient Time: 36 minutes Subjective Date/time seen: 12/04/24 10:55 Interval history: Ambulated to the bathroom with assistance from staff with brace on Has a hemovac Blood sugars above goal, mealtime insulin increased. Restarted jardiance Review of Systems Review of Systems: 12 systems were reviewed with pertinent positives and negatives per HPI. Except as documented in the HPI, all other systems were reviewed and are negative. Exam Narrative: General - Awake and alert. No acute distress Eyes - PERRLA, EOM intact ENT - No thrush, No erythema Neck - No noticeable or palpable swelling Lymph Nodes - No lymphadenopathy Cardiovascular - RRR no m/r/g, no JVD Lungs: Clear to auscultation, No wheezing, use of accessory muscles, no crackles or wheezes. Skin - Skin warm and dry, no wounds or rashes Abdomen - Normal bowel sounds, abdomen soft and nontender Extremities - No edema, cyanosis or clubbing Musculoskeletal - 5/5 strength, normal range of motion, no swollen or erythematous joints. Low back shadowing to dressing Neurological ? Alert and oriented x 3, CN 2-12 grossly intact. Psych: Normal mood and affect Objective Data Vital Signs Vital Signs: Vital Signs - 24 hr 12/03/24 12:17 12/03/24 12:30 12/03/24 12:45 Temperature 97.2 F L Pulse Rate 97 100 102 H Respiratory Rate 20 16 13 Blood Pressure 93/78 L 101/79 112/78 Pulse Oximetry 100 100 100 Oxygen Delivery Simple Face Mask Simple Face Mask Simple Face Mask Oxygen Flow Rate 8 8 8 12/03/24 13:00 12/03/24 13:15 12/03/24 13:30 Temperature Pulse Rate 109 H 108 H 107 H Respiratory Rate 14 12 12 Blood Pressure 106/66 108/71 105/71 Pulse Oximetry 100 96 96 Oxygen Delivery Room Air Room Air Room Air Oxygen Flow Rate 12/03/24 13:45 12/03/24 14:00 12/03/24 14:22 Temperature 97.5 F L 97.6 F Pulse Rate 107 H 100 104 H Respiratory Rate 16 16 18 Blood Pressure 107/77 105/78 101/71 Pulse Oximetry 96 95 100 Oxygen Delivery Room Air Room Air Oxygen Flow Rate 12/03/24 14:37 12/03/24 14:53 12/03/24 15:07 Temperature 97.9 F 98.6 F Pulse Rate 107 H 107 H 98 Respiratory Rate 20 20 16 Blood Pressure 103/79 99/77 L Pulse Oximetry 100 100 100 Oxygen Delivery Room Air Oxygen Flow Rate 12/03/24 17:09 12/03/24 17:22 12/03/24 20:00 Temperature 97.2 F L 98.6 F Pulse Rate 98 98 98 Respiratory Rate 16 16 18 Blood Pressure 107/76 99/77 L Pulse Oximetry 100 100 90 Oxygen Delivery Room Air Oxygen Flow Rate 12/03/24 21:04 12/03/24 22:00 12/04/24 01:20 Temperature 97.4 F L 97.1 F L 97.9 F Pulse Rate 104 H 98 105 H Respiratory Rate 18 18 18 Blood Pressure 101/70 103/71 129/76 Pulse Oximetry 100 90 100 Oxygen Delivery Oxygen Flow Rate 12/04/24 05:22 12/04/24 06:00 12/04/24 07:54 Temperature 97.4 F L 97.9 F Pulse Rate 103 H 106 H 107 H Respiratory Rate 18 18 16 Blood Pressure 107/75 126/63 Pulse Oximetry 100 98 Oxygen Delivery Oxygen Flow Rate 12/04/24 08:33 12/04/24 09:49 Temperature 97.4 F L Pulse Rate 105 H Respiratory Rate 16 Blood Pressure 122/63 Pulse Oximetry 100 Oxygen Delivery Room Air Oxygen Flow Rate Intake/Output Intake/Output: Intake & Output 12/01/24 12/02/24 12/03/24 12/04/24 23:59 23:59 23:59 23:59 Intake Total 1100 120 Output Total 240 875 Balance 860 -755 Meds/Results Medications: Active Medications Generic Name Dose Route Start Last Admin Trade Name Freq PRN Reason Stop Dose Admin Acetaminophen 650 mg 12/03/24 14:22 Acetaminophen 325 Mg Tablet PO Q6H PRN Mild Pain (1-3) Hydrocodone Bitart/Acetaminophen 1 tab 12/03/24 14:22 12/04/24 08:50 Hydrocodone/Acetaminophen (*Crx) 10-325 Mg Tablet PO 1 tab Q4H PRN Administration Moderate Pain (4-6) Al Hydrox/Mg Hydrox/Simethicone 20 ml 12/03/24 14:22 Mag Hydrox/Al Hydrox/Simeth 30 Ml Udc PO Q4H PRN Indigestion/Heartburn Albuterol 1 puff 12/03/24 16:00 12/04/24 07:52 Albuterol Sulfate (*Sp) Aerosol 1 Puff INHALATION 1 puff Q4HRT BRIAN Administration Allopurinol 100 mg 12/04/24 09:00 12/04/24 08:49 Allopurinol 100 Mg Tablet PO 100 mg DAILY BRIAN Administration Ascorbic Acid 500 mg 12/04/24 09:00 12/04/24 08:49 Ascorbic Acid 500 Mg Tablet PO 500 mg DAILY BRIAN Administration Atorvastatin Calcium 80 mg 12/04/24 09:00 12/04/24 08:48 Atorvastatin 40 Mg Tablet PO 80 mg DAILY BRIAN Administration Bisacodyl 10 mg 12/03/24 14:22 Bisacodyl 10 Mg Suppository RECTAL DAILY PRN Constipation Bupropion HCl 150 mg 12/04/24 09:00 12/04/24 08:49 Bupropion Hcl Xl (24 Hr) 150 Mg Tabcr PO 150 mg QAM BRIAN Administration Cyclobenzaprine HCl 10 mg 12/03/24 14:22 12/03/24 18:32 Cyclobenzaprine Hcl 10 Mg Tablet PO 10 mg TID PRN Administration Muscle Spasms Dextrose 12.5 gm 12/03/24 14:22 Dextrose 50% 25 Gm/50 Ml Syringe IV PUSH PRN PRN Hypoglycemia Protocol Docusate Sodium 100 mg 12/03/24 21:00 12/04/24 08:50 Docusate Sodium 100 Mg Capsule PO 100 mg Q12HR BRIAN Administration Famotidine 40 mg 12/04/24 09:00 12/04/24 08:49 Famotidine 20 Mg Tablet PO 40 mg DAILY BRIAN Administration Furosemide 20 mg 12/04/24 09:00 12/04/24 08:48 Furosemide 20 Mg Tablet PO 20 mg QAM BRIAN Administration Glucagon 1 mg 12/03/24 14:22 Glucagon For Inj 1 Mg Vial IM PRN PRN Hypoglycemia Protocol Glucose 15 gm 12/03/24 14:22 Glucose Oral Gel 15 Gm Of Glucse In 37.5 Gm Tube PO PRN PRN Hypoglycemia Protocol Cefazolin Sodium 2 gm/ Sodium 50 mls @ 100 mls/hr 12/03/24 18:00 12/04/24 06:20 Chloride IVPB 100 mls/hr Q12H BRIAN Administration Dextrose 1,000 mls @ 100 mls/hr 12/03/24 14:22 Dextrose 5% 1,000 Ml IVPB PRN PRN Hypoglycemia Protocol Insulin Aspart 1 - 3 units 12/04/24 21:00 Insulin Aspart (*Bkc) 100 Units/Ml SUB-Q HS BRIAN Protocol Insulin Aspart 3 - 6 units 12/04/24 08:00 12/04/24 08:45 Insulin Aspart (*Bkc) 100 Units/Ml SUB-Q 3 units TIDWM BRIAN Administration Protocol Insulin Glargine 10 units 12/04/24 09:00 12/04/24 08:46 Insulin Glargine (*Bkc) 100 Units/Ml SUB-Q 10 units DAILY BRIAN Administration Ipratropium [place] 0.5 mg 12/03/24 14:22 Ipratropium Br 0.02% Inh Soln 0.5 Mg/2.5 Ml Vial INHALATION Q6HRT PRN Shortness Of Breath Or Wheezing Loratadine 10 mg 12/04/24 09:00 12/04/24 08:48 Loratadine 10 Mg Tablet PO 10 mg QAM BRIAN Administration Morphine Sulfate 2 mg 12/03/24 15:26 12/04/24 06:44 Morphine Sulfate (*Crx) 4 Mg/Ml Inj IV PUSH 2 mg Q2H PRN Administration Pain Rated 7-10 Ondansetron HCl 4 mg 12/03/24 14:22 12/03/24 15:23 Ondansetron Inj 4 Mg/2 Ml Vial IV PUSH 4 mg Q8H PRN Administration Nausea And Vomiting Pantoprazole Sodium 40 mg 12/04/24 09:00 12/04/24 08:48 Pantoprazole 40 Mg Tablet PO 40 mg QAM BRIAN Administration Senna/Docusate Sodium 1 tab 12/03/24 14:22 Senna/Docusate Sodium Tablet PO HS PRN Constipation Spironolactone 25 mg 12/04/24 09:00 12/04/24 08:49 Spironolactone 25 Mg Tablet PO 25 mg DAILY BRIAN Administration Tamsulosin HCl 0.4 mg 12/04/24 09:00 12/04/24 08:48 Tamsulosin Hcl 0.4 Mg Capsule PO 0.4 mg DAILY BRIAN Administration Tizanidine HCl 2 mg 12/03/24 14:22 Tizanidine Hcl 2 Mg Tablet PO TID PRN Muscle Spasticity Venlafaxine HCl 150 mg 12/04/24 09:00 12/04/24 08:49 Venlafaxine Hcl Xr 75 Mg Cap.Er.24h PO 150 mg DAILY BRIAN Administration Vitamin D 25 mcg 12/04/24 09:00 12/04/24 08:50 Cholecalciferol (Vitamin D3) 25 Mcg (1,000 Units) Tablet PO 25 mcg DAILY BRIAN Administration Radiology Results: ITS Impressions Fluoroscopy 12/03/24 12:56 IMPRESSION: Fluoroscopy used during posterior lumbar interbody fusion at L5-S1.. Labs Labs: Laboratory Results - last 24 hr 12/03/24 12/03/24 12/03/24 12:22 13:26 17:13 Sodium Potassium Chloride Carbon Dioxide Anion Gap BUN Creatinine Estim Creat Clear Calc Estimated GFR Glucose POC Capillary Glucose 318 H 276 H 301 H Calcium 12/03/24 12/03/24 12/04/24 20:17 22:51 06:17 Sodium 131 L Potassium 4.3 Chloride 103 Carbon Dioxide 22 Anion Gap 6 BUN 28 H D Creatinine 1.02 H Estim Creat Clear Calc 56 Estimated GFR 56 L Glucose 200 H POC Capillary Glucose 413 H 324 H Calcium 9.1 12/04/24 07:24 Sodium Potassium Chloride Carbon Dioxide Anion Gap BUN Creatinine Estim Creat Clear Calc Estimated GFR Glucose POC Capillary Glucose 208 H Calcium Quality VTE Prophylaxis VTE prophylaxis: mechanical ordered (SCDs) Hospitalist MIPS Advance Care Plan I have confirmed that the patient's Advanced Care Plan is present, code status is documented, or surrogate decision maker is listed in patient medical record.: Yes Medication Reconciliation I have utilized all available resources to obtain, update and review the patients current medications (includes all prescriptions, OTC, herbals, cannabis, and nutritional supplements).: Yes
[2024-12-04] MEDS: CYCLOBENZAPRINE HCL 10 MG TABLET PO (12:03)
--- NOTE | 2024-12-04 12:57 | WPDNEUROSGPN ---
Progress Note: A&P Assessment and Plan (1) Type 2 diabetes mellitus with hyperglycemia, without long-term current use of insulin: Code(s): E11.65 - Type 2 diabetes mellitus with hyperglycemia Status: Acute (2) S/P laminectomy with spinal fusion: Onset Date: 12/03/24 Code(s): Z98.1 - Arthrodesis status Status: Acute Plan -Continue hemovac drain for now -Out of bed to chair, mobilize TID -PT/OT currently recommending inpatient rehab -Appreciate Hospitalist assistance with hyperglycemia management Subjective Date/time seen: 12/04/24 12:57 Interval history: Complaining of quite a bit of back pain with some pain into the thighs and numbness into feet (not new since surgery). Requiring IV pain medication. She was able to ambulate with therapy. Tolerating oral intake and voiding independently. Had blood sugar up to 411 last night for which Hospitalist team was consulted. Review of Systems Review of Systems: All systems reviewed & are unremarkable except as noted in HPI and below Exam Narrative: AOx4 Small amount of sanguinous drainage on dressing Full strength in legs Sensation decreased to light touch below knee on left HV 415cc out since surgery Objective Data Vital Signs Vital Signs: Vital Signs - 24 hr 12/03/24 13:00 12/03/24 13:15 12/03/24 13:30 Temperature Pulse Rate 109 H 108 H 107 H Respiratory Rate 14 12 12 Blood Pressure 106/66 108/71 105/71 Pulse Oximetry 100 96 96 Oxygen Delivery Room Air Room Air Room Air 12/03/24 13:45 12/03/24 14:00 12/03/24 14:22 Temperature 97.5 F L 97.6 F Pulse Rate 107 H 100 104 H Respiratory Rate 16 16 18 Blood Pressure 107/77 105/78 101/71 Pulse Oximetry 96 95 100 Oxygen Delivery Room Air Room Air 12/03/24 14:37 12/03/24 14:53 12/03/24 15:07 Temperature 97.9 F 98.6 F Pulse Rate 107 H 107 H 98 Respiratory Rate 20 20 16 Blood Pressure 103/79 99/77 L Pulse Oximetry 100 100 100 Oxygen Delivery Room Air 12/03/24 17:09 12/03/24 17:22 12/03/24 20:00 Temperature 97.2 F L 98.6 F Pulse Rate 98 98 98 Respiratory Rate 16 16 18 Blood Pressure 107/76 99/77 L Pulse Oximetry 100 100 90 Oxygen Delivery Room Air 12/03/24 21:04 12/03/24 22:00 12/04/24 01:20 Temperature 97.4 F L 97.1 F L 97.9 F Pulse Rate 104 H 98 105 H Respiratory Rate 18 18 18 Blood Pressure 101/70 103/71 129/76 Pulse Oximetry 100 90 100 Oxygen Delivery 12/04/24 05:22 12/04/24 06:00 12/04/24 07:54 Temperature 97.4 F L 97.9 F Pulse Rate 103 H 106 H 107 H Respiratory Rate 18 18 16 Blood Pressure 107/75 126/63 Pulse Oximetry 100 98 Oxygen Delivery 12/04/24 08:33 12/04/24 09:49 12/04/24 11:40 Temperature 97.4 F L 97.4 F L Pulse Rate 105 H 100 Respiratory Rate 16 16 Blood Pressure 122/63 116/67 Pulse Oximetry 100 100 Oxygen Delivery Room Air 12/04/24 12:13 Temperature Pulse Rate 100 Respiratory Rate 16 Blood Pressure Pulse Oximetry Oxygen Delivery Intake/Output Intake/Output: Intake & Output 12/01/24 12/02/24 12/03/24 12/04/24 23:59 23:59 23:59 23:59 Intake Total 1100 120 Output Total 240 1575 Balance 860 -1455 Meds/Results Medications: Active Medications Generic Name Dose Route Start Last Admin Trade Name Freq PRN Reason Stop Dose Admin Acetaminophen 650 mg 12/03/24 14:22 Acetaminophen 325 Mg Tablet PO Q6H PRN Mild Pain (1-3) Hydrocodone Bitart/Acetaminophen 1 tab 12/03/24 14:22 12/04/24 08:50 Hydrocodone/Acetaminophen (*Crx) 10-325 Mg Tablet PO 1 tab Q4H PRN Administration Moderate Pain (4-6) Al Hydrox/Mg Hydrox/Simethicone 20 ml 12/03/24 14:22 Mag Hydrox/Al Hydrox/Simeth 30 Ml Udc PO Q4H PRN Indigestion/Heartburn Albuterol 1 puff 12/03/24 16:00 12/04/24 12:13 Albuterol Sulfate (*Sp) Aerosol 1 Puff INHALATION 1 puff Q4HRT BRIAN Administration Allopurinol 100 mg 12/04/24 09:00 12/04/24 08:49 Allopurinol 100 Mg Tablet PO 100 mg DAILY BRIAN Administration Ascorbic Acid 500 mg 12/04/24 09:00 12/04/24 08:49 Ascorbic Acid 500 Mg Tablet PO 500 mg DAILY BRIAN Administration Atorvastatin Calcium 80 mg 12/04/24 09:00 12/04/24 08:48 Atorvastatin 40 Mg Tablet PO 80 mg DAILY BRIAN Administration Bisacodyl 10 mg 12/03/24 14:22 Bisacodyl 10 Mg Suppository RECTAL DAILY PRN Constipation Bupropion HCl 150 mg 12/04/24 09:00 12/04/24 08:49 Bupropion Hcl Xl (24 Hr) 150 Mg Tabcr PO 150 mg QAM BRIAN Administration Cyclobenzaprine HCl 10 mg 12/03/24 14:22 12/04/24 12:03 Cyclobenzaprine Hcl 10 Mg Tablet PO 10 mg TID PRN Administration Muscle Spasms Dextrose 12.5 gm 12/03/24 14:22 Dextrose 50% 25 Gm/50 Ml Syringe IV PUSH PRN PRN Hypoglycemia Protocol Docusate Sodium 100 mg 12/03/24 21:00 12/04/24 08:50 Docusate Sodium 100 Mg Capsule PO 100 mg Q12HR BRIAN Administration Famotidine 40 mg 12/04/24 09:00 12/04/24 08:49 Famotidine 20 Mg Tablet PO 40 mg DAILY BRIAN Administration Furosemide 20 mg 12/04/24 09:00 12/04/24 08:48 Furosemide 20 Mg Tablet PO 20 mg QAM BRIAN Administration Glucagon 1 mg 12/03/24 14:22 Glucagon For Inj 1 Mg Vial IM PRN PRN Hypoglycemia Protocol Glucose 15 gm 12/03/24 14:22 Glucose Oral Gel 15 Gm Of Glucse In 37.5 Gm Tube PO PRN PRN Hypoglycemia Protocol Cefazolin Sodium 2 gm/ Sodium 50 mls @ 100 mls/hr 12/03/24 18:00 12/04/24 06:20 Chloride IVPB 100 mls/hr Q12H BRIAN Administration Dextrose 1,000 mls @ 100 mls/hr 12/03/24 14:22 Dextrose 5% 1,000 Ml IVPB PRN PRN Hypoglycemia Protocol Insulin Aspart 1 - 3 units 12/04/24 21:00 Insulin Aspart (*Bkc) 100 Units/Ml SUB-Q HS BRIAN Protocol Insulin Aspart 3 - 6 units 12/04/24 08:00 12/04/24 12:08 Insulin Aspart (*Bkc) 100 Units/Ml SUB-Q 4 units TIDWM BRIAN Administration Protocol Insulin Aspart 2 units 12/04/24 12:00 12/04/24 12:08 Insulin Aspart (*Bkc) 100 Units/Ml SUB-Q 2 units TIDWM BRIAN Administration Insulin Glargine 10 units 12/04/24 09:00 12/04/24 08:46 Insulin Glargine (*Bkc) 100 Units/Ml SUB-Q 10 units DAILY BRIAN Administration Ipratropium [place] 0.5 mg 12/03/24 14:22 Ipratropium Br 0.02% Inh Soln 0.5 Mg/2.5 Ml Vial INHALATION Q6HRT PRN Shortness Of Breath Or Wheezing Loratadine 10 mg 12/04/24 09:00 12/04/24 08:48 Loratadine 10 Mg Tablet PO 10 mg QAM BRIAN Administration Morphine Sulfate 2 mg 12/03/24 15:26 12/04/24 12:02 Morphine Sulfate (*Crx) 4 Mg/Ml Inj IV PUSH 2 mg Q2H PRN Administration Pain Rated 7-10 Ondansetron HCl 4 mg 12/03/24 14:22 12/03/24 15:23 Ondansetron Inj 4 Mg/2 Ml Vial IV PUSH 4 mg Q8H PRN Administration Nausea And Vomiting Pantoprazole Sodium 40 mg 12/04/24 09:00 12/04/24 08:48 Pantoprazole 40 Mg Tablet PO 40 mg QAM BRIAN Administration Senna/Docusate Sodium 1 tab 12/03/24 14:22 Senna/Docusate Sodium Tablet PO HS PRN Constipation Spironolactone 25 mg 12/04/24 09:00 12/04/24 08:49 Spironolactone 25 Mg Tablet PO 25 mg DAILY BRIAN Administration Tamsulosin HCl 0.4 mg 12/04/24 09:00 12/04/24 08:48 Tamsulosin Hcl 0.4 Mg Capsule PO 0.4 mg DAILY BRIAN Administration Tizanidine HCl 2 mg 12/03/24 14:22 Tizanidine Hcl 2 Mg Tablet PO TID PRN Muscle Spasticity Venlafaxine HCl 150 mg 12/04/24 09:00 12/04/24 08:49 Venlafaxine Hcl Xr 75 Mg Cap.Er.24h PO 150 mg DAILY BRIAN Administration Vitamin D 25 mcg 12/04/24 09:00 12/04/24 08:50 Cholecalciferol (Vitamin D3) 25 Mcg (1,000 Units) Tablet PO 25 mcg DAILY BRIAN Administration Radiology Results: ITS Impressions Fluoroscopy 12/03/24 12:56 IMPRESSION: Fluoroscopy used during posterior lumbar interbody fusion at L5-S1.. Labs Labs: Laboratory Results - last 24 hr 12/03/24 12/03/24 12/03/24 13:26 17:13 20:17 Sodium Potassium Chloride Carbon Dioxide Anion Gap BUN Creatinine Estim Creat Clear Calc Estimated GFR Glucose POC Capillary Glucose 276 H 301 H 413 H Calcium 12/03/24 12/04/24 12/04/24 22:51 06:17 07:24 Sodium 131 L Potassium 4.3 Chloride 103 Carbon Dioxide 22 Anion Gap 6 BUN 28 H D Creatinine 1.02 H Estim Creat Clear Calc 56 Estimated GFR 56 L Glucose 200 H POC Capillary Glucose 324 H 208 H Calcium 9.1 12/04/24 11:25 Sodium Potassium Chloride Carbon Dioxide Anion Gap BUN Creatinine Estim Creat Clear Calc Estimated GFR Glucose POC Capillary Glucose 269 H Calcium
[2024-12-04] MEDS: LIDOCAINE 5% PATCH 1 PATCH TRANSDERM (16:44)
[2024-12-04] MEDS: EMPAGLIFLOZIN 10 MG TABLET PO (16:58)
--- NOTE | 2024-12-04 17:16 | WPDANESPN ---
Anes - Prog Note Post-Op Date/Time: 12/04/24 17:16 Cardiovascular status: normal Respiratory status: normal Airway patency: baseline Mental status: baseline Post-Op hydration status: normal Vital Signs: Last Vital Signs Temp 97.4 F L 12/04/24 11:40 Pulse 95 12/04/24 15:53 Resp 16 12/04/24 15:53 BP 116/67 12/04/24 11:40 Pulse Ox 100 12/04/24 11:40 O2 Del Method Room Air 12/04/24 11:50 O2 Flow Rate 8 12/03/24 12:45 Pain Score (VAS): 0/10 I/O: Intake & Output 12/04/24 12/04/24 12/04/24 07:59 15:59 23:59 Intake Total 50 990 Output Total 875 700 Balance -825 290 Laboratory Tests 12/04/24 06:17 12/03/24 12/03/24 12/03/24 17:13 20:17 22:51 Sodium Potassium Chloride Carbon Dioxide Anion Gap BUN Creatinine Estim Creat Clear Calc Estimated GFR Glucose POC Capillary Glucose 301 H 413 H 324 H Calcium 12/04/24 12/04/24 12/04/24 06:17 07:24 11:25 Sodium 131 L Potassium 4.3 Chloride 103 Carbon Dioxide 22 Anion Gap 6 BUN 28 H D Creatinine 1.02 H Estim Creat Clear Calc 56 Estimated GFR 56 L Glucose 200 H POC Capillary Glucose 208 H 269 H Calcium 9.1 12/04/24 16:44 Sodium Potassium Chloride Carbon Dioxide Anion Gap BUN Creatinine Estim Creat Clear Calc Estimated GFR Glucose POC Capillary Glucose 386 H Calcium Post-procedural complaints: none Patient Feedback: Patient satisfied with anesthetic care.
[2024-12-05] VITALS (8 sets, daily range): BP systolic 106–122; BP diastolic 68–78; PULSE 102–110; RESP 14–20; TEMP 36.2–36.4; O2SAT 98–100
[2024-12-05] MEDS: ALBUTEROL SULFATE (*SP) AEROSOL 1 PUFF INHALATION ×4 (03:08→20:55)
[2024-12-05] MEDS: MORPHINE SULFATE (*CRX) 4 MG/ML INJ 2 MG IV PUSH ×3 (03:45→17:49)
[2024-12-05] MEDS: HYDROcodone/acetaminophen (*CRX) 10-325 MG TABLET 1 TAB PO ×3 (05:52→20:40)
[2024-12-05] MEDS: ceFAZolin 2 GM in SODIUM CHLORIDE 0.9% IV 50 ML 100 ML IVPB ×2 (05:53→17:37)
--- NOTE | 2024-12-05 09:06 | PM.IMPN ---
Progress Note: A&P Assessment and Plan (1) Type 2 diabetes mellitus with hyperglycemia, without long-term current use of insulin: Code(s): E11.65 - Type 2 diabetes mellitus with hyperglycemia Status: Acute (2) S/P laminectomy with spinal fusion: Onset Date: 12/03/24 Code(s): Z98.1 - Arthrodesis status Status: Acute (3) Continuous dependence on cigarette smoking: Code(s): F17.210 - Nicotine dependence, cigarettes, uncomplicated Status: Acute Plan DMII Hyperglycemia Home meds: Mounjaro, Glimeperide, & Empagliflozin 10mg on hold Home blood sugars usually 140-180 --Started Lantus 10 units daily. Increased from 10<15<18 units today --Add lispro 2<4<6 units TID with meals --Moderate dose SSI --Diet consistent carb --Restarted empagliflozin --Reports she has a glucometer and supplies at home Current smoker Smoking cessation education provided. Lumbar Neural Foraminal stenosis s/p L5-S1 Laminectomy/Fusion --Postoperative/pain management per primary service. --Bowel regimen: start miralax BID, Senna bid, bisacodyl suppository hs --SCD's --Gee was discontinued --Pain control --Added a lidocaine patch for neck pain. MEDICAL DECISION MAKING NARRATIVE -Spoke with the ED provider in detail regarding patient's evaluation, workup and management -Patient seen and examined at bedside -Collaborated with patient's nurse at the bedside in detail and addressed all concerns -Labs, electrolytes, radiology, investigations and test results personally reviewed and interpreted unless otherwise specified -ED/Consult/Nursing/Ancilliary notes on the chart reviewed and appreciated -Spoke with patient at bedside and diagnosis and plan of care was discussed. All questions answered. Time Spent With Patient Time: 57 minutes Subjective Date/time seen: 12/05/24 16:04 Interval history: Hemovac removed by surgery. No bleeding. Dressing dry Blood sugars above goal, mealtime insulin increased from 4<6. Increased lantus this morning. Addition 5 units tonight and increase lispro from 5<6 TID with meals and SSI. Increase lantus to 18 tomorrow Had nausea this morning, no vomiting Reports constipation since , added miralax, senna, and bisacodyl suppositories Review of Systems Review of Systems: 12 systems were reviewed with pertinent positives and negatives per HPI. Except as documented in the HPI, all other systems were reviewed and are negative. Exam Narrative: General - Awake and alert. No acute distress Eyes - PERRLA, EOM intact ENT - No thrush, No erythema Neck - No noticeable or palpable swelling Lymph Nodes - No lymphadenopathy Cardiovascular - RRR no m/r/g, no JVD Lungs: Clear to auscultation, No wheezing, use of accessory muscles, no crackles or wheezes. Skin - Skin warm and dry, no wounds or rashes Abdomen - Decreased bowel sounds, abdomen soft and nontender Extremities - No edema, cyanosis or clubbing Musculoskeletal - 5/5 strength, normal range of motion, no swollen or erythematous joints. Low back dry dressing Neurological ? Alert and oriented x 3, CN 2-12 grossly intact. Psych: Normal mood and affect Objective Data Vital Signs Vital Signs: Vital Signs - 24 hr 12/04/24 09:49 12/04/24 11:40 12/04/24 11:50 Temperature 97.4 F L Pulse Rate 100 Respiratory Rate 16 Blood Pressure 116/67 Pulse Oximetry 100 Oxygen Delivery Room Air Room Air 12/04/24 12:13 12/04/24 15:53 12/04/24 17:22 Temperature 97.3 F L Pulse Rate 100 95 115 H Respiratory Rate 16 16 20 Blood Pressure 107/66 Pulse Oximetry 98 Oxygen Delivery 12/04/24 20:27 12/04/24 21:10 12/04/24 23:52 Temperature 97.2 F L Pulse Rate 112 H 118 H 108 H Respiratory Rate 20 20 20 Blood Pressure 99/56 L Pulse Oximetry 97 Oxygen Delivery 12/05/24 03:08 12/05/24 06:00 12/05/24 08:11 Temperature 97.2 F L Pulse Rate 103 H 109 H 109 H Respiratory Rate 20 20 14 Blood Pressure 111/70 Pulse Oximetry 100 Oxygen Delivery Intake/Output Intake/Output: Intake & Output 12/02/24 12/03/24 12/04/24 12/05/24 23:59 23:59 23:59 23:59 Intake Total 1100 2160 990 Output Total 240 1665 Balance 860 495 990 Meds/Results Medications: Active Medications Generic Name Dose Route Start Last Admin Trade Name Freq PRN Reason Stop Dose Admin Acetaminophen 650 mg 12/03/24 14:22 Acetaminophen 325 Mg Tablet PO Q6H PRN Mild Pain (1-3) Hydrocodone Bitart/Acetaminophen 1 tab 12/03/24 14:22 12/05/24 05:52 Hydrocodone/Acetaminophen (*Crx) 10-325 Mg Tablet PO 1 tab Q4H PRN Administration Moderate Pain (4-6) Al Hydrox/Mg Hydrox/Simethicone 20 ml 12/03/24 14:22 Mag Hydrox/Al Hydrox/Simeth 30 Ml Udc PO Q4H PRN Indigestion/Heartburn Albuterol 1 puff 12/03/24 16:00 12/05/24 08:09 Albuterol Sulfate (*Sp) Aerosol 1 Puff INHALATION 1 puff Q4HRT BRIAN Administration Allopurinol 100 mg 12/04/24 09:00 12/04/24 08:49 Allopurinol 100 Mg Tablet PO 100 mg DAILY BRIAN Administration Ascorbic Acid 500 mg 12/04/24 09:00 12/04/24 08:49 Ascorbic Acid 500 Mg Tablet PO 500 mg DAILY BRIAN Administration Atorvastatin Calcium 80 mg 12/04/24 09:00 12/04/24 08:48 Atorvastatin 40 Mg Tablet PO 80 mg DAILY BRIAN Administration Bisacodyl 10 mg 12/03/24 14:22 Bisacodyl 10 Mg Suppository RECTAL DAILY PRN Constipation Bupropion HCl 150 mg 12/04/24 09:00 12/04/24 08:49 Bupropion Hcl Xl (24 Hr) 150 Mg Tabcr PO 150 mg QAM BRIAN Administration Cyclobenzaprine HCl 10 mg 12/03/24 14:22 12/04/24 12:03 Cyclobenzaprine Hcl 10 Mg Tablet PO 10 mg TID PRN Administration Muscle Spasms Dextrose 12.5 gm 12/03/24 14:22 Dextrose 50% 25 Gm/50 Ml Syringe IV PUSH PRN PRN Hypoglycemia Protocol Docusate Sodium 100 mg 12/03/24 21:00 12/04/24 21:17 Docusate Sodium 100 Mg Capsule PO 100 mg Q12HR BRIAN Administration Empagliflozin 10 mg 12/04/24 16:20 12/04/24 16:58 Empagliflozin 10 Mg Tablet PO 10 mg DAILY BRIAN Administration Famotidine 40 mg 12/04/24 09:00 12/04/24 08:49 Famotidine 20 Mg Tablet PO 40 mg DAILY BRIAN Administration Furosemide 20 mg 12/04/24 09:00 12/04/24 08:48 Furosemide 20 Mg Tablet PO 20 mg QAM BRIAN Administration Glucagon 1 mg 12/03/24 14:22 Glucagon For Inj 1 Mg Vial IM PRN PRN Hypoglycemia Protocol Glucose 15 gm 12/03/24 14:22 Glucose Oral Gel 15 Gm Of Glucse In 37.5 Gm Tube PO PRN PRN Hypoglycemia Protocol Cefazolin Sodium 2 gm/ Sodium 50 mls @ 100 mls/hr 12/03/24 18:00 12/05/24 05:53 Chloride IVPB 100 mls/hr Q12H BRAIN Administration Dextrose 1,000 mls @ 100 mls/hr 12/03/24 14:22 Dextrose 5% 1,000 Ml IVPB PRN PRN Hypoglycemia Protocol Insulin Aspart 1 - 3 units 12/04/24 21:00 12/04/24 21:23 Insulin Aspart (*Bkc) 100 Units/Ml SUB-Q 2 units HS BRIAN Administration Protocol Insulin Aspart 3 - 6 units 12/04/24 08:00 12/04/24 16:59 Insulin Aspart (*Bkc) 100 Units/Ml SUB-Q 6 units TIDWM BRIAN Administration Protocol Insulin Aspart 4 units 12/04/24 17:00 12/04/24 16:59 Insulin Aspart (*Bkc) 100 Units/Ml SUB-Q 4 units TIDWM BRIAN Administration Insulin Glargine 15 units 12/05/24 09:00 Insulin Glargine (*Bkc) 100 Units/Ml SUB-Q DAILY BRIAN Ipratropium [place] 0.5 mg 12/03/24 14:22 Ipratropium Br 0.02% Inh Soln 0.5 Mg/2.5 Ml Vial INHALATION Q6HRT PRN Shortness Of Breath Or Wheezing Lidocaine 1 patch 12/04/24 16:15 12/04/24 16:44 Lidocaine 5% Patch TRANSDERM 1 patch DAILY BRIAN Administration Loratadine 10 mg 12/04/24 09:00 12/04/24 08:48 Loratadine 10 Mg Tablet PO 10 mg QAM BRIAN Administration Morphine Sulfate 2 mg 12/03/24 15:26 12/05/24 03:45 Morphine Sulfate (*Crx) 4 Mg/Ml Inj IV PUSH 2 mg Q2H PRN Administration Pain Rated 7-10 Ondansetron HCl 4 mg 12/03/24 14:22 12/03/24 15:23 Ondansetron Inj 4 Mg/2 Ml Vial IV PUSH 4 mg Q8H PRN Administration Nausea And Vomiting Pantoprazole Sodium 40 mg 12/04/24 09:00 12/04/24 08:48 Pantoprazole 40 Mg Tablet PO 40 mg QAM BRIAN Administration Senna/Docusate Sodium 1 tab 12/03/24 14:22 Senna/Docusate Sodium Tablet PO HS PRN Constipation Spironolactone 25 mg 12/04/24 09:00 12/04/24 08:49 Spironolactone 25 Mg Tablet PO 25 mg DAILY BRIAN Administration Tamsulosin HCl 0.4 mg 12/04/24 09:00 12/04/24 08:48 Tamsulosin Hcl 0.4 Mg Capsule PO 0.4 mg DAILY BRIAN Administration Tizanidine HCl 2 mg 12/03/24 14:22 Tizanidine Hcl 2 Mg Tablet PO TID PRN Muscle Spasticity Venlafaxine HCl 150 mg 12/04/24 09:00 12/04/24 08:49 Venlafaxine Hcl Xr 75 Mg Cap.Er.24h PO 150 mg DAILY BRIAN Administration Vitamin D 25 mcg 12/04/24 09:00 12/04/24 08:50 Cholecalciferol (Vitamin D3) 25 Mcg (1,000 Units) Tablet PO 25 mcg DAILY BRIAN Administration Radiology Results: ITS Impressions Fluoroscopy 12/03/24 12:56 IMPRESSION: Fluoroscopy used during posterior lumbar interbody fusion at L5-S1.. Labs Labs: Laboratory Results - last 24 hr 12/04/24 12/04/24 12/04/24 11:25 16:44 21:14 POC Capillary Glucose 269 H 386 H 301 H 12/05/24 07:23 POC Capillary Glucose 196 H Quality VTE Prophylaxis VTE prophylaxis: mechanical ordered (SCDs) Hospitalist MIPS Advance Care Plan I have confirmed that the patient's Advanced Care Plan is present, code status is documented, or surrogate decision maker is listed in patient medical record.: Yes Medication Reconciliation I have utilized all available resources to obtain, update and review the patients current medications (includes all prescriptions, OTC, herbals, cannabis, and nutritional supplements).: Yes
[2024-12-05] MEDS: ATORVASTATIN 40 MG TABLET 80 MG PO (10:22)
[2024-12-05] MEDS: FUROSEMIDE 20 MG TABLET PO (10:22)
[2024-12-05] MEDS: DOCUSATE SODIUM 100 MG CAPSULE PO ×2 (10:22→20:40)
[2024-12-05] MEDS: VENLAFAXINE HCL XR 75 MG CAP.ER.24H 150 MG PO (10:22)
[2024-12-05] MEDS: TAMSULOSIN HCL 0.4 MG CAPSULE PO (10:22)
[2024-12-05] MEDS: buPROPion HCL XL (24 HR) 150 MG TABCR PO (10:23)
[2024-12-05] MEDS: SPIRONOLACTONE 25 MG TABLET PO (10:23)
[2024-12-05] MEDS: ASCORBIC ACID 500 MG TABLET PO (10:23)
[2024-12-05] MEDS: LORATADINE 10 MG TABLET PO (10:23)
[2024-12-05] MEDS: CHOLECALCIFEROL (VITAMIN D3) 25 MCG (1,000 UNITS) TABLET PO (10:23)
[2024-12-05] MEDS: EMPAGLIFLOZIN 10 MG TABLET PO (10:23)
[2024-12-05] MEDS: PANTOPRAZOLE 40 MG TABLET PO (10:23)
[2024-12-05] MEDS: FAMOTIDINE 20 MG TABLET 40 MG PO (10:23)
[2024-12-05] MEDS: LIDOCAINE 5% PATCH 1 PATCH TRANSDERM (10:24)
[2024-12-05] MEDS: INSULIN GLARGINE (*BKC) 100 UNITS/ML 15 UNITS SUB-Q (10:30)
[2024-12-05] MEDS: INSULIN ASPART (*BKC) 100 UNITS/ML 6 UNITS SUB-Q ×2 (12:45→17:36)
[2024-12-05] MEDS: INSULIN ASPART (*BKC) 100 UNITS/ML SUB-Q ×3 (12:52→20:41)
[2024-12-05] MEDS: ONDANSETRON INJ 4 MG/2 ML VIAL IV PUSH ×2 (13:15→18:08)
[2024-12-05] MEDS: INSULIN GLARGINE (*BKC) 100 UNITS/ML 6 UNITS SUB-Q (17:35)
[2024-12-05] MEDS: SENNOSIDES 8.6 MG TABLET PO (20:40)
[2024-12-06] MEDS: ALBUTEROL SULFATE (*SP) AEROSOL 1 PUFF INHALATION ×3 (00:11→08:25)
--- NOTE | 2024-12-06 00:12 | PCRCNOTE ---
Pt states she will call for tx if needed otherwise will have tx at 0800am
[2024-12-06] MEDS: BISACODYL 10 MG SUPPOSITORY RECTAL ×2 (00:34→20:55)
[2024-12-06] MEDS: MORPHINE SULFATE (*CRX) 4 MG/ML INJ 2 MG IV PUSH ×4 (00:34→08:48)
[2024-12-06 06:00] VITALS: BP 123/74; PULSE 105; RESP 18; TEMP 36.9; O2SAT 98
[2024-12-06] MEDS: ceFAZolin 2 GM in SODIUM CHLORIDE 0.9% IV 50 ML 100 ML IVPB (06:14)
--- NOTE | 2024-12-06 06:29 | PCRCNOTE ---
Window of time for administration has passed. See next scheduled administration.
[2024-12-06 08:27] VITALS: PULSE 107; RESP 20
[2024-12-06] MEDS: ONDANSETRON INJ 4 MG/2 ML VIAL IV PUSH (08:50)
[2024-12-06 08:58] LABS: Hematocrit 27.4 % (37.0-47.0); Hemoglobin 8.5 g/dL (12.0-15.0); Immature Platelet Fraction Pct 5.9 % (0.9-11.2); Mean Corpuscular HGB Conc 31.0 g/dl (32-36); Mean Corpuscular Hemoglobin 23.5 pg (26-34); Mean Corpuscular Volume 75.7 fl (80-100); Platelet Count Result 128 k/mm3 (150-375); Red Blood Count 3.62 M/mm3 (4.2-5.4); White Blood Count 9.3 K/mm3 (4.5-10.0)
[2024-12-06] MEDS: INSULIN ASPART (*BKC) 100 UNITS/ML 6 UNITS SUB-Q ×3 (09:00→18:12)
[2024-12-06] MEDS: ASCORBIC ACID 500 MG TABLET PO (09:02)
[2024-12-06] MEDS: buPROPion HCL XL (24 HR) 150 MG TABCR PO (09:03)
[2024-12-06] MEDS: DOCUSATE SODIUM 100 MG CAPSULE PO ×2 (09:03→20:54)
[2024-12-06] MEDS: EMPAGLIFLOZIN 10 MG TABLET PO (09:03)
[2024-12-06] MEDS: ATORVASTATIN 40 MG TABLET 80 MG PO (09:03)
[2024-12-06] MEDS: CHOLECALCIFEROL (VITAMIN D3) 25 MCG (1,000 UNITS) TABLET PO (09:03)
[2024-12-06] MEDS: FAMOTIDINE 20 MG TABLET 40 MG PO (09:04)
[2024-12-06] MEDS: FUROSEMIDE 20 MG TABLET PO (09:04)
[2024-12-06] MEDS: PANTOPRAZOLE 40 MG TABLET PO (09:04)
[2024-12-06] MEDS: INSULIN GLARGINE (*BKC) 100 UNITS/ML 18 UNITS SUB-Q (09:04)
[2024-12-06] MEDS: TAMSULOSIN HCL 0.4 MG CAPSULE PO (09:05)
[2024-12-06] MEDS: LIDOCAINE 5% PATCH 1 PATCH TRANSDERM (09:05)
[2024-12-06] MEDS: LORATADINE 10 MG TABLET PO (09:05)
[2024-12-06] MEDS: SENNOSIDES 8.6 MG TABLET PO ×2 (09:06→20:54)
[2024-12-06] MEDS: SPIRONOLACTONE 25 MG TABLET PO (09:06)
[2024-12-06] MEDS: VENLAFAXINE HCL XR 75 MG CAP.ER.24H 150 MG PO (09:06)
[2024-12-06 09:16] LABS: Alanine Aminotransferase 13 U/L (6-35); Albumin Level 3.2 g/dL (3.5-5.1); Alkaline Phosphatase 78 U/L (38-126); Anion Gap 2 mmol/L (4-12); Aspartate Amino Transferase 28 U/L (14-36); Bilirubin,Total 0.4 mg/dL (0.2-1.3); Blood Urea Nitrogen 16 mg/dL (7-17); Calcium 9.2 mg/dL (8.4-10.2); Carbon Dioxide 27 mmol/L (22-30); Chloride 99 mmol/L (98-107); Estimated CRCL calculation 59 ml/min; Estimated Glomerular Filt Rate 60; Glucose 185 mg/dL (65-110); Potassium 4.5 mmol/L (3.4-5.0); Sodium 128 mmol/L (137-145); Total Protein 6.1 g/dL (6.3-8.2)
--- NOTE | 2024-12-06 10:12 | PCPTNOTE ---
Attempted to see patient for PT, however patient refused. Patient reported she was too sleepy to work with therapy.
[2024-12-06] MEDS: HYDROcodone/acetaminophen (*CRX) 10-325 MG TABLET 1 TAB PO (12:52)
--- NOTE | 2024-12-06 13:57 | P.PNIM_ITS ---
Progress Note: A&P Assessment and Plan (1) Type 2 diabetes mellitus with hyperglycemia, without long-term current use of insulin: Code(s): E11.65 - Type 2 diabetes mellitus with hyperglycemia Status: Acute (2) S/P laminectomy with spinal fusion: Onset Date: 12/03/24 Code(s): Z98.1 - Arthrodesis status Status: Acute (3) Continuous dependence on cigarette smoking: Code(s): F17.210 - Nicotine dependence, cigarettes, uncomplicated Status: Acute Plan 1.Lumbar Neural Foraminal stenosis s/p L5-S1 Laminectomy/Fusion --Postoperative/pain management per primary service. --Bowel regimen: start miralax BID, Senna bid, bisacodyl suppository hs --SCD's --Gee was discontinued --Pain control --Added a lidocaine patch for neck pain. Pending discharge for pain control per Neurosurgery 2.DMII with Hyperglycemia Home meds: Mounjaro, Glimeperide, & Empagliflozin Home blood sugars usually 140-180 Resume empagliflozin Continue lantus, SSI, POCT and hypoglycemia Diabetic diet 3.Current smoker Smoking cessation education provided. Time Spent With Patient Time: 35 minutes Subjective Date/time seen: 12/06/24 13:57 Interval history: sitting in the chair and eating lunch. Patient looked comfortable. Complains pain with movement. Exam Narrative: APPEARANCE: No acute distress EYES: EOMI HEENT: Normocephalic, atraumatic, OMM RESPIRATORY: No respiratory distress Clear to auscultation bilaterally with no rhonchi wheezing or rales. CARDIOVASCULAR: RRR, S1 and S2 without murmurs rubs or gallops. ABDOMINAL: Soft, nontender, nondistended, no rebound or guarding MUSCULOSKELETAl: pain with movement. NEURO: Awake and alert. Following commands, speech normal, no focal deficits SKIN:: Warm, dry. No rashes lesions or abrasions PSYCHIATRIC: Normal affect/mood, Objective Data Vital Signs Vital Signs: Vital Signs - 24 hr 12/05/24 20:55 12/05/24 22:00 12/06/24 06:00 Temperature 36.4 C L 36.9 C Pulse Rate 102 H 108 H 105 H Respiratory Rate 14 18 18 Blood Pressure 106/69 123/74 Pulse Oximetry 100 98 Oxygen Delivery 12/06/24 08:00 12/06/24 08:27 Temperature Pulse Rate 107 H Respiratory Rate 20 Blood Pressure Pulse Oximetry Oxygen Delivery Room Air Intake/Output Intake/Output: Intake & Output 12/03/24 12/04/24 12/05/24 12/06/24 23:59 23:59 23:59 23:59 Intake Total 1100 2160 4870 720 Output Total 240 1665 90 Balance 865 317 5675 720 Meds/Results Medications: Active Medications Generic Name Dose Route Start Last Admin Trade Name Freq PRN Reason Stop Dose Admin Acetaminophen 650 mg 12/03/24 14:22 Acetaminophen 325 Mg Tablet PO Q6H PRN Mild Pain (1-3) Hydrocodone Bitart/Acetaminophen 1 tab 12/03/24 14:22 12/06/24 12:52 Hydrocodone/Acetaminophen (*Crx) 10-325 Mg Tablet PO 1 tab Q4H PRN Administration Moderate Pain (4-6) Al Hydrox/Mg Hydrox/Simethicone 20 ml 12/03/24 14:22 Mag Hydrox/Al Hydrox/Simeth 30 Ml Udc PO Q4H PRN Indigestion/Heartburn Albuterol 1 puff 12/06/24 11:43 Albuterol Sulfate (*Sp) Aerosol 1 Puff INHALATION Q4HRT PRN Wheezing Allopurinol 100 mg 12/04/24 09:00 12/06/24 09:02 Allopurinol 100 Mg Tablet PO 100 mg DAILY BRIAN Administration Ascorbic Acid 500 mg 12/04/24 09:00 12/06/24 09:02 Ascorbic Acid 500 Mg Tablet PO 500 mg DAILY BRIAN Administration Atorvastatin Calcium 80 mg 12/04/24 09:00 12/06/24 09:03 Atorvastatin 40 Mg Tablet PO 80 mg DAILY BRIAN Administration Bisacodyl 10 mg 12/03/24 14:22 Bisacodyl 10 Mg Suppository RECTAL DAILY PRN Constipation Bisacodyl 10 mg 12/05/24 21:00 12/06/24 00:34 Bisacodyl 10 Mg Suppository RECTAL 10 mg HS BRIAN Administration Bupropion HCl 150 mg 12/04/24 09:00 12/06/24 09:03 Bupropion Hcl Xl (24 Hr) 150 Mg Tabcr PO 150 mg QAM BRIAN Administration Cyclobenzaprine HCl 10 mg 12/03/24 14:22 12/04/24 12:03 Cyclobenzaprine Hcl 10 Mg Tablet PO 10 mg TID PRN Administration Muscle Spasms Dextrose 12.5 gm 12/03/24 14:22 Dextrose 50% 25 Gm/50 Ml Syringe IV PUSH PRN PRN Hypoglycemia Protocol Docusate Sodium 100 mg 12/03/24 21:00 12/06/24 09:03 Docusate Sodium 100 Mg Capsule PO 100 mg Q12HR BRIAN Administration Empagliflozin 10 mg 12/04/24 16:20 12/06/24 09:03 Empagliflozin 10 Mg Tablet PO 10 mg DAILY BRIAN Administration Famotidine 40 mg 12/04/24 09:00 12/06/24 09:04 Famotidine 20 Mg Tablet PO 40 mg DAILY BRIAN Administration Furosemide 20 mg 12/04/24 09:00 12/06/24 09:04 Furosemide 20 Mg Tablet PO 20 mg QAM BRIAN Administration Glucagon 1 mg 12/03/24 14:22 Glucagon For Inj 1 Mg Vial IM PRN PRN Hypoglycemia Protocol Glucose 15 gm 12/03/24 14:22 Glucose Oral Gel 15 Gm Of Glucse In 37.5 Gm Tube PO PRN PRN Hypoglycemia Protocol Cefazolin Sodium 2 gm/ Sodium 50 mls @ 100 mls/hr 12/03/24 18:00 12/06/24 06:14 Chloride IVPB 100 mls/hr Q12H BRIAN Administration Dextrose 1,000 mls @ 100 mls/hr 12/03/24 14:22 Dextrose 5% 1,000 Ml IVPB PRN PRN Hypoglycemia Protocol Insulin Aspart 1 - 3 units 12/04/24 21:00 12/05/24 20:41 Insulin Aspart (*Bkc) 100 Units/Ml SUB-Q 1 units HS BRIAN Administration Protocol Insulin Aspart 3 - 6 units 12/04/24 08:00 12/06/24 13:05 Insulin Aspart (*Bkc) 100 Units/Ml SUB-Q Not Given TIDWM [facility] Protocol Insulin Aspart 6 units 12/05/24 17:00 12/06/24 12:52 Insulin Aspart (*Bkc) 100 Units/Ml SUB-Q 6 units TIDWM BRIAN Administration Insulin Glargine 18 units 12/06/24 09:00 12/06/24 09:04 Insulin Glargine (*Bkc) 100 Units/Ml SUB-Q 18 units DAILY BRIAN Administration Ipratropium [place] 0.5 mg 12/03/24 14:22 Ipratropium Br 0.02% Inh Soln 0.5 Mg/2.5 Ml Vial INHALATION Q6HRT PRN Shortness Of Breath Or Wheezing Lidocaine 1 patch 12/04/24 16:15 12/06/24 09:05 Lidocaine 5% Patch TRANSDERM 1 patch DAILY BRIAN Administration Loratadine 10 mg 12/04/24 09:00 12/06/24 09:05 Loratadine 10 Mg Tablet PO 10 mg QAM BRIAN Administration Morphine Sulfate 2 mg 12/03/24 15:26 12/06/24 08:48 Morphine Sulfate (*Crx) 4 Mg/Ml Inj IV PUSH 2 mg Q2H PRN Administration Pain Rated 7-10 Ondansetron HCl 4 mg 12/03/24 14:22 12/06/24 08:50 Ondansetron Inj 4 Mg/2 Ml Vial IV PUSH 4 mg Q8H PRN Administration Nausea And Vomiting Pantoprazole Sodium 40 mg 12/04/24 09:00 12/06/24 09:04 Pantoprazole 40 Mg Tablet PO 40 mg QAM BRIAN Administration Polyethylene Glycol 17 gm 12/05/24 17:00 12/06/24 09:05 Polyethylene Glycol 3350 17 Gm Powd.Pack PO 17 gm BID BRIAN Administration Senna 8.6 mg 12/05/24 21:00 12/06/24 09:06 Sennosides 8.6 Mg Tablet PO 8.6 mg Q12HR BRIAN Administration Senna/Docusate Sodium 1 tab 12/03/24 14:22 Senna/Docusate Sodium Tablet PO HS PRN Constipation Spironolactone 25 mg 12/04/24 09:00 12/06/24 09:06 Spironolactone 25 Mg Tablet PO 25 mg DAILY BRIAN Administration Tamsulosin HCl 0.4 mg 12/04/24 09:00 12/06/24 09:05 Tamsulosin Hcl 0.4 Mg Capsule PO 0.4 mg DAILY BRIAN Administration Tizanidine HCl 2 mg 12/03/24 14:22 Tizanidine Hcl 2 Mg Tablet PO TID PRN Muscle Spasticity Venlafaxine HCl 150 mg 12/04/24 09:00 12/06/24 09:06 Venlafaxine Hcl Xr 75 Mg Cap.Er.24h PO 150 mg DAILY BRIAN Administration Vitamin D 25 mcg 12/04/24 09:00 12/06/24 09:03 Cholecalciferol (Vitamin D3) 25 Mcg (1,000 Units) Tablet PO 25 mcg DAILY BRIAN Administration Radiology Results: ITS Impressions Fluoroscopy 12/03/24 12:56 IMPRESSION: Fluoroscopy used during posterior lumbar interbody fusion at L5-S1.. Labs Labs: Laboratory Results - last 24 hr 12/05/24 12/05/24 12/06/24 16:23 20:01 07:47 WBC RBC Hgb Hct MCV MCH MCHC RDW Plt Count MPV % Immature Plt Fraction Sodium Potassium Chloride Carbon Dioxide Anion Gap BUN Creatinine Estim Creat Clear Calc Estimated GFR Glucose POC Capillary Glucose 251 H 232 H 170 H Calcium Total Bilirubin AST ALT Alkaline Phosphatase Total Protein Albumin 12/06/24 12/06/24 08:44 10:56 WBC 9.3 RBC 3.62 L Hgb 8.5 L D Hct 27.4 L MCV 75.7 L MCH 23.5 L MCHC 31.0 L RDW 16.7 H Plt Count 128 L MPV 11.1 H % Immature Plt Fraction 5.9 Sodium 128 L Potassium 4.5 Chloride 99 Carbon Dioxide 27 Anion Gap 2 L BUN 16 D Creatinine 0.96 Estim Creat Clear Calc 59 Estimated GFR 60 Glucose 185 H POC Capillary Glucose 179 H Calcium 9.2 Total Bilirubin 0.4 AST 28 ALT 13 Alkaline Phosphatase 78 Total Protein 6.1 L Albumin 3.2 L Quality VTE Prophylaxis VTE prophylaxis: mechanical ordered (SCDs)
[2024-12-06 14:00] VITALS: BP 110/63; PULSE 102; RESP 18; TEMP 36.6; O2SAT 98
--- NOTE | 2024-12-06 14:25 | WPDNEUROSGPN ---
Progress Note: A&P Assessment and Plan (1) S/P laminectomy with spinal fusion: Onset Date: 12/03/24 Code(s): Z98.1 - Arthrodesis status Status: Acute Assessment and Plan: - Continue to work on pain control - changed [place] to Percocet - increased tizanidine to 4 mg - Add gabapentin 300 mg t.i.d. - limit IV pain medication - continue PT OT - appreciate hospitalist recs for hyperglycemia - okay for discharge when pain controlled and medically cleared Discussed with Dr. Beal, who is in agreement Subjective Date/time seen: 12/06/24 14:25 Interval history: Pod 3. Complaining of back pain with some pain into the thighs and numbness into feet (not new since surgery). This has improved a little bit since yesterday but still requiring IV pain medication. She was able to ambulate with therapy. Tolerating oral intake and voiding independently. Blood sugars better controlled with hospitalist recommendations. Sitting up in chair eating lunch. Exam Narrative: Patient sitting in chair. A&O x4. Calm, cooperative, no acute distress. Normal respiratory effort. Incisional dressing clean, dry, intact. No shadowing. Sensation to light touch intact in BLE. Motor Strength 5 /5 BLE. Gait not tested. Objective Data Vital Signs Vital Signs: Vital Signs - 24 hr 12/05/24 20:55 12/05/24 22:00 12/06/24 06:00 Temperature 97.5 F L 98.4 F Pulse Rate 102 H 108 H 105 H Respiratory Rate 14 18 18 Blood Pressure 106/69 123/74 Pulse Oximetry 100 98 Oxygen Delivery 12/06/24 08:00 12/06/24 08:27 12/06/24 14:00 Temperature 97.8 F Pulse Rate 107 H 102 H Respiratory Rate 20 18 Blood Pressure 110/63 Pulse Oximetry 98 Oxygen Delivery Room Air Intake/Output Intake/Output: Intake & Output 12/03/24 12/04/24 12/05/24 12/06/24 23:59 23:59 23:59 23:59 Intake Total 1100 2160 4870 960 Output Total 240 1665 90 Balance 776 394 1776 960 Meds/Results Medications: Active Medications Generic Name Dose Route Start Last Admin Trade Name Freq PRN Reason Stop Dose Admin Acetaminophen 650 mg 12/03/24 14:22 Acetaminophen 325 Mg Tablet PO Q6H PRN Mild Pain (1-3) Al Hydrox/Mg Hydrox/Simethicone 20 ml 12/03/24 14:22 Mag Hydrox/Al Hydrox/Simeth 30 Ml Udc PO Q4H PRN Indigestion/Heartburn Albuterol 1 puff 12/06/24 11:43 Albuterol Sulfate (*Sp) Aerosol 1 Puff INHALATION Q4HRT PRN Wheezing Allopurinol 100 mg 12/04/24 09:00 12/06/24 09:02 Allopurinol 100 Mg Tablet PO 100 mg DAILY BRIAN Administration Ascorbic Acid 500 mg 12/04/24 09:00 12/06/24 09:02 Ascorbic Acid 500 Mg Tablet PO 500 mg DAILY BRIAN Administration Atorvastatin Calcium 80 mg 12/04/24 09:00 12/06/24 09:03 Atorvastatin 40 Mg Tablet PO 80 mg DAILY BRIAN Administration Bisacodyl 10 mg 12/03/24 14:22 Bisacodyl 10 Mg Suppository RECTAL DAILY PRN Constipation Bisacodyl 10 mg 12/05/24 21:00 12/06/24 00:34 Bisacodyl 10 Mg Suppository RECTAL 10 mg HS BRIAN Administration Bupropion HCl 150 mg 12/04/24 09:00 12/06/24 09:03 Bupropion Hcl Xl (24 Hr) 150 Mg Tabcr PO 150 mg QAM BRIAN Administration Cyclobenzaprine HCl 10 mg 12/03/24 14:22 12/04/24 12:03 Cyclobenzaprine Hcl 10 Mg Tablet PO 10 mg TID PRN Administration Muscle Spasms Dextrose 12.5 gm 12/03/24 14:22 Dextrose 50% 25 Gm/50 Ml Syringe IV PUSH PRN PRN Hypoglycemia Protocol Docusate Sodium 100 mg 12/03/24 21:00 12/06/24 09:03 Docusate Sodium 100 Mg Capsule PO 100 mg Q12HR BRIAN Administration Empagliflozin 10 mg 12/04/24 16:20 12/06/24 09:03 Empagliflozin 10 Mg Tablet PO 10 mg DAILY BRIAN Administration Famotidine 40 mg 12/04/24 09:00 12/06/24 09:04 Famotidine 20 Mg Tablet PO 40 mg DAILY BRIAN Administration Furosemide 20 mg 12/04/24 09:00 12/06/24 09:04 Furosemide 20 Mg Tablet PO 20 mg QAM BRIAN Administration Gabapentin 300 mg 12/06/24 17:00 Gabapentin 300 Mg Capsule PO TID BRIAN Glucagon 1 mg 12/03/24 14:22 Glucagon For Inj 1 Mg Vial IM PRN PRN Hypoglycemia Protocol Glucose 15 gm 12/03/24 14:22 Glucose Oral Gel 15 Gm Of Glucse In 37.5 Gm Tube PO PRN PRN Hypoglycemia Protocol Cefazolin Sodium 2 gm/ Sodium 50 mls @ 100 mls/hr 12/03/24 18:00 12/06/24 06:14 Chloride IVPB 100 mls/hr Q12H BRIAN Administration Dextrose 1,000 mls @ 100 mls/hr 12/03/24 14:22 Dextrose 5% 1,000 Ml IVPB PRN PRN Hypoglycemia Protocol Insulin Aspart 1 - 3 units 12/04/24 21:00 12/05/24 20:41 Insulin Aspart (*Bkc) 100 Units/Ml SUB-Q 1 units HS BRIAN Administration Protocol Insulin Aspart 3 - 6 units 12/04/24 08:00 12/06/24 13:05 Insulin Aspart (*Bkc) 100 Units/Ml SUB-Q Not Given TIDWM [facility] Protocol Insulin Aspart 6 units 12/05/24 17:00 12/06/24 12:52 Insulin Aspart (*Bkc) 100 Units/Ml SUB-Q 6 units TIDWM BRIAN Administration Insulin Glargine 18 units 12/06/24 09:00 12/06/24 09:04 Insulin Glargine (*Bkc) 100 Units/Ml SUB-Q 18 units DAILY BRIAN Administration Ipratropium [place] 0.5 mg 12/03/24 14:22 Ipratropium Br 0.02% Inh Soln 0.5 Mg/2.5 Ml Vial INHALATION Q6HRT PRN Shortness Of Breath Or Wheezing Lidocaine 1 patch 12/04/24 16:15 12/06/24 09:05 Lidocaine 5% Patch TRANSDERM 1 patch DAILY BRIAN Administration Loratadine 10 mg 12/04/24 09:00 12/06/24 09:05 Loratadine 10 Mg Tablet PO 10 mg QAM BRIAN Administration Morphine Sulfate 2 mg 12/03/24 15:26 12/06/24 08:48 Morphine Sulfate (*Crx) 4 Mg/Ml Inj IV PUSH 2 mg Q2H PRN Administration Pain Rated 7-10 Ondansetron HCl 4 mg 12/03/24 14:22 12/06/24 08:50 Ondansetron Inj 4 Mg/2 Ml Vial IV PUSH 4 mg Q8H PRN Administration Nausea And Vomiting Oxycodone/Acetaminophen 1 tab 12/06/24 14:21 Oxycodone/Acetaminophen (*Crx) 10-325 Mg Tablet PO Q4H PRN Pain Rated 7-10 Pantoprazole Sodium 40 mg 12/04/24 09:00 12/06/24 09:04 Pantoprazole 40 Mg Tablet PO 40 mg QAM BRIAN Administration Polyethylene Glycol 17 gm 12/05/24 17:00 12/06/24 09:05 Polyethylene Glycol 3350 17 Gm Powd.Pack PO 17 gm BID BRIAN Administration Senna 8.6 mg 12/05/24 21:00 12/06/24 09:06 Sennosides 8.6 Mg Tablet PO 8.6 mg Q12HR BRIAN Administration Senna/Docusate Sodium 1 tab 12/03/24 14:22 Senna/Docusate Sodium Tablet PO HS PRN Constipation Spironolactone 25 mg 12/04/24 09:00 12/06/24 09:06 Spironolactone 25 Mg Tablet PO 25 mg DAILY BRIAN Administration Tamsulosin HCl 0.4 mg 12/04/24 09:00 12/06/24 09:05 Tamsulosin Hcl 0.4 Mg Capsule PO 0.4 mg DAILY BRIAN Administration Tizanidine HCl 4 mg 12/07/24 09:00 Tizanidine Hcl 4 Mg Tablet PO QAM BRIAN Venlafaxine HCl 150 mg 12/04/24 09:00 12/06/24 09:06 Venlafaxine Hcl Xr 75 Mg Cap.Er.24h PO 150 mg DAILY BRIAN Administration Vitamin D 25 mcg 12/04/24 09:00 12/06/24 09:03 Cholecalciferol (Vitamin D3) 25 Mcg (1,000 Units) Tablet PO 25 mcg DAILY BRIAN Administration Radiology Results: ITS Impressions Fluoroscopy 12/03/24 12:56 IMPRESSION: Fluoroscopy used during posterior lumbar interbody fusion at L5-S1.. Labs Labs: Laboratory Results - last 24 hr 12/05/24 12/05/24 12/06/24 16:23 20:01 07:47 WBC RBC Hgb Hct MCV MCH MCHC RDW Plt Count MPV % Immature Plt Fraction Sodium Potassium Chloride Carbon Dioxide Anion Gap BUN Creatinine Estim Creat Clear Calc Estimated GFR Glucose POC Capillary Glucose 251 H 232 H 170 H Calcium Total Bilirubin AST ALT Alkaline Phosphatase Total Protein Albumin 12/06/24 12/06/24 08:44 10:56 WBC 9.3 RBC 3.62 L Hgb 8.5 L D Hct 27.4 L MCV 75.7 L MCH 23.5 L MCHC 31.0 L RDW 16.7 H Plt Count 128 L MPV 11.1 H % Immature Plt Fraction 5.9 Sodium 128 L Potassium 4.5 Chloride 99 Carbon Dioxide 27 Anion Gap 2 L BUN 16 D Creatinine 0.96 Estim Creat Clear Calc 59 Estimated GFR 60 Glucose 185 H POC Capillary Glucose 179 H Calcium 9.2 Total Bilirubin 0.4 AST 28 ALT 13 Alkaline Phosphatase 78 Total Protein 6.1 L Albumin 3.2 L
[2024-12-06] MEDS: oxyCODONE/ACETAMINOPHEN (*CRX) 10-325 MG TABLET 1 TAB PO ×2 (16:32→21:09)
[2024-12-06] MEDS: INSULIN ASPART (*BKC) 100 UNITS/ML SUB-Q (21:24)
[2024-12-06 22:00] VITALS: BP 117/73; PULSE 98; RESP 20; TEMP 36.4; O2SAT 100
[2024-12-07] MEDS: oxyCODONE/ACETAMINOPHEN (*CRX) 10-325 MG TABLET 1 TAB PO ×3 (03:43→17:52)
[2024-12-07 06:00] VITALS: BP 115/76; PULSE 101; RESP 20; TEMP 36.3; O2SAT 100
[2024-12-07] MEDS: FUROSEMIDE 20 MG TABLET PO (09:01)
[2024-12-07] MEDS: FAMOTIDINE 20 MG TABLET 40 MG PO (09:01)
[2024-12-07] MEDS: SENNOSIDES 8.6 MG TABLET PO ×2 (09:01→20:21)
[2024-12-07] MEDS: TAMSULOSIN HCL 0.4 MG CAPSULE PO (09:01)
[2024-12-07] MEDS: TIZANIDINE HCL 4 MG TABLET PO (09:01)
[2024-12-07] MEDS: PANTOPRAZOLE 40 MG TABLET PO (09:01)
[2024-12-07] MEDS: CHOLECALCIFEROL (VITAMIN D3) 25 MCG (1,000 UNITS) TABLET PO (09:01)
[2024-12-07] MEDS: VENLAFAXINE HCL XR 75 MG CAP.ER.24H 150 MG PO (09:01)
[2024-12-07] MEDS: SPIRONOLACTONE 25 MG TABLET PO (09:01)
[2024-12-07] MEDS: GABAPENTIN 300 MG CAPSULE PO ×3 (09:01→17:54)
[2024-12-07] MEDS: ATORVASTATIN 40 MG TABLET 80 MG PO (09:02)
[2024-12-07] MEDS: EMPAGLIFLOZIN 10 MG TABLET PO (09:02)
[2024-12-07] MEDS: ASCORBIC ACID 500 MG TABLET PO (09:02)
[2024-12-07] MEDS: LORATADINE 10 MG TABLET PO (09:02)
[2024-12-07] MEDS: buPROPion HCL XL (24 HR) 150 MG TABCR PO (09:02)
[2024-12-07] MEDS: LIDOCAINE 5% PATCH 1 PATCH TRANSDERM (09:04)
[2024-12-07] MEDS: INSULIN ASPART (*BKC) 100 UNITS/ML 6 UNITS SUB-Q ×3 (09:08→17:57)
[2024-12-07] MEDS: INSULIN GLARGINE (*BKC) 100 UNITS/ML 18 UNITS SUB-Q (09:08)
[2024-12-07] MEDS: INSULIN ASPART (*BKC) 100 UNITS/ML SUB-Q (11:55)
[2024-12-07 13:50] VITALS: BP 91/55; PULSE 93; RESP 18; TEMP 36.3; O2SAT 100
[2024-12-07 16:47] VITALS: BP 108/70
--- NOTE | 2024-12-07 16:55 | P.PNIM_ITS ---
Progress Note: A&P Assessment and Plan (1) Type 2 diabetes mellitus with hyperglycemia, without long-term current use of insulin: Code(s): E11.65 - Type 2 diabetes mellitus with hyperglycemia Status: Acute (2) S/P laminectomy with spinal fusion: Onset Date: 12/03/24 Code(s): Z98.1 - Arthrodesis status Status: Acute (3) Continuous dependence on cigarette smoking: Code(s): F17.210 - Nicotine dependence, cigarettes, uncomplicated Status: Acute Plan 1.Lumbar Neural Foraminal stenosis s/p L5-S1 Laminectomy/Fusion --Postoperative/pain management per primary service. --Bowel regimen: start miralax BID, Senna bid, bisacodyl suppository hs --SCD's --Gee was discontinued --Pain control --Added a lidocaine patch for neck pain. Pending discharge for pain control per Neurosurgery 2.DMII with Hyperglycemia Home meds: Mounjaro, Glimeperide, & Empagliflozin Home blood sugars usually 140-180 Resume empagliflozin Continue lantus, SSI, POCT and hypoglycemia Diabetic diet 3.Current smoker Smoking cessation education provided. Patient is stable for discharge from medical stand point Subjective Date/time seen: 12/07/24 16:55 Interval history: Comfortable at bedside noted pain control is much better adn she is able to ambulate Review of Systems Review of Systems: 12 systems were reviewed with pertinent positives and negatives per HPI. Except as documented in the HPI, all other systems were reviewed and are negative. Exam Narrative: APPEARANCE: No acute distress EYES: EOMI HEENT: Normocephalic, atraumatic, OMM RESPIRATORY: No respiratory distress Clear to auscultation bilaterally with no rhonchi wheezing or rales. CARDIOVASCULAR: RRR, S1 and S2 without murmurs rubs or gallops. ABDOMINAL: Soft, nontender, nondistended, no rebound or guarding MUSCULOSKELETAl: pain with movement. NEURO: Awake and alert. Following commands, speech normal, no focal deficits SKIN:: Warm, dry. No rashes lesions or abrasions PSYCHIATRIC: Normal affect/mood, Const: Other: No acute distress, lying in the rate semi flower position, appears stated age HENMT: Other: Head is normocephalic atraumatic, mucous membranes are moist Neck: Other: Large neck circumference, no JVD Resp: Other: Clear to auscultation bilaterally, no increased work of breathing Cardio: Other: Mildly tachycardic, 2+ bilateral radial pedal pulses GI: Other: Soft, distended, nontender, positive bowel sounds Back/Spine/Pelvis: Other: Surgical site not directly inspected due to dressings and patient positioning, mild thoracic kyphosis Skin: Other: No pallor, non jaundice Neuro: Other: Alert oriented, speech is clear Extrem: Other: No clubbing, cyanosis or edema, no foot wounds Psych: Other: Appropriate mood and affect, pleasant and cooperative, judgment and insight intact Objective Data Vital Signs Vital Signs: Vital Signs - 24 hr 12/06/24 20:00 12/06/24 22:00 12/07/24 06:00 Temperature 97.5 F L 97.4 F L Pulse Rate 98 101 H Respiratory Rate 20 20 Blood Pressure 117/73 115/76 Pulse Oximetry 100 100 Oxygen Delivery Room Air 12/07/24 08:00 12/07/24 13:50 12/07/24 16:47 Temperature 97.3 F L Pulse Rate 93 Respiratory Rate 18 Blood Pressure 91/55 L 108/70 Pulse Oximetry 100 Oxygen Delivery Room Air Intake/Output Intake/Output: Intake & Output 12/04/24 12/05/24 12/06/24 12/07/24 23:59 23:59 23:59 23:59 Intake Total 2160 4870 1440 2058 Output Total 1665 90 Balance 495 4780 1440 8 Meds/Results Medications: Active Medications Generic Name Dose Route Start Last Admin Trade Name Freq PRN Reason Stop Dose Admin Acetaminophen 650 mg 12/03/24 14:22 Acetaminophen 325 Mg Tablet PO Q6H PRN Mild Pain (1-3) Al Hydrox/Mg Hydrox/Simethicone 20 ml 12/03/24 14:22 Mag Hydrox/Al Hydrox/Simeth 30 Ml Udc PO Q4H PRN Indigestion/Heartburn Albuterol 1 puff 12/06/24 11:43 Albuterol Sulfate (*Sp) Aerosol 1 Puff INHALATION Q4HRT PRN Wheezing Allopurinol 100 mg 12/04/24 09:00 12/07/24 09:02 Allopurinol 100 Mg Tablet PO 100 mg DAILY BRIAN Administration Ascorbic Acid 500 mg 12/04/24 09:00 12/07/24 09:02 Ascorbic Acid 500 Mg Tablet PO 500 mg DAILY BRIAN Administration Atorvastatin Calcium 80 mg 12/04/24 09:00 12/07/24 09:02 Atorvastatin 40 Mg Tablet PO 80 mg DAILY BRIAN Administration Bisacodyl 10 mg 12/03/24 14:22 Bisacodyl 10 Mg Suppository RECTAL DAILY PRN Constipation Bisacodyl 10 mg 12/05/24 21:00 12/06/24 20:55 Bisacodyl 10 Mg Suppository RECTAL 10 mg HS BRIAN Administration Bupropion HCl 150 mg 12/04/24 09:00 12/07/24 09:02 Bupropion Hcl Xl (24 Hr) 150 Mg Tabcr PO 150 mg QAM BRIAN Administration Cyclobenzaprine HCl 10 mg 12/03/24 14:22 12/04/24 12:03 Cyclobenzaprine Hcl 10 Mg Tablet PO 10 mg TID PRN Administration Muscle Spasms Dextrose 12.5 gm 12/03/24 14:22 Dextrose 50% 25 Gm/50 Ml Syringe IV PUSH PRN PRN Hypoglycemia Protocol Docusate Sodium 100 mg 12/03/24 21:00 12/07/24 09:18 Docusate Sodium 100 Mg Capsule PO Not Given Q12HR BRIAN Empagliflozin 10 mg 12/04/24 16:20 12/07/24 09:02 Empagliflozin 10 Mg Tablet PO 10 mg DAILY BRIAN Administration Famotidine 40 mg 12/04/24 09:00 12/07/24 09:01 Famotidine 20 Mg Tablet PO 40 mg DAILY BRIAN Administration Furosemide 20 mg 12/04/24 09:00 12/07/24 09:01 Furosemide 20 Mg Tablet PO 20 mg QAM BRIAN Administration Gabapentin 300 mg 12/06/24 17:00 12/07/24 12:02 Gabapentin 300 Mg Capsule PO 300 mg TID BRIAN Administration Glucagon 1 mg 12/03/24 14:22 Glucagon For Inj 1 Mg Vial IM PRN PRN Hypoglycemia Protocol Glucose 15 gm 12/03/24 14:22 Glucose Oral Gel 15 Gm Of Glucse In 37.5 Gm Tube PO PRN PRN Hypoglycemia Protocol Dextrose 1,000 mls @ 100 mls/hr 12/03/24 14:22 Dextrose 5% 1,000 Ml IVPB PRN PRN Hypoglycemia Protocol Insulin Aspart 1 - 3 units 12/04/24 21:00 12/06/24 21:24 Insulin Aspart (*Bkc) 100 Units/Ml SUB-Q 1 units HS BRIAN Administration Protocol Insulin Aspart 3 - 6 units 12/04/24 08:00 12/07/24 11:55 Insulin Aspart (*Bkc) 100 Units/Ml SUB-Q 4 units TIDWM BRIAN Administration Protocol Insulin Aspart 6 units 12/05/24 17:00 12/07/24 11:54 Insulin Aspart (*Bkc) 100 Units/Ml SUB-Q 6 units TIDWM BRIAN Administration Insulin Glargine 18 units 12/06/24 09:00 12/07/24 09:08 Insulin Glargine (*Bkc) 100 Units/Ml SUB-Q 18 units DAILY BRIAN Administration Ipratropium [place] 0.5 mg 12/03/24 14:22 Ipratropium Br 0.02% Inh Soln 0.5 Mg/2.5 Ml Vial INHALATION Q6HRT PRN Shortness Of Breath Or Wheezing Lidocaine 1 patch 12/04/24 16:15 12/07/24 09:04 Lidocaine 5% Patch TRANSDERM 1 patch DAILY BRIAN Administration Loratadine 10 mg 12/04/24 09:00 12/07/24 09:02 Loratadine 10 Mg Tablet PO 10 mg QAM BRIAN Administration Morphine Sulfate 2 mg 12/03/24 15:26 12/06/24 08:48 Morphine Sulfate (*Crx) 4 Mg/Ml Inj IV PUSH 2 mg Q2H PRN Administration Pain Rated 7-10 Ondansetron HCl 4 mg 12/03/24 14:22 12/06/24 08:50 Ondansetron Inj 4 Mg/2 Ml Vial IV PUSH 4 mg Q8H PRN Administration Nausea And Vomiting Oxycodone/Acetaminophen 1 tab 12/06/24 14:21 12/07/24 09:14 Oxycodone/Acetaminophen (*Crx) 10-325 Mg Tablet PO 1 tab Q4H PRN Administration Pain Rated 7-10 Pantoprazole Sodium 40 mg 12/04/24 09:00 12/07/24 09:01 Pantoprazole 40 Mg Tablet PO 40 mg QAM BRIAN Administration Polyethylene Glycol 17 gm 12/05/24 17:00 12/07/24 09:18 Polyethylene Glycol 3350 17 Gm Powd.Pack PO Not Given BID BRIAN Senna 8.6 mg 12/05/24 21:00 12/07/24 09:01 Sennosides 8.6 Mg Tablet PO 8.6 mg Q12HR BRIAN Administration Senna/Docusate Sodium 1 tab 12/03/24 14:22 Senna/Docusate Sodium Tablet PO HS PRN Constipation Spironolactone 25 mg 12/04/24 09:00 12/07/24 09:01 Spironolactone 25 Mg Tablet PO 25 mg DAILY BRIAN Administration Tamsulosin HCl 0.4 mg 12/04/24 09:00 12/07/24 09:01 Tamsulosin Hcl 0.4 Mg Capsule PO 0.4 mg DAILY BRIAN Administration Tizanidine HCl 4 mg 12/07/24 09:00 12/07/24 09:01 Tizanidine Hcl 4 Mg Tablet PO 4 mg QAM BRIAN Administration Venlafaxine HCl 150 mg 12/04/24 09:00 12/07/24 09:01 Venlafaxine Hcl Xr 75 Mg Cap.Er.24h PO 150 mg DAILY BRIAN Administration Vitamin D 25 mcg 12/04/24 09:00 12/07/24 09:01 Cholecalciferol (Vitamin D3) 25 Mcg (1,000 Units) Tablet PO 25 mcg DAILY BRIAN Administration Radiology Results: ITS Impressions Fluoroscopy 12/03/24 12:56 IMPRESSION: Fluoroscopy used during posterior lumbar interbody fusion at L5-S1.. Labs Labs: Laboratory Results - last 24 hr 12/06/24 12/07/24 12/07/24 21:18 07:05 11:12 POC Capillary Glucose 244 H 169 H 267 H 12/07/24 16:31 POC Capillary Glucose 135 H Quality VTE Prophylaxis VTE prophylaxis: mechanical ordered (SCDs)
[2024-12-07] MEDS: MORPHINE SULFATE (*CRX) 4 MG/ML INJ 2 MG IV PUSH (20:19)
[2024-12-07] MEDS: DOCUSATE SODIUM 100 MG CAPSULE PO (20:21)
[2024-12-07] MEDS: CYCLOBENZAPRINE HCL 10 MG TABLET PO (20:35)
[2024-12-07] MEDS: BISACODYL 10 MG SUPPOSITORY RECTAL (20:35)
[2024-12-07 22:00] VITALS: BP 106/68; PULSE 100; RESP 18; TEMP 36.1; O2SAT 100
[2024-12-08] MEDS: oxyCODONE/ACETAMINOPHEN (*CRX) 10-325 MG TABLET 1 TAB PO ×2 (01:50→11:01)
[2024-12-08] MEDS: CYCLOBENZAPRINE HCL 10 MG TABLET PO ×2 (05:13→11:02)
[2024-12-08 06:00] VITALS: BP 107/66; PULSE 94; RESP 18; TEMP 36.2; O2SAT 99
[2024-12-08 06:41] LABS: Iron 18 ug/dL (37-170)
[2024-12-08 06:50] LABS: Percent Iron Saturation 6 % (20-50)
[2024-12-08 07:17] LABS: Ferritin 36.30 ng/mL (11.1-264)
[2024-12-08] MEDS: EMPAGLIFLOZIN 10 MG TABLET PO (09:09)
[2024-12-08] MEDS: ASCORBIC ACID 500 MG TABLET PO (09:09)
[2024-12-08] MEDS: TIZANIDINE HCL 4 MG TABLET PO (09:09)
[2024-12-08] MEDS: TAMSULOSIN HCL 0.4 MG CAPSULE PO (09:09)
[2024-12-08] MEDS: LORATADINE 10 MG TABLET PO (09:09)
[2024-12-08] MEDS: SPIRONOLACTONE 25 MG TABLET PO (09:09)
[2024-12-08] MEDS: FAMOTIDINE 20 MG TABLET 40 MG PO (09:09)
[2024-12-08] MEDS: FUROSEMIDE 20 MG TABLET PO (09:09)
[2024-12-08] MEDS: CHOLECALCIFEROL (VITAMIN D3) 25 MCG (1,000 UNITS) TABLET PO (09:10)
[2024-12-08] MEDS: VENLAFAXINE HCL XR 75 MG CAP.ER.24H 150 MG PO (09:10)
[2024-12-08] MEDS: buPROPion HCL XL (24 HR) 150 MG TABCR PO (09:10)
[2024-12-08] MEDS: GABAPENTIN 300 MG CAPSULE PO ×2 (09:10→12:03)
[2024-12-08] MEDS: PANTOPRAZOLE 40 MG TABLET PO (09:10)
[2024-12-08] MEDS: ATORVASTATIN 40 MG TABLET 80 MG PO (09:10)
[2024-12-08] MEDS: LIDOCAINE 5% PATCH 1 PATCH TRANSDERM (09:10)
[2024-12-08] MEDS: INSULIN ASPART (*BKC) 100 UNITS/ML 6 UNITS SUB-Q ×2 (09:11→12:05)
[2024-12-08] MEDS: INSULIN GLARGINE (*BKC) 100 UNITS/ML 18 UNITS SUB-Q (09:11)
--- NOTE | 2024-12-08 10:16 | P.PNIM_ITS ---
Progress Note: A&P Assessment and Plan (1) Type 2 diabetes mellitus with hyperglycemia, without long-term current use of insulin: Code(s): E11.65 - Type 2 diabetes mellitus with hyperglycemia Status: Acute (2) S/P laminectomy with spinal fusion: Onset Date: 12/03/24 Code(s): Z98.1 - Arthrodesis status Status: Acute (3) Continuous dependence on cigarette smoking: Code(s): F17.210 - Nicotine dependence, cigarettes, uncomplicated Status: Acute Plan 1.Lumbar Neural Foraminal stenosis s/p L5-S1 Laminectomy/Fusion --Postoperative/pain management per primary service. --Bowel regimen: start miralax BID, Senna bid, bisacodyl suppository hs --SCD's --Gee was discontinued --Pain control --Added a lidocaine patch for neck pain. Pending discharge for pain control per Neurosurgery 2.DMII with Hyperglycemia Home meds: Mounjaro, Glimeperide, & Empagliflozin Home blood sugars usually 140-180 Resume empagliflozin Continue lantus, SSI, POCT and hypoglycemia Diabetic diet 3.Current smoker Smoking cessation education provided. Patient is stable for discharge from medical stand point Subjective Date/time seen: 12/08/24 10:16 Interval history: Comfortable at bedside patient is able to ambulate Review of Systems Review of Systems: 12 systems were reviewed with pertinent positives and negatives per HPI. Except as documented in the HPI, all other systems were reviewed and are negative. Exam Narrative: APPEARANCE: No acute distress EYES: EOMI HEENT: Normocephalic, atraumatic, OMM RESPIRATORY: No respiratory distress Clear to auscultation bilaterally with no rhonchi wheezing or rales. CARDIOVASCULAR: RRR, S1 and S2 without murmurs rubs or gallops. ABDOMINAL: Soft, nontender, nondistended, no rebound or guarding MUSCULOSKELETAl: pain with movement. NEURO: Awake and alert. Following commands, speech normal, no focal deficits SKIN:: Warm, dry. No rashes lesions or abrasions PSYCHIATRIC: Normal affect/mood, Const: Other: No acute distress, lying in the rate semi flower position, appears stated age HENMT: Other: Head is normocephalic atraumatic, mucous membranes are moist Neck: Other: Large neck circumference, no JVD Resp: Other: Clear to auscultation bilaterally, no increased work of breathing Cardio: Other: Mildly tachycardic, 2+ bilateral radial pedal pulses GI: Other: Soft, distended, nontender, positive bowel sounds Back/Spine/Pelvis: Other: Surgical site not directly inspected due to dressings and patient positioning, mild thoracic kyphosis Skin: Other: No pallor, non jaundice Neuro: Other: Alert oriented, speech is clear Extrem: Other: No clubbing, cyanosis or edema, no foot wounds Psych: Other: Appropriate mood and affect, pleasant and cooperative, judgment and insight inta ct Objective Data Vital Signs Vital Signs: Vital Signs - 24 hr 12/07/24 13:50 12/07/24 16:47 12/07/24 20:00 Temperature 97.3 F L Pulse Rate 93 Respiratory Rate 18 Blood Pressure 91/55 L 108/70 Pulse Oximetry 100 Oxygen Delivery Room Air 12/07/24 22:00 12/08/24 06:00 Temperature 97.0 F L 97.2 F L Pulse Rate 100 94 Respiratory Rate 18 18 Blood Pressure 106/68 107/66 Pulse Oximetry 100 99 Oxygen Delivery Intake/Output Intake/Output: Intake & Output 12/05/24 12/06/24 12/07/24 12/08/24 23:59 23:59 23:59 23:59 Intake Total 4870 1440 2848 Output Total 90 Balance 4780 1440 2848 Meds/Results Medications: Active Medications Generic Name Dose Route Start Last Admin Trade Name Freq PRN Reason Stop Dose Admin Acetaminophen 650 mg 12/03/24 14:22 Acetaminophen 325 Mg Tablet PO Q6H PRN Mild Pain (1-3) Al Hydrox/Mg Hydrox/Simethicone 20 ml 12/03/24 14:22 Mag Hydrox/Al Hydrox/Simeth 30 Ml Udc PO Q4H PRN Indigestion/Heartburn Albuterol 1 puff 12/06/24 11:43 Albuterol Sulfate (*Sp) Aerosol 1 Puff INHALATION Q4HRT PRN Wheezing Allopurinol 100 mg 12/04/24 09:00 12/08/24 09:10 Allopurinol 100 Mg Tablet PO 100 mg DAILY BRIAN Administration Ascorbic Acid 500 mg 12/04/24 09:00 12/08/24 09:09 Ascorbic Acid 500 Mg Tablet PO 500 mg DAILY BRIAN Administration Atorvastatin Calcium 80 mg 12/04/24 09:00 12/08/24 09:10 Atorvastatin 40 Mg Tablet PO 80 mg DAILY BRIAN Administration Bisacodyl 10 mg 12/03/24 14:22 Bisacodyl 10 Mg Suppository RECTAL DAILY PRN Constipation Bisacodyl 10 mg 12/05/24 21:00 12/07/24 20:35 Bisacodyl 10 Mg Suppository RECTAL 10 mg HS BRIAN Administration Bupropion HCl 150 mg 12/04/24 09:00 12/08/24 09:10 Bupropion Hcl Xl (24 Hr) 150 Mg Tabcr PO 150 mg QAM BRIAN Administration Cyclobenzaprine HCl 10 mg 12/03/24 14:22 12/08/24 05:13 Cyclobenzaprine Hcl 10 Mg Tablet PO 10 mg TID PRN Administration Muscle Spasms Dextrose 12.5 gm 12/03/24 14:22 Dextrose 50% 25 Gm/50 Ml Syringe IV PUSH PRN PRN Hypoglycemia Protocol Docusate Sodium 100 mg 12/03/24 21:00 12/08/24 09:11 Docusate Sodium 100 Mg Capsule PO Not Given Q12HR BRIAN Empagliflozin 10 mg 12/04/24 16:20 12/08/24 09:09 Empagliflozin 10 Mg Tablet PO 10 mg DAILY BRIAN Administration Famotidine 40 mg 12/04/24 09:00 12/08/24 09:09 Famotidine 20 Mg Tablet PO 40 mg DAILY BRIAN Administration Furosemide 20 mg 12/04/24 09:00 12/08/24 09:09 Furosemide 20 Mg Tablet PO 20 mg QAM BRIAN Administration Gabapentin 300 mg 12/06/24 17:00 12/08/24 09:10 Gabapentin 300 Mg Capsule PO 300 mg TID BRIAN Administration Glucagon 1 mg 12/03/24 14:22 Glucagon For Inj 1 Mg Vial IM PRN PRN Hypoglycemia Protocol Glucose 15 gm 12/03/24 14:22 Glucose Oral Gel 15 Gm Of Glucse In 37.5 Gm Tube PO PRN PRN Hypoglycemia Protocol Dextrose 1,000 mls @ 100 mls/hr 12/03/24 14:22 Dextrose 5% 1,000 Ml IVPB PRN PRN Hypoglycemia Protocol Insulin Aspart 1 - 3 units 12/04/24 21:00 12/07/24 21:00 Insulin Aspart (*Bkc) 100 Units/Ml SUB-Q Not Given HS BRIAN Protocol Insulin Aspart 3 - 6 units 12/04/24 08:00 12/08/24 09:10 Insulin Aspart (*Bkc) 100 Units/Ml SUB-Q Not Given [facility] Protocol Insulin Aspart 6 units 12/05/24 17:00 12/08/24 09:11 Insulin Aspart (*Bkc) 100 Units/Ml SUB-Q 6 units TIDWM BRIAN Administration Insulin Glargine 18 units 12/06/24 09:00 12/08/24 09:11 Insulin Glargine (*Bkc) 100 Units/Ml SUB-Q 18 units DAILY BRIAN Administration Ipratropium [place] 0.5 mg 12/03/24 14:22 Ipratropium Br 0.02% Inh Soln 0.5 Mg/2.5 Ml Vial INHALATION Q6HRT PRN Shortness Of Breath Or Wheezing Lidocaine 1 patch 12/04/24 16:15 12/08/24 09:10 Lidocaine 5% Patch TRANSDERM 1 patch DAILY BRIAN Administration Loratadine 10 mg 12/04/24 09:00 12/08/24 09:09 Loratadine 10 Mg Tablet PO 10 mg QAM BRIAN Administration Morphine Sulfate 2 mg 12/03/24 15:26 12/07/24 20:19 Morphine Sulfate (*Crx) 4 Mg/Ml Inj IV PUSH 2 mg Q2H PRN Administration Pain Rated 7-10 Ondansetron HCl 4 mg 12/03/24 14:22 12/06/24 08:50 Ondansetron Inj 4 Mg/2 Ml Vial IV PUSH 4 mg Q8H PRN Administration Nausea And Vomiting Oxycodone/Acetaminophen 1 tab 12/06/24 14:21 12/08/24 01:50 Oxycodone/Acetaminophen (*Crx) 10-325 Mg Tablet PO 1 tab Q4H PRN Administration Pain Rated 7-10 Pantoprazole Sodium 40 mg 12/04/24 09:00 12/08/24 09:10 Pantoprazole 40 Mg Tablet PO 40 mg QAM [facility] Administration Polyethylene Glycol 17 gm 12/05/24 17:00 12/08/24 09:11 Polyethylene Glycol 3350 17 Gm Powd.Pack PO Not Given BID BRIAN Senna 8.6 mg 12/05/24 21:00 12/08/24 09:11 Sennosides 8.6 Mg Tablet PO Not Given Q12HR BRIAN Senna/Docusate Sodium 1 tab 12/03/24 14:22 Senna/Docusate Sodium Tablet PO HS PRN Constipation Spironolactone 25 mg 12/04/24 09:00 12/08/24 09:09 Spironolactone 25 Mg Tablet PO 25 mg DAILY BRIAN Administration Tamsulosin HCl 0.4 mg 12/04/24 09:00 12/08/24 09:09 Tamsulosin Hcl 0.4 Mg Capsule PO 0.4 mg DAILY BRIAN Administration Tizanidine HCl 4 mg 12/07/24 09:00 12/08/24 09:09 Tizanidine Hcl 4 Mg Tablet PO 4 mg QAM BRIAN Administration Venlafaxine HCl 150 mg 12/04/24 09:00 12/08/24 09:10 Venlafaxine Hcl Xr 75 Mg Cap.Er.24h PO 150 mg DAILY BRIAN Administration Vitamin D 25 mcg 12/04/24 09:00 12/08/24 09:10 Cholecalciferol (Vitamin D3) 25 Mcg (1,000 Units) Tablet PO 25 mcg DAILY BRIAN Administration Radiology Results: ITS Impressions Fluoroscopy 12/03/24 12:56 IMPRESSION: Fluoroscopy used during posterior lumbar interbody fusion at L5-S1.. Labs Labs: Laboratory Results - last 24 hr 12/07/24 12/07/24 12/07/24 11:12 16:31 20:01 POC Capillary Glucose 267 H 135 H 141 H Iron TIBC % Saturation Ferritin 12/08/24 12/08/24 05:14 07:30 POC Capillary Glucose 135 H Iron 18 L TIBC 323 % Saturation 6 L Ferritin 36.30 Quality VTE Prophylaxis VTE prophylaxis: mechanical ordered (SCDs)
[2024-12-08] MEDS: INSULIN ASPART (*BKC) 100 UNITS/ML SUB-Q (12:04)
[2024-12-08 13:52] VITALS: BP 112/67; PULSE 95; RESP 16; TEMP 36.3; O2SAT 100
--- NOTE | 2024-12-10 09:36 | P.DS_ITS ---
DS: Admitting Diagnosis Discharge Date 12/08/24 Admitting Diagnosis lumbar neuroforaminal stenosis DS: Summary Hospital Course Reason for hospitalization: postoperative care Hospital Course: Patient underwent an L5-S1 PLIF. she tolerated the procedure well and there were no complications. She was admitted for postoperative care and pain control. She had significantly did focal time ambulating due to pain in her low back. And required an extended hospital stay. She stated total of 5 days postop surgery well her postoperative pain slowly improved. She was deemed stable for discharge on December 08, 2024. That point she was ambulating voiding and her pain was controlled without difficulty. Time Spent with Patient Time attestation: Total time spent providing and/or coordinating discharge services: Exam Narrative: She was neurologically intact on examination without any evidence of focal neurologic deficit Discharge Plan Discharge Attending physician on discharge: Parmjit Beal Consulting providers: Светлана Rowe; Alma Chapa; Hayden Hunter; Cesar Perkins; Cassie Montoya; Edward Suarez Jr.; Tanisha Zapien; Li Castañeda; Cecil Schulte Discharging Clinician: Parmjit Beal Patient Disposition: Home with Home Health Service Activity: july shower Diet: as tolerated Wound Care Instructions: follow printed instructions Discharge Instructions: Dr Beal Discharge Instructions Okay to ambulate. Okay to shower. Do not bathe/swim X 6 weeks. No bending, lifting, twisting or lifting heavier than 1 gallon of milk. Schedule a follow-up clinic appointment in 2 weeks. Care Coordination: Patient to have [facility] for PT/OT eval and treat, and intermediate. Their phone number is [phone], if you have any questions. They will contact you to schedule their visits. Patient Instructions: Antibiotic Form, Heart Failure (GEN), Cigarette Smoking and Your Health (GEN) Patient Language: Kittitian Stand Alone Forms: General Discharge Information Follow-up/Referrals: Parmjit Beal MD [Physician, Neurosurgery] Discharge Medications: New sennosides [senna] 8.6 mg tablet 8.6 mg PO BID PRN (Reason: constipation) Qty: 30 2RF oxycodone 5 mg tablet 5 mg PO Q4H PRN (Reason: pain) Qty: 32 0RF cyclobenzaprine 5 mg tablet 5 mg PO HS Qty: 30 0RF sennosides [Senokot] 8.6 mg Tablet 8.6 mg PO Q12HR 10 Days Qty: 20 0RF tizanidine [Zanaflex] 4 mg Tablet 4 mg PO QAM 7 Days Qty: 7 0RF oxycodone-acetaminophen 10-325 mg Tablet 1 tablet PO Q4H PRN (Reason: Pain Rated 7-10) 5 Days Qty: 30 0RF gabapentin [Neurontin] 300 mg Capsule 300 mg PO TID 30 Days Qty: 90 0RF Jardiance 10 mg Tablet 10 mg PO DAILY Qty: 30 0RF Continued albuterol sulfate 90 mcg/actuation HFA aerosol inhaler 1 inh inhalation Q4H atorvastatin 80 mg tablet 80 mg PO DAILY docusate sodium 100 mg capsule 100 mg PO DAILY epinephrine 0.3 mg/0.3 mL auto-injector 0.3 mg IM ONCE Rx Instructions: as a single dose; may repeat once furosemide 20 mg tablet 20 mg PO QAM Mounjaro 5 mg/0.5 mL pen injector 5 mg subcut WEEKLY Patient Comments: MONDAYS pantoprazole 40 mg tablet,delayed release (DR/EC) 40 mg PO QAM spironolactone 25 mg tablet 25 mg PO DAILY cholecalciferol (vitamin D3) 25 mcg (1,000 unit) capsule 25 mcg PO DAILY allopurinol 100 mg tablet 100 mg PO DAILY ascorbic acid (vitamin C) 500 mg tablet 500 mg PO DAILY famotidine 40 mg tablet 40 mg PO DAILY fexofenadine 180 mg tablet 180 mg PO DAILY ipratropium bromide 0.02 % solution 2.5 ml inhalation Q6H PRN (Reason: shortness of breath or wheezing) tizanidine 2 mg tablet 2 mg PO TID PRN (Reason: muscle spasticity) tamsulosin 0.4 mg capsule 0.4 mg PO DAILY naloxone [Narcan] 4 mg/actuation spray,non-aerosol 4 mg intranasal Q2-3M PRN (Reason: opioid overdose) Rx Instructions: spray 1 dose into ONE nostril; alternate nostrils w each dose until help arrives bupropion HCl [Wellbutrin XL] 150 mg tablet extended release 24 hr 150 mg PO QAM Jardiance 10 mg tablet 10 mg PO DAILY venlafaxine 150 mg tablet extended release 24hr 150 mg PO DAILY glimepiride 2 mg tablet 2 mg PO DAILY Held aspirin 81 mg tablet,delayed release (DR/EC) 81 mg PO DAILY Hold Instructions: Resume on 12/10/24. Date of admission: 12/06/24 15:07 Primary Care Provider: Kalyan,Tani Admitting Provider: Parmjit Beal Attending physician on admission: Parmjit Beal Condition: Improved
== END 2024-12-08 15:00 | disposition home health service (06) | DRG 402 ==
LOC: ANHSURGERY 16:10 → ANH3MEDSUR 16:10
PROVIDERS: Internal Medicine; Student in an Organized Health Care Education/Training Program; Admitting Provider Neurological Surgery; Visit Provider Neurological Surgery
PROC: 0SB40ZZ Excision of Lumbosacral Disc, Open Approach (ICD-10-PCS; CPT 22612; principal; 2024-12-03 07:30)
DX: M48.07 Spinal stenosis, lumbosacral region (principal); I13.0 Hypertensive heart and chronic kidney disease with heart failure and stage 1 through stage 4 chronic kidney disease, or unspecified chronic kidney disease; M47.817 Spondylosis without myelopathy or radiculopathy, lumbosacral region; E11.22 Type 2 diabetes mellitus with diabetic chronic kidney disease; E11.65 Type 2 diabetes mellitus with hyperglycemia; E11.51 Type 2 diabetes mellitus with diabetic peripheral angiopathy without gangrene; I50.9 Heart failure, unspecified; F17.210 Nicotine dependence, cigarettes, uncomplicated; G47.33 Obstructive sleep apnea (adult) (pediatric); J44.9 Chronic obstructive pulmonary disease, unspecified; K21.9 Gastro-esophageal reflux disease without esophagitis; M10.9 Gout, unspecified; M15.9 Polyosteoarthritis, unspecified; N18.9 Chronic kidney disease, unspecified; Z95.828 Presence of other vascular implants and grafts; Z90.5 Acquired absence of kidney; Z85.528 Personal history of other malignant neoplasm of kidney; Z79.85 Long-term (current) use of injectable non-insulin antidiabetic drugs; Z79.84 Long term (current) use of oral hypoglycemic drugs
CPT/HCPCS: 36415; 80048; 80053; 82728; 82948; 83540; 83550; 85027; 85055; 85610; 86850; 86900; 86901; 94640; 97110; 97116; 97161; 97165; 97530; 97535; 99199; J0690; A9270; C1713; G0378; J1165; J1171; J1815; J2003; J2250; J2270; J2405; J2704; J3010; J7030; J7120

== ENCOUNTER 2025-02-04 11:08 | Outpatient (CLI) | payer MEDICARE, SELFPAY ==
--- NOTE | ~2025-02-04 | XR_ITS ---
XR lumbar spine 2-3V Indication: Z98.1 - Arthrodesis status Comparison: None Findings: The vertebral heights are intact. No fracture or subluxation. Bilateral pedicle screws and rods fixate L5 and S1 with disc prosthesis, the hardware is intact, no fracture is identified. The remaining disc heights are intact. Soft tissues unremarkable Impression: No acute abnormality. Reviewed, dictated and finalized at location P. SLINGER Impression: No acute abnormality.
--- OUTSIDE RECORDS SUMMARY | 2025-02-04 11:12 | XMS_ITS | Encounter Summary ---
Author Organization [facility] Address [address] [place] [address] Phone Care Team Providers Care Washing Machine Operator Name Role Phone Jackeline Dimas FLAT HAMMERER, PHYSICS INSTRUCTOR Primary Care Provider Fiona Martinez COMPLIANCE ATTORNEY Unavailable Unavailab Phil Ellis MD Unavailable [phone] Rajiv Mccormack NP Unavailable Unavailable Renita Quezada RN Unavailable Unavailable Alize Acosta FLAT HAMMERER, PHYSICS INSTRUCTOR Unavailable Dayo Chaney MD Unavailable Juanita Hauser RN Unavailable Unavaila David Martinez MD Unavailable Emilia Tang MD Primary Care Provider [phone] Maurilio Farley MD Unavailable Physician, Candida Davis MD Unavailable Rebeka Trinidad MD Primary Care Provider + [phone] Dom Quiñonez MD Unavailable Rachelle Nava FLAT HAMMERER, EXTRACTION OPERATOR Unavailable + [phone] Irais Naylor FLAT HAMMERER, PHYSICS INSTRUCTOR Unavailable + [phone] Lorri Leo FLAT HAMMERER, [facility] Primary Care Provider + [phone] Rebeka Trinidad MD Primary Care Provider [phone] Lorri Leo FLAT HAMMERER, [facility] Primary Care Provider [phone] Sharri Gaspar MD Unavailable Tani Biggs Primary Care Provider + [phone] Amber Aldrich FLAT HAMMERER, [facility] Unavailable Reason for Visit * Reason Comments Medication Refill Encounter Details Date Type Department Care Team (Late st Contact Info) Description 06/15/2020 Refill [facility] - Primary Care - [place] [address] [place] [address] Jackeline Dimas FLAT HAMMERER, [facility] [address] [place] [address] Medication Refill Social History Tobacco [...] 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 No / Unsure 06/15/2020 6:45 PM CDT documented as of this encounter Functional Status * Question Answer Date of Assessment Author Best Eye Response 4-->(E4) spontaneous 06/15/2020 7:30 PM CDBreanna Ortega RN Best Verbal Response 5-->(V5) oriented 06/15/2020 7:30 PM CDT Breanna Kelley RN Best Motor Response 6-->(M6) obeys commands 06/15/2020 7:30 PM SHAQT Breanna Kelley RN [place] Coma Scale Score 15 06/15/2020 7:30 PM CDT Breanna Kelley RN * Question Answer Date of Assessment Author (0-10) Pain Rating: Activity 8 06/15/2020 1 0:00 PM SHAQT Breanna Kelley RN (0-10) Pain Rating: Rest 8 06/15/2020 10:00 PM CDT Breanna Kelley RN * Question Answer Date of Assessment Author SpO2 98 06/15/2020 10:00 PM CDT Breanna Mariano ae, RN O2 Device None (Room air) 06/15/2020 6:48 PM CDT Gisell Agrawal RN * Fall Risk Indicators Answer Date of Assessment Author 3-->polypharmacy 06/15/2020 6:46 PM CDT Elvis Rader RN * Fall Risk Score Answer Date of Assessment Author 3 06/15/2020 6:46 PM CDT Deon Rader RN * Question Answer Date of Assessment Author BP 128/84 06/15/2020 10:00 PM CDT Breanna Mariano ae, RN Temp 98 06/15/2020 6:48 PM CDT Gisell Rader RN Pulse 93 06/15/2020 10:00 PM CDT Breanna Mariano ae, RN Resp 20 06/15/2020 10:00 PM CDT Breanna Mariano ae, RN documented as of this encounter Mental Status * Question Answer Entry Date Author Best Eye Response 4-->(E4) spontaneous 7:30 PM Breanna Bueno RN Best Verbal Response 5-->(V5) oriented 7:30 PM Breanna Bueno RN Best Motor Response 6-->(M6) obeys commands 10/2020 7:30 PM CDBreanna Ortega RN [place] Com[place] Scale Score 15 06/15/2020 7:30 PM CDT Breanna Kelley RN * Question Answer Entry Date Author (0-10) Pain Rating: Activity 8 06/15/2020 1 0:00 PM SHAQT Breanna Kelley RN (0-10) Pain Rating: Rest 8 06/15/2020 10:00 PM CDT Breanna Kelley RN * Question Answer Entry Date Author SpO2 98 06/15/2020 10:00 PM CDT Breanna Mariano ae, RN O2 Device None (Room air) 06/15/2020 6:48 PM CDT Gisell Agrawal RN * Fall Risk Indicators Answer Entry Date Author 3-->polypharmacy 06/15/2020 6:46 PM CDT Elvis Rader RN * Fall Risk Score Answer Entry Date Author 3 06/15/2020 6:46 PM CDT Deon Rader RN * Question Answer Entry Date Author BP 128/84 06/15/2020 10:00 PM CDT Breanna Mariano ae, RN Temp 98 06/15/2020 6:48 PM CDT Gisell Rader RN Pulse 93 06/15/2020 10:00 PM CDT Breanna Mariano ae, RN documented in this encounter Plan of Treatment Upcoming Encounters Date Type Department Care Team (Late st Contact Info) Description 02/21/2025 1:00 PM NET APPLICATIONS DEVELOPER Telemedicine [facility] [address] [place] [phone] 02/21/2025 3:45 PM NET APPLICATIONS DEVELOPER Office Visit [facility] - Endocrinology - [place] [address] [place] [phone] David Salmon MD [address] [phone] 02/24/2025 3:30 PM NET APPLICATIONS DEVELOPER Telemedicine [facility] [address] [place] [phone] Alize Acosta, FLAT HAMMERER, PHYSICS INSTRUCTOR [address] [place] [address] 03/04/2025 3:10 PM NET APPLICATIONS DEVELOPER Lab [facility] Primary Care - [place] [address] [place] [phone] 03/07/2025 2:15 PM NET APPLICATIONS DEVELOPER Office Visit [facility] Primary [facility] - [place] [address] [place] [phone] Tani Biggs, [facility] [address] [place] [phone] 03/17/2025 1:30 PM NET APPLICATIONS DEVELOPER Lab [facility] [address] [place] [phone] Melony Asif Stacey, [facility] [address] [place] [address] Discharge Disposition: Discharged to home or Selfcare 03/25/2025 1:20 PM NET APPLICATIONS DEVELOPER Office Visit [facility] [address] [place] [phone] Melony Asif Stacey, [facility] [address] [place] [address] Discharge Disposition: Discharged to home or Selfcare 04/25/2025 2:00 PM NET APPLICATIONS DEVELOPER Office Visit [facility] - Cardiology - [place] [address] [place] [phone] Laisha Griffin DO [address] [address] 07/18/2025 1:00 PM CDT Office Visit [facility] - Pulmonology & Sleep Medicine - [place] [address] [place] [phone] Dom Quiñonez MD [address] [place] [address] documented as of this encounter Visit Diagnoses Not on filedocumented in this encounter Additional Health Concerns Infection Onset Date Last Indicated Resolved Time COVID - 19 01/08/2021 01/08/2021 01/28/2021 12:1 6 AM NET APPLICATIONS DEVELOPER COVID - 19 03/12/2021 03/12/2021 04/01/2021 12:1 6 AM NET APPLICATIONS DEVELOPER COVID - 19 12/15/2021 12/15/2021 12/15/2021 7:26 PM CDT COVID - 19 Confirmed 12/15/2021 12/15/2021 022 12:16 AM CDT COVID - 19 04/18/2024 04/18/2024 04/18/2024 10:4 7 PM NET APPLICATIONS DEVELOPER Respiratory Rule-Out 05/06/2024 05/06/2024 025 9:20 AM NET APPLICATIONS DEVELOPER COVID - 19 05/06/2024 05/06/2024 05/06/2024 9:19 AM NET APPLICATIONS DEVELOPER Assessment Noted Time PHQ-9 Depression Total Score: 0 09/01/19 20 11:58 AM CDT documented as of this encounter Care Teams Washing Machine Operator Relationship Specialty Start Date End Date Jackeline Dimas APRN, PHYSICS INSTRUCTOR [address] [place] [address] PCP - General Advanced Practice Nurse 07/31/17 Emilia Tang MD [address] [place] [address] PCP - General Family Medicine 06/07/22 03/25/23 Rebeka Trinidad MD [address] [place] [address] PCP - General Family Medicine 03/26/23 03/29/24 Lorri Leo APRN, PHYSICS INSTRUCTOR [address] [place] [address] PCP - General Certified Nurse Practitioner 03/30/24 04/20/24 Rebeka Trinidad MD [address] [place] [address] PCP - General Family Medicine 04/21/24 04/21/24 Lorri Leo APRN, PHYSICS INSTRUCTOR [address] [place] [address] PCP - General Certified Nurse Practitioner 04/22/24 05/30/24 Tani Biggs PAC [address] [place] [phone] PCP - General Physician Insurance Legal Assistant 05/31/24 Fiona Martinez LSW [place] Telecommunications Professional 03/01/21 08/23/21 Phil Jacobo MD [address] [place] [address] Consulting Physician Neurology 03/07/21 Rajiv Mccormack, ENGINEERING GEOLOGIST [address] [place] [address] Nurse Practitioner Gastroenterology 03/07/21 Renita Quezada, [place] Telecommunications Professional 05/09/21 08/23/21 Alize Acosta APRN, PHYSICS INSTRUCTOR [address] [address] [facility] ANIMAL RESEARCHER Advanced Practice Nurse 08/30/21 Dayo Chaney MD [address] [place] [address] Hand Cementer Cardiovascular Disease - Cardiology 09/20/21 02/12/24 Juanita Mercado, RN [place] Registered Nurse Cardiology 12/24/21 02/12/24 David Slamon MD [address] [phone] Consulting Physician Endocrinology 01/15/22 Maurilio Farley MD #[address] [address] Consulting Physician Colon and Rectal Surgery 09/20/22 PhysicianCandida MD [address] [place] [address] Family Medicine 01/25/22 03/18/23 Dom Quiñonez MD [address] [place] [phone] Consulting Physician Pulmonary Disease 11/19/21 Rachelle Nava, FLAT HAMMERER, EXTRACTION OPERATOR [address] [place] [address] Nurse Practitioner Advanced Practice Nurse 07/19/22 Irais Naylor, FLAT HAMMERER, PHYSICS INSTRUCTOR [address] [facility] [address] [place] [address] Nurse Practitioner Cardiology 06/27/23 07/29/24 Sharri Gaspar MD [address] [facility] [address] [place] [address] Consulting Physician Cardiology 04/26/24 Amber Aldrich APRN, PHYSICS INSTRUCTOR [address] [place] [address] Nurse Practitioner Cardiology 07/30/24 documented as of this encounter
--- OUTSIDE RECORDS SUMMARY | 2025-02-04 11:12 | XMS_ITS | Encounter Summary ---
Author Organization [facility] Address [address] [place] [address] Phone Care Team Providers Care Toter Name Role Phone Phil Jacobo MD Unavailable [phone] Rajiv Mccormack MATERIAL LIAISON Unavailable Unavailable Alize Acosta EVENTS AND PROMOTIONS ASSISTANT, ACQUISITION LEAD Unavailable Dayo Chaney MD Unavailable Juanita Hauser RN Unavailable Unavaila David Martinez MD Unavailable Emilia Tang MD Primary Care Provider [phone] Maurilio Farley MD Unavailable PhysicianCandida MD Unavailable Rebeka Trinidad MD Primary Care Provider + [phone] Dom Quiñonez MD Unavailable Rachelle Nava EVENTS AND PROMOTIONS ASSISTANT, CREDIT SPECIALIST Unavailable + [phone] Irais Naylor EVENTS AND PROMOTIONS ASSISTANT, ACQUISITION LEAD Unavailable + [phone] Lorri Leo EVENTS AND PROMOTIONS ASSISTANT, ACQUISITION LEAD Primary Care Provider + [phone] Rebeka Trinidad MD Primary Care Provider [phone] AhmetAngélicamando Littlejohn EVENTS AND PROMOTIONS ASSISTANT, ACQUISITION LEAD Primary Care Provider +[phone] Sharri Gaspar MD Unavailable Tain Biggs PAC Primary Care Provider + [phone] Amber Aldriche EVENTS AND PROMOTIONS ASSISTANT, ACQUISITION LEAD Unavailable Reason for Visit * Reason Comments Medication Refill Encounter Details Date Type Department Care Team (Late st Contact Info) Description 09/04/2022 Refill [facility] - [facility]ocrinology - [facility] [address] [place] [address] David Salmon MD #[address] [address] Medication Refill Social History Tobacco [...] 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 No / Unsure 09/06/2022 8:44 AM CDT documented as of this encounter Functional Status documented as of this encounter Mental Status * Question Answer Entry Date Author BP 100/62 09/06/2022 4:12 PM CDT Kenia Trejo RMA Temp 97.6 09/06/2022 4:12 PM CDT Kenia Trejo RMA Pulse 69 09/06/2022 4:12 PM CDT Kenia Trejo RMA SpO2 98 09/06/2022 4:12 PM CDT Kenia Trejo RMA documented in this encounter Miscellaneous Notes * Telephone Encounter - Yesi Leggett RN - 09/04/2022 9:28 AM CDT Requested Prescriptions Pending Prescriptions Disp Refills ??? TRUEplus 5-Bevel [place] 32G X 4 MM Misc [Pharmacy Med Name: TRUEPLUS 5- BEVEL PEN NEEDLE 21RM5HA] 100 Each 1 Sig: USE DAILY DIRECTED. Next appt: 10/31/2022 documented in this encounter Plan of Treatment Upcoming Encounters Date Type Department Care Team (Late st Contact Info) Description 02/21/2025 1:00 PM SERVICE PORTER Telemedicine [facility] [address] [place] [address] 02/21/2025 3:45 PM SERVICE PORTER Office Visit [facility] - Endocrinology - [facility] [address] [place] [address] David Salmon MD #[address] [address] 02/24/2025 3:30 PM SERVICE PORTER Telemedicine [facility] [address] [place] [address] Alize Acosta APRN, ACQUISITION LEAD [address] [place] [address] 03/04/2025 3:10 PM SERVICE PORTER [facility] - [place] [facility] [place] [address] 03/07/2025 2:15 PM SERVICE PORTER [facility] [place] [address] [place] [address] Tani Biggs, ESTRELLITA [address] [place] [address] 03/17/2025 1:30 PM SERVICE PORTER [facility] [address] [place] [address] Melony Asif, PAC [address] [place] [address] Discharge Disposition: Discharged to home or Selfcare 03/25/2025 1:20 PM SERVICE PORTER [facility] [address] [place] [address] Melony Asif, PAC [address] [place] [address] Discharge Disposition: Discharged to home or Selfcare 04/25/2025 2:00 PM SERVICE PORTER Office Visit [facility] - Cardiology - [facility] [address] [place] [address] Laisha Griffin DO [address] [address] 07/18/2025 1:00 PM CDT Office Visit [facility] - Pulmonology & Sleep Medicine [facility] #[address] [place] [address] Dom Quiñonez MD [address] [place] [address] documented as of this encounter Goals Goal [...] diet Depression Depression Improving(0 03/15/2022 2:27 PM SERVICE PORTER) No Breanne Saldana LCSW Note: Goal/Objective: Decrease [...] - 04/18/2024 04/18/2024 04/18/2024 10:4 7 PM SERVICE PORTER Respiratory Rule-Out 05/06/2024 05/06/2024 025 9:20 AM SERVICE PORTER COVID - 05/06/2024 05/06/2024 05/06/2024 9:19 AM SERVICE PORTER Assessment Noted Time PHQ-9 Depression Total Score: 24 022 3:31 PM SERVICE PORTER documented as of this encounter Care Teams Toter Relationship Specialty Start Date End Date Emilia Tang MD [address] [place] [address] PCP - General Family Medicine 06/07/22 03/25/23 Rebeka Trinidad MD [address] [place] [address] PCP - General Family Medicine 03/26/23 03/29/24 Lorri Leo APRN, ACQUISITION LEAD [address] [place] [address] PCP - General Certified Nurse Practitioner 03/30/24 04/20/24 Rebeka Trinidad MD [address] [place] [place], [place] [address] PCP - General Family Medicine 04/21/24 04/21/24 Lorri Leo, EVENTS AND PROMOTIONS ASSISTANT, ACQUISITION LEAD [address] [place] [address] PCP - General Certified Nurse Practitioner 04/22/24 05/30/24 Tani Biggs, PAC [address] [place] [address] PCP - General Physician Debarker Operator 05/31/24 Phil Jacobo MD #[address] [place] [phone] Consulting Physician Neurology 03/07/21 Rajiv Mccormack, MATERIAL LIAISON [address] [place] [address] Nurse Practitioner Gastroenterology 03/07/21 Alize Acosta, EVENTS AND PROMOTIONS ASSISTANT, ACQUISITION LEAD [address] [place] [address] Virtual Advanced Care (VAC) GRAVITY PROSPECTING OPERATOR HELPER Advanced Practice Nurse 08/30/21 Dayo Chaney MD [address] [place] [address] Psychology Physician Cardiovascular Disease - Cardiology 09/20/21 02/12/24 Juanita Mercado, [place] Registered Nurse Cardiology 12/24/21 02/12/24 David Salmon MD #[address] [phone] Consulting Physician Endocrinology 01/15/22 Maurilio Farley MD #[address] [address] Consulting Physician Colon and Rectal Surgery 09/20/22 PhysicianCandida MD [address] [place] [address] Family Medicine 01/25/22 03/18/23 Dom Quiñonez MD #[address] [place] [address] Consulting Physician Pulmonary Disease 11/19/21 Rachelle Nava APRN, CREDIT SPECIALIST #[address] [place] [address] Nurse Practitioner Advanced Practice Nurse 07/19/22 Irais Naylor, EVENTS AND PROMOTIONS ASSISTANT, ACQUISITION LEAD #[address] [address] Nurse Practitioner Cardiology 06/27/23 07/29/24 Sharri Gaspar MD [address] [address] Consulting Physician Cardiology 04/26/24 Amber Aldrich APRN, ACQUISITION LEAD [address] [place] [address] Nurse Practitioner Cardiology 07/30/24 documented as of this encounter
--- OUTSIDE RECORDS SUMMARY | 2025-02-04 11:12 | XMS_ITS | Encounter Summary ---
Author Organization [facility] Address [address] [place] [address] Phone Care Team Providers Care Hydrocrane Operator Name Role Phone Jackeline Dimas PROVIDER RELATIONS MANAGER, SYSTEMS SOFTWARE MANAGER Primary Care Provider Fiona Martinez AUCTIONEER [employer]BAC[employer] Unavailable Unavailab Phil Ellis MD Unavailable [phone] Rajiv Mccormack NP Unavailable Unavailable Renita Quezada RN Unavailable Unavailable Alize Acosta PROVIDER RELATIONS MANAGER, SYSTEMS SOFTWARE MANAGER Unavailable +[phone] Dayo Chaney MD Unavailable Juanita Hauser RN Unavailable Unavaila David Martinez MD Unavailable Emilia Tang MD Primary Care Provider [phone] Maurilio Farley MD Unavailable Physician, Candida Davis MD Unavailable Rebeka Trinidad MD Primary Care Provider + [phone] Dom Quiñonez MD Unavailable Rachelle Nava PROVIDER RELATIONS MANAGER, MEDICARE SALES REPRESENTATIVE Unavailable + [phone] Irais Naylor PROVIDER RELATIONS MANAGER, SYSTEMS SOFTWARE MANAGER Unavailable + [phone] Lorri Leo PROVIDER RELATIONS MANAGER, SYSTEMS SOFTWARE MANAGER Primary Care Provider + [phone] Rebeka Trinidad MD Primary Care Provider + [phone] Lorri Leo PROVIDER RELATIONS MANAGER, [facility] Primary Care Provider [phone] Sharri Gaspar MD Unavailable Tani Biggs Primary Care Provider + [phone] Yolie Aldrichareekaterina Farias PROVIDER RELATIONS MANAGER, [facility] Unavailable Reason for Visit * Reason Comments Medication Refill Encounter Details Date Type Department Care Team (Late Contact Info) Description 07/09/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 No / Unsure 06/19/2020 1:57 PM CDT documented as of this encounter Plan of Treatment Upcoming Encounters Date Type Department Care Team (Late Contact Info) Description 02/21/2025 1:00 PM RN PROCEDURE Telemedicine [facility] [address] [place] [address] 02/21/2025 3:45 PM RN PROCEDURE Office Visit [facility] - Endocrinology - [place] [address] [place] [address] David Salmon MD [address] [phone] 02/24/2025 3:30 PM RN PROCEDURE Telemedicine [facility] [address] [place] [address] Alize Acosta, PROVIDER RELATIONS MANAGER, SYSTEMS SOFTWARE MANAGER [address] [place] [address] 03/04/2025 3:10 PM RN [facility] [place] [address] [place] [address] 03/07/2025 2:15 PM RN PROCEDURE Office Visit [facility] - Primary Care - [place] [address] [place] [address] Tani Biggs, PAC [address] [place] [address] 03/17/2025 1:30 PM RN PROC[facility] [address] [place] [address] Melony Asif, PAC [address] [place] [address] Discharge Disposition: Discharged to home or Selfcare 03/25/2025 1:20 PM RN PROCEDURE [facility] [address] [place] [address] Melony Asif, PAC [address] [place] [address] Discharge Disposition: Discharged to home or Selfcare 04/25/2025 2:00 PM RN PROCEDURE Office Visit [facility] - Cardiology - [place] #[address] [place] [address] Laisha Griffin, DO [address] [address] 07/18/2025 1:00 PM CDT Office Visit [facility] - Pulmonology & Sleep Medicine [facility] #[address] [place] [address] Dom Quiñonez MD [address] [place] [address] documented as of this encounter Visit Diagnoses Not on filedocumented in this encounter Additional Health Concerns Infection Onset Date Last Indicated Resolved Time COVID - 19 01/08/2021 01/08/2021 01/28/2021 12:1 6 AM RN PROCEDURE COVID - 19 03/12/2021 03/12/2021 04/01/2021 12:1 6 AM RN PROCEDURE COVID - 19 12/15/2021 12/15/2021 12/15/2021 7:26 PM CDT COVID - 19 Confirmed 12/15/2021 12/15/2021 022 12:16 AM CDT COVID - 19 04/18/2024 04/18/2024 04/18/2024 10:4 7 PM RN PROCEDURE Respiratory Rule-Out 05/06/2024 05/06/2024 025 9:20 AM RN PROCEDURE COVID - 19 05/06/2024 05/06/2024 05/06/2024 9:19 AM RN PROCEDURE Assessment Noted Time PHQ-9 Depression Total Score: 0 09/01/19 20 11:58 AM CDT documented as of this encounter Care Teams Hydrocrane Operator Relationship Specialty Start Date End Date Jackeline Dimas, PROVIDER RELATIONS MANAGER, SYSTEMS SOFTWARE MANAGER [address] [place] [address] PCP - General Advanced Practice Nurse 07/31/17 Emilia Tang MD [address] [place] [address] PCP - General Family Medicine 06/07/22 03/25/23 Rebeka Trinidad MD [address] [place] [address] PCP - General Family Medicine 03/26/23 03/29/24 Lorri Leo APRN, SYSTEMS SOFTWARE MANAGER [address] [place] [address] PCP - General Certified Nurse Practitioner 03/30/24 04/20/24 Rebeka Trinidad MD [address] [place] [address] PCP - General Family Medicine 04/21/24 04/21/24 Lorri Leo APRN, SYSTEMS SOFTWARE MANAGER [address] [place] [address] PCP - General Certified Nurse Practitioner 04/22/24 05/30/24 Tani Biggs, PAC [address] [place] [address] PCP - General Physician Claim Processing Specialist 05/31/24 Fiona Martinez LSW [place] Nutritional Chemist 03/01/21 08/23/21 Phil Jacobo MD #[address] [place] [address] Consulting Physician Neurology 03/07/21 Rajiv Mccormack, SALES DESIGNER [address] [place] [address] Nurse Practitioner Gastroenterology 03/07/21 Renita Quezada RN [place] Nutritional Chemist 05/09/21 08/23/21 Alize Acosta, PROVIDER RELATIONS MANAGER, SYSTEMS SOFTWARE MANAGER [address] [place] [address] Virtual Advanced Care (VAC) BLUE LINE OPERATOR Advanced Practice Nurse 08/30/21 Dayo Chaney MD [address] [place] [address] Prefitter Doors Cardiovascular Disease - Cardiology 09/20/21 02/12/24 Juanita Mercado RN [place] Registered Nurse Cardiology 12/24/21 02/12/24 David Salmon MD #[address] [address] Consulting Physician Endocrinology 01/15/22 Maurilio Farley MD #[address] [address] Consulting Physician Colon and Rectal Surgery 09/20/22 PhysicianCandida MD [address] [place], [place] [address] Family Medicine 01/25/22 03/18/23 Dom Quiñonez MD #[address] [place] [address] Consulting Physician Pulmonary Disease 11/19/21 Rachelle Nava APRN, MEDICARE SALES REPRESENTATIVE #2 [place] [address] Nurse Practitioner Advanced Practice Nurse 07/19/22 Irais Naylor APRN, SYSTEMS SOFTWARE MANAGER #2 [facility] [address] [place] [address] Nurse Practitioner Cardiology 06/27/23 07/29/24 Sharri Gaspar MD [address], [address] [place] [address] Consulting Physician Cardiology 04/26/24 Amber Aldrich APRN, SYSTEMS SOFTWARE MANAGER #[address] [place] [address] Nurse Practitioner Cardiology 07/30/24 documented as of this encounter
--- OUTSIDE RECORDS SUMMARY | 2025-02-04 11:12 | XMS_ITS | Encounter Summary ---
Author Organization [facility] Address [address] [place] [address] Phone Care Team Providers Care Real Estate Director Name Role Phone Jackeline Dimas GATE AGENT, DENTAL FINANCIAL COORDINATOR Primary Care Provider Fiona Martinez MICROFILM DUPLICATING UNIT SUPERVISOR Unavailable Unavailab Phil Ellis MD Unavailable [phone] Rajiv Mccormack NP Unavailable Unavailable Renita Quezada RN Unavailable Unavailable Alize Acosta GATE AGENT, DENTAL FINANCIAL COORDINATOR Unavailable Dayo Chaney MD Unavailable Juanita Hauser RN Unavailable Unavaila David Martinez MD Unavailable Emilia Tang MD Primary Care Provider [phone] Maurilio Farley MD Unavailable Physician, Candida Davis MD Unavailable Rebeka Trinidad MD Primary Care Provider + [phone] Dom Quiñonez MD Unavailable Rachelle Nava GATE AGENT, PRINTING PRESS OPERATOR APPRENTICE Unavailable + [phone] Irais Naylor GATE AGENT, DENTAL FINANCIAL COORDINATOR Unavailable + [phone] Lorri Leo GATE AGENT, [facility] Primary Care Provider + [phone] Rebeka Trinidad MD Primary Care Provider + [phone] Lorri Leo GATE AGENT, [facility] Primary Care Provider [phone] Sharri Gaspar MD Unavailable Tani Biggs Primary Care Provider + [phone] Amber Aldrich GATE AGENT, [facility] Unavailable Reason for Visit * Reason Comments Medication Refill Encounter Details Date Type Department Care Team (Late st Contact Info) Description 02/08/2020 Refill 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 No / Unsure 02/08/2020 7:30 AM NUTRITION MANAGER documented as of this encounter Functional Status documented as of this encounter Mental Status * Question Answer Entry Date Author BP 132/96 02/08/2020 7:41 AM NUTRITION MANAGER Margarita Christensen, RMA Temp 98.4 02/08/2020 7:41 AM NUTRITION MANAGER Margarita Christensen, RMA Pulse 94 02/08/2020 7:41 AM Margarita Dong, RMA SpO2 97 02/08/2020 7:41 AM Margarita Dong RMA documented in this encounter Plan of Treatment Upcoming Encounters Date Type Department Care Team (Late st Contact Info) Description 02/21/2025 1:00 PM NUTRITION MANAGER Telemedicine [facility] [address] [place] [address] 02/21/2025 3:45 PM NUTRITION MANAGER Office Visit [facility] #[address] [place] [address] David Salmon MD #[address] [address] 02/24/2025 3:30 PM NUTRITION MANAGER Telemedicine [facility] [address] [place] [address] Alize Acosta, GATE AGENT, DENTAL FINANCIAL COORDINATOR [address] [place] [address] 03/04/2025 3:10 PM NUTRITION MANAGER Lab [facility] - [place] [address] [place] [address] 03/07/2025 2:15 PM NUTRITION MANAGER Office Visit [facility] Primary Care - [place] [address] [place] [address] Tani Biggs PAC [address] [place] [address] 03/17/2025 1:30 PM NUTRITION MANAGER [facility] [address] [place] [phone] Melony Asif August, PAC [address] [place] [address] Discharge Disposition: Discharged to home or Selfcare 03/25/2025 1:20 PM NUTRITION MANAGER [facility] [address] [place] [address] Melony Asif August, PAC [address] [place] [address] Discharge Disposition: Discharged to home or Selfcare 04/25/2025 2:00 PM NUTRITION MANAGER Office Visit [facility] - Cardiology - [place] #[address] [place] [address] Laisha Griffin, DO [address] [address] 07/18/2025 1:00 PM CDT Office Visit [facility] - Pulmonology & Sleep Medicine [facility] #2 [place] [address] Dom Quiñonez MD #[address] [place] [address] documented as of this encounter Visit Diagnoses Not on filedocumented in this encounter Additional Health Concerns Infection Onset Date Last Indicated Resolved Time COVID - 19 01/08/2021 01/08/2021 01/28/2021 12:1 6 AM NUTRITION MANAGER COVID - 19 03/12/2021 03/12/2021 04/01/2021 12:1 6 AM NUTRITION MANAGER COVID - 19 12/15/2021 12/15/2021 12/15/2021 7:26 PM CDT COVID - 19 Confirmed 12/15/2021 12/15/2021 022 12:16 AM CDT COVID - 19 04/18/2024 04/18/2024 04/18/2024 10:4 7 PM NUTRITION MANAGER Respiratory Rule-Out 05/06/2024 05/06/2024 025 9:20 AM NUTRITION MANAGER COVID - 19 05/06/2024 05/06/2024 05/06/2024 9:19 AM NUTRITION MANAGER Assessment Noted Time PHQ-9 Depression Total Score: 0 09/01/19 20 11:58 AM CDT documented as of this encounter Care Teams Real Estate Director Relationship Specialty Start Date End Date Jackeline Dimas APRN, DENTAL FINANCIAL COORDINATOR [address] [place] [address] PCP - General Advanced Practice Nurse 07/31/17 Emilia Tang MD [address] [place] [address] PCP - General Family Medicine 06/07/22 03/25/23 Rebeka Trinidad MD [address] [place] [address] PCP - General Family Medicine 03/26/23 03/29/24 Lorri Leo APRN, DENTAL FINANCIAL COORDINATOR [address] [place] [address] PCP - General Certified Nurse Practitioner 03/30/24 04/20/24 Rebeka Trinidad MD [address] [place] [address] PCP - General Family Medicine 04/21/24 04/21/24 Lorri Leo APRN, DENTAL FINANCIAL COORDINATOR [address] [place] [address] PCP - General Certified Nurse Practitioner 04/22/24 05/30/24 Tani Biggs, PAC [address] [place] [address] PCP - General Physician Typesetting Supervisor 05/31/24 Fiona Martinez LSW [place] V/[place] Signal Officer 03/01/21 08/23/21 Phil Jacobo MD #[address] [place] [address] Consulting Physician Neurology 03/07/21 Rajiv Mccormack, KELI [address] [place] [address] Nurse Practitioner Gastroenterology 03/07/21 Renita Quezada RN [place] V/Stol [place] Signal Officer 05/09/21 08/23/21 Alize Acosta APRN, DENTAL FINANCIAL COORDINATOR [address] [place] [address] Virtual Advanced Care (VAC) MACHINE MARKER Advanced Practice Nurse 08/30/21 Dayo Chaney MD [address] [place] [address] [employer] Teacher Cardiovascular Disease - Cardiology 09/20/21 02/12/24 Juanita Mercado, [place] Registered Nurse Cardiology 12/24/21 02/12/24 David Salmon MD #[address] [address] Consulting Physician Endocrinology 01/15/22 Maurilio Farley MD #[address] [address] Consulting Physician Colon and Rectal Surgery 09/20/22 PhysicianCandida MD [address] [place] [address] Family Medicine 01/25/22 03/18/23 Dom Quiñonez MD #[address] [place] [address] Consulting Physician Pulmonary Disease 11/19/21 Rachelle Nava, GATE AGENT, PRINTING PRESS OPERATOR APPRENTICE #[address] [place] [address] Nurse Practitioner Advanced Practice Nurse 07/19/22 Irais Naylor, GATE AGENT, DENTAL FINANCIAL COORDINATOR #[address] [address] Nurse Practitioner Cardiology 06/27/23 07/29/24 Sharri Gaspar MD 2 [facility] [address] [address] Consulting Physician Cardiology 04/26/24 Amber Aldrich APRN, DENTAL FINANCIAL COORDINATOR #[address] [place] [address] Nurse Practitioner Cardiology 07/30/24 documented as of this encounter
--- OUTSIDE RECORDS SUMMARY | 2025-02-04 11:12 | XMS_ITS | Encounter Summary ---
Author Organization [facility] Address [address] [place] [address] Phone Care Team Providers Care Cmm Operator Name Role Phone Phil Jacobo MD Unavailable [phone] Rajiv Mccormack IT APPLICATIONS ANALYST Unavailable Unavailable Alize Acosta ENVIRONMENTAL SCIENCE PROFESSOR, WOOD FLOORING SPECIALIST Unavailable David Salmon MD Unavailable Maurilio Farley MD Unavailable Rebeka Trinidad MD Primary Care Provider + [phone] Dom Quiñonez MD Unavailable Rachelle Nava ENVIRONMENTAL SCIENCE PROFESSOR, PROGRAM MANUFACTURING LEADER Unavailable + [phone] Irais Naylor ENVIRONMENTAL SCIENCE PROFESSOR, WOOD FLOORING SPECIALIST Unavailable + [phone] Lorri Leo APRN, WOOD FLOORING SPECIALIST Primary Care Provider + [phone] Rebeka Trinidad MD Primary Care Provider + [phone] Lorri Leo ENVIRONMENTAL SCIENCE PROFESSOR, WOOD FLOORING SPECIALIST Primary Care Provider + [phone] Sharri Gaspar MD Unavailable Tani Biggs PAC Primary Care Provider Amber Aldrich RUSSELL, WOOD FLOORING SPECIALIST Unavailable Encounter Details Date Type Department Care Team (Late st Contact Info) Description 02/25/2024 Telephone [facility] [address] [place] [address] Rebeka Trinidad MD [address] [place] [address] Social History Tobacco Use Types Packs/Day Years Used Date Smoking Tobacco: Every Day Cigarettes 1 37.1 Started: 1984; Last attempted to quit: 04/12/2021 Smokeless Tobacco: Never Alcohol Use Standard Drinks/Week Comments Not Currently 0 (1 standard drink = 0.6 oz pur e alcohol) Last drink in 2020 [facility] Utilities Answer Date Recorded In the past 12 months has ARPU, gas, oil, or water DTT threatened to shut off services in your home? No 09/08/2023 Social Connection and Isolation Panel Answer Date Recorded In a typical week, how many times do you talk on the phone with family, friends, or neighbors? Once a week 09/08/19 How often do you get togethe r with friends or relatives? Never 09/08/2023 How often do you attend [facility] ch or latter-day services? 1 to 4 times per year 09/08/2023 Do you belong to any clubs o r organizations such as worship groups, unions, fraternal or athletic groups, or [...] Total Score - Questions 1-9 17 01/08 [facility] - Occupational [...] any time in the past 12 m 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 Not on file Not on file documented as of this encounter Plan of Treatment Upcoming Encounters Date Type Department Care Team (Late st Contact Info) Description 02/21/2025 1:00 PM CABLE TELEVISION LINE TECHNICIAN Telemedicine [facility] [address] [place] [address] 02/21/2025 3:45 PM CABLE TELEVISION LINE TECHNICIAN Office [facility] - Endocrinology - [place] [address] [place] [id number] David Salmon MD #[address] [address] 02/24/2025 3:30 PM CABLE TELEVISION LINE TECHNICIAN Telemedicine [facility] [address] [place] [address] Alize Acosta, ENVIRONMENTAL SCIENCE PROFESSOR, WOOD FLOORING SPECIALIST [address] [place] [address] 03/04/2025 3:10 PM CABLE TELEVISION LINE TECHNICIAN Lab [facility] - Primary Care - [place] [address] [place] [address] 03/07/2025 2:15 PM CABLE TELEVISION LINE TECHNICIAN Office Visit [facility] - Primary Care - [place] [address] [place] [address] Tani Biggs PAC [address] [place] [id number] 03/17/2025 1:30 PM CABLE TELEVISION LINE TECHNICIAN Lab [facility] Oncology Services [address] [place] [address] AsifMelony August, PAC [address] [place] [address] Discharge Disposition: Discharged to home or Selfcare 03/25/2025 1:20 PM CABLE TELEVISION LINE TECHNICIAN Office Visit [facility] Oncology Services [address] [place] [address] Amberson Melony August, PAC [address] [place] [address] Discharge Disposition: Discharged to home or Selfcare 04/25/2025 2:00 PM CABLE TELEVISION LINE TECHNICIAN Office Visit [facility] - Cardiology - [place] [address] [place] [address] Laisha Griffin, DO [address] [address] 07/18/2025 1:00 PM CDT Office Visit [facility] - Pulmonology & Sleep Medicine [facility] #[address] [place] [address] Dom Quiñonez MD [address] [place] [address] documented as of this encounter Goals Goal Patient Goal Type Associated Problems Recent Progress Patient-Stated? Author ACTIVITY Activity No change(08/08 2:42 PM CDT) Yes Maritza Vanegas, RN Note: Bonny will walk five days a week. Goal Reviewed with: Bonny Readiness to change: Department associated with goal: [facility] Steps to achieve goal: Walking 5 days a week I want to be able to be around people and feel less depressed. Behavioral Health Worsening(0 09/22/2023 3:12 PM CDT) Yes Hilda Tinajero [facility] Note: Goal/Objective: Decrease symptoms of depression and anxiety. Anticipated Time Frame for Goal Completion: 3 months Goal Reviewed with: patient Readiness to change: Thinking about making a change Department associated with goal: [facility] Steps to achieve [...] diet Depression Depression Improving(0 03/15/2022 2:27 PM CABLE TELEVISION LINE TECHNICIAN) No Breanne Saldana LCSW Note: Goal/Objective: [...] 04/18/2024 04/18/2024 04/18/2024 10:4 7 PM CABLE TELEVISION LINE TECHNICIAN Respiratory Rule-Out 05/06/2024 05/06/2024 025 9:20 AM CABLE TELEVISION LINE TECHNICIAN COVID - 05/06/2024 05/06/2024 05/06/2024 9:19 AM CABLE TELEVISION LINE TECHNICIAN Assessment Noted Time PHQ-9 Depression Total Score: 17 024 9:00 AM CABLE TELEVISION LINE TECHNICIAN documented as of this encounter Care Teams Cmm Operator Relationship Specialty Start Date End Date Rebeka Trinidad MD [address] [place] [address] PCP - General Family Medicine 03/26/23 03/29/24 Lorri Leo APRN, WOOD FLOORING SPECIALIST [address] [place] [address] PCP - General Certified Nurse Practitioner 03/30/24 04/20/24 Rebeka Trinidad MD [address] [place] [address] PCP - General Family Medicine 04/21/24 04/21/24 Lorri Leo APRN, WOOD FLOORING SPECIALIST [address] [place] [address] PCP - General Certified Nurse Practitioner 04/22/24 05/30/24 Tani Biggs PAC [address] [place] [address] PCP - General Physician Quilting Supervisor 05/31/24 Phil Jacobo MD [address] [place] [address] Consulting Physician Neurology 03/07/21 Rajiv Mccormack, IT APPLICATIONS ANALYST [address] [place] [address] Nurse Practitioner Gastroenterology 03/07/21 Alize Acosta APRN, WOOD FLOORING SPECIALIST [address] [place] [address] [facility] (VAC) HEMATOLOGY NURSE Advanced Practice Nurse 08/30/21 David Salmon MD #[address] [phone] Consulting Physician Endocrinology 01/15/22 Maurilio Farley MD #[address] [address] Consulting Physician Colon and Rectal Surgery 09/20/22 Dom Quiñonez MD #[address] [place] [address] Consulting Physician Pulmonary Disease 11/19/21 Rachelle Nava APRN, PROGRAM MANUFACTURING LEADER [address] [place] [address] Nurse Practitioner Advanced Practice Nurse 07/19/22 Irais Naylor APRN, WOOD FLOORING SPECIALIST #2 [facility] [address] [place] [address] Nurse Practitioner Cardiology 06/27/23 07/29/24 Sharri Gaspar MD 2 [facility] [address], [address] [place] [address] Consulting Physician Cardiology 04/26/24 Amber Aldrich APRN, WOOD FLOORING SPECIALIST [address] [place] [address] Nurse Practitioner Cardiology 07/30/24 documented as of this encounter
--- OUTSIDE RECORDS SUMMARY | 2025-02-04 11:12 | XMS_ITS | Encounter Summary ---
Author Organization [facility] Address [address] [place] [address] Phone Care Team Providers Care Elevator Dispatcher Name Role Phone Phil Jacobo MD Unavailable [phone] Rajiv Mccormack CONVEYOR LINE BATTERY CHARGER Unavailable Unavailable Alize Acosta AUDIO VISUAL ENGINEER, ASSOCIATE PRODUCT INTEGRITY ENGINEER Unavailable [phone] Dayo Chaney MD Unavailable Juanita Hauser RN Unavailable Unavaila David Martinez MD Unavailable Emilia Tang MD Primary Care Provider [phone] Maurilio Farley MD Unavailable PhysicianCandida MD Unavailable Rebeka Trinidad MD Primary Care Provider + [phone] Dom Quiñonez MD Unavailable Rachelle Nava AUDIO VISUAL ENGINEER, PROGRAM ADMIN Unavailable + [phone] Irais Naylor AUDIO VISUAL ENGINEER, ASSOCIATE PRODUCT INTEGRITY ENGINEER Unavailable + [phone] Lorri Leo AUDIO VISUAL ENGINEER, ASSOCIATE PRODUCT INTEGRITY ENGINEER Primary Care Provider + [phone] Rebeka Trinidad MD Primary Care Provider + [phone] AhmetAngélicamando Littlejohn AUDIO VISUAL ENGINEER, ASSOCIATE PRODUCT INTEGRITY ENGINEER Primary Care Provider + [phone] Sharri Gaspar MD Unavailable Tani Biggs PAC Primary Care Provider + [phone] Amber Aldrich AUDIO VISUAL ENGINEER, ASSOCIATE PRODUCT INTEGRITY ENGINEER Unavailable Reason for Visit * Reason Comments Medication Refill Encounter Details Date Type Department Care Team (Late st Contact Info) Description 12/01/2022 Refill [facility] - Primary Care - [place] [address] [place] [address] Emilia Tang MD [address] [place] [address] Medication Refill Social History Tobacco [...] 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 Not [...] st Contact Info) Description 02/21/2025 1:00 PM FOUNDRY OPERATOR Telemedicine [facility] [address] [place] [address] 02/21/2025 3:45 PM FOUNDRY OPERATOR Office Visit [facility] - Endocrinology - [place] [address] [place] [address] David Salmon MD #[address] [address] 02/24/2025 3:30 PM FOUNDRY OPERATOR Telemedicine [facility] [address] [place] [address] Alize Acosta, AUDIO VISUAL ENGINEER, ASSOCIATE PRODUCT INTEGRITY ENGINEER [address] [place] [address] 03/04/2025 3:10 PM FOUNDRY OPERATOR Lab [facility] Primary Care - [place] [address] [place] [address] 03/07/2025 2:15 PM FOUNDRY OPERATOR Office Visit [facility] Primary Care - [place] [address] [place] [address] Tani Biggs PAC [address] [place] [address] 03/17/2025 1:30 PM FOUNDRY OPERATOR [facility] [address] [place] [address] Melony Asif PAC [address] [place] [address] Discharge Disposition: Discharged to home or Selfcare 03/25/2025 1:20 PM FOUNDRY OPERATOR Office Visit [facility] Oncology Services [address] [place] [address] Melony Asif August, PAC [address] [place] [address] Discharge Disposition: Discharged to home or Selfcare 04/25/2025 2:00 PM FOUNDRY OPERATOR Office Visit [facility] - Cardiology - [place] [address] [place] [address] Laisha Griffin, DO [address] [address] 07/18/2025 1:00 PM CDT Office Visit [facility] - Pulmonology & Sleep Medicine [facility] #[address] [place] [address] Dom Quiñonez MD [address] [place] [address] documented as of this encounter Goals Goal [...] diet Depression Depression Improving(0 03/15/2022 2:27 PM FOUNDRY OPERATOR) No Breanne Saldana, MEDICAL ASSISTANT INTERNAL MEDICINE Note: Goal/Objective: Decrease symptoms of depression associated [...] 19 04/18/2024 04/18/2024 04/18/2024 10:4 7 PM FOUNDRY OPERATOR Respiratory Rule-Out 05/06/2024 05/06/2024 025 9:20 AM FOUNDRY OPERATOR COVID - 19 05/06/2024 05/06/2024 05/06/2024 9:19 AM FOUNDRY OPERATOR Assessment Noted Time PHQ-9 Depression Total Score: 18 023 9:24 AM CDT documented as of this encounter Care Teams Elevator Dispatcher Relationship Specialty Start Date End Date Emilia Tang MD [address] [place] [address] PCP - General Family Medicine 06/07/22 03/25/23 Rebeka Trinidad MD [address] [place] [address] PCP - General Family Medicine 03/26/23 03/29/24 Lorri Leo APRN, ASSOCIATE PRODUCT INTEGRITY ENGINEER [address] [place] [address] PCP - General Certified Nurse Practitioner 03/30/24 04/20/24 Rebeka Trinidad MD [address] [place] [address] PCP - General Family Medicine 04/21/24 04/21/24 Lorri Leo APRN, ASSOCIATE PRODUCT INTEGRITY ENGINEER [address] [place] [address] PCP - General Certified Nurse Practitioner 04/22/24 05/30/24 Tani Biggs PAC [address] [place] [address] PCP - General Physician Manufacturing Engineering Technologist 05/31/24 Phil Jacobo MD #[address] [place] [address] Consulting Physician Neurology 03/07/21 Rajiv Mccormack, KELI [address] [place] [address] Nurse Practitioner Gastroenterology 03/07/21 Alize Acosta, AUDIO VISUAL ENGINEER, ASSOCIATE PRODUCT INTEGRITY ENGINEER [address] [place] [address] Virtual Advanced Care (VAC) CHRONOMETER ASSEMBLER AND ADJUSTER Advanced Practice Nurse 08/30/21 Dayo Chaney MD [facility] [place] [address] Transport Medic Cardiovascular Disease - Cardiology 09/20/21 02/12/24 Juanita Mercado RN [place] Registered Nurse Cardiology 12/24/21 02/12/24 David Salmon MD #[address] [address] Consulting Physician Endocrinology 01/15/22 Maurilio Farley MD #[address] [address] Consulting Physician Colon and Rectal Surgery 09/20/22 Physician, Candida Davis MD [address] [place], [place] [address] Family Medicine 01/25/22 03/18/23 Dom Quiñonez MD #[address] [place] [address] Consulting Physician Pulmonary Disease 11/19/21 Rachelle Nava APRN, PROGRAM ADMIN [address] [place] [address] Nurse Practitioner Advanced Practice Nurse 07/19/22 Irais Naylor APRN, ASSOCIATE PRODUCT INTEGRITY ENGINEER #2 [facility] [address] [place] [address] Nurse Practitioner Cardiology 06/27/23 07/29/24 Sharri Gaspar MD 2 [facility] [address] [address] Consulting Physician Cardiology 04/26/24 Amber Aldrich APRN, ASSOCIATE PRODUCT INTEGRITY ENGINEER #[address] [place] [address] Nurse Practitioner Cardiology 07/30/24 documented as of this encounter
--- OUTSIDE RECORDS SUMMARY | 2025-02-04 11:12 | XMS_ITS | Encounter Summary ---
Author Organization [facility] Address [address] [place] [address] Phone Care Team Providers Care Stereo Plotter Operator Name Role Phone Phil Jacobo MD Unavailable [phone] Rajiv Mccormack COKE CRUSHER OPERATOR Unavailable Unavailable Alize Acosta AEROGRAPHER, WORDPRESS DEVELOPER Unavailable Dayo Chaney MD Unavailable Juanita Hauser RN Unavailable Unavaila David Martinez MD Unavailable Emilia Tang MD Primary Care Provider +[phone] Maurilio Farley MD Unavailable PhysicianCandida MD Unavailable Rebeka Trinidad MD Primary Care Provider + [phone] Dom Quiñonez MD Unavailable Rachelle Nava AEROGRAPHER, LOAN ADVISER Unavailable + [phone] Irais Naylor AEROGRAPHER, WORDPRESS DEVELOPER Unavailable + [phone] Lorri Leo AEROGRAPHER, WORDPRESS DEVELOPER Primary Care Provider + [phone] Rebeka Trinidad MD Primary Care Provider [phone] Lorri Leo AEROGRAPHER, WORDPRESS DEVELOPER Primary Care Provider + [phone] Sharri Gaspar MD Unavailable Tani Biggs PAC Primary Care Provider + [phone] DaeAmber lazaroe AEROGRAPHER, WORDPRESS DEVELOPER Unavailable Reason for Visit * Reason Comments Medication Refill Encounter Details Date Type Department Care Team (Late st Contact Info) Description 12/19/2022 Refill 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 [...] Dept 11/06/22 Office Visit Emilia Tang MD [facility] 10/10/22 Office Visit Emilia Tang MD [facility] 09/16/22 Office Visit Rachelle Nava APRN, [facility] 09/06/22 Office Visit Emilia Tang MD [facility] 07/19/22 Office Visit Rachelle Nava APRN, LOAN ADVISER [facility] Neurology [facility] 06/07/22 Office Visit Emilia Tang MD [facility] Showing recent visits within past 365 days and meeting all other requirements Future Appointments Date Type Provider Dept 02/06/23 Appointment Emilia Tang MD [facility] 03/19/23 Appointment Rachelle Nava APRN, [facility] Showing future appointments within next 90 days and meeting all other requirements documented in this encounter Plan of Treatment Upcoming Encounters Date Type Department Care Team (Late st Contact Info) Description 02/21/2025 1:00 PM ACTUARIAL DIRECTOR Telemedicine [facility] [address] [place] [address] 02/21/2025 3:45 PM ACTUARIAL DIRECTOR [facility] - Endocrinology - [place] [address] [place] [address] David Salmon MD #[address] [address] 02/24/2025 3:30 PM ACTUARIAL DIRECTOR Telemedicine [facility] [address] [place] [address] Alize Acosta, AEROGRAPHER, WORDPRESS DEVELOPER [address] [place] [address] 03/04/2025 3:10 PM ACTUARIAL DIRECTOR Lab [facility] Primary Care - [place] [address] [place] [address] 03/07/2025 2:15 PM ACTUARIAL DIRECTOR Office Visit [facility] Primary Care - [place] [address] [place] [address] Tani Biggs, PAC [address] [place] [address] 03/17/2025 1:30 PM ACTUARIAL DIRECTOR [facility] [address] [place] [address] Melony Asif, PAC [address] [place] [address] Discharge Disposition: Discharged to home or Selfcare 03/25/2025 1:20 PM ACTUARIAL DIRECTOR [facility] [address] [place] [address] Melony Asif, PAC [address] [place] [address] Discharge Disposition: Discharged to home or Selfcare 04/25/2025 2:00 PM ACTUARIAL DIRECTOR Office Visit [facility] Card[facility] #[address] [facility] [place] [address] Laisha Griffin, DO 2 [address] [address] 07/18/2025 1:00 PM CDT Office Visit [facility] Medical [facility] - Pulmonology & Sleep Medicine - [place] [address] [place] [address] Dom Quiñonez MD #[address] [place] [address] documented as of this encounter Goals Goal [...] diet Depression Depression Improving(0 03/15/2022 2:27 PM ACTUARIAL DIRECTOR) No Breanne Saldana LCSW Note: Goal/Objective: Decrease [...] 19 04/18/2024 04/18/2024 04/18/2024 10:4 7 PM ACTUARIAL DIRECTOR Respiratory Rule-Out 05/06/2024 05/06/2024 025 9:20 AM ACTUARIAL DIRECTOR COVID - 19 05/06/2024 05/06/2024 05/06/2024 9:19 AM ACTUARIAL DIRECTOR Assessment Noted Time PHQ-9 Depression Total Score: 18 023 9:24 AM CDT documented as of this encounter Care Teams Stereo Plotter Operator Relationship Specialty Start Date End Date Emilia Tang MD [address] [place] [address] PCP - General Family Medicine 06/07/22 03/25/23 Rebeka Trinidad MD [address] [place] [address] PCP - General Family Medicine 03/26/23 03/29/24 Lorri Leo APRN, WORDPRESS DEVELOPER [address] [place] [address] PCP - General Certified Nurse Practitioner 03/30/24 04/20/24 Rebeka Trinidad MD [address] [place] [address] PCP - General Family Medicine 04/21/24 04/21/24 Lorri Leo APRN, WORDPRESS DEVELOPER [address] [place] [address] PCP - General Certified Nurse Practitioner 04/22/24 05/30/24 Tani Biggs PAC [address] [place] [address] PCP - General Physician Plate Stacker 05/31/24 Phil Jacobo MD #[address] [place] [address] Consulting Physician Neurology 03/07/21 Rajiv Mccormack, KELI [address] [place] [address] Nurse Practitioner Gastroenterology 03/07/21 Alize Acosta APRN, WORDPRESS DEVELOPER [address] [facility] [place] [address] Virtual Advanced Care (VAC) CARBURIZING FURNACE OPERATOR Advanced Practice Nurse 08/30/21 Dayo Chaney MD [address] [place] [address] Yardage Caller Cardiovascular Disease - Cardiology 09/20/21 02/12/24 Juanita Mercado, [place] Registered Nurse Cardiology 12/24/21 02/12/24 David Salmon MD #[address] [address] Consulting Physician Endocrinology 01/15/22 Maurilio Farley MD #[address] [address] Consulting Physician Colon and Rectal Surgery 09/20/22 Physician, Candida Davis MD [address] [place] [address] Family Medicine 01/25/22 03/18/23 Dom Quiñonez MD #[address] [place] [address] Consulting Physician Pulmonary Disease 11/19/21 Rachelle Nava APRN, LOAN ADVISER #[address] [place] [address] Nurse Practitioner Advanced Practice Nurse 07/19/22 Irais Naylor APRN, WORDPRESS DEVELOPER #[address] [address] Nurse Practitioner Cardiology 06/27/23 07/29/24 Sharri Gaspar MD 2 [facility] [address] [place] [address] Consulting Physician Cardiology 04/26/24 Amber Aldrich APRN, WORDPRESS DEVELOPER #[address] [place] [address] Nurse Practitioner Cardiology 07/30/24 documented as of this encounter
--- OUTSIDE RECORDS SUMMARY | 2025-02-04 11:12 | XMS_ITS | Clinical Summary ---
Author Organization [facility] Address [address] [place] [address] Care Team Providers Care Liquor Department Manager Name Role Phone Tani Biggs Primary Care Provider [phone] Allergies Active Allergy Reactions Criticality Noted Date [...] 03/21/2020 Other Anaphylaxis High 01/12/2021 Mountain Dew Penicillins Shortness of breath High 10/01/2024 Phenylephrine-Acetamino phen Hives Medium 03/07/2022 Rivaroxaban Unknown High 10/18/2024 GI bleed Shrimp Other (See comments) Low 2022 Tongue tingling Tongue tingling Medications atorvastatin (LIPITOR) 80 mg tablet Take 1 tablet (80 mg total) by mouth every morning Active furosemide (LASIX) 20 mg tablet Take 1 tablet (20 mg total) by mouth every morning Active glimepiride (AMARYL) 2 mg tablet Take 1 tablet (2 mg total) by mouth director of provider relations before breakfast Active allopurinoL (ZYLOPRIM) 100 mg tablet Take 1 tablet (100 mg total) by mouth every morning Active azelastine (ASTELIN) 137 mcg (0.1 %) nasal spray Administer 2 sprays into each nostril 2 (two) times a day as needed for rhinitis or allergies Active BD Ultra-Fine Short Pen Needle 31 gauge x 5/16 needle USE WITH BYETTA PEN TWICE DAILY Active empagliflozin (JARDIANCE) 25 mg tablet Take 1 tablet (25 mg total) by mouth every morning Active ferrous sulfate 325 mg (65 mg of elemental iron) tablet Take 1 tablet (325 mg total) by mouth daily with breakfast Active EPINEPHrine 0.3 mg/0.3 mL auto-injection syringe ADMINISTER 0.3 ML IN THE MUSCLE 1 TIME FOR UP TO 1 DAY NEEDED FOR ANAPHYLAXIS Active albuterol HFA (PROVENTIL HFA,VENTOLIN HFA,PROAIR HFA) 90 mcg/actuation inhaler INHALE 2 PUFFS BY MOUTH EVERY 4 HOURS NEEDED FOR WHEEZING OR COUGH Active montelukast (SINGULAIR) 10 mg tablet Take 1 tablet (10 mg total) by mouth nightly Active spironolactone (ALDACTONE) 25 mg tablet Take 1 tablet (25 mg total) by mouth every morning Active ascorbic acid (VITAMIN C) 500 mg tablet,chewable Take 1 tablet/chew tab (500 mg total) by mouth 2 (two) times a day Active cholecalciferol (VITAMIN D-3) 1,000 unit capsule Take 1 capsule (1,000 Units total) by mouth every morning Active hydrocortisone (ANUSOL-HC) 2.5 % rectal cream Insert small amount into rectum using applicator nightly to help with bleeding hemorrhoids. 30 g 5 023 Active Additional Information Patient taking differently: 1 Application rectal Daily PRN, hemorrhoids, Insert small amount into rectum using applicator nightly to help with bleeding hemorrhoids., Informant: Self, Reported on 01/25/2025 hydrOXYzine (ATARAX) 25 mg tablet Take 1 tablet (25 mg total) by mouth every 6 (six) hours as needed for anxiety, allergies or itching 023 Active Qulipta 60 mg tablet Take 1 tablet by mouth nightly Active OneTouch Verio test strips strip 2 (two) times a day TEST BLOOD SUGAR 023 Active carvediloL (COREG) 12.5 mg tablet Take 1 tablet (12.5 mg total) by mouth 2 (two) times a day 023 Active senna-docusate (PERICOLACE) 8.6-50 mg Take 1-2 pills up to twice daily as needed for problematic constipation. 360 tablet 3 023 Active venlafaxine XR (EFFEXOR-XR) 150 mg 24 hr capsule Take 1 capsule (150 mg total) by mouth nightly 023 Active polyethylene glycol (MIRALAX) 17 gram/dose bulk powderIndications :constipation Take 17 g by mouth daily 510 g 024 Active Additional Information Patient taking differently:17 g oralDaily PRN, constipation, Indications: constipation, Reported on 09/09/2024 budesonide-formot Rosi (SYMBICORT) 160-4.5 mcg/actuation inhaler Inhale 2 puffs 2 (two) times a day [address] (PROTONIX) 40 mg EC tablet Take 1 tablet (40 mg total) by mouth daily 90 tablet 3 025 Active Additional Information Patient taking differently:40 mg oralEvery morning, Informant: Self, Reported on 01/25/2025 famotidine (PEPCID) 40 mg tablet Take 1 tablet (40 mg total) by mouth daily 90 tablet 3 025 Active Additional Information Patient taking differently:40 mg oralEvery morning, Informant: Self, Reported on 09/21/2024 lubiprostone (AMITIZA) 24 mcg capsule Take 1 capsule (24 mcg total) by mouth 2 (two) times a day with meals 180 capsule 3 025 Active Mounjaro 15 mg/0.5 mL pen injector injection Inject 0.5 mL (15 mg total) under the skin every 7 days Q Friday 025 Active docusate sodium (COLACE) 100 mg capsule Take 1 capsule (100 mg total) by mouth 2 (two) times a day as needed for constipation Active gabapentin (NEURONTIN) 300 mg capsule Take 1 capsule (300 mg total) by mouth 3 (three) times a day Active magnesium oxide (MAG-OX) 400 mg (241.3 mg elemental magnesium) tablet Take 1 tablet (400 mg total) by mouth every morning Active metoprolol XL (TOPROL-XL) 25 mg extended release tablet Take 1 tablet (25 mg total) by mouth every morning Active albuterol 2.5 mg /3 mL (0.083 %) nebulizer solution Take 3 mL (2.5 mg total) by nebulization every 6 (six) hours as needed for wheezing or shortness of breath Active buPROPion (WELLBUTRIN) 75 mg tablet Take 2 tablets (150 mg total) by mouth nightly Active cyclobenzaprine (FLEXERIL) 5 mg tablet Take 1 tablet (5 mg total) by mouth 3 (three) times a day as needed for muscle spasms at bedtime. Active Jardiance 10 mg tablet Take 1 tablet (10 mg total) by mouth every morning Active EPINEPHrine 0.3 mg/0.3 mL auto-injection syringe Inject 0.3 mL (0.3 mg total) into the muscle as instructed as needed for anaphylaxis Active simethicone (MYLICON) 125 mg chewable tablet CHEW ONE TABLET BY MOUTH UP TO FOUR TIMES DAILY NEEDED FOR PROBLEMATIC GAS AND UPPER ABDOMINAL PAIN 120 tablet 3 Active aspirin 81 mg enteric coated tablet Take 1 tablet (81 mg total) by mouth every morning Do not take for 5 days after surgery Active acetaminophen (TYLENOL) solution 160 mg/5 mL Take 15.5 mL (500 mg total) by mouth every 4 (four) hours 976 mL Active ibuprofen (ADVIL,MOTRIN) suspension 100 mg/5 mL Take 10 mL (200 mg total) by mouth every 4 (four) hours 300 mL Active oxyCODONE (ROXICODONE) 5 mg immediate release tabletIndications :Pain Take 1 tablet (5 mg total) by mouth every 4 (four) hours as needed for pain 40 tablet Active ondansetron ODT (ZOFRAN-ODT) 4 mg disintegrating tablet Take 1 tablet (4 mg total) by mouth every 8 (eight) hours as needed for nausea or vomiting 20 tablet Active ASPIRIN LOW DOSE ORAL Take 81 mg by mouth every morning 2024 Discontinued(D uplicate order) acetaminophen (TYLENOL) 500 mg tablet Take 2 tablets (1,000 mg total) by mouth every 4 (four) hours as needed 2024 Discontinued(T herapy completed) buPROPion XL (WELLBUTRIN XL) 150 mg 24 hr tablet Take 1 tablet (150 mg total) by mouth nightly 023 2024 Discontinued(D uplicate order) ondansetron ODT (ZOFRAN-ODT) 4 mg disintegrating tablet Take 1 tablet (4 mg total) by mouth every 6 (six) hours as needed for nausea or vomiting 20 tablet 3 2024 Discontinued simethicone (MYLICON) 125 mg chewable tablet Take one tablet up to 4 times daily as needed for problematic gas issues and upper abdominal pain. 120 tablet 3 2024 Discontinued cyclobenzaprine (FLEXERIL) 10 mg tablet Take 1 tablet (10 mg total) by mouth 3 (three) times a day 2024 Discontinued(D uplicate order) oxyCODONE-acetami nophen (PERCOCET) 10-325 mg per tablet Take 1 tablet by mouth every 4 (four) hours as needed for pain 2024 Discontinued(S top Taking at Discharge) senna 8.6 mg tablet Take 1 tablet by mouth 2 (two) times a day as needed for constipation 2024 Discontinued(D uplicate order) aspirin 81 mg enteric coated tablet Take 1 tablet (81 mg total) by mouth every morning 025 2024 Discontinued ondansetron ODT (ZOFRAN-ODT) 4 mg disintegrating tablet Take 1 tablet (4 mg total) by mouth every 8 (eight) hours as needed for nausea or vomiting 20 tablet 2024 Discontinued Active Problems Problem Noted Date Diagnosed Date History of kidney cancer 10/06/2023 Overview (10/06/2023): Images from the original note were not included. 03/27/23: NC. Renal lesion. CT + MRI () - right kidney mass ([facility] [place]). Creatinine 1.1. Hx of post-menopausal [...] + MRI () - right kidney mass ([facility] [place]). Creatinine 1.1. Hx of post-menopausal [...] + MRI () - right kidney mass ([facility] [place]). Creatinine 1.1. Hx of post-menopausal [...] (04/29/2022): Added automatically from request for surgery [id number] Internal hemorrhoids 04/25/2022 Gastroparesis 05/23/2021 Erosive gastritis [...] Encounters Date Type Department Care Team Description 01/27/2025 4:05 PM DISTRIBUTION SALES REPRESENTATIVE - 01/27/2025 6:21 PM DISTRIBUTION SALES REPRESENTATIVE [facility] Emergency Department [address] [place] [address] Hyperglycemia (Primary Dx) Discharge Disposition: Discharge to home or self care 01/27/[address] [facility]) - [facility] ENT [id number] [place] [address] Medical Office Building [address] [place] [address] Meli Campos MD 01/27/2025 Orders Only [facility] - [facility] ENT [id number] [place] [address] Medical Office Building [address] [place] [address] Meli Campos MD 01/27/2025 Orders Only [facility] - [facility] ENT [address] [place] [address] Medical Office Building [address] [place] [address] Meli Campos MD 01/26/2025 Telephone [facility] - [facility] ENT [address] [place] [address] Medical Office Building [address] [place] [address] Meli Campos MD 01/26/2025 Telephone [facility] Otolaryngology [address] [place] [address] [id number] Meenakshi Zamora MS 01/25/2025 9:23 AM DISTRIBUTION SALES REPRESENTATIVE Anesthesia Event [facility] Operating Room [address] [place] [id number] Darwin Valerio MD Sextro, Alexander Christian, AA 01/25/2025 9:00 AM DISTRIBUTION SALES REPRESENTATIVE - 01/25/2025 12:00 PM DISTRIBUTION SALES REPRESENTATIVE Surgery [facility] Operating Room [address] [place] [address] Meli Campos MD TONSILLECTOMY 01/25/2025 6:57 AM DISTRIBUTION SALES REPRESENTATIVE - 01/25/2025 2:54 PM DISTRIBUTION SALES REPRESENTATIVE Hospital Encounter [facility] Operating Room [address] [place] [id number] Meli Campos MD EDDI (obstructive sleep apnea) [...] SURGERY Left foot stent due to PVD TONSILLECTOMY 01/25/2025 Throat/Bilateral Procedure: TONSILLECTOMY; Surgeon: Meli Campos MD; Location: OPERATING ROOM; Service: Otolaryngology; Laterality: Bilateral; PHARYNGOPLASTY 01/25/2025 Throat/N/A Procedure: EXPANSION SPHNCTER PHARYNGOPLASTY; Surgeon: Meli Campos MD; Location: OPERATING ROOM; Service: Otolaryngology; Laterality: N/A; Medical History Medical History Date Comments Asthma CHF (congestive heart failure) (HCC) Depression Type 2 diabetes mellitus Hypertension GERD (gastroesophageal reflux disease) Arthritis Migraines Heart disease Sleep apnea Lymphoma (HCC) Anemia Coronary artery disease Chronic kidney disease COPD (chronic obstructive pulmonary disease) Arrhythmia Lung disease Irritable bowel syndrome Gastroparesis Chronic pain disorder History of kidney cancer removed part of right kidney Lupus (systemic lupus erythematosus) (HCC) Neuropathy Anxiety EDDI (obstructive sleep apnea) PVD (peripheral vascular disease) Family History Medical History Relation Name Comments Heart attack Father Heart disease Father Arthritis Mother Helen drew Asthma Mother Helen drew Diabetes Mother Helensantos drew Heart disease Mother Helensantos drew Hypertension Mother Helen drew Depression Sister Dariela yang Relation Name Status Comments Father Mother Helen drew Sister Dariela yang Social History Tobacco Use Types Packs/Day Years Used Date Smoking Tobacco: Some Days Cigarettes 0.3 36 Started: 03/10/1985; Last attempted to quit: 03/10/2021 Smokeless Tobacco: Former Quit: 05/07/2021 Tobacco Cessation:Ready to Q uit: No; Counseling Given: Yes AUDIT-C Answer Date Recorded Frequency of Alcohol Consumption Not on file 01/25/2025 Q2: How many drinks containi ng alcohol do you have on a typical day when you are drinking? Patient does not drink Frequency of Binge Drinking Not on file 01/08 Personal Safety Answer Date Recorded Have you ever been in or are you currently in a harmful physical or emotional relationship or is someone making you feel afraid or unsafe? Denies 01/27/2025 Comments No Sex and Gender Information Value Date Recorded Sex Assigned at Not on file Legal Sex Female 9:19 AM DISTRIBUTION SALES REPRESENTATIVE Gender Identity Female 06/03/2023 11:21 AM CDT Sexual Orientation Villegas 01/18/2021 9: 53 AM DISTRIBUTION SALES REPRESENTATIVE Last Filed Vital Signs Vital Sign Reading Time Taken Comments Blood Pressure 136/84 01/27/2025 5:30 PM DISTRIBUTION SALES REPRESENTATIVE Pulse 105 01/27/2025 5:30 PM DISTRIBUTION SALES REPRESENTATIVE Temperature 36.8 C (98.3 F) 01/27/2025 3:51 PM DISTRIBUTION SALES REPRESENTATIVE Respiratory Rate 14 01/27/2025 5:15 PM DISTRIBUTION SALES REPRESENTATIVE Oxygen Saturation 98% 01/27/2025 5:30 PM DISTRIBUTION SALES REPRESENTATIVE Inhaled Oxygen Concentration - - Weight 78.9 kg (174 lb) 01/27/2025 3:51 PM DISTRIBUTION SALES REPRESENTATIVE Height 162.6 cm (5' 4) 01/27/2025 3:51 PM DISTRIBUTION SALES REPRESENTATIVE Body Mass Index 29.87 01/27/2025 3:51 PM DISTRIBUTION SALES REPRESENTATIVE Plan of Treatment Health Maintenance Due Date Last Done Comments Albumin Creatinine Ratio, Urine 1969 Colon Cancer Screening-Colonoscopy 1969 Depression Screening 1969 Hepatitis C Screening 1969 Dilated Eye Exam 1969 Foot Exam 1969 Hepatitis B Screening 06/01/1987 Regular Well Visit/Exam 18-64 06/01/1987 Zoster Vaccine (2 of 2) 09/07/2022 07/13/2022 Breast Cancer Screening-Mammogram 01/25/2024 01/24/2023, 06/19/2022, 06/19/2022, Additional history exists Cervical Cancer Screening 02/14/2024 02/13/2023, 09/2022 Hemoglobin A1C 07/24/2024 01/25/2024, 02/0 08/2023, 08/31/2016 Influenza Vaccine (#1) 2024 3, 11/13/2021, 11/30/2020, Additional history exists Lipid Panel 09/01/2025 09/01/2024, 01/10, 02/23/2022, Additional history exists eGFR 01/27/2026 01/27/2025, 11/2023, 04/17/2023, Additional history exists DTaP/Tdap/Td Vaccine (2 - Td or Tdap) 06/07/2032 06/07/2022 Pneumococcal vaccine <65 Completed 06/07/2022, 05/09 Goals Goal Patient Goal Type Associated Problems Recent Progress Patient-Stated? Author CCM Chronic Pain Care Plan Chronic Care Management No Kelil Judd, RN Note: Problem: Chronic Pain Goals: [...] stairs Contact your local community or senior butte for information on exercise, fall prevention programs, or options for improving home safety. Procedures Procedure Name Priority Date/Time Associated Diagnosis Comments POCT GLUCOSE DEVICE Routine 01/27/2025 6 :10 PM DISTRIBUTION SALES REPRESENTATIVE EGFR STAT 01/27/2025 4:01 PM DISTRIBUTION SALES REPRESENTATIVE DIFFERENTIAL AUTO STAT 01/27/2025 4:0 1 PM DISTRIBUTION SALES REPRESENTATIVE BETA-HYDROXYBUTYRATE STAT 01/27/2025 4:01 PM DISTRIBUTION SALES REPRESENTATIVE COMPREHENSIVE METABOLIC PANEL STAT 01/27/2025 4:01 PM DISTRIBUTION SALES REPRESENTATIVE CBC WITH AUTO DIFFERENTIAL STAT 01/27/2025 4:01 PM DISTRIBUTION SALES REPRESENTATIVE POCT GLUCOSE DEVICE Routine 01/27/2025 3 :56 PM DISTRIBUTION SALES REPRESENTATIVE SURGICAL PATHOLOGY Routine 01/25/2025 2: 49 PM DISTRIBUTION SALES REPRESENTATIVE EDDI (obstructive sleep apnea) POCT GLUCOSE DEVICE Routine 01/25/2025 1 :27 PM DISTRIBUTION SALES REPRESENTATIVE POCT GLUCOSE DEVICE Routine 01/25/2025 1 :01 PM DISTRIBUTION SALES REPRESENTATIVE POCT GLUCOSE DEVICE Routine 01/25/2025 11:57 AM DISTRIBUTION SALES REPRESENTATIVE POCT GLUCOSE DEVICE Routine 01/25/2025 11:16 AM DISTRIBUTION SALES REPRESENTATIVE POCT GLUCOSE DEVICE Routine 01/25/2025 10:16 AM DISTRIBUTION SALES REPRESENTATIVE PA AN ELECTIVE ENDOTRACHEAL AIRWAY Routine 01/25/2025 9:52 AM DISTRIBUTION SALES REPRESENTATIVE PHARYNGOPLASTY. 01/25/2025 9:22 AM DISTRIBUTION SALES REPRESENTATIVE EDDI (obstructive sleep apnea) Special Needs DR CAMPOS REQUESTS 150 MINS FOR CASE/7-10 DAYS POST OP UVULOPHARYNGOPLASTY 01/25/2025 9 :22 AM DISTRIBUTION SALES REPRESENTATIVE EDDI (obstructive sleep apnea) Special Needs DR CAMPOS REQUESTS 150 MINS FOR CASE/7-10 DAYS POST OP TONSILLECTOMY. 01/25/2025 9:22 AM DISTRIBUTION SALES REPRESENTATIVE EDDI (obstructive sleep apnea) Special Needs DR CAMPOS REQUESTS 150 MINS FOR CASE/7-10 DAYS POST OP POCT GLUCOSE DEVICE Routine 01/25/2025 9 :06 AM DISTRIBUTION SALES REPRESENTATIVE POCT GLUCOSE DEVICE Routine 01/25/2025 8 :44 AM DISTRIBUTION SALES REPRESENTATIVE POTASSIUM, WHOLE BLOOD STAT 8:42 AM DISTRIBUTION SALES REPRESENTATIVE POCT GLUCOSE DEVICE Routine 01/25/2025 8 :16 AM DISTRIBUTION SALES REPRESENTATIVE POCT HCG, URINE Routine 01/25/2025 7:40 AM DISTRIBUTION SALES REPRESENTATIVE POCT GLUCOSE DEVICE Routine 01/25/2025 7 :13 AM DISTRIBUTION SALES REPRESENTATIVE HEMOGLOBIN A1C STAT 04/15/2023 10:25 PM DISTRIBUTION SALES REPRESENTATIVE HIGH RISK HPV DNA DETECTION WITH GENOTYPING Routine 02/13/2023 1:39 PM DISTRIBUTION SALES REPRESENTATIVE Postmenopausal bleeding LIPID PANEL Routine 08/31/2016 6:28 AM CDT from Last 3 Months or Most Recently Relevant to Health Maintenance Results * (ABNORMAL) POCT glucose (01/27/2025 6:10 PM DISTRIBUTION SALES REPRESENTATIVE) Glucose, POC 317(H) 70 - 199 mg/dL Blood 01/27/2025 6:10 PM DISTRIBUTION SALES REPRESENTATIVE 01/27/2025 6:10 PM DISTRIBUTION SALES REPRESENTATIVE us Notinfile Unknown LAB POCT ORDERABLES - DEVICE F inal Result [facility] [place] [address] * eGFR (01/27/2025 4:01 PM DISTRIBUTION SALES REPRESENTATIVE) eGFR 61 >=60 mL/min/1. 73 m2 Comment: Interpretive Data Reference Interval Normal >/= [...] of Race in Diagnosing Kidney Disease, JASN 202). The CKD-EPI equation should not be used for patients with unstable renal function and has not been validated in children and those over 70. Current interpretive data was last reviewed 2021. Blood 01/27/2025 4:01 PM DISTRIBUTION SALES REPRESENTATIVE 01/27/2025 4:04 PM DISTRIBUTION SALES REPRESENTATIVE us Cassie Ramos NP LAB BLOOD ORDERABLES Final Result [facility] Department [place] [address] * (ABNORMAL) Differential, auto (01/27/2025 4:01 PM DISTRIBUTION SALES REPRESENTATIVE) Neutrophil abs 6.67(H) 1.50 - 6.50 K/cumm Imm gran abs 0.04 0.00 - 0.10 K/cumm [facility] ([place]) Lymphocyte abs 2.13 0.80 - 3.30 K/cumm [facility] Monocyte abs 0.71 0.20 - 0.80 K/cumm [facility] ([place] Eosinophil abs 0.07 0.00 - 0.50 K/cumm [facility] ([place]) Basophil abs 0.04 0.00 - 0.10 K/cumm [facility] ([place] Neutrophil pct 69.2 % [facility] ([place]) Comment: Interpretive Data Percent cell count reference ranges are not reported, since discordance with absolute values may lead to misinterpretation of CBC data. Current Interpretive Data was last revised on 2017. Imm gran pct 0.4 % [facility] ([place]) Comment: Interpretive Data Percent cell count reference ranges are not reported, since discordance with absolute values may lead to misinterpretation of CBC data. Current Interpretive Data was last revised on 2017. Lymphocyte pct 22.0 % [facility] ([place] Comment: Interpretive Data Percent cell count reference ranges are not reported, since discordance with absolute values may lead to misinterpretation of CBC data. Current Interpretive Data was last revised on 2017. Monocyte pct 7.3 % [facility] ([place] Comment: Interpretive Data Percent cell count reference ranges are not reported, since discordance with absolute values may lead to misinterpretation of CBC data. Current Interpretive Data was last revised on 2017. Eosinophil pct 0.7 % [facility] ([place] Comment: Interpretive Data Percent cell count reference ranges are not reported, since discordance with absolute values may lead to misinterpretation of CBC data. Current Interpretive Data was last revised on 2017. Basophil pct 0.4 % [facility] ([place]) Comment: Interpretive Data Percent cell count reference ranges are not reported, since discordance with absolute values may lead to misinterpretation of CBC data. Current Interpretive Data was last revised on 2017. Blood 01/27/2025 4:01 PM DISTRIBUTION SALES REPRESENTATIVE 01/27/2025 4:04 PM DISTRIBUTION SALES REPRESENTATIVE Cassie Ramos NP LAB BLOOD ORDERABLES Final Result Performing Organization Address City/[facility]/ZIP Co de Phone Number [facility] ([place]) [facility] Department [place] [address] * Beta-hydroxybutyrate (01/27/2025 4:01 PM DISTRIBUTION SALES REPRESENTATIVE) Pathologist [facility] Beta-Hydroxybut yrate 0.2 <=0.5 mmol/L Comment:Testing performed by : [facility], [address] [place] [address], [facility] Blood 01/27/2025 4:01 PM DISTRIBUTION SALES REPRESENTATIVE 01/28/2025 9:35 AM DISTRIBUTION SALES REPRESENTATIVE Cassie Ramos NP LAB BLOOD ORDERABLES Final Result [facility] ([place]) 1 [facility] [place] [address] * (ABNORMAL) CBC with auto differential (01/27/2025 4:01 PM DISTRIBUTION SALES REPRESENTATIVE) WBC 9.66 3.80 - 9.90 K/cumm Hgb 10.4(L) 11.9 - 15.5 g/dL [facility] Hct 33.9(L) 35.6 - 45.5 % [facility] Plt 255 150 - 400 K/cumm [facility] MPV 10.5 9.1 - 12.3 fL [facility] RBC 4.68 3.90 - 5.20 M/cumm [facility] ([place]) MCV 72.4(L) 81.3 - 96.4 fL [facility] ([place] MCH 22.2(L) 27.1 - 33.3 pg [facility] ([place]) MCHC 30.7(L) 32.3 - 35.7 g/dL [facility] ([place]) RDW CV 17.7(H) 11.1 - 14.9 % [facility] ([place]) RDW SD 43.7 35.7 - 48.1 fL [facility] ([place] NRBC abs 0.00 0.00 - 0.01 K/cumm [facility] ([place]) Blood 01/27/2025 4:01 PM DISTRIBUTION SALES REPRESENTATIVE 01/27/2025 4:04 PM DISTRIBUTION SALES REPRESENTATIVE Cassie Ramos CODING CONSULTANT LAB BLOOD ORDERABLES Final Result [facility] ([place] Department of Laboratories [place], [place] [id number] * (ABNORMAL) Comprehensive metabolic panel (01/27/2025 4:01 PM DISTRIBUTION SALES REPRESENTATIVE) Sodium 135 135 - 145 mmol/L Potassium, pl 4.2 3.3 - 4.9 mmol/L [facility] Chloride 102 97 - 110 mmol/L [facility] CO2 20(L) 22 - 32 mmol/L [facility] Anion gap 13 2 - 15 mmol/L [facility] BUN 15 6 - 25 mg/dL [facility] Creatinine 1.08 0.60 - 1.10 mg/dL [facility] Glucose 428(H) 70 - 199 mg/dL [facility] ([place]) Comment: Interpretive Data Fasting glucose >/= 126 mg/dl is diagnostic for diabetes. Fasting is defined as no caloric intake for at least 8 hours. Fasting glucose between 100 mg/dl to 125 mg/dl is diagnostic of prediabetes. In a patient with classic symptoms of hyperglycemia or hyperglycemic crisis, a random glucose >/= 200 mg/dl is diagnostic for diabetes. In the absence of unequivocal hyperglycemia, results should be confirmed by repeat testing. The classification and Diagnosis of Diabetes Diabetes Care 2021; 46: S19-S40. Current interpretive data was last revised 2022. Calcium 10.3 8.5 - 10.3 mg/dL [facility] Bilirubin, total 0.4 0.1 - 1.2 mg/dL [facility] ([place]) Protein, pl 7.1 6.5 - 8.5 g/dL [facility]) Albumin 4.1 3.5 - 5.0 g/dL [facility] Alk phos 109 40 - 130 Units/L [facility] ALT 12 7 - 45 Units/L [facility] AST 18 10 - 45 Units/L [facility] Blood 01/27/2025 4:01 PM DISTRIBUTION SALES REPRESENTATIVE 01/27/2025 4:04 PM DISTRIBUTION SALES REPRESENTATIVE us Cassie Ramos CODING CONSULTANT LAB BLOOD ORDERABLES Final Result [facility] ([place]) [facility] [employer] [place] [address] * (ABNORMAL) POCT glucose (01/27/2025 3:56 PM DISTRIBUTION SALES REPRESENTATIVE) Glucose, POC 430(H) 70 - 199 mg/dL Blood 01/27/2025 3:56 PM DISTRIBUTION SALES REPRESENTATIVE 01/27/2025 3:56 PM DISTRIBUTION SALES REPRESENTATIVE us Not[employer]ile Unknown LAB POCT ORDERABLES - DEVICE F inal Result ERI VANEGAS ([place]) 1 [facility] [employer] [address] * Surgical pathology (01/25/2025 2:49 PM DISTRIBUTION SALES REPRESENTATIVE) Tissue (Tonsil and / or Adenoids, non-tumor) 01/25/2025 9:53 AM DISTRIBUTION SALES REPRESENTATIVE Narrative PATHOLOGY CH - 01/26/2025 6:50 PM DISTRIBUTION SALES REPRESENTATIVE EPIC results best viewed via link to PDF [facility] Department of Pathology [address] [place] [address] Note to Patients: This report may contain a detailed description of human tissue sent by a health care provider to the laboratory for pathologic evaluation. The content of this report is essential for diagnosis and may provide important critical findings. This information may be unfamiliar to patients to review without a medical professional present. It is advised that the patient review this report in the presence of a health care provider who can answer questions and explain the details. Final Report Patient Name: DERIAN YOUNG Address: [address] [place] [id number] Gender: F : 1970 (Age: 54) Service: Surgery Location: [place] Hospital #: [id number] Patient Type: [facility] Taken: 01/25/2025 Received: 01/25/2025 Accessioned: 01/25/2025 Reported: 01/26/2025 Physician(s):Issac Tadeo PA Diagnosis: Tonsil, right and left, bilateral tonsillectomy: - Moderate benign lymphoid hyperplasia. Irina Lopez M.D. Report Electronically Reviewed and Signed Out By Irina Lopez M.D. 01/26/2025 18:50:18 Specimen(s) Received: A: Bilateral tonsils, tie on right Microscopic Description: Microscopic examination of the right and left tonsils shows tonsil with moderate benign lymphoid hyperplasia. The overlying epithelium is unremarkable with no evidence of dysplasia. Clinical History: EDDI Procedure: tonsillectomy & uvulopharyngoplasty / expansion sphcter pharyngoplasty Gross Description: The specimen is submitted in a single formalin filled container labeled DERIAN YOUNG and bilateral tonsils, tie on right. It is 2 candelaria-pink palatine tonsils, each partially covered by mucosa. The right tonsil, marked with a tie, is 3 g, 2.6 x 1.4 x 1.1 cm, inked blue. Sections show candelaria-pink lymphoid tissue with a small amount of hemorrhage noted centrally. Franchise Specialist sections are submitted in A 1. The left tonsil is 3 g, 2.0 x 1.3 x 1.2 cm. Sections show candelaria-pink lymphoid tissue the small amount of hemorrhage noted. Franchise Specialist sections are submitted in A2. Evon Gibson/Lindsey Charles M.D. REPORT IMAGES AND SCANNED DOCUMENTS, IF INCLUDED, ONLY VIEWABLE IN PDF VERSION OF REPORT The performance characteristics of some immunohistochemical stains, fluorescence in-situ hybridization tests and immunophenotyping by flow cytometry cited in this report (if any) were determined by the Surgical Pathology Department at [facility] as part of an ongoing clinical quality rn program and in compliance with federally mandated regulations drawn from the Clinical Laboratory Improvement Act of 1988 (CLIA '88). Some of these tests rely on the use of analyte specific reagents and are subject to specific labeling requirements by the US Food and Drug Administration. Such diagnostic tests may only be performed in a facility that is certified by the Department of Health and Human Services as a high complexity laboratory under CLIA '88. The FDA has determined that such clearance or approval is not necessary. This test is used for clinical purposes. It should not be regarded as investigational or for research. Nevertheless, federal rules concerning the medical use of analyte specific reagents require that the following disclaimer be attached to the report: This test was developed and its performance characteristics determined by the Surgical Pathology Department [facility]. It has not been cleared or approved by the U. S. Food and Drug Administration. Note for decalcified specimens: This assay has not been validated on decalcified tissues. Results should be interpreted with caution given the possibility of false negativity on decalcified specimens us Meli Campos MD LAB PATHOLOGY ORDERABL ES Final Result PATHOLOGY [address] [place] [address] * (ABNORMAL) POCT glucose (01/25/2025 1:27 PM DISTRIBUTION SALES REPRESENTATIVE) Glucose, POC 225(H) 70 - 199 mg/dL Blood 01/25/2025 1:27 PM DISTRIBUTION SALES REPRESENTATIVE 01/25/2025 1:27 PM DISTRIBUTION SALES REPRESENTATIVE Meli Campos MD LAB POCT ORDERABLES - DEVICE Final Result Performing Organization Address [facility] Co de Phone Number JINNYGUIDO WELCH [address] [address] [facility] [place] [address] * (ABNORMAL) POCT glucose (01/25/2025 1:01 PM DISTRIBUTION SALES REPRESENTATIVE) Glucose, POC 223(H) 70 - 199 mg/dL Blood 01/25/2025 1:01 PM DISTRIBUTION SALES REPRESENTATIVE 01/25/2025 1:01 PM DISTRIBUTION SALES REPRESENTATIVE Meli Campos MD LAB POCT ORDERABLES - DEVICE Final Result Performing Organization Address [facility] de Phone Number ERI WELCH [address] [place] [address] * (ABNORMAL) POCT glucose (01/25/2025 11:57 AM DISTRIBUTION SALES REPRESENTATIVE) Glucose, POC 267(H) 70 - 199 mg/dL Blood 01/25/2025 11:5 7 AM DISTRIBUTION SALES REPRESENTATIVE 01/25/2025 11:57 AM DISTRIBUTION SALES REPRESENTATIVE Meli Campos MD LAB POCT ORDERABLES - DEVICE Final Result Performing Organization Address [facility] de Phone Number ERI YURI [address] [place] [address] * (ABNORMAL) POCT glucose (01/25/2025 11:16 AM DISTRIBUTION SALES REPRESENTATIVE) Glucose, POC 287(H) 70 - 199 mg/dL Blood 01/25/2025 11:1 6 AM DISTRIBUTION SALES REPRESENTATIVE 01/25/2025 11:16 AM DISTRIBUTION SALES REPRESENTATIVE Meli Campos MD LAB POCT ORDERABLES - DEVICE Final Result Performing Organization Address [facility] Co de Phone Number ERI YURI [address] [address] Department [place] [address] * (ABNORMAL) POCT glucose (01/25/2025 10:16 AM DISTRIBUTION SALES REPRESENTATIVE) Glucose, POC 204(H) 70 - 199 mg/dL Blood 01/25/2025 10:1 6 AM DISTRIBUTION SALES REPRESENTATIVE 01/25/2025 10:16 AM DISTRIBUTION SALES REPRESENTATIVE us Meli Campos MD LAB [place] - [place] [address] [address] Department [place] [address] * PA AN ELECTIVE ENDOTRACHEAL AIRWAY (01/25/2025 9:52 AM DISTRIBUTION SALES REPRESENTATIVE) Narrative Lance Darden AA - 01/25/2025 9:52 AM DISTRIBUTION SALES REPRESENTATIVE Lance Darden AA 01/25/2025 9:55 AM Airway Patient location: OR Urgency: elective Date/time: 01/25/2025 9:35 AM Indications for airway management: anesthesia Difficult airway: no Staff: Supervising provider: Darwin Valerio MD Placed by: AA: Lance Darden AA Emergent airway documentation: Risks and benefits discussed: yes Consent obtained: yes Consent given by: patient Airway prep: Preoxygenated: yes Patient position: sniffing Mask difficulty assessment: 1 - vent by mask Spontaneous ventilation during airway: absent Sedation level during airway: GA Final airway details: Final airway type: endotracheal airway Tube type: ETT ETT size: 6.5 mm Cuffed: yes Technique used for successful ETT placement: video laryngoscopy Devices/Methods used in placement: stylet Insertion site: oral Blade type: Michael Video blade type: CMAC Blade size: 3 Cormack-Lehane (video): grade I - full view of glottis Cuff inflated with: air ETT to lips: 23 cm Placement verified by: auscultation and CO2 detection Airway secured with: silk tape Number of attempts: 1 Additional comments: Gentle and atraumatic placement of endotracheal tube. Endotracheal tube cuff inflated to minimal occulusion pressure. Dentition noted to be same as preoperative evaluation. us Darwin Valerio MD ANESTHESIA ORDERABLES Final Result * (ABNORMAL) POCT glucose (01/25/2025 9:06 AM DISTRIBUTION SALES REPRESENTATIVE) Glucose, POC 257(H) 70 - 199 mg/dL Blood 01/25/2025 9:06 AM DISTRIBUTION SALES REPRESENTATIVE 01/25/2025 9:06 AM DISTRIBUTION SALES REPRESENTATIVE Meli Campos MD LAB POCT ORDERABLES - DEVICE Final Result Performing Organization Address [facility] Co de Phone Number ERI YURI [address] [address] [facility] [place] [address] * (ABNORMAL) POCT glucose (01/25/2025 8:44 AM DISTRIBUTION SALES REPRESENTATIVE) Glucose, POC 324(H) 70 - 199 mg/dL Blood 01/25/2025 8:44 AM DISTRIBUTION SALES REPRESENTATIVE 01/25/2025 8:44 AM DISTRIBUTION SALES REPRESENTATIVE Meli Campos MD LAB POCT ORDERABLES - DEVICE Final Result Performing Organization Address [facility] de Phone Number ERI YURI [address] [address] [facility] [place] [address] * Potassium, whole blood (01/25/2025 8:42 AM DISTRIBUTION SALES REPRESENTATIVE) Potassium, bld 4.1 3.3 - 4.9 mmol/L Comment: Interpretive Data This method is not able to assess for hemolysis, which may falsely increase potassium concentrations. If further testing is needed to evaluate this result, consider in-laboratory plasma potassium. Current Interpretive Data was last revised on 2021. Blood 01/25/2025 8:42 AM DISTRIBUTION SALES REPRESENTATIVE 01/25/2025 8:44 AM DISTRIBUTION SALES REPRESENTATIVE Meli Campos MD LAB BLOOD ORDERABLES F inal Result Performing Organization Address [facility] Co de Phone Number ERI YURI [address] [address] [facility] [place] [address] * (ABNORMAL) POCT glucose (01/25/2025 8:16 AM DISTRIBUTION SALES REPRESENTATIVE) [facility] Glucose, POC 333(H) 70 - 199 mg/dL Blood 01/25/2025 8:16 AM DISTRIBUTION SALES REPRESENTATIVE 01/25/2025 8:16 AM DISTRIBUTION SALES REPRESENTATIVE Meli Campos MD LAB POCT ORDERABLES - DEVICE Final Result Performing Organization Address City/[facility]/ZIP Co de Phone Number ERI WELCH [address] [address] Department [place] [address] * POCT hCG, urine (01/25/2025 7:40 AM DISTRIBUTION SALES REPRESENTATIVE) [facility] HCG, ur, POC Negative Negative Lot Number [id number] QC Backgroud Clear Acceptable QC Control Line Acceptable Urine 01/25/2025 7:40 AM DISTRIBUTION SALES REPRESENTATIVE Meli Campos MD POINT OF CARE TEST ORD ERABLES Final Result * (ABNORMAL) POCT glucose (01/25/2025 7:13 AM DISTRIBUTION SALES REPRESENTATIVE) [facility] Glucose, POC 376(H) 70 - 199 mg/dL Blood 01/25/2025 7:13 AM DISTRIBUTION SALES REPRESENTATIVE 01/25/2025 7:13 AM DISTRIBUTION SALES REPRESENTATIVE Meli Campos MD LAB POCT ORDERABLES - DEVICE Final Result Performing Organization Address City/[facility]/ZIP Co de Phone Number ERI WELCH [address] [address] Department [place] [address] * (ABNORMAL) Hemoglobin A1c (04/15/2023 10:25 PM DISTRIBUTION SALES REPRESENTATIVE) [facility] Hgb A1C 5.8(H) 4.0 - 5.6 % ERI EVERETT Estimated Average Glucose 120 mg/dL ERI PARADA Comment: The ADA recommends reporting an estimated Average Glucose (eAG) with all Hemoglobin A1c results using the equation derived from a study of 507 normal and diabetic adults. Minority populations were underrepresented and children were not included. (Diabetes Care 2020; 43(S1): S66-S76). The eAG is not equivalent to a fasting glucose. Blood 04/15/2023 10:2 5 PM DISTRIBUTION SALES REPRESENTATIVE 04/15/2023 11:38 PM DISTRIBUTION SALES REPRESENTATIVE Gerard Rodriguez MD LAB BLOOD ORDERABLES Fin al Result [facility] [place] [address] * High Risk HPV DNA Detection with Genotyping (Molecular component) (02/13/2023 1:39 PM DISTRIBUTION SALES REPRESENTATIVE) HPV HR 16 Not Detected Not Detected [facility] HPV HR 18 Not Detected Not Detected [facility] HPV HR Non 16/18 Not Detected Not Detected [facility] Comment: Interpretive Data Nucleic acid amplification [...] this test have been verified by the [facility] Molecular Infectious Disease laboratory. Correlate with separately reported cytology results, as applicable. Interpretive data last revised 22 Endocervical 02/13/2023 1:39 PM DISTRIBUTION SALES REPRESENTATIVE 02/14/2023 7:00 AM DISTRIBUTION SALES REPRESENTATIVE Narrative [facility] - 02/15/2023 2:10 AM DISTRIBUTION SALES REPRESENTATIVE Clinical history and diagnosis->screening pap Testing type->Screening Last menstrual period (date if known)->2019 Maty Gilbert MD LAB BODY FLUIDS AND STOOLS OR DERABLES Final Result ERI [facility] [place] [address] * (ABNORMAL) Lipid panel (08/31/2016 6:28 AM CDT) Cholesterol 157 40 - 199 mg/dL ERI VANEGAS (DAIA[place]) Comment: Interpretive Data Desirable: Less than 200 mg/dl Borderline High: 200 - 239 mg/dl High: Greater than 239 mg/dl Current interpretive data was last revised on 2014. Triglycerides 334.0(H) <=150.0 mg/dL ERI VANEGAS (DIAANA) Comment: Interpretive Data Normal: Less than 150 [...] MD LAB BLOOD ORDERABLES Final Re sult [facility] [facility] [place] [address] from Last 3 Months or Most Recently Relevant to Health Maintenance Insurance [facility] MEDICARE ADVANTAGE IDPA [facility] MEDICARE ADVANTAGE [facility] MEDICARE ADVANTAGE Advance Directives For more information, please contact: [phone] * Full Code (Latest Code Status on [...] 11:00 AM 02/27/2021 11:00 AM Care Teams Liquor Department Manager Relationship Specialty Start Date End Date Tani Biggs PA [address] [place] [address] PCP - General Orthopedic Surgery 09/13/24
--- OUTSIDE RECORDS SUMMARY | 2025-02-04 11:12 | XMS_ITS | Encounter Summary ---
Author Organization [facility] Address [address] [place] [address] Phone Care Team Providers Care Product Marketing Programs Manager Name Role Phone Phil Jacobo MD Unavailable [phone] Rajiv Mccormack [employer] SUPERVISOR Unavailable Unavailable Alize Acosta SENIOR HEALTH PHYSICS TECHNICIAN, COLOR COATER Unavailable [phone] Dayo Chaney MD Unavailable Juanita Hauser RN Unavailable Unavaila David Martinez MD Unavailable Emilia Tang MD Primary Care Provider [phone] Maurilio Farley MD Unavailable PhysicianCandida MD Unavailable Rebeka Trinidad MD Primary Care Provider + [phone] Dom Quiñonez MD Unavailable Rachelle Nava SENIOR HEALTH PHYSICS TECHNICIAN, LOG BUYER Unavailable + [phone] Irais Naylor SENIOR HEALTH PHYSICS TECHNICIAN, COLOR COATER Unavailable + [phone] Lorri Leo SENIOR HEALTH PHYSICS TECHNICIAN, COLOR COATER Primary Care Provider + [phone] Rebeka Trinidad MD Primary Care Provider + [phone] Lorri Leo SENIOR HEALTH PHYSICS TECHNICIAN, COLOR COATER Primary Care Provider + [phone] Sharri Gaspar MD Unavailable Tani Biggs [facility] Primary Care Provider + [phone] Valdemar Amber Louise SENIOR HEALTH PHYSICS TECHNICIAN, COLOR COATER Unavailable Reason for Visit * Reason Comments Medication Refill Encounter Details Date Type Department Care Team (Late st Contact Info) Description [facility]20[facility] [place] [address] [place] [address] Jackeline Dimas, SENIOR HEALTH PHYSICS TECHNICIAN, COLOR COATER [address] [place] [address] Medication Refill Social History Tobacco [...] 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 Not on file Not [...] st Contact Info) Description 02/21/2025 1:00 PM BULK TANK DRIVER [facility]medicine [facility] [address] [place] [address] 02/21/2025 3:45 PM BULK TANK DRIVER Office Visit [facility] Endocrinology [facility] [address] [place] [phone] David Salmon MD [address] [phone] 02/24/2025 3:30 PM BULK TANK DRIVER Telemedicine [facility] [address] [place] [address] Alize Acosta, SENIOR HEALTH PHYSICS TECHNICIAN, COLOR COATER [address] [place] [address] 03/04/2025 3:10 PM BULK TANK DRIVER [facility] [address] [place] [phone] 03/07/2025 2:15 PM BULK TANK DRIVER Office Visit [facility] Primary Care - [place] [address] [place] [phone] Tani Biggs, ESTRELLITA [address] [place] [phone] 03/17/2025 1:30 PM BULK TANK DRIVER [facility] [address] [place] [phone] Melony Asif PAC [address] [place] [address] Discharge Disposition: Discharged to home or Selfcare 03/25/2025 1:20 PM BULK TANK DRIVER Office Visit [facility] Oncology Services [address] [place] [phone] Melony Asif Stacey, PAC [address] [place] [address] Discharge Disposition: Discharged to home or Selfcare 04/25/2025 2:00 PM BULK TANK DRIVER Office Visit [facility] Cardiology - [place] [address] [place] [phone] Laisha Griffin, DO [address] [address] 07/18/2025 1:00 PM CDT Office Visit [facility] - Pulmonology & Sleep Medicine [facility] [address] [place] [address] Dom Quiñonez MD [address] [place] [address] documented as of this encounter Goals Goal [...] diet Depression Depression Improving(0 03/15/2022 2:27 PM BULK TANK DRIVER) No Breanne Saldana, ROBOTICS TECHNICIAN Note: Goal/Objective: Decrease symptoms of depression [...] 19 04/18/2024 04/18/2024 04/18/2024 10:4 7 PM BULK TANK DRIVER Respiratory Rule-Out 05/06/2024 05/06/2024 025 9:20 AM BULK TANK DRIVER COVID - 19 05/06/2024 05/06/2024 05/06/2024 9:19 AM BULK TANK DRIVER Assessment Noted Time PHQ-9 Depression Total Score: 24 022 3:31 PM BULK TANK DRIVER documented as of this encounter Care Teams Product Marketing Programs Manager Relationship Specialty Start Date End Date Emilia Tang MD [address] [place] [address] PCP - General Family Medicine 06/07/22 03/25/23 Rebeka Trinidad MD [address] [place] [address] PCP - General Family Medicine 03/26/23 03/29/24 Lorri Leo SENIOR HEALTH PHYSICS TECHNICIAN, COLOR COATER [address] [place] [address] PCP - General Certified Nurse Practitioner 03/30/24 04/20/24 Rebeka Trinidad MD [address] [place] [address] PCP - General Family Medicine 04/21/24 04/21/24 Lorri Leo, SENIOR HEALTH PHYSICS TECHNICIAN, COLOR COATER [address] [place] [address] PCP - General Certified Nurse Practitioner 04/22/24 05/30/24 Tani Biggs, PAC [address] [place] [address] PCP - General Physician Cylinder Dyer 05/31/24 Phil Jacobo MD [address] [place] [phone] Consulting Physician Neurology 03/07/21 Rajiv Mccormack, CHILDREN'S [employer] SUPERVISOR [address] [place] [address] Nurse Practitioner Gastroenterology 03/07/21 lAize Acosta, SENIOR HEALTH PHYSICS TECHNICIAN, COLOR COATER [address] [place], [place] [address] [facility] REMANUFACTURING TECHNICIAN Advanced Practice Nurse 08/30/21 Dayo Chaney MD [address] [place] [address] Agricultural Economist Cardiovascular Disease - Cardiology 09/20/21 02/12/24 Juanita Mercado RN [place] Registered Nurse Cardiology 12/24/21 02/12/24 David Salmon MD #[address] [phone] Consulting Physician Endocrinology 01/15/22 Maurilio Farley MD #[address] [address] Consulting Physician Colon and Rectal Surgery 09/20/22 PhysicianCandida MD [address] [place] [address] Family Medicine 01/25/22 03/18/23 Dom Quiñonez MD [address] [place] [phone] Consulting Physician Pulmonary Disease 11/19/21 Rachelle Nava APRN, LOG BUYER #[address] [facility] [place] [address] Nurse Practitioner Advanced Practice Nurse 07/19/22 Iaris Naylor APRN, COLOR COATER [address] [facility] [address] [place] [address] Nurse Practitioner Cardiology 06/27/23 07/29/24 Sharri Gaspar MD [address] [facility] [facility] [address] [place] [address] Consulting Physician Cardiology 04/26/24 Amber Aldrich APRN, COLOR COATER [address] [place] [address] Nurse Practitioner Cardiology 07/30/24 documented as of this encounter
--- OUTSIDE RECORDS SUMMARY | 2025-02-04 11:12 | XMS_ITS | Encounter Summary ---
Author Organization [facility] Address [address] [place] [address] Phone Care Team Providers Care Maintenance Supervisor 2Nd Shift Name Role Phone Phil Jacobo MD Unavailable [phone] Rajiv Mccormack PHOTOGRAPHER NEWS Unavailable Unavailable Alize Acosta ENVIRONMENTAL AID, ORDER RUNNER Unavailable Dayo Chaney MD Unavailable Juanita Hauser RN Unavailable Unavaila David Martinez MD Unavailable Emilia Tang MD Primary Care Provider [phone] Maurilio Farley MD Unavailable PhysicianCandida MD Unavailable Rebeka Trinidad MD Primary Care Provider + [phone] Dom Quiñonez MD Unavailable Rachelle Nava ENVIRONMENTAL AID, CAN INTAKE WORKER Unavailable + [phone] Irais Naylor ENVIRONMENTAL AID, ORDER RUNNER Unavailable + [phone] Lorri Leo ENVIRONMENTAL AID, ORDER RUNNER Primary Care Provider + [phone] Rebeka Trinidad MD Primary Care Provider [phone] AhmetAngélicamando Littlejohn ENVIRONMENTAL AID, ORDER RUNNER Primary Care Provider +[phone] Sharri Gaspar MD Unavailable Tani Biggs PAC Primary Care Provider + [phone] Amber Aldriche ENVIRONMENTAL AID, ORDER RUNNER Unavailable Reason for Visit * Reason Comments Medication Refill Encounter Details Date Type Department Care Team (Late st Contact Info) Description 09/04/2022 Refill [facility] - Endocrinology - [place] [address] [place] [address] David Salmon MD [address] [address] Medication Refill Social History Tobacco [...] 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 TRUEplus 5-Bevel Pen [place] 32G X 4 MM Misc [Pharmacy Med Name: TRUEPLUS 5- BEVEL PEN NEEDLE [id number]] 100 Each 1 Sig: USE DAILY DIRECTED. Next appt: 10/31/2022 documented in this encounter Plan of Treatment Upcoming Encounters Date Type Department Care Team (Late st Contact Info) Description 02/21/2025 1:00 PM SWIM COACH Telemedicine [facility] [address] [place] [address] 02/21/2025 3:45 PM SWIM COACH Office Visit [facility] - Endocrinology - [place] [address] [place] [address] David Salmon MD [address] [address] 02/24/2025 3:30 PM SWIM COACH Telemedicine [facility] [address] [place] [address] Alize Acosta APRN, ORDER RUNNER [address] [place] [address] 03/04/2025 3:10 PM SWIM COACH [facility] - [facility] Care - [place] [address] 03/07/2025 2:15 PM SWIM COACH [facility] [place] [address] [place] [address] Tani Biggs, ESTRELLITA [address] [place] [address] 03/17/2025 1:30 PM SWIM COACH [facility] [address] [place] [address] Melony Asif, PAC [address] [place] [address] Discharge Disposition: Discharged to home or Selfcare 03/25/2025 1:20 PM SWIM COACH [facility] [address] [place] [address] Melony Asif, PAC [address] [place] [address] Discharge Disposition: Discharged to home or Selfcare 04/25/2025 2:00 PM SWIM COACH Office Visit [facility] - Cardiology - [place] [address] [place] [address] Laisha Griffin DO [address] [address] 07/18/2025 1:00 PM CDT Office Visit [facility] - Pulmonology & Sleep Medicine [facility] [address] [place] [address] Dom Quiñonez MD [address] [place] [address] documented as of this encounter Goals Goal [...] diet Depression Depression Improving(0 03/15/2022 2:27 PM SWIM COACH) No Breanne Saldana LCSW Note: Goal/Objective: Decrease [...] - 04/18/2024 04/18/2024 04/18/2024 10:4 7 PM SWIM COACH Respiratory Rule-Out 05/06/2024 05/06/2024 025 9:20 AM SWIM COACH COVID - 05/06/2024 05/06/2024 05/06/2024 9:19 AM SWIM COACH Assessment Noted Time PHQ-9 Depression Total Score: 24 022 3:31 PM SWIM COACH documented as of this encounter Care Teams Maintenance Supervisor 2Nd Shift Relationship Specialty Start Date End Date Emilia Tang MD [address] [place] [address] PCP - General Family Medicine 06/07/22 03/25/23 Rebeka Trinidad MD [address] [place] [address] PCP - General Family Medicine 03/26/23 03/29/24 Lorri Leo APRN, ORDER RUNNER [address] [place] [address] PCP - General Certified Nurse Practitioner 03/30/24 04/20/24 Rebeka Trinidad MD [address] [place] [place], [place] [id number] PCP - General Family Medicine 04/21/24 04/21/24 Lorri Leo, ENVIRONMENTAL AID, ORDER RUNNER [address] [place] [address] PCP - General Certified Nurse Practitioner 04/22/24 05/30/24 Tani Biggs, PAC [address] [place] [address] PCP - General Physician Custom Decorating Consultant 05/31/24 Phil Jacobo MD [address] [place] [address] Consulting Physician Neurology 03/07/21 Rajiv Mccormack, PHOTOGRAPHER NEWS [address] [place] [address] Nurse Practitioner Gastroenterology 03/07/21 Alize Acosta, ENVIRONMENTAL AID, ORDER RUNNER [address] [place] [address] Virtual Advanced Care (VAC) FLEXOGRAPHIC PRESS SET UP OPERATOR Advanced Practice Nurse 08/30/21 Dayo Chaney MD [address] [place] [address] Mandolin Repair Person Cardiovascular Disease - Cardiology 09/20/21 02/12/24 Juanita Mercado, [place] Registered Nurse Cardiology 12/24/21 02/12/24 David Salmon MD #[address] [address] Consulting Physician Endocrinology 01/15/22 Maurilio Farley MD #[address] [address] Consulting Physician Colon and Rectal Surgery 09/20/22 PhysicianCandida MD [address] [place] [address] Family Medicine 01/25/22 03/18/23 Dom Quiñonez MD [address] [place] [address] Consulting Physician Pulmonary Disease 11/19/21 Rachelle Nava APRN, CAN INTAKE WORKER [address] [place] [address] Nurse Practitioner Advanced Practice Nurse 07/19/22 Irais Naylor, ENVIRONMENTAL AID, ORDER RUNNER #[address] [address] Nurse Practitioner Cardiology 06/27/23 07/29/24 Sharri Gaspar MD [address] [address] Consulting Physician Cardiology 04/26/24 Amber Aldrich APRN, ORDER RUNNER [address] [place] [address] Nurse Practitioner Cardiology 07/30/24 documented as of this encounter
--- OUTSIDE RECORDS SUMMARY | 2025-02-04 11:12 | XMS_ITS | Encounter Summary ---
Author Organization [facility] Address [address] [place] [address] Phone Care Team Providers Care Nutrition Worker Name Role Phone Phil Jacobo MD Unavailable [phone] Rajiv Mccormack METAL LEAF LAYER Unavailable Unavailable Alize Acosta REPORT PROGRAMMER, NUT AND BOLT ASSEMBLER Unavailable [phone] Dayo Chaney MD Unavailable Juanita Hauser RN Unavailable Unavaila David Martinez MD Unavailable Emilia Tang MD Primary Care Provider [phone] Maurilio Farley MD Unavailable PhysicianCandida MD Unavailable Rebeka Trinidad MD Primary Care Provider + [phone] Dom Quiñonez MD Unavailable Rachelle Nava REPORT PROGRAMMER, INSECTICIDE SUPERVISOR Unavailable + [phone] Irais Naylor REPORT PROGRAMMER, NUT AND BOLT ASSEMBLER Unavailable + [phone] Lorri Leo REPORT PROGRAMMER, NUT AND BOLT ASSEMBLER Primary Care Provider + [phone] Rebeka Trinidad MD Primary Care Provider + [phone] Lorri Leo REPORT PROGRAMMER, NUT AND BOLT ASSEMBLER Primary Care Provider + [phone] Sharri Gaspar MD Unavailable Tani Biggs [facility] Primary Care Provider + [phone] Valdemar Amber Louise REPORT PROGRAMMER, NUT AND BOLT ASSEMBLER Unavailable Reason for Visit * Reason Comments Medication Refill Encounter Details Date Type Department Care Team (Late st Contact Info) Description [facility]20[facility] [place] [address] [place] [address] Jackeline Dimas, REPORT PROGRAMMER, NUT AND BOLT ASSEMBLER [address] [place] [address] Medication Refill Social History Tobacco [...] 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 Not on file Not [...] st Contact Info) Description 02/21/2025 1:00 PM AIRCRAFT DELIVERY CHECKER Telemedicine [facility] [address] [place] [address] 02/21/2025 3:45 PM AIRCRAFT DELIVERY CHECKER Office Visit [facility] - Endocrinology [facility] #[address] [place] [address] David Salmon MD #[address] [address] 02/24/2025 3:30 PM AIRCRAFT DELIVERY CHECKER Telemedicine [facility] [address] [place] [address] Alize Acosta, REPORT PROGRAMMER, NUT AND BOLT ASSEMBLER [address] [place] [address] 03/04/2025 3:10 PM AIRCRAFT DELIVERY CHECKER [facility] [place] [address] [place] [address] 03/07/2025 2:15 PM AIRCRAFT DELIVERY CHECKER Office Visit [facility] Primary Care - [place] [address] [place] [address] Tani Biggs, ESTRELLITA [address] [place] [address] 03/17/2025 1:30 PM AIRCRAFT DELIVERY CHECKER [facility] [address] [place] [address] Melony Asif August, PAC [address] [place] [address] Discharge Disposition: Discharged to home or Selfcare 03/25/2025 1:20 PM AIRCRAFT DELIVERY CHECKER Office Visit [facility] Services [address] [place] [address] Melony Asif Stacey, PAC [address] [place] [address] Discharge Disposition: Discharged to home or Selfcare 04/25/2025 2:00 PM AIRCRAFT DELIVERY CHECKER Office Visit [facility] - Cardiology - [place] [address] [place] [address] Laisha Griffin, DO [address] [address] 07/18/2025 1:00 PM CDT Office Visit [facility] - Pulmonology & Sleep Medicine [facility] [address] [place] [address] Dom Quiñonez MD [address] [place] [address] documented as of this encounter Goals Goal [...] as recommended. Depression Depression Improving( 2:27 PM AIRCRAFT DELIVERY CHECKER) No Breanne Saldana LCSW Note: Goal/Objective: [...] 19 04/18/2024 04/18/2024 04/18/2024 10:4 7 PM AIRCRAFT DELIVERY CHECKER Respiratory Rule-Out 05/06/2024 05/06/2024 025 9:20 AM AIRCRAFT DELIVERY CHECKER COVID - 19 05/06/2024 05/06/2024 05/06/2024 9:19 AM AIRCRAFT DELIVERY CHECKER Assessment Noted Time PHQ-9 Depression Total Score: 24 022 3:31 PM AIRCRAFT DELIVERY CHECKER documented as of this encounter Care Teams Nutrition Worker Relationship Specialty Start Date End Date Emilia Tang MD [address] [place] [address] PCP - General Family Medicine 06/07/22 03/25/23 Rebeka Trinidad MD [address] [place] [address] PCP - General Family Medicine 03/26/23 03/29/24 Lorri Leo APRN, NUT AND BOLT ASSEMBLER [address] [place] [address] PCP - General Certified Nurse Practitioner 03/30/24 04/20/24 Rebeka Trinidad MD [address] [place] [address] PCP - General Family Medicine 04/21/24 04/21/24 Lorri Leo APRN, NUT AND BOLT ASSEMBLER [address] [place] [address] PCP - General Certified Nurse Practitioner 04/22/24 05/30/24 Tani Biggs, PAC [address] [place] [address] PCP - General Physician Metal Crafts Teacher 05/31/24 Phil Jacobo MD [address] [place] [address] Consulting Physician Neurology 03/07/21 Rajiv Mccormack, METAL LEAF LAYER [address] [place] [address] Nurse Practitioner Gastroenterology 03/07/21 Alize Acosta, REPORT PROGRAMMER, NUT AND BOLT ASSEMBLER [address] [place] [address] Virtual Advanced Care (VAC) REJOINER Advanced Practice Nurse 08/30/21 Dayo Chaney MD [address] [place] [address] Tearoom Host Cardiovascular Disease - Cardiology 09/20/21 02/12/24 Juanita Mercado, [place] Registered Nurse Cardiology 12/24/21 02/12/24 David Salmon MD #[address] [phone] Consulting Physician Endocrinology 01/15/22 Maurilio Farley MD #[address] [address] Consulting Physician Colon and Rectal Surgery 09/20/22 Physician, Candida Davis MD [address] [place] [address] Family Medicine 01/25/22 03/18/23 Dom Quiñonez MD #[address] [place] [address] Consulting Physician Pulmonary Disease 11/19/21 Rachelle Nava APRN, INSECTICIDE SUPERVISOR [address] [place] [address] Nurse Practitioner Advanced Practice Nurse 07/19/22 Irais Naylor APRN, NUT AND BOLT ASSEMBLER #2 [facility] [address] [place] [address] Nurse Practitioner Cardiology 06/27/23 07/29/24 Sharri Gaspar MD [address] [address] Consulting Physician Cardiology 04/26/24 Amber Aldrich APRN, NUT AND BOLT ASSEMBLER [address] [place] [address] Nurse Practitioner Cardiology 07/30/24 documented as of this encounter
--- OUTSIDE RECORDS SUMMARY | 2025-02-04 11:12 | XMS_ITS | Encounter Summary ---
Author Organization [facility] Address [address] [place] [address] Phone Care Team Providers Care Marine Pipe Welder Name Role Phone Phil Jacobo MD Unavailable [phone] Rajiv Mccormack CHILD AND FAMILY SERVICES WORKER Unavailable Unavailable Alize Acosta APRN, CYBER SYSTEMS ADMINISTRATOR Unavailable [phone] Dayo Chaney MD Unavailable Juanita Hauser RN Unavailable UnavailDavid Alexandre MD Unavailable Maurilio Farley MD Unavailable Rebeka Trinidad MD Primary Care Provider + [phone] Dom Quiñonez MD Unavailable Rachelle Nava STUNNER, DIRECTOR GLOBAL STRATEGIC PUBLISHER SALES Unavailable + [phone] Irais Naylor STUNNER, CYBER SYSTEMS ADMINISTRATOR Unavailable + [phone] Lorri Leo STUNNER, CYBER SYSTEMS ADMINISTRATOR Primary Care Provider + [phone] Rebeka Trinidad MD Primary Care Provider + [phone] Lorri Leo STUNNER, CYBER SYSTEMS ADMINISTRATOR Primary Care Provider + [phone] Sharri Gaspar MD Unavailable Tani Biggs [facility] Primary Care Provider [phone] Amber Aldrich APRN, CYBER SYSTEMS ADMINISTRATOR Unavailable Reason for Visit * Reason Comments Medication Refill Encounter Details Date Type Department Care Team (Late st Contact Info) Description 10/31/2023 Refill [facility] - Neurology [facility] [address] [place] [address] Rachelle Nava, RUSSELL, DIRECTOR GLOBAL STRATEGIC PUBLISHER SALES [address] [place] [address] Medication Refill Social History Tobacco Use Types Packs/Day Years Used Date Smoking Tobacco: Former Cigarettes 1 37.1 1 985 - 04/12/2021 Smokeless Tobacco: Never Alcohol Use Standard Drinks/Week Comments Not Currently 0 (1 standard drink = 0.6 oz pur e alcohol) last drank 2020 [facility] Utilities Answer Date Recorded In the past 12 months has [place] electric, gas, oil, or water [employer] threatened to shut off services in your [...] you attend [facility] or hoahaoism services? 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 on file Not on file documented as of this encounter Plan of Treatment Upcoming Encounters Date Type Department Care Team (Late st Contact Info) Description 02/21/2025 1:00 PM CONSTRUCTION TRADES CONTRACTOR Telemedicine [facility] [address] [place] [address] [phone] 02/21/2025 3:45 PM CONSTRUCTION TRADES CONTRACTOR Office Visit [facility] Medical [facility] - Endocrinology - [place] [address] [place] [address] David Salmon MD #[address] [address] 02/24/2025 3:30 PM CONSTRUCTION TRADES CONTRACTOR Telemedicine [facility] [address] [place] [address] Alize Acosta, STUNNER, CYBER SYSTEMS ADMINISTRATOR [address] [place] [address] 03/04/2025 3:10 PM CONSTRUCTION TRADES CONTRACTOR [facility] [place] [address] [place] [address] 03/07/2025 2:15 PM CONSTRUCTION TRADES CONTRACTOR [facility] [place] [address] [place] [address] Tani Biggs, PAC [address] [place] [address] 03/17/2025 1:30 PM CONSTRUCTION TRADES CONTRACTOR [facility] [address] [place] [address] Melony Asif Stacey, [facility] [address] [place] [address] Discharge Disposition: Discharged to home or Selfcare 03/25/2025 1:20 PM CONSTRUCTION TRADES CONTRACTOR [facility] [address] [place] [address] Melony Asif Stacey, [facility] [address] [place] [address] Discharge Disposition: Discharged to home or Selfcare 04/25/2025 2:00 PM CONSTRUCTION TRADES CONTRACTOR Office Visit [facility] - Cardiology - [place] [address] [place] [address] Laisha Griffin, DO [address] [address] 07/18/2025 1:00 PM CDT [facility] [facility] [address] [place] [address] Dom Quiñonez MD [address] [place] [address] documented as of this encounter Goals Goal Patient Goal Type Associated Problems Recent Progress Patient-Stated? Author ACTIVITY Activity No change(08/08 2:42 PM CDT) Yes Maritza Vanegas, RN Note: Bonny will walk five days a week. Goal Reviewed with: Bonny Readiness to change: Department associated with goal: [facility] Steps to achieve goal: Walking [...] diet Depression Depression Improving(0 03/15/2022 2:27 PM CONSTRUCTION TRADES CONTRACTOR) No Breanne Saldana, TARGET TRIMMER Note: Goal/Objective: Decrease symptoms of depression associated [...] Lifestyle On track(05/18 1:50 PM CDT) Yes Maritaz Vanegas RN Note: Goal Reviewed with: Bonny [...] 19 04/18/2024 04/18/2024 04/18/2024 10:4 7 PM CONSTRUCTION TRADES CONTRACTOR Respiratory Rule-Out 05/06/2024 05/06/2024 025 9:20 AM CONSTRUCTION TRADES CONTRACTOR COVID - 19 05/06/2024 05/06/2024 05/06/2024 9:19 AM CONSTRUCTION TRADES CONTRACTOR Assessment Noted Time PHQ-9 Depression Total Score: 18 023 9:24 AM CDT documented as of this encounter Care Teams Marine Pipe Welder Relationship Specialty Start Date End Date Rebeka Trinidad MD [address] [place] [address] PCP - General Family Medicine 03/26/23 03/29/24 Lorri Leo APRN, CYBER SYSTEMS ADMINISTRATOR [address] [place] [address] PCP - General Certified Nurse Practitioner 03/30/24 04/20/24 Rebeka Trinidad MD [address] [place] [address] PCP - General Family Medicine 04/21/24 04/21/24 Lorri Leo APRN, CYBER SYSTEMS ADMINISTRATOR [address] [place] [address] PCP - General Certified Nurse Practitioner 04/22/24 05/30/24 Tani Biggs, PAC [address] [place] [address] PCP - General Physician Head Of Integrated Media 05/31/24 Phil Jacobo MD [address] [place] [address] Consulting Physician Neurology 03/07/21 Rajiv Mccormack, KELI [address] [place] [address] Nurse Practitioner Gastroenterology 03/07/21 Alize Acosta APRN, CYBER SYSTEMS ADMINISTRATOR [address] [place] [address] Virtual Advanced Care (VAC) PACKAGE LINER Advanced Practice Nurse 08/30/21 Dayo Chaney MD [address] [place] [address] Ophthalmic Technician Apprentice Cardiovascular Disease - Cardiology 09/20/21 02/12/24 Juanita Mercado RN [place] Registered Nurse Cardiology 12/24/21 02/12/24 David Salmon MD #[address] [address] Consulting Physician Endocrinology 01/15/22 Maurilio Farley MD #[address] [id number] Consulting Physician Colon and Rectal Surgery 09/20/22 Dom Quiñonez MD #[address] [place] [address] Consulting Physician Pulmonary Disease 11/19/21 Rachelle Nava APRN, DIRECTOR GLOBAL STRATEGIC PUBLISHER SALES [address] [place] [address] Nurse Practitioner Advanced Practice Nurse 07/19/22 Irais Naylor STUNNER, CYBER SYSTEMS ADMINISTRATOR #2 [facility] [address] [place] [address] Nurse Practitioner Cardiology 06/27/23 07/29/24 Sharri Gaspar MD 2 [facility] [place] [facility] [address] [place] [address] Consulting Physician Cardiology 04/26/24 Amber Aldrich APRN, CYBER SYSTEMS ADMINISTRATOR [address] [place] [address] Nurse Practitioner Cardiology 07/30/24 documented as of this encounter
--- OUTSIDE RECORDS SUMMARY | 2025-02-04 11:12 | XMS_ITS ---
Author Organization [facility] Address [address] [place] [address] Phone Care Team Providers Care Fabrication Technician Name Role Phone Phil Jacobo MD Unavailable [phone] Rajiv Mccormack NP Unavailable Unavailable Alize Acosta APRN, MUSICAL INSTRUMENT MAKER OR REPAIRER Unavailable [phone] David Salmon MD Unavailable Maurilio Farley MD Unavailable Dom Quiñonez MD Unavailable Rachelle Nava APRN, ELECTRICIAN RESEARCH Unavailable + [phone] Sharri Gaspar MD Unavailable Tani iBggs Primary Care Provider Amber Aldrich APRN, MUSICAL INSTRUMENT MAKER OR REPAIRER Unavailable [facility] Status:Enrolled (Active) Start date:01/25/2022 Enrollment date:02/19/2023 Continued Care and Services Coordination
--- OUTSIDE RECORDS SUMMARY | 2025-02-04 11:12 | XMS_ITS | Data Portability ---
Author Organization [facility] Door [facility] and, [facility]) Address [address] [place] [address] Care Team Providers Care Policyholder Information Clerk Name Role Phone Unavailable Primary Care Provider AFSHIN Edmondson Shift Production Associate CATHI FERNANDEZ Primary Care Provider Assessment Encounter Date Assessment Date Assessment LastModified by Organization Details LastModified Time 01/30/2024 01/30/2024 53-year-old fema patti with history of peripheral vascular disease status post left lower extremity revascularization presenting for follow-up virtually after being discharged from the hospital. Unfortunately, she was treated for acute anemia requiring blood transfusion and unable to tolerate xarelto/plavix. She continues to complain of severe pain to the left foot with abnormal arterial ultrasound including an occluded anterior tibial artery. She has not an ideal candidate for cilostazol given her history of heart failure. My recommendation is lower extremity angiogram with possible intervention. The risks, benefits, and alternatives were discussed with the patient. The patient states they understand and wish to proceed. Treatment planning is underway. I spent a total of 45 minutes with the patient. The time was spent reviewing the chart ,discussing with patient and/or family and forming a treatment plan. Not available 01/30/2024 13:18:40 06/15/2024 06/15/2024 54-year-old fema patti with history of peripheral vascular disease status post left lower extremity revascularization presenting for follow-up. She complains of pain and weakness to left lower extremity. Limited left lower extremity arterial ultrasound demonstrated multiphasic waveforms throughout the left lower extremity without occlusions. Given the ultrasound results I do not suspect her pain is due to arterial disease as she admits that she has worsening spinal stenosis stenosis. I have advised her to follow up with her pain management/neurosur tali for further treatment of her left lower extremity symptoms. We will follow up with her in 2 months or sooner if needed. Of note, she complains of having a GI bleed requiring blood transfusions in January of 2024. A recent CBC was performed which revealed stable hemoglobin. I advised her to monitor for GI bleed symptoms and discontinue Plavix if symptoms reoccur. Not available 06/15/2024 10:38:03 Plan of Treatment Reminders Order Date Submit Date Provider Last Modified By Organization Details Last Modified Time Details Appointments None recorded. Lab None recorded. Referral None recorded. Procedures None recorded. Surgeries None recorded. Imaging None recorded. Medication Orders Adult Low Dose Aspirin 81 mg tablet,de layed release [facility] #29886, [address], [place], [id number], 4 15:01:07 Plavix 75 mg tablet [facility] #03909, [address], [place], [phone], 4 15:01:09 Patient TargetsNo targets recorded. Patient InstructionsNo instructions recorded. Reason for Referral None Reported. Results Created Date Observation Date Name Description Value Unit Range Abnormal Flag Note LastModifiedBy Organization Detail LastModifiedTime 01/21/2001/21/2024 US, doppl er, arter ial No observ ation record ed. [email or web address] Not Available 2023 10:27:39 01/23/20 24 01/21/2024 US, doppl er, arter ial No observ ation record ed. [email or web address] Not Available 2023 08:53:10 06/17/19 25 06/15/2024 US, doppl er, arter ial No observ ation record ed. [email or web address] Not Available 2024 08:45:26 Result Notes None recorded. Problems Name Problem SNOMED Code Status Onset Date Resolution Date Notes Provider Name and Address Organization Details Recorded Time Type 2 diabetes mellitus 92865782 Active 2023 Syead Hinchey null[place] [facility] 4 15:21:31 Hypertensi ve disorder 03947165 Active 2023 Syeda Hinc[place] [facility] and 4 15:21:37 Congestive heart failure 52252108 Active 2023 Syeda Hinc[place] [facility] and 4 15:21:41 Anemia 529598612 Active 2023 Syeda Hinc[place] [facility] 4 15:22:43 Peripheral vascular disease 573113515 Active 2023 Carla M[place] [facility] 4 13:24:23 Complicati on due to diabetes mellitus 50294773 Active 2023 Carla Leopoldo [place] [facility] and 4 13:24:23 Bilateral lower limb pain at rest due to atheroscle rosis 7120203856416 9103 Active 2023 Carla Leopoldo [place] [facility] and 4 14:47:08 Pain at rest of left lower limb due to atheroscle rosis 2509229088860 9107 Active 2023 Carla Leopoldo [place] [facility] and 4 09:57:22 Problem Notes None recorded. Procedures Surgical History Date Name Laterality Status Provider Name and Address Organization Details Recorded Time 025 OA limited LE ultrasound arterial completed Carla Mina [place] [facility] and 06/15/2024 19:36:16 024 [place] [address], [address], [place] [facility] and 02/03/2024 15:11:22 024 OA limited LE ultrasound arterial completed Syeda Hectornchey [place] [facility] and 01/21/2024 14:36:07 024 [place] [address], [address], [place] [facility] and 01/15/2024 12:30:06 024 [place] [address], [address], [place] [facility] and 12/30/2023 10:29:13 024 OALEArterialUS1 completed Carla Mina [place] [facility] and 12/23/2023 14:46:20 023 Other completed Syeda Hectormorrishey [place] [facility] and 11/04/2023 15:21:02 Imaging Results None recorded. Procedure Notes None recorded. Medical Equipment None Reported. Allergies Allergen ID Allergen Name Allergen Category Reaction Reaction Severity Criticality Documentation Date Start Date Code Code System Note Provider Name and Address Organization Details Recorded Time 01254 phenyleph rine medicatio n itching mild Not available 11/04/2023 8163 RxNorm Syeda Hinchey [place] [facility] and 15:20:49 52837 cephalexi n medicatio n itching mild Not available 11/04/2023 2231 RxNorm Syeda [place]inc[place] [facility] and 15:20:49 07674 ketorolac medicatio n rash moderate Not available 11/04/2023 31909 RxNorm Syeda [place]inc[place] [facility] and 15:20:49 13730 bee pollen environme nt,medica tion swelling moderate Not available 11/04/2023 06251 7 RxNorm Syeda [place] [facility] 4 15:20:49 47677 cat dander environme nt cough eye redness hives ringing in ears swelling wheezing moderate moderate moderate moderate moderate moderate Not available 11/04/2023 Syeda Hinchey [place] [facility] 4 15:20:49 20671 Canis lupus familiari s extract environme nt cough eye redness hives wheezing moderate moderate moderate moderate Not available 11/04/2023 10324 4 RxNorm Syeda Hinc[place] [facility] 4 15:20:49 47042 bernabe allergeni c extract food,medi cation swelling moderate Not available 11/04/2023 48510 1 RxNorm Syeda [place]inchey [place] [facility] 4 15:20:49 95796 shrimp allergeni c extract food dry mouth itching mild mild Not available 11/04/2023 59856 2 RxNorm Syeda [place] [facility] 4 15:20:49 41400 ibuprofen medicatio n Not available Not available Not available 12/31/2023 5640 RxNorm Stoma ch ulcer Alize Brady [place] [facility] 4 11:19:59 22141 Xarelto medicatio n gi bleed severe high 02/04/2024 11933 99 RxNorm Alize Brady [place] [facility] and 4 07:45:05 Medications Name Sig Start Date Stop Date Status Note LastModified by Organization Details LastModified Time cyclobenzapr ine 10 mg tablet TAKE 1 TABLET BY MOUTH THREE TIMES DAILY FOR UP TO 14 DAYS NEEDED FOR PAIN active Not Available Not Available No t Available furosemide 40 mg tablet active Not Available Not Available Not Available methocarbamo l 500 mg tablet TAKE 1 TABLET BY MOUTH THREE TIMES DAILY NEEDED active Not Available Not Available No t Available atorvastatin 80 mg tablet TAKE 1 TABLET BY MOUTH DAILY active Not Available Not Available Not Available carvedilol 12.5 mg tablet active Not Available Not Available Not Available tizanidine 2 mg tablet active Not Available Not Available No t Available fluconazole 150 mg tablet TAKE 1 TABLET BY MOUTH 1 TIME FOR 1 DOSE active Not Available Not Available No t Available hydrocodone 5 mg-acetamino phen 325 mg tablet TAKE 1 TABLET BY MOUTH EVERY 6 HOURS NEEDED FOR SEVERE PAIN active Not Available Not Available Not Available famotidine 40 mg tablet active Not Available Not Available Not Available prednisone 20 mg tablet TAKE 2 TABLETS BY MOUTH DAILY FOR 5 DAYS active Not Available Not Available N ot Available venlafaxine ER 150 mg capsule,exte nded release 24 hr active Not Available Not Available Not Available Accu-Chek Softclix Lancets active Not Available Not Available Not Available clopidogrel 75 mg tablet TAKE 1 TABLET BY MOUTH DAILY active Not Available Not Available Not Available allopurinol 100 mg tablet TAKE 1 TABLET BY MOUTH DAILY active Not Available Not Available Not Available tramadol 50 mg tablet TAKE 1 TABLET BY MOUTH EVERY 6 HOURS NEEDED FOR SEVERE PAIN active Not Available Not Available Not Available spironolacto ne 25 mg tablet TAKE 1 TABLET BY MOUTH DAILY active Not Available Not Available Not Available pantoprazole 20 mg tablet,delay ed release active Not Available Not Available N ot Available oxycodone-ac etaminophen 5 mg-325 mg tablet TAKE 1 TABLET BY MOUTH EVERY 8 HOURS NEEDED FOR MODERATE TO SEVERE PAIN active Not Available Not Available Not Available tamsulosin 0.4 mg capsule active Not Available Not Available Not Available pantoprazole 40 mg tablet,delay ed release TAKE 1 TABLET BY MOUTH DAILY active Not Available Not Available Not Available prednisone 50 mg tablet TAKE 1 TABLET BY MOUTH DAILY active Not Available Not Available Not Available bupropion HCl 75 mg tablet TAKE 1 TABLET BY MOUTH TWICE DAILY AFTER BREAKFAST AND LUNCH active Not Available Not Available No t Available montelukast 10 mg tablet active Not Available Not Available Not Available furosemide 20 mg tablet TAKE 1 TABLET BY MOUTH DAILY active Not Available Not Available Not Available metoprolol succinate ER 25 mg tablet,exten ded release 24 hr TAKE 1 TABLET BY MOUTH DAILY active Not Available Not Available Not Available epinephrine 0.3 mg/0.3 mL injection, auto-injecto r INJECT 0.3 ML ONCE NEEDED FOR ANAPHYLAXIS active Not Available Not Available Not Available albuterol sulfate HFA 90 mcg/actuatio n aerosol inhaler active Not Available Not Available Not Available doxycycline hyclate 100 mg tablet TAKE 1 TABLET BY MOUTH TWICE DAILY FOR 10 DAYS active Not Available Not Available No t Available ipratropium bromide 0.02 % solution for inhalation active Not Available Not Available N ot Available Adult Low Dose Aspirin 81 mg tablet,delay ed release Take 1 tablet(s) every day by oral route for 90 days. 2024 active Not Available Not Available Not Avai lable bupropion HCl XL 150 mg 24 hr tablet, extended release active Not Available Not Available Not Available duloxetine 60 mg capsule,diana yed release TAKE 1 CAPSULE BY MOUTH DAILY active Not Available Not Available Not Available losartan 100 mg-hydrochlo rothiazide 12.5 mg tablet TAKE 1 TABLET BY MOUTH DAILY active Not Available Not Available Not Available lubiprostone 24 mcg capsule TAKE ONE CAPSULE (24 MCG TOTAL) BY MOUTH TWICE DAILY AT 9AM & 5PM WITH MEALS active Not Available Not Available No t Available Advair HFA 230 mcg-21 mcg/actuatio n aerosol inhaler INHALE 1 PUFF BY MOUTH EVERY MORNING AND EVERY NIGHT AT BEDTIME active Not Available Not Available N ot Available Jardiance 10 mg tablet TAKE 1 TABLET BY MOUTH DAILY active Not Available Not Available Not Available Accu-Chek Guide test strips active Not Available Not Available Not Available Accu-Chek Guide Glucose Meter active Not Available Not Available Not Available Emgality Pen 120 mg/mL subcutaneous pen injector active Not Available Not Available Not Available OneTouch Delica Plus Lancet 33 gauge active Not Available Not Available Not Available Mounjaro 15 mg/0.5 mL subcutaneous pen injector INJECT 15 MG SUBCUTANEOU SLY ONCE A WEEK active Not Available Not Available No t Available Mounjaro 12.5 mg/0.5 mL subcutaneous pen injector ADMINISTER 12.5 MG UNDER THE SKIN 1 TIME A WEEK active Not Available Not Available No t Available Vitals Date Recorded Body height Body mass index (BMI) Body weight Systolic And Diastolic Provider Name and Address Organization Details Last Updated DateTime 06/15/2024 162.56 cm 29.5 kg/m2 15967.89 g 115/86 mm[Hg] bc cavanaugh [facility] and 06/15/2024 09:46:20 Date Recorded Body height Body mass index (BMI) Body weight Heart rate Oxygen saturation Body temperature Respiratory rate Systolic And Diastolic Provider Name and Address Organization Details Last Updated DateTime 162.56 cm 29.4 kg/m2 08879.0 1 g 97 /min 96 % 97.8 [degF] 14 /min 129/78 mm[Hg] Alize Brady [employer] [facility] [employer] and 10:54:37 Date Recorded Body height Body mass index (BMI) Body weight Heart rate Oxygen saturation Body temperature Respiratory rate Systolic And Diastolic Provider Name and Address Organization Details Last Updated DateTime 4 162.56 cm 29.5 kg/m2 17403.8 9 g 106 /min 98 % 98 [degF] 14 /min 150/90 mm[Hg] Alma Eddy [employer] [facility] and 07:18:24 Social History Question Answer Notes LastModified by [employer] ion Details LastModified Time Tobacco Smoking Status Former Smoker Syeda poon [facility] and 11/04/2023 15:20:59 What Is Your Level Of Caffeine Consumption? Occasional [email or web address] Information not available 12/24/2023 Which Illicit Or Recreational Drugs Have You Used? None Information not available 11/04/2023 What Was The Date Of Your Most Recent Tobacco Screening? 01/21/2024 Information not available 01/21/2024 At What Age Did You Start Smoking Tobacco? 15 [email or web address] Information not available 12/24/2023 How Much Tobacco Do You Smoke? No Information not available 11/04/2023 How Many Years Have You Smoked Tobacco? 30 Information not available 11/04/2023 Sex: Unknown Functional Status Question Answer Note LastModified by Organizat ion Details LastModified Time Do you use any illicit or recreational drugs? No [email or web address] Information not available 12/24/2023 Do you or have you ever used any other forms of tobacco or nicotine? No [email or web address] Information not available 12/24/2023 What is your level of alcohol consumption? 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 Family History Nothing Reported. Medical History Condition Response Coronary Artery Disease N COPD N Gastrointestinal Disease Y Anxiety Disorder Y Cancer Y Stroke N Neurologic Disorder N Kidney Disease N Ulcers Y Bleeding Disorder Y Asthma Y Hepatitis N Pulmonary Embolism N Clotting Disorder N Pacemaker N Genitourinary Disease N Deep Vein Thrombosis N Varicose Veins N Anemia Y Diabetes Y Anticoagulation therapy Y Hyperlipidemia Y Heart Disease Y Hypertension Y Gynecological History Statement/Question Response Y Current Control Method None Obstetrics History GPAL:G 0 P 0 0 0 0 Past Encounters Encounter ID Performer Location Encounter Start Date Encounter Closed Date Diagnosis/Indication Diagnosis SNOMED-CT Code Diagnosis ICD10 Code Diagnosis IMO Codes Diagnosis Note [id number] Ashley Solomon MD [facility] [address] [address] 11/04/2023 14:25:05 11/04/2023 16:14:33 Uterine leiomyoma 07753696 D25.9 Intermitte nt claudication of bilateral lower limbs co-occurrent and due to atherosclerosis 5861973749 4296737 I70.213 Postmenopa usal bleeding 31568167 N95.0 [id number] Ashley Solomon MD [facility] [address] [address] 12/23/2023 10:49:32 12/23/2023 14:57:37 Uterine leiomyoma 84370452 D25.9 Bilateral lower limb pain at rest due to atherosclerosis 5399294565 6519377 I70.223 Complicati on due to diabetes mellitus 20466017 E11.8 [id number] Ashley Solomon MD [facility] [place] [address] [address] 12/23/2023 10:52:17 12/23/2023 14:58:30 Bilateral lower limb pain at rest due to atherosclerosis 9411943871 8742566 I70.223 [id number] Ashley Solomon MD [facility] ( [facility] ) [address] [place] [address] 12/30/2023 07:44:05 12/30/2023 20:35:40 Atherosclerosis 62320589 I70.223 [id number] Ashley Solomon MD [facility] ( [facility] ) [address] [place], [place] [id number] 01/15/2024 07:59:05 01/15/2024 20:11:24 Atherosclerosis 20865325 I70.222 Postoperative pain 59939 9007 G89.18 [id number] Ashley Solomon MD [facility] [address] [place] [address],[place] [phone] 01/21/2024 13:22:27 01/21/2024 18:46:46 Bilateral lower limb pain at rest due to atherosclerosis 8727917433 8568442 I70.223 [id number] Ashley Solomon MD [facility]TRASOUN D [address] [place] [address] 01/21/2024 13:59:03 01/26/2024 20:54:10 Pain at rest of left lower limb due to atherosclerosis 9919739975 8629991 I70.222 [id number] Ashley Solomon MD [facility] [address] [place] [address] 5 01/30/2024 12:55:49 01/30/2024 13:28:40 Pain at rest of left lower limb due to atherosclerosis 5352328543 3843904 I70.222 [id number] Ashley Solomon MD [facility] ( [facility] ) [address] [place], [place] [phone] 02/03/2024 09:30:29 02/04/2024 06:04:57 Atherosclerosis 82955347 I70.222 [id number] Ashley Solomon MD [facility] ( [facility] ) [address] [place], [place] [phone] 02/17/2024 07:12:29 02/17/2024 20:08:11 Pain at rest of right lower limb due to atherosclerosis 0310749246 5866984 I70.221 Patient presented for possible right lower extremity revascular ization, given her right lower extremity rest pain. Upon arrival, it was noted that her right lower extremity symptoms were modest and I did not feel that revascular ization would help her symptoms. I recommend conservati ve therapy. Of note, she has an appointmen t with a pain doctor to assess options including spinal stenosis for her lower extremity neuropathy symptoms. [id number] Ashley Solomon MD [facility] [address] [address] 06/15/2024 08:47:59 06/15/2024 12:09:50 Pain at rest of left lower limb due to atherosclerosis 0640723200 5587145 I70.222 [id number] Ashley Solomon MD [facility] D [address] [address] 06/15/2024 08:54:39 06/16/2024 12:16:50 Pain at rest of left lower limb due to atherosclerosis 9408229020 1286637 I70.222 Health Concerns Section Related Observation LastModified by Organization Detai ls LastModified Time None Recorded Concern Status LastModified by Organization Details LastModified Time None Recorded Advance Directives Directive None Recorded Payers Insurance Date Sequence Insurance Name Policy Number Policy Singh Covered Member ID Singh Member ID Guarantor Name 09/03/2024 2 MEDICARE B-[place]: WPS Jodie Sutton [id number] Jodie Sutton 09/06/2024 1 [employer] (MEDICARE REPLACEMENT/A DVANTAGE - PPO) Bonny Sutton [id number] Jodie Sutton 09/06/2024 1 [facility] [id number] Bonny Sutton [id number] Jodie Sutton Notes Date Note Type Note Provider Name and Address Organization Details Recorded Time 01/30/2024 text/html She is presenting for a virtual follow-up after being discharged from the hospital due to GI bleed requiring blood transfusions. She continues to complain of severe left lower extremity pain SAYDA WALLS, [employer]IP[employer] [address], [address], [facility] and 01/30/2024 13:19:33 02/03/2024 text/html Patient with a history of leftrest pain, presenting for angiogram with possible intervention. she previously had left lower extremity revascularization, however she continued to have severe left lower extremity pain. An ultrasound discovered reocclusion of the previously vascularized anterior tibial artery. My plan today is to attempt revascularization of the [place] [address], [address], [facility] 02/03/2024 15:11:59 02/17/2024 text/html Patient with a history of rightrest pain, presenting for angiogram with possible intervention. Upon arrival, it was noted that her right lower extremity symptoms were modest and I did not feel that revascularization would help her symptoms. I recommend conservative therapy. Of note, she has an appointment with a pain doctor to assess options including spinal stenosis for [place] lower [place] [address], [address], [facility] 02/17/2024 16:57:27 06/15/2024 text/html Patient presents today with complaints of pain and unsteadiness when walking. She stated that her left leg feels heavier when she is walking around, but that she is unable to apply pressure to her leg very well. [place] [address], [address], [facility] and 06/15/2024 10:38:20 OBGyn Episode No OBEpisode recorded.
--- OUTSIDE RECORDS SUMMARY | 2025-02-04 11:12 | XMS_ITS | Encounter Summary ---
Author Organization [facility] Address [address] [place] [address] Phone Care Team Providers Care Precision Grinder Name Role Phone Phil Jacobo MD Unavailable [phone] Rajiv Mccormack ANIMAL HUSBANDRY TECHNICIAN Unavailable Unavailable Alize Acosta APRN, MANAGER DATA WAREHOUSE Unavailable [phone] Dayo Chaney MD Unavailable Juanita Hauser RN Unavailable UnavailDavid Alexandre MD Unavailable Maurilio Farley MD Unavailable Rebeka Trinidad MD Primary Care Provider + [phone] Dom Quiñonez MD Unavailable Rachelle Nava SUPERVISOR FINISHING, AUDIT ANALYST Unavailable + [phone] Irais Naylor SUPERVISOR FINISHING, MANAGER DATA WAREHOUSE Unavailable + [phone] Lorri Leo SUPERVISOR FINISHING, MANAGER DATA WAREHOUSE Primary Care Provider + [phone] Rebeka Trinidad MD Primary Care Provider + [phone] Lorri Leo SUPERVISOR FINISHING, MANAGER DATA WAREHOUSE Primary Care Provider + [phone] Sharri Gaspar MD Unavailable Tani Biggs PAC Primary Care Provider + [phone] Amebr Aldrich APRN, CNP Unavailable Encounter Details Date Type Department Care Team (Late st Contact Info) Description 09/12/2023 [facility] [address] [place] [phone] Rebeka Trinidad MD [address] [place] [address] Social History Tobacco Use Types Packs/Day Years Used Date Smoking Tobacco: Former Cigarettes 1 37.1 1 985 - 04/12/2021 Smokeless Tobacco: Never Alcohol Use Standard Drinks/Week Comments Not Currently 0 (1 standard drink = 0.6 oz pur e alcohol) last drank 2020 [facility] Utilities Answer Date Recorded In the past 12 months has ubitus, gas, oil, or water [employer] threatened to shut off services in your home? No 09/08/2023 Social Connection and Isolation Panel Answer Date Recorded In a typical week, how many times do you talk on the phone with family, friends, or neighbors? Once a week 09/08/19 24 How often do you get togethe r with friends or relatives? Never 09/08/2023 How often do you attend [facility] or synagogue services? 1 to 4 times per year [...] Total Score - Questions 1-9 18 08/ [facility] Occupat ional [facility] - Occupational Stress Questionnaire Answer [...] place to sleep or slept in a custodial (including now)? No 03/24/2023 Housing Stability Vital Sign Answer Jovany e Recorded In the last 12 months, was t here a time when you were not able to pay the mortgage or rent on time? Yes 09/08/2023 In the past 12 months, how m any times have you moved where you were living? 0 09/08/2023 At any time in the past 12 m [facility], were you homeless or living in a custodial (including now)? 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 Medical [facility] - Endocrinology - [address] [place] [phone] David Salmon MD [address] [phone] 02/24/2025 3:30 PM INTERNETWORKING TECHNICIAN Telemedicine [facility] [address] [place] [address] Alize Acosta, SUPERVISOR FINISHING, MANAGER DATA WAREHOUSE [address] [place] [address] 03/04/2025 3:10 PM INTERNETWORKING TECHNICIAN [facility] [place] [phone] 03/07/2025 2:15 PM INTERNETWORKING TECHNICIAN Office Visit [facility] - [place] [phone] Tani Biggs, [facility] [address] [place] [address] 03/17/2025 1:30 PM INTERNETWORKING TECHNICIAN Lab [facility] Oncology Services [address] [place] [phone] AsifMelony kumari Stacey, [facility] [address] [place] [address] Discharge Disposition: Discharged to home or Selfcare 03/25/2025 1:20 PM INTERNETWORKING TECHNICIAN Office Visit [facility] [address] [place] [phone] AsifMelony kumari Stacey, [facility] [address] [place] [address] Discharge Disposition: Discharged to home or Selfcare 04/25/2025 2:00 PM INTERNETWORKING TECHNICIAN Office Visit [facility] - Cardiology - [address] [place] [phone] Laisha Griffin, DO [address] [address] 07/18/2025 1:00 PM CDT Office Visit [facility] - Pulmonology & Sleep Medicine [facility] [address] [place] [phone] Dom Quiñonez MD [address] [place] [address] documented as of this encounter [...] Worsening(0 09/22/2023 3:12 PM CDT) Hilda Mesa [facility] Note: Goal/Objective: Decrease symptoms of depression and anxiety. Anticipated Time Frame for Goal Completion: 3 months Goal Reviewed with: patient Readiness to change: Thinking about making a change Department associated with goal: [facility] Steps to [...] diet Depression Depression Improving(0 03/15/2022 2:27 PM INTERNETWORKING TECHNICIAN) No Breanne Saldana, STAVE BLOCK SPLITTER Note: Goal/Objective: Decrease symptoms of depression associated [...] 19 04/18/2024 04/18/2024 04/18/2024 10:4 7 PM INTERNETWORKING TECHNICIAN Respiratory Rule-Out 05/06/2024 05/06/2024 025 9:20 AM INTERNETWORKING TECHNICIAN COVID - 05/06/2024 05/06/2024 05/06/2024 9:19 AM INTERNETWORKING TECHNICIAN Assessment Noted Time PHQ-9 Depression Total Score: 18 023 9:24 AM CDT documented as of this encounter Care Teams Precision Grinder Relationship Specialty Start Date End Date Rebeka Trinidad MD [address] [place] [address] PCP - General Family Medicine 03/26/23 03/29/24 Lorri Leo APRN, MANAGER DATA WAREHOUSE [address] [place] [address] PCP - General Certified Nurse Practitioner 03/30/24 04/20/24 Rebeka Trinidad MD [address] [place] [address] PCP - General Family Medicine 04/21/24 04/21/24 Lorri Leo APRN, MANAGER DATA WAREHOUSE [address] [place] [address] PCP - General Certified Nurse Practitioner 04/22/24 05/30/24 Tani Biggs, PAC [address] [place] [address] PCP - General Physician Principal Product Manager 05/31/24 Phil Jacobo MD [address] [place] [address] Consulting Physician Neurology 03/07/21 Rajiv Mccormack, KELI [address] [place] [address] Nurse Practitioner Gastroenterology 03/07/21 Alize Acosta, SUPERVISOR FINISHING, MANAGER DATA WAREHOUSE [address] [place], [place] [phone] [facility] ABA THERAPIST Advanced Practice Nurse 08/30/21 Dayo Chaney MD [address] [place] [address] Health Management Consultant Cardiovascular Disease - Cardiology 09/20/21 02/12/24 Juanita Mercado RN [place] Registered Nurse Cardiology 12/24/21 02/12/24 David Salmon MD [address] [phone] Consulting Physician Endocrinology 01/15/22 Maurilio Farley MD [address] [address] Consulting Physician Colon and Rectal Surgery 09/20/22 Dom Quiñonez MD [address] [place] [address] Consulting Physician Pulmonary Disease 11/19/21 Rachelle Nava, SUPERVISOR FINISHING, AUDIT ANALYST [address] [place] [address] Nurse Practitioner Advanced Practice Nurse 07/19/22 Irais Naylor, SUPERVISOR FINISHING, MANAGER DATA WAREHOUSE [address] [facility] [address] [place] [address] Nurse Practitioner Cardiology 06/27/23 07/29/24 Sharri Gaspar MD [address] [facility] [place] [address] [address] Consulting Physician Cardiology 04/26/24 Amber Aldrich APRN, MANAGER DATA WAREHOUSE [address] [place] [address] Nurse Practitioner Cardiology 07/30/24 documented as of this encounter
--- OUTSIDE RECORDS SUMMARY | 2025-02-04 11:12 | XMS_ITS ---
Author Organization [facility] Address [address] [place] [address] Care Team Providers Care Policy Writer Typist Name Role Phone Tani Biggs Primary Care Provider [phone] Active Problems Problem Noted Date Diagnosed Date History of kidney cancer 10/06/2023 Overview (10/06/2023): Images from the original note were not included. 03/27/23: NC. Renal lesion. CT + MRI () - right kidney mass ([facility] in [place]). Creatinine 1.1. Hx of post-menopausal bleeding s/p [...] + MRI () - right kidney mass ([facility] in [place]). Creatinine 1.1. Hx of post-menopausal bleeding s/p [...] + MRI () - right kidney mass ([facility] in [place]). Creatinine 1.1. Hx of post-menopausal bleeding s/p [...] (04/29/2022): Added automatically from request for surgery [id number] Internal hemorrhoids 04/25/2022 Gastroparesis 05/23/2021 Erosive gastritis [...]
--- OUTSIDE RECORDS SUMMARY | 2025-02-04 11:12 | XMS_ITS | Data Portability ---
Author Organization [facility] GURJITGildardo Address [address] [facility] [place] [address] Assessment No assessment recorded. Plan of Treatment Reminders Order Date Submit Date Provider Last Modified By Organization Details Last Modified Time Details Appointments None recorded. Lab biopsy, endometrial 2022 023 [facility], [address], [address] [address], [place], [address], 3 12:07:56 test, urine 2022 023 [email or web address] In-Office Order, Internal Use Only DO Not Attach Compendium DO Not Attach Compendium, Do Not Delete/merge, [id number] 3 12:07:52 cytology report, thin prep, smear or scraping, cervical or vaginal - cervical and endocervica l. [place] and broom 2022 023 [facility], [address] [place] [address], [address], [place], [address], 3 11:15:42 TSH + free T4, serum 2022 023 [facility], [address] [place] [address], [address], [place], [address], 3 11:14:06 prolactin, serum 2022 023 [facility], [address] [place] [address], [address], [place], [address], 3 11:14:07 test, urine 2022 023 [email or web address] In-Office Order, Internal Use Only DO Not Attach Compendium DO Not Attach Compendium, Do Not Delete/merge, [id number] 3 09:37:07 Referral gynecologis t referral 2022 [facility], [address] [place], [address], 3 12:10:15 Procedures None recorded. Surgeries None recorded. Imaging US, breast, unilateral - inner lower quadrant 2022 [facility] ([facility]) Scheduling, [address] [place], [address], 3 16:58:35 MAMMO, diagnostic, tomosynthes is, bilateral 2022 [facility] ([facility]) Scheduling, [address] [place], [address], 16:54:06 Medication Orders None recorded. Patient TargetsNo targets recorded. 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 Not Available [facility] ([facility]) [address] [facility], [place], [address], 01/09/2023 11:15:42 01/07/2001/07/2023 IGP,C TNGTV ,APT HPV,R FX16/ 18,45 chlamydia, nuc. acid amp Negati ve negati ve Not Available [facility] ([facility]) [address] [place], [address], 01/09/2023 11:15:42 01/07/2001/07/2023 IGP,C TNGTV ,APT HPV,R FX16/ 18,45 gonococcus, nuc. acid amp Negati ve negati ve Not Available [facility] ([facility]) [address] [facility], [place], [address], 01/09/2023 11:15:42 01/07/2001/07/2023 IGP,C TNGTV ,APT HPV,R FX16/ 18,45 trich vag by GWENDOLYN Negati ve negati ve Not Available [facility] ([facility]) [address] [place], [address], 01/09/2023 11:15:42 01/07/2001/09/2023 IGP,C TNGTV ,APT HPV,R FX16/ 18,45 diagnosis: Commen t NEGAT ALEC FOR INTRA EPITH ELIAL LESIO N OR MALIG RICHARD . Not Available [facility] ([facility]) [address] [place], [address], 01/09/2023 11:15:42 10/30/20 23 01/09/2023 IGP,C TNGTV ,APT HPV,R FX16/ 18,45 specimen adequacy: Alex tobar Satis facto ry for evalu ation . No endoc ervic al compo nent is ident ified . Not Available [facility] ([facility]) [address] [facility], [place], [address], 01/09/2023 11:15:42 01/07/2001/09/2023 IGP,C TNGTV ,APT HPV,R FX16/ 18,45 clinician provided ICD10: Alex tobar N95.0 Z01.4 19 Not Available [facility] ([facility]) [address] [facility], [place], [address], 01/09/2023 11:15:42 01/07/2001/09/2023 IGP,C TNGTV ,APT HPV,R FX16/ 18,45 performed by: Alex luu, Trista tobar (ASCP ) Not Available [facility] ([facility]) [address] [facility], [place], [address], 01/09/2023 11:15:42 01/07/20 23 01/09/2023 IGP,C TNGTV ,APT HPV,R FX16/ 18,45 . . Not Available [facility] ([facility]) [address] [place], [address], 01/09/2023 11:15:42 01/07/2001/09/2023 IGP,C TNGTV ,APT HPV,R [...] ts do occur . Not Available [facility] ([facility]) [address] [facility], [place], [address], 01/09/2023 11:15:42 01/07/20 23 01/09/2023 IGP,C TNGTV ,APT HPV,R FX16/ 18,45 test methodology: Commen t This liqui d based ThinP rep(R ) pap test was kimberly fitzgerald with the use of an image guide kailey segura Not Available [facility] ([facility]) [address] [facility], [place], [address], 01/09/2023 11:15:42 01/07/20 23 01/09/2023 IGP,C TNGTV ,APT HPV,R FX16/ 18,45 HPV genotype reflex Commen t Crite conchita not met, HPV Genot ype not perfo rmed. Not Available [facility] ([facility]) [address] [facility], [place], [address], 01/09/2023 11:15:42 01/07/20 23 01/06/2023 pregn huber test, urine HCG negati ve Not Available In-Office Order Internal Use Only DO Not Attach Compendium DO Not Attach Compendium, Do Not Delete/merge, [id number] 01/06/2023 09:37:01 01/22/2001/22/2023 TSH+F REE T4 TSH 2.210 uIU/m L 0.450- 4.500 Not Available [facility] ([facility]) [address] [place], [address], 01/22/2023 11:14:06 01/22/2001/22/2023 TSH+F REE T4 T4,free(dire ct) 1.40 NG/dL 0.82-1 .77 Not Available [facility] ([facility]) [address] [place], [address], 01/22/2023 11:14:06 01/22/20 23 01/22/2023 PROLA CTIN prolactin 46.0 NG/mL 4.8-23 .3 above high normal Not Available [facility] ([facility]) [address] [facility], [place], [address], 01/22/2023 11:14:07 01/22/2001/24/2023 PATHO LOGY REPOR T . Commen t Mater ial submi tted: . endom etriu m - ENDOM ETRIA L BIOPS Y Not Available [facility] ([facility]) [address] [facility], [place], [address], 01/24/2023 16:13:40 01/22/2001/24/2023 PATHO LOGY REPOR T . Commen t Diagn osis: ENDOM ETRIA L BIOPS Y: ATROP HIC ENDOM ETRIU M. NO HYPER PLASI A OR CARCI NOMA. ORA 01/24 1224 Local Not Available [facility] ([facility]) [address] [facility], [place], [address], 01/24/2023 16:13:40 01/22/2001/24/2023 PATHO LOGY REPOR T . Commen t Albino barrientos d: . [facility] MD, Patho logis t Not Available [facility] ([facility]) [address] [facility], [place], [address], 01/24/2023 16:13:40 01/22/2001/24/2023 PATHO LOGY REPOR T [...] RA 01/23 0142 Local Not Available [facility] ([facility]) [address] [facility], [place], [address], 01/24/2023 16:13:40 01/22/20 23 01/24/2023 PATHO LOGY REPOR T . Alex t Patho logis t provi ded ICD-1 0: N85.8 Not Available [facility] ([facility]) [address] [facility], [place], [address], 01/24/2023 16:13:40 01/22/20 23 01/24/2023 PATHO LOGY REPOR T . Alex tobar CPT . 71578 1 Not Available [facility] ([facility]) [address] [facility], [place], [address], 01/24/2023 16:13:40 01/22/20 23 01/21/2023 pregn huber test, urine HCG negati ve Not Available In-Office Order Internal Use Only DO Not Attach Compendium DO Not Attach Compendium, Do Not Delete/merge, [id number] 01/21/2023 11:39:42 11/14/1911/14/2023 Cobal beavers (Silva min [...] Auto Diffe renti al panel - Blood landscape drafter review of results Yes Not Available Not [...] Not Available 08/25/2024 13:31:55 01/24/20 24 01/24/2024 [facility] [employer] alec [place] o[place] 1999 panel - Serum or Plasm a chloride [moles/volum e] in serum or plasma 110 mmol/ L low: 98mmol /Lhigh : 107mmo l/L high Not Available Not Available 08/25/2024 13:31:55 01/24/20 24 01/24/2024 [facility] YouLike[employer] ale[place] olic 1999 panel - Serum or Plasm a carbon dioxide, total [moles/volum e] in serum or plasma 15 mmol/ L low: 22mmol /Lhigh : 30mmol /L low Not Available Not Available 08/25/2024 13:31:55 01/24/20 24 01/24/2024 [facility] [employer] [facility] [place] ic 1999 panel - Serum or Plasm a anion gap in serum or plasma by calculation 16.1 mmol/ L high: 18mmol /L Not Available Not Available 08/25/2024 13:31:55 01/24/20 24 01/24/2024 [facility] Dealdrivee [place] [facility] 1999 panel - Serum or Plasm a glucose [mass/volume ] in serum or plasma 312 mg/dL low: 70mg/d Lhigh: 99mg/d L high Not Available Not Available 08/25/2024 13:31:55 01/24/20 24 01/24/2024 [facility] [employer] [facility] [place] ic 1999 panel - Serum or Plasm a urea nitrogen [mass/volume ] in serum or plasma 46 mg/dL low: 10mg/d Lhigh: 20mg/d L high Not Available Not Available 08/25/2024 13:31:55 01/24/20 24 01/24/2024 [facility] [employer] [facility] [place] ic 1999 panel - Serum or Plasm a creatinine [mass/volume ] in serum or plasma 1.08 mg/dL low: 0.6mg/ dLhigh : 1mg/dL high Not Available Not Available 08/25/2024 13:31:55 01/24/20 24 01/24/2024 [facility] [employer] [facility] [place] olic 1999 panel - Serum or Plasm a urea nitrogen/cre atinine [mass ratio] in serum or plasma 43 text: 12 - 20 ratio high Not Available Not Available 08/25/2024 13:31:55 01/24/20 24 01/24/2024 [facility] [employer] [place] [facility] 1999 panel - Serum or Plasm a protein [mass/volume ] in serum or plasma 5.4 g/dL low: 6.3g/d Lhigh: 8.2g/d L low Not Available Not Available 08/25/2024 13:31:55 01/24/20 24 01/24/2024 [facility] 1999 panel - Serum or Plasm a albumin [mass/volume ] in serum or plasma 3 g/dL low: 3.5g/d Lhigh: 5g/dL low Not Available Not Available 08/25/2024 13:31:55 01/24/20 24 01/24/2024 [facility] [place] [facility] 1999 panel - Serum or Plasm a albumin/glob ulin [mass ratio] in serum or plasma 1.3 low: 1high: 2.2 Not Available Not Available 08/25/2024 13:31:55 01/24/20 24 01/24/2024 [facility] 1999 panel - Serum or Plasm a calcium [mass/volume ] in serum or plasma 9 mg/dL low: 8.7mg/ dLhigh : 10.5mg /dL Not Available Not Available 08/25/2024 13:31:55 01/24/20 24 01/24/2024 [facility] 1999 panel - Serum or Plasm a bilirubin.to christian [mass/volume ] in serum or plasma 0.2 mg/dL low: 0.2mg/ dLhigh : 1.2mg/ dL Not Available Not Available 08/25/2024 13:31:55 01/24/20 24 01/24/2024 [facility] [employer] [place] [facility] 1999 panel - Serum or Plasm a aspartate aminotransfe rase [enzymatic activity/vol ume] in serum or plasma 9 U/L low: 5U/Lhi gh: 34U/L Not Available Not Available 08/25/2024 13:31:55 01/24/20 24 01/24/2024 [facility] [place] [facility] 1999 panel - Serum or [...] 18.5 mIU/mL high Test Perfo rmed by: [facility] [place] [address] , [place] [address] Lab Direc tor: Cameron Castellano nn Ph.D. ; CLIA# [id number] Not Available Not Available 08/25/2024 13:31:22 06/05/19 [...] Auto Diffe renti al panel - Blood landscape drafter review of results Yes Not Available Not [...] Not Available 08/25/2024 13:31:21 08/19/19 25 08/18/2024 [facility] [employer] [place] [facility] 1999 panel - Serum or Plasm a carbon dioxide, total [moles/volum e] in serum or plasma 19 mmol/ L low: 22mmol /Lhigh : 30mmol /L low Not Available Not Available 08/25/2024 13:31:21 08/19/19 25 08/18/2024 [facility] [place] [facility] 1999 panel - Serum or Plasm a anion gap in serum or plasma by calculation 15.7 mmol/ L high: 18mmol /L Not Available Not Available 08/25/2024 13:31:21 08/19/19 25 08/18/2024 [facility] [employer] [facility] [place] [facility] 1999 panel - Serum or Plasm a glucose [mass/volume ] in serum or plasma 240 mg/dL low: 70mg/d Lhigh: 99mg/d L high Not Available Not Available 08/25/2024 13:31:21 08/19/19 25 08/18/2024 [facility] [place] [facility] 1999 panel - Serum or Plasm a urea nitrogen [mass/volume ] in serum or plasma 24 mg/dL low: 10mg/d Lhigh: 20mg/d L high Not Available Not Available 08/25/2024 13:31:21 08/19/19 25 08/18/2024 [facility] [place] [address] panel - Serum or Plasm a creatinine [mass/volume ] in serum or plasma 1.19 mg/dL low: 0.6mg/ dLhigh : 1mg/dL high Not Available Not Available 08/25/2024 13:31:21 08/19/19 25 08/18/2024 [facility] [employer] [place] [facility] 1999 panel - Serum or Plasm a urea nitrogen/cre atinine [mass ratio] in serum or plasma 20 text: 12 - 20 ratio Not Available Not Available 08/25/2024 13:31:21 08/19/19 25 08/18/2024 [facility] [employer] [place] [facility] 2000 panel - Serum or Plasm a protein [mass/volume ] in serum or plasma 8.2 g/dL low: 6g/dLh igh: 8g/dL high Not Available Not Available 08/25/2024 13:31:21 08/19/19 25 08/18/2024 [facility] 1999 panel - Serum or Plasm a albumin [mass/volume ] in serum or plasma 4.4 g/dL low: 3.5g/d Lhigh: 5g/dL Not Available Not Available 08/25/2024 13:31:21 08/19/19 25 08/18/2024 [facility] 1999 panel - Serum or Plasm a albumin/glob ulin [mass ratio] in serum or plasma 1.2 low: 1high: 2.2 Not Available Not Available 08/25/2024 13:31:21 08/19/19 25 08/18/2024 [facility] 1999 panel - Serum or Plasm a calcium [mass/volume ] in serum or plasma 10.6 mg/dL low: 8.7mg/ dLhigh : 10.5mg /dL high Not Available Not Available 08/25/2024 13:31:21 08/19/19 25 08/18/2024 [facility] [place] [address] panel - Serum or Plasm a bilirubin.to christian [mass/volume ] in serum or plasma 0.4 mg/dL low: 0.2mg/ dLhigh : 1.2mg/ dL Not Available Not Available 08/25/2024 13:31:21 08/19/19 25 08/18/2024 [facility] [place] [address] panel - Serum or Plasm a aspartate aminotransfe rase [enzymatic activity/vol ume] in serum or plasma 36 U/L high: 43U/L Not Available Not Available 08/25/2024 13:31:21 08/19/19 25 08/18/2024 [facility] [place] [address] panel - Serum or Plasm a alanine aminotransfe rase [enzymatic activity/vol ume] in serum or plasma 36 U/L high: 56U/L Not Available Not Available 08/25/2024 13:31:21 08/19/19 25 08/18/2024 [facility] [place] [address] panel - Serum or Plasm a alkaline [...] bilat eral No observ ation record ed. [facility] (Radiology) [address] [place], [address], 01/27/2023 10:06:53 01/25/20 23 01/24/2023 US, breas t, unila teral No observ ation record ed. [address], [address], 01/27/2023 10:06:54 Result Notes None recorded. Problems Name Problem SNOMED Code Status Onset Date Resolution Date Notes Provider Name and Address Organization Details Recorded Time Abnormal 73292861 Active 023 TOBIAS Rodriguez [place] [facility] 09:16:46 Problem Notes None recorded. Procedures Surgical History Date Name Laterality Status Provider Name and Address Organization Details Recorded Time 01/22/20 Endometrial Biopsy completed JOSEY Clark Attn: [address] [place], [address], [place] [facility] 01/21/2023 12:07:45 10/12/19 22 [...] Name and Address Organization Details Recorded Time 699910 honey bee venom medicatio n Not available Not available Not available 01/06/2023 01305 7 RxNorm Selena Tang RMA null, [place] - [facility] 3 08:57:17 800817 meclizine medicatio n swelling Not available Not available 01/06/2023 6676 RxNorm Selena Tang R[place], [place] [facility] 3 08:57:35 244069 Toradol medicatio n rash Not available Not available 01/06/2023 40594 RxNorm Selena Tang, R[place] [facility] 3 08:57:56 020970 acetamino phen / guaifenes in / phenyleph rine medicatio n Not available Not available Not available 01/06/2023 88866 8 RxNorm Selena Tang, [place] [facility] 3 08:59:14 419757 Non-stero idal anti-infl ammatory agent (substanc e) medicatio n Not available Not available Not available 01/06/2023 76298 5008 SNOMED Selena Tang RMA [place], [place] [facility] 3 08:59:28 213147 cephalexi n medicatio n itching Not available Not available 01/06/2023 2231 RxNorm Selena Tang, [place] [facility] 3 08:59:44 855335 duloxetin e medicatio n Not available Not available Not available 01/06/2023 93861 RxNorm Selena Tang, R[place], [place] - [...] Updated DateTime 01/06/2023 162.56 cm 27.3 kg/m2 86031.19 g 124/82 mm[Hg] TOBIAS Rodriguez [facility] 01/06/2023 09:16:26 Date Recorded Body height Body mass index (BMI) Body weight Systolic And Diastolic Provider Name and Address Organization Details Last Updated DateTime 01/21/2023 162.56 cm 27.5 kg/m2 39604.78 g 105/68 mm[Hg] TOBIAS Rodriguez [facility] 01/21/2023 11:53:58 Social History Question Answer Notes LastModified by Organizat ion Details LastModified Time Tobacco Smoking Status Former Smoker TOBIAS Rodriguez [facility] 01/06/2023 08:49:25 What Is Your Level Of [...] available 01/06 09:18:06 Medical History Condition Response High Blood Pressure Y Anemia Y Diabetes Y Gynecological History Statement/Question Response If Post Menopausal, Age at Menopause 48 LMP Sexually Active? Y Obstetrics History GPAL:G 2 P 0 2 0 0 Type Value Premature 2 Living 0 Total 2 Past Encounters Encounter ID Performer Location Encounter Start Date Encounter Closed Date Diagnosis/Indication Diagnosis SNOMED-CT Code Diagnosis ICD10 Code Diagnosis IMO Codes Diagnosis Note [id number] Osmin Rider MD [place] [address] [facility] [address] [place] [address] 01/06/2023 08:49:23 01/07/2023 08:57:30 Postmenopausal bleeding 93963058 N95.0 Pap completed. Pelvic US showed small fibroid. CBC negative of anemia in ER. Pt educated on need for EMB. Pt educated on risks. Pt verbalized understand ing and schedule EMB. pt educated on importance of follow up. Uterine leiomyoma 639221 05 D25.9 Discussed management options. pt undecided. Routine gy necologic examination done 7048773725 9191 Z01.419 -Educated on the importance of SBE [...] depression on PHQ-9 (Patient Health Questionnaire 9) 6135976729 61742 Z13.31 Pt educated on resources. Pt notified to follow up with her counselor and psychiatri st. Pt educated on importance of follow up. Pt given Er precaution s. Mass of left breast 1224 088944 5758226 N63.20 Imaging ordered. pt educated on importance of follow up. Body mass index 25-29 - overweight 874002286 Z68.27 Pt educated on risks and importance of lifestyle modificati ons. Pt reports will continue to follow up with PCP. [id number] Osmin Rider MD [place] [address] [facility] [address] [place] [address] 01/21/2023 11:24:46 01/22/2023 08:46:46 Abnormal uterine bleeding 4668205481 9100 N93.9 EMB completed. Pt educated on after care and precaution s. Discussed management options for bleeding. Pt not interested in medical management and would be interest in surgical options. Referral ordered. pt educated on importance of follow up. Pt reminded to complete blood work from last visit. pt notified to call office if issues occur. Uterine leiomyoma 531376 05 D25.9 Discussed management options for bleeding. Pt not interested in medical management and would be interest in surgical options. Pt opts for referral to [facility]. Referral ordered. pt educated on importance of follow up. Health Concerns Section Related Observation LastModified by Organization Detai ls LastModified Time None Recorded Concern Status LastModified by Organization Details LastModified Time None Recorded Advance Directives Directive None Recorded Payers Insurance Date Sequence Insurance Name Policy Number Policy Singh Covered Member ID Singh Member ID Guarantor Name 04/08/2024 [place] [facility] Bonny Sutton [id number] Bonny Sutton 04/08/2024 2 *SELF PAY* Virginia Sutton 04/08/2024 3 [place] Bonny Sutton [id number] Bonny Sutton 05/17/2024 1 [place] Bonny Sutton [id number] Bonny Sutton 04/08/2024 1 [facility] - DOS ON OR AFTER 20 (MEDICAID REPLACEMENT - HMO) Bonny Sutton [id number] Bonny Sutton 02/09/2024 2 [place] Bonny Sutton [id number] Bonny Sutton 02/09/2024 2 [place] Bonny Sutton [id number] Bonny Sutton Notes Date Note Type Note Provider Name and Address Organization Details Recorded Time 3 text/html Breast MassReported by PatientHPIFor location, patient reportsleftandlower inner quadrant. For onset/timing, patient reports1-4 months. For duration, patient reportsintermittent. For associated symptoms, patient reportsno fever,no skin redness,no nipple discharge,no breast swelling,no arm pain,no arm swelling, andno chest pain. For quality, (tender at times). 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 01/06/2023 10:40:33 3 text/html Pt is here for EMB for abnormal bleeding. pt reports bleeding has stopped. pt denies any complaints. JOSEY Clark Attn: Accounting,[address], [place], [address], [facility] 01/21/2023 12:52:46 OBGyn Episode No OBEpisode recorded.
--- OUTSIDE RECORDS SUMMARY | 2025-02-04 11:12 | XMS_ITS | Encounter Summary ---
Author Organization [facility] Address [address] [place] [address] Phone Care Team Providers Care Plastic Design Applier Name Role Phone Jackeline Dimas CARBON PAPER COATING SUPERVISOR, LAWYER REAL ESTATE Primary Care Provider Fiona Martinez FRONT OFFICE MANAGER Unavailable Unavailab Phil Ellis MD Unavailable [phone] Rajiv Mccormack NP Unavailable Unavailable Renita Quezada RN Unavailable Unavailable Alize Acosat CARBON PAPER COATING SUPERVISOR, LAWYER REAL ESTATE Unavailable +[phone] Dayo Chaney MD Unavailable Juanita Hauser RN Unavailable Unavaila David Martinez MD Unavailable Emilia Tang MD Primary Care Provider [phone] Maurilio Farley MD Unavailable Physician, Candida Davis MD Unavailable Rebeka Trinidad MD Primary Care Provider + [phone] oDm Quiñonez MD Unavailable Rachelle Nava CARBON PAPER COATING SUPERVISOR, REFRIGERATION BRAZER/SOLDERER Unavailable + [phone] Irais Naylor CARBON PAPER COATING SUPERVISOR, LAWYER REAL ESTATE Unavailable + [phone] Lorri Leo CARBON PAPER COATING SUPERVISOR, LAWYER REAL ESTATE Primary Care Provider + [phone] Rebeka Trinidad MD Primary Care Provider [phone] Lorri Leo CARBON PAPER COATING SUPERVISOR, [facility] Primary Care Provider [phone] Sharri Gaspar MD Unavailable Tani Biggs Primary Care Provider + [phone] Amber Aldrich CARBON PAPER COATING SUPERVISOR, LAWYER REAL ESTATE Unavailable Reason for Visit * Reason Comments Medication Refill Encounter Details Date Type Department Care Team (Late st Contact Info) Description 05/09/2021 Refill [facility] - Family Medicine [facility] [address] [place] [address] Jackeline Dimas, CARBON PAPER COATING SUPERVISOR, [facility] [address] [place] [address] Medication Refill Social History Tobacco Use Types [...] 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 No / Unsure 05/07/2021 2:03 PM PSYCHOLOGICAL STRESS EVALUATOR documented as of this encounter Functional Status documented as of this encounter Mental Status * Question Answer Entry Date Author Has the patient fallen twice in the past year without injury or once in the past year with injury? No 05/09/2021 1:39 PM PSYCHOLOGICAL STRESS EVALUATOR Charity Quezada RN Does the patient report or d o you observe difficulty in gait or balance? Yes 05/09/2021 1:39 PM PSYCHOLOGICAL STRESS EVALUATOR Renita Quezada RN * Question Answer Entry Date Author Initial Score 1 05/09/2021 1:54 PM PSYCHOLOGICAL STRESS EVALUATOR Renita Gomez RN documented in this encounter Plan of Treatment Upcoming Encounters Date Type Department Care Team (Late st Contact Info) Description 02/21/2025 1:00 PM PSYCHOLOGICAL STRESS EVALUATOR Telemedicine [facility] [address] [place] [address] 02/21/2025 3:45 PM PSYCHOLOGICAL STRESS EVALUATOR Office Visit [facility] #[address] [place] [address] David Salmon MD #[address] [address] 02/24/2025 3:30 PM PSYCHOLOGICAL STRESS EVALUATOR Telemedicine [facility] [address] [place] [address] [phone] Alize Acosta, CARBON PAPER COATING SUPERVISOR, LAWYER REAL ESTATE [address] [place] [address] 03/04/2025 3:10 PM PSYCHOLOGICAL STRESS EVALUATOR Lab [facility] Primary Care - [place] [address] [place] [address] 03/07/2025 2:15 PM PSYCHOLOGICAL STRESS EVALUATOR Office Visit [facility] Primary Care - [place] [address] [place] [address] Tani Biggs PAC [address] [place] [address] 03/17/2025 1:30 PM PSYCHOLOGICAL STRESS EVALUATOR [facility] [address] [place] [phone] Melony Asif August, PAC [address] [place] [address] Discharge Disposition: Discharged to home or Selfcare 03/25/2025 1:20 PM PSYCHOLOGICAL STRESS EVALUATOR Office Visit [facility] Oncology Services [address] [place] [address] Melony Asif August, PAC [address] [place] [address] Discharge Disposition: Discharged to home or Selfcare 04/25/2025 2:00 PM PSYCHOLOGICAL STRESS EVALUATOR Office Visit [facility] - Cardiology - [place] [address] [place] [address] Laisha Griffin, DO [address] [address] 07/18/2025 1:00 PM CDT Office Visit [facility] - Pulmonology & Sleep Medicine [facility] [address] [place] [address] Dom Quiñonez MD #2 [place] [address] documented as of this encounter Goals Goal [...] 19 04/18/2024 04/18/2024 04/18/2024 10:4 7 PM PSYCHOLOGICAL STRESS EVALUATOR Respiratory Rule-Out 05/06/2024 05/06/2024 025 9:20 AM PSYCHOLOGICAL STRESS EVALUATOR COVID - 19 05/06/2024 05/06/2024 05/06/2024 9:19 AM PSYCHOLOGICAL STRESS EVALUATOR Assessment Noted Time PHQ-9 Depression Total Score: 0 09/01/19 20 11:58 AM CDT documented as of this encounter Care Teams Plastic Design Applier Relationship Specialty Start Date End Date Jackeline Dimas, RUSSELL, LAWYER REAL ESTATE [address] [place] [address] PCP - General Advanced Practice Nurse 07/31/17 Emilia Tang MD [address] [place] [address] PCP - General Family Medicine 06/07/22 03/25/23 Rebeka Trinidad MD [address] [place] [address] PCP - General Family Medicine 03/26/23 03/29/24 Lorri Leo APRN, LAWYER REAL ESTATE [address] [place] [address] PCP - General Certified Nurse Practitioner 03/30/24 04/20/24 Rebeka Trinidad MD [address] [place] [address] PCP - General Family Medicine 04/21/24 04/21/24 Lorri Leo APRN, LAWYER REAL ESTATE [address] [place] [address] PCP - General Certified Nurse Practitioner 04/22/24 05/30/24 Tani Biggs, [facility] [address] [place] [address] PCP - General Physician Rubber Goods Tester Water 05/31/24 Fiona Martinez LSW [place] Senior It Business Analyst 03/01/21 08/23/21 Phil Jacobo MD #2 [place] [address] Consulting Physician Neurology 03/07/21 Rajiv Mccormack, SENIOR LEAD PROJECT MANAGER #[address] [place] [address] Nurse Practitioner Gastroenterology 03/07/21 Renita Quezada, [place] Senior It Business Analyst 05/09/21 08/23/21 Alize Acosta APRN, LAWYER REAL ESTATE [facility] [place] [address] Virtual Advanced Care (VAC) 21 DEALER Advanced Practice Nurse 08/30/21 Dayo Chaney MD [address] [place] [address] Interpreter Translator Cardiovascular Disease - Cardiology 09/20/21 02/12/24 Juanita Mercado, [place] Registered Nurse Cardiology 12/24/21 02/12/24 David Salmon MD #[address] [address] Consulting Physician Endocrinology 01/15/22 Maurilio Farley MD #[address] [address] Consulting Physician Colon and Rectal Surgery 09/20/22 PhysicianCandida MD [address] [place] [address] Family Medicine 01/25/22 03/18/23 Dom Quiñonez MD #2 [place] [address] Consulting Physician Pulmonary Disease 11/19/21 Rachelle Nava APRN, REFRIGERATION BRAZER/SOLDERER #[address] [place] [address] Nurse Practitioner Advanced Practice Nurse 07/19/22 Irais Naylor APRN, LAWYER REAL ESTATE #[address] [address] Nurse Practitioner Cardiology 06/27/23 07/29/24 Sharri Gaspar MD [address] [address] Consulting Physician Cardiology 04/26/24 Amber Aldrich APRN, LAWYER REAL ESTATE [address] [place] [address] Nurse Practitioner Cardiology 07/30/24 documented as of this encounter
--- OUTSIDE RECORDS SUMMARY | 2025-02-04 11:12 | XMS_ITS | Encounter Summary ---
Author Organization [facility] Address [address] [place] [address] Phone Care Team Providers Care Elementary Teacher Name Role Phone Phil Jacobo MD Unavailable [phone] Rajiv Mccormack DINNER COOK Unavailable Unavailable Alize Acosta REFURBISH TECHNICIAN, EXTERNAL GRINDER TENDER Unavailable Dayo Chaney MD Unavailable Juanita Hauser RN Unavailable Unavaila David Martinez MD Unavailable Emilia Tang MD Primary Care Provider [phone] Maurilio Farley MD Unavailable PhysicianCandida MD Unavailable Rebeka Trinidad MD Primary Care Provider + [phone] Dom Quiñonez MD Unavailable Rachelle Nava REFURBISH TECHNICIAN, MONUMENT CARVER Unavailable + [phone] Irais Naylor REFURBISH TECHNICIAN, EXTERNAL GRINDER TENDER Unavailable + [phone] Lorri Leo REFURBISH TECHNICIAN, EXTERNAL GRINDER TENDER Primary Care Provider + [phone] Rebeka Trinidad MD Primary Care Provider + [phone] AhmetAngélicamando Littlejohn REFURBISH TECHNICIAN, EXTERNAL GRINDER TENDER Primary Care Provider + [phone] Sharri Gaspar MD Unavailable Tani Biggs PAC Primary Care Provider + [phone] Amber Aldrich REFURBISH TECHNICIAN, EXTERNAL GRINDER TENDER Unavailable Reason for Visit * Reason Comments Medication Refill Encounter Details Date Type Department Care Team (Late st Contact Info) Description 09/09/2022 Refill [facility] - Endocrinology - [place] [address] [place] [address] David Salmon MD #[address] [address] Medication Refill Social History Tobacco [...] 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 No / Unsure 09/06/2022 8:44 AM CDT documented as of this encounter Miscellaneous Notes * Telephone Encounter - Yesi Leggett RN - 09/09/2022 9:10 AM CDT Requested Prescriptions Pending Prescriptions Disp Refills ??? glimepiride (AMARYL) 2 MG Tablet [Pharmacy Med Name: GLIMEPIRIDE 2MG TABLETS] 180 Tablet 1 Sig: TAKE 2 TABLETS BY MOUTH EVERY MORNING Next appt: 10/31/2022 documented in this encounter Plan of Treatment Upcoming Encounters Date Type Department Care Team (Late st Contact Info) Description 02/21/2025 1:00 PM HAUL TRUCK DRIVER [facility]icine [facility] [address] [place] [address] 02/21/2025 3:45 PM HAUL TRUCK DRIVER Office Visit [facility] Endocrinology [facility] [address] [place] [address] David Salmon MD #[address] [address] 02/24/2025 3:30 PM HAUL TRUCK DRIVER [facility]medicine [facility] [address] [place] [address] Alize Acosta, REFURBISH TECHNICIAN, EXTERNAL GRINDER TENDER [address] [place] [address] 03/04/2025 3:10 PM HAUL TRUCK DRIVER [facility] [place] [address] [place] [address] 03/07/2025 2:15 PM HAUL TRUCK DRIVER Office Visit [facility] Primary [facility] [place] [address] [place] [address] Tani Biggs PAC [address] [place] [address] 03/17/2025 1:30 PM HAUL TRUCK DRIVER [facility] [address] [place] [address] Melony Asif August, PAC [address] [place] [address] Discharge Disposition: Discharged to home or Selfcare 03/25/2025 1:20 PM HAUL TRUCK DRIVER Office Visit [facility] Oncology Services [address] [place] [address] Melony Asif August, PAC [address] [place] [address] Discharge Disposition: Discharged to home or Selfcare 04/25/2025 2:00 PM HAUL TRUCK DRIVER Office Visit [facility] - Cardiology - [place] [address] [place] [address] Laisha Griffin, DO [address] [address] 07/18/2025 1:00 PM CDT Office Visit [facility] - Pulmonology & Sleep Medicine [facility] [address] [place] [address] Dom Quiñonez MD [address] [place] [address] documented as of this encounter Goals Goal [...] diet Depression Depression Improving(0 03/15/2022 2:27 PM HAUL TRUCK DRIVER) No Breanne Saldana, POWER SUPERINTENDENT Note: Goal/Objective: Decrease symptoms of depression associated [...] 19 04/18/2024 04/18/2024 04/18/2024 10:4 7 PM HAUL TRUCK DRIVER Respiratory Rule-Out 05/06/2024 05/06/2024 025 9:20 AM HAUL TRUCK DRIVER COVID - 19 05/06/2024 05/06/2024 05/06/2024 9:19 AM HAUL TRUCK DRIVER Assessment Noted Time PHQ-9 Depression Total Score: 24 022 3:31 PM HAUL TRUCK DRIVER documented as of this encounter Care Teams Elementary Teacher Relationship Specialty Start Date End Date Emilia Tang MD [address] [place] [address] PCP - General Family Medicine 06/07/22 03/25/23 Rebeka Trinidad MD [address] [place] [address] PCP - General Family Medicine 03/26/23 03/29/24 Lorri Leo APRN, EXTERNAL GRINDER TENDER [address] [place] [address] PCP - General Certified Nurse Practitioner 03/30/24 04/20/24 Rebeka Trinidad MD [address] [place] [address] PCP - General Family Medicine 04/21/24 04/21/24 Lorri Leo APRN, EXTERNAL GRINDER TENDER [address] [place] [address] PCP - General Certified Nurse Practitioner 04/22/24 05/30/24 Tani Biggs, PAC [address] [place] [address] PCP - General Physician Mold Machine Operator 05/31/24 Phil Jacobo MD #[address] [place] [address] Consulting Physician Neurology 03/07/21 Rajiv Mccormack, DINNER COOK [address] [place] [address] Nurse Practitioner Gastroenterology 03/07/21 Alize Acosta, REFURBISH TECHNICIAN, EXTERNAL GRINDER TENDER [address] [place] [address] Virtual Advanced Care (VAC) RESTAURANT KITCHEN MANAGER Advanced Practice Nurse 08/30/21 Dayo Chaney MD [address] [place] [address] Electrical Contractor Cardiovascular Disease - Cardiology 09/20/21 02/12/24 Juanita Mercado, [place] Registered Nurse Cardiology 12/24/21 02/12/24 David Salmon MD #[address] [address] Consulting Physician Endocrinology 01/15/22 Maurilio Farley MD #[address] [address] Consulting Physician Colon and Rectal Surgery 09/20/22 PhysicianCandida MD [address] [place] [address] Family Medicine 01/25/22 03/18/23 Dom Quiñonez MD #2 [facility] [address] Consulting Physician Pulmonary Disease 11/19/21 Rachelle Nava, REFURBISH TECHNICIAN, MONUMENT CARVER [address] [place] [address] Nurse Practitioner Advanced Practice Nurse 07/19/22 Irais Naylor, REFURBISH TECHNICIAN, EXTERNAL GRINDER TENDER #2 [facility] [address] [place] [address] Nurse Practitioner Cardiology 06/27/23 07/29/24 Sharri Gaspar MD 2 [facility] [address] [place] [address] Consulting Physician Cardiology 04/26/24 Ambre Aldrich, REFURBISH TECHNICIAN, EXTERNAL GRINDER TENDER [address] [place] [address] Nurse Practitioner Cardiology 07/30/24 documented as of this encounter
--- OUTSIDE RECORDS SUMMARY | 2025-02-04 11:12 | XMS_ITS | Encounter Summary ---
Author Organization [facility] Address [address] [place] [address] Phone Care Team Providers Care Tool And Die Maker Apprentice Name Role Phone Jackeline Dimas ACUTE CARE PHYSICAL THERAPIST, SALES REPRESENTATIVES Primary Care Provider Fiona Martinez OPERATING SYSTEM DESIGNER Unavailable Unavailab Phil Ellis MD Unavailable [phone] Rajiv Mccormack NP Unavailable Unavailable Renita Quezada RN Unavailable Unavailable Alize Acosta ACUTE CARE PHYSICAL THERAPIST, SALES REPRESENTATIVES Unavailable Dayo Chaney MD Unavailable Juanita Hauser RN Unavailable Unavaila David Martinez MD Unavailable Emilia Tang MD Primary Care Provider [phone] Maurilio Farley MD Unavailable Physician, Candida Davis MD Unavailable Rebeka Trinidad MD Primary Care Provider + [phone] Dom Quiñonez MD Unavailable Rachelle Nava ACUTE CARE PHYSICAL THERAPIST, SHOCK ABSORPTION FLOOR LAYER Unavailable + [phone] Irais Naylor ACUTE CARE PHYSICAL THERAPIST, SALES REPRESENTATIVES Unavailable + [phone] Lorri Leo ACUTE CARE PHYSICAL THERAPIST, [facility] Primary Care Provider + [phone] Rebeka Trinidad MD Primary Care Provider [phone] Lorri Leo ACUTE CARE PHYSICAL THERAPIST, [facility] Primary Care Provider [phone] Sharri Gaspar MD Unavailable Tani Biggs Primary Care Provider + [phone] Amber Aldrich ACUTE CARE PHYSICAL THERAPIST, [facility] Unavailable Reason for Visit * Reason Comments Medication Refill Encounter Details Date Type Department Care Team (Late st Contact Info) Description 07/12/2020 Refill [facility] - Primary Care - [place] [address] [place] [address] Jackeline Dimas ACUTE CARE PHYSICAL THERAPIST, [facility] [address] [place] [address] Medication Refill Social History Tobacco [...] 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 Not [...] st Contact Info) Description 02/21/2025 1:00 PM FIELD CASHIER Telemedicine [facility] [address] [place] [address] 02/21/2025 3:45 PM FIELD CASHIER Office Visit [facility] Medical [facility] - Endocrinology [facility] #[address] [place] [address] David Salmon MD #[address] [address] 02/24/2025 3:30 PM FIELD CASHIER Telemedicine [facility] [address] [place] [address] Alize Acosta, ACUTE CARE PHYSICAL THERAPIST, SALES REPRESENTATIVES [address] [place] [address] 03/04/2025 3:10 PM FIELD CASHIER Lab [facility] - [place] [address] [place] [address] 03/07/2025 2:15 PM FIELD CASHIER Office Visit [facility] Primary [facility] - [place] [address] [place] [address] Tani Biggs, ESTRELLITA [address] [place] [address] 03/17/2025 1:30 PM FIELD CASHIER [facility] [address] [place] [address] Melony Asif PAC [address] [place] [address] Discharge Disposition: Discharged to home or Selfcare 03/25/2025 1:20 PM FIELD CASHIER [facility] [address] [place] [address] Melony Asif Stacey, PAC [address] [place] [address] Discharge Disposition: Discharged to home or Selfcare 04/25/2025 2:00 PM FIELD CASHIER Office Visit [facility] - Cardiology [facility] [address] [place] [address] Laisha Griffin, DO [address] [address] 07/18/2025 1:00 PM CDT Office Visit [facility] Pulmonology & Sleep Medicine [facility] [address] [place] [address] Dom Quiñonez MD #[address] [place] [address] documented as of this encounter Visit Diagnoses Not on filedocumented in this encounter Additional Health Concerns Infection Onset Date Last Indicated Resolved Time COVID - 19 01/08/2021 01/08/2021 01/28/2021 12:1 6 AM FIELD CASHIER COVID - 19 03/12/2021 03/12/2021 04/01/2021 12:1 6 AM FIELD CASHIER COVID - 19 12/15/2021 12/15/2021 12/15/2021 7:26 PM CDT COVID - 19 Confirmed 12/15/2021 12/15/2021 022 12:16 AM CDT COVID - 19 04/18/2024 04/18/2024 04/18/2024 10:4 7 PM FIELD CASHIER Respiratory Rule-Out 05/06/2024 05/06/2024 025 9:20 AM FIELD CASHIER COVID - 19 05/06/2024 05/06/2024 05/06/2024 9:19 AM FIELD CASHIER Assessment Noted Time PHQ-9 Depression Total Score: 0 09/01/19 20 11:58 AM CDT documented as of this encounter Care Teams Tool And Die Maker Apprentice Relationship Specialty Start Date End Date Jackeline Dimas APRN, SALES REPRESENTATIVES [address] [place] [address] PCP - General Advanced Practice Nurse 07/31/17 Emilia Tang MD [address] [place] [address] PCP - General Family Medicine 06/07/22 03/25/23 Rebeka Trinidad MD [address] [place] [address] PCP - General Family Medicine 03/26/23 03/29/24 Lorri Leo APRN, SALES REPRESENTATIVES [address] [place] [address] PCP - General Certified Nurse Practitioner 03/30/24 04/20/24 Rebeka Trinidad MD [address] [place] [address] PCP - General Family Medicine 04/21/24 04/21/24 Lorri Leo APRN, SALES REPRESENTATIVES [address] [place] [address] PCP - General Certified Nurse Practitioner 04/22/24 05/30/24 Tani Biggs PAC [address] [place] [address] PCP - General Physician Joint Cutter 05/31/24 Fiona Martinez, MARSHA [place] 03/01/21 08/23/21 Phil Jacobo MD #[address] [place] [address] Consulting Physician Neurology 03/07/21 Rajiv Mccormack, KELI [address] [place] [address] Nurse Practitioner Gastroenterology 03/07/21 Renita Quezada, RN [place] 05/09/21 08/23/21 Alize Acosta, ACUTE CARE PHYSICAL THERAPIST, SALES REPRESENTATIVES [address] [place] [address] Virtual Advanced Care (VAC) RESTAURANT TEAM MEMBER Advanced Practice Nurse 08/30/21 Dayo Chaney MD [address] [place] [address] Dtp Operator Cardiovascular Disease - Cardiology 09/20/21 02/12/24 Juanita Mercado RN [place] Registered Nurse Cardiology 12/24/21 02/12/24 David Salmon MD #[address] [address] Consulting Physician Endocrinology 01/15/22 Maurilio Farley MD #[address] [address] Consulting Physician Colon and Rectal Surgery 09/20/22 Physician, Candida Davis MD [address] [place] [address] Family Medicine 01/25/22 03/18/23 Dom Quiñonez MD #[address] [facility] [address] Consulting Physician Pulmonary Disease 11/19/21 Rachelle Nava, ACUTE CARE PHYSICAL THERAPIST, SHOCK ABSORPTION FLOOR LAYER [address] [place] [address] Nurse Practitioner Advanced Practice Nurse 07/19/22 Irais Naylor, ACUTE CARE PHYSICAL THERAPIST, SALES REPRESENTATIVES #2 [facility] [address] [place] [address] Nurse Practitioner Cardiology 06/27/23 07/29/24 Sharri Gaspar MD 2 [facility] [address] [place] [address] Consulting Physician Cardiology 04/26/24 Amber Aldrich APRN, SALES REPRESENTATIVES #[address] [place] [address] Nurse Practitioner Cardiology 07/30/24 documented as of this encounter
--- OUTSIDE RECORDS SUMMARY | 2025-02-04 11:12 | XMS_ITS | Encounter Summary ---
Author Organization [facility] Address [address] [place] [address] Phone Care Team Providers Care Engineer Sergeant Name Role Phone Jackeline Dimas BANQUET SERVER ON CALL, RN ONCOLOGY RESEARCH Primary Care Provider Phil Jacobo MD Unavailable [phone] Rajiv Mccormack NP Unavailable Unavailable Alize Acosta BANQUET SERVER ON CALL, RN ONCOLOGY RESEARCH Unavailable Dayo Chaney MD Unavailable Juanita Hauser RN Unavailable UnavailDavid Alexandre MD Unavailable Emilia Tang MD Primary Care Provider [phone] Maurilio Farley MD Unavailable Physician, Candida Davis MD Unavailable Rebeka Trinidad MD Primary Care Provider + [phone] Dom Quiñonez MD Unavailable Rachelle Nava BANQUET SERVER ON CALL, IT SECURITY ANALYST Unavailable + [phone] Irais Naylor BANQUET SERVER ON CALL, RN ONCOLOGY RESEARCH Unavailable + [phone] Lorri Leo BANQUET SERVER ON CALL, RN ONCOLOGY RESEARCH Primary Care Provider + [phone] Rebeka Trinidad MD Primary Care Provider + [phone] Lorri Leo BANQUET SERVER ON CALL, [facility] Primary Care Provider + [phone] Sharri Gaspar MD Unavailable Tani Biggs [facility] Primary Care Provider [phone] Amber Aldrich BANQUET SERVER ON CALL, [facility] Unavailable Reason for Visit * Reason Comments Medication Refill Encounter Details Date Type Department Care Team (Late st Contact Info) Description 11/08/2021 Refill [facility] - Primary Care - [place] [address] [place] [address] Jackeline Dimas APRN, [facility] [address] [place] [address] Medication Refill Social History Tobacco [...] 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 Not [...] st Contact Info) Description 02/21/2025 1:00 PM RN CAMP Telemedicine [facility] [address] [place] [address] 02/21/2025 3:45 PM RN CAMP Office Visit [facility] Endocrin[facility] #[address] [place] [address] David Salmon MD #[address] [address] 02/24/2025 3:30 PM RN CAMP Telemedicine [facility] [address] [place] [address] Aliez Acosta, BANQUET SERVER ON CALL, RN ONCOLOGY RESEARCH [address] [place] [address] 03/04/2025 3:10 PM RN CAMP [facility] - [address] [address] [place] [address] 03/07/2025 2:15 PM RN CAMP Office [facility] Primary Care - [place] [address] [place] [address] Tani Biggs PAC [address] [place] [address] 03/17/2025 1:30 PM RN CAMP [facility] [address] [place] [address] Melony Asif PAC [address] [place] [address] Discharge Disposition: Discharged to home or Selfcare 03/25/2025 1:20 PM RN CAMP Office Visit [facility] Oncology Services [address] [place] [address] Melony Asif Stacey, PAC [address] [place] [address] Discharge Disposition: Discharged to home or Selfcare 04/25/2025 2:00 PM RN CAMP Office Visit [facility] Cardiology - [place] [address] [place] [address] Laisha Griffin, DO [address] [address] 07/18/2025 1:00 PM CDT Office Visit [facility] Pulmonology & Sleep Medicine [facility] [address] [place] [address] Dom Quiñonez MD #2 [place] [address] documented as of this encounter Goals Goal [...] 04/18/2024 04/18/2024 04/18/2024 10:4 7 PM RN CAMP Respiratory Rule-Out 05/06/2024 05/06/2024 025 9:20 AM RN CAMP COVID - 19 05/06/2024 05/06/2024 05/06/2024 9:19 AM RN CAMP Assessment Noted Time PHQ-9 Depression Total Score: 0 09/01/19 20 11:58 AM CDT documented as of this encounter Care Teams Engineer Sergeant Relationship Specialty Start Date End Date Jackeline Dimas APRN, RN ONCOLOGY RESEARCH [address] [place] [address] PCP - General Advanced Practice Nurse 07/31/17 Emilia Tang MD [address] [place] [address] PCP - General Family Medicine 06/07/22 03/25/23 Rebeka Trinidad MD [address] [place] [address] PCP - General Family Medicine 03/26/23 03/29/24 Lorri Leo APRN, RN ONCOLOGY RESEARCH [address] [address] PCP - General Certified Nurse Practitioner 03/30/24 04/20/24 Rebeka Trinidad MD [address] [place], [place] [id number] PCP - General Family Medicine 04/21/24 04/21/24 Lorri Leo APRN, RN ONCOLOGY RESEARCH [address] [place], [place] [id number] PCP - General Certified Nurse Practitioner 04/22/24 05/30/24 Tani Biggs PAC [address] [place] [address] PCP - General Physician Animal Impersonator 05/31/24 Phil Jacobo MD #[address] [place] [address] Consulting Physician Neurology 03/07/21 Rajiv Mccormack, KELI [address] [place] [address] Nurse Practitioner Gastroenterology 03/07/21 Alize Acosta APRN, RN ONCOLOGY RESEARCH [address] [place] [address] Virtual [facility] (VAC) GRINDING SUPERVISOR Advanced Practice Nurse 08/30/21 Dayo Chaney MD [address] [place] [address] Head Of History Cardiovascular Disease - Cardiology 09/20/21 02/12/24 Juanita Mercado RN [place] Registered Nurse Cardiology 12/24/21 02/12/24 David Salmon MD #[address] [phone] Consulting Physician Endocrinology 01/15/22 Maurilio Farley MD #[address] [address] Consulting Physician Colon and Rectal Surgery 09/20/22 PhysicianCandida MD [address] [place] [address] Family Medicine 01/25/22 03/18/23 Dom Quiñonez MD #2 [place] [address] Consulting Physician Pulmonary Disease 11/19/21 Rachelle Nava APRN, IT SECURITY ANALYST #[address] [place] [address] Nurse Practitioner Advanced Practice Nurse 07/19/22 Irais Naylor APRN, RN ONCOLOGY RESEARCH #[address] [address] Nurse Practitioner Cardiology 06/27/23 07/29/24 Sharri Gaspar MD [address] [address] Consulting Physician Cardiology 04/26/24 Amber Aldrich APRN, RN ONCOLOGY RESEARCH #[address] [place] [address] Nurse Practitioner Cardiology 07/30/24 documented as of this encounter
--- OUTSIDE RECORDS SUMMARY | 2025-02-04 11:13 | XMS_ITS | Encounter Summary ---
Author Organization [facility] Address [address] [place] [address] Phone Care Team Providers Care Printing Film Stripper Name Role Phone Jackeline Dimas INSURANCE CLAIMS ANALYST, SIZE CUTTER Primary Care Provider Fiona Martinez BANK TELLER Unavailable Unavailab Phil Ellis MD Unavailable [phone] Rajiv Mccormack NP Unavailable Unavailable Renita Quezada RN Unavailable Unavailable Alize Acosta INSURANCE CLAIMS ANALYST, SIZE CUTTER Unavailable Dayo Chaney MD Unavailable Juanita Hauser RN Unavailable Unavaila David Martinez MD Unavailable Emilia Tang MD Primary Care Provider [phone] Maurilio Farley MD Unavailable Physician, Candida Davis MD Unavailable Rebeka Trinidad MD Primary Care Provider + [phone] Dom Quiñonez MD Unavailable Rachelle Nava INSURANCE CLAIMS ANALYST, MANAGER TECHNOLOGY Unavailable + [phone] Irais Naylor INSURANCE CLAIMS ANALYST, SIZE CUTTER Unavailable + [phone] Lorri Leo INSURANCE CLAIMS ANALYST, SIZE CUTTER Primary Care Provider + [phone] Rebeka Trinidad MD Primary Care Provider [phone] Lorri Leo INSURANCE CLAIMS ANALYST, [facility] Primary Care Provider [phone] Sharri Gaspar MD Unavailable Tani Biggs Primary Care Provider + [phone] Amber Aldrich INSURANCE CLAIMS ANALYST, [facility] Unavailable Reason for Visit * Reason Comments Medication Refill Encounter Details Date Type Department Care Team (Late st Contact Info) Description 09/25/2020 Refill [facility] - Primary Care - [place] [address] [place] [address] Jackeline Dimas INSURANCE CLAIMS ANALYST, [facility] [address] [place] [address] Medication Refill Social History Tobacco [...] 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 [...] was discontinued on 08/24/2020 by Jackeline Dimas, MAP MOUNTER, SIZE CUTTER for the following reason: Alternate therapy documented in this encounter Plan of Treatment Upcoming Encounters Date Type Department Care Team (Late st Contact Info) Description 02/21/2025 1:00 PM INDUSTRIAL COMMERCIAL GROUNDSKEEPER Telemedicine [facility] [address] [place] [address] [phone] 02/21/2025 3:45 PM INDUSTRIAL COMMERCIAL GROUNDSKEEPER Office Visit [facility] - Endocrinology [facility] #[address] [place] [address] David Salmon MD #[address] [address] 02/24/2025 3:30 PM INDUSTRIAL COMMERCIAL GROUNDSKEEPER Telemedicine [facility] [address] [place] [address] Alize Acosta, INSURANCE CLAIMS ANALYST, SIZE CUTTER [address] [place] [address] 03/04/2025 3:10 PM INDUSTRIAL COMMERCIAL GROUNDSKEEPER Lab [facility] Primary Care - [place] [address] [place] [address] 03/07/2025 2:15 PM INDUSTRIAL COMMERCIAL GROUNDSKEEPER Office Visit [facility] Primary Care - [place] [address] [place] [address] Tani Biggs PAC [address] [place] [address] 03/17/2025 1:30 PM INDUSTRIAL COMMERCIAL GROUNDSKEEPER [facility] [address] [place] [address] Melony Asif PAC [address] [place] [address] Discharge Disposition: Discharged to home or Selfcare 03/25/2025 1:20 PM INDUSTRIAL COMMERCIAL GROUNDSKEEPER [facility] [address] [place] [address] Melony Asif Stacey, PAC [address] [place] [address] Discharge Disposition: Discharged to home or Selfcare 04/25/2025 2:00 PM INDUSTRIAL COMMERCIAL GROUNDSKEEPER Office Visit [facility] - Cardiology - [place] [address] [place] [address] Laisha Griffin, DO [address] [address] 07/18/2025 1:00 PM CDT Office Visit [facility] - Pulmonology & Sleep Medicine [facility] [address] [place] [address] Dom Quiñonez MD #[address] [place] [address] documented as of this encounter Visit Diagnoses Diagnosis Hypertension, essential Unspecified essential hypertension documented in this encounter Additional Health Concerns Infection Onset Date Last Indicated Resolved Time COVID - 19 01/08/2021 01/08/2021 01/28/2021 12:1 6 AM INDUSTRIAL COMMERCIAL GROUNDSKEEPER COVID - 19 03/12/2021 03/12/2021 04/01/2021 12:1 6 AM INDUSTRIAL COMMERCIAL GROUNDSKEEPER COVID - 19 12/15/2021 12/15/2021 12/15/2021 7:26 PM CDT COVID - 19 Confirmed 12/15/2021 12/15/2021 022 12:16 AM CDT COVID - 19 04/18/2024 04/18/2024 04/18/2024 10:4 7 PM INDUSTRIAL COMMERCIAL GROUNDSKEEPER Respiratory Rule-Out 05/06/2024 05/06/2024 025 9:20 AM INDUSTRIAL COMMERCIAL GROUNDSKEEPER COVID - 19 05/06/2024 05/06/2024 05/06/2024 9:19 AM INDUSTRIAL COMMERCIAL GROUNDSKEEPER Assessment Noted Time PHQ-9 Depression Total Score: 0 09/01/19 20 11:58 AM CDT documented as of this encounter Care Teams Printing Film Stripper Relationship Specialty Start Date End Date Jackeline Dimas APRN, SIZE CUTTER [address] [place] [address] PCP - General Advanced Practice Nurse 07/31/17 Emilia Tang MD [address] [place] [address] PCP - General Family Medicine 06/07/22 03/25/23 Rebeka Trinidad MD [address] [place] [address] PCP - General Family Medicine 03/26/23 03/29/24 Lorri Leo APRN, SIZE CUTTER [address] [place] [address] PCP - General Certified Nurse Practitioner 03/30/24 04/20/24 Rebeka Trinidad MD [address] [place] [address] PCP - General Family Medicine 04/21/24 04/21/24 Lorri Leo APRN, SIZE CUTTER [address] [place] [address] PCP - General Certified Nurse Practitioner 04/22/24 05/30/24 Tani Biggs, PAC [address] [place] [address] PCP - General Physician Locomotive Switch Operator 05/31/24 Fiona Martinez LSW [place] Chyron Operator 03/01/21 08/23/21 Phil Jacobo MD #[address] [place] [address] Consulting Physician Neurology 03/07/21 Rajiv Mccormack, 21 DEALER [address] [place] [address] Nurse Practitioner Gastroenterology 03/07/21 Renita Quezada RN MD Chyron Operator 05/09/21 08/23/21 Alize Acosta, INSURANCE CLAIMS ANALYST, SIZE CUTTER [address] [place] [address] Virtual Advanced Care (VAC) MAP MOUNTER Advanced Practice Nurse 08/30/21 Dayo Chaney MD [address] [place] [address] Orthopaedic Doctor Cardiovascular Disease - Cardiology 09/20/21 02/12/24 Juanita Mercado, [place] Registered Nurse Cardiology 12/24/21 02/12/24 David Salmon MD #[address] [address] Consulting Physician Endocrinology 01/15/22 Maurilio Farley MD #[address] [address] Consulting Physician Colon and Rectal Surgery 09/20/22 Physician, Candida Davis MD [address] [place] [address] Family Medicine 01/25/22 03/18/23 Dom Quiñonez MD #2 [facility] [place] [address] Consulting Physician Pulmonary Disease 11/19/21 Rachelle Nava APRN, MANAGER TECHNOLOGY #[address] [place] [address] Nurse Practitioner Advanced Practice Nurse 07/19/22 Irais Naylor APRN, SIZE CUTTER #[address] [address] Nurse Practitioner Cardiology 06/27/23 07/29/24 Sharri Gaspar MD 2 [facility] [address] [address] Consulting Physician Cardiology 04/26/24 Amber Aldrich APRN, SIZE CUTTER [address] [place] [address] Nurse Practitioner Cardiology 07/30/24 documented as of this encounter
--- OUTSIDE RECORDS SUMMARY | 2025-02-04 11:13 | XMS_ITS | Encounter Summary ---
Author Organization [facility] Address [address] [place] [address] Phone Care Team Providers Care Manager Scientific Name Role Phone Phil Jacobo MD Unavailable [phone] Rajiv Mccormack HARNESS INSPECTOR Unavailable Unavailable Alize Acosta APRN, JOB ORDER CLERK Unavailable [phone] Dayo Chaney MD Unavailable Juanita Hauser RN Unavailable UnavailDavid Alexandre MD Unavailable Maurilio Farley MD Unavailable Rebeka Trinidad MD Primary Care Provider + [phone] Dom Quiñonez MD Unavailable Rachelle Nava RIVERBOAT MASTER, LIME BOILER Unavailable + [phone] Irais Naylor RIVERBOAT MASTER, JOB ORDER CLERK Unavailable + [phone] Lorri Leo RIVERBOAT MASTER, JOB ORDER CLERK Primary Care Provider + [phone] Rebeka Trinidad MD Primary Care Provider + [phone] Lorri Leo RIVERBOAT MASTER, JOB ORDER CLERK Primary Care Provider + [phone] Sharri Gaspar MD Unavailable Tani Biggs [facility] Primary Care Provider + [phone] Amber Aldrich APRN, CNP Unavailable Reason for Visit * Reason Comments Medication Refill Encounter Details Date Type Department Care Team (Late st Contact Info) Description 07/18/2023 Refill [facility] - Primary Care - [place] [address] [place] [address] Rebeka Trinidad MD [address] [place] [address] Medication Refill Social History Tobacco Use Types Packs/Day Years Used Date Smoking Tobacco: Former Cigarettes 1 37.1 1 985 - 04/12/2021 Smokeless Tobacco: Never Alcohol Use Standard Drinks/Week Comments Not Currently 0 (1 standard drink = 0.6 oz pur e alcohol) last drank 2020 [facility] Utilities Answer Date Recorded In the past 12 months has [employer], gas, oil, or water Gertrude threatened to shut off services in your home? No 03/24/2023 Social Connection and Isolation Panel Answer Date Recorded In a typical week, how many times do you talk on the phone with family, friends, or neighbors? Once a week 03/24/2023 How often do you get togethe r with friends or relatives? Never 03/24/2023 How often do you attend [facility] or confucianism services? More than 4 times per year 03/24/2023 Do you belong to any clubs o r organizations such as amish groups, unions, fraternal or athletic groups, or [...] Total Score - Questions 1-9 18 10/10 [facility] - Occupational Stress Questionnaire Answer Date Recorded [...] place to sleep or slept in a mcfp (including now)? 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 documented in this encounter Plan of Treatment Upcoming Encounters Date Type Department Care Team (Late st Contact Info) Description 02/21/2025 1:00 PM SUPERVISOR CD AREA Telemedicine [facility] [address] [place] [address] [phone] 02/21/2025 3:45 PM SUPERVISOR CD AREA Office Visit [facility] - Endocrinology - [place] [address] [place] [address] David Salmon MD #[address] [address] 02/24/2025 3:30 PM SUPERVISOR CD AREA Telemedicine [facility] [address] [place] [address] Alize Acosta, RIVERBOAT MASTER, JOB ORDER CLERK [address] [place] [address] 03/04/2025 3:10 PM SUPERVISOR CD AREA [facility] - [address] [address] [place] [address] 03/07/2025 2:15 PM SUPERVISOR CD AREA Office Visit [facility] - Primary Care - [place] [address] [place] [address] Tani Biggs, [facility] [address] [place] [address] 03/17/2025 1:30 PM SUPERVISOR CD AREA Lab [facility] Oncology Services [address] [place] [address] Melony Asif On License Of [facility], [facility] [address] [place] [address] Discharge Disposition: Discharged to home or Selfcare 03/25/2025 1:20 PM SUPERVISOR CD AREA Office Visit [facility] Oncology Services [address] [place] [address] Melony Asif On License Of [facility], [facility] [address] [place] [address] Discharge Disposition: Discharged to home or Selfcare 04/25/2025 2:00 PM SUPERVISOR CD AREA Office Visit [facility] - Cardiology - [place] [address] [place] [address] Laisha Griffin, DO [address] [address] 07/18/2025 1:00 PM CDT Office Visit [facility] - Pulmonology & Sleep Medicine [facility] #[address] [place] [address] Dom Quiñonez MD [address] [place] [address] documented as of this encounter Goals Goal Patient Goal Type Associated Problems Recent Progress Patient-Stated? Author ACTIVITY Activity No change(08/08 2:42 PM CDT) Yes Maritza Vanegas, RN Note: Bonny will walk five days a week. Goal Reviewed with: Bonny Readiness to change: Department associated with goal: [facility] Steps to achieve goal: Walking 5 days a week I want to be able to be around people and feel less depressed. Behavioral Health Worsening(0 09/22/2023 3:12 PM CDT) Yes Hilda Tinajero [facility] Note: Goal/Objective: Decrease symptoms [...] Depression Depression Improving(0 03/15/2022 2:27 PM SUPERVISOR CD AREA) No Breanne Saldana, FINISHER TAILOR APPRENTICE Note: Goal/Objective: Decrease symptoms of depression [...] 04/18/2024 04/18/2024 04/18/2024 10:4 7 PM SUPERVISOR CD AREA Respiratory Rule-Out 05/06/2024 05/06/2024 025 9:20 AM SUPERVISOR CD AREA COVID - 19 05/06/2024 05/06/2024 05/06/2024 9:19 AM SUPERVISOR CD AREA Assessment Noted Time PHQ-9 Depression Total Score: 18 023 9:24 AM CDT documented as of this encounter Care Teams Manager Scientific Relationship Specialty Start Date End Date Rebeka Trinidad MD [address] [place] [address] PCP - General Family Medicine 03/26/23 03/29/24 Lorri Leo APRN, JOB ORDER CLERK [address] [place] [address] PCP - General Certified Nurse Practitioner 03/30/24 04/20/24 Rebeka Trinidad MD [address] [place] [address] PCP - General Family Medicine 04/21/24 04/21/24 Lorri Leo APRN, JOB ORDER CLERK [address] [place] [address] PCP - General Certified Nurse Practitioner 04/22/24 05/30/24 Tani Biggs, PAC [address] [place] [address] PCP - General Physician City Controller 05/31/24 Phil Jacobo MD [address] [place] [address] Consulting Physician Neurology 03/07/21 Rajiv Mccormack, KELI [address] [place] [address] Nurse Practitioner Gastroenterology 03/07/21 Alize Acosta, RIVERBOAT MASTER, JOB ORDER CLERK [address] [place] [address] Virtual [facility] Care (VAC) CORPORATE SERVICES MANAGER Advanced Practice Nurse 08/30/21 Dayo Chaney MD [address] [place] [address] Business Asst Cardiovascular Disease - Cardiology 09/20/21 02/12/24 Juanita Mercado RN [place] Registered Nurse Cardiology 12/24/21 02/12/24 David Salmon MD #[address] [address] Consulting Physician Endocrinology 01/15/22 Maurilio Farley MD #[address] [address] Consulting Physician Colon and Rectal Surgery 09/20/22 Dom Quiñonez MD #[address] [place] [address] Consulting Physician Pulmonary Disease 11/19/21 Rachelle Nava APRN, LIME BOILER [address] [place] [address] Nurse Practitioner Advanced Practice Nurse 07/19/22 Irais Naylor APRN, JOB ORDER CLERK #2 [facility] [address] [place] [address] Nurse Practitioner Cardiology 06/27/23 07/29/24 Sharri Gaspar MD 2 [facility] [address] [place] [address] Consulting Physician Cardiology 04/26/24 Amber Aldrich APRN, JOB ORDER CLERK [address] [place] [address] Nurse Practitioner Cardiology 07/30/24 documented as of this encounter
--- OUTSIDE RECORDS SUMMARY | 2025-02-04 11:13 | XMS_ITS | Encounter Summary ---
Author Organization [facility] Address [address] [place] [address] Phone Care Team Providers Care Certified Financial Planner Name Role Phone Jackeline Dimas SPRAY MACHINE TENDER, REFRIGERATOR CABINETMAKER Primary Care Provider Phil Jacobo MD Unavailable [phone] Rajiv Mccormack NP Unavailable Unavailable Alize Acosta SPRAY MACHINE TENDER, REFRIGERATOR CABINETMAKER Unavailable Dayo Chaney MD Unavailable Juanita Hauser RN Unavailable UnavailDavid Alexandre MD Unavailable Emilia Tang MD Primary Care Provider [phone] Maurilio Farley MD Unavailable Physician, Candida Davis MD Unavailable Rebeka Trinidad MD Primary Care Provider + [phone] Dom Quiñonez MD Unavailable Rachelle Nava SPRAY MACHINE TENDER, STORE MANAGEMENT TRAINEE Unavailable + [phone] Irais Naylor SPRAY MACHINE TENDER, REFRIGERATOR CABINETMAKER Unavailable + [phone] Lorri Leo SPRAY MACHINE TENDER, REFRIGERATOR CABINETMAKER Primary Care Provider + [phone] Rebeka Trinidad MD Primary Care Provider + [phone] Lorri Leo SPRAY MACHINE TENDER, [facility] Primary Care Provider + [phone] Sharri Gaspar MD Unavailable Tani Biggs [facility] Primary Care Provider [phone] Amber Aldrich SPRAY MACHINE TENDER, [facility] Unavailable Reason for Visit * Reason Comments Medication Refill Encounter Details Date Type Department Care Team (Late st Contact Info) Description 01/13/2022 Refill [facility] - Primary Care - [place] [address] [place] [address] Jackeline Dimas APRN, [facility] [address] [place] [address] Medication Refill Social History Tobacco [...] 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 Unable to assess 01/16/2022 3:15 PM CHAINSTITCH HEMMER documented as of this encounter Functional Status documented as of this encounter Mental Status * Question Answer Entry Date Author Initial Score 6 01/15/2022 3:31 PM CHAINSTITCH HEMMER Alize Tsang APRN, REFRIGERATOR CABINETMAKER documented in this encounter Miscellaneous Notes * Telephone Encounter - Elizabeth Cabrales, RN - 01/14/2022 10:14 AM CST Medication was discontinued on 11/13/21 NSTITCH HEMMER documented in this encounter Plan of Treatment Upcoming Encounters Date Type Department Care Team (Late st Contact Info) Description 02/21/2025 1:00 PM CHAINSTITCH HEMMER Telemedicine [facility] [address] [place] [address] 02/21/2025 3:45 PM CHAINSTITCH HEMMER Office Visit [facility] [address] [place] [address] David Salmon MD #[address] [address] 02/24/2025 3:30 PM CHAINSTITCH HEMMER Telemedicine [facility] [address] [place] [address] Alize Acosta APRN, REFRIGERATOR CABINETMAKER [address] [place] [address] 03/04/2025 3:10 PM CHAINSTITCH HEMMER [facility] [place] [address] [place] [address] 03/07/2025 2:15 PM CHAINSTITCH HEMMER Office Visit [facility] Primary Care - [place] [address] [place] [address] Tani Biggs PAC [address] [place] [address] 03/17/2025 1:30 PM CHAINSTITCH HEMMER [facility] [address] [place] [address] Melony Asif August, PAC [address] [place] [address] Discharge Disposition: Discharged to home or Selfcare 03/25/2025 1:20 PM CHAINSTITCH HEMMER Office Visit [facility] Oncology Services [address] [place] [address] Melony Asif Stacey, PAC [address] [place] [address] Discharge Disposition: Discharged to home or Selfcare 04/25/2025 2:00 PM CHAINSTITCH HEMMER Office Visit [facility] - Cardiology - [place] [address] [place] [address] Laisha Griffin, DO [address] [address] 07/18/2025 1:00 PM CDT Office Visit [facility] - Pulmonology & Sleep Medicine [facility] #[address] [place] [address] Dom Quiñonez MD [address] [place] [address] documented as of this encounter Goals Goal [...] as recommended. Depression Depression Improving( 2:27 PM CHAINSTITCH HEMMER) No Breanne Saldana, SANDEEP Note: Goal/Objective: Decrease [...] 19 04/18/2024 04/18/2024 04/18/2024 10:4 7 PM CHAINSTITCH HEMMER Respiratory Rule-Out 05/06/2024 05/06/2024 025 9:20 AM CHAINSTITCH HEMMER COVID - 19 05/06/2024 05/06/2024 05/06/2024 9:19 AM CHAINSTITCH HEMMER Assessment Noted Time PHQ-9 Depression Total Score: 0 09/01/19 20 11:58 AM CDT documented as of this encounter Care Teams Certified Financial Planner Relationship Specialty Start Date End Date Jackeline Dimas, SPRAY MACHINE TENDER, REFRIGERATOR CABINETMAKER [address] [place] [address] PCP - General Advanced Practice Nurse 07/31/17 Emilia Tang MD [address] [place] [address] PCP - General Family Medicine 06/07/22 03/25/23 Rebeka Trinidad MD [address] [place] [address] PCP - General Family Medicine 03/26/23 03/29/24 Lorri Leo SPRAY MACHINE TENDER, REFRIGERATOR CABINETMAKER [address] [place] [address] PCP - General Certified Nurse Practitioner 03/30/24 04/20/24 Rebeka Trinidad MD [address] [place] [address] PCP - General Family Medicine 04/21/24 04/21/24 Lorri Leo SPRAY MACHINE TENDER, REFRIGERATOR CABINETMAKER [address] [place] [address] PCP - General Certified Nurse Practitioner 04/22/24 05/30/24 Tani Biggs [facility] [address] [place] [address] PCP - General Physician Service Delivery Analyst 05/31/24 Phil Jacobo MD [address] [place] [address] Consulting Physician Neurology 03/07/21 Rajiv Mccormack, KELI [address] [place] [address] Nurse Practitioner Gastroenterology 03/07/21 Alize Acosta, SPRAY MACHINE TENDER, REFRIGERATOR CABINETMAKER [address] [place] [address] Virtual Advanced Care (VAC) LOGISTIC SPECIALIST Advanced Practice Nurse 08/30/21 Dayo Chaney MD [address] [place] [address] Forming Yardage Control Operator Cardiovascular Disease - Cardiology 09/20/21 02/12/24 Juanita Mercado RN [place] Registered Nurse Cardiology 12/24/21 02/12/24 David Salmon MD #[address] [address] Consulting Physician Endocrinology 01/15/22 Maurilio Farley MD #[address] [address] Consulting Physician Colon and Rectal Surgery 09/20/22 Physician, Candida Davis MD [address] [place] [address] Family Medicine 01/25/22 03/18/23 Dom Quiñonez MD #[address] [place] [address] Consulting Physician Pulmonary Disease 11/19/21 Rachelle Nava APRN, STORE MANAGEMENT TRAINEE #[address] [place] [address] Nurse Practitioner Advanced Practice Nurse 07/19/22 Irais Naylor APRN, REFRIGERATOR CABINETMAKER #2 [facility] [address] [place] [address] Nurse Practitioner Cardiology 06/27/23 07/29/24 Sharri Gaspar MD [address], [address]. [address] [place] [address] Consulting Physician Cardiology 04/26/24 Amber Aldrich APRN, REFRIGERATOR CABINETMAKER #2 [facility] [place] [address] Nurse Practitioner Cardiology 07/30/24 documented as of this encounter
--- OUTSIDE RECORDS SUMMARY | 2025-02-04 11:13 | XMS_ITS | Encounter Summary ---
Author Organization [facility] Address [address] [place] [address] Phone Care Team Providers Care Delivery Department Supervisor Name Role Phone Phil Jacobo MD Unavailable [phone] Rajiv Mccormack SALES SOLUTIONS REPRESENTATIVE Unavailable Unavailable Alize Acosta APRN, LOAN INTERVIEWER Unavailable [phone] Dayo Chaney MD Unavailable Juanita Hauser RN Unavailable UnavailaDvid Alexandre MD Unavailable Maurilio Farley MD Unavailable Rebeka Trinidad MD Primary Care Provider + [phone] Dom Quiñonez MD Unavailable Rachelle Nava HORSE DOCTOR, SCHOOL CLEANER Unavailable + [phone] Irais Naylor HORSE DOCTOR, LOAN INTERVIEWER Unavailable + [phone] Lorri Leo HORSE DOCTOR, LOAN INTERVIEWER Primary Care Provider + [phone] Rebeka Trinidad MD Primary Care Provider + [phone] Lorri Leo HORSE DOCTOR, LOAN INTERVIEWER Primary Care Provider + [phone] Sharri Gaspar MD Unavailable Tani Biggs [facility] Primary Care Provider [phone] Amber Aldrich APRN, CNP Unavailable Reason for Visit * Reason Comments Medication Refill Encounter Details Date Type Department Care Team (Late st Contact Info) Description 06/20/2023 Refill [facility] - Endocrinology - [place] [address] [place] [address] David Salmon MD [address] [address] Medication Refill Social History Tobacco Use Types Packs/Day Years Used Date Smoking Tobacco: Former Cigarettes 1 37.1 1 985 - 04/12/2021 Smokeless Tobacco: Never Alcohol Use Standard Drinks/Week Comments Not Currently 0 (1 standard drink = 0.6 oz pur e alcohol) last drank 2020 [facility] Utilities Answer Date Recorded In the past 12 months has [employer] electric, gas, oil, or water [employer] threatened to shut off services in your home? No 03/24/2023 Social Connection and Isolation Panel Answer Date Recorded In a typical week, how many times do you talk on the phone with family, friends, or neighbors? Once a week 03/24/2023 How often do you get togethe r with friends or relatives? Never 03/24/2023 How often do you attend [facility] or bahai services? More than 4 times per year 03/24/2023 Do you belong to any clubs o r organizations such as spiritism groups, unions, fraternal or athletic groups, or [...] Score - Questions 1-9 18 10/10 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 documented in this encounter Plan of Treatment Upcoming Encounters Date Type Department Care Team (Late st Contact Info) Description 02/21/2025 1:00 PM INTERNETWORKING TECHNICIAN Telemedicine [facility] [address] [place] [address] 02/21/2025 3:45 PM INTERNETWORKING TECHNICIAN Office Visit [facility] Medical [facility] - Endocrinology - [place] [address] [place] [address] David Salmon MD #[address] [address] 02/24/2025 3:30 PM INTERNETWORKING TECHNICIAN Telemedicine [facility] [address] [place] [address] Alize Acosta, HORSE DOCTOR, LOAN INTERVIEWER [address] [place] [address] 03/04/2025 3:10 PM INTERNETWORKING TECHNICIAN [facility] [place] [address] [place] [address] 03/07/2025 2:15 PM INTERNETWORKING TECHNICIAN [facility] [place] [address] [place] [address] Tani Biggs, PAC [address] [place] [address] 03/17/2025 1:30 PM INTERNETWORKING TECHNICIAN [facility] [address] [place] [address] Melony Asif Stacey, [facility] [address] [place] [address] Discharge Disposition: Discharged to home or Selfcare 03/25/2025 1:20 PM INTERNETWORKING TECHNICIAN [facility] [address] [place] [address] Melony Asif Stacey, [facility] [address] [place] [address] Discharge Disposition: Discharged to home or Selfcare 04/25/2025 2:00 PM INTERNETWORKING TECHNICIAN Office Visit [facility] - Cardiology - [place] [address] [place] [address] Laisha Griffin, DO [address] [address] 07/18/2025 1:00 PM CDT [facility] - [place] [address] [place] [address] Dom Quiñonez MD [address] [place] [address] documented as of this encounter Goals Goal Patient Goal Type Associated Problems Recent Progress Patient-Stated? Author ACTIVITY Activity No change(08/08 2:42 PM CDT) Yes Maritza Vanegas, RN Note: Bonny will walk five days a week. Goal Reviewed with: Bonny Readiness to change: Department associated with goal: [facility] Steps to achieve goal: Walking 5 days a week I want to be able to be around people and feel less depressed. Behavioral Health Worsening(0 09/22/2023 3:12 PM CDT) Yes Hilda Tinajero [facility] Note: Goal/Objective: Decrease symptoms of depression and anxiety. Anticipated Time Frame for Goal Completion: 3 months Goal Reviewed with: patient Readiness to change: Thinking about making a change Department associated with goal: [facility] Steps to [...] 2:27 PM INTERNETWORKING TECHNICIAN) No Breanne Saldana, COMPANY DOCTOR Note: Goal/Objective: Decrease symptoms of depression associated [...] 025 9:20 AM INTERNETWORKING TECHNICIAN COVID - 19 05/06/2024 05/06/2024 05/06/2024 9:19 AM INTERNETWORKING TECHNICIAN Assessment Noted Time PHQ-9 Depression Total Score: 18 023 9:24 AM CDT documented as of this encounter Care Teams Delivery Department Supervisor Relationship Specialty Start Date End Date Rebeka Trinidad MD [address] [place] [address] PCP - General Family Medicine 03/26/23 03/29/24 Lorri Leo APRN, LOAN INTERVIEWER [address] [place] [address] PCP - General Certified Nurse Practitioner 03/30/24 04/20/24 Rebeka Trinidad MD [address] [place] [address] PCP - General Family Medicine 04/21/24 04/21/24 Lorri Leo APRN, LOAN INTERVIEWER [address] [place] [address] PCP - General Certified Nurse Practitioner 04/22/24 05/30/24 Tani Biggs, PAC [address] [place] [address] PCP - General Physician Tooth Cutter Spur 05/31/24 Phil Jacobo MD [address] [place] [address] Consulting Physician Neurology 03/07/21 Rajiv Mccormack, KELI [address] [place] [address] Nurse Practitioner Gastroenterology 03/07/21 Alize Acosta APRN, LOAN INTERVIEWER [address] [place] [address] Virtual Advanced Care (VAC) WAISTLINE JOINER OVERLOCK Advanced Practice Nurse 08/30/21 Dayo Chaney MD [address] [place] [address] Certified Legal Secretary Specialist Cardiovascular Disease - Cardiology 09/20/21 02/12/24 Juanita Mercado RN [place] Registered Nurse Cardiology 12/24/21 02/12/24 David Salmon MD #[address] [address] Consulting Physician Endocrinology 01/15/22 Maurilio Farley MD #[address] [id number] Consulting Physician Colon and Rectal Surgery 09/20/22 Dom Quiñonez MD #[address] [place] [address] Consulting Physician Pulmonary Disease 11/19/21 Rachelle Nava APRN, SCHOOL CLEANER #[address] [place] [address] Nurse Practitioner Advanced Practice Nurse 07/19/22 Irais Naylor HORSE DOCTOR, LOAN INTERVIEWER #2 [email or web address] [address] [place] [address] Nurse Practitioner Cardiology 06/27/23 07/29/24 Sharri Gaspar MD 2 [facility] [place] [facility] [address] [place] [address] Consulting Physician Cardiology 04/26/24 Amber Aldrich APRN, LOAN INTERVIEWER #[address] [place] [address] Nurse Practitioner Cardiology 07/30/24 documented as of this encounter
--- OUTSIDE RECORDS SUMMARY | 2025-02-04 11:13 | XMS_ITS | Encounter Summary ---
Author Organization [facility] Address [address] [place] [address] Phone Care Team Providers Care Delivery And Mail Sorter Name Role Phone Jackeline Dimas FUNERAL HOME ASSOCIATE, TRIMMING MACHINE OPERATOR Primary Care Provider Phil Jacobo MD Unavailable [phone] Rajiv Mccormack NP Unavailable Unavailable Alize Acosta FUNERAL HOME ASSOCIATE, TRIMMING MACHINE OPERATOR Unavailable Dayo Chaney MD Unavailable Juanita Hauser RN Unavailable UnavailDavid Alexandre MD Unavailable Emilia Tang MD Primary Care Provider [phone] Maurilio Farley MD Unavailable Physician, Candida Davis MD Unavailable Rebeka Trinidad MD Primary Care Provider + [phone] Dom Quiñonez MD Unavailable Rachelle Nava FUNERAL HOME ASSOCIATE, TANK TENDER Unavailable + [phone] Irais Naylor FUNERAL HOME ASSOCIATE, TRIMMING MACHINE OPERATOR Unavailable + [phone] Lorri Leo FUNERAL HOME ASSOCIATE, TRIMMING MACHINE OPERATOR Primary Care Provider + [phone] Rebeka Trinidad MD Primary Care Provider + [phone] Lorri Leo FUNERAL HOME ASSOCIATE, [facility] Primary Care Provider + [phone] Sharri Gaspar MD Unavailable Tani Biggs [facility] Primary Care Provider [phone] Amber Aldrich APRN, [facility] Unavailable Reason for Visit * Reason Comments Medication Refill Encounter Details Date Type Department Care Team (Late st Contact Info) Description 04/01/2022 Refill [facility] - Endocrinology - [place] [address] [place] [address] David Salmon MD #[address] [address] Medication Refill Social History Tobacco [...] Industry Job Start Date Job End Date [employer] Not on file Not on file Not on 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 No / Unsure 04/04/2022 4:01 PM ACETONE BUTTON PASTER documented as of this encounter Miscellaneous Notes * Telephone Encounter - Yesi Leggett RN - 04/01/2022 1:19 PM ACETONE BUTTON PASTER Requested Prescriptions Pending Prescriptions Disp Refills ??? Glucose Blood (OneTouch Verio) Strip [Pharmacy Med Name: ONE TOUCH VERIO TEST ST(NEW)100S] 200 Strip Sig: TEST BLOOD SUGAR TWICE DAILY Next appt: 04/30/2022 ONE BUTTON PASTER documented in this encounter Plan of Treatment Upcoming Encounters Date Type Department Care Team (Late st Contact Info) Description 02/21/2025 1:00 PM ACETONE BUTTON PASTER Telemedicine [facility] [address] [place] [address] 02/21/2025 3:45 PM ACETONE BUTTON PASTER Office Visit [facility] #[address] [place] [address] David Salmon MD #[address] [phone] 02/24/2025 3:30 PM ACETONE BUTTON PASTER [facility]medicine [facility] [address] [place] [address] Alize Acosta, RUSSELL, TRIMMING MACHINE OPERATOR [address] [place] [address] 03/04/2025 3:10 PM ACETONE BUTTON PASTER [facility] [place] [address] [place] [address] 03/07/2025 2:15 PM ACETONE BUTTON PASTER Office Visit [facility] Primary Care - [place] [address] [place] [address] Tani Biggs PAC [address] [place] [address] 03/17/2025 1:30 PM ACETONE BUTTON PASTER [facility] [address] [place] [address] Melony Asif August, PAC [address] [place] [address] Discharge Disposition: Discharged to home or Selfcare 03/25/2025 1:20 PM ACETONE BUTTON PASTER Office Visit [facility] Oncology Services [address] [place] [address] Melony Asif August, PAC [address] [place] [address] Discharge Disposition: Discharged to home or Selfcare 04/25/2025 2:00 PM ACETONE BUTTON PASTER Office Visit [facility] Medical [facility] - Cardiology - [place] [address] [place] [address] Laihsa Griffin, DO [address] [address] 07/18/2025 1:00 PM CDT Office Visit [facility] - Pulmonology & Sleep Medicine [facility] #[address] [place] [address] Dom Quiñonez MD #[address] [place] [address] documented as of this encounter Goals Goal Patient Goal Type Associated Problems Recent Progress Patient-Stated? Author Chronic Disease Management Chronic Disease Management Improving( 2:39 PM CDT) Renita Spann, SEBASTIAN Note: [...] as recommended. Depression Depression Improving( 2:27 PM ACETONE BUTTON PASTER) No Breanne Saldana LCSW Note: Goal/Objective: Decrease [...] 19 04/18/2024 04/18/2024 04/18/2024 10:4 7 PM ACETONE BUTTON PASTER Respiratory Rule-Out 05/06/2024 05/06/2024 025 9:20 AM ACETONE BUTTON PASTER COVID - 19 05/06/2024 05/06/2024 05/06/2024 9:19 AM ACETONE BUTTON PASTER Assessment Noted Time PHQ-9 Depression Total Score: 24 022 3:31 PM ACETONE BUTTON PASTER documented as of this encounter Care Teams Delivery And Mail Sorter Relationship Specialty Start Date End Date Jackeline Dimas, FUNERAL HOME ASSOCIATE, TRIMMING MACHINE OPERATOR [address] [place] [address] PCP - General Advanced Practice Nurse 07/31/17 Emilia Tang MD [address] [place] [address] PCP - General Family Medicine 06/07/22 03/25/23 Rebeka Trinidad MD [address] [place] [address] PCP - General Family Medicine 03/26/23 03/29/24 Lorri Leo APRN, TRIMMING MACHINE OPERATOR [address] [place] [address] PCP - General Certified Nurse Practitioner 03/30/24 04/20/24 Rebeka Trinidad MD [address] [place] [address] PCP - General Family Medicine 04/21/24 04/21/24 Lorri Leo FUNERAL HOME ASSOCIATE, TRIMMING MACHINE OPERATOR [address] [place] [address] PCP - General Certified Nurse Practitioner 04/22/24 05/30/24 Tani Biggs PAC [address] [place] [address] PCP - General Physician Retail Seasonal Specialist 05/31/24 Phil Jacobo MD #[address] [place] [address] Consulting Physician Neurology 03/07/21 Rajiv Mccormack, KELI [address] [place] [address] Nurse Practitioner Gastroenterology 03/07/21 Alize Acosta, FUNERAL HOME ASSOCIATE, TRIMMING MACHINE OPERATOR [address] [place], [place] [address] Virtual Advanced Care (VAC) C 40A CREW CHIEF Advanced Practice Nurse 08/30/21 Dayo Chaney MD [address] [place] [address] Contact Worker Lithography Cardiovascular Disease - Cardiology 09/20/21 02/12/24 Juanita Mercado RN [place] Registered Nurse Cardiology 12/24/21 02/12/24 David Salmon MD #[address] [address] Consulting Physician Endocrinology 01/15/22 Maurilio Farley MD #[address] [address] Consulting Physician Colon and Rectal Surgery 09/20/22 Physician, Candida Davis MD [address] [place] [address] Family Medicine 01/25/22 03/18/23 Dom Quiñonez MD #[address] [place] [address] Consulting Physician Pulmonary Disease 11/19/21 Rachelle Nava APRN, TANK TENDER #[address] [place] [address] Nurse Practitioner Advanced Practice Nurse 07/19/22 Irais Naylor APRN, TRIMMING MACHINE OPERATOR #2 [facility] [address] [place] [address] Nurse Practitioner Cardiology 06/27/23 07/29/24 Sharri Gaspar MD [address], [address]. [address] [place] [address] Consulting Physician Cardiology 04/26/24 Amber Aldrich APRN, TRIMMING MACHINE OPERATOR #[address] [place] [address] Nurse Practitioner Cardiology 07/30/24 documented as of this encounter
--- OUTSIDE RECORDS SUMMARY | 2025-02-04 11:13 | XMS_ITS | Encounter Summary ---
Author Organization [facility] Address [address] [place] [address] Phone Care Team Providers Care Inclined Railway Operator Name Role Phone Phil Jacobo MD Unavailable [phone] Rajiv Mccormack SIZE CUTTER Unavailable Unavailable Alize Acosta APRN, RAW SHELLFISH PREPARER Unavailable David Salmon MD Unavailable Maurilio Farley MD Unavailable Dom Quiñonez MD Unavailable Rachelle Nava APRN, HR INTERNSHIP Unavailable + [phone] Sharri Gaspar MD Unavailable Tani Biggs PAC Primary Care Provider Amber Aldrich TELEPRINTER INSTALLER, RAW SHELLFISH PREPARER Unavailable Reason for Visit * Reason Onset Date Comments Hypertension 02/04/2025 Encounter Details Date Type Department Care Team (Late st Contact Info) Description 02/04/2025 Telephone [facility] [address] [place] [address] Ayla Conte, RN [place] Hypertension Social History Tobacco Use Types Packs/Day Years Used Date Smoking Tobacco: Some Days Cigarettes 1 37.1 Started: 1984; Last attempted to quit: 04/12/2021 Passive Smoke Exposure: Never Smokeless Tobacco: Never Alcohol Use Standard Drinks/Week Comments Not Currently 0 (1 standard drink = 0.6 oz pur e alcohol) Last drink in 2020 [facility] Utilities Answer Date Recorded In the [...] often do you attend chur ch or quaker services? 1 to 4 times per year [...] Total Score - Questions 1-9 24 07/2024 [facility] [place] of Occupat ional Health - Occupational Stress [...] any time in the past 12 m [facility], were you homeless or living in a snf (including now)? No 03/22/2024 Education Answer Date Recorded What is the highest level of school you have completed or the highest degree you have received? 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 Patient is enrolled in the [facility]. Patient answered phone. Introduced self to patient and stated reason for call. Situation: CURRENT HEALTH yellow alert for HTN Background: patient report she is currently at the hospital getting ordered x-rays. Assessment: See assessment below. BP-146/91 P-93 [id number] Recommendation and Plan: patient will recheck blood pressure when she returns home. See care advice and disposition. Navigate to Review Flowsheets and open OCAC Patient Reported Current Health Vitals to view patient vitals. E COMMERCE MERCHANDISING COORDINATOR documented in this encounter Plan of Treatment Upcoming Encounters Date Type Department Care Team (Late st Contact Info) Description 02/21/2025 1:00 PM E COMMERCE MERCHANDISING COORDINATOR Telemedicine [facility] [address] [place] [address] 02/21/2025 3:45 PM E COMMERCE MERCHANDISING COORDINATOR Office Visit [facility] Medical [facility] - Endocrinology - [address] [address] [place] [address] David Salmon MD #[address] [phone] 02/24/2025 3:30 PM E COMMERCE MERCHANDISING COORDINATOR Telemedicine [facility] [address] [place] [address] Alize Acosta APRN, RAW SHELLFISH PREPARER [address] [place] [address] 03/04/2025 3:10 PM E COMMERCE MERCHANDISING COORDINATOR Lab [facility] Medical [facility] - Primary Care - [place] [facility] [place] [phone] 03/07/2025 2:15 PM E COMMERCE MERCHANDISING COORDINATOR Office Visit [facility] - Primary Care - [place] [address] [place] [phone] Tani Biggs PAC [address] [place] [address] 03/17/2025 1:30 PM E COMMERCE MERCHANDISING COORDINATOR [facility] [address] [place] [phone] Melony Asif, PAC [address] [place] [address] Discharge Disposition: Discharged to home or Selfcare 03/25/2025 1:20 PM E COMMERCE MERCHANDISING COORDINATOR [facility] [address] [place] [address] Melony Asif, PAC [address] [place] [address] Discharge Disposition: Discharged to home or Selfcare 04/25/2025 2:00 PM E COMMERCE MERCHANDISING COORDINATOR Office Visit [facility] - Cardiology - [place] [address] [place] [address] Laisha Griffin, DO [address] [address] 07/18/2025 1:00 PM CDT Office Visit [facility] - Pulmonology & Sleep Medicine [facility] [address] [place] [address] Dom Quiñonez MD [address] [place] [address] documented as of this encounter Goals Goal Patient Goal Type Associated Problems Recent Progress Patient-Stated? Author ACTIVITY Activity No change(08/08 2:42 PM CDT) Yes Maritza Vanegas RN Note: Bonny will walk five days a week. Goal Reviewed with: Bonny Readiness to change: Department associated with goal: [facility] ADVANCED CARE Steps to achieve goal: Walking 5 days a week I want to be able to be around people and feel less depressed. Behavioral Health Worsening(0 09/22/2023 3:12 PM CDT) Yes Hilda Tinajero [facility] Note: Goal/Objective: Decrease symptoms of [...] diet Depression Depression Improving(0 03/15/2022 2:27 PM E COMMERCE MERCHANDISING COORDINATOR) No Breanne Saldana LCSW Note: Goal/Objective: Decrease symptoms of depression associated with grief and loss as well as the increase of anxiety and panic with follow up with out patient counseling. Anticipated Time Frame for Goal Completion: 2 week Depression and Anxiety Depression On track(07/13 4:30 PM CDT) Yes Ariela Hurtado, APPLICATION DESIGNER Note: I don't have no energy Goal/Objective: Decrease depression. Anticipated Time Frame for Goal Completion: 6 months Goal Reviewed with: patient Readiness to change: Ready to change Department associated with goal: [facility] [...] documented as of this encounter Care Teams Inclined Railway Operator Relationship Specialty Start Date End Date Tani Biggs PAC [address] [place] [address] PCP - General Physician Project Management Analyst 05/31/24 Phil Jacobo MD [address] [place] [phone] Consulting Physician Neurology 03/07/21 Rajiv Mccormack, SIZE CUTTER [address] [place] [address] Nurse Practitioner Gastroenterology 03/07/21 Alize Acosta, TELEPRINTER INSTALLER, RAW SHELLFISH PREPARER [facility] [place] [address] Virtual Advanced Care (VAC) HR INTERNSHIP Advanced Practice Nurse 08/30/21 David Salmon MD #[address] [address] Consulting Physician Endocrinology 01/15/22 Maurilio Farley MD #[address] [address] Consulting Physician Colon and Rectal Surgery 09/20/22 Dom Quiñonez MD [address] [place] [phone] Consulting Physician Pulmonary Disease 11/19/21 Rachelle Nava, TELEPRINTER INSTALLER, HR INTERNSHIP [address] [place] [address] Nurse Practitioner Advanced Practice Nurse 07/19/22 Sharri Gaspar MD [address] [phone] Consulting Physician Cardiology 04/26/24 Amber Aldrich, TELEPRINTER INSTALLER, RAW SHELLFISH PREPARER [address] [place] [phone] Nurse Practitioner Cardiology 07/30/24 documented as of this encounter
--- OUTSIDE RECORDS SUMMARY | 2025-02-04 11:13 | XMS_ITS | Encounter Summary ---
Author Organization [facility] Address [address] [place] [address] Phone Care Team Providers Care Programmer Numerical Control Name Role Phone Jackeline Dimas DINING MANAGER, AGRICULTURAL MECHANIC Primary Care Provider Phil Jacobo MD Unavailable [phone] Rajiv Mccormack NP Unavailable Unavailable Alize Acosta DINING MANAGER, AGRICULTURAL MECHANIC Unavailable Dayo Chaney MD Unavailable Juanita Hauser RN Unavailable UnavailDavid Alexandre MD Unavailable Emilia Tang MD Primary Care Provider [phone] Maurilio Farley MD Unavailable Physician, Candida Davis MD Unavailable Rebeka Trinidad MD Primary Care Provider + [phone] Dom Quiñonez MD Unavailable Rachelle Nava DINING MANAGER, WEB APPLICATIONS ARCHITECT Unavailable + [phone] Irais Naylor DINING MANAGER, AGRICULTURAL MECHANIC Unavailable + [phone] Lorri Leo DINING MANAGER, AGRICULTURAL MECHANIC Primary Care Provider + [phone] Rebeka Trinidad MD Primary Care Provider + [phone] Lorri Leo DINING MANAGER, [facility] Primary Care Provider + [phone] Sharri Gaspar MD Unavailable Tani Biggs [facility] Primary Care Provider [phone] Amber Aldrich DINING MANAGER, [facility] Unavailable Reason for Visit * Reason Comments Medication Refill Encounter Details Date Type Department Care Team (Late st Contact Info) Description 02/19/2022 Refill [facility] - Primary Care - [place] [address] [place] [address] Jackeline Dimas APRN, [facility] [address] [place] [address] Medication Refill Social History Tobacco [...] 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 No / Unsure 02/22/2022 2:34 PM REAL ESTATE TRANSACTION COORDINATOR documented as of this encounter Miscellaneous Notes * Telephone Encounter - Yoana Rojas, RN - 02/19/2022 2:49 PM CST Dosing changed to 50 mg 01/15/22. ESTATE TRANSACTION COORDINATOR documented in this encounter Plan of Treatment Upcoming Encounters Date Type Department Care Team (Late st Contact Info) Description 02/21/2025 1:00 PM REAL ESTATE TRANSACTION COORDINATOR [facility]icine [facility] [address] [place] [address] 02/21/2025 3:45 PM REAL ESTATE TRANSACTION COORDINATOR Office Visit [facility] Endocrinology [facility] [address] [place] [address] David Salmon MD #[address] [address] 02/24/2025 3:30 PM REAL ESTATE TRANSACTION COORDINATOR Telemedicine [facility] Emergency Department [address] [place] [address] Alize Acosta, DINING MANAGER, AGRICULTURAL MECHANIC [address] [place] [address] 03/04/2025 3:10 PM REAL ESTATE TRANSACTION COORDINATOR [facility] [place] [address] [place] [phone] 03/07/2025 2:15 PM REAL ESTATE TRANSACTION COORDINATOR Office Visit [facility] Primary Care - [place] [address] [place] [address] Tani Biggs, ESTRELLITA [address] [place] [address] 03/17/2025 1:30 PM REAL ESTATE TRANSACTION COORDINATOR [facility] [address] [place] [address] Melony Asif PAC [address] [place] [address] Discharge Disposition: Discharged to home or Selfcare 03/25/2025 1:20 PM REAL ESTATE TRANSACTION COORDINATOR Office Visit [facility] Oncology Services [address] [place] [address] Melony Asif Stacey, PAC [address] [place] [address] Discharge Disposition: Discharged to home or Selfcare 04/25/2025 2:00 PM REAL ESTATE TRANSACTION COORDINATOR Office Visit [facility] Cardiology - [place] [address] [place] [address] Laisha Griffin, DO [address] [address] 07/18/2025 1:00 PM CDT Office Visit [facility] Pulmonology & Sleep Medicine [facility] [address] [place] [address] Dom Quiñonez MD [address] [place] [address] documented as of this encounter Goals Goal [...] Depression Depression Improving( 2:27 PM REAL ESTATE TRANSACTION COORDINATOR) No Breanne Saldana, ADVANCED PRACTICE PSYCHIATRIC NURSE Note: Goal/Objective: Decrease symptoms of depression associated [...] 04/18/2024 04/18/2024 10:4 7 PM REAL ESTATE TRANSACTION COORDINATOR Respiratory Rule-Out 05/06/2024 05/06/2024 025 9:20 AM REAL ESTATE TRANSACTION COORDINATOR COVID - 19 05/06/2024 05/06/2024 05/06/2024 9:19 AM REAL ESTATE TRANSACTION COORDINATOR Assessment Noted Time PHQ-9 Depression Total Score: 24 022 3:31 PM REAL ESTATE TRANSACTION COORDINATOR documented as of this encounter Care Teams Programmer Numerical Control Relationship Specialty Start Date End Date Jackeline Dimas, DINING MANAGER, AGRICULTURAL MECHANIC [address] [place] [address] PCP - General Advanced Practice Nurse 07/31/17 Emilia Tang MD [address] [place] [address] PCP - General Family Medicine 06/07/22 03/25/23 Rebeka Trinidad MD [address] [place] [address] PCP - General Family Medicine 03/26/23 03/29/24 Lorri Leo APRN, AGRICULTURAL MECHANIC [address] [place] [address] PCP - General Certified Nurse Practitioner 03/30/24 04/20/24 Rebeka Trinidad MD [address] [place] [address] PCP - General Family Medicine 04/21/24 04/21/24 Lorri Leo APRN, AGRICULTURAL MECHANIC [address] [place] [address] PCP - General Certified Nurse Practitioner 04/22/24 05/30/24 Tani Biggs PAC [address] [place] [phone] PCP - General Physician Tool Crib Manager 05/31/24 Phil Jacobo MD [address] [place] [address] Consulting Physician Neurology 03/07/21 Rajiv Mccormack, ASSEMBLY MECHANIC [address] [place] [address] Nurse Practitioner Gastroenterology 03/07/21 Alize Acosta APRN, AGRICULTURAL MECHANIC [address] [place] [address] Virtual Advanced Care (VAC) PRIVATE BRANCH EXCHANGE REPAIRER Advanced Practice Nurse 08/30/21 Dayo Chaney MD [address] [place] [address] Container Repairer Cardiovascular Disease - Cardiology 09/20/21 02/12/24 Juanita Mercado RN [place] Registered Nurse Cardiology 12/24/21 02/12/24 David Salmon MD #[address] [address] Consulting Physician Endocrinology 01/15/22 Maurilio Farley MD #[address] [address] Consulting Physician Colon and Rectal Surgery 09/20/22 Physician, Candida Davis MD [address] [place] [address] Family Medicine 01/25/22 03/18/23 Dom Quiñonez MD [address] [place] [address] Consulting Physician Pulmonary Disease 11/19/21 Rachelle Nava APRN, WEB APPLICATIONS ARCHITECT [address] [place] [address] Nurse Practitioner Advanced Practice Nurse 07/19/22 Irais Naylor APRN, AGRICULTURAL MECHANIC [address] [address] Nurse Practitioner Cardiology 06/27/23 07/29/24 Sharri Gaspar MD 2 [facility]. [address] [place] [address] Consulting Physician Cardiology 04/26/24 Amber Aldrich APRN, AGRICULTURAL MECHANIC [address] [place] [address] Nurse Practitioner Cardiology 07/30/24 documented as of this encounter
--- OUTSIDE RECORDS SUMMARY | 2025-02-04 11:13 | XMS_ITS | Encounter Summary ---
Author Organization [facility] Address [address] [place] [address] Phone Care Team Providers Care Cupola Mechanic Name Role Phone Phil Jacobo MD Unavailable [phone] Rajiv Mccormack POLISHING MACHINE OPERATOR HELPER Unavailable Unavailable Alize Acosta APRN, FOUNTAIN VENDING MECHANIC Unavailable [phone] Dayo Chaney MD Unavailable Juanita Hauser RN Unavailable UnavailDavid Alexandre MD Unavailable Maurilio Farley MD Unavailable Rebeka Trinidad MD Primary Care Provider + [phone] Dom Quiñonez MD Unavailable Rachelle Nava LAMP DECORATOR, CYBER SECURITY ANALYST Unavailable + [phone] Irais Naylor LAMP DECORATOR, FOUNTAIN VENDING MECHANIC Unavailable + [phone] Lorri Leo LAMP DECORATOR, FOUNTAIN VENDING MECHANIC Primary Care Provider + [phone] Rebeka Trinidad MD Primary Care Provider + [phone] Lorri Leo LAMP DECORATOR, FOUNTAIN VENDING MECHANIC Primary Care Provider + [phone] Sharri Gaspar MD Unavailable Tani Biggs [facility] Primary Care Provider [phone] Amber Aldrich APRN, FOUNTAIN VENDING MECHANIC Unavailable Reason for Visit * Reason Comments Medication Refill Encounter Details Date Type Department Care Team (Late st Contact Info) Description 07/07/2023 Refill [facility] - [facility] #[address] [place] [id number] Rachelle Nava, RUSSELL, CYBER SECURITY ANALYST [address] [place] [address] Medication Refill Social History Tobacco Use Types Packs/Day Years Used Date Smoking Tobacco: Former Cigarettes 1 37.1 1 985 - 04/12/2021 Smokeless Tobacco: Never Alcohol Use Standard Drinks/Week Comments Not Currently 0 (1 standard drink = 0.6 oz pur e alcohol) last drank 2020 [facility] Utilities Answer Date Recorded In the past 12 months has [employer], gas, oil, or water [employer] threatened to shut off services in your home? No 03/24/2023 Social Connection and Isolation Panel Answer Date Recorded In a typical week, how many times do you talk on the phone with family, friends, or neighbors? Once a week 03/24/2023 How often do you get togethe r with friends or relatives? Never 03/24/2023 How often do you attend [facility] or scientologist services? 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 on file Not on file documented as of this encounter Functional Status documented as of this encounter Mental Status * Question Answer Entry Date Author BP 112/64 07/07/2023 12:58 PM CDT Nazia Flowers, LEASING SPECIALIST Temp 97.4 07/07/2023 12:58 PM CDT Nazia Flowers., LEASING SPECIALIST Pulse 99 07/07/2023 12:58 PM CDT Nazia Flowers, LEASING SPECIALIST SpO2 98 07/07/2023 12:58 PM CDT Nazia Flowers, LEASING SPECIALIST documented in this encounter Miscellaneous Notes * [...] Dept 06/19/23 Office Visit Phil Jacobo MD [facility] Neurology [facility] 06/04/23 Office Visit Rebeka Trinidad MD [facility] 05/09/23 Office Visit Rebeka Trinidad MD [facility] 03/26/23 Office Visit Rebeka Trinidad MD [facility] 03/19/23 Office Visit Rachelle Nava APRN, CYBER SECURITY ANALYST [facility] 02/06/23 Office Visit Emilia Tang MD [facility] 11/06/22 Office Visit Emilia Tang MD [facility] 10/10/22 Office Visit Emilia Tang MD [facility] 09/16/22 Office Visit Rachelle Nava APRN, CYBER SECURITY ANALYST [facility] 09/06/22 Office Visit Emilia Tang MD [facility] Showing recent visits within past 365 days and meeting all other requirements Future Appointments No visits were found meeting these conditions. Showing future appointments within next 90 days and meeting all other requirements documented in this encounter Plan of Treatment Upcoming Encounters Date Type Department Care Team (Late st Contact Info) Description 02/21/2025 1:00 PM ECOLOGY TEACHER Telemedicine [facility] [address] [place] [address] 02/21/2025 3:45 PM ECOLOGY TEACHER Office Visit [facility] Medical [facility] - Endocrinology - [place] [address] [place] [address] David Salmon MD #[address] [address] 02/24/2025 3:30 PM ECOLOGY TEACHER Telemedicine [facility] [address] [place] [address] Alize Acosta, RUSSELL, FOUNTAIN VENDING MECHANIC [address] [place] [address] 03/04/2025 3:10 PM ECOLOGY TEACHER [facility] - [place] [address] [place] [address] 03/07/2025 2:15 PM ECOLOGY TEACHER Office Visit [facility] - Primary Care - [place] [address] [place] [address] Tani Biggs, PAC [address] [place] [address] 03/17/2025 1:30 PM ECOLOGY TEACHER [facility] [address] [place] [address] Melony Asif Stacey, [facility] [address] [place] [address] Discharge Disposition: Discharged to home or Selfcare 03/25/2025 1:20 PM ECOLOGY TEACHER [facility] [address] [place] [address] Melony Asif Stacey, [facility] [address] [place] [address] Discharge Disposition: Discharged to home or Selfcare 04/25/2025 2:00 PM ECOLOGY TEACHER Office Visit [facility] - Cardiology - [place] [address] [place] [address] Laisha Griffin, DO [address] [address] 07/18/2025 1:00 PM CDT [facility] - [place] [address] [place] [address] Dom Quiñonez MD [address] [place] [address] documented as of this encounter Goals Goal Patient Goal Type Associated Problems Recent Progress Patient-Stated? Author ACTIVITY Activity No change(08/08 2:42 PM CDT) Yes Maritza Vanegas, RN Note: Bonny will walk five days a week. Goal Reviewed with: Bonny Readiness to change: Department associated with goal: [facility] Steps to achieve goal: Walking 5 days a week I want to be able to be around people and feel less depressed. Behavioral Health Worsening(0 09/22/2023 3:12 PM CDT) Yes Hilda Tinajero [facility] Note: Goal/Objective: Decrease symptoms of depression [...] diet Depression Depression Improving(0 03/15/2022 2:27 PM ECOLOGY TEACHER) No Breanne Saldana, SMALL ARMS REPAIRER Note: Goal/Objective: Decrease symptoms of depression associated [...] 19 04/18/2024 04/18/2024 04/18/2024 10:4 7 PM ECOLOGY TEACHER Respiratory Rule-Out 05/06/2024 05/06/2024 025 9:20 AM ECOLOGY TEACHER COVID - 19 05/06/2024 05/06/2024 05/06/2024 9:19 AM ECOLOGY TEACHER Assessment Noted Time PHQ-9 Depression Total Score: 18 023 9:24 AM CDT documented as of this encounter Care Teams Cupola Mechanic Relationship Specialty Start Date End Date Rebeka Trinidad MD [address] [place] [address] PCP - General Family Medicine 03/26/23 03/29/24 Lorri Leo APRN, FOUNTAIN VENDING MECHANIC [address] [place] [address] PCP - General Certified Nurse Practitioner 03/30/24 04/20/24 Rebeka Trinidad MD [address] [place] [address] PCP - General Family Medicine 04/21/24 04/21/24 Lorri Leo APRN, FOUNTAIN VENDING MECHANIC [address] [place] [address] PCP - General Certified Nurse Practitioner 04/22/24 05/30/24 Tani Biggs, PAC [address] [place] [address] PCP - General Physician Financial Analysis Advisor 05/31/24 Phil Jacobo MD [address] [place] [address] Consulting Physician Neurology 03/07/21 Rajiv Mccormack, KELI [address] [place] [address] Nurse Practitioner Gastroenterology 03/07/21 Alize Acosta APRN, FOUNTAIN VENDING MECHANIC [address] [place] [address] Virtual Advanced Care (VAC) HOSPITAL FELLOW Advanced Practice Nurse 08/30/21 Dayo Chaney MD [address] [place] [address] Triage Register Nurse Cardiovascular Disease - Cardiology 09/20/21 02/12/24 Juanita Mercado RN [place] Registered Nurse Cardiology 12/24/21 02/12/24 David Salmon MD #[address] [address] Consulting Physician Endocrinology 01/15/22 Maurilio Farley MD #[address] [id number] Consulting Physician Colon and Rectal Surgery 09/20/22 Dom Quiñonez MD #[address] [place] [address] Consulting Physician Pulmonary Disease 11/19/21 Rachelle Nava APRN, CYBER SECURITY ANALYST [address] [place] [address] Nurse Practitioner Advanced Practice Nurse 07/19/22 Irais Naylor LAMP DECORATOR, FOUNTAIN VENDING MECHANIC #2 [facility] [address] [place] [address] Nurse Practitioner Cardiology 06/27/23 07/29/24 Sharri Gaspar MD 2 [facility] [address] [facility] [address] [place] [address] Consulting Physician Cardiology 04/26/24 Amber Aldrich APRN, FOUNTAIN VENDING MECHANIC [address] [place] [address] Nurse Practitioner Cardiology 07/30/24 documented as of this encounter
--- OUTSIDE RECORDS SUMMARY | 2025-02-04 11:13 | XMS_ITS | Encounter Summary ---
Author Organization [facility] Address [address] [place] [address] Phone Care Team Providers Care Senior Facilities Manager Name Role Phone Phil Jacobo MD Unavailable [phone] Rajiv Mccormack STONE POLISHER Unavailable Unavailable Alize Acosta APRN, CONTINUUM OF CARE MANAGER Unavailable [phone] Dayo Chaney MD Unavailable Juanita Hauser RN Unavailable UnavailDavid Alexandre MD Unavailable Maurilio Farley MD Unavailable Rebeka Trinidad MD Primary Care Provider + [phone] Dom Quiñonez MD Unavailable Rachelle Nava CNC OPERATOR PROGRAMMER, ORACLE TECHNICAL ARCHITECT Unavailable + [phone] Irais Naylor CNC OPERATOR PROGRAMMER, CONTINUUM OF CARE MANAGER Unavailable + [phone] Lorri Leo CNC OPERATOR PROGRAMMER, CONTINUUM OF CARE MANAGER Primary Care Provider + [phone] Rebeka Trinidad MD Primary Care Provider + [phone] Lorri Leo CNC OPERATOR PROGRAMMER, CONTINUUM OF CARE MANAGER Primary Care Provider + [phone] Sharri Gaspar MD Unavailable Tani Biggs PAC Primary Care Provider + [phone] Amber Aldrich APRN, CNP Unavailable Encounter Details Date Type Department Care Team (Late st Contact Info) Description 07/23/2023 Telephone [facility] Call Center [address] [place] [address] Rebeka Trinidad MD [address] [place] [address] Social History Tobacco Use Types Packs/Day Years Used Date Smoking Tobacco: Former Cigarettes 1 37.1 1 985 - 04/12/2021 Smokeless Tobacco: Never Alcohol Use Standard Drinks/Week Comments Not Currently 0 (1 standard drink = 0.6 oz pur e alcohol) last drank 2020 [facility] Utilities Answer Date Recorded In the past 12 months has [email or web address], gas, oil, or water [employer] threatened to shut off services in your home? No 03/24/2023 Social Connection and Isolation Panel Answer Date Recorded In a typical week, how many times do you talk on the phone with family, friends, or neighbors? Once a week 03/24/2023 How often do you get togethe r with friends or relatives? Never 03/24/2023 How often do you attend [facility] or congregational services? More than 4 [...] Total Score - Questions 1-9 18 10/10 [facility] - Occupational Stress Questionnaire Answer [...] place to sleep or slept in a chcf (including now)? 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 file Not on file documented as of this encounter Plan of Treatment Upcoming Encounters Date Type Department Care Team (Late st Contact Info) Description 02/21/2025 1:00 PM PAN TANK WORKER Telemedicine [facility] [address] [place] [address] 02/21/2025 3:45 PM PAN TANK WORKER Office Visit [facility] - Endocrinology [facility] [address] [place] [address] David Salmon MD [address] [address] 02/24/2025 3:30 PM PAN TANK WORKER Telemedicine [facility] [address] [place] [address] Alize Acosta, CNC OPERATOR PROGRAMMER, CONTINUUM OF CARE MANAGER [address] [place] [address] 03/04/2025 3:10 PM PAN TANK WORKER [facility] [place] [address] [place] [address] 03/07/2025 2:15 PM PAN TANK WORKER Office [facility] Primary Care - [place] [address] [place] [address] Tani Biggs PAC [address] [place] [address] 03/17/2025 1:30 PM PAN TANK WORKER [facility] [address] [place] [address] Melony Asif August, PAC [address] [place] [address] Discharge Disposition: Discharged to home or Selfcare 03/25/2025 1:20 PM PAN TANK WORKER Office Visit [facility] Oncology Services [address] [facility] [place] [address] Melony Asif Stacey, PAC [address] [place] [address] Discharge Disposition: Discharged to home or Selfcare 04/25/2025 2:00 PM PAN TANK WORKER Office Visit [facility] - Cardiology - [place] [address] [place] [address] Laisha Griffin, DO [address] [address] 07/18/2025 1:00 PM CDT Office Visit [facility] - Pulmonology & Sleep Medicine [facility] [address] [place] [address] Dom Quiñonez MD [address] [place] [address] documented as of this encounter Goals Goal [...] a change Department associated with goal: [facility] Steps to achieve goal: [...] diet Depression Depression Improving(0 03/15/2022 2:27 PM PAN TANK WORKER) No Breanne Saldana LCSW Note: Goal/Objective: [...] 19 04/18/2024 04/18/2024 04/18/2024 10:4 7 PM PAN TANK WORKER Respiratory Rule-Out 05/06/2024 05/06/2024 025 9:20 AM PAN TANK WORKER COVID - 19 05/06/2024 05/06/2024 05/06/2024 9:19 AM PAN TANK WORKER Assessment Noted Time PHQ-9 Depression Total Score: 18 023 9:24 AM CDT documented as of this encounter Care Teams Senior Facilities Manager Relationship Specialty Start Date End Date Rebeka Trinidad MD [address] [place] [address] PCP - General Family Medicine 03/26/23 03/29/24 Lorri Leo APRN, CONTINUUM OF CARE MANAGER [address] [place] [address] PCP - General Certified Nurse Practitioner 03/30/24 04/20/24 Rebeka Trinidad MD [address] [place] [address] PCP - General Family Medicine 04/21/24 04/21/24 Lorri Leo APRN, CONTINUUM OF CARE MANAGER [address] [place] [address] PCP - General Certified Nurse Practitioner 04/22/24 05/30/24 Tani Biggs PAC [address] [place] [address] PCP - General Physician Hair Spinner 05/31/24 Phil Jacobo MD [address] [place] [address] Consulting Physician Neurology 03/07/21 Rajiv Mccormack, KELI [address] [place] [address] Nurse Practitioner Gastroenterology 03/07/21 Alize Acosta APRN, CONTINUUM OF CARE MANAGER [address] [place] [address] Virtual Advanced Care (VAC) LINE ERECTOR Advanced Practice Nurse 08/30/21 Dayo Chaney MD [address] [place] [address] Assistant Department Manager Cardiovascular Disease - Cardiology 09/20/21 02/12/24 Juanita Mercado RN [place] Registered Nurse Cardiology 12/24/21 02/12/24 David Salmon MD #[address] [address] Consulting Physician Endocrinology 01/15/22 Maurilio Farley MD #[address] [address] Consulting Physician Colon and Rectal Surgery 09/20/22 Dom Quiñonez MD #[address] [place] [address] Consulting Physician Pulmonary Disease 11/19/21 Rachelle Nava APRN, ORACLE TECHNICAL ARCHITECT [address] [place] [address] Nurse Practitioner Advanced Practice Nurse 07/19/22 Irais Naylor APRN, CONTINUUM OF CARE MANAGER #[address] [address] Nurse Practitioner Cardiology 06/27/23 07/29/24 Sharri Gaspar MD 2 [facility] [place] [facility] [place] [place] [address] Consulting Physician Cardiology 04/26/24 Amber Aldrich APRN, CONTINUUM OF CARE MANAGER [address] [place] [address] Nurse Practitioner Cardiology 07/30/24 documented as of this encounter
--- OUTSIDE RECORDS SUMMARY | 2025-02-04 11:13 | XMS_ITS | Encounter Summary ---
Author Organization [facility] Address [address] [place] [address] Phone Care Team Providers Care Data Transcriber Name Role Phone Phil Jacobo MD Unavailable [phone] Rajiv Mccormack THREAD SINGER Unavailable Unavailable Alize Acosta STONEWORKER, CLINICAL EDUCATOR Unavailable [phone] Dayo Chaney MD Unavailable Juanita Hauser RN Unavailable Unavaila David Martinez MD Unavailable Emilia Tang MD Primary Care Provider [phone] Maurilio Farley MD Unavailable PhysicianCandida MD Unavailable Rebeka Trinidad MD Primary Care Provider + [phone] Dom Quiñonez MD Unavailable Rachelle Nava STONEWORKER, FLOOR FINISHER Unavailable + [phone] Irais Naylor STONEWORKER, CLINICAL EDUCATOR Unavailable + [phone] Lorri Leo STONEWORKER, CLINICAL EDUCATOR Primary Care Provider + [phone] Rebeka Trinidad MD Primary Care Provider + [phone] Lorri Leo STONEWORKER, CLINICAL EDUCATOR Primary Care Provider + [phone] Sharri Gaspar MD Unavailable Tani Biggs Primary Care Provider + [phone] Valdemar Amber Louise STONEWORKER, CLINICAL EDUCATOR Unavailable Reason for Visit * Reason Comments Medication Refill Encounter Details Date Type Department Care Team (Late st Contact Info) Description 06/18/2022 Refill [facility] Advanced Care [address] [place] [address] Jackeline Dimas, STONEWORKER, CLINICAL EDUCATOR [address] [place] [address] Medication Refill Social History Tobacco Use Types [...] 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 file Not [...] st Contact Info) Description 02/21/2025 1:00 PM GENERAL OFFICE DISPATCHER Telemedicine [facility] [address] [place] [address] [phone] 02/21/2025 3:45 PM GENERAL OFFICE DISPATCHER Office Visit [facility] - Endocrinology - [place] [address] [place] [address] David Salmon MD #[address] [address] 02/24/2025 3:30 PM GENERAL OFFICE DISPATCHER Telemedicine [facility] [address] [place] [address] Alize Acosta, STONEWORKER, CLINICAL EDUCATOR [address] [place] [address] 03/04/2025 3:10 PM GENERAL OFFICE DISPATCHER [facility] - [place] [address] [place] [address] 03/07/2025 2:15 PM GENERAL OFFICE DISPATCHER Office Visit [facility] Primary Care - [place] [address] [place] [address] Tani Biggs PAC [address] [place] [address] 03/17/2025 1:30 PM GENERAL OFFICE DISPATCHER [facility] [address] [place] [address] Melony Asif PAC [address] [place] [address] Discharge Disposition: Discharged to home or Selfcare 03/25/2025 1:20 PM GENERAL OFFICE DISPATCHER Office Visit [facility] Oncology Services [address] [place] [address] Melony Asif Stacey, PAC [address] [place] [address] Discharge Disposition: Discharged to home or Selfcare 04/25/2025 2:00 PM GENERAL OFFICE DISPATCHER Office Visit [facility] - Cardiology - [place] [address] [place] [address] Laisha Griffin, DO [address] [address] 07/18/2025 1:00 PM CDT Office Visit [facility] - Pulmonology & Sleep Medicine [facility] #[address] [place] [address] Dom Quiñonez MD [address] [place] [address] documented as of this encounter Goals Goal [...] as recommended. Depression Depression Improving( 2:27 PM GENERAL OFFICE DISPATCHER) No Breanne Saldana LCSW Note: Goal/Objective: Decrease [...] 19 04/18/2024 04/18/2024 04/18/2024 10:4 7 PM GENERAL OFFICE DISPATCHER Respiratory Rule-Out 05/06/2024 05/06/2024 025 9:20 AM GENERAL OFFICE DISPATCHER COVID - 19 05/06/2024 05/06/2024 05/06/2024 9:19 AM GENERAL OFFICE DISPATCHER Assessment Noted Time PHQ-9 Depression Total Score: 24 022 3:31 PM GENERAL OFFICE DISPATCHER documented as of this encounter Care Teams Data Transcriber Relationship Specialty Start Date End Date Emilia Tang MD [address] [place] [address] PCP - General Family Medicine 06/07/22 03/25/23 Rebeka Trinidad MD [address] [place] [address] PCP - General Family Medicine 03/26/23 03/29/24 Lorri Leo APRN, CLINICAL EDUCATOR [address] [place] [address] PCP - General Certified Nurse Practitioner 03/30/24 04/20/24 Rebeka Trinidad MD [address] [place] [address] PCP - General Family Medicine 04/21/24 04/21/24 Lorri Leo APRN, CLINICAL EDUCATOR [address] [place] [address] PCP - General Certified Nurse Practitioner 04/22/24 05/30/24 Tani Biggs, PAC [address] [place] [address] PCP - General Physician Clinical Data Coordinator 05/31/24 Phil Jacobo MD [address] [place] [address] Consulting Physician Neurology 03/07/21 Rajiv Mccormack, THREAD SINGER [address] [place] [address] Nurse Practitioner Gastroenterology 03/07/21 Alize Acosta APRN, CLINICAL EDUCATOR [address] [place] [address] Virtual Advanced Care (VAC) OCCUPATIONAL THERAPY AIDE Advanced Practice Nurse 08/30/21 Dayo Chaney MD [address] [place] [address] Construction Stonemason Cardiovascular Disease - Cardiology 09/20/21 02/12/24 Juanita Mercado RN [place] Registered Nurse Cardiology 12/24/21 02/12/24 David Salmon MD #[address] [phone] Consulting Physician Endocrinology 01/15/22 Maurilio Farley MD #[address] [address] Consulting Physician Colon and Rectal Surgery 09/20/22 PhysicianCandida MD [address] [place] [address] Family Medicine 01/25/22 03/18/23 Dom Quiñonez MD [address] [place] [address] Consulting Physician Pulmonary Disease 11/19/21 Rachelle Nava APRN, FLOOR FINISHER [address] [place] [address] Nurse Practitioner Advanced Practice Nurse 07/19/22 Irais Naylor APRN, CLINICAL EDUCATOR #[address] [address] Nurse Practitioner Cardiology 06/27/23 07/29/24 Sharri Gaspar MD [address] [address] Consulting Physician Cardiology 04/26/24 Amber Aldrich APRN, CLINICAL EDUCATOR [address] [place] [address] Nurse Practitioner Cardiology 07/30/24 documented as of this encounter
--- OUTSIDE RECORDS SUMMARY | 2025-02-04 11:13 | XMS_ITS | Clinical Summary ---
Author Organization [facility] Address [address] [place] [address] Phone Care Team Providers Care Frame Aligner Name Role Phone Phil Jacobo MD Unavailable Rajiv Mccormack NP Unavailable Unavailable Alize Acosta APRN, ROPE MAKER Unavailable [phone] David Salmon MD Unavailable Maurilio Farley MD Unavailable Dom Quiñonez MD Unavailable Rachelle Nava SUPPORT SERVICES COORDINATOR, WIRE WINDING MACHINE TENDER Unavailable + [phone] Sharri Gaspar MD Unavailable Tani Biggs PAC Primary Care Provider Amber Aldrich SUPPORT SERVICES COORDINATOR, ROPE MAKER Unavailable Allergies Active Allergy Reactions Criticality Noted Date Comments Jony Itching,Other (see Comments) Low 02/24/2024 Sneezing Bee Venom Swelling Medium 2022 Cephalexin Itching Low 04/30/2022 Patient denies swelling Patient denies swelling Patient denies swelling Patient denies swelling Patient denies swelling Hanson Rash,Swelling,Other (see Comments) High 03/21/2020 Duloxetine Other (see Comments) Low 10/25/2022 Ketorolac Unknown High 12/03/2024 Meclizine Swelling,Unknown High 12/08/2020 Meclizine Hcl Swelling Medium 12/12/2020 Nsaids Other (see Comments) 12/15/2021 Pt states GI doctor said she cant have them due to gastritis. Other-Environmental Allergen (Not Found In Search) Other (see Comments) High 05/09/2023 Dogs and Cats mouth tingle Other-Food Allergen (Not Found In Search) Anaphylaxis Medium 01/12/2021 Mountain Dew Penicillins Other (see Comments),Shortness of Breath High 10/01/2024 Rivaroxaban Unknown High 10/18/2024 GI bleed Shrimp Extract Other (see Comments) Low 2022 [...] by mouth daily. Active TRUEplus 5-Bevel Pen [place] 32G X 4 MM Misc USE DAILY DIRECTED. 100 Each 1 09/05/19 23 Active aspirin EC 81 MG Tablet Delayed Response Aspirin Adult Low Dose 81 MG Oral Tablet Delayed Release QTY: 0 tablet Days: 0 Refills: 0 Written: 11/26/22 Patient Instructions: 11/27/19 23 Active Multiple Vitamin (MULTI-VITAMIN PO) Take by mouth daily. Active lubiprostone (AMITIZA) 24 MCG Capsule Take [...] E11.65, insulin dependent 200 Each 3 01/19/20 Active Glucose Blood (Accu-Chek Guide) StripIndications: Type 2 diabetes mellitus with hyperglycemia, without long-term current use of insulin Test blood glucose 2x daily. E11.65, insulin dependent 200 Strip 3 01/19/20 Active cetirizine-pseudo ephedrine (ZYRTEC-D) 5-120 MG TABLET SR 12 HR Take 1 Tablet by mouth 2 times daily. Active naloxone HCl (Narcan) 4 MG/0.1ML Liquid 1 [place] by Nasal route as needed for Opioid [...] WHEEZING. 18 g 1 05/28/19 25 Active ondansetron (ZOFRAN-ODT) 4 MG TABLET DISPERSIBLE Take 1 Tablet by mouth every 8 hours as needed for Nausea - 1st line. 10 Tablet 08/20/19 25 Active allopurinol (ZYLOPRIM) 100 MG TabletIndications :Hyperuricemia TAKE 1 TABLET BY MOUTH DAILY 90 Tablet 09/01/19 25 Active DULoxetine (CYMBALTA) 60 MG Capsule [...] PROBLEMATIC GAS AND UPPER ABDOMINAL PAIN Active empagliflozin (Jardiance) 25 MG Tablet Take 1 Tablet by mouth daily. 100 Tablet 1 10/21/19 25 Active montelukast (SINGULAIR) 10 MG Tablet [...] daily. 90 Tablet 3 11/04/19 25 Active albuterol (PROVENTIL, VENTOLIN) (2.5 MG/3ML) 0.083% Nebulizer SolnIndications:U ncomplicated asthma, unspecified asthma severity, unspecified whether persistent 3 mL by Nebulization route every 4 hours as needed for Wheezing, Shortness of Breath or Cough. 75 mL 1 11/12/19 25 Active glimepiride (AMARYL) 2 MG Tablet Take 2 Tablets by mouth every morning. 180 Tablet 1 11/19/19 25 Active gabapentin (NEURONTIN) 300 MG Capsule Take 300 mg by mouth 3 times daily. 12/09/19 25 Active oxyCODONE (ROXICODONE) 5 MG Tablet Take 5 mg by mouth every 4 hours as needed for Moderate or more severe pain. 12/04/19 25 Active oxyCODONE-Acetami nophen (PERCOCET) 10-325 MG Tablet Take 1 Tablet by mouth every 4 hours as needed for Severe pain. 12/09/19 25 Active senna (SENOKOT) 8.6 MG Tablet Take 1 Tablet by mouth 2 times daily as needed for Constipation - 1st line. 12/09/19 25 Active furosemide (LASIX) 20 MG Tablet TAKE 1 TABLET BY MOUTH DAILY 90 Tablet 12/22/19 25 Active EPINEPHrine (EPIPEN) 0.3 MG/0.3ML Solution Auto-injectorIndi cations:Anaphylax is, subsequent encounter 0.3 mL by Intramuscular route once as needed for Anaphylaxis for up to 16 doses. 1.2 mL 3 01/15/20 25 Active Tirzepatide (Mounjaro) 15 MG/0.5ML Solution Auto-injector 0.5 mL by Subcutaneous route once a week. 6 mL 1 01/26/20 25 Active magnesium oxide (MAG-OX) 400 (240 Mg) MG Tablet TAKE ONE TABLET BY MOUTH DAILY AT 9 AM 90 Tablet 01/29/20 25 Active buPROPion (WELLBUTRIN) 75 MG TabletIndications :Encounter for smoking cessation counseling TAKE ONE TABLET BY MOUTH TWICE DAILY AT 9AM & 5PM 180 Tablet 01/29/20 25 Active insulin glargine (Lantus SoloStar) 100 UNIT/ML Solution Pen-injector 25 Units by Subcutaneous route daily as needed for Other (elevated glucose when on steroids). 025 Discontin ued(Med List Clean Up) azelastine (ASTELIN) 0.1 % SolutionIndicatio ns:Chronic pansinusitis 2 Sprays by Nasal route 2 times daily. 30 mL 6 09/04/19 24 025 Discontin ued(Med List Clean Up) EPINEPHrine (EPIPEN) 0.3 MG/0.3ML Solution Auto-injectorIndi cations:Anaphylax is, subsequent encounter 0.3 mL by Intramuscular route once as needed for Anaphylaxis for up to 16 doses. 1.2 mL 3 07/08/19 25 Discontin ued(Reord er) buPROPion (WELLBUTRIN) 75 MG TabletIndications :Encounter for smoking cessation counseling Take 1 Tablet by mouth 2 times daily. 180 Tablet 10/01/19 25 025 Discontin ued(Reord er) nicotine (NICODERM CQ) 21 MG/24HR PATCH 24 HRIndications:Enc ounter for smoking cessation counseling 1 Patch by Transdermal route every 24 hours. 30 Patch 10/20/19 25 025 Discontin ued(Med List Clean Up) cyclobenzaprine (FLEXERIL) 10 MG Tablet Take 10 mg by mouth 3 times daily. 10/08/19 025 Discontin ued(Med List Clean Up) magnesium oxide (MAG-OX) 400 MG Tablet Take 1 Tablet by mouth daily. 90 Tablet 11/05/19 025 Discontin ued(Reord er) Tirzepatide (Mounjaro) 12.5 MG/0.5ML Solution Auto-injector 12.5 mg by Subcutaneous route once a week. 6 mL 12/22/19 25 025 Discontin ued(Reord er) Tirzepatide (Mounjaro) 12.5 MG/0.5ML Solution Auto-injector 12.5 mg by Subcutaneous route once a week. 6 mL 01/25/20 25 025 Discontin ued(Med List Clean Up) Tirzepatide (Mounjaro) 15 MG/0.5ML Solution Auto-injector 0.5 mL by Subcutaneous route once a week. 6 mL 1 01/25/20 25 025 Discontin ued(Reord er) Active Problems [...] + MRI () - right kidney mass ([facility] in [place]). Creatinine 1.1. Hx of post-menopausal bleeding s/p [...] + MRI () - right kidney mass ([facility] [place]). Creatinine 1.1. Hx of post-menopausal bleeding s/p [...] Encounters Date Type Department Care Team Description 02/04/2025 Telephone [facility] [address] [place] [phone] Ayla Conte, RN Hypertension 01/31/2025 Telephone [facility] [address] [place] [address] Ayla Conte, RN Hypertension 01/30/2025 Nurse Triage [facility] [address] [place] [address] Jodee Montoya, SEBASTIAN 01/28/2025 Nurse Triage [facility] [address] [place] [phone] Patricia Dimas, RN Hypertension 01/28/2025 Refill [facility] [address] [place] [address] Tani Biggs, PAC Medication Refill 01/24/2025 MyChart RX Renewal [facility] - [place] [address] [place] [address] David Salmon MD Medication Renewal Reviewed 01/24/20[facility] [place] [address] David Salmon MD Medication Refill 01/24/2025 MyChart RX Renewal [facility] [address] [place] [address] David Salmon MD Medication Renewal Reviewed 01/15/2025 Telephone [facility] [address] [place] [phone] Tani Biggs, PAC Referral 01/14/2025 2:00 PM AGRONOMIST Office Visit [facility] [place] [address] [place] [address] Tani Biggs, PAC Erosive (osteo)arthritis (Primary Dx); S/P lumbar spinal fusion; Type 2 diabetes mellitus without complication, without long-term current use of insulin; Hypertension, essential; Hyperlipidemia, unspecified hyperlipidemia type; Hyperparathyroidism; Anaphylaxis, subsequent encounter Discharge Disposition: Discharged to home or Selfcare 01/14/2025 Travel 01/12/2025 2:40 PM AGRONOMIST Telemedicine [address] [phone] Type 2 diabetes mellitus without complication, without long-term current use of insulin (Primary Dx); Hypertension, essential; Chronic combined systolic and diastolic CHF (congestive heart failure) Discharge Disposition: Discharged to home or Selfcare 01/10/2025 Telephone [facility] [address] [place] [phone] Tani Biggs, PAC Form Completion 12/27/[address] [phone] Patricia Dimas, RN 12/27/2024 Nurse Triage [facility] [address] [place] [phone] Cassei Armando RN Weight Gain 12/22/2024 MyChart [facility] [place] [address] [place] [address] Amber Aldrich APRN, LIDA Medication Renewal Declined 12/22/2024 Travel 12/21/2024 Refill [facility] [place] [address] [place] [address] Amber Aldrich APRN, LIDA Medication Refill 12/21/2024 MyChart RX [facility] [place] [address] [place] [phone] David Salmon MD Medication Renewal Reviewed 12/14/2024 [facility] [place] [address] [place] [address] Tani Biggs, PAC HH therapy plan 12/10/2024 2:40 PM CDT Telemedicine [facility] [address] [place] [phone] Type 2 diabetes mellitus without complication, without long-term current use of insulin (Primary Dx) Discharge Disposition: Discharged to home or Selfcare 12/10/2024 Telephone [facility] [address] [place] [phone] Patricia Dimas, RN Congestive Heart Failure 12/07/2024 [facility] [place] [address] [place] [phone] Tani Biggs, PAC Advice Only 11/24/2024 Telephone [facility] [address] [place] [phone] Cecilia Aguila RN High Blood Pressure (149/84) 11/23/2024 Travel 11/22/2024 Refill [facility] - [place] [address] [place] [address] Amber Aldrich APRN, CNP Medication Refill 11/22/2024 Refill [facility] [place] [address] [place] [address] Amber Aldrich APRN, CNP Medication Refill 11/22/2024 Results Follow-Up [facility] [address] [place] [address] Alize Acosta APRN, LIDA N-TERMINAL- PRO B TYPE NATRIURETIC PEPTIDE 11/19/2024 Results Follow-Up [facility] - [place] [address] [place] [address] Amber Aldrich APRN, LIDA BASIC METABOLIC PANEL W/ CALCIUM TOTAL 11/18/2024 3:45 PM CDT Office Visit [facility] - [place] [address] [place] [address] David Salmon MD Type 2 diabetes mellitus with hyperglycemia, without long-term current use of insulin (HCC) (Primary Dx); Medication dose changed; Class 1 obesity due to excess calories with serious comorbidity and body mass index (BMI) of 31.0 to 31.9 in adult Discharge Disposition: Discharged to home or Selfcare 11/17/2024 2:00 PM CDT Telemedicine [facility] [address] [place] [address] Alize Acosta APRN, LIDA Hypertension, essential (Primary Dx); Chronic combined systolic and diastolic CHF (congestive heart failure) (HCC); Type 2 diabetes mellitus without complication, without long-term current use of insulin; Shortness of breath Discharge Disposition: Discharged to home or Selfcare 11/16/2024 Results Follow-Up [facility] Adult Pediatric Inpatient Virtual [address] [place] [address] Amber Aldrich APRN, LIDA NM CARD MULTI SPECT WITH WALL MOTION AND EJECTION FRACTION 11/16/2024 Travel 11/16/2024 Documentation Only [facility] [address] [place] [phone] Alize Acosta APRN, LIDA 11/15/2024 Travel 11/13/2024 Telephone [facility] [address] [place] [address] Jaylyn Mosqueda RN HTN alert - 145/91, survey alert - coughing worse than norm ([facility] ) 11/12/2024 1:00 PM CDT Office Visit [facility] - [place] [address] [place] [address] Tani Biggs, PAC ERRONEOUS ENCOUNTER--DISREGARD (Primary Dx); Anaphylaxis, subsequent encounter Discharge Disposition: Discharged to home or Selfcare 11/12/2024 10:40 AM CDT Urgent Care Visit [facility] [place] [address] [place] [address] Charmaine Cordova APRN, ROPE MAKER Primary osteoarthritis of right hand (Primary Dx); Heart failure with mid-range ejection fraction (HFmEF) (HCC); Type 2 diabetes mellitus without complication, without long-term current use of insulin Discharge Disposition: Discharged to home or Selfcare 11/12/2024 9:39 AM CDT - 11/12/2024 11:59 PM CDT [facility] [address] [place] [phone] Amber Aldrich APRN, ROPE MAKER Discharge Disposition: Discharged to home or Selfcare 11/12/2024 9:05 AM CDT - 11/12/2024 9:38 AM CDT [facility] [address] [place] [phone] Amber Aldrich APRN, ROPE MAKER Discharge Disposition: Discharged to home or Selfcare 11/12/2024 8:56 AM CDT - 11/12/2024 9:04 AM CDT Hospital Encounter [facility] Nuclear Medicine [address] [place] [address] Amber Aldrich APRN, CNP Discharge Disposition: Discharged to home or Selfcare 11/12/2024 8:40 AM CDT - 11/12/2024 8:55 AM CDT Hospital Encounter [facility] Cardiology Stress [address] [place] [address] Amber Aldrich APRN, CNP Discharge Disposition: Discharged to home or Selfcare 11/12/2024 Telephone [facility] [address] [place] [address] Monica Dimas RN Hand Pain 11/12/2024 Travel 11/09/2024 2:00 PM CDT [facility]medicine [facility] [address] [place] [address] Alize Acosta APRN, LIDA Hypertension, essential (Primary Dx); Chronic combined systolic and diastolic CHF (congestive heart failure) (HCC); Type 2 diabetes mellitus without complication, without long-term current use of insulin; Uncomplicated asthma, unspecified asthma severity, unspecified whether persistent 11/07/2024 Travel from Last 3 Months Immunizations Immunization Administration Dates Next Due Influenza Vaccine greater than 3 yrs 12/23/2019 Influenza Vaccine, Quadrivalent, PF 11/3 ,11/13/2021,11/30/2020,12/15 Influenza, Seasonal, Injecta ble, Undefined 12/23/2019 Pneumococcal Vaccine Adult - 23 Valent Pneumococcal conjugate PCV20 , polysaccharide [id number] conjugate, adjuvant, PF 06/07/2022 TDAP Vaccine 06/07/2022 [...] Cessation:Ready to Q uit: No; Counseling Given: No Alcohol Use Standard Drinks/Week Comments Not Currently 0 (1 standard drink = 0.6 oz pur e alcohol) Last drink in 2020 [facility] Utilities Answer Date Recorded In the past [...] often do you attend chur ch or hindu services? 1 to 4 times per year [...] Recorded Total Score - Questions 1-9 24 /0 07/2024 [facility] Occupat critical access hospitalal [facility] - Occupational Stress Questionnaire Answer Date Recorded [...] place to sleep or slept in a correction (including now)? No 03/24/2023 Housing Stability Vital [...] in the past 12 m [facility], were you homeless or living in a correction (including now)? 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 on file Not on file Not on file Last Filed Vital Signs Vital Sign Reading Time Taken Comments Blood Pressure 126/78 01/14/2025 2:05 PM AGRONOMIST Pulse 100 01/14/2025 2:05 PM AGRONOMIST Temperature 37.1 C (98.7 F) 01/14/2025 2:05 PM AGRONOMIST Respiratory Rate 18 01/14/2025 2:05 PM AGRONOMIST Oxygen Saturation 98% 01/14/2025 2:05 PM AGRONOMIST Inhaled Oxygen Concentration - - Weight 81.6 kg (180 lb) 01/14/2025 2:05 PM AGRONOMIST Height 160 cm (5' 3) 11/12/2024 9:39 AM CDT Body Mass Index 31.89 11/12/2024 9:39 AM CDT Plan of Treatment Upcoming Encounters Date Type Department Care Team (Late st Contact Info) Description 02/21/2025 1:00 PM AGRONOMIST Telemedicine [facility] [address] [place] [address] 02/21/2025 3:45 PM AGRONOMIST [facility] [place] [address] [facility] [place] [place] [phone] David Salmon MD [address] [phone] 02/24/2025 3:30 PM AGRONOMIST Telemedicine [facility] [address] [place] [address] [phone] Alzie Acosta, SUPPORT SERVICES COORDINATOR, ROPE MAKER [address] [place] [address] 03/04/2025 3:10 PM [facility]OMIST [facility] [place] [address] [place] [phone] 03/07/2025 2:15 PM AGRONOMIST Office [facility] - [place] [address] [place] [phone] Tani Biggs [facility] [address] [place] [phone] 03/17/2025 1:30 PM AGRONOMIST Lab [facility] Services [address] [place] [phone] Melony Asif, PAC [address] [place] [address] Discharge Disposition: Discharged to home or Selfcare 03/25/2025 1:20 PM AGRONOMIST Office Visit [facility] Services [address] [place] [phone] Melony Asif, PAC [address] [place] [address] Discharge Disposition: Discharged to home or Selfcare 04/25/2025 2:00 PM AGRONOMIST Office Visit [facility] - Cardiology - [place] [address] [place] [address] Laisha Griffin DO [address] [address] 07/18/2025 1:00 PM CDT Office Visit [facility] - Pulmonology & Sleep Medicine - [place] [address] [place] [phone] Dom Quiñonez MD [address] [place] [address] Health Maintenance Due Date Last Done Comments HPV/Cotest 06/01/1999 Cologuard 2014 Immunochemical Fecal Occult Blood 2014 Respiratory Syncytial Virus (RSV) Immunization (Adult) (1 - Risk 50-74 years 1-dose series) 06/01/2019 Zoster Immunization (2 of 2) 09/07/2022 07/13/2022 Mammogram 06/20/2023 06/19/2022, 02/16/2020 Medicare Initial AWV [id number] 11/09/2023 Cervical Cancer Screening (CCS) 09/26/2024 Pap Smear 09/26/2024 09/26/2021, 03/29/2020 Lung Cancer Screening 10/21/2024 10/22/2023 , 10/22/2023, 06/18/2023 Influenza Immunization (#1) 11/08/202401/10, 11/13/2021, 11/30/2020, Additional history exists Diabetes: Foot Exam 11/13/2024 11/14/2023, 10/30/2022, 06/07/2022 Diabetes: Eye Exam 11/30/2024 12/01/2023, 1 , 04/26/2022, Additional history exists Diabetes: Hemoglobin A1c 05/18/2025 025, 08/17/2024, 01/25/2024, Additional history exists Diabetes: Nephropathy Screening 09/13/2025 09/13/2024, 08/18/2024, 07/20/2024, Additional history exists Colonoscopy 10/30/2027 10/29/2017, 10/29/2017 Colorectal Cancer Screening 10/30/2027 Td Immunization Every 10 Years (Adults With 1 Tdap) 06/07/2032 06/07/2022 Diabetes: Celiac Disease Screening Discontinued 11/30/2020, 11/30/2020 [...] associated with goal: [facility] Steps to achieve goal: Walking [...] a change Department associated with goal: [facility] Steps to [...] diet Depression Depression Improving(0 03/15/2022 2:27 PM AGRONOMIST) No Breanne Saldana LCSW Note: Goal/Objective: Decrease [...] Ready to change Department associated with goal: [facility] Steps to [...] is salt. Medical Devices Implanted Type Area Play Writer Device Identifier Shelf Expiration Date Model / Serial / Lot Device Clsr 6-7fr Mynxgrip Photo Printer Vasc Bln Cath Lock Syr Integrate Sealant 10ml Disp - [id number] Implanted:Qty : 1 on 11/07/2017 by Divina Xie MD at [facility] IMPLANT Right: [employer] 10/08/2019 [id number] / / [id number] Procedures Procedure Name Priority Date/Time Associated Diagnosis Comments PAIN CONSULT 01/03/2025 12:00 AM CDT NEUROSURGY CONSULT 12/24/2024 12 :00 AM CDT INTERVENTIONAL RADIOLOGY PROCEDURE 12/03/2024 12:00 AM CDT POCT GLYCOSYLATED HEMOGLOBIN Routine 11/18/2024 3:56 PM CDT Type 2 diabetes mellitus with hyperglycemia, without long-term current use of insulin (HCC) BASIC METABOLIC PANEL W/ CALCIUM TOTAL Routine 11/18/2024 3:15 PM CDT Decreased GFR N-TERMINAL- PRO B TYPE NATRIURETIC PEPTIDE Routine 11/18/2024 3:15 PM CDT Hypertension, essential Chronic combined systolic and diastolic CHF (congestive heart failure) (HCC) NM CARD MULTI SPECT WITH WALL MOTION AND EJECTION FRACTION Routine 11/12/2024 9:46 AM CDT Chronic combined systolic and diastolic CHF (congestive heart failure) (HCC) Dyspnea on exertion ADULT CV STRESS PHARMACOLOGIC W NUC MED Routine 11/12/2024 9:25 AM CDT Chronic combined systolic and diastolic CHF (congestive heart failure) (HCC) Dyspnea on exertion CMP (COMPREHENSIVE METABOLIC PANEL) Routine 09/13/2024 10:54 AM CDT Anemia, unspecified type HM DILATED EYE EXAM 12/01/2023 1 2:[address] CHEST SCREENING WO Routine 06/18/2023 12:34 PM CDT Ground glass opacity present on imaging of lung HEPATITIS C ANTIBODY Routine 08/19/2022 12:26 PM CDT Gout, unspecified cause, unspecified chronicity, unspecified site Other specified abnormal immunological findings in serum Osteoarthritis of multiple joints, unspecified osteoarthritis type Allergy, initial encounter Other specified counseling 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 textile engineer (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 YAZAN SCREENING BILATERAL DIGITAL W CAD W ROSEANN Routine 06/19/2022 3:15 PM CDT Encounter for screening mammogram for breast cancer PATHOLOGY CYTOLOGY COLLAR PADDER BLINDSTITCH Routine 9:23 AM CDT Vaginal odor CELIAC ANTIBODY PANEL Routine 11/30/2020 8:41 AM CDT SI (sacroiliac) pain Acute bilateral low back pain with bilateral sciatica Low lying conus medullaris (HCC) from Last 3 Months or Most Recently Relevant to Health Maintenance Results * PAIN CONSULT (01/03/2025 12:00 AM CDT) 01/03/2025 us Provider Scan GENERIC SCAN ORDERS CONSULT Donna l Result Performing Organization Address City/[facility]/ZIP Co de Phone Number SCAN * NEUROSURGY CONSULT (12/24/2024 12:00 AM CDT) 12/24/2024 us Provider Scan GENERIC SCAN ORDERS CONSULT Donna l Result Performing Organization Address [facility]/ZIP Co de Phone Number SCAN * INTERVENTIONAL RADIOLOGY PROCEDURE (12/03/2024 12:00 AM CDT) 12/03/2024 us Provider Scan GEN ORDERS Final Result Performing Organization Address City/[facility]/ZIP Co de Phone Number SCAN * (ABNORMAL) POCT GLYCOSYLATED HEMOGLOBIN (11/18/2024 3:56 PM CDT) HGB-A1C 7.7(A) 4 - 6 % Blood 11/18/2024 3:56 PM CDT us David Salmon MD POINT OF CARE TESTING (MANUAL) F inal Result * N-TERMINAL- PRO B TYPE NATRIURETIC PEPTIDE (11/18/2024 3:15 PM CDT) Pathologist [facility] NT PROBNP 91.4 <450.0 pg/mL 11/18/2024 5:[address] Comment: AGE pg/mL INTERPRETATION All <300 [...] Acosta APRN, CNP CHEMISTRY ORDERABLES Final Result [facility] [address] [place] [address] * (ABNORMAL) BASIC METABOLIC PANEL W/ CALCIUM TOTAL (11/18/2024 3:15 PM CDT) Pathologist [facility] SODIUM 137 136 - 145 mmol/L 11/18/2024 5:[address] [facility] POTASSIUM 4.3 3.5 - 5.1 mmol/L 11/18/2024 5:[address] CHLORIDE 103 98 - 107 mmol/L 11/18/2024 5:[address] CO2, VENOUS 23 22 - 30 mmol/L 11/18/2024 5:[address] [facility] ANION GAP 15.3 <18.0 mmol/L 11/18/2024 5:02 PM T [facility] GLUCOSE 159(H) 70 - 99 mg/dL 11/18/2024 5:02 PM [facility] [facility] BUN 17 10 - 20 mg/dL 11/18/2024 5:02 PM [facility] CREATININE, BLOOD 1.04(H) 0.60 - 1.00 mg/dL 11/18/2024 5:02 PM T [facility] BUN/CREATININE RATIO 16 12 - 20 ratio 11/18/2024 5:02 PM [facility] CALCIUM 10.3 8.7 - 10.5 mg/dL 11/18/2024 5:02 PM [facility] IS THE PATIENT REQUIRED TO BE FASTING? No 11/18/2024 5:02 PM [facility] GFR, ESTIMATED >60 >=60 11/18/2024 5:02 PM [facility] Comment: Creatinine Clearance is the preferred criteria for selecting drug dose adjustments in renally impaired patients. The GFR is provided as additional pertinent clinical information. GFR is reported in mL/min/1.73 sq m. Calculation based on the 2020 Chronic Kidney Disease Epidemiology Collaboration (CKD-EPI) equation refit without adjustment for race. GFR, EST. >60 >=60 025 5:02 PM [facility] Comment: Creatinine Clearance is the preferred criteria for selecting drug dose adjustments in renally impaired patients. The GFR is provided as additional pertinent clinical information. GFR is reported in mL/min/1.73 sq m. Calculation based on the 2009 Chronic Kidney Disease Epidemiology Collaboration (CKD-EPI). GFR, EST. NONAFRICAN 55(L) >=60 11/18/2024 5:02 PM [facility] Comment: Creatinine Clearance is the preferred criteria for selecting drug dose adjustments in renally impaired patients. The GFR is provided as additional pertinent clinical information. GFR is reported in mL/min/1.73 sq m. Calculation based on the 2009 Chronic Kidney Disease Epidemiology Collaboration (CKD-EPI). Blood Venipuncture / Unknown 11/18/2024 3:15 PM CDT 11/18/2024 4:34 PM CDT us Amber Aldrich APRN, LIDA CHEMISTRY ORDAlisa ZHOUAMOL Final Result [facility] [address] [place] [address] * NM CARD MULTI SPECT WITH WALL [...] less likely true ischemia. 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 [employer] Email: Office phone: [phone] [place]arsh[place] ([place]) Office: [phone]' Amberpeyman Farias Valdemar WELLS, LIDA IMG NM CARDIAC NI ORDERABLES Final Result * ADULT CV STRESS PHARMACOLOGIC W NUC MED (11/12/2024 9:25 AM CDT) Anatomical Region Laterality Modality CARDIO N/A Electrocardiogra phy Narrative 11/16/2024 4:02 PM CDT Non-Imaging Stress Test Patient Name HANNAH Littlejohn Laura 1970 Patient ID (UP) [id number] Indications: Chest pain. Study Date11/12/2024 Type of [...] - Lexiscan Protocol Peak HR: 99 bpm [id number] Peak BP: 125/87 mmHg Predicted HR: 165 [...] Weight 172 lbs. BMI 30.48 kg/m^2 Stress Manager Camp Nurse Albert Ibarra RN Interpreting Hubert Referring Physician Sharri Physician Procedure Note Sharri Gaspar MD - 11/16/2024 Non-Imaging Stress Test Patient Name HANNAH Littlejohn Laura 1970 Patient ID (UPI) [id number] Indications: Chest pain. Study Date11/12/2024 Type of [...] - Lexiscan Protocol Peak HR: 99 bpm [id number] Peak BP: 125/87 mmHg Predicted HR: 165 [...] Weight 172 lbs. BMI 30.48 kg/m^2 Stress Manager Camp Nurse Albert Ibarra RN Interpreting Gaspar Referring Physician Sharri Physician Amber Aldrich APRN, CNP IM STRESS Final Result * (ABNORMAL) CMP (COMPREHENSIVE METABOLIC PANEL) (09/13/2024 10:54 AM CDT) SODIUM 137 136 - 145 mmol/L 09/13/2024 11:40 AM CDT [facility] POTASSIUM 4.6 3.5 - 5.1 mmol/L 09/13/2024 11:40 AM CDT [facility] CHLORIDE 112(H) 98 - 107 mmol/L 09/13/2024 11:40 AM CDT [facility] CO2, VENOUS 16(L) 22 - 30 mmol/L 09/13/2024 11:40 AM CDT [facility] ANION GAP 13.6 <18.0 mmol/L 09/13/2024 11:40 AM CDT [facility] GLUCOSE 150(H) 70 - 99 mg/dL 09/13/2024 11:40 AM CDT [facility] BUN 24(H) 10 - 20 mg/dL 09/13/2024 11:40 AM CDT [facility] CREATININE, BLOOD 1.13(H) 0.60 - 1.00 mg/dL 09/13/2024 11:40 AM T [facility] BUN/CREATININE RATIO 21(H) 12 - 20 ratio 09/13/2024 11:40 AM CDT [facility] TOTAL PROTEIN 7.7 6.0 - 8.0 g/dL 09/13/2024 11:40 AM T [facility] ALBUMIN 4.3 3.5 - 5.0 g/dL 09/13/2024 11:40 AM T [facility] A/G RATIO 1.3 1.0 - 2.2 09/13/2024 11:40 AM T [facility] CALCIUM 10.5 8.7 - 10.5 mg/dL 09/13/2024 11:40 AM [facility] T BILI 0.3 0.2 - 1.2 mg/dL 09/13/2024 11:40 AM [facility] SGOT (AST) 34 <43 U/L 09/13/2024 11:40 AM [facility] SGPT (ALT) 26 <56 U/L 09/13/2024 11:40 AM [facility] ALKALINE PHOSPHATASE 88 40 - 150 U/L 09/13/2024 11:40 AM [facility] IS THE PATIENT REQUIRED TO BE FASTING? No 09/13/2024 11:40 AM [facility] GFR, ESTIMATED 57(L) >=60 09/13/2024 11:40 AM [facility] Comment: Creatinine Clearance is the preferred criteria for selecting drug dose adjustments in renally impaired patients. The GFR is provided as additional pertinent clinical information. GFR is reported in mL/min/1.73 sq m. Calculation based on the Chronic Kidney Disease Epidemiology Collaboration (CKD- EPI) equation refit without adjustment for race. GFR, EST. >60 >=60 025 11:40 AM T [facility] GFR, EST. NONAFRICAN 50(L) >=60 09/13/2024 11:40 AM CDT [facility] Blood Venipuncture / Unknown 09/13/2024 10:54 AM CDT 09/13/2024 10:54 AM CDT us Melony Asif PAC CHEMISTRY ORDERABLES Donna l Result [facility] [address] [place] [address] * HM DILATED EYE EXAM (12/01/2023 12:00 AM CDT) 12/01/2023 us Provider Scan PROCEDURE/MINOR SURGICAL ORDERAB LES Final Result Performing Organization Address City/[facility]/ZIP Co de Phone Number SCAN * CT CHEST SCREENING WO (06/18/2023 [...] Pavithra Ledbetter M.D. FT: FT Report ID: [id number] Reading Location: [id number] Procedure Note Pavithra Pollock MD - 06/21/2023 [...] Pavithra Ledbetter M.D. FT: FT Report ID: [id number] Reading Location: [id number] IMPRESSION: Unchanged bilateral patchy ground-glass opacities, greatest [...] CDT) hepatitis C antibody 0.07 <1 S/CO [facility] ARCH [id number] B 08/19/2022 9:49 PM CDT [facility] Comment: Signal/Cutoff ratio < 0.79 is Nondetected Signal/Cutoff ratio 0.80-0.99 is Grayzone Signal/Cutoff ratio > 0.99 is Detected Supplemental assays are recommended if signal/cutoff ratio is >/=1.00. Signal/cutoff ratio result >/= 5.00 is 97% predictive of positivity for recombinant immunoblot assay (RIBA) and will be reported to the [place] Department of Public Health as required. Blood Venipuncture / Unknown 08/19/2022 12:26 PM CDT 08/19/2022 12:38 PM CDT us Tarsha Fernandez MD CHEMISTRY ORDERABLES Final Res ult [facility] [address] [place] [address], * YAZAN SCREENING BILATERAL DIGITAL W CAD [...] Comparison is made to exam dated: 02/16/2020 [facility]. BREAST TISSUE:There are scattered fibroglandular densities in [...] her next screening exam. Electronically signed by: Sloange huynh/penrad:06/19/2022 16:18:35 Auto Haulaway Driver(s): ESTHER Hector)(Annetta), [facility] letter sent: Normal Exam Reading location: [facility] BI-RADS: 1 Negative Procedure Note Solange Evangelista [...] Comparison is made to exam dated: 02/16/2020 [facility]. BREAST TISSUE:There are scattered fibroglandular densities in [...] signed by: Solange Evangelista M.D. ab/penrad:06/19/2022 16:18:35 Auto Haulaway Driver(s): ESTHER Hector)(M), [facility] letter sent: Normal Exam Reading location: [facility] BI-RADS: 1 Negative Emilia Tang MD IMG MAMMO ORDERABLES Final R esult * PATHOLOGY CYTOLOGY COLLAR PADDER BLINDSTITCH (09/26/2021 9:23 AM CDT) SPECIMEN ADEQUACY Satisfactory for evaluation. Endocervical/transf ormation zone component is absent. 09/28/2021 9:05 AM CDT [facility] DESCRIPTIVE DIAGNOSIS NEGATIVE FOR INTRAEPITHELIAL LESIONS OR MALIGNANCY. 09/28/2021 9:05 AM CDT [facility] at 0905 CDT OTHER FINDINGS Fungal organisms present, morphologically consistent with Kristen species. 09/28/2021 9:05 AM CDT [facility] HPV Reflex if ASCUS? Yes 09/28/2021 9:05 AM CDT [facility] Automated Examination Analysis of this sample has been assisted by an automated imaging and review system ([employer] System, [employer], [place], [place]). This case is further evaluated and finalized by a agriculture teacher and/or pathologist. 09/28/2021 9:05 AM CDT [facility] Disclaimer The PAP smear is [...] indicated. 09/28/2021 9:05 AM CDT [facility] Other SPECIMEN FROM CERVIX OR VAGINA / Unknown Non-Phlebotomy Collection / Unknown 09/26/2021 9:23 AM CDT 09/26/2021 9:23 AM CDT us Jackeline Dimas APRN, LIDA PATHOLOGY/CYTOLOGY MYLENE HAMMER Final Result [facility] [address] [place] [address], [place] from Last 3 Months or Most Recently Relevant to Health Maintenance Insurance MEDICARE C ClinicIQCARE MEDICARE C Comp[employer]HEALTHCARE Advance Directives Documents on File Type Date Recorded Patient Supervisor Sewer System Expl anation Power of Undercover Operator for Health Care 05/23/2021 2:13 PM POA-HC [...] measures to stabilize the patient. Care Teams Frame Aligner Relationship Specialty Start Date End Date Tani Biggs, PAC [address] [place] [id number] PCP - General Physician Industrial Cook 05/31/24 Phil Jacobo MD [address] [place] [address] Consulting Physician Neurology 03/07/21 Rajiv Mccormack, KELI [address] [place] [address] Nurse Practitioner Gastroenterology 03/07/21 Alize Acosta APRN, ROPE MAKER [facility] [place] [address] Virtual Advanced Care (VAC) DEALMAKER Advanced Practice Nurse 08/30/21 David Salmon MD #[address] [phone] Consulting Physician Endocrinology 01/15/22 Maurilio Farley MD [address] [address] Consulting Physician Colon and Rectal Surgery 09/20/22 Dom Quiñonez MD [address] [place] [address] Consulting Physician Pulmonary Disease 11/19/21 Rachelle Nava APRN, WIRE WINDING MACHINE TENDER [address] [place] [address] Nurse Practitioner Advanced Practice Nurse 07/19/22 Sharri Gaspar MD 2 [facility] [address] [address] Consulting Physician Cardiology 04/26/24 Amber Aldrich APRN, ROPE MAKER [address] [place] [address] Nurse Practitioner Cardiology 07/30/24
--- OUTSIDE RECORDS SUMMARY | 2025-02-04 11:13 | XMS_ITS | Encounter Summary ---
Author Organization [facility] Address [address] [place] [address] Phone Care Team Providers Care Manager Strategic Sourcing Name Role Phone Phil Jacobo MD Unavailable [phone] Rajiv Mccormack MANAGEMENT TRAINEE Unavailable Unavailable Alize Acosta APRN, MEMBERSHIP DIRECTOR Unavailable [phone] Dayo Chaney MD Unavailable Juanita Hauser RN Unavailable UnavailDavid Alexandre MD Unavailable Maurilio Farley MD Unavailable Rebeka Trinidad MD Primary Care Provider + [phone] Dom Quiñonez MD Unavailable Rachelle Nava BENCH SCIENTIST, FUR SORTER Unavailable + [phone] Irais Naylor BENCH SCIENTIST, MEMBERSHIP DIRECTOR Unavailable + [phone] Lorri Leo BENCH SCIENTIST, MEMBERSHIP DIRECTOR Primary Care Provider + [phone] Rebeka Trinidad MD Primary Care Provider + [phone] Lorri Leo BENCH SCIENTIST, MEMBERSHIP DIRECTOR Primary Care Provider + [phone] Sharri Gaspar MD Unavailable Tani Biggs [facility] Primary Care Provider [phone] Amber Aldrich APRN, CNP Unavailable Reason for Visit * Reason Comments Medication Refill Encounter Details Date Type Department Care Team (Late st Contact Info) Description 07/18/2023 Refill [facility] - Primary Care - [place] [address] [place] [address] Emilia Tang MD [address] [place] [address] Medication Refill Social History Tobacco Use Types Packs/Day Years Used Date Smoking Tobacco: Former Cigarettes 1 37.1 1 985 - 04/12/2021 Smokeless Tobacco: Never Alcohol Use Standard Drinks/Week Comments Not Currently 0 (1 standard drink = 0.6 oz pur e alcohol) last drank 2020 [facility] Utilities Answer Date Recorded In the past 12 months has [employer] electric, gas, oil, or water [employer] threatened to shut off services in your home? No 03/24/2023 Social Connection and Isolation Panel Answer Date Recorded In a typical week, how many times do you talk on the phone with family, friends, or neighbors? Once a week 03/24/2023 How often do you get togethe r with friends or relatives? Never 03/24/2023 How often do you attend [facility] or hinduism services? More than 4 times per year [...] Total Score - Questions 1-9 18 10/10 [facility] - Occupational Stress Questionnaire Answer [...] in a correction (including now)? 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 Not on file Not on file documented as of this encounter Plan of Treatment Upcoming Encounters Date Type Department Care Team (Late st Contact Info) Description 02/21/2025 1:00 PM WEB ANALYTICS SPECIALIST Telemedicine [facility] [address] [place] [address] 02/21/2025 3:45 PM WEB ANALYTICS SPECIALIST Office Visit [facility] Endocrinology [facility] [address] [place] [address] David Salmon MD #[address] [phone] 02/24/2025 3:30 PM WEB ANALYTICS SPECIALIST Telemedicine [facility] [address] [place] [address] Alize Acosta, RUSSELL, MEMBERSHIP DIRECTOR [address] [place] [address] 03/04/2025 3:10 PM WEB ANALYTICS SPECIALIST Lab [facility] [place] [address] [place] [address] 03/07/2025 2:15 PM WEB ANALYTICS SPECIALIST Office Visit [facility] Primary Care - [place] [address] [place] [address] Tani Biggs PAC [address] [place] [address] 03/17/2025 1:30 PM WEB ANALYTICS SPECIALIST [facility] [address] [place] [address] Melony Asif August, PAC [address] [place] [address] Discharge Disposition: Discharged to home or Selfcare 03/25/2025 1:20 PM WEB ANALYTICS SPECIALIST Office Visit [facility] Oncology Services [address] [place] [address] AsifMelony August, PAC [address] [place] [address] Discharge Disposition: Discharged to home or Selfcare 04/25/2025 2:00 PM WEB ANALYTICS SPECIALIST Office Visit [facility] - Cardiology - [place] [address] [place] [address] Laisha Griffin, DO [address] [address] 07/18/2025 1:00 PM CDT Office Visit [facility] Pulmonology & Sleep Medicine [facility] [address] [place] [phone] Dom Quiñonez MD [address] [place] [address] documented as of this encounter Goals Goal [...] 09/22/2023 3:12 PM CDT) Yes Hilda Tinajero, [facility] Note: Goal/Objective: Decrease symptoms of depression and anxiety. Anticipated Time Frame for Goal Completion: 3 months Goal Reviewed with: patient Readiness to change: Thinking about making a change Department associated with goal: [facility] Steps to [...] diet Depression Depression Improving(0 03/15/2022 2:27 PM WEB ANALYTICS SPECIALIST) No Breanne Saldana LCSW Note: Goal/Objective: [...] 19 04/18/2024 04/18/2024 04/18/2024 10:4 7 PM WEB ANALYTICS SPECIALIST Respiratory Rule-Out 05/06/2024 05/06/2024 025 9:20 AM WEB ANALYTICS SPECIALIST COVID - 19 05/06/2024 05/06/2024 05/06/2024 9:19 AM WEB ANALYTICS SPECIALIST Assessment Noted Time PHQ-9 Depression Total Score: 18 023 9:24 AM CDT documented as of this encounter Care Teams Manager Strategic Sourcing Relationship Specialty Start Date End Date Rebeka Trinidad MD [address] [place] [address] PCP - General Family Medicine 03/26/23 03/29/24 Lorri Leo APRN, MEMBERSHIP DIRECTOR [address] [place] [address] PCP - General Certified Nurse Practitioner 03/30/24 04/20/24 Rebeka Trinidad MD [address] [place] [address] PCP - General Family Medicine 04/21/24 04/21/24 Lorri Leo APRN, MEMBERSHIP DIRECTOR [address] [place] [address] PCP - General Certified Nurse Practitioner 04/22/24 05/30/24 Tani Biggs PAC [address] [place] [phone] PCP - General Physician Call Center Dispatcher 05/31/24 Phil Jacobo MD [address] [place] [address] Consulting Physician Neurology 03/07/21 Rajiv Mccormack, KELI [address] [place] [address] Nurse Practitioner Gastroenterology 03/07/21 Alize Acosta, BENCH SCIENTIST, MEMBERSHIP DIRECTOR [address] [place] [address] Virtual Advanced Care (VAC) MOUNTER BRASS W[employer] INSTRUMENTS Advanced Practice Nurse 08/30/21 Dayo Chaney MD [address] [place] [address] Senior Property Accountant Cardiovascular Disease - Cardiology 09/20/21 02/12/24 Juanita Mercado RN PR Registered Nurse Cardiology 12/24/21 02/12/24 David Salmon MD #[address] [phone] Consulting Physician Endocrinology 01/15/22 Maurilio Farley MD #[address] [address] Consulting Physician Colon and Rectal Surgery 09/20/22 Dom Quiñonez MD [address] [place] [phone] Consulting Physician Pulmonary Disease 11/19/21 Rachelle Nava APRN, FUR SORTER [address] [place] [address] Nurse Practitioner Advanced Practice Nurse 07/19/22 Irais Naylor APRN, MEMBERSHIP DIRECTOR [address] [facility], [address] [place] [address] Nurse Practitioner Cardiology 06/27/23 07/29/24 Sharri Gaspar MD 2 [facility] [address], [address] [place] [address] Consulting Physician Cardiology 04/26/24 Amber Aldrich, BENCH SCIENTIST, MEMBERSHIP DIRECTOR [address] [place] [address] Nurse Practitioner Cardiology 07/30/24 documented as of this encounter
--- OUTSIDE RECORDS SUMMARY | 2025-02-04 11:13 | XMS_ITS | Encounter Summary ---
Author Organization [facility] Address [address] [place] [address] Phone Care Team Providers Care Product Info Specialist Name Role Phone Phil Jacobo MD Unavailable [phone] Rajiv Mccormack COOKER CASING Unavailable Unavailable Alize Acosta TRACTOR CRANE ENGINEER, GLOBAL SALES EXECUTIVE Unavailable David Salmon MD Unavailable Maurilio Farley MD Unavailable Dom Quiñonez MD Unavailable Rachelle Nava TRACTOR CRANE ENGINEER, ELECTRICAL INSTALLATION INSPECTOR Unavailable + [phone] Irais Naylor TRACTOR CRANE ENGINEER, GLOBAL SALES EXECUTIVE Unavailable + [phone] Lorri Leo TRACTOR CRANE ENGINEER, GLOBAL SALES EXECUTIVE Primary Care Provider + [phone] Rebeka Trinidad MD Primary Care Provider + [phone] Lorri Leo TRACTOR CRANE ENGINEER, GLOBAL SALES EXECUTIVE Primary Care Provider + [phone] Sharri Gaspar MD Unavailable Tani Biggs PAC Primary Care Provider [phone] Amber Aldrich TRACTOR CRANE ENGINEER, GLOBAL SALES EXECUTIVE Unavailable Reason for Referral * PT/OT/ST (Routine) - Open Specialty Diagnoses / Procedures Referred By Harika tobar Referred To Contact Physical Therapy Diagnoses Spinal stenosis, lumbar region without neurogenic claudication Li Castañeda APN, GLOBAL SALES EXECUTIVE [address] [place] [address] Phone: tel: fax: [facility] [address] [facility], [address] [address] Phone: tel: fax: Referral ID Status Reason Start Date Expiration Date Visits Re quested Visits Authorized [id number] Open 04/08/2024 50 10 Scheduling Instructions E DEVELOPER Encounter Details Date Type Department Care Team (Latest Contact Info) Description 04/08/2024 Transcribe Orders [facility] [address] [place] [phone] Li Castañeda APN, GLOBAL SALES EXECUTIVE [address] [place] [address] Spinal stenosis, lumbar region without neurogenic claudication (Primary Dx) Social History Tobacco Use Types Packs/Day Years Used Date Smoking Tobacco: Every Day Cigarettes 1 37.1 Started: 1984; Last attempted to quit: 04/12/2021 Smokeless Tobacco: Never Alcohol Use Standard Drinks/Week Comments Not Currently 0 (1 standard drink = 0.6 oz pur e alcohol) Last drink in 2020 [facility] Utilities Answer Date Recorded In the past 12 months has [employer] gas, oil, or water company threatened to [...] often do you attend chur ch or evangelical services? 1 to 4 times per year [...] Total Score - Questions 1-9 21 03/10 [facility]at [facility] - Occupational Stress Questionnaire Answer Date [...] time in the past [address] 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 on file Not on file documented as of this encounter Plan of Treatment Upcoming Encounters Date Type Department Care Team (Late st Contact Info) Description 02/21/2025 1:00 PM SLIDE DEVELOPER Telemedicine [facility] [address] [place] [address] 02/21/2025 3:45 PM SLIDE DEVELOPER Office [facility] - Endocrinology - [place] [address] [place] [address] David Salmon MD [address] [address] 02/24/2025 3:30 PM SLIDE DEVELOPER Telemedicine [facility] [address] [place] [address] Alize Acosta, TRACTOR CRANE ENGINEER, GLOBAL SALES EXECUTIVE [address] [place] [phone] 03/04/2025 3:10 PM SLIDE DEVELOPER [facility] [place] [address] [place] [phone] 03/07/2025 2:15 PM SLIDE DEVELOPER Office Visit [facility] Primary [facility] - [place] [address] [place] [phone] Tani Biggs, PAC [address] [place] [address] 03/17/2025 1:30 PM SLIDE DEVELOPER [facility] [address] [place] [phone] Melony Asif, PAC [address] [place] [address] Discharge Disposition: Discharged to home or Selfcare 03/25/2025 1:20 PM SLIDE DEVELOPER [facility] [address] [place] [address] Melony Asif, PAC [address] [place] [address] Discharge Disposition: Discharged to home or Selfcare 04/25/2025 2:00 PM SLIDE DEVELOPER Office Visit [facility] Card[facility] [address] [place] [phone] Laisha Griffin, DO [address] [address] 07/18/2025 1:00 PM CDT Office Visit [facility] - Pulmonology & Sleep Medicine - [place] [address] [place] [address] Dom Quiñonez MD [address] [facility] [place] [address] Scheduled Referrals Name Type Priority Associated Diagnoses [...] Readiness to change: Department associated with goal: [facility] Steps to achieve goal: [...] change Department associated with goal: [facility] Steps to [...] diet Depression Depression Improving(0 03/15/2022 2:27 PM SLIDE DEVELOPER) No Breanne Saldana LCSW Note: Goal/Objective: Decrease [...] 19 04/18/2024 04/18/2024 04/18/2024 10:4 7 PM SLIDE DEVELOPER Respiratory Rule-Out 05/06/2024 05/06/2024 025 9:20 AM SLIDE DEVELOPER COVID - 05/06/2024 05/06/2024 05/06/2024 9:19 AM SLIDE DEVELOPER Assessment Noted Time PHQ-9 Depression Total Score: 21 025 4:05 PM SLIDE DEVELOPER documented as of this encounter Care Teams Product Info Specialist Relationship Specialty Start Date End Date Lorri Leo, TRACTOR CRANE ENGINEER, GLOBAL SALES EXECUTIVE [address] [id number] PCP - General Certified Nurse Practitioner 03/30/24 04/20/24 Rebeka Trinidad MD [address] [place], [place] [id number] PCP - General Family Medicine 04/21/24 04/21/24 Lorri Leo APRN, GLOBAL SALES EXECUTIVE [address] [place], [place] [id number] PCP - General Certified Nurse Practitioner 04/22/24 05/30/24 Tani Biggs, [facility] [address] [place] [phone] PCP - General Physician Digital Composer 05/31/24 Phil Jacobo MD [address] [place] [address] Consulting Physician Neurology 03/07/21 Rajiv Mccormack, KELI [address] [place] [address] Nurse Practitioner Gastroenterology 03/07/21 Alize Acosta APRN, GLOBAL SALES EXECUTIVE [address] [place] [address] [place] [address] Virtual Advanced Care (VAC) TITLE SPECIALIST Advanced Practice Nurse 08/30/21 David Salmon MD #[address] [phone] Consulting Physician Endocrinology 01/15/22 Maurilio Farley MD #[address] [address] Consulting Physician Colon and Rectal Surgery 09/20/22 Dom Quiñonez MD #[address] [place] [address] Consulting Physician Pulmonary Disease 11/19/21 Rachelle Nava, TRACTOR CRANE ENGINEER, ELECTRICAL INSTALLATION INSPECTOR [address] [place] [address] Nurse Practitioner Advanced Practice Nurse 07/19/22 Irais Naylor, TRACTOR CRANE ENGINEER, GLOBAL SALES EXECUTIVE #2 [facility] [address] [place] [address] Nurse Practitioner Cardiology 06/27/23 07/29/24 Sharri Gaspar MD 2 [facility] [place] [facility] [address] [place] [address] Consulting Physician Cardiology 04/26/24 Amber Aldrich, TRACTOR CRANE ENGINEER, GLOBAL SALES EXECUTIVE [address] [place] [address] Nurse Practitioner Cardiology 07/30/24 documented as of this encounter
--- OUTSIDE RECORDS SUMMARY | 2025-02-04 11:13 | XMS_ITS | Clinical Summary ---
Author Organization [facility] Address [address] [place] [address] Phone Care Team Providers Care Industrial Gas Fitter Name Role Phone Unavailable Primary Care Provider [...] by mouth 2 times daily. Active Insulin Mcalester, Disposable, (BD Ultra-Fine Short Pen Needle) 31 [...] with breakfast. Active naloxone (NARCAN) 4 mg/spray [place], Non-Aerosol Administer 4 mg in one nostril [...] Encounters Date Type Department Care Team Description 01/25/2025 External Device Data STL ABSTRACTION Provider, Abstract 01/18/2025 External Device Data STL ABSTRACTION Provider, Abstract 01/18/2025 External Device Data STL ABSTRACTION Provider, Abstract 01/11/2025 External Device Data STL ABSTRACTION Provider, Abstract 12/28/2024 External Device Data STL ABSTRACTION Provider, Abstract 12/14/2024 External Device Data STL ABSTRACTION Provider, Abstract 11/30/2024 External Device Data STL ABSTRACTION Provider, [...] Comments Blood Pressure 115/66 01/28/2024 4:25 AM GAS APPLIANCE INSTALLER Pulse 79 01/28/2024 4:25 AM GAS APPLIANCE INSTALLER Temperature 36.9 C (98.4 F) 01/28/2024 4:25 AM GAS APPLIANCE INSTALLER Respiratory Rate 16 01/28/2024 4:25 AM GAS APPLIANCE INSTALLER Oxygen Saturation 100% 01/28/2024 4:25 AM GAS APPLIANCE INSTALLER Inhaled Oxygen Concentration - - Weight 77.9 kg (171 lb 11.2 oz) 01/25/2024 2:00 AM GAS APPLIANCE INSTALLER Height 162.6 cm (5' 4) 01/25/2024 2:00 AM GAS APPLIANCE INSTALLER Body Mass Index 29.47 01/25/2024 2:00 AM GAS APPLIANCE INSTALLER Plan of Treatment Health Maintenance Due Date [...] Comments COLONOSCOPY REPORT 01/27/2024 10 :31 AM GAS APPLIANCE INSTALLER HEMOGLOBIN A1C Stat 01/25/2024 8:08 AM GAS APPLIANCE INSTALLER from Last 3 Months or Most Recently Relevant to Health Maintenance Results * COLONOSCOPY REPORT (01/27/2024 10:31 AM GAS APPLIANCE INSTALLER) Narrative Procedure Note Roman Pang MD - 01/27/2024 10:31 AM CST [facility] Endoscopy Patient Name: Jodie Sutton Procedure Date: [...] of Addenda: [address]; [place] [address] Roman Pang MD GI PROCEDURE ORDERABLES Final Re sult * HEMOGLOBIN A1C (01/25/2024 8:08 AM GAS APPLIANCE INSTALLER) HEMOGLOBIN A1C 5.3 <5.7 % 01/25/2024 2:20 PM GAS APPLIANCE INSTALLER [facility] EST. AVG GLUCOSE, A1C 105 mg/dL 01/25/2024 2:20 PM [facility] Blood Venipuncture / Unknown 01/25/2024 8:08 AM GAS APPLIANCE INSTALLER 01/25/2024 8:12 AM GAS APPLIANCE INSTALLER Narrative [facility] - [facility] - 01/25/2024 2:20 PM GAS APPLIANCE INSTALLER HGB A1C INTERPRETATION NORMAL: <5.7% PRE-DIABETES: 5.7 - 6.4% DIABETES: 6.5% OR GREATER Scooter Whitley MD CHEMISTRY ORDERABLES Final Re sult [facility] [employer] [facility] CLIA# [id number] [address] [place] [address] from Last 3 Months or Most Recently Relevant to Health Maintenance Insurance [place]ICAID [place] [facility] Advance Directives For more information, please contact: [phone] * Full Code (Latest Code Status on File) Date Activated Date Inactivated Comments 01/24/2024 11:01 PM 01/28/2024 4:29 PM
--- OUTSIDE RECORDS SUMMARY | 2025-02-04 11:13 | XMS_ITS | Encounter Summary ---
Author Organization [facility] Address [address] [place] [address] Phone Care Team Providers Care Mat Repairer Name Role Phone Jackeline Dimas FAMILY AND DIVORCE LEGAL ASSISTANT, STOCK CHECKERER Primary Care Provider Fiona Martinez COMPUTER PROGRAMMER CHIEF Unavailable Unavailab Phil Ellis MD Unavailable [phone] Rajiv Mccormack NP Unavailable Unavailable Renita Quezada RN Unavailable Unavailable Alize Acosta FAMILY AND DIVORCE LEGAL ASSISTANT, STOCK CHECKERER Unavailable [phone] Dayo Chaney MD Unavailable Juanita Hauser RN Unavailable Unavaila David Martinez MD Unavailable Emilia Tang MD Primary Care Provider [phone] Maurilio Farley MD Unavailable Physician, Candida Davis MD Unavailable Rebeka Trinidad MD Primary Care Provider + [phone] Dom Quiñonez MD Unavailable Rachelle Nava FAMILY AND DIVORCE LEGAL ASSISTANT, FISH SALTER Unavailable + [phone] Irais Naylor FAMILY AND DIVORCE LEGAL ASSISTANT, STOCK CHECKERER Unavailable + [phone] Lorri Leo FAMILY AND DIVORCE LEGAL ASSISTANT, STOCK CHECKERER Primary Care Provider + [phone] Rebeka Trinidad MD Primary Care Provider + [phone] Lorri Leo FAMILY AND DIVORCE LEGAL ASSISTANT, [facility] Primary Care Provider [phone] Sharri Gaspar MD Unavailable Tani Biggs Primary Care Provider + [phone] Yolie Aldrichareekaterina Farias FAMILY AND DIVORCE LEGAL ASSISTANT, [facility] Unavailable Reason for Visit * Reason Comments Medication Refill Encounter Details Date Type Department Care Team (Late Contact Info) Description 10/12/2020 Refill [facility] - Primary Care - [place] [address] [place] [address] Jackeline Dimas FAMILY AND DIVORCE LEGAL ASSISTANT, [facility] [address] [place] [address] Medication Refill Social History Tobacco [...] 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 [...] (Late Contact Info) Description 02/21/2025 1:00 PM FIELD CARE MANAGER Telemedicine [facility] [address] [place] [address] 02/21/2025 3:45 PM FIELD CARE MANAGER Office Visit [facility] - Endocrinology - [place] [address] [place] [phone] David Salmon MD [address] [phone] 02/24/2025 3:30 PM FIELD CARE MANAGER Telemedicine [facility] [address] [place] [address] Alize Acosta, FAMILY AND DIVORCE LEGAL ASSISTANT, STOCK CHECKERER [address] [place] [address] 03/04/2025 3:10 PM FIELD CARE MANAGER [facility] [place] [address] [place] [address] 03/07/2025 2:15 PM FIELD CARE MANAGER Office Visit [facility] - Primary Care - [place] [address] [place] [address] Tani Biggs, PAC [address] [place] [address] 03/17/2025 1:30 PM FIELD CARE MANAGER [facility] [address] [place] [address] Melony Asif, PAC [address] [place] [address] Discharge Disposition: Discharged to home or Selfcare 03/25/2025 1:20 PM FIELD CARE MANAGER [facility] [address] [place] [address] Melony Asif, PAC [address] [place] [address] Discharge Disposition: Discharged to home or Selfcare 04/25/2025 2:00 PM FIELD CARE MANAGER [facility] - Cardiology - [place] [address] [place] [address] Laisha Griffin, DO [address] [address] 07/18/2025 1:00 PM CDT Office Visit [facility] - Pulmonology & Sleep Medicine - [place] [address] [place] [phone] Dom Quiñonez MD [address] [place] [address] documented as of this encounter Visit Diagnoses Diagnosis Type 2 diabetes mellitus with hyperglycemia, without long-term current use of insulin documented in this encounter Additional Health Concerns Infection Onset Date Last Indicated Resolved Time COVID - 19 01/08/2021 01/08/2021 01/28/2021 12:1 6 AM FIELD CARE MANAGER COVID - 19 03/12/2021 03/12/2021 04/01/2021 12:1 6 AM FIELD CARE MANAGER COVID - 19 12/15/2021 12/15/2021 12/15/2021 7:26 PM CDT COVID - 19 Confirmed 12/15/2021 12/15/2021 022 12:16 AM CDT COVID - 19 04/18/2024 04/18/2024 04/18/2024 10:4 7 PM FIELD CARE MANAGER Respiratory Rule-Out 05/06/2024 05/06/2024 025 9:20 AM FIELD CARE MANAGER COVID - 19 05/06/2024 05/06/2024 05/06/2024 9:19 AM FIELD CARE MANAGER Assessment Noted Time PHQ-9 Depression Total Score: 0 09/01/19 20 11:58 AM CDT documented as of this encounter Care Teams Mat Repairer Relationship Specialty Start Date End Date Jackeline Dimas, FAMILY AND DIVORCE LEGAL ASSISTANT, STOCK CHECKERER [address] [place] [address] PCP - General Advanced Practice Nurse 07/31/17 Emilia Tang MD [address] [place] [address] PCP - General Family Medicine 06/07/22 03/25/23 Rebkea Trinidad MD [address] [place] [address] PCP - General Family Medicine 03/26/23 03/29/24 Lorri Leo, FAMILY AND DIVORCE LEGAL ASSISTANT, STOCK CHECKERER [address] [place] [address] PCP - General Certified Nurse Practitioner 03/30/24 04/20/24 Rebeka Trinidad MD [address] [place] [address] PCP - General Family Medicine 04/21/24 04/21/24 Lorri Leo FAMILY AND DIVORCE LEGAL ASSISTANT, STOCK CHECKERER [address] [place] [address] PCP - General Certified Nurse Practitioner 04/22/24 05/30/24 Tani Biggs, PAC [address] [place] [address] PCP - General Physician Research Scholar 05/31/24 Fiona Martinez, MAR[place] Production Quality Manager 03/01/21 08/23/21 Phil Jacobo MD [address] [place] [address] Consulting Physician Neurology 03/07/21 Rajiv Mccormack, KELI [address] [place] [address] Nurse Practitioner Gastroenterology 03/07/21 Renita Quezada, RN [place] Production Quality Manager 05/09/21 08/23/21 Alize Acosta, FAMILY AND DIVORCE LEGAL ASSISTANT, STOCK CHECKERER [address] [place] [address] Virtual Advanced Care (VAC) DISBURSING AGENT Advanced Practice Nurse 08/30/21 Dayo Chaney MD [address] [place] [address] Automotive Machinist Cardiovascular Disease - Cardiology 09/20/21 02/12/24 Juanita Mercado RN [place] Registered Nurse Cardiology 12/24/21 02/12/24 David Salmon MD #[address] [phone] Consulting Physician Endocrinology 01/15/22 Maurilio Farley MD #[address] [address] Consulting Physician Colon and Rectal Surgery 09/20/22 PhysicianCandida MD [address] [place] [address] Family Medicine 01/25/22 03/18/23 Dom Quiñonez MD #[address] [place] [address] Consulting Physician Pulmonary Disease 11/19/21 Rachelle Nava APRN, FISH SALTER #[address] [facility] [place] [place] [address] Nurse Practitioner Advanced Practice Nurse 07/19/22 Irais Naylor, FAMILY AND DIVORCE LEGAL ASSISTANT, STOCK CHECKERER [address] [address] [facility] [address] [place] [address] Nurse Practitioner Cardiology 06/27/23 07/29/24 Sharri Gaspar MD [address] [place] [place] [place] [address] Consulting Physician Cardiology 04/26/24 Amber Aldrich, FAMILY AND DIVORCE LEGAL ASSISTANT, STOCK CHECKERER [address] [place] [address] Nurse Practitioner Cardiology 07/30/24 documented as of this encounter
--- OUTSIDE RECORDS SUMMARY | 2025-02-04 11:13 | XMS_ITS | Encounter Summary ---
Author Organization [facility] Address [address] [place] [address] Phone Care Team Providers Care Linux Admin Name Role Phone Phil Jacobo MD Unavailable [phone] Rajiv Mccormack CUSTOM DESIGNER Unavailable Unavailable Alize Acosta APRN, ABSORPTION PLANT OPERATOR HELPER Unavailable [phone] Dayo Chaney MD Unavailable Juanita Hauser RN Unavailable UnavailDavid Alexandre MD Unavailable Maurilio Farley MD Unavailable Rebeka Trinidad MD Primary Care Provider + [phone] Dom Quiñonez MD Unavailable Rachelle Nava FITTER MACHINIST, ASSISTANT PROFESSOR Unavailable + [phone] Irais Naylor FITTER MACHINIST, ABSORPTION PLANT OPERATOR HELPER Unavailable + [phone] Lorri Leo FITTER MACHINIST, ABSORPTION PLANT OPERATOR HELPER Primary Care Provider + [phone] Rebeka Trinidad MD Primary Care Provider + [phone] Lorri Leo FITTER MACHINIST, ABSORPTION PLANT OPERATOR HELPER Primary Care Provider + [phone] Sharri Gaspar MD Unavailable Tani Biggs PAC Primary Care Provider + [phone] Amber Aldrich APRN, ABSORPTION PLANT OPERATOR HELPER Unavailable Reason for Visit * Reason Comments Medication Refill Encounter Details Date Type Department Care Team (Late st Contact Info) Description 06/23/2023 Refill [facility] [address] [place] [address] Belkis Mcnair APRN, ABSORPTION PLANT OPERATOR HELPER [address] [place] [address] Medication Refill Social History Tobacco Use Types Packs/Day Years Used Date Smoking Tobacco: Former Cigarettes 1 37.1 1 985 - 04/12/2021 Smokeless Tobacco: Never Alcohol Use Standard Drinks/Week Comments Not Currently 0 (1 standard drink = 0.6 oz pur e alcohol) last drank 2020 [facility] Utilities Answer Date Recorded In the past 12 months has [employer], gas, oil, or water [employer] threatened to shut off services in your home? No 03/24/2023 Social Connection and Isolation Panel Answer Date Recorded In a typical week, how many times do you talk on the phone with family, friends, or neighbors? Once a week 03/24/2023 How often do you get togethe r with friends or relatives? Never 03/24/2023 How often do you attend [facility] or sikhism services? 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 [...] Dept 06/16/23 Appointment [facility] 06/04/23 Appointment [facility] 06/04/23 Office Visit Rebeka Trinidad MD [facility] 05/29/23 Appointment [facility] 05/19/23 Appointment [facility] 05/09/23 Office Visit Rebeka Trinidad MD [facility] 05/05/23 Appointment [facility] N[facility] 04/28/23 Appointment [facility] 04/21/23 Appointment [facility] N[facility]SE [facility] 04/14/23 Appointment [facility] Showing recent visits within past 365 days and meeting all other requirements Today's Visits Date Type Provider Dept 06/23/23 Appointment [facility] Showing today's visits [...] Advanced Care 08/25/23 Appointment Alize Acosta APRN, ABSORPTION PLANT OPERATOR HELPER [facility] 09/01/23 Appointment ONCALL [...] st Contact Info) Description 02/21/2025 1:00 PM TAMPING MACHINE OPERATOR Telemedicine [facility] [address] [place] [address] 02/21/2025 3:45 PM TAMPING MACHINE OPERATOR Office Visit [facility] Medical [facility] - Endocrinology - [employer] [address] [place] [address] David Salmon MD #[address] [phone] 02/24/2025 3:30 PM TAMPING MACHINE OPERATOR Telemedicine [facility] [address] [place] [address] Alize Acosta APRN, ABSORPTION PLANT OPERATOR HELPER [address] [place] [address] 03/04/2025 3:10 PM TAMPING MACHINE OPERATOR [facility] - Primary Care - [place] [facility] [place] [address] 03/07/2025 2:15 PM TAMPING MACHINE OPERATOR Office Visit [facility] - Primary Care - [place] [address] [place] [address] Tani Biggs, [facility] [address] [place] [address] 03/17/2025 1:30 PM TAMPING MACHINE OPERATOR [facility] [address] [place] [address] Melony Asif Stacey, [facility] [address] [place] [address] Discharge Disposition: Discharged to home or Selfcare 03/25/2025 1:20 PM TAMPING MACHINE OPERATOR Office Visit [facility] Oncology Services [address] [place] [address] Melony Asif Stacey, [facility] [address] [place] [address] Discharge Disposition: Discharged to home or Selfcare 04/25/2025 2:00 PM TAMPING MACHINE OPERATOR Office Visit [facility] - Cardiology - [employer] [address] [place] [address] Laisha Griffin, DO [address] [address] 07/18/2025 1:00 PM CDT Office Visit [facility] - Pulmonology & Sleep Medicine [facility] [address] [place] [address] Dom Quiñonez MD [address] [place] [address] documented as of this encounter Goals Goal Patient Goal Type Associated Problems Recent Progress Patient-Stated? Author ACTIVITY Activity No change(08/08 2:42 PM CDT) Yes Maritza Vanegas, RN Note: Bonny will walk five days a week. Goal Reviewed with: Bonny Readiness to change: Department associated with goal: [facility] ADVANCED CARE Steps to achieve goal: [...] diet Depression Depression Improving(0 03/15/2022 2:27 PM TAMPING MACHINE OPERATOR) No Breanne Saldana, TESTING AND REGULATING TECHNICIAN Note: Goal/Objective: Decrease symptoms of depression [...] 19 04/18/2024 04/18/2024 04/18/2024 10:4 7 PM TAMPING MACHINE OPERATOR Respiratory Rule-Out 05/06/2024 05/06/2024 025 9:20 AM TAMPING MACHINE OPERATOR COVID - 05/06/2024 05/06/2024 05/06/2024 9:19 AM TAMPING MACHINE OPERATOR Assessment Noted Time PHQ-9 Depression Total Score: 18 023 9:24 AM CDT documented as of this encounter Care Teams Linux Admin Relationship Specialty Start Date End Date Rebeka Trinidad MD [address] [place] [address] PCP - General Family Medicine 03/26/23 03/29/24 Lorri Leo APRN, ABSORPTION PLANT OPERATOR HELPER [address] [address] PCP - General Certified Nurse Practitioner 03/30/24 04/20/24 Rebeka Trinidad MD [address] [address] PCP - General Family Medicine 04/21/24 04/21/24 Lorri Leo APRN, ABSORPTION PLANT OPERATOR HELPER [address] [address] PCP - General Certified Nurse Practitioner 04/22/24 05/30/24 Tani Biggs PAC [address] [place] [address] PCP - General Physician Film Critic 05/31/24 Phil Jacobo MD #[address] [place] [address] Consulting Physician Neurology 03/07/21 Rajiv Mccormack, KELI [address] [place] [address] Nurse Practitioner Gastroenterology 03/07/21 Alize Acosta, FITTER MACHINIST, ABSORPTION PLANT OPERATOR HELPER [address] [place] [address] Virtual Advanced Care (VAC) EVP OPERATIONS Advanced Practice Nurse 08/30/21 Dayo Chaney MD [facility] [place] [address] Dairy Farm Manager Cardiovascular Disease - Cardiology 09/20/21 02/12/24 Juanita Mercado RN [place] Registered Nurse Cardiology 12/24/21 02/12/24 David Salmon MD #[address] [phone] Consulting Physician Endocrinology 01/15/22 Maurilio Farley MD #[address] [address] Consulting Physician Colon and Rectal Surgery 09/20/22 Dom Quiñonez MD #2 [facility] [place] [address] Consulting Physician Pulmonary Disease 11/19/21 Rachelle Nava, FITTER MACHINIST, ASSISTANT PROFESSOR #[address] [facility] [place] [address] Nurse Practitioner Advanced Practice Nurse 07/19/22 Irais Naylor, FITTER MACHINIST, ABSORPTION PLANT OPERATOR HELPER #2 [facility] [address] [place] [address] Nurse Practitioner Cardiology 06/27/23 07/29/24 Sharri Gaspar MD 2 [facility] [place] [facility] [address] [place] [address] Consulting Physician Cardiology 04/26/24 Amber Aldrich, FITTER MACHINIST, ABSORPTION PLANT OPERATOR HELPER [address] [place] [address] Nurse Practitioner Cardiology 07/30/24 documented as of this encounter
--- OUTSIDE RECORDS SUMMARY | 2025-02-04 11:13 | XMS_ITS | Encounter Summary ---
Author Organization [facility] Address [address] [place] [address] Phone Care Team Providers Care Seasoning Mixer Name Role Phone Phil Jacobo MD Unavailable [phone] Rajiv Mccormack ADMINISTRATION PHYSICIAN Unavailable Unavailable Alize Acosta LAUNDRY SUPERVISOR, PLAYER PIANO TECHNICIAN Unavailable David Salmon MD Unavailable Maurilio Farley MD Unavailable Dom Quiñonez MD Unavailable Rachelle Nava APRN, BUTADIENE CONVERTER OPERATOR Unavailable + [phone] Sharri Gaspar MD Unavailable Tani Biggs PAC Primary Care Provider Amber Aldrich LAUNDRY SUPERVISOR, PLAYER PIANO TECHNICIAN Unavailable Reason for Visit * Reason Onset Date Comments Referral 01/15/2025 Encounter Details Date Type Department Care Team (Late st Contact Info) Description 01/15/2025 Telephone [facility] Services [address] [place] [address] Tani Biggs, PAC [facility] [place] [address] Referral Social History Tobacco Use Types Packs/Day Years Used Date Smoking Tobacco: Some Days Cigarettes 1 37.1 Started: 1984; Last attempted to quit: 04/12/2021 Passive Smoke Exposure: Never Smokeless Tobacco: Never Alcohol Use Standard Drinks/Week Comments Not Currently 0 (1 standard drink = 0.6 oz pur e alcohol) Last drink in 2020 [facility] Utilities Answer Date Recorded In the past 12 months has e [employer], gas, oil, or water [employer] threatened to shut off services in your home? No 03/22/2024 Social Connection and Isolation Panel Answer Date Recorded In a typical week, how many times do you talk on the phone with family, friends, or neighbors? Once a week 03/22/19 How often do you get togethe r with friends or relatives? Never 03/22/2024 How often do you attend [facility] or anabaptism services? 1 to 4 times per year [...] Score - Questions 1-9 24 09/0 07/2024 [facility] - Occupational [...] time in the past 12 m [facility], were you homeless or living in a fci (including now)? 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 BACKGROUND: Referral unable to be processed. ASSESSMENT: Request for provider review due to the following reason(s): Lack of necessary clinical information. RECOMMENDATION: Based on the above information the provider has the following option(s): Please sign office visit dated 01/14/2025 to process referral. Ame Leal [facility] - Referrals opt 7 ERECTOR documented in this encounter Plan of Treatment Upcoming Encounters Date Type Department Care Team (Late st Contact Info) Description 02/21/2025 1:00 PM SHIP ERECTOR Telemedicine [facility] [address] [place] [address] 02/21/2025 3:45 PM SHIP ERECTOR Office Visit [facility] - Endocrinology - [place] [address] [place] [address] David Salmon MD #[address] [address] 02/24/2025 3:30 PM SHIP ERECTOR Telemedicine [facility] [address] [place] [address] Alize Acosta, RUSSELL, PLAYER PIANO TECHNICIAN [address] [place] [address] 03/04/2025 3:10 PM SHIP ERECTOR [facility] - [place] [address] [place] [address] 03/07/2025 2:15 PM SHIP ERECTOR Office Visit [facility] - Primary Care - [place] [address] [place] [address] Tani Biggs, ESTRELLITA [address] [place] [address] 03/17/2025 1:30 PM SHIP ERECTOR [facility] [address] [place] [address] Melony Asif, PAC [address] [place] [address] Discharge Disposition: Discharged to home or Selfcare 03/25/2025 1:20 PM SHIP ERECTOR [facility] [address] [place] [address] Melony Asif, PAC [address] [place] [address] Discharge Disposition: Discharged to home or Selfcare 04/25/2025 2:00 PM SHIP ERECTOR [facility] [place] [address] [place] [address] Laisha Griffin, DO [address] [address] 07/18/2025 1:00 PM CDT Office Visit [facility] - Pulmonology & Sleep Medicine - [place] [address] [place] [address] Dom Quiñonez MD [address] [place] [address] documented as of this encounter Goals Goal Patient Goal Type Associated Problems Recent Progress Patient-Stated? Author ACTIVITY Activity No change(08/08 2:42 PM CDT) Yes Maritza Vanegas, RN Note: Bonny will walk five days a week. Goal Reviewed with: Bonny Readiness to change: Department associated with goal: [facility] ADVANCED CARE Steps to achieve goal: Walking 5 days a week I want to be able to be around people and feel less depressed. Behavioral Health Worsening(0 09/22/2023 3:12 PM CDT) Yes Hilda Tinajero, [facility] Note: Goal/Objective: Decrease symptoms of depression and anxiety. Anticipated Time Frame for Goal Completion: 3 months Goal Reviewed with: patient Readiness to change: Thinking about making a change Department associated with goal: [facility] BEHAVIORAL HEALTH SERVICES [...] diet Depression Depression Improving(0 03/15/2022 2:27 PM SHIP ERECTOR) No Breanne Saldana LCSW Note: Goal/Objective: Decrease [...] to change Department associated with goal: [facility] BEHAVIORAL HEALTH SERVICES [...] Time PHQ-9 Depression Total Score: 24 025 1:00 PM CDT documented as of this encounter Care Teams Seasoning Mixer Relationship Specialty Start Date End Date Tani Biggs PAC [address] [place] [address] PCP - General Physician Sports Specialist 05/31/24 Phil Jacobo MD [address] [place] [address] Consulting Physician Neurology 03/07/21 Rajiv Mccormack, KELI [address] [place] [address] Nurse Practitioner Gastroenterology 03/07/21 Alize Acosta, RUSSELL, PLAYER PIANO TECHNICIAN [facility] [place] [address] Virtual Advanced Care (VAC) STEAM PRESSER Advanced Practice Nurse 08/30/21 David Salmon MD #[address] [address] Consulting Physician Endocrinology 01/15/22 Maurilio Farley MD #[address] [address] Consulting Physician Colon and Rectal Surgery 09/20/22 Dom Quiñonez MD #[address] [place] [address] Consulting Physician Pulmonary Disease 11/19/21 Rachelle Nava, LAUNDRY SUPERVISOR, BUTADIENE CONVERTER OPERATOR [address] [place] [address] Nurse Practitioner Advanced Practice Nurse 07/19/22 Sharri Gaspar MD [address] [phone] Consulting Physician Cardiology 04/26/24 Amber Aldrich APRN, PLAYER PIANO TECHNICIAN [address] [place] [address] Nurse Practitioner Cardiology 07/30/24 documented as of this encounter
--- OUTSIDE RECORDS SUMMARY | 2025-02-04 11:13 | XMS_ITS | Encounter Summary ---
Author Organization [facility] Address [address] [place] [address] Phone Care Team Providers Care Spring Repairer Helper Hand Name Role Phone Jackeline Dimas WAITER/WAITRESS HEAD, ACCOUNTS PAYABLES CLERK Primary Care Provider Phil Jacobo MD Unavailable [phone] Rajiv Mccormack NP Unavailable Unavailable Alize Acosta WAITER/WAITRESS HEAD, ACCOUNTS PAYABLES CLERK Unavailable Dayo Chaney MD Unavailable Juanita Hauser RN Unavailable UnavailDavid Alexandre MD Unavailable Emilia Tang MD Primary Care Provider [phone] Maurilio Farley MD Unavailable Physician, Candida Davis MD Unavailable Rebeka Trinidad MD Primary Care Provider + [phone] Dom Quiñonez MD Unavailable Rachelle Nava WAITER/WAITRESS HEAD, TOILET AND LAUNDRY SOAP SUPERVISOR Unavailable + [phone] Irais Naylor WAITER/WAITRESS HEAD, ACCOUNTS PAYABLES CLERK Unavailable + [phone] Lorri Leo WAITER/WAITRESS HEAD, ACCOUNTS PAYABLES CLERK Primary Care Provider + [phone] Rebeka Trinidad MD Primary Care Provider + [phone] Lorri Leo WAITER/WAITRESS HEAD, [facility] Primary Care Provider + [phone] Sharri Gaspar MD Unavailable Tani Biggs [facility] Primary Care Provider [phone] Amber Aldrich APRN, [facility] Unavailable Reason for Visit * Reason Comments Medication Refill Encounter Details Date Type Department Care Team (Late st Contact Info) Description 03/31/2022 Refill [facility] - Endocr[facility]ology - [place] [address] [place] [address] David Salmon MD #[address] [address] Medication Refill Social History Tobacco [...] 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 No / Unsure 04/01/2022 1:35 PM ROUNDHOUSE SUPERVISOR documented as of this encounter Miscellaneous Notes * Telephone Encounter - Yesi Leggett RN - 04/01/2022 9:43 AM ROUNDHOUSE SUPERVISOR Requested Prescriptions Pending Prescriptions Disp Refills ??? Glucose Blood (OneTouch Verio) Strip [Pharmacy Med Name: ONE TOUCH VERIO TEST ST(NEW)100S] 200 Strip Sig: TEST BLOOD SUGAR TWICE DAILY Next appt: 04/30/2022 DHOUSE SUPERVISOR documented in this encounter Plan of Treatment Upcoming Encounters Date Type Department Care Team (Late st Contact Info) Description 02/21/2025 1:00 PM ROUNDHOUSE SUPERVISOR Telemedicine [facility] [address] [place] [address] 02/21/2025 3:45 PM ROUNDHOUSE SUPERVISOR Office Visit [facility] #[address] [place] [address] David Salmon MD #[address] [phone] 02/24/2025 3:30 PM ROUNDHOUSE SUPERVISOR [facility]medicine [facility] [address] [place] [address] Alize Acosta, RUSSELL, ACCOUNTS PAYABLES CLERK [address] [place] [address] 03/04/2025 3:10 PM ROUNDHOUSE SUPERVISOR [facility] - [place] [address] [place] [address] 03/07/2025 2:15 PM ROUNDHOUSE SUPERVISOR Office Visit [facility] Primary Care - [place] [address] [place] [address] Tani Biggs PAC [address] [place] [address] 03/17/2025 1:30 PM ROUNDHOUSE SUPERVISOR [facility] [address] [place] [address] Melony Asif August, PAC [address] [place] [address] Discharge Disposition: Discharged to home or Selfcare 03/25/2025 1:20 PM ROUNDHOUSE SUPERVISOR Office Visit [facility] Oncology Services [address] [place] [address] Melony Asif August, PAC [address] [place] [address] Discharge Disposition: Discharged to home or Selfcare 04/25/2025 2:00 PM ROUNDHOUSE SUPERVISOR Office Visit [facility] Medical [facility] - Cardiology - [place] [address] [place] [address] Laisha Griffin, DO [address] [address] 07/18/2025 1:00 PM CDT Office Visit [facility] - Pulmonology & Sleep Medicine [facility] #[address] [place] [address] Dom Quiñonez MD [address] [place] [address] documented as of this encounter Goals Goal [...] as recommended. Depression Depression Improving( 2:27 PM ROUNDHOUSE SUPERVISOR) No Breanne Saldana LCSW Note: Goal/Objective: [...] 19 04/18/2024 04/18/2024 04/18/2024 10:4 7 PM ROUNDHOUSE SUPERVISOR Respiratory Rule-Out 05/06/2024 05/06/2024 025 9:20 AM ROUNDHOUSE SUPERVISOR COVID - 19 05/06/2024 05/06/2024 05/06/2024 9:19 AM ROUNDHOUSE SUPERVISOR Assessment Noted Time PHQ-9 Depression Total Score: 24 022 3:31 PM ROUNDHOUSE SUPERVISOR documented as of this encounter Care Teams Spring Repairer Helper Hand Relationship Specialty Start Date End Date Jackeline Dimas, WAITER/WAITRESS HEAD, ACCOUNTS PAYABLES CLERK [address] [place] [address] PCP - General Advanced Practice Nurse 07/31/17 Emilia Tang MD [address] [place] [address] PCP - General Family Medicine 06/07/22 03/25/23 Rebeka Trinidad MD [address] [place] [address] PCP - General Family Medicine 03/26/23 03/29/24 Lorri Leo APRN, ACCOUNTS PAYABLES CLERK [address] [place] [address] PCP - General Certified Nurse Practitioner 03/30/24 04/20/24 Rebeka Trinidad MD [address] [place] [address] PCP - General Family Medicine 04/21/24 04/21/24 Lorri Leo WAITER/WAITRESS HEAD, ACCOUNTS PAYABLES CLERK [address] [place] [address] PCP - General Certified Nurse Practitioner 04/22/24 05/30/24 Tani Biggs PAC [address] [place] [address] PCP - General Physician Marriage Counselor 05/31/24 Phil Jacobo MD #[address] [place] [address] Consulting Physician Neurology 03/07/21 Rajiv Mccormack, KELI [address] [place] [address] Nurse Practitioner Gastroenterology 03/07/21 Alize Acosta, WAITER/WAITRESS HEAD, ACCOUNTS PAYABLES CLERK [address] [place], [place] [address] Virtual Advanced Care (VAC) FILM HISTORIAN Advanced Practice Nurse 08/30/21 Dayo Chaney MD [address] [place] [address] Transportation Solutions Manager Cardiovascular Disease - Cardiology 09/20/21 02/12/24 Juanita Meracdo RN [place] Registered Nurse Cardiology 12/24/21 02/12/24 David Salmon MD #[address] [address] Consulting Physician Endocrinology 01/15/22 Maurilio Farley MD #[address] [address] Consulting Physician Colon and Rectal Surgery 09/20/22 Physician, Candida Davis MD [address] [place] [address] Family Medicine 01/25/22 03/18/23 Dom Quiñonez MD #[address] [place] [address] Consulting Physician Pulmonary Disease 11/19/21 Rachelle Nava APRN, TOILET AND LAUNDRY SOAP SUPERVISOR #[address] [place] [address] Nurse Practitioner Advanced Practice Nurse 07/19/22 Irais Naylor APRN, ACCOUNTS PAYABLES CLERK #[address] [email or web address] [address] [place] [address] Nurse Practitioner Cardiology 06/27/23 07/29/24 Sharri Gaspar MD [address] [place] [address] Consulting Physician Cardiology 04/26/24 Amber Aldrich APRN, ACCOUNTS PAYABLES CLERK [address] [place] [address] Nurse Practitioner Cardiology 07/30/24 documented as of this encounter
--- OUTSIDE RECORDS SUMMARY | 2025-02-04 11:13 | XMS_ITS | Encounter Summary ---
Author Organization [facility] Address [address] [place] [address] Phone Care Team Providers Care E Learning Coordinator Name Role Phone Phil Jacobo MD Unavailable [phone] Rajiv Mccormack SWITCH ADJUSTER Unavailable Unavailable Alize Acosta APRN, AIRPLANE TUBE BUILDER Unavailable David Salmon MD Unavailable Maurilio Farley MD Unavailable Dom Quiñonez MD Unavailable Rachelle Nava APRN, CARTON MAKING MACHINE OPERATOR Unavailable + [phone] Sharri Gaspar MD Unavailable Tani Biggs PAC Primary Care Provider [phone] Amber Aldrich SHIRRING TENDER, AIRPLANE TUBE BUILDER Unavailable Reason for Visit * Reason Onset Date Comments Hypertension 01/31/2025 Encounter Details Date Type Department Care Team (Late st Contact Info) Description 01/31/2025 Telephone [facility] [address] [place] [address] Ayla Conte, RN [place] Hypertension Social History Tobacco Use Types Packs/Day Years Used Date Smoking Tobacco: Some Days Cigarettes 1 37.1 Started: 1984; Last attempted to quit: 04/12/2021 Passive Smoke Exposure: Never Smokeless Tobacco: Never Alcohol Use Standard Drinks/Week Comments Not Currently 0 (1 standard drink = 0.6 oz pur e alcohol) Last drink in 2020 [facility] Utilities Answer Date Recorded In the [...] often do you attend chur ch or anabaptism services? 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 Patient is enrolled in the [facility] Advanced Care(OCAC) Program. Unable to reach patient. Left message as follows: Koki this is Ayla, I am a registered nurse with [facility] Advanced Care and I am calling concerning some responses submitted in our digital careplatform. Please call us back at [phone] so we can discuss these concerns. Situation: CURRENT HEALTH yellow alert for HTN Background: This problem is ongoing. Assessment: See assessment below. BP- 147/74 P-88 A3aql-46% Recommendation and Plan: Navigate to Review Flowsheets and open OCAC Patient Reported Current Health Vitals to view patient vitals. NESS CHANGE MANAGER documented in this encounter Plan of Treatment Upcoming Encounters Date Type Department Care Team (Late st Contact Info) Description 02/21/2025 1:00 PM BUSINESS CHANGE MANAGER Telemedicine [facility] [address] [place] [address] 02/21/2025 3:45 PM BUSINESS CHANGE MANAGER Office Visit [facility] Medical [facility] - Endocrinology - [place] [address] [place] [address] David Salmon MD #[address] [address] 02/24/2025 3:30 PM BUSINESS CHANGE MANAGER Telemedicine [facility] [address] [place] [address] Alize Acosta, SHIRRING TENDER, AIRPLANE TUBE BUILDER [address] [place] [address] 03/04/2025 3:10 PM BUSINESS CHANGE MANAGER Lab [facility] [place] [facility] Primary Care - [place] [address] [place] [address] 03/07/2025 2:15 PM BUSINESS CHANGE MANAGER Office Visit [facility] [place] [facility] Primary Care - [place] [address] [place] [address] Tani Biggs, [facility] [address] [place] [address] 03/17/2025 1:30 PM BUSINESS CHANGE MANAGER Lab [facility] Oncology Services [address] [place] [address] Melony Asif, PAC [address] [place] [address] Discharge Disposition: Discharged to home or Selfcare 03/25/2025 1:20 PM BUSINESS CHANGE MANAGER Office Visit [facility] Oncology Services [address] [place] [address] Meolny Asif, PAC [address] [place] [address] Discharge Disposition: Discharged to home or Selfcare 04/25/2025 2:00 PM BUSINESS CHANGE MANAGER Office Visit [facility] - Cardiology - [place] [address] [place] [address] Laisha Griffin, DO [address] [address] 07/18/2025 1:00 PM CDT Office Visit [facility] - Pulmonology & Sleep Medicine - [place] [address] [place] [address] Dom Quiñonez MD [address] [place] [address] documented as of this encounter Goals Goal Patient Goal Type Associated Problems Recent Progress Patient-Stated? Author ACTIVITY Activity No change(08/08 2:42 PM CDT) Yes Maritza Vanegas RN Note: Bonny will walk five days a week. Goal Reviewed with: Bonny Readiness to change: Department associated with goal: [facility] Steps to achieve [...] diet Depression Depression Improving(0 03/15/2022 2:27 PM BUSINESS CHANGE MANAGER) No Breanne Saldana, HOUSEHOLD CHORES Note: Goal/Objective: Decrease symptoms of depression associated [...] documented as of this encounter Care Teams E Learning Coordinator Relationship Specialty Start Date End Date Tani Biggs PAC [address] [place] [address] PCP - General Physician Commercial Or Institutional Cleaner 05/31/24 Phil Jacobo MD [address] [place] [address] Consulting Physician Neurology 03/07/21 Rajiv Mccormack, SWITCH ADJUSTER [address] [place] [address] Nurse Practitioner Gastroenterology 03/07/21 Alize Acosta, RUSSELL, AIRPLANE TUBE BUILDER [facility] [place] [address] Virtual Advanced Care (VAC) HEALTH RESEARCHER Advanced Practice Nurse 08/30/21 David Salmon MD #[address] [address] Consulting Physician Endocrinology 01/15/22 Maurilio Farley MD #[address] [address] Consulting Physician Colon and Rectal Surgery 09/20/22 Dom Quiñonez MD #[address] [place] [address] Consulting Physician Pulmonary Disease 11/19/21 Rachelle Nava APRN, CARTON MAKING MACHINE OPERATOR [address] [place] [address] Nurse Practitioner Advanced Practice Nurse 07/19/22 Sharri Gaspar MD [address] [address] Consulting Physician Cardiology 04/26/24 Amber Aldrich APRN, AIRPLANE TUBE BUILDER [address] [place] [address] Nurse Practitioner Cardiology 07/30/24 documented as of this encounter
--- OUTSIDE RECORDS SUMMARY | 2025-02-04 11:13 | XMS_ITS | Encounter Summary ---
Author Organization [facility] Address [address] [place] [address] Phone Care Team Providers Care Foot Gatherer Name Role Phone Jackeline Dimas NUCLEAR EQUIPMENT RESEARCH ENGINEER, VIDEO PRODUCTION SPECIALIST Primary Care Provider Phil Jacobo MD Unavailable [phone] Rajiv Mccormack NP Unavailable Unavailable Alize Acosta NUCLEAR EQUIPMENT RESEARCH ENGINEER, VIDEO PRODUCTION SPECIALIST Unavailable Dayo Chaney MD Unavailable Juanita Hauser RN Unavailable UnavailDavid Alexandre MD Unavailable Emilia Tang MD Primary Care Provider [phone] Maurilio Farley MD Unavailable Physician, Candida Davis MD Unavailable Rebeka Trinidad MD Primary Care Provider + [phone] Dom Quiñonez MD Unavailable Rachelle Nava NUCLEAR EQUIPMENT RESEARCH ENGINEER, PIGMENT FURNACE TENDER Unavailable + [phone] Irais Naylor NUCLEAR EQUIPMENT RESEARCH ENGINEER, VIDEO PRODUCTION SPECIALIST Unavailable + [phone] Lorri Leo NUCLEAR EQUIPMENT RESEARCH ENGINEER, VIDEO PRODUCTION SPECIALIST Primary Care Provider + [phone] Rebeka Trinidad MD Primary Care Provider + [phone] Lorri Leo NUCLEAR EQUIPMENT RESEARCH ENGINEER, [facility] Primary Care Provider + [phone] Sharri Gaspar MD Unavailable Tani iBggs [facility] Primary Care Provider + [phone] Amber Aldrich NUCLEAR EQUIPMENT RESEARCH ENGINEER, [facility] Unavailable Reason for Visit * Reason Comments Medication Refill Encounter Details Date Type Department Care Team (Late st Contact Info) Description 05/22/2022 Refill [facility] [address] [place] [address] Jackeline Dimas, NUCLEAR EQUIPMENT RESEARCH ENGINEER, [facility] [address] [place] [address] Medication Refill Social History Tobacco Use Types [...] 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 Unable to assess 05/01/2022 2:58 PM HYDRAULIC RUBBISH COMPACTOR MECHANIC documented as of this encounter Miscellaneous [...] Provider Dept 05/21/22 Appointment Alize Acosta APRN, ILDA [facility] 05/20/22 Appointment VIRTUAL [...] st Contact Info) Description 02/21/2025 1:00 PM HYDRAULIC RUBBISH COMPACTOR MECHANIC Telemedicine [facility] [address] [place] [address] 02/21/2025 3:45 PM HYDRAULIC RUBBISH COMPACTOR MECHANIC Office Visit [facility] - Endocrinology - [place] [address] [place] [address] David Salmon MD [address] [phone] 02/24/2025 3:30 PM HYDRAULIC RUBBISH COMPACTOR MECHANIC Telemedicine [facility] [address] [place] [address] Alize Acosta, NUCLEAR EQUIPMENT RESEARCH ENGINEER, VIDEO PRODUCTION SPECIALIST [address] [place] [address] 03/04/2025 3:10 PM HYDRAULIC RUBBISH COMPACTOR MECHANIC Lab [facility] Primary Care - [place] [address] [place] [address] 03/07/2025 2:15 PM HYDRAULIC RUBBISH COMPACTOR MECHANIC Office Visit [facility] Primary Care - [place] [address] [place] [address] Tani Biggs, PAC [address] [place] [address] 03/17/2025 1:30 PM HYDRAULIC RUBBISH COMPACTOR MECHANIC Lab [facility] On[facility] [address] [place] [address] Melony Asif, PAC [address] [place] [address] Discharge Disposition: Discharged to home or Selfcare 03/25/2025 1:20 PM HYDRAULIC RUBBISH COMPACTOR MECHANIC Office [facility] [address] [place] [address] Melony Asif, PAC [address] [place] [address] Discharge Disposition: Discharged to home or Selfcare 04/25/2025 2:00 PM HYDRAULIC RUBBISH COMPACTOR MECHANIC Office Visit [facility] Medical [facility] - Cardiology - [place] [address] [place] [address] Laisha Griffin, DO [address] [phone] 07/18/2025 1:00 PM CDT Office Visit [facility] - Pulmonology & Sleep Medicine - [place] [address] [place] [address] Dom Quiñonez MD [address] [place] [address] documented as of this encounter [...] as recommended. Depression Depression Improving( 2:27 PM HYDRAULIC RUBBISH COMPACTOR MECHANIC) Breanne Barragan, ROAD PRODUCTION GENERAL MANAGER Note: Goal/Objective: Decrease symptoms of depression [...] 19 04/18/2024 04/18/2024 04/18/2024 10:4 7 PM HYDRAULIC RUBBISH COMPACTOR MECHANIC Respiratory Rule-Out 05/06/2024 05/06/2024 025 9:20 AM HYDRAULIC RUBBISH COMPACTOR MECHANIC COVID - 19 05/06/2024 05/06/2024 05/06/2024 9:19 AM HYDRAULIC RUBBISH COMPACTOR MECHANIC Assessment Noted Time PHQ-9 Depression Total Score: 24 022 3:31 PM HYDRAULIC RUBBISH COMPACTOR MECHANIC documented as of this encounter Care Teams Foot Gatherer Relationship Specialty Start Date End Date Jackeline Dimas, RUSSELL, VIDEO PRODUCTION SPECIALIST [address] [place] [address] PCP - General Advanced Practice Nurse 07/31/17 Emilia Tang MD [address] [place] [address] PCP - General Family Medicine 06/07/22 03/25/23 Rebeka Trinidad MD [address] [place] [address] PCP - General Family Medicine 03/26/23 03/29/24 Lorri Leo APRN, VIDEO PRODUCTION SPECIALIST [address] [place] [address] PCP - General Certified Nurse Practitioner 03/30/24 04/20/24 Rebeka Trinidad MD [address] [place] [address] PCP - General Family Medicine 04/21/24 04/21/24 Lorri Leo APRN, VIDEO PRODUCTION SPECIALIST [address] [place] [address] PCP - General Certified Nurse Practitioner 04/22/24 05/30/24 Tani Biggs, PAC [address] [place] [address] PCP - General Physician Historiographer 05/31/24 Phil Jacobo MD [address] [place] [address] Consulting Physician Neurology 03/07/21 Rajiv Mccormack, CONTINUING EDUCATION INSTRUCTOR [address] [place] [address] Nurse Practitioner Gastroenterology 03/07/21 Alize Acosta APRN, VIDEO PRODUCTION SPECIALIST [address] [place] [address] Virtual Advanced Care (VAC) FORMULATOR COMPOUNDER Advanced Practice Nurse 08/30/21 Dayo Chaney MD [address] [place] [address] Non Destructive Tester Cardiovascular Disease - Cardiology 09/20/21 02/12/24 Juanita Mercado, [place] Registered Nurse Cardiology 12/24/21 02/12/24 David Salmon MD [address] [address] Consulting Physician Endocrinology 01/15/22 Maurilio Farley MD [address] [facility] [address] Consulting Physician Colon and Rectal Surgery 09/20/22 PhysicianCandida MD [address] [place] [address] Family Medicine 01/25/22 03/18/23 Dom Quiñonez MD #[address] [place] [address] Consulting Physician Pulmonary Disease 11/19/21 Rachelle Nava, NUCLEAR EQUIPMENT RESEARCH ENGINEER, PIGMENT FURNACE TENDER #[address] [place] [address] Nurse Practitioner Advanced Practice Nurse 07/19/22 Irais Naylor, NUCLEAR EQUIPMENT RESEARCH ENGINEER, VIDEO PRODUCTION SPECIALIST #2 [facility] MAILENiko [facility] [address] [place] [address] Nurse Practitioner Cardiology 06/27/23 07/29/24 Sharri Gaspar MD 2 [facility] [address] [facility] [address] [place] [address] Consulting Physician Cardiology 2/17/25 Amber Aldrich APRN, VIDEO PRODUCTION SPECIALIST [address] [place] [address] Nurse Practitioner Cardiology 07/30/24 documented as of this encounter
--- OUTSIDE RECORDS SUMMARY | 2025-02-04 11:13 | XMS_ITS | Encounter Summary ---
Author Organization [facility] Address [address] [place] [address] Phone Care Team Providers Care Referral And Information Aide Name Role Phone Jackeline Dimas HARDWOOD FLOOR INSTALLATION HELPER, PHYSICIAN ASSISTANT PRIMARY CARE Primary Care Provider Phil Jacobo MD Unavailable [phone] Rajiv Mccormack NP Unavailable Unavailable Alize Acosta HARDWOOD FLOOR INSTALLATION HELPER, PHYSICIAN ASSISTANT PRIMARY CARE Unavailable Dayo Chaney MD Unavailable Juanita Hauser RN Unavailable UnavailDavid Alexandre MD Unavailable Emilia Tang MD Primary Care Provider [phone] Maurilio Farley MD Unavailable Physician, Candida Davis MD Unavailable Rebeka Trinidad MD Primary Care Provider + [phone] Dom Quiñonez MD Unavailable Rachelle Nava HARDWOOD FLOOR INSTALLATION HELPER, TAIL TRIMMER Unavailable + [phone] Irais Naylor HARDWOOD FLOOR INSTALLATION HELPER, PHYSICIAN ASSISTANT PRIMARY CARE Unavailable + [phone] Lorri Leo HARDWOOD FLOOR INSTALLATION HELPER, PHYSICIAN ASSISTANT PRIMARY CARE Primary Care Provider + [phone] Rebeka Trinidad MD Primary Care Provider + [phone] Lorri Leo HARDWOOD FLOOR INSTALLATION HELPER, [facility] Primary Care Provider + [phone] Sharri Gaspar MD Unavailable Tani Biggs [facility] Primary Care Provider [phone] Amber Aldrich APRN, 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 No / Unsure 02/06/2022 3:43 PM KEY CARRIER documented as of this encounter Miscellaneous Notes * Telephone Encounter - Yesi Leggett RN - 02/11/2022 8:37 AM KEY CARRIER Requested Prescriptions Pending Prescriptions Disp Refills ??? TRUEplus 5-Bevel Pen [place] 32G X 4 MM Misc [Pharmacy Med Name: TRUEPLUS 5- BEVEL PEN NEEDLE [id number]] 100 Each 1 Sig: USE DAILY DIRECTED Next appt: 04/30/2022 CARRIER documented in this encounter Plan of Treatment Upcoming Encounters Date Type Department Care Team (Late st Contact Info) Description 02/21/2025 1:00 PM KEY CARRIER Telemedicine [facility] [address] [place] [address] 02/21/2025 3:45 PM KEY CARRIER Office Visit [facility] Endocrinology [facility] [address] [place] [address] David Salmon MD #[address] [address] 02/24/2025 3:30 PM KEY CARRIER [facility]icine [facility] [address] [place] [address] Alize Acosta, RUSSELL, PHYSICIAN ASSISTANT PRIMARY CARE [address] [place] [address] 03/04/2025 3:10 PM KEY CARRIER [facility] [place] [address] [place] [address] 03/07/2025 2:15 PM KEY CARRIER Office Visit [facility] Primary [facility] - [place] [address] [place] [address] Tani Biggs PAC [address] [place] [address] 03/17/2025 1:30 PM KEY CARRIER [facility] [address] [place] [address] Melony Asif August, PAC [address] [place] [address] Discharge Disposition: Discharged to home or Selfcare 03/25/2025 1:20 PM KEY CARRIER [facility] [address] [place] [address] Melony Asif August, PAC [address] [place] [address] Discharge Disposition: Discharged to home or Selfcare 04/25/2025 2:00 PM KEY CARRIER Office Visit [facility] - Cardiology - [place] [address] [place] [address] Laisha Griffin, DO [address] [address] 07/18/2025 1:00 PM CDT Office Visit [facility] - Pulmonology & Sleep Medicine [facility] [address] [place] [address] Dom Quiñonez MD #[address] [place] [address] documented as of this encounter Goals Goal [...] as recommended. Depression Depression Improving( 2:27 PM KEY CARRIER) No Breanne Saldana, COMMERCIAL INTERN Note: Goal/Objective: Decrease symptoms of depression associated [...] 19 04/18/2024 04/18/2024 04/18/2024 10:4 7 PM KEY CARRIER Respiratory Rule-Out 05/06/2024 05/06/2024 025 9:20 AM KEY CARRIER COVID - 19 05/06/2024 05/06/2024 05/06/2024 9:19 AM KEY CARRIER Assessment Noted Time PHQ-9 Depression Total Score: 24 022 3:31 PM KEY CARRIER documented as of this encounter Care Teams Referral And Information Aide Relationship Specialty Start Date End Date Jackeline Dimas, HARDWOOD FLOOR INSTALLATION HELPER, PHYSICIAN ASSISTANT PRIMARY CARE [address] [place] [address] PCP - General Advanced Practice Nurse 07/31/17 Emilia Tang MD [address] [place] [address] PCP - General Family Medicine 06/07/22 03/25/23 Rebeka Trinidad MD [address] [place] [address] PCP - General Family Medicine 03/26/23 03/29/24 Lorri Leo APRN, PHYSICIAN ASSISTANT PRIMARY CARE [address] [place] [address] PCP - General Certified Nurse Practitioner 03/30/24 04/20/24 Rebeka Trinidad MD [address] [place] [address] PCP - General Family Medicine 04/21/24 04/21/24 Lorri Leo APRN, PHYSICIAN ASSISTANT PRIMARY CARE [address] [place] [address] PCP - General Certified Nurse Practitioner 04/22/24 05/30/24 Tani Biggs PAC [address] [place] [address] PCP - General Physician Brazer Resistance 05/31/24 Phil Jacobo MD #[address] [place] [address] Consulting Physician Neurology 03/07/21 Rajiv Mccormack, KELI [address] [place] [address] Nurse Practitioner Gastroenterology 03/07/21 Alize Acosta, HARDWOOD FLOOR INSTALLATION HELPER, PHYSICIAN ASSISTANT PRIMARY CARE [address] [place] [address] Virtual Advanced Care (VAC) INTERLOCKER MAINTAINER Advanced Practice Nurse 08/30/21 Dayo Chaney MD [address] [place] [address] Manager Call Cardiovascular Disease - Cardiology 09/20/21 02/12/24 Juanita Mercado RN [place] Registered Nurse Cardiology 12/24/21 02/12/24 David Salmon MD #[address] [address] Consulting Physician Endocrinology 01/15/22 Maurilio Farley MD #[address] [address] Consulting Physician Colon and Rectal Surgery 09/20/22 Physician, Candida Davis MD [address] [place] [address] Family Medicine 01/25/22 03/18/23 Dom Quiñonez MD #[address] [place] [address] Consulting Physician Pulmonary Disease 11/19/21 Rachelle Nava, HARDWOOD FLOOR INSTALLATION HELPER, TAIL TRIMMER #[address] [place] [address] Nurse Practitioner Advanced Practice Nurse 07/19/22 Irais Naylor APRN, PHYSICIAN ASSISTANT PRIMARY CARE #2 [facility] [address] [place] [address] Nurse Practitioner Cardiology 06/27/23 07/29/24 Sharri Gaspar MD 2 [facility] [address] [place] [place] [address] Consulting Physician Cardiology 04/26/24 Amber Aldrich APRN, PHYSICIAN ASSISTANT PRIMARY CARE [address] [place] [address] Nurse Practitioner Cardiology 07/30/24 documented as of this encounter
--- OUTSIDE RECORDS SUMMARY | 2025-02-04 11:13 | XMS_ITS | Encounter Summary ---
Author Organization [facility] Address [address] [place] [address] Phone Care Team Providers Care Dryerman/Woman Name Role Phone Jackeline Dimas SENIOR NET DEVELOPER ARCHITECT, LIPSTICK MOLDER Primary Care Provider Phil Jacobo MD Unavailable [phone] Rajiv Mccormack NP Unavailable Unavailable Alize Acosta SENIOR NET DEVELOPER ARCHITECT, LIPSTICK MOLDER Unavailable Dayo Chaney MD Unavailable Juanita Hauser RN Unavailable UnavailDavid Alexandre MD Unavailable Emilia Tang MD Primary Care Provider [phone] Maurilio Farley MD Unavailable Physician, Candida Davis MD Unavailable Rebeka Trinidad MD Primary Care Provider + [phone] Dom Quiñonez MD Unavailable Rachelle Nava SENIOR NET DEVELOPER ARCHITECT, SCOOPER Unavailable + [phone] Irais Naylor SENIOR NET DEVELOPER ARCHITECT, LIPSTICK MOLDER Unavailable + [phone] Lorri Leo SENIOR NET DEVELOPER ARCHITECT, LIPSTICK MOLDER Primary Care Provider + [phone] Rebeka Trinidad MD Primary Care Provider + [phone] Lorri Leo SENIOR NET DEVELOPER ARCHITECT, [facility] Primary Care Provider + [phone] Sharri Gaspar MD Unavailable Tani Biggs 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 Unable to assess 01/16/2022 3:15 PM WOOD STAINER documented as of this encounter Functional Status documented as of this encounter Mental Status * Question Answer Entry Date Author Initial Score 6 01/15/2022 3:31 PM WOOD STAINER Alize Tsang APRN, LIPSTICK MOLDER documented in this encounter Plan of Treatment Upcoming Encounters Date Type Department Care Team (Late st Contact Info) Description 02/21/2025 1:00 PM WOOD STAINER Telemedicine [facility] [address] [place] [address] 02/21/2025 3:45 PM WOOD STAINER Office Visit [facility] - Endocrinology - [place] [address] [place] [address] David Salmon MD #[address] [address] 02/24/2025 3:30 PM WOOD STAINER [facility]icine [facility] [address] [place] [address] Alize Acosta, RUSSELL, LIPSTICK MOLDER [address] [place] [address] 03/04/2025 3:10 PM WOOD STAINER Lab [facility] [place] [address] [place] [address] 03/07/2025 2:15 PM WOOD STAINER Office Visit [facility] - Primary Care - [place] [address] [place] [address] Tani Biggs, [facility] [address] [place] [address] 03/17/2025 1:30 PM WOOD STAINER [facility] [address] [place] [address] Melony Asif PAC [address] [place] [address] Discharge Disposition: Discharged to home or Selfcare 03/25/2025 1:20 PM WOOD STAINER Office Visit [facility] Oncology Services [address] [place] [address] Melony Asif Stacey, PAC [address] [place] [address] Discharge Disposition: Discharged to home or Selfcare 04/25/2025 2:00 PM WOOD STAINER Office Visit [facility] - Cardiology - [place] [address] [place] [address] Laisha Griffin, DO [address] [address] 07/18/2025 1:00 PM CDT Office Visit [facility] - Pulmonology & Sleep Medicine - [place] [address] [place] [address] Dom Quiñonez MD [address] [place] [address] documented as of this encounter Goals Goal [...] as recommended. Depression Depression Improving( 2:27 PM WOOD STAINER) No Breanne Saldana LCSW Note: Goal/Objective: Decrease [...] Intake On track(2023 2:42 PM CDT) No Maddi, Xiomy M, RN Note: Goal: I will reduce my [...] 19 04/18/2024 04/18/2024 04/18/2024 10:4 7 PM WOOD STAINER Respiratory Rule-Out 05/06/2024 05/06/2024 025 9:20 AM WOOD STAINER COVID - 19 05/06/2024 05/06/2024 05/06/2024 9:19 AM WOOD STAINER Assessment Noted Time PHQ-9 Depression Total Score: 0 09/01/19 20 11:58 AM CDT documented as of this encounter Care Teams Dryerman/Woman Relationship Specialty Start Date End Date Jackeline Dimas APRN, LIPSTICK MOLDER [address] [place] [address] PCP - General Advanced Practice Nurse 07/31/17 Emilia Tang MD [address] [place] [address] PCP - General Family Medicine 06/07/22 03/25/23 Rebeka Trinidad MD [address] [place] [address] PCP - General Family Medicine 03/26/23 03/29/24 Lorri Leo SENIOR NET DEVELOPER ARCHITECT, LIPSTICK MOLDER [address] [place] [address] PCP - General Certified Nurse Practitioner 03/30/24 04/20/24 Rebeka Trinidad MD [address] [place] [address] PCP - General Family Medicine 04/21/24 04/21/24 Lorri Leo SENIOR NET DEVELOPER ARCHITECT, LIPSTICK MOLDER [address] [place] [address] PCP - General Certified Nurse Practitioner 04/22/24 05/30/24 Tani Biggs, PAC [address] [place] [address] PCP - General Physician Log Handling Equipment Operator 05/31/24 Phil Jacobo MD #[address] [place] [address] Consulting Physician Neurology 03/07/21 Rajiv Mccormack, CHISEL WORKER [address] [place] [address] Nurse Practitioner Gastroenterology 03/07/21 Alize Acosta, SENIOR NET DEVELOPER ARCHITECT, LIPSTICK MOLDER [address] [place] [address] Virtual Advanced Care (VAC) DEPUTY K 9 Advanced Practice Nurse 08/30/21 Dayo Chaney MD [address] [place] [address] Wool Fleece Sorter Cardiovascular Disease - Cardiology 09/20/21 02/12/24 Juanita Mercado RN [place] Registered Nurse Cardiology 12/24/21 02/12/24 David Salmon MD #[address] [address] Consulting Physician Endocrinology 01/15/22 Maurilio Farley MD #[address] [address] Consulting Physician Colon and Rectal Surgery 09/20/22 Physician, Candida Davis MD [address] [place], [place] [phone] Family Medicine 01/25/22 03/18/23 Dom Quiñonez MD #[address] [place] [address] Consulting Physician Pulmonary Disease 11/19/21 Rachelle Nava, SENIOR NET DEVELOPER ARCHITECT, [place] [address] [place] [address] Nurse Practitioner Advanced Practice Nurse 07/19/22 Irais Naylor, SENIOR NET DEVELOPER ARCHITECT, LIPSTICK MOLDER #2 [facility], [address] [address] Nurse Practitioner Cardiology 06/27/23 07/29/24 Sharri Gaspar MD [address] [address] Consulting Physician Cardiology 04/26/24 Amber Aldrich APRN, LIPSTICK MOLDER #2 [facility] [place] [address] Nurse Practitioner Cardiology 07/30/24 documented as of this encounter
--- OUTSIDE RECORDS SUMMARY | 2025-02-04 11:13 | XMS_ITS | Encounter Summary ---
Author Organization [facility] Address [address] [place] [address] Phone Care Team Providers Care Certified Registered Nurse Anesthetist Name Role Phone Jackeline Dimas TAX COMPLIANCE AGENT, HEAD OF DIGITAL ADVERTISING & INTEGRATION Primary Care Provider Phil Jacobo MD Unavailable [phone] Rajiv Mccormack NP Unavailable Unavailable Alize Acosta TAX COMPLIANCE AGENT, HEAD OF DIGITAL ADVERTISING & INTEGRATION Unavailable Dayo Chaney MD Unavailable Juanita Hauser RN Unavailable UnavailDavid Alexandre MD Unavailable Emilia Tang MD Primary Care Provider [phone] Maurilio Farley MD Unavailable Physician, Candida Davis MD Unavailable Rebeka Trinidad MD Primary Care Provider + [phone] Dom Quiñonez MD Unavailable Rachelle Nava TAX COMPLIANCE AGENT, ICE SCRAPER Unavailable + [phone] Irais Naylor TAX COMPLIANCE AGENT, HEAD OF DIGITAL ADVERTISING & INTEGRATION Unavailable + [phone] Lorri Leo TAX COMPLIANCE AGENT, HEAD OF DIGITAL ADVERTISING & INTEGRATION Primary Care Provider + [phone] Rebeka Trinidad MD Primary Care Provider + [phone] Lorri Leo TAX COMPLIANCE AGENT, [facility] Primary Care Provider + [phone] Sharri Gaspar MD Unavailable Tani Biggs [facility] Primary Care Provider [phone] Amber Aldrich APRN, [facility] Unavailable Reason for Visit * Reason Comments Medication Refill Encounter Details Date Type Department Care Team (Late st Contact Info) Description 05/18/2022 Refill [facility] - [place] [address] [place] [address] David Salmon MD #[address] [address] Medication Refill Social History Tobacco [...] 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 Unable to assess 05/01/2022 2:58 PM ADVERTISING VICE PRESIDENT documented as of this encounter Miscellaneous Notes * Telephone Encounter - Yesi Leggett RN - 05/20/2022 8:26 AM CDT Requested Prescriptions Pending Prescriptions Disp Refills ??? Lancets (OneTouch Delica Plus [id number]) Misc [Pharmacy Med Name: ONE TOUCH DELICA PLUS 33G LANCETS] 200 Each Sig: USE TO TEST BLOOD GLUCOSE TWICE DAILY Next appt: 07/30/2022 documented in this encounter Plan of Treatment Upcoming Encounters Date Type Department Care Team (Late st Contact Info) Description 02/21/2025 1:00 PM ADVERTISING VICE PRESIDENT Telemedicine [facility] [address] [place] [address] 02/21/2025 3:45 PM ADVERTISING VICE PRESIDENT Office Visit [facility] Endocrinology [facility] #[address] [place] [address] David Salmon MD #[address] [address] 02/24/2025 3:30 PM ADVERTISING VICE PRESIDENT [facility]medicine [facility] [address] [place] [address] Alize Acosta, RUSSELL, HEAD OF DIGITAL ADVERTISING & INTEGRATION [address] [place] [address] 03/04/2025 3:10 PM ADVERTISING VICE PRESIDENT [facility] [place] [address] [place] [address] 03/07/2025 2:15 PM ADVERTISING VICE PRESIDENT Office Visit [facility] Primary Care - [place] [address] [place] [address] Tani Biggs PAC [address] [place] [address] 03/17/2025 1:30 PM ADVERTISING VICE PRESIDENT [facility] [address] [place] [address] Melony Asif August, PAC [address] [place] [address] Discharge Disposition: Discharged to home or Selfcare 03/25/2025 1:20 PM ADVERTISING VICE PRESIDENT [facility] [address] [place] [address] Melony Asif August, PAC [address] [place] [address] Discharge Disposition: Discharged to home or Selfcare 04/25/2025 2:00 PM ADVERTISING VICE PRESIDENT Office Visit [facility] - Cardiology - [place] [address] [place] [address] Laisha Griffin, DO [address] [address] 07/18/2025 1:00 PM CDT Office Visit [facility] - Pulmonology & Sleep Medicine [facility] #[address] [place] [address] Dom Quiñonez MD [address] [place] [address] documented as of this encounter Goals Goal [...] as recommended. Depression Depression Improving( 2:27 PM ADVERTISING VICE PRESIDENT) No Breanen Saldana LCSW Note: Goal/Objective: Decrease symptoms of [...] 19 04/18/2024 04/18/2024 04/18/2024 10:4 7 PM ADVERTISING VICE PRESIDENT Respiratory Rule-Out 05/06/2024 05/06/2024 025 9:20 AM ADVERTISING VICE PRESIDENT COVID - 19 05/06/2024 05/06/2024 05/06/2024 9:19 AM ADVERTISING VICE PRESIDENT Assessment Noted Time PHQ-9 Depression Total Score: 24 022 3:31 PM ADVERTISING VICE PRESIDENT documented as of this encounter Care Teams Certified Registered Nurse Anesthetist Relationship Specialty Start Date End Date Jackeline Dimas, TAX COMPLIANCE AGENT, HEAD OF DIGITAL ADVERTISING & INTEGRATION [address] [place] [address] PCP - General Advanced Practice Nurse 07/31/17 Emilia Tang MD [address] [place] [address] PCP - General Family Medicine 06/07/22 03/25/23 Rebeka Trinidad MD [address] [place] [address] PCP - General Family Medicine 03/26/23 03/29/24 Lorri Leo APRN, HEAD OF DIGITAL ADVERTISING & INTEGRATION [address] [place] [address] PCP - General Certified Nurse Practitioner 03/30/24 04/20/24 Rebeka Trinidad MD [address] [place] [address] PCP - General Family Medicine 04/21/24 04/21/24 Lorri Leo APRN, HEAD OF DIGITAL ADVERTISING & INTEGRATION [address] [place] [address] PCP - General Certified Nurse Practitioner 04/22/24 05/30/24 Tani Biggs PAC [address] [place] [address] PCP - General Physician Construction Superintendent 05/31/24 Phil Jacobo MD #[address] [place] [address] Consulting Physician Neurology 03/07/21 Rajiv Mccromack, KELI [address] [place] [address] Nurse Practitioner Gastroenterology 03/07/21 Alize Acosta, TAX COMPLIANCE AGENT, HEAD OF DIGITAL ADVERTISING & INTEGRATION [address] [place] [address] Virtual Advanced Care (VAC) BIOPHYSICS PROFESSOR Advanced Practice Nurse 08/30/21 Dayo Chaney MD [facility] [place] [address] Agency Sales Management Assistant Cardiovascular Disease - Cardiology 09/20/21 02/12/24 Juanita Mercado RN [place] Registered Nurse Cardiology 12/24/21 02/12/24 David Salmon MD #[address] [address] Consulting Physician Endocrinology 01/15/22 Maurilio Farley MD #[address] [address] Consulting Physician Colon and Rectal Surgery 09/20/22 Physician, Candida Davis MD [address] [place] [address] Family Medicine 01/25/22 03/18/23 Dom Quiñonez MD #[address] [place] [address] Consulting Physician Pulmonary Disease 11/19/21 Rachelle Nava APRN, ICE SCRAPER #[address] [place] [address] Nurse Practitioner Advanced Practice Nurse 07/19/22 Irais Naylor APRN, HEAD OF DIGITAL ADVERTISING & INTEGRATION #[address] [facility] [address] [place] [address] Nurse Practitioner Cardiology 06/27/23 07/29/24 Sharri Gaspar MD [address] [facility] [address], [place] [place] [address] Consulting Physician Cardiology 04/26/24 Amber Aldrich APRN, HEAD OF DIGITAL ADVERTISING & INTEGRATION [address] [place] [address] Nurse Practitioner Cardiology 07/30/24 documented as of this encounter
--- OUTSIDE RECORDS SUMMARY | 2025-02-04 11:13 | XMS_ITS | Encounter Summary ---
Author Organization [facility] Address [address] [place] [address] Phone Care Team Providers Care Cardiac Technologist Name Role Phone Phil Jacobo MD Unavailable [phone] Rajiv Mccormack THIRD MATE Unavailable Unavailable Alize Acosta APRN, LOW PRESSURE BOILER OPERATOR Unavailable [phone] Dayo Chaney MD Unavailable Juanita Hauser RN Unavailable UnavailDavid Alexandre MD Unavailable Maurilio Farley MD Unavailable Rebeka Trinidad MD Primary Care Provider + [phone] Dom Quiñonez MD Unavailable Rachelle Nava HEEL EDGE INKER MACHINE, B2B OUTSIDE SALES REPRESENTATIVE Unavailable + [phone] Irais Naylor HEEL EDGE INKER MACHINE, LOW PRESSURE BOILER OPERATOR Unavailable + [phone] Lorri Leo HEEL EDGE INKER MACHINE, LOW PRESSURE BOILER OPERATOR Primary Care Provider + [phone] Rebeka Trinidad MD Primary Care Provider + [phone] Lorri Leo HEEL EDGE INKER MACHINE, LOW PRESSURE BOILER OPERATOR Primary Care Provider + [phone] Sharri Gaspar MD Unavailable Tani Biggs [facility] Primary Care Provider [phone] Amber Aldrich APRN, LOW PRESSURE BOILER OPERATOR Unavailable Reason for Visit * Reason Comments Medication Refill Encounter Details Date Type Department Care Team (Late st Contact Info) Description 04/18/2023 Refill [facility] - Neurology [facility] #[address] [place] [address] Rachelle Nava, RUSSELL, B2B OUTSIDE SALES REPRESENTATIVE [address] [place] [address] Medication Refill Social History Tobacco Use Types Packs/Day Years Used Date Smoking Tobacco: Former Cigarettes 1 37.1 1 985 - 04/12/2021 Smokeless Tobacco: Never Alcohol Use Standard Drinks/Week Comments Not Currently 0 (1 standard drink = 0.6 oz pur e alcohol) last drank 2020 [facility] Utilities Answer Date Recorded In the past 12 months has [employer], gas, oil, or water [employer] threatened to shut off services in your home? No 03/24/2023 Social Connection and Isolation Panel Answer Date Recorded In a typical week, how many times do you talk on the phone with family, friends, or neighbors? Once a week 03/24/2023 How often do you get togethe r with friends or relatives? Never 03/24/2023 How often do you attend [facility] or adventist services? 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 file Not [...] Dept 03/26/23 Office Visit Rebeka Trinidad MD [facility] 03/19/23 Office Visit Rachelle Nava APRN, CNS [facility] Neurology [facility] 02/06/23 Office Visit Emilia Tang MD [facility] 11/06/22 Office Visit Emilia Tang MD [facility] 10/10/22 Office Visit Emilia Tang MD [facility] 09/16/22 Office Visit Rachelle Nava APRN, [facility] 09/06/22 Office Visit Emilia Tang MD [facility] 07/19/22 Office Visit Rachelle Nava APRN, [facility] 06/07/22 Office Visit Emilia Tang MD [facility] Showing recent visits within past 365 days and meeting all other requirements Future Appointments Date Type Provider Dept 06/19/23 Appointment Phil [facility] Showing future appointments within next 90 days and meeting all other requirements FOREMAN documented in this encounter Plan of Treatment Upcoming Encounters Date Type Department Care Team (Late st Contact Info) Description 02/21/2025 1:00 PM JOB FOREMAN Telemedicine [facility] [address] [place] [address] 02/21/2025 3:45 PM JOB FOREMAN Office Visit [facility] Medical [facility] - Endocrinology - [place] [address] [place] [address] David Salmon MD #[address] [address] 02/24/2025 3:30 PM JOB FOREMAN Telemedicine [facility] [address] [place] [address] Alize Acosta, HEEL EDGE INKER MACHINE, LOW PRESSURE BOILER OPERATOR [address] [place] [address] 03/04/2025 3:10 PM JOB FOREMAN [facility] [place] [address] [place] [address] 03/07/2025 2:15 PM JOB FOREMAN Office Visit [facility] Primary Care - [place] [address] [place] [address] Tani Biggs PAC [address] [place] [address] 03/17/2025 1:30 PM JOB FOREMAN [facility] [address] [place] [address] Melony Asif PAC [address] [place] [address] Discharge Disposition: Discharged to home or Selfcare 03/25/2025 1:20 PM JOB FOREMAN Office Visit [facility] Oncology Services [address] [place] [address] Melony Asif August, PAC [address] [facility] [place] [address] Discharge Disposition: Discharged to home or Selfcare 04/25/2025 2:00 PM JOB FOREMAN Office Visit [facility] - Cardiology - [place] [address] [place] [address] Laisha Griffin, DO [address] [address] 07/18/2025 1:00 PM CDT Office Visit [facility] Pulmonology & Sleep Medicine - [place] [address] [place] [address] Dom Quiñonez MD #[address] [place] [address] documented as of this encounter Goals Goal [...] making a change Department associated with goal: [facility] Steps to [...] diet Depression Depression Improving(0 03/15/2022 2:27 PM JOB FOREMAN) No Breanne Saldana LCSW Note: Goal/Objective: Decrease [...] 19 04/18/2024 04/18/2024 04/18/2024 10:4 7 PM JOB FOREMAN Respiratory Rule-Out 05/06/2024 05/06/2024 025 9:20 AM JOB FOREMAN COVID - 19 05/06/2024 05/06/2024 05/06/2024 9:19 AM JOB FOREMAN Assessment Noted Time PHQ-9 Depression Total Score: 18 023 9:24 AM CDT documented as of this encounter Care Teams Cardiac Technologist Relationship Specialty Start Date End Date Rebeka Trinidad MD [address] [place] [address] PCP - General Family Medicine 03/26/23 03/29/24 Lorri Leo APRN, LOW PRESSURE BOILER OPERATOR [address] [place] [address] PCP - General Certified Nurse Practitioner 03/30/24 04/20/24 Rebeka Trinidad MD [address] [place] [address] PCP - General Family Medicine 04/21/24 04/21/24 Lorri Leo APRN, LOW PRESSURE BOILER OPERATOR [address] [place] [address] PCP - General Certified Nurse Practitioner 04/22/24 05/30/24 Tani Biggs PAC [address] [place] [address] PCP - General Physician Child And Family Services Worker 05/31/24 Phil Jacobo MD #[address] [place] [address] Consulting Physician Neurology 03/07/21 Rajiv Mccormack NP #[address] [place] [address] Nurse Practitioner Gastroenterology 03/07/21 Alize Acosta APRN, LOW PRESSURE BOILER OPERATOR [address] [place] [address] Virtual Advanced Care (VAC) HISTORICAL ARCHEOLOGIST Advanced Practice Nurse 08/30/21 Dayo Chaney MD [address] [place] [address] Sailing Instructor Cardiovascular Disease - Cardiology 09/20/21 02/12/24 Juanita Mercado RN [place] Registered Nurse Cardiology 12/24/21 02/12/24 David Salmon MD #[address] [address] Consulting Physician Endocrinology 01/15/22 Maurilio Farley MD #[address] [address] Consulting Physician Colon and Rectal Surgery 09/20/22 Dom Quiñonez MD #[address] [place] [address] Consulting Physician Pulmonary Disease 11/19/21 Rachelle Nava APRN, B2B OUTSIDE SALES REPRESENTATIVE #[address] [place] [address] Nurse Practitioner Advanced Practice Nurse 07/19/22 Irais Naylor APRN, LOW PRESSURE BOILER OPERATOR #[address] [address] Nurse Practitioner Cardiology 06/27/23 07/29/24 Sharri Gaspar MD 2 [facility] [address] [address] Consulting Physician Cardiology 04/26/24 Amber Aldrich APRN, LOW PRESSURE BOILER OPERATOR [address] [place] [address] Nurse Practitioner Cardiology 07/30/24 documented as of this encounter
--- OUTSIDE RECORDS SUMMARY | 2025-02-04 11:13 | XMS_ITS | Encounter Summary ---
Author Organization [facility] Address [address] [place] [address] Phone Care Team Providers Care Digital Media Sales Consultant Name Role Phone Phil Jacobo MD Unavailable [phone] Rajiv Mccormack PHOTOTYPESETTER OPERATOR Unavailable Unavailable Alize Acosta APRN, FOOD CASHIER Unavailable [phone] Dayo Chaney MD Unavailable Juanita Hauser RN Unavailable UnavailDavid Alexandre MD Unavailable Maurilio Farley MD Unavailable Rebeka Trinidad MD Primary Care Provider + [phone] Dom Quiñonez MD Unavailable Rachelle Nava SCRAP HOOKER, AIRPORT LOCATION MANAGER Unavailable + [phone] Irais Naylor SCRAP HOOKER, FOOD CASHIER Unavailable + [phone] Lorri Leo SCRAP HOOKER, FOOD CASHIER Primary Care Provider + [phone] Rebeka Trinidad MD Primary Care Provider + [phone] Lorri Leo SCRAP HOOKER, FOOD CASHIER Primary Care Provider + [phone] Sharri Gaspar MD Unavailable Tani Biggs [facility] Primary Care Provider + [phone] Amber Aldrich APRN, CNP Unavailable Reason for Visit * Reason Comments Medication Refill Encounter Details Date Type Department Care Team (Late st Contact Info) Description 08/05/2023 Refill [facility] - Primary Care - [place] [address] [place] [address] Rebeka Trinidad MD [address] [place] [address] Medication Refill Social History Tobacco Use Types Packs/Day Years Used Date Smoking Tobacco: Former Cigarettes 1 37.1 1 985 - 04/12/2021 Smokeless Tobacco: Never Alcohol Use Standard Drinks/Week Comments Not Currently 0 (1 standard drink = 0.6 oz pur e alcohol) last drank [address] [facility] Utilities Answer Date Recorded In the past 12 months has 24h00, gas, oil, or water [employer] threatened to shut off services in your home? No 03/24/2023 Social Connection and Isolation Panel Answer Date Recorded In a typical week, how many times do you talk on the phone with family, friends, or neighbors? Once a week 03/24/2023 How often do you get togethe r with friends or relatives? Never 03/24/2023 How often do you attend [facility] or restorationist services? 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 file Not on file documented as of this encounter Functional Status * Question Answer Date of Assessment Author Best Eye Response 4-->(E4) spontaneous 08/06/2023 3:47 PM CDT Elena Barkley RN Best Verbal Response 5-->(V5) oriented 08/06/2023 3:47 PM CDT Elena Barkley RN Best Motor Response 6-->(M6) obeys commands 08/06/2023 3:47 PM CDT Elena Barkley RN Catherine Coma Scale Score 15 08/06/2023 3:47 PM CDT Elena Barkley RN * Question Answer Date of Assessment Author Pain Description aching 08/06/2023 5:55 PM CDT Brittany Alba RN * Chaidez Fall Risk Question Answer Date of Assessment Author History of Falling, Immediat e or Within 3 Months 0 08/06/2023 3:35 PM CDT Penny Braun RN Secondary Diagnosis 0 08/06/2023 3:35 PM CD T Penny Braun RN Ambulatory Aid 0 08/06/2023 3:35 PM CDT Penny Matamoros RN Intravenous Therapy/Heparin Lock 0 08/06/19 3:35 PM CDT Penny Braun RN Gait/Transferring 0 08/06/2023 3:35 PM CDT Penny Braun RN Mental Status 0 08/06/2023 3:35 PM CDT Penny Emanuel RN Morse Fall Risk Score 0 08/06/2023 3:35 PM CDT Penny Braun RN * Question Answer Date of Assessment Author SpO2 99 08/06/2023 4:30 PM CDT Brittany Hester RN O2 Device None (Room air) 08/06/2023 3:42 PM CDT Penny Wolfe RN * Safety Factors Answer Date of Assessment Author bed in low position;call light in reach 08/06/19 3:35 PM CDT Penny Braun RN * Question Answer Date of Assessment Author BP 106/75 08/06/2023 4:30 PM CDT Brittany Hester RN Temp 98.1 08/06/2023 3:42 PM CDT Penny Latham RN Pulse 94 08/06/2023 4:30 PM CDT Brittany Hester RN Resp 18 08/06/2023 3:42 PM CDT Penny Latham RN documented as of this encounter Mental Status * Question Answer Entry Date Author Best Eye Response 4-->(E4) spontaneous 3:47 PM CDT Elena Barkley RN Best Verbal Response 5-->(V5) oriented 3:47 PM CDT Elena Barkley RN Best Motor Response 6-->(M6) obeys commands 07/09 3:47 PM CDT Elena Barkley RN La Coma Scale Score 15 08/06/2023 3:47 PM CDT Elena Barkley RN * Question Answer Entry Date Author Pain Description aching 08/06/2023 5:55 PM CDT Brittany Alba RN * Question Answer Entry Date Author SpO2 99 08/06/2023 4:30 PM CDT Brittany Hester RN O2 Device None (Room air) 08/06/2023 3:42 PM CDT Penny Wolfe RN * Safety Factors Answer Entry Date Author bed in low position;call light in reach 08/06/19 3:35 PM CDT Penny Braun RN * Question Answer Entry Date Author BP 106/75 08/06/2023 4:30 PM CDT Brittany Hester RN Temp 98.1 08/06/2023 3:42 PM CDT Penny Latham RN Pulse 94 08/06/2023 4:30 PM CDT Brittany Hester RN documented in this encounter Miscellaneous Notes * [...] Dept 06/04/23 Office Visit Rebeka Trinidad MD [facility] 05/09/23 Office Visit Rebeka Trinidad MD [facility] 03/26/23 Office Visit Rebeka Trinidad MD [facility] 02/06/23 Office Visit Emilia Tang MD [facility] Showing recent visits within past 182 [...] st Contact Info) Description 02/21/2025 1:00 PM FAMILY PRACTICE NURSE PRACTITIONER Telemedicine [facility] [address] [place] [address] 02/21/2025 3:45 PM FAMILY PRACTICE NURSE PRACTITIONER [facility] - Endocrinology - [place] [address] [place] [address] David Salmon MD [address] [phone] 02/24/2025 3:30 PM FAMILY PRACTICE NURSE PRACTITIONER Telemedicine [facility] [address] [place] [address] Alize Acosta, SCRAP HOOKER, FOOD CASHIER [address] [place] [address] 03/04/2025 3:10 PM FAMILY PRACTICE NURSE PRACTITIONER [facility] [place] [address] [place] [phone] 03/07/2025 2:15 PM FAMILY PRACTICE NURSE PRACTITIONER Office Visit [facility] Primary Care - [place] [address] [place] [address] Tani Biggs, PAC [address] [place] [address] 03/17/2025 1:30 PM FAMILY PRACTICE NURSE PRACTITIONER [facility] [address] [place] [address] Melony Asif Stacey, PAC [address] [place] [address] Discharge Disposition: Discharged to home or Selfcare 03/25/2025 1:20 PM FAMILY PRACTICE NURSE PRACTITIONER [facility] [address] [place] [address] Melony Asif Stacey, PAC [address] [place] [address] Discharge Disposition: Discharged to home or Selfcare 04/25/2025 2:00 PM FAMILY PRACTICE NURSE PRACTITIONER [facility] [address] [place] [address] Laisha Griffin, DO [address] [address] 07/18/2025 1:00 PM CDT Office Visit [facility] - Pulmonology & Sleep Medicine [facility] [address] [place] [address] Dom Quiñonez MD [address] [place] [address] documented as of this encounter Goals Goal Patient Goal Type Associated Problems Recent Progress Patient-Stated? Author ACTIVITY Activity No change(08/08 2:42 PM CDT) Yes Maritza Vanegas RN Note: Bonny will walk five days a week. Goal Reviewed with: Bonny Readiness to change: Department associated with goal: [facility] Steps to achieve goal: Walking 5 days a week I want to be able to be around people and feel less depressed. Behavioral Health Worsening(0 09/22/2023 3:12 PM CDT) Yes Hilda Tinajero COMMUNICATIONS AGENT Note: Goal/Objective: Decrease symptoms of depression and anxiety. Anticipated Time Frame for Goal Completion: 3 months Goal Reviewed with: patient Readiness to change: Thinking about making a change Department associated with goal: [facility] Steps to [...] Depression Depression Improving(0 03/15/2022 2:27 PM FAMILY PRACTICE NURSE PRACTITIONER) No Breanne Saldana LCSW Note: Goal/Objective: Decrease [...] 04/18/2024 04/18/2024 04/18/2024 10:4 7 PM FAMILY PRACTICE NURSE PRACTITIONER Respiratory Rule-Out 05/06/2024 05/06/2024 025 9:20 AM FAMILY PRACTICE NURSE PRACTITIONER COVID - 19 05/06/2024 05/06/2024 05/06/2024 9:19 AM FAMILY PRACTICE NURSE PRACTITIONER Assessment Noted Time PHQ-9 Depression Total Score: 18 023 9:24 AM CDT documented as of this encounter Care Teams Digital Media Sales Consultant Relationship Specialty Start Date End Date Rebeka Trinidad MD [address] [place] [address] PCP - General Family Medicine 03/26/23 03/29/24 Lorri Leo APRN, FOOD CASHIER [address] [place] [address] PCP - General Certified Nurse Practitioner 03/30/24 04/20/24 Rebeka Trinidad MD [address] [place] [address] PCP - General Family Medicine 04/21/24 04/21/24 Lorri Leo SCRAP HOOKER, FOOD CASHIER [address] [place], [place] [id number] PCP - General Certified Nurse Practitioner 04/22/24 05/30/24 Tani Biggs PAC [address] [place] [address] PCP - General Physician Infrastructure Manager 05/31/24 Phil Jacobo MD [address] [place] [phone] Consulting Physician Neurology 03/07/21 Rajiv Mccormack, PHOTOTYPESETTER OPERATOR [address] [place] [address] Nurse Practitioner Gastroenterology 03/07/21 Alize Acosta, SCRAP HOOKER, FOOD CASHIER [address] [place] [address] Virtual [facility] (VAC) MANAGER GROCERY Advanced Practice Nurse 08/30/21 Dayo Chaney MD [address] [place] [address] Floor Refinisher Cardiovascular Disease - Cardiology 09/20/21 02/12/24 Juanita Mercado RN [place] Registered Nurse Cardiology 12/24/21 02/12/24 David Salmon MD [address] [phone] Consulting Physician Endocrinology 01/15/22 Maurilio Farley MD [address] [address] Consulting Physician Colon and Rectal Surgery 09/20/22 Dom Quiñonez MD [address] [place] [phone] Consulting Physician Pulmonary Disease 11/19/21 Rachelle Nava APRN, AIRPORT LOCATION MANAGER [address] [place] [address] Nurse Practitioner Advanced Practice Nurse 07/19/22 Irais Naylor APRN, FOOD CASHIER [address] [facility] [address] [address] Nurse Practitioner Cardiology 06/27/23 07/29/24 Sharri Gaspar MD [address] [facility] [address] [address] Consulting Physician Cardiology 04/26/24 Amber Aldrich APRN, FOOD CASHIER [address] [place] [address] Nurse Practitioner Cardiology 07/30/24 documented as of this encounter
--- OUTSIDE RECORDS SUMMARY | 2025-02-04 11:13 | XMS_ITS | Encounter Summary ---
Author Organization [facility] Address [address] [place] [address] Phone Care Team Providers Care Commercial Collections Driver Name Role Phone Jackeline Dimas CASE MANAGEMENT SOCIAL WORKER, PUSHER RUNNER Primary Care Provider Fiona Martinez ANTHROPOLOGY FACULTY MEMBER Unavailable Unavailab Phil Ellis MD Unavailable [phone] Rajiv Mccormack NP Unavailable Unavailable Renita Quezada RN Unavailable Unavailable Alize Acosta CASE MANAGEMENT SOCIAL WORKER, PUSHER RUNNER Unavailable +[phone] Dayo Chaney MD Unavailable Juanita Hauser RN Unavailable Unavaila David Martinez MD Unavailable Emilia Tang MD Primary Care Provider [phone] Maurilio Farley MD Unavailable Physician, Candida Davis MD Unavailable Rebeka Trinidad MD Primary Care Provider + [phone] Dom Quiñonez MD Unavailable Rachelle Nava CASE MANAGEMENT SOCIAL WORKER, CHIEF ENGINEER Unavailable + [phone] Irias Naylor CASE MANAGEMENT SOCIAL WORKER, PUSHER RUNNER Unavailable + [phone] Lorri Leo CASE MANAGEMENT SOCIAL WORKER, PUSHER RUNNER Primary Care Provider + [phone] Rebeka Triindad MD Primary Care Provider + [phone] Lorri Leo CASE MANAGEMENT SOCIAL WORKER, [facility] Primary Care Provider [phone] Sharri Gaspar MD Unavailable Tani Biggs Primary Care Provider + [phone] Yolie Aldrichareekaterina Farias CASE MANAGEMENT SOCIAL WORKER, [facility] Unavailable Reason for Visit * Reason Comments Medication Refill Encounter Details Date Type Department Care Team (Late Contact Info) Description 10/12/2020 Refill [facility] - Primary Care - [place] [address] [place] [address] Jackeline Dimas CASE MANAGEMENT SOCIAL WORKER, [facility] [address] [place] [address] Medication Refill Social History Tobacco [...] 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 [...] (Late Contact Info) Description 02/21/2025 1:00 PM PLANT RELIABILITY ENGINEER Telemedicine [facility] [address] [place] [address] 02/21/2025 3:45 PM PLANT RELIABILITY ENGINEER Office Visit [facility] - Endocrinology - [place] [address] [place] [phone] David Salmon MD [address] [phone] 02/24/2025 3:30 PM PLANT RELIABILITY ENGINEER Telemedicine [facility] [address] [place] [address] Alize Acosta, CASE MANAGEMENT SOCIAL WORKER, PUSHER RUNNER [address] [place] [address] 03/04/2025 3:10 PM PLANT RELIABILITY ENGINEER Lab [facility] - [place] [address] [place] [address] 03/07/2025 2:15 PM PLANT RELIABILITY ENGINEER Office Visit [facility] - Primary Care - [place] [address] [place] [address] Tani Biggs, PAC [address] [place] [address] 03/17/2025 1:30 PM PLANT RELIABILITY ENGINEER [facility] [address] [place] [address] Melony Asif, PAC [address] [place] [address] Discharge Disposition: Discharged to home or Selfcare 03/25/2025 1:20 PM PLANT RELIABILITY ENGINEER [facility] [address] [place] [address] Melony Asif, PAC [address] [place] [address] Discharge Disposition: Discharged to home or Selfcare 04/25/2025 2:00 PM PLANT RELIABILITY ENGINEER Office Visit [facility] - Cardiology - [place] [address] [place] [phone] Laisha Griffin, DO [address] [address] 07/18/2025 1:00 PM CDT Office Visit [facility] - Pulmonology & Sleep Medicine [facility] [address] [place] [phone] Dom Quiñonez MD [address] [place] [address] documented as of this encounter Visit Diagnoses Not on filedocumented in this encounter Additional Health Concerns Infection Onset Date Last Indicated Resolved Time COVID - 19 01/08/2021 01/08/2021 01/28/2021 12:1 6 AM PLANT RELIABILITY ENGINEER COVID - 19 03/12/2021 03/12/2021 04/01/2021 12:1 6 AM PLANT RELIABILITY ENGINEER COVID - 19 12/15/2021 12/15/2021 12/15/2021 7:26 PM CDT COVID - 19 Confirmed 12/15/2021 12/15/2021 022 12:16 AM CDT COVID - 19 04/18/2024 04/18/2024 04/18/2024 10:4 7 PM PLANT RELIABILITY ENGINEER Respiratory Rule-Out 05/06/2024 05/06/2024 025 9:20 AM PLANT RELIABILITY ENGINEER COVID - 19 05/06/2024 05/06/2024 05/06/2024 9:19 AM PLANT RELIABILITY ENGINEER Assessment Noted Time PHQ-9 Depression Total Score: 0 09/01/19 20 11:58 AM CDT documented as of this encounter Care Teams Commercial Collections Driver Relationship Specialty Start Date End Date Jackeline Dimas, CASE MANAGEMENT SOCIAL WORKER, PUSHER RUNNER [address] [place] [address] PCP - General Advanced Practice Nurse 07/31/17 Emilia Tang MD [address] [place] [address] PCP - General Family Medicine 06/07/22 03/25/23 Rebeka Trinidad MD [address] [place] [address] PCP - General Family Medicine 03/26/23 03/29/24 Lorri Leo APRN, PUSHER RUNNER [address] [place] [address] PCP - General Certified Nurse Practitioner 03/30/24 04/20/24 Rebeka Trinidad MD [address] [place] [address] PCP - General Family Medicine 04/21/24 04/21/24 Lorri Leo APRN, PUSHER RUNNER [address] [place] [address] PCP - General Certified Nurse Practitioner 04/22/24 05/30/24 Tani Biggs, PAC [address] [place] [phone] PCP - General Physician Ribbing Machine Operator 05/31/24 Fiona Martinez LSW [place] Sausage Cutter 03/01/21 08/23/21 Phil Jacboo MD [address] [place] [address] Consulting Physician Neurology 03/07/21 Rajiv Mccormack, DIRECTOR COLLEGE [address] [place] [address] Nurse Practitioner Gastroenterology 03/07/21 Renita Quezada RN [place] Sausage Cutter 05/09/21 08/23/21 Alize Acosta, CASE MANAGEMENT SOCIAL WORKER, PUSHER RUNNER [address] [place] [address] Virtual [facility] (VAC) PHOTO CHECKER AND ASSEMBLER Advanced Practice Nurse 08/30/21 Dayo Chaney MD [address] [place] [address] Wire Brush Maker Cardiovascular Disease - Cardiology 09/20/21 02/12/24 Juanita Mercado RN [place] Registered Nurse Cardiology 12/24/21 02/12/24 David Salmon MD #[address] [phone] Consulting Physician Endocrinology 01/15/22 Maurilio Farley MD #[address] [address] Consulting Physician Colon and Rectal Surgery 09/20/22 PhysicianCandida MD [address] [place], [place] [address] Family Medicine 01/25/22 03/18/23 Dom Quiñonez MD #[address] [place] [address] Consulting Physician Pulmonary Disease 11/19/21 Rachelle Nava APRN, CHIEF ENGINEER #[address] [place] [address] Nurse Practitioner Advanced Practice Nurse 07/19/22 Irais Naylor APRN, PUSHER RUNNER #2 ON LICENSE OF [facility] [address] [place] [address] Nurse Practitioner Cardiology 06/27/23 07/29/24 Sharri Gaspar MD [address] [place] [address] Consulting Physician Cardiology 04/26/24 Amber Aldrich APRN, PUSHER RUNNER [address] [place] [address] Nurse Practitioner Cardiology 07/30/24 documented as of this encounter
--- OUTSIDE RECORDS SUMMARY | 2025-02-04 11:14 | XMS_ITS | Encounter Summary ---
Author Organization [facility] Address [address] [place] [address] Phone Care Team Providers Care Stone Polisher Name Role Phone Phil Jacobo MD Unavailable [phone] Rajiv Mccormack SAFETY ADVISOR Unavailable Unavailable Alize Acosta METROLOGY TECHNICIAN, STUDENT LIFE VICE PRESIDENT Unavailable David Salmon MD Unavailable Maurilio Farley MD Unavailable Dom Quiñonez MD Unavailable Rachelle Nava METROLOGY TECHNICIAN, SEMIAUTOMATIC STITCHER OPERATOR Unavailable + [phone] Irais Naylor METROLOGY TECHNICIAN, STUDENT LIFE VICE PRESIDENT Unavailable + [phone] Rebeka Trinidad MD Primary Care Provider + [phone] Lorri Leo METROLOGY TECHNICIAN, STUDENT LIFE VICE PRESIDENT Primary Care Provider + [phone] Sharri Gaspar MD Unavailable Tani Biggs Primary Care Provider [phone] Amber Aldrich METROLOGY TECHNICIAN, STUDENT LIFE VICE PRESIDENT Unavailable Encounter Details Date Type Department Care Team (Late st Contact Info) Description 04/21/2024 Telephone [facility] - Cancer Center Oncology Services [address] [place] [phone] Melony Asif Stacey, PAC [address] [place] [address] Social History Tobacco Use Types Packs/Day Years Used Date Smoking Tobacco: Every Day Cigarettes 1 37.1 Started: 1984; Last attempted to quit: 04/12/2021 Smokeless Tobacco: Never Alcohol Use Standard Drinks/Week Comments Not Currently 0 (1 standard drink = 0.6 oz pur e alcohol) Last drink in 2020 [facility] Utilities Answer Date Recorded In the [...] often do you attend chur ch or scientologist services? 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 Not on file Not on file documented as of this encounter Functional Status * BP Answer Date of Assessment Author 110/70 04/23/2024 3:05 PM CONSTRUCTION CONSULTANT Nazia Tripp, GAS TURBINE ASSEMBLER * Temp Answer Date of Assessment Author 97.5 04/23/2024 3:05 PM CONSTRUCTION CONSULTANT Nazia Tripp, GAS TURBINE ASSEMBLER * Pulse Answer Date of Assessment Author 102 04/23/2024 3:05 PM CONSTRUCTION CONSULTANT Nazia Tripp, GAS TURBINE ASSEMBLER * Resp Answer Date of Assessment Author 16 04/23/2024 3:05 PM CONSTRUCTION CONSULTANT Nazia Tripp, GAS TURBINE ASSEMBLER * SpO2 Answer Date of Assessment Author 100 04/23/2024 3:05 PM CONSTRUCTION CONSULTANT Nazia Tripp, GAS TURBINE ASSEMBLER documented as of this encounter Mental Status * BP Answer Entry Date Author 110/70 04/23/2024 3:05 PM CONSTRUCTION CONSULTANT Nazia Tripp, GAS TURBINE ASSEMBLER * Temp Answer Entry Date Author 97.5 04/23/2024 3:05 PM CONSTRUCTION CONSULTANT Nazia Tripp, GAS TURBINE ASSEMBLER * Pulse Answer Entry Date Author 102 04/23/2024 3:05 PM CONSTRUCTION CONSULTANT Nazia Tripp, GAS TURBINE ASSEMBLER * SpO2 Answer Entry Date Author 100 04/23/2024 3:05 PM CONSTRUCTION CONSULTANT Nazia Tripp, GAS TURBINE ASSEMBLER documented in this encounter Miscellaneous Notes * Telephone Encounter - Kristen Katz - 04/21/2024 10:54 AM CST Patient called stating she has was concerned about her recent lab work and would like an earlier follow up with the physician kindergarten instructional assistant Melony Asif prior to her 06/04/24 appointment. I reached out to the patient after the PA reviewed her chart informing her to please complete ordered labs. The patient will contact the office to schedule a follow up 3-5 days after lab work. TRUCTION CONSULTANT documented in this encounter Plan of Treatment Upcoming Encounters Date Type Department Care Team (Late st Contact Info) Description 02/21/2025 1:00 PM CONSTRUCTION CONSULTANT Telemedicine [facility] [address] [place] [address] [phone] 02/21/2025 3:45 PM CONSTRUCTION CONSULTANT Office Visit [facility] Endocrinology [facility] [address] [place] [address] David Salmon MD #[address] [address] 02/24/2025 3:30 PM CONSTRUCTION CONSULTANT Telemedicine [facility] [place] [address] [place] [address] [phone] Alize Acosta, METROLOGY TECHNICIAN, STUDENT LIFE VICE PRESIDENT [address] [place] [address] 03/04/2025 3:10 PM CONSTRUCTION CONSULTANT Lab [facility] Primary Care - [place] [address] [place] [address] 03/07/2025 2:15 PM CONSTRUCTION CONSULTANT Office Visit [facility] Primary Care - [place] [address] [place] [address] Tani Biggs, ESTRELLITA [address] [place] [address] 03/17/2025 1:30 PM CONSTRUCTION CONSULTANT [facility] [address] [place] [address] Melony Asif August, PAC [address] [place] [address] Discharge Disposition: Discharged to home or Selfcare 03/25/2025 1:20 PM CONSTRUCTION CONSULTANT Office Visit [facility] Cancer Center Oncology Services [address] [facility] [place] [address] Melony Asif Stacey, PAC [address] [place] [address] Discharge Disposition: Discharged to home or Selfcare 04/25/2025 2:00 PM CONSTRUCTION CONSULTANT Office Visit [facility] - Cardiology - [place] [address] [place] [address] Laisha Griffin, DO [address] [address] 07/18/2025 1:00 PM CDT Office Visit [facility] - Pulmonology & Sleep Medicine [facility] [address] [place] [address] Dom Quiñonez MD [address] [place] [address] documented as of this encounter Goals Goal [...] a change Department associated with goal: [facility] Steps to [...] Depression Depression Improving(0 03/15/2022 2:27 PM CONSTRUCTION CONSULTANT) No Breanne Saldana LCSW Note: Goal/Objective: [...] Rule-Out 05/06/2024 05/06/2024 025 9:20 AM CONSTRUCTION CONSULTANT COVID - 19 05/06/2024 05/06/2024 05/06/2024 9:19 AM CONSTRUCTION CONSULTANT Assessment Noted Time PHQ-9 Depression Total Score: 19 025 1:00 PM CONSTRUCTION CONSULTANT documented as of this encounter Care Teams Stone Polisher Relationship Specialty Start Date End Date Rebeka Trinidad MD [address] [place], [place] [id number] PCP - General Family Medicine 04/21/24 04/21/24 Lorri Leo APRN, STUDENT LIFE VICE PRESIDENT [address] [place], [place] [id number] PCP - General Certified Nurse Practitioner 04/22/24 05/30/24 Tani Biggs, PAC [address] [place] [address] PCP - General Physician Manager Labor Relations 05/31/24 Phil Jacobo MD [address] [place] [address] Consulting Physician Neurology 03/07/21 Rajiv Mccormack, SAFETY ADVISOR [address] [place] [address] Nurse Practitioner Gastroenterology 03/07/21 Alize Acosta APRN, STUDENT LIFE VICE PRESIDENT [facility] [place] [address] Virtual Advanced Care (VAC) PHOTOGRAPHER PORTRAIT Advanced Practice Nurse 08/30/21 David Salmon MD #[address] [address] Consulting Physician Endocrinology 01/15/22 Maurilio Farley MD #[address] [address] Consulting Physician Colon and Rectal Surgery 09/20/22 Dom Quiñonez MD #[address] [place] [address] Consulting Physician Pulmonary Disease 11/19/21 Rachelle Nava, METROLOGY TECHNICIAN, SEMIAUTOMATIC STITCHER OPERATOR [address] [place] [address] Nurse Practitioner Advanced Practice Nurse 07/19/22 Irais Naylor, METROLOGY TECHNICIAN, STUDENT LIFE VICE PRESIDENT #[address] [address] Nurse Practitioner Cardiology 06/27/23 07/29/24 Sharri Gaspar MD 2 [facility] [address] [address] Consulting Physician Cardiology 04/26/24 Amber Aldrich APRN, STUDENT LIFE VICE PRESIDENT [address] [place] [address] Nurse Practitioner Cardiology 07/30/24 documented as of this encounter
--- OUTSIDE RECORDS SUMMARY | 2025-02-04 11:14 | XMS_ITS | Encounter Summary ---
Author Organization [facility] Address [address] [place] [address] Phone Care Team Providers Care Wet Mix Operator Name Role Phone Jackeline Dimas CARPENTER REFRIGERATOR, CONTAINER PACKER OPERATOR Primary Care Provider Phil Jacobo MD Unavailable [phone] Rajiv Mccormack NP Unavailable Unavailable Alize Acosta CARPENTER REFRIGERATOR, CONTAINER PACKER OPERATOR Unavailable [phone] Dayo Chaney MD Unavailable Juanita Hauser RN Unavailable UnavailDavid Alexandre MD Unavailable Emilia Tang MD Primary Care Provider [phone] Maurilio Farley MD Unavailable Physician, Candida Davsi MD Unavailable Rebeka Trinidad MD Primary Care Provider + [phone] Dom Quiñonez MD Unavailable Rachelle Nava CARPENTER REFRIGERATOR, CARDIOVASCULAR SPECIALIST Unavailable + [phone] Irais Naylor CARPENTER REFRIGERATOR, CONTAINER PACKER OPERATOR Unavailable + [phone] Lorri Leo CARPENTER REFRIGERATOR, CONTAINER PACKER OPERATOR Primary Care Provider + [phone] Rebeka Trinidad MD Primary Care Provider + [phone] Lorri Leo CARPENTER REFRIGERATOR, [facility] Primary Care Provider + [phone] Sharri Gaspar MD Unavailable Tani Biggs [facility] Primary Care Provider + [phone] Amber Aldrich CARPENTER REFRIGERATOR, [facility] Unavailable Reason for Visit * Reason Comments Medication Refill Encounter Details Date Type Department Care Team (Late st Contact Info) Description 03/30/2022 Refill [facility] - Primary Care - [place] [address] [place] [address] Jackeline Dimas APRN, [facility] [address] [place] [address] Medication Refill Social History Tobacco [...] 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 No / Unsure 04/01/2022 1:[address] LIGHT LAMP CLEANER documented as of this encounter Miscellaneous Notes * Telephone Encounter - Indira Lopez RN - 04/01/2022 8:[address] LIGHT LAMP CLEANER Refill requested too soon. ET LIGHT LAMP CLEANER documented in this encounter Plan of Treatment Upcoming Encounters Date Type Department Care Team (Late st Contact Info) Description 02/21/2025 1:[address] LIGHT LAMP CLEANER Telemedicine [facility] [address] [place] [address] 02/21/2025 3:[address] LIGHT LAMP CLEANER Office Visit [facility] Endocrinology [facility] [address] [place] [address] David Salmon MD #[address] [address] 02/24/2025 3:[address] LIGHT LAMP CLEANER [facility] [address] [place] [address] Alize Acosta, CARPENTER REFRIGERATOR, CONTAINER PACKER OPERATOR [address] [place] [address] 03/04/2025 3:[address] LIGHT LAMP CLEANER [facility] [place] Wil[place] [place] [address] 03/07/2025 2:[address] LIGHT LAMP CLEANER Office Visit [facility] Primary Care - [place] [address] [place] [address] Tani Biggs, ESTRELLITA [address] [place] [address] 03/17/2025 1:[address] LIGHT LAMP CLEANER [facility] [address] [place] [address] Melony Asif PAC [address] [place] [address] Discharge Disposition: Discharged to home or Selfcare 03/25/2025 1:[address] LIGHT LAMP CLEANER Office Visit [facility] Cancer Center Oncology Services [address] [place] [address] Melony Asif Stacey, PAC [address] [place] [address] Discharge Disposition: Discharged to home or Selfcare 04/25/2025 2:[address] LIGHT LAMP CLEANER Office Visit [facility] Cardiology - [place] [address] [place] [address] Laisha Griffin, DO [address] [address] 07/18/2025 1:00 PM CDT Office Visit [facility] Pulmonology & Sleep Medicine [facility] [address] [place] [address] Dom Quiñonez MD [address] [place] [address] documented as of this encounter Goals Goal [...] as recommended. Depression Depression Improving( 2:[address] LIGHT LAMP CLEANER) No Breanne Saldana, DIVISION SERGEANT Note: Goal/Objective: Decrease symptoms of depression associated [...] 19 04/18/2024 04/18/2024 04/18/2024 10:[address] LIGHT LAMP CLEANER Respiratory Rule-Out 05/06/2024 05/06/2024 025 9:[address] LIGHT LAMP CLEANER COVID - 19 05/06/2024 05/06/2024 05/06/2024 9:[address] LIGHT LAMP CLEANER Assessment Noted Time PHQ-9 Depression Total Score: 24 022 3:[address] LIGHT LAMP CLEANER documented as of this encounter Care Teams Wet Mix Operator Relationship Specialty Start Date End Date Jackeline Dimas, CARPENTER REFRIGERATOR, CONTAINER PACKER OPERATOR [address] [place] [address] PCP - General Advanced Practice Nurse 07/31/17 Emilia Tang MD [address] [place] [address] PCP - General Family Medicine 06/07/22 03/25/23 Rebeka Trinidad MD [address] [place] [address] PCP - General Family Medicine 03/26/23 03/29/24 Lorri Leo APRN, CONTAINER PACKER OPERATOR [address] [place] [address] PCP - General Certified Nurse Practitioner 03/30/24 04/20/24 Rebeka Trinidad MD [address] [place] [address] PCP - General Family Medicine 04/21/24 04/21/24 Lorri Leo APRN, CONTAINER PACKER OPERATOR [address] [place] [address] PCP - General Certified Nurse Practitioner 04/22/24 05/30/24 Tani Biggs PAC [address] [place] [address] PCP - General Physician Dry Paste Supervisor 05/31/24 Phil Jacobo MD [address] [place] [address] Consulting Physician Neurology 03/07/21 Rajiv Mccormack, CASTABLES WORKER [address] [place] [address] Nurse Practitioner Gastroenterology 03/07/21 Alize Acosta APRN, CONTAINER PACKER OPERATOR [address] [place] [address] Virtual Advanced Care (VAC) HVAC TECHNICIAN RESIDENTIAL Advanced Practice Nurse 08/30/21 Dayo Chaney MD [address] [place] [address] Radio Disc Jockey Cardiovascular Disease - Cardiology 09/20/21 02/12/24 Juanita Mercado RN [place] Registered Nurse Cardiology 12/24/21 02/12/24 David Salmon MD #[address] [address] Consulting Physician Endocrinology 01/15/22 Maurilio Farley MD #[address] [address] Consulting Physician Colon and Rectal Surgery 09/20/22 Physician, Candida Davis MD [address] [place] [address] Family Medicine 01/25/22 03/18/23 Dom Quiñonez MD #[address] [place] [address] Consulting Physician Pulmonary Disease 11/19/21 Rachelle Nava APRN, CARDIOVASCULAR SPECIALIST #[address] [place] [address] Nurse Practitioner Advanced Practice Nurse 07/19/22 Irais Naylor APRN, CONTAINER PACKER OPERATOR #[address] [address] Nurse Practitioner Cardiology 06/27/23 07/29/24 Sharri Gaspar MD 2 [facility] [address] [facility]. [address] [place] [address] Consulting Physician Cardiology 04/26/24 Amber Aldrich APRN, CONTAINER PACKER OPERATOR [address] [place] [address] Nurse Practitioner Cardiology 07/30/24 documented as of this encounter
--- OUTSIDE RECORDS SUMMARY | 2025-02-04 11:14 | XMS_ITS | Encounter Summary ---
Author Organization [facility] Address [address] [place] [address] Phone Care Team Providers Care Garbage Truck Driver Name Role Phone Jackeline Dimas REMEDIAL MASSEUR, FOUNDER AND CHIEF EXECUTIVE OFFICER Primary Care Provider Phil Jacobo MD Unavailable [phone] Rajiv Mccormack NP Unavailable Unavailable Alize Acosta REMEDIAL MASSEUR, FOUNDER AND CHIEF EXECUTIVE OFFICER Unavailable Dayo Chaney MD Unavailable Juanita Hauser RN Unavailable UnavailDavid Alexandre MD Unavailable Emilia Tang MD Primary Care Provider [phone] Maurilio Farley MD Unavailable Physician, Candida Davis MD Unavailable Rebeka Trinidad MD Primary Care Provider + [phone] Dom Quiñonez MD Unavailable Rachelle Nava REMEDIAL MASSEUR, SHOP ESTIMATOR Unavailable + [phone] Irais Naylor REMEDIAL MASSEUR, FOUNDER AND CHIEF EXECUTIVE OFFICER Unavailable + [phone] Lorri Leo REMEDIAL MASSEUR, FOUNDER AND CHIEF EXECUTIVE OFFICER Primary Care Provider + [phone] Rebeka Trinidad MD Primary Care Provider + [phone] Lorri Leo REMEDIAL MASSEUR, [facility] Primary Care Provider + [phone] Sharri Gaspar MD Unavailable Tani Biggs [facility] Primary Care Provider [phone] Amber Aldrich APRN, [facility] Unavailable Reason for Visit * Reason Onset Date Comments Medication Refill 04/19/2022 Encounter Details Date Type Department Care Team (Late st Contact Info) Description 04/19/2022 Refill [facility] Advanced Care [address] [place] [address] Meli Rosenthal RN [place] Medication Refill Social History Tobacco [...] 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 No / Unsure 04/11/2022 12:32 PM FORESTER SILVICULTURE documented as of this encounter Miscellaneous Notes * Telephone Encounter - Meli Rosenthal, RN - 04/19/2022 4:27 PM FORESTER SILVICULTURE Patient requesting refill of hydroxyzine 25mg. Last filled on 03/23/22 for #60 with 0 refills. Last routine visit: 04/11/22 with [facility]/testin02/23/22 Upcoming visits: none currently scheduled with [facility] REMEDIAL MASSEUR Refill pending for your review and approval. All questions and concerns were answered. Will await recommendations. STER SILVICULTURE documented in this encounter Plan of Treatment Upcoming Encounters Date Type Department Care Team (Late st Contact Info) Description 02/21/2025 1:00 PM FORESTER SILVICULTURE Telemedicine [facility] [address] [place] [address] 02/21/2025 3:45 PM FORESTER SILVICULTURE Office Visit [facility] [address] [place] [address] David Salmon MD #[address] [address] 02/24/2025 3:30 PM FORESTER SILVICULTURE Telemedicine [facility] [address] [place] [address] Alize Acosta APRN, FOUNDER AND CHIEF EXECUTIVE OFFICER [address] [place] [address] 03/04/2025 3:10 PM FORESTER SILVICULTURE Lab [facility] Primary Care - [place] [address] [place] [address] 03/07/2025 2:15 PM FORESTER SILVICULTURE Office Visit [facility] Primary Care - [place] [address] [place] [address] Tani Biggs PAC [address] [place] [address] 03/17/2025 1:30 PM FORESTER SILVICULTURE [facility] [address] [place] [address] Melony Asif August, PAC [address] [place] [address] Discharge Disposition: Discharged to home or Selfcare 03/25/2025 1:20 PM FORESTER SILVICULTURE [facility] [address] [place] [address] Melony Asif Stacey, PAC [address] [place] [address] Discharge Disposition: Discharged to home or Selfcare 04/25/2025 2:00 PM FORESTER SILVICULTURE Office Visit [facility] - Cardiology - [place] [address] [place] [address] Laisha Griffin, DO [address] [address] 07/18/2025 1:00 PM CDT Office Visit [facility] - Pulmonology & Sleep Medicine [facility] #[address] [place] [address] Dom Quiñonez MD #[address] [place] [address] documented as of this encounter Goals Goal [...] as recommended. Depression Depression Improving( 2:27 PM FORESTER SILVICULTURE) No Breanne Saldana, SANDEEP Note: Goal/Objective: Decrease [...] 19 04/18/2024 04/18/2024 04/18/2024 10:4 7 PM FORESTER SILVICULTURE Respiratory Rule-Out 05/06/2024 05/06/2024 025 9:20 AM FORESTER SILVICULTURE COVID - 19 05/06/2024 05/06/2024 05/06/2024 9:19 AM FORESTER SILVICULTURE Assessment Noted Time PHQ-9 Depression Total Score: 24 022 3:31 PM FORESTER SILVICULTURE documented as of this encounter Care Teams Garbage Truck Driver Relationship Specialty Start Date End Date Jackeline Dimas, REMEDIAL MASSEUR, FOUNDER AND CHIEF EXECUTIVE OFFICER [address] [place] [address] PCP - General Advanced Practice Nurse 07/31/17 Emilia Tang MD [address] [place] [address] PCP - General Family Medicine 06/07/22 03/25/23 Rebeka Trinidad MD [address] [place] [address] PCP - General Family Medicine 03/26/23 03/29/24 Lorri Leo REMEDIAL MASSEUR, FOUNDER AND CHIEF EXECUTIVE OFFICER [address] [place] [address] PCP - General Certified Nurse Practitioner 03/30/24 04/20/24 Rebeka Trinidad MD [address] [place] [address] PCP - General Family Medicine 04/21/24 04/21/24 Lorri Leo REMEDIAL MASSEUR, FOUNDER AND CHIEF EXECUTIVE OFFICER [address] [place] [address] PCP - General Certified Nurse Practitioner 04/22/24 05/30/24 Tani Biggs, PAC [address] [place] [address] PCP - General Physician Rap Artist 05/31/24 Phil Jacobo MD [address] [place] [address] Consulting Physician Neurology 03/07/21 Rajiv Mccormack, KELI [address] [place] [address] Nurse Practitioner Gastroenterology 03/07/21 Alize Acosta, REMEDIAL MASSEUR, FOUNDER AND CHIEF EXECUTIVE OFFICER [address] [place] [address] Virtual Advanced Care (VAC) GARMENT TAG STRINGER Advanced Practice Nurse 08/30/21 Dayo Chaney MD [address] [place] [address] Industrial Safety And Health Specialist Cardiovascular Disease - Cardiology 09/20/21 02/12/24 Juanita Mercado RN [place] Registered Nurse Cardiology 12/24/21 02/12/24 David Salmon MD #[address] [address] Consulting Physician Endocrinology 01/15/22 Maurilio Farley MD #[address] [address] Consulting Physician Colon and Rectal Surgery 09/20/22 Physician, Candida Davis MD [address] [place] [address] Family Medicine 01/25/22 03/18/23 Dom Quiñonez MD #[address] [place] [address] Consulting Physician Pulmonary Disease 11/19/21 Rachelle Nava, REMEDIAL MASSEUR, SHOP ESTIMATOR #[address] [place] [address] Nurse Practitioner Advanced Practice Nurse 07/19/22 Irais Naylor APRN, FOUNDER AND CHIEF EXECUTIVE OFFICER #2 [facility] [address] [place] [address] Nurse Practitioner Cardiology 06/27/23 07/29/24 Sharri Gaspar MD 2 [facility] [address] [facility] [place] [address] [place] [address] Consulting Physician Cardiology 04/26/24 Amber Aldrich APRN, FOUNDER AND CHIEF EXECUTIVE OFFICER #2 [facility] [place] [address] Nurse Practitioner Cardiology 07/30/24 documented as of this encounter
== END 2025-02-04 11:09 | disposition home or self-care (01) ==
PROVIDERS: PCP Physician Assistant; Visit Provider Neurological Surgery
DX: Z98.1 Arthrodesis status (principal)
CPT/HCPCS: 72100